=== PATIENT | female | born 1955 | race Caucasian/White ===

== ENCOUNTER → 2020-03-07 09:16 | Outpatient (CLI) | payer SELFPAY ==
--- NOTE | 2020-03-07 09:31 | RAD_ITS ---
EXAMINATION: UPPER GI SERIES INDICATION: Female, 64 years dysphagia. Recent thyroidectomy. FLUOROSCOPY TIME (if supplied): (0:41) minutes/seconds TECHNIQUE: Radiographic and fluoroscopic images of the distal esophagus, stomach, and proximal small intestine were obtained following the oral ingestion of barium. COMPARISON: None. FINDINGS: There is no evidence for organomegaly, abnormal calcifications, or abnormal bowel gas pattern. The psoas margins and flank stripes are normal. The patient is status post fusion in the lower cervical spine. The mucosa of the esophagus, stomach and duodenum is normal in appearance without evidence for stricture, ulceration, mass or diverticulum. There is no evidence for hiatal hernia or gastroesophageal reflux. IMPRESSION: 1. Normal upper gastrointestinal study. Electronically Signed: Alberto Huston, at 12:42 EST , Service support , STUDY: X-RAY - ESOPHAGUS (BARIUM SWALLOW) WITH FLUOROSCOPY REASON FOR EXAM: Female, 64 years old. THYROIDECTOMY 1 YR AGO, HAS TIGHT FEELING WHEN SWALLOWING LIQUIDS AND FOODS, DIFFICULT TO CLEAR THROAT AFTER TECHNIQUE: 6 view(s) of the esophagus were obtained following swallowing of barium. FLUOROSCOPY TIME (if supplied): (0:01) minutes/seconds COMPARISON: None. FINDINGS: There is no demonstrated esophageal foreign body. There is no demonstrated stricture or mucosal abnormality. Normal gastroesophageal junction, without a demonstrated hiatal hernia. Normal visualized aortic arch and descending thoracic aorta. Normal visualized pulmonary parenchyma. Normal visualized osseous structures of the thorax. RAD/Upper GI w/BA Swallow IMPRESSION: Normal plain film x-ray examination (barium swallow) of the esophagus. Electronically Signed: Alberto Huston, at 12:42 EST , Service support ,
== END ==
PROVIDERS: PCP Nurse Practitioner; Referring Provider Nurse Practitioner; Visit Provider Nurse Practitioner
DX: R05 Cough (principal)
CPT/HCPCS: 74246

== ENCOUNTER → 2020-05-04 18:21 | Outpatient (CLI) | payer SELFPAY ==
--- NOTE | 2020-05-04 18:27 | US_ITS ---
STUDY: SOFT TISSUE ULTRASOUND : REASON FOR EXAM: Female, 64 years old. NECK MASS BELOW AREA OF SCAR- S/P THYROIDECTOMY TECHNIQUE: Real-time exam with harris scale image documentation. COMPARISON: None. FINDINGS: No visualized thyroid tissue. In the left paratracheal area, thyroid fossa there is a 1.2 x 0.7 x 0.8 cm nonvascular solid nodule. US/Head/Neck Soft Tissue IMPRESSION: Solid 1.2 x 0.7 x 0.8 cm nonvascular nodule in the bed of the left thyroid status post thyroidectomy. No cystic component, calcification or other distinguishing features. Does not appear to have normal lymph node anatomy. Electronically Signed: Lisa Ng MD at 20:29 EST , Service support ,
== END ==
PROVIDERS: PCP Nurse Practitioner; Referring Provider Otolaryngology; Visit Provider Otolaryngology
DX: R22.1 Localized swelling, mass and lump, neck (principal)
CPT/HCPCS: 76536

== ENCOUNTER 2020-07-05 10:50 | Outpatient (RCR) | payer MEDICARE, SELFPAY ==
[2020-07-05] MEDS: COVID-19 VACC, MRNA(PFIZER)/PF 30 MCG/0.3 ML SYRINGE IM (15:30)
[2020-07-26] MEDS: COVID-19 VACC, MRNA(PFIZER)/PF 30 MCG/0.3 ML SYRINGE IM (15:00)
== END 2020-07-05 23:59 ==
LOC: IMMUN 10:50
PROVIDERS: PCP Nurse Practitioner; Visit Provider Family Medicine
DX: Z23 Encounter for immunization (principal)
CPT/HCPCS: 0001A; 0002A; 91300

== ENCOUNTER 2021-10-12 14:49 | Emergency (ER) | payer SELFPAY ==
[2021-10-12 14:50] VITALS: BP 158/106; PULSE 77; RESP 16; TEMP 36.6; O2SAT 98; BMI 21.9
[2021-10-12] MEDS: 0.9% Normal Saline 1,000 ML 1000 ML IV (16:11)
[2021-10-12] MEDS: DiphenhydrAMINE 50 MG/ML Syringe 25 MG IV (16:11)
[2021-10-12] MEDS: Ketorolac 30 MG/ML Syringe IV (16:11)
[2021-10-12] MEDS: Metoclopramide 10 MG/2 ML Vial IV (16:12)
[2021-10-12 16:27] LABS: Absolute Lymphocyte Count 0.46 X10^3/uL (0.83-4.51); Absolute Neutrophil Count 3.7 X10^3/uL (2.0-7.7); Basophil# 0.02 X10^3/uL; Basophil% 0.4 % (0-1); Hematocrit 39.8 % (37-47); Hemoglobin 13.5 g/dL (12.0-15.0); Lymphocyte # 0.46 X10^3/ul (0.83-4.51); Lymphocyte % 9.5 % (19-41); Mean Corp Hgb Conc 33.9 g/dL (32-36); Mean Corpuscular Hgb 31.5 pg (27.0-32.0); Mean Platelet Vol. 10.7 fl (6.2-12.0); Monocyte# 0.62 X10^3/uL; Monocyte% 12.8 % (0-10); NRBC Flagged by Analyzer 0 % (0-5); Neutrophil # 3.72 X10^3/uL (2.7-7.7); Neutrophil % 76.7 % (47-70); POSITIVE DIFFERENTIAL YES; Platelet Count 181 K/mm3 (150-450); RBC Distribution Width CV 12.1 % (11.6-14.6); RBC Distribution Width SD 41.5 fl (35.1-43.9); Red Blood Count 4.28 M/mm3 (4.2-5.4); White Blood Count 4.9 K/mm3 (4.4-11.0)
[2021-10-12 16:39] LABS: Differential Indicated SCAN CRITERIA MET
[2021-10-12 16:46] LABS: AST(SGOT) 21 U/L (15-37); Alanine Aminotransfer ALT/SGPT 26 U/L (13-56); Alkaline Phosphatase 74 U/L (45-117); Anion Gap 9 (5-15); BUN 10 mg/dL (7-18); BUN/Creat Ratio 12.3 RATIO (10-20); Bilirubin, Direct 0.14 mg/dL (0.00-0.30); Calcium,Total 8.3 mg/dL (8.5-10.1); Chloride 101 mmol/L (98-107); Creatinine, Serum 0.82 mg/dL (0.55-1.02); EST Glomerular Filtration Rate 75 mL/min (>60); Est Glom Filt Rate - Afr Amer 91 mL/min (>60); Estimated Creatinine Clearance 54.82 ml/min; Globulin 3.4 g/dL (2.2-4.2); Glucose 115 mg/dL (74-106); Potassium 3.6 mmol/L (3.5-5.1); Protein, Total 7.4 g/dL (6.4-8.2); Sodium Level 134 mmol/L (136-145)
--- NOTE | 2021-10-12 17:11 | EX.ED.DYSGE1 ---
HPI History of Present Illness Chief Complaint: Nausea/Vomiting Informant: patient Onset/Context/Timing Onset: Yesterday Context: Gradual Onset Current Severity: Mild Maximum Severity: Moderate Narrative Narrative: Patient presents with nausea and vomiting as well as muscle cramps. She tested positive for COVID yesterday after waking yesterday morning with mild symptoms. They progressed throughout the day. Her had been diagnosed with COVID earlier in the week. She states her doctor called in a prescription for Paxlovid. After taking the first dose she developed nausea and vomiting. She complains of a headache and myalgias. She has had a temperature up to mid 99 range. No diarrhea. [facility] Medical History Anxiety Back pain Breast lump GERD (gastroesophageal reflux disease) Headache Hyperlipidemia Hypernatremia Hypertension Hypoglycemia IBS (irritable bowel syndrome) Postoperative primary hypothyroidism Seasonal allergies UTI (urinary tract infection) Home Medications cholecalciferol (vitamin D3) 25 mcg (1,000 unit) capsule 25 mcg PO DAILY 10/25/20 [History Last Taken Unknown] diphenhydramine HCl 25 mg tablet (Benadryl Allergy) 25 mg PO .prn PRN Headache 10/25/20 [History Last Taken Unknown] gabapentin 300 mg capsule 300 mg PO QHS 10/25/20 [History Last Taken Unknown] ibuprofen 400 mg tablet 400 mg PO Q8H PRN Pain 10/25/20 [History Last Taken Unknown] levothyroxine 88 mcg tablet 88 mcg PO DAILY 10/25/20 [History Last Taken Unknown] trazodone 50 mg tablet 150 mg PO QHS 10/25/20 [History Last Taken Unknown] alprazolam 0.5 mg tablet (Xanax) 0.5 mg PO .as needed for flying #7 tabs 12/14/20 [Rx Last Taken Unknown] losartan 25 mg tablet 25 mg PO DAILY #30 tabs 06/26/21 [Rx Last Taken Unknown] benzonatate 200 mg capsule 200 mg PO TID PRN cough #30 caps 08/11/21 [Rx Last Taken Unknown] Allergy/AdvReac Type Severity Reaction Status Date / Time amoxicillin [From Augmentin] AdvReac Intermediate diarrhea Verified 10/12/21 14:52 clavulanic acid AdvReac Intermediate diarrhea Verified 10/12/21 14:52 [From Augmentin] Family History Grandmother Anxiety Diabetes High cholesterol CVA (cerebral vascular accident) Mother Cancer Father Depression Hypertension Kidney disease Sister Depression Hypertension Brother Depression Aunt Ovarian cancer Grandfather Myocardial infarction Surgical History H/O dilation and curettage H/O removal of cyst H/O shoulder surgery H/O spinal fusion H/O thyroidectomy Social History Smoking Status: Never smoker alcohol intake: current alcohol intake frequency: a few times a week substance use type: does not use what type of physical activity do you participate in: walking ROS ROS ED Constitutional Constitutional ED: Denies chills or fever(s) Eyes Eyes: Denies change in vision or discharge from eye(s) ENT ENT ED: Denies discharge from eye(s), rhinorrhea or sore throat Cardiovascular Cardiovascular: Denies chest pain or palpitations Respiratory/Chest Respiratory/Chest: Reports cough; Denies dyspnea Gastrointestinal Gastrointestinal: Reports nausea and vomiting; Denies diarrhea Genitourinary Genitourinary ED: Denies difficulty urinating or dysuria Musculoskeletal Musculoskeletal: Reports myalgias Integumentary Denies Abrasions or rash Neurologic Neurologic: Reports headache(s) and weakness Allergic/Immunologic Allergic/Immunologic ED: Denies lip swelling or urticaria EXAM Physical Exam Const Vital Signs: 10/12/21 14:50 Temperature 97.9 F Temperature Source Temporal Pulse Rate 77 Respiratory Rate 16 Blood Pressure 158/106 H Blood Pressure Mean 123 Pulse Ox 98 Oxygen Delivery Method Room Air Positive well nourished and well developed General Appearance ED: well developed HEENT Reports normocephalic and head/scalp atraumatic Eyes PERRL and EOMs intact bilaterally Neck supple Chest Wall inspection of chest normal and palpation of chest normal Resp normal respiratory effort and clear to auscultation bilaterally Cardio regular rate and regular rhythm GI non-tender and non-distended Auscultation: hypoactive bowel sounds Palpation: soft Extremity normal to inspection Neuro oriented x3 and no sensory deficits noted Sensorium / Orientation: alert Motor Exam: strength 5/5 throughout Psych mental status grossly normal Skin no rashes or lesions noted MDM MDM MDM Narrative Medical decision making narrative: Patient given IV fluids along with Toradol, Reglan, Benadryl. Lab work obtained. Lab Data Attestation: I reviewed the patient's lab results. Labs: Laboratory Results - last 24 hr 10/12/21 10/12/21 16:18 16:18 WBC 4.9 RBC 4.28 Hgb 13.5 Hct 39.8 MCV 93.0 MCH 31.5 MCHC 33.9 RDW Std Deviation 41.5 RDW Coeff of Kaitlynn 12.1 Plt Count 181 MPV 10.7 Immature Gran % (Auto) 0.600 Neut % (Auto) 76.7 H Lymph % (Auto) 9.5 L [place]yenne % (Auto) 12.8 H Eos % (Auto) 0.0 Baso % (Auto) 0.4 Absolute Neuts (auto) 3.7 Absolute Lymphs (auto) 0.46 L Nucleated RBC % 0 Differential Comment SCANNED Sodium 134 L Potassium 3.6 Chloride 101 Carbon Dioxide 24.0 Anion Gap 9 BUN 10 Creatinine 0.82 Estim Creat Clear Calc 54.82 Est GFR (MDRD) Af Amer 91 Est GFR (MDRD) Non-Af 75 BUN/Creatinine Ratio 12.3 Glucose 115 H Calcium 8.3 L Total Bilirubin 0.30 Direct Bilirubin 0.14 AST 21 ALT 26 Alkaline Phosphatase 74 Total Protein 7.4 Albumin 4.0 Globulin 3.4 Treatment and Re-Evaluation Narrative: On repeat evaluation patient reports feeling much improved. Lab work is unremarkable. She has Zofran at home that she can use as needed for nausea. She states she does not plan to take Paxlovid any further. She will continue with supportive care and return instructions are provided. Discharge Plan Triage Chief Complaint: Nausea/Vomiting ED Provider: Genie Dumont Dx/Rx/DC Orders Clinical Impression: COVID-19, Vomiting, Headache Instructions: Coronavirus Disease 2019 (COVID-19): Overview, Coronavirus Disease 2019 (COVID-19): Caring for Yourself or Others Prescriptions: No Action gabapentin 300 mg capsule 300 mg PO QHS trazodone 50 mg tablet 150 mg PO QHS levothyroxine 88 mcg tablet 88 mcg PO DAILY diphenhydramine HCl [Benadryl Allergy] 25 mg tablet 25 mg PO .prn PRN (Reason: Headache) cholecalciferol (vitamin D3) 25 mcg (1,000 unit) capsule 25 mcg PO DAILY ibuprofen 400 mg tablet 400 mg PO Q8H PRN (Reason: Pain) alprazolam [Xanax] 0.5 mg tablet 0.5 mg PO .as needed for flying Qty: 7 0RF benzonatate 200 mg capsule 200 mg PO TID PRN (Reason: cough) Qty: 30 0RF losartan 25 mg tablet 25 mg PO DAILY Qty: 30 5RF Primary Care Provider: Clarissa Amato NP Referrals: Clarissa Amato NP, [employer]ATOR-[facility] [Primary Care Provider] - 1-2 Weeks Disposition Disposition: Home, Self Care Discharge Date/Time: 10/12/21 17:52
[2021-10-12 17:15] LABS: Differential Comment SCANNED
== END 2021-10-12 17:52 | disposition home or self-care (01) ==
PROVIDERS: Emergency Provider Emergency Medicine; PCP Nurse Practitioner; Visit Provider Emergency Medicine
DX: U07.1 COVID-19 (principal); R11.10 Vomiting, unspecified; R51.9 Headache, unspecified; I10 Essential (primary) hypertension; Z79.899 Other long term (current) drug therapy
CPT/HCPCS: 80048; 80076; 85025; 96361; 96374; 96375; 99285

== ENCOUNTER → 2021-12-25 | Outpatient (CLI) | payer MEDICARE, SELFPAY ==
--- NOTE | 2021-12-25 14:49 | NEURO ---
NCS and/or EMG Patient Report Ordering Doctor: Remy Stiles DATE OF SERVICE: 12/25/21 Lillian presents for electrodiagnostic testing of the left upper limb. She reports pain and weakness in the left hand and arm. Electrodiagnostic findings: Left median motor nerve demonstrates normal distal latency, amplitude and conduction velocity. Normal left ulnar motor response, including conduction across the elbow. Normal median and ulnar F waves. Sensory responses are within normal limits. On needle EMG, all muscles tested in the left upper limb showed no evidence of denervation with normal motor unit action potentials. Electrodiagnostic impression: This is a normal electrodiagnostic study of the left upper limb. There is no electrodiagnostic evidence for peripheral neuropathy, including carpal tunnel syndrome. There is no electrodiagnostic evidence for cervical radiculopathy.
== END | disposition home or self-care (01) ==
PROVIDERS: PCP Family Medicine; Referring Provider Family Medicine; Visit Provider Family Medicine
DX: R20.2 Paresthesia of skin (principal); R20.0 Anesthesia of skin
CPT/HCPCS: 95886; 95910

== ENCOUNTER 2022-02-21 11:25 | Day surgery (SDC) | payer MEDICARE, SELFPAY ==
[2022-02-21 11:55] VITALS: BP 138/73; PULSE 52; RESP 16; TEMP 36.8; O2SAT 99; BMI 21.9
[2022-02-21] MEDS: Lactated Ringers 1,000 ML 15 ML IV (12:00)
[2022-02-21] MEDS: Cefazolin 2 GM in 0.9% Normal Saline 100 ML IV (12:45)
--- NOTE | 2022-02-21 13:00 | NEUR_PTH ---
PATIENT: MICHAEL VELAZQUEZ LOC: [facility] [place] U#:[id number] AGE/SX: 66/F ROOM: RE02/21/[address]: Dr. Anjelica Sanchez DPM : 1955 BED: DIS: 02/21/2022 SPEC #: [id number] RECD: 02/21/22 15:16 STATUS: [place] REMatilda #: [id number] BROOKE: 02/21/22 13:[address]: Anjelica Sanchez DEPT: SURGICAL PATHOLOGY RECD BY: Mary Lou Chaudhry ENTERED: 02/24/22 08:40 SP TYPE: NEUROMA OTHR DR: Dr. Remy Stiles MD Tissues: A - NEUROMA B - NEUROMA Procedures: Surgery Specimen Level III HEADER OPERATION: Excision, neuroma, feet PRE-OP DIAGNOSIS: Neuroma of foot, bilateral TISSUE SUBMITTED: A ? Left foot neuroma, B ? Right foot neuroma MICROSCOPIC DIAGNOSIS A. Soft tissue of left foot, excision: Consistent with neuroma. B. Soft tissue of right foot, excision: Consistent with neuroma. AM:millicent 02/25/2022 MICROSCOPIC DESCRIPTION Slides are reviewed. GROSS DESCRIPTION A - Received in fixative is one container labeled with the patient's name and designated neuroma left foot. The specimen consists of an irregular fragment of yellow-white soft tissue measuring 2.4 x 1 x 0.8 cm. The specimen is sectioned and totally submitted in one cassette. B - Received in fixative is one container labeled with the patient's name and designated neuroma right foot. The specimen consists of two irregular fragments of yellow-white soft tissue measuring in aggregate 2.5 x 1 x 0.8 cm. The specimen is totally submitted in one cassette. / AM:millicent 02/24/2022 TC:5 [facility]: [id number] x2
[2022-02-21] MEDS: Lidocaine 1% (30 ml sdv) 30 ML Vial (13:09)
[2022-02-21 14:10] VITALS: BP 138/73; PULSE 61; RESP 16; TEMP 36.5; O2SAT 96
[2022-02-21 14:15] VITALS: BP 128/72; BP 138/73; PULSE 71; RESP 16; O2SAT 95
[2022-02-21 14:30] VITALS: BP 125/94; BP 136/77; BP 138/73; PULSE 66; PULSE 70; RESP 15; RESP 16; O2SAT 100
--- NOTE | 2022-02-21 14:37 | OP.PCM_ITS ---
Report of Operation Date of Procedure: 02/21/22 Pre-Operative Diagnosis: bilateral neuroma 3rd intermetatarsal spaces Post-Operative Diagnosis: same Surgery/Procedure Performed:: excision bilateral 3rd intermetatarsal spaces Description of Surgical Findings:: large rubbery white/yellow lesions removed consistent with neuromas Surgeon: Anjelica Sanchez combination machine tender: None Type of Anesthesia: General Specimen's removed: neuroma, soft tissue Drains: none Estimated Blood Loss (mL): <5cc's Description of Procedure: 3cm linear longitudinal incision performed dorsal to the left 3rd IM space following general anesthesia and feet being scrubbed, prepped, and draped. Ankle tourniquet inflated to 250 mmHg. Incision deepened through blunt dissection to the neuroma which was dissected free from soft tissue attachments and excised. It was sent to pathology. Wound was flushed with NSS. Deep structured were reapproximated and coapted utilizing 3-0 vicryl sutures. Subcutaneous tissue reapproximately and coapted with same sutures. Skin was reapproximated and coapted with 4-0 monocryl sutures. Incision was reinforced with steri strips. Post operative block consisting of 5 cc's of 1% lidocaine plain was infiltrated. Similar procedure performed to right foot including excision of lesion and closure. Both incisions were then dressed with xeroform, 4x4 gauze, 2 rolled gauze, and kerlix. Shane wraps applied. Tourniquets removed and prompt hyperemic responses seen to all digits of both feet. Shane wraps applied. Pt tolerated anesthesia and procedure well. She was transferred to PACU with vital signs stable and vascular status intact to all toes of both feet. She will follow with Dr. Sanchez for post operative care and any problems. Grafts/Implants Used: none Complications none Admit VTE Documentation VTE Present on Admission: No VTE Pharm Prophylaxis ordered?: No Reason prophylaxis not ordered:: Procedure Not Indicated
[2022-02-21 14:51] VITALS: BP 125/81; BP 138/73; PULSE 70; RESP 16; TEMP 36.4; O2SAT 97
--- NOTE | 2022-02-21 15:20 | CHAPLAIN ---
Type of Pastoral Visit ___ Initial Visit ___ Follow-up Visit ___ On-call Visit ___ General Patient Visit ___ Spiritual Assessment ___ Family Conference ___ Bereavement ___ Rapid Response ___ Code Blue _x__ Other (describe below) Pastoral Care Referral From ___ Patient _x__ Family ___ Nurse ___ Physician ___ Carbonating Stone Cleaner ___ Heel Cementer ___ Other (describe below) Sacrament/Intervention _x__ Active listening ___ Anointing ___ Jehovah'S Witness ___ Bereavement ___ Communion ___ Lizy exploration ___ ___ Life review ___ Prayer ___ Reconciliation ___ Sacrament of Sick _x__ Supportive presence ___ Wedding ___ Other (describe below) Pastoral Comments sat with family member by request during brief portion of surgery for patient; offered presence and support; no other further needs
[2022-02-21 15:50] VITALS: BP 138/73; BP 151/91; PULSE 68; RESP 16; TEMP 36.6; O2SAT 99
== END 2022-02-21 16:14 | disposition home or self-care (01) ==
LOC: SDC 11:28 → AC 11:31
PROVIDERS: PCP Family Medicine; Visit Provider Podiatrist
PROC: (CPT 28080; principal; 2022-02-21 12:50)
DX: G57.63 Lesion of plantar nerve, bilateral lower limbs (principal); I10 Essential (primary) hypertension; E03.9 Hypothyroidism, unspecified; K21.9 Gastro-esophageal reflux disease without esophagitis; F41.9 Anxiety disorder, unspecified; K58.9 Irritable bowel syndrome, unspecified; E78.5 Hyperlipidemia, unspecified; F32.9 Major depressive disorder, single episode, unspecified; G25.81 Restless legs syndrome; G47.00 Insomnia, unspecified; Z78.0 Asymptomatic menopausal state; Z79.899 Other long term (current) drug therapy
CPT/HCPCS: 28080 ×2; 01470; 88304; J7120; J2405

== ENCOUNTER 2022-06-29 13:22 | Emergency (ER) | payer MEDICARE, SELFPAY ==
[2022-06-29 13:23] VITALS: BP 189/103; PULSE 60; RESP 18; TEMP 36.6; O2SAT 100; BMI 25.8
--- NOTE | 2022-06-29 13:47 | CT_ITS ---
EXAM: CT CERVICAL SPINE WITHOUT INTRAVENOUS CONTRAST CLINICAL INDICATION: fall down steps, neck pain TECHNIQUE: Helically acquired images were obtained of the cervical spine without intravenous contrast. 2D reformatted images were reviewed. This CT exam was performed using one or more of the following dose reduction techniques: automated exposure control, adjustment of the mA and/or kV according to patient size, and/or use of iterative reconstruction technique. This report was created using [employer] report generation technology. RADIATION DOSE: CTDIvol = 17.02 mGy, DLP = 343.19 mGy-cm. COMPARISON: None. FINDINGS: VERTEBRAE: Moderate bilateral multilevel vertebral facet arthropathy. No fracture. No traumatic subluxation. No discrete lytic or blastic abnormality. Normal alignment. Normal craniocervical junction and cervicothoracic junction. DISCS/SPINAL CANAL/NEURAL FORAMINA: Anterior cervical fusion C5-C6 and C6-C7 with anterior plate and screws and interbody fixation devices. No critical stenosis. SOFT TISSUES: Unremarkable. No prevertebral soft tissue swelling. LYMPH NODES: Unremarkable. No cervical adenopathy. LUNG APICES: Unremarkable as visualized. Clear. CT/Spine Cervical without Contras IMPRESSION: 1. Anterior cervical fusion C5-C6 and C6-C7 with anterior plate and screws and interbody fixation devices. 2. Moderate bilateral multilevel vertebral facet arthropathy. 3. No acute fractures or subluxations. Electronically Signed: Efraín Martel MD at 14:50 EDT ,
--- NOTE | 2022-06-29 13:47 | RAD_ITS ---
EXAM: XR RIGHT KNEE, 1 OR 2 VIEWS CLINICAL INDICATION: fall, pain TECHNIQUE: Frontal and/or lateral views of the right knee. This report was created using [employer] report generation technology. COMPARISON: None. FINDINGS: BONES/JOINTS: Unremarkable. No acute fracture. No subluxation. Normal alignment. Preservation of the joint space. No sclerotic or destructive changes observed. SOFT TISSUES: Unremarkable. No soft tissue swelling or gas. No radiopaque foreign body. RAD/Knee 1 or 2 Views IMPRESSION: Negative right knee x-rays. Electronically Signed: Efraín Martel MD at 15:10 EDT ,
--- NOTE | 2022-06-29 13:47 | CT_ITS ---
EXAM: CT HEAD WITHOUT INTRAVENOUS CONTRAST CLINICAL INDICATION: fall down steps, hit head TECHNIQUE: Multiple axial images were obtained of the head without intravenous contrast. This CT exam was performed using one or more of the following dose reduction techniques: automated exposure control, adjustment of the mA and/or kV according to patient size, and/or use of iterative reconstruction technique. This report was created using [employer] report generation technology. RADIATION DOSE: CTDIvol = 44.99 mGy, DLP = 779.24 mGy-cm. COMPARISON: None. FINDINGS: BRAIN AND EXTRA-AXIAL SPACES: Mild generalized atrophy. Mild low density bilaterally in the deep white matter. No intra- or extra-axial hemorrhage. No evidence of acute infarct. No intracranial mass or mass effect. There is preservation of the harris/white matter interface. Posterior fossa structures are unremarkable. No hydrocephalus. Basal cisterns are patent. BONES/JOINTS: Unremarkable. No discrete lytic or blastic abnormalities. SINUSES: Unremarkable as visualized. Clear. MASTOID AIR CELLS: Unremarkable. Clear. ORBITS: Visualized globes, extraocular muscles, optic nerves and retrobulbar fat appear unremarkable. CT/Brain/Head without Contrast IMPRESSION: Mild generalized atrophy. Mild low density bilaterally in the deep white matter. This likely represents chronic small vessel ischemic changes in the deep white matter. Electronically Signed: Efraín Martel MD at 14:39 EDT ,
--- NOTE | 2022-06-29 13:47 | RAD_ITS ---
STUDY: X-RAY - UNILATERAL RIBS ( RIGHT ) WITH CHEST REASON FOR EXAM: Female, 66 years old. fall, pain TECHNIQUE - RIBS: 4 view(s) of the ribs. TECHNIQUE - CHEST: Single PA view of the chest. COMPARISON: None. FINDINGS - RIBS: Normal visualized ribs without a demonstrated fracture. FINDINGS - CHEST: Status post anterior cervical discectomy and fusion the lower cervical spine. The lungs are clear and expanded. There is no demonstrated pleural abnormality. Normal size heart. Normal mediastinum and lynnette. Normal visualized pulmonary arteries. Normal visualized aortic arch and descending thoracic aorta. Normal visualized thoracic spine. Normal visualized ribs, clavicles, and shoulders. There is no demonstrated abnormality of the visualized soft tissue structures of the upper abdomen. RAD/Ribs Uni Min 3V w/PA Chest IMPRESSION: RIBS: Normal x-ray examination of the ribs. CHEST: Normal x-ray examination of the chest. Electronically Signed: Cain Sky MD at 15:01 EDT ,
--- NOTE | 2022-06-29 13:47 | RAD_ITS ---
EXAM: XR LUMBOSACRAL SPINE, 4 OR 5 VIEWS CLINICAL INDICATION: fall, pain TECHNIQUE: Frontal, lateral and bilateral oblique views of the lumbar spine. This report was created using [employer] report generation technology. COMPARISON: None. FINDINGS: VERTEBRAE: Unremarkable. Preserved vertebral body height. No fracture. No spondylolisthesis. Preservation of the normal lumbar lordosis. No significant facet arthropathy. DISC SPACES: No acute findings. Disc spaces are maintained. GASTROINTESTINAL TRACT: Unremarkable as visualized. Included bowel gas pattern is non-obstructive. RAD/L/S Spine Min 4 Views IMPRESSION: No evidence of lumbar spinal fracture or spondylolisthesis. Electronically Signed: Efraín Martel MD at 15:11 EDT ,
[2022-06-29 13:55] VITALS: BP 145/96; PULSE 61; RESP 18; O2SAT 100
[2022-06-29] MEDS: Morphine 4 MG/ML Syringe IM (13:57)
--- NOTE | 2022-06-29 13:58 | EX.ED.GENINJ ---
HPI <FRANCES Luciano - Last Filed: 06/29/22 19:11> History of Present Illness Chief Complaint: Fall Narrative Narrative: Patient presenting today after falling down 10 of her basement steps headfirst. She states that she was just getting home from [place] and she walked into her house which is near the entrance of the basement. She noticed that the rug to the entrance of the basement was crooked so she tried to straighten it out with her foot but was very close to the entrance of the basement and she lost her balance and fell. She states she was unable to get up and had her call 911. She denies loss of consciousness, use of blood thinners, any seizure-like activity. She reports pain along the right side of her back, right hip, and right knee. She denies any recent illness, chest pain, head pain, neck pain, shortness of breath, and abdominal pain. [facility] <FRANCES Luciano - Last Filed: 06/29/22 19:11> [facility] Medical History (Updated 06/29/22 @ 23:[address] Villa Youssef MD) Alcohol use Anxiety Back pain Breast lump Depression GERD (gastroesophageal reflux disease) Headache Heartburn Hyperlipidemia Hypernatremia Hypertension Hypoglycemia IBS (irritable bowel syndrome) Leg cramps Non-smoker Post-menopausal Postoperative primary hypothyroidism Restless legs Seasonal allergies Thyroid disease UTI (urinary tract infection) Wears glasses Home Medications cholecalciferol (vitamin D3) 25 mcg (1,000 unit) capsule 25 mcg PO DAILY 10/25/20 [History Last Taken Unknown] diphenhydramine HCl 25 mg tablet (Benadryl Allergy) 25 mg PO .prn PRN Headache 10/25/20 [History Last Taken Unknown] gabapentin 300 mg capsule 300 mg PO QHS 10/25/20 [History Last Taken Unknown] levothyroxine 88 mcg tablet 88 mcg PO DAILY 10/25/20 [History Last Taken Unknown] trazodone 50 mg tablet 150 mg PO QHS 10/25/20 [History Last Taken Unknown] alprazolam 0.5 mg tablet (Xanax) 0.5 mg PO .as needed for flying #7 tabs 12/14/20 [Rx Last Taken Unknown] losartan 25 mg tablet 25 mg PO DAILY #30 tabs 06/26/21 [Rx Last Taken Unknown] benzonatate 200 mg capsule 200 mg PO TID PRN cough #30 caps 08/11/21 [Rx Last Taken Unknown] oxycodone-acetaminophen 5 mg-325 mg tablet (Endocet) 1 tab PO Q8H PRN pain 5 days #14 tabs 06/29/22 [Rx Last Taken Unknown] Allergy/AdvReac Type Severity Reaction Status Date / Time amoxicillin [From Augmentin] AdvReac Intermediate diarrhea Verified 06/29/22 13:23 clavulanic acid AdvReac Intermediate diarrhea Verified 06/29/22 13:23 [From Augmentin] Family History Grandmother Anxiety Diabetes High cholesterol CVA (cerebral vascular accident) Mother Cancer Father Depression Hypertension Kidney disease Sister Depression Hypertension Brother Depression Aunt Ovarian cancer Grandfather Myocardial infarction Surgical History H/O dilation and curettage H/O removal of cyst H/O shoulder surgery H/O spinal fusion H/O thyroidectomy Social History Smoking Status: Never smoker alcohol intake: current alcohol intake frequency: a few times a week substance use type: does not use what type of physical activity do you participate in: walking ROS <FRANCES Luciano - Last Filed: 06/29/22 19:11> ROS ED Constitutional Constitutional ED: Denies chills, fever(s) or sweats Eyes Eyes: Denies blurry vision or diplopia Cardiovascular Cardiovascular: Denies chest pain or palpitations Respiratory/Chest Respiratory/Chest: Denies cough or dyspnea Gastrointestinal Gastrointestinal: Denies abdominal pain, nausea or vomiting Genitourinary Genitourinary ED: Denies dysuria, hematuria or urinary urgency Musculoskeletal Musculoskeletal: Reports arthralgias, back pain and myalgias; Denies neck pain Integumentary Denies abscess, Abrasions or rash Neurologic Neurologic: Denies confusion, dizziness or paresthesias Psychiatric Psychiatric: Denies anxiety or depression EXAM <FRANCES Luciano - Last Filed: 06/29/22 19:11> Physical Exam Const Vital Signs: 06/29/22 13:23 06/29/22 13:55 06/29/22 15:31 Temperature 97.8 F Temperature Source Temporal Pulse Rate 60 61 56 L Respiratory Rate 18 18 18 Blood Pressure 189/103 H 145/96 H 161/102 H Blood Pressure Mean 131 112 121 Pulse Ox 100 100 99 Oxygen Delivery Method Room Air Room Air 06/29/22 17:34 Temperature Temperature Source Pulse Rate 67 Respiratory Rate 18 Blood Pressure 168/104 H Blood Pressure Mean 125 Pulse Ox 98 Oxygen Delivery Method Room Air Positive well nourished and well developed General Appearance ED: well developed HEENT Reports normocephalic and head/scalp atraumatic Mouth ED: Yes moist mucous membranes normal Eyes PERRL and EOMs intact bilaterally Neck full ROM and supple Chest Wall inspection of chest normal Resp normal respiratory effort and clear to auscultation bilaterally Cardio regular rate and regular rhythm GI soft to palpation, non-distended and no masses GI Narrative: Some generalized abdominal tenderness to palpation. Back/Spine normal ROM Back/Spine Narrative: Ecchymosis and edema around the sacral spine. Tenderness to palpation along the lumbar and sacral spine as well as the right lateral rib cage. No tenderness to palpation of the cervical spine. Extremity full ROM Extremity Narrative: Slight ecchymosis to the right knee as well as tender to palpation to the right knee. Patient has tenderness to palpation in her right hip. Negative log roll, full range of motion to the right knee. Neuro oriented x3, CN's II-XII intact bilaterally, moves all extremities, no focal motor deficits and no sensory deficits noted Sensorium / Orientation: awake and alert Psych mental status grossly normal and thought process normal Skin no rashes or lesions noted and no wounds <Dr. Villa Youssef MD - Last Filed: 06/29/22 23:37> Physical Exam Const Vital Signs: 06/29/22 13:23 06/29/22 13:55 06/29/22 15:31 Temperature 97.8 F Temperature Source Temporal Pulse Rate 60 61 56 L Respiratory Rate 18 18 18 Blood Pressure 189/103 H 145/96 H 161/102 H Blood Pressure Mean 131 112 121 Pulse Ox 100 100 99 Oxygen Delivery Method Room Air Room Air 06/29/22 17:34 Temperature Temperature Source Pulse Rate 67 Respiratory Rate 18 Blood Pressure 168/104 H Blood Pressure Mean 125 Pulse Ox 98 Oxygen Delivery Method Room Air MDM <FRANCES Luciano - Last Filed: 03/12/23 19:11> MDM MDM Narrative Medical decision making narrative: Patient presenting after falling down her basement stairs this morning after [place]. It was a mechanical fall as she was trying to straighten a rug with her leg that was in front of the entrance to the basement stairs and was standing too close to the entrance to the basement when she lost her balance and fell. She is complaining of pain to her right lateral rib cage, sacrum, right hip, and right knee. X-rays will be obtained to rule out fracture or dislocation. She has been given pain control. Repeat examination patient did have tenderness to palpation in her abdomen. Because of her abdominal tenderness CT scan of the abdomen and pelvis will be obtained to rule out any abdominal trauma and shows no acute fracture or internal organ laceration. X-ray of the right knee, right hip/pelvis, right rib cage, lumbar/sacral spine, without fracture or dislocation. CBC without any leukocytosis or anemia, BMP unremarkable. Head CT negative for any intracranial bleeding, cervical spine CT negative for any fracture. Patient has a sacral contusion. She has been given additional pain control. She is able to ambulate without difficulty. She will be sent home with a prescription for pain control and RICE instructions. She is to follow-up with her PCP. She has been given return precautions. She will be discharged home in stable condition is comfortable with plan. Pain medication originally sent to [facility] but because it was 5:30 PM on a Thursday, I realized that they were going to close soon so I canceled the transmission to that pharmacy and had it sent to the pharmacy here at the hospital. The pharmacy here would not fill it because [facility] already had even though patient did not pick it up. Therefore, I did resend the prescription to [facility] pharmacy since I had canceled the original one. Patient was given additional pain control prior to leaving the hospital. Lab Data Attestation: I reviewed the patient's lab results. Labs: Laboratory Results - last 24 hr 06/29/22 06/29/22 15:36 15:36 WBC 7.9 RBC 4.13 L Hgb 13.0 Hct 38.3 MCV 92.7 MCH 31.5 MCHC 33.9 RDW Std Deviation 41.6 RDW Coeff of Kaitlynn 12.2 Plt Count 231 MPV 10.0 Immature Gran % (Auto) 0.900 Neut % (Auto) 75.1 H Lymph % (Auto) 16.2 L [place] % (Auto) 5.9 Eos % (Auto) 0.9 Baso % (Auto) 1.0 Absolute Neuts (auto) 5.9 Absolute Lymphs (auto) 1.28 Nucleated RBC % 0 Sodium 145 Potassium 3.7 Chloride 107 Carbon Dioxide 30.0 Anion Gap 8 BUN 12 Creatinine 0.95 Estim Creat Clear Calc 46.69 Est GFR (MDRD) Af Amer 75 Est GFR (MDRD) Non-Af 62 BUN/Creatinine Ratio 12.6 Glucose 104 Calcium 8.9 Radiography Diagnostic Testing: Clinical Impression(s) from Imaging Studies Brain CT 06/29/22 13:47 IMPRESSION: Mild generalized atrophy. Mild low density bilaterally in the deep white matter. This likely represents chronic small vessel ischemic changes in the deep white matter. Electronically Signed: Efraín Martel MD at 14:39 EDT Reading Location ID and State: [employer] [place] / [employer] , Service support , Cervical Spine CT 06/29/22 13:47 IMPRESSION: 1. Anterior cervical fusion C5-C6 and C6-C7 with anterior plate and screws and interbody fixation devices. 2. Moderate bilateral multilevel vertebral facet arthropathy. 3. No acute fractures or subluxations. Electronically Signed: Efraín Martel MD at 14:50 EDT Reading Location ID and State: [employer] [place] / [employer] , Service support , Knee X-Ray 06/29/22 13:47 IMPRESSION: Negative right knee x-rays. Electronically Signed: Efraín Martel MD at 15:10 EDT Reading Location ID and State: [employer] / [employer] , Service support , Lumbar Spine X-Ray 06/29/22 13:47 IMPRESSION: No evidence of lumbar spinal fracture or spondylolisthesis. Electronically Signed: Efraín Martel MD at 15:11 EDT Reading Location ID and State: [employer] / [employer] , Service support , Ribs w/Chest X-Ray 06/29/22 13:47 IMPRESSION: RIBS: Normal x-ray examination of the ribs. CHEST: Normal x-ray examination of the chest. Electronically Signed: Cain Sky MD at 15:01 EDT , Hip/Pelvis X-Ray 06/29/22 14:19 IMPRESSION: No evidence of displaced pelvic or hip fracture. Electronically Signed: Efraín Martel MD at 15:10 EDT , Abdomen/Pelvis CT 06/29/22 15:11 IMPRESSION: No hepatic, splenic or renal laceration. No acute fracture identified. Streaky bruising or scarring within the subcutaneous fat overlying the proximal right femur. Minimal sigmoid diverticulosis without evidence for acute diverticulitis. Electronically Signed: Amos Hollis MD at 16:16 EDT , All imaging reviewed and interpreted by attending ED physician. <Dr. Villa Youssef MD - Last Filed: 06/29/22 23:37> [facility] Lab Data Labs: Laboratory Results - last 24 hr 06/29/22 06/29/22 15:36 15:36 WBC 7.9 RBC 4.13 L Hgb 13.0 Hct 38.3 MCV 92.7 MCH 31.5 MCHC 33.9 RDW Std Deviation 41.6 RDW Coeff of Kaitlynn 12.2 Plt Count 231 MPV 10.0 Immature Gran % (Auto) 0.900 Neut % (Auto) 75.1 H Lymph % (Auto) 16.2 L [place] % (Auto) 5.9 Eos % (Auto) 0.9 Baso % (Auto) 1.0 Absolute Neuts (auto) 5.9 Absolute Lymphs (auto) 1.28 Nucleated RBC % 0 Sodium 145 Potassium 3.7 Chloride 107 Carbon Dioxide 30.0 Anion Gap 8 BUN 12 Creatinine 0.95 Estim Creat Clear Calc 46.69 Est GFR (MDRD) Af Amer 75 Est GFR (MDRD) Non-Af 62 BUN/Creatinine Ratio 12.6 Glucose 104 Calcium 8.9 Radiography Diagnostic Testing: Clinical Impression(s) from Imaging Studies Brain CT 06/29/22 13:47 IMPRESSION: Mild generalized atrophy. Mild low density bilaterally in the deep white matter. This likely represents chronic small vessel ischemic changes in the deep white matter. Electronically Signed: Efraín Martel MD at 14:39 EDT Reading Location ID and State: [employer] [place] / [employer] , Service support , Cervical Spine CT 06/29/22 13:47 IMPRESSION: 1. Anterior cervical fusion C5-C6 and C6-C7 with anterior plate and screws and interbody fixation devices. 2. Moderate bilateral multilevel vertebral facet arthropathy. 3. No acute fractures or subluxations. Electronically Signed: Efraín Martel MD at 14:50 EDT Reading Location ID and State: [employer] [place] / [employer] , Service support , Knee X-Ray 06/29/22 13:47 IMPRESSION: Negative right knee x-rays. Electronically Signed: Efraín Martel MD at 15:10 EDT Reading Location ID and State: [employer] [place] / [employer] , Service support , Lumbar Spine X-Ray 06/29/22 13:47 IMPRESSION: No evidence of lumbar spinal fracture or spondylolisthesis. Electronically Signed: Efraín Martel MD at 15:11 EDT Reading Location ID and State: [employer] / [employer] , Service support , Ribs w/Chest X-Ray 06/29/22 13:47 IMPRESSION: RIBS: Normal x-ray examination of the ribs. CHEST: Normal x-ray examination of the chest. Electronically Signed: Cain Sky MD at 15:01 EDT , Hip/Pelvis X-Ray 06/29/22 14:19 IMPRESSION: No evidence of displaced pelvic or hip fracture. Electronically Signed: Efraín Martel MD at 15:10 EDT , Abdomen/Pelvis CT 06/29/22 15:11 IMPRESSION: No hepatic, splenic or renal laceration. No acute fracture identified. Streaky bruising or scarring within the subcutaneous fat overlying the proximal right femur. Minimal sigmoid diverticulosis without evidence for acute diverticulitis. Electronically Signed: Amos Hollis MD at 16:16 EDT , Treatment and Re-Evaluation Narrative: Seen and evaluated independently and in conjunction with physician sociology research assistant. Agree with notes above unless documented otherwise. Patient with multiple areas of pain and tenderness after falling down a flight of steps accidentally, but no objective signs of injury anywhere. She is not anticoagulated. She has not tried to bear weight before the evaluation here. On exam, GCS 15. Moving all 4 extremities, tender in the posterior aspect of the right hip, no groin pain with internal/external rotation. Mildly tender throughout the lower abdomen without distention or Win sign/Degroot Fitzgerald sign. Tender throughout the right low back as well as the sacrum area. Imaging of all the affected areas are negative including CT of the abdomen/pelvis with IV contrast. I reviewed the images on the CT head, cervical spine, abdomen/pelvis and agree with the radiologist interpretation that these are negative for any acute. There is evidence of soft tissue contusion behind her right hip. Low suspicion for an occult hip fracture. Able to walk, stable for discharge home with supportive care and prescription for analgesics given. Discharge Plan Triage Chief Complaint: Fall ED Midlevel Provider: Chanel Mcconnell ED Provider: Villa Youssef Dx/Rx/DC Orders Clinical Impression: Contusion of sacrum, Contusion of rib on right side, Contusion of knee, right, Contusion of buttock, Accidental fall on or from stairs or steps, Closed head injury without loss of consciousness Instructions: ED RICE Prescriptions: New oxycodone-acetaminophen [Endocet] 5-325 mg tablet 1 tab PO Q8H PRN (Reason: pain) 5 Days Qty: 14 0RF No Action gabapentin 300 mg capsule 300 mg PO QHS trazodone 50 mg tablet 150 mg PO QHS levothyroxine 88 mcg tablet 88 mcg PO DAILY diphenhydramine HCl [Benadryl Allergy] 25 mg tablet 25 mg PO .prn PRN (Reason: Headache) cholecalciferol (vitamin D3) 25 mcg (1,000 unit) capsule 25 mcg PO DAILY alprazolam [Xanax] 0.5 mg tablet 0.5 mg PO .as needed for flying Qty: 7 0RF benzonatate 200 mg capsule 200 mg PO TID PRN (Reason: cough) Qty: 30 0RF losartan 25 mg tablet 25 mg PO DAILY Qty: 30 5RF Primary Care Provider: Remy Stiles Referrals: Remy Stiles MD [Primary Care Provider] - 3-5 Days Activity Restrictions/Additional Instructions: Please follow-up with your PCP in 3 to 5 days. Rest, ice the area several times a day for the next few days. Return for any worsening of symptoms. Disposition Disposition: Home, Self Care Discharge Date/Time: 06/29/22 18:37
--- NOTE | 2022-06-29 14:19 | RAD_ITS ---
EXAM: XR RIGHT HIP WITH PELVIS WHEN PERFORMED, 2 OR 3 VIEWS CLINICAL INDICATION: fall, pain TECHNIQUE: Two or three views of the right hip with pelvis when performed. This report was created using [employer]fy report generation technology. COMPARISON: None. FINDINGS: BONES/JOINTS: Unremarkable. No displaced fracture. No destructive or sclerotic lesions. Note that overlapping bowel shadows may however obscure fine detail. Sacroiliac joint is unremarkable. No widening of the pubic symphysis. The articular structures are unremarkable. SOFT TISSUES: Unremarkable. No soft tissue swelling or gas. RAD/HIP, UNI W/ Pelvis 2-3 Views IMPRESSION: No evidence of displaced pelvic or hip fracture. Electronically Signed: Efraín Martel MD at 15:10 EDT ,
--- NOTE | 2022-06-29 15:11 | CT_ITS ---
EXAM: CT ABDOMEN AND PELVIS WITH INTRAVENOUS CONTRAST CLINICAL INDICATION: abdominal pain, abdominal trauma due to injury TECHNIQUE: Helically acquired images were obtained of the abdomen and pelvis with intravenous contrast. This CT exam was performed using one or more of the following dose reduction techniques: automated exposure control, adjustment of the mA and/or kV according to patient size, and/or use of iterative reconstruction technique. This report was created using [employer] report generation technology. CONTRAST: IV 100mL Isovue-370 RADIATION DOSE: Total DLP: 432.88 mGy-cm. COMPARISON: None. FINDINGS: LOWER THORAX: Minimal dependent atelectasis noted at the lung bases. No significant pericardial effusion. No coronary artery calcification is visualized. ABDOMEN: LIVER: Minimal fatty infiltration of the liver. No hepatic laceration. Portal veins enhance normally. GALLBLADDER AND BILE DUCTS: Unremarkable. No calcified gallstones. No gallbladder distention or wall edema. No intra- or extrahepatic biliary ductal dilation. PANCREAS: Unremarkable. No focal cystic or solid mass. SPLEEN: Unremarkable. No splenic laceration. ADRENALS: Unremarkable. No nodules. KIDNEYS AND URETERS: Unremarkable. Normal renal size and position. No renal laceration or subcapsular hematoma. No renal or obstructing ureteral stones. STOMACH AND BOWEL: Mild sigmoid diverticulosis without evidence for acute diverticulitis. No stomach or bowel distention. No mesenteric edema. PELVIS: APPENDIX: Normal. No evidence of acute appendicitis. BLADDER: Partially distended urinary bladder is unremarkable. REPRODUCTIVE: Atrophic uterus. Normal size ovaries. 1.4 cm simple cyst in the left ovary, which requires no follow-up in patient of this age group. ABDOMEN and PELVIS: INTRAPERITONEAL SPACE: Trace of nonspecific low density free fluid in the dependent portion of the pelvis. No free air. BONES/JOINTS: Mild degenerative disc space narrowing at the L2/3 level with small marginal osteophytes and mild annular bulging. No acute fracture is identified; the visualized lower ribs are intact. No suspicious lytic or blastic abnormality. SOFT TISSUES: Streaky density noted within the subcutaneous fat overlying the proximal right femur due to scarring or bruising. No focal hematoma identified. No discrete abdominal or pelvic wall hernia. VASCULATURE: Normal caliber abdominal aorta. No AAA. LYMPH NODES: Unremarkable. No enlarged lymph nodes. CT/Abdomen/Pelvis W IV Cont ONLY IMPRESSION: No hepatic, splenic or renal laceration. No acute fracture identified. Streaky bruising or scarring within the subcutaneous fat overlying the proximal right femur. Minimal sigmoid diverticulosis without evidence for acute diverticulitis. Electronically Signed: Amos Hollis MD at 16:16 EDT ,
[2022-06-29 15:31] VITALS: BP 161/102; PULSE 56; RESP 18; O2SAT 99
[2022-06-29 15:49] LABS: Absolute Lymphocyte Count 1.28 X10^3/uL (0.83-4.51); Absolute Neutrophil Count 5.9 X10^3/uL (2.0-7.7); Basophil# 0.08 X10^3/uL; Eosinophil# 0.07 X10^3/uL; Eosinophils% 0.9 % (0-5); Hematocrit 38.3 % (37-47); Lymphocyte # 1.28 X10^3/ul (0.83-4.51); Lymphocyte % 16.2 % (19-41); Mean Corp Hgb Conc 33.9 g/dL (32-36); Mean Corpuscular Hgb 31.5 pg (27.0-32.0); Mean Corpuscular Volume 92.7 fL (81-99); Monocyte# 0.47 X10^3/uL; Monocyte% 5.9 % (0-10); NRBC Flagged by Analyzer 0 % (0-5); Neutrophil # 5.94 X10^3/uL (2.7-7.7); Neutrophil % 75.1 % (47-70); Platelet Count 231 K/mm3 (150-450); RBC Distribution Width CV 12.2 % (11.6-14.6); RBC Distribution Width SD 41.6 fl (35.1-43.9); Red Blood Count 4.13 M/mm3 (4.2-5.4); White Blood Count 7.9 K/mm3 (4.4-11.0)
[2022-06-29] MEDS: Morphine 4 MG/ML Syringe IV (16:02)
[2022-06-29 16:05] LABS: Anion Gap 8 (5-15); BUN 12 mg/dL (7-18); BUN/Creat Ratio 12.6 RATIO (10-20); Calcium,Total 8.9 mg/dL (8.5-10.1); Chloride 107 mmol/L (98-107); Creatinine, Serum 0.95 mg/dL (0.55-1.02); EST Glomerular Filtration Rate 62 mL/min (>60); Est Glom Filt Rate - Afr Amer 75 mL/min (>60); Estimated Creatinine Clearance 46.69 ml/min; Glucose 104 mg/dL (74-106); Potassium 3.7 mmol/L (3.5-5.1); Sodium Level 145 mmol/L (136-145)
[2022-06-29 17:34] VITALS: BP 168/104; PULSE 67; RESP 18; O2SAT 98
[2022-06-29] MEDS: oxyCODONE 5 MG Tablet PO (18:20)
== END 2022-06-29 18:37 | disposition home or self-care (01) ==
PROVIDERS: Physician Assistant; Emergency Provider Emergency Medicine; PCP Family Medicine; Visit Provider Emergency Medicine
DX: S30.0XXA Contusion of lower back and pelvis, initial encounter (principal); S20.211A Contusion of right front wall of thorax, initial encounter; S80.01XA Contusion of right knee, initial encounter; S09.90XA Unspecified injury of head, initial encounter; W10.9XXA Fall (on) (from) unspecified stairs and steps, initial encounter
CPT/HCPCS: 70450; 71101; 72110; 72125; 73502; 73560; 74177; 80048; 85025; 96374; 96375; 99284; J7040; Q9967; A4216

== ENCOUNTER → 2024-09-19 | Outpatient (CLI) | payer MEDICARE, SELFPAY ==
[2024-09-19 18:20] LABS: Magnesium 2.4 mg/dL (1.5-2.2)
== END | disposition home or self-care (01) ==
LOC: LAB 15:27
PROVIDERS: PCP Family Medicine; Referring Provider Internal Medicine Cardiovascular Disease; Visit Provider Internal Medicine Cardiovascular Disease
DX: R00.2 Palpitations (principal); R25.2 Cramp and spasm; I47.10 Supraventricular tachycardia, unspecified
CPT/HCPCS: 36415; 83735; 84443

== ENCOUNTER → 2024-10-27 | Outpatient (CLI) | payer MEDICARE, SELFPAY ==
--- NOTE | 2024-10-27 06:47 | ECHOD_ITS ---
Reason For Study Reason For Study: Palpitations Procedure This was a 2D Doppler, Color Flow transthoracic echocardiogram. Myocardial strain analysis was performed in this exam to aid in the assessment of cardiac function. Exam performed in department. Left Ventricle Normal size and thickness. The global longitudinal strain = -21.3 % (normal). The LV ejection fraction is 65 %. Normal diastololic function. Right Ventricle Normal right ventricle. Atria The left and right atria are normal. Mitral Valve Mild (1+) mitral valve insufficiency. Tricuspid Valve Mild tricuspid valve insufficiency. Normal pulmonary artery pressure. Aortic Valve Trisinus/trileaflet aortic valve. Pulmonic Valve The pulmonic valve is not well visualized. Trivial pulmonic valve insufficiency. Great Vessels Normal sized aortic root. Pericardium/Pleural No pericardial effusion. MMode/2D Measurements & Calculations LVIDd: 4.2 cm IVSd: 1.0 cm Ao root diam: 3.3 cm LVIDs: 2.7 cm LVPWd: 0.91 cm RVDd: 3.2 cm FS: 35.6 % LAV(MOD-bp): 34.6 ml LVAd ap4: 22.2 cm2 SV(MOD-sp4): 41.3 ml LAV(MOD-bp) Indexed: 22.7 ml/m2 LVLd ap4: 6.9 cm SI(MOD-sp4): 27.0 ml/m2 LAV(MOD-sp2): 33.9 ml EDV(MOD-sp4): 60.1 ml LAV(MOD-sp4): 33.0 ml EDV(sp4-el): 60.8 ml LVAs ap4: 11.1 cm2 LVLs ap4: 5.7 cm ESV(MOD-sp4): 18.8 ml ESV(sp4-el): 18.4 ml EF(MOD-sp4): 68.7 % EF(sp4-el): 69.8 % SV(sp4-el): 42.4 ml LA A4 area: 14.1 cm2 LA dimension(2D): 3.4 cm RA A4 area: 14.5 cm2 TAPSE: 1.9 cm Time Measurements MV dec time: 0.18 sec Doppler Measurements & Calculations MV E max moses: 85.2 cm/sec Lat Peak E' Moses: 9.8 cm/sec Med Peak E' Moses: 6.7 cm/sec MV A max moses: 70.8 cm/sec E/E' lat: 8.7 E/E' med: 12.8 MV E/A: 1.2 MV V2 max: 108.1 cm/sec MV P1/2t max moses: 108.1 cm/sec Ao V2 max: 118.2 cm/sec MV max P.7 mmHg MV P1/2t: 70.1 msec Ao max P.6 mmHg MV V2 mean: 51.3 cm/sec Ao V2 mean: 83.5 cm/sec MV mean P.3 mmHg MV dec slope: 451.6 cm/sec2 Ao mean P.2 mmHg MV V2 VTI: 37.7 cm MVA(P1/2t): 3.1 cm2 Ao V2 VTI: 29.4 cm AV (velocity ratio): 0.88 LV V1 max: 104.7 cm/sec PA V2 max: 66.9 cm/sec LV V1 max P.4 mmHg PI dec slope: 187.5 cm/sec2 LV V1 mean P.1 mmHg LV V1 mean: 67.8 cm/sec LV V1 VTI: 25.9 cm TR max moses: 246.6 cm/sec TR max P.3 mmHg ECHO/Echo Complete Interpretation Summary The LV ejection fraction is 65 %. Mild (1+) mitral valve insufficiency. Mild tricuspid valve insufficiency. Ordering Physician: Bg Goldstein Referring Physician: Bg Goldstein Performed By: Brayden Marshall RCS
--- OUTSIDE RECORDS SUMMARY | 2024-10-27 06:52 | XMS RPT_ITS | CCD ---
Author Organization [facility]ini[facility] Care Team Providers Care Code Enforcement Supervisor Name Role Phone SaragoodClarissa E Unavailable Johann Woodruff Unavailable Carlos Mon Unavailable Unavailable Unavailable Unavailable Christa Hernandes Unavailable Unavailable Jose Rafael Marc Unavailable Valarie Morrison Unavailable Clarissa Amato CNP Unavailable Dr. Johann Woodruff Unavailable Jose Rafael Marc Unavailable Valarie Morrison Unavailable Carlos Mon LPN Unavailable Unavailable Unavailable Unavailable César Smipson Unavailable Anjelica Sanchez Unavailable Dr. Ja Salinas DO Unavailable Jenn Layne MA Unavailable Unavailable Unavailable Unavailable Nikky Lagunas LPN Unavailable Unavailable Hansela, Clarissa Unavailable Ciesa, Clarissa Unavailable [place] AG[place] AGENT-[place] Clarissa Primary Care Provider [place] AG[place] AGENT-C Clarissa Referring Provider Elenita [place] AGENT, COUNTY AGENT-C Krystal Attending Provider Unavailable Primary Care Provider Unavailabl e Sararanjanabereket Clarissa Unavailable Trisha Lara CNP Unavailable Remy Perez MD Primary Care Provider Remy Perez MD Primary Care Provider Go HEALY, Remy Yuen Primary Care Provider REMY PEREZ A Referring Unavailable OG, REMY A Primary Care Unavailable Go HEALY, Remy A Primary Care Provider Go HEALY, Remy Yuen Primary Care Provider Go HEALY, Remy Yuen Primary Care Provider Unavailable Primary Care Provider Unavailabl e Wolfgang DESIGN DRAFTSMAN.INDUSTRIAL INSULATOR, Rupinder Unavailable Jay VELIZ, Aziza Unavailable Go HEALY, Dr. Alberto Primary Care Provider Go HEALY, Dr. Alberto Referring Provider Dr. Bg Goldstein MD Attending Provider Wolfgang DESIGN DRAFTSMAN.INDUSTRIAL INSULATOR, Rupinder Unavailable Jay VELIZ, Aziza Unavailable Dr. Bg Goldstein MD Referring Provider GO, REMY A Primary Care Unavailable GO, REMY A Referring Unavailable GO, REMY A Primary Care Unavailable AZIZA THOMPSON Attending Unavailable GO, REMY A Primary Care Unavailable THOMPSONAZIZA Referring Unavailable GO, REMY A Primary Care Unavailable GO, REMY A Referring Unavailable NAWAF, QUOC Attending Unavailable GO, REMY A Primary Care Unavailable AZIZA THOMPSON Referring Unavailable NAWAF, QUOC Attending Unavailable GO, REMY A Primary Care Unavailable NAWAF, QUOC Referring Unavailable NAWAF, QUOC Attending Unavailable GO, REMY A Primary Care Unavailable NAWAF, QUOC Referring Unavailable NAWAF, QUOC Attending Unavailable GO, REMY A Primary Care Unavailable AIZZA THOMPSON Referring Unavailable GO, REMY A Primary Care Unavailable GO, REMY A Attending Unavailable GO, REMY A Primary Care Unavailable THOMPSONAZIZA Attending Unavailable GO, REMY A Primary Care Unavailable GO, REMY A Primary Care Unavailable GO, REMY A Referring Unavailable NAWAF, QUOC Attending Unavailable GO, REMY A Primary Care Unavailable GO, REMY A Referring Unavailable GO, REMY A Primary Care Unavailable KOMAL THOMPSONE Referring Unavailable QUOC MCCRACKEN Attending Unavailable DEEPIKA PEREZREY A Primary Care Unavailable AZIZA THOMPSON Attending Unavailable DEEPIKA PEREZREY A Primary Care Unavailable JAY, AZIZA Attending Unavailable GO, REMY A Primary Care Unavailable THOMPSON, AZIZA Referring Unavailable GO, REMY A Primary Care Unavailable KOMAL THOMPSONE Attending Unavailable GO, REMY A Primary Care Unavailable THOMPSON, AZIZA Referring Unavailable GODEEPIKA POPEREY A Primary Care Unavailable THOMPSON, AZIZA Referring Unavailable GO, REMY A Primary Care Unavailable THOMPSON, AZIZA Attending Unavailable GO, REMY A Primary Care Unavailable KOMAL THOMPSONE Attending Unavailable GO, REMY A Primary Care Unavailable JAY, AZIZA Referring Unavailable QUOC MCCRACKEN Attending Unavailable GO, REMY A Primary Care Unavailable REYM PEREZ A Referring Unavailable QUOC MCCRACKEN Attending Unavailable TristonBg dolan Attending Unavailable Remy Perez Referring Unavailable GoRemy pope Primary Care Unavailable TristonBg dolan Attending Unavailable Remy Perez Primary Care Unavailable TristonBg dolan Referring Unavailable Triston, Bg Referring Unavailable TristonBg dolan Attending Unavailable Remy Perez Primary Care Unavailable Allergies Allergy Classification Reported Allergen(s) Allergy Type Date of Onset Reaction(s) Facility Pollen (6 sources) Pollen; Translations: [Pollens] Substance Allergy [facility] Work Phone: (20 sources) Pollen; Translations: [Pollens] Allergy to substance (finding) [facility] Work Phone: (20 sources) Animal Dander; Translations: [Animal Dander] Allergy to substance (finding) [facility] Work Phone: Comment on above: cats (6 sources) Amoxicillin Drug Allergy 2 diarrhea [facility] [place] (6 sources) Clavulanate Drug Allergy 2 diarrhea [facility] [place] (20 sources) Amoxicillin / Clavulanate; Translations: [AMOXICILLIN-PO T CLAVULANATE] Drug Allergy 2 GI Upset [facility] Work Phone: (1 source) Paxlovid *ANTIVIRALS*; Translations: [Paxlovid *ANTIVIRALS*] Allergy to drug (finding) Vomiting [facility]; [facility] Work Phone: (1 source) Amoxicillin Drug Allergy 5 [facility] [place] Repository (1 source) Clavulanate Drug Allergy 5 [facility] [place] Repository Medications Current Medications Medication Drug Class(es) Dates Sig (Normalized) Sig (Original) acetaminophen 325 mg / oxyCODONE hydrochloride 5 mg oral tablet (18 sources) Opioid Agonist Start: 06-29-2022 End: 12-24-2022 take 1 tablet by mouth every eight hours as needed for pain Oxycodone-Acetam inophen (Endocet) 5-325 mg tablet Active 1 {tbl} PO Q8H as needed for pain 14 5 June 29, 2022 Comment on above: Take 1 tablet by ashish th every 8 hours as needed. ALPRAZolam 0.5 mg oral tablet (20 sources) Benzodiazepine Start: 2020 Alprazolam (Xanax) 0.5 mg tablet Active 0.5 mg PO .as needed for flying 2020 12:00am Start: 06-08-2020 End: 06-18-2021 take 1 tablet by mouth once daily as needed for anxiety ALPRAZolam 0.25 MG Oral Tablet 1 (one) Tablet qd prn for anxiety for 0 days Quantity: 30 {Tablet} Refills: 0 Ordered: 18-Jun-2021 Nikky Lagunas LPN Start : 08-Jun-2020 End : 18-Jun-2021 Inactive Comments: Oarrs run thirtyAnxiety F41.9 Comment on above: Oarrs run thirtyAnxi ety F41.9 amLODIPine 5 mg oral tablet (6 sources) Dihydropyridine Calcium Channel Michelle Start: take 1 tablet by mouth once daily amLODIPine (NORVASC) 5 mg tablet Take 1 tablet by mouth once daily. 90 tablet 1 10/17/2024 Active Start: 09-28-2024 End: 10-14-2024 take 1 tablet by mouth once daily amLODIPine (NORVASC) 5 mg tablet Take 1 tablet by mouth once daily. 30 tablet 1 09/28/2024 10/14/2024 Discontinued atorvastatin 10 mg oral tablet (4 sources) HMG-CoA Reductase Inhibitor Start: 06-20-2022 End: 06-20-2023 take 1 tablet by mouth once daily at bedtime for hyperlipidemia atorvastatin (LIPITOR) 10 mg tablet Take 1 tablet by mouth daily at bedtime. For cholesterol. 90 tablet 1 06/20/2022 06/30/2022 Discontinued Comment on above: Take 1 tablet by ashish th daily at bedtime. For cholesterol. azithromycin 250 mg oral tablet (7 sources) Macrolide Antimicrobial Start: 04-08-2023 End: 04-13-2023 azithromycin (ZITHROMAX Z-ANTONIO) 250 mg tablet Take 2 tablets day one, then, 1 tablet daily until gone. 6 tablet 0 04/08/2023 04/13/2023 Active Start: 05-03-2021 End: 06-18-2021 Zithromax Z-Antonio 250 MG Oral Tablet 1 (one) Tablet TAD for 0 days Quantity: 1 {Packet} Refills: 0 Ordered: 18-Jun-2021 Nikky Lagunas LPN Start : 03-May-2021 End : 18-Jun-2021 Inactive Comments: 1 package Comment on above: 1 package Take 2 tablets day o ne, then, 1 tablet daily until gone. benzonatate 100 mg oral capsule (7 sources) Non-narcotic Antitussive Start: 4 End: take 2 capsules by mouth three times daily as needed benzonatate (TESSALON PERLE) 100 mg capsule Indications: Acute cough Take 2 capsules by mouth three times a day as needed for up to 10 days. 60 capsule 03/10/2024 03/20/2024 Active Start: 08-11-2021 End: 09-15-2024 take 1 capsule by mouth three times daily as needed for cough Benzonatate 200 mg capsule Discontinued 200 mg PO THREE TIMES A DAY as needed for cough August 11, 2021 12:00am September 15, 2024 6:21pm betamethasone 0.5 mg/ml topical cream (20 sources) Corticosteroid Start: 09-15-2024 Betamethasone Dipropionate 0.05 % cream Active 1 NMA TOPICAL TWICE A DAY as needed September 15, 2024 12:00am Start: 12-02-2021 betamethasone dipropionate (DIPROSONE) 0.05 % cream Apply to affected area twice daily. 30 g 12/02/2021 Active Comment on above: Apply to affected ar ea twice daily. busPIRone hydrochloride 5 mg oral tablet (20 sources) Start: 09-15-2024 take 1 tablet by mouth three times daily as needed Buspirone 5 mg tablet Active 5 mg PO THREE TIMES A DAY as needed September 15, 2024 12:00am Start: 08-25-2024 End: 10-08-2024 take 0.5 tablet by mouth twice daily, then take 1 tablet by mouth twice daily busPIRone (BUSPAR) 15 mg tablet Take 0.5 tablets by mouth two times a day for 14 days, THEN 1 tablet two times a day. 180 tablet 1 08/25/2024 10/08/2024 Active Start: 07-14-2022 End: 08-25-2024 take 1 tablet by mouth three times daily as needed busPIRone (BUSPAR) 5 mg tablet Indications: Fall (on) (from) unspecified stairs and steps, subsequent encounter Take 1 tablet by mouth three times a day as needed. PRN 90 tablet 1 03/28/2024 08/25/2024 Discontinued (Adjust Sig - Block E-Cancel) Comment on above: Take 1 tablet by ashish th three times daily. Take 1 tablet by ashish th three times a day. cefadroxil 500 mg oral capsule (20 sources) Cephalosporin Antibacterial Start: 06-24-19 End: 07-01-19 take 1 capsule by mouth twice daily cefADROxil (DURICEF) 500 mg capsule Indications: Sinobronchitis Take 1 capsule by mouth two times a day for 7 days. 14 capsule 0 06/24/2023 07/01/2023 Active Start: 06-23-2022 End: 12-24-2022 take 1 capsule by mouth twice daily cefADROxil (DURICEF) 500 mg capsule Take 1 capsule by mouth twice daily. 20 capsule 06/23/2022 12/24/2022 Discontinued Start: 04-04-2022 End: 05-16-2022 take 1 capsule by mouth twice daily cefADROxil (DURICEF) 500 mg capsule Take 1 capsule by mouth twice daily. 20 capsule 0 04/04/2022 05/16/2022 Discontinued Comment on above: Take 1 capsule by mo uth twice daily. Take 1 capsule by mo uth two times a day for 7 days. cholecalciferol 0.025 mg oral capsule (6 sources) Vitamin D Start: 2020 take 1 capsule by mouth once daily Cholecalciferol (Vitamin D3) 25 mcg (1,000 unit) capsule Active 25 ug PO DAILY October 25, 2020 12:00am dicyclomine hydrochloride 10 mg oral capsule (20 sources) Anticholinergic Start: 2022 End: 2023 take 1 capsule by mouth at bedtime dicyclomine (BENTYL) 10 mg capsule Take 1 capsule by mouth before meals and at bedtime. 30 capsule 1 11/19/2023 Active Comment on above: Take 1 capsule by mo uth before meals and at bedtime. diphenhydrAMINE hydrochloride 25 mg oral tablet (6 sources) Histamine-1 Receptor Antagonist Start: 2020 Diphenhydramine Hcl (Benadryl Allergy) 25 mg tablet Active 25 mg PO .prn as needed for Headache October 25, 2020 12:00am Docosahexaenoate (2 sources) Start: 2024 docosahexaenoic acid Active PO DAILY September 15, 2024 12:00am docosahexaenoic acid/epa (FISH OIL ORAL) (20 sources) docosahexaenoic acid/epa (FISH OIL ORAL) Take by mouth as directed. Active doxycycline hyclate 100 mg oral tablet (11 sources) Tetracycline-class Drug Start: 2023 End: 2023 take 1 tablet by mouth twice daily doxycycline (VIBRA-TABS) 100 mg tablet Indications: Sinobronchitis Take 1 tablet by mouth two times a day for 7 days. 14 tablet 03/10/2024 03/17/2024 Active Start: 06-11-2023 End: 06-21-2023 take 1 tablet by mouth twice daily doxycycline (VIBRA-TABS) 100 mg tablet Indications: Bacterial sinusitis Take 1 tablet by mouth two times a day for 10 days. 20 tablet 0 06/11/2023 06/21/2023 Active Start: 04-19-2023 End: 04-24-2023 take 1 tablet by mouth twice daily doxycycline (VIBRA-TABS) 100 mg tablet Indications: Rhinosinusitis Take 1 tablet by mouth two times a day for 5 days. 10 tablet 0 04/19/2023 04/24/2023 Active Start: 05-03-2021 End: 05-10-2021 take 1 tablet by mouth twice daily Doxycycline Hyclate 100 MG Oral Tablet Delayed Release 1 (one) Tablet bid for 7 days Quantity: 14 {Tablet} Refills: 0 Ordered: 03-May-2021 Clarissa Amato Start : 03-May-2021 End : 10-May-2021 Inactive Start: 01-11-2021 End: 01-18-2021 take 1 tablet by mouth twice daily Doxycycline Hyclate 100 MG Oral Tablet Delayed Release 1 (one) Tablet bid for 7 days Quantity: 14 {Tablet} Refills: 0 Ordered: 11-Jan-2021 Clarissa Amato CNP, CNP, Mary E Start : 11-Jan-2021 End : 18-Jan-2021 Inactive Comment on above: Take 1 tablet by ashish th two times a day for 5 days. Take 1 tablet by ashish th two times a day for 10 days. enteric contrast (will be provided with radiology test) (1 source) Start: 05-19-2022 End: 05-20-2022 enteric contrast (will be provided with radiology test) Indications: Bone lesion , Abnormal x-ray For CT PELVIS WO IVCON order Administer, As Directed One Time Only, via Oral, Rectal, both Oral and Rectal, Enteric Tube, Stoma or Indwelling Catheter, Enteric Contrast as designated per enteric contrast guidelines 1 Each 0 05/19/2022 05/20/2022 Active Comment on above: For CT PELVIS WO IVC ON order Administer, As Directed One Time Only, via Oral, Rectal, both Oral and Rectal, Enteric Tube, Stoma or Indwelling Catheter, Enteric Contrast as designated per enteric contrast guidelines gabapentin 300 mg oral capsule (20 sources) Anti-epileptic Agent Start: 09-15-2024 End: 03-14-2025 take 1 capsule by mouth twice daily gabapentin (NEURONTIN) 300 mg capsule Take 1 capsule by mouth two times a day for 180 days. 180 capsule 1 09/15/2024 03/14/2025 Active Start: 11-22-2021 End: 05-27-2023 take 1 capsule by mouth once daily, then take 1 capsule by mouth once daily gabapentin (NEURONTIN) 300 mg capsule Take 1 capsule by mouth once daily for 180 days. Take one tablet daily 90 capsule 1 01/02/2022 06/30/2022 Discontinued Start: 05-16-2021 take 1 capsule by mo [facility] once daily at bedtime Gabapentin 300 MG Oral Capsule 1 (one) Capsule QHS for 0 days Quantity: 90 {Capsule} Refills: 0 Ordered: 16-May-2021 Lima MOLINA Clarissa Zapata Sararanjanabereket MOLINA, Clarissa Zapata Start : 16-May-2021 Active Comments: ninetyOarrs run G25.81 Restless legs Start: 10-25-2020 End: 06-20-2024 take 1 capsule by mouth twice daily gabapentin (NEURONTIN) 300 mg capsule Take 1 capsule by mouth two times a day for 180 days. 180 capsule 1 12/23/2023 Active Start: 01-13-2020 End: 11-22-2021 take 300 mg by mouth at bedtime Gabapentin Active 300 MG PO AT BEDTIME October 25, 2020 12:00am Comment on above: ninetyOarrs run G25. 81 Restless legs ninetyOarrs run G25. 81 Restless legsFill Mar ninetyOarrs run G25. 81 Restless legsFill after July 01, 2020 Take 300 mg by mouth once daily. Take one tablet daily Take 1 capsule by mo [facility] once daily for 180 days. Take one tablet daily Take 1 capsule by [facility] twice daily for 180 days. Take one tablet daily Take 1 capsule by [facility] twice daily for 180 days. Take 1 capsule by mo [facility] two times a day for 180 days. ibuprofen 400 mg oral tablet (2 sources) Nonsteroidal Anti-inflammatory Drug Start: 10-26-19 take 400 mg by mouth every eight hours Ibuprofen Active 400 MG PO Q8H October 25, 2020 12:00am levothyroxine sodium 0.1 mg oral tablet (20 sources) l-Thyroxine Start: 09-22-19 take 1 tablet by mouth once daily levothyroxine (LEVOXYL) 100 mcg tablet Indications: Postoperative hypothyroidism Take 1 tablet by mouth once daily. 90 tablet 1 09/21/2024 Active Start: 01-13-2020 End: 09-21-2024 take 1 tablet by mouth once daily before breakfast, then take 1 tablet by mouth once daily before breakfast levothyroxine (SYNTHROID) 88 mcg tablet Take 1 tablet by mouth daily before breakfast. Take one tablet daily before breakfast 90 tablet 1 09/15/2024 Active Comment on above: Take 88 mcg by mouth daily before breakfast. Take one tablet daily before breakfast Take 1 tablet by ashish th daily before breakfast. Take one tablet daily before breakfast losartan potassium 50 mg oral tablet (20 sources) Angiotensin 2 Receptor Michelle Start: 09-15-2024 take 1 tablet by mouth once daily Losartan 50 mg tablet Active 50 mg PO daily September 15, 2024 12:00am Start: 08-08-2024 End: 08-25-2024 take 1 tablet by mouth once daily, then take 1 tablet by mouth once daily losartan (COZAAR) 50 mg tablet Take 1 tablet by mouth once daily. Take one tablet daily 08/08/2024 08/25/2024 Discontinued (Adjust Sig - Block E-Cancel) Start: 2020 End: 09-28-2024 take 1 tablet by mouth once daily, then take 1 tablet by mouth once daily losartan (COZAAR) 25 mg tablet Take 1 tablet by mouth once daily. Take one tablet daily 08/25/2024 Active Comment on above: per Dr. Simpson Take 25 mg by mouth once daily. Take one tablet daily Take 1 tablet by ashish th once daily. Take one tablet daily 24 hr metoprolol succinate 25 mg extended release oral tablet (7 sources) beta-Adrenergic Michelle Start: 09-19-2024 End: 10-14-2024 take 0.5 tablet by mouth once daily metoprolol succinate ER (TOPROL XL) 25 mg 24 hr tablet Take 0.5 tablets by mouth once daily. 90 tablet 10/14/2024 Active multivit with minerals/lutein (MULTIVITAMIN 50 PLUS ORAL) (20 sources) multivit with minerals/lutein (MULTIVITAMIN 50 PLUS ORAL) Take by mouth once daily. Active mnnfmtng-yii-kktq-FA-v it K-lut (Multivitamin Women 50 Plus) (2 sources) Start: 09-15-2024 etveacgc-ltx-jtrb-F A-vit K-lut (Multivitamin Women 50 Plus) Active PO DAILY September 15, 2024 12:00am polyethylene glycol 3350 809413 mg / potassium chloride 2970 mg / sodium bicarbonate 6740 mg / sodium chloride 5860 mg / sodium sulfate 30486 mg powder for oral solution (2 sources) Osmotic Laxative Start: 12-29-2022 End: 12-29-2022 peg 3350-Electrolytes (GOLYTELY) 236-22.74-6.74 -5.86 gram suspension Take 4,000 mL by mouth one time only for 1 dose. 1 Each 0 12/29/2022 12/29/2022 Active Start: 06-27-2022 End: 06-27-2022 peg 3350-Electrolytes (GOLYT COLIN) 236-22.74-6.74 -5.86 gram suspension Take 4,000 mL by mouth one time only for 1 dose. 1 Each 0 06/27/2022 06/27/2022 Active Comment on above: Take 4,000 mL by ashish th one time only for 1 dose. pravastatin sodium 20 mg oral tablet (20 sources) HMG-CoA Reductase Inhibitor Start: 4 End: 5 take 1 tablet by mouth once daily at bedtime pravastatin (PRAVACHOL) 20 mg tablet Take 1 tablet by mouth daily at bedtime. 90 tablet 1 04/11/2024 Active Start: 06-30-2022 End: 06-26-2023 take 1 tablet by mouth once daily at bedtime pravastatin (PRAVACHOL) 20 mg tablet Take 1 tablet by mouth daily at bedtime. 90 tablet 1 06/30/2022 11/28/2022 Discontinued Comment on above: Take 1 tablet by ashish th daily at bedtime. rosuvastatin calcium 20 mg oral tablet (6 sources) HMG-CoA Reductase Inhibitor Start: 5 End: 5 take 1 tablet by mouth once daily at bedtime rosuvastatin (CRESTOR) 20 mg tablet Take 1 tablet by mouth daily at bedtime. 30 tablet 1 09/28/2024 Active traZODone hydrochloride 150 mg oral tablet (20 sources) Serotonin Reuptake Inhibitor Start: 1 take 150 mg by mouth at bedtime Trazodone Active 150 MG PO AT BEDTIME October 25, 2020 12:00am Start: 08-31-2020 take 3 tablets by mo ut once daily at bedtime traZODone HCl 50 MG Oral Tablet 3 (three) Tablet QHS for 90 days Quantity: 270 {Tablet} Refills: 0 Ordered: 21-Aug-2021 Mallika Garcia DO Start : 21-Aug-2021 Active Comments: Oarrs run Insomnia Start: 06-15-2020 take 3 tablets by mo uth once daily at bedtime traZODone HCl 50 MG Oral Tablet 3 (three) Tablet QHS for 90 days Quantity: 270 {Tablet} Refills: 0 Ordered: 15-Jun-2020 Lima MOLINA, Clarissa Amato CNP, Clarissa Zapata Start : 15-Jun-2020 Active Comments: Oarrs run Insomnia Start: 01-17-2020 take 3 tablets by mo uth once daily at bedtime traZODone HCl 50 MG Oral Tablet 3 (three) Tablet QHS for 90 days Quantity: 270 {Tablet} Refills: 0 Ordered: 28-Feb-2020 Lima MOLINA, Clarissa Amato CNP, Clarissa Zapata Start : 28-Feb-2020 Active Comments: Oarrs run Insomnia Start: 01-13-2020 End: 09-14-2024 take 1 tablet by mouth once daily at bedtime traZODone (DESYREL) 150 mg tablet Take 1 tablet by mouth daily at bedtime. 90 tablet 1 09/15/2024 Active Comment on above: Oarrs run Insomnia Take 150 mg by mouth daily at bedtime. Take 1 tablet by ashish daily at bedtime. Turmeric extract (20 sources) Start: 09-15-2024 turmeric Active PO DAILY September 15, 2024 12:00am TURMERIC ORAL Ta ke by mouth as directed. Active Completed/Discontinued Medications Medication Drug Class(es) Dates Sig (Normalized) Sig (Original) Acetaminophen / HYDROcodone (5 sources) Opioid Agonist End: 05-16-2022 HYDROCODONE-ACETAMI NOPHEN ORAL Take by mouth. As needed for pain 0 05/16/2022 Discontinued HYDROCODONE-ACET AMINOPHEN ORAL Take by mouth. As needed for pain 0 Active Comment on above: Take by mouth. As ne eded for pain [id number] 200 actuat albuterol 0.09 mg/actuat metered dose inhaler (20 sources) beta2-Adrenergic Agonist Start: 05-03-2021 ProAir HFA 108 (90 Base) MCG/ACT Inhalation Aerosol Solution 2 (two) Puff tid or qid for 0 days Quantity: 1 {Each} Refills: 0 Ordered: 03-May-2021 Clarissa Amato Start : 03-May-2021 Active Start: 02-28-2020 ProAir HFA 108 (90 Base) MCG/ACT Inhalation Aerosol Solution 2 (two) Puff tid or qid for 0 days Quantity: 1 {Inhaler} Refills: 0 Ordered: 28-Feb-2020 Christa Hernandes LPN Start : 28-Feb-2020 Active Start: 02-28-2020 ProAir HFA 108 (90 Base) MCG/ACT Inhalation Aerosol Solution 2 (two) Puff tid or qid for 0 days Quantity: 1 {Inhaler} Refills: 0 Ordered: 28-Feb-2020 Christa Hernandes LPN Start : 28-Feb-2020 Active amoxicillin 875 mg oral tablet (6 sources) Penicillin-class Antibacterial Start: 08-11-2021 End: 08-16-2021 take 1 tablet by mouth every twelve hours Amoxicillin 875 mg tablet Discontinued 875 mg PO Q12H 10 5 August 11, 2021 12:00am August 15, 2021 12:00am August 16, 2021 12:04am baclofen 10 mg oral tablet (20 sources) gamma-Aminobutyric Acid-ergic Agonist Start: 02-13-2022 End: 12-24-2022 take 1 tablet by mouth every eight hours as needed baclofen (LIORESAL) 10 mg tablet Take 1 tablet by mouth three times daily as needed (muscle spasms). 30 tablet 02/13/2022 12/24/2022 Discontinued Comment on above: Take 1 tablet by [facility] three times daily as needed (muscle spasms). 12 hr buPROPion hydrochloride 150 mg extended release oral tablet (15 sources) Aminoketone Start: 06-08-2020 End: 09-18-2020 take 1 tablet by mouth once daily buPROPion HCl ER (SR) 150 MG Oral Tablet Extended Release 12 Hour 1 (one) Tablet daily for 30 days Quantity: 30 {Tablet} Refills: 6 Ordered: 18-Sep-2020 Carlos Mon LPN Start : 08-Jun-2020 End : 18-Sep-2020 Inactive cyclobenzaprine hydrochloride 10 mg oral tablet (20 sources) Muscle Relaxant Start: 09-28-2024 End: 06-27-2025 take 1 tablet by mouth every eight hours as needed cyclobenzaprine (FLEXERIL) 10 mg tablet Take 1 tablet by mouth three times a day as needed for muscle spasm. 30 tablet 09/28/2024 10/14/2024 Discontinued Start: 02-11-2023 End: 06-11-2023 take 1 tablet by mouth every eight hours as needed cyclobenzaprine (FLEXERIL) 10 mg tablet Take 1 tablet by mouth three times a day as needed for muscle spasm. 21 tablet 02/11/2023 06/11/2023 Discontinued Start: 05-16-2022 End: 12-24-2022 take 1 tablet by mouth every eight hours as needed cyclobenzaprine (FLEXERIL) 10 mg tablet Take 1 tablet by mouth three times daily as needed for muscle spasm. 30 tablet 05/16/2022 12/24/2022 Discontinued Start: 06-18-2021 take 1 tablet by ashish th once daily at bedtime as needed Cyclobenzaprine HCl 5 MG Oral Tablet 1 (one) Tablet qhs prn for muscle relaxant for 0 days Quantity: 30 {Tablet} Refills: 0 Ordered: 18-Jun-2021 SaraClarissa funk Start : 18-Jun-2021 Active Comment on above: Take 1 tablet by ashish th three times daily as needed for muscle spasm. Take 1 tablet by ashish th three times a day as needed for muscle spasm. diazePAM 5 mg oral tablet (11 sources) Benzodiazepine Start: 11-02-19 End: 12-02-19 take 1 tablet by mouth every twelve hours as needed diazePAM (VALIUM) 5 mg tablet Indications: Left arm pain , Left hand weakness , Numbness and tingling of left upper extremity Take 1 tablet by mouth every 12 hours as needed for up to 30 days. 30 tablet 1 11/01/2021 12/01/2021 Comment on above: Take 1 tablet by ashish th every 12 hours as needed for up to 30 days. estradiol 0.1 mg/ml vaginal cream (20 sources) Estrogen Start: 01-17-20 Estrace 0.1 MG/GM Vaginal Cream as directed for 0 days Quantity: 1 {Tube} Refills: 0 Ordered: 17-Jan-2020 SaraClarissa funk Start : 17-Jan-2020 Active Estrogen Cream (20 sources) Estrogen Cream Inactive Comments: unsure and forgot to bring so will either call with dosage or will bring to next OV Comment on above: unsure and forgot to bring so will either call with dosage or will bring to next OV fluticasone propionate 0.05 mg/actuat metered dose nasal spray (7 sources) Corticosteroid Start: 05-03-19 Flonase Allergy Relief 50 MCG/ACT Nasal Suspension 2 (two) [place] puffs daily for 0 days Quantity: 1 {Each} Refills: 0 Ordered: 03-May-2021 Nikky Lagunas LPN Start : 03-May-2021 Active ketorolac tromethamine 10 mg oral tablet (13 sources) Nonsteroidal Anti-inflammatory Drug, Cyclooxygenase Inhibitor Start: 07-15-19 End: 12-25-19 take 1 tablet by mouth every six hours as needed keTORolac (TORADOL) 10 mg tablet Indications: Fall (on) (from) unspecified stairs and steps, subsequent encounter Take 1 tablet by mouth every 6 hours as needed. 20 tablet 07/14/2022 12/24/2022 Discontinued Start: 05-16-2022 End: 05-16-2022 keTORolac 60 mg injection (T ORADOL) Comment on above: Take 1 tablet by ashish th every 6 hours as needed. lidocaine (PF) 20 mg/mL (2 %) 10 mg, triamcinolone acetonide 30 mg (2 sources) Start: 06-02-2024 End: 06-02-2024 lidocaine (PF) 20 mg/mL (2 %) 10 mg, triamcinolone acetonide 30 mg Start: 06-02-2024 End: 06-02-2024 INTRA-ARTICULAR, ONCE, 1 dos e, On Gilda 06/02/24 at 1130, EXP: lisinopril 10 mg oral tablet (20 sources) Angiotensin Converting Enzyme Inhibitor Start: 02-13-2020 End: 12-17-2020 take 1 tablet by mouth once daily Lisinopril 10 mg tablet Discontinued 10 mg PO DAILY October 25, 2020 12:00am 2020 4:06pm Start: 01-17-2020 take 1 tablet by ashish th once daily Lisinopril 10 MG Oral Tablet 1 (one) Tablet daily for 0 days Quantity: 30 {Tablet} Refills: 0 Ordered: 17-Jan-2020 Clarissa Amato CNP, CNP, Mary E Start : 17-Jan-2020 Active Start: 01-13-2020 take 1 tablet by ashish th once daily Lisinopril 10 MG Oral Tablet 1 (one) Tablet daily for 0 days Quantity: 30 {Tablet} Refills: 0 Ordered: 13-Jan-2020 Clarissa Amato CNP, CNP, Mary E Start : 13-Jan-2020 Active Magnesium (20 sources) End: 08-25-2024 MAGNESIUM ORAL Take by mouth as directed. 08/25/2024 Discontinued MAGNESIUM ORAL T olga by mouth as directed. Active methylPREDNISolone 4 mg oral tablet (8 sources) Corticosteroid Start: 01-11-2021 End: 06-18-2021 take 1 tablet by mouth once at mealtime Medrol 4 MG Oral Tablet Therapy Pack 1 (one) Tablet use as directed per instructions in pack for 0 days Quantity: 1 {Packet} Refills: 0 Ordered: 18-Jun-2021 Nikky Lagunas LPN Start : 11-Jan-2021 End : 18-Jun-2021 Inactive Comments: take with food or generic take with food Comment on above: take with food or ge neric take with food mupirocin 0.02 mg/mg topical ointment (20 sources) RNA Synthetase Inhibitor Antibacterial Start: 11-21-2021 End: 12-24-2022 mupirocin (BACTROBAN) 2 % ointment Apply to affected area three times daily. 15 g 11/21/2021 12/24/2022 Discontinued Comment on above: Apply to affected ar ea three times daily. Paxlovid 20 x 150 MG & 10 x 100MG Oral Tablet Therapy Pack (2 sources) Start: 10-11-2021 Paxlovid 20 x 150 MG & 10 x 100MG Oral Tablet Therapy Pack use as directed per instructions in pack for 0 days Quantity: 1 {Packet} Refills: 0 Ordered: 11-Oct-2021 Nikky Lagunas LPN Start : 11-Oct-2021 Active predniSONE 10 mg oral tablet (20 sources) Start: 05-26-2024 End: 05-26-2024 predniSONE (DELTASONE) 10 mg tablet Take 4 tabs daily for 3 days, then 2 tabs daily for 3 days, then 1 tab daily for 3 days with food. 21 tablet 05/26/2024 05/26/2024 Discontinued Start: 03-10-2024 End: 03-14-2024 take 2 tablets by mouth once daily predniSONE (DELTASONE) 20 mg tablet Indications: Sinobronchitis Take 2 tablets by mouth once daily for 4 days. 8 tablet 03/10/2024 03/14/2024 Active Start: 06-24-2023 End: 07-03-2023 predniSONE (DELTASONE) 10 mg tablet Indications: Sinobronchitis Take 4 tabs daily for 3 days, then 2 tabs daily for 3 days, then 1 tab daily for 3 days with food. 21 tablet 0 06/24/2023 07/03/2023 Start: 02-11-2023 End: 06-11-2023 predniSONE (DELTASONE) 10 mg tablet Take 4 tabs daily for 3 days, then 2 tabs daily for 3 days, then 1 tab daily for 3 days with food. 21 tablet 02/11/2023 06/11/2023 Discontinued (Course of therapy completed) Start: 05-16-2022 End: 05-25-2022 predniSONE (DELTASONE) 10 mg tablet Take 4 tabs daily for 3 days, then 2 tabs daily for 3 days, then 1 tab daily for 3 days with food. 21 tablet 05/16/2022 05/25/2022 Start: 11-01-2021 End: 01-27-2022 predniSONE (DELTASONE) 10 mg tablet Take 6 tabs by mouth for 3 days then 4 tabs a day for 3 days then 2 tabs a day for 3 days and then 1 tab a day for 3 days. 39 tablet 11/01/2021 01/27/2022 Discontinued Start: 06-18-2021 predniSONE 10 MG Oral Tablet 1 (one) Tablet bid x 3 days, 1 daily x 3 days 1/2 daily x 3 days for 0 days Quantity: 12 {Tablet} Refills: 0 Ordered: 18-Jun-2021 Clarissa Amato Start : 18-Jun-2021 Active Comments: with food Comment on above: with food Take 6 tabs by mouth for 3 days then 4 tabs a day for 3 days then 2 tabs a day for 3 days and then 1 tab a day for 3 days. Take 4 tabs daily fo r 3 days, then 2 tabs daily for 3 days, then 1 tab daily for 3 days with food. traMADol hydrochloride 50 mg oral tablet (20 sources) Opioid Agonist Start: 2 End: 3 take 1 tablet by mouth every eight hours as needed for pain traMADol (ULTRAM) 50 mg tablet Indications: Left arm pain , Left hand weakness , Numbness and tingling of left upper extremity Take 1 tablet by mouth every 8 hours as needed for pain. 21 tablet 0 02/17/2022 05/16/2022 Discontinued Start: 11-01-2021 End: 02-15-2022 take 1 tablet by mouth every eight hours as needed for pain traMADol (ULTRAM) 50 mg tablet Indications: Left hand weakness , Left arm pain , Numbness and tingling of left upper extremity Take 1 tablet by mouth every 8 hours as needed for pain. 21 tablet 11/21/2021 12/18/2021 Discontinued Comment on above: Take 1 tablet by ashish every 8 hours as needed for pain. Problems Active Problems Problem Classification Problem Date Documented Da te Episodic/Chronic Abdominal pain (1 source) Finding of sensation of abdomen; Translations: [Unspecified abdominal pain] 01-29-2023 Episodic Anxiety disorders (20 sources) Mixed anxiety and depressive disorder; Translations: [Anxiety and depression] Onset: 5 06-08-2020 Chronic Cardiac dysrhythmias (4 sources) Supraventricular tachycardia; Translations: [Supraventricular tachycardia] 09-19-2024 Chronic Cardiac dysrhythmias (12 sources) Palpitations; Translations: [Palpitations] Onset: 5 08-08-2024 Episodic Complications of surgical procedures or medical care (20 sources) Postoperative hypothyroidism; Translations: [Postprocedural hypothyroidism] Onset: 2 11-01-2021 Chronic Disorders of lipid metabolism (20 sources) Hyperlipidemia; Translations: [Hyperlipidemia] Onset: 3 02-28-2020 Chronic Diverticulosis and diverticulitis (1 source) Diverticular disease; Translations: [Diverticulosis of intestine, part unspecified, without perforation or abscess without bleeding] 01-29-2023 Chronic Esophageal disorders (6 sources) Gastroesophageal reflux disease; Translations: [Gastro-esophageal reflux disease without esophagitis] 12-17-2020 Chronic Essential hypertension (20 sources) Hypertensive disorder; Translations: [Hypertension] Onset: 2 01-17-2020 Chronic Fever of unknown origin (16 sources) Fever; Translations: [Fever] 01-11-2021 Episodic Fluid and electrolyte disorders (20 sources) Hypernatremia; Translations: [Hypernatremia] 09-21-2020 Episodic Genitourinary symptoms and ill-defined conditions (1 source) Microscopic hematuria; Translations: [Other microscopic hematuria] Episodic Headache; including migraine (6 sources) Headache; Translations: [Headache] 10-20-2021 Episodic Joint disorders and dislocations; trauma-related (1 source) Dislocation of shoulder joint; Translations: [Unspecified dislocation of right shoulder joint, subsequent encounter] Episodic Malaise and fatigue (20 sources) Fatigue; Translations: [Fatigue] 09-18-2020 Episodic Miscellaneous mental health disorders (20 sources) Primary insomnia; Translations: [Primary insomnia] Onset: 2 11-01-2021 Chronic Nausea and vomiting (6 sources) Vomiting; Translations: [Vomiting, unspecified] 10-20-2021 Episodic Other and unspecified benign neoplasm (1 source) Neuroma of foot; Translations: [Benign neoplasm of peripheral nerves and autonomic nervous system of lower limb, including hip] Episodic Other and unspecified benign neoplasm (1 source) Hyperplastic polyp of intestine; Translations: [Polyp of colon] 01-29-2023 Episodic Other bone disease and musculoskeletal deformities (2 sources) Disorder of bone, unspecified; Translations: [Disorder of bone and cartilage, unspecified] Episodic Other connective tissue disease (3 sources) Cramp in lower limb; Translations: [Sleep related leg cramps] 08-08-2024 Chronic Other connective tissue disease (1 source) Sleep related leg cramps; Translations: [Nocturnal leg cramps] Onset: Chronic Other connective tissue disease (13 sources) Heel pain; Translations: [Heel pain, chronic, left] 09-18-2020 Episodic Other connective tissue disease (1 source) Weakness of left arm; Translations: [Other symptoms and signs involving the musculoskeletal system] Episodic Other connective tissue disease (1 source) Trochanteric bursitis of left hip; Translations: [Trochanteric bursitis, left hip] Episodic Other connective tissue disease (20 sources) Plantar fasciitis of right foot; Translations: [Plantar fascial fibromatosis] Onset: 5 05-26-2024 Episodic Other connective tissue disease (3 sources) Cramp; Translations: [Cramp and spasm] 08-25-2024 Episodic Other connective tissue disease (1 source) Cramp and spasm; Translations: [Muscle cramp] Onset: 5 Episodic Other connective tissue disease (2 sources) Plantar fascial fibromatosis; Translations: [Plantar fasciitis of right foot] Onset: 5 Episodic Other gastrointestinal disorders (6 sources) Irritable bowel syndrome; Translations: [Irritable bowel syndrome without diarrhea] 12-17-2020 Chronic Other gastrointestinal disorders (1 source) Irregular bowel habits; Translations: [Other specified symptoms and signs involving the digestive system and abdomen] 01-29-2023 Episodic Other gastrointestinal disorders (1 source) Smearing feces; Translations: [Fecal smearing] 01-29-2023 Episodic Other hereditary and degenerative nervous system conditions (20 sources) Restless legs; Translations: [Restless leg] Onset: 2 01-17-2020 Chronic Comment on above: consider sleep study in future Other hereditary and degenerative nervous system conditions (1 source) Restless legs syndrome; Translations: [RLS (restless legs syndrome)] Onset: 2 Chronic Other injuries and conditions due to external causes (20 sources) Effect of exposure to external cause; Translations: [External constriction of neck] 02-28-2020 Episodic Comment on above: feeling of this cons triction since total thyroidectomy feeling of this cons triction since total thyroidectomy in Has had Upper GI Normal on [id number] esophagus (barium swallow) with fluroscopy, Normal no stricture done on 03-07-2020, consider CT of soft tissue Other injuries and conditions due to external causes (2 sources) Closed injury of head; Translations: [Unspecified injury of head, initial encounter] 07-07-2022 Episodic Other lower respiratory disease (20 sources) Cough; Translations: [Cough] 02-28-2020 Episodic Comment on above: asthma as a child asthma as a child, l isinopril DCed Other lower respiratory disease (1 source) Rib pain; Translations: [Pleurodynia] 06-29-2022 Episodic Other lower respiratory disease (1 source) Cough; Translations: [Acute cough] 03-10-2024 Episodic Other lower respiratory disease (1 source) Dyspnea; Translations: [Shortness of breath] 09-20-2024 Episodic Other lower respiratory disease (1 source) Shortness of breath; Translations: [Shortness of breath] Onset: 5 Episodic Other nervous system disorders (2 sources) Other chronic pain; Translations: [Chronic left hip pain] Onset: 4 Chronic Other nervous system disorders (1 source) Paresthesia of hand ; Translations: [Anesthesia of skin] Episodic Other non-traumatic joint disorders (7 sources) Shoulder pain; Translations: [Shoulder pain, left] 06-18-2021 Episodic Other non-traumatic joint disorders (1 source) Multiple joint pain; Translations: [Pain in unspecified joint] Episodic Other non-traumatic joint disorders (3 sources) Pain in right knee; Translations: [Right knee pain] 06-29-2022 Episodic Other non-traumatic joint disorders (3 sources) Hip pain; Translations: [Pain in right hip] 06-29-2022 Episodic Other non-traumatic joint disorders (1 source) Pain in right shoulder; Translations: [Pain in joint, shoulder region] 07-01-2022 Episodic Other screening for suspected conditions (not mental disorders or infectious disease) (2 sources) Plain X-ray result abnormal; Translations: [Abnormal findings on diagnostic imaging of other specified body structures] Chronic Other upper respiratory disease (14 sources) Allergic rhinitis; Translations: [Allergic rhinitis] 05-03-2021 Chronic Other upper respiratory disease (6 sources) Seasonal allergy; Translations: [Other seasonal allergic rhinitis] 10-25-2020 Chronic Other upper respiratory disease (1 source) Rhinitis; Translations: [Chronic rhinitis] 07-23-2023 Chronic Other upper respiratory disease (16 sources) Nasal congestion; Translations: [Nasal congestion] 01-11-2021 Episodic Other upper respiratory disease (8 sources) Pain in throat Episodic Other upper respiratory infections (20 sources) Sinusitis; Translations: [Sinusitis] 05-03-2021 Chronic Other upper respiratory infections (8 sources) Sore throat symptom; Translations: [Sore throat] 01-11-2021 Episodic Peripheral and visceral atherosclerosis (4 sources) Intermittent claudication; Translations: [Peripheral vascular disease, unspecified] Onset: 5 08-08-2024 Chronic Residual codes; unclassified (20 sources) Insomnia; Translations: [Insomnia] 01-17-2020 Episodic Residual codes; unclassified (20 sources) History of thyroidectomy; Translations: [H/O thyroidectomy] 01-17-2020 Episodic Comment on above: from enlarging goite r that affected swallowing and airway October 2018 , labs done in [place] August 2019 Residual codes; unclassified (17 sources) Needs influenza immunization; Translations: [Need for prophylactic vaccination and inoculation against influenza (Renamed from Need for immunization against influenza)] 01-17-2020 Episodic Residual codes; unclassified (20 sources) Postmenopausal state; Translations: [Postmenopausal] 01-17-2020 Episodic Residual codes; unclassified (20 sources) Body mass index 20-24 - normal; Translations: [BMI 21.0-21.9, adult] 06-08-2020 Episodic Residual codes; unclassified (20 sources) Non-smoker; Translations: [Nonsmoker] 06-08-2020 Episodic Residual codes; unclassified (1 source) History of episiotomy; Translations: [Other specified postprocedural states] 01-29-2023 Episodic Screening and history of mental health and substance abuse codes (2 sources) Encounter for screening for depression; Translations: [Encounter for screening examination for other mental health and behavioral disorders] Onset: 5 Episodic Spondylosis; intervertebral disc disorders; other back problems (20 sources) Cervical arthritis; Translations: [Spondylosis without myelopathy or radiculopathy, cervical region] Onset: 2 Resolved: 2 Chronic Superficial injury; contusion (9 sources) Contusion of sacral region; Translations: [Contusion of lower back and pelvis, initial encounter] 06-29-2022 Episodic Systemic lupus erythematosus and connective tissue disorders (1 source) Mucous membrane dryness; Translations: [Sicca syndrome, unspecified] Chronic Thyroid disorders (20 sources) Hypothyroidism; Translations: [Hypothyroid] 01-17-2020 Chronic Unclassified (20 sources) BMI 21.0-21.9, adult; Translations: [Body mass index 20-24 - normal] 01-17-2020 Unclassified (20 sources) Nonsmoker; Translations: [Non-smoker] 01-17-2020 Unclassified (20 sources) Unclassified (13 sources) Heel pain, chronic, left Unclassified (1 source) Lumbar back pain; Translations: [Lumbar back pain] Onset: 3 Unclassified (1 source) Chronic midline low back pain without sciatica; Translations: [Chronic midline low back pain without sciatica] Onset: 4 Unclassified (1 source) Supraventricular tachycardia, unspecified; Translations: [Supraventricular tachycardia, unspecified] Onset: 5 Viral infection (6 sources) Disease caused by 2019-nCoV; Translations: [COVID-19] 10-12-2021 Episodic Past or Other Problems Problem Classification Problem Date Documented Date Episodic/Chronic Administrative/social admission (20 sources) Advance directive discussed with patient; Translations: [Other specified counseling] Onset: 07-23-2023 07-23-2023 Episodic Diabetes mellitus without complication (20 sources) Hyperglycemia; Translations: [Hyperglycemia, unspecified] Onset: 11-19-2021 11-19-2021 Episodic E Codes: Fall (20 sources) Fall; Translations: [Unspecified fall, initial encounter] Onset: 08-29-2022 06-29-2022 Episodic Immunizations and screening for infectious disease (20 sources) Need for prophylactic vaccination and inoculation against influenza; Translations: [Needs influenza immunization] Onset: 11-21-2021 06-08-2020 Episodic Mood disorders (15 sources) Mood disorders Other bone disease and musculoskeletal deformities (20 sources) Senile osteopenia; Translations: [Other specified disorders of bone density and structure, unspecified site] Onset: 08-26-2023 08-26-2023 Episodic Other connective tissue disease (20 sources) Pain in left arm; Translations: [Pain in left arm] Onset: 12-18-2021 Resolved: 02-17-2022 Episodic Other connective tissue disease (20 sources) Weakness of left hand; Translations: [Other symptoms and signs involving the musculoskeletal system] Onset: 12-18-2021 Episodic Other connective tissue disease (20 sources) Pain of left hand; Translations: [Pain in left hand] Onset: 12-18-2021 Episodic Other connective tissue disease (20 sources) Plantar fasciitis; Translations: [Plantar fascial fibromatosis] Onset: 06-02-2024 06-02-2024 Episodic Other infections; including parasitic (20 sources) Personal history of other infectious and parasitic diseases; Translations: [History of COVID-19] Onset: 11-01-2021 11-01-2021 Episodic Other nervous system disorders (20 sources) Paresthesia of upper limb; Translations: [Anesthesia of skin] Onset: 01-01-2022 Resolved: 02-17-2022 Episodic Other nervous system disorders (20 sources) Numbness of upper limb; Translations: [Anesthesia of skin] Onset: 12-18-2021 12-18-2021 Episodic Other nervous system disorders (3 sources) Abnormal reflex; Translations: [Abnormal reflex] Onset: 12-17-2023 11-19-2023 Episodic Other non-traumatic joint disorders (1 source) Pain in left hip; Translations: [Chronic left hip pain] Onset: 05-26-2024 Episodic Other screening for suspected conditions (not mental disorders or infectious disease) (20 sources) Patient encounter status; Translations: [Colon cancer screening (Renamed from Encounter for screening for malignant neoplasm of colon)] Onset: 01-15-2022 06-08-2020 Episodic Spondylosis; intervertebral disc disorders; other back problems (20 sources) Backache; Translations: [Back pain] Onset: 05-21-2022 01-11-2021 Episodic Comment on above: from lifting baby ? like sciatica in past Unclassified (20 sources) Abortions/Miscarriage s; Translations: [Abortions/Miscarriag es] 01-17-2020 Comment on above: Spontaneous . 1. Unclassified (20 sources) Colon cancer screening (Renamed from Encounter for screening for malignant neoplasm of colon); Translations: [Patient encounter status] 01-17-2020 Unclassified (20 sources) Deliveries (Parity); Translations: [Deliveries (Parity)] 01-17-2020 Comment on above: 3 Unclassified (20 sources) Patient encounter status; Translations: [Encounter for screening mammogram for breast cancer (Renamed from Encounter for screening mammogram for malignant neoplasm of breast)] 01-17-2020 Unclassified (20 sources) Restless leg Unclassified (20 sources) Postmenopausal Unclassified (20 sources) Pregnancies (); Translations: [Pregnancies ()] 01-17-2020 Comment on above: 4 Unclassified (20 sources) External constriction of neck Unclassified (11 sources) Elevated serum creatinine Unclassified (16 sources) Unspecified Diagnosis 05-03-2021 Unclassified (4 sources) Shoulder pain, left Results Test Name Value Interpretation Reference Range Facility OV 10-14-2024 [facility] Office Visit ([facility] ) LILLIAN VELAZQUEZ ([id number]) 1955 F Date Time Provider Department 10/14/24 11:40 AM [facility] During your visit today, we recorded the following information about you: Temperature Pulse Respiration Blood pressure 98.4 degrees 53/minute 16/minute 112/78 Weight 53.1 kg Aziza Thompson PA-C 10/14/2024 12:04 PM Signed Chief Complaint Patient presents with: Recheck: Follow up medication HPI Lillian Velazquez is a 68 year old female who presents here today for recheck. Hypertension: - Recently switched from losartan to amlodipine; Lillian reports improved BP control. Bradycardia: - Noted HR in the 40s with associated fatigue. - Television Operator agreed with halving the beta-michelle dose to 12.5 mg, resulting in improved HR. - Scheduled for an echocardiogram and stress test in the next few weeks. - Still experiencing occasional palpitations. Leg Cramps: - Persistent leg cramps, particularly in the right foot, noted upon waking and stretching. - Flexeril provides some relief but causes significant grogginess and depressive symptoms. - Recent factory maintenance technician visit ruled out stump neuromas; factory maintenance technician suggested possible nerve involvement. - Lillian is taking gabapentin 300 mg, previously BID, now only at bedtime due to perceived lack of efficacy during the day. - Tried B-complex vitamins without noticeable improvement; discontinued last week. Past medical history, appointments, medications, allergies reviewed. Previous Medical History PAST MEDICAL HISTORY Diagnosis Date Elevated blood sugar 11/19/2021 History of COVID-19 11/01/2021 10/11/2021 Hyperlipidemia, mixed 12/24/2022 Hypertension, essential 11/01/2021 Lumbar back pain 05/21/2022 Osteopenia, senile 08/26/2023 Plantar fasciitis 06/02/2024 Rt Heel: injected 05/2024 Postoperative hypothyroidism 11/01/2021 Removed due to goiter. Primary insomnia 11/01/2021 RLS (restless legs syndrome) 11/01/2021 On gabapentin Previous Surgical History PAST SURGICAL HISTORY Procedure Laterality Date COLONOSCOPY 01/22/2023 repeat 5 years CYST/MOLE REMOVAL Left 1977 benign cyst- Left breast PAST SURGICAL HISTORY OF 2018 cervical fusion PAST SURGICAL HISTORY OF 2017 right shoulder decompression PAST SURGICAL HISTORY OF Bilateral foot surgery THYROIDECTOMY 10/2018 due to goiter, no cancer TONSILLECTOMY HX 8 yo Family History FAMILY HISTORY Problem Relation Age of Onset Cancer Mother Lung? other (a. fib) Father other (TIA) Father Hyperlipidemia Father Hypertension Father Hypertension Sister Stroke Maternal Grandmother Diabetes Maternal Grandmother Ischemic Heart Disease Maternal Grandfather Heart disease Maternal Grandfather Stroke Paternal Grandmother Heart Attack Paternal Grandfather Ovarian cancer Maternal Aunt Patient Allergies ALLERGIES Allergen Reactions Augmentin [Amoxicil* GI Upset Current Medications Current Outpatient Medications on File Prior to Visit Medication Sig amLODIPine (NORVASC) 5 mg tablet Take 1 tablet by mouth once daily. cyclobenzaprine (FLEXERIL) 10 mg tablet Take 1 tablet by mouth three times a day as needed for muscle spasm. rosuvastatin (CRESTOR) 20 mg tablet Take 1 tablet by mouth daily at bedtime. levothyroxine (LEVOXYL) 100 mcg tablet Take 1 tablet by mouth once daily. gabapentin (NEURONTIN) 300 mg capsule Take 1 capsule by mouth two times a day for 180 days. traZODone (DESYREL) 150 mg tablet Take 1 tablet by mouth daily at bedtime. multivit with minerals/lutein (MULTIVITAMIN 50 PLUS ORAL) Take by mouth once daily. docosahexaenoic acid/epa (FISH OIL ORAL) Take by mouth as directed. TURMERIC ORAL Take by mouth as directed. dicyclomine (BENTYL) 10 mg capsule Take 1 capsule by mouth before meals and at bedtime. betamethasone dipropionate (DIPROSONE) 0.05 % cream Apply to affected area twice daily. No current facility-administered medications on file prior to visit. Social History Social History Tobacco Use Smoking status: Never Smokeless tobacco: Never Vaping Use Vaping status: Never Used Substance Use Topics Alcohol use: Not Currently Comment: occasionally Drug use: Never Review of Symptoms REVIEW OF SYSTEMS SEE HPI EXAM: BP 112/78 (BP Site: Left Arm, BP Position: Sitting, BP Cuff Size: Regular Adult) Pulse (!) 53 Temp 36.9 ?C (98.4 ?F) Resp 16 Wt 53.1 kg (117 lb) SpO2 98% BMI 21.53 kg/m? General Appearance: Well appearing, alert, in no acute distress, well-hydrated, well nourished.. Health Maintenance List DTaP,Tdap,Td Vaccine(1 - Tdap) Never done Shingrix Vaccine(1 of 2) Never done Covid-19 Vaccine( - season) due on 02/07/2025 Mammogram Screening due on 07/18/2025 Depression Screening due on 08/08/2025 Anxiety Screening due on 08/08/2025 Annual PCP Team Chronic (more content not included)... Normal [facility] CNTHERAPYon 10-07-2024 CNTHERAPY OT/PT/Speech Visit ( PTWS) LILLIAN VELAZQUEZ ([id number]) 1955 F Date Time Provider Department 10/07/24 2:15 PM QUOC MCCRACKEN PTWS Date Time Provider Department Center 10/07/2024 2:15 PM [id number], COREY PTWS Sonido Ventura Reason for Visit: PT Discharge [752] Primary Visit Diagnosis:Plantar fasciitis of right foot [M72.2] Allergies As of Date: 10/07/2024 Noted Allergy Reaction AUGMENTIN (AMOXICILLIN-POT CLAVUL*11/01/2021 8 - GI Upset Date Reviewed: 09/28/2024 Reviewed by: New Renee LPN - Fully Assessed Prescriptions as of 10/07/2024 - metoprolol succinate ER (TOPROL XL) 25 mg 24 hr tablet Take 1 tablet by mouth once daily. - amLODIPine (NORVASC) 5 mg tablet Take 1 tablet by mouth once daily. - cyclobenzaprine (FLEXERIL) 10 mg tablet Take 1 tablet by mouth three times a day as needed for muscle spasm. - rosuvastatin (CRESTOR) 20 mg tablet Take 1 tablet by mouth daily at bedtime. - levothyroxine (LEVOXYL) 100 mcg tablet Take 1 tablet by mouth once daily. - gabapentin (NEURONTIN) 300 mg capsule Take 1 capsule by mouth two times a day for 180 days. - traZODone (DESYREL) 150 mg tablet Take 1 tablet by mouth daily at bedtime. - busPIRone (BUSPAR) 15 mg tablet Take 0.5 tablets by mouth two times a day for 14 days, THEN 1 tablet two times a day. - multivit with minerals/lutein (MULTIVITAMIN 50 PLUS ORAL) Take by mouth once daily. - docosahexaenoic acid/epa (FISH OIL ORAL) Take by mouth as directed. - TURMERIC ORAL Take by mouth as directed. - dicyclomine (BENTYL) 10 mg capsule Take 1 capsule by mouth before meals and at bedtime. - betamethasone dipropionate (DIPROSONE) 0.05 % cream Apply to affected area twice daily. Normal [facility] CNOVon 09-28-2024 [facility] Office Visit (FAMPWS ) LILLIAN VELAZQUEZ ([id number]) 1955 F Date Time Provider Department 09/28/24 11:40 AM AZIZA THOMPSON During your visit today, we recorded the following information about you: Temperature Pulse Respiration Blood pressure 98.4 degrees 44/minute 16/minute 120/86 Weight 53.1 kg Aziza Thompson PA-C 09/28/2024 1:04 PM Signed Chief Complaint Patient presents with: Follow Up: Leg cramps HPI Lillian Velazquez is a 68 year old female who presents here today for follow up on leg cramp symptoms. She says she does not get them every night, but when they do occur it is a sharp severe pain in her calf. The cramping rotates between legs and she also experiences foot cramping in both feet that switch from L to R too. 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 She will be seeing her factory maintenance technician next week to evaluate further. She has not noticed much improvement when stopping the pravastatin. She is taking a b complex vitamin which includes vitb6 at 100mg. She denies any reddness, swelling, or warmth in the b/l LE. Patient with a PMHx of HLD, HTN, osteopenia, plantar fasciitis, postoperative hypothyroidism, RLS Past medical history, appointments, medications, allergies reviewed. Previous Medical History PAST MEDICAL HISTORY Diagnosis Date Elevated blood sugar 11/19/2021 History of COVID-19 11/01/2021 10/11/2021 Hyperlipidemia, mixed 12/24/2022 Hypertension, essential 11/01/2021 Lumbar back pain 05/21/2022 Osteopenia, senile 08/26/2023 Plantar fasciitis 06/02/2024 Rt Heel: injected 05/2024 Postoperative hypothyroidism 11/01/2021 Removed due to goiter. Primary insomnia 11/01/2021 RLS (restless legs syndrome) 11/01/2021 On gabapentin Previous Surgical History PAST SURGICAL HISTORY Procedure Laterality Date COLONOSCOPY 01/22/2023 repeat 5 years CYST/MOLE REMOVAL Left 1977 benign cyst- Left breast PAST SURGICAL HISTORY OF 2018 cervical fusion PAST SURGICAL HISTORY OF 2017 right shoulder decompression PAST SURGICAL HISTORY OF Bilateral foot surgery THYROIDECTOMY 10/2018 due to goiter, no cancer TONSILLECTOMY HX 8 yo Family History FAMILY HISTORY Problem Relation Age of Onset Cancer Mother Lung? other (a. fib) Father other (TIA) Father Hyperlipidemia Father Hypertension Father Hypertension Sister Stroke Maternal Grandmother Diabetes Maternal Grandmother Ischemic Heart Disease Maternal Grandfather Heart disease Maternal Grandfather Stroke Paternal Grandmother Heart Attack Paternal Grandfather Ovarian cancer Maternal Aunt Patient Allergies ALLERGIES Allergen Reactions Augmentin [Amoxicil* GI Upset Current Medications Current Outpatient Medications on File Prior to Visit Medication Sig metoprolol succinate ER (TOPROL XL) 25 mg 24 hr tablet Take 1 tablet by mouth once daily. levothyroxine (LEVOXYL) 100 mcg tablet Take 1 tablet by mouth once daily. gabapentin (NEURONTIN) 300 mg capsule Take 1 capsule by mouth two times a day for 180 days. traZODone (DESYREL) 150 mg tablet Take 1 tablet by mouth daily at bedtime. losartan (COZAAR) 25 mg tablet Take 1 tablet by mouth once daily. Take one tablet daily busPIRone (BUSPAR) 15 mg tablet Take 0.5 tablets by mouth two times a day for 14 days, THEN 1 tablet two times a day. multivit with minerals/lutein (MULTIVITAMIN 50 PLUS ORAL) Take by mouth once daily. docosahexaenoic acid/epa (FISH OIL ORAL) Take by mouth as directed. TURMERIC ORAL Take by mouth as directed. dicyclomine (BENTYL) 10 mg capsule Take 1 capsule by mouth before meals and at bedtime. betamethasone dipropionate (DIPROSONE) 0.05 % cream Apply to affected area twice daily. pravastatin (PRAVACHOL) 20 mg tablet Take 1 tablet by mouth daily at bedtime. No current facility-administered medications on file prior to visit. Social History Social History Tobacco Use Smoking status: Never Smokeless tobacco: Never Vaping Use Vaping status: Never Used Substance Use Topics Alcohol use: Not Currently Comment: occasionally Drug use: Never Review of Symptoms REVIEW OF SYSTEMS See hpi EXAM: BP 120/86 (BP Site: Right Arm, BP Position: Sitting, BP Cuff Size: Regular Adult) Pulse (!) 44 Temp 36.9 ?C (98.4 ?F) Resp 16 Wt 53.1 kg (117 lb) SpO2 99% BMI 21.53 kg/m? General Appearance: Well appearing, alert, in no acute distress, well-hydrated, well nourished.. Health Maintenance List DTaP,Tdap,Td Vaccine(1 - Tdap) Never done Shingrix Vaccine(1 of 2) Never done Covid-19 Vaccine() due on 02/07/2025 Mammogram Screening due on 07/18/2025 Depression Screening due on 08/08/2025 Anxiety Screening due on 08/08/2025 Annual PCP Team Chronic Disease Visit due on 08/25/2025 Diabetes Screeni (more content not included)... Normal [facility] PVR ANK PRESS W/EXC [facility] LABon 09-21-2024 PVR ANK PRESS W/EXC [facility] Non-Invasive Vascular Laboratory [facility] Lower Extremity Arterial Physiology Study Bilateral/Complete Date of service/time: 09/21/2024 8:39:38 AM Name: LILLIAN VELAZQUEZ Date of : 1955 Age: 68 years Gender: F Clinical Indication Pain at rest in leg and claudication. TECHNIQUE -------- An arterial physiological examination was performed, including measurement of blood pressures using continuous wave Doppler and recording of plethysmographic with or without Doppler waveforms at the below-mentioned limb segments. FINDINGS -------- RIGHT SIDE AT REST Right Doppler Waveforms Dorsalis pedis: Multiphasic. Post tibial: Multiphasic. Right Pressures Brachial: 132 mmHg Ankle dorsalis pedis: 146 mmHg KOREY: 1.11 Ankle posterior tibial: 155 mmHg KOREY: 1.17 Right PVR Waveforms High thigh: Normal. Low thigh: Normal. Calf: Normal. Ankle: Normal. Transmetatarsal: Normal. Digit: Normal. LEFT SIDE AT REST Left Doppler Waveforms Dorsalis pedis: Multiphasic. Post tibial: Multiphasic. Left Pressures Brachial: 132 mmHg Ankle dorsalis pedis: 148 mmHg KOREY: 1.12 Ankle posterior tibial: 151 mmHg KOREY: 1.14 Left PVR Waveforms High thigh: Normal. Low thigh: Normal. Calf: Normal. Ankle: Normal. Transmetatarsal: Normal. Digit: Normal. POST EXERCISE Toe raises. No symptoms with exercise. Reason test was terminated: end of protocol. Post Exercise: Immediate Right Pressures and Waveform Brachial: 135 mmHg Ankle: 162 mmHg KOREY: 1.20 Ankle waveform: Normal. Left Pressures and Waveform Ankle: 166 mmHg KOREY: 1.23 Ankle waveform: Normal. IMPRESSION RIGHT SIDE Resting right ankle brachial index: 1.17 Post exercise right ankle brachial index: 1.20 Normal ankle brachial index at rest in the right leg. Normal toe brachial index at rest in the right leg. Right ankle: Normal at rest. No significant change in pressure and/or ankle-brachial index with exercise. LEFT SIDE Resting left ankle brachial index: 1.14 Post exercise left ankle brachial index: 1.23 Normal ankle brachial index at rest in the left leg. Normal toe brachial index at rest in the left leg. Left ankle: Normal at rest. No significant change in pressure and/or ankle-brachial index with exercise. Technologist: Valarie Gaming T Ordering physician: AZIZA THOMPSON Interpreting physician: Lance Lee MD, RPVI Final CC [employer] Image : [id number] See Link below for Image Normal [facility] TSH SerPl-aCncon 09-20-2024 TSH Qn 5.240 m[IU]/L High 0.270-4.20 0 [facility] Comment on above: Order Comment: Speci men Type: BLOOD SPECIMENOrdering Facility: [facility] Address: [address] [place] [address] Performed By: #### 3 [id number] ####[facility] [id number] [place] [address] [place] Cardiology Visit Reporton Cardiology Visit Report [facility] [address] [place] [address]. [address] [place], [place] [address] OFFICE VISIT Date of Service: 09/19/24 MR#: [id number] Acct: [id number] Name: LILLIAN VELAZQUEZ [place] Rep #: [id number] : 1955 Provider: Dr. Bg Goldstein MD Age/Sex: 68/F Location[place] [facility] Status: Signed HPI HPI History of Present Illness Details: This lady with past medical history significant for generalized anxiety disorder, hypertension and dyslipidemia is here for establishing cardiac care. Recently she has had event monitoring done for her complaints of palpitations. It showed few brief supraventricular runs. The longest run was 11 beats long. Per patient, she started having palpitations over the last year or so. She feels her heart fluttering for a few seconds at most. Occasionally feels lightheaded with that. No syncope. Question of presyncope. No associated chest pain. Some shortness of breath associated with these. Denies any chest pains at rest or with exertion. Denies orthopnea. No PND. No ankle edema. Patient has history of hypothyroidism and is on thyroid replacement therapy. Admits to drinking couple of cups of coffee every day. Denies EtOH or substance abuse. Intake Vital Signs 06/29/22 13:23 09/15/24 18:27 09/19/24 11:28 Height 5 ft 2 in 5 ft 2 in Weight: 116 lb 118 lb BMI 21.5 BP 149/94 H Blood Pressure Location Lt brachial Position Sitting Respiration 18 Pulse 61 Pulse Source NIBP Intake Visit Reasons: SVT (GO) Registered Representative Required: No Accompanied by: Is patient in pain?: No Allergies amoxicillin (From Augmentin) Adverse Reaction (Intermediate, Verified 09/19/24 14:33) diarrhea clavulanic acid (From Augmentin) Adverse Reaction (Intermediate, Verified 09/19/24 14:33) diarrhea Medications ???Medication ???Instructions ???Recorded ???Confirmed ???Type cholecalciferol (vitamin D3) 25 25 mcg PO DAILY 10/25/20 09/19/24 History mcg (1,000 unit) capsule diphenhydramine HCl 25 mg tablet 25 mg PO .prn PRN Headache 1 09/19/24 History (Benadryl Allergy) gabapentin 300 mg capsule 300 mg PO QHS 10/25/20 09/19/24 Hi story levothyroxine 88 mcg tablet 88 mcg PO DAILY 10/25/20 09/19/24 History trazodone 50 mg tablet 150 mg PO QHS 10/25/20 09/19/24 Hi story alprazolam 0.5 mg tablet (Xanax) 0.5 mg PO .as needed for flying #7 12/14/20 09/19/24 Rx tabs oxycodone-acetaminophen 5 mg-325 1 tab PO Q8H PRN pain 5 days #14 0 06/29/22 09/19/24 Rx mg tablet (Endocet) tabs betamethasone dipropionate 0.05 % 1 applic topical BID PRN 09/15/24 09/19/24 History topical cream buspirone 5 mg tablet 5 mg PO TID PRN 09/15/24 09/19/24 History dicyclomine 10 mg capsule 10 mg PO TID 09/15/24 09/19/24 His tory docosahexaenoic acid PO DAILY 09/15/24 09/19/24 History losartan 50 mg tablet 50 mg PO QDAY 09/15/24 09/19/24 Hi story qjzuroat-jni-jpgr-FA-vit K-lut PO DAILY 09/15/24 09/19/24 History [Multivitamin Women 50 Plus] pravastatin 20 mg tablet 20 mg PO QHS 09/15/24 09/19/24 His tory turmeric PO DAILY 09/15/24 09/19/24 History Have you fallen in the past year?: No PFSH Medical History Alcohol use Anxiety Back pain Breast lump Depression Elevated blood sugar Generalized anxiety disorder GERD (gastroesophageal reflux disease) Headache Heartburn Hyperlipidemia Hyperlipidemia, mixed Hypernatremia Hypertension Hypertension, essential Hypoglycemia IBS (irritable bowel syndrome) Leg cramps Lumbar back pain Non-smoker Osteopenia, senile Palpitations Plantar fasciitis Post-menopausal Postoperative hypothyroidism Postoperative primary hypothyroidism Primary insomnia Restless legs Seasonal allergies Thyroid disease UTI (urinary tract infection) Wears glasses Surgical History H/O dilation and curettage H/O removal of cyst H/O shoulder surgery H/O spinal fusion H/O thyroidectomy Family History Grandmother Anxiety Diabetes High cholesterol CVA (cerebral vascular accident) Mother Cancer Father Depression Hypertension Kidney disease Sister Depression Hypertension Brother Depression Aunt Ovarian cancer Grandfather Myocardial infarction Social History Smoking Status: Never smoker Electronic Cigarette Use: not used alcohol intake: current alcohol intake frequency: a few times a week substance use type: does not use what type of physical activity do you participate in: walking ROS Const Const: Positive for fatigue and weakness (episodic); Negative for headache(s) or weight gain (more content not included)... Normal [facility] Magnesiumon 09-19-2024 Magnesium [Mass/Vol] 2.4 mg/dL High 1.5-2.2 [facility] Comment on above: Performed By: #### L [id number], [id number] #### [facility] Laboratory [address] [place], [address] Magnesium measurement (mass/ volume)Ordered By: Bg Goldstein on 09-19-2024 Magnesium (Unsp spec) [Mass/Vol] 2.4 mg/dL High 1.5-2.2 [facility] TSH (EXTERNAL)on 09-19-2024 Interpretation and review of laboratory results Abnormal [facility] TSH Qn 5.24 m[IU]/L Abnormal [facility] TSH DL <= 0.005 mIU/L QnOrde red By: Bg Goldstein on 09-19-2024 TSH Qn 5.240 uIU/mL High 0.300-4.20 0 [facility] Thyroid Stim Hormone (TSH)on 09-19-2024 TSH 5.240 uIU/mL High 0.300-4.20 0 [facility] Comment on above: Performed By: #### L [id number], [id number] #### [facility] Laboratory [address] [place], [place], [address] CNOVon 08-25-2024 [facility] LILLIAN VELAZQUEZ ([id number]) 1955 F Date Time Provider Department 08/25/24 12:20 PM AZIZA THOMPSON During your visit today, we recorded the following information about you: Temperature Pulse Respiration Blood pressure 98.3 degrees 53/minute 16/minute 132/82 Weight 52.6 kg Aziza Thompson PA-C 08/25/2024 12:51 PM Signed Chief Complaint Patient presents with: Follow Up: Blood pressure HPI Lillian Velazquez is a 68 year old female who presents here today for Above Complaints.. Hypertension: - Home BP readings: 120s-130s/80s. - Reduced losartan from 50 mg to 25 mg x2 weeks due to leg cramps; BP remains stable. - BP previously increased in May-June, with diastolic readings in the 100s; attributed to stress while caring for elderly father. - Pulse typically in the 50s-60s. Leg Cramps: - Increased frequency and severity of leg and foot cramps over the past few months, interfering with sleep. - Noticed improvement after reducing losartan and discontinuing daytime Neurontin. - Scheduled for a blood flow test on September 21 due to leg cramps and pain with walking. Hyperlipidemia: - On pravastatin since 2022 for elevated cholesterol levels. Anxiety: - Experiencing increased anxiety due to 's cancer recurrence and upcoming major surgery. - Reports feeling off, with periods of numbness and desire to isolate. - Taking BuSpar, finds it helpful but unsure if taking it frequently enough. - History of adverse reactions to SSRIs and Effexor; Wellbutrin was ineffective. Past medical history, appointments, medications, allergies reviewed. Previous Medical History PAST MEDICAL HISTORY Diagnosis Date Elevated blood sugar 11/19/2021 History of COVID-19 11/01/2021 10/11/2021 Hyperlipidemia, mixed 12/24/2022 Hypertension, essential 11/01/2021 Lumbar back pain 05/21/2022 Osteopenia, senile 08/26/2023 Plantar fasciitis 06/02/2024 Rt Heel: injected 05/2024 Postoperative hypothyroidism 11/01/2021 Removed due to goiter. Primary insomnia 11/01/2021 RLS (restless legs syndrome) 11/01/2021 On gabapentin Previous Surgical History PAST SURGICAL HISTORY Procedure Laterality Date COLONOSCOPY 01/22/2023 repeat 5 years CYST/MOLE REMOVAL Left 1977 benign cyst- Left breast PAST SURGICAL HISTORY OF 2018 cervical fusion PAST SURGICAL HISTORY OF 2017 right shoulder decompression PAST SURGICAL HISTORY OF Bilateral foot surgery THYROIDECTOMY 10/2018 due to goiter, no cancer TONSILLECTOMY HX 8 yo Family History FAMILY HISTORY Problem Relation Age of Onset Cancer Mother Lung? other (a. fib) Father other (TIA) Father Hyperlipidemia Father Hypertension Father Hypertension Sister Stroke Maternal Grandmother Diabetes Maternal Grandmother Ischemic Heart Disease Maternal Grandfather Heart disease Maternal Grandfather Stroke Paternal Grandmother Heart Attack Paternal Grandfather Ovarian cancer Maternal Aunt Patient Allergies ALLERGIES Allergen Reactions Augmentin [Amoxicil* GI Upset Current Medications Current Outpatient Medications on File Prior to Visit Medication Sig losartan (COZAAR) 50 mg tablet Take 1 tablet by mouth once daily. Take one tablet daily pravastatin (PRAVACHOL) 20 mg tablet Take 1 tablet by mouth daily at bedtime. traZODone (DESYREL) 150 mg tablet Take 1 tablet by mouth daily at bedtime. levothyroxine (SYNTHROID) 88 mcg tablet Take 1 tablet by mouth daily before breakfast. Take one tablet daily before breakfast busPIRone (BUSPAR) 5 mg tablet Take 1 tablet by mouth three times a day as needed. PRN multivit with minerals/lutein (MULTIVITAMIN 50 PLUS ORAL) Take by mouth once daily. docosahexaenoic acid/epa (FISH OIL ORAL) Take by mouth as directed. TURMERIC ORAL Take by mouth as directed. gabapentin (NEURONTIN) 300 mg capsule Take 1 capsule by mouth two times a day for 180 days. dicyclomine (BENTYL) 10 mg capsule Take 1 capsule by mouth before meals and at bedtime. betamethasone dipropionate (DIPROSONE) 0.05 % cream Apply to affected area twice daily. MAGNESIUM ORAL Take by mouth as directed. (Patient not taking: Reported on 08/25/2024) No current facility-administered medications on file prior to visit. Social History Social History Tobacco Use Smoking status: Never Smokeless tobacco: Never Vaping Use Vaping status: Never Used Substance Use Topics Alcohol use: Not Currently Comment: occasionally Drug use: Never Review of Symptoms REVIEW OF SYSTEMS SEE HPI EXAM: BP 132/82 (BP Site: Right Arm, BP Position: Sitting, BP Cuff Size: Regular Adult) Pulse (!) 53 Temp 36.8 ?C (98.3 ?F) Resp 16 Wt 52.6 kg (116 lb) SpO2 98% BMI 21.35 kg/m? General Appearance: Well appearing, alert, in no acute distress, well-hydrated, well nourished.. Health Maintenanc (more content not included)... Normal [facility] [id number] 08-22-2024 [id number] HNO ID: [id number] Author: QUOC MCCRACKEN PT Service: ? Author Type: Physical Therapist Type: [id number] Filed: 08/22/2024 14:41 Note Text: [facility] Physical Therapy Plan of Care Certification Patient Name: Lillian Velazquez : 1955 [facility] #: [id number] Date: 08/22/2024 To: Aziza Thompson PA-C From Therapist: Quoc Mccracken PT RE: Patient Certification/ Recertification Your review, approval and electronic signature are required in order to comply with Payor: [employer] MEDICARE / Plan: [employer] / Product Type: HMO / regulations. The identified Physical Therapy PLAN OF CARE for the patient is as follows: M72.2 Plantar fasciitis of right foot (primary encounter diagnosis) PLAN OF CARE UPDATE: Assessment: Lillian Velazquez demonstrates significant improvement in low back pain and foot pain and lumbar AROM . The patient has progressed toward goals. Patient continues to present with impairments in ADL's and independence in exercise that interfere with nothing . Current prognosis is Good due to: current objective clinical presentation . The patient will benefit from continued skilled therapy services to meet the updated goals for this plan of care as noted below. Goals updated 08/04/2024 Goals for Episode of Care: established 07/18/24 [place] in home exercise program. - MET Perform standing/walking without pain. - MET Improve flexibility of R gastrocnemius to WNL for decreased stress to the R plantar fascia when walking - Nearly met Normal gait.- MET Pt will report being able to do the dishes without pain in 3 weeks or less (NEW) Patient Goals: Help prevent foot pain Time Frame for Goals and Treatment : 08/15/24 Planned Interventions, Frequency, and Duration: 1 visit, Two months Total Number of Visits Planned: 1 Patient to be seen for Therapeutic exercise (93784), Neuromuscular re-education (03712), Manual therapy (88892), Therapeutic activities (98494), Self-skilled nursing management (78797), Patient/Family/Caregiver Education, Body Mechanics Training PLAN FOR NEXT VISIT: For further details regarding this patient refer to the Physical Therapy electronically documented visit dated 08/22/2024. Provider Attestation I have reviewed the treatment plan for Lillian Velazquez, [facility]# [id number] for the period of 08/22/24 -- 10/17/24, established on 08/22/2024. Signature certifies the need for therapy services. Normal [facility] CNTHERAPYon 08-22-2024 CNTHERAPY OT/PT/Speech Visit ( PTWS) LILLIAN VELAZQUEZ ([id number]) 1955 F Date Time Provider Department 08/22/24 2:00 PM QUOC MCCRACKEN PTWS Date Time Provider Department Center 08/22/2024 2:00 PM [id number], COREY PTWS Sonido Ventura Reason for Visit: PT Progress Note [1596] Primary Visit Diagnosis:Plantar fasciitis of right foot [M72.2] Allergies As of Date: 08/22/2024 Noted Allergy Reaction AUGMENTIN (AMOXICILLIN-POT CLAVUL*11/01/2021 8 - GI Upset Date Reviewed: 08/08/2024 Reviewed by: New Renee LPN - Fully Assessed Prescriptions as of 09/09/2024 - losartan (COZAAR) 25 mg tablet Take 1 tablet by mouth once daily. Take one tablet daily - busPIRone (BUSPAR) 15 mg tablet Take 0.5 tablets by mouth two times a day for 14 days, THEN 1 tablet two times a day. - pravastatin (PRAVACHOL) 20 mg tablet Take 1 tablet by mouth daily at bedtime. - traZODone (DESYREL) 150 mg tablet Take 1 tablet by mouth daily at bedtime. - levothyroxine (SYNTHROID) 88 mcg tablet Take 1 tablet by mouth daily before breakfast. Take one tablet daily before breakfast - multivit with minerals/lutein (MULTIVITAMIN 50 PLUS ORAL) Take by mouth once daily. - docosahexaenoic acid/epa (FISH OIL ORAL) Take by mouth as directed. - TURMERIC ORAL Take by mouth as directed. - gabapentin (NEURONTIN) 300 mg capsule Take 1 capsule by mouth two times a day for 180 days. - dicyclomine (BENTYL) 10 mg capsule Take 1 capsule by mouth before meals and at bedtime. - betamethasone dipropionate (DIPROSONE) 0.05 % cream Apply to affected area twice daily. Normal [facility] Comprehensive metabolic 2000 panelon 08-09-2024 Albumin [Mass/Vol] 4.8 g/dL 3.9 - 4.9 g/dL [facility] ALP [Catalytic activity/Vol] 67 U/L 34 - 123 U/L [facility] ALT [Catalytic activity/Vol] 22 U/L 7 - 38 U/L [facility] Anion gap [Moles/Vol] 13 mmol/L 8 - 15 mmol/L [facility] AST [Catalytic activity/Vol] 24 U/L 13 - 35 U/L [facility] Bilirubin [Mass/Vol] 0.3 mg/dL 0.2 - 1.3 mg/dL [facility] Calcium [Mass/Vol] 9.1 mg/dL 8.5 - 10. 2 mg/dL [facility] Chloride [Moles/Vol] 103 mmol/L 98 - 107 mmol/L [facility] CO2 [Moles/Vol] 24 mmol/L 22 - 30 mmol/L [facility] Creatinine [Mass/Vol] 0.83 mg/dL 0.58 - 0.96 mg/dL [facility] GFR/1.73 sq M.predicted among non-blacks MDRD (S/P/Bld) [Vol rate/Area] 77 mL/min/{1.73_m2} - PINF [facility] Comment on above: Estimated Glomerular Filtration Rate (eGFR) is calculated using the 2020 CKD-EPI creatinine equation. This equation utilizes serum creatinine, sex, and age as parameters. The creatinine assay has traceable calibration to isotope dilution-mass spectrometry. Refer to KDIGO guidelines for clinical interpretation. In patients with unstable renal function, e.g. those with acute kidney injury, the eGFR may not accurately reflect actual GFR. Glucose [Mass/Vol] 82 mg/dL 74 - 99 mg/dL [facility] Comment on above: The [place] Diabete s Association (ADA) provides guidance for cutoff values for fasting glucose and random glucose. The ADA defines fasting as no caloric intake for at least 8 hours. Fasting plasma glucose results between 100 to 125 mg/dL indicate increased risk for diabetes (prediabetes). Fasting plasma glucose results greater than or equal to 126 mg/dL meet the criteria for diagnosis of diabetes. In the absence of unequivocal hyperglycemia, results should be confirmed by repeat testing. In a patient with classic symptoms of hyperglycemia or hyperglycemic crisis, random plasma glucose results greater than or equal to 200 mg/dL meet the criteria for diagnosis of diabetes. Reference: Standards of Medical Care in Diabetes 2016, [place] Diabetes Association. Diabetes Care. 2016.39(Suppl 1). Interpretation and review of laboratory results Normal [facility] Potassium [Moles/Vol] 4.7 mmol/L 3.7 - 5.1 mmol/L [facility] Protein [Mass/Vol] 7.6 g/dL 6.3 - 8.0 g/dL [facility] Sodium [Moles/Vol] 140 mmol/L 136 - 144 mmol/L [facility] Urea nitrogen [Mass/Vol] 10 mg/dL 7 - 21 mg/dL [facility] FOLATE, SERUMon 08-09-2024 Folate [Mass/Vol] 19.6 ng/mL 4.7 - PINF ng/mL [facility] HbA1c (Bld)on 08-09-2024 Average glucose Estimated from glycated hemoglobin (Bld) [Mass/Vol] 97 mg/dL [facility] Comment on above: eAG: (Estimated aver age glucose) is a calculated value from HgbA1c and is independent sales representative of the average blood glucose level in the last 2-3 month period. HbA1c (Bld) [Mass fraction] 5 % 4.3 - 5.6 % [facility] Comment on above: [place] Diabetes As sociation guidelines indicate that patients with HgbA1c in the range 5.7-6.4% are at increased risk for development of diabetes, and intervention by lifestyle modification may be beneficial. HgbA1c greater or equal to 6.5% is considered diagnostic of diabetes. [facility] LIPID PANEL, NONFASTINGon Cholesterol [Mass/Vol] 232 mg/dL High NINF - 200 mg/dL [facility] Comment on above: <200 mg/dL, Desirabl e 200-239 mg/dL, Borderline high >239 mg/dL, High HDL Cholesterol, Nonfasting 81 mg/dL 39 - PINF mg/dL [facility] Comment on above: 40-59 mg/dL, Accepta ble >59 mg/dL, High: Negative risk factor for coronary heart disease <40 mg/dL, Low: Positive risk factor for coronary heart disease LDL Cholesterol Calculated, Nonfasting 132 mg/dL High NINF - 100 mg/dL [facility] Comment on above: <100 mg/dL, Optimal 100-129 mg/dL, Near optimal/above optimal 130-159 mg/dL, Borderline high 160-189 mg/dL, High >189 mg/dL, Very high Secondary prevention optimal LDL Cholesterol levels are recommended to be < 70 mg/dL LDL/HDL Ratio, Nonfasting 1.63 mg/dL NINF - 2.54 mg/dL [facility] Comment on above: Reference: 1. National Cholesterol Education Program ATP III Guideline At-A-Glance Quick Desk Reference: National Heart, Lung, and Blood [place]. National Institutes of Health. 2001: NIH Publication No. 01-3305. 2. An International Atherosclerosis Society position paper: global recommendations for the management of dyslipidemia: executive summary, Atherosclerosis. 2014: 232(2):410-413. Non HDL Cholesterol, Nonfasting 151 mg/dL High NINF - 130 mg/dL [facility] Comment on above: <130 mg/dL, Optimal 130-159 mg/dL, Near optimal/above optimal 160-189 mg/dL, Borderline high 190-219 mg/dL, High >219 mg/dL, Very high Secondary prevention optimal non HDL Cholesterol levels are recommended to be <100 mg/dL Total Chol/HDL Ratio, Nonfasting 2.86 mg/dL NINF - 5.10 mg/dL [facility] Triglycerides, Nonfasting 96 mg/dL NINF - 150 mg/dL [facility] Comment on above: <150 mg/dL, Normal 150-199 mg/dL, Borderline high 200-499 mg/dL, High >499 mg/dL, Very high VLDL Cholesterol, Nonfasting 19 mg/dL NINF - 30 mg/dL [facility] MAGNESIUMon 08-09-2024 Magnesium [Mass/Vol] 2.5 mg/dL High 1.7 - 2.3 mg/dL [facility] No Panel Informationon 08-09 Interpretation and review of laboratory results Normal [facility] Interpretation and review of laboratory results Abnormal [facility] THYROID STIMULATING HORMONEo n 08-09-2024 TSH Qn 1.75 m[IU]/L [facility] TSH Qnon 08-09-2024 Interpretation and review of laboratory results Normal [facility] VITAMIN B12on 08-09-2024 Cobalamin (Vitamin B12) [Mass/Vol] 736 pg/mL 232 - 1245 pg/mL [facility] CBC W Auto Differential pane l (Bld)on 08-08-2024 Basophils (Bld) [#/Vol] 0.07 10*3/uL [facility] Basophils/100 WBC (Bld) 0.8 % [facility] Differential cell count method Nom (Bld) Auto [facility] Eosinophils (Bld) [#/Vol] 0.1 10*3/uL [facility] Eosinophils/100 WBC (Bld) 1.2 % [facility] Erythrocyte distribution width (RBC) [Ratio] 12.6 % 11.5 - 15.0 % [facility] Hematocrit (Bld) [Volume fraction] 40 % 36.0 - 46.0 % [facility] Hemoglobin (Bld) [Mass/Vol] 13.2 g/dL 11.5 - 15.5 g/dL [facility] Immature granulocytes (Bld) [#/Vol] 0.03 10*3/uL [facility] Immature granulocytes/100 WBC (Bld) 0.4 % [facility] Lymphocytes (Bld) [#/Vol] 1.42 10*3/uL [facility] Lymphocytes/100 WBC (Bld) 16.7 % [facility] MCH (RBC) [Entitic mass] 31.4 pg 26.0 - 34.0 pg [facility] MCHC (RBC) [Mass/Vol] 33 g/dL 30.5 - 36.0 g/dL [facility] MCV (RBC) [Entitic vol] 95.2 fL 80.0 - 100.0 fL [facility] Monocytes (Bld) [#/Vol] 0.66 10*3/uL [facility] Monocytes/100 WBC (Bld) 7.8 % [facility] Neutrophils (Bld) [#/Vol] 6.23 10*3/uL [facility] Neutrophils/100 WBC (Bld) 73.1 % [facility] Nucleated RBC (Bld) [#/Vol] NINF [facility] Nucleated RBC/100 WBC (Bld) [Ratio] 0 % /100 WBC [facility] Platelet mean volume (Bld) [Entitic vol] 11.6 fL 9.0 - 12.7 fL [facility] Platelets (Bld) [#/Vol] 234 10*3/uL [facility] RBC (Bld) [#/Vol] 4.2 10*6/uL 3.90 - 5.20 m/uL [facility] WBC (Bld) [#/Vol] 8.51 10*3/uL [facility] Basophils (Bld) [#/Vol] 0.07 10*3/uL Normal <0.11 [facility] Comment on above: Order Comment: Speci men Type: BLOOD SPECIMENOrdering Facility: [facility] Address: [address] [place] [address] Performed By: #### 5 7021-8 ####[facility] LABCLIA [id number] [place] [address] [place] Basophils/100 WBC (Bld) 0.8 % Normal [facility] Comment on above: Order Comment: Speci men Type: BLOOD SPECIMENOrdering Facility: [facility] Address: [address] [place] [address] Performed By: #### 5 7021-8 ####[facility] LABCLIA [id number] [place] [address] [place] Differential cell count method Nom (Bld) Auto Normal [facility] Comment on above: Order Comment: Speci men Type: BLOOD SPECIMENOrdering Facility: [facility] Address: [address] [place] [address] Performed By: #### 5 7021-8 ####[facility] LABCLIA [id number] [place] [address] [place] Eosinophils (Bld) [#/Vol] 0.10 10*3/uL Normal <0.46 [facility] Comment on above: Order Comment: Speci men Type: BLOOD SPECIMENOrdering Facility: [facility] Address: [address] [place] [address] Performed By: #### 5 7021-8 ####[facility] LABCLIA [id number] [place] [id number] [place] Eosinophils/100 WBC (Bld) 1.2 % Normal [facility] Comment on above: Order Comment: Speci men Type: BLOOD SPECIMENOrdering Facility: [facility] Address: [address] [place] [address] Performed By: #### 5 7021-8 ####[facility] LABIA [id number] [place] [address] [place] Erythrocyte distribution width (RBC) [Ratio] 12.6 % Normal 11.5-15.0 [facility] Comment on above: Order Comment: Speci men Type: BLOOD SPECIMENOrdering Facility: [facility] Address: [address] [place] [address] Performed By: #### 5 7021-8 ####[facility] LABIA [id number] [place] [address] [place] Hematocrit (Bld) [Volume fraction] 40.0 % Normal 36.0-46.0 [facility] Comment on above: Order Comment: Speci men Type: BLOOD SPECIMENOrdering Facility: [facility] Address: [address] [place] [address] Performed By: #### 5 7021-8 ####[facility] LABIA [id number] [place] [id number] [place] Hemoglobin (Bld) [Mass/Vol] 13.2 g/dL Normal 11.5-15.5 [facility] Comment on above: Order Comment: Speci men Type: BLOOD SPECIMENOrdering Facility: [facility] Address: [address] [place] [address] Performed By: #### 5 7021-8 ####[facility] LABCLIA [id number] [place] [address] [place] Immature granulocytes (Bld) [#/Vol] 0.03 10*3/uL Normal <0.10 [facility] Comment on above: Order Comment: Speci men Type: BLOOD SPECIMENOrdering Facility: [facility] Address: [address] [place] [address] Performed By: #### 5 7021-8 ####[facility] LABCLIA [id number] [place] [address] [place] Immature granulocytes/100 WBC (Bld) 0.4 % Normal [facility] Comment on above: Order Comment: Speci men Type: BLOOD SPECIMENOrdering Facility: [facility] Address: [address] [place] [address] Performed By: #### 5 7021-8 ####[facility] LABCLIA [id number] [place] [address] [place] Lymphocytes (Bld) [#/Vol] 1.42 10*3/uL Normal 1.00-4.00 [facility] Comment on above: Order Comment: Speci men Type: BLOOD SPECIMENOrdering Facility: [facility] Address: [address] [place] [address] Performed By: #### 5 7021-8 ####[facility] LABCLIA [id number] [place] [address] [place] Lymphocytes/100 WBC (Bld) 16.7 % Normal [facility] Comment on above: Order Comment: Speci men Type: BLOOD SPECIMENOrdering Facility: [facility] Address: [address] [place] [address] Performed By: #### 5 7021-8 ####[facility] LABCLIA [id number] [place] [address] [place] MCH (RBC) [Entitic mass] 31.4 pg Normal 26.0-34.0 [facility] Comment on above: Order Comment: Speci men Type: BLOOD SPECIMENOrdering Facility: [facility] Address: [address] [place] [address] Performed By: #### 5 7021-8 ####[facility] LABIA [id number] [place] [address] [place] MCHC (RBC) [Mass/Vol] 33.0 g/dL Normal 30.5-36.0 [facility] Comment on above: Order Comment: Speci men Type: BLOOD SPECIMENOrdering Facility: [facility] Address: [address] [place] [address] Performed By: #### 5 7021-8 ####[facility] LABSOU[facility] [id number] [address], [place] [address] [place] MCV (RBC) [Entitic vol] 95.2 fL Normal 80.0-100.0 [facility] Comment on above: Order Comment: Speci men Type: BLOOD SPECIMENOrdering Facility: [facility] Address: [address] [place] [address] Performed By: #### 5 7021-8 ####[facility] LABIA [id number] [place] [address] [place] Monocytes (Bld) [#/Vol] 0.66 10*3/uL Normal <0.87 [facility] Comment on above: Order Comment: Speci men Type: BLOOD SPECIMENOrdering Facility: [facility] Address: [address] [place] [address] Performed By: #### 5 7021-8 ####[facility] LABIA [id number] [place] [address] [place] Monocytes/100 WBC (Bld) 7.8 % Normal [facility] Comment on above: Order Comment: Speci men Type: BLOOD SPECIMENOrdering Facility: [facility] Address: [address] [place] [address] Performed By: #### 5 7021-8 ####[facility] LABCLIA [id number] [facility] [address], [place] [address] [place] Neutrophils (Bld) [#/Vol] 6.23 10*3/uL Normal 1.45-7.50 [facility] Comment on above: Order Comment: Speci men Type: BLOOD SPECIMENOrdering Facility: [facility] Address: [address] [place] [address] Performed By: #### 5 7021-8 ####[facility] LABCLIA [id number] [facility] [address], [place] [address] [place] Neutrophils/100 WBC (Bld) 73.1 % Normal [facility] Comment on above: Order Comment: Speci men Type: BLOOD SPECIMENOrdering Facility: [facility] Address: [address] [place] [address] Performed By: #### 5 7021-8 ####[facility] LABCLIA [id number] [facility] [address], [place] [address] [place] Nucleated RBC (Bld) [#/Vol] 10*3/uL Normal <0.01 [facility] Comment on above: Order Comment: Speci men Type: BLOOD SPECIMENOrdering Facility: [facility] Address: [address] [place] [address] Performed By: #### 5 7021-8 ####[facility] LABCLIA [id number] [facility] [place] [address] [place] Nucleated RBC/100 WBC (Bld) [Ratio] 0.0 /100 WBC Normal [facility] Comment on above: Order Comment: Speci men Type: BLOOD SPECIMENOrdering Facility: [facility] Address: [address] [place] [address] Performed By: #### 5 7021-8 ####[facility] LABCLIA [id number] [facility] [address], [facility] [place] Platelet mean volume (Bld) [Entitic vol] 11.6 fL Normal 9.0-12.7 [facility] Comment on above: Order Comment: Speci men Type: BLOOD SPECIMENOrdering Facility: [facility] Address: [address] [place] [address] Performed By: #### 5 7021-8 ####[facility] LABIA [id number] [place] [address] [place] Platelets (Bld) [#/Vol] 234 10*3/uL Normal 150-400 [facility] Comment on above: Order Comment: Speci men Type: BLOOD SPECIMENOrdering Facility: [facility] Address: [address] [place] [address] Performed By: #### 5 7021-8 ####[facility] LABIA [id number] [place] [address] [place] RBC (Bld) [#/Vol] 4.20 10*6/uL Normal 3.90-5.20 [facility] Comment on above: Order Comment: Speci men Type: BLOOD SPECIMENOrdering Facility: [facility] Address: [address] [place] [address] Performed By: #### 5 7021-8 ####[facility] LABIA [id number] [place] [address] [place] WBC (Bld) [#/Vol] 8.51 10*3/uL Normal 3.70-11.00 [facility] Comment on above: Order Comment: Speci men Type: BLOOD SPECIMENOrdering Facility: [facility] Address: [address] [place] [address] Performed By: #### 5 7021-8 ####[facility] LABIA [id number] [place] [id number] [place] CNOVon 08-08-2024 CNOV Office Visit (FAMPWS ) LILLIAN VELAZQUEZ ([id number]) 1955 F Date Time Provider Department 08/08/24 1:00 PM AZIZA THOMPSON During your visit today, we recorded the following information about you: Temperature Pulse Respiration Blood pressure 98.4 degrees 58/minute 16/minute 143/85 Weight Height 53.5 kg 1.57 m Aziza Thompson PA-C 08/08/2024 2:45 PM Signed Lillian Velazquez is a 68 year old female here for a Medicare wellness visit. Medicare Health Risk Assessment General Health Good Exercise: Minutes/Day 10 min Exercise: Days/Week 3 days Alcohol: Daily Use 2-3 times a week Alcohol: Drinks/Day 1 or 2 Alcohol: 6 or more drinks Never Feel off balance No Concerns: Teeth/Dentures No Concerns: Sexual function Yes Troubled by feelings Anxious; Stressed; Irritable; Lonely Frequency: Eating healthy diet Nearly every day ADLs requiring help None of the above Safety precautions in home/vehicle Yes Smoke, vape, chews tobacco No Difficulty hearing No Difficulty seeing No Current Providers Specialists: I have reviewed specialist-related care of the patient in the medical record. Medical/Family history review Reviewed and updated problem list, medical/surgical/family/soc ial history, medications, and allergies. Opioid use review Opioid Medications (last 90 days) No data to display Anxiety/Depression screening PHQ-9 Score: 5 (Mild Depression) SHAYLA-7 Score: 7 (Mild Anxiety) Recommendation: continuing current treatment plan Cognitive screening Mini Cog Score: 5 Cognitive screening reviewed and No further action needed (score 3-5). Functional Observation Was the patient's Timed Up AND Go test unsteady or >= 12 seconds? No Advance Care Planning Patient did not wish or was not able to name a surrogate decision maker or provide an advance care plan Measurements BP 130/100 (BP Site: Right Arm, BP Position: Sitting, BP Cuff Size: Regular Adult) Pulse 62 Temp 36.9 ?C (98.4 ?F) Resp 16 Ht 157 cm (5' 1.81) Wt 53.5 kg (118 lb) SpO2 97% BMI 21.71 kg/m? Vision Screening: Follows with optometry/ophthalmology Assessment/Plan Medicare annual wellness visit, subsequent (Z00.00) - Counseled on healthy diet and regular exercise - Fall avoidance information provided - Personalized prevention plan provided Chief Complaint Patient presents with: Medicare Wellness Exam HPI Lillian Velazquez is a 68 year old female who presents here today for extensive exam. Patient with hx of HTN, hyperlipidemia, hypothyroidism, elevated blood sugar, and those as below. Annual Wellness Exam: - No recent medical or surgical changes. - Recent eye exam completed. - No advanced directive completed yet. 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 - History of severe anxiety when was first diagnosed with cancer. - Taking BuSpar PRN for anxiety. - Taking gabapentin BID for restless legs and back pain; reports it improves mood. - Unable to tolerate SSRIs. - Recent injection in heel for plantar fasciitis by Dr. Perez; reports significant improvement and no recurrence of pain. - Performing stretching exercises for plantar fasciitis as advised by physical therapist. - High arches and abnormal gait noted. Hypertension: - Reports elevated blood pressure readings since May-June. - Losartan dosage increased from 25 mg to 50 mg in June by Dr[address] Perez due to elevated readings. - Family history of AFib, hypertension, and CVA in father; heart issues in grandparents; paternal grandfather of a heart attack at a young age. Palpitations: - Palpitations described as pounding and flip-flops in chest, occurring daily, worse after waking up. - Associated with a need to take deep breaths; no associated pain. - Palpitations noticed before and after consuming 2 cups of coffee in the morning. - No history of stress test. Leg Cramps: - Severe leg and foot cramps, especially at night, described as foot drawing down like a claw and extending into the calf. - Cramps occur more frequently, sometimes during the day, particularly after walking and putting groceries in the car. - Taking magnesium at night and using [employer] on calves with uncertain benefit. 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 - Feet are always cold; factory maintenance technician mentioned possible Raynaud's syndrome. - Describes a sensation in calves like worms wiggling around. - Recent incident of right knee pain described as something caught under the kneecap, causing limping; similar incident occurred previously with no abnormalities found on x-ray. Past medical history, appointments, medications, allergies reviewed. Previous (more content not included)... Normal [facility] Comprehensive metabolic 2000 panelon 08-08-2024 Albumin [Mass/Vol] 4.8 g/dL Normal 3.9-4.9 [facility] Comment on above: Order Comment: Speci men Type: BLOOD SPECIMENOrdering Facility: [facility] Address: [address] [place] [address] Performed By: #### 1 9123-9, LIPNF, 3015-3, 37866-6 ####[facility] [id number] [place] [address] [place] ALP [Catalytic activity/Vol] 67 U/L Normal 34-123 [facility] Comment on above: Order Comment: Speci men Type: BLOOD SPECIMENOrdering Facility: [facility] Address: [address] [place] [address] Performed By: #### 1 9123-9, LIPNF, 3015-3, 40195-2 ####[facility] [id number] [address] [address] [place] ALT [Catalytic activity/Vol] 22 U/L Normal 7-38 [facility] Comment on above: Order Comment: Speci men Type: BLOOD SPECIMENOrdering Facility: [facility] Address: [facility] [place] [id number] Performed By: #### 1 9123-9, LIPNF, 3015-3, 55980-0 ####[facility] [id number] [address] [address] [place] Anion gap [Moles/Vol] 13 mmol/L Normal 8-15 [facility] Comment on above: Order Comment: Speci men Type: BLOOD SPECIMENOrdering Facility: [facility] Address: [address] [place], [place] [address] Performed By: #### 1 9123-9, LIPNF, 3, 19849-6 ####[facility]CL[facility] [id number] [address] [address] [place] AST [Catalytic activity/Vol] 24 U/L Normal 13-35 [facility] Comment on above: Order Comment: Speci men Type: BLOOD SPECIMENOrdering Facility: [facility] Address: [address] [place], [place] [address] Performed By: #### 1 9123-9, LIPNF, 3, 88460-8 ####[facility]CL[facility] [id number] [place] [address] [place] Bilirubin [Mass/Vol] 0.3 mg/dL Normal 0.2-1.3 [facility] Comment on above: Order Comment: Speci men Type: BLOOD SPECIMENOrdering Facility: [facility] Address: [address] [place] [address] Performed By: #### 1 9123-9, LIPNF, 3, ####[facility] [id number] [place] [address] [place] Calcium [Mass/Vol] 9.1 mg/dL Normal 8.5-10.2 [facility] Comment on above: Order Comment: Speci men Type: BLOOD SPECIMENOrdering Facility: [facility] Address: [address] [place], [place] [address] Performed By: #### 1 9123-9, LIPNF, 3, 10771-8 ####[facility] [id number] [address] [address] [place] Chloride [Moles/Vol] 103 mmol/L Normal 98-107 [facility] Comment on above: Order Comment: Speci men Type: BLOOD SPECIMENOrdering Facility: [facility] Address: [address] [place] [address] Performed By: #### 1 9123-9, LIPNF, 3015-3, 10492-2 ####[facility] [id number] [place] [address] [place] CO2 [Moles/Vol] 24 mmol/L Normal 22-30 [facility] Comment on above: Order Comment: Speci men Type: BLOOD SPECIMENOrdering Facility: [facility] Address: [address] [place] [address] Performed By: #### 1 9123-9, LIPNF, 6-3, 77309-0 ####[facility] [id number] [place] [address] [place] Creatinine [Mass/Vol] 0.83 mg/dL Normal 0.58-0.96 [facility] Comment on above: Order Comment: Speci men Type: BLOOD SPECIMENOrdering Facility: [facility] Address: [address] [place] [address] Performed By: #### 1 9123-9, LIPNF, 3, 08077-2 ####[facility] [id number] [place] [address] [place] Creatinine and Glomerular filtration rate.predicted panel (S/P/Bld) 77 mL/min/1.73m??? Normal >=60 [facility] Comment on above: Order Comment: Speci men Type: BLOOD SPECIMENOrdering Facility: [facility] Address: [address] [place] [address] Result Comment: Annie mated Glomerular Filtration Rate (eGFR) is calculated using the 2020 CKD-EPI creatinine equation. This equation utilizes serum creatinine, sex, and age as parameters. The creatinine assay has traceable calibration to isotope dilution-mass spectrometry. Refer to KDIGO guidelines for clinical interpretation. In patients with unstable renal function, e.g. those with acute kidney injury, the eGFR may not accurately reflect actual GFR. Performed By: #### 1 9123-9, LIPNF, 3015-3, 89426-9 ####[facility]CL[facility] [id number] [address] [address] [place] Glucose [Mass/Vol] 82 mg/dL Normal 74-99 [facility] Comment on above: Order Comment: Speci men Type: BLOOD SPECIMENOrdering Facility: [facility] Address: [address] [place] [address] Result Comment: The [place] Diabetes Association (ADA) provides guidance for cutoff values for fasting glucose and random glucose. The ADA defines fasting as no caloric intake for at least 8 hours. Fasting plasma glucose results between 100 to 125 mg/dL indicate increased risk for diabetes (prediabetes). Fasting plasma glucose results greater than or equal to 126 mg/dL meet the criteria for diagnosis of diabetes. In the absence of unequivocal hyperglycemia, results should be confirmed by repeat testing. In a patient with classic symptoms of hyperglycemia or hyperglycemic crisis, random plasma glucose results greater than or equal to 200 mg/dL meet the criteria for diagnosis of diabetes. Reference: Standards of Medical Care in Diabetes 2016, [place] Diabetes Association. Diabetes Care. 2016.39(Suppl 1). Performed By: #### 1 9123-9, LIPNF, 3015-, 79961-5 ####[facility] [id number] [place] [address] [place] Potassium [Moles/Vol] 4.7 mmol/L Normal 3.7-5.1 [facility] Comment on above: Order Comment: Speci men Type: BLOOD SPECIMENOrdering Facility: [facility] Address: [address] [place] [address] Performed By: #### 1 9123-9, LIPNF, 3015-, 85872-3 ####[facility] [id number] [place] [address] [place] Protein [Mass/Vol] 7.6 g/dL Normal 6.3-8.0 [facility] Comment on above: Order Comment: Speci men Type: BLOOD SPECIMENOrdering Facility: [facility] Address: [address] [place] [address] Performed By: #### 1 9123-9, LIPNF, 3016-3, 61701-7 ####[facility] [id number] [place] [address] [place] Sodium [Moles/Vol] 140 mmol/L Normal 136-144 [facility] Comment on above: Order Comment: Speci men Type: BLOOD SPECIMENOrdering Facility: [facility] Address: [address] [place] [address] Performed By: #### 1 9123-9, LIPNF, 3016-3, 26867-9 ####[facility] [id number] [place] [address] [place] Urea nitrogen [Mass/Vol] 10 mg/dL Normal 7-21 [facility] Comment on above: Order Comment: Speci men Type: BLOOD SPECIMENOrdering Facility: [facility] Address: [address] [place] [address] Performed By: #### 1 9123-9, LIPNF, 3016-3, 08956-1 ####[facility] [id number] [place] [address] [place] [id number] 08-08-2024 ECG01 Ventricular Rate : 5 4 BPM Atrial Rate : 54 BPM P-R Interval : 156 ms QRS Duration : 82 ms Q-T Interval : 462 ms QTC Calculation(Bazett) : 438 ms Calculated P Acosta : 52 degrees Calculated R Acosta : -19 degrees Calculated T Acosta : 21 degrees SINUS BRADYCARDIA OTHERWISE NORMAL ECG Confirmed by MD TAN QARAB ([id number]) on 08/12/2024 8:30:09 AM NAME : LILLIAN VELAZQUEZ PID : [id number] : 1955 Gender : Female Race : ORD : Procedure Date : Aug 08 2024 14:16:48 Edit Date : Aug 12 2024 08:30:13 Diagnosis: SINUS BRADYCARDIA OTHERWISE NORMAL ECG Confirmed by MD TAN QARAB ([id number]) on 08/12/2024 8:30:09 AM Test Reason : Location : 136 : JESUS MANUEL Overread By : MD BRITNEY,MELECIO Edited By : MD TAN QARAB Referred By : Aziza Thompson Acquired by : Liam no [facility] Folate SerPl-mCncon 08-09-19 25 Folate [Mass/Vol] 19.6 ng/mL Normal >4.7 [facility] Comment on above: Order Comment: Mira sky Type: BLOOD SPECIMENOrdering Facility: [facility] Address: [address] [place] [address] Performed By: #### 2 132-9, 2284-8 ####[facility] LABCLIA [id number] [place] [address] [place] HbA1c (Bld)on 08-08-2024 Average glucose Estimated from glycated hemoglobin (Bld) [Mass/Vol] 97 mg/dL Normal [facility] Comment on above: Order Comment: Mira sky Type: BLOOD SPECIMENOrdering Facility: [facility] Address: [address] [place] [address] Result Comment: eAG: (Estimated average glucose) is a calculated value from HgbA1c and is independent sales representative of the average blood glucose level in the last 2-3 month period. Performed By: #### 5 5454-3 ####[facility] LABCL[facility] [id number] [place] [address] [place] HbA1c (Bld) [Mass fraction] 5.0 % Normal 4.3-5.6 [facility] Comment on above: Order Comment: Mira men Type: BLOOD SPECIMENOrdering Facility: [facility] Address: [address] [place] [address] Result Comment: Amer [place] Diabetes Association guidelines indicate that patients with HgbA1c in the range 5.7-6.4% are at increased risk for development of diabetes, and intervention by lifestyle modification may be beneficial. HgbA1c greater or equal to 6.5% is considered diagnostic of diabetes. Performed By: #### 5 5454-3 ####[facility] LABCL[facility] [id number] [address], [facility]95 [facility] [place] LIPID PANEL, NONFASTINGon Cholesterol [Mass/Vol] 232 mg/dL High <200 [facility] Comment on above: Order Comment: Speci men Type: BLOOD SPECIMENOrdering Facility: [facility] Address: [address] [place] [address] Result Comment: <200 mg/dL, Desirable 200-239 mg/dL, Borderline high >239 mg/dL, High Performed By: #### 1 9123-9, LIPNF, 3016-3, 20477-1 ####[facility] [id number] [address], [place] [address] [place] HDL CHOLESTEROL, NF 81 mg/dL Normal >39 [facility] Comment on above: Order Comment: Speci men Type: BLOOD SPECIMENOrdering Facility: [facility] Address: [address] [place] [address] Result Comment: 40-5 9 mg/dL, Acceptable >59 mg/dL, High: Negative risk factor for coronary heart disease <40 mg/dL, Low: Positive risk factor for coronary heart disease Performed By: #### 1 9123-9, LIPNF, 3016-3, 38736-8 ####[facility]CL[facility] [id number] [address], [address] [place] LDL CHOLESTEROL, NF 132 mg/dL High <100 [facility] Comment on above: Order Comment: Speci men Type: BLOOD SPECIMENOrdering Facility: [facility] Address: [address] [place] [address] Result Comment: <100 mg/dL, Optimal 100-129 mg/dL, Near optimal/above optimal 130-159 mg/dL, Borderline high 160-189 mg/dL, High >189 mg/dL, Very high Secondary prevention optimal LDL Cholesterol levels are recommended to be < 70 mg/dL Performed By: #### 1 9123-9, LIPNF, 3016-3, 06920-3 ####[facility]CL[facility] [id number] [place] LDL/HDL RATIO, NF 1.63 mg/dL Normal <2.54 [facility] Comment on above: Order Comment: Speci men Type: BLOOD SPECIMENOrdering Facility: [facility] Address: [address] [place] [address] Result Comment: Alfredo villavicencio: 1. National Cholesterol Education Program ATP III Guideline At-A-Glance Quick Desk Reference: National Heart, Lung, and Blood [place]. National Institutes of Health. 2001: NIH Publication No. 01-3305. 2. An International Atherosclerosis Society position paper: global recommendations for the management of dyslipidemia: executive summary, Atherosclerosis. 2014: 232(2):410-413. Performed By: #### 1 9123-9, LIPNF, 3015-3, 64719-2 ####[facility] [id number] [place] [address] [place] NON HDL CHOL, NF 151 mg/dL High <130 [facility] Comment on above: Order Comment: Kirki men Type: BLOOD SPECIMENOrdering Facility: [facility] Address: [address] [place] [address] Result Comment: <130 mg/dL, Optimal 130-159 mg/dL, Near optimal/above optimal 160-189 mg/dL, Borderline high 190-219 mg/dL, High >219 mg/dL, Very high Secondary prevention optimal non HDL Cholesterol levels are recommended to be <100 mg/dL Performed By: #### 1 9123-9, LIPNF, 3016-3, 54130-9 ####[facility] [id number] [place] [address] [place] T CHOL/HDL RATIO NF 2.86 mg/dL Normal <5.10 [facility] Comment on above: Order Comment: Kirki men Type: BLOOD SPECIMENOrdering Facility: [facility] Address: [address] [place] [address] Performed By: #### 1 9123-9, LIPNF, 3016-3, 94146-0 ####[facility]CL[facility] [id number] [address] [address] [place] TRIGLYCERIDES, NF 96 mg/dL Normal <150 [facility] Comment on above: Order Comment: Speci men Type: BLOOD SPECIMENOrdering Facility: [facility] Address: [address] [place] [address] Result Comment: <150 mg/dL, Normal 150-199 mg/dL, Borderline high 200-499 mg/dL, High >499 mg/dL, Very high Performed By: #### 1 9123-9, LIPNF, 3016-3, 74117-1 ####[facility] [id number] [place] [address] [place] VLDL CHOLESTEROL, NF 19 mg/dL Normal <30 [facility] Comment on above: Order Comment: Speci men Type: BLOOD SPECIMENOrdering Facility: [facility] Address: [address] [place] [address] Performed By: #### 1 9123-9, LIPNF, 3016-3, 52159-5 ####[facility] [id number] [place] [address] [place] Magnesium SerPl-mCncon 08-08 Magnesium [Mass/Vol] 2.5 mg/dL High 1.7-2.3 [facility] Comment on above: Order Comment: Speci men Type: BLOOD SPECIMENOrdering Facility: [facility] Address: [address] [place] [address] Performed By: #### 1 9123-9, LIPNF, 3016-3, 42083-9 ####[facility] [id number] [place] [address] [place] TSH SerPl-aCncon 08-08-2024 TSH Qn 1.750 m[IU]/L Normal 0.270-4.20 0 [facility] Comment on above: Order Comment: Speci men Type: BLOOD SPECIMENOrdering Facility: [facility] Address: [address] [place] [address] Performed By: #### 1 9123-9, LIPNF, 3016-3, 76701-8 ####[facility]CL[facility] [id number] [place] [address] [place] Urinalysis complete panel (U )on 08-08-2024 Bacteria LM.HPF (Urine sed) [#/Area] Negative Negative /HPF [facility] Bilirubin Ql (U) Negative Negative [facility] Clarity (Unsp spec) Clear Clear [facility] Color (U) Yellow Yellow [facility] Epithelial cells LM.HPF (Urine sed) [#/Area] None Seen /HPF [facility] Glucose Test strip (U) [Mass/Vol] Negative Negative [facility] Hemoglobin Ql (U) Negative Negative [facility] Hyaline casts (Urine sed) [#/Area] 0 /[LPF] 0 /LPF [facility] Ketones Ql (U) Negative Negative [facility] Leukocyte esterase Test strip Ql (U) Negative Negative [facility] Nitrite Ql (U) Negative Negative [facility] pH (U) 6 [pH] NINF - 8.5 [facility] Protein (U) [Mass/Vol] Negative Negative [facility] RBC LM.HPF (Urine sed) [#/Area] 0-2 /HPF 0-2 /HPF [facility] Specific gravity (U) [Rel density] 1.007 1.005 - 1.030 [facility] Urobilinogen Ql (U) 0.2 EU/dL 0.2-1.0 EU/dL [facility] WBC LM.HPF (Urine sed) [#/Area] 0-5 /HPF 0-5 /HPF [facility] This test was devhermelindoo ebonie and its performance characteristics determined by [facility]'s Pj JEvelyne [facility] Pathology and Laboratory Medicine [place] ([facility]). It has not been cleared or approved by the FDA. [facility] is regulated under CLIA as qualified to perform high-complexity testing. This test is used for clinical purposes. It should not be regarded as investigational or for research. [facility] Bacteria LM.HPF (Urine sed) [#/Area] Negative Normal Negative [facility] Comment on above: Order Comment: Speci men Type: URINE SPECIMENOrdering Facility: [facility] Address: [address] [place] [address] Performed By: #### 2 4356-8 ####[facility] [id number] [place] [id number] [place] Bilirubin Ql (U) Negative Normal Negative [facility] Comment on above: Order Comment: Speci men Type: URINE SPECIMENOrdering Facility: [facility] Address: [address] [place] [address] Performed By: #### 2 4356-8 ####[facility] [id number] [place] [address] [place] Clarity (Unsp spec) Clear Normal Clear [facility] Comment on above: Order Comment: Speci men Type: URINE SPECIMENOrdering Facility: [facility] Address: [address] [place] [address] Performed By: #### 2 4356-8 ####[facility] [id number] [place] [address] [place] Color (U) Yellow Normal Yellow [facility] Comment on above: Order Comment: Speci men Type: URINE SPECIMENOrdering Facility: [facility] Address: [address] [place] [address] Performed By: #### 2 4356-8 ####[facility] [id number] [place] [phone] [place] Epithelial cells LM.HPF (Urine sed) [#/Area] None Seen Normal [facility] Comment on above: Order Comment: Speci men Type: URINE SPECIMENOrdering Facility: [facility] Address: [address] [place] [address] Performed By: #### 2 4356-8 ####[facility] [id number] [place] [phone] [place] Glucose Test strip (U) [Mass/Vol] Negative Normal Negative [facility] Comment on above: Order Comment: Speci men Type: URINE SPECIMENOrdering Facility: [facility] Address: [address] [place] [address] Performed By: #### 2 4356-8 ####[facility] [id number] [address] [place] [address] [place] Hemoglobin Ql (U) Negative Normal Negative [facility] Comment on above: Order Comment: Speci men Type: URINE SPECIMENOrdering Facility: [facility] Address: [address] [place] [address] Performed By: #### 2 4356-8 ####[facility] [id number] [address], [place] [address] [place] Hyaline casts (Urine sed) [#/Area] 0 /[LPF] Normal 0 /LPF [facility] Comment on above: Order Comment: Speci men Type: URINE SPECIMENOrdering Facility: [facility] Address: [address] [place] [address] Performed By: #### 2 4356-8 ####[facility] [id number] [place] [address] [place] Ketones Ql (U) Negative Normal Negative [facility] Comment on above: Order Comment: Speci men Type: URINE SPECIMENOrdering Facility: [facility] Address: [address] [place] [address] Performed By: #### 2 4356-8 ####[facility] [id number] [address], [facility]95 [place] Leukocyte esterase Test strip Ql (U) Negative Normal Negative [facility] Comment on above: Order Comment: Speci men Type: URINE SPECIMENOrdering Facility: [facility] Address: [address] [place] [address] Performed By: #### 2 4356-8 ####[facility] [id number] [address] [place] [address] [place] Nitrite Ql (U) Negative Normal Negative [facility] Comment on above: Order Comment: Speci men Type: URINE SPECIMENOrdering Facility: [facility] Address: [address] [place] [address] Performed By: #### 2 4356-8 ####[facility] [id number] [address], [place] [address] [place] pH (U) 6.0 [pH] Normal <8.5 [facility] Comment on above: Order Comment: Speci men Type: URINE SPECIMENOrdering Facility: [facility] Address: [address] [place] [address] Performed By: #### 2 4356-8 ####[facility] [id number] [place] [address] [place] Protein (U) [Mass/Vol] Negative Normal Negative [facility] Comment on above: Order Comment: Speci men Type: URINE SPECIMENOrdering Facility: [facility] Address: [address] [place] [address] Performed By: #### 2 4356-8 ####[facility] [id number] [place] [address] [place] RBC LM.HPF (Urine sed) [#/Area] 0-2 /HPF Normal 0-2 /HPF [facility] Comment on above: Order Comment: Speci men Type: URINE SPECIMENOrdering Facility: [facility] Address: [address] [place] [address] Performed By: #### 2 4356-8 ####[facility] [id number] [place] [phone] [place] Specific gravity (U) [Rel density] 1.007 Normal 1.005-1.03 0 [facility] Comment on above: Order Comment: Speci men Type: URINE SPECIMENOrdering Facility: [facility] Address: [address] [place] [address] Performed By: #### 2 4356-8 ####[facility] [id number] [place] [address] [place] Urobilinogen Ql (U) 0.2 EU/dL Normal 0.2-1.0 EU/dL [facility] Comment on above: Order Comment: Speci men Type: URINE SPECIMENOrdering Facility: [facility] Address: [address] [place] [address] Performed By: #### 2 4356-8 ####[facility] [id number] [place] [address] [place] WBC LM.HPF (Urine sed) [#/Area] 0-5 /HPF Normal 0-5 /HPF [facility] Comment on above: Order Comment: Speci men Type: URINE SPECIMENOrdering Facility: [facility] Address: [address] [place] [address] Performed By: #### 2 4356-8 ####[facility] [id number] [place] [address] [place] Vit B12 SerPl-mCncon 025 Cobalamin (Vitamin B12) [Mass/Vol] 736 pg/mL Normal 232-1245 [facility] Comment on above: Order Comment: Speci men Type: BLOOD SPECIMENOrdering Facility: [facility] Address: [address] [place] [address] Performed By: #### 2 132-9, 2284-8 ####[facility] [id number] [place] [phone] [place] CNTHERAPYon 08-04-2024 CNTHERAPY OT/PT/Speech Visit ( PTWS) LILLIAN VELAZQUEZ ([id number]) 1955 F Date Time Provider Department 08/04/24 2:00 PM QUOC MCCRACKEN PTWS Date Time Provider Department Center 08/04/2024 2:00 PM [id number], COREY PTWS Sonido Ventura Reason for Visit: PT Progress Note [1596] Primary Visit Diagnosis:Plantar fasciitis of right foot [M72.2] Other Visit Diagnoses:Lumbar back pain [M54.50] 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 Take one tablet daily - pravastatin (PRAVACHOL) 20 mg tablet Take 1 tablet by mouth daily at bedtime. - traZODone (DESYREL) 150 mg tablet Take 1 tablet by mouth daily at bedtime. - levothyroxine (SYNTHROID) 88 mcg tablet Take 1 tablet by mouth daily before breakfast. Take one tablet daily before breakfast - busPIRone (BUSPAR) 5 mg tablet Take 1 tablet by mouth three times a day as needed. PRN - multivit with minerals/lutein (MULTIVITAMIN 50 PLUS ORAL) Take by mouth once daily. - docosahexaenoic acid/epa (FISH OIL ORAL) Take by mouth as directed. - MAGNESIUM ORAL Take by mouth as directed. - TURMERIC ORAL Take by mouth as directed. - gabapentin (NEURONTIN) 300 mg capsule Take 1 capsule by mouth two times a day for 180 days. - dicyclomine (BENTYL) 10 mg capsule Take 1 capsule by mouth before meals and at bedtime. - betamethasone dipropionate (DIPROSONE) 0.05 % cream Apply to affected area twice daily. Normal [facility] 07-20-2024 CNPN Telephone (FAMPWS) LILLIAN VELAZQUEZ ([id number]) 1955 F Date Time Provider Department 07/20/24 REMY PEREZ During your visit today, we recorded the following information about you: Gail Posada RN 07/20/2024 3:16 PM Signed Called and spoke with patient regarding her back pain. Patient states that the issues she is having is a chronic issue. Patient states that she has had x ray and MRI testing done that has showed that nothing is wrong. Patient states that previous dry needling has worked previously on her chronic back pain. Patient asking if provider can order PT for her chronic back pain. Patient is aware that Dr. Perez is out of office this week and will wait till Dr. Perez responds to message. JARAD Ryan Jeffrey A, MD 07/24/2024 2:42 PM Signed PHYSICAL THERAPY order placed. 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 Take one tablet daily - pravastatin (PRAVACHOL) 20 mg tablet Take 1 tablet by mouth daily at bedtime. - traZODone (DESYREL) 150 mg tablet Take 1 tablet by mouth daily at bedtime. - levothyroxine (SYNTHROID) 88 mcg tablet Take 1 tablet by mouth daily before breakfast. Take one tablet daily before breakfast - busPIRone (BUSPAR) 5 mg tablet Take 1 tablet by mouth three times a day as needed. PRN - multivit with minerals/lutein (MULTIVITAMIN 50 PLUS ORAL) Take by mouth once daily. - docosahexaenoic acid/epa (FISH OIL ORAL) Take by mouth as directed. - MAGNESIUM ORAL Take by mouth as directed. - TURMERIC ORAL Take by mouth as directed. - gabapentin (NEURONTIN) 300 mg capsule Take 1 capsule by mouth two times a day for 180 days. - dicyclomine (BENTYL) 10 mg capsule Take 1 capsule by mouth before meals and at bedtime. - betamethasone dipropionate (DIPROSONE) 0.05 % cream Apply to affected area twice daily. 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] 11/01/2021 Hypertension, essential [I10] 11/01/2021 RLS (restless legs syndrome) [G25.81] 11/01/2021 History of COVID-19 [Z86.16] 11/01/2021 Elevated blood sugar [R73.9] 11/19/2021 Positive ESTELLA (antinuclear antibody) [R76.8] 11/21/2021 Left upper extremity numbness [R20.0] 12/18/2021 Left hand pain [M79.642] 12/18/2021 Left arm pain [M79.602] 12/18/2021 Left hand weakness [R29.898] 12/18/2021 Cervical arthritis [M47.812] 01/01/2022 02/17/2022 Numbness and tingling in left arm [R20.0, R20.2]01/01/2022 02/17/2022 Pain of left upper extremity [M79.602] 01/01/2022 02/17/2022 Lumbar back pain [M54.50] 05/21/2022 Encounter for Medicare annual wellness exam [Z0*06/19/2022 Special screening for malignant neoplasms, colo*06/19/2022 Fall (on) (from) unspecified stairs and steps, *08/29/2022 Hyperlipidemia, mixed [E78.2] 12/24/2022 Advance directive discussed with patient [Z71.8*07/23/2023 Osteopenia, senile [M85.80] 08/26/2023 Spondylosis of lumbar region without myelopathy*12/23/2023 Plantar fasciitis [M72.2] 06/02/2024 Plantar fasciitis of right foot [M72.2] 07/18/2024 Encounter Status:Closed by ANGI MCGUIRE on 07/25/24 Normal [facility] DBT Breast - bilateral scree priti 07-19-2024 IMPRESSION: There is no mammographic evidence of malignancy in either breast. Routine screening mammogram is recommended. Annual mammogram will be due in 1 year. BI-RADS Category 1: Negative RISK: Based on the Tyrer-Cuzick (TC) risk assessment model, this patient has a 4.3% lifetime risk of developing breast cancer, meaning they are at average risk for developing breast cancer. However, this is only an estimate based on available history provided on the patient's questionnaire. We encourage all patients to talk with their providers about these results, further recommendations for managing breast health, and appropriate supplemental screening options if the patient has dense breast tissue. Interpreting Radiologist: Rachelle Cheatham M.D. Electronically signed on: 07/19/2024 Coding Auditor: KRUNAL Transcrinesha Date/Time: Jul 18 2024 11:26A Dictated by: RACHELLE CHEATHAM MD This examination was interpreted and the report reviewed and electronically signed by: RACHELLE CHEATHAM MD on Jul 19 2024 11:53AM [facility] DIVISION OF RADIOLOGY * * *Final Report* * * DATE OF EXAM: Jul 18 2024 2:18PM [facility] 0582 - [place] SCREENING W HERNANDEZ / PROCEDURE REASON: Encounter for screening mammogram for breast cancer * * * * Physician Interpretation * * * * RESULT: [address] [address] [place] [address] #[id number] - [place] SCREENING W HERNANDEZ HISTORY: 68 year-old patient seen for screening. Patient is asymptomatic in both breasts. Patient states no personal history of breast cancer. The patient has a family history of ovarian cancer. COMPARISON STUDIES: The present examination has been compared to prior imaging studies dated 01/15/2022 (mammogram) and 05/20/2023 (mammogram). MAMMOGRAM TECHNIQUE: The study was acquired using full field digital technology and interpreted from soft copy. Digital Breast Tomosynthesis (DBT) images were obtained and used to assist in the interpretation of this examination. MAMMOGRAM FINDINGS: The breasts are heterogeneously dense, which may obscure small masses. No suspicious masses, calcifications or other abnormalities are seen in either breast. There are no significant interval changes. DIVISION OF RADIOLOGY Provider, [facility] - 07/19/2024 * * *Final Report* * * DATE OF EXAM: Jul 18 2024 2:18PM [facility] 0582 - [facility] SCREENING W HERNANDEZ / PROCEDURE REASON: Encounter for screening mammogram for breast cancer * * * * Physician Interpretation * * * * RESULT: [place] [address] #[id number] - [facility] SCREENING W HERNANDEZ HISTORY: 68 year-old patient seen for screening. Patient is asymptomatic in both breasts. Patient states no personal history of breast cancer. The patient has a family history of ovarian cancer. COMPARISON STUDIES: The present examination has been compared to prior imaging studies dated 01/15/2022 (mammogram) and 05/20/2023 (mammogram). MAMMOGRAM TECHNIQUE: The study was acquired using full field digital technology and interpreted from soft copy. Digital Breast Tomosynthesis (DBT) images were obtained and used to assist in the interpretation of this examination. MAMMOGRAM FINDINGS: The breasts are heterogeneously dense, which may obscure small masses. No suspicious masses, calcifications or other abnormalities are seen in either breast. There are no significant interval changes. IMPRESSION IMPRESSION: There is no mammographic evidence of malignancy in either breast. Routine screening mammogram is recommended. Annual mammogram will be due in 1 year. BI-RADS Category 1: Negative RISK: Based on the Tyrer-Cuzick (TC) risk assessment model, this patient has a 4.3% lifetime risk of developing breast cancer, meaning they are at average risk for developing breast cancer. However, this is only an estimate based on available history provided on the patient's questionnaire. We encourage all patients to talk with their providers about these results, further recommendations for managing breast health, and appropriate supplemental screening options if the patient has dense breast tissue. Interpreting Radiologist: Rachelle Cheatham M.D. Electronically signed on: 07/19/2024 Coding Auditor: KRUNAL Transcribe Date/Time: Jul 18 2024 11:26A Dictated by: RACHELLE CHEATHAM MD This examination was interpreted and the report reviewed and electronically signed by: RACHELLE CHEATHAM MD on Jul 19 2024 11:53AM EST [facility] DBT Breast - bilateral scree ningOrdered By: Ccf Provider on 07-19-2024 [facility] [id number] 07-18-2024 [id number] HNO ID: [id number] Author: QUOC MCCRACKEN PT Service: ? Author Type: Physical Therapist Type: [id number] Filed: 07/18/2024 13:43 Note Text: [facility] Rehabilitation and Sports Therapy Physical Therapy Plan of Care Certification Patient Name: Lillian Velazquez : 1955 [facility] #: [id number] Date: 07/18/2024 To: Aziza Thompson PA-C From Therapist: Quoc Mccracken PT RE: Patient Certification/ Recertification Your review, approval and electronic signature are required in order to comply with Payor: [employer] MEDICARE / Plan: [employer] GOLD PLUS / Product Type: HMO / regulations. The identified Physical Therapy PLAN OF CARE for the patient is as follows: M72.2 Plantar fasciitis of right foot PLAN OF CARE: Assessment: Lillian Velazquez presents with chief complaint of R heel pain that interferes with walking, standing . The patient presents with impairments in flexibility, independence in exercise, and overall function. PROMIS? (Patient-Reported Outcomes Measurement Information System) scores were reviewed and identified as a rehabilitation concern. Prognosis for therapy is Good due to: current objective clinical presentation . The patient will benefit from skilled therapy services to meet the goals established for this plan of care as noted below. Goals for Episode of Care: established 07/18/24 [place] in home exercise program. Perform standing/walking without pain. Improve flexibility of R gastrocnemius to WNL for decreased stress to the R plantar fascia when walking Normal gait. Patient Goals: Help prevent foot pain Time Frame for Goals and Treatment : 08/15/24 Planned Interventions, Frequency, and Duration: Current Frequency: 1x/month Duration: One month Total Number of Visits Planned: 1 Planned Treatment Interventions: Therapeutic exercise (94215), Neuromuscular re-education (37045), Manual therapy (07149), Therapeutic activities (15734), Self-skilled nursing management (23159), Patient/Family/Caregiver Education, Body Mechanics Training PLAN FOR NEXT VISIT: Patient demonstrates good understanding of plan of care and treatment. The above goals and plan of care were discussed and agreed upon by patient/family. For further details regarding this patient refer to the Physical Therapy electronically documented visit dated 07/18/2024. Provider Attestation I have reviewed the treatment plan for Lillian Maren, [facility]# [id number] for the period of 07/18/24 -- 08/22/24, established on 07/18/2024. Signature certifies the need for therapy services. Normal [facility] CNTHERAPYon 07-18-2024 CNTHERAPY OT/PT/Speech Visit ( PTWS) LILLIAN VELAZQUEZ ([id number]) 1955 F Date Time Provider Department 07/18/24 11:30 AM QUOC MCCRACKEN PTWS Date Time Provider Department Center 07/18/2024 11:30 AM [id number], COREY PTWS Sonido Ventura Reason for Visit: PT Eval [747] Visit Diagnosis:Plantar fasciitis of right foot [M72.2] Allergies As of Date: 07/18/2024 Noted Allergy Reaction AUGMENTIN (AMOXICILLIN-POT CLAVUL*11/01/2021 8 - GI Upset Date Reviewed: 06/02/2024 Reviewed by: Ludy Burns MA - Fully Assessed Prescriptions as of 07/18/2024 - losartan (COZAAR) 25 mg tablet Take 1 tablet by mouth once daily. Take one tablet daily - pravastatin (PRAVACHOL) 20 mg tablet Take 1 tablet by mouth daily at bedtime. - traZODone (DESYREL) 150 mg tablet Take 1 tablet by mouth daily at bedtime. - levothyroxine (SYNTHROID) 88 mcg tablet Take 1 tablet by mouth daily before breakfast. Take one tablet daily before breakfast - busPIRone (BUSPAR) 5 mg tablet Take 1 tablet by mouth three times a day as needed. PRN - multivit with minerals/lutein (MULTIVITAMIN 50 PLUS ORAL) Take by mouth once daily. - docosahexaenoic acid/epa (FISH OIL ORAL) Take by mouth as directed. - MAGNESIUM ORAL Take by mouth as directed. - TURMERIC ORAL Take by mouth as directed. - gabapentin (NEURONTIN) 300 mg capsule Take 1 capsule by mouth two times a day for 180 days. - dicyclomine (BENTYL) 10 mg capsule Take 1 capsule by mouth before meals and at bedtime. - betamethasone dipropionate (DIPROSONE) 0.05 % cream Apply to affected area twice daily. Normal [facility] DBT Breast - bilateral scree ningon 07-18-2024 Radiology Study observation (narrative) [facility] SCREENING W TOMOon 07-18 [facility] SCREENING W HERNANDEZ * * *Final Report* * * DATE OF EXAM: Jul 18 2024 2:18PM [facility] 0582 - [facility] SCREENING W HERNANDEZ / PROCEDURE REASON: Encounter for screening mammogram for breast cancer * * * * Physician Interpretation * * * * RESULT: [place] [address] #[id number] - [facility] SCREENING W HERNANDEZ HISTORY: 68 year-old patient seen for screening. Patient is asymptomatic in both breasts. Patient states no personal history of breast cancer. The patient has a family history of ovarian cancer. COMPARISON STUDIES: The present examination has been compared to prior imaging studies dated 01/15/2022 (mammogram) and 05/20/2023 (mammogram). MAMMOGRAM TECHNIQUE: The study was acquired using full field digital technology and interpreted from soft copy. Digital Breast Tomosynthesis (DBT) images were obtained and used to assist in the interpretation of this examination. MAMMOGRAM FINDINGS: The breasts are heterogeneously dense, which may obscure small masses. No suspicious masses, calcifications or other abnormalities are seen in either breast. There are no significant interval changes. IMPRESSION: There is no mammographic evidence of malignancy in either breast. Routine screening mammogram is recommended. Annual mammogram will be due in 1 year. BI-RADS Category 1: Negative RISK: Based on the Tyrer-Cuzick (TC) risk assessment model, this patient has a 4.3% lifetime risk of developing breast cancer, meaning they are at average risk for developing breast cancer. However, this is only an estimate based on available history provided on the patient's questionnaire. We encourage all patients to talk with their providers about these results, further recommendations for managing breast health, and appropriate supplemental screening options if the patient has dense breast tissue. Interpreting Radiologist: Rachelle Cheatham M.D. Electronically signed on: 07/19/2024 Coding Auditor: KRUNAL Transcribe Date/Time: Jul 18 2024 11:26A Dictated by: RACHELLE CHEATHAM MD This examination was interpreted and the report reviewed and electronically signed by: RACHELLE CHEATHAM MD on Jul 19 2024 11:53AM EST [id number] Normal [facility] CNOVon 06-02-2024 CNOV Office Visit (FAMPWS ) MAREN,SUSAN ([id number]) 1955 F Date Time Provider Department 06/02/24 10:40 AM REMY PEREZ FAMPWS During your visit today, we recorded the following information about you: Pulse Blood pressure Weight Height 66/minute 137/87 53.5 kg 1.575 m Remy Perez MD 06/02/2024 11:10 AM Signed Chief Complaint Patient presents with: Plantar Fasciitis: Here for injection in R heel HPI Lillian Greenetinger is a 68 year old female who presents here today for injection in right heel for persistent plantar fascitis pain. Patient with hx of HTN, hyperlipidemia, hypothyroidism, elevated blood sugar, and those as belo Past medical history, appointments, medications, allergies reviewed. Previous Medical History PAST MEDICAL HISTORY Diagnosis Date Elevated blood sugar 11/19/2021 History of COVID-19 11/01/2021 10/11/2021 Hyperlipidemia, mixed 12/24/2022 Hypertension, essential 11/01/2021 Lumbar back pain 05/21/2022 Osteopenia, senile 08/26/2023 Postoperative hypothyroidism 11/01/2021 Removed due to goiter. Primary insomnia 11/01/2021 RLS (restless legs syndrome) 11/01/2021 On gabapentin Previous Surgical History PAST SURGICAL HISTORY Procedure Laterality Date COLONOSCOPY 01/22/2023 repeat 5 years CYST/MOLE REMOVAL Left 1977 benign cyst- Left breast PAST SURGICAL HISTORY OF 2018 cervical fusion PAST SURGICAL HISTORY OF 2017 right shoulder decompression PAST SURGICAL HISTORY OF Bilateral foot surgery THYROIDECTOMY 10/2018 due to goiter, no cancer TONSILLECTOMY HX 8 yo Family History FAMILY HISTORY Problem Relation Age of Onset Cancer Mother Lung? other (a. fib) Father other (TIA) Father Hyperlipidemia Father Hypertension Father Hypertension Sister Stroke Maternal Grandmother Diabetes Maternal Grandmother Ischemic Heart Disease Maternal Grandfather Heart disease Maternal Grandfather Stroke Paternal Grandmother Heart Attack Paternal Grandfather Ovarian cancer Maternal Aunt Patient Allergies ALLERGIES Allergen Reactions Augmentin [Amoxicil* GI Upset Current Medications Current Outpatient Medications on File Prior to Visit Medication Sig losartan (COZAAR) 25 mg tablet Take 1 tablet by mouth once daily. Take one tablet daily pravastatin (PRAVACHOL) 20 mg tablet Take 1 tablet by mouth daily at bedtime. traZODone (DESYREL) 150 mg tablet Take 1 tablet by mouth daily at bedtime. levothyroxine (SYNTHROID) 88 mcg tablet Take 1 tablet by mouth daily before breakfast. Take one tablet daily before breakfast busPIRone (BUSPAR) 5 mg tablet Take 1 tablet by mouth three times a day as needed. PRN multivit with minerals/lutein (MULTIVITAMIN 50 PLUS ORAL) Take by mouth once daily. docosahexaenoic acid/epa (FISH OIL ORAL) Take by mouth as directed. MAGNESIUM ORAL Take by mouth as directed. TURMERIC ORAL Take by mouth as directed. gabapentin (NEURONTIN) 300 mg capsule Take 1 capsule by mouth two times a day for 180 days. dicyclomine (BENTYL) 10 mg capsule Take 1 capsule by mouth before meals and at bedtime. betamethasone dipropionate (DIPROSONE) 0.05 % cream Apply to affected area twice daily. No current facility-administered medications on file prior to visit. Social History Social History Tobacco Use Smoking status: Never Smokeless tobacco: Never Vaping Use Vaping status: Never Used Substance Use Topics Alcohol use: Not Currently Comment: occasionally Drug use: Never Review of Symptoms REVIEW OF SYSTEMS See HPI EXAM: BP 137/87 Pulse 66 Ht 157.5 cm (5' 2) Wt 53.5 kg (118 lb) BMI 21.58 kg/m? General Appearance: Well appearing, alert, in no acute distress, well-hydrated, well nourished.. Musculoskeletal: has tenderness to the plantar heel surface when palpated and when the heel is squeezed from the sides. . Health Maintenance List DTaP,Tdap,Td Vaccine(1 - Tdap) Never done Shingrix Vaccine(1 of 2) Never done Advance Directive Discussion due on 04/20/2024 Mammogram Screening due on 05/20/2024 Covid-19 Vaccine( season) due on 02/07/2025 Depression Screening due on 07/22/2024 Anxiety Screening due on 07/22/2024 BP Controlled (<130/80) due on 07/22/2024 Annual PCP Team Chronic Disease Visit due on 05/26/2025 Diabetes Screening due on 02/07/2027 Colorectal Cancer Screening due on 01/23/2028 Lipid Screening due on 02/07/2029 RSV Vaccine(1 - 1-dose 75+ series) due on 12/15/2031 Bone Density Screening Completed Influenza Vaccine Completed Pneumococcal Vaccine: 50+ Completed Cervical Cancer Screening Discontinued Hepatitis C Screening Discontinued Data reviewed A/P ASSESSMENT/PLAN: 1. Plantar fasciitis - ICD9: 728.71, ICD10: M72.2 - discussed steroid injection since not improving with conservative Tx. Patient in agreement. - see procedure note section. Beck (more content not included)... Normal [facility] CNOVon 05-26-2024 CNOV Office Visit (FAMPWS ) LILLIAN VELAZQUEZ ([id number]) 1955 F Date Time Provider Department 05/26/24 12:00 PM AZIZA THOMPOSN During your visit today, we recorded the following information about you: Temperature Pulse Respiration Blood pressure 97.3 degrees 60/minute 16/minute 130/82 Weight 54.4 kg Aziza Thompson PA-C 05/26/2024 12:19 PM Signed xrayChief Complaint Patient presents with: plantar fascitis: Right foot has gotten worse HPI Lillian Velazquez is a 68 year old female who presents here today for Above Complaints.. Patient with increasing plantar fasciitis pain. Does see podiatry and has tried conservative management, but symptoms are worsening. Specifically in the last month. States she is unable to get a follow up with podiatry any time soon. States she is going on a trip and is very worried about the pain she will experience walking around the airport. She is also noticing left hip pain on and off for years. Has been worse more recently. Past medical history, appointments, medications, allergies reviewed. Previous Medical History PAST MEDICAL HISTORY Diagnosis Date Elevated blood sugar 11/19/2021 History of COVID-19 11/01/2021 10/11/2021 Hyperlipidemia, mixed 12/24/2022 Hypertension, essential 11/01/2021 Lumbar back pain 05/21/2022 Osteopenia, senile 08/26/2023 Postoperative hypothyroidism 11/01/2021 Removed due to goiter. Primary insomnia 11/01/2021 RLS (restless legs syndrome) 11/01/2021 On gabapentin Previous Surgical History PAST SURGICAL HISTORY Procedure Laterality Date COLONOSCOPY 01/22/2023 repeat 5 years CYST/MOLE REMOVAL Left 1977 benign cyst- Left breast PAST SURGICAL HISTORY OF 2018 cervical fusion PAST SURGICAL HISTORY OF 2017 right shoulder decompression PAST SURGICAL HISTORY OF Bilateral foot surgery THYROIDECTOMY 10/2018 due to goiter, no cancer TONSILLECTOMY HX 8 yo Family History FAMILY HISTORY Problem Relation Age of Onset Cancer Mother Lung? other (a. fib) Father other (TIA) Father Hyperlipidemia Father Hypertension Father Hypertension Sister Stroke Maternal Grandmother Diabetes Maternal Grandmother Ischemic Heart Disease Maternal Grandfather Heart disease Maternal Grandfather Stroke Paternal Grandmother Heart Attack Paternal Grandfather Ovarian cancer Maternal Aunt Patient Allergies ALLERGIES Allergen Reactions Augmentin [Amoxicil* GI Upset Current Medications Current Outpatient Medications on File Prior to Visit Medication Sig losartan (COZAAR) 25 mg tablet Take 1 tablet by mouth once daily. Take one tablet daily pravastatin (PRAVACHOL) 20 mg tablet Take 1 tablet by mouth daily at bedtime. traZODone (DESYREL) 150 mg tablet Take 1 tablet by mouth daily at bedtime. levothyroxine (SYNTHROID) 88 mcg tablet Take 1 tablet by mouth daily before breakfast. Take one tablet daily before breakfast busPIRone (BUSPAR) 5 mg tablet Take 1 tablet by mouth three times a day as needed. PRN multivit with minerals/lutein (MULTIVITAMIN 50 PLUS ORAL) Take by mouth once daily. docosahexaenoic acid/epa (FISH OIL ORAL) Take by mouth as directed. MAGNESIUM ORAL Take by mouth as directed. TURMERIC ORAL Take by mouth as directed. gabapentin (NEURONTIN) 300 mg capsule Take 1 capsule by mouth two times a day for 180 days. dicyclomine (BENTYL) 10 mg capsule Take 1 capsule by mouth before meals and at bedtime. betamethasone dipropionate (DIPROSONE) 0.05 % cream Apply to affected area twice daily. No current facility-administered medications on file prior to visit. Social History Social History Tobacco Use Smoking status: Never Smokeless tobacco: Never Vaping Use Vaping status: Never Used Substance Use Topics Alcohol use: Not Currently Comment: occasionally Drug use: Never Review of Symptoms REVIEW OF SYSTEMS See hpi EXAM: BP 130/82 (BP Site: Right Arm, BP Position: Sitting, BP Cuff Size: Regular Adult) Pulse 60 Temp 36.3 ?C (97.3 ?F) Resp 16 Wt 54.4 kg (120 lb) SpO2 99% BMI 21.40 kg/m? General Appearance: Well appearing, alert, in no acute distress, well-hydrated, well nourished.. Musculoskeletal: +pain to palp of right heel and plantar fascia. NVI. Left hip with pain at SI joint and great tuberosity. FROM. NVI. Health Maintenance List DTaP,Tdap,Td Vaccine(1 - Tdap) Never done Shingrix Vaccine(1 of 2) Never done Advance Directive Discussion due on 04/20/2024 Mammogram Screening due on 05/20/2024 Covid-19 Vaccine( season) due on 02/07/2025 Depression Screening due on 07/22/2024 Anxiety Screening due on 07/22/2024 BP Controlled (<130/80) due on 07/22/2024 Annual PCP Team Chronic Disease Visit due on 02/07/2025 Diabetes Screening due on 02/07/2027 Colorectal Cancer Screening due on 01/23/2028 Lipid Screening due on 02/07/2029 RSV Va (more content not included)... Normal [facility] XR FOOT 3V AP/LAT/OBL RTon 0 05-26-2024 XR FOOT 3V AP/LAT/OBL RT * * *Final Report* * * DATE OF EXAM: May 26 2024 12:40PM WOX [id number] - XR FOOT 3V AP/LAT/OBL RT / PROCEDURE REASON: Plantar fasciitis of right foot * * * * Physician Interpretation * * * * HISTORY: Plantar fasciitis of right foot . hx of plantar fasciitis. Pain is worsening. TECHNIQUE: XR FOOT 3V AP/LAT/OBL RT Laterality: RIGHT Number of different views (projections): 3 COMPARISON: None RESULT: No acute fracture or dislocation. Bipartite fibular hallux sesamoid. Joint spaces are maintained. Pes cavus. Plantar calcaneal enthesophyte. Soft tissues are unremarkable. IMPRESSION: Plantar calcaneal enthesophyte. Other findings as described. Coding Auditor: PSCB Transcribe Date/Time: May 28 2024 4:20P Dictated by : LONG MENDOSA MD This examination was interpreted and the report reviewed and electronically signed by: LONG MENDOSA MD on May 28 2024 4:20PM EST [id number] Normal [facility] XR HIP 3V PELV+ AP/LAT LTon 05-26-2024 XR HIP 3V PELV+ AP/LAT LT * * *Final Report* * * DATE OF EXAM: May 26 2024 12:40PM WOX [id number] - XR HIP 3V PELV+ AP/LAT LT / PROCEDURE REASON: multiple diagnoses * * * * Physician Interpretation * * * * HISTORY: Chronic left hip pain Chronic left hip pain . chronic left hip pain. TECHNIQUE: XR HIP 3V PELV+ AP/LAT LT Laterality: LEFT Number of different views (projections): 3 COMPARISON: 06/19/2022 RESULT: No acute fracture or dislocation. Left hip joint space is maintained. Right hip joint space, pubic symphysis, and sacroiliac joints are maintained. Soft tissues are unremarkable. IMPRESSION: No acute osseous abnormality. Coding Auditor: PSCB Transcribe Date/Time: May 28 2024 4:20P Dictated by : LONG MENDOSA MD This examination was interpreted and the report reviewed and electronically signed by: LNOG MENDOSA MD on May 28 2024 4:21PM EST [id number] Normal [facility] CNTHERAPYon 03-24-2024 CNTHERAPY OT/PT/Speech Visit ( PTWS) LILLIAN VELAZQUEZ ([id number]) 1955 F Date Time Provider Department 03/24/24 11:30 AM QUOC MCCRACKEN PTWS Date Time Provider Department Center 03/24/2024 11:30 AM [id number], COREY PTWS Sonido Ventura Reason for Visit: PT Discharge [752] Primary Visit Diagnosis:Lumbar back pain [M54.50] Allergies As of Date: 03/24/2024 Noted Allergy Reaction AUGMENTIN (AMOXICILLIN-POT CLAVUL*11/01/2021 8 - GI Upset Date Reviewed: 03/10/2024 Reviewed by: Sheila Gerber MA - Fully Assessed Prescriptions as of 03/24/2024 - multivit with minerals/lutein (MULTIVITAMIN 50 PLUS ORAL) Take by mouth once daily. - docosahexaenoic acid/epa (FISH OIL ORAL) Take by mouth as directed. - MAGNESIUM ORAL Take by mouth as directed. - TURMERIC ORAL Take by mouth as directed. - pravastatin (PRAVACHOL) 20 mg tablet Take 1 tablet by mouth daily at bedtime. - gabapentin (NEURONTIN) 300 mg capsule Take 1 capsule by mouth two times a day for 180 days. - dicyclomine (BENTYL) 10 mg capsule Take 1 capsule by mouth before meals and at bedtime. - traZODone (DESYREL) 150 mg tablet Take 1 tablet by mouth daily at bedtime. - busPIRone (BUSPAR) 5 mg tablet Take 1 tablet by mouth three times a day as needed. PRN - levothyroxine (SYNTHROID) 88 mcg tablet Take 1 tablet by mouth daily before breakfast. Take one tablet daily before breakfast - losartan (COZAAR) 25 mg tablet Take 1 tablet by mouth once daily. Take one tablet daily - betamethasone dipropionate (DIPROSONE) 0.05 % cream Apply to affected area twice daily. [facility] Office Visit (UCTR ) LILLIAN VELAZQUEZ ([id number]) 1955 F Date Time Provider Department 03/10/24 12:15 PM TANK WATT [facility] During your visit today, we recorded the following information about you: Temperature Pulse Respiration Blood pressure 98 degrees 63/minute 21/minute 140/90 Weight 55.8 kg Tank Watt APRN.[facility] 03/10/2024 12:35 PM Signed Subjective Cough Associated symptoms include headaches, sore throat, myalgias and shortness of breath. Pertinent negatives include no chest pain, no chills and no ear pain. Lillian Velazquez is a 68 year old female who presents with cough, sinus congestion and drainage, sore throat and headache for the past 5 days. Symptoms are worsening and now having sinus pressure and body aches along with some tightness in her throat and chest. . She recently traveled to [place] by car for a . She has not had a fever. Cough is dry. She has been taking benadryl, tessalon perles, and using her inhaler. Review of Systems Constitutional: Positive for malaise/fatigue. Negative for chills and fever. HENT: Positive for congestion, sinus pain and sore throat. Negative for ear pain. Respiratory: Positive for cough and shortness of breath. Negative for sputum production. Cardiovascular: Negative for chest pain. Gastrointestinal: Negative for diarrhea, nausea and vomiting. Musculoskeletal: Positive for myalgias. Neurological: Positive for headaches. BP 140/90 Pulse 63 Temp 36.7 ?C (98 ?F) Resp 21 Wt 55.8 kg (123 lb 0.3 oz) SpO2 99% BMI 21.93 kg/m? PAST MEDICAL HISTORY Diagnosis Date Elevated blood sugar 11/19/2021 History of COVID-19 11/01/2021 10/11/2021 Hyperlipidemia, mixed 12/24/2022 Hypertension, essential 11/01/2021 Lumbar back pain 05/21/2022 Osteopenia, senile 08/26/2023 Postoperative hypothyroidism 11/01/2021 Removed due to goiter. Primary insomnia 11/01/2021 RLS (restless legs syndrome) 11/01/2021 On gabapentin PAST SURGICAL HISTORY Procedure Laterality Date COLONOSCOPY 01/22/2023 repeat 5 years CYST/MOLE REMOVAL Left 1977 benign cyst- Left breast PAST SURGICAL HISTORY OF 2018 cervical fusion PAST SURGICAL HISTORY OF 2017 right shoulder decompression PAST SURGICAL HISTORY OF Bilateral foot surgery THYROIDECTOMY 10/2018 due to goiter, no cancer TONSILLECTOMY HX 8 yo ALLERGIES Augmentin [Amoxicillin-Pot Clavulanate] MEDICATIONS multivit with minerals/lutein (MULTIVITAMIN 50 PLUS ORAL) Take by mouth once daily. docosahexaenoic acid/epa (FISH OIL ORAL) Take by mouth as directed. MAGNESIUM ORAL Take by mouth as directed. TURMERIC ORAL Take by mouth as directed. pravastatin (PRAVACHOL) 20 mg tablet Take 1 tablet by mouth daily at bedtime. gabapentin (NEURONTIN) 300 mg capsule Take 1 capsule by mouth two times a day for 180 days. dicyclomine (BENTYL) 10 mg capsule Take 1 capsule by mouth before meals and at bedtime. traZODone (DESYREL) 150 mg tablet Take 1 tablet by mouth daily at bedtime. busPIRone (BUSPAR) 5 mg tablet Take 1 tablet by mouth three times a day as needed. PRN levothyroxine (SYNTHROID) 88 mcg tablet Take 1 tablet by mouth daily before breakfast. Take one tablet daily before breakfast losartan (COZAAR) 25 mg tablet Take 1 tablet by mouth once daily. Take one tablet daily betamethasone dipropionate (DIPROSONE) 0.05 % cream Apply to affected area twice daily. doxycycline (VIBRA-TABS) 100 mg tablet Take 1 tablet by mouth two times a day for 7 days. predniSONE (DELTASONE) 20 mg tablet Take 2 tablets by mouth once daily for 4 days. benzonatate (TESSALON PERLE) 100 mg capsule Take 2 capsules by mouth three times a day as needed for up to 10 days. FAMILY HISTORY Problem Relation Age of Onset Cancer Mother Lung? other (a. fib) Father other (TIA) Father Hyperlipidemia Father Hypertension Father Hypertension Sister Stroke Maternal Grandmother Diabetes Maternal Grandmother Ischemic Heart Disease Maternal Grandfather Heart disease Maternal Grandfather Stroke Paternal Grandmother Heart Attack Paternal Grandfather Ovarian cancer Maternal Aunt Social History Tobacco Use Smoking status: Never Smokeless tobacco: Never Vaping Use Vaping status: Never Used Substance Use Topics Alcohol use: Not Currently Comment: occasionally Drug use: Never Objective Physical Exam Vitals and nursing note reviewed. Constitutional: General: She is not in acute distress. Appearance: Normal appearance. She is not ill-appearing. HENT: Right Ear: Tympanic membrane, ear canal and external ear normal. Left Ear: Tympanic membrane, ear canal and external ear normal. Nose: Nasal tenderness, mucosal edema, congestion and rhinorrhea present. Mouth/Throat: Mouth: Mucous membranes are moist. Pharynx: Oropharynx is clear. Uvula midline. No oropharyngeal exu (more content not included)... Normal [facility] [id number] 02-25-2024 [id number] HNO ID: [id number] Author: QUOC MCCRACKEN PT Service: ? Author Type: Physical Therapist Type: [id number] Filed: 02/25/2024 17:54 Note Text: [facility] Therapy Physical Therapy Plan of Care Certification Patient Name: Lillian Velazquez : 1955 [facility] #: [id number] Date: 02/25/2024 To: Remy Perez MD From Therapist: Quoc Mccracken PT RE: Patient Certification/ Recertification Your review, approval and electronic signature are required in order to comply with Payor: [employer] MEDICARE / Plan: [employer] GOLD PLUS / Product Type: HMO / regulations. The identified Physical Therapy PLAN OF CARE for the patient is as follows: M54.50 Lumbar back pain (primary encounter diagnosis) PLAN OF CARE UPDATE: Assessment: Lillian Velazquez demonstrates difficulty with none and improvements in lumbar AROM, pain intensity and independence with the HEP. The patient has progressed toward goals. Patient continues to present with impairments in tissue tenderness that interfere with nothing . Current prognosis is Good due to: current objective clinical presentation . The patient will benefit from continued skilled therapy services to meet the updated goals for this plan of care as noted below. Goals updated 02/23/2023 Goals for Episode of Care: created on 08/29/22 through 10/24/22 Pt will demo 4/5 glute med strength on the R for improved gait and decreased pain - Met Pt will be able to perform gardening with 1/10 pain or less in 8 weeks Progressing, will continue - Progressed Pt will demo normal lumbar flexion without symptoms in 8 weeks or less - MET Normal gait. - MET Patient Goals: Decrease the pain Time Frame for Goals and Treatment : 10/24/22 Patient Goals: Decrease her pain Planned Interventions, Frequency, and Duration: 1x/month, One month Total Number of Visits Planned: 1 Patient to be seen for Therapeutic exercise (25418), Neuromuscular re-education (28823), Manual therapy (81350), Therapeutic activities (61203), Self-skilled nursing management (74279), Patient/Family/Caregiver Education, Body Mechanics Training PLAN FOR NEXT VISIT: Possibly DDN and /or DC For further details regarding this patient refer to the Physical Therapy electronically documented visit dated 02/25/2024. Provider Attestation I have reviewed the treatment plan for Lillian Velazquez, [facility]# [id number] for the period of 02/25/24 -- 03/31/24, established on 02/25/2024. Signature certifies the need for therapy services. Normal [facility] CNTHERAPYon 02-25-2024 CNTHERAPY OT/PT/Speech Visit ( PTWS) MARENLILLIAN ([id number]) 1955 F Date Time Provider Department 02/25/24 5:15 PM QUOC MCCRACKEN PTWS Date Time Provider Department Center 02/25/2024 5:15 PM [id number], COREY PTWS Sonido Ventura Reason for Visit: PT Progress Note [8476] Primary Visit Diagnosis:Lumbar back pain [M54.50] Allergies As of Date: 02/25/2024 Noted Allergy Reaction AUGMENTIN (AMOXICILLIN-POT CLAVUL*11/01/2021 8 - GI Upset Date Reviewed: 02/08/2024 Reviewed by: New Renee LPN - Fully Assessed Prescriptions as of 02/25/2024 - multivit with minerals/lutein (MULTIVITAMIN 50 PLUS ORAL) Take by mouth once daily. - docosahexaenoic acid/epa (FISH OIL ORAL) Take by mouth as directed. - MAGNESIUM ORAL Take by mouth as directed. - TURMERIC ORAL Take by mouth as directed. - pravastatin (PRAVACHOL) 20 mg tablet Take 1 tablet by mouth daily at bedtime. - gabapentin (NEURONTIN) 300 mg capsule Take 1 capsule by mouth two times a day for 180 days. - dicyclomine (BENTYL) 10 mg capsule Take 1 capsule by mouth before meals and at bedtime. - traZODone (DESYREL) 150 mg tablet Take 1 tablet by mouth daily at bedtime. - busPIRone (BUSPAR) 5 mg tablet Take 1 tablet by mouth three times a day as needed. PRN - levothyroxine (SYNTHROID) 88 mcg tablet Take 1 tablet by mouth daily before breakfast. Take one tablet daily before breakfast - losartan (COZAAR) 25 mg tablet Take 1 tablet by mouth once daily. Take one tablet daily - betamethasone dipropionate (DIPROSONE) 0.05 % cream Apply to affected area twice daily. Normal [facility] CNTHERAPYon 02-11-2024 CNTHERAPY OT/PT/Speech Visit ( PTWS) LILLIAN VELAZQUEZ ([id number]) 1955 F Date Time Provider Department 02/11/24 10:45 AM QUOC MCCRACKEN PTWS Date Time Provider Department Center 02/11/2024 10:45 AM [id number], COREY PTWS Sonido Ventura Reason for Visit: Physical Therapy [503] Primary Visit Diagnosis:Lumbar back pain [M54.50] Allergies As of Date: 02/11/2024 Noted Allergy Reaction AUGMENTIN (AMOXICILLIN-POT CLAVUL*11/01/2021 8 - GI Upset Date Reviewed: 02/08/2024 Reviewed by: New Renee LPN - Fully Assessed Prescriptions as of 02/23/2024 - multivit with minerals/lutein (MULTIVITAMIN 50 PLUS ORAL) Take by mouth once daily. - docosahexaenoic acid/epa (FISH OIL ORAL) Take by mouth as directed. - MAGNESIUM ORAL Take by mouth as directed. - TURMERIC ORAL Take by mouth as directed. - pravastatin (PRAVACHOL) 20 mg tablet Take 1 tablet by mouth daily at bedtime. - gabapentin (NEURONTIN) 300 mg capsule Take 1 capsule by mouth two times a day for 180 days. - dicyclomine (BENTYL) 10 mg capsule Take 1 capsule by mouth before meals and at bedtime. - traZODone (DESYREL) 150 mg tablet Take 1 tablet by mouth daily at bedtime. - busPIRone (BUSPAR) 5 mg tablet Take 1 tablet by mouth three times a day as needed. PRN - levothyroxine (SYNTHROID) 88 mcg tablet Take 1 tablet by mouth daily before breakfast. Take one tablet daily before breakfast - losartan (COZAAR) 25 mg tablet Take 1 tablet by mouth once daily. Take one tablet daily - betamethasone dipropionate (DIPROSONE) 0.05 % cream Apply to affected area twice daily. [facility] LILLIAN VELAZQUEZ ([id number]) 1955 F Date Time Provider Department 02/09/24 AZIZA THOMPSON [facility] During your visit today, we recorded the following information about you: Aziza Thompson PA-C 02/09/2024 8:52 AM Signed Labs are overall okay. Cholesterol has improved. Thyroid levels are normal. Metabolic panel normal. Thanks. JOSE ALFREDO Shetty Kathryn, MA 02/09/2024 8:58 AM Signed Detailed message left on pt identified VM. Joslyn Dunne MA Allergies As of Date: 02/09/2024 Noted Allergy Reaction AUGMENTIN (AMOXICILLIN-POT CLAVUL*11/01/2021 8 - GI Upset Date Reviewed: 02/08/2024 Reviewed by: New Renee LPN - Fully Assessed Reason for Visit: Results [95] Prescriptions as of 02/09/2024 - multivit with minerals/lutein (MULTIVITAMIN 50 PLUS ORAL) Take by mouth once daily. - docosahexaenoic acid/epa (FISH OIL ORAL) Take by mouth as directed. - MAGNESIUM ORAL Take by mouth as directed. - TURMERIC ORAL Take by mouth as directed. - pravastatin (PRAVACHOL) 20 mg tablet Take 1 tablet by mouth daily at bedtime. - gabapentin (NEURONTIN) 300 mg capsule Take 1 capsule by mouth two times a day for 180 days. - dicyclomine (BENTYL) 10 mg capsule Take 1 capsule by mouth before meals and at bedtime. - traZODone (DESYREL) 150 mg tablet Take 1 tablet by mouth daily at bedtime. - busPIRone (BUSPAR) 5 mg tablet Take 1 tablet by mouth three times a day as needed. PRN - levothyroxine (SYNTHROID) 88 mcg tablet Take 1 tablet by mouth daily before breakfast. Take one tablet daily before breakfast - losartan (COZAAR) 25 mg tablet Take 1 tablet by mouth once daily. Take one tablet daily - betamethasone dipropionate (DIPROSONE) 0.05 % cream Apply to affected area twice daily. Problem List As Of Date 02/09/2024 Noted Resolved Primary insomnia [F51.01] 11/01/2021 Postoperative hypothyroidism [E89.0] 11/01/2021 Hypertension, essential [I10] 11/01/2021 RLS (restless legs syndrome) [G25.81] 11/01/2021 History of COVID-19 [Z86.16] 11/01/2021 Elevated blood sugar [R73.9] 11/19/2021 Positive ESTELLA (antinuclear antibody) [R76.8] 11/21/2021 Left upper extremity numbness [R20.0] 12/18/2021 Left hand pain [M79.642] 12/18/2021 Left arm pain [M79.602] 12/18/2021 Left hand weakness [R29.898] 12/18/2021 Cervical arthritis [M47.812] 01/01/2022 02/17/2022 Numbness and tingling in left arm [R20.0, R20.2]01/01/2022 02/17/2022 Pain of left upper extremity [M79.602] 01/01/2022 02/17/2022 Lumbar back pain [M54.50] 05/21/2022 Encounter for Medicare annual wellness exam [Z0*06/19/2022 Special screening for malignant neoplasms, colo*06/19/2022 Fall (on) (from) unspecified stairs and steps, *08/29/2022 Hyperlipidemia, mixed [E78.2] 12/24/2022 Advance directive discussed with patient [Z71.8*07/23/2023 Osteopenia, senile [M85.80] 08/26/2023 Spondylosis of lumbar region without myelopathy*12/23/2023 Encounter Status:Closed by JOSLYN DUNNE on 02/09/24 Normal [facility] Basic metabolic 2000 panelon 02-08-2024 Anion gap [Moles/Vol] 11 mmol/L Normal 8-15 [facility] Comment on above: Order Comment: Speci men Type: BLOOD SPECIMENOrdering Facility: [facility] Address: [address] [place] [address] Performed By: #### L IPNF, 19656-9, 6-3 ####[facility]CL[facility] [id number] [place] [address] [place] Calcium [Mass/Vol] 9.3 mg/dL Normal 8.5-10.2 [facility] Comment on above: Order Comment: Speci men Type: BLOOD SPECIMENOrdering Facility: [facility] Address: [address] [place] [address] Performed By: #### L IPNF, 34837-5, 3015-3 ####[facility] [id number] [place] [address] [place] Chloride [Moles/Vol] 102 mmol/L Normal 98-107 [facility] Comment on above: Order Comment: Speci men Type: BLOOD SPECIMENOrdering Facility: [facility] Address: [address] [place] [address] Performed By: #### L IPNF, 78203-3, 3015-3 ####[facility] [id number] [place] [id number] [place] CO2 [Moles/Vol] 27 mmol/L Normal 22-30 [facility] Comment on above: Order Comment: Speci men Type: BLOOD SPECIMENOrdering Facility: [facility] Address: [address] [place] [address] Performed By: #### L IPNF, 20665-8, 6-3 ####[facility] [id number] [address] [address] [place] Creatinine [Mass/Vol] 0.96 mg/dL Normal 0.58-0.96 [facility] Comment on above: Order Comment: Mira sky Type: BLOOD SPECIMENOrdering Facility: [facility] Address: [address] [place] [address] Performed By: #### L RASTA, 32266-8, 6-3 ####[facility] [id number] [address] [place] Creatinine and Glomerular filtration rate.predicted panel (S/P/Bld) 65 mL/min/1.73m??? Normal >=60 [facility] Comment on above: Order Comment: Mira sky Type: BLOOD SPECIMENOrdering Facility: [facility] Address: [address] [place] [address] Result Comment: Annie mated Glomerular Filtration Rate (eGFR) is calculated using the 2020 CKD-EPI creatinine equation. This equation utilizes serum creatinine, sex, and age as parameters. The creatinine assay has traceable calibration to isotope dilution-mass spectrometry. Refer to KDIGO guidelines for clinical interpretation. In patients with unstable renal function, e.g. those with acute kidney injury, the eGFR may not accurately reflect actual GFR. Performed By: #### L RASTA, 27543-0, 3 ####[facility] [id number] [place] [address] [place] Glucose [Mass/Vol] 76 mg/dL Normal 74-99 [facility] Comment on above: Order Comment: Mira sky Type: BLOOD SPECIMENOrdering Facility: [facility] Address: [address] [place] [address] Result Comment: The [place] Diabetes Association (ADA) provides guidance for cutoff values for fasting glucose and random glucose. The ADA defines fasting as no caloric intake for at least 8 hours. Fasting plasma glucose results between 100 to 125 mg/dL indicate increased risk for diabetes (prediabetes). Fasting plasma glucose results greater than or equal to 126 mg/dL meet the criteria for diagnosis of diabetes. In the absence of unequivocal hyperglycemia, results should be confirmed by repeat testing. In a patient with classic symptoms of hyperglycemia or hyperglycemic crisis, random plasma glucose results greater than or equal to 200 mg/dL meet the criteria for diagnosis of diabetes. Reference: Standards of Medical Care in Diabetes 2016, [place] Diabetes Association. Diabetes Care. 2016.39(Suppl 1). Performed By: #### L RASTA, 24939-4, 3015-06 ####[facility] [id number] [address] [address] [place] Potassium [Moles/Vol] 4.1 mmol/L Normal 3.7-5.1 [facility] Comment on above: Order Comment: Mira sky Type: BLOOD SPECIMENOrdering Facility: [facility] Address: [address] [place] [address] Performed By: #### L RASTA, , 3015-06 ####[facility]IA [id number] [place] [address] [place] Sodium [Moles/Vol] 140 mmol/L Normal 136-144 [facility] Comment on above: Order Comment: Mira sky Type: BLOOD SPECIMENOrdering Facility: [facility] Address: [address] [place] [address] Performed By: #### L RASTA, , 3015-06 ####[facility] [id number] [place] [address] [place] Urea nitrogen [Mass/Vol] 8 mg/dL Normal 7-21 [facility] Comment on above: Order Comment: Mira sky Type: BLOOD SPECIMENOrdering Facility: [facility] Address: [address] [place] [address] Performed By: #### L IPELI, , 3015-06 ####[facility] LABIA [id number] [place] [id number] [place] CNOVon 02-08-2024 [facility] Office Visit (FAMPWS ) LILLIAN VELAZQUEZ ([id number]) 1955 F Date Time Provider Department 02/08/24 1:20 PM AZIZA THOMPSON During your visit today, we recorded the following information about you: Temperature Pulse Respiration Blood pressure 97.3 degrees 52/minute 16/minute 126/86 Weight 54 kg Aziza Thompson PA-C 02/08/2024 2:07 PM Signed Chief Complaint Patient presents with: 6 Month Exam HPI Lillian Velazquez is a 68 year old female who presents here today for Chronic Medical Conditions.. Patient with hx of HTN, hyperlipidemia, hypothyroidism, elevated blood sugar, and those as below. Overall patient doing well. No specific concerns today. Past medical history, appointments, medications, allergies reviewed. Previous Medical History PAST MEDICAL HISTORY Diagnosis Date Elevated blood sugar 11/19/2021 History of COVID-19 11/01/2021 10/11/2021 Hyperlipidemia, mixed 12/24/2022 Hypertension, essential 11/01/2021 Lumbar back pain 05/21/2022 Osteopenia, senile 08/26/2023 Postoperative hypothyroidism 11/01/2021 Removed due to goiter. Primary insomnia 11/01/2021 RLS (restless legs syndrome) 11/01/2021 On gabapentin Previous Surgical History PAST SURGICAL HISTORY Procedure Laterality Date COLONOSCOPY 01/22/2023 repeat 5 years CYST/MOLE REMOVAL Left 1977 benign cyst- Left breast PAST SURGICAL HISTORY OF 2018 cervical fusion PAST SURGICAL HISTORY OF 2017 right shoulder decompression PAST SURGICAL HISTORY OF Bilateral foot surgery THYROIDECTOMY 10/2018 due to goiter, no cancer TONSILLECTOMY HX 8 yo Family History FAMILY HISTORY Problem Relation Age of Onset Cancer Mother Lung? other (a. fib) Father other (TIA) Father Hyperlipidemia Father Hypertension Father Hypertension Sister Stroke Maternal Grandmother Diabetes Maternal Grandmother Ischemic Heart Disease Maternal Grandfather Heart disease Maternal Grandfather Stroke Paternal Grandmother Heart Attack Paternal Grandfather Ovarian cancer Maternal Aunt Patient Allergies ALLERGIES Allergen Reactions Augmentin [Amoxicil* GI Upset Current Medications Current Outpatient Medications on File Prior to Visit Medication Sig multivit with minerals/lutein (MULTIVITAMIN 50 PLUS ORAL) Take by mouth once daily. docosahexaenoic acid/epa (FISH OIL ORAL) Take by mouth as directed. MAGNESIUM ORAL Take by mouth as directed. TURMERIC ORAL Take by mouth as directed. pravastatin (PRAVACHOL) 20 mg tablet Take 1 tablet by mouth daily at bedtime. gabapentin (NEURONTIN) 300 mg capsule Take 1 capsule by mouth two times a day for 180 days. dicyclomine (BENTYL) 10 mg capsule Take 1 capsule by mouth before meals and at bedtime. traZODone (DESYREL) 150 mg tablet Take 1 tablet by mouth daily at bedtime. busPIRone (BUSPAR) 5 mg tablet Take 1 tablet by mouth three times a day as needed. PRN levothyroxine (SYNTHROID) 88 mcg tablet Take 1 tablet by mouth daily before breakfast. Take one tablet daily before breakfast losartan (COZAAR) 25 mg tablet Take 1 tablet by mouth once daily. Take one tablet daily betamethasone dipropionate (DIPROSONE) 0.05 % cream Apply to affected area twice daily. No current facility-administered medications on file prior to visit. Social History Social History Tobacco Use Smoking status: Never Smokeless tobacco: Never Vaping Use Vaping status: Never Used Substance Use Topics Alcohol use: Not Currently Comment: occasionally Drug use: Never Review of Symptoms REVIEW OF SYSTEMS GENERAL: No weight loss, malaise or fevers NECK: Negative for lumps, goiter, pain and significant neck swelling RESPIRATORY: Negative for cough, hemoptysis, wheezing, COPD, dyspnea or shortness of breath CARDIOVASCULAR: Negative for chest pain, leg swelling, hypertension, CHF or palpitations NEURO: No history of headaches, syncope, paralysis, seizures or tremors EXAM: BP 126/86 (BP Site: Right Arm, BP Position: Sitting, BP Cuff Size: Regular Adult) Pulse (!) 52 Temp 36.3 ?C (97.3 ?F) Resp 16 Wt 54 kg (119 lb) SpO2 99% BMI 21.22 kg/m? General Appearance: Well appearing, alert, in no acute distress, well-hydrated, well nourished.. Neck: Supple, no adenopathy; thyroid symmetric, normal size, no bruits. Lungs: Lungs clear to auscultation. No wheezing, rhonchi, rales.. Heart: RRR without murmur, gallop, or rubs. No ectopy. Extremities: No deformities, edema, skin discoloration, clubbing or cyanosis. Good capillary refill. . Peripheral Pulses: Normal. Health Maintenance List DTaP,Tdap,Td Vaccine(1 - Tdap) Never done Shingrix Vaccine(1 of 2) Never done Influenza Vaccine(1) due on 12/20/2023 Mammogram Screening due on 05/20/2024 Covid-19 Vaccine( season) due on 02/07/2025 Depression Screening due on 07/22/2024 Anxiety Screening due on (more content not included)... Normal [facility] LIPID PANEL, NONFASTINGon Cholesterol [Mass/Vol] 216 mg/dL High <200 [facility] Comment on above: Order Comment: Speci men Type: BLOOD SPECIMENOrdering Facility: [facility] Address: [address] [place] [address] Result Comment: <200 mg/dL, Desirable 200-239 mg/dL, Borderline high >239 mg/dL, High Performed By: #### L IPNF, 76267-4, 3015-3 ####[facility]CL[facility] [id number] [place] [address] [place] HDL CHOLESTEROL, NF 66 mg/dL Normal >39 [facility] Comment on above: Order Comment: Speci men Type: BLOOD SPECIMENOrdering Facility: [facility] Address: [address] [place] [address] Result Comment: 40-5 9 mg/dL, Acceptable >59 mg/dL, High: Negative risk factor for coronary heart disease <40 mg/dL, Low: Positive risk factor for coronary heart disease Performed By: #### L IPNF, 76813-9, 3015-3 ####[facility] [id number] [place] [address] [place] LDL CHOLESTEROL, NF 120 mg/dL High <100 [facility] Comment on above: Order Comment: Speci men Type: BLOOD SPECIMENOrdering Facility: [facility] Address: [address] [place], [place] [id number] Result Comment: <100 mg/dL, Optimal 100-129 mg/dL, Near optimal/above optimal 130-159 mg/dL, Borderline high 160-189 mg/dL, High >189 mg/dL, Very high Secondary prevention optimal LDL Cholesterol levels are recommended to be < 70 mg/dL Performed By: #### L RASTA, 77041-4, 6-3 ####[facility] [id number] [address] [facility] LDL/HDL RATIO, NF 1.82 mg/dL Normal <2.54 [facility] Comment on above: Order Comment: Mira sky Type: BLOOD SPECIMENOrdering Facility: [facility] Address: [address] [place] [address] Result Comment: Refe rence: 1. National Cholesterol Education Program ATP III Guideline At-A-Glance Quick Desk Reference: National Heart, Lung, and Blood [place]. National Institutes of Health. 2001: NIH Publication No. 01-3305. 2. An International Atherosclerosis Society position paper: global recommendations for the management of dyslipidemia: executive summary, Atherosclerosis. 2014: 232(2):410-413. Performed By: #### L RASTA, 33462-7, 3015-3 ####[facility] [id number] [address] NON HDL CHOL, NF 150 mg/dL High <130 [facility] Comment on above: Order Comment: Mira sky Type: BLOOD SPECIMENOrdering Facility: [facility] Address: [address] [place] [address] Result Comment: <130 mg/dL, Optimal 130-159 mg/dL, Near optimal/above optimal 160-189 mg/dL, Borderline high 190-219 mg/dL, High >219 mg/dL, Very high Secondary prevention optimal non HDL Cholesterol levels are recommended to be <100 mg/dL Performed By: #### L RASTA, 77089-7, 6-3 ####[facility] [id number] [address] [place] T CHOL/HDL RATIO NF 3.27 mg/dL Normal <5.10 [facility] Comment on above: Order Comment: Speci men Type: BLOOD SPECIMENOrdering Facility: [facility] Address: [address] [place] [address] Performed By: #### L IPNF, 54484-3, 6-3 ####[facility] [id number] [place] [address] [place] TRIGLYCERIDES, NF 151 mg/dL High <150 [facility] Comment on above: Order Comment: Speci men Type: BLOOD SPECIMENOrdering Facility: [facility] Address: [address] [place] [address] Result Comment: <150 mg/dL, Normal 150-199 mg/dL, Borderline high 200-499 mg/dL, High >499 mg/dL, Very high Performed By: #### L IPNF, 16554-7, 3 ####[facility] [id number] [place] [address] [place] VLDL CHOLESTEROL, NF 30 mg/dL High <30 [facility] Comment on above: Order Comment: Speci men Type: BLOOD SPECIMENOrdering Facility: [facility] Address: [address] [place] [address] Performed By: #### L IPNF, 97792-6, 3015-3 ####[facility] [id number] [place] [address] [place] TSH SerPl-aCncon 02-08-2024 TSH Qn 1.140 m[IU]/L Normal 0.270-4.20 0 [facility] Comment on above: Order Comment: Speci men Type: BLOOD SPECIMENOrdering Facility: [facility] Address: [address] [place] [address] Performed By: #### L IPNF, 05735-9, 3015-3 ####[facility] [id number] [address] [address] [place] [facility] [id number] 01-21-2024 [id number] HNO ID: [id number] Author: QUOC MCCRACKEN PT Service: ? Author Type: Physical Therapist Type: [id number] Filed: 01/21/2024 15:36 Note Text: [facility] Rehabilitation [facility] Sports Therapy Physical Therapy Plan of Care Certification Patient Name: Lillian Velazquez : 1955 [facility] #: [id number] Date: 01/21/2024 To: Remy Perez MD From Therapist: Quoc Mccracken PT RE: Patient Certification/ Recertification Your review, approval and electronic signature are required in order to comply with Payor: [employer] MEDICARE / Plan: [employer] / Product Type: HMO / regulations. The identified Physical Therapy PLAN OF CARE for the patient is as follows: M54.50 Lumbar back pain M47.816 Spondylosis of lumbar region without myelopathy or radiculopathy PLAN OF CARE: Assessment: Lillian Velazquez presents with chief complaint of LBP and SIJ pain that interferes with sitting . The patient presents with impairments in ADL's, independence in exercise, overall function, and strength. PROMIS? (Patient-Reported Outcomes Measurement Information System) scores were reviewed and identified as a rehabilitation concern. Prognosis for therapy is Good due to: current objective clinical presentation . End range pain on the R LB and weakness of the R hip is most notable during this exam. The patient will benefit from skilled therapy services to meet the goals established for this plan of care as noted below. Classification Pain Mechanism Classification: Nociceptive Goals for Episode of Care: established 01/21/24 Independent in home exercises. Pt will demo hip strength of 4+/5 or greater for improved hip stability and decreased SIJ pain and back pain. Pt will demo full lumbar ROM without pain in 12 weeks or less Patient Goals: Decrease her pain Planned Interventions, Frequency, and Duration: Current Frequency: 1x/week Duration: 8 weeks Total Number of Visits Planned: 8 Planned Treatment Interventions: Therapeutic exercise (52105), Neuromuscular re-education (56876), Manual therapy (60659), Therapeutic activities (95661), Self-skilled nursing management (30273), Patient/Family/Caregiver Education, Body Mechanics Training PLAN FOR NEXT VISIT: Hip strengthening. Possible DDN to lumbar spine. Patient demonstrates good understanding of plan of care and treatment. The above goals and plan of care were discussed and agreed upon by patient/family. For further details regarding this patient refer to the Physical Therapy electronically documented visit dated 01/21/2024. Provider Attestation I have reviewed the treatment plan for Lillian Velazquez [facility]# [id number] for the period of 01/21/24 -- 02/25/24, established on 01/21/2024. Signature certifies the need for therapy services. 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 - dicyclomine (BENTYL) 10 mg capsule Take 1 capsule by mouth before meals and at bedtime. - traZODone (DESYREL) 150 mg tablet Take 1 tablet by mouth daily at bedtime. - busPIRone (BUSPAR) 5 mg tablet Take 1 tablet by mouth three times a day as needed. PRN - levothyroxine (SYNTHROID) 88 mcg tablet Take 1 tablet by mouth daily before breakfast. Take one tablet daily before breakfast - losartan (COZAAR) 25 mg tablet Take 1 tablet by mouth once daily. Take one tablet daily - pravastatin (PRAVACHOL) 20 mg tablet Take 1 tablet by mouth daily at bedtime. - betamethasone dipropionate (DIPROSONE) 0.05 % cream Apply to affected area twice daily. Sales And Events Coordinator: Therapy (PT/OT/Speech/Resp) ID: [id number] 01/21/2024 2:56 PM Author: QUOC MCCRACKEN Signed by QUOC MCCRACKEN PT on 01/21/2024 at 2:56 PM Document text: Program_ID:[id number] Access Code: [email or web address] URL: [email or web address]/ Date: 01-21-2024 Prepared By: Quoc Mccracken Program Notes Exercises - Clamshell - 1 x daily - 7 x weekly - 4 sets - 10 reps - Sidelying Hip Abduction - 1 x daily - 7 x weekly - 4 sets - 10 reps - Clamshell - 1 x daily - 7 x weekly - 4 sets - 10 reps - Sidelying Hip Abduction - 1 x daily - 7 x weekly - 4 sets - 10 reps Normal [facility] THERAPY NTon 01-21-2024 THERAPY NT HNO ID: [id number] Author: QUOC MCCRACKEN, PT Service: ? Author Type: Physical Therapist Type: Therapy (PT/OT/Speech/Resp) Filed: 01/21/2024 14:56 Note Text: Program_ID:[id number] Access Code: [email or web address] URL: [email or web address] Date: 01-21-2024 Prepared By: Quoc Mccracken Program Notes Exercises - Clamshell - 1 x daily - 7 x weekly - 4 sets - 10 reps - Sidelying Hip Abduction - 1 x daily - 7 x weekly - 4 sets - 10 reps - Clamshell - 1 x daily - 7 x weekly - 4 sets - 10 reps - Sidelying Hip Abduction - 1 x daily - 7 x weekly - 4 sets - 10 reps Normal [facility] ([id number]) 1955 F Date Time Provider Department 12/17/23 AZIZA THOMPSON During your visit today, we recorded the following information about you: Aziza Thompson PA-C 12/17/2023 10:44 AM Signed Let patient know that her mri of spine was overall normal. Mild arthritic changes. I'd recommend having her do dedicated Physical Therapy for her back if she is willing. JOSE ALFREDO Shetty Sherill A, LPN 12/17/2023 11:45 AM Signed Left message for pt to contact office. ASHOK Clifford Sherill A, LPN 12/22/2023 7:07 AM Signed Sent pt result note via pt's request through My Chart. See My Chart Message. New Renee LPN Allergies As of Date: 12/17/2023 Noted Allergy Reaction AUGMENTIN (AMOXICILLIN-POT CLAVUL*11/01/2021 8 - GI Upset Date Reviewed: 11/19/2023 Reviewed by: New Renee LPN - Fully Assessed Reason for Visit: Results [95] Prescriptions as of 12/22/2023 - dicyclomine (BENTYL) 10 mg capsule Take 1 capsule by mouth before meals and at bedtime. - traZODone (DESYREL) 150 mg tablet Take 1 tablet by mouth daily at bedtime. - busPIRone (BUSPAR) 5 mg tablet Take 1 tablet by mouth three times a day as needed. PRN - levothyroxine (SYNTHROID) 88 mcg tablet Take 1 tablet by mouth daily before breakfast. Take one tablet daily before breakfast - losartan (COZAAR) 25 mg tablet Take 1 tablet by mouth once daily. Take one tablet daily - pravastatin (PRAVACHOL) 20 mg tablet Take 1 tablet by mouth daily at bedtime. - gabapentin (NEURONTIN) 300 mg capsule Take 1 capsule by mouth two times a day for 180 days. - betamethasone dipropionate (DIPROSONE) 0.05 % cream Apply to affected area twice daily. Problem List As Of Date 12/17/2023 Noted Resolved Primary insomnia [F51.01] 11/01/2021 Postoperative hypothyroidism [E89.0] 11/01/2021 Hypertension, essential [I10] 11/01/2021 RLS (restless legs syndrome) [G25.81] 11/01/2021 History of COVID-19 [Z86.16] 11/01/2021 Elevated blood sugar [R73.9] 11/19/2021 Positive ESTELLA (antinuclear antibody) [R76.8] 11/21/2021 Left upper extremity numbness [R20.0] 12/18/2021 Left hand pain [M79.642] 12/18/2021 Left arm pain [M79.602] 12/18/2021 Left hand weakness [R29.898] 12/18/2021 Cervical arthritis [M47.812] 01/01/2022 02/17/2022 Numbness and tingling in left arm [R20.0, R20.2]01/01/2022 02/17/2022 Pain of left upper extremity [M79.602] 01/01/2022 02/17/2022 Lumbar back pain [M54.50] 05/21/2022 Encounter for Medicare annual wellness exam [Z0*06/19/2022 Special screening for malignant neoplasms, colo*06/19/2022 Fall (on) (from) unspecified stairs and steps, *08/29/2022 Hyperlipidemia, mixed [E78.2] 12/24/2022 Advance directive discussed with patient [Z71.8*07/23/2023 Osteopenia, senile [M85.80] 08/26/2023 Encounter Status:Closed by VÍCTOR DARRENBRITTNI Yuen on 12/22/23 Normal [facility] MR Lumbar spine WO contrasto n 12-17-2023 IMPRESSION: Relatively mild degenerative change as noted. Capacious spinal canal. No impingement of the cord or nerve roots of the cauda equina. Minimal left foraminal narrowing at L5-S1. Facet remains visible surrounding the exiting left L5 nerve root. Anatomic Lumbar Variant: None. L4-5 is considered the level of the iliac crest and assume there are 5 lumbar-type vertebrae. Coding Auditor: PSCB Transcribe Date/Time: Dec 17 2023 9:04A Dictated by : REG BARDALES MD This examination was interpreted and the report reviewed and electronically signed by: REG BARDALES MD on Dec 17 2023 9:07AM [facility] DIVISION OF RADIOLOGY * * *Final Report* * * DATE OF EXAM: Dec 17 2023 8:57AM [facility] 0303 - MRI LUMBAR SPINE WO IVCON / PROCEDURE REASON: multiple diagnoses * * * * Physician Interpretation * * * * EXAMINATION: MRI LUMBAR SPINE WO IVCON CLINICAL HISTORY: Radiculopathy of lumbar region Chronic midline low back pain without sciatica Chronic midline low back pain without sciatica Decreased reflex TECHNIQUE: Routine lumbosacral spine MR protocol without gadolinium. MQ: [id number]_3 COMPARISON: Previous lumbar plain films 07/14/2022. RESULT: Counting reference: Lumbosacral junction. For the purposes of this report, L4-5 is considered the level of the iliac crest and assume there are 5 lumbar-type vertebrae. Anatomic variant: None. Localizer images: No paraspinal masses are evident. Alignment: Very subtle curvature convex right in the coronal plane, apex L3-L4. In the sagittal plane, there is 4 mm retrolisthesis of L5 over S1. Bone marrow signal/fracture: No evidence of pathologic marrow infiltration. No evidence of prior fracture. Conus: Distal cord terminates normally at the upper one third of L2. Paraspinal soft tissues: As above. Lower thoracic spine: Visualized lower thoracic canal and foramina are patent. L1-L2: Minor disc bulging. Canal and foramina are patent. L2-L3: Minor disc bulging. Canal and foramina are patent. L3-L4: Minor disc bulging. Mild facet degenerative change. Canal and foramina are patent. L4-L5: Minor disc bulging. Mild facet degenerative change. Canal and foramina are patent. L5-S1: Loss of disc height posteriorly, retrolisthesis, minimal disc bulging, and facet degenerative change. Central thecal sac is patent. No gross compression of either descending S1 nerve root sleeve. Right neural foramen is patent. Left is minimally narrowed. Fat remains visible surrounding the exiting left L5 nerve root. Sacrum and iliac wings: No evidence for fracture. S3 Tarlov cysts. DIVISION OF RADIOLOGY Provider, [facility] - 12/17/2023 * * *Final Report* * * DATE OF EXAM: Dec 17 2023 8:57AM [facility] 0303 - MRI LUMBAR SPINE WO IVCON / PROCEDURE REASON: multiple diagnoses * * * * Physician Interpretation * * * * EXAMINATION: MRI LUMBAR SPINE WO IVCON CLINICAL HISTORY: Radiculopathy of lumbar region Chronic midline low back pain without sciatica Chronic midline low back pain without sciatica Decreased reflex TECHNIQUE: Routine lumbosacral spine MR protocol without gadolinium. MQ: [id number]_3 COMPARISON: Previous lumbar plain films 07/14/2022. RESULT: Counting reference: Lumbosacral junction. For the purposes of this report, L4-5 is considered the level of the iliac crest and assume there are 5 lumbar-type vertebrae. Anatomic variant: None. Localizer images: No paraspinal masses are evident. Alignment: Very subtle curvature convex right in the coronal plane, apex L3-L4. In the sagittal plane, there is 4 mm retrolisthesis of L5 over S1. Bone marrow signal/fracture: No evidence of pathologic marrow infiltration. No evidence of prior fracture. Conus: Distal cord terminates normally at the upper one third of L2. Paraspinal soft tissues: As above. Lower thoracic spine: Visualized lower thoracic canal and foramina are patent. L1-L2: Minor disc bulging. Canal and foramina are patent. L2-L3: Minor disc bulging. Canal and foramina are patent. L3-L4: Minor disc bulging. Mild facet degenerative change. Canal and foramina are patent. L4-L5: Minor disc bulging. Mild facet degenerative change. Canal and foramina are patent. L5-S1: Loss of disc height posteriorly, retrolisthesis, minimal disc bulging, and facet degenerative change. Central thecal sac is patent. No gross compression of either descending S1 nerve root sleeve. Right neural foramen is patent. Left is minimally narrowed. Fat remains visible surrounding the exiting left L5 nerve root. Sacrum and iliac wings: No evidence for fracture. S3 Tarlov cysts. IMPRESSION IMPRESSION: Relatively mild degenerative change as noted. Capacious spinal canal. No impingement of the cord or nerve roots of the cauda equina. Minimal left foraminal narrowing at L5-S1. Facet remains visible surrounding the exiting left L5 nerve root. Anatomic Lumbar Variant: None. L4-5 is considered the level of the iliac crest and assume there are 5 lumbar-type vertebrae. Coding Auditor: SAM Transcribe Date/Time: Dec 17 2023 9:04A Dictated by : REG BARDALES MD This examination was interpreted and the report reviewed and electronically signed by: REG BARDALES MD on Dec 17 2023 9:07AM EST [facility] Radiology Study observation (narrative) [facility] MR Lumbar spine WO contrastO rdered By: [facility] Provider on 12-17-2023 [facility] MRI LUMBAR SPINE WO IVCONon 12-17-2023 MRI LUMBAR SPINE WO IVCON * * *Final Report* * * DATE OF EXAM: Dec 17 2023 8:57AM [facility] 0303 - MRI LUMBAR SPINE WO IVCON / PROCEDURE REASON: multiple diagnoses * * * * Physician Interpretation * * * * EXAMINATION: MRI LUMBAR SPINE WO IVCON CLINICAL HISTORY: Radiculopathy of lumbar region Chronic midline low back pain without sciatica Chronic midline low back pain without sciatica Decreased reflex TECHNIQUE: Routine lumbosacral spine MR protocol without gadolinium. MQ: MRLSPWO_3 COMPARISON: Previous lumbar plain films 07/14/2022. RESULT: Counting reference: Lumbosacral junction. For the purposes of this report, L4-5 is considered the level of the iliac crest and assume there are 5 lumbar-type vertebrae. Anatomic variant: None. Localizer images: No paraspinal masses are evident. Alignment: Very subtle curvature convex right in the coronal plane, apex L3-L4. In the sagittal plane, there is 4 mm retrolisthesis of L5 over S1. Bone marrow signal/fracture: No evidence of pathologic marrow infiltration. No evidence of prior fracture. Conus: Distal cord terminates normally at the upper one third of L2. Paraspinal soft tissues: As above. Lower thoracic spine: Visualized lower thoracic canal and foramina are patent. L1-L2: Minor disc bulging. Canal and foramina are patent. L2-L3: Minor disc bulging. Canal and foramina are patent. L3-L4: Minor disc bulging. Mild facet degenerative change. Canal and foramina are patent. L4-L5: Minor disc bulging. Mild facet degenerative change. Canal and foramina are patent. L5-S1: Loss of disc height posteriorly, retrolisthesis, minimal disc bulging, and facet degenerative change. Central thecal sac is patent. No gross compression of either descending S1 nerve root sleeve. Right neural foramen is patent. Left is minimally narrowed. Fat remains visible surrounding the exiting left L5 nerve root. Sacrum and iliac wings: No evidence for fracture. S3 Tarlov cysts. IMPRESSION: Relatively mild degenerative change as noted. Capacious spinal canal. No impingement of the cord or nerve roots of the cauda equina. Minimal left foraminal narrowing at L5-S1. Facet remains visible surrounding the exiting left L5 nerve root. Anatomic Lumbar Variant: None. L4-5 is considered the level of the iliac crest and assume there are 5 lumbar-type vertebrae. Coding Auditor: [facility] Transcribe Date/Time: Dec 17 2023 9:04A Dictated by : REG BARDALES MD This examination was interpreted and the report reviewed and electronically signed by: REG BARDALES MD on Dec 17 2023 9:07AM EST [id number] Normal [facility] CNOVon 11-19-2023 CNOV Office Visit (FAMPWS ) LILLIAN VELAZQUEZ ([id number]) 1955 F Date Time Provider Department 11/19/23 3:20 PM AZIZA THOMPSON During your visit today, we recorded the following information about you: Temperature Pulse Respiration Blood pressure 99.2 degrees 72/minute 16/minute 106/76 Weight 53.1 kg Aziza Thompson PA-C 11/19/2023 3:39 PM Signed Chief Complaint Patient presents with: Back Pain: On going has been getting worse HPI Lillian Velazquez is a 67 year old female who presents here today for chronic back pain. Patient states she has always had some low back pain but since her fall/injury in june of 2022, she feels like things has been worse. She fell down flight of stairs. Xrays showed mild arthritis. No fractures. Did do therapy. Reports that this spring and summer has been miserable. States that pretty much any activity will cause pain. Even simple movements like twisting to grab something will cause a sharp stabbing pain. Pain feels like it is center and radiates out to right side. No n/t but does get radiating pain into the buttocks/thigh and down into knee. Past medical history, appointments, medications, allergies reviewed. Previous Medical History PAST MEDICAL HISTORY 11/19/2021: Elevated blood sugar 11/01/2021: History of COVID-19 Comment: 10/11/2021 11/01/2021: Hypertension, essential 11/01/2021: Postoperative hypothyroidism Comment: Removed due to goiter. 11/01/2021: Primary insomnia 11/01/2021: RLS (restless legs syndrome) Comment: On gabapentin Previous Surgical History PAST SURGICAL HISTORY 01/22/2023: COLONOSCOPY Comment: repeat 5 years 1977: CYST/MOLE REMOVAL; Left Comment: benign cyst- Left breast 2018: PAST SURGICAL HISTORY OF Comment: cervical fusion 2017: PAST SURGICAL HISTORY OF Comment: right shoulder decompression No date: PAST SURGICAL HISTORY OF; Bilateral Comment: foot surgery 10/2018: THYROIDECTOMY Comment: due to goiter, no cancer No date: TONSILLECTOMY HX Comment: 8 yo Family History FAMILY HISTORY Problem Relation Age of Onset Cancer Mother Lung? other (a. fib) Father other (TIA) Father Hyperlipidemia Father Hypertension Father Hypertension Sister Stroke Maternal Grandmother Diabetes Maternal Grandmother Ischemic Heart Disease Maternal Grandfather Heart disease Maternal Grandfather Stroke Paternal Grandmother Heart Attack Paternal Grandfather Ovarian cancer Maternal Aunt Patient Allergies ALLERGIES Allergen Reactions Augmentin [Amoxicil* GI Upset Current Medications Current Outpatient Medications on File Prior to Visit Medication Sig traZODone (DESYREL) 150 mg tablet Take 1 tablet by mouth daily at bedtime. busPIRone (BUSPAR) 5 mg tablet Take 1 tablet by mouth three times a day as needed. PRN levothyroxine (SYNTHROID) 88 mcg tablet Take 1 tablet by mouth daily before breakfast. Take one tablet daily before breakfast losartan (COZAAR) 25 mg tablet Take 1 tablet by mouth once daily. Take one tablet daily pravastatin (PRAVACHOL) 20 mg tablet Take 1 tablet by mouth daily at bedtime. gabapentin (NEURONTIN) 300 mg capsule Take 1 capsule by mouth two times a day for 180 days. dicyclomine (BENTYL) 10 mg capsule Take 1 capsule by mouth before meals and at bedtime. betamethasone dipropionate (DIPROSONE) 0.05 % cream Apply to affected area twice daily. No current facility-administered medications on file prior to visit. Social History Social History Tobacco Use Smoking status: Never Smokeless tobacco: Never Vaping Use Vaping Use: Never used Substance Use Topics Alcohol use: Not Currently Comment: occasionally Drug use: Never Review of Symptoms REVIEW OF SYSTEMS See hpi EXAM: BP 106/76 (BP Site: Right Arm, BP Position: Sitting, BP Cuff Size: Regular Adult) Pulse 72 Temp 37.3 ?C (99.2 ?F) Resp 16 Wt 53.1 kg (117 lb) SpO2 95% BMI 20.86 kg/m? General Appearance: Well appearing, alert, in no acute distress, well-hydrated, well nourished.. Musculoskeletal: pain to palp of lumbar spine. Pain at SI joints. SLR negative. FROM. Neurologic: gait normal. Patella reflex decreased on R compared to L. Sensation intact. Health Maintenance List DTaP,Tdap,Td Vaccine(1 - Tdap) Never done Shingrix Vaccine(1 of 2) Never done RSV Vaccine(1 - 1-dose 60+ series) Never done Mammogram Screening due on 05/20/2024 Covid-19 Vaccine(4 - 2022- season) due on 07/22/2024 Influenza Vaccine(1) due on 12/20/2023 Depression Screening due on 07/22/2024 Anxiety Screening due on 07/22/2024 BP Controlled (<130/80) due on 07/22/2024 Annual PCP Team Chronic Disease Visit due on 08/25/2024 Diabetes Screening due on 08/02/2026 Colorectal Cancer Screening due on 01/23/2028 Lipid Screening due on 07/23/2028 Bone Density Screening Completed Advance Directive Discussion Completed (more content not included)... Normal [facility] COVID & INFLUENZA A/B & RSV NAAT, ROUTINEon 04-08-2023 FLUAV RNA EZEQUIEL+probe Ql (Unsp spec) Not detected Not Detected [facility] FLUBV RNA EZEQUIEL+probe Ql (Unsp spec) Not detected Not Detected [facility] RSV A RNA EZEQUIEL+probe Ql (Unsp spec) Detected Abnormal Not Detected [facility] SARS-CoV-2 (COVID-19) RNA EZEQUIEL+probe Ql (Resp) Not detected See comment [facility] XR CHEST 2V FRONTAL/LATon [facility] XR Chest PA and Lateralon IMPRESSION: No acute radiographic abnormality. Coding Auditor: [facility] Transcribe Date/Time: Apr 08 2023 11:49A Dictated by : TOYA DEL VALLE MD This examination was interpreted and the report reviewed and electronically signed by: TOYA DEL VALLE MD on Apr 08 2023 11:50AM [facility] DIVISION OF RADIOLOGY * * *Final Report* * * DATE OF EXAM: Apr 08 2023 11:34AM WOX [id number] - XR CHEST 2V FRONTAL/LAT / PROCEDURE REASON: Acute cough * * * * Physician Interpretation * * * * EXAMINATION: CHEST RADIOGRAPH (2 VIEW FRONTAL & LATERAL) CLINICAL HISTORY: Acute cough MQ: XC2_6 EXAM DATE/TIME: 04/08/2023 11:34 AM COMPARISON: No relevant prior studies available. RESULT: Lines, tubes, and devices: None. Lungs and pleura: No consolidation. No lung mass. No pleural effusion. No pneumothorax. Cardiomediastinal silhouette: Normal cardiomediastinal silhouette. Bones and soft tissues: Status post cervical spinal fusion. DIVISION OF RADIOLOGY Provider, [facility] - 04/08/2023 * * *Final Report* * * DATE OF EXAM: Apr 08 2023 11:34AM WOX 5291 - XR CHEST 2V FRONTAL/LAT / PROCEDURE REASON: Acute cough * * * * Physician Interpretation * * * * EXAMINATION: CHEST RADIOGRAPH (2 VIEW FRONTAL & LATERAL) CLINICAL HISTORY: Acute cough MQ: XC2_6 EXAM DATE/TIME: 04/08/2023 11:34 AM COMPARISON: No relevant prior studies available. RESULT: Lines, tubes, and devices: None. Lungs and pleura: No consolidation. No lung mass. No pleural effusion. No pneumothorax. Cardiomediastinal silhouette: Normal cardiomediastinal silhouette. Bones and soft tissues: Status post cervical spinal fusion. IMPRESSION IMPRESSION: No acute radiographic abnormality. Coding Auditor: [facility] Transcribe Date/Time: Apr 08 2023 11:49A Dictated by : TOYA DEL VALLE MD This examination was interpreted and the report reviewed and electronically signed by: TOYA DEL VALLE MD on Apr 08 2023 11:50AM [facility] Radiology Study observation (narrative) [facility] XR Chest PA and LateralOrder ed By: Ccf Provider on 04-08-2023 [facility] XR KNEE GENERAL 4V AP BOTH/P A BOTH/LAT/MERC BILATERALon 02-11-2023 [facility] XR Knee - bilateral 4 Viewso n 02-11-2023 IMPRESSION: No acute osseous abnormality. Small bilateral joint effusions. Coding Auditor: [facility] Transcribe Date/Time: Feb 11 2023 2:01P Dictated by : QUINTEN MORE DO This examination was interpreted and the report reviewed and electronically signed by: QUINTEN MORE DO on Feb 11 2023 2:03PM [facility] DIVISION OF RADIOLOGY * * *Final Report* * * DATE OF EXAM: Feb 11 2023 2:00PM WOX [id number] - XR KNEE 4V AP/PA/LAT/MERCH MARIBEL / PROCEDURE REASON: multiple diagnoses * * * * Physician Interpretation * * * * EXAMINATION: XR KNEE 4V AP/PA/LAT/MERCH MARIBEL PATIENT/TECHNOLOGIST PROVIDED HISTORY: Bilateral diffuse knee pain x 5 days without injury CLINICAL INFORMATION: 67 years old Female with Acute pain of both knees TECHNIQUE: XR KNEE 4V AP/PA/LAT/MERCH MARIBEL Laterality: BILATERAL Number of different views (projections): 4 views of each knee COMPARISON: Radiographs 06/19/2022 RESULT: Joint spaces are maintained. Small bilateral joint effusions. No fracture. DIVISION OF RADIOLOGY Provider, Meliza Brittney Mendez - 02/11/2023 * * *Final Report* * * DATE OF EXAM: Feb 11 2023 2:00PM WOX [id number] - XR KNEE 4V AP/PA/LAT/MERCH MARIBEL / PROCEDURE REASON: multiple diagnoses * * * * Physician Interpretation * * * * EXAMINATION: XR KNEE 4V AP/PA/LAT/MERCH MARIBEL PATIENT/TECHNOLOGIST PROVIDED HISTORY: Bilateral diffuse knee pain x 5 days without injury CLINICAL INFORMATION: 67 years old Female with Acute pain of both knees TECHNIQUE: XR KNEE 4V AP/PA/LAT/MERCH MARIBEL Laterality: BILATERAL Number of different views (projections): 4 views of each knee COMPARISON: Radiographs 06/19/2022 RESULT: Joint spaces are maintained. Small bilateral joint effusions. No fracture. IMPRESSION IMPRESSION: No acute osseous abnormality. Small bilateral joint effusions. Coding Auditor: [facility] Transcribe Date/Time: Feb 11 2023 2:01P Dictated by : QUINTEN MORE DO This examination was interpreted and the report reviewed and electronically signed by: QUINTEN MORE DO on Feb 11 2023 2:03PM [facility] Radiology Study observation (narrative) [facility] XR Knee - bilateral 4 ViewsO rdered By: [facility] Provider on 02-11-2023 [facility] SURGICAL PATHOLOGYon 023 Case Report Surgical Pathology R eport Case: [id number] Authorizing Provider: Hugh Cole MD Collected: 01/22/2023 01:15 PM Ordering Location: Ambulatory Surgery Received: 01/22/2023 03:01 PM Pathologist: Stacey Hunt MD Specimen: SIGMOID COLON BIOPSY [facility] FINAL DIAGNOSIS Sigmoid colon polyp, biopsy: - Hyperplastic polyp. [facility] Gross Description A. SIGMOID COLON BIO PSY Received in formalin are two pieces of hernandez-brown, soft tissue aggregating to 0.7 x 0.2 x 0.2 cm. Totally submitted in one cassette. Gross examination performed at [facility], [address] [place] [address] [place] [address] KK January 23, 2023 1:24 AM [facility] Performing Lab Diagnostic interpret ation performed at [facility], [address] [id number] CLIA# [id number] Software Developer Intern: Syed Gomes M.D. [facility] COLONOSCOPY SCREENINGon 10-0 [facility] CBC W Auto Differential pane l (Bld)on 12-24-2022 Basophils (Bld) [#/Vol] 0.07 10*3/uL <0.11 k/uL [facility] Basophils/100 WBC (Bld) 1.4 % [facility] Differential cell count method Nom (Bld) Auto [facility] Eosinophils (Bld) [#/Vol] 0.09 10*3/uL <0.46 k/uL [facility] Eosinophils/100 WBC (Bld) 1.8 % [facility] Erythrocyte distribution width (RBC) [Ratio] 12.0 % 11.5 - 15.0 % [facility] Hematocrit (Bld) [Volume fraction] 38.4 % 36.0 - 46.0 % [facility] Hemoglobin (Bld) [Mass/Vol] 12.9 g/dL 11.5 - 15.5 g/dL [facility] Immature granulocytes (Bld) [#/Vol] <0.10 k/uL [facility] Immature granulocytes/100 WBC (Bld) 0.2 % [facility] Lymphocytes (Bld) [#/Vol] 1.42 10*3/uL 1.00 - 4.00 k/uL [facility] Lymphocytes/100 WBC (Bld) 27.8 % [facility] MCH (RBC) [Entitic mass] 31.2 pg 26.0 - 34.0 pg [facility] MCHC (RBC) [Mass/Vol] 33.6 g/dL 30.5 - 36.0 g/dL [facility] MCV (RBC) [Entitic vol] 93.0 fL 80.0 - 100.0 fL [facility] Monocytes (Bld) [#/Vol] 0.49 10*3/uL <0.87 k/uL [facility] Monocytes/100 WBC (Bld) 9.6 % [facility] Neutrophils (Bld) [#/Vol] 3.03 10*3/uL 1.45 - 7.50 k/uL [facility] Neutrophils/100 WBC (Bld) 59.2 % [facility] Nucleated RBC (Bld) [#/Vol] <0.01 k/uL [facility] Nucleated RBC/100 WBC (Bld) [Ratio] 0.0 /100 WBC [facility] Platelet mean volume (Bld) [Entitic vol] 11.2 fL 9.0 - 12.7 fL [facility] Platelets (Bld) [#/Vol] 190 10*3/uL 150 - 400 k/uL [facility] RBC (Bld) [#/Vol] 4.13 10*6/uL 3.90 - 5.20 m/uL [facility] WBC (Bld) [#/Vol] 5.11 10*3/uL 3.70 - 11.00 k/uL [facility] HbA1c (Bld)on 12-24-2022 Average glucose Estimated from glycated hemoglobin (Bld) [Mass/Vol] 100 mg/dL [facility] HbA1c (Bld) [Mass fraction] 5.1 % 4.3 - 5.6 % [facility] XR Lumbar spine 3 Viewson IMPRESSION: MILD DEGENERATIVE CHANGE AND SCOLIOSIS Coding Auditor: [facility] Transcribe Date/Time: Jul 17 2022 11:05A Dictated by : SOUMYA RUVALCABA MD This examination was interpreted and the report reviewed and electronically signed by: SOUMYA RUVALCABA MD on Jul 17 2022 11:08AM [facility] DIVISION OF RADIOLOGY * * *Final Report* * * DATE OF EXAM: Jul 14 2022 3:02PM WOX 5228 - XR LUMBAR 3V AP/LAT/L5-S1 / PROCEDURE REASON: Fall (on) (from) unspecified stairs and steps, subsequent encounter * * * * Physician Interpretation * * * * Examination: XR LUMBAR 3V AP/LAT/L5-S1 History: Fall (on) (from) unspecified stairs and steps, subsequent encounter Technique: XR LUMBAR 3V AP/LAT/L5-S1 Comparison: 05/16/2022 RESULT: 5 nonrib-bearing lumbar type vertebrae. For numbering purposes, L4-5 is at the level of the iliac crest. Mild degenerative change involving the posterior elements from L3 through S1. Mild disc space narrowing from L1 through S1. Dextroscoliosis of 12 degrees as measured from inferior L1 to inferior L4 DIVISION OF RADIOLOGY Provider, [facility] [place] - 07/17/2022 * * *Final Report* * * DATE OF EXAM: Jul 14 2022 3:02PM WOX 5228 - XR LUMBAR 3V AP/LAT/L5-S1 / PROCEDURE REASON: Fall (on) (from) unspecified stairs and steps, subsequent encounter * * * * Physician Interpretation * * * * Examination: XR LUMBAR 3V AP/LAT/L5-S1 History: Fall (on) (from) unspecified stairs and steps, subsequent encounter Technique: XR LUMBAR 3V AP/LAT/L5-S1 Comparison: 05/16/2022 RESULT: 5 nonrib-bearing lumbar type vertebrae. For numbering purposes, L4-5 is at the level of the iliac crest. Mild degenerative change involving the posterior elements from L3 through S1. Mild disc space narrowing from L1 through S1. Dextroscoliosis of 12 degrees as measured from inferior L1 to inferior L4 IMPRESSION IMPRESSION: MILD DEGENERATIVE CHANGE AND SCOLIOSIS Coding Auditor: [facility] Transcribe Date/Time: Jul 17 2022 11:05A Dictated by : SOUMYA RUVALCABA MD This examination was interpreted and the report reviewed and electronically signed by: SOUMYA RUVALCABA MD on Jul 17 2022 11:08AM EST [facility] XR Lumbar spine 3 ViewsOrder ed By: Ccf Provider on 07-17-2022 [facility] XR Lumbar spine 3 Viewson Radiology Study observation (narrative) [facility] XR Shoulder - right 3 Viewso n 07-03-2022 IMPRESSION: Question able subluxation of the acromioclavicular joint, with mild degenerative changes. Coding Auditor: [facility] Transcribe Date/Time: Jul 03 2022 8:36A Dictated by : TOYA DEL VALLE MD This examination was interpreted and the report reviewed and electronically signed by: TOYA DEL VALLE MD on Jul 03 2022 8:39AM EST DIVISION OF RADIOLOGY * * *Final Report* * * DATE OF EXAM: Jul 01 2022 4:04PM WOX 5253 - XR SHLDR >/=3V AP/NE AP/OTHR RT / PROCEDURE REASON: Acute pain of right shoulder * * * * Physician Interpretation * * * * EXAM TITLE: XR SHLDR >/=3V AP/NE AP/OTHR RT EXAM DATE/TIME: 07/01/2022 4:04 PM COMPARISON: None. CLINICAL INDICATION/HISTORY: Acute shoulder pain. TECHNIQUE: AP, true AP and Y views of the right shoulder are presented FINDINGS: No acute fractures demonstrated. There is questionable subluxation of the acromioclavicular joint, with mild degenerative changes. Normal appearance of the glenohumeral joint. The acromiohumeral interval is maintained. The mineralization of the bones is normal. There is no significant soft tissue swelling. Others: There are degenerative changes from cervical spinal fusion. DIVISION OF RADIOLOGY Provider, [facility] - 07/03/2022 * * *Final Report* * * DATE OF EXAM: Jul 01 2022 4:04PM WOX 5253 - XR SHLDR >/=3V AP/NE AP/OTHR RT / PROCEDURE REASON: Acute pain of right shoulder * * * * Physician Interpretation * * * * EXAM TITLE: XR SHLDR >/=3V AP/NE AP/OTHR RT EXAM DATE/TIME: 07/01/2022 4:04 PM COMPARISON: None. CLINICAL INDICATION/HISTORY: Acute shoulder pain. TECHNIQUE: AP, true AP and Y views of the right shoulder are presented FINDINGS: No acute fractures demonstrated. There is questionable subluxation of the acromioclavicular joint, with mild degenerative changes. Normal appearance of the glenohumeral joint. The acromiohumeral interval is maintained. The mineralization of the bones is normal. There is no significant soft tissue swelling. Others: There are degenerative changes from cervical spinal fusion. IMPRESSION IMPRESSION: Questionable subluxation of the acromioclavicular joint, with mild degenerative changes. Coding Auditor: [facility] Transcribe Date/Time: Jul 03 2022 8:36A Dictated by : TOYA DEL VALLE MD This examination was interpreted and the report reviewed and electronically signed by: TOYA DEL VALLE MD on Jul 03 2022 8:39AM EST [facility] XR Shoulder - right 3 ViewsO rdered By: Ccf Provider on 07-03-2022 [facility] XR Shoulder - right 3 Viewso n 07-01-2022 Radiology Study observation (narrative) [facility] Absolute lymphocyte countOrd ered By: Chanel Mcconnell on 06-29-2022 Lymphocytes Auto (Unsp spec) [#/Vol] 1.28 10*3/uL 0.83-4.51 [facility] Basophil percentageOrdered B y: Chanel Mcconnell on 06-29-2022 Basophils/100 WBC (Bld) 1.0 % 0-1 [facility] Chloride [Moles/Vol] 107 mmol/L 98-107 [facility] Eosinophils/100 WBC (Bld) 0.9 % 0-5 [facility] Glucose [Mass/Vol] 104 mg/dL 74-106 [facility] Comment on above: Fasting Glucose resu lt from 100 to 125 mg/dL suggests IMPAIRED HOMEOSTASIS per A.D.A. criteria. Neutrophils (Bld) [#/Vol] 5.9 10*3/uL 2.0-7.7 [facility] Neutrophils/100 WBC (Bld) 75.1 % 47-70 [facility] Potassium [Moles/Vol] 3.7 mmol/L 3.5-5.1 [facility] Sodium [Moles/Vol] 145 mmol/L 136-145 [facility] WBC (Bld) [#/Vol] 7.9 10*3/uL 4.4-11.0 [facility] Blood erythrocytes count (nu mber/volume)Ordered By: Chanel Mcconnell on 06-29-2022 RBC (Bld) [#/Vol] 4.13 10*6/uL 4.2-5.4 [facility] Blood hemoglobin measurement (mass/volume)Ordered By: Chanel Mcconnell on 06-29-2022 Hemoglobin (Bld) [Mass/Vol] 13.0 g/dL 12.0-15.0 [facility] Blood lymphocytes/100 leukoc ytesOrdered By: Chanel Mcconnell on 06-29-2022 Lymphocytes/100 WBC (Bld) 16.2 % 19-41 [facility] Blood monocytes/100 leukocyt esOrdered By: Chanel Mcconnell on 06-29-2022 Monocytes/100 WBC (Bld) 5.9 % 0-10 [facility] Blood platelet mean volumeOr dered By: Chanel Mcconnell on 06-29-2022 Platelet mean volume (Bld) [Entitic vol] 10.0 fL 6.2-12.0 [facility] Determination of erythrocyte mean corpuscular volume (MCV)Ordered By: Chanel Mcconnell on 06-29-2022 MCV (RBC) [Entitic vol] 92.7 fL 81-99 [facility] Hematocrit Auto (Bld) [Volum e fraction]Ordered By: Chanel Mcconnell on 06-29-2022 Hematocrit (Bld) [Volume fraction] 38.3 % 37-47 [facility] Laboratory - Chemistry and C hemistry - challengeOrdered By: Chanel Mcconnell on 06-29-2022 CO2 [Moles/Vol] 30.0 mmol/L 21.0-32.0 [facility] Urea nitrogen/Creatinine [Mass ratio] 12.6 mg/mg 10-20 [facility] Laboratory - Hematology and Cell countsOrdered By: Chanel Mcconnell on 06-29-2022 Erythrocyte distribution width (RBC) [Entitic vol] 41.6 fL 35.1-43.9 [facility] Erythrocyte distribution width (RBC) [Ratio] 12.2 % 11.6-14.6 [facility] Immature granulocytes/100 WBC (Bld) 0.900 % 0.0-0.9 [facility] Comment on above: IG% - Immature Granu locytes (promyelocytes, myelocytes and metamyelocytes) > 1% indicates that a LEFT SHIFT is Present. MCH (RBC) [Entitic mass] 31.5 pg 27.0-32.0 [facility] Nucleated RBC/100 WBC (Bld) [Ratio] 0 % 0-5 [facility] MCHC Auto (RBC) [Mass/Vol]Or dered By: Chanel Mcconnell on 06-29-2022 MCHC (RBC) [Mass/Vol] 33.9 g/dL 32-36 [facility] No Panel InformationOrdered By: Chanel Mcconnell on 06-29-2022 Estimated Creatinine Clearance Calc 46.69 ml/min [facility] Estimated GFR (MDRD) Amer 75 mL/min >60 [facility] Comment on above: GFR Calc Estimated GFR (MDRD) Non-Af Amer 62 mL/min >60 [facility] [place] Comment on above: Non- GFR Calc Platelets bldOrdered By: Zack yaozohreh Jayesh on 06-29-2022 Platelets (Bld) [#/Vol] 231 10*3/uL 150-450 [facility] [place] Serum or plasma calcium perez urement (mass/volume)Ordered By: Chanel Mcconnell on 06-29-2022 Calcium [Mass/Vol] 8.9 mg/dL 8.5-10.1 [facility] Serum or plasma creatinine m easurement (mass/volume)Ordered By: Chanel Mcconnell on 06-29-2022 Creatinine [Mass/Vol] 0.95 mg/dL 0.55-1.02 [facility] [place] Comment on above: The validity of the calculated GFR & GFRAA in patients over 70 years has not been determined. Clinical correlation is essential. Serum or plasma urea nitroge n measurement (mass/volume)Ordered By: Chanel Mcconnell on 06-29-2022 Urea nitrogen [Mass/Vol] 12 mg/dL 7-18 [facility] [place] Thin prep Papanicolaou smear with manual screeningOrdered By: Chanel Mcconnell on 06-29-2022 Thin prep Papanicolaou smear with manual screening 8 5-15 [facility] [place] XR Knee - bilateral 4 Viewso n 06-23-2022 IMPRESSION: Mild degenerative changes Coding Auditor: SAM Transcribe Date/Time: Jun 23 2022 5:54A Dictated by : MORE CLEARY MD This examination was interpreted and the report reviewed and electronically signed by: MORE CLEARY MD on Jun 23 2022 5:56AM [facility] DIVISION OF RADIOLOGY * * *Final Report* * * DATE OF EXAM: Jun 19 2022 1:20PM WOX [id number] - XR KNEE 4V AP/PA/LAT/MERCH MARIBEL / PROCEDURE REASON: Positive ESTELLA (antinuclear antibody) * * * * Physician Interpretation * * * * TITLE: XR KNEE 4V AP/PA/LAT/MERCH MARIBLE CLINICAL INDICATION: Positive antinuclear antibody TECHNIQUE: 4 view radiographic study of the bilateral knees COMPARISON: FINDINGS: Right knee: Trace fluid in the right suprapatellar joint space. No acute fracture or dislocation. Minimal medial compartmental joint space narrowing. Sharpening of the tibial spines. Miniscule lateral compartmental osteophyte production. No osseous erosion. Left knee: Trace fluid in the left suprapatellar joint space. No acute fracture or dislocation. Minimal medial compartmental joint space narrowing. Sharpening of the tibial spines. Miniscule lateral compartmental osteophyte production. No osseous erosion. DIVISION OF RADIOLOGY Provider, Meliza Brittney Mendez - 06/23/2022 * * *Final Report* * * DATE OF EXAM: Jun 19 2022 1:20PM WOX 5618 - XR KNEE 4V AP/PA/LAT/MERCH MARIBEL / PROCEDURE REASON: Positive ESTELLA (antinuclear antibody) * * * * Physician Interpretation * * * * TITLE: XR KNEE 4V AP/PA/LAT/MERCH MARIBEL CLINICAL INDICATION: Positive antinuclear antibody TECHNIQUE: 4 view radiographic study of the bilateral knees COMPARISON: FINDINGS: Right knee: Trace fluid in the right suprapatellar joint space. No acute fracture or dislocation. Minimal medial compartmental joint space narrowing. Sharpening of the tibial spines. Miniscule lateral compartmental osteophyte production. No osseous erosion. Left knee: Trace fluid in the left suprapatellar joint space. No acute fracture or dislocation. Minimal medial compartmental joint space narrowing. Sharpening of the tibial spines. Miniscule lateral compartmental osteophyte production. No osseous erosion. IMPRESSION IMPRESSION: Mild degenerative changes Coding Auditor: SAM Transcribe Date/Time: Jun 23 2022 5:54A Dictated by : MORE CLEARY MD This examination was interpreted and the report reviewed and electronically signed by: MORE CLEARY MD on Jun 23 2022 5:56AM EST [facility] XR Knee - bilateral 4 ViewsO rdered By: [facility] Provider on 06-23-2022 [facility] No Panel Informationon 06-19 Radiology Study observation (narrative) [facility] XR Pelvis and Hip - left AP and Lateral frogon 06-19-2022 IMPRESSION: No acute pathology. Coding Auditor: SAM Transcribe Date/Time: Jun 19 2022 4:22P Dictated by : KAY CONNORS DO This examination was interpreted and the report reviewed and electronically signed by: KAY CONNORS DO on Jun 19 2022 4:22PM [facility] DIVISION OF RADIOLOGY * * *Final Report* * * DATE OF EXAM: Jun 19 2022 1:20PM WOX 5351 - XR HIP 3V PELV+ AP/LAT LT / PROCEDURE REASON: Positive ESTELLA (antinuclear antibody) * * * * Physician Interpretation * * * * Pelvis and left hip HISTORY: Indication: Positive ESTELLA (antinuclear antibody) TECHNIQUE: Images: XR HIP 3V PELV+ AP/LAT LT Comparison: None. RESULT: Findings: Pelvis: No fractures or dislocations are seen. Left hip: No fractures or dislocations are seen. DIVISION OF RADIOLOGY Provider, Meliza Brittney [place] - 06/19/2022 * * *Final Report* * * DATE OF EXAM: Jun 19 2022 1:20PM WOX 5351 - XR HIP 3V PELV+ AP/LAT LT / PROCEDURE REASON: Positive ESTELLA (antinuclear antibody) * * * * Physician Interpretation * * * * Pelvis and left hip HISTORY: Indication: Positive ESTELLA (antinuclear antibody) TECHNIQUE: Images: XR HIP 3V PELV+ AP/LAT LT Comparison: None. RESULT: Findings: Pelvis: No fractures or dislocations are seen. Left hip: No fractures or dislocations are seen. IMPRESSION IMPRESSION: No acute pathology. Coding Auditor: SAM Transcribe Date/Time: Jun 19 2022 4:22P Dictated by : KAY CONNORS DO This examination was interpreted and the report reviewed and electronically signed by: KAY CONNORS DO on Jun 19 2022 4:22PM EST [facility] CT PELVIS WO IVCONon 023 [facility] XR Lumbar spine 3 ViewsOrder ed By: [facility] Provider on 05-18-2022 Interpretation and review of laboratory results Abnormal [facility] Radiology Result ACTIONABLE [facility] Comment on above: This report contains an incidental or actionable finding. This finding may be a new finding separate from the reason your provider ordered the imaging test or it may be an already known finding that needs additional or continued follow-up. Because of this incidental or actionable finding, you may need another test (imaging or a different type of test). Please contact your provider for the next steps. [facility] XR Lumbar spine 3 Viewson IMPRESSION: Suggestion of a large area of lucency in the sacrum. This is suspicious for a lytic lesion. Recommendation: CT pelvis with attention to the sacrum recommended ACTIONABLE RESULT: FOLLOW-UP Acuity: Actionable Findings: Musculoskeletal/Rheumatolog ic System Routing Code: MSK_1 Recommendation: Unlisted Recommendation (see report) Time Frame: At the discretion of the clinical team. COMMUNICATION: Results will be communicated with the ordering provider via [employer] staff message or phone message by Imaging Support Services within 2 business days of report finalization. ========= Algorithms for management of incidental imaging findings can be found on the [facility] Intranet Sharepoint site at: http://spo.cc.org/document [email or web address]/[email or web address] %20Incidental%20Findi ngs%20at%20Imaging/Forms/Al lItems.aspx Coding Auditor: SAM Transcribe Date/Time: May 18 2022 8:35P Dictated by : KAY CONNORS DO This examination was interpreted and the report reviewed and electronically signed by: KAY CONNORS DO on May 18 2022 8:39PM [facility] DIVISION OF RADIOLOGY * * *Final Report* * * DATE OF EXAM: May 16 2022 12:27PM WOX 5228 - XR LUMBAR 3V AP/LAT/L5-S1 / PROCEDURE REASON: Lumbar back pain * * * * Physician Interpretation * * * * LUMBAR SPINE: EXAM DATE/TIME: 05/16/2022 12:27 PM HISTORY: 66 years old Indication: Lumbar back pain has had flare ups for many years and is having one now with pain in right posterior hip, did fall a week ago also. TECHNIQUE: Views obtained: XR LUMBAR 3V AP/LAT/L5-S1 Comparison: None. RESULT: Findings: Question of a large area of lucency in the sacrum. No narrowing of the disk spaces is seen. Moderate degenerative changes in the facet joints in the lower lumbar spine. There is mild S-shaped scoliosis with convexity to the RIGHT in the lumbar region. No fractures or dislocations are seen. DIVISION OF RADIOLOGY Provider, [facility] - 05/18/2022 * * *Final Report* * * DATE OF EXAM: May 16 2022 12:27PM WOX 5228 - XR LUMBAR 3V AP/LAT/L5-S1 / PROCEDURE REASON: Lumbar back pain * * * * Physician Interpretation * * * * LUMBAR SPINE: EXAM DATE/TIME: 05/16/2022 12:27 PM HISTORY: 66 years old Indication: Lumbar back pain has had flare ups for many years and is having one now with pain in right posterior hip, did fall a week ago also. TECHNIQUE: Views obtained: XR LUMBAR 3V AP/LAT/L5-S1 Comparison: None. RESULT: Findings: Question of a large area of lucency in the sacrum. No narrowing of the disk spaces is seen. Moderate degenerative changes in the facet joints in the lower lumbar spine. There is mild S-shaped scoliosis with convexity to the RIGHT in the lumbar region. No fractures or dislocations are seen. IMPRESSION IMPRESSION: Suggestion of a large area of lucency in the sacrum. This is suspicious for a lytic lesion. Recommendation: CT pelvis with attention to the sacrum recommended ACTIONABLE RESULT: FOLLOW-UP Acuity: Actionable Findings: Musculoskeletal/Rheumatolog ic System Routing Code: MSK_1 Recommendation: Unlisted Recommendation (see report) Time Frame: At the discretion of the clinical team. COMMUNICATION: Results will be communicated with the ordering provider via [employer] staff message or phone message by Imaging Support Services within 2 business days of report finalization. ========= Algorithms for management of incidental imaging findings can be found on the [facility] Intranet Sharepoint site at: http://spo.[facility].org/document ation/[email or web address] %20Incidental%20Findi ngs%20at%20Imaging/Forms/Al lItems.aspx Coding Auditor: SAM Transcribe Date/Time: May 18 2022 8:35P Dictated by : KAY CONNORS DO This examination was interpreted and the report reviewed and electronically signed by: KAY CONNORS DO on May 18 2022 8:39PM [facility] XR Lumbar spine 3 Viewson Radiology Study observation (narrative) [facility] CBC W Auto Differential pane l (Bld)on 01-27-2022 Abs Immature Gran <0.10 k/uL [facility] Basophils (Bld) [#/Vol] 0.07 10*3/uL <0.11 k/uL [facility] Basophils/100 WBC (Bld) 1.3 % [facility] Differential cell count method Nom (Bld) Auto [facility] Eosinophils (Bld) [#/Vol] 0.11 10*3/uL <0.46 k/uL [facility] Eosinophils/100 WBC (Bld) 2.1 % [facility] Erythrocyte distribution width (RBC) [Ratio] 12.3 % 11.5 - 15.0 % [facility] Hematocrit (Bld) [Volume fraction] 38.9 % 36.0 - 46.0 % [facility] Hemoglobin (Bld) [Mass/Vol] 12.8 g/dL 11.5 - 15.5 g/dL [facility] Immature Gran % 0.2 % [facility] Lymphocytes (Bld) [#/Vol] 1.45 10*3/uL 1.00 - 4.00 k/uL [facility] Lymphocytes/100 WBC (Bld) 27.3 % [facility] MCH (RBC) [Entitic mass] 30.8 pg 26.0 - 34.0 pg [facility] MCHC (RBC) [Mass/Vol] 32.9 g/dL 30.5 - 36.0 g/dL [facility] MCV (RBC) [Entitic vol] 93.7 fL 80.0 - 100.0 fL [facility] Monocytes (Bld) [#/Vol] 0.43 10*3/uL <0.87 k/uL [facility] Monocytes/100 WBC (Bld) 8.1 % [facility] Neutrophils (Bld) [#/Vol] 3.24 10*3/uL 1.45 - 7.50 k/uL [facility] Neutrophils/100 WBC (Bld) 61.0 % [facility] Nucleated RBC (Bld) [#/Vol] <0.01 k/uL [facility] Nucleated RBC/100 WBC (Bld) [Ratio] 0.0 /100 WBC [facility] Platelet mean volume (Bld) [Entitic vol] 11.0 fL 9.0 - 12.7 fL [facility] Platelets (Bld) [#/Vol] 196 10*3/uL 150 - 400 k/uL [facility] RBC (Bld) [#/Vol] 4.15 10*6/uL 3.90 - 5.20 m/uL [facility] WBC (Bld) [#/Vol] 5.31 10*3/uL 3.70 - 11.00 k/uL [facility] Comprehensive metabolic 2000 panelon 01-27-2022 Albumin [Mass/Vol] 4.7 g/dL 3.9 - 4.9 g/dL [facility] ALP [Catalytic activity/Vol] 68 U/L 34 - 123 U/L [facility] ALT [Catalytic activity/Vol] 23 U/L 7 - 38 U/L [facility] Anion gap [Moles/Vol] 11 mmol/L 9 - 18 mmol/L [facility] AST [Catalytic activity/Vol] 22 U/L 13 - 35 U/L [facility] Bilirubin [Mass/Vol] 0.4 mg/dL 0.2 - 1.3 mg/dL [facility] Calcium [Mass/Vol] 9.4 mg/dL 8.5 - 10. 2 mg/dL [facility] Chloride [Moles/Vol] 103 mmol/L 97 - 105 mmol/L [facility] CO2 [Moles/Vol] 26 mmol/L 22 - 30 mmol/L [facility] Creatinine [Mass/Vol] 0.89 mg/dL 0.58 - 0.96 mg/dL [facility] Estimated Glomerular Filtration Rate 72 mL/min/1.73m >=60 mL/min/1.7 3m [facility] Glucose [Mass/Vol] 83 mg/dL 74 - 99 mg/dL [facility] Potassium [Moles/Vol] 4.3 mmol/L 3.7 - 5.1 mmol/L [facility] Protein [Mass/Vol] 7.0 g/dL 6.3 - 8.0 g/dL [facility] Sodium [Moles/Vol] 140 mmol/L 136 - 144 mmol/L [facility] Urea nitrogen [Mass/Vol] 11 mg/dL 7 - 21 mg/dL [facility] HbA1c (Bld)on 01-27-2022 Average glucose Estimated from glycated hemoglobin (Bld) [Mass/Vol] 103 mg/dL [facility] HbA1c (Bld) [Mass fraction] 5.2 % 4.3 - 5.6 % [facility] LIPID PANEL, NONFASTINGon Cholesterol [Mass/Vol] 249 mg/dL High <200 mg/dL [facility] HDL Cholesterol, Nonfasting 56 mg/dL >39 mg/dL [facility] LDL Cholesterol, Nonfasting 166 mg/dL High <100 mg/dL [facility] LDL/HDL Ratio, Nonfasting 2.96 mg/dL High <2.54 mg/dL [facility] Non HDL Cholesterol, Nonfasting 193 mg/dL High <130 mg/dL [facility] Total Chol/HDL Ratio, Nonfasting 4.45 mg/dL <5.10 mg/dL [facility] Triglycerides, Nonfasting 136 mg/dL <150 mg/dL [facility] VLDL Cholesterol, Nonfasting 27 mg/dL <30 mg/dL [facility] TSH BLDon 01-27-2022 TSH Qn 1.850 m[IU]/L 0.270 - 4.200 mIU/L [facility] Urinalysis complete panel (U )on 01-27-2022 Bilirubin Ql (U) Negative Negative [facility] Clarity (Unsp spec) Clear Clear [facility] Color (U) Straw Yellow [facility] Glucose Test strip (U) [Mass/Vol] Negative Negative [facility] Hemoglobin Ql (U) 1+ Abnormal Negative [facility] Ql (U) Negative Negative [facility] Leukocyte esterase Test strip Ql (U) Negative Negative [facility] Nitrite Ql (U) Negative Negative [facility] pH (U) 6.0 [pH] 5.0 - 8.0 [facility] Protein (U) [Mass/Vol] Negative Negative [facility] RBC LM.HPF (Urine sed) [#/Area] 0-3 /HPF 0-3 /HPF [facility] Specific gravity (U) [Rel density] 1.004 Low 1.005 - 1.030 [facility] Urobilinogen Ql (U) Negative Negative [facility] WBC LM.HPF (Urine sed) [#/Area] 0-5 /HPF 0-5 /HPF [facility] LEONORA SCREENINGon 01-15-2022 LEONORA SCREENING * * *Final Report* * * DATE OF EXAM: Jan 15 2022 3:23PM RAY [id number] - LEONORA SCREENING / PROCEDURE REASON: Z12.31-Encounter for screening mammogram for breast cancer * * * * Physician Interpretation * * * * #[id number] - [facility] SCREENING BILATERAL DIGITAL SCREENING MAMMOGRAM WITH CAD: 01/15/2022 HISTORY: Z12.31-Encounter For Screening Mammogram For Breast Cancer /Screening Mammogram-Patient reports NO symptoms. / Patient signed film release to obtain prior imaging from outside facility. RESULT: TECHNIQUE: The study was acquired using full field digital technology and interpreted from soft copy. Current study was also evaluated with a Computer Aided Detection (CAD). No prior exams were available for comparison. The tissue of both breasts is heterogeneously dense. This may lower the sensitivity of mammography. No significant masses, calcifications, or other findings are seen in either breast. IMPRESSION: NEGATIVE There is no mammographic evidence of malignancy. A 1 year screening mammogram is recommended. Lilly shepherd/pepe:01/15/2022 15:29:44 Chute Greaser(s): Nadine Umanzor [facility] letter sent: Normal over 40 Mammogram BI-RADS: 1 Negative Multiple national specialty organizations have released breast cancer screening guidelines for women at average risk for developing breast cancer - guidelines that are based on both evidence and opinion, yet differ on when to start and how often to screen for breast cancer. With representation from Breast Imaging, Internal Medicine, Women's Health, Family Medicine, and Medical/Surgical Oncology, the [facility] has carefully reviewed the data and reached the following consensus: 1) All women should engage in shared decision-making with their providers to decide when to start and how often to screen; 2) All women should have the opportunity to start screening mammography at age 40; 3) For women ages 45-55, we recommend annual screening mammograms; 4) For women ages 55 and over, we support both the transition from an annual to a biennial interval if this aligns more with patient's values and preferences, or continuation with annual screening; 5) All women should discuss with their providers when to stop screening mammograms. Coding Auditor: Pepe Transcribe Date/Time: Jan 15 2022 3:08P Dictated by : LILLY STAFFORD MD This examination was interpreted and the report reviewed and electronically signed by: LILLY STAFFORD MD on Sep 28 2022 3:29PM EST [id number] Normal [facility] XR Hand - left PA and Latera l and Obliqueon 11-22-2021 IMPRESSION: Osteoarthrosis. No acute osseous abnormality identified. Coding Auditor: SAM Transcribe Date/Time: Nov 22 2021 4:25P Dictated by : PAWAN GARDINER MD This examination was interpreted and the report reviewed and electronically signed by: PAWAN GARDINER MD on Nov 22 2021 4:27PM EST [facility]_DO_NOT_USE _DIVISION OF RADIOLOGY * * *Final Report* * * DATE OF EXAM: Nov 21 2021 9:46AM WOX 5345 - XR HAND 3V PA/LAT/OBL LT / PROCEDURE REASON: multiple diagnoses * * * * Physician Interpretation * * * * Left hand radiograph HISTORY: 65 years old Clinical information: Left hand weakness Left hand pain No injury, Left hand pain through the middle, ring , and small finger as well as the bee metacarpal area x 2 weeks TECHNIQUE: Images: XR HAND 3V PA/LAT/OBL LT Comparison: None. RESULT: Findings: Narrowing of the scaphoid trapezial joint space. No fracture or dislocation identified. No soft tissue abnormality identified. [facility]_DO_NOT_USE _DIVISION OF RADIOLOGY Provider, [facility] - 11/22/2021 * * *Final Report* * * DATE OF EXAM: Nov 21 2021 9:46AM WOX 5345 - XR HAND 3V PA/LAT/OBL LT / PROCEDURE REASON: multiple diagnoses * * * * Physician Interpretation * * * * Left hand radiograph HISTORY: 65 years old Clinical information: Left hand weakness Left hand pain No injury, Left hand pain through the middle, ring , and small finger as well as the bee metacarpal area x 2 weeks TECHNIQUE: Images: XR HAND 3V PA/LAT/OBL LT Comparison: None. RESULT: Findings: Narrowing of the scaphoid trapezial joint space. No fracture or dislocation identified. No soft tissue abnormality identified. IMPRESSION IMPRESSION: Osteoarthrosis. No acute osseous abnormality identified. Coding Auditor: [facility] Transcribe Date/Time: Nov 22 2021 4:25P Dictated by : PAWAN GARDINER MD This examination was interpreted and the report reviewed and electronically signed by: PAWAN GARDINER MD on Nov 22 2021 4:27PM EST [facility] XR Hand - left PA and Latera l and ObliqueOrdered By: Ccf Provider on 11-22-2021 [facility] C-REACTIVE PROTEIN (CRP)on 0 11-21-2021 CRP [Mass/Vol] mg/L <0.9 mg/dL [facility] RHEUMATOID FACTOR BLon 11-21 Rheumatoid factor Qn [IU]/mL <16 IU/mL [facility] TSH BLDon 11-21-2021 TSH Qn 3.610 m[IU]/L 0.270 - 4.200 mIU/L [facility] XR Hand - left PA and Latera l and Obliqueon 11-21-2021 Radiology Study observation (narrative) [facility] XR Cervical spine AP and Lat eral and obliqueon 11-04-2021 IMPRESSION: Postoper ative and degenerative changes as detailed in report. Coding Auditor: SAM Transcribe Date/Time: Nov 04 2021 6:09P Dictated by : SIMRAN OZUNA MD This examination was interpreted and the report reviewed and electronically signed by: SIMRAN OZUNA MD on Nov 04 2021 6:12PM EST [facility]_DO_NOT_USE _DIVISION OF RADIOLOGY * * *Final Report* * * DATE OF EXAM: Nov 04 2021 5:35PM WOX 5311 - XR CERVICAL 4V AP/LAT/OBL / PROCEDURE REASON: multiple diagnoses * * * * Physician Interpretation * * * * EXAMINATION: XR CERVICAL 4V AP/LAT/OBL HISTORY: nerve pain going from left hand to left shoulder and neck. Hx of disc herniation and cervical fusion. Left arm pain. Left hand weakness. Numbness and tingling of left upper extremity. TECHNIQUE: XR CERVICAL 4V AP/LAT/OBL Laterality: NOT APPLICABLE Number of different views (projections): 4 M: XB_1 COMPARISON: There are no prior relevant examinations available for comparison within the [facility] Imaging Archives. RESULT: 4 views of the cervical spine demonstrate multilevel degenerative change with vertebral body osteophytosis and disc space narrowing at C7-T1 where there is mild 3 to 4 mm anterolisthesis of C7 on T1 with intact spinolaminal line. There are no vertebral body compression deformities and alignment is well maintained. Postsurgical changes of anterior cervical disc fusion with screw plate device transfixing C5-C7 with metallic interbody grafts at C5-6 and C6-7. Visualized surgical hardware is intact and there is no radiographic evidence for loosening or superimposed fracture. Bilateral obliques demonstrate mild to moderate foraminal narrowing at C2-C3, C4-5, C6-7 and C7-T1 on the left. Severe foraminal narrowing is noted at C3-4 on the right.. The atlantoaxial interval and craniocervical junction are intact. There is no prevertebral soft tissue abnormality. [facility]_DO_NOT_USE _DIVISION OF RADIOLOGY Provider, [facility] - 11/04/2021 * * *Final Report* * * DATE OF EXAM: Nov 04 2021 5:35PM WOX 5311 - XR CERVICAL 4V AP/LAT/OBL / PROCEDURE REASON: multiple diagnoses * * * * Physician Interpretation * * * * EXAMINATION: XR CERVICAL 4V AP/LAT/OBL HISTORY: nerve pain going from left hand to left shoulder and neck. Hx of disc herniation and cervical fusion. Left arm pain. Left hand weakness. Numbness and tingling of left upper extremity. TECHNIQUE: XR CERVICAL 4V AP/LAT/OBL Laterality: NOT APPLICABLE Number of different views (projections): 4 M: XB_1 COMPARISON: There are no prior relevant examinations available for comparison within the [facility] Imaging Archives. RESULT: 4 views of the cervical spine demonstrate multilevel degenerative change with vertebral body osteophytosis and disc space narrowing at C7-T1 where there is mild 3 to 4 mm anterolisthesis of C7 on T1 with intact spinolaminal line. There are no vertebral body compression deformities and alignment is well maintained. Postsurgical changes of anterior cervical disc fusion with screw plate device transfixing C5-C7 with metallic interbody grafts at C5-6 and C6-7. Visualized surgical hardware is intact and there is no radiographic evidence for loosening or superimposed fracture. Bilateral obliques demonstrate mild to moderate foraminal narrowing at C2-C3, C4-5, C6-7 and C7-T1 on the left. Severe foraminal narrowing is noted at C3-4 on the right.. The atlantoaxial interval and craniocervical junction are intact. There is no prevertebral soft tissue abnormality. IMPRESSION IMPRESSION: Postoperative and degenerative changes as detailed in report. Coding Auditor: PSCB Transcribe Date/Time: Nov 04 2021 6:09P Dictated by : SIMRAN OZUNA MD This examination was interpreted and the report reviewed and electronically signed by: SIMRAN OZUNA MD on Nov 04 2021 6:12PM EST [facility] Radiology Study observation (narrative) [facility] XR Cervical spine AP and Lat eral and obliqueOrdered By: Ccf Provider on 11-04-2021 [facility] Absolute lymphocyte counton 10-12-2021 Lymphocytes Auto (Unsp spec) [#/Vol] 0.46 10*3/uL 0.83-4.51 [facility] [place] Work Phone: Basophil percentageon 2021 Basophils/100 WBC (Bld) 0.4 % 0-1 [facility] Work Phone: Bilirubin [Mass/Vol] 0.30 mg/dL 0.20-1.00 [facility] Work Phone: Comment on above: For patients on eltr ombopag therapy, use of Dimension [place] TBIL is not recommended. Chloride [Moles/Vol] 101 mmol/L 98-107 [facility] [place] Work Phone: Eosinophils/100 WBC (Bld) 0.0 % 0-5 [facility] Work Phone: Glucose [Mass/Vol] 115 mg/dL 74-106 [facility] Work Phone: Comment on above: Fasting Glucose resu lt from 100 to 125 mg/dL suggests IMPAIRED HOMEOSTASIS per A.D.A. criteria. Neutrophils (Bld) [#/Vol] 3.7 10*3/uL 2.0-7.7 [facility] [place] Work Phone: Neutrophils/100 WBC (Bld) 76.7 % 47-70 [facility] [place] Work Phone: Potassium [Moles/Vol] 3.6 mmol/L 3.5-5.1 [facility] [place] Work Phone: Comment on above: Slight Hemolysis, Re sult may be falsely increased. Protein [Mass/Vol] 7.4 g/dL 6.4-8.2 [facility] Work Phone: Sodium [Moles/Vol] 134 mmol/L 136-145 [facility] Work Phone: WBC (Bld) [#/Vol] 4.9 10*3/uL 4.4-11.0 [facility] Work Phone: Blood erythrocytes count (nu mber/volume)on 10-12-2021 RBC (Bld) [#/Vol] 4.28 10*6/uL 4.2-5.4 [facility] Work Phone: Blood hemoglobin measurement (mass/volume)on 10-12-2021 Hemoglobin (Bld) [Mass/Vol] 13.5 g/dL 12.0-15.0 [facility] [place] Work Phone: Blood lymphocytes/100 leukoc yteson 10-12-2021 Lymphocytes/100 WBC (Bld) 9.5 % 19-41 [facility] [place] Work Phone: Blood manual differential co mment interpretation (narrative result)on 10-12-2021 Manual differential comment Sergio (Bld) [Interp] SCANNED [facility] Work Phone: Comment on above: LYMPHOPENIA NOTED Blood monocytes/100 leukocyt eson 10-12-2021 Monocytes/100 WBC (Bld) 12.8 % 0-10 [facility] [place] Work Phone: Blood platelet mean volumeon 10-12-2021 Platelet mean volume (Bld) [Entitic vol] 10.7 fL 6.2-12.0 [facility] [place] Work Phone: Determination of erythrocyte mean corpuscular volume (MCV)on 10-12-2021 MCV (RBC) [Entitic vol] 93.0 fL 81-99 [facility] [place] Work Phone: Direct bilirubinon Bilirubin.direct [Mass/Vol] 0.14 mg/dL 0.00-0.30 [facility] [place] Work Phone: Hematocrit Auto (Bld) [Volum e fraction]on 10-12-2021 Hematocrit (Bld) [Volume fraction] 39.8 % 37-47 [facility] [place] Work Phone: Laboratory - Chemistry and C hemistry - challengeon 10-12-2021 ALP [Catalytic activity/Vol] 74 U/L 45-117 [facility] [place] Work Phone: ALT [Catalytic activity/Vol] 26 U/L 13-56 [facility] [place] Work Phone: CO2 [Moles/Vol] 24.0 mmol/L 21.0-32.0 [facility] [place] Work Phone: Globulin (S) [Mass/Vol] 3.4 g/dL 2.2-4.2 [facility] [place] Work Phone: Urea nitrogen/Creatinine [Mass ratio] 12.3 mg/mg 10-20 [facility] [place] Work Phone: Laboratory - Hematology and Cell countson 10-12-2021 Erythrocyte distribution width (RBC) [Entitic vol] 41.5 fL 35.1-43.9 [facility] [place] Work Phone: Erythrocyte distribution width (RBC) [Ratio] 12.1 % 11.6-14.6 [facility] [place] Work Phone: Immature granulocytes/100 WBC (Bld) 0.600 % 0.0-0.9 [facility] [place] Work Phone: Comment on above: IG% - Immature Granu locytes (promyelocytes, myelocytes and metamyelocytes) > 1% indicates that a LEFT SHIFT is Present. MCH (RBC) [Entitic mass] 31.5 pg 27.0-32.0 [facility] [place] Work Phone: Nucleated RBC/100 WBC (Bld) [Ratio] 0 % 0-5 [facility] [place] Work Phone: MCHC Auto (RBC) [Mass/Vol]on 10-12-2021 MCHC (RBC) [Mass/Vol] 33.9 g/dL 32-36 [facility] [place] Work Phone: No Panel Informationon 10-12 Estimated Creatinine Clearance Calc 54.82 ml/min [facility] [place] Work Phone: Estimated GFR (MDRD) Amer 91 mL/min >60 [facility] [place] Work Phone: Comment on above: GFR Calc Estimated GFR (MDRD) Non-Af Amer 75 mL/min >60 [facility] [place] Work Phone: Comment on above: Non- GFR Calc Platelets bldon 10-12-2021 Platelets (Bld) [#/Vol] 181 10*3/uL 150-450 [facility] [place] Work Phone: Serum or plasma albumin perez urement (mass/volume)on 10-12-2021 Albumin [Mass/Vol] 4.0 g/dL 3.2-5.0 [facility] Work Phone: Serum or plasma calcium perez urement (mass/volume)on 10-12-2021 Calcium [Mass/Vol] 8.3 mg/dL 8.5-10.1 [facility] Work Phone: Serum or plasma creatinine m easurement (mass/volume)on 10-12-2021 Creatinine [Mass/Vol] 0.82 mg/dL 0.55-1.02 [facility] Work Phone: Comment on above: The validity of the calculated GFR & GFRAA in patients over 70 years has not been determined. Clinical correlation is essential. Serum or plasma urea nitroge n measurement (mass/volume)on 10-12-2021 Urea nitrogen [Mass/Vol] 10 mg/dL 7-18 [facility] [place] Work Phone: Thin prep Papanicolaou smear with manual screeningon 10-12-2021 Thin prep Papanicolaou smear with manual screening 21 U/L 15-37 [facility] [place] Work Phone: Comment on above: Slight Hemolysis, Re sult may be falsely increased. Thin prep Papanicolaou smear with manual screening 9 5-15 [facility] [place] Work Phone: 2018 Novel Coronavirus (COVI D-19), EZEQUIEL (24034)Ordered By: Cord Tire Builder on 01-11-20212018 Novel Coronavirus (COVID-19), EZEQUIEL ([id number]) Not detected Normal [facility]; [facility] Work Phone: Comment on above: This nucleic acid am plification test was developed and its performancecharacteristics determined by [employer]. Nucleic acidamplification tests include RT-PCR and TMA. This test has not beenFDA cleared or approved. This test has been authorized by FDA underan Emergency Use Authorization (EUA). This test is only authorizedfor the duration of time the declaration that circumstances existjustifying the authorization of the emergency use of in vitrodiagnostic tests for detection of SARS-CoV-2 virus and/or diagnosisof COVID-19 infection under section 564(b)(1) of the Act, 21 U.S.C.360bbb-3(b) (1), unless the authorization is terminated or revokedsooner.When diagnostic testing is negative, the possibility of a falsenegative result should be considered in the context of a patient'srecent exposures and the presence of clinical signs and symptomsconsistent with COVID-19. An individual without symptoms of COVID-19and who is not shedding SARS-CoV-2 virus would expect to have anegative (not detected) result in this assay. PATIENT NOT FASTINGP ERFORMED BY: KAT Hemarina [id number] [facility] [id number] BY: DEBORAH [employer]6370 LearnBoostMartin General Hospital [id number] ESTELLA (ANTINUCLEAR ANTIBODY) ( [id number])Ordered By: Cord Tire Builder on 09-18-2020 Nuclear Ab Ql (S) Negative Normal Compreh ensive [facility]; [facility] Work Phone: Comment on above: PATIENT NOT FASTINGP ERFORMED BY: DEBORAH [employer]6370 Smart[facility] AnalyticsPsychiatric hospital [id number] C-REACTIVE PROTEIN (75959)Or dered By: Cord Tire Builder on 09-18-2020 CRP [Mass/Vol] mg/L Normal 0-10 Comprehens rusty [facility]; [facility] Work Phone: Comment on above: PATIENT NOT FASTINGP ERFORMED BY: DEBORAH Hemarina Ukxjeb4869 SmartZip Analyticsblin [place] [id number] CALCIFIDIOL (05364) VIT D 25 Ordered By: Cord Tire Builder on 09-18-2020 25-hydroxyvitamin D [Mass/Vol] 40.8 ng/mL Normal 30.0-100.0 [facility]; [facility] Work Phone: Comment on above: Vitamin D deficiency has been defined by the [place] and an Endocrine Society practice guideline as alevel of serum 25-OH vitamin D less than 20 ng/mL (1,2).The Endocrine Society went on to further define vitamin Dinsufficiency as a level between 21 and 29 ng/mL (2).1. IOM ([place] [employer]). 2010. Dietary reference intakes for calcium and D. [place]: The National Academies Press.2. Sofia MF, Reba NOONAN, Mindy HSIEH, et al. Evaluation, treatment, and prevention of vitamin D deficiency: an Endocrine Society clinical practice guideline. JCEM. 2010; 96(7):1911-30. PATIENT NOT FASTINGP ERFORMED BY: DEBORAH Hemarina Tkvihn4158 SmartZip Analyticsblin [place] [id number] CBC (AUTO) (80227)Ordered By : Cord Tire Builder on 09-18-2020 Erythrocyte distribution width (RBC) [Ratio] 12.9 % Normal 11.7-15.4 [facility]; [facility] Work Phone: Comment on above: PATIENT NOT FASTINGP ERFORMED BY: [employer] [facility] Fgypoj[address] SpartooDublin [place] [id number] Hematocrit (Bld) [Volume fraction] 36.6 % Normal 34.0-46.6 [facility]; [facility] Work Phone: Comment on above: PATIENT NOT FASTINGP ERFORMED BY: [facility] Kpusnl4[address] SpartooDublin [place] [id number] Hemoglobin (Bld) [Mass/Vol] 12.6 g/dL Normal 11.1-15.9 [facility]; [facility] Work Phone: Comment on above: PATIENT NOT FASTINGP ERFORMED BY: CB [facility] Xbjlby0873 [address] RoadDublin [place] [id number] MCH (RBC) [Entitic mass] 31.8 pg Normal 26.6-33.0 [facility]; [facility] Work Phone: Comment on above: PATIENT NOT FASTINGP ERFORMED BY: CB [facility] Lexoak2377 [address] RoadDublin [place] [id number] MCHC (RBC) [Mass/Vol] 34.4 g/dL Normal 31.5-35.7 [facility]; [facility] Work Phone: Comment on above: PATIENT NOT FASTINGP ERFORMED BY: CB [facility] Lmjcig5776 [address] RoadDublin [place] [id number] MCV (RBC) [Entitic vol] 92 fL Normal 79-97 [facility]; [facility] Work Phone: Comment on above: PATIENT NOT FASTINGP ERFORMED BY: CB [facility] Crlimr5137 [address] RoadDublin [place] [id number] Platelets (Bld) [#/Vol] 221 10*3/uL Normal 150-450 [facility]; [facility] Work Phone: Comment on above: PATIENT NOT FASTINGP ERFORMED BY: CB [facility] Nsokze1630 [address] RoadDublin [place] [id number] RBC (Bld) [#/Vol] 3.96 10*6/uL Normal 3.77-5.28 Compr ehensive [facility]; [facility] Work Phone: Comment on above: PATIENT NOT FASTINGP ERFORMED BY: CB [facility] Prfjia4364 [address] RoadDublin [place] [id number] WBC (Bld) [#/Vol] 5.3 10*3/uL Normal 3.4-10.8 Compre [facility]; [facility] Work Phone: Comment on above: PATIENT NOT FASTINGP ERFORMED BY: CB [facility] Edzegh7190 [address] RoadDublin [place] [id number] Folate ([id number])Ordered By: Sy stem Junior Net Developer on 09-18-2020 Folate [Mass/Vol] 11.7 ng/mL Normal Compreh ensive [facility]; [facility] Work Phone: Comment on above: A serum folate alma ntration of less than 3.1 ng/mL isconsidered to represent clinical deficiency. PATIENT NOT FASTINGP ERFORMED BY: CB [facility] Otfbjy9939 [address] RoadDublin [place] [id number] METABOLIC PANEL, COMPREHENSI VE ([id number])Ordered By: Cord Tire Builder on 09-18-2020 Albumin [Mass/Vol] 4.9 g/dL Abnormal 3.8-4.8 Compre [facility]; [facility] Work Phone: Comment on above: PATIENT NOT FASTINGP ERFORMED BY: CB [facility] Yclhtc4125 [address] RoadDublin [place] [id number] Albumin/Globulin [Mass ratio] 2.3 {ratio} Abnormal 1.2-2.2 [facility]; [facility] Work Phone: Comment on above: PATIENT NOT FASTINGP ERFORMED BY: CB [facility] Aqcaqk1244 [address] RoadDublin [place] [id number] ALP [Catalytic activity/Vol] 72 U/L Normal 48-121 [facility]; [facility] Work Phone: Comment on above: PATIENT NOT FASTINGP ERFORMED BY: CB [facility] Plsbpt1008 [address] RoadDublin [place] [id number] ALT [Catalytic activity/Vol] 17 U/L Normal 0-32 [facility]; [facility] Work Phone: Comment on above: PATIENT NOT FASTINGP ERFORMED BY: CB [facility] Ygtxbe7771 [address] RoadDublin [place] [id number] AST [Catalytic activity/Vol] 16 U/L Normal 0-40 [facility]; [facility] Work Phone: Comment on above: PATIENT NOT FASTINGP ERFORMED BY: CB [facility] Edrnrd0367 [address] RoadDublin [place] [id number] Bilirubin [Mass/Vol] 0.3 mg/dL Normal 0.0-1.2 [facility]; [facility] Work Phone: Comment on above: PATIENT NOT FASTINGP ERFORMED BY: [facility] Ohyfli1284 [address] RoadDublin [place] [id number] Calcium [Mass/Vol] 9.5 mg/dL Normal 8.7-10.3 [facility]; [facility] Work Phone: Comment on above: PATIENT NOT FASTINGP ERFORMED BY: CB [facility] Tyuqwn4001 [address] RoadDublin [place] [id number] Chloride [Moles/Vol] 104 mmol/L Normal 96-106 [facility]; [facility] Work Phone: Comment on above: PATIENT NOT FASTINGP ERFORMED BY: [facility] Izamqp4447 [address] RoadDublin [place] [id number] CO2 [Moles/Vol] 27 mmol/L Normal 20-29 [facility]; [facility] Work Phone: Comment on above: PATIENT NOT FASTINGP ERFORMED BY: [facility] Idcyte6738 [address] Roadblin [place] [id number] Creatinine [Mass/Vol] 1.08 mg/dL Abnormal 0.57-1.00 [facility]; [facility] Work Phone: Comment on above: PATIENT NOT FASTINGP ERFORMED BY: [facility] Awgqrk[address] [facility] Hospitalin [place] [id number] GFR/1.73 sq M.predicted among blacks CKD-EPI (S/P/Bld) [Vol rate/Area] 63 mL/min/1.73 Normal [facility]; [facility] Work Phone: Comment on above: [facility] e[facility] in compliance with the current recommendations of the National Kidney Foundation. [facility] will update reporting as new guidelines are published from the NKF-ASN Task force. PATIENT NOT FASTINGP ERFORMED BY: [facility] Lsjjuy1986 [address]Dublin [place] [id number] GFR/1.73 sq M.predicted among non-blacks CKD-EPI (S/P/Bld) [Vol rate/Area] 55 mL/min/1.73 Abnormal [facility]; [facility] Work Phone: Comment on above: PATIENT NOT FASTINGP ERFORMED BY: DEBORAH [facility] Ehrcon9611 [address] RoadDublin [place] [id number] Globulin (S) [Mass/Vol] 2.1 g/dL Normal 1.5-4.5 [facility]; [facility] Work Phone: Comment on above: PATIENT NOT FASTINGP ERFORMED BY: CB [facility] Onfaad6084 [address] RoadDublin [place] [id number] Glucose [Mass/Vol] 91 mg/dL Normal 65-99 [facility]; [facility] Work Phone: Comment on above: PATIENT NOT FASTINGP ERFORMED BY: DEBORAH LabCohaim Fsaert4028 [address] RoadDuin [place] [id number] Potassium [Moles/Vol] 4.8 mmol/L Normal 3.5-5.2 [facility]; [facility] Work Phone: Comment on above: PATIENT NOT FASTINGP ERFORMED BY: CB [facility] Lszprf8562 [address] RoadDublin [place] [id number] Protein [Mass/Vol] 7.0 g/dL Normal 6.0-8.5 [facility]; [facility] Work Phone: Comment on above: PATIENT NOT FASTINGP ERFORMED BY: CB [facility] Plsmaa5769 [address] RoadDublin [place] [id number] Sodium [Moles/Vol] 145 mmol/L Abnormal 134-144 [facility]; [facility] Work Phone: Comment on above: PATIENT NOT FASTINGP ERFORMED BY: CB [facility] Tzxdfo3640 [address] RoadDublin [place] [id number] Urea nitrogen [Mass/Vol] 13 mg/dL Normal 8-27 [facility]; [facility] Work Phone: Comment on above: PATIENT NOT FASTINGP ERFORMED BY: CB [facility] Upktoj[address] [facility] HospitalDublin [place] [id number] Urea nitrogen/Creatinine [Mass ratio] 12 mg/mg Normal 12-28 [facility]; [facility] Work Phone: Comment on above: PATIENT NOT FASTINGP ERFORMED BY: DEBORAH Johnrp Nbtzoz8538 [address] RoadDublin [place] [id number] RHEUMATOID FACTOR-QUANT (866 31)Ordered By: Cord Tire Builder on 09-18-2020 Rheumatoid factor Qn [IU]/mL Normal 0.0-13.9 [facility]; [facility] Work Phone: Comment on above: PATIENT NOT FASTINGP ERFORMED BY: DEBORAH [facility] Pbzwoz0052 [address] RoadDublin [place] [id number] VITAMIN B-12 (CYANOCOBALAMIN ) ([id number])Ordered By: Cord Tire Builder on 09-18-2020 Cobalamin (Vitamin B12) [Mass/Vol] 752 pg/mL Normal 232-1245 [facility]; [facility] Work Phone: Comment on above: PATIENT NOT FASTINGP ERFORMED BY: DEBORAH [facility] Fpwqej7193 [address] RoadDublin [place] [id number] LIPID PANEL ([id number])Ordered B y: Cord T[employer] Builder on 09-12-2020 Cholesterol [Mass/Vol] 242 mg/dL Abnormal 100-199 [facility]; [facility] Work Phone: Comment on above: August 2020; PATIENT WA S FASTINGPERFORMED BY: DEBORAH LabAtilio Rwjubb2789 [address] RoadDublin [place] [id number]; fu 6-1 [facility] Cholesterol in HDL [Mass/Vol] 58 mg/dL Normal [facility]; [facility] Work Phone: Comment on above: August 2020; PATIENT WA S FASTINGPERFORMED BY: DEBORAH [facility] Uybuut1387 [address] RoadDublin [place] [id number]; fu 6-1 [facility] Triglyceride [Mass/Vol] 115 mg/dL Normal 0-149 [facility]; [facility] Work Phone: Comment on above: August 2020; PATIENT WA S FASTINGPERFORMED BY: DEBORAH [facility] Ovuwxy0453 [address] RoadDublin [place] [id number]; fu 6-1 [facility] LIPID PANEL (54030) 20 mg/dL Normal 5-40 [facility]; [facility] Work Phone: Comment on above: August 2020; PATIENT HUMBERTO S FASTINGPERFORMED BY: CB [facility] Pyiocl5977 [address] RoadDublin [place] [id number]; fu 6-1 [facility] LIPID PANEL (75696) 164 mg/dL Abnormal 0-99 [facility]; [facility] Work Phone: Comment on above: August 2020; PATIENT HUMBERTO S FASTINGPERFORMED BY: DEBORAH [facility] Xffgul7690 [address] Roadblin [place] [id number]; fu 6-1 [facility] LIPID PANEL (94289) 2.8 {ratio} Normal 0.0-3.2 [facility]; [facility] Work Phone: Comment on above: LDL/HDL Ratio Men Wo men 1/2 Avg.Risk 1.0 1.5 Avg.Risk 3.6 3.2 2X Avg.Risk 6.2 5.0 3X Avg.Risk 8.0 6.18 Aug 2020; PATIENT HUMBERTO S FASTINGPERFORMED BY: DEBORAH [facility] Iwwhhl39[address] [facility] [id number]; fu 6-1 [facility] T3, FREE (TRIDOTHYRONINE) ([id number] 8637)Ordered By: Cord Tire Builder on 09-12-2020 Free T3 [Mass/Vol] 2.3 pg/mL Normal 2.0-4.4 [facility]; [facility] Work Phone: Comment on above: august 2020; PATIENT HUMBERTO S FASTINGPERFORMED BY: CB [facility] Bzrpfd2157 [address]bl[address] [place] [id number] T4, FREE (THYROXINE) ([id number]) Ordered By: Cord Tire Builder on 09-12-2020 Free T4 [Mass/Vol] 1.59 ng/dL Normal 0.82-1.77 [facility]; [facility] Work Phone: Comment on above: August 2020; PATIENT WA S FASTINGPERFORMED BY: [facility] Ukqjyy9924 [facility] [id number] TSH (THYROID STIMULATING HOR ALEXEI) ([id number])Ordered By: Cord Tire Builder on 09-12-2020 TSH Qn 2.140 {uIU/mL} Normal 0.450-4.50 0 [facility]; [facility] Work Phone: Comment on above: August 2020; PATIENT WA S FASTINGPERFORMED BY: [facility] Dlivyd1453 [facility] [id number] CBC, Platelets & Auto Diff ( 59581)Ordered By: Cord Tire Builder on 02-20-2020 Basophils (Bld) [#/Vol] 0.1 {x10E3/uL} Normal 0.0-0.2 [facility] Work Phone: Comment on above: Feb 2; PATIENT WAS F ASTINGPERFORMED BY: [facility]Formerly [facility]6370 [facility] [id number] Basophils (Bld) [#/Vol] 0.1 10*3/uL Normal 0.0-0.2 [facility]; [facility] Work Phone: Comment on above: Nov 2; PATIENT WAS F ASTINGPERFORMED BY: [facility] Qqvmoj1545 [facility] [id number] Basophils/100 WBC (Bld) 1 % Normal [facility] Work Phone: Comment on above: Nov 2; PATIENT WAS F ASTINGPERFORMED BY: [facility] Vcowsv7021 [facility] [id number] Eosinophils (Bld) [#/Vol] 0.2 {x10E3/uL} Normal 0.0-0.4 [facility] Work Phone: Comment on above: Nov 2; PATIENT WAS F ASTINGPERFORMED BY: [facility] Csbfdq2336 [facility] [id number] Eosinophils (Bld) [#/Vol] 0.2 10*3/uL Normal 0.0-0.4 [facility]; [facility] Work Phone: Comment on above: Nov 2; PATIENT WAS F ASTINGPERFORMED BY: CB [facility] Vwkaem1011 [address]Dublin [place] [id number] Eosinophils/100 WBC (Bld) 3 % Normal [facility] Work Phone: Comment on above: Nov 2; PATIENT WAS F ASTINGPERFORMED BY: CB [facility] Twnbze9231 [address] RoadDublin [place] [id number] Erythrocyte distribution width (RBC) [Ratio] 13.0 % Normal 11.7-15.4 [facility] Work Phone: Comment on above: Feb 2; PATIENT WAS F ASTINGPERFORMED BY: CB [facility] Krxxdw5097 [address] RoadDublin [place] [id number] Hematocrit (Bld) [Volume fraction] 36.4 % Normal 34.0-46.6 [facility] Work Phone: Comment on above: Nov 2; PATIENT WAS F ASTINGPERFORMED BY: CB [facility] Quzfyf5031 [address] RoadDublin [place] [id number] Hemoglobin (Bld) [Mass/Vol] 12.5 g/dL Normal 11.1-15.9 [facility] Work Phone: Comment on above: Nov 2; PATIENT WAS F ASTINGPERFORMED BY: CB [facility] Lcmmtk0951 [address] RoadDublin [place] [id number] Immature granulocytes (Bld) [#/Vol] 0.0 {x10E3/uL} Normal 0.0-0.1 [facility] Work Phone: Comment on above: Feb 2; PATIENT WAS F ASTINGPERFORMED BY: CB [facility] Frlsay7025 [address] RoadDublin [place] [id number] Immature granulocytes (Bld) [#/Vol] 0.0 10*3/uL Normal 0.0-0.1 [facility]; [facility] Work Phone: Comment on above: Nov 2; PATIENT WAS F ASTINGPERFORMED BY: CB [facility] Ctmkvk0130 [address] RoadDublin [place] [id number] Immature granulocytes/100 WBC (Bld) 0 % Normal [facility] Work Phone: Comment on above: Nov 2; PATIENT WAS F ASTINGPERFORMED BY: CB [facility] Vdjioa0344 [address] RoadDublin [place] [id number] Lymphocytes (Bld) [#/Vol] 1.4 {x10E3/uL} Normal 0.7-3.1 [facility] Work Phone: Comment on above: Nov 2; PATIENT WAS F ASTINGPERFORMED BY: CB [facility] Njrzut5022 [address] RoadDublin [place] [id number] Lymphocytes (Bld) [#/Vol] 1.4 10*3/uL Normal 0.7-3.1 [facility]; [facility] Work Phone: Comment on above: Nov 2; PATIENT WAS F ASTINGPERFORMED BY: [facility] Qamhfv9836 [address] RoadDuin [place] [id number] Lymphocytes/100 WBC (Bld) 24 % Normal [facility] Work Phone: Comment on above: Nov 2; PATIENT WAS F ASTINGPERFORMED BY: [facility] Kgbwca2536 [address] [facility] [place] [id number] MCH (RBC) [Entitic mass] 31.3 pg Normal 26.6-33.0 [facility] Work Phone: Comment on above: Nov 2; PATIENT WAS F ASTINGPERFORMED BY: [facility] Pxmeww3824 [address] [facility] [id number] MCHC (RBC) [Mass/Vol] 34.3 g/dL Normal 31.5-35.7 [facility] Work Phone: Comment on above: Nov 2; PATIENT WAS F ASTINGPERFORMED BY: CB [facility] Aljvev9862 [address] [facility] [place] [id number] MCV (RBC) [Entitic vol] 91 fL Normal 79-97 [facility] Work Phone: Comment on above: Nov 2; PATIENT WAS F ASTINGPERFORMED BY: [facility] Rwgwej9546 [address] RoadDublin [place] [id number] Monocytes (Bld) [#/Vol] 0.5 {x10E3/uL} Normal 0.1-0.9 [facility] Work Phone: Comment on above: Nov 2; PATIENT WAS F ASTINGPERFORMED BY: CB [facility] Qoizjx8905 [address] RoadDublin [place] [id number] Monocytes (Bld) [#/Vol] 0.5 10*3/uL Normal 0.1-0.9 [facility]; [facility] Work Phone: Comment on above: Nov 2; PATIENT WAS F ASTINGPERFORMED BY: CB [facility] Hgfxhu3132 [address] RoadDublin [place] [id number] Monocytes/100 WBC (Bld) 8 % Normal [facility] Work Phone: Comment on above: Nov 2; PATIENT WAS F ASTINGPERFORMED BY: CB [facility] Syuuoh4114 [address] RoadDublin [place] [id number] Neutrophils (Bld) [#/Vol] 3.7 {x10E3/uL} Normal 1.4-7.0 [facility] Work Phone: Comment on above: Nov 2; PATIENT WAS F ASTINGPERFORMED BY: CB [facility] Cmxxiq2344 [address] RoadDublin [place] [id number] Neutrophils (Bld) [#/Vol] 3.7 10*3/uL Normal 1.4-7.0 [facility]; [facility] Work Phone: Comment on above: Nov 2; PATIENT WAS F ASTINGPERFORMED BY: CB [facility] Zznrgl8788 [address] RoadDublin [place] [id number] Neutrophils/100 WBC (Bld) 64 % Normal [facility] Work Phone: Comment on above: Nov 2; PATIENT WAS F ASTINGPERFORMED BY: CB [facility] Rglsyp5942 [address] RoadDublin [place] [id number] Platelets (Bld) [#/Vol] 205 {x10E3/uL} Normal 150-450 [facility] Work Phone: Comment on above: Nov 2; PATIENT WAS F ASTINGPERFORMED BY: CB [facility] Nuyxnj7161 [address] RoadDublin [place] [id number] Platelets (Bld) [#/Vol] 205 10*3/uL Normal 150-450 [facility]; [facility] Work Phone: Comment on above: Nov 2; PATIENT WAS F ASTINGPERFORMED BY: CB [facility] Rngkbv0110 [address] RoadDublin [place] [id number] RBC (Bld) [#/Vol] 4.00 {x10E6/uL} Normal 3.77-5.28 [facility] Work Phone: Comment on above: Feb 2; PATIENT WAS F ASTINGPERFORMED BY: CB [facility] Paygzg1496 [address] RoadDublin [place] [id number] RBC (Bld) [#/Vol] 4.00 10*6/uL Normal 3.77-5.28 [facility]; [facility] Work Phone: Comment on above: Feb 2; PATIENT WAS F ASTINGPERFORMED BY: CB [facility] Uowfey7976 [address] RoadDublin [place] [id number] WBC (Bld) [#/Vol] 5.7 {x10E3/uL} Normal 3.4-10.8 [facility] Medicine Work Phone: Comment on above: Nov 2; PATIENT WAS F ASTINGPERFORMED BY: CB [facility] Zhyqmb0971 [address] RoadDublin [place] [id number] WBC (Bld) [#/Vol] 5.7 10*3/uL Normal 3.4-10.8 [facility]; [facility] Work Phone: Comment on above: Feb 2; PATIENT WAS F ASTINGPERFORMED BY: CB [facility] Rzppbc8903 [address] RoadDublin [place] [id number] LIPID PANEL (30302)Ordered B y: [employer] on 02-20-2020 Cholesterol [Mass/Vol] 257 mg/dL Abnormal 100-199 [facility] Work Phone: Comment on above: Feb 2; PATIENT WAS F ASTINGPERFORMED BY: CB [facility] Efdcvi6868 [address] RoadDublin [place] [id number] Cholesterol in HDL [Mass/Vol] 61 mg/dL Normal [facility] Work Phone: Comment on above: Feb 2; PATIENT WAS F ASTINGPERFORMED BY: CB [facility] Uzzsjg5959 [address] RoadDublin [place] [id number] Cholesterol in LDL/Cholesterol in HDL [Mass ratio] 2.9 {ratio} Normal 0.0-3.2 [facility] Work Phone: Comment on above: LDL/HDL Ratio Men Wo men 1/2 Avg.Risk 1.0 1.5 Avg.Risk 3.6 3.2 2X Avg.Risk 6.2 5.0 3X Avg.Risk 8.0 6.1 Feb 2; PATIENT WAS F ASTINGPERFORMED BY: CB [facility] Aampkj4822 [address] RoadDublin [place] [id number] Triglyceride [Mass/Vol] 101 mg/dL Normal 0-149 [facility] Work Phone: Comment on above: Feb 2; PATIENT WAS F ASTINGPERFORMED BY: CB [facility] Prqoup4187 [address] RoadDublin [place] [id number] LIPID PANEL (22951) 18 mg/dL Normal 5-40 [facility] Work Phone: Comment on above: Feb 2; PATIENT WAS F ASTINGPERFORMED BY: CB [facility] Hthaon0774 [address] RoadDublin [place] [id number] LIPID PANEL (79353) 178 mg/dL Abnormal 0-99 [facility] Work Phone: Comment on above: Feb 2; PATIENT WAS F ASTINGPERFORMED BY: CB [facility] Crqznr2491 [address] RoadDublin [place] [id number] LIPID PANEL (35436) 2.9 {ratio} Normal 0.0-3.2 [facility]erens[facility]; [facility] Work Phone: Comment on above: LDL/HDL Ratio Men Wo men 1/2 Avg.Risk 1.0 1.5 Avg.Risk 3.6 3.2 2X Avg.Risk 6.2 5.0 3X Avg.Risk 8.0 6.1 Nov 2; PATIENT WAS F ASTINGPERFORMED BY: CB [facility] Qusmst8543 [address] RoadDublin [place] [id number] Metabolic Panel, Comprehensi ve (53527)Ordered By: [employer] on 02-20-2020 Albumin [Mass/Vol] 4.5 g/dL Normal 3.8-4.8 [facility] Internal Medicine Work Phone: Comment on above: Feb 2; PATIENT WAS F ASTINGPERFORMED BY: CB [facility] Hujllj3542 [address] RoadDublin [place] [id number] Albumin/Globulin [Mass ratio] 2.1 {ratio} Normal 1.2-2.2 [facility] Work Phone: Comment on above: Feb 2; PATIENT WAS F ASTINGPERFORMED BY: CB [facility] Gvrklo7722 [address] RoadDublin [place] [id number] ALP [Catalytic activity/Vol] 63 [iU]/L Normal 39-117 [facility] Work Phone: Comment on above: Feb 2; PATIENT WAS F ASTINGPERFORMED BY: CB [facility] Gpnspq8969 [address] RoadDublin [place] [id number] ALP [Catalytic activity/Vol] 63 U/L Normal 39-117 [facility]; [facility] Work Phone: Comment on above: Feb 2; PATIENT WAS F ASTINGPERFORMED BY: CB [facility] Giqnuh0482 [address] RoadDublin [place] [id number] ALT [Catalytic activity/Vol] 15 [iU]/L Normal 0-32 [facility] Work Phone: Comment on above: Feb 2; PATIENT WAS F ASTINGPERFORMED BY: CB [facility] Ukjfyb4296 [address] RoadDublin [place] [id number] ALT [Catalytic activity/Vol] 15 U/L Normal 0-32 [facility]; [facility] Work Phone: Comment on above: Nov 2; PATIENT WAS F ASTINGPERFORMED BY: CB [facility] Onzpmw1383 [address] RoadDublin [place] [id number] AST [Catalytic activity/Vol] 15 [iU]/L Normal 0-40 [facility] Work Phone: Comment on above: Nov 2; PATIENT WAS F ASTINGPERFORMED BY: CB [facility] Umueyt3377 [address] RoadDublin [place] [id number] AST [Catalytic activity/Vol] 15 U/L Normal 0-40 [facility]; [facility] Work Phone: Comment on above: Nov 2; PATIENT WAS F ASTINGPERFORMED BY: CB [facility] Gpmtbt0800 [address] RoadDublin [place] [id number] Bilirubin [Mass/Vol] 0.4 mg/dL Normal 0.0-1.2 [facility] Work Phone: Comment on above: Feb 2; PATIENT WAS F ASTINGPERFORMED BY: CB [facility] Jsezna0304 [address] RoadDublin [place] [id number] Calcium [Mass/Vol] 9.1 mg/dL Normal 8.7-10.3 [facility] Internal Medicine Work Phone: Comment on above: Feb 2; PATIENT WAS F ASTINGPERFORMED BY: CB [facility] Ajeazq8922 [address] RoadDublin [place] [id number] Chloride [Moles/Vol] 105 mmol/L Normal 96-106 [facility] Internal Medicine Work Phone: Comment on above: Nov 2; PATIENT WAS F ASTINGPERFORMED BY: CB [facility] Oxtkkn0735 [address] RoadDublin [place] [id number] CO2 [Moles/Vol] 25 mmol/L Normal 20-29 [facility] Internal Medicine Work Phone: Comment on above: Feb 2; PATIENT WAS F ASTINGPERFORMED BY: CB [facility] Fjptcm5243 [address] RoadDublin [place] [id number] Creatinine [Mass/Vol] 0.95 mg/dL Normal 0.57-1.00 [facility] Internal Medicine Work Phone: Comment on above: Nov 2; PATIENT WAS F ASTINGPERFORMED BY: CB [facility] Ouzvgx2488 [address] RoadDublin [place] [id number] GFR/1.73 sq M predicted among blacks CKD-EPI (S/P/Bld) [Vol rate/Area] 74 mL/min/1.73 Normal [facility] Work Phone: Comment on above: Nov 2; PATIENT WAS F ASTINGPERFORMED BY: CB [facility] Ixhokw3903 [address] RoadDublin [place] [id number] GFR/1.73 sq M predicted among non-blacks CKD-EPI (S/P/Bld) [Vol rate/Area] 64 mL/min/1.73 Normal [facility] Work Phone: Comment on above: Feb 2; PATIENT WAS F ASTINGPERFORMED BY: CB [facility] Giydtr7207 [address] RoadDublin [place] [id number] Globulin (S) [Mass/Vol] 2.1 g/dL Normal 1.5-4.5 [facility] Work Phone: Comment on above: Nov 2; PATIENT WAS F ASTINGPERFORMED BY: CB [facility] Olqcbw5623 [address] RoadDublin [place] [id number] Glucose [Mass/Vol] 91 mg/dL Normal 65-99 [facility] Internal Medicine Work Phone: Comment on above: Nov 2; PATIENT WAS F ASTINGPERFORMED BY: CB [facility] Mdyijv3300 [address] RoadDublin [place] [id number] Potassium [Moles/Vol] 4.3 mmol/L Normal 3.5-5.2 [facility] Internal Medicine Work Phone: Comment on above: Nov 2; PATIENT WAS F ASTINGPERFORMED BY: CB [facility] Eduthg7813 [address] RoadDublin [place] [id number] Protein [Mass/Vol] 6.6 g/dL Normal 6.0-8.5 [facility] Internal Medicine Work Phone: Comment on above: Nov 2; PATIENT WAS F ASTINGPERFORMED BY: CB [facility] Ydrdmc1441 [address] RoadDublin [place] [id number] Sodium [Moles/Vol] 143 mmol/L Normal 134-144 [facility] Internal Medicine Work Phone: Comment on above: Feb 19; PATIENT WAS F ASTINGPERFORMED BY: [facility] Dezmed7563 Pat[address] [facility]in [place] [id number] Urea nitrogen [Mass/Vol] 12 mg/dL Normal 8- [facility] Internal Medicine Work Phone: Comment on above: Feb 19; PATIENT WAS F ASTINGPERFORMED BY: [facility] Xetjyg8523 [address] [facility] [id number] Urea nitrogen/Creatinine [Mass ratio] 13 mg/mg Normal 12 [facility] Internal Medicine Work Phone: Comment on above: Feb 19; PATIENT WAS F ASTINGPERFORMED BY: [facility] Bxwzco9594 [facility] [id number] T3, FREE (TRIDOTHYRONINE) ([id number])Ordered By: [employer] on 02-20-2020 Free T3 [Mass/Vol] 2.2 pg/mL Normal 2.0-4.4 [facility] Internal Medicine Work Phone: Comment on above: Feb 20 2020; PATIENT WAS FASTINGPERFORMED BY: [facility] Nkbmar4822 [facility] [id number] T4, FREE (THYROXINE) ([id number]) Ordered By: [employer] on 02-20-2020 Free T4 [Mass/Vol] 1.53 ng/dL Normal 0.82-1.77 [facility] Internal Medicine Work Phone: Comment on above: Feb 20 2020; PATIENT WAS FASTINGPERFORMED BY: [facility] Lvkknd2686 [address] [facility]in [place] [id number] TSH (THYROID STIMULATING HOR ALEXEI) ([id number])Ordered By: [employer] on 02-20-2020 TSH Qn 1.580 {uIU/mL} Normal 0.450-4.50 0 [facility] Internal Medicine Work Phone: Comment on above: Feb 20 2020; PATIENT WAS FASTINGPERFORMED BY: [facility] Fmsynw8041 [facility] [id number] Vital Signs Date Time Vital Sign Value Performing Clinician Facility 10-14-2024 11:25-0400 Body mass index (BMI) [Ratio] 21.53 kg/m2 Aziza Thompson PA-C Work Phone: [facility] 10-14-2024 11:25-0400 Body temperature 98.4 [degF] Aziza Thompson PA-C Work Phone: [facility] 10-14-2024 11:25-0400 Body weight 53.07 kg Aziza Thompson PA-C Work Phone: [facility] 10-14-2024 11:25-0400 Diastolic blood pressure 78 mm[Hg] Aziza Thompson PA-C Work Phone: [facility] 10-14-2024 11:25-0400 Heart rate 53 /min Aziza Thompson PA-C Work Phone: [facility] 10-14-2024 11:25-0400 Respiratory rate 16 /min Aziza Thompson PA-C Work Phone: [facility] 10-14-2024 11:25-0400 SaO2% (BldA) [Mass fraction] 98 % Aziza Thompson PA-C Work Phone: [facility] 10-14-2024 11:25-0400 Systolic blood pressure 112 mm[Hg] Aziza DANIELS-C Work Phone: [facility] 09-28-2024 11:23-0400 Body mass index (BMI) [Ratio] 21.53 kg/m2 Aziza Thompson PA-C Work Phone: [facility] 09-28-2024 11:23-0400 Body temperature 98.4 [degF] Aziza Thompson PA-C Work Phone: [facility] 09-28-2024 11:23-0400 Body weight 53.07 kg Aziza Thompson PA-C Work Phone: [facility] 09-28-2024 11:23-0400 Diastolic blood pressure 86 mm[Hg] Aziza Thompson PA-C Work Phone: [facility] 09-28-2024 11:23-0400 Heart rate 44 /min Aziza Thompson PA-C Work Phone: [facility] 09-28-2024 11:23-0400 Respiratory rate 16 /min Aziza Thompson PA-C Work Phone: [facility] 09-28-2024 11:23-0400 SaO2% (BldA) [Mass fraction] 99 % Aziza Thompson PA-C Work Phone: [facility] 09-28-2024 11:23-0400 Systolic blood pressure 120 mm[Hg] Aziza Thompson PA-C Work Phone: [facility] 09-19-2024 11:28-0400 Body height 157.[address] Remy Perez MD Work Phone: [phone] [place] [address] 09-19-2024 11:28-0400 Body mass index (BMI) [Ratio] 21.5 kg/m2 Dr. Remy Perez MD Work Phone: [phone] [place] [address] 09-19-2024 11:28-0400 Body weight 53.[address] Remy Perez MD Work Phone: [facility] 09-19-2024 11:28-0400 Diastolic blood pressure 94 mm[Hg] Dr. Remy Perez MD Work Phone: [facility] 09-19-2024 11:28-0400 Heart rate 61 /min Dr. Remy Perez MD Work Phone: [phone] [place] [address] 09-19-2024 11:28-0400 Respiratory rate 18 /min Dr. Remy Perez MD Work Phone: [facility] 09-19-2024 11:28-0400 Systolic blood pressure 149 mm[Hg] Dr. Remy Perez MD Work Phone: [phone] [place] [address] 08-25-2024 12:03-0400 Body mass index (BMI) [Ratio] 21.35 kg/m2 Aziza Thompson PA-C Work Phone: [facility] 08-25-2024 12:03-0400 Body temperature 98.29 [degF] Aziza Thompson PA-C Work Phone: [facility] 08-25-2024 12:03-0400 Body weight 52.62 kg Aziza Thompson PA-C Work Phone: [facility] 08-25-2024 12:03-0400 Diastolic blood pressure 82 mm[Hg] Aziza Thompson PA-C Work Phone: [facility] 08-25-2024 12:03-0400 Heart rate 53 /min Aziza Thompson PA-C Work Phone: [facility] 08-25-2024 12:03-0400 Respiratory rate 16 /min Aziza Thompson PA-C Work Phone: [facility] 08-25-2024 12:03-0400 SaO2% (BldA) [Mass fraction] 98 % Aziza Thompson PA-C Work Phone: [facility] 08-25-2024 12:03-0400 Systolic blood pressure 132 mm[Hg] Aziza Thompson PA-C Work Phone: [facility] 08-08-2024 14:38-0400 Diastolic blood pressure 85 mm[Hg] Aziza Thompson PA-C Work Phone: [facility] Comment on above: average with bp machine 08-08-2024 14:38-0400 Heart rate 58 /min Aziza Thompson PA-C Work Phone: [facility] 08-08-2024 14:38-0400 Systolic blood pressure 143 mm[Hg] Aziza Thompson PA-C Work Phone: [facility] Comment on above: average with bp machine 08-08-2024 13:15-0400 Body height 157 cm Aziza Thompson PA-C Work Phone: [facility] 08-08-2024 13:15-0400 Body mass index (BMI) [Ratio] 21.71 kg/m2 Aziza Thompson PA-C Work Phone: [facility] 08-08-2024 13:15-0400 Body temperature 98.4 [degF] Aziza Thompson PA-C Work Phone: [facility] 08-08-2024 13:15-0400 Body weight 53.52 kg Aziza Thompson PA-C Work Phone: [facility] 08-08-2024 13:15-0400 Respiratory rate 16 /min Aziza Thompson PA-C Work Phone: [facility] 08-08-2024 13:15-0400 SaO2% (BldA) [Mass fraction] 97 % Aziza Thompson PA-C Work Phone: [facility] 06-02-2024 10:31-0500 Body height 157.5 cm Remy Perez MD Work Phone: [facility] 06-02-2024 10:31-0500 Body mass index (BMI) [Ratio] 21.58 kg/m2 Remy Perez MD Work Phone: [facility] 06-02-2024 10:31-0500 Body weight 53.52 kg Remy Perez MD Work Phone: [facility] 06-02-2024 10:31-0500 Diastolic blood pressure 87 mm[Hg] Remy Perez MD Work Phone: [facility] 06-02-2024 10:31-0500 Heart rate 66 /min Remy Perez MD Work Phone: [facility] 06-02-2024 10:31-0500 Systolic blood pressure 137 mm[Hg] Remy Perez MD Work Phone: [facility] 05-26-2024 11:33-0500 Body mass index (BMI) [Ratio] 21.4 kg/m2 Aziza Thompson PA-C Work Phone: [facility] 05-26-2024 11:33-0500 Body temperature 97.3 [degF] Aziza Thompson PA-C Work Phone: [facility] 05-26-2024 11:33-0500 Body weight 54.43 kg Aziza Thompson PA-C Work Phone: [facility] 05-26-2024 11:33-0500 Diastolic blood pressure 82 mm[Hg] Aziza Thompson PA-C Work Phone: [facility] 05-26-2024 11:33-0500 Heart rate 60 /min Aziza Thompson PA-C Work Phone: [facility] 05-26-2024 11:33-0500 Respiratory rate 16 /min Aziza Thompson PA-C Work Phone: [facility] 05-26-2024 11:33-0500 SaO2% (BldA) [Mass fraction] 99 % Aziza Thompson PA-C Work Phone: [facility] 05-26-2024 11:33-0500 Systolic blood pressure 130 mm[Hg] Aziza Thompson PA-C Work Phone: [facility] 03-10-2024 12:15-0500 Body mass index (BMI) [Ratio] 21.93 kg/m2 Tank Andrews-Anthony DESIGN DRAFTSMAN.INDUSTRIAL INSULATOR Work Phone: [facility] 03-10-2024 12:15-0500 Body temperature 98.01 [degF] Tank Mullinsler-Anthony DESIGN DRAFTSMAN.INDUSTRIAL INSULATOR Work Phone: [facility] 03-10-2024 12:15-0500 Body weight 55.8 kg Tank Prasarah-Anthony DESIGN DRAFTSMAN.INDUSTRIAL INSULATOR Work Phone: [facility] 03-10-2024 12:15-0500 Diastolic blood pressure 90 mm[Hg] Tank Praladanler-Anthony DESIGN DRAFTSMAN.INDUSTRIAL INSULATOR Work Phone: [facility] 03-10-2024 12:15-0500 Heart rate 63 /min Tank Mullinsler-Anthony DESIGN DRAFTSMAN.INDUSTRIAL INSULATOR Work Phone: [facility] 03-10-2024 12:15-0500 Respiratory rate 21 /min Tank Praisler-Wood DESIGN DRAFTSMAN.INDUSTRIAL INSULATOR Work Phone: [facility] 03-10-2024 12:15-0500 SaO2% (BldA) [Mass fraction] 99 % Tank Praisler-Wood DESIGN DRAFTSMAN.INDUSTRIAL INSULATOR Work Phone: [facility] 03-10-2024 12:15-0500 Systolic blood pressure 140 mm[Hg] Tank Praisler-Wood DESIGN DRAFTSMAN.INDUSTRIAL INSULATOR Work Phone: [facility] 02-08-2024 13:08-0400 Body mass index (BMI) [Ratio] 21.22 kg/m2 Aziza Thompson PA-C Work Phone: [facility] 02-08-2024 13:08-0400 Body temperature 97.3 [degF] Aziza Thompson PA-C Work Phone: [facility] 02-08-2024 13:08-0400 Body weight 53.98 kg Aziza Thompson PA-C Work Phone: [facility] 02-08-2024 13:08-0400 Diastolic blood pressure 86 mm[Hg] Aziza Thompson PA-C Work Phone: [facility] 02-08-2024 13:08-0400 Heart rate 52 /min Aziza Thompson PA-C Work Phone: [facility] 02-08-2024 13:08-0400 Respiratory rate 16 /min Aziza Thompson PA-C Work Phone: [facility] 02-08-2024 13:08-0400 SaO2% (BldA) [Mass fraction] 99 % Aziza Thompson PA-C Work Phone: [facility] 02-08-2024 13:08-0400 Systolic blood pressure 126 mm[Hg] Aziza Thompson PA-C Work Phone: [facility] 11-19-2023 15:11-0400 Body mass index (BMI) [Ratio] 20.86 kg/m2 Aziza Thompson PA-C Work Phone: [facility] 11-19-2023 15:11-0400 Body temperature 99.19 [degF] Aziza Thompson PA-C Work Phone: [facility] 11-19-2023 15:11-0400 Body weight 53.07 kg Aziza Thompson PA-C Work Phone: [facility] 11-19-2023 15:11-0400 Diastolic blood pressure 76 mm[Hg] Aziza Thompson PA-C Work Phone: [facility] 11-19-2023 15:11-0400 Heart rate 72 /min Aziza Thompson PA-C Work Phone: [facility] 11-19-2023 15:11-0400 Respiratory rate 16 /min Aziza Thompson PA-C Work Phone: [facility] 11-19-2023 15:11-0400 SaO2% (BldA) [Mass fraction] 95 % Aziza Thompson PA-C Work Phone: [facility] 11-19-2023 15:11-0400 Systolic blood pressure 106 mm[Hg] Aziza Thompson PA-C Work Phone: [facility] 07-23-2023 12:46-0400 Body height 159.5 cm Aziza Thompson PA-C Work Phone: [facility] 07-23-2023 12:46-0400 Body temperature 98.2 [degF] Aziza Thompson PA-C Work Phone: [facility] 07-23-2023 12:46-0400 Body weight 53.52 kg Aziza Thompson PA-C Work Phone: [facility] 07-23-2023 12:46-0400 Diastolic blood pressure 84 mm[Hg] Aziza Thompson PA-C Work Phone: [facility] 07-23-2023 12:46-0400 Heart rate 69 /min Aziza Thompson PA-C Work Phone: [facility] 07-23-2023 12:46-0400 Respiratory rate 16 /min Aziza KUMARC Work Phone: [facility] 07-23-2023 12:46-0400 SaO2% (BldA) [Mass fraction] 97 % Aziza DANIELS-C Work Phone: [facility] 07-23-2023 12:46-0400 Systolic blood pressure 112 mm[Hg] Aziza KUMARC Work Phone: [facility] 07-03-2023 10:46-0400 Body weight 53.52 kg Remy Perez MD Work Phone: [facility] 07-03-2023 10:46-0400 Diastolic blood pressure 80 mm[Hg] Remy Perez MD Work Phone: [facility] 07-03-2023 10:46-0400 Heart rate 66 /min Remy Perez MD Work Phone: [facility] 07-03-2023 10:46-0400 Respiratory rate 16 /min Remy Perez MD Work Phone: [facility] 07-03-2023 10:46-0400 SaO2% (BldA) [Mass fraction] 98 % Remy Perez MD Work Phone: [facility] 07-03-2023 10:46-0400 Systolic blood pressure 120 mm[Hg] Remy Perez MD Work Phone: [facility] 06-24-2023 13:55-0500 Body temperature 98.29 [degF] Manuel Simpson DESIGN DRAFTSMAN.INDUSTRIAL INSULATOR Work Phone: [facility] 06-24-2023 13:55-0500 Body weight 53.07 kg Manuel Simpson APRN.INDUSTRIAL INSULATOR Work Phone: [facility] 06-24-2023 13:55-0500 Diastolic blood pressure 76 mm[Hg] Manuel Simpson APRN.INDUSTRIAL INSULATOR Work Phone: [facility] 06-24-2023 13:55-0500 Heart rate 67 /min Manuel Calvin DESIGN DRAFTSMAN.INDUSTRIAL INSULATOR Work Phone: [facility] 06-24-2023 13:55-0500 Respiratory rate 18 /min Manuel Calvin DESIGN DRAFTSMAN.INDUSTRIAL INSULATOR Work Phone: [facility] 06-24-2023 13:55-0500 SaO2% (BldA) [Mass fraction] 99 % Manuel Calvin DESIGN DRAFTSMAN.INDUSTRIAL INSULATOR Work Phone: [facility] 06-24-2023 13:55-0500 Systolic blood pressure 118 mm[Hg] Manuel Calvin DESIGN DRAFTSMAN.INDUSTRIAL INSULATOR Work Phone: [facility] 04-08-2023 10:52-0500 Body temperature 98.49 [degF] Sophia Callow DESIGN DRAFTSMAN.INDUSTRIAL INSULATOR Work Phone: [facility] 04-08-2023 10:52-0500 Body weight 53.98 kg Sophia Callow DESIGN DRAFTSMAN.INDUSTRIAL INSULATOR Work Phone: [facility] 04-08-2023 10:52-0500 Diastolic blood pressure 80 mm[Hg] Sophia Callow DESIGN DRAFTSMAN.INDUSTRIAL INSULATOR Work Phone: [facility] 04-08-2023 10:52-0500 Heart rate 68 /min Sophia Callow DESIGN DRAFTSMAN.INDUSTRIAL INSULATOR Work Phone: [facility] 04-08-2023 10:52-0500 Respiratory rate 16 /min Sophia Callow DESIGN DRAFTSMAN.INDUSTRIAL INSULATOR Work Phone: [facility] 04-08-2023 10:52-0500 SaO2% (BldA) [Mass fraction] 99 % Sophia Callow DESIGN DRAFTSMAN.INDUSTRIAL INSULATOR Work Phone: [facility] 04-08-2023 10:52-0500 Systolic blood pressure 134 mm[Hg] Sophia Callow DESIGN DRAFTSMAN.INDUSTRIAL INSULATOR Work Phone: [facility] 02-11-2023 13:27-0400 Body temperature 97.2 [degF] Keely Doll DESIGN DRAFTSMAN.INDUSTRIAL INSULATOR Work Phone: [facility] 02-11-2023 13:27-0400 Body weight 53.98 kg Keely Doll DESIGN DRAFTSMAN.INDUSTRIAL INSULATOR Work Phone: [facility] 02-11-2023 13:27-0400 Diastolic blood pressure 60 mm[Hg] Keely Doll DESIGN DRAFTSMAN.INDUSTRIAL INSULATOR Work Phone: [facility] 02-11-2023 13:27-0400 Heart rate 68 /min Keely Doll DESIGN DRAFTSMAN.INDUSTRIAL INSULATOR Work Phone: [facility] 02-11-2023 13:27-0400 Respiratory rate 16 /min Keely Doll DESIGN DRAFTSMAN.INDUSTRIAL INSULATOR Work Phone: [facility] 02-11-2023 13:27-0400 SaO2% (BldA) [Mass fraction] 98 % Keely Doll DESIGN DRAFTSMAN.INDUSTRIAL INSULATOR Work Phone: [facility] 02-11-2023 13:27-0400 Systolic blood pressure 110 mm[Hg] Keely Doll DESIGN DRAFTSMAN.INDUSTRIAL INSULATOR Work Phone: [facility] 01-29-2023 14:25-0400 Body temperature 97.2 [degF] Louise Orangeburg PA-C Work Phone: [facility] 01-29-2023 14:25-0400 Body weight 53.71 kg Louise Orangeburg PA-C Work Phone: [facility] 01-29-2023 14:25-0400 Diastolic blood pressure 60 mm[Hg] Louise Aman PA-C Work Phone: [facility] 01-29-2023 14:25-0400 Heart rate 71 /min Louise Aman PA-C Work Phone: [facility] 01-29-2023 14:25-0400 SaO2% (BldA) [Mass fraction] 98 % Louise Aman PA-C Work Phone: [facility] 01-29-2023 14:25-0400 Systolic blood pressure 102 mm[Hg] Louise Aman PA-C Work Phone: [facility] 01-22-2023 13:53-0400 Diastolic blood pressure 76 mm[Hg] Hugh Cole MD Work Phone: [facility] 01-22-2023 13:53-0400 Heart rate 55 /min Hugh Cole MD Work Phone: [facility] 01-22-2023 13:53-0400 Respiratory rate 16 /min Hugh Cole MD Work Phone: [facility] 01-22-2023 13:53-0400 SaO2% (BldA) [Mass fraction] 99 % Hugh Cole MD Work Phone: [facility] 01-22-2023 13:53-0400 Systolic blood pressure 157 mm[Hg] Hugh Cole MD Work Phone: [facility] 01-22-2023 11:40-0400 Body temperature 97.5 [degF] Hugh Cole MD Work Phone: [facility] 12-24-2022 12:04-0400 Body temperature 97.7 [degF] Aziza Thompson PA-C Work Phone: [facility] 12-24-2022 12:04-0400 Body weight 53.98 kg Aziza Thompson PA-C Work Phone: [facility] 12-24-2022 12:04-0400 Diastolic blood pressure 80 mm[Hg] Aziza Thompson PA-C Work Phone: [facility] 12-24-2022 12:04-0400 Heart rate 60 /min Aziza Thompson PA-C Work Phone: [facility] 12-24-2022 12:04-0400 Respiratory rate 16 /min Aziza Thompson PA-C Work Phone: [facility] 12-24-2022 12:04-0400 Systolic blood pressure 100 mm[Hg] Aziza Thompson PA-C Work Phone: [facility] 08-18-2022 13:31-0400 Body weight 56.25 kg Rupinder Goss APRN.CNP Work Phone: [facility] 08-18-2022 13:31-0400 Diastolic blood pressure 70 mm[Hg] Rupinder Knoble DESIGN DRAFTSMAN.INDUSTRIAL INSULATOR Work Phone: [facility] 08-18-2022 13:31-0400 Heart rate 86 /min Rupinder Knoble DESIGN DRAFTSMAN.INDUSTRIAL INSULATOR Work Phone: [facility] 08-18-2022 13:31-0400 Respiratory rate 14 /min Rupinder Knoble DESIGN DRAFTSMAN.INDUSTRIAL INSULATOR Work Phone: [facility] 08-18-2022 13:31-0400 Systolic blood pressure 118 mm[Hg] Rupinder Knoble DESIGN DRAFTSMAN.INDUSTRIAL INSULATOR Work Phone: [facility] 07-14-2022 14:04-0400 Body weight 56.25 kg Rupinder Knoble DESIGN DRAFTSMAN.INDUSTRIAL INSULATOR Work Phone: [facility] 07-14-2022 14:04-0400 Diastolic blood pressure 74 mm[Hg] Rupinder Knoble DESIGN DRAFTSMAN.INDUSTRIAL INSULATOR Work Phone: [facility] 07-14-2022 14:04-0400 Heart rate 60 /min Rupinder Knoble DESIGN DRAFTSMAN.INDUSTRIAL INSULATOR Work Phone: [facility] 07-14-2022 14:04-0400 Respiratory rate 14 /min Rupinder Knoble DESIGN DRAFTSMAN.INDUSTRIAL INSULATOR Work Phone: [facility] 07-14-2022 14:04-0400 Systolic blood pressure 120 mm[Hg] Rupinder Knoble DESIGN DRAFTSMAN.INDUSTRIAL INSULATOR Work Phone: [facility] 07-01-2022 15:12-0400 Body weight 56.7 kg Rupinder Knoble DESIGN DRAFTSMAN.INDUSTRIAL INSULATOR Work Phone: [facility] 07-01-2022 15:12-0400 Diastolic blood pressure 76 mm[Hg] Rupinder Knoble DESIGN DRAFTSMAN.INDUSTRIAL INSULATOR Work Phone: [facility] 07-01-2022 15:12-0400 Heart rate 70 /min Rupinder Knoble DESIGN DRAFTSMAN.INDUSTRIAL INSULATOR Work Phone: [facility] 07-01-2022 15:12-0400 Respiratory rate 14 /min Rupinder Knoble DESIGN DRAFTSMAN.INDUSTRIAL INSULATOR Work Phone: [facility] 07-01-2022 15:12-0400 Systolic blood pressure 112 mm[Hg] Rupinder Goss APRN.INDUSTRIAL INSULATOR Work Phone: [facility] 06-29-2022 17:34-0400 Diastolic blood pressure 104 mm[Hg] [facility] 06-29-2022 17:34-0400 Heart rate 67 /min [facility] 06-29-2022 17:34-0400 Respiratory rate 18 /min [facility] 06-29-2022 17:34-0400 SaO2% (BldA) [Mass fraction] 98 % [facility] 06-29-2022 17:34-0400 Systolic blood pressure 168 mm[Hg] [facility] 06-29-2022 13:23-0400 Body height 157.48 cm [facility] 06-29-2022 13:23-0400 Body mass index (BMI) [Ratio] 25.8 kg/m2 [facility] 06-29-2022 13:23-0400 Body temperature 97.8 [degF] [facility] 06-29-2022 13:23-0400 Body weight 64.1 kg [facility] 06-26-2022 11:16-0500 Body height 157.5 cm Louise Aman PA-C Work Phone: [facility] 06-26-2022 11:16-0500 Body temperature 98.49 [degF] Louise Aman PA-C Work Phone: [facility] 06-26-2022 11:16-0500 Body weight 56.7 kg Louise Aman PA-C Work Phone: [facility] 06-26-2022 11:16-0500 Diastolic blood pressure 80 mm[Hg] Louise Aman PA-C Work Phone: [facility] 06-26-2022 11:16-0500 Heart rate 97 /min Louise Aman PA-C Work Phone: [facility] 06-26-2022 11:16-0500 Respiratory rate 14 /min Louise Orangeburg PA-C Work Phone: [facility] 06-26-2022 11:16-0500 SaO2% (BldA) [Mass fraction] 97 % Louise Orangeburg PA-C Work Phone: [facility] 06-26-2022 11:16-0500 Systolic blood pressure 128 mm[Hg] Louise Orangeburg PA-C Work Phone: [facility] 06-19-2022 11:58-0500 Body height 160 cm Aziza Thompson PA-C Work Phone: [facility] 06-19-2022 11:58-0500 Body weight 55.34 kg Aziza Thompson PA-C Work Phone: [facility] 06-19-2022 11:58-0500 Diastolic blood pressure 84 mm[Hg] Aziza Thompson PA-C Work Phone: [facility] 06-19-2022 11:58-0500 Heart rate 75 /min Aziza Thompson PA-C Work Phone: [facility] 06-19-2022 11:58-0500 Respiratory rate 16 /min Aziza Thompson PA-C Work Phone: [facility] 06-19-2022 11:58-0500 SaO2% (BldA) [Mass fraction] 98 % Aziza Thompson PA-C Work Phone: [facility] 06-19-2022 11:58-0500 Systolic blood pressure 126 mm[Hg] Aziza Thompson PA-C Work Phone: [facility] 05-16-2022 11:31-0500 Diastolic blood pressure 98 mm[Hg] Aziza Thompson PA-C Work Phone: [facility] 05-16-2022 11:31-0500 Systolic blood pressure 153 mm[Hg] Aziza Thompson PA-C Work Phone: [facility] 05-16-2022 11:27-0500 Body weight 55.43 kg Aziza Thompson PA-C Work Phone: [facility] 05-16-2022 11:27-0500 Heart rate 61 /min Aziza Thompson PA-C Work Phone: [facility] 05-16-2022 11:27-0500 Respiratory rate 16 /min Aziza Thompson PA-C Work Phone: [facility] 05-16-2022 11:27-0500 SaO2% (BldA) [Mass fraction] 98 % Aziza Thompson PA-C Work Phone: [facility] 03-28-2022 12:06-0500 Body height 157.5 cm Genie Quispe MD Work Phone: [facility] 03-28-2022 12:06-0500 Body temperature 99 [degF] Genie Quispe MD Work Phone: [facility] 03-28-2022 12:06-0500 Body weight 54.43 kg Genie Quispe MD Work Phone: [facility] 03-28-2022 12:06-0500 Diastolic blood pressure 81 mm[Hg] Genie Quispe MD Work Phone: [facility] 03-28-2022 12:06-0500 Heart rate 69 /min Genie Quispe MD Work Phone: [facility] 03-28-2022 12:06-0500 Systolic blood pressure 132 mm[Hg] Genie Quispe MD Work Phone: [facility] 02-21-2022 15:50-0400 Body temperature 97.9 [degF] [facility] Work Phone: 02-21-2022 15:50-0400 Diastolic blood pressure 91 mm[Hg] [facility] Work Phone: 02-21-2022 15:50-0400 Heart rate 68 /min [facility] Work Phone: 02-21-2022 15:50-0400 Respiratory rate 16 /min [facility] Work Phone: 02-21-2022 15:50-0400 SaO2% (BldA) [Mass fraction] 99 % [facility] Work Phone: 02-21-2022 15:50-0400 Systolic blood pressure 151 mm[Hg] [facility] Work Phone: 02-21-2022 11:55-0400 Body height 157.48 cm [facility] Work Phone: 02-21-2022 11:55-0400 Body mass index (BMI) [Ratio] 21.9 kg/m2 [facility] Work Phone: 02-21-2022 11:55-0400 Body weight 54.43 kg [facility] Work Phone: 01-27-2022 10:19-0400 Body temperature 98.01 [degF] Aziza Thompson PA-C Work Phone: [facility] 01-27-2022 10:19-0400 Body weight 55.79 kg Aziza Thompson PA-C Work Phone: [facility] 01-27-2022 10:19-0400 Diastolic blood pressure 78 mm[Hg] Aziza Thompson PA-C Work Phone: [facility] 01-27-2022 10:19-0400 Heart rate 60 /min Aziza Thompson PA-C Work Phone: [facility] 01-27-2022 10:19-0400 Respiratory rate 16 /min Aziza Thompson PA-C Work Phone: [facility] 01-27-2022 10:19-0400 Systolic blood pressure 136 mm[Hg] Aziza Thompson PA-C Work Phone: [facility] 01-02-2022 12:52-0400 Diastolic blood pressure 77 mm[Hg] Mi Nurse Work Phone: [facility] 01-02-2022 12:52-0400 Heart rate 61 /min Mi Nurse Work Phone: [facility] 01-02-2022 12:52-0400 Systolic blood pressure 131 mm[Hg] Mi Nurse Work Phone: [facility] 12-19-2021 15:56-0400 Diastolic blood pressure 76 mm[Hg] Remy Perez MD Work Phone: [facility] 12-19-2021 15:56-0400 Systolic blood pressure 104 mm[Hg] Remy Perez MD Work Phone: [facility] 12-18-2021 15:06-0400 Body weight 54.88 kg Remy Perez MD Work Phone: [facility] 12-18-2021 15:06-0400 Heart rate 68 /min Remy Perez MD Work Phone: [facility] 12-18-2021 15:06-0400 Respiratory rate 14 /min Remy Perez MD Work Phone: [facility] 11-21-2021 08:59-0400 Body temperature 97.39 [degF] Aziza Thompson PA-C Work Phone: [facility] 11-21-2021 08:59-0400 Body weight 54.88 kg Aziza Thompson PA-C Work Phone: [facility] 11-21-2021 08:59-0400 Diastolic blood pressure 82 mm[Hg] Aziza Thompson PA-C Work Phone: [facility] 11-21-2021 08:59-0400 Heart rate 68 /min Aziza Thompson PA-C Work Phone: [facility] 11-21-2021 08:59-0400 Respiratory rate 16 /min Aziza Thompson PA-C Work Phone: [facility] 11-21-2021 08:59-0400 Systolic blood pressure 120 mm[Hg] Aziza Thompson PA-C Work Phone: [facility] 11-01-2021 15:40-0400 Body weight 54.43 kg Remy Perez MD Work Phone: [facility] 11-01-2021 15:40-0400 Diastolic blood pressure 86 mm[Hg] Remy Perez MD Work Phone: [facility] 11-01-2021 15:40-0400 Heart rate 68 /min Remy Perez MD Work Phone: [facility] 11-01-2021 15:40-0400 Respiratory rate 16 /min Remy Perez MD Work Phone: [facility] 11-01-2021 15:40-0400 Systolic blood pressure 132 mm[Hg] Remy Perez MD Work Phone: [facility] 10-12-2021 14:50-0400 Body height 157.48 cm [employer]C Clarissa Amato [employer] Work Phone: [facility] Work Phone: 10-12-2021 14:50-0400 Body mass index (BMI) [Ratio] 21.9 kg/m2 [employer]-C Clarissa Hamma [employer] Work Phone: [facility] Work Phone: 10-12-2021 14:50-0400 Body temperature 97.9 [degF] COUNTY AGENT-C Clarissa Hamma COUNTY AGENT Work Phone: [facility] Work Phone: 10-12-2021 14:50-0400 Body weight 54.43 kg COUNTY [employer]-C Clarissa Hamma COUNTY AGENT Work Phone: [facility] Work Phone: 10-12-2021 14:50-0400 Diastolic blood pressure 106 mm[Hg] COUNTY AGENT-C Clarissa Hamma COUNTY AGENT Work Phone: [facility] Work Phone: 10-12-2021 14:50-0400 Heart rate 77 /min COUNTY AG[employer]-C Clarissa Hamma COUNTY AGENT Work Phone: [facility] Work Phone: 10-12-2021 14:50-0400 Respiratory rate 16 /min COUNTY [employer]-C Clarissa Amato COUNTY AGENT Work Phone: [facility] Work Phone: 10-12-2021 14:50-0400 SaO2% (BldA) [Mass fraction] 98 % COUNTY [employer]-C Clarissa Amato COUNTY AG[employer] Work Phone: [facility] Work Phone: 10-12-2021 14:50-0400 Systolic blood pressure 158 mm[Hg] COUNTY AGENT-C Clarissa Hamma COUNTY AGENT Work Phone: [facility] Work Phone: 08-11-2021 13:25-0400 Body mass index (BMI) [Ratio] 21.6 kg/m2 COUNTY [employer]-C Clarissa Hamma COUNTY AG[employer] Work Phone: [facility] Work Phone: 08-11-2021 13:25-0400 Body temperature 98.9 [degF] COUNTY AGENT-C Clarissa Amato COUNTY AGENT Work Phone: [facility] Work Phone: 08-11-2021 13:25-0400 Body weight 55.33 kg COUNTY AG[employer]-C Clarissa Amato COUNTY AGENT Work Phone: [facility] Work Phone: 08-11-2021 13:25-0400 Diastolic blood pressure 80 mm[Hg] COUNTY AGENT-C Clarissa Hamma COUNTY AGENT Work Phone: [facility] Work Phone: 08-11-2021 13:25-0400 Heart rate 75 /min COUNTY AGENT-C Clarissa Hamma COUNTY AGENT Work Phone: [facility] Work Phone: 08-11-2021 13:25-0400 Respiratory rate 15 /min COUNTY AG[employer]-C Clarissa Hamma COUNTY AGENT Work Phone: [facility] Work Phone: 08-11-2021 13:25-0400 SaO2% (BldA) [Mass fraction] 99 % [employer]-C Clarissa Amato COUNTY [employer] Work Phone: [facility] Work Phone: 08-11-2021 13:25-0400 Systolic blood pressure 160 mm[Hg] COUNTY AGENT-C Clarissa Amato COUNTY AGENT Work Phone: [facility] Work Phone: 06-18-2021 13:29-0500 Body height 157.48 cm Nikky Slarb CITIZEN PARTICIPATION SPECIALIST [facility] Work Phone: 06-18-2021 13:29-0500 Body mass index (BMI) [Ratio] 21.77 kg/m2 Nikky Slarb CITIZEN PARTICIPATION SPECIALIST [facility] Work Phone: 06-18-2021 13:29-0500 Body surface area Derived from formula 1.53 m2 Nikky Slarb CITIZEN PARTICIPATION SPECIALIST [facility] Work Phone: 06-18-2021 13:29-0500 Body temperature 97.1 [degF] Nikky Slarb CITIZEN PARTICIPATION SPECIALIST [facility] Work Phone: 06-18-2021 13:29-0500 Body weight 53.99 kg Nikky Slarb CITIZEN PARTICIPATION SPECIALIST [facility] Work Phone: 06-18-2021 13:29-0500 Diastolic blood pressure 82 mm[Hg] Nikky Slarb CITIZEN PARTICIPATION SPECIALIST [facility] Work Phone: Comment on above: Patient Position: Sitting; Cuff Location : Left Arm; Cuff Size: Standard 06-18-2021 13:29-0500 Heart rate 62 /min Nikky Slarb CITIZEN PARTICIPATION SPECIALIST [facility] Work Phone: Comment on above: Pattern: Regular 06-18-2021 13:29-0500 Respiratory rate 16 /min Nikky Slarb CITIZEN PARTICIPATION SPECIALIST [facility] Work Phone: Comment on above: Pattern: Unlabored 06-18-2021 13:29-0500 SaO2% (BldA) [Mass fraction] 98 % Nikky Slarb CITIZEN PARTICIPATION SPECIALIST [facility] Work Phone: Comment on above: Room air 06-18-2021 13:29-0500 Systolic blood pressure 124 mm[Hg] Nikky Lagunas CITIZEN PARTICIPATION SPECIALIST [facility] Work Phone: Comment on above: Patient Position: Sitting; Cuff Location : Left Arm; Cuff Size: Standard 05-03-2021 12:05-0500 Body height 157.48 cm Carlos Mon LPN [facility] Work Phone: 05-03-2021 12:05-0500 Body mass index (BMI) [Ratio] 21.77 kg/m2 Carlos Mon LPN [facility] Work Phone: 05-03-2021 12:05-0500 Body surface area Derived from formula 1.53 m2 Carlos Mon LPN [facility] Work Phone: 05-03-2021 12:05-0500 Body weight 53.99 kg Carlos Mon LPN [facility] Work Phone: 01-11-2021 10:44-0400 Body height 157.48 cm Jenn Layne MA [facility] Work Phone: Comment on above: unable to do other vitals- telemed 01-11-2021 10:44-0400 Body mass index (BMI) [Ratio] 21.77 kg/m2 Jenn Layne MA [facility] Work Phone: Comment on above: unable to do other vitals- telemed 01-11-2021 10:44-0400 Body surface area Derived from formula 1.53 m2 Jenn Layne MA [facility] Work Phone: Comment on above: unable to do other vitals- telemed 01-11-2021 10:44-0400 Body temperature 97.1 [degF] Jenn Layne MA [facility] Work Phone: Comment on above: unable to do other vitals- telemed 01-11-2021 10:44-0400 Body weight 53.99 kg Jenn Layne MA [facility] Work Phone: Comment on above: unable to do other vitals- telemed 09-21-2020 11:59-0400 Body height 157.48 cm Carlos Mon LPN [facility] Work Phone: 09-21-2020 11:59-0400 Body mass index (BMI) [Ratio] 21.77 kg/m2 Carlos Mon LPN [facility] Work Phone: 09-21-2020 11:59-0400 Body surface area Derived from formula 1.53 m2 Carlos Mon LPN [facility] Work Phone: 09-21-2020 11:59-0400 Body weight 53.99 kg Carlos Mon LPN [facility] Work Phone: 09-18-2020 13:26-0400 Body height 157.48 cm Carlos Mon LPN [facility] Work Phone: 09-18-2020 13:26-0400 Body mass index (BMI) [Ratio] 21.77 kg/m2 Carlos Mon LPN [facility] Work Phone: 09-18-2020 13:26-0400 Body surface area Derived from formula 1.53 m2 Carlos Mon LPN [facility] Work Phone: 09-18-2020 13:26-0400 Body temperature 97.1 [degF] Carlos Mon LPN [facility] Work Phone: Comment on above: Method: Infrared 09-18-2020 13:26-0400 Body weight 53.99 kg Carlos Mon LPN [facility] Work Phone: 09-18-2020 13:26-0400 Diastolic blood pressure 70 mm[Hg] Carlos Mon LPN [facility] Work Phone: Comment on above: Patient Position: Sitting; Cuff Location : Left Arm; Cuff Size: Standard 09-18-2020 13:26-0400 Heart rate 68 /min Carlos Mon LPN [facility] Work Phone: Comment on above: Pattern: Regular 09-18-2020 13:26-0400 Respiratory rate 16 /min Carlos Mon LPN [facility] Work Phone: Comment on above: Pattern: Unlabored 09-18-2020 13:26-0400 SaO2% (BldA) [Mass fraction] 98 % Carlos Mon LPN [facility] Work Phone: Comment on above: Room air 09-18-2020 13:26-0400 Systolic blood pressure 120 mm[Hg] Carlos Mon LPN [facility] Work Phone: Comment on above: Patient Position: Sitting; Cuff Location : Left Arm; Cuff Size: Standard 06-08-2020 12:55-0500 BMI (Body Mass Index) 21.77 kg/m2 Carlos Mon LPN [facility] Work Phone: 06-08-2020 12:55-0500 Body weight 53.98 kg Carlos Mon LPN [facility] Work Phone: 06-08-2020 12:55-0500 BSA (Body Surface Area) 1.53 m2 Carlos Mon LPN [facility] Work Phone: 06-08-2020 12:55-0500 Height 157.48 cm Carlos Mon LPN [facility] Work Phone: 03-21-2020 10:33-0500 BMI (Body Mass Index) 21.77 kg/m2 Christa Hernandes LPN [facility] Work Phone: Comment on above: will report vitals when [facility] calls 03-21-2020 10:33-0500 Body weight 53.98 kg Christa Hernandes LPN [facility] Work Phone: Comment on above: will report vitals when [facility] calls 03-21-2020 10:33-0500 BSA (Body Surface Area) 1.53 m2 Christa Cecilio PULIDO [facility] Work Phone: Comment on above: will report vitals when [facility] calls 03-21-2020 10:33-0500 Height 157.48 cm Christa Cecilio PULIDO [facility] Work Phone: Comment on above: will report vitals when [facility] calls 02-28-2020 08:00-0500 BMI (Body Mass Index) 21.77 kg/m2 Carlos Mon LPN [facility] Work Phone: 02-28-2020 08:00-0500 BMI (Body Mass Index) 21.59 kg/m2 Clarissa Lima [facility] Internal Medicine Work Phone: 02-28-2020 08:00-0500 Body Temperature 96.8 [degF] Carlos Mon LPN [facility] Work Phone: Comment on above: Method: Infrared 02-28-2020 08:00-0500 Body weight 53.99 kg Carlos Mon LPN [facility] Work Phone: 02-28-2020 08:00-0500 Body weight 53.55 kg Clarissa Lima [facility] Work Phone: 02-28-2020 08:00-0500 BP Diastolic 68 mm[Hg] Carlos Mon LPN [facility] Work Phone: Comment on above: Patient Position: Sitting; Cuff Location : Left Arm; Cuff Size: Standard 02-28-2020 08:00-0500 BP Systolic 110 mm[Hg] Carlos Mon LPN [facility] Work Phone: Comment on above: Patient Position: Sitting; Cuff Location : Left Arm; Cuff Size: Standard 02-28-2020 08:00-0500 BSA (Body Surface Area) 1.53 m2 Carlos Mon LPN [facility] Internal [facility] Work Phone: 02-28-2020 08:00-0500 Height 157.48 cm Carlos Mon LPN [facility] Internal Medicine Work Phone: 02-28-2020 08:00-0500 Pulse (Heart Rate) 68 /min Carlos Mon LPN [facility] Work Phone: Comment on above: Pattern: Regular 02-28-2020 08:00-0500 Pulse Oximetry 98 % Clarissa Amato [facility] Internal [facility] Work Phone: Comment on above: Room air 02-28-2020 08:00-0500 Respiratory Rate 16 /min Carlos Mon LPN [facility] Work Phone: Comment on above: Pattern: Unlabored 02-28-2020 08:00-0500 SaO2% (BldA) [Mass fraction] 98 % Carlos Mon LPN [facility] Work Phone: Comment on above: Room air 01-17-2020 09:01-0400 BMI (Body Mass Index) 21.59 kg/m2 Carlos Mon LPN [facility] Internal Medicine Work Phone: 01-17-2020 09:01-0400 Body Temperature 97.8 [degF] Carlos Mon LPN [facility] Work Phone: Comment on above: Method: Infrared 01-17-2020 09:01-0400 Body weight 53.55 kg Carlos Mon LPN [facility] Work Phone: 01-17-2020 09:01-0400 BP Diastolic 78 mm[Hg] Carlos Mon LPN [facility] Work Phone: Comment on above: Patient Position: Sitting; Cuff Location : Left Arm; Cuff Size: Standard 01-17-2020 09:01-0400 BP Systolic 110 mm[Hg] Carlos Mon LPN [facility] Work Phone: Comment on above: Patient Position: Sitting; Cuff Location : Left Arm; Cuff Size: Standard 01-17-2020 09:01-0400 BSA (Body Surface Area) 1.53 m2 Carlos Mon LPN [facility] Internal [facility] Work Phone: 01-17-2020 09:01-0400 Height 157.48 cm Carlos Mon LPN [facility] Internal [facility] Work Phone: 01-17-2020 09:01-0400 Pulse (Heart Rate) 60 /min Carlos Mon LPN [facility] Work Phone: Comment on above: Pattern: Regular 01-17-2020 09:01-0400 Pulse Oximetry 99 % Clarissa Amato [facility] Work Phone: Comment on above: Room air 01-17-2020 09:01-0400 Respiratory Rate 16 /min Carlos Mon LPN [facility] Work Phone: Comment on above: Pattern: Unlabored 01-17-2020 09:01-0400 SaO2% (BldA) [Mass fraction] 99 % Carlos Mon LPN [facility] Work Phone: Comment on above: Room air Encounters Encounter Date Encounter Type Care Provider Facility Start: 10-27-2024 ambulatory [facility] Facility:[facility] Start: 10-14-2024 End: 10-14-2024 Patient encounter procedure Aziza Thompson PA-C Work Phone: [facility] [place] Comment on above: Nocturnal leg cramps (Primary Dx); Hypertension, essential Start: 10-14-2024 End: 10-17-2024 ambulatory REMY PEREZ Facility:[facility] Comment on above: Refill Request Start: 10-11-2024 End: 10-11-2024 Chart abstracting Remy Perez MD Work Phone: [facility] [place] Comment on above: Received Outside Med [facility] Records (Podiatry OV notes) Start: 10-07-2024 End: 10-07-2024 ambulatory Quoc Mccracken PT Work Phone: [facility] Physical Therapy Comment on above: Plantar fasciitis of right foot (Primary Dx) Start: 09-28-2024 End: 09-28-2024 Office outpatient visit 25 minutes Aziza Thompson PA-C Work Phone: [facility] [place] Comment on above: Nocturnal leg cramps (Primary Dx); RLS (restless legs syndrome); Bradycardia, drug induced; Hyperlipidemia, mixed Start: 09-28-2024 End: 09-28-2024 ambulatory REMY PEREZ Facility:[facility] Start: 09-21-2024 End: 09-21-2024 ambulatory Remy Perez MD Work Phone: [facility] Comment on above: Elevated TSH Start: 09-20-2024 End: 09-20-2024 ambulatory REMY PEREZ Facility:[facility] Start: 09-20-2024 End: 09-20-2024 Chart abstracting Remy Perez MD Work Phone: [facility] Comment on above: Outside [id number] Ordered Start: 09-19-2024 End: 09-19-[address] Remy Perez MD Work Phone: [facility] Work Phone: Start: 09-19-2024 End: 09-19-[address] Bg Goldstein MD -Laboratory Work Phone: Start: 09-19-2024 End: 09-19-[address] Bg Goldstein MD -[facility] Work Phone: Start: 09-19-2024 End: 09-19-[address] Remy Perez MD Work Phone: [facility] Work Phone: Start: 09-19-2024 End: 09-19-2024 ambulatory Bg Goldstein Facility:[facility] Start: 09-14-2024 End: 09-15-2024 Refill Remy Perez MD Work Phone: [facility] Comment on above: Refill Request Start: 08-25-2024 End: 08-25-2024 Office outpatient visit 25 minutes Aziza Thompson PA-C Work Phone: [facility] Comment on above: Essential (primary) hypertension (Primary Dx); Palpitations; Muscle cramp; Generalized anxiety disorder Start: 08-25-2024 End: 08-25-2024 ambulatory REMY PEREZ Facility:[facility] Start: 08-22-2024 End: 08-22-2024 ambulatory Quoc Mccracken PT Work Phone: [facility] Physical Therapy Comment on above: Plantar fasciitis of right foot (Primary Dx) Start: 08-09-2024 End: 08-09-2024 Follow-up encounter Aziza Thompson PA-C Work Phone: [facility] [place] Comment on above: Results Start: 08-08-2024 End: 08-08-2024 ambulatory REMY PEREZ Facility:[facility] Start: 08-08-2024 End: 08-08-2024 Patient encounter procedure Aziza Thompson PA-C Work Phone: [facility] [place] Comment on above: Encounter for Medica re annual wellness exam (Primary Dx); Advance directive discussed with patient; Screening for depression; Hypertension, essential; Encounter for screening examination for other mental health and behavioral disorders; Hyperlipidemia, mixed; Postoperative hypothyroidism; Palpitations; Elevated blood sugar; Plantar fasciitis; RLS (restless legs syndrome); Nocturnal leg cramps; Claudication Start: 08-08-2024 End: 08-08-2024 ambulatory REMY PEREZ Facility:[facility] Start: 08-04-2024 End: 08-04-2024 ambulatory Quoc Mccracken PT Work Phone: [facility] Physical [facility] Comment on above: Plantar fasciitis of right foot (Primary Dx); Lumbar back pain; Spondylosis of lumbar region without myelopathy or radiculopathy Start: 07-20-2024 End: 07-20-2024 ambulatory Remy Perez MD Work Phone: [facility] [place] Start: 07-20-2024 End: 07-20-2024 Patient encounter procedure Remy Perez MD Work Phone: [facility] [place] Comment on above: Re: PT/dry needling referral Start: 07-20-2024 End: 07-25-2024 Telephone encounter Remy Perez MD Work Phone: [facility] [place] Comment on above: Patient Question Start: 07-19-2024 End: 07-22-2024 Follow-up encounter Jarad Paredes MD Work Phone: [facility] [place] Comment on above: Results Start: 07-18-2024 End: 07-18-2024 ambulatory REMY PEREZ Facility:[facility] Start: 07-18-2024 End: 07-18-2024 ambulatory Quoc Mccracken PT Work Phone: [facility] Physical Therapy Comment on above: Plantar fasciitis of right foot Start: 07-18-2024 End: 07-18-2024 Subsequent hospital visit by physician Yakelin Mammo [facility] Comment on above: Encounter for screen ing mammogram for breast cancer [Z12.31] Start: 06-28-2024 End: 06-29-2024 ambulatory Remy Perez MD Work Phone: [facility] [place] Comment on above: Blood pressure Start: 06-21-2024 End: 07-22-2024 ambulatory Rmey Perez MD Work Phone: [facility] [place] Comment on above: Heel injection Start: 06-02-2024 End: 06-02-2024 Patient encounter procedure Remy Perez MD Work Phone: [facility] [place] Comment on above: Plantar fasciitis (P rimary Dx) Start: 06-02-2024 End: 06-02-2024 ambulatory REMY PEREZ Facility:[facility] Start: 05-30-2024 End: 05-30-2024 ambulatory Aziza Thompson PA-C Work Phone: [facility] [employer] Comment on above: Imaging result Start: 05-30-2024 End: 05-30-2024 Follow-up encounter Aziza Thompson PA-C Work Phone: [facility] [place] Start: 05-27-2024 End: 05-30-2024 ambulatory Aziza Thompson PA-C Work Phone: [facility] [place] Comment on above: Imaging results? Start: 05-26-2024 End: 05-26-2024 Subsequent hospital visit by physician Autumn [facility] [place] Work Phone: Radiology Comment on above: Chronic left hip charo n [M25.552, G89.29] Start: 05-26-2024 End: 05-26-2024 ambulatory REMY PEREZ Facility:[facility] Start: 05-26-2024 End: 05-26-2024 Patient encounter procedure Aziza Thompson PA-C Work Phone: [facility] Comment on above: Chronic left hip charo n (Primary Dx); Plantar fasciitis of right foot Start: 05-17-2024 End: 05-17-2024 Refill Remy Perez MD Work Phone: [employer] Comment on above: Refill Request Start: 04-11-2024 End: 04-11-2024 Refill Rosalind Portillo MD Work Phone: [facility] Comment on above: Refill Request Start: 03-27-2024 End: 03-28-2024 Refill Rupinder Goss APRN.INDUSTRIAL INSULATOR Work Phone: [facility] Comment on above: Refill Request Start: 03-24-2024 End: 03-24-2024 ambulatory Quoc Mccracken PT Work Phone: [facility] Physical Therapy Comment on above: Lumbar back pain (Pr imary Dx) Start: 03-10-2024 End: 03-10-2024 ambulatory REMY PEREZ Facility:[facility] Start: 03-10-2024 End: 03-10-2024 Patient encounter procedure Tank Watt APRN.INDUSTRIAL INSULATOR Work Phone: [facility] Comment on above: Sinobronchitis (Prim hakan Dx); Acute cough Start: 02-25-2024 End: 02-25-2024 ambulatory Quoc Mccracken PT Work Phone: [facility] Physical [facility] Comment on above: Lumbar back pain (Pr imary Dx) Start: 02-11-2024 End: 02-11-2024 ambulatory Quoc Mccracken PT Work Phone: [facility] Comment on above: Lumbar back pain (Pr imary Dx) Start: 02-09-2024 End: 02-09-2024 Telephone encounter Aziza Thompson PA-C Work Phone: [facility] Comment on above: Results Start: 02-08-2024 End: 02-08-2024 ambulatory REMY PEREZ Facility:[facility] Start: 02-08-2024 End: 02-08-2024 Patient encounter procedure Aziza Thompson PA-C Work Phone: [facility] [place] Comment on above: Hypertension, essent ial (Primary Dx); Hyperlipidemia, mixed; Elevated blood sugar; Postoperative hypothyroidism; RLS (restless legs syndrome); Encounter for immunization Start: 02-03-2024 End: 02-03-2024 Refill Aziza Thompson PA-C Work Phone: [facility] [place] Comment on above: Refill Request Start: 01-21-2024 End: 01-21-2024 ambulatory Quoc Mccracken PT Work Phone: [place] [facility] Physical Therapy Comment on above: Lumbar back pain; Spondylosis of lumbar region without myelopathy or radiculopathy Start: 01-21-2024 End: 01-21-2024 Patient encounter procedure Remy Perez MD Work Phone: [facility] [place] Comment on above: Physical therapy ref errals Start: 01-07-2024 End: 01-07-2024 E-mail encounter from caregiver [facility] Start: 01-07-2024 End: 01-07-2024 Patient encounter procedure [facility] Comment on above: Instructions from yo ur upcoming appointment Start: 12-24-2023 End: 12-24-2023 ambulatory No Pcp DESIGN DRAFTSMAN [facility] Start: 12-24-2023 End: 12-24-2023 Patient encounter procedure No Pcp DESIGN DRAFTSMAN [facility] Start: 12-23-2023 End: 12-23-2023 Refill Aziza Thompson PA-C Work Phone: [facility] [place] Comment on above: Refill Request Start: 12-22-2023 End: 12-23-2023 ambulatory Aziza Thompson PA-C Work Phone: [facility] [place] Comment on above: My mri results Start: 12-18-2023 End: 12-22-2023 ambulatory Aziza Thompson PA-C Work Phone: [facility] [place] Comment on above: Test results Start: 12-17-2023 End: 12-22-2023 Telephone encounter Aziza Thompson PA-C Work Phone: [facility] [place] Comment on above: Results Start: 12-17-2023 End: 12-17-2023 ambulatory REMY PEREZ Facility:[facility] Start: 12-17-2023 End: 12-17-2023 Subsequent hospital visit by physician Mri Radio [facility] (I-Stat/1.5t) Work Phone: Radiology Comment on above: Radiculopathy of lum bar region [M54.16] Start: 11-19-2023 End: 11-19-2023 ambulatory REMY PEREZ Facility:[facility] Start: 11-19-2023 End: 11-19-2023 Patient encounter procedure Aziza Thompson PA-C Work Phone: [facility] [place] Comment on above: Radiculopathy of lum bar region (Primary Dx); Chronic midline low back pain without sciatica; Decreased reflex Start: 11-11-2023 Refill Rosalind Portillo MD Work Phone: [facility] [place] Comment on above: Refill Request Start: 08-26-2023 End: 08-26-2023 ambulatory Aziza Thompson PA-C Work Phone: [facility] [place] Comment on above: Osteopenia, senile ( Primary Dx) Vit D level Start: 08-26-2023 E-mail encounter fro m caregiver Aziza Thompson PA-C Work Phone: [facility] [place] Start: 08-26-2023 End: 08-26-2023 Telemedicine consultation with patient Aziza Thompson PA-C Work Phone: [facility] [place] Start: 08-17-2023 Telephone encounter Aziza freeman PA-C Work Phone: [facility] [place] Comment on above: Results Start: 08-14-2023 End: 08-14-2023 Subsequent hospital visit by physician Bone Density [facility] Work Phone: Radiology Comment on above: Asymptomatic postmen opausal status [Z78.0] Start: 08-06-2023 Refill Rosalind Portillo MD Work Phone: [facility] [place] Comment on above: Refill Request Start: 08-04-2023 Telephone encounter Aziza Phillip lydia PA-C Work Phone: [facility] [place] Comment on above: Results Start: 07-27-2023 ambulatory Aziza yeung PA-C Work Phone: [facility] [place] Comment on above: TSH question Start: 07-27-2023 Telephone encounter Aziza Phillip thigamal PA-C Work Phone: [facility] [place] Comment on above: Results Start: 07-23-2023 End: 07-23-2023 Patient encounter procedure Azizajodi Thompson PA-C Work Phone: [facility] [place] Comment on above: Encounter for Medica re annual wellness exam (Primary Dx); Advance directive discussed with patient; Postoperative hypothyroidism; Hyperlipidemia, mixed; Hypertension, essential; Primary insomnia; SHAYLA (generalized anxiety disorder); Asymptomatic postmenopausal status; RLS (restless legs syndrome); Elevated blood sugar; Rhinitis, unspecified type Start: 07-03-2023 End: 07-03-2023 Patient encounter procedure Remy Perez MD Work Phone: [facility] [place] Comment on above: Bacterial sinusitis (Primary Dx) Start: 06-26-2023 Refill Remy pope MD Work Phone: [facility] [place] Comment on above: Refill Request Start: 06-24-2023 End: 06-24-2023 Patient encounter procedure Manuel Simpson APRN.INDUSTRIAL INSULATOR Work Phone: [facility] Comment on above: Sinobronchitis (Prim hakan Dx) Refill Request Start: 06-11-2023 End: 06-11-2023 ambulatory Dedra Mcnally APRN.INDUSTRIAL INSULATOR Work Phone: [facility] [place] Comment on above: Bacterial sinusitis (Primary Dx) Start: 06-11-2023 End: 06-11-2023 Telemedicine consultation with patient Dedra Mcnally APRN.INDUSTRIAL INSULATOR Work Phone: [facility] [place] Start: 05-21-2023 Documentation procedure Mammography Coordinator [facility] Start: 05-21-2023 Letter encounter Mammography Coordin [facility] Department Start: 04-19-2023 End: 04-19-2023 ambulatory Sherlyn Frazier GIL Work Phone: Telemedicine Comment on above: Rhinosinusitis (Prim hakan Dx) Start: 04-19-2023 End: 04-19-2023 Telemedicine consultation with patient Sherlyn Frazier GIL Work Phone: [facility] Start: 04-08-2023 End: 04-08-2023 Subsequent hospital visit by physician Autumn [facility] [place] Work Phone: Radiology Comment on above: Acute cough [R05.1] Start: 04-08-2023 End: 04-08-2023 Patient encounter procedure Sophia Jin APRN.INDUSTRIAL INSULATOR Work Phone: [facility] Comment on above: Acute cough (Primary Dx) Start: 02-13-2023 Refill Aziza Danielle on PA-C Work Phone: [facility] Comment on above: Refill Request Start: 02-11-2023 End: 02-11-2023 Subsequent hospital visit by physician Autumn [facility] [place] Work Phone: Radiology Comment on above: Acute pain of both k nees [M25.561, M25.562] Start: 02-11-2023 End: 02-11-2023 Patient encounter procedure Keely Doll APRN.INDUSTRIAL INSULATOR Work Phone: [facility] Comment on above: Acute pain of both k nees (Primary Dx); Muscle pain, cervical Start: 01-29-2023 End: 01-29-2023 Patient encounter procedure Louise Newton PA-C Work Phone: General Surgery Comment on above: Diverticulosis (Prim hakan Dx); Hyperplastic polyp of sigmoid colon; Irregular bowel habits; Abdominal cramping; History of episiotomy; Fecal soiling Start: 01-22-2023 End: 01-22-2023 Subsequent hospital visit by physician Hugh Cole MD Work Phone: Ambulatory Surgery Comment on above: Special screening fo r malignant neoplasms, colon [Z12.11] Start: 01-15-2023 End: 01-15-2023 ambulatory Quoc Mccracken PT Work Phone: [facility] Physical Therapy Comment on above: Fall (on) (from) uns pecified stairs and steps, subsequent encounter (Primary Dx) Start: 12-29-2022 Refill Louise Hayes Work Phone: General Surgery Comment on above: Refill Request Start: 12-26-2022 Telephone encounter Aziza DANIELS-C Work Phone: [facility] [place] Comment on above: Medication Problem Start: 12-25-2022 Telephone encounter Aziza DANIELS-C Work Phone: [facility] [place] Comment on above: Results Start: 12-24-2022 End: 12-24-2022 Patient encounter procedure Aziza Thompson PA-C Work Phone: [facility] [place] Comment on above: Postoperative hypoth yroidism (Primary Dx); Elevated blood sugar; Hypertension, essential; Primary insomnia; Hyperlipidemia, mixed Start: 12-16-2022 End: 12-16-2022 ambulatory Bisi Mcnair DISCOTHEQUE DANCER Work Phone: [facility] Physical Therapy Comment on above: Fall (on) (from) uns pecified stairs and steps, subsequent encounter (Primary Dx) Start: 12-11-2022 End: 12-11-2022 ambulatory Quoc Mccracken PT Work Phone: [facility] Comment on above: Fall (on) (from) uns pecified stairs and steps, subsequent encounter (Primary Dx) Start: 11-28-2022 Get Medical Advice Remy Perez MD Work Phone: [facility] Comment on above: Medication refills Start: 10-14-2022 End: 10-14-2022 ambulatory Quoc Mccracken PT Work Phone: [facility] Physical [facility] Comment on above: Fall (on) (from) uns pecified stairs and steps, subsequent encounter (Primary Dx) Start: 09-23-2022 End: 09-23-2022 ambulatory Bisi Mcnair DISCOTHEQUE DANCER Work Phone: [facility] Comment on above: Fall (on) (from) uns pecified stairs and steps, subsequent encounter (Primary Dx) Start: 08-29-2022 End: 08-29-2022 ambulatory Quoc Mccracken PT Work Phone: [facility] Comment on above: Fall (on) (from) uns pecified stairs and steps, subsequent encounter (Primary Dx) Start: 08-18-2022 End: 08-18-2022 Patient encounter procedure Rupinder Goss APRN.INDUSTRIAL INSULATOR Work Phone: [facility] Comment on above: Fall (on) (from) uns pecified stairs and steps, subsequent encounter (Primary Dx) Start: 07-17-2022 Telephone encounter Rupinder philip APRN.INDUSTRIAL INSULATOR Work Phone: [facility] Comment on above: Results Start: 07-14-2022 End: 07-14-2022 Subsequent hospital visit by physician Xr [facility] Work Phone: Radiology Comment on above: Fall (on) (from) uns pecified stairs and steps, subsequent encounter [W10.9XXD] Start: 07-14-2022 End: 07-14-2022 Patient encounter procedure Rupinder Goss APRN.INDUSTRIAL INSULATOR Work Phone: [facility] Comment on above: Fall (on) (from) uns pecified stairs and steps, subsequent encounter (Primary Dx); Anxiety with fear Start: 07-14-2022 Telephone encounter Angelique CHILEL Work Phone: Adult Psychology Comment on above: Behavioral Health So cial Work Start: 07-07-2022 End: 07-07-2022 Patient encounter procedure Villa Montoya MD Work Phone: Orthopaedics Comment on above: Trochanteric bursiti s of left hip (Primary Dx); Acute pain of right shoulder Start: 07-04-2022 ambulatory Aziza Danielle on PA-C Work Phone: [facility] Comment on above: Pain medication Start: 07-03-2022 Telephone encounter Rupinder philip APRN.INDUSTRIAL INSULATOR Work Phone: [facility] Comment on above: Results Start: 07-02-2022 Chart abstracting Remy allen MD Work Phone: [facility] Comment on above: ER F/U Start: 07-01-2022 End: 07-01-2022 Subsequent hospital visit by physician Xr [facility] [place] Work Phone: Radiology Comment on above: Acute pain of right shoulder [M25.511] Start: 07-01-2022 End: 07-01-2022 Patient encounter procedure Rupinder Goss APRN.INDUSTRIAL INSULATOR Work Phone: [facility] Comment on above: Fall (on) (from) uns pecified stairs and steps, subsequent encounter (Primary Dx); Acute pain of right shoulder Start: 07-01-2022 ambulatory Azizamikhail Millardins on PA-C Work Phone: [facility] Start: 07-01-2022 Follow-up encounter Aziza freeman PA-C Work Phone: [facility] Comment on above: Follow up on Thursday ER visit Start: 06-30-2022 Refill Aziza Millardins on PA-C Work Phone: [facility] Comment on above: Refill Request Start: 06-29-2022 End: 06-29-2022 [facility] Start: 06-27-2022 ambulatory Aziza Laredo on PA-C Work Phone: [facility] Comment on above: Lipitor Start: 06-26-2022 End: 06-26-2022 Patient encounter procedure Louise Newton PA-C Work Phone: General Surgery Comment on above: Screening for colon cancer Start: 06-22-2022 ambulatory Aziza Laredo on PA-C Work Phone: [facility] Comment on above: Ear pain Start: 06-20-2022 ambulatory Aziza yeung PA-C Work Phone: [facility] Comment on above: Creatinine/bloodwork question Start: 06-19-2022 End: 06-19-2022 Subsequent hospital visit by physician Autumn [facility] [place] Work Phone: Radiology Comment on above: Positive ESTELLA (antinu clear antibody) [R76.8] Start: 06-19-2022 End: 06-19-2022 Patient encounter procedure Aziza KUMARC Work Phone: [facility] Comment on above: Encounter for Medica re annual wellness exam (Primary Dx); Advanced care planning/counseling discussion; Hyperlipidemia, mixed; Hypertension, essential; Postoperative hypothyroidism; Elevated blood sugar; RLS (restless legs syndrome); Screening for colon cancer; Primary insomnia; Encounter for gynecological examination without abnormal finding Start: 06-19-2022 End: 06-19-2022 Patient encounter status Aziza Thompson PA-C Work Phone: [facility] Start: 06-09-2022 Telephone encounter Aziza DANIELS-C Work Phone: [facility] Comment on above: Results Start: 06-05-2022 End: 06-05-2022 Subsequent hospital visit by physician Tali [facility] (I-Stat) Work Phone: Cat Scan Comment on above: Bone lesion [M89.9] Start: 05-21-2022 End: 05-21-2022 ambulatory Jeyson Head [facility] Physical [facility] Comment on above: Lumbar back pain (Pr imary Dx) Start: 05-19-2022 Telephone encounter Aziza DANIELS-C Work Phone: [facility] Comment on above: Results Start: 05-16-2022 End: 05-16-2022 Subsequent hospital visit by physician Autumn [facility] [place] Work Phone: Radiology Comment on above: Lumbar back pain [M5 4.50] Start: 05-16-2022 End: 05-16-2022 Office outpatient visit 25 minutes Aziza Thompson PA-C Work Phone: [facility] Comment on above: Lumbar back pain (Pr imary Dx) Start: 05-07-2022 Telephone encounter Genie sutherland MD Work Phone: [facility] [place] Comment on above: Follow Up Start: 04-24-2022 Get Medical Advice Remy Perez MD Work Phone: [facility] Comment on above: Medication refills Start: 04-04-2022 End: 04-04-2022 Patient encounter procedure Remy Perez MD Work Phone: [facility] Comment on above: Bacterial sinusitis (Primary Dx) Start: 03-28-2022 End: 03-28-2022 Patient encounter procedure Genie Quispe MD Work Phone: Rheumatology Comment on above: Positive ESTELLA (antinu clear antibody) (Primary Dx); Left upper extremity numbness; Left hand pain; Left hand weakness; Sicca syndrome (HCC); Malaise and fatigue; Pain in joint, multiple sites; Encounter for screening for osteoporosis Start: 02-21-2022 End: 02-21-2022 Admission to same day surgery center [facility] Start: 02-21-2022 End: 02-21-2022 ambulatory [facility] Work Phone: Start: 02-17-2022 ambulatory Remy pope MD Work Phone: [facility] Comment on above: Tramadol Start: 02-15-2022 Refill Remy pope MD Work Phone: [facility] Comment on above: Refill Request Start: 02-13-2022 ambulatory Aziza DANIELS-C Work Phone: [facility] Comment on above: shoulder pain Start: 01-31-2022 Telephone encounter Remy Perez MD Work Phone: [facility] Comment on above: Results Referral Information Refill Request Start: 01-28-2022 Telephone encounter Aziza KUMARC Work Phone: [facility] Comment on above: Results Start: 01-27-2022 End: 01-27-2022 Patient encounter procedure Aziza Thompson PA-C Work Phone: [facility] [place] Comment on above: Preop examination (P rimary Dx); Neuroma of foot; Hypertension, essential; Postoperative hypothyroidism; Elevated blood sugar; Encounter for lipid screening for cardiovascular disease; Need for influenza vaccination; Need for vaccination Start: 01-27-2022 End: 01-27-2022 Preprocedural examination done Aziza Thompson PA-C Work Phone: [facility] [place] Start: 01-15-2022 ambulatory REMY PEREZ Facili ty:[facility] Start: 01-15-2022 End: 01-15-2022 Subsequent hospital visit by physician Screen/Diagnostic Mammo 2 [facility] Work Phone: Mammography Comment on above: Encounter for screen ing mammogram for breast cancer [Z12.31] Start: 01-15-2022 Documentation procedure Mammography Coordinator [facility] Start: 01-15-2022 Letter encounter Mammography Coordin ator [facility] Department Start: 01-15-2022 Telephone encounter Remy Perez MD Work Phone: [facility] [place] Comment on above: Results Start: 01-11-2022 Refill Remy pope MD Work Phone: [facility] [place] Comment on above: Refill Request Start: 01-02-2022 Telephone encounter Remy Perez MD Work Phone: [facility] [place] Comment on above: Blood Pressure Check Start: 01-02-2022 End: 01-02-2022 Nursing evaluation of patient and report Mi Nurse Work Phone: Family [facility] [place] Comment on above: Hypertension, essent ial (Primary Dx) Start: 12-27-2021 ambulatory Remy pope MD Work Phone: [facility] [place] Comment on above: Ongoing pain Start: 12-26-2021 Telephone encounter Remy Perez MD Work Phone: [facility] [place] Comment on above: Results (EMG) Start: 12-25-2021 End: 12-25-2021 ambulatory [facility] Work Phone: Start: 12-25-2021 End: 12-25-2021 Patient encounter procedure [facility]Pulmonary Services/Neurology Start: 12-19-2021 ambulatory Remy pope MD Work Phone: [facility] Comment on above: Blood pressure numbe rs Start: 12-18-2021 End: 12-18-2021 Patient encounter procedure Remy Perez MD Work Phone: [facility] Comment on above: Left upper extremity numbness; Left hand pain; Left arm pain; Left hand weakness; Numbness and tingling of left upper extremity Start: 11-30-2021 ambulatory Aziza yeung PA-C Work Phone: [facility] Comment on above: Question/request for Rx Start: 11-25-2021 Telephone encounter Aziza KUMARC Work Phone: [facility] Comment on above: Results Start: 11-22-2021 ambulatory Remy pope MD Work Phone: [facility] Start: 11-22-2021 Telephone encounter Aziza freeman PA-C Work Phone: [facility] Comment on above: Results Need prescription re fills Start: 11-21-2021 ambulatory Remy pope MD Work Phone: [facility] Comment on above: Nerve study Start: 11-21-2021 End: 11-21-2021 Subsequent hospital visit by physician Xr [facility] [place] Work Phone: Radiology Comment on above: Left hand weakness [ R29.898] Start: 11-21-2021 End: 11-21-2021 Patient encounter procedure Aziza Thompson PA-C Work Phone: [facility] [place] Comment on above: Left hand weakness ( Primary Dx); Left hand pain; Positive ESTELLA (antinuclear antibody); Numbness and tingling in left hand; Left arm pain; Numbness and tingling of left upper extremity Start: 11-20-2021 ambulatory Remy pope MD Work Phone: [facility] [place] Start: 11-06-2021 ambulatory Remy pope MD Work Phone: [facility] [place] Comment on above: Physical therapy Start: 11-04-2021 End: 11-04-2021 Subsequent hospital visit by physician Autumn [facility] [place] Work Phone: Radiology Comment on above: Left arm pain [M79.6 02] Start: 11-04-2021 Telephone encounter Remy Perez MD Work Phone: [facility] [place] Comment on above: Results Start: 11-02-2021 ambulatory Remy pope MD Work Phone: [facility] [place] Comment on above: Nerve pain Start: 11-01-2021 End: 11-01-2021 Patient encounter procedure Remy Perez MD Work Phone: Family [facility] [place] Comment on above: Left arm pain (Prima ry Dx); Left hand weakness; Numbness and tingling of left upper extremity; Upper back pain Start: 10-14-2021 End: 10-14-2021 Patient encounter procedure Clarissa Amato Work Phone: [facility] Start: 10-14-2021 Review Clarissa Amato Work Phone: [facility] Start: 10-12-2021 End: 10-12-2021 Emergency department patient visit COUNTY AGENT-C Clarissa Amato COUNTY AGENT Work Phone: [facility]-Emergency Department Start: 10-11-2021 End: 10-11-2021 Annotation/Addendum Clarissa Hanselbereket Work Phone: [facility] Start: 08-11-2021 End: 08-11-2021 Patient encounter procedure COUNTY AGENT-C Clarissa Amato COUNTY AGENT Work Phone: [facility] Start: 06-18-2021 End: 06-18-2021 Office outpatient visit 15 minutes Clarissa Amato INDUSTRIAL INSULATOR Work Phone: [facility] Start: 05-03-2021 End: 05-03-2021 Annotation/Addendum Clarissa Amato INDUSTRIAL INSULATOR Work Phone: [facility] Start: 05-03-2021 Review Clarissa Amato INDUSTRIAL INSULATOR Work Phone: [facility] Start: 05-03-2021 End: 05-03-2021 Office outpatient visit 15 minutes Clarissa Amato INDUSTRIAL INSULATOR Work Phone: [facility] Start: 03-26-2021 Review Clarissa Amato INDUSTRIAL INSULATOR Work Phone: [facility] Start: 01-11-2021 End: 01-11-2021 Office outpatient visit 10 minutes Clarissa Amato INDUSTRIAL INSULATOR Work Phone: [facility] Start: 12-17-2020 End: 12-17-2020 Annotation/Addendum Clarissa Amato INDUSTRIAL INSULATOR Work Phone: [facility] Start: 09-21-2020 End: 09-21-2020 Office outpatient visit 10 minutes Clarissa Amato INDUSTRIAL INSULATOR Work Phone: [facility] Start: 09-18-2020 End: 09-18-2020 Office outpatient visit 15 minutes Clarissa Amato INDUSTRIAL INSULATOR Work Phone: [facility] Start: 06-08-2020 End: 06-08-2020 Office outpatient visit 15 minutes Clarissa Amato [facility] Start: 05-01-2020 End: 05-01-2020 Annotation/Addendum Clarissa Amato [facility] Start: 03-21-2020 End: 03-21-2020 Office outpatient visit 25 minutes Clarissa Lima [facility] Start: 02-28-2020 End: 02-28-2020 Office outpatient visit 25 minutes Clarissa Amato [facility] Start: 02-28-2020 Review Clarissa Amato [facility] Start: 01-17-2020 Review Clarissa Amato [facility]prehens [facility] Start: 01-17-2020 End: 01-13-2020 Annotation/Addendum Clarissa Amato [facility] Start: 01-17-2020 End: 01-17-2020 Office outpatient new 45 minutes Clarissa Ruizgood [facility] Procedures Date Procedure Procedure Detail Performing Clinician Start: 09-28-2024 Follow-up visit Follow Up AZIZA THOMPSON Start: 09-19-2024 Thyrotropin [Units/volume] in Serum or Plasma [facility] Provider Start: 08-08-2024 Adult depression screening assessment Aziza Jay VELIZ Work Phone: Start: 08-08-2024 Lipid 1996 panel - Serum or Plasma Aziza Jay VELIZ Work Phone: Start: 02-08-2024 Lipid 1995 panel - Serum or Plasma Aziza Jay VELIZ Work Phone: Start: 12-17-2023 Mri spinal canal lumbar w/o contrast material Aziza Jay VELIZ Work Phone: Start: 07-24-2023 Lipid 1996 panel - Serum or Plasma Aziza Jay VELIZ Work Phone: Start: 07-23-2023 Adult depression screening assessment Rosalind Portillo MD Work Phone: Start: 04-08-2023 COVID & INFLUENZA A/B & RSV NAAT, ROUTINE Sophia Jin DESIGN DRAFTSMAN.INDUSTRIAL INSULATOR Work Phone: Start: 04-08-2023 Radiologic exam chest 2 views Sophia Jin DESIGN DRAFTSMAN.INDUSTRIAL INSULATOR Work Phone: Start: 02-11-2023 Radiologic exam knee complete 4/more views Keely Doll DESIGN DRAFTSMAN.INDUSTRIAL INSULATOR Work Phone: Start: 01-22-2023 Level iv surg pathology gross&microscopic exam Hugh Cole MD Work Phone: Start: 01-22-2023 Colonoscopy flx dx w/collj spec when pfrmd Louise Newton PA-C Work Phone: Start: 01-22-2023 Colonoscopy Louise Newton PA-C Work Phone: Start: 12-24-2022 Lipid 1995 panel - Serum or Plasma Quoc Mccracken PT Work Phone: Start: 07-14-2022 Radex spine lumbosacral 2/3 views Rupinder Goss DESIGN DRAFTSMAN.INDUSTRIAL INSULATOR Work Phone: Start: 07-01-2022 Radex shoulder complete minimum 2 views Rupinder Goss APRN.INDUSTRIAL INSULATOR Work Phone: Start: 06-29-2022 Computed tomography of abdomen and pelvis with intravenous contrast Start: 06-29-2022 Plain x-ray of pelvis and lower extremity Start: 06-29-2022 CT cervical spine without contrast Start: 06-29-2022 CT of head without contrast Start: 06-29-2022 Radiologic examination of knee Start: 06-29-2022 X-ray of chest posteroanterior view Start: 06-29-2022 X-ray of lumbosacral spine Start: 06-19-2022 Radex hip unilateral with pelvis 2-3 views Genie Quispe MD Work Phone: Start: 06-05-2022 Ct pelvis w/o contrast material Aziza Thompson PA-C Work Phone: Start: 05-16-2022 Radex spine lumbosacral 2/3 views Aziza Thompson PA-C Work Phone: Start: 02-21-2022 Excision Start: 01-27-2022 INFLUENZA SEASONAL QUADRIVALENT HIGH DOSE AGE 65+ Aziza Thompson PA-C Work Phone: Start: 01-15-2022 End: 01-15-2022 Screening mammography bi 2-view breast inc cad Bulk Order Provider Start: 11-21-2021 Radex hand minimum 3 views Aziza Thompson PA-C Work Phone: Start: 11-21-2021 Adult depression screening assessment Aziza Thompson PA-C Work Phone: Start: 11-04-2021 Radex spine cervical 4 or 5 views Remy Perez MD Work Phone: Start: 10-12-2021 End: 10-12-2021 Emergency Department Summary Comments: See Note; NOTES: [facility] Medical Records Department [address] [place] [address] Emergency Department Summary 10/12/21 MR#: [id number] Acct: [id number] Name: MARENLILLIAN REDDY Rep #: [id number] : [id number] From: Genie Dumont MD PCP: MARGUERITE Sebastian Status:DEP ER Location: ED HPI History of Present Illness Chief Complaint: Nausea/Vomiting Informant: patient Onset/Context/Timing Onset: Yesterday Context: Gradual Onset Current Severity: Mild Maximum Severity: Moderate Narrative Narrative: Patient presents with nausea and vomiting as well as muscle cramps. She tested positive for COVID yesterday after waking yesterday morning with mild symptoms. They progressed throughout the day. Her had been diagnosed with COVID earlier in the week. She states her doctor called in a prescription for Paxlovid. After taking the first dose she developed nausea and vomiting. She complains of a headache and myalgias. She has had a temperature up to mid 99 range. No diarrhea. [facility] Medical History Anxiety Back pain Breast lump GERD (gastroesophageal reflux disease) Headache Hyperlipidemia Hypernatremia Hypertension Hypoglycemia IBS (irritable bowel syndrome) Postoperative primary hypothyroidism Seasonal allergies UTI (urinary tract infection) Home Medications cholecalciferol (vitamin D3) 25 mcg (1,000 unit) capsule 25 mcg PO DAILY 10/25/20 [History Last Taken Unknown] diphenhydramine HCl 25 mg tablet (Benadryl Allergy) 25 mg PO .prn PRN Headache 10/25/20 [History Last Taken Unknown] gabapentin 300 mg capsule 300 mg PO QHS 10/25/20 [History Last Taken Unknown] ibuprofen 400 mg tablet 400 mg PO Q8H PRN Pain 10/25/20 [History Last Taken Unknown] levothyroxine 88 mcg tablet 88 mcg PO DAILY 10/25/20 [History Last Taken Unknown] trazodone 50 mg tablet 150 mg PO QHS 10/25/20 [History Last Taken Unknown] alprazolam 0.5 mg tablet (Xanax) 0.5 mg PO .as needed for flying #7 tabs 12/14/20 [Rx Last Taken Unknown] losartan 25 mg tablet 25 mg PO DAILY #30 tabs 06/26/21 [Rx Last Taken Unknown] benzonatate 200 mg capsule 200 mg PO TID PRN cough #30 caps 08/11/21 [Rx Last Taken Unknown] Allergy/AdvReac Type Severity Reaction Status Date / Time amoxicillin [From Augmentin] AdvReac Intermediate diarrhea Verified 10/12/21 14:52 clavulanic acid AdvReac Intermediate diarrhea Verified 10/12/21 14:52 [From Augmentin] Family History Grandmother Anxiety Diabetes High cholesterol CVA (cerebral vascular accident) Mother Cancer Father Depression Hypertension Kidney disease Sister Depression Hypertension Brother Depression Aunt Ovarian cancer Grandfather Myocardial infarction Surgical History H/O dilation and curettage H/O removal of cyst H/O shoulder surgery H/O spinal fusion H/O thyroidectomy Social History Smoking Status: Never smoker alcohol intake: current alcohol intake frequency: a few times a week substance use type: does not use what type of physical activity do you participate in: walking ROS ROS ED Constitutional Constitutional ED: Denies chills or fever(s) Eyes Eyes: Denies change in vision or discharge from eye(s) ENT ENT ED: Denies discharge from eye(s), rhinorrhea or sore throat Cardiovascular Cardiovascular: Denies chest pain or palpitations Respiratory/Chest Respiratory/Chest: Reports cough; Denies dyspnea Gastrointestinal Gastrointestinal: Reports nausea and vomiting; Denies diarrhea Genitourinary Genitourinary ED: Denies difficulty urinating or dysuria Musculoskeletal Musculoskeletal: Reports myalgias Integumentary Denies Abrasions or rash Neurologic Neurologic: Reports headache(s) and weakness Allergic/Immunologic Allergic/Immunologic ED: Denies lip swelling or urticaria EXAM Physical Exam Const Vital Signs: 10/12/21 14:50 Temperature 97.9 F Temperature Source Temporal Pulse Rate 77 Respiratory Rate 16 Blood Pressure 158/106 H Blood Pressure Mean 123 Pulse Ox 98 Oxygen Delivery Method Room Air Positive well nourished and well developed General Appearance ED: well developed HEENT Reports normocephalic and head/scalp atraumatic Eyes PERRL and EOMs intact bilaterally Neck supple Chest Wall inspection of chest normal and palpation of chest normal Resp normal respiratory effort and clear to auscultation bilaterally Cardio regular rate and regular rhythm GI non-tender and non-distended Auscultation: hypoactive bowel sounds Palpation: soft Extremity normal to inspection Neuro oriented x3 and no sensory deficits noted Sensorium / Orientation: alert Motor Exam: strength 5/5 throughout Psych mental status grossly normal Skin no rashes or lesions noted MDM MDM MDM Narrative Medical decision making narrative: Patient given IV fluids along with Toradol, Reglan, Benadryl. Lab work obtained. Lab Data Attestation: I reviewed the patient's lab results. Labs: Laboratory Results - last 24 hr 10/12/21 10/12/21 16:18 16:18 WBC 4.9 RBC 4.28 Hgb 13.5 Hct 39.8 MCV 93.0 MCH 31.5 MCHC 33.9 RDW Std Deviation 41.5 RDW Coeff of Kaitlynn 12.1 Plt Count 181 MPV 10.7 Immature Gran % (Auto) 0.600 Neut % (Auto) 76.7 H Lymph % (Auto) 9.5 L Rosebud % (Auto) 12.8 H Eos % (Auto) 0.0 Baso % (Auto) 0.4 Absolute Neuts (auto) 3.7 Absolute Lymphs (auto) 0.46 L Nucleated RBC % 0 Differential Comment SCANNED Sodium 134 L Potassium 3.6 Chloride 101 Carbon Dioxide 24.0 Anion Gap 9 BUN 10 Creatinine 0.82 Estim Creat Clear Calc 54.82 Est GFR (MDRD) Af Amer 91 Est GFR (MDRD) Non-Af 75 BUN/Creatinine Ratio 12.3 Glucose 115 H Calcium 8.3 L Total Bilirubin 0.30 Direct Bilirubin 0.14 AST 21 ALT 26 Alkaline Phosphatase 74 Total Protein 7.4 Albumin 4.0 Globulin 3.4 Treatment and Re-Evaluation Narrative: On repeat evaluation patient reports feeling much improved. Lab work is unremarkable. She has Zofran at home that she can use as needed for nausea. She states she does not plan to take Paxlovid any further. She will continue with supportive care and return instructions are provided. Discharge Plan Triage Chief Complaint: Nausea/Vomiting ED Provider: Genie Dumont Dx/Rx/DC Orders Clinical Impression: COVID-19, Vomiting, Headache Instructions: Coronavirus Disease 2019 (COVID-19): Overview, Coronavirus Disease 2019 (COVID-19): Caring for Yourself or Others Prescriptions: No Action gabapentin 300 mg capsule 300 mg PO QHS trazodone 50 mg tablet 150 mg PO QHS levothyroxine 88 mcg tablet 88 mcg PO DAILY diphenhydramine HCl [Benadryl Allergy] 25 mg tablet 25 mg PO .prn PRN (Reason: Headache) cholecalciferol (vitamin D3) 25 mcg (1,000 unit) capsule 25 mcg PO DAILY ibuprofen 400 mg tablet 400 mg PO Q8H PRN (Reason: Pain) alprazolam [Xanax] 0.5 mg tablet 0.5 mg PO .as needed for flying Qty: 7 0RF benzonatate 200 mg capsule 200 mg PO TID PRN (Reason: cough) Qty: 30 0RF losartan 25 mg tablet 25 mg PO DAILY Qty: 30 5RF Primary Care Provider: Clarissa Amato NP Referrals: Clarissa Amato NP, COUNTY [facility] [Primary Care Provider] - 1-2 Weeks Disposition Disposition: Home, Self Care Discharge Date/Time: 10/12/21 17:52 What to do if you have Problems For any increased pain, shortness of breath, bleeding, nausea or vomiting, chest pain, or any unexpected problems, contact your Primary Care Provider. Call [facility] ([phone]) or report to the closest Emergency Room. Call 911 if necessary. 10/12/212004 <Electronically signed by Genie Dumont MD> Cosigner Signature (if applicable): CC: MARGUERITE Amato Signed Clarissa Amato Work Phone: Start: 08-11-2021 End: 08-11-2021 Urgent Care Visit Report Comments: See Note; NOTES: [facility] [address] [place] [address] OFFICE VISIT Date of Service: 08/11/21 MR#: [id number] Acct: [id number] Name: MARENLILLIAN LOUIS Rep #: [id number] : 1955 Provider: MARGUERITE matthews Age/Sex: 65/F Location: [facility] Status: Signed Intake Vital Signs 08/11/21 13:25 Height 5 ft 3 in Weight: 122 lb BMI 21.6 BP 160/80 H Blood Pressure Location Lt brachial Position Sitting Respiration 15 Pulse 75 Pulse Source Monitor Temp 98.9 F Temp Source Temporal Pulse Oximetry (%) 99 Oxygen Delivery Method room air Intake Visit Reasons: SINUS/COUGHING Allergies amoxicillin [From Augmentin] Adverse Reaction (Intermediate, Verified 08/11/21 13:26) diarrhea clavulanic acid [From Augmentin] Adverse Reaction (Intermediate, Verified 08/11/21 13:26) diarrhea Medications cholecalciferol (vitamin D3) 25 mcg (1,000 unit) capsule 25 mcg PO DAILY 10/25/20 [History Confirmed 08/11/21] diphenhydramine HCl 25 mg tablet 25 mg PO .prn PRN tab 10/25/20 [History Confirmed 08/11/21] gabapentin 300 mg capsule 300 mg PO QHS 10/25/20 [History Confirmed 08/11/21] ibuprofen 400 mg tablet 400 mg PO Q8H PRN 10/25/20 [History Confirmed 08/11/21] levothyroxine 88 mcg tablet 88 mcg PO DAILY 10/25/20 [History Confirmed 08/11/21] trazodone 50 mg tablet 150 mg PO QHS tab 10/25/20 [History Confirmed 08/11/21] alprazolam 0.5 mg tablet 0.5 mg PO .as needed for flying #7 tab 12/14/20 [Rx Confirmed 08/11/21] losartan 25 mg tablet 25 mg PO DAILY #30 tab 06/26/21 [Rx Confirmed 08/11/21] amoxicillin 875 mg tablet 875 mg PO Q12H 5 Days #10 tab 08/11/21 [Rx Confirmed 08/11/21] benzonatate 200 mg capsule 200 mg PO TID PRN #30 cap 08/11/21 [Rx Confirmed 08/11/21] PFSH Medical History Anxiety Back pain Breast lump GERD (gastroesophageal reflux disease) Headache Hyperlipidemia Hypernatremia Hypertension Hypoglycemia IBS (irritable bowel syndrome) Postoperative primary hypothyroidism Seasonal allergies UTI (urinary tract infection) Surgical History H/O dilation and curettage H/O removal of cyst H/O shoulder surgery H/O spinal fusion H/O thyroidectomy Family History Grandmother Anxiety Diabetes High cholesterol CVA (cerebral vascular accident) Mother Cancer Father Depression Hypertension Kidney disease Sister Depression Hypertension Brother Depression Aunt Ovarian cancer Grandfather Myocardial infarction Social History Smoking Status: Never smoker alcohol intake: current alcohol intake frequency: a few times a week substance use type: does not use what type of physical activity do you participate in: walking HPI HPI Details: LILLIAN VELAZQUEZ, is a 65 F who presents to the office today for illness. Started with cold symptoms about a week ago, noticed improvement then last day or so worsening nasal congestion, sinus pressure, tooth pain, headache. Ongoing cough, dry. Denies fever. Took 2 home COVID test, both negative. ROS Const Constitutional: Positive for fatigue and headache(s); No body ache, chills or fever(s) Eyes Eyes: No change in vision ENT ENT: Positive for nasal congestion, sinus pressure, nasal discharge, post nasal drip, headache(s) and facial pain; No ear or mastoid pain, ear discharge, dizziness/vertigo or sore throat Resp Respiratory: Positive for cough Cough: Yes non-productive; No shortness of breath Cardio Cardiology: No chest pain at rest Gastro GI: No diarrhea or vomiting Neuro Neurology: Positive for headache(s) Endo Endocrine: Positive for fatigue Cody/Lymp Hematologic/Lymphatic: No enlarged lymph nodes Exam Const General: cooperative, no acute distress and well hydrated Nutritional Appearance: average body habitus Orientation: alert [facility] Head: normal to inspection Ears: hearing grossly normal bilaterally and TM's normal bilaterally Nose: external nose normal Face and sinus: no erythema, no edema and sinus tenderness frontal and maxillary Mouth: oral mucosae normal Throat: posterior oropharynx normal Eyes Eyelids: eyelids normal Pupils: PERRL EOM: EOM intact bilaterally Neck Neck: normal visual inspection Lymphatic: no lymphadenopathy noted Resp Effort Inspection: normal respiratory effort Auscultation: Bilateral: Clear to Auscultation Cardio Rate: regular rate Rhythm: regular rhythm Coding Level of Care Code Off vis,est,level 3 Diagnoses Sinusitis J01.90 Chronicity: acute Sinusitis location: unspecified location Recurrence: not specified as recurrent Cough R05.9 Assessment and Plan Assessment and Plan (1) Sinusitis: Status: Acute Qualifiers: Chronicity: acute Sinusitis location: unspecified location Recurrence: not specified as recurrent Qualified Code(s): J01.90 - Acute sinusitis, unspecified (2) Cough: Status: Acute Medications: New: amoxicillin 875 mg PO Q12H 5 days 10 tabs 0RF J01.90 benzonatate 200 mg PO TID PRN 30 caps 0RF cough R05.9 08/11/21 1343 <Electronically signed by Krystal Kwong [facility]> Date Krystal Kwong [facility] Cosigner Signature: Date (if applicable) CC: Clarissa Amato Work Phone: Start: 2020 End: 12-17-2020 Endocrinology Visit Report Comments: See Note; NOTES: [facility] [address] [place] [address]. [address] [place] [address] OFFICE VISIT Date of Service: 12/14/20 MR#: [id number] Acct: [id number] Name: LILLIAN VELAZQUEZ Rep #: [id number] : 1955 Provider: Jairo Ba Age/Sex: 65/F Location[place] [facility] [place] Status: Signed Intake Vital Signs 12/14/20 14:55 Height 5 ft 2 in Weight: 122 lb 2 oz BMI 22.3 BP 122/80 H Blood Pressure Location Lt brachial Position Sitting Respiration 16 Pulse 64 Pulse Source Monitor Temp 97.9 F Temp Source Temporal Pulse Oximetry (%) 99 Oxygen Delivery Method room air Intake Visit Reasons: [id number] MA[facility] Registered Representative Required: No Accompanied by: Self Is patient in pain?: No Allergies amoxicillin [From Augmentin] Adverse Reaction (Intermediate, Verified 12/14/20 15:00) diarrhea clavulanic acid [From Augmentin] Adverse Reaction (Intermediate, Verified 12/14/20 15:00) diarrhea Medications cholecalciferol (vitamin D3) 25 mcg (1,000 unit) capsule 25 mcg PO DAILY 10/25/20 [History Confirmed 10/25/20] diphenhydramine HCl 25 mg tablet 25 mg PO .prn PRN tab 10/25/20 [History Confirmed 10/25/20] gabapentin 300 mg capsule 300 mg PO QHS 10/25/20 [History Confirmed 10/25/20] ibuprofen 400 mg tablet 400 mg PO Q8H PRN 10/25/20 [History Confirmed 10/25/20] levothyroxine 88 mcg tablet 88 mcg PO DAILY 10/25/20 [History Confirmed 10/25/20] trazodone 50 mg tablet 150 mg PO QHS tab 10/25/20 [History Confirmed 10/25/20] alprazolam 0.5 mg tablet 0.5 mg PO .as needed for flying #7 tab 12/14/20 [Rx Confirmed 12/14/20] losartan 25 mg tablet 25 mg PO DAILY #30 tab 12/14/20 [Rx Confirmed 12/14/20] PFSH Medical History (Updated 12/17/20 @ 07:[address] César Simpson MD) Anxiety Back pain Breast lump GERD (gastroesophageal reflux disease) Headache Hyperlipidemia Hypernatremia Hypertension Hypoglycemia IBS (irritable bowel syndrome) Postoperative primary hypothyroidism Seasonal allergies UTI (urinary tract infection) Surgical History H/O dilation and curettage H/O removal of cyst H/O shoulder surgery H/O spinal fusion H/O thyroidectomy Family History Grandmother Anxiety Diabetes High cholesterol CVA (cerebral vascular accident) Mother Cancer Father Depression Hypertension Kidney disease Sister Depression Hypertension Brother Depression Aunt Ovarian cancer Grandfather Myocardial infarction Social History Smoking Status: Never smoker alcohol intake: current alcohol intake frequency: a few times a week substance use type: does not use what type of physical activity do you participate in: walking HPI HPI Details: LILLIAN VELAZQUEZ, is a 65 F who presents to the office today for evaluation and management of thyroid disease. She reports that she presented in October, with goiter and compression symptoms. She had thyroidectomy in September,. Pathology revealed lymphocytic thyroiditis. She then moved to [place] from [place] and her was diagnosed with cancer. She states she originally felt improved after the surgery but now feels terrible. Symptoms include: fatigue, brain fog, anxiety, depression, forgetfulness, IBS symptoms. She is frustrated that everyone tells her that her thyroid levels are normal when she feels so terrible. She also complains of chronic cough. She has been on Lisinopril for the past year or so. Exam Const General: cooperative, healthy appearing, comfortable, no acute distress, well developed and not cushingoid Nutritional Appearance: well nourished Orientation: alert, awake and oriented x3 HENMT Head: normal to inspection Ears: hearing grossly normal bilaterally Nose: external nose normal Mouth: oral mucosae normal Eyes General: appearance normal, both eyes and all related structures Alignment and Position: alignment normal Periorbital: periorbital findings normal Eyelids: eyelids normal Conjunctivae: conjunctivae normal Neck Neck: normal visual inspection Neck mass: No Thyroid: other (thyroidecomy scar well healed, no palp tissue) Carotids: no bruits Lymphatic: no lymphadenopathy noted Chest Chest palpation inspection: normal inspection of the chest Resp Effort Inspection: normal respiratory effort, able to speak in complete sentences, symmetric chest movement, no audible wheezes and no cough Auscultation: Bilateral: Clear to Auscultation Cardio Rate: regular rate Rhythm: regular rhythm Pulses: posterior tibial pulses present GI Inspection: normal to inspection Auscultation: normal bowel sounds Palpation: soft and no hepatosplenomegaly Skin General: no rashes or lesions noted Neuro General: patient alert, patient awake and patient oriented x3 Cranial Nerves: CN's II-XI intact bilaterally Cognition: normal cognition Speech: speech normal Gait: normal gait Motor: muscle tone normal throughout Extrem General: no edema Psych Appearance: grossly normal Mental Status: mental status grossly normal Mood: congruent mood Affect: normal affect Speech and Movement: speech and movement normal Attitude: cooperative Thought Process: normal Thought Content: normal Judgment: judgment good Coding Level of Care Code Off vis,new,level 5 Diagnoses Postoperative primary hypothyroidism E89.0 GERD (gastroesophageal reflux disease) K21.9 Esophagitis presence: esophagitis presence not specified IBS (irritable bowel syndrome) K58.2 Irritable bowel syndrome type: with both diarrhea and constipation Anxiety F41.9 Hypertension I10 Hypertension type: primary hypertension Assessment and Plan Assessment and Plan (1) Postoperative primary hypothyroidism: Status: Acute Plan - Dr. César Simpson MD: I explained to her that I am not convinced that her original symptoms were from her goiter. She has classic globus which is a symptom of anxiety, and she is under a lot of stress. I explained the difference between thyroid symptoms and hypothyroidism. Take levothyroxine on an empty stomach with water at least four hours after eating. Then wait 30-60 minutes before consuming any other food or beverage, especially coffee. Separate levothyroxine from vitamins by at least 4 hours. Stop taking any biotin supplement 4 days prior to having labs drawn. (2) GERD (gastroesophageal reflux disease): Status: Acute Qualifiers: Esophagitis presence: esophagitis presence not specified Qualified Code(s): K21.9 - Gastro- esophageal reflux disease without esophagitis Plan - Dr. César Simpson MD: She stopped her GERD therapy and I encouraged her to restart it. (3) IBS (irritable bowel syndrome): Status: Acute Qualifiers: Irritable bowel syndrome type: with both diarrhea and constipation Qualified Code(s): K58.2 - Mixed irritable bowel syndrome Plan - Dr. César Simpson MD: I suggested that she try a gluten free diet as gluten sensitivity is associated with Merle's. (4) Anxiety: Status: Acute Plan - Dr. César Simpson MD: She has experienced a lot of major life events in the past 2 years. I encouraged her to get treatment for her anxiety including trying meditation. (5) Hypertension: Status: Chronic Qualifiers: Hypertension type: primary hypertension Qualified Code(s): I10 - Essential (primary) hypertension Plan - Dr. César Simpson MD: I changed her lisinopril to losartan due to her chronic cough. I have spent [64] minutes today reviewing labs, records and history. Time includes coordinating care, interpretation of tests, discussion with patient's other health care providers via telephone. This also includes time I spent with the patient for exam, treatment plan and education as well as documenting clinical information. Plan Details Other Medications: New: losartan 25 mg PO DAILY 30 tabs 5RF alprazolam (Xanax) 0.5 mg PO .as needed for flying 7 tabs 0RF Discontinued: lisinopril Discontinued Reason: Order Changed 10 mg PO DAILY 08/30/21 0758 <Electronically signed by César Simpson MD> Date César Simpson MD Cosigner Signature: Date (if applicable) CC: COUNTY AGENTAbigail Amato INDUSTRIAL INSULATOR Work Phone: Start: 05-04-2020 End: 05-04-2020 Head/Neck Soft Tissue Comments: See Note; NOTES: [facility] Imaging Services [address] [place] [address] Head/Neck Soft Tissue MR#: [id number] Acct: [id number] Name: LILLIAN VELAZQUEZ Rep #: [id number] : 1955 F 64 From: Lisa Ng MD PCP: MARGUERITE Sebastian Status: REG CLI Study: Head/Neck Soft Tissue Date of Exam: 05/04/20 Exam# [id number] Ordering Dr: Jose Rafael Marc MD STUDY: SOFT TISSUE ULTRASOUND : REASON FOR EXAM: Female, 64 years old. NECK MASS BELOW AREA OF SCAR- S/P THYROIDECTOMY TECHNIQUE: Real-time exam with harris scale image documentation. COMPARISON: None. FINDINGS: No visualized thyroid tissue. In the left paratracheal area, thyroid fossa there is a 1.2 x 0.7 x 0.8 cm nonvascular solid nodule. US/Head/Neck Soft Tissue IMPRESSION: Solid 1.2 x 0.7 x 0.8 cm nonvascular nodule in the bed of the left thyroid status post thyroidectomy. No cystic component, calcification or other distinguishing features. Does not appear to have normal lymph node anatomy. Electronically Signed: Lisa Ng MD at 20:29 EST , Service support , CC: COUNTY AGENTAbigail Amato; Dr. Jose Rafael Marc MD Coding Auditor: Signed Jose Rafael Marc Work Phone: Start: 03-07-2020 End: 03-07-2020 Upper GI w/BA Swallow Comments: See Note; NOTES: [facility] Imaging Services [address] [place] [address] Upper GI w/BA Swallow MR#: [id number] Acct: [id number] Name: LILLIAN VELAZQUEZ Rep #: [id number] : 1955 F 64 From: Alberto villafuerte MD PCP: MARGUERITE Sebastian Status: REG CLI Study: Upper GI w/BA Swallow Date of Exam: 03/07/20 Exam# [id number] Ordering Dr: Clarissa Amato NP EXAMINATION: UPPER GI SERIES INDICATION: Female, 64 years dysphagia. Recent thyroidectomy. FLUOROSCOPY TIME (if supplied): (0:41) minutes/seconds TECHNIQUE: Radiographic and fluoroscopic images of the distal esophagus, stomach, and proximal small intestine were obtained following the oral ingestion of barium. COMPARISON: None. FINDINGS: There is no evidence for organomegaly, abnormal calcifications, or abnormal bowel gas pattern. The psoas margins and flank stripes are normal. The patient is status post fusion in the lower cervical spine. The mucosa of the esophagus, stomach and duodenum is normal in appearance without evidence for stricture, ulceration, mass or diverticulum. There is no evidence for hiatal hernia or gastroesophageal reflux. IMPRESSION: 1. Normal upper gastrointestinal study. Electronically Signed: Alberto Huston, at 12:42 EST , Service support , STUDY: X-RAY - ESOPHAGUS (BARIUM SWALLOW) WITH FLUOROSCOPY REASON FOR EXAM: Female, 64 years old. THYROIDECTOMY 1 YR AGO, HAS TIGHT FEELING WHEN SWALLOWING LIQUIDS AND FOODS, DIFFICULT TO CLEAR THROAT AFTER TECHNIQUE: 6 view(s) of the esophagus were obtained following swallowing of barium. FLUOROSCOPY TIME (if supplied): (0:01) minutes/seconds COMPARISON: None. FINDINGS: There is no demonstrated esophageal foreign body. There is no demonstrated stricture or mucosal abnormality. Normal gastroesophageal junction, without a demonstrated hiatal hernia. Normal visualized aortic arch and descending thoracic aorta. Normal visualized pulmonary parenchyma. Normal visualized osseous structures of the thorax. RAD/Upper GI w/BA Swallow IMPRESSION: Normal plain film x-ray examination (barium swallow) of the esophagus. Electronically Signed: Alberto Dickbrandt, at 12:42 EST , Service support , CC: MARGUERITE Amato Coding Auditor: Signed Clarissa Amato Work Phone: Breast- cyst removal Carlos Mon Comment on above: 1977 Breast- cyst removal Carlos Mon Comment on above: 1977 Breast- cyst removal Christa kirkpatrick Comment on above: 1977 Breast- cyst removal Carlos Mon Comment on above: 1977 Breast- cyst removal Carlos Mon LPN Comment on above: 1977 Breast- cyst removal Carlos Mon LPN Comment on above: 1977 Breast- cyst removal Jenn Layne MA Comment on above: 1977 Breast- cyst removal Carlos Mon LPN Comment on above: 1977 Breast- cyst removal Nikky Lagunas LPN Comment on above: 1977 Cervical Disc Fusion Carlos Mon Comment on above: 2017 Cervical Disc Fusion Carlos Mon Comment on above: 2017 Cervical Disc Fusion Christa kirkpatrick Comment on above: 2018 Cervical Disc Fusion Carlos Mon Comment on above: 2018 Cervical Disc Fusion Carlos Mon CITIZEN PARTICIPATION SPECIALIST Comment on above: 2018 Cervical Disc Fusion Carlos Mon CITIZEN PARTICIPATION SPECIALIST Comment on above: 2017 Cervical Disc Fusion Jenn Layne MA Comment on above: 2017 Cervical Disc Fusion Carlos Mon CITIZEN PARTICIPATION SPECIALIST Comment on above: 2017 Cervical Disc Fusion Nikky Slarb CITIZEN PARTICIPATION SPECIALIST Comment on above: 2017 D&C Carlos Mon Comment on above: 1982- after [facility] D&C Carlos Mon Comment on above: 1982- after MC D&C Christa Hernandes Comment on above: 1982- after MC D&C Carlos Mon Comment on above: 1982- after MC D&C Carlos Mon LP N Comment on above: 1982- after MC D&C Carlos Mon LP N Comment on above: 1982- after MC D&C Jenn Yuen Comment on above: 1982- after MC D&C Carlos Mon LP N Comment on above: 1982- after MC D&C Nikky Slarb LP N Comment on above: 1982- after MC History of thyroidectomy H/O thyroidectom y Carlos Mon CITIZEN PARTICIPATION SPECIALIST Comment on above: from enlarging goiter that affected swal lowing and airway October 2018 , labs done in [place] August 2019 History of thyroidectomy H/O thyroidectom y Clarissa Hamma INDUSTRIAL INSULATOR Work Phone: History of thyroidectomy H/O thyroidectom y Clarissa Hamma INDUSTRIAL INSULATOR Work Phone: History of thyroidectomy H/O thyroidectom y Clarissa Ruizesa INDUSTRIAL INSULATOR Work Phone: History of thyroidectomy H/O thyroidectom y Clarissa Ruizesa INDUSTRIAL INSULATOR Work Phone: History of thyroidectomy H/O thyroidectom y Clarissa Zapata Ciesa INDUSTRIAL INSULATOR Work Phone: Comment on above: from enlarging goiter that affected swal lowing and airway October 2018 , labs done in [place] August 2019 History of thyroidectomy H/O thyroidectom y Clarissa Zapata Ciranjanaa INDUSTRIAL INSULATOR Work Phone: Comment on above: from enlarging goiter that affected swal lowing and airway October 2018 , labs done in [place] August 2019 History of thyroidectomy H/O thyroidectom y Clarissa Hamma INDUSTRIAL INSULATOR Work Phone: History of thyroidectomy H/O thyroidectom y Jenn Layne MA Comment on above: from enlarging goiter that affected swal lowing and airway October 2018 , labs done in August 2019 History of thyroidectomy H/O thyroidectom y Carlos Mon CITIZEN PARTICIPATION SPECIALIST Comment on above: from enlarging goiter that affected swal lowing and airway October 2018 , labs done in August 2019 History of thyroidectomy H/O thyroidectom y Nikky Calderonrb CITIZEN PARTICIPATION SPECIALIST Comment on above: from enlarging goiter that affected swal lowing and airway October 2018 , labs done in [place] August 2019 Shoulder decompression Ryder Mon Comment on above: 2016 Shoulder decompression Ryder Mon Comment on above: 2016 Shoulder decompression Christa Hernandes Comment on above: 2016 Shoulder decompression Ryder Mon Comment on above: 2016 Shoulder decompression Ryder Mon CITIZEN PARTICIPATION SPECIALIST Comment on above: 2016 Shoulder decompression Ryder Mon CITIZEN PARTICIPATION SPECIALIST Comment on above: 2016 Shoulder decompression Michael Layne MA Comment on above: 2016 Shoulder decompression Ryder Mon CITIZEN PARTICIPATION SPECIALIST Comment on above: 2016 Shoulder decompression Cameron bereket Calderonrb CITIZEN PARTICIPATION SPECIALIST Comment on above: 2016 Thyroidectomy Carlos Mon Comment on above: 2018 Thyroidectomy Carlos Mon Comment on above: 2018 Thyroidectomy Christa Hernandes Comment on above: 2018 Thyroidectomy Carlos Mon Comment on above: 2018 Thyroidectomy Carlos Mon L PN Comment on above: 2018 Thyroidectomy Carlos Mon L PN Comment on above: 2018 Thyroidectomy Jenn Layne MA Comment on above: 2018 Thyroidectomy Carlos Mon L PN Comment on above: 2018 Thyroidectomy Nikky Slarb L PN Comment on above: 2018 Tonsillectomy Carlos Mon Comment on above: 1963 Tonsillectomy Carlos Mon Comment on above: 1963 Tonsillectomy Christa Hernandes Comment on above: 1963 Tonsillectomy Carlos Mon Comment on above: 1963 Tonsillectomy Carlos Mon L PN Comment on above: 1963 Tonsillectomy Carlos Mon L PN Comment on above: 1963 Tonsillectomy Jenn Layne MA Comment on above: 1963 Tonsillectomy Carlos Mno L PN Comment on above: 1963 Tonsillectomy Nikky Slarb L PN Comment on above: 1963 Plan of Treatment Date Care Activity Detail Author Start: 12-15-2031 RSV Vaccine (1 - 1-dose 75+ series) RSV Vaccine (1 - 1-dose 75+ series) [facility] Start: 08-08-2029 Lipid panel Lipid Screening [facility] Start: 02-07-2029 Lipid panel Lipid Screening [facility] Start: 07-23-2028 Lipid panel Lipid Screening [facility] Start: 01-23-2028 Screening for malignant neoplasm of colon [facility] Start: 12-25-2027 Lipid 1996 panel - Serum or Plasma Lipid Screening [facility] Start: 12-25-2027 Lipid panel Lipid Screening [facility] Start: 12-25-2027 LIPID SCREEN LIPID SCREEN [facility] Start: 08-09-2027 Diabetes Screening Diabetes Screening [facility] Start: 06-20-2027 LIPID SCREEN LIPID SCREEN [facility] Start: 02-07-2027 Diabetes Screening Diabetes Screening [facility] Start: 01-27-2027 LIPID SCREEN LIPID SCREEN [facility] Start: 08-02-2026 Diabetes Screening Diabetes Screening [facility] Start: 07-23-2026 Diabetes Screening Diabetes Screening [facility] Start: 12-24-2025 DIABETES SCREEN DIABETES SCREEN [facility] Start: 12-24-2025 Diabetes Screening Diabetes Screening [facility] Start: 10-14-2025 Annual PCP Team Chronic Disease Visit Annual PCP Team Chronic Disease Visit [facility] Start: 09-28-2025 Annual PCP Team Chronic Disease Visit Annual PCP Team Chronic Disease Visit [facility] Start: 08-25-2025 Annual PCP Team Chronic Disease Visit Annual PCP Team [facility] Disease Visit [facility] [facility] Start: 08-08-2025 Annual PCP Team Chronic Disease Visit Annual PCP Team Chronic Disease Visit [facility] Start: 08-08-2025 Anxiety Screening Anxiety Screening [facility] Start: 08-08-2025 Depression Screening Depression Screening [facility] Start: 07-18-2025 Screening for malignant neoplasm of breast Mammogram Screening [facility] Start: 06-19-2025 DIABETES SCREEN DIABETES SCREEN [facility] Start: 06-02-2025 Annual PCP Team Chronic Disease Visit Annual PCP Team Chronic Disease Visit [facility] Start: 05-26-2025 Annual PCP Team Chronic Disease Visit Annual PCP Team Chronic Disease Visit [facility] Start: 03-31-2025 DIABETES SCREEN DIABETES SCREEN [facility] Start: 02-08-2025 End: 02-08-2025 Patient encounter procedure 02/08/2025 1:40 PM EDT Office Visit [facility] [address] [place] [id number] Aziza Thompson PA-C [address] [facility] [place] [id number] 6 month f/u Family [facility] Comment on above: 6 month f/u Start: 02-07-2025 Annual PCP Team Chronic Disease Visit Annual PCP Team Chronic Disease Visit [facility] Start: 02-07-2025 Covid-19 Vaccine ( season) Covid-19 Vaccine ( season) [facility] Comment on above: Postponed from 12/20/2023 (Declined at t his time) Start: 01-27-2025 DIABETES SCREEN DIABETES SCREEN [facility] Start: 01-02-2025 End: 01-02-2025 Patient encounter procedure 01/02/2025 9:20 AM EDT Office Visit Cardiology [address] [place] [address] [place] [address] [place], [place] [id number] SVT (supraventricular tachycardia) (HCC) [I47.10] Cardiology Comment on above: SVT (supraventricular tachycardia) (HCC) [I47.10] Start: 11-21-2024 End: 02-20-2025 Thyrotropin [Units/volume] in Serum or Plasma THYROID STIMULATING HORMONE Lab Routine Postoperative hypothyroidism Expected: 11/21/2024, Expires: 02/20/2025 [facility] Work Phone: Comment on above: Expected: 11/21/2024, Expires: Start: 11-21-2024 End: 11-21-2024 ambulatory 11/21/2024 1:00 PM EDT Results Only [place] [address] [place] [address] [place] [facility] Start: 11-18-2024 Annual PCP Team Chronic Disease Visit Annual PCP Team Chronic Disease Visit [facility] Start: 11-18-2024 BP Controlled (<130/80) BP Controlled (<130/80) [facility] in Start: 11-14-2024 End: 11-14-2024 Nursing evaluation of patient and report 11/14/2024 2:40 PM EDT Nurse Visit Cardiology [address] [place] [address] Wstr, Nurse Card [address] [place] [address] Palpitations [R00.2] Cardiology Comment on above: Palpitations [R00.2] Start: 10-14-2024 End: 10-14-2024 Patient encounter procedure 10/14/2024 11:40 AM EDT Office Visit Family Medicine [place] [address] [place] [place] [address] Aziza Thompson PA-C [address] [place] [address] 2 week med f/u [facility] [place] Comment on above: 2 week med f/u Start: 09-29-2024 End: 09-29-2024 ambulatory 09/29/2024 4:30 PM EDT OT/PT/Speech Visit [facility] [address] [place] [address] Quoc Mccracken, PT [address] [place] [address] Lumbar back pain / Dry needling PT [facility] Comment on above: Lumbar back pain / Dry needling PT Start: 09-21-2024 End: 09-21-2024 Patient encounter procedure Vasculary Surgery Comment on above: Claudication [I73.9] Start: 09-20-2024 End: 09-20-2024 ambulatory 09/20/2024 3:00 PM EDT Results Only [facility] [address] [place] [place] [address] [facility] Start: 09-20-2024 End: 12-20-2024 Thyrotropin [Units/volume] in Serum or Plasma THYROID STIMULATING HORMONE Lab Routine Postoperative hypothyroidism Expected: 09/20/2024, Expires: 12/20/2024 [facility] Work Phone: Comment on above: Expected: 09/20/2024, Expires: Start: 08-25-2024 Annual PCP Team Chronic Disease Visit Annual PCP Team Chronic Disease Visit [facility] Start: 08-25-2024 End: 08-25-2024 Patient encounter procedure 08/25/2024 12:20 PM EDT Office Visit Family Medicine [place] [address] [place] [address] Aziza Thompson PA-C [address] [place] [address] bp recheck [facility] [place] Comment on above: bp recheck Start: 08-22-2024 End: 08-22-2024 ambulatory 08/22/2024 2:00 PM EDT OT/PT/Speech Visit [facility] [address] [place] [address] Quoc Mccracken, PT [address] [facility] [place] [id number] Lumbar back pain [M54.50] [facility] Comment on above: Lumbar back pain [M54.50] Start: 08-08-2024 End: 08-08-2024 Patient encounter procedure 08/08/2024 1:00 PM EDT Office Visit Family Medicine [place] [address] [place] [place] [address] Aziza Thompson PA-C [address] [place] [address] medicare wellness [facility] [place] Comment on above: medicare wellness Start: 08-04-2024 End: 08-04-2024 Follow-up encounter 08/04/2024 2:00 PM EDT OT/PT/Speech Visit [facility] [address] [place] [address] Quoc Mccracken, PT [address] [facility] [place] [id number] Follow up [facility] Comment on above: Follow up Start: 07-22-2024 Annual PCP Team Chronic Disease Visit Annual PCP Team Chronic Disease Visit [facility] Start: 07-22-2024 Anxiety Screening Anxiety Screening [facility] Start: 07-22-2024 BP Controlled (<130/80) BP Controlled (<130/80) [facility] Start: 07-22-2024 Covid-19 Vaccine () Covid-19 Vaccine () [facility] Comment on above: Postponed from 12/19/2022 (Declined at t his time) Start: 07-22-2024 Depression Screening Depression Screening [facility] Start: 07-18-2024 End: 07-18-2024 Patient encounter procedure 07/18/2024 2:10 PM EDT Appointment Mammogram [address] [place] [address] Mammogram Start: 07-07-2024 End: 07-07-2024 ambulatory 07/07/2024 2:00 PM EDT OT/PT/Speech Visit [facility] [address] [place] [address] Quoc Mccracken, PT [address] [place] [address] Foot pain. Plantar fascsiitis [facility] Comment on above: Foot pain. Plantar fascsiitis Start: 07-02-2024 Annual PCP Team Chronic Disease Visit Annual PCP Team Chronic Disease Visit [facility] Start: 06-23-2024 BP Controlled (<130/80) BP Controlled (<130/80) [facility] Start: 06-11-2024 Annual PCP Team Chronic Disease Visit Annual PCP Team Chronic Disease Visit [facility] Start: 06-02-2024 End: 06-02-2024 Patient encounter procedure 06/02/2024 10:40 AM EST Office Visit [facility] [address] [place] [address] Remy Perez MD [address] [facility] [place] [address] Injection R heel [facility] [place] Comment on above: Injection R heel Start: 05-20-2024 Screening for malignant neoplasm of breast Mammogram Screening [facility] Start: 04-20-2024 Advance Directive Discussion Advance Directive Discussion [facility] Start: 03-24-2024 End: 03-24-2024 ambulatory 03/24/2024 11:30 AM EST OT/PT/Speech Visit [facility] [address] [place] [address] Quoc Mccracken, PT [address] [place], [place] [address] M54.50 (ICD-10-CM) - Lumbar back pain [facility] Comment on above: M54.50 (ICD-10-CM) - Lumbar back pain Start: 02-25-2024 End: 02-25-2024 ambulatory 02/25/2024 5:15 PM EST OT/PT/Speech Visit [facility] [address] [place] [address] Quoc Mccracken, PT [address] [place], [place] [id number] M54.50 (ICD-10-CM) - Lumbar back pain [facility] Comment on above: M54.50 (ICD-10-CM) - Lumbar back pain Start: 02-17-2024 End: 02-17-2024 Patient encounter procedure 02/17/2024 2:00 PM EDT Office Visit Pain Management [address] [id number] Jamaal Beaver MD [address] [facility] [place], [place] [phone] Lumbar back pain [M54.50] Pain Management Comment on above: Lumbar back pain [M54.50] Start: 02-12-2024 BP Controlled (<130/80) BP Controlled (<130/80) [facility] in Start: 02-11-2024 End: 02-11-2024 ambulatory 02/11/2024 10:45 AM EDT OT/PT/Speech Visit [facility] [address] [place] [address] Quoc Mccracken, PT [address] [facility] [place] [id number] back pain [facility] Comment on above: back pain Start: 02-08-2024 End: 05-09-2024 Basic metabolic 2000 panel - Serum or Plasma [facility] Work Phone: Comment on above: Expected: 02/08/2024, Expires: Start: 02-08-2024 End: 05-09-2024 LIPID PANEL, NONFASTING [facility] Comment on above: Expected: 02/08/2024, Expires: Start: 02-08-2024 End: 05-09-2024 Thyrotropin [Units/volume] in Serum or Plasma [facility] Comment on above: Expected: 02/08/2024, Expires: 5 Start: 02-08-2024 End: 02-08-2024 Patient encounter procedure Pain Management Comment on above: Lumbar back pain [M54.50] 6 month FU Start: 02-04-2024 End: 02-04-2024 Patient encounter procedure 02/04/2024 1:20 PM EDT Office Visit Family [facility] [place] [address] [place] [address] Aziza Thompson PA-C [address] [facility] [place] [address] 6 month FU Family [facility] [place] Comment on above: 6 month FU Start: 01-30-2024 BP Controlled (<130/80) BP Controlled (<130/80) [facility] Start: 01-28-2024 End: 01-28-2024 Patient encounter procedure 01/28/2024 12:40 PM EDT Office Visit [facility] [address] [place] [address] Aziza Thompson PA-C [address] [facility] [place] [address] 6 month FU Family [facility] [place] Comment on above: 6 month FU Start: 01-23-2024 Colonoscopy Colonoscopy [facility] Start: 01-23-2024 Colorectal Cancer Screening Colorectal Cancer Screening [facility] Start: 01-21-2024 End: 01-21-2024 ambulatory 01/21/2024 2:00 PM EDT OT/PT/Speech Visit [place] [address] [place] [address] Quoc Mccracken, PT [address] [place] [address] Continuing low back pain [facility] Comment on above: Continuing low back pain Start: 01-13-2024 End: 01-13-2024 Patient encounter procedure 01/13/2024 10:00 AM EDT Office Visit Pain Management [address] [facility] [address] [place] [address] Jamaal Beaver MD [address] [facility] [address] [place] [address] Lumbar back pain [M54.50] Pain Management Comment on above: Lumbar back pain [M54.50] Start: 12-25-2023 ANNUAL PCP TEAM CHRONIC DISEASE VISIT ANNUAL PCP TEAM CHRONIC DISEASE VISIT [facility] Start: 12-20-2023 Covid-19 Vaccine ( season) Covid-19 Vaccine ( season) [facility] Start: 12-20-2023 Covid-19 Vaccine ( season) Covid-19 Vaccine ( season) [facility] Start: 12-20-2023 Influenza vaccination Influenza Vaccine (#1) [facility] Start: 12-17-2023 End: 12-17-2023 Patient encounter procedure 12/17/2023 8:40 AM EDT Appointment Radiology [address] [place] [address] Radiculopathy of lumbar region [M54.16]; Radiology Comment on above: Radiculopathy of lumbar region [M54.16]; Start: 11-16-2023 End: 11-16-2023 Patient encounter procedure 11/16/2023 10:20 AM EDT Office Visit [facility] [address] [place] [phone] Aziza Thompson PA-C [address] [facility] [place] [address] Ongoing low back pain [facility] [place] Comment on above: Ongoing low back pain Start: 10-02-2023 BP CONTROLLED (<130/80) BP CONTROLLED (<130/80) [facility] Start: 08-27-2023 End: 08-27-2023 ambulatory 08/27/2023 2:00 PM EDT Results Only [place] [facility] [address] [place] [address] [place] [facility] Start: 08-26-2023 End: 11-25-2023 25-hydroxyvitamin D3 [Mass/volume] in Serum or Plasma VITAMIN D 25 HYDROXY Lab Routine Osteopenia, senile Expected: 08/26/2023, Expires: 11/25/2023 [facility] Work Phone: Comment on above: Expected: 08/26/2023, Expires: Start: 08-26-2023 End: 08-26-2023 ambulatory 08/26/2023 1:20 PM EDT [facility] [place] [address] [facility] [place] [address] Aziza Thompson PA-C [address] [place] [address] Discuss options for osteopenia [facility] [place] Comment on above: Discuss options for osteopenia Start: 08-19-2023 ANNUAL PCP TEAM CHRONIC DISEASE VISIT ANNUAL PCP TEAM CHRONIC DISEASE VISIT [facility] Start: 08-19-2023 BP CONTROLLED (<130/80) BP CONTROLLED (<130/80) [facility] Start: 08-10-2023 End: 11-09-2023 Basic metabolic 2000 panel - Serum or Plasma BASIC METABOLIC PNL Lab Routine Elevated serum creatinine Expected: 08/10/2023, Expires: 11/09/2023 [facility] Work Phone: Comment on above: Expected: 08/10/2023, Expires: Start: 07-27-2023 End: 10-26-2023 CBC W Auto Differential panel - Blood CBC + DIFF Lab Routine Fatigue, unspecified type Expected: 07/27/2023, Expires: 10/26/2023 [facility] Work Phone: Comment on above: Expected: 07/27/2023, Expires: Start: 07-27-2023 End: 10-26-2023 Cobalamin (Vitamin B12) [Mass/volume] in Serum or Plasma VITAMIN B12 BLOOD Lab Routine Fatigue, unspecified type Expected: 07/27/2023, Expires: 10/26/2023 [facility] Work Phone: Comment on above: Expected: 07/27/2023, Expires: Start: 07-27-2023 End: 10-26-2023 Folate [Mass/volume] in Serum or Plasma FOLATE SERUM Lab Routine Fatigue, unspecified type Expected: 07/27/2023, Expires: 10/26/2023 [facility] Work Phone: Comment on above: Expected: 07/27/2023, Expires: Start: 07-27-2023 End: 10-26-2023 Iron and Iron binding capacity panel - Serum or Plasma IRON + TIBC Lab Routine Fatigue, unspecified type Expected: 07/27/2023, Expires: 10/26/2023 [facility] Work Phone: Comment on above: Expected: 07/27/2023, Expires: Start: 07-23-2023 End: 10-22-2023 Comprehensive metabolic 2000 panel - Serum or Plasma COMP METABOLIC PANEL Lab Routine Hypertension, essential Expected: 07/23/2023, Expires: 10/22/2023 [facility] Work Phone: Comment on above: Expected: 07/23/2023, Expires: Start: 07-23-2023 End: 10-22-2023 Hemoglobin A1c in Blood HGB A1C Lab Routine Elevated blood sugar Expected: 07/23/2023, Expires: 10/22/2023 [facility] Work Phone: Comment on above: Expected: 07/23/2023, Expires: Start: 07-23-2023 End: 10-22-2023 LIPID PANEL, NONFASTING LIPID PANEL, NONFASTING Lab Routine Hyperlipidemia, mixed Expected: 07/23/2023, Expires: 10/22/2023 [facility] Work Phone: Comment on above: Expected: 07/23/2023, Expires: 4 Start: 07-23-2023 End: 10-22-2023 Thyrotropin [Units/volume] in Serum or Plasma TSH BLD Lab Routine Postoperative hypothyroidism Expected: 07/23/2023, Expires: 10/22/2023 [facility] Work Phone: Comment on above: Expected: 07/23/2023, Expires: 4 Start: 07-23-2023 End: 10-22-2023 Urinalysis complete panel - Urine URINALYSIS, WITH MICROSCOPIC Lab Routine Hypertension, essential Expected: 07/23/2023, Expires: 10/22/2023 [facility] Work Phone: Comment on above: Expected: 07/23/2023, Expires: Start: 07-15-2023 ANNUAL PCP TEAM CHRONIC DISEASE VISIT ANNUAL PCP TEAM CHRONIC DISEASE VISIT [facility] Start: 07-15-2023 BP CONTROLLED (<130/80) BP CONTROLLED (<130/80) [facility] Start: 07-02-2023 ANNUAL PCP TEAM CHRONIC DISEASE VISIT ANNUAL PCP TEAM CHRONIC DISEASE VISIT [facility] Start: 07-02-2023 BP CONTROLLED (<130/80) BP CONTROLLED (<130/80) [facility] Start: 06-20-2023 ANNUAL PCP TEAM CHRONIC DISEASE VISIT ANNUAL PCP TEAM CHRONIC DISEASE VISIT [facility] Start: 06-20-2023 BP CONTROLLED (<130/80) BP CONTROLLED (<130/80) [facility] Start: 06-20-2023 COVID-19 VACCINE (4 - Booster for Pfizer series) COVID-19 VACCINE (4 - Booster for Pfizer series) [facility] Comment on above: Postponed from 05/23/2021 (Declined at t his time) Start: 06-20-2023 COVID-19 VACCINE (4 - Pfizer series) COVID-19 VACCINE (4 - Pfizer series) [facility] Comment on above: Postponed from 05/23/2021 (Declined at t his time) Start: 06-20-2023 SHINGRIX VACCINE (1 of 2) SHINGRIX VACCINE (1 of 2) [facility] Comment on above: Postponed from 2006 (Declined at t his time) Start: 05-16-2023 ANNUAL PCP TEAM CHRONIC DISEASE VISIT ANNUAL PCP TEAM CHRONIC DISEASE VISIT [facility] Start: 04-20-2023 Advance Directive Discussion Advance Directive Discussion [facility] Start: 04-20-2023 Depression Assessment Depression Assessment [facility] Start: 04-04-2023 ANNUAL PCP TEAM CHRONIC DISEASE VISIT ANNUAL PCP TEAM CHRONIC DISEASE VISIT [facility] Start: 01-27-2023 ANNUAL PCP TEAM CHRONIC DISEASE VISIT ANNUAL PCP TEAM CHRONIC DISEASE VISIT [facility] Start: 01-15-2023 Mammography [facility] Start: 01-15-2023 Screening for malignant neoplasm of breast Mammogram Screening [facility] Start: 12-24-2022 End: 02-23-2023 Comprehensive metabolic 2000 panel - Serum or Plasma [facility] Work Phone: Comment on above: Expected: 12/24/2022, Expires: 3 Start: 12-24-2022 End: 02-23-2023 LIPID PANEL, NONFASTING [facility] Work Phone: Comment on above: Expected: 12/24/2022, Expires: 3 Start: 12-24-2022 End: 02-23-2023 Thyrotropin [Units/volume] in Serum or Plasma [facility] Work Phone: Comment on above: Expected: 12/24/2022, Expires: 3 Start: 12-24-2022 End: 02-23-2023 Urinalysis complete panel - Urine [facility] Work Phone: Comment on above: Expected: 12/24/2022, Expires: 3 Start: 12-19-2022 BP CONTROLLED (<130/80) BP CONTROLLED (<130/80) [facility] Start: 12-19-2022 Covid-19 Vaccine () Covid-19 Vaccine () [facility] Start: 12-19-2022 Influenza vaccination [facility] Start: 12-18-2022 ANNUAL PCP TEAM CHRONIC DISEASE VISIT ANNUAL PCP TEAM CHRONIC DISEASE VISIT [facility] Start: 11-21-2022 Adult depression screening assessment DEPRESSION SCREENING [facility] Start: 11-21-2022 ANNUAL PCP TEAM CHRONIC DISEASE VISIT ANNUAL PCP TEAM CHRONIC DISEASE VISIT [facility] Start: 11-01-2022 ANNUAL PCP TEAM CHRONIC DISEASE VISIT ANNUAL PCP TEAM CHRONIC DISEASE VISIT [facility] Start: 06-19-2022 End: 08-19-2022 Basic metabolic 2000 panel - Serum or Plasma [facility] Work Phone: Comment on above: Expected: 06/19/2022, Expires: 3 Start: 06-19-2022 End: 08-19-2022 LIPID PANEL, NONFASTING [facility] Work Phone: Comment on above: Expected: 06/19/2022, Expires: 3 Start: 06-19-2022 End: 08-19-2022 Thyrotropin [Units/volume] in Serum or Plasma [facility] Work Phone: Comment on above: Expected: 06/19/2022, Expires: 3 Start: 04-20-2022 ADVANCE DIRECTIVE DISCUSSION ADVANCE DIRECTIVE DISCUSSION [facility] Start: 04-20-2022 DEPRESSION ASSESSMENT DEPRESSION ASSESSMENT [facility] Start: 03-28-2022 End: 05-28-2022 ESTELLA BY IFA WITH REFLEX ESTELLA BY IFA WITH REFLEX Lab Routine Positive ESTELLA (antinuclear antibody) Expected: 03/28/2022, Expires: 05/28/2022 [facility] Work Phone: Comment on above: Expected: 03/28/2022, Expires: 3 Start: 03-28-2022 End: 05-28-2022 C reactive protein [Mass/volume] in Serum or Plasma C-REACTIVE PROTEIN (CRP) Lab Routine Positive ESTELLA (antinuclear antibody) Expected: 03/28/2022, Expires: 05/28/2022 [facility] Work Phone: Comment on above: Expected: 03/28/2022, Expires: 3 Start: 03-28-2022 End: 05-28-2022 CBC W Auto Differential panel - Blood CBC + DIFF Lab Routine Positive ESTELLA (antinuclear antibody) Expected: 03/28/2022, Expires: 05/28/2022 [facility] Work Phone: Comment on above: Expected: 03/28/2022, Expires: 3 Start: 03-28-2022 End: 05-28-2022 Complement C3 [Mass/volume] in Serum or Plasma C3 COMPLEMENT BLD Lab Routine Positive ESTELLA (antinuclear antibody) Expected: 03/28/2022, Expires: 05/28/2022 [facility] Work Phone: Comment on above: Expected: 03/28/2022, Expires: 3 Start: 03-28-2022 End: 05-28-2022 Complement C4 [Mass/volume] in Serum or Plasma C4 COMPLEMENT BLD Lab Routine Positive ESTELLA (antinuclear antibody) Expected: 03/28/2022, Expires: 05/28/2022 [facility] Work Phone: Comment on above: Expected: 03/28/2022, Expires: 3 Start: 03-28-2022 End: 05-28-2022 Comprehensive metabolic 2000 panel - Serum or Plasma COMP METABOLIC PANEL Lab Routine Positive ESTELLA (antinuclear antibody) Expected: 03/28/2022, Expires: 05/28/2022 [facility] Work Phone: Comment on above: Expected: 03/28/2022, Expires: 3 Start: 03-28-2022 End: 05-28-2022 Cyclic citrullinated peptide IgG Ab [Units/volume] in Serum or Plasma CCP ANTIBODY IGG Lab Routine Positive ESTELLA (antinuclear antibody) Expected: 03/28/2022, Expires: 05/28/2022 [facility] Work Phone: Comment on above: Expected: 03/28/2022, Expires: 3 Start: 03-28-2022 End: 05-28-2022 Erythrocyte sedimentation rate SED RATE WESTERGREN Lab Routine Positive ESTELLA (antinuclear antibody) Expected: 03/28/2022, Expires: 05/28/2022 [facility] Work Phone: Comment on above: Expected: 03/28/2022, Expires: 3 Start: 03-28-2022 End: 05-28-2022 Extractable nuclear Ab panel - Serum ANTI JAMAL ID Lab Routine Positive ESTELLA (antinuclear antibody) Expected: 03/28/2022, Expires: 05/28/2022 [facility] Work Phone: Comment on above: Expected: 03/28/2022, Expires: 3 Start: 03-28-2022 End: 05-28-2022 IMMUNOFIXATION SCREEN, SERUM IMMUNOFIXATION SCREEN, SERUM Lab Routine Positive ESTELLA (antinuclear antibody) Expected: 03/28/2022, Expires: 05/28/2022 [facility] Work Phone: Comment on above: Expected: 03/28/2022, Expires: 3 Start: 03-28-2022 End: 05-28-2022 KAPPA/STARKS,FREE,SER KAPPA/STARKS,FREE,SER Lab Routine Positive ESTELLA (antinuclear antibody) Expected: 03/28/2022, Expires: 05/28/2022 [facility] Work Phone: Comment on above: Expected: 03/28/2022, Expires: 3 Start: 03-28-2022 End: 05-28-2022 MONOCLONAL PROT UR W/INTERP MONOCLONAL PROT UR W/INTERP Lab Routine Positive ESTELLA (antinuclear antibody) Expected: 03/28/2022, Expires: 05/28/2022 [facility] Work Phone: Comment on above: Expected: 03/28/2022, Expires: 3 Start: 03-28-2022 End: 05-28-2022 PROTEIN ELECT RND UR W/INTERP PROTEIN ELECT RND UR W/INTERP Lab Routine Positive ESTELLA (antinuclear antibody) Expected: 03/28/2022, Expires: 05/28/2022 [facility] Work Phone: Comment on above: Expected: 03/28/2022, Expires: 3 Start: 03-28-2022 End: 05-28-2022 PROTEIN ELECTROPHORESIS SERUM W/INTERP PROTEIN ELECTROPHORESIS SERUM W/INTERP Lab Routine Positive ESTELLA (antinuclear antibody) Expected: 03/28/2022, Expires: 05/28/2022 [facility] Work Phone: Comment on above: Expected: 03/28/2022, Expires: 3 Start: 03-28-2022 End: 05-28-2022 Protein/Creatinine [Mass Ratio] in Urine PROTEIN CREATININE RATIO Lab Routine Positive ESTELLA (antinuclear antibody) Expected: 03/28/2022, Expires: 05/28/2022 [facility] Work Phone: Comment on above: Expected: 03/28/2022, Expires: 3 Start: 03-28-2022 End: 05-28-2022 Rheumatoid factor [Units/volume] in Serum or Plasma RHEUMATOID FACTOR BL Lab Routine Positive ESTELLA (antinuclear antibody) Expected: 03/28/2022, Expires: 05/28/2022 [facility] Work Phone: Comment on above: Expected: 03/28/2022, Expires: 3 Start: 03-28-2022 End: 05-28-2022 Urinalysis complete panel - Urine URINALYSIS WITH MICROSCOPIC, REFLEX CULTURE Lab Routine Positive ESTELLA (antinuclear antibody) Expected: 03/28/2022, Expires: 05/28/2022 [facility] Work Phone: Comment on above: Expected: 03/28/2022, Expires: 3 Start: 02-21-2022 [facility] Work Phone: Start: 02-21-2022 Application of ice collar, cap or bag [facility] Work Phone: Start: 02-21-2022 Patient discharge [facility] Work Phone: Start: 02-21-2022 Wound care [facility] Work Phone: Start: 01-28-2022 End: 03-30-2022 Bacteria identified in Urine by Culture URINE CULTURE Microbiology Routine Microscopic hematuria Expected: 01/28/2022, Expires: 03/30/2022 [facility] Work Phone: Comment on above: Expected: 01/28/2022, Expires: 2 Start: 12-19-2021 Influenza vaccination INFLUENZA (#1) [facility] Start: 2021 ADVANCE DIRECTIVE DISCUSSION ADVANCE DIRECTIVE DISCUSSION [facility] Start: 2021 BONE DENSITY BONE DENSITY [facility] Start: 2021 Bone Density Screening Bone Density Screening [facility] Start: 2021 PNEUMOCOCCAL: 65+ (1 - PCV) PNEUMOCOCCAL: 65+ (1 - PCV) [facility] Start: 2021 Screening for osteoporosis Bone Density Screening [facility] Start: 11-21-2021 End: 01-21-2022 ESTELLA BY IFA SCREEN [facility] Work Phone: Comment on above: Expected: 11/21/2021, Expires: 2 Start: 11-21-2021 End: 01-21-2022 Erythrocyte sedimentation rate [facility] Work Phone: Comment on above: Expected: 11/21/2021, Expires: 2 Start: 10-12-2021 [facility] Work Phone: Start: 07-27-2021 COVID-19 VACCINE (4 - Booster for Pfizer series) COVID-19 VACCINE (4 - Booster for Pfizer series) [facility] Start: 06-18-2021 Procedure Education Eprescribed prescriptions (G8553) [facility] Work Phone: Start: 06-18-2021 Provider Instructions for Treatment Follow up in 3 days virtual [facility] Work Phone: Start: 05-23-2021 COVID-19 VACCINE (4 - Booster for Pfizer series) COVID-19 VACCINE (4 - Booster for Pfizer series) [facility] Start: 05-03-2021 Procedure Education Eprescribed prescriptions (G8553) [facility]; [facility] Work Phone: Start: 04-20-2021 DEPRESSION ASSESSMENT DEPRESSION ASSESSMENT [facility] Start: 01-11-2021 Procedure Education Eprescribed prescriptions (G8553) [facility]; [facility] Work Phone: Start: 10-23-2020 Renal function panel RENAL FUNCTION PANEL (79996) [facility]; [facility] Work Phone: Start: 09-21-2020 Procedure Education Eprescribed prescriptions (G8553) [facility]; [facility] Work Phone: Start: 09-21-2020 Provider Instructions for Treatment [facility] Work Phone: Start: 09-18-2020 C-reactive protein C-REACTIVE PROTEIN (64692) [facility]; [facility] Work Phone: Start: 09-18-2020 Antinuclear antibodies estella ESTELLA (ANTINUCLEAR ANTIBODY) (40397) [facility]; [facility] Work Phone: Start: 09-18-2020 Rheumatoid factor quantitative RHEUMATOID FACTOR-QUANT (69896) [facility]; [facility] Work Phone: Start: 09-18-2020 Comprehensive metabolic panel METABOLIC PANEL, COMPREHENSIVE (83397) [facility]; [facility] Work Phone: Start: 09-18-2020 Blood count complete automated CBC (AUTO) (73467) [facility]; [facility] Work Phone: Start: 09-18-2020 25 hydroxy includes fractions if performed CALCIFIDIOL (37935) VIT D 25 [facility]; [facility] Work Phone: Start: 09-18-2020 Assay of folic acid serum Folate (68899) [facility]; [facility] Work Phone: Start: 09-18-2020 Cyanocobalamin vitamin b-12 VITAMIN B-12 (CYANOCOBALAMIN) (45437) [facility]; [facility] Work Phone: Start: 09-18-2020 Procedure Education Eprescribed prescriptions (G8553) [facility]; [facility] Work Phone: Start: 09-18-2020 Provider Instructions for Treatment [facility]; [facility] Work Phone: Start: 06-08-2020 Procedure Education Eprescribed prescriptions (G8553) [facility]; [facility] Work Phone: Start: 06-08-2020 Provider Instructions for Treatment Follow up in 6 weeks front counter attendant to arrange, virtually if needed [facility] Work Phone: Start: 03-21-2020 Procedure Education Eprescribed prescriptions (G8553) [facility] Work Phone: Start: 02-28-2020 Procedure Education Eprescribed prescriptions (G8553) [facility] Work Phone: Start: 02-28-2020 Provider Instructions for Treatment [facility] Work Phone: Start: 02-28-2020 Assay of thyroid stimulating hormone tsh TSH (THYROID STIMULATING HORMONE) (93226) [facility]; [facility] Work Phone: Comment on above: August 2020 Start: 02-28-2020 TSH Qn TSH (THYROID STIMULATING HORMONE) (72171) [facility] Work Phone: Comment on above: August 2020 Start: 02-28-2020 Assay of triiodothyronine t3 free T3, FREE (TRIDOTHYRONINE) (32482) [facility]; [facility] Work Phone: Comment on above: august 2020 Start: 02-28-2020 Free T3 [Mass/Vol] T3, FREE (TRIDOTHYRONINE) (38792) [facility] Work Phone: Comment on above: august 2020 Start: 02-28-2020 Assay of free thyroxine T4, FREE (THYROXINE) (03697) [facility]; [facility] Work Phone: Comment on above: August 2020 Start: 02-28-2020 Free T4 [Mass/Vol] T4, FREE (THYROXINE) (94557) [facility] Work Phone: Comment on above: August 2020 Start: 02-28-2020 Lipid panel LIPID PANEL (39231) [facility] Work Phone: Comment on above: August 2020 Start: 01-17-2020 Procedure Education Eprescribed prescriptions (G8553) [facility] Work Phone: Start: 01-17-2020 Provider Instructions for Treatment Follow up in 6 weeks [facility] Work Phone: Start: 01-17-2020 Comprehensive metabolic panel Metabolic Panel, Comprehensive (64591) [facility] Work Phone: Comment on above: Feb 19 Start: 01-17-2020 Blood count complete auto&auto difrntl wbc CBC, Platelets & Auto Diff (04953) [facility] Work Phone: Comment on above: Feb 19 Start: 01-17-2020 Lipid panel LIPID PANEL (96671) [facility] Work Phone: Comment on above: Feb 19 Start: 01-17-2020 Free T4 [Mass/Vol] T4, FREE (THYROXINE) (09629) [facility] Work Phone: Comment on above: Feb 20 2020 Start: 01-17-2020 Free T3 [Mass/Vol] T3, FREE (TRIDOTHYRONINE) (83060) [facility] Work Phone: Comment on above: Feb 20 2020 Start: 01-17-2020 TSH Qn TSH (THYROID STIMULATING HORMONE) (65277) [facility] Work Phone: Comment on above: Feb 20 2020 Start: 2016 RSV Vaccine (1 - 1-dose 60+ series) RSV Vaccine (1 - 1-dose 60+ series) [facility] Start: 2006 SHINGRIX VACCINE (1 of 2) SHINGRIX VACCINE (1 of 2) [facility] Start: 2001 COLOGUARD (FIT-DNA) COLOGUARD (FIT-DNA) [facility] Start: 2001 Colonoscopy COLONOSCOPY [facility] Start: 2001 COLORECTAL CANCER SCREENING COLORECTAL CANCER SCREENING [facility] Start: [address] COLONOGRAPHY [facility] Start: 2001 DIABETES SCREEN DIABETES SCREEN [facility] Start: 2001 FECAL OCCULT BLOOD FECAL OCCULT BLOOD [facility] Start: 2001 LIPID SCREEN LIPID SCREEN [facility] Start: 2001 Screening for malignant neoplasm of colon [facility] Start: 2001 SIGMOIDOSCOPY SIGMOIDOSCOPY [facility] Start: 1996 Mammography MAMMOGRAM [facility] Start: 1986 HPV TESTING HPV TESTING [facility] Start: 1977 PAP TESTING PAP TESTING [facility] Start: 12-15-1975 Urine microalbumin profile [facility] Start: 1974 BP CONTROLLED (<130/80) BP CONTROLLED (<130/80) [facility] in Start: 1974 HEPATITIS C SCREENING HEPATITIS C SCREENING [facility] Start: 1974 HIV SCREENING HIV SCREENING [facility] Start: 1968 Adult depression screening assessment DEPRESSION SCREENING [facility] End: 08-21-2024 BD DXA TRABECULAR BONE SCORE (TBS) BD DXA TRABECULAR BONE SCORE (TBS) Radiology Routine Asymptomatic postmenopausal status 1 Occurrences starting 07/23/2023 until 08/21/2024 [facility] Work Phone: Comment on above: 1 Occurrences starting 07/23/2023 until 08/21/2024 BD DXA TRABECULAR OSIEL NE SCORE (TBS) BD DXA TRABECULAR BONE SCORE (TBS) Radiology Routine Asymptomatic postmenopausal status 08/14/2023 2:23 PM EDT [facility] End: 06-18-2023 Ct pelvis w/o contrast material CT PELVIS WO IVCON Radiology Routine Bone lesion Abnormal x-ray 1 Occurrences starting 05/19/2022 until 06/18/2023 [facility] Work Phone: Comment on above: 1 Occurrences starting 05/19/2022 until 06/18/2023 DBT Breast - bilater al screening LEONORA SCREENING W HERNANDEZ Radiology Routine Encounter for screening mammogram for breast cancer 07/18/2024 2:18 PM EDT [facility] Work Phone: End: 08-21-2024 DXA Skeletal system.axial Views for bone density DXA-AXIAL SKELETON Radiology Routine Asymptomatic postmenopausal status 1 Occurrences starting 07/23/2023 until 08/21/2024 [facility] Work Phone: Comment on above: 1 Occurrences starting 07/23/2023 until 08/21/2024 DXA Skeletal system. axial Views for bone density DXA-AXIAL SKELETON Radiology Routine Asymptomatic postmenopausal status 08/14/2023 2:23 PM EDT [facility] Work Phone: End: 04-27-2023 DXA-AXIAL SKELETON DXA-AXIAL SKELETON Radiology Routine Positive ESTELLA (antinuclear antibody) 1 Occurrences starting 03/28/2022 until 04/27/2023 [facility] Work Phone: Comment on above: 1 Occurrences starting 03/28/2022 until 04/27/2023 End: 01-27-2023 ECG COMPLETE ECG COMPLETE ECG Routine Preop examination 1 Occurrences starting 01/27/2022 until 01/27/2023 [facility] Work Phone: Comment on above: 1 Occurrences starting 01/27/2022 until 01/27/2023 ECG COMPLETE ECG COMPLETE ECG Routine Palpitations Ordered: 08/08/2024 [facility] Work Phone: Comment on above: Ordered: 08/08/2024 End: 08-08-2025 EXERCISE STRESS ECG (WITHOUT IMAGING) EXERCISE STRESS ECG (WITHOUT IMAGING) Cardiology Routine Palpitations Hypertension, essential 1 Occurrences starting 08/08/2024 until 08/08/2025 [facility] Comment on above: 1 Occurrences starting 08/08/2024 until 08/08/2025 End: 12-18-2024 MR Lumbar spine WO contrast MRI LUMBAR SPINE WO IVCON Radiology Routine Radiculopathy of lumbar region Chronic midline low back pain without sciatica Decreased reflex 1 Occurrences starting 11/19/2023 until 12/18/2024 [facility] Work Phone: Comment on above: 1 Occurrences starting 11/19/2023 until 12/18/2024 OUTSIDE VENDOR CARDI AC OUTPATIENT EXTENDED RHYTHM RECORDING (WITHOUT TELEMETRY) OUTSIDE VENDOR CARDIAC OUTPATIENT EXTENDED RHYTHM RECORDING (WITHOUT TELEMETRY) Holter Routine Palpitations Hypertension, essential Ordered: 08/08/2024 [facility] Comment on above: Ordered: 08/08/2024 Patient Education [facility] Work Phone: Patient referral [facility] Work Phone: PT PLAN OF CARE CERTIFICATION PT PLAN OF CARE CERTIFICATION Procedures Routine Lumbar back pain Ordered: 05/21/2022 [facility] Comment on above: Ordered: 05/21/2022 PT PLAN OF CARE CERTIFICATION PT PLAN OF CARE CERTIFICATION Procedures Routine Fall (on) (from) unspecified stairs and steps, subsequent encounter Ordered: 08/29/2022 [facility] Work Phone: Comment on above: Ordered: 08/29/2022 End: 12-01-2022 Radex spine cervical 4 or 5 views XR CERV OTHER 4V AP/LAT/OBL Radiology Routine Left arm pain Left hand weakness Numbness and tingling of left upper extremity 1 Occurrences starting 11/01/2021 until 12/01/2022 [facility] Work Phone: Comment on above: 1 Occurrences starting 11/01/2021 until 12/01/2022 End: 06-15-2023 Radex spine lumbosacral 2/3 views XR LUMBAR GENERAL 3V AP/LAT/L5-S1 Radiology Routine Lumbar back pain 1 Occurrences starting 05/16/2022 until 06/15/2023 [facility] Work Phone: Comment on above: 1 Occurrences starting 05/16/2022 until 06/15/2023 Radex spine lumbosac ral 2/3 views XR LUMBAR GENERAL 3V AP/LAT/L5-S1 Radiology Routine Lumbar back pain 05/16/2022 12:36 PM EST [facility] Anne Fogarty Work Phone: End: 08-13-2023 Radex spine lumbosacral 2/3 views XR LUMBAR GENERAL 3V AP/LAT/L5-S1 Radiology Routine Fall (on) (from) unspecified stairs and steps, subsequent encounter 1 Occurrences starting 07/14/2022 until 08/13/2023 [facility] Work Phone: Comment on above: 1 Occurrences starting 07/14/2022 until 08/13/2023 Radex spine lumbosac ral 2/3 views XR LUMBAR GENERAL 3V AP/LAT/L5-S1 Radiology Routine Fall (on) (from) unspecified stairs and steps, subsequent encounter 07/14/2022 3:07 PM EDT [facility] Work Phone: Radionuclide imaging of perfusion of myocardium under exercise stress [facility] End: 12-20-2022 Screening mammography bi 2-view breast inc cad LEONORA SCREENING Radiology Routine Encounter for screening mammogram for breast cancer 1 Occurrences starting 11/20/2021 until 12/20/2022 [facility] Work Phone: Comment on above: 1 Occurrences starting 11/20/2021 until 12/20/2022 End: 04-27-2023 US HAND/WRIST SYNOVIAL SCREEN RT [facility] Work Phone: Comment on above: 1 Occurrences starting 03/28/2022 until 04/27/2023 US Heart [facility] End: 08-08-2025 US.doppler Extremity arteries - bilateral for physiologic artery study PVR ANK PRESS [facility] Vascular Lab Routine Claudication 1 Occurrences starting 08/08/2024 until 08/08/2025 [facility] Comment on above: 1 Occurrences starting 08/08/2024 until 08/08/2025 End: 08-08-2025 US.doppler Extremity arteries - bilateral for physiologic artery study at rest and with exercise PVR ANK PRESS W/EXC [facility] Vascular Lab Routine Claudication 1 Occurrences starting 08/08/2024 until 08/08/2025 [facility] Comment on above: 1 Occurrences starting 08/08/2024 until 08/08/2025 End: 06-25-2025 XR Foot - right AP and Lateral and oblique XR FOOT GENERAL 3V AP/LAT/OBL RIGHT Radiology Routine Plantar fasciitis of right foot 1 Occurrences starting 05/26/2024 until 06/25/2025 [facility] Comment on above: 1 Occurrences starting 05/26/2024 until 06/25/2025 XR Foot - right AP a nd Lateral and oblique XR FOOT GENERAL 3V AP/LAT/OBL RIGHT Radiology Routine Plantar fasciitis of right foot 05/26/2024 12:40 PM EST [facility] XR HAND GENERAL 3V PA/LAT/OBL LEFT XR HAND GENERAL 3V PA/LAT/OBL LEFT Radiology Routine Left hand weakness Left hand pain 11/21/2021 9:47 AM EDT [facility] Work Phone: End: 04-27-2023 XR HIP GENERAL 3V PELV/AP/LAT LEFT XR HIP GENERAL 3V PELV/AP/LAT LEFT Radiology Routine Positive ESTELLA (antinuclear antibody) 1 Occurrences starting 03/28/2022 until 04/27/2023 [facility] Work Phone: Comment on above: 1 Occurrences starting 03/28/2022 until 04/27/2023 End: 04-27-2023 XR KNEE GENERAL 4V AP BOTH/PA BOTH/LAT/MERC BILATERAL XR KNEE GENERAL 4V AP BOTH/PA BOTH/LAT/MERC BILATERAL Radiology Routine Positive ESTELLA (antinuclear antibody) 1 Occurrences starting 03/28/2022 until 04/27/2023 [facility] Work Phone: Comment on above: 1 Occurrences starting 03/28/2022 until 04/27/2023 End: 06-25-2025 XR Pelvis and Hip - left AP and Lateral frog XR HIP GENERAL 3V PELV/AP/LAT LEFT Radiology Routine Chronic left hip pain 1 Occurrences starting 05/26/2024 until 06/25/2025 [facility] Work Phone: Comment on above: 1 Occurrences starting 05/26/2024 until 06/25/2025 XR Pelvis and Hip - left AP and Lateral frog XR HIP GENERAL 3V PELV/AP/LAT LEFT Radiology Routine Chronic left hip pain 05/26/2024 12:40 PM [facility] End: 07-31-2023 XR SHOULDER GENERAL 3V OR MORE AP/TRUE AP/OTHER RIGHT XR SHOULDER GENERAL 3V OR MORE AP/TRUE AP/OTHER RIGHT Radiology Routine Acute pain of right shoulder 1 Occurrences starting 07/01/2022 until 07/31/2023 [facility] Work Phone: Comment on above: 1 Occurrences starting 07/01/2022 until 07/31/2023 XR SHOULDER GENERAL 3V OR MORE AP/TRUE AP/OTHER RIGHT XR SHOULDER GENERAL 3V OR MORE AP/TRUE AP/OTHER RIGHT Radiology Routine Acute pain of right shoulder 07/01/2022 4:04 PM EDT [facility] Work Phone: [facility] Work Phone: [facility] Work Phone: [facility] Work Phone: [facility] Work Phone: [facility] Immunizations Immunization Date Immunization Notes Care Provider [facility] 02-08-2024 influenza, high dose seasonal, preservative-free Aziza Thompson PA-C Work Phone: [facility] 01-30-2023 influenza virus vaccine, unspecified formulation Rosalind Portillo MD Work Phone: [facility] 01-27-2022 influenza, high-dose , quadrivalent vaccine (FLUZONE HIGH DOSE QUADRIVALENT) Aziza Thompson PA-C Work Phone: [facility] 01-27-2022 pneumococcal (PCV20) vaccine, 20 valent (PREVNAR 20) Aziza Thompson PA-C Work Phone: [facility] 01-27-2022 pneumococcal Conjugate, unspecified formulation Aziza Thompson PA-C Work Phone: [facility] Work Phone: 01-27-2022 influenza virus vaccine, unspecified formulation Quoc Mccracken PT Work Phone: [facility] 07-26-2020 COVID-19 (Pfizer) Clarissa Hanselbereket INDUSTRIAL INSULATOR Work Phone: [facility] Work Phone: 07-05-2020 COVID-19 (Pfizer) Clarissa Amato INDUSTRIAL INSULATOR Work Phone: [facility] Work Phone: Payers Date Payer Category Payer Self-pay [id number] 2021 Medicare HUMANA MEDICARE HU[employer]NA GOLD PLUS [id number] 2021-Present [phone] [address] [place], [place] [address] O [id number] 2021 Medicare HUMANA MEDICARE HUMANA GOLD PLUS [id number] 2021-Present [phone] [place], [place] [address] O [id number] 2021 Medicare (Managed Care) HUMANA G OLD PLUS [id number] 2021 Private Health Insurance [id number] Private Health Insurance [facility] *DONOTUSE [id number] Private Health Insurance [facility] *DONOTUSE [id number] Unknown UNINSURED [id number] RELATED [id number] Unknown [id number] Unknown [id number] Unknown [id number] Social History Date Type Detail Facility Alcohol Use: Alcohol Use: [facility] Work Phone: Start: 01-27-2022 End: 08-29-2022 Caffeine Use Caffeine Use [facility] Work Phone: Comment on above: 2cups/day Living Situation: Living Situation: [facility] Work Phone: Alcohol Use: Alcohol Use: [facility] Work Phone: Living Situation: Living Situation: [facility] Work Phone: Start: 10-12-2021 End: 06-29-2022 Tobacco smoking status NHIS Unknown if ever smoked [facility] Start: 1955 Sex Assigned At Female C [facility] Start: 11-01-2021 End: 12-18-2021 Tobacco smoking status NHIS Never smoked tobacco [facility] Start: 11-01-2021 End: 12-18-2021 Tobacco use and exposure Smokeless tobacco non-user [facility] Start: 11-01-2021 End: 06-12-2022 History SDOH Alcohol Frequency 5 [facility] Start: 11-01-2021 End: 06-12-2022 History SDOH Alcohol Std Drinks 1 [facility] Start: 11-01-2021 End: 06-12-2022 History SDOH Social Connections Get Together 2 [facility] Start: 11-01-2021 History SDOH Social Connections Confucianist 3 [facility] Start: 11-01-2021 End: 06-12-2022 History SDOH Financial 4 [facility] Start: 10-22-2021 End: 01-27-2022 Exposure to SARS-CoV-2 (event) Not sure [facility] Start: 01-27-2022 End: 06-27-2022 Alcohol intake Current drinker of alcohol (finding) [facility] Start: 10-31-2021 End: 08-29-2022 Social connection and isolation panel [facility] Do you belong to any clubs or organizations such as christian groups, unions, fraternal or athletic groups, or school groups? Yes [facility] Are you now , , , , never or living with a partner? [facility] How often to you hav e a drink containing alcohol? 2-3 time sa week [facility] How many standard drinks containing alcohol do you have on a typical day? 1 or 2 [facility] How often do you hav e 6 or more drinks on 1 occasion? Never [facility] How hard is it for y ou to pay for the very basics like food, housing, medical care, and heating Not hard at all [facility] Do you feel stress - tense, restless, nervous, or anxious, or unable to sleep at night because your mind is troubled all the time - these days [OSQ] To some extent [facility] (I/We) worried wheth er (my/our) food would run out before (I/we) got money to buy more. Never true [facility] In the past 12 month s, was there a time when you were not able to pay the mortgage or rent on time? No [facility] Start: 10-29-2021 Gender identity Identifies as female gender (finding) [facility] Start: 10-29-2021 Sexual orientation Heterosexual (shea craig) [facility] Start: 01-29-2023 End: 09-28-2024 Alcohol intake Ex-drinker (finding) [facility] Start: 01-22-2023 Alcohol Comment occasionally [facility] How often to you hav e a drink containing alcohol? 4 or more times a week [facility] How hard is it for y ou to pay for the very basics like food, housing, medical care, and heating Not very hard [facility] Do you feel stress - tense, restless, nervous, or anxious, or unable to sleep at night because your mind is troubled all the time - these days [OSQ] Rather much [facility] Goals Date Patient Goal Desired Activity /State Mental Status Date Assessment Result Facility 02-21-2022 Cognitive function Touch/Shaking [facility] [place] Work Phone: 02-21-2022 Cognitive function Patient Carol mauricio Person;Place;Time [facility] [place] Work Phone: Clinical Notes 11-01-2021 to 10-17-2024 Telephone Encounter - New Renee LPN - 10/17/2024 7:34 AM EDTTelephone Encounter - New Renee LPN - 10/17/2024 7:34 AM EDTPatient Larissa Amaya MA - 10/11/2024 9:26 AM EDT Note Date & Type Note Facility 10-17-2024 Telephone encounter Note Pt is requesting to have a 90 day supply. Pt had ov 10/14/24 and has f/u appointment 02/08/25. New Renee LPN [facility] 10-17-2024 Miscellaneous Notes Pt is requesting to have a 90 day supply. Pt had ov 10/14/24 and has f/u appointment 02/08/25. New Renee LPN documented in this encounter [facility] 10-14-2024 Instructions Aziza Thompson PA-C - 10/14/2024 11:44 AM EDT Vit E 800units at night 6oz of tonic water at night. If not improving we could either start baclofen at bedtime or increase gabapentin. Let me know in 2-4 weeks how things are going and how you would like to proceed. documented in this encounter [facility] 10-14-2024 Note HNO ID: [id number] Author: AZIZA THOMPSON PA-C Service: ? Author Type: Physician Clin Tech Type: Progress Notes Filed: 10/14/2024 12:04 Note Text: Chief Complaint Patient presents with: Recheck: Follow up medication HPI Lillian Velazquez is a 68 year old female who presents here today for recheck. Hypertension: - Recently switched from losartan to amlodipine; Lillian reports improved BP control. Bradycardia: - Noted HR in the 40s with associated fatigue. - Television Operator agreed with halving the beta-michelle dose to 12.5 mg, resulting in improved HR. - Scheduled for an echocardiogram and stress test in the next few weeks. - Still experiencing occasional palpitations. Leg Cramps: - Persistent leg cramps, particularly in the right foot, noted upon waking and stretching. - Flexeril provides some relief but causes significant grogginess and depressive symptoms. - Recent factory maintenance technician visit ruled out stump neuromas; factory maintenance technician suggested possible nerve involvement. - Lillian is taking gabapentin 300 mg, previously BID, now only at bedtime due to perceived lack of efficacy during the day. - Tried B-complex vitamins without noticeable improvement; discontinued last week. Past medical history, appointments, medications, allergies reviewed. Previous Medical History PAST MEDICAL HISTORY Diagnosis Date Elevated blood sugar 11/19/2021 History of COVID-19 11/01/2021 10/11/2021 Hyperlipidemia, mixed 12/24/2022 Hypertension, essential 11/01/2021 Lumbar back pain 05/21/2022 Osteopenia, senile 08/26/2023 Plantar fasciitis 06/02/2024 Rt Heel: injected 05/2024 Postoperative hypothyroidism 11/01/2021 Removed due to goiter. Primary insomnia 11/01/2021 RLS (restless legs syndrome) 11/01/2021 On gabapentin Previous Surgical History PAST SURGICAL HISTORY Procedure Laterality Date COLONOSCOPY 01/22/2023 repeat 5 years CYST/MOLE REMOVAL Left 1977 benign cyst- Left breast PAST SURGICAL HISTORY OF 2018 cervical fusion PAST SURGICAL HISTORY OF 2017 right shoulder decompression PAST SURGICAL HISTORY OF Bilateral foot surgery THYROIDECTOMY 10/2018 due to goiter, no cancer TONSILLECTOMY HX 8 yo Family History FAMILY HISTORY Problem Relation Age of Onset Cancer Mother Lung? other (a. fib) Father other (TIA) Father Hyperlipidemia Father Hypertension Father Hypertension Sister Stroke Maternal Grandmother Diabetes Maternal Grandmother Ischemic Heart Disease Maternal Grandfather Heart disease Maternal Grandfather Stroke Paternal Grandmother Heart Attack Paternal Grandfather Ovarian cancer Maternal Aunt Patient Allergies ALLERGIES Allergen Reactions Augmentin [Amoxicil* GI Upset Current Medications Current Outpatient Medications on File Prior to Visit Medication Sig amLODIPine (NORVASC) 5 mg tablet Take 1 tablet by mouth once daily. cyclobenzaprine (FLEXERIL) 10 mg tablet Take 1 tablet by mouth three times a day as needed for muscle spasm. rosuvastatin (CRESTOR) 20 mg tablet Take 1 tablet by mouth daily at bedtime. levothyroxine (LEVOXYL) 100 mcg tablet Take 1 tablet by mouth once daily. gabapentin (NEURONTIN) 300 mg capsule Take 1 capsule by mouth two times a day for 180 days. traZODone (DESYREL) 150 mg tablet Take 1 tablet by mouth daily at bedtime. multivit with minerals/lutein (MULTIVITAMIN 50 PLUS ORAL) Take by mouth once daily. docosahexaenoic acid/epa (FISH OIL ORAL) Take by mouth as directed. TURMERIC ORAL Take by mouth as directed. dicyclomine (BENTYL) 10 mg capsule Take 1 capsule by mouth before meals and at bedtime. betamethasone dipropionate (DIPROSONE) 0.05 % cream Apply to affected area twice daily. No current facility-administered medications on file prior to visit. Social History Social History Tobacco Use Smoking status: Never Smokeless tobacco: Never Vaping Use Vaping status: Never Used Substance Use Topics Alcohol use: Not Currently Comment: occasionally Drug use: Never Review of Symptoms REVIEW OF SYSTEMS SEE HPI EXAM: BP 112/78 (BP Site: Left Arm, BP Position: Sitting, BP Cuff Size: Regular Adult) Pulse (!) 53 Temp 36.9 ?C (98.4 ?F) Resp 16 Wt 53.1 kg (117 lb) SpO2 98% BMI 21.53 kg/m? General Appearance: Well appearing, alert, in no acute distress, well-hydrated, well nourished.. Health Maintenance List DTaP,Tdap,Td Vaccine(1 - Tdap) Never done Shingrix Vaccine(1 of 2) Never done Covid-19 Vaccine( - season) due on 02/07/2025 Mammogram Screening due on 07/18/2025 Depression Screening due on 08/08/2025 Anxiety Screening due on 08/08/2025 Annual PCP Team Chronic Disease Visit due on 10/14/2025 Diabetes Screening due on 08/09/2027 Colorectal Cancer Screening due on 01/23/2028 Lipid Screening due on 08/08/2029 RSV Vaccine(1 - 1-dose 75+ series) due on 12/15/2031 Bone Density Screening Completed Influenza Vaccine Completed Advance Directive (more content not included)... [facility] 10-14-2024 History of Presen t illness Narrative Chief Complaint Patient presents with: Recheck: Follow up medication HPI Lillian Velazquez is a 68 year old female who presents here today for recheck. Hypertension: - Recently switched from losartan to amlodipine; Lillian reports improved BP control. Bradycardia: - Noted HR in the 40s with associated fatigue. - Television Operator agreed with halving the beta-michelle dose to 12.5 mg, resulting in improved HR. - Scheduled for an echocardiogram and stress test in the next few weeks. - Still experiencing occasional palpitations. Leg Cramps: - Persistent leg cramps, particularly in the right foot, noted upon waking and stretching. - Flexeril provides some relief but causes significant grogginess and depressive symptoms. - Recent factory maintenance technician visit ruled out stump neuromas; factory maintenance technician suggested possible nerve involvement. - Lillian is taking gabapentin 300 mg, previously BID, now only at bedtime due to perceived lack of efficacy during the day. - Tried B-complex vitamins without noticeable improvement; discontinued last week. Past medical history, appointments, medications, allergies reviewed. Previous Medical History PAST MEDICAL HISTORY Diagnosis Date Elevated blood sugar 11/19/2021 History of COVID-19 11/01/2021 10/11/2021 Hyperlipidemia, mixed 12/24/2022 Hypertension, essential 11/01/2021 Lumbar back pain 05/21/2022 Osteopenia, senile 08/26/2023 Plantar fasciitis 06/02/2024 Rt Heel: injected 05/2024 Postoperative hypothyroidism 11/01/2021 Removed due to goiter. Primary insomnia 11/01/2021 RLS (restless legs syndrome) 11/01/2021 On gabapentin Previous Surgical History PAST SURGICAL HISTORY Procedure Laterality Date COLONOSCOPY 01/22/2023 repeat 5 years CYST/MOLE REMOVAL Left 1977 benign cyst- Left breast PAST SURGICAL HISTORY OF 2018 cervical fusion PAST SURGICAL HISTORY OF 2017 right shoulder decompression PAST SURGICAL HISTORY OF Bilateral foot surgery THYROIDECTOMY 10/2018 due to goiter, no cancer TONSILLECTOMY HX 8 yo Family History FAMILY HISTORY Problem Relation Age of Onset Cancer Mother Lung? other (a. fib) Father other (TIA) Father Hyperlipidemia Father Hypertension Father Hypertension Sister Stroke Maternal Grandmother Diabetes Maternal Grandmother Ischemic Heart Disease Maternal Grandfather Heart disease Maternal Grandfather Stroke Paternal Grandmother Heart Attack Paternal Grandfather Ovarian cancer Maternal Aunt Patient Allergies ALLERGIES Allergen Reactions Augmentin [Amoxicil* GI Upset Current Medications Current Outpatient Medications on File Prior to Visit Medication Sig amLODIPine (NORVASC) 5 mg tablet Take 1 tablet by mouth once daily. cyclobenzaprine (FLEXERIL) 10 mg tablet Take 1 tablet by mouth three times a day as needed for muscle spasm. rosuvastatin (CRESTOR) 20 mg tablet Take 1 tablet by mouth daily at bedtime. levothyroxine (LEVOXYL) 100 mcg tablet Take 1 tablet by mouth once daily. gabapentin (NEURONTIN) 300 mg capsule Take 1 capsule by mouth two times a day for 180 days. traZODone (DESYREL) 150 mg tablet Take 1 tablet by mouth daily at bedtime. multivit with minerals/lutein (MULTIVITAMIN 50 PLUS ORAL) Take by mouth once daily. docosahexaenoic acid/epa (FISH OIL ORAL) Take by mouth as directed. TURMERIC ORAL Take by mouth as directed. dicyclomine (BENTYL) 10 mg capsule Take 1 capsule by mouth before meals and at bedtime. betamethasone dipropionate (DIPROSONE) 0.05 % cream Apply to affected area twice daily. No current facility-administered medications on file prior to visit. Social History Social History Tobacco Use Smoking status: Never Smokeless tobacco: Never Vaping Use Vaping status: Never Used Substance Use Topics Alcohol use: Not Currently Comment: occasionally Drug use: Never Review of Symptoms REVIEW OF SYSTEMS SEE HPI EXAM: BP 112/78 (BP Site: Left Arm, BP Position: Sitting, BP Cuff Size: Regular Adult) Pulse (!) 53 Temp 36.9 C (98.4 F) Resp 16 Wt 53.1 kg (117 lb) SpO2 98% BMI 21.53 kg/m General Appearance: Well appearing, alert, in no acute distress, well-hydrated, well nourished.. Health Maintenance List DTaP,Tdap,Td Vaccine(1 - Tdap) Never done Shingrix Vaccine(1 of 2) Never done Covid-19 Vaccine(4 - season) due on 02/07/2025 Mammogram Screening due on 07/18/2025 Depression Screening due on 08/08/2025 Anxiety Screening due on 08/08/2025 Annual PCP Team Chronic Disease Visit due on 10/14/2025 Diabetes Screening due on 08/09/2027 Colorectal Cancer Screening due on 01/23/2028 Lipid Screening due on 08/08/2029 RSV Vaccine(1 - 1-dose 75+ series) due on 12/15/2031 Bone Density Screening Completed Influenza Vaccine Completed Advance Directive Discussion Completed Medicare Advantage Annual Wellness Visit Completed Pneumococcal Vaccine: 50+ Completed Cervical Cancer Screening Discontinued Hepatitis C Screening Discontinued Assessment and Plan 1. Nocturnal leg cramps (G47.62) - Symptoms persist despite current treatment with Flexeril and gabapentin 300 mg at bedtime. - Discontinue Flexeril due to sedation and depressive side effects. - Initiate vitamin E 800 units at bedtime. - Add tonic water 6 oz at bedtime; reduce to minimum effective dose if symptoms improve. - Monitor symptoms over the next 2-4 weeks; patient to send [employer] message with updates. - If no improvement, consider starting baclofen or increasing gabapentin dosage. 2. Hypertension, essential (I10) - Blood pressure remains stable on current regimen of amlodipine. - Stay off of losartan - Continue monitoring blood pressure. - Follow-up scheduled in January. Aziza Thompson PA-C Recording using [employer] software for draft documentation of the visit was discussed with the patient/authorized independent sales representative; all questions welcomed and answered. Patient/authorized independent sales representative agreed to proceed documented in this encounter [facility] 10-11-2024 Note HNO ID: [id number] Author: LARISSA WAKEFIELD MA Service: ? Author Type: Floor Broker Type: Progress Notes Filed: 10/11/2024 09:27 Note Text: Scan on 10/11/2024 7:56 AM by ProviderFelicita PA-C: Consultation - Podiatry [facility] 10-11-2024 History of Presen t illness Narrative Scan on 10/11/2024 7:56 AM by Felicita Vargas PA-C: Consultation - Podiatry documented in this encounter [facility] 10-07-2024 Note HNO ID: [id number] Author: QUOC MCCRACKEN PT Service: ? Author Type: Physical Therapist Type: Progress Notes Filed: 10/07/2024 14:56 Note Text: Episode Visit Count: 4 Therapist That Will Accept/Oversee The Plan Of Care: Quoc Mccracken PT Start of Care Date: 07/18/24 Onset Date: 06/17/24 Plan of Care Certification Date: 08/22/24 Next Certification Due Date: 10/17/24 Patient Identified by Name and Date of : Yes REHABILITATION AND SPORTS THERAPY PHYSICAL THERAPY DISCONTINUANCE OF CARE PLAN OF CARE UPDATE: Assessment: Lillian Velazquez is discontinued from Physical Therapy services due to Patient/Client declining further intervention.. Patient was seen for 4 visits from Start of Care Date: 07/18/24 to 10/07/2024 and treatment included: Therapeutic exercise, Manual therapy, and Self-skilled nursing management. Goals updated 08/22/2024 Goals for Episode of Care: established 07/18/24 [place] in home exercise program. - MET Perform standing/walking without pain. - MET Improve flexibility of R gastrocnemius to WNL for decreased stress to the R plantar fascia when walking - MET Normal gait.- MET Pt will report being able to do the dishes without pain in 3 weeks or less Not assessed Patient Goals: Help prevent foot pain SUBJECTIVE: Has been stressed lately. Usually after she travels a lot she gets pain into the back. Patient Goals: Help prevent foot pain Functional Limitations: nothing Prior Level of Function: Independent without limitations Intake Information: Prescription present Pain: PROMIS Scales 07/16/2024 03/24/2024 02/24/2024 Higher is Better Phys Func - T Score 45 (within normal limits) 51 (within normal limits) 48 (within normal limits) Phys Func - Percentile 31 54 42 Self-Eff Symptom - T Score 42 (Average) 51 (Average) Self-Eff Symptom - Percentile 21 54 08/26/2022 05/20/2022 03/28/2022 Lower is Better Pain Interference - T Score 58 (mild) 60 (mild) 62 (moderate) Pain Interference - Percentile 21 16 12 T-scores: mean of general population = 50. 5 points is clinically meaningfully difference Percentiles provide an indication of how the patient's score ranks in relation to the general population. Higher percentile rankings indicate better function/quality of life. 50th percentile is the average of the general population and indicates half of respondents had a worse score. OBJECTIVE MEASURES WITH LEVEL OF FUNCTION: Spine Observations R Lumbar Spine Palpation Tenderness: Paraspinals LE AROM R LE AROM: WNL L LE AROM: WNL LE Flexibility Flexibility: Gastrocnemius Flexibility R Gastrocnemius Flexibility: WNL L Gastrocnemius Flexibility: WNL Spine Joint Mobility Joint Mobility - L5: Hypermobile (with R UPA compared to L) Lumbar extension causes aching pain in the back TREATMENT: Manual Therapy: 2: STM bowstringing R lumbar paraspinals minimal pressure 3: Gliding palm inferiorly over paraspinals of lumbar spine 4: DDN in prone Dry needling to following Trigger points: B lumbar paraspinals Needle length: 50mm 2.0 in . Gabriels used 2, needles removed 2. Dry needling technique used: Pistoning, Fanning, and Deep needling. Patient education on purpose, precautions, safety, risks, and other treatment options regarding dry needling. Verbal consent received. Therapeutic Exercise: 1: All objective measures taken 2: Paloff lvl 3 band 2 x 10 Skilled Intervention: Patient was educated in proper exercise technique and purpose for exercises. Skilled Intervention: Manual skills to improve joint mobility, ROM, and decrease pain. Utilized anatomy knowledge of the clinician, and assessment of patient's response to intervention. Billing Therapeutic Exercise Treatment Minutes: 19 Manual TherapyTreatment Minutes: 20 Skilled Treatment Time Minutes (timed and untimed codes): 39 Total Session Time (minutes): 39 Session Start Time : 1416 Session Stop Time : 1455 Quoc Mccracken PT [facility] 10-07-2024 History of Presen t illness Narrative Images from the original note were not included. Episode Visit Count: 4 Therapist That Will Accept/Oversee The Plan Of Care: Quoc Mccracken PT Start of Care Date: 07/18/24 Onset Date: 06/17/24 Plan of Care Certification Date: 08/22/24 Next Certification Due Date: 10/17/24 Patient Identified by Name and Date of : Yes REHABILITATION AND SPORTS THERAPY PHYSICAL THERAPY DISCONTINUANCE OF CARE PLAN OF CARE UPDATE: Assessment: Lillian Velazquez is discontinued from Physical Therapy services due to Patient/Client declining further intervention.. Patient was seen for 4 visits from Start of Care Date: 07/18/24 to 10/07/2024 and treatment included: Therapeutic exercise, Manual therapy, and Self-skilled nursing management. Goals updated 08/22/2024 Goals for Episode of Care: established 07/18/24 [place] in home exercise program. - MET Perform standing/walking without pain. - MET Improve flexibility of R gastrocnemius to WNL for decreased stress to the R plantar fascia when walking - MET Normal gait.- MET Pt will report being able to do the dishes without pain in 3 weeks or less Not assessed Patient Goals: Help prevent foot pain SUBJECTIVE: Has been stressed lately. Usually after she travels a lot she gets pain into the back. Patient Goals: Help prevent foot pain Functional Limitations: nothing Prior Level of Function: Independent without limitations Intake Information: Prescription present Pain: PROMIS Scales 07/16/2024 03/24/2024 02/24/2024 Higher is Better Phys Func - T Score 45 (within normal limits) 51 (within normal limits) 48 (within normal limits) Phys Func - Percentile 31 54 42 Self-Eff Symptom - T Score 42 (Average) 51 (Average) Self-Eff Symptom - Percentile 21 54 08/26/2022 05/20/2022 03/28/2022 Lower is Better Pain Interference - T Score 58 (mild) 60 (mild) 62 (moderate) Pain Interference - Percentile 21 16 12 T-scores: mean of general population = 50. 5 points is clinically meaningfully difference Percentiles provide an indication of how the patient's score ranks in relation to the general population. Higher percentile rankings indicate better function/quality of life. 50th percentile is the average of the general population and indicates half of respondents had a worse score. OBJECTIVE MEASURES WITH LEVEL OF FUNCTION: Spine Observations R Lumbar Spine Palpation Tenderness: Paraspinals LE AROM R LE AROM: WNL L LE AROM: WNL LE Flexibility Flexibility: Gastrocnemius Flexibility R Gastrocnemius Flexibility: WNL L Gastrocnemius Flexibility: WNL Spine Joint Mobility Joint Mobility - L5: Hypermobile (with R UPA compared to L) Lumbar extension causes aching pain in the back TREATMENT: Manual Therapy: 2: STM bowstringing R lumbar paraspinals minimal pressure 3: Gliding palm inferiorly over paraspinals of lumbar spine 4: DDN in prone Dry needling to following Trigger points: B lumbar paraspinals Needle length: 50mm 2.0 in . Gabriels used 2, needles removed 2. Dry needling technique used: Pistoning, Fanning, and Deep needling. Patient education on purpose, precautions, safety, risks, and other treatment options regarding dry needling. Verbal consent received. Therapeutic Exercise: 1: All objective measures taken 2: Paloff lvl 3 band 2 x 10 Skilled Intervention: Patient was educated in proper exercise technique and purpose for exercises. Skilled Intervention: Manual skills to improve joint mobility, ROM, and decrease pain. Utilized anatomy knowledge of the clinician, and assessment of patient's response to intervention. Billing Therapeutic Exercise Treatment Minutes: 19 Manual TherapyTreatment Minutes: 20 Skilled Treatment Time Minutes (timed and untimed codes): 39 Total Session Time (minutes): 39 Session Start Time : 1416 Session Stop Time : 1455 Quoc Mccracken PT documented in this encounter [facility] 09-28-2024 Instructions Aziza Thompson PA-C - 09/28/2024 11:57 AM EDT We will stop losartan to see if it helps decrease the leg cramps. Can use cyclobenzaprine to help with leg cramps as needed. Make sure to stay hydrated. Start amlodipine for BP control. Monitor BP You can decrease metoprolol to 12.5 and contact cardiology about your low HR and associated symptoms of fatigue. We are replace pravastatin with crestor (rosuvastatin). Follow up in 2 weeks. documented in this encounter [facility] 09-28-2024 Note HNO ID: [id number] Author: AZIZA THOMPSON PA-C Service: ? Author Type: Physician Clin Tech Type: Progress Notes Filed: 09/28/2024 13:04 Note Text: Chief Complaint Patient presents with: Follow Up: Leg cramps HPI Lillian Velazquez is a 68 year old female who presents here today for follow up on leg cramp symptoms. She says she does not get them every night, but when they do occur it is a sharp severe pain in her calf. The cramping rotates between legs and she also experiences foot cramping in both feet that switch from L to R too. 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 She will be seeing her factory maintenance technician next week to evaluate further. She has not noticed much improvement when stopping the pravastatin. She is taking a b complex vitamin which includes vitb6 at 100mg. She denies any reddness, swelling, or warmth in the b/l LE. Patient with a PMHx of HLD, HTN, osteopenia, plantar fasciitis, postoperative hypothyroidism, RLS Past medical history, appointments, medications, allergies reviewed. Previous Medical History PAST MEDICAL HISTORY Diagnosis Date Elevated blood sugar 11/19/2021 History of COVID-19 11/01/2021 10/11/2021 Hyperlipidemia, mixed 12/24/2022 Hypertension, essential 11/01/2021 Lumbar back pain 05/21/2022 Osteopenia, senile 08/26/2023 Plantar fasciitis 06/02/2024 Rt Heel: injected 05/2024 Postoperative hypothyroidism 11/01/2021 Removed due to goiter. Primary insomnia 11/01/2021 RLS (restless legs syndrome) 11/01/2021 On gabapentin Previous Surgical History PAST SURGICAL HISTORY Procedure Laterality Date COLONOSCOPY 01/22/2023 repeat 5 years CYST/MOLE REMOVAL Left 1977 benign cyst- Left breast PAST SURGICAL HISTORY OF 2018 cervical fusion PAST SURGICAL HISTORY OF 2017 right shoulder decompression PAST SURGICAL HISTORY OF Bilateral foot surgery THYROIDECTOMY 10/2018 due to goiter, no cancer TONSILLECTOMY HX 8 yo Family History FAMILY HISTORY Problem Relation Age of Onset Cancer Mother Lung? other (a. fib) Father other (TIA) Father Hyperlipidemia Father Hypertension Father Hypertension Sister Stroke Maternal Grandmother Diabetes Maternal Grandmother Ischemic Heart Disease Maternal Grandfather Heart disease Maternal Grandfather Stroke Paternal Grandmother Heart Attack Paternal Grandfather Ovarian cancer Maternal Aunt Patient Allergies ALLERGIES Allergen Reactions Augmentin [Amoxicil* GI Upset Current Medications Current Outpatient Medications on File Prior to Visit Medication Sig metoprolol succinate ER (TOPROL XL) 25 mg 24 hr tablet Take 1 tablet by mouth once daily. levothyroxine (LEVOXYL) 100 mcg tablet Take 1 tablet by mouth once daily. gabapentin (NEURONTIN) 300 mg capsule Take 1 capsule by mouth two times a day for 180 days. traZODone (DESYREL) 150 mg tablet Take 1 tablet by mouth daily at bedtime. losartan (COZAAR) 25 mg tablet Take 1 tablet by mouth once daily. Take one tablet daily busPIRone (BUSPAR) 15 mg tablet Take 0.5 tablets by mouth two times a day for 14 days, THEN 1 tablet two times a day. multivit with minerals/lutein (MULTIVITAMIN 50 PLUS ORAL) Take by mouth once daily. docosahexaenoic acid/epa (FISH OIL ORAL) Take by mouth as directed. TURMERIC ORAL Take by mouth as directed. dicyclomine (BENTYL) 10 mg capsule Take 1 capsule by mouth before meals and at bedtime. betamethasone dipropionate (DIPROSONE) 0.05 % cream Apply to affected area twice daily. pravastatin (PRAVACHOL) 20 mg tablet Take 1 tablet by mouth daily at bedtime. No current facility-administered medications on file prior to visit. Social History Social History Tobacco Use Smoking status: Never Smokeless tobacco: Never Vaping Use Vaping status: Never Used Substance Use Topics Alcohol use: Not Currently Comment: occasionally Drug use: Never Review of Symptoms REVIEW OF SYSTEMS See hpi EXAM: BP 120/86 (BP Site: Right Arm, BP Position: Sitting, BP Cuff Size: Regular Adult) Pulse (!) 44 Temp 36.9 ?C (98.4 ?F) Resp 16 Wt 53.1 kg (117 lb) SpO2 99% BMI 21.53 kg/m? General Appearance: Well appearing, alert, in no acute distress, well-hydrated, well nourished.. Health Maintenance List DTaP,Tdap,Td Vaccine(1 - Tdap) Never done Shingrix Vaccine(1 of 2) Never done Covid-19 Vaccine( season) due on 02/07/2025 Mammogram Screening due on 07/18/2025 Depression Screening due on 08/08/2025 Anxiety Screening due on 08/08/2025 Annual PCP Team Chronic Disease Visit due on 08/25/2025 Diabetes Screening due on 08/09/2027 Colorectal Cancer Screening due on 01/23/2028 Lipid Screening due on 08/08/2029 RSV Vaccine(1 - 1-dose 75+ series) due on 12/15/2031 Bone Density Screening Completed Influenza Vaccine Completed Advance Directive Discussion Completed Medicare Advantage Annual We (more content not included)... [facility] 09-28-2024 History of Presen t illness Narrative Chief Complaint Patient presents with: Follow Up: Leg cramps HPI Lillian Velazquez is a 68 year old female who presents here today for follow up on leg cramp symptoms. She says she does not get them every night, but when they do occur it is a sharp severe pain in her calf. The cramping rotates between legs and she also experiences foot cramping in both feet that switch from L to R too. 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 She will be seeing her factory maintenance technician next week to evaluate further. She has not noticed much improvement when stopping the pravastatin. She is taking a b complex vitamin which includes vitb6 at 100mg. She denies any reddness, swelling, or warmth in the b/l LE. Patient with a PMHx of HLD, HTN, osteopenia, plantar fasciitis, postoperative hypothyroidism, RLS Past medical history, appointments, medications, allergies reviewed. Previous Medical History PAST MEDICAL HISTORY Diagnosis Date Elevated blood sugar 11/19/2021 History of COVID-19 11/01/2021 10/11/2021 Hyperlipidemia, mixed 12/24/2022 Hypertension, essential 11/01/2021 Lumbar back pain 05/21/2022 Osteopenia, senile 08/26/2023 Plantar fasciitis 06/02/2024 Rt Heel: injected 05/2024 Postoperative hypothyroidism 11/01/2021 Removed due to goiter. Primary insomnia 11/01/2021 RLS (restless legs syndrome) 11/01/2021 On gabapentin Previous Surgical History PAST SURGICAL HISTORY Procedure Laterality Date COLONOSCOPY 01/22/2023 repeat 5 years CYST/MOLE REMOVAL Left 1977 benign cyst- Left breast PAST SURGICAL HISTORY OF 2018 cervical fusion PAST SURGICAL HISTORY OF 2017 right shoulder decompression PAST SURGICAL HISTORY OF Bilateral foot surgery THYROIDECTOMY 10/2018 due to goiter, no cancer TONSILLECTOMY HX 8 yo Family History FAMILY HISTORY Problem Relation Age of Onset Cancer Mother Lung? other (a. fib) Father other (TIA) Father Hyperlipidemia Father Hypertension Father Hypertension Sister Stroke Maternal Grandmother Diabetes Maternal Grandmother Ischemic Heart Disease Maternal Grandfather Heart disease Maternal Grandfather Stroke Paternal Grandmother Heart Attack Paternal Grandfather Ovarian cancer Maternal Aunt Patient Allergies ALLERGIES Allergen Reactions Augmentin [Amoxicil* GI Upset Current Medications Current Outpatient Medications on File Prior to Visit Medication Sig metoprolol succinate ER (TOPROL XL) 25 mg 24 hr tablet Take 1 tablet by mouth once daily. levothyroxine (LEVOXYL) 100 mcg tablet Take 1 tablet by mouth once daily. gabapentin (NEURONTIN) 300 mg capsule Take 1 capsule by mouth two times a day for 180 days. traZODone (DESYREL) 150 mg tablet Take 1 tablet by mouth daily at bedtime. losartan (COZAAR) 25 mg tablet Take 1 tablet by mouth once daily. Take one tablet daily busPIRone (BUSPAR) 15 mg tablet Take 0.5 tablets by mouth two times a day for 14 days, THEN 1 tablet two times a day. multivit with minerals/lutein (MULTIVITAMIN 50 PLUS ORAL) Take by mouth once daily. docosahexaenoic acid/epa (FISH OIL ORAL) Take by mouth as directed. TURMERIC ORAL Take by mouth as directed. dicyclomine (BENTYL) 10 mg capsule Take 1 capsule by mouth before meals and at bedtime. betamethasone dipropionate (DIPROSONE) 0.05 % cream Apply to affected area twice daily. pravastatin (PRAVACHOL) 20 mg tablet Take 1 tablet by mouth daily at bedtime. No current facility-administered medications on file prior to visit. Social History Social History Tobacco Use Smoking status: Never Smokeless tobacco: Never Vaping Use Vaping status: Never Used Substance Use Topics Alcohol use: Not Currently Comment: occasionally Drug use: Never Review of Symptoms REVIEW OF SYSTEMS See hpi EXAM: BP 120/86 (BP Site: Right Arm, BP Position: Sitting, BP Cuff Size: Regular Adult) Pulse (!) 44 Temp 36.9 C (98.4 F) Resp 16 Wt 53.1 kg (117 lb) SpO2 99% BMI 21.53 kg/m General Appearance: Well appearing, alert, in no acute distress, well-hydrated, well nourished.. Health Maintenance List DTaP,Tdap,Td Vaccine(1 - Tdap) Never done Shingrix Vaccine(1 of 2) Never done Covid-19 Vaccine( - season) due on 02/07/2025 Mammogram Screening due on 07/18/2025 Depression Screening due on 08/08/2025 Anxiety Screening due on 08/08/2025 Annual PCP Team Chronic Disease Visit due on 08/25/2025 Diabetes Screening due on 08/09/2027 Colorectal Cancer Screening due on 01/23/2028 Lipid Screening due on 08/08/2029 RSV Vaccine(1 - 1-dose 75+ series) due on 12/15/2031 Bone Density Screening Completed Influenza Vaccine Completed Advance Directive Discussion Completed Medicare [employer] Annual Wellness Visit Completed Pneumococcal Vaccine: 50+ Completed Cervical Cancer Screening Discontinued Hepatitis C Screening Discontinued Data reviewed N/a ASSESSMENT/PLAN: 1. Nocturnal leg cramps - ICD9: 327.52, ICD10: G47.62 (primary diagnosis) We discussed stopping losartan and replacing this with amlodipine for BP control to see if this has any effect on her leg cramping symptoms. Flexaril 10mg was also prescribed. Encouraged increased hydration. 2. RLS (restless legs syndrome) - ICD9: 333.94, ICD10: G25.81 Patient states this is stable. 3. Bradycardia, drug induced - ICD9: 427.89, E947.9, ICD10: R00.1, T50.905A Patient was recently put on metoprolol 25mg per cardiology. Due to her symptoms of fatigue, occasional lightheadedness and pulse today in the low 40s at 44BPM, advised patient to cut dose in half and contact cardiology for further management. 4. Hyperlipidemia, mixed - ICD9: 272.2, ICD10: E78.2 Patient was started on rosuvastatin 20mg daily. Pravastatin was discontinued. Patient to follow up in 2 weeks for follow up and med check. She will contact us sooner if any issues. Svetlana PLEITEZ I have personally seen and examined the patient and performed the medical-decision making components. I have reviewed the Physician Clin Tech (PA) student's documentation and verified the findings in the note as written. Any additions or changes are noted in bold/italics. Aziza Thompson PA-C documented in this encounter [facility] 09-21-2024 Miscellaneous Notes The following approved medication requests have been transmitted electronically. Requested Prescriptions Signed Prescriptions Disp Refills levothyroxine (LEVOXYL) 100 mcg tablet 90 tablet 1 Sig: Take 1 tablet by mouth once daily. Remy Perez MD documented in this encounter [facility] 09-21-2024 Telephone encounter Note The following approved medication requests have been transmitted electronically. Requested Prescriptions Signed Prescriptions Disp Refills levothyroxine (LEVOXYL) 100 mcg tablet 90 tablet 1 Sig: Take 1 tablet by mouth once daily. Remy Perez MD [facility] 09-20-2024 Note HNO ID: [id number] Author: NEW RENEE LPN Service: ? Author Type: LICENSED NURSE Type: Progress Notes Filed: 09/20/2024 13:20 Note Text: Pt notified of same. Verbalizes understanding of instructions. Pt advises that she has already made an appointment with the lab for this this afternoon. New Renee LPN [facility] 09-20-2024 Note Addended by: REMY PEREZ on: 09/20/2024 09:00 AM Modules accepted: Orders [facility] 09-20-2024 Miscellaneous Notes Addended by: REMY PEREZ on: 09/20/2024 09:00 AM Modules accepted: Orders documented in this encounter [facility] 09-20-2024 Note HNO ID: [id number] Author: REMY PEREZ MD Service: ? Author Type: Physician Type: Progress Notes Filed: 09/20/2024 09:00 Note Text: Let patient know I received a copy of her resent labs from [facility] and seen that her TSh was elevated. I placed orders to repeat this at our lab so it's being done on the same machine as usual for her. I have found a discrepancy between [facility] labs and our labs at times. [facility] 09-20-2024 History of Presen t illness Narrative Let patient know I received a copy of her resent labs from Cardio and seen that her TSh was elevated. I placed orders to repeat this at our lab so it's being done on the same machine as usual for her. I have found a discrepancy between [facility] labs and our labs at times. Scan on 09/19/2024 6:35 PM by ProviderFelicita PA-C: Chemistry documented in this encounter [facility] 09-20-2024 Note HNO ID: [id number] Author: NEW RENEE LPN Service: ? Author Type: LICENSED NURSE Type: Progress Notes Filed: 09/20/2024 08:28 Note Text: Scan on 09/19/2024 6:35 PM by ProviderFelicita PA-C: Chemistry [facility] 09-19-2024 Evaluation note Diagnosis Onset Date Resolution Dyslipidemia chronic September 19 1:58pm Generalized anxiety disorder chronic September 19, 2024 1 :58pm Hypertension, essential chronic J 2024 1:58pm Palpitations chronic September 19 1:58pm SVT (supraventricular tachycardia) chronic September 19, 2024 1 :58pm [facility] Work Phone: [phone] 261-239406-02-2025 Progress [facility] [address] [place], [place] [address] OFFICE VISIT Date of Service: 09/19/24 MR#: [id number] Acct: [id number] Name: LILLIAN VELAZQUEZ Rep #: [id number] : 1955 Provider: Dr. Regis Goldstein MD Age/Sex: 68/F Location: [facility] Status: Signed HPI HPI History of Present Illness Details: This lady with past medical history significant for generalized anxiety disorder, hypertension and dyslipidemia is here for establishing cardiac care. Recently she has had event monitoring done for her complaints of palpitations. It showed few brief supraventricular runs. The longest run was 11 beats long. Per patient, she started having palpitations over the last year or so. She feels her heart fluttering for a few seconds at most. Occasionally feels lightheaded with that. No syncope. Question of presyncope. No associated chest pain. Some shortness of breath associated with these. Denies any chest pains at rest or with exertion. Denies orthopnea. No PND. Noankle edema. Patient has history of hypothyroidism and is on thyroid replacement therapy. Admits to drinking couple of cups of coffee every day. Denies EtOH or substanceabuse. Intake Vital Signs 06/29/22 13:23 09/15/24 18:27 09/19/24 11:28 Height 5 ft 2 in 5 ft 2 in Weight: 116 lb 118 lb BMI 21.5 BP 149/94 H Blood Pressure Location Lt brachial Position Sitting Respiration 18 Pulse 61 Pulse Source NIBP Intake Visit Reasons: SVT (GO) Registered Representative Required: No Accompanied by: Is patient in pain?: No Allergies amoxicillin (From Augmentin) Adverse Reaction (Intermediate, Verified 09/19/24 14:33) diarrhea clavulanic acid (From Augmentin) Adverse Reaction (Intermediate, Verified 09/19/24 14:33) diarrhea Medications ?Medication ?Instructions ?Recorded ?Confirmed ?Type cholecalciferol (vitamin D3) 25 25 mcg PO DAILY 09/19/24 History mcg (1,000 unit) capsule diphenhydramine HCl 25 mg tablet 25 mg PO .prn PRN Hea dache 10/25/20 09/19/24 History (Benadryl Allergy) gabapentin 300 mg capsule 300 mg PO QHS 10/25/2009/19 History levothyroxine 88 mcg tablet 88 mcg PO DAILY 10/25/20 0 09/19/24 History trazodone 50 mg tablet 150 mg PO QHS 10/25/2009/19 History alprazolam 0.5 mg tablet (Xanax) 0.5 mg PO .as needed for flying #7 12/14/20 09/19/24 Rx tabs oxycodone-acetaminophen 5 mg-325 1 tab PO Q8H PRN pain 5 days #14 06/29/22 09/19/24 Rx mg tablet (Endocet) tabs betamethasone dipropionate 0.05 % 1 applic topical BID PRN 09/15/24 09/19/24 History topical cream buspirone 5 mg tablet 5 mg PO TID PRN 09/15/2406/14 History dicyclomine 10 mg capsule 10 mg PO TID 09/15/24 History docosahexaenoic acid PO DAILY 09/15/24 09/19/24 H istory losartan 50 mg tablet 50 mg PO QDAY 09/15/2409/19 History ffrjnyqe-duo-ptpw-FA-vit K-lut PO DAILY 09/15/2409/19 History [Multivitamin Women 50 Plus] pravastatin 20 mg tablet 20 mg PO QHS 09/15/24 History turmeric PO DAILY 09/15/24 09/19/24 H istory Have you fallen in the past year?: No PFSH Medical History Alcohol use Anxiety Back pain Breast lump Depression Elevated blood sugar Generalized anxiety disorder GERD (gastroesophageal reflux disease) Headache Heartburn Hyperlipidemia Hyperlipidemia, mixed Hypernatremia Hypertension Hypertension, essential Hypoglycemia IBS (irritable bowel syndrome) Leg cramps Lumbar back pain Non-smoker Osteopenia, senile Palpitations Plantar fasciitis Post-menopausal Postoperative hypothyroidism Postoperative primary hypothyroidism Primary insomnia Restless legs Seasonal allergies Thyroid disease UTI (urinary tract infection) Wears glasses Surgical History H/O dilation and curettage H/O removal of cyst H/O shoulder surgery H/O spinal fusion H/O thyroidectomy Family History Grandmother Anxiety Diabetes High cholesterol CVA (cerebral vascular accident) Mother Cancer Father Depression Hypertension Kidney disease Sister Depression Hypertension Brother Depression Aunt Ovarian cancer Grandfather Myocardial infarction Social History Smoking Status: Never smoker Electronic Cigarette Use: not used alcohol intake: current alcohol intake frequency: a few times a week substance use type: does not use what type of physical activity do you participate in: walking ROS Const Const: Positive for fatigue and weakness (episodic); Negative for headache(s) or weight gain ENT ENT: Positive for dizziness and balance problems; Negative for headache(s) or Nosebleed/epistaxis Cardio Chest Pain: No Palpitations: Yes Edema: None Muscle aches with walking: None Resp Respiratory: Positive for SOB with activity and SOB at rest; Negative for SOB orthopneaundefinedSOB lying down GI GI: Negative nausea, vomiting or heartburn Musc Musc: Positive for muscle aches/ myalgia (BLE) and balance problems; Negative for muscle weakness or joint pain Neuro Neuro: Positive for dizziness and weakness (episodic); Negative for lightheadedness, near syncope, syncope or headache(s) Endo Endo: Positive for fatigue Cardiology Exam Const Appearance: comfortable and no acute distress Nutritional Appearance: well nourished Neck Neck: no JVD Carotids: Negative bruit Chest Auscultation: Bilateral: Clear to Auscultation Cardio Rate: regular rate Rhythm: regular rhythm Heart sounds: S1 normal and S2 normal Neuro General: patient alert, patient awake and patient oriented x3 Extremities Lower Extremity Edema: None: Bilateral Supplemental Info Supplemental Information 14-Day Cardiac Event Monitor 09/02/2024: Preliminary Findings: Patient had a min HR of 38 bpm, max HR of 185 bpm, and avg HR of 62 bpm. Predominant underlying rhythm was Sinus Rhythm. 17 Supraventricular Tachycardia runs occurred, the run with the fastest interval lasting 11 beats with a max rate of 185 bpm, the longest lasting 15 beats with an avg rate of 111bpm. Supraventricular Tachycardia was detected within +/- 45 seconds of symptomatic patient event(s). Isolated SVEs were rare (<1%). Isolated VEs were rare (<1%), and no VE Couplets or VE Triplets were present. Ventricular Bigeminy was present. Assessment and Plan Assessment and Plan (1) Palpitations: Status: Chronic Plan: Very brief supraventricular runs noted on event monitoring. Patient symptomatic. Start on metoprolol extended release 25 mg daily. Check echocardiogram. Check exercise stress Myoview. Check TSH, magnesium. Reduce or preferably eliminate caffeine intake. Patient counseled. (2) SVT (supraventricular tachycardia): Status: Chronic Plan: See #1 above. Start on metoprolol ER 25 mg daily. Check echocardiogram. Checkexercise stress Myoview. (3) Hypertension, essential: Status: Chronic Plan: Blood pressure above goal. Continue losartan. Start on metoprolol. (4) Dyslipidemia: Status: Chronic Plan: On pravastatin. PCP managing. (5) Generalized anxiety disorder: Status: Chronic Plan: As per psychiatry/PCP. Plan Details Follow Up: 3 Months Coding Level of Care Code Off vis,new,level 4 Diagnoses Palpitations R00.2 SVT (supraventricular tachycardia) I47.10 Hypertension, essential I10 Dyslipidemia E78.5 Generalized anxiety disorder F41.1 Coding Level of Care Code Off vis,new,level 4 Diagnoses Palpitations R00.2 SVT (supraventricular tachycardia) I47.10 Hypertension, essential I10 Dyslipidemia E78.5 Generalized anxiety disorder F41.1 Clinical Quality Measures Falls Risk Screening/Assistive Devices Have you fallen in the past year?: No 09/19/24 1508 > Date _ Bg Goldstein MD Cosigner Signature: Date (if applicable) CC: ~ [facility]06-02-2025 Progress note Author Bg Goldstein [facility] Note Date/Time September 19, 2024 3:08p [facility] [address] [place], [place] [address] OFFICE VISIT Date of Service: 09/19/24 MR#: [id number] Acct: [id number] Name: LILLIAN VELAZQUEZ Rep #: [id number] : 1955 Provider: Dr. Regis Goldstein MD Age/Sex: 68/F Location[place] [facility] Status: Signed HPI HPI History of Present Illness Details: This lady with past medical history significant for generalized anxiety disorder, hypertension and dyslipidemia is here for establishing cardiac care. Recently she has had event monitoring done for her complaints of palpitations. It showed few brief supraventricular runs. The longest run was 11 beats long. Per patient, she started having palpitations over the last year or so. She feels her heart fluttering for a few seconds at most. Occasionally feels lightheaded with that. No syncope. Question of presyncope. No associated chest pain. Some shortness of breath associated with these. Denies any chest pains at rest or with exertion. Denies orthopnea. No PND. Noankle edema. Patient has history of hypothyroidism and is on thyroid replacement therapy. Admits to drinking couple of cups of coffee every day. Denies EtOH or substanceabuse. Intake Vital Signs 06/29/22 13:23 09/15/24 18:27 09/19/24 11:28 Height 5 ft 2 in 5 ft 2 in Weight: 116 lb 118 lb BMI 21.5 BP 149/94 H Blood Pressure Location Lt brachial Position Sitting Respiration 18 Pulse 61 Pulse Source NIBP Intake Visit Reasons: SVT (GO) Registered Representative Required: No Accompanied by: Is patient in pain?: No Allergies amoxicillin (From Augmentin) Adverse Reaction (Intermediate, Verified 09/19/24 14:33) diarrhea clavulanic acid (From Augmentin) Adverse Reaction (Intermediate, Verified 09/19/24 14:33) diarrhea Medications ?Medication ?Instructions ?Recorded ?Confirmed ?Type cholecalciferol (vitamin D3) 25 25 mcg PO DAILY 09/19/24 History mcg (1,000 unit) capsule diphenhydramine HCl 25 mg tablet 25 mg PO .prn PRN Hea deneen 10/25/20 09/19/24 History (Benadryl Allergy) gabapentin 300 mg capsule 300 mg PO QHS 10/25/2009/19 History levothyroxine 88 mcg tablet 88 mcg PO DAILY 10/25/20 0 09/19/24 History trazodone 50 mg tablet 150 mg PO QHS 10/25/2009/19 History alprazolam 0.5 mg tablet (Xanax) 0.5 mg PO .as needed for flying #7 12/14/20 09/19/24 Rx tabs oxycodone-acetaminophen 5 mg-325 1 tab PO Q8H PRN pain 5 days #14 06/29/22 09/19/24 Rx mg tablet (Endocet) tabs betamethasone dipropionate 0.05 % 1 applic topical BID PRN 09/15/24 09/19/24 History topical cream buspirone 5 mg tablet 5 mg PO TID PRN 09/15/2406/14 History dicyclomine 10 mg capsule 10 mg PO TID 09/15/24 History docosahexaenoic acid PO DAILY 09/15/24 09/19/24 H istory losartan 50 mg tablet 50 mg PO QDAY 09/15/2409/19 History mzkfcnyr-jvl-pcgt-FA-vit K-lut PO DAILY 09/15/2409/19 History [Multivitamin Women 50 Plus] pravastatin 20 mg tablet 20 mg PO QHS 09/15/24 History turmeric PO DAILY 09/15/24 09/19/24 H istory Have you fallen in the past year?: No PFSH Medical History Alcohol use Anxiety Back pain Breast lump Depression Elevated blood sugar Generalized anxiety disorder GERD (gastroesophageal reflux disease) Headache Heartburn Hyperlipidemia Hyperlipidemia, mixed Hypernatremia Hypertension Hypertension, essential Hypoglycemia IBS (irritable bowel syndrome) Leg cramps Lumbar back pain Non-smoker Osteopenia, senile Palpitations Plantar fasciitis Post-menopausal Postoperative hypothyroidism Postoperative primary hypothyroidism Primary insomnia Restless legs Seasonal allergies Thyroid disease UTI (urinary tract infection) Wears glasses Surgical History H/O dilation and curettage H/O removal of cyst H/O shoulder surgery H/O spinal fusion H/O thyroidectomy Family History Grandmother Anxiety Diabetes High cholesterol CVA (cerebral vascular accident) Mother Cancer Father Depression Hypertension Kidney disease Sister Depression Hypertension Brother Depression Aunt Ovarian cancer Grandfather Myocardial infarction Social History Smoking Status: Never smoker Electronic Cigarette Use: not used alcohol intake: current alcohol intake frequency: a few times a week substance use type: does not use what type of physical activity do you participate in: walking ROS Const Const: Positive for fatigue and weakness (episodic); Negative for headache(s) or weight gain ENT ENT: Positive for dizziness and balance problems; Negative for headache(s) or Nosebleed/epistaxis Cardio Chest Pain: No Palpitations: Yes Edema: None Muscle aches with walking: None Resp Respiratory: Positive for SOB with activity and SOB at rest; Negative for SOB orthopneaundefinedSOB lying down GI GI: Negative nausea, vomiting or heartburn Musc Musc: Positive for muscle aches/ myalgia (BLE) and balance problems; Negative for muscle weakness or joint pain Neuro Neuro: Positive for dizziness and weakness (episodic); Negative for lightheadedness, near syncope, syncope or headache(s) Endo Endo: Positive for fatigue Cardiology Exam Const Appearance: comfortable and no acute distress Nutritional Appearance: well nourished Neck Neck: no JVD Carotids: Negative bruit Chest Auscultation: Bilateral: Clear to Auscultation Cardio Rate: regular rate Rhythm: regular rhythm Heart sounds: S1 normal and S2 normal Neuro General: patient alert, patient awake and patient oriented x3 Extremities Lower Extremity Edema: None: Bilateral Supplemental Info Supplemental Information 14-Day Cardiac Event Monitor 09/02/2024: Preliminary Findings: Patient had a min HR of 38 bpm, max HR of 185 bpm, and avg HR of 62 bpm. Predominant underlying rhythm was Sinus Rhythm. 17 Supraventricular Tachycardia runs occurred, the run with the fastest interval lasting 11 beats with a max rate of 185 bpm, the longest lasting 15 beats with an avg rate of 111 bpm. Supraventricular Tachycardia was detected within +/- 45 seconds of symptomatic patient event(s). Isolated SVEs were rare (<1%). Isolated VEs were rare (<1%), and no VE Couplets or VE Triplets were present. Ventricular Bigeminy was present. Assessment and Plan Assessment and Plan (1) Palpitations: Status: Chronic Plan: Very brief supraventricular runs noted on event monitoring. Patient symptomatic. Start on metoprolol extended release 25 mg daily. Check echocardiogram. Check exercise stress Myoview. Check TSH, magnesium. Reduce or preferably eliminate caffeine intake. Patient counseled. (2) SVT (supraventricular tachycardia): Status: Chronic Plan: See #1 above. Start on metoprolol ER 25 mg daily. Check echocardiogram. Checkexercise stress Myoview. (3) Hypertension, essential: Status: Chronic Plan: Blood pressure above goal. Continue losartan. Start on metoprolol. (4) Dyslipidemia: Status: Chronic Plan: On pravastatin. PCP managing. (5) Generalized anxiety disorder: Status: Chronic Plan: As per psychiatry/PCP. Plan Details Follow Up: 3 Months Coding Level of Care Code Off vis,new,level 4 Diagnoses Palpitations R00.2 SVT (supraventricular tachycardia) I47.10 Hypertension, essential I10 Dyslipidemia E78.5 Generalized anxiety disorder F41.1 Coding Level of Care Code Off vis,new,level 4 Diagnoses Palpitations R00.2 SVT (supraventricular tachycardia) I47.10 Hypertension, essential I10 Dyslipidemia E78.5 Generalized anxiety disorder F41.1 Clinical Quality Measures Falls Risk Screening/Assistive Devices Have you fallen in the past year?: No 09/19/24 0172 <Electronically signed by Bg Goldstein MD> Date _ Bg Goldstein MD Cosigner Signature: Date (if applicable) CC: ~ [place] [facility] Work Phone: [phone] 744-940605-29-2025 Telephone encounter Note* Telephone Encounter - New Renee LPN - 09/15/2024 9:42 AM EDT Prescription Refill Information The patient has been identified by name and date of : Yes Caregiver verified no other encounters exist for this prescription request: Yes Caregiver confirmed with patient/requestor that no other refills are due, in the near future, with this provider at this time: Yes The last office visit in the department: 08/25/24 Does the patient have a future office visit with this provider/department: Yes Requested Prescriptions Pending Prescriptions Disp Refills traZODone (DESYREL) 150 mg tablet 90 tablet 1 Sig: Take 1 tablet by mouth daily at bedtime. levothyroxine (SYNTHROID) 88 mcg tablet 90 tablet 1 Sig: Take 1 tablet by mouth daily before breakfast. Take one tablet daily before breakfast New Renee LPN September 15, 2024 9:42 AM [facility]05-29-2025 Miscellaneous Notes* Telephone Encounter - New Renee LPN - 09/15/2024 9:42 AM EDT Prescription Refill Information The patient has been identified by name and date of : Yes Caregiver verified no other encounters exist for this prescription request: Yes Caregiver confirmed with patient/requestor that no other refills are due, in the near future, with this provider at this time: Yes The last office visit in the department: 08/25/24 Does the patient have a future office visit with this provider/department: Yes Requested Prescriptions Pending Prescriptions Disp Refills traZODone (DESYREL) 150 mg tablet 90 tablet 1 Sig: Take 1 tablet by mouth daily at bedtime. levothyroxine (SYNTHROID) 88 mcg tablet 90 tablet 1 Sig: Take 1 tablet by mouth daily before breakfast. Take one tablet daily before breakfast New Renee LPN September 15, 2024 9:42 AM documented in [facility] encounter[facility] Telephone encounter Note * Telephone Encounter - New Renee LPN - 09/15/2024 9:41 AM EDT Prescription Refill Information The patient has been identified by name and date of : Yes Caregiver verified no other encounters exist for this prescription request: Yes Caregiver confirmed with patient/requestor that no other refills are due, in the near future, with this provider at this time: Yes The last office visit in the department: 08/25/24 Does the patient have a future office visit with this provider/department: Yes Requested Prescriptions Pending Prescriptions Disp Refills gabapentin (NEURONTIN) 300 mg capsule 180 capsule 1 Sig: Take 1 capsule by mouth two times a day for 180 days. New Renee LPN September 15, 2024 9:41 AM [facility]05-29-2025 Miscellaneous Notes* Telephone Encounter - New Renee LPN - 09/15/2024 9:41 AM EDT Prescription Refill Information The patient has been identified by name and date of : Yes Caregiver verified no other encounters exist for this prescription request: Yes Caregiver confirmed with patient/requestor that no other refills are due, in the near future, with this provider at this time: Yes The last office visit in the department: 08/25/24 Does the patient have a future office visit with this provider/department: Yes Requested Prescriptions Pending Prescriptions Disp Refills gabapentin (NEURONTIN) 300 mg capsule 180 capsule 1 Sig: Take 1 capsule by mouth two times a day for 180 days. New Renee LPN September 15, 2024 9:41 AM documented in this encounterK[facility] Instructions* Patient Instructions* Aziza Thompson PA-C - 08/25/2024 12:43 PM EDT Discontinue your pravastatin for the next 1-2 weeks to see if your leg and foot cramps improve. Please send a GOVECS message after 2 weeks with an update on your symptoms. Continue taking your current blood pressure medication (losartan) as prescribed since your blood pressure remains stable (around 130/80). Keep monitoring your blood pressure at home and record your readings. For your anxiety, adjust your BuSpar dosing by switching to the 15 mg tablets - take half a tablet twice daily initially. If you tolerate this well and symptoms persist, you may later increase to onetablet twice daily, as discussed. Attend your scheduled blood flow test on September 21, which will help evaluate your leg pain with walking. Continue using the Zio monitoring device until it is removed on Thursday. Keep your upcoming January follow-up appointment; if any new concerns arise with your blood pressure or cramps before then, please contact us via GOVECS. documented in this encounterK[facility]05-[facility]25 NoteHNO ID: [id number] Author: AZIZA THOMPSON PA-C Service: ? Author Type: Physician Clin Tech Type: Progress Notes Filed: 08/25/2024 12:51 Note Text: Chief Complaint Patient presents with: Follow Up: Blood pressure HPI Lillian Velazquez is a 68 year old female who presents here today for Above Complaints.. Hypertension: - Home BP readings: 120s-130s/80s. - Reduced losartan from 50 mg to 25 mg x2 weeks due to leg cramps; BP remains stable. - BP previously increased in May-June, with diastolic readings in the 100s; attributed to stress while caring for elderly father. - Pulse typically in the 50s-60s. Leg Cramps: - Increased frequency and severity of leg and foot cramps over the past few months, interfering with sleep. - Noticed improvement after reducing losartan and discontinuing daytime Neurontin. - Scheduled for a blood flow test on September 21 due to leg cramps and pain with walking. Hyperlipidemia: - On pravastatin since 2022 for elevated cholesterol levels. Anxiety: - Experiencing increased anxiety due to 's cancer recurrence and upcoming major surgery. - Reports feeling off, with periods of numbness and desire to isolate. - Taking BuSpar, finds it helpful but unsure if taking it frequently enough. - History of adverse reactions to SSRIs and Effexor; Wellbutrin was ineffective. Past medical history, appointments, medications, allergies reviewed. Previous Medical History PAST MEDICAL HISTORY Diagnosis Date Elevated blood sugar 11/19/2021 History of COVID-19 11/01/2021 10/11/2021 Hyperlipidemia, mixed 12/24/2022 Hypertension, essential 11/01/2021 Lumbar back pain 05/21/2022 Osteopenia, senile 08/26/2023 Plantar fasciitis 06/02/2024 Rt Heel: injected 05/2024 Postoperative hypothyroidism 11/01/2021 Removed due to goiter. Primary insomnia 11/01/2021 RLS (restless legs syndrome) 11/01/2021 On gabapentin Previous Surgical History PAST SURGICAL HISTORY Procedure Laterality Date COLONOSCOPY 01/22/2023 repeat 5 years CYST/MOLE REMOVAL Left 1977 benign cyst- Left breast PAST SURGICAL HISTORY OF 2018 cervical fusion PAST SURGICAL HISTORY OF 2017 right shoulder decompression PAST SURGICAL HISTORY OF Bilateral foot surgery THYROIDECTOMY 10/2018 due to goiter, no cancer TONSILLECTOMY HX 8 yo Family History FAMILY HISTORY Problem Relation Age of Onset Cancer Mother Lung? other (a. fib) Father other (TIA) Father Hyperlipidemia Father Hypertension Father Hypertension Sister Stroke Maternal Grandmother Diabetes Maternal Grandmother Ischemic Heart Disease Maternal Grandfather Heart disease Maternal Grandfather Stroke Paternal Grandmother Heart Attack Paternal Grandfather Ovarian cancer Maternal Aunt Patient Allergies ALLERGIES Allergen Reactions Augmentin [Amoxicil* GI Upset Current Medications Current Outpatient Medications on File Prior to Visit Medication Sig losartan (COZAAR) 50 mg tablet Take 1 tablet by mouth once daily. Take one tablet daily pravastatin (PRAVACHOL) 20 mg tablet Take 1 tablet by mouth daily at bedtime. traZODone (DESYREL) 150 mg tablet Take 1 tablet by mouth daily at bedtime. levothyroxine (SYNTHROID) 88 mcg tablet Take 1 tablet by mouth daily before breakfast. Take one tablet daily before breakfast busPIRone (BUSPAR) 5 mg tablet Take 1 tablet by mouth three times a day as needed. PRN multivit with minerals/lutein (MULTIVITAMIN 50 PLUS ORAL) Take by mouth once daily. docosahexaenoic acid/epa (FISH OIL ORAL) Take by mouth as directed. TURMERIC ORAL Take by mouth as directed. gabapentin (NEURONTIN) 300 mg capsule Take 1 capsule by mouth two times a day for 180 days. dicyclomine (BENTYL) 10 mg capsule Take 1 capsule by mouth before meals and at bedtime. betamethasone dipropionate (DIPROSONE) 0.05 % cream Apply to affected area twice daily. MAGNESIUM ORAL Take by mouth as directed. (Patient not taking: Reported on 08/25/2024) No current facility-administered medications on file prior to visit. Social History Social History Tobacco Use Smoking status: Never Smokeless tobacco: Never Vaping Use Vaping status: Never Used Substance Use Topics Alcohol use: Not Currently Comment: occasionally Drug use: Never Review of Symptoms REVIEW OF SYSTEMS SEE HPI EXAM: BP 132/82 (BP Site: Right Arm, BP Position: Sitting, BP Cuff Size: Regular Adult) Pulse (!) 53 Temp 36.8 ?C (98.3 ?F) Resp 16 Wt 52.6 kg (116 lb) SpO2 98% BMI 21.35 kg/m? General Appearance: Well appearing, alert, in no acute distress, well-hydrated, well nourished.. Health Maintenance List DTaP,Tdap,Td Vaccine(1 - Tdap) Never done Shingrix Vaccine(1 of 2) Never done BP Controlled (<130/80) due on 07/22/2024 Covid-19 Vaccine( season) due on 02/07/2025 Mammogram Screening due on 07/18/2025 Depression Screening due on 08/08/2025 Anxiety Screening du (more content not included)...[facility] 08-25-2024 History of Present illness Narrative* Aziza Thompson PA-C - 08/25/2024 12:18 PM EDT Chief Complaint Patient presents with: Follow Up: Blood pressure HPI Lillian Velazquez is a 68 year old female who presents here today for Above Complaints.. Hypertension: - Home BP readings: 120s-130s/80s. - Reduced losartan from 50 mg to 25 mg x2 weeks due to leg cramps; BP remains stable. - BP previously increased in May-June, with diastolic readings in the 100s; attributed to stress while caring for elderly father. - Pulse typically in the 50s-60s. Leg Cramps: - Increased frequency and severity of leg and foot cramps over the past few months, interfering with sleep. - Noticed improvement after reducing losartan and discontinuing daytime Neurontin. - Scheduled for a blood flow test on September 21 due to leg cramps and pain with walking. Hyperlipidemia: - On pravastatin since 2022 for elevated cholesterol levels. Anxiety: - Experiencing increased anxiety due to 's cancer recurrence and upcoming major surgery. - Reports feeling off, with periods of numbness and desire to isolate. - Taking BuSpar, finds it helpful but unsure if taking it frequently enough. - History of adverse reactions to SSRIs and Effexor; Wellbutrin was ineffective. Past medical history, appointments, medications, allergies reviewed. Previous Medical History PAST MEDICAL HISTORY Diagnosis Date Elevated blood sugar 11/19/2021 History of COVID-19 11/01/2021 10/11/2021 Hyperlipidemia, mixed 12/24/2022 Hypertension, essential 11/01/2021 Lumbar back pain 05/21/2022 Osteopenia, senile 08/26/2023 Plantar fasciitis 06/02/2024 Rt Heel: injected 05/2024 Postoperative hypothyroidism 11/01/2021 Removed due to goiter. Primary insomnia 11/01/2021 RLS (restless legs syndrome) 11/01/2021 On gabapentin Previous Surgical History PAST SURGICAL HISTORY Procedure Laterality Date COLONOSCOPY 01/22/2023 repeat 5 years CYST/MOLE REMOVAL Left 1977 benign cyst- Left breast PAST SURGICAL HISTORY OF 2018 cervical fusion PAST SURGICAL HISTORY OF 2017 right shoulder decompression PAST SURGICAL HISTORY OF Bilateral foot surgery THYROIDECTOMY 10/2018 due to goiter, no cancer TONSILLECTOMY HX 8 yo Family History FAMILY HISTORY Problem Relation Age of Onset Cancer Mother Lung? other (a. fib) Father other (TIA) Father Hyperlipidemia Father Hypertension Father Hypertension Sister Stroke Maternal Grandmother Diabetes Maternal Grandmother Ischemic Heart Disease Maternal Grandfather Heart disease Maternal Grandfather Stroke Paternal Grandmother Heart Attack Paternal Grandfather Ovarian cancer Maternal Aunt Patient Allergies ALLERGIES Allergen Reactions Augmentin [Amoxicil* GI Upset Current Medications Current Outpatient Medications on File Prior to Visit Medication Sig losartan (COZAAR) 50 mg tablet Take 1 tablet by mouth once daily. Take one tablet daily pravastatin (PRAVACHOL) 20 mg tablet Take 1 tablet by mouth daily at bedtime. traZODone (DESYREL) 150 mg tablet Take 1 tablet by mouth daily at bedtime. levothyroxine (SYNTHROID) 88 mcg tablet Take 1 tablet by mouth daily before breakfast. Take one tablet daily before breakfast busPIRone (BUSPAR) 5 mg tablet Take 1 tablet by mouth three times a day as needed. PRN multivit with minerals/lutein (MULTIVITAMIN 50 PLUS ORAL) Take by mouth once daily. docosahexaenoic acid/epa (FISH OIL ORAL) Take by mouth as directed. TURMERIC ORAL Take by mouth as directed. gabapentin (NEURONTIN) 300 mg capsule Take 1 capsule by mouth two times a day for 180 days. dicyclomine (BENTYL) 10 mg capsule Take 1 capsule by mouth before meals and at bedtime. betamethasone dipropionate (DIPROSONE) 0.05 % cream Apply to affected area twice daily. MAGNESIUM ORAL Take by mouth as directed. (Patient not taking: Reported on 08/25/2024) No current facility-administered medications on file prior to visit. Social History Social History Tobacco Use Smoking status: Never Smokeless tobacco: Never Vaping Use Vaping status: Never Used Substance Use Topics Alcohol use: Not Currently Comment: occasionally Drug use: Never Review of Symptoms REVIEW OF SYSTEMS SEE HPI EXAM: BP 132/82 (BP Site: Right Arm, BP Position: Sitting, BP Cuff Size: Regular Adult) Pulse (!) 53 Temp 36.8 C (98.3 F) Resp 16 Wt 52.6 kg (116 lb) SpO2 98% BMI 21.35 kg/m General Appearance: Well appearing, alert, in no acute distress, well-hydrated, well nourished.. Health Maintenance List DTaP,Tdap,Td Vaccine(1 - Tdap) Never done Shingrix Vaccine(1 of 2) Never done BP Controlled (<130/80) due on 07/22/2024 Covid-19 Vaccine() due on 02/07/2025 Mammogram Screening due on 07/18/2025 Depression Screening due on 08/08/2025 Anxiety Screening due on 08/08/2025 Annual PCP Team Chronic Disease Visit due on 08/25/2025 Diabetes Screening due on 08/09/2027 Colorectal Cancer Screening due on 01/23/2028 Lipid Screening due on 08/08/2029 RSV Vaccine(1 - 1-dose 75+ series) due on 12/15/2031 Bone Density Screening Completed Influenza Vaccine Completed Advance Directive Discussion Completed Pneumococcal Vaccine: 50+ Completed Cervical Cancer Screening Discontinued Hepatitis C Screening Discontinued Data reviewed N/a Assessment and Plan 1. Essential (primary) hypertension (I10) - Blood pressure readings at home are stable, averaging in the low 130s/80s. - Previously increased losartan to 50 mg due to elevated BP readings; patient reduced dose to 25 mgtwo weeks ago due to concerns about leg cramps. - Current BP readings remain stable on the lower dose. - Continue losartan 25 mg daily; monitor BP closely. - If BP remains stable, consider maintaining current dosage. - Follow-up appointment scheduled for January; will adjust treatment if necessary. 2. Palpitations (R00.2) - Patient wearing Zio monitor; scheduled to be removed on Thursday. - Awaiting results to assess for any arrhythmias or concerning findings. - Discussed that palpitations may be benign; monitor for any significant changes. 3. Muscle cramp (R25.2) - Leg and foot cramps have improved but are not completely resolved. - Discussed potential side effects of current medications, including losartan and pravastatin. - Discontinue pravastatin for 1-2 weeks to assess if it is contributing to muscle cramps. - Scheduled blood flow test on September 21 to evaluate for peripheral vascular disease. - If cramps persist, consider trial of a different antihypertensive medication. - we discussed switch to crestor for HLP control. 4. Generalized anxiety disorder (F41.1) - Experiencing increased anxiety due to personal stressors, including 's upcoming surgery. - Currently taking Buspar 5 mg as needed; advised to take it regularly. - Prescribed Buspar 15 mg tablets; instructed to start with 7.5 mg twice daily, increasing to 15 mgtwice daily as needed. - Prescription sent to [facility]. - Discussed potential need for additional antidepressant therapy if anxiety remains uncontrolled. Aziza Thompson PA-C Recording using [employer] software for draft documentation of the visit was discussed with the patient/authorized independent sales representative; all questions welcomed and answered. Patient/authorized independent sales representative agreed to proceed documented in this encounterK[facility] NoteHNO ID: [id number] Author: QUOC MCCRACKEN PT Service: ? Author Type: Physical Therapist Type: Progress Notes Filed: 08/22/2024 14:42 Note Text: Episode Visit Count: 5 Therapist That Will Accept/Oversee The Plan Of Care: Quoc Mccracken PT Start of Care Date: 07/18/24 Onset Date: 06/17/24 Plan of Care Certification Date: 08/22/24 Next Certification Due Date: 10/17/24 Patient Identified by Name and Date of : Yes REHABILITATION AND SPORTS THERAPY PHYSICAL THERAPY PROGRESS REPORT PLAN OF CARE UPDATE: Assessment: Lillian Velazquez demonstrates significant improvement in low back pain and foot pain and lumbar AROM . The patient has progressed toward goals. Patient continues to present with impairments in ADL's and independence in exercise that interfere with nothing . Current prognosis is Good due to: current objective clinical presentation . The patient will benefit from continued skilled therapy services to meet the updated goals for this plan of care as noted below. Goals updated 08/22/2024 Goals for Episode of Care: established 07/18/24 [place] in home exercise program. - MET Perform standing/walking without pain. - MET Improve flexibility of R gastrocnemius to WNL for decreased stress to the R plantar fascia when walking - MET Normal gait.- MET Pt will report being able to do the dishes without pain in 3 weeks or less Not assessed Patient Goals: Help prevent foot pain Time Frame for Goals and Treatment : 08/15/24 Patient Goals: Help prevent foot pain Planned Interventions, Frequency, and Duration: 1 visit, Two months Total Number of Visits Planned: 1 Patient to be seen for Therapeutic exercise (54890), Neuromuscular re-education (82043), Manual therapy (01525), Therapeutic activities (23079), Self-skilled nursing management (87608), Patient/Family/Caregiver Education, Body Mechanics Training PLAN FOR NEXT VISIT: Classification Pain Mechanism Classification: Nociceptive Low Back Pain Classification: Functional Optimization SUBJECTIVE: Pt states she felt good after the DN. She was doing a lot of vaccuuming and she rebounded quickly. No issues with the foot now. No issues with walking. Patient Goals: Help prevent foot pain Functional Limitations: nothing Prior Level of Function: Independent without limitations Intake Information: Prescription present Pain: Pain Additional Pain Information : Location 2 Pain Level 2: 0 Pain Location 2: Low Back/Lumbar Spine- Midline PROMIS Scales 07/16/2024 03/24/2024 02/24/2024 Higher is Better Phys Func - T Score 45 (within normal limits) 51 (within normal limits) 48 (within normal limits) Phys Func - Percentile 31 54 42 Self-Eff Symptom - T Score 42 (Average) 51 (Average) Self-Eff Symptom - Percentile 21 54 08/26/2022 05/20/2022 03/28/2022 Lower is Better Pain Interference - T Score 58 (mild) 60 (mild) 62 (moderate) Pain Interference - Percentile 21 16 12 T-scores: mean of general population = 50. 5 points is clinically meaningfully difference Percentiles provide an indication of how the patient's score ranks in relation to the general population. Higher percentile rankings indicate better function/quality of life. 50th percentile is the average of the general population and indicates half of respondents had a worse score. OBJECTIVE MEASURES WITH LEVEL OF FUNCTION: Spine Observations R Lumbar Spine Palpation Tenderness: Paraspinals Lumbar Spine AROM Lumbar Flexion: Normal Lumbar Extension: Normal Lumbar R Side Verdigre: Normal Lumbar L Side Verdigre: Normal Lumbar R Side-Bend: Normal Lumbar L Side-Bend: Normal LE AROM R LE AROM: WNL L LE AROM: WNL LE Flexibility Flexibility: Gastrocnemius Flexibility R Gastrocnemius Flexibility: WNL L Gastrocnemius Flexibility: WNL TREATMENT: Manual Therapy: 1: All objective measures taken 2: STM bowstringing R lumbar paraspinals minimal pressure 3: Gliding palm inferiorly over paraspinals of lumbar spine 4: DDN in prone (see note for details) Dry needling to following Trigger points: lumbar paraspinals Needle length: 50mm 2.0 in . Gabriels used 2, needles removed 2. Dry needling technique used: Coning and Pistoning. Patient education on purpose, precautions, safety, risks, and other treatment options regarding dry needling. Verbal consent received. Skilled Intervention: Manual skills to improve joint mobility, ROM, and decrease pain. Utilized anatomy knowledge of the clinician, and assessment of patient's response to intervention. Billing Manual TherapyTreatment Minutes: 44 Skilled Treatment Time Minutes (timed and untimed codes): 44 Total Session Time (minutes): 44 Session Start Time : 1351 Session Stop Time : 1435 Quoc Mccracken [facility]05-05-2025 History of Present illness Narrative* Quoc Mccracken PT - 08/22/2024 1:51 PM EDT Images from the original note were not included. Episode Visit Count: 5 Therapist That Will Accept/Oversee The Plan Of Care: Quoc Mccracken PT Start of Care Date: 07/18/24 Onset Date: 06/17/24 Plan of Care Certification Date: 08/22/24 Next Certification Due Date: 10/17/24 Patient Identified by Name and Date of : Yes [facility] PHYSICAL THERAPY PROGRESS REPORT PLAN OF CARE UPDATE: Assessment: Lillian Velazquez demonstrates significant improvement in low back pain and foot pain and lumbar AROM. The patient has progressed toward goals. Patient continues to present with impairments in ADL's and independence in exercise that interfere with nothing . Current prognosis is Good due to: current objective clinical presentation . The patient will benefit from continued skilled therapy services to meet the updated goals for this plan of care as noted below. Goals updated 08/22/2024 Goals for Episode of Care: established 07/18/24 [place] in home exercise program. - MET Perform standing/walking without pain. - MET Improve flexibility of R gastrocnemius to WNL for decreased stress to the R plantar fascia when walking - MET Normal gait.- MET Pt will report being able to do the dishes without pain in 3 weeks or less Not assessed Patient Goals: Help prevent foot pain Time Frame for Goals and Treatment : 08/15/24 Patient Goals: Help prevent foot pain Planned Interventions, Frequency, and Duration: 1 visit, Two months Total Number of Visits Planned: 1 Patient to be seen for Therapeutic exercise (28848), Neuromuscular re-education (51589), Manual therapy (60332), Therapeutic activities (19237), Self-skilled nursing management (35687), Patient/Family/Caregiver Education, Body Mechanics Training PLAN FOR NEXT VISIT: Classification Pain Mechanism Classification: Nociceptive Low Back Pain Classification: Functional Optimization SUBJECTIVE: Pt states she felt good after the DN. She was doing a lot of vaccuuming and she rebounded quickly. No issues with the foot now. No issues with walking. Patient Goals: Help prevent foot pain Functional Limitations: nothing Prior Level of Function: Independent without limitations Intake Information: Prescription present Pain: Pain Additional Pain Information : Location 2 Pain Level 2: 0 Pain Location 2: Low Back/Lumbar Spine- Midline PROMIS Scales 07/16/2024 03/24/2024 02/24/2024 Higher is Better Phys Func - T Score 45 (within normal limits) 51 (within normal limits) 48 (within normal limits) Phys Func - Percentile 31 54 42 Self-Eff Symptom - T Score 42 (Average) 51 (Average) Self-Eff Symptom - Percentile 21 54 08/26/2022 05/20/2022 03/28/2022 Lower is Better Pain Interference - T Score 58 (mild) 60 (mild) 62 (moderate) Pain Interference - Percentile 21 16 12 T-scores: mean of general population = 50. 5 points is clinically meaningfully difference Percentiles provide an indication of how the patient's score ranks in relation to the general population. Higher percentile rankings indicate better function/quality of life. 50th percentile is the average of the general population and indicates half of respondents had a worse score. OBJECTIVE MEASURES WITH LEVEL OF FUNCTION: Spine Observations R Lumbar Spine Palpation Tenderness: Paraspinals Lumbar Spine AROM Lumbar Flexion: Normal Lumbar Extension: Normal Lumbar R Side Verdigre: Normal Lumbar L Side Verdigre: Normal Lumbar R Side-Bend: Normal Lumbar L Side-Bend: Normal LE AROM R LE AROM: WNL L LE AROM: WNL LE Flexibility Flexibility: Gastrocnemius Flexibility R Gastrocnemius Flexibility: WNL L Gastrocnemius Flexibility: WNL TREATMENT: Manual Therapy: 1: All objective measures taken 2: STM bowstringing R lumbar paraspinals minimal pressure 3: Gliding palm inferiorly over paraspinals of lumbar spine 4: DDN in prone (see note for details) Dry needling to following Trigger points: lumbar paraspinals Needle length: 50mm 2.0 in . Gabriels used 2, needles removed 2. Dry needling technique used: Coning and Pistoning. Patient education on purpose, precautions, safety, risks, and other treatment options regarding dry needling. Verbal consent received. Skilled Intervention: Manual skills to improve joint mobility, ROM, and decrease pain. Utilized anatomy knowledge of the clinician, and assessment of patient's response to intervention. Billing Manual TherapyTreatment Minutes: 44 Skilled Treatment Time Minutes (timed and untimed codes): 44 Total Session Time (minutes): 44 Session Start Time : 1351 Session Stop Time : 1435 Quoc Mccracken PT [facility] Tele[facility] encounter Note * Telephone Encounter - GERI PAZ - 08/09/2024 11:11 AM EDT Patient notified of results, verbalizes understanding of instructions. Geri Paz LPN [facility]04-22-2025 Miscellaneous Notes* Telephone Encounter - GERI PAZ - 08/09/2024 11:11 AM EDT Patient notified of results, verbalizes understanding of instructions. Geri Paz LPN * Telephone Encounter - Aziza Thompson PA-C - 08/09/2024 10:32 AM EDT Let patient know that her labs are overall stable. LDL went up some to 132. Maryellen to see these closerto 100. Magnesium is slightly elevated. If she is taking magnesium supplement, she could decrease. Rest of labs are all normal. Aziza Thompson PA-C [facility] Telephone encounter Note * Telephone Encounter - Aziza Thompson PA-C - 08/09/2024 10:32 AM EDT Let patient know that her labs are overall stable. LDL went up some to 132. Maryellen to see these closerto 100. Magnesium is slightly elevated. If she is taking magnesium supplement, she could decrease. Rest of labs are all normal. Aziza Thompson PA-C [facility]04-21-2025 Instructions* Patient Instructions* Aziza Thompson PA-C - 08/08/2024 1:53 PM EDT Take a Vitamin B complex (with atleast 30mg of B6) 3 times a day for nocturnal leg cramps. Screening schedule The following prevention plan is recommended: DTaP,Tdap,Td Vaccine(1 - Tdap) Never done Shingrix Vaccine(1 of 2) Never done BP Controlled (<130/80) due on 07/22/2024 WHAT YOU CAN DO TO PREVENT FALLS Many falls can be prevented. By making some changes, you can lower your chances of falling. Four things YOU can do to prevent falls for you* and your caregiver 1. Begin a regular exercise program Exercise is one of the most important ways to lower your chances of falling. It makes you stronger and helps you feel better. Exercises that improve balance and coordination (like Jose Chi) are the most helpful. Lack of exercise leads to weakness and increases your chances of falling. Ask your doctor or health care provider about the best type of exercise program for you. 2. Have your health care provider review your medicines Have your doctor or pharmacist review all the medicines you take, even [id number] medicines. As you get older, the way medicines work in your body can change. Some medicines, or combinations of medicines, can make you sleepy or dizzy andcan cause you to fall. 3. Have your vision checked Have your eyes checked by an eye doctor at least once a year. You may be wearing the wrong glasses or have a condition like glaucoma or cataracts that limits your vision. Poor vision can increase your chances of falling. 4. Make your home safer About half of all falls happen at home. To make your home safer: Remove things you can trip over (like papers, books, clothes, and shoes) from stairs and places where you walk. Remove small throw rugs or use double-sided tape to keep the rugs from slipping. Keep items you use often in cabinets you can reach easily without using a step stool. Have grab bars put in next to your toilet and in the tub or shower. Use non-slip mats in the bathtub and on shower floors. Improve the lighting in your home. As you get older, you need brighter lights to see well. Hang light-weight curtains or shades to reduce glare. Have handrails and lights put in on all staircases. Wear shoes both inside and outside the house. Avoid going barefoot or wearing slippers. For more information, contact: Centers for Disease Control and Prevention www.cdc.gov/injury * This information may not apply if you have certain medical conditions. documented in this encounterK[facility]04[facility]25 NoteHNO ID: [id number] Author: AZIZA THOMPSON PA-C Service: ? Author Type: Physician Clin Tech Type: Progress Notes Filed: 08/08/2024 14:45 Note Text: Lillian Velazquez is a 68 year old female here for a Medicare wellness visit. Medicare Health Risk Assessment General Health Good Exercise: Minutes/Day 10 min Exercise: Days/Week 3 days Alcohol: Daily Use 2-3 times a week Alcohol: Drinks/Day 1 or 2 Alcohol: 6 or more drinks Never Feel off balance No Concerns: Teeth/Dentures No Concerns: Sexual function Yes Troubled by feelings Anxious; Stressed; Irritable; Lonely Frequency: Eating healthy diet Nearly every day ADLs requiring help None of the above Safety precautions in home/vehicle Yes Smoke, vape, chews tobacco No Difficulty hearing No Difficulty seeing No Current Providers Specialists: I have reviewed specialist-related care of the patient in the medical record. Medical/Family history review Reviewed and updated problem list, medical/surgical/family/social history, medications, and allergies. Opioid use review Opioid Medications (last 90 days) No data to display Anxiety/Depression screening PHQ-9 Score: 5 (Mild Depression) SHAYLA-7 Score: 7 (Mild Anxiety) Recommendation: continuing current treatment plan Cognitive screening Mini Cog Score: 5 Cognitive screening reviewed and No further action needed (score 3-5). Functional Observation Was the patient's Timed Up AND Go test unsteady or >= 12 seconds? No Advance Care Planning Patient did not wish or was not able to name a surrogate decision maker or provide an advance care plan Measurements BP 130/100 (BP Site: Right Arm, BP Position: Sitting, BP Cuff Size: Regular Adult) Pulse 62 Temp 36.9 ?C (98.4 ?F) Resp 16 Ht 157 cm (5' 1.81) Wt 53.5 kg (118 lb) SpO2 97% BMI 21.71 kg/m? Vision Screening: Follows with optometry/ophthalmology Assessment/Plan Medicare annual wellness visit, subsequent (Z00.00) - Counseled on healthy diet and regular exercise - Fall avoidance information provided - Personalized prevention plan provided Chief Complaint Patient presents with: Medicare Wellness Exam HPI Lillian Velazquez is a 68 year old female who presents here today for extensive exam. Patient with hx of HTN, hyperlipidemia, hypothyroidism, elevated blood sugar, and those as below. Annual Wellness Exam: - No recent medical or surgical changes. - Recent eye exam completed. - No advanced directive completed yet. 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 - History of severe anxiety when was first diagnosed with cancer. - Taking BuSpar PRN for anxiety. - Taking gabapentin BID for restless legs and back pain; reports it improves mood. - Unable to tolerate SSRIs. - Recent injection in heel for plantar fasciitis by Dr. Perez; reports significant improvement and no recurrence of pain. - Performing stretching exercises for plantar fasciitis as advised by physical therapist. - High arches and abnormal gait noted. Hypertension: - Reports elevated blood pressure readings since May-June. - Losartan dosage increased from 25 mg to 50 mg in June by Dr. Perez due to elevated readings. - Family history of AFib, hypertension, and CVA in father; heart issues in grandparents; paternal grandfather of a heart attack at a young age. Palpitations: - Palpitations described as pounding and flip-flops in chest, occurring daily, worse after waking up. - Associated with a need to take deep breaths; no associated pain. - Palpitations noticed before and after consuming 2 cups of coffee in the morning. - No history of stress test. Leg Cramps: - Severe leg and foot cramps, especially at night, described as foot drawing down like a claw and extending into the calf. - Cramps occur more frequently, sometimes during the day, particularly after walking and putting groceries in the car. - Taking magnesium at night and using TheraWorks on calves with uncertain benefit. 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 - Feet are always cold; factory maintenance technician mentioned possible Raynaud's syndrome. - Describes a sensation in calves like worms wiggling around. - Recent incident of right knee pain described as something caught under the kneecap, causing limping; similar incident occurred previously with no abnormalities found on x-ray. Past medical history, appointments, medications, allergies reviewed. Previous Medical History PAST MEDICAL HISTORY Diagnosis Date Elevated blood sugar 11/19/2021 History of COVID-19 11/01/2021 10/11/2021 Hyperlipidemia, mixed 12/24/2022 Hypertension, essential 11/01/2021 Lumbar back pain 05/21/2022 Osteopenia, senile 08/26/2023 Plantar fasciitis 06/02/2024 Rt He (more content not included)...[facility]04-21-2025 History of Present illness Narrative* Aziza Thompson PA-C - 08/08/2024 1:29 PM EDT Images from the original note were not included. Lillian Velazquez is a 68 year old female here for a Medicare wellness visit. Medicare Health Risk Assessment General Health Good Exercise: Minutes/Day 10 min Exercise: Days/Week 3 days Alcohol: Daily Use 2-3 times a week Alcohol: Drinks/Day 1 or 2 Alcohol: 6 or more drinks Never Feel off balance No Concerns: Teeth/Dentures No Concerns: Sexual function Yes Troubled by feelings Anxious; Stressed; Irritable; Lonely Frequency: Eating healthy diet Nearly every day ADLs requiring help None of the above Safety precautions in home/vehicle Yes Smoke, vape, chews tobacco No Difficulty hearing No Difficulty seeing No Current Providers Specialists: I have reviewed specialist-related care of the patient in the medical record. Medical/Family history review Reviewed and updated problem list, medical/surgical/family/social history, medications, and allergies. Opioid use review Opioid Medications (last 90 days) No data to display Anxiety/Depression screening PHQ-9 Score: 5 (Mild Depression) SHAYLA-7 Score: 7 (Mild Anxiety) Recommendation: continuing current treatment plan Cognitive screening Mini Cog Score: 5 Cognitive screening reviewed and No further action needed (score 3-5). Functional Observation Was the patient's Timed Up & Go test unsteady or >= 12 seconds? No Advance Care Planning Patient did not wish or was not able to name a surrogate decision maker or provide an advance care plan Measurements BP 130/100 (BP Site: Right Arm, BP Position: Sitting, BP Cuff Size: Regular Adult) Pulse 62 Temp 36.9 C (98.4 F) Resp 16 Ht 157 cm (5' 1.81) Wt 53.5 kg (118 lb) SpO2 97% BMI 21.71 kg/m Vision Screening: Follows with optometry/ophthalmology Assessment/Plan Medicare annual wellness visit, subsequent (Z00.00) - Counseled on healthy diet and regular exercise - Fall avoidance information provided - Personalized prevention plan provided Chief Complaint Patient presents with: Medicare Wellness Exam HPI Lillian Velazquez is a 68 year old female who presents here today for extensive exam. Patient with hx of HTN, hyperlipidemia, hypothyroidism, elevated blood sugar, and those as below. Annual Wellness Exam: - No recent medical or surgical changes. - Recent eye exam completed. - No advanced directive completed yet. 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 - History of severe anxiety when was first diagnosed with cancer. - Taking BuSpar PRN for anxiety. - Taking gabapentin BID for restless legs and back pain; reports it improves mood. - Unable to tolerate SSRIs. - Recent injection in heel for plantar fasciitis by Dr. Perez; reports significant improvement andno recurrence of pain. - Performing stretching exercises for plantar fasciitis as advised by physical therapist. - High arches and abnormal gait noted. Hypertension: - Reports elevated blood pressure readings since May-June. - Losartan dosage increased from 25 mg to 50 mg in June by Dr. Perez due to elevated readings. - Family history of AFib, hypertension, and CVA in father; heart issues in grandparents; paternal grandfather of a heart attack at a young age. Palpitations: - Palpitations described as pounding and flip-flops in chest, occurring daily, worse after waking up. - Associated with a need to take deep breaths; no associated pain. - Palpitations noticed before and after consuming 2 cups of coffee in the morning. - No history of stress test. Leg Cramps: - Severe leg and foot cramps, especially at night, described as foot drawing down like a claw andextending into the calf. - Cramps occur more frequently, sometimes during the day, particularly after walking and putting groceries in the car. - Taking magnesium at night and using TheraWorks on calves with uncertain benefit. 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 - Feet are always cold; factory maintenance technician mentioned possible Raynaud's syndrome. - Describes a sensation in calves like worms wiggling around. - Recent incident of right knee pain described as something caught under the kneecap, causing limping; similar incident occurred previously with no abnormalities found on x-ray. Past medical history, appointments, medications, allergies reviewed. Previous Medical History PAST MEDICAL HISTORY Diagnosis Date Elevated blood sugar 11/19/2021 History of COVID-19 11/01/2021 10/11/2021 Hyperlipidemia, mixed 12/24/2022 Hypertension, essential 11/01/2021 Lumbar back pain 05/21/2022 Osteopenia, senile 08/26/2023 Plantar fasciitis 06/02/2024 Rt Heel: injected 05/2024 Postoperative hypothyroidism 11/01/2021 Removed due to goiter. Primary insomnia 11/01/2021 RLS (restless legs syndrome) 11/01/2021 On gabapentin Previous Surgical History PAST SURGICAL HISTORY Procedure Laterality Date COLONOSCOPY 01/22/2023 repeat 5 years CYST/MOLE REMOVAL Left 1978 benign cyst- Left breast PAST SURGICAL HISTORY OF 2018 cervical fusion PAST SURGICAL HISTORY OF 2017 right shoulder decompression PAST SURGICAL HISTORY OF Bilateral foot surgery THYROIDECTOMY 10/2018 due to goiter, no cancer TONSILLECTOMY HX 8 yo Family History FAMILY HISTORY Problem Relation Age of Onset Cancer Mother Lung? other (a. fib) Father other (TIA) Father Hyperlipidemia Father Hypertension Father Hypertension Sister Stroke Maternal Grandmother Diabetes Maternal Grandmother Ischemic Heart Disease Maternal Grandfather Heart disease Maternal Grandfather Stroke Paternal Grandmother Heart Attack Paternal Grandfather Ovarian cancer Maternal Aunt Patient Allergies ALLERGIES Allergen Reactions Augmentin [Amoxicil* GI Upset Current Medications Current Outpatient Medications on File Prior to Visit Medication Sig pravastatin (PRAVACHOL) 20 mg tablet Take 1 tablet by mouth daily at bedtime. traZODone (DESYREL) 150 mg tablet Take 1 tablet by mouth daily at bedtime. levothyroxine (SYNTHROID) 88 mcg tablet Take 1 tablet by mouth daily before breakfast. Take one tablet daily before breakfast busPIRone (BUSPAR) 5 mg tablet Take 1 tablet by mouth three times a day as needed. PRN multivit with minerals/lutein (MULTIVITAMIN 50 PLUS ORAL) Take by mouth once daily. docosahexaenoic acid/epa (FISH OIL ORAL) Take by mouth as directed. MAGNESIUM ORAL Take by mouth as directed. TURMERIC ORAL Take by mouth as directed. gabapentin (NEURONTIN) 300 mg capsule Take 1 capsule by mouth two times a day for 180 days. dicyclomine (BENTYL) 10 mg capsule Take 1 capsule by mouth before meals and at bedtime. betamethasone dipropionate (DIPROSONE) 0.05 % cream Apply to affected area twice daily. losartan (COZAAR) 25 mg tablet Take 1 tablet by mouth once daily. Take one tablet daily No current facility-administered medications on file prior to visit. Social History Social History Tobacco Use Smoking status: Never Smokeless tobacco: Never Vaping Use Vaping status: Never Used Substance Use Topics Alcohol use: Not Currently Comment: occasionally Drug use: Never Review of Symptoms REVIEW OF SYSTEMS Cardiovascular: (+) palpitations, (-) chest pain Respiratory: (+) shortness of breath Musculoskeletal: (+) foot cramps, (+) calf cramps, (+) right knee pain Neurological: (+) restless legs Psychiatric: (+) anxiety SEE HPI EXAM: BP 130/100 (BP Site: Right Arm, BP Position: Sitting, BP Cuff Size: Regular Adult) Pulse 62 Temp 36.9 C (98.4 F) Resp 16 Ht 157 cm (5' 1.81) Wt 53.5 kg (118 lb) SpO2 97% BMI 21.71 kg/m BP 143/85 (BP Site: Right Arm, BP Position: Sitting, BP Cuff Size: Regular Adult) Pulse (!) 58 Temp 36.9 C (98.4 F) Resp 16 Ht 157 cm (5' 1.81) Wt 53.5 kg (118 lb) SpO2 97% BMI 21.71 kg/m General Appearance: Well appearing, alert, in no acute distress, well-hydrated, well nourished.. Skin: Skin color, texture, turgor normal, no suspicious rashes or lesions. Head: Normocephalic, no masses, lesions, tenderness or abnormalities. Eyes: Anicteric sclera. Pupils are equally round and reactive to light. Extraocular movements are intact. . Ears: External ears normal, canals clear, TMs pearly marks. Nose/Sinuses: Nares normal, septum midline, mucosa normal, no drainage or sinus tenderness. Oropharynx: Lips, mucosa, and tongue normal, teeth and gums normal, oropharynx normal. Neck: Supple, no adenopathy; thyroid symmetric, normal size, no bruits. Lungs: Lungs clear to auscultation. No wheezing, rhonchi, rales.. Heart: RRR without murmur, gallop, or rubs. No ectopy. Abdomen: Normal abdominal exam, Abdomen soft, non-tender. Bowel sounds normal. No masses, organomegaly. Extremities: No deformities, edema, skin discoloration, clubbing or cyanosis. Good capillary refill. . Musculoskeletal: No joint swelling, deformity, or tenderness. Peripheral Pulses: Normal. Neurologic: Gait normal. Reflexes normal and symmetric. Sensation grossly intact.. Health Maintenance List DTaP,Tdap,Td Vaccine(1 - Tdap) Never done Shingrix Vaccine(1 of 2) Never done BP Controlled (<130/80) due on 07/22/2024 Covid-19 Vaccine() due on 02/07/2025 Mammogram Screening due on 07/18/2025 Annual PCP Team Chronic Disease Visit due on 08/08/2025 Depression Screening due on 08/08/2025 Anxiety Screening due on 08/08/2025 Diabetes Screening due on 02/07/2027 Colorectal Cancer Screening due on 01/23/2028 Lipid Screening due on 02/07/2029 RSV Vaccine(1 - 1-dose 75+ series) due on 12/15/2031 Bone Density Screening Completed Influenza Vaccine Completed Advance Directive Discussion Completed Pneumococcal Vaccine: 50+ Completed Cervical Cancer Screening Discontinued Hepatitis C Screening Discontinued Data reviewed ECG: sinus linwood. Otherwise normal. Assessment and Plan 1. Encounter for Medicare annual wellness exam (Z00.00) - Completed Medicare annual wellness exam. - No significant medical or surgical changes in the past 6 months.. - Follow-up with eye doctor recently completed. 2. Advance directive discussed with patient (Z71.89) - Discussed the importance of completing an advance directive; patient has paperwork at home and plans to complete it. 3. Screening for depression (Z13.31) - Screening completed; no changes to current management. 4. Hypertension, essential (I10) - Blood pressure has been elevated more than usual since . - Currently on Losartan 50 mg daily; dosage was increased from 25 mg in June due to elevated readings. forgot to take rx today. - Will recheck blood pressure before patient leaves. - if still elevated, repeat in 3-4 weeks. 5. Encounter for screening examination for other mental health and behavioral disorders (Z13.39) - Currently managed with BuSpar as needed for anxiety. - Taking gabapentin twice daily, which has been noted to improve mood. - Discussed potential mood-stabilizing effects of gabapentin. - Unable to tolerate SSRIs. 6. Hyperlipidemia, mixed (E78.2) - No changes discussed. 7. Postoperative hypothyroidism (E89.0) - Ordered labs to assess thyroid function. 8. Palpitations (R00.2) - Palpitations occurring daily, worse after waking and throughout the day. - Family history of AFib and other cardiac issues. - Ordered EKG to be performed today.- this was normal - Discussed potential causes including caffeine, stress, and anxiety. - Ordered stress test and Holter monitor (zio patch) for 2 weeks to monitor cardiac activity. - Will also get stress test completed. 9. Elevated blood sugar (R73.9) await labs 10. Plantar fasciitis (M72.2) - Recent heel injection by Dr. Perez with significant improvement. - Continuing with stretching exercises as advised by physical therapist. 11. RLS (restless legs syndrome) (G25.81) - Managed with gabapentin at night. - Discussed potential relation to nocturnal leg cramps. 12. Nocturnal leg cramps (G47.62) - Severe leg and foot cramps, especially at night, increasing in frequency and intensity. - Taking magnesium at night and using [employer] topical foam. - Ordered labs to assess for potential deficiencies or contributing factors. - Recommended starting a B-complex vitamin with at least 30 mg of B6, three times a day; can titrate up from once daily. 13. Claudication (I73.9) - Experiencing leg cramps during and after walking, particularly in the right leg. - Ordered vascular studies to assess blood flow to the feet, including exercise testing. Aziza Thompson PA-C I spent a total of 45 minutes on the date of the service which included preparing to see the patient, [id number] patient care, completing clinical documentation, obtaining and/or reviewing separately obtained history, performing a medically appropriate examination, counseling and educating the pat ient/family/caregiver, ordering medications, tests, or procedures, and communicating results to thepatient/family/caregiver. Recording using [employer] software for draft documentation of the visit was discussed with the patient/authorized independent sales representative; all questions welcomed and answered. Patient/authorized independent sales representative agreed to proceed documented in this encounterK[facility]04[facility] NoteHNO ID: [id number] Author: ASHOK DESAI MD Service: ? Author Type: Physician Type: Procedures Filed: 09/06/2024 16:10 Note Text: Patient Name: Lillian Velazquez : 1955 Ordering Provider: Aziza Thompson Indication: R00.2 Palpitations Type of Monitor: Extended Monitoring-Zio Patch Enrollment Dates: 08/15/2024-08/29/2024 IRHYTHM FINDINGS: Patient had a min HR of 38 bpm, max HR of 185 bpm, and avg HR of 62 bpm. Predominant underlying rhythm was Sinus Rhythm. 17 Supraventricular Tachycardia runs occurred, the run with the fastest interval lasting 11 beats with a max rate of 185 bpm, the longest lasting 15 beats with an avg rate of 111 bpm. Supraventricular Tachycardia was detected within +/- 45 seconds of symptomatic patient event(s). Isolated SVEs were rare (< 1.0%), SVE Couplets were rare (<1.0%), and SVE Triplets were rare (<1.0%). Isolated VEs were rare (<1.0%), and no VE Couplets or VE Triplets were present. Ventricular Bigeminy was present.[facility]04-17-2025 NoteHNO ID: [id number] Author: QUOC MCCRACKEN PT Service: ? Author Type: Physical Therapist Type: Progress Notes Filed: 08/22/2024 13:53 Note Text: Episode Visit Count: 2 Therapist That Will Accept/Oversee The Plan Of Care: Quoc Mccracken PT Start of Care Date: 07/18/24 Onset Date: 06/17/24 Plan of Care Certification Date: 07/18/24 Next Certification Due Date: 08/22/24 Patient Identified by Name and Date of : Yes REHABILITATION AND SPORTS THERAPY PHYSICAL THERAPY PROGRESS REPORT PLAN OF CARE UPDATE: Assessment: Lillian Velazquez demonstrates improvements in heel pain and lumbar pain. The patient has demonstrated good tolerance to DDN without any bleeding or unexpected issues. Patient continues to present with impairments in flexibility, independence in exercise, range of motion, and tissue tenderness that interfere with walking, standing . Current prognosis is Good due to: current objective clinical presentation . The patient will benefit from continued skilled therapy services to meet the updated goals for this plan of care as noted below. Goals updated 08/04/2024 Goals for Episode of Care: established 07/18/24 [place] in home exercise program. - MET Perform standing/walking without pain. - MET Improve flexibility of R gastrocnemius to WNL for decreased stress to the R plantar fascia when walking - Nearly met Normal gait.- MET Pt will report being able to do the dishes without pain in 3 weeks or less (NEW) Patient Goals: Help prevent foot pain Time Frame for Goals and Treatment : 08/15/24 Patient Goals: Help prevent foot pain Planned Interventions, Frequency, and Duration: 1x/month, One month Total Number of Visits Planned: 1 Patient to be seen for Therapeutic exercise (88410), Neuromuscular re-education (12557), Manual therapy (46861), Therapeutic activities (77821), Self-skilled nursing management (19301), Patient/Family/Caregiver Education, Body Mechanics Training PLAN FOR NEXT VISIT: DDN as needed. Classification Pain Mechanism Classification: Nociceptive Low Back Pain Classification: Movement Control SUBJECTIVE: Hoping to get some needling in the low back. Got back from a drive and is hurting from that. Last night she was fixing dinner and was in a lot of pain. She was doing the dishes and had quite a bit of low back pain. Patient Goals: Help prevent foot pain Functional Limitations: walking, standing Pain: Pain Pain Level: 0 Description: Sore Additional Pain Information : Location 2 Pain Level 2: 6 (Last night wne cooking) Pain Location 2: Low Back/Lumbar Spine- Midline PROMIS Scales 07/16/2024 03/24/2024 02/24/2024 Higher is Better Phys Func - T Score 45 (within normal limits) 51 (within normal limits) 48 (within normal limits) Phys Func - Percentile 31 54 42 Self-Eff Symptom - T Score 42 (Average) 51 (Average) Self-Eff Symptom - Percentile 21 54 08/26/2022 05/20/2022 03/28/2022 Lower is Better Pain Interference - T Score 58 (mild) 60 (mild) 62 (moderate) Pain Interference - Percentile 21 16 12 T-scores: mean of general population = 50. 5 points is clinically meaningfully difference Percentiles provide an indication of how the patient's score ranks in relation to the general population. Higher percentile rankings indicate better function/quality of life. 50th percentile is the average of the general population and indicates half of respondents had a worse score. OBJECTIVE MEASURES WITH LEVEL OF FUNCTION: Spine Observations R Lumbar Spine Palpation Tenderness: Paraspinals (Very tender from L3-L5) Lumbar Spine AROM Lumbar Flexion: Normal Lumbar Extension: Minimal limitation, Increased pain Lumbar R Side Verdigre: Normal Lumbar L Side Verdigre: Minimal limitation Lumbar R Side-Bend: Normal Lumbar L Side-Bend: Minimal limitation LE AROM R LE AROM: WNL L LE AROM: WNL LE Flexibility Flexibility: Gastrocnemius Flexibility R Gastrocnemius Flexibility: Minimal tightness L Gastrocnemius Flexibility: Minimal tightness Lumbar AROM improved to WNL in all directions without pain post DDN TREATMENT: Manual Therapy: 1: All objective measures taken 2: STM bowstringing R lumbar paraspinals minimal pressure 3: DDN R lumbar paraspinals in prone (See note for details) Dry needling to following Trigger points: R lumbar paraspinals Needle length: 50mm 2.0 in . Gabriels used 2, needles removed 2. Dry needling technique used: Coning, Pistoning, and Deep needling. Patient education on purpose, precautions, safety, risks, and other treatment options regarding dry needling. Verbal consent received. Skilled Intervention: Manual skills to improve joint mobility, ROM, and decrease pain. Utilized anatomy knowledge of the therapist, and assessment of patient's response to intervention. Billing Manual TherapyTreatment Minutes: 34 Skilled Treatment Time Minutes (timed and untimed codes): 34 Total Session Time (minutes): 34 Session Sta (more content not included)...[facility]04-17-2025 History of Present illness Narrative* Quoc Mccracken PT - 08/04/2024 1:58 PM EDT Images from the original note were not included. Episode Visit Count: 2 Therapist That Will Accept/Oversee The Plan Of Care: Quoc Mccracken PT Start of Care Date: 07/18/24 Onset Date: 06/17/24 Plan of Care Certification Date: 07/18/24 Next Certification Due Date: 08/22/24 Patient Identified by Name and Date of : Yes REHABILITATION AND SPORTS THERAPY PHYSICAL THERAPY PROGRESS REPORT PLAN OF CARE UPDATE: Assessment: Lillian Maren demonstrates improvements in heel pain and lumbar pain. The patient has demonstrated good tolerance to DDN without any bleeding or unexpected issues. Patient continues to present withimpairments in flexibility, independence in exercise, range of motion, and tissue tenderness that interfere with walking, standing . Current prognosis is Good due to: current objective clinical presentation . The patient will benefit from continued skilled therapy services to meet the updated goalsfor this plan of care as noted below. Goals updated 08/04/2024 Goals for Episode of Care: established 07/18/24 [place] in home exercise program. - MET Perform standing/walking without pain. - MET Improve flexibility of R gastrocnemius to WNL for decreased stress to the R plantar fascia when walking - Nearly met Normal gait.- MET Pt will report being able to do the dishes without pain in 3 weeks or less (NEW) Patient Goals: Help prevent foot pain Time Frame for Goals and Treatment : 08/15/24 Patient Goals: Help prevent foot pain Planned Interventions, Frequency, and Duration: 1x/month, One month Total Number of Visits Planned: 1 Patient to be seen for Therapeutic exercise (06304), Neuromuscular re-education (05076), Manual therapy (77852), Therapeutic activities (48302), Self-skilled nursing management (41745), Patient/Family/Caregiver Education, Body Mechanics Training PLAN FOR NEXT VISIT: DDN as needed. Classification Pain Mechanism Classification: Nociceptive Low Back Pain Classification: Movement Control SUBJECTIVE: Hoping to get some needling in the low back. Got back from a drive and is hurting from that. Last night she was fixing dinner and was in a lot of pain. She was doing the dishes and had quite a bit of low back pain. Patient Goals: Help prevent foot pain Functional Limitations: walking, standing Pain: Pain Pain Level: 0 Description: Sore Additional Pain Information : Location 2 Pain Level 2: 6 (Last night wne cooking) Pain Location 2: Low Back/Lumbar Spine- Midline PROMIS Scales 07/16/2024 03/24/2024 02/24/2024 Higher is Better Phys Func - T Score 45 (within normal limits) 51 (within normal limits) 48 (within normal limits) Phys Func - Percentile 31 54 42 Self-Eff Symptom - T Score 42 (Average) 51 (Average) Self-Eff Symptom - Percentile 21 54 08/26/2022 05/20/2022 03/28/2022 Lower is Better Pain Interference - T Score 58 (mild) 60 (mild) 62 (moderate) Pain Interference - Percentile 21 16 12 T-scores: mean of general population = 50. 5 points is clinically meaningfully difference Percentiles provide an indication of how the patient's score ranks in relation to the general population. Higher percentile rankings indicate better function/quality of life. 50th percentile is the average of the general population and indicates half of respondents had a worse score. OBJECTIVE MEASURES WITH LEVEL OF FUNCTION: Spine Observations R Lumbar Spine Palpation Tenderness: Paraspinals (Very tender from L3-L5) Lumbar Spine AROM Lumbar Flexion: Normal Lumbar Extension: Minimal limitation, Increased pain Lumbar R Side Verdigre: Normal Lumbar L Side Verdigre: Minimal limitation Lumbar R Side-Bend: Normal Lumbar L Side-Bend: Minimal limitation LE AROM R LE AROM: WNL L LE AROM: WNL LE Flexibility Flexibility: Gastrocnemius Flexibility R Gastrocnemius Flexibility: Minimal tightness L Gastrocnemius Flexibility: Minimal tightness Lumbar AROM improved to WNL in all directions without pain post DDN TREATMENT: Manual Therapy: 1: All objective measures taken 2: STM bowstringing R lumbar paraspinals minimal pressure 3: DDN R lumbar paraspinals in prone (See note for details) Dry needling to following Trigger points: R lumbar paraspinals Needle length: 50mm 2.0 in . Needlesused 2, needles removed 2. Dry needling technique used: Coning, Pistoning, and Deep needling. Patient education on purpose, precautions, safety, risks, and other treatment options regarding dry needling. Verbal consent received. Skilled Intervention: Manual skills to improve joint mobility, ROM, and decrease pain. Utilized anatomy knowledge of the therapist, and assessment of patient's response to intervention. Billing Manual TherapyTreatment Minutes: 34 Skilled Treatment Time Minutes (timed and untimed codes): 34 Total Session Time (minutes): 34 Session Start Time : 1358 Session Stop Time : 1432 Quoc Mccracken PT documented in this encounterK[facility]04-[facility] Telephone encounter Note * Telephone Encounter - Remy Perez MD - 07/24/2024 2:42 PM EDT PHYSICAL THERAPY order placed. [facility]04-06-2025 Miscellaneous Notes* Telephone Encounter - Remy Perez MD - 07/24/2024 2:42 PM EDT PHYSICAL THERAPY order placed. * Telephone Encounter - Gail Poasda RN - 07/20/2024 3:11 PM EDT Called and spoke with patient regarding her back pain. Patient states that the issues she is havingis a chronic issue. Patient states that she has had x ray and MRI testing done that has showed thatnothing is wrong. Patient states that previous dry needling has worked previously on her chronic back pain. Patient asking if provider can order PT for her chronic back pain. Patient is aware that Dr. Perez is out of office this week and will wait till Dr. Perez responds to message. Gail Posada RN documented in this encounterK[facility]04-02-2025 Telephone encounter Note * Telephone Encounter - Gail Posada RN - 07/20/2024 3:11 PM EDT Called and spoke with patient regarding her back pain. Patient states that the issues she is havingis a chronic issue. Patient states that she has had x ray and MRI testing done that has showed thatnothing is wrong. Patient states that previous dry needling has worked previously on her chronic back pain. Patient asking if provider can order PT for her chronic back pain. Patient is aware that Dr. Perez is out of office this week and will wait till Dr. Perez responds to message. Gail Posada RN [facility]04-02-2025 Telephone encounter Note* Telephone Encounter - Jarad Paredes MD - 07/20/2024 11:20 AM EDT This question was addressed on mychart message from 07/18. See other message and close this encounter please to avoid confusion/duplication. [facility] Work Phone: [phone] Miscellaneous Notes* Telephone Encounter - Jarad Paredes MD - 07/20/2024 11:20 AM EDT This question was addressed on [employer] message from 07/18. See other message and close this encounter please to avoid confusion/duplication. documented in this encounterK[facility]04-01-2025 Telephone encounter Note * Telephone Encounter - Aniyah Ramon LPN - 07/19/2024 4:29 PM EDT ----- Message from Jarad Paredes MD sent at 07/19/2024 1:14 PM EDT ----- Negative mammogram. Repeat in 1 year. [facility]04-01-2025 Miscellaneous Notes* Telephone Encounter - Aniyah Ramon LPN - 07/19/2024 4:29 PM EDT ----- Message from Jarad Paredes MD sent at 07/19/2024 1:14 PM EDT ----- Negative mammogram. Repeat in 1 year. documented in this encounterK[facility]03-31-2025 History of Present illness Narrative* Padmini Espinoza Mammo Tech - 07/18/2024 2:10 PM EDT Radiology Service Progress Note PATIENT NAME: Lillian Velazquez DATE OF SERVICE: July 18, 2024 TIME: 2:19 PM PATIENT IDENTITY VERIFICATION COMPLETED USING TWO (2) IDENTIFIERS: Name and Date of confirmedby patient verbally. FALL SCREENING: Has the patient had 2 falls in the last year or 1 fall with injury or currently using an Ambulatory Assistive Device (Walker, Cane, Wheelchair, Crutches, etc.)? No PATIENT GENDER DATA: Assigned female at . status: : No status:NO. PATIENT RELEVANT IMPLANT DATA REVIEWED: Not Applicable PATIENT PRESENTS WITH AN IMPLANTABLE OR ATTACHED CORRESPONDENCE REVIEW CLERK: No RADIOLOGY DEPARTMENT: Mammography PERIPHERAL IV DATA: Not applicable SIGNED BY: Kwesi Layton July 18, 2024 2:19 PM documented in this encounterK[facility]03-31-2025 NoteHNO ID: [id number] Author: PADMINI ESPINOZA Mammo Tech Service: ? Author Type: Roll Tension Tester Type: Progress Notes Filed: 07/18/2024 14:19 Note Text: Radiology Service Progress Note PATIENT NAME: Lillian Velazquez DATE OF SERVICE: July 18, 2024 TIME: 2:19 PM PATIENT IDENTITY VERIFICATION COMPLETED USING TWO (2) IDENTIFIERS: Name and Date of confirmed by patient verbally. FALL SCREENING: Has the patient had 2 falls in the last year or 1 fall with injury or currently using an Ambulatory Assistive Device (Walker, Cane, Wheelchair, Crutches, etc.)? No PATIENT GENDER DATA: Assigned female at . status: : No status: NO. PATIENT RELEVANT IMPLANT DATA REVIEWED: Not Applicable PATIENT PRESENTS WITH AN IMPLANTABLE OR ATTACHED CORRESPONDENCE REVIEW CLERK: No RADIOLOGY DEPARTMENT: Mammography PERIPHERAL IV DATA: Not applicable SIGNED BY: Kwesi Layton July 18, 2024 2:19 [facility]03-31-2025 NoteHNO ID: [id number] Author: QUOC MCCRACKEN PT Service: ? Author Type: Physical Therapist Type: Progress Notes Filed: 07/18/2024 13:43 Note Text: Episode Visit Count: 1 Therapist That Will Accept/Oversee The Plan Of Care: Quoc Mccracken PT Start of Care Date: 07/18/24 Onset Date: 06/17/24 Plan of Care Certification Date: 07/18/24 Next Certification Due Date: 08/22/24 Patient Identified by Name and Date of : Yes REHABILITATION AND SPORTS THERAPY PHYSICAL THERAPY EVALUATION PLAN OF CARE: Assessment: Lillian Velazquez presents with chief complaint of R heel pain that interferes with walking, standing . The patient presents with impairments in flexibility, independence in exercise, and overall function. PROMIS? (Patient-Reported Outcomes Measurement Information System) scores were reviewed and identified as a rehabilitation concern. Prognosis for therapy is Good due to: current objective clinical presentation . The patient will benefit from skilled therapy services to meet the goals established for this plan of care as noted below. Goals for Episode of Care: established 07/18/24 [place] in home exercise program. Perform standing/walking without pain. Improve flexibility of R gastrocnemius to WNL for decreased stress to the R plantar fascia when walking Normal gait. Patient Goals: Help prevent foot pain Time Frame for Goals and Treatment : 08/15/24 Planned Interventions, Frequency, and Duration: Current Frequency: 1x/month Duration: One month Total Number of Visits Planned: 1 Planned Treatment Interventions: Therapeutic exercise (24939), Neuromuscular re-education (85527), Manual therapy (76930), Therapeutic activities (94433), Self-skilled nursing management (63168), Patient/Family/Caregiver Education, Body Mechanics Training PLAN FOR NEXT VISIT: Patient demonstrates good understanding of plan of care and treatment. The above goals and plan of care were discussed and agreed upon by patient/family. SUBJECTIVE: Has been having some plantar fasciitis pain. The heel is very painful. Pt reports she had an injection in the heel and this really helped her pain. The pain has been ongoing for years. Patient Goals: Help prevent foot pain Functional Limitations: walking, standing Prior Level of Function: Independent without limitations Intake Information: Prescription present Previous Treatment: Injections Pain: Pain Pain Level: 0 Pain Location: Foot - Right, Heel - Right Description: Sore PROMIS Scales 07/16/2024 03/24/2024 02/24/2024 Higher is Better Phys Func - T Score 45 (within normal limits) 51 (within normal limits) 48 (within normal limits) Phys Func - Percentile 31 54 42 Self-Eff Symptom - T Score 42 (Average) 51 (Average) Self-Eff Symptom - Percentile 21 54 08/26/2022 05/20/2022 03/28/2022 Lower is Better Pain Interference - T Score 58 (mild) 60 (mild) 62 (moderate) Pain Interference - Percentile 21 16 12 T-scores: mean of general population = 50. 5 points is clinically meaningfully difference Percentiles provide an indication of how the patient's score ranks in relation to the general population. Higher percentile rankings indicate better function/quality of life. 50th percentile is the average of the general population and indicates half of respondents had a worse score. OBJECTIVE MEASURES WITH LEVEL OF FUNCTION: Posture / Alignment R LE Anatomical Alignment Weight-Bearing: R Pes cavus, R Pes planus R LE Anatomical Alignment Non Weight-Bearing: R Pes cavus L LE Anatomical Alignment Non Weight-Bearing: L Pes cavus Ankle Observations R Ankle Palpation Tenderness: Plantar fascia LE AROM R LE AROM: WNL L LE AROM: WNL LE Flexibility Flexibility: Gastrocnemius Flexibility R Gastrocnemius Flexibility: Tight L Gastrocnemius Flexibility: Tight LE Strength R Ankle Inversion: 5/5 L Ankle Inversion: 5/5 Gait Gait Observation: R foot is more externally rotated than the L side. R foot pronate more than the L. Education: Education Learning Preferences: Demonstration, Explanation, Performance, Printed Materials Barriers: None Learning/educational needs: Home exercise program, Plan of Care, Changes in Plan of Care Education Provided: Yes, see treatment interventions for education provided Education Provided To: Patient Education Mode/Type: Demonstration, Explanation/Discussion, Literature/Printed Materials, Performance Response to Education/Teach Back: States/Identifies, Return Demonstration TREATMENT: PT Treatment Interventions: Self-Group Home Management Evaluation Self-Group Home Management: 1: Discussed anatomy of the foot and ankles, focusing on the plantar fascia. Explained the windlas mechanism of the plantar fascia. Discussed the mechanics of the foot and ankle in a perfect scenario and discussed how wearing shoes with arch support can improve pt's mechanics and decrease pain with standing/walking. Jenna (more content not included)...[facility]03-31-2025 History of Present illness Narrative* Quoc Mccracken, PT - 07/18/2024 11:35 AM EDT Images from the original note were not included. Episode Visit Count: 1 Therapist That Will Accept/Oversee The Plan Of Care: Quoc Mccracken PT Start of Care Date: 07/18/24 Onset Date: 06/17/24 Plan of Care Certification Date: 07/18/24 Next Certification Due Date: 08/22/24 Patient Identified by Name and Date of : Yes REHABILITATION AND SPORTS THERAPY PHYSICAL THERAPY EVALUATION PLAN OF CARE: Assessment: Lillian Velazquez presents with chief complaint of R heel pain that interferes with walking, standing . The patient presents with impairments in flexibility, independence in exercise, and overall function. PROMIS (Patient- Reported Outcomes Measurement Information System) scores were reviewed and identified as a rehabilitation concern. Prognosis for therapy is Good due to: current objective clinical presentation . The patient will benefit from skilled therapy services to meet the goalsestablished for this plan of care as noted below. Goals for Episode of Care: established 07/18/24 [place] in home exercise program. Perform standing/walking without pain. Improve flexibility of R gastrocnemius to WNL for decreased stress to the R plantar fascia when walking Normal gait. Patient Goals: Help prevent foot pain Time Frame for Goals and Treatment : 08/15/24 Planned Interventions, Frequency, and Duration: Current Frequency: 1x/month Duration: One month Total Number of Visits Planned: 1 Planned Treatment Interventions: Therapeutic exercise (11685), Neuromuscular re- education (24203), Manual therapy (64851), Therapeutic activities (79890), Self- skilled nursing management (51490), Patient/Family/Caregiver Education, Body Mechanics Training PLAN FOR NEXT VISIT: Patient demonstrates good understanding of plan of care and treatment. The above goals and plan of care were discussed and agreed upon by patient/family. SUBJECTIVE: Has been having some plantar fasciitis pain. The heel is very painful. Pt reports she had an injection in the heel and this really helped her pain. The pain has been ongoing for years. Patient Goals: Help prevent foot pain Functional Limitations: walking, standing Prior Level of Function: Independent without limitations Intake Information: Prescription present Previous Treatment: Injections Pain: Pain Pain Level: 0 Pain Location: Foot - Right, Heel - Right Description: Sore PROMIS Scales 07/16/2024 03/24/2024 02/24/2024 Higher is Better Phys Func - T Score 45 (within normal limits) 51 (within normal limits) 48 (within normal limits) Phys Func - Percentile 31 54 42 Self-Eff Symptom - T Score 42 (Average) 51 (Average) Self-Eff Symptom - Percentile 21 54 08/26/2022 05/20/2022 03/28/2022 Lower is Better Pain Interference - T Score 58 (mild) 60 (mild) 62 (moderate) Pain Interference - Percentile 21 16 12 T-scores: mean of general population = 50. 5 points is clinically meaningfully difference Percentiles provide an indication of how the patient's score ranks in relation to the general population. Higher percentile rankings indicate better function/quality of life. 50th percentile is the average of the general population and indicates half of respondents had a worse score. OBJECTIVE MEASURES WITH LEVEL OF FUNCTION: Posture / Alignment R LE Anatomical Alignment Weight-Bearing: R Pes cavus, R Pes planus R LE Anatomical Alignment Non Weight-Bearing: R Pes cavus L LE Anatomical Alignment Non Weight-Bearing: L Pes cavus Ankle Observations R Ankle Palpation Tenderness: Plantar fascia LE AROM R LE AROM: WNL L LE AROM: WNL LE Flexibility Flexibility: Gastrocnemius Flexibility R Gastrocnemius Flexibility: Tight L Gastrocnemius Flexibility: Tight LE Strength R Ankle Inversion: 5/5 L Ankle Inversion: 5/5 Gait Gait Observation: R foot is more externally rotated than the L side. R foot pronate more than the L. Education: Education Learning Preferences: Demonstration, Explanation, Performance, Printed Materials Barriers: None Learning/educational needs: Home exercise program, Plan of Care, Changes in Plan of Care Education Provided: Yes, see treatment interventions for education provided Education Provided To: Patient Education Mode/Type: Demonstration, Explanation/Discussion, Literature/Printed Materials, Performance Response to Education/Teach Back: States/Identifies, Return Demonstration TREATMENT: PT Treatment Interventions: Self-Group Home Management Evaluation Self-Group Home Management: 1: Discussed anatomy of the foot and ankles, focusing on the plantar fascia. Explained the windlas mechanism of the plantar fascia. Discussed the mechanics of the foot and ankle in a perfect scenarioand discussed how wearing shoes with arch support can improve pt's mechanics and decrease pain withstanding/walking. Hogan, Hokas, Vionic shoes were given as examples for high quality shoes with good arch support. Pt's questions answered to the best of this PT's ability. 2: *Seated gastrocnemius stretch discussed for proper form and duration of stretch Skilled Intervention: Skilled judgment in the selection of proper modification for activity of daily living/home management based on clinical presentation, deficits, and needs. Billing * Evaluation Low Complexity: 1 Unit Self-Care/Home Management Treatment Minutes: 24 Skilled Treatment Time Minutes (timed and untimed codes): 41 Total Session Time (minutes): 41 Session Start Time : 1134 Session Stop Time : 1215 Quoc Mccracken PT documented [facility] NotePatient Outreach (FAMPWS) LILLIAN VELAZQUEZ ([id number]) 1955 F Date Time Provider Department 06/21/24 REMY PEREZ FAMPWS During your visit today, we recorded the following information about you: Allergies As of Date: 06/21/2024 Noted Allergy Reaction AUGMENTIN (AMOXICILLIN-POT CLAVUL*11/01/2021 8 - GI Upset Date Reviewed: 06/02/2024 Reviewed by: Ludy Burns MA - Fully Assessed Visit Diagnosis:Encounter for screening mammogram for breast cancer [Z12.31] Order(s):[facility] SCREENING W HERNANDEZ [[id number]] Order #: [id number] FUTURE Prescriptions as of 07/22/2024 - losartan (COZAAR) 25 mg tablet Take 1 tablet by mouth once daily. Take one tablet daily - pravastatin (PRAVACHOL) 20 mg tablet Take 1 tablet by mouth daily at bedtime. - traZODone (DESYREL) 150 mg tablet Take 1 tablet by mouth daily at bedtime. - levothyroxine (SYNTHROID) 88 mcg tablet Take 1 tablet by mouth daily before breakfast. Take one tablet daily before breakfast - busPIRone (BUSPAR) 5 mg tablet Take 1 tablet by mouth three times a day as needed. PRN - multivit with minerals/lutein (MULTIVITAMIN 50 PLUS ORAL) Take by mouth once daily. - docosahexaenoic acid/epa (FISH OIL ORAL) Take by mouth as directed. - MAGNESIUM ORAL Take by mouth as directed. - TURMERIC ORAL Take by mouth as directed. - gabapentin (NEURONTIN) 300 mg capsule Take 1 capsule by mouth two times a day for 180 days. - dicyclomine (BENTYL) 10 mg capsule Take 1 capsule by mouth before meals and at bedtime. - betamethasone dipropionate (DIPROSONE) 0.05 % cream Apply to affected area twice daily. Problem List As Of Date 06/21/2024 Noted Resolved Primary insomnia [F51.01] 11/01/2021 Postoperative hypothyroidism [E89.0] 11/01/2021 Hypertension, essential [I10] 11/01/2021 RLS (restless legs syndrome) [G25.81] 11/01/2021 History of COVID-19 [Z86.16] 11/01/2021 Elevated blood sugar [R73.9] 11/19/2021 Positive ESTELLA (antinuclear antibody) [R76.8] 11/21/2021 Left upper extremity numbness [R20.0] 12/18/2021 Left hand pain [M79.642] 12/18/2021 Left arm pain [M79.602] 12/18/2021 Left hand weakness [R29.898] 12/18/2021 Cervical arthritis [M47.812] 01/01/2022 02/17/2022 Numbness and tingling in left arm [R20.0, R20.2]01/01/2022 02/17/2022 Pain of left upper extremity [M79.602] 01/01/2022 02/17/2022 Lumbar back pain [M54.50] 05/21/2022 Encounter for Medicare annual wellness exam [Z0*06/19/2022 Special screening for malignant neoplasms, colo*06/19/2022 Fall (on) (from) unspecified stairs and steps, *08/29/2022 Hyperlipidemia, mixed [E78.2] 12/24/2022 Advance directive discussed with patient [Z71.8*07/23/2023 Osteopenia, senile [M85.80] 08/26/2023 Spondylosis of lumbar region without myelopathy*12/23/2023 Plantar fasciitis [M72.2] 06/02/2024 Encounter Status:Closed by RADHA, PRODUSER on 07/22/24[facility] 06-02-2024 NoteHNO ID: [id number] Author: REMY PEREZ MD Service: ? Author Type: Physician Type: Procedures Filed: 06/02/2024 11:10 Note Text: UNIVERSAL PROTOCOL / SAFETY CHECKLIST Procedure to be Performed: plantar fascitis steroid injection. Sign In: A Moment of CARE was completed. Personnel directly involved with the procedure wore the appropriate PPE (Personal Protective Equipment). Patient/Surrogate Stated/Verified: PATIENT VERIFIED(optional for EMERGENT procedures): Patient name, Date of , Relevant allergies, and The intended procedure Time Out Communication: Intended patient and procedure match the source documents. Consent documented and matches the intended procedure. Correct side/site marked and visible. Medications required for procedure verified. Sign Out: SIGN OUT (optional for EMERGENT procedures): No specimen collected. Post-procedure follow-up management communicated and Plan of Care Visit completed when applicable. The right medial heel was cleansed with betadine and alcohol. A 21 brissa 1 1/2 needle was inserted into the right medial heel. Aspiration attempted with no blood return. Medication was then injected without any difficulty. Patient tolerated well. Med: 0.75 cc Kenalog with 0.5 ml 2% Lido without Epi Remy Perez, [facility]02-13-2025 Procedure note* Remy Perez MD - 06/02/2024 10:46 AM EST UNIVERSAL PROTOCOL / SAFETY CHECKLIST Procedure to be Performed: plantar fascitis steroid injection. Sign In: A Moment of CARE was completed. Personnel directly involved with the procedure wore the appropriate PPE (Personal Protective Equipment). Patient/Surrogate Stated/Verified: PATIENT VERIFIED(optional for EMERGENT procedures): Patient name, Date of , Relevant allergies, and The intended procedure Time Out Communication: Intended patient and procedure match the source documents. Consent documented and matches the intended procedure. Correct side/site marked and visible. Medications required for procedure verified. Sign Out: SIGN OUT (optional for EMERGENT procedures): No specimen collected. Post-procedure follow-up management communicated and Plan of Care Visit completed when applicable. The right medial heel was cleansed with betadine and alcohol. A 21 brissa 1 1/2 needle was inserted into the right medial heel. Aspiration attempted with no blood return. Medication was then injected without any difficulty. Patient tolerated well. Med: 0.75 cc Kenalog with 0.5 ml 2% Lido without Epi Remy Perez MD [facility]02-13-2025 Procedure note* Remy Perez MD - 06/02/2024 10:46 AM EST UNIVERSAL PROTOCOL / SAFETY CHECKLIST Procedure to be Performed: plantar fascitis steroid injection. Sign In: A Moment of CARE was completed. Personnel directly involved with the procedure wore the appropriate PPE (Personal Protective Equipment). Patient/Surrogate Stated/Verified: PATIENT VERIFIED(optional for EMERGENT procedures): Patient name, Date of , Relevant allergies, and The intended procedure Time Out Communication: Intended patient and procedure match the source documents. Consent documented and matches the intended procedure. Correct side/site marked and visible. Medications required for procedure verified. Sign Out: SIGN OUT (optional for EMERGENT procedures): No specimen collected. Post-procedure follow-up management communicated and Plan of Care Visit completed when applicable. The right medial heel was cleansed with betadine and alcohol. A 21 brissa 1 1/2 needle was inserted into the right medial heel. Aspiration attempted with no blood return. Medication was then injected without any difficulty. Patient tolerated well. Med: 0.75 cc Kenalog with 0.5 ml 2% Lido without Epi Remy Perez MD documented in this encounterK[facility]02-[facility] History of Present illness Narrative* Remy Perez MD - 06/02/2024 10:40 AM EST Chief Complaint Patient presents with: Plantar Fasciitis: Here for injection in R heel HPI Lillian Velazquez is a 68 year old female who presents here today for injection in right heel for persistent plantar fascitis pain. Patient with hx of HTN, hyperlipidemia, hypothyroidism, elevated blood sugar, and those as belo Past medical history, appointments, medications, allergies reviewed. Previous Medical History PAST MEDICAL HISTORY Diagnosis Date Elevated blood sugar 11/19/2021 History of COVID-19 11/01/2021 10/11/2021 Hyperlipidemia, mixed 12/24/2022 Hypertension, essential 11/01/2021 Lumbar back pain 05/21/2022 Osteopenia, senile 08/26/2023 Postoperative hypothyroidism 11/01/2021 Removed due to goiter. Primary insomnia 11/01/2021 RLS (restless legs syndrome) 11/01/2021 On gabapentin Previous Surgical History PAST SURGICAL HISTORY Procedure Laterality Date COLONOSCOPY 01/22/2023 repeat 5 years CYST/MOLE REMOVAL Left 1978 benign cyst- Left breast PAST SURGICAL HISTORY OF 2018 cervical fusion PAST SURGICAL HISTORY OF 2017 right shoulder decompression PAST SURGICAL HISTORY OF Bilateral foot surgery THYROIDECTOMY 10/2018 due to goiter, no cancer TONSILLECTOMY HX 8 yo Family History FAMILY HISTORY Problem Relation Age of Onset Cancer Mother Lung? other (a. fib) Father other (TIA) Father Hyperlipidemia Father Hypertension Father Hypertension Sister Stroke Maternal Grandmother Diabetes Maternal Grandmother Ischemic Heart Disease Maternal Grandfather Heart disease Maternal Grandfather Stroke Paternal Grandmother Heart Attack Paternal Grandfather Ovarian cancer Maternal Aunt Patient Allergies ALLERGIES Allergen Reactions Augmentin [Amoxicil* GI Upset Current Medications Current Outpatient Medications on File Prior to Visit Medication Sig losartan (COZAAR) 25 mg tablet Take 1 tablet by mouth once daily. Take one tablet daily pravastatin (PRAVACHOL) 20 mg tablet Take 1 tablet by mouth daily at bedtime. traZODone (DESYREL) 150 mg tablet Take 1 tablet by mouth daily at bedtime. levothyroxine (SYNTHROID) 88 mcg tablet Take 1 tablet by mouth daily before breakfast. Take one tablet daily before breakfast busPIRone (BUSPAR) 5 mg tablet Take 1 tablet by mouth three times a day as needed. PRN multivit with minerals/lutein (MULTIVITAMIN 50 PLUS ORAL) Take by mouth once daily. docosahexaenoic acid/epa (FISH OIL ORAL) Take by mouth as directed. MAGNESIUM ORAL Take by mouth as directed. TURMERIC ORAL Take by mouth as directed. gabapentin (NEURONTIN) 300 mg capsule Take 1 capsule by mouth two times a day for 180 days. dicyclomine (BENTYL) 10 mg capsule Take 1 capsule by mouth before meals and at bedtime. betamethasone dipropionate (DIPROSONE) 0.05 % cream Apply to affected area twice daily. No current facility-administered medications on file prior to visit. Social History Social History Tobacco Use Smoking status: Never Smokeless tobacco: Never Vaping Use Vaping status: Never Used Substance Use Topics Alcohol use: Not Currently Comment: occasionally Drug use: Never Review of Symptoms REVIEW OF SYSTEMS See HPI EXAM: BP 137/87 Pulse 66 Ht 157.5 cm (5' 2) Wt 53.5 kg (118 lb) BMI 21.58 kg/m General Appearance: Well appearing, alert, in no acute distress, well-hydrated, well nourished.. Musculoskeletal: has tenderness to the plantar heel surface when palpated and when the heel is squeezed from the sides. . Health Maintenance List DTaP,Tdap,Td Vaccine(1 - Tdap) Never done Shingrix Vaccine(1 of 2) Never done Advance Directive Discussion due on 04/20/2024 Mammogram Screening due on 05/20/2024 Covid-19 Vaccine() due on 02/07/2025 Depression Screening due on 07/22/2024 Anxiety Screening due on 07/22/2024 BP Controlled (<130/80) due on 07/22/2024 Annual PCP Team Chronic Disease Visit due on 05/26/2025 Diabetes Screening due on 02/07/2027 Colorectal Cancer Screening due on 01/23/2028 Lipid Screening due on 02/07/2029 RSV Vaccine(1 - 1-dose 75+ series) due on 12/15/2031 Bone Density Screening Completed Influenza Vaccine Completed Pneumococcal Vaccine: 50+ Completed Cervical Cancer Screening Discontinued Hepatitis C Screening Discontinued Data reviewed A/P ASSESSMENT/PLAN: 1. Plantar fasciitis - ICD9: 728.71, ICD10: M72.2 - discussed steroid injection since not improving with conservative Tx. Patient in agreement. - see procedure note section. Remy Perez MD documented in this encounterK[facility]02-[facility]25 NoteHNO ID: [id number] Author: REMY PEREZ MD Service: ? Author Type: Physician Type: Progress Notes Filed: 06/02/2024 11:10 Note Text: Chief Complaint Patient presents with: Plantar Fasciitis: Here for injection in R heel HPI Lillian Velazquez is a 68 year old female who presents here today for injection in right heel for persistent plantar fascitis pain. Patient with hx of HTN, hyperlipidemia, hypothyroidism, elevated blood sugar, and those as belo Past medical history, appointments, medications, allergies reviewed. Previous Medical History PAST MEDICAL HISTORY Diagnosis Date Elevated blood sugar 11/19/2021 History of COVID-19 11/01/2021 10/11/2021 Hyperlipidemia, mixed 12/24/2022 Hypertension, essential 11/01/2021 Lumbar back pain 05/21/2022 Osteopenia, senile 08/26/2023 Postoperative hypothyroidism 11/01/2021 Removed due to goiter. Primary insomnia 11/01/2021 RLS (restless legs syndrome) 11/01/2021 On gabapentin Previous Surgical History PAST SURGICAL HISTORY Procedure Laterality Date COLONOSCOPY 01/22/2023 repeat 5 years CYST/MOLE REMOVAL Left 1977 benign cyst- Left breast PAST SURGICAL HISTORY OF 2018 cervical fusion PAST SURGICAL HISTORY OF 2017 right shoulder decompression PAST SURGICAL HISTORY OF Bilateral foot surgery THYROIDECTOMY 10/2018 due to goiter, no cancer TONSILLECTOMY HX 8 yo Family History FAMILY HISTORY Problem Relation Age of Onset Cancer Mother Lung? other (a. fib) Father other (TIA) Father Hyperlipidemia Father Hypertension Father Hypertension Sister Stroke Maternal Grandmother Diabetes Maternal Grandmother Ischemic Heart Disease Maternal Grandfather Heart disease Maternal Grandfather Stroke Paternal Grandmother Heart Attack Paternal Grandfather Ovarian cancer Maternal Aunt Patient Allergies ALLERGIES Allergen Reactions Augmentin [Amoxicil* GI Upset Current Medications Current Outpatient Medications on File Prior to Visit Medication Sig losartan (COZAAR) 25 mg tablet Take 1 tablet by mouth once daily. Take one tablet daily pravastatin (PRAVACHOL) 20 mg tablet Take 1 tablet by mouth daily at bedtime. traZODone (DESYREL) 150 mg tablet Take 1 tablet by mouth daily at bedtime. levothyroxine (SYNTHROID) 88 mcg tablet Take 1 tablet by mouth daily before breakfast. Take one tablet daily before breakfast busPIRone (BUSPAR) 5 mg tablet Take 1 tablet by mouth three times a day as needed. PRN multivit with minerals/lutein (MULTIVITAMIN 50 PLUS ORAL) Take by mouth once daily. docosahexaenoic acid/epa (FISH OIL ORAL) Take by mouth as directed. MAGNESIUM ORAL Take by mouth as directed. TURMERIC ORAL Take by mouth as directed. gabapentin (NEURONTIN) 300 mg capsule Take 1 capsule by mouth two times a day for 180 days. dicyclomine (BENTYL) 10 mg capsule Take 1 capsule by mouth before meals and at bedtime. betamethasone dipropionate (DIPROSONE) 0.05 % cream Apply to affected area twice daily. No current facility-administered medications on file prior to visit. Social History Social History Tobacco Use Smoking status: Never Smokeless tobacco: Never Vaping Use Vaping status: Never Used Substance Use Topics Alcohol use: Not Currently Comment: occasionally Drug use: Never Review of Symptoms REVIEW OF SYSTEMS See HPI EXAM: BP 137/87 Pulse 66 Ht 157.5 cm (5' 2) Wt 53.5 kg (118 lb) BMI 21.58 kg/m? General Appearance: Well appearing, alert, in no acute distress, well-hydrated, well nourished.. Musculoskeletal: has tenderness to the plantar heel surface when palpated and when the heel is squeezed from the sides. . Health Maintenance List DTaP,Tdap,Td Vaccine(1 - Tdap) Never done Shingrix Vaccine(1 of 2) Never done Advance Directive Discussion due on 04/20/2024 Mammogram Screening due on 05/20/2024 Covid-19 Vaccine( season) due on 02/07/2025 Depression Screening due on 07/22/2024 Anxiety Screening due on 07/22/2024 BP Controlled (<130/80) due on 07/22/2024 Annual PCP Team Chronic Disease Visit due on 05/26/2025 Diabetes Screening due on 02/07/2027 Colorectal Cancer Screening due on 01/23/2028 Lipid Screening due on 02/07/2029 RSV Vaccine(1 - 1-dose 75+ series) due on 12/15/2031 Bone Density Screening Completed Influenza Vaccine Completed Pneumococcal Vaccine: 50+ Completed Cervical Cancer Screening Discontinued Hepatitis C Screening Discontinued Data reviewed A/P ASSESSMENT/PLAN: 1. Plantar fasciitis - ICD9: 728.71, ICD10: M72.2 - discussed steroid injection since not improving with conservative Tx. Patient in agreement. - see procedure note section. Remy Perez, [facility]02-10-2025 Telephone encounter Note* Telephone Encounter - New Renee LPN - 05/30/2024 8:23 AM EST Left vm of same on pt's identified vm. Also sent results via [facility] to pt. New Renee LPN [facility]02-10-2025 Miscellaneous Notes* Telephone Encounter - New Renee LPN - 05/30/2024 8:23 AM EST Left vm of same on pt's identified vm. Also sent results via [facility] to pt. New Renee LPN * Telephone Encounter - Aziza Thompson PA-C - 05/30/2024 8:05 AM EST Xray does show bone spur as we suspected. documented in this encounterK[facility]02-[facility] Telephone encounter Note * Telephone Encounter - Aziza Thompson PA-C - 05/30/2024 8:05 AM EST Xray does show bone spur as we suspected. [facility]02-07-2025 Telephone encounter Note* Telephone Encounter - Yinka Messina LPN - 05/27/2024 10:59 AM EST See pt message. Xray's still in process. [facility]02-07-2025 Miscellaneous Notes* Telephone Encounter - Yinka Messina LPN - 05/27/2024 10:59 AM EST See pt message. Xray's still in process. documented in this encounterK[facility]02-[facility] History of Present illness Narrative* Arabella Lr Tech - 05/26/2024 12:20 PM EST Radiology Service Progress Note PATIENT NAME: Lillian Velazquez DATE OF SERVICE: May 26, 2024 TIME: 12:40 PM PATIENT IDENTITY VERIFICATION COMPLETED USING TWO (2) IDENTIFIERS: Name and Date of confirmedby patient verbally. FALL SCREENING: Has the patient had 2 falls in the last year or 1 fall with injury or currently using an Ambulatory Assistive Device (Walker, Cane, Wheelchair, Crutches, etc.)? No PATIENT GENDER DATA: Assigned female at . status: : No status:NO. PATIENT RELEVANT IMPLANT DATA REVIEWED: Not Applicable PATIENT PRESENTS WITH AN IMPLANTABLE OR ATTACHED CORRESPONDENCE REVIEW CLERK: No RADIOLOGY DEPARTMENT: General X-ray: Exam(s) Completed: Pelvis X-Ray: Pelvis with Hip Left Lower Extremity X-Ray(s): Foot, Right PERIPHERAL IV DATA: Not applicable SIGNED BY: Dilan Velasquez May 26, 2024 12:40 PM documented in this encounterKet[facility]02-[facility]25 NoteHNO ID: [id number] Author: ARABELLA LR Tech Service: ? Author Type: Technologist Type: Progress Notes Filed: 05/26/2024 12:40 Note Text: Radiology Service Progress Note PATIENT NAME: Lillian Velazquez DATE OF SERVICE: May 26, 2024 TIME: 12:40 PM PATIENT IDENTITY VERIFICATION COMPLETED USING TWO (2) IDENTIFIERS: Name and Date of confirmed by patient verbally. FALL SCREENING: Has the patient had 2 falls in the last year or 1 fall with injury or currently using an Ambulatory Assistive Device (Walker, Cane, Wheelchair, Crutches, etc.)? No PATIENT GENDER DATA: Assigned female at . status: : No status: NO. PATIENT RELEVANT IMPLANT DATA REVIEWED: Not Applicable PATIENT PRESENTS WITH AN IMPLANTABLE OR ATTACHED CORRESPONDENCE REVIEW CLERK: No RADIOLOGY DEPARTMENT: General X-ray: Exam(s) Completed: Pelvis X-Ray: Pelvis with Hip Left Lower Extremity X-Ray(s): Foot, Right PERIPHERAL IV DATA: Not applicable SIGNED BY: Dilan Velasquez May 26, 2024 12:40 [facility]02-06-2025 NoteHNO ID: [id number] Author: AZIZA THOMPSON PA-C Service: ? Author Type: Physician Clin Tech Type: Progress Notes Filed: 05/26/2024 12:19 Note Text: xrayChief Complaint Patient presents with: plantar fascitis: Right foot has gotten worse HPI Lillian Velazquez is a 68 year old female who presents here today for Above Complaints.. Patient with increasing plantar fasciitis pain. Does see podiatry and has tried conservative management, but symptoms are worsening. Specifically in the last month. States she is unable to get a follow up with podiatry any time soon. States she is going on a trip and is very worried about the pain she will experience walking around the airport. She is also noticing left hip pain on and off for years. Has been worse more recently. Past medical history, appointments, medications, allergies reviewed. Previous Medical History PAST MEDICAL HISTORY Diagnosis Date Elevated blood sugar 11/19/2021 History of COVID-19 11/01/2021 10/11/2021 Hyperlipidemia, mixed 12/24/2022 Hypertension, essential 11/01/2021 Lumbar back pain 05/21/2022 Osteopenia, senile 08/26/2023 Postoperative hypothyroidism 11/01/2021 Removed due to goiter. Primary insomnia 11/01/2021 RLS (restless legs syndrome) 11/01/2021 On gabapentin Previous Surgical History PAST SURGICAL HISTORY Procedure Laterality Date COLONOSCOPY 01/22/2023 repeat 5 years CYST/MOLE REMOVAL Left 1977 benign cyst- Left breast PAST SURGICAL HISTORY OF 2018 cervical fusion PAST SURGICAL HISTORY OF 2017 right shoulder decompression PAST SURGICAL HISTORY OF Bilateral foot surgery THYROIDECTOMY 10/2018 due to goiter, no cancer TONSILLECTOMY HX 8 yo Family History FAMILY HISTORY Problem Relation Age of Onset Cancer Mother Lung? other (a. fib) Father other (TIA) Father Hyperlipidemia Father Hypertension Father Hypertension Sister Stroke Maternal Grandmother Diabetes Maternal Grandmother Ischemic Heart Disease Maternal Grandfather Heart disease Maternal Grandfather Stroke Paternal Grandmother Heart Attack Paternal Grandfather Ovarian cancer Maternal Aunt Patient Allergies ALLERGIES Allergen Reactions Augmentin [Amoxicil* GI Upset Current Medications Current Outpatient Medications on File Prior to Visit Medication Sig losartan (COZAAR) 25 mg tablet Take 1 tablet by mouth once daily. Take one tablet daily pravastatin (PRAVACHOL) 20 mg tablet Take 1 tablet by mouth daily at bedtime. traZODone (DESYREL) 150 mg tablet Take 1 tablet by mouth daily at bedtime. levothyroxine (SYNTHROID) 88 mcg tablet Take 1 tablet by mouth daily before breakfast. Take one tablet daily before breakfast busPIRone (BUSPAR) 5 mg tablet Take 1 tablet by mouth three times a day as needed. PRN multivit with minerals/lutein (MULTIVITAMIN 50 PLUS ORAL) Take by mouth once daily. docosahexaenoic acid/epa (FISH OIL ORAL) Take by mouth as directed. MAGNESIUM ORAL Take by mouth as directed. TURMERIC ORAL Take by mouth as directed. gabapentin (NEURONTIN) 300 mg capsule Take 1 capsule by mouth two times a day for 180 days. dicyclomine (BENTYL) 10 mg capsule Take 1 capsule by mouth before meals and at bedtime. betamethasone dipropionate (DIPROSONE) 0.05 % cream Apply to affected area twice daily. No current facility-administered medications on file prior to visit. Social History Social History Tobacco Use Smoking status: Never Smokeless tobacco: Never Vaping Use Vaping status: Never Used Substance Use Topics Alcohol use: Not Currently Comment: occasionally Drug use: Never Review of Symptoms REVIEW OF SYSTEMS See hpi EXAM: BP 130/82 (BP Site: Right Arm, BP Position: Sitting, BP Cuff Size: Regular Adult) Pulse 60 Temp 36.3 ?C (97.3 ?F) Resp 16 Wt 54.4 kg (120 lb) SpO2 99% BMI 21.40 kg/m? General Appearance: Well appearing, alert, in no acute distress, well-hydrated, well nourished.. Musculoskeletal: +pain to palp of right heel and plantar fascia. NVI. Left hip with pain at SI joint and great tuberosity. FROM. NVI. Health Maintenance List DTaP,Tdap,Td Vaccine(1 - Tdap) Never done Shingrix Vaccine(1 of 2) Never done Advance Directive Discussion due on 04/20/2024 Mammogram Screening due on 05/20/2024 Covid-19 Vaccine() due on 02/07/2025 Depression Screening due on 07/22/2024 Anxiety Screening due on 07/22/2024 BP Controlled (<130/80) due on 07/22/2024 Annual PCP Team Chronic Disease Visit due on 02/07/2025 Diabetes Screening due on 02/07/2027 Colorectal Cancer Screening due on 01/23/2028 Lipid Screening due on 02/07/2029 RSV Vaccine(1 - 1-dose 75+ series) due on 12/15/2031 Bone Density Screening Completed Influenza Vaccine Completed Pneumococcal Vaccine: 50+ Completed Cervical Cancer Screening Discontinued Hepatitis C Screening Discontinued Data reviewed ASSESSMENT/PLAN: 1. Chronic left hip pain - I (more content not included)...[facility]02-06-2025 History of Present illness Narrative* Aziza Thompson PA- C - 05/26/2024 11:45 AM EST xrayChief Complaint Patient presents with: plantar fascitis: Right foot has gotten worse HPI Lillian Velazquez is a 68 year old female who presents here today for Above Complaints.. Patient with increasing plantar fasciitis pain. Does see podiatry and has tried conservative management, but symptoms are worsening. Specifically in the last month. States she is unable to get a follow up with podiatry any time soon. States she is going on a trip and is very worried about the pain she [place] experience walking aroundthe airport. She is also noticing left hip pain on and off for years. Has been worse more recently. Past medical history, appointments, medications, allergies reviewed. Previous Medical History PAST MEDICAL HISTORY Diagnosis Date Elevated blood sugar 11/19/2021 History of COVID-19 11/01/2021 10/11/2021 Hyperlipidemia, mixed 12/24/2022 Hypertension, essential 11/01/2021 Lumbar back pain 05/21/2022 Osteopenia, senile 08/26/2023 Postoperative hypothyroidism 11/01/2021 Removed due to goiter. Primary insomnia 11/01/2021 RLS (restless legs syndrome) 11/01/2021 On gabapentin Previous Surgical History PAST SURGICAL HISTORY Procedure Laterality Date COLONOSCOPY 01/22/2023 repeat 5 years CYST/MOLE REMOVAL Left 1977 benign cyst- Left breast PAST SURGICAL HISTORY OF 2018 cervical fusion PAST SURGICAL HISTORY OF 2017 right shoulder decompression PAST SURGICAL HISTORY OF Bilateral foot surgery THYROIDECTOMY 10/2018 due to goiter, no cancer TONSILLECTOMY HX 8 yo Family History FAMILY HISTORY Problem Relation Age of Onset Cancer Mother Lung? other (a. fib) Father other (TIA) Father Hyperlipidemia Father Hypertension Father Hypertension Sister Stroke Maternal Grandmother Diabetes Maternal Grandmother Ischemic Heart Disease Maternal Grandfather Heart disease Maternal Grandfather Stroke Paternal Grandmother Heart Attack Paternal Grandfather Ovarian cancer Maternal Aunt Patient Allergies ALLERGIES Allergen Reactions Augmentin [Amoxicil* GI Upset Current Medications Current Outpatient Medications on File Prior to Visit Medication Sig losartan (COZAAR) 25 mg tablet Take 1 tablet by mouth once daily. Take one tablet daily pravastatin (PRAVACHOL) 20 mg tablet Take 1 tablet by mouth daily at bedtime. traZODone (DESYREL) 150 mg tablet Take 1 tablet by mouth daily at bedtime. levothyroxine (SYNTHROID) 88 mcg tablet Take 1 tablet by mouth daily before breakfast. Take one tablet daily before breakfast busPIRone (BUSPAR) 5 mg tablet Take 1 tablet by mouth three times a day as needed. PRN multivit with minerals/lutein (MULTIVITAMIN 50 PLUS ORAL) Take by mouth once daily. docosahexaenoic acid/epa (FISH OIL ORAL) Take by mouth as directed. MAGNESIUM ORAL Take by mouth as directed. TURMERIC ORAL Take by mouth as directed. gabapentin (NEURONTIN) 300 mg capsule Take 1 capsule by mouth two times a day for 180 days. dicyclomine (BENTYL) 10 mg capsule Take 1 capsule by mouth before meals and at bedtime. betamethasone dipropionate (DIPROSONE) 0.05 % cream Apply to affected area twice daily. No current facility-administered medications on file prior to visit. Social History Social History Tobacco Use Smoking status: Never Smokeless tobacco: Never Vaping Use Vaping status: Never Used Substance Use Topics Alcohol use: Not Currently Comment: occasionally Drug use: Never Review of Symptoms REVIEW OF SYSTEMS See hpi EXAM: BP 130/82 (BP Site: Right Arm, BP Position: Sitting, BP Cuff Size: Regular Adult) Pulse 60 Temp36.3 C (97.3 F) Resp 16 Wt 54.4 kg (120 lb) SpO2 99% BMI 21.40 kg/m General Appearance: Well appearing, alert, in no acute distress, well-hydrated, well nourished.. Musculoskeletal: +pain to palp of right heel and plantar fascia. NVI. Left hip with pain at SI joint and great tuberosity. FROM. NVI. Health Maintenance List DTaP,Tdap,Td Vaccine(1 - Tdap) Never done Shingrix Vaccine(1 of 2) Never done Advance Directive Discussion due on 04/20/2024 Mammogram Screening due on 05/20/2024 Covid-19 Vaccine( season) due on 02/07/2025 Depression Screening due on 07/22/2024 Anxiety Screening due on 07/22/2024 BP Controlled (<130/80) due on 07/22/2024 Annual PCP Team Chronic Disease Visit due on 02/07/2025 Diabetes Screening due on 02/07/2027 Colorectal Cancer Screening due on 01/23/2028 Lipid Screening due on 02/07/2029 RSV Vaccine(1 - 1-dose 75+ series) due on 12/15/2031 Bone Density Screening Completed Influenza Vaccine Completed Pneumococcal Vaccine: 50+ Completed Cervical Cancer Screening Discontinued Hepatitis C Screening Discontinued Data reviewed ASSESSMENT/PLAN: 1. Chronic left hip pain - ICD9: 719.45, 338.29, ICD10: M25.552, G89.29 (primary diagnosis) Check xray - XR HIP GENERAL 3V PELV/AP/LAT LEFT 2. Plantar fasciitis of right foot - ICD9: 728.71, ICD10: M72.[address] Perez who agrees. Will schedule Check xray to rule out acute fractures. - CONSULT TO PHYSICAL THERAPY - XR FOOT GENERAL 3V AP/LAT/OBL RIGHT Aziza Thompson PA-C [facility] Tele[facility] encounter Note * Telephone Encounter - Gen Marcelle - 05/17/2024 9:49 AM EST Patient reviewed for Population Health Medication Adherence Pended the following prescription(s) for review. Requested Prescriptions Pending Prescriptions Disp Refills losartan (COZAAR) 25 mg tablet 90 tablet 1 Sig: Take 1 tablet by mouth once daily. Take one tablet daily Future Appointments Date Time Provider Department Center 08/08/2024 1:00 PM Aziza Thompson PA-C [facility] [place] Please review and refill if appropriate. Thank you. Marcelle Blevins May 17, 2024 9:49 AM [facility]01-28-2025 Miscellaneous Notes* Telephone Encounter - Marcelle Blevins - 05/17/2024 9:49 AM EST Patient reviewed for Population Health Medication Adherence Pended the following prescription(s) for review. Requested Prescriptions Pending Prescriptions Disp Refills losartan (COZAAR) 25 mg tablet 90 tablet 1 Sig: Take 1 tablet by mouth once daily. Take one tablet daily Future Appointments Date Time Provider Department Center 08/08/2024 1:00 PM Aziza Thompson PA-C [facility] [place] Please review and refill if appropriate. Thank you. Marcelle Blevins May 17, 2024 9:49 AM [facility] Telephone encounter Note * Telephone Encounter - Rajwinder Low APRN.CNP - 04/11/2024 12:58 PM EST The following approved medication requests have been transmitted electronically. Requested Prescriptions Pending Prescriptions Disp Refills traZODone (DESYREL) 150 mg tablet 90 tablet 1 Sig: Take 1 tablet by mouth daily at bedtime. levothyroxine (SYNTHROID) 88 mcg tablet 90 tablet 1 Sig: Take 1 tablet by mouth daily before breakfast. Take one tablet daily before breakfast Signed Prescriptions Disp Refills pravastatin (PRAVACHOL) 20 mg tablet 90 tablet 1 Sig: Take 1 tablet by mouth daily at bedtime. Authorizing Provider: ROSALIND PORTILLO APRN.CNP [facility]12-23-2024 Miscellaneous Notes* Telephone Encounter - Rajwinder Low APRN.CNP - 04/11/2024 12:58 PM EST The following approved medication requests have been transmitted electronically. Requested Prescriptions Pending Prescriptions Disp Refills traZODone (DESYREL) 150 mg tablet 90 tablet 1 Sig: Take 1 tablet by mouth daily at bedtime. levothyroxine (SYNTHROID) 88 mcg tablet 90 tablet 1 Sig: Take 1 tablet by mouth daily before breakfast. Take one tablet daily before breakfast Signed Prescriptions Disp Refills pravastatin (PRAVACHOL) 20 mg tablet 90 tablet 1 Sig: Take 1 tablet by mouth daily at bedtime. Authorizing Provider: ROSALIND PORTILLO APRN.INDUSTRIAL INSULATOR * Telephone Encounter - Anabelle López MA - 04/11/2024 12:49 PM EST 2 additional refill requests. Last filled: Trazodone 11/12/23 with 90 and 1 refills Levothyroxine with 08/07/23 with 90 and 1 refills Anabelle López MA * Telephone Encounter - Angi Mcguire MA - 04/11/2024 12:07 PM EST Prescription Refill Information The patient has been identified by name and date of : Yes Caregiver verified no other encounters exist for this prescription request: Yes Caregiver confirmed with patient/requestor that no other refills are due, in the near future, with this provider at this time: Yes The last office visit in the department: 01/2024 Does the patient have a future office visit with this provider/department: Yes 07/2024 Requested Prescriptions Pending Prescriptions Disp Refills pravastatin (PRAVACHOL) 20 mg tablet 90 tablet 1 Sig: Take 1 tablet by mouth daily at bedtime. Angi Mcguire MA April 11, 2024 12:09 PM [facility] Telephone encounter Note * Telephone Encounter - Anabelle López MA - 04/11/2024 12:49 PM EST 2 additional refill requests. Last filled: Trazodone 7/25/24 with 90 and 1 refills Levothyroxine with 08/07/23 with 90 and 1 refills Anabelle López MA [facility]12-23-2024 Telephone encounter Note* Telephone Encounter - Angi Mcguire MA - 04/11/2024 12:07 PM EST Prescription Refill Information The patient has been identified by name and date of : Yes Caregiver verified no other encounters exist for this prescription request: Yes Caregiver confirmed with patient/requestor that no other refills are due, in the near future, with this provider at this time: Yes The last office visit in the department: 01/2024 Does the patient have a future office visit with this provider/department: Yes 07/2024 Requested Prescriptions Pending Prescriptions Disp Refills pravastatin (PRAVACHOL) 20 mg tablet 90 tablet 1 Sig: Take 1 tablet by mouth daily at bedtime. Angi Mcguire MA April 11, 2024 12:09 PM [facility]12-09-2024 Telephone encounter Note* Telephone Encounter - Remy Perez MD - 03/28/2024 9:55 AM EST The following approved medication requests have been transmitted electronically. Requested Prescriptions Signed Prescriptions Disp Refills busPIRone (BUSPAR) 5 mg tablet 90 tablet 1 Sig: Take 1 tablet by mouth three times a day as needed. PRN Authorizing Provider: REMY PEREZ MD [facility]12-09-2024 Miscellaneous Notes* Telephone Encounter - Remy Perez MD - 03/28/2024 9:55 AM EST The following approved medication requests have been transmitted electronically. Requested Prescriptions Signed Prescriptions Disp Refills busPIRone (BUSPAR) 5 mg tablet 90 tablet 1 Sig: Take 1 tablet by mouth three times a day as needed. PRN Authorizing Provider: REMY PEREZ MD * Telephone Encounter - Angi Mcguire MA - 03/28/2024 9:04 AM EST Prescription Refill Information The patient has been identified by name and date of : Yes Caregiver verified no other encounters exist for this prescription request: Yes Caregiver confirmed with patient/requestor that no other refills are due, in the near future, with this provider at this time: Yes The last office visit in the department: 01/2024 Does the patient have a future office visit with this provider/department: Yes 07/2024 Requested Prescriptions Pending Prescriptions Disp Refills busPIRone (BUSPAR) 5 mg tablet 90 tablet 0 Sig: Take 1 tablet by mouth three times a day as needed. PRGretta Mcguire MA March 28, 2024 9:04 AM documented [facility]12[facility] Telephone encounter Note * Telephone Encounter - Angi Mcguire MA - 03/28/2024 9:04 AM EST Prescription Refill Information The patient has been identified by name and date of : Yes Caregiver verified no other encounters exist for this prescription request: Yes Caregiver confirmed with patient/requestor that no other refills are due, in the near future, with this provider at this time: Yes The last office visit in the department: 01/2024 Does the patient have a future office visit with this provider/department: Yes 07/2024 Requested Prescriptions Pending Prescriptions Disp Refills busPIRone (BUSPAR) 5 mg tablet 90 tablet 0 Sig: Take 1 tablet by mouth three times a day as needed. SARA Mcguire MA March 28, 2024 9:04 AM [facility]12-05-2024 NoteHNO ID: [id number] Author: QUOC MCCRACKEN PT Service: ? Author Type: Physical Therapist Type: Progress Notes Filed: 03/24/2024 12:19 Note Text: Episode Visit Count: 4 Therapist That Will Accept/Oversee The Plan Of Care: Quoc Mccracken PT Start of Care Date: 01/21/24 Onset Date: 06/29/22 Plan of Care Certification Date: 02/25/24 Next Certification Due Date: 03/31/24 Patient Identified by Name and Date of : Yes REHABILITATION AND SPORTS THERAPY PHYSICAL THERAPY DISCONTINUANCE OF CARE PLAN OF CARE UPDATE: Assessment: Lillian Velazquez is discontinued from Physical Therapy services due to goal achievement. and maximal benefit.. Patient was seen for 4 visits from Start of Care Date: 01/21/24 to 03/24/2024 and treatment included: Therapeutic exercise and Manual therapy. Goals updated 02/23/2023 Goals for Episode of Care: created on 08/29/22 through 10/24/22 Pt will demo 4/5 glute med strength on the R for improved gait and decreased pain - Met Pt will be able to perform gardening with 1/10 pain or less in 8 weeks Progressing, will continue - Progressed Pt will demo normal lumbar flexion without symptoms in 8 weeks or less - MET Normal gait. - MET Patient Goals: Decrease the pain SUBJECTIVE: Has been doing pretty good overall. The past few days were painful. Has done another trip since she last saw me. Pain: 0 Low back PROMIS Scales 02/24/2024 01/20/2024 01/15/2023 Higher is Better Phys Func - Score 48 (within normal limits) 41 (mild dysfunction) 50 (within normal limits) Phys Func - Percentile 42 18 50 Self-Eff Symptom - Score 51 (Average) 41 (Average) 51 (Average) Self-Eff Symptom - Percentile 54 18 54 T-scores: mean of general population = 50. 5 points is clinically meaningfully difference Percentiles provide an indication of how the patient's score ranks in relation to the general population. Higher percentile rankings indicate better function/quality of life. 50th percentile is the average of the general population and indicates half of respondents had a worse score. OBJECTIVE MEASURES WITH LEVEL OF FUNCTION: Lumbar Spine AROM Lumbar Flexion: Normal Lumbar Extension: Normal Lumbar R Side Verdigre: Normal Lumbar L Side Verdigre: Minimal limitation Lumbar R Side-Bend: Normal Lumbar L Side-Bend: Normal Lumbar R Rotation: Normal Lumbar L Rotation: Normal Gait Gait Observation: WNL TREATMENT: Manual Therapy: 1: All objective measures taken 2: DDN (see note for details) Dry needling to following Trigger points: Lumbar paraspinals and multifidi Needle length: 50mm 2.0 in . Gabriels used 3, needles removed 3. Dry needling technique used: Pistoning, Fanning, and Deep needling. Patient education on purpose, precautions, safety, risks, and other treatment options regarding dry needling. Verbal consent received. Skilled Intervention: Manual skills to improve joint mobility, ROM, and decrease pain. Utilized anatomy knowledge of the therapist, and assessment of patient's response to intervention. Self-Group Home Management: 1: Discussed modifying the amount of work that she is doing at home and the duration that the patient uses her back musculature at one time. Discussed taking more breaks and resting her back for 3-5 minutes. Skilled Intervention: Skilled judgment in the selection of proper modification for activity of daily living/home management based on clinical presentation, deficits, and needs. Billing Manual TherapyTreatment Minutes: 13 Self-Care/Home Management Treatment Minutes: 26 Skilled Treatment Time Minutes (timed and untimed codes): 39 Total Session Time (minutes): 39 Session Start Time : 1132 Session Stop Time : 1211 Quoc Mccracken [facility]12-05-2024 History of Present illness Narrative* Quoc Mccracken, PT - 03/24/2024 11:32 AM EST Images from the original note were not included. Episode Visit Count: 4 Therapist That Will Accept/Oversee The Plan Of Care: Quoc Mccracken PT Start of Care Date: 01/21/24 Onset Date: 06/29/22 Plan of Care Certification Date: 02/25/24 Next Certification Due Date: 03/31/24 Patient Identified by Name and Date of : Yes REHABILITATION AND SPORTS THERAPY PHYSICAL THERAPY DISCONTINUANCE OF CARE PLAN OF CARE UPDATE: Assessment: Lillian Velazquez is discontinued from Physical Therapy services due to goal achievement.and maximal benefit.. Patient was seen for 4 visits from Start of Care Date: 01/21/24 to 03/24/2024 and treatment included: Therapeutic exercise and Manual therapy. Goals updated 02/23/2023 Goals for Episode of Care: created on 08/29/22 through 10/24/22 Pt will demo 4/5 glute med strength on the R for improved gait and decreased pain - Met Pt will be able to perform gardening with 1/10 pain or less in 8 weeks Progressing, will continue -Progressed Pt will demo normal lumbar flexion without symptoms in 8 weeks or less - MET Normal gait. - MET Patient Goals: Decrease the pain SUBJECTIVE: Has been doing pretty good overall. The past few days were painful. Has done another trip since she last saw me. Pain: 0 Low back PROMIS Scales 02/24/2024 01/20/2024 01/15/2023 Higher is Better Phys Func - Score 48 (within normal limits) 41 (mild dysfunction) 50 (within normal limits) Phys Func - Percentile 42 18 50 Self-Eff Symptom - Score 51 (Average) 41 (Average) 51 (Average) Self-Eff Symptom - Percentile 54 18 54 T-scores: mean of general population = 50. 5 points is clinically meaningfully difference Percentiles provide an indication of how the patient's score ranks in relation to the general population. Higher percentile rankings indicate better function/quality of life. 50th percentile is the average of the general population and indicates half of respondents had a worse score. OBJECTIVE MEASURES WITH LEVEL OF FUNCTION: Lumbar Spine AROM Lumbar Flexion: Normal Lumbar Extension: Normal Lumbar R Side Verdigre: Normal Lumbar L Side Verdigre: Minimal limitation Lumbar R Side-Bend: Normal Lumbar L Side-Bend: Normal Lumbar R Rotation: Normal Lumbar L Rotation: Normal Gait Gait Observation: WNL TREATMENT: Manual Therapy: 1: All objective measures taken 2: DDN (see note for details) Dry needling to following Trigger points: Lumbar paraspinals and multifidi Needle length: 50mm 2.0 in . Gabriels used 3, needles removed 3. Dry needling technique used: Pistoning, Fanning, and Deep needling. Patient education on purpose, precautions, safety, risks, and other treatment options regarding dry needling. Verbal consent received. Skilled Intervention: Manual skills to improve joint mobility, ROM, and decrease pain. Utilized anatomy knowledge of the therapist, and assessment of patient's response to intervention. Self-Group Home Management: 1: Discussed modifying the amount of work that she is doing at home and the duration that the patient uses her back musculature at one time. Discussed taking more breaks and resting her back for 3-5 minutes. Skilled Intervention: Skilled judgment in the selection of proper modification for activity of daily living/home management based on clinical presentation, deficits, and needs. Billing Manual TherapyTreatment Minutes: 13 Self-Care/Home Management Treatment Minutes: 26 Skilled Treatment Time Minutes (timed and untimed codes): 39 Total Session Time (minutes): 39 Session Start Time : 1132 Session Stop Time : 1211 Quoc Mccracken PT documented [facility] encounterK[facility]11[facility] Instructions* Patient Instructions* Tank Watt APRN.TRACY - 03/10/2024 12:35 PM EST Images from the original note were not included. ASSESSMENT/PLAN: 1. Sinobronchitis - ICD9: 473.9, 490, ICD10: J32.9, J40 (primary diagnosis) - Will begin treatment with as per antibiotic as written, see orders - Supportive care with plenty of fluids, rest, and analgesia prn. - DOXYCYCLINE HYCLATE 100 MG TABLET - PREDNISONE 20 MG TABLET - continue using your inhaler as needed 2. Acute cough - ICD9: 786.2, ICD10: R05.1 - BENZONATATE 100 MG CAPSULE - Follow-up with your PCP in 3-5 days if symptoms have not improved or sooner if symptoms worsen - Discussed red flags and need for immediate medical evaluation if any occur. - Discussed supportive care treatment with fluids, rest and analgesia. - Discussed expected course of illness Tank Watt APRN.INDUSTRIAL INSULATOR Adult Sinusitis Patient Education What is Sinusitis? Sinusitis [[id number]-[id number]] is inflammation of the sinuses or swelling of the lining of the sinus cavity or nose. During an infection the sinuses become blocked with fluid causing swelling of the lining of the sinuses. Symptoms: (viral and bacterial infections) Stuffy nose Runny nose Postnasal drip Fever Toothache Headache Tiredness Cough Sore throat Face and head pressure and or pain Common causes: 98% of sinus infections are viral caused by viruses. Risk Factors of Sinusitis Include: Allergies, air pollution, indoor humidity and outdoor temperature changes, andstructural changes inthe nose may contribute to sinus pain, pressure and congestion. When to get help? Temperature greater than 100.4 F Symptoms lasting more than 10 days or worsening symptoms greater than 7-10 days. If you do not improve or worsen after a course of antibiotics, you should be re-examined. Diagnosis and Treatment: Your healthcare provider will ask a number of questions about your symptoms and how long they have occurred. If symptoms of sinusitis persist greater than 10 days, it is possible you have a bacterial sinus infection and an antibiotic is prescribed. If it is viral, antibiotics will not help. You may be instructed to take [id number] medications for symptoms. including fever reducers acetaminophen or ibuprofen, nasal saline spray, cough and cold preparations and decongestants as prescribed by the physician, nurse practitioner or physician project construction assistant manager. Self-Care and Prevention: Rest Fluids for hydration Good hand washing Humidifier Avoid smoking and exposure to second hand smoke Avoid sick contacts [facility] NoteHNO ID: [id number] Author: TANK WATT APRN.INDUSTRIAL INSULATOR Service: ? Author Type: Nurse Practitioner Type: Progress Notes Filed: 03/10/2024 12:35 Note Text: Subjective Cough Associated symptoms include headaches, sore throat, myalgias and shortness of breath. Pertinent negatives include no chest pain, no chills and no ear pain. Lillian Velazquez is a 68 year old female who presents with cough, sinus congestion and drainage, sore throat and headache for the past 5 days. Symptoms are worsening and now having sinus pressure and body aches along with some tightness in her throat and chest. . She recently traveled to [place] by car for a . She has not had a fever. Cough is dry. She has been taking benadryl, tessalon perles, and using her inhaler. Review of Systems Constitutional: Positive for malaise/fatigue. Negative for chills and fever. HENT: Positive for congestion, sinus pain and sore throat. Negative for ear pain. Respiratory: Positive for cough and shortness of breath. Negative for sputum production. Cardiovascular: Negative for chest pain. Gastrointestinal: Negative for diarrhea, nausea and vomiting. Musculoskeletal: Positive for myalgias. Neurological: Positive for headaches. BP 140/90 Pulse 63 Temp 36.7 ?C (98 ?F) Resp 21 Wt 55.8 kg (123 lb 0.3 oz) SpO2 99% BMI 21.93 kg/m? PAST MEDICAL HISTORY Diagnosis Date Elevated blood sugar 11/19/2021 History of COVID-19 11/01/2021 10/11/2021 Hyperlipidemia, mixed 12/24/2022 Hypertension, essential 11/01/2021 Lumbar back pain 05/21/2022 Osteopenia, senile 08/26/2023 Postoperative hypothyroidism 11/01/2021 Removed due to goiter. Primary insomnia 11/01/2021 RLS (restless legs syndrome) 11/01/2021 On gabapentin PAST SURGICAL HISTORY Procedure Laterality Date COLONOSCOPY 01/22/2023 repeat 5 years CYST/MOLE REMOVAL Left 1977 benign cyst- Left breast PAST SURGICAL HISTORY OF 2018 cervical fusion PAST SURGICAL HISTORY OF 2017 right shoulder decompression PAST SURGICAL HISTORY OF Bilateral foot surgery THYROIDECTOMY 10/2018 due to goiter, no cancer TONSILLECTOMY HX 8 yo ALLERGIES Augmentin [Amoxicillin-Pot Clavulanate] MEDICATIONS multivit with minerals/lutein (MULTIVITAMIN 50 PLUS ORAL) Take by mouth once daily. docosahexaenoic acid/epa (FISH OIL ORAL) Take by mouth as directed. MAGNESIUM ORAL Take by mouth as directed. TURMERIC ORAL Take by mouth as directed. pravastatin (PRAVACHOL) 20 mg tablet Take 1 tablet by mouth daily at bedtime. gabapentin (NEURONTIN) 300 mg capsule Take 1 capsule by mouth two times a day for 180 days. dicyclomine (BENTYL) 10 mg capsule Take 1 capsule by mouth before meals and at bedtime. traZODone (DESYREL) 150 mg tablet Take 1 tablet by mouth daily at bedtime. busPIRone (BUSPAR) 5 mg tablet Take 1 tablet by mouth three times a day as needed. PRN levothyroxine (SYNTHROID) 88 mcg tablet Take 1 tablet by mouth daily before breakfast. Take one tablet daily before breakfast losartan (COZAAR) 25 mg tablet Take 1 tablet by mouth once daily. Take one tablet daily betamethasone dipropionate (DIPROSONE) 0.05 % cream Apply to affected area twice daily. doxycycline (VIBRA-TABS) 100 mg tablet Take 1 tablet by mouth two times a day for 7 days. predniSONE (DELTASONE) 20 mg tablet Take 2 tablets by mouth once daily for 4 days. benzonatate (TESSALON PERLE) 100 mg capsule Take 2 capsules by mouth three times a day as needed for up to 10 days. FAMILY HISTORY Problem Relation Age of Onset Cancer Mother Lung? other (a. fib) Father other (TIA) Father Hyperlipidemia Father Hypertension Father Hypertension Sister Stroke Maternal Grandmother Diabetes Maternal Grandmother Ischemic Heart Disease Maternal Grandfather Heart disease Maternal Grandfather Stroke Paternal Grandmother Heart Attack Paternal Grandfather Ovarian cancer Maternal Aunt Social History Tobacco Use Smoking status: Never Smokeless tobacco: Never Vaping Use Vaping status: Never Used Substance Use Topics Alcohol use: Not Currently Comment: occasionally Drug use: Never Objective Physical Exam Vitals and nursing note reviewed. Constitutional: General: She is not in acute distress. Appearance: Normal appearance. She is not ill-appearing. HENT: Right Ear: Tympanic membrane, ear canal and external ear normal. Left Ear: Tympanic membrane, ear canal and external ear normal. Nose: Nasal tenderness, mucosal edema, congestion and rhinorrhea present. Mouth/Throat: Mouth: Mucous membranes are moist. Pharynx: Oropharynx is clear. Uvula midline. No oropharyngeal exudate or posterior oropharyngeal erythema. Cardiovascular: Rate and Rhythm: Normal rate and regular rhythm. Heart sounds: Normal heart sounds. Pulmonary: Effort: Pulmonary effort is normal. No respiratory distress. Breath sounds: Normal breath sounds. No wheezing or rales. Musculoske (more content not included)...[facility]11-21-2024 History of Present illness Narrative* Tank Watt APRN.[facility] - 03/10/2024 12:32 PM EST Subjective Cough Associated symptoms include headaches, sore throat, myalgias and shortness of breath. Pertinent negatives include no chest pain, no chills and no ear pain. Lillian Velazquez is a 68 year old female who presents with cough, sinus congestion and drainage, sore throat and headache for the past 5 days. Symptoms are worsening and now having sinus pressure and body aches along with some tightness in her throat and chest. . She recently traveled to [place] by car for a . She has not had a fever. Cough is dry. She has been taking benadryl, tessalon perles, and using her inhaler. Review of Systems Constitutional: Positive for malaise/fatigue. Negative for chills and fever. HENT: Positive for congestion, sinus pain and sore throat. Negative for ear pain. Respiratory: Positive for cough and shortness of breath. Negative for sputum production. Cardiovascular: Negative for chest pain. Gastrointestinal: Negative for diarrhea, nausea and vomiting. Musculoskeletal: Positive for myalgias. Neurological: Positive for headaches. BP 140/90 Pulse 63 Temp 36.7 C (98 F) Resp 21 Wt 55.8 kg (123 lb 0.3 oz) SpO2 99% BMI 21.93 kg/m PAST MEDICAL HISTORY Diagnosis Date Elevated blood sugar 11/19/2021 History of COVID-19 11/01/2021 10/11/2021 Hyperlipidemia, mixed 12/24/2022 Hypertension, essential 11/01/2021 Lumbar back pain 05/21/2022 Osteopenia, senile 08/26/2023 Postoperative hypothyroidism 11/01/2021 Removed due to goiter. Primary insomnia 11/01/2021 RLS (restless legs syndrome) 11/01/2021 On gabapentin PAST SURGICAL HISTORY Procedure Laterality Date COLONOSCOPY 01/22/2023 repeat 5 years CYST/MOLE REMOVAL Left 1977 benign cyst- Left breast PAST SURGICAL HISTORY OF 2018 cervical fusion PAST SURGICAL HISTORY OF 2017 right shoulder decompression PAST SURGICAL HISTORY OF Bilateral foot surgery THYROIDECTOMY 10/2018 due to goiter, no cancer TONSILLECTOMY HX 8 yo ALLERGIES Augmentin [Amoxicillin-Pot Clavulanate] MEDICATIONS multivit with minerals/lutein (MULTIVITAMIN 50 PLUS ORAL) Take by mouth once daily. docosahexaenoic acid/epa (FISH OIL ORAL) Take by mouth as directed. MAGNESIUM ORAL Take by mouth as directed. TURMERIC ORAL Take by mouth as directed. pravastatin (PRAVACHOL) 20 mg tablet Take 1 tablet by mouth daily at bedtime. gabapentin (NEURONTIN) 300 mg capsule Take 1 capsule by mouth two times a day for 180 days. dicyclomine (BENTYL) 10 mg capsule Take 1 capsule by mouth before meals and at bedtime. traZODone (DESYREL) 150 mg tablet Take 1 tablet by mouth daily at bedtime. busPIRone (BUSPAR) 5 mg tablet Take 1 tablet by mouth three times a day as needed. PRN levothyroxine (SYNTHROID) 88 mcg tablet Take 1 tablet by mouth daily before breakfast. Take one tablet daily before breakfast losartan (COZAAR) 25 mg tablet Take 1 tablet by mouth once daily. Take one tablet daily betamethasone dipropionate (DIPROSONE) 0.05 % cream Apply to affected area twice daily. doxycycline (VIBRA-TABS) 100 mg tablet Take 1 tablet by mouth two times a day for 7 days. predniSONE (DELTASONE) 20 mg tablet Take 2 tablets by mouth once daily for 4 days. benzonatate (TESSALON PERLE) 100 mg capsule Take 2 capsules by mouth three times a day as needed for up to 10 days. FAMILY HISTORY Problem Relation Age of Onset Cancer Mother Lung? other (a. fib) Father other (TIA) Father Hyperlipidemia Father Hypertension Father Hypertension Sister Stroke Maternal Grandmother Diabetes Maternal Grandmother Ischemic Heart Disease Maternal Grandfather Heart disease Maternal Grandfather Stroke Paternal Grandmother Heart Attack Paternal Grandfather Ovarian cancer Maternal Aunt Social History Tobacco Use Smoking status: Never Smokeless tobacco: Never Vaping Use Vaping status: Never Used Substance Use Topics Alcohol use: Not Currently Comment: occasionally Drug use: Never Objective Physical Exam Vitals and nursing note reviewed. Constitutional: General: She is not in acute distress. Appearance: Normal appearance. She is not ill-appearing. HENT: Right Ear: Tympanic membrane, ear canal and external ear normal. Left Ear: Tympanic membrane, ear canal and external ear normal. Nose: Nasal tenderness, mucosal edema, congestion and rhinorrhea present. Mouth/Throat: Mouth: Mucous membranes are moist. Pharynx: Oropharynx is clear. Uvula midline. No oropharyngeal exudate or posterior oropharyngeal erythema. Cardiovascular: Rate and Rhythm: Normal rate and regular rhythm. Heart sounds: Normal heart sounds. Pulmonary: Effort: Pulmonary effort is normal. No respiratory distress. Breath sounds: Normal breath sounds. No wheezing or rales. Musculoskeletal: Cervical back: Neck supple. Lymphadenopathy: Cervical: No cervical adenopathy. Skin: General: Skin is warm and dry. Findings: No erythema or rash. Neurological: Mental Status: She is alert. ASSESSMENT/PLAN: 1. Sinobronchitis - ICD9: 473.9, 490, ICD10: J32.9, J40 (primary diagnosis) - Will begin treatment with as per antibiotic as written, see orders - Supportive care with plenty of fluids, rest, and analgesia prn. - DOXYCYCLINE HYCLATE 100 MG TABLET - PREDNISONE 20 MG TABLET - continue using your inhaler as needed 2. Acute cough - ICD9: 786.2, ICD10: R05.1 - BENZONATATE 100 MG CAPSULE - Follow-up with your PCP in 3-5 days if symptoms have not improved or sooner if symptoms worsen - Discussed red flags and need for immediate medical evaluation if any occur. - Discussed supportive care treatment with fluids, rest and analgesia. - Discussed expected course of illness Tank Watt APRN.INDUSTRIAL INSULATOR [facility] NoteHNO ID: [id number] Author: QUOC MCCRACKEN PT Service: ? Author Type: Physical Therapist Type: Progress Notes Filed: 02/25/2024 17:54 Note Text: Episode Visit Count: 3 Therapist That Will Accept/Oversee The Plan Of Care: Quoc Mccracken PT Start of Care Date: 01/21/24 Onset Date: 06/29/22 Plan of Care Certification Date: 02/25/24 Next Certification Due Date: 03/31/24 Patient Identified by Name and Date of : Yes REHABILITATION AND SPORTS THERAPY PHYSICAL THERAPY PROGRESS REPORT PLAN OF CARE UPDATE: Assessment: Lillian Velazquez demonstrates difficulty with none and improvements in lumbar AROM, pain intensity and independence with the HEP. The patient has progressed toward goals. Patient continues to present with impairments in tissue tenderness that interfere with nothing . Current prognosis is Good due to: current objective clinical presentation . The patient will benefit from continued skilled therapy services to meet the updated goals for this plan of care as noted below. Goals updated 02/23/2023 Goals for Episode of Care: created on 08/29/22 through 10/24/22 Pt will demo 4/5 glute med strength on the R for improved gait and decreased pain - Met Pt will be able to perform gardening with 1/10 pain or less in 8 weeks Progressing, will continue - Progressed Pt will demo normal lumbar flexion without symptoms in 8 weeks or less - MET Normal gait. - MET Patient Goals: Decrease the pain Time Frame for Goals and Treatment : 10/24/22 Patient Goals: Decrease her pain Planned Interventions, Frequency, and Duration: 1x/month, One month Total Number of Visits Planned: 1 Patient to be seen for Therapeutic exercise (23155), Neuromuscular re-education (83466), Manual therapy (34404), Therapeutic activities (47873), Self-skilled nursing management (07544), Patient/Family/Caregiver Education, Body Mechanics Training PLAN FOR NEXT VISIT: Possibly DDN and /or DC Classification Pain Mechanism Classification: Nociceptive Low Back Pain Classification: Functional Optimization SUBJECTIVE: Feels a lot better since the dry needling. It is amazing! Has been doing great. Feels 80-90% improvement overall.. Patient Goals: Decrease her pain Functional Limitations: nothing Prior Level of Function: Independent without limitations Intake Information: Prescription present Pain: Pain Pain Level: 0 Pain Location: Low Back/Lumbar Spine - Left PROMIS Scales 02/24/2024 01/20/2024 01/15/2023 Higher is Better Phys Func - Score 48 (within normal limits) 41 (mild dysfunction) 50 (within normal limits) Phys Func - Percentile 42 18 50 Self-Eff Symptom - Score 51 (Average) 41 (Average) 51 (Average) Self-Eff Symptom - Percentile 54 18 54 T-scores: mean of general population = 50. 5 points is clinically meaningfully difference Percentiles provide an indication of how the patient's score ranks in relation to the general population. Higher percentile rankings indicate better function/quality of life. 50th percentile is the average of the general population and indicates half of respondents had a worse score. OBJECTIVE MEASURES WITH LEVEL OF FUNCTION: Spine Observations R Lumbar Spine Palpation Tenderness: Paraspinals Lumbar Spine AROM Lumbar Flexion: Normal Lumbar Extension: Normal, End range pain (R side) Lumbar R Side-Bend: Normal, End range pain Lumbar L Side-Bend: Normal Lumbar R Rotation: Normal Lumbar L Rotation: Normal Pt demo'd all lumbar AROM without pain and ROM was WNL TREATMENT: Therapeutic Exercise: 1: All objective measures taken 2: Child's pose arm offset to the left x 10 holding 5-10 sec Skilled Intervention: Patient was educated in proper exercise technique and purpose for exercises. Provided written instruction for home exercise program to facilitate proper performance and compliance. Correct performance of therapeutic exercises was facilitated with verbal and visual cuing. Manual Therapy: 1: DDN (See note for details) 2: Bowstringing R lumbar paraspinals Skilled Intervention: Manual skills to improve joint mobility, ROM, and decrease pain. Utilized anatomy knowledge of the therapist, and assessment of patient's response to intervention. Billing Therapeutic Exercise Treatment Minutes: 15 Manual TherapyTreatment Minutes: 23 Skilled Treatment Time Minutes (timed and untimed codes): 38 Total Session Time (minutes): 38 Session Start Time : 1714 Session Stop Time : 175 Quoc Mccracken [facility]11-07-2024 History of Present illness Narrative* Quoc Mccracken, PT - 02/25/2024 5:16 PM EST Images from the original note were not included. Episode Visit Count: 3 Therapist That Will Accept/Oversee The Plan Of Care: Quoc Mccracken PT Start of Care Date: 01/21/24 Onset Date: 06/29/22 Plan of Care Certification Date: 02/25/24 Next Certification Due Date: 03/31/24 Patient Identified by Name and Date of : Yes REHABILITATION AND SPORTS THERAPY PHYSICAL THERAPY PROGRESS REPORT PLAN OF CARE UPDATE: Assessment: Lillian Velazquez demonstrates difficulty with none and improvements in lumbar AROM, pain intensity and independence with the HEP. The patient has progressed toward goals. Patient continues to present with impairments in tissue tenderness that interfere with nothing . Current prognosis is Good due to: current objective clinical presentation . The patient will benefit from continued skilled therapy services to meet the updated goals for this plan of care as noted below. Goals updated 02/23/2023 Goals for Episode of Care: created on 08/29/22 through 10/24/22 Pt will demo 4/5 glute med strength on the R for improved gait and decreased pain - Met Pt will be able to perform gardening with 1/10 pain or less in 8 weeks Progressing, will continue -Progressed Pt will demo normal lumbar flexion without symptoms in 8 weeks or less - MET Normal gait. - MET Patient Goals: Decrease the pain Time Frame for Goals and Treatment : 10/24/22 Patient Goals: Decrease her pain Planned Interventions, Frequency, and Duration: 1x/month, One month Total Number of Visits Planned: 1 Patient to be seen for Therapeutic exercise (07766), Neuromuscular re-education (66349), Manual therapy (53118), Therapeutic activities (26407), Self-skilled nursing management (76786), Patient/Family/Caregiver Education, Body Mechanics Training PLAN FOR NEXT VISIT: Possibly DDN and /or DC Classification Pain Mechanism Classification: Nociceptive Low Back Pain Classification: Functional Optimization SUBJECTIVE: Feels a lot better since the dry needling. It is amazing! Has been doing great. Feels 80-90% improvement overall.. Patient Goals: Decrease her pain Functional Limitations: nothing Prior Level of Function: Independent without limitations Intake Information: Prescription present Pain: Pain Pain Level: 0 Pain Location: Low Back/Lumbar Spine - Left PROMIS Scales 02/24/2024 01/20/2024 01/15/2023 Higher is Better Phys Func - Score 48 (within normal limits) 41 (mild dysfunction) 50 (within normal limits) Phys Func - Percentile 42 18 50 Self-Eff Symptom - Score 51 (Average) 41 (Average) 51 (Average) Self-Eff Symptom - Percentile 54 18 54 T-scores: mean of general population = 50. 5 points is clinically meaningfully difference Percentiles provide an indication of how the patient's score ranks in relation to the general population. Higher percentile rankings indicate better function/quality of life. 50th percentile is the average of the general population and indicates half of respondents had a worse score. OBJECTIVE MEASURES WITH LEVEL OF FUNCTION: Spine Observations R Lumbar Spine Palpation Tenderness: Paraspinals Lumbar Spine AROM Lumbar Flexion: Normal Lumbar Extension: Normal, End range pain (R side) Lumbar R Side-Bend: Normal, End range pain Lumbar L Side-Bend: Normal Lumbar R Rotation: Normal Lumbar L Rotation: Normal Pt demo'd all lumbar AROM without pain and ROM was WNL TREATMENT: Therapeutic Exercise: 1: All objective measures taken 2: Child's pose arm offset to the left x 10 holding 5-10 sec Skilled Intervention: Patient was educated in proper exercise technique and purpose for exercises. Provided written instruction for home exercise program to facilitate proper performance and compliance. Correct performance of therapeutic exercises was facilitated with verbal and visual cuing. Manual Therapy: 1: DDN (See note for details) 2: Bowstringing R lumbar paraspinals Skilled Intervention: Manual skills to improve joint mobility, ROM, and decrease pain. Utilized anatomy knowledge of the therapist, and assessment of patient's response to intervention. Billing Therapeutic Exercise Treatment Minutes: 15 Manual TherapyTreatment Minutes: 23 Skilled Treatment Time Minutes (timed and untimed codes): 38 Total Session Time (minutes): 38 Session Start Time : 1713 Session Stop Time : 1751 Quoc Mccracken PT documented in this encounter[facility] NoteHNO ID: [id number] Author: QUOC MCCRACKEN PT Service: ? Author Type: Physical Therapist Type: Progress Notes Filed: 02/23/2024 16:23 Note Text: Episode Visit Count: 2 Therapist That Will Accept/Oversee The Plan Of Care: Quoc Mccracken PT Start of Care Date: 01/21/24 Onset Date: 06/29/22 Plan of Care Certification Date: 01/21/24 Next Certification Due Date: 02/25/24 Patient Identified by Name and Date of : Yes REHABILITATION AND SPORTS THERAPY PHYSICAL THERAPY TREATMENT NOTE ASSESSMENT: Lillian Velazquez tolerated the session with expected muscle soreness and improved lumbar ROM. She demonstrated a favorable response to DDN without bleeding or any negative reactions. The patient will continue to benefit from ongoing skilled physical therapy to progress toward set goals. PLAN FOR NEXT VISIT: DDN PRN. Hip strengthening. SUBJECTIVE: Woke up in pain this morning. Over did it with the grandkids. Feels so stiff in the low back right now. She was working in the kitchen when she felt that something was going to go. Pain: Pain Pain Level: 4 Pain Location: Low Back/Lumbar Spine - Left OBJECTIVE MEASURES WITH LEVEL OF FUNCTION: Pain with lumbar flexion and extension with normal ROM Limited L SG of hips After DDN all Lumbar AROM improved in pain/ROM TREATMENT: Therapeutic Exercise: 1: Sidelying clamshell x 10 each side 2: Sidelying hip abduction x 10 3: Sidelying clamshell lvl 2 band x 10 (reuced ROM but lvl 2 band vended) Skilled Intervention: Patient was educated in proper exercise technique and purpose for exercises. Correct performance of therapeutic exercises was facilitated with verbal and visual cuing. Manual Therapy: 1: STM over lumbar paraspinals 2: DDN (See note for details) Dry needling to following Trigger points: lumbar paraspinals and multifidi Needle length: 50mm 2.0 in . Gabriels used 4, needles removed 4. Dry needling technique used: Pistoning, Fanning, and Deep needling. Patient education on purpose, precautions, safety, risks, and other treatment options regarding dry needling. Verbal consent received. Skilled Intervention: Manual skills to improve joint mobility, ROM, and decrease pain. Utilized anatomy knowledge of the therapist, and assessment of patient's response to intervention. Billing Therapeutic Exercise Treatment Minutes: 16 Manual TherapyTreatment Minutes: 29 Skilled Treatment Time Minutes (timed and untimed codes): 45 Total Session Time (minutes): 45 Session Start Time : 1044 Session Stop Time : 1129 Quoc Mccracken [facility]10-24-2024 History of Present illness Narrative* Nancy Mccrackeny, PT - 02/11/2024 10:44 AM EDT Episode Visit Count: 2 Therapist That Will Accept/Oversee The Plan Of Care: Quoc Mccracken PT Start of Care Date: 01/21/24 Onset Date: 06/29/22 Plan of Care Certification Date: 01/21/24 Next Certification Due Date: 02/25/24 Patient Identified by Name and Date of : Yes REHABILITATION AND SPORTS THERAPY PHYSICAL THERAPY TREATMENT NOTE ASSESSMENT: Lillian Velazquez tolerated the session with expected muscle soreness and improved lumbarROM. She demonstrated a favorable response to DDN without bleeding or any negative reactions. The patient will continue to benefit from ongoing skilled physical therapy to progress toward set goals. PLAN FOR NEXT VISIT: DDN PRN. Hip strengthening. SUBJECTIVE: Woke up in pain this morning. Over did it with the grandkids. Feels so stiff in the lowback right now. She was working in the kitchen when she felt that something was going to go. Pain: Pain Pain Level: 4 Pain Location: Low Back/Lumbar Spine - Left OBJECTIVE MEASURES WITH LEVEL OF FUNCTION: Pain with lumbar flexion and extension with normal ROM Limited L SG of hips After DDN all Lumbar AROM improved in pain/ROM TREATMENT: Therapeutic Exercise: 1: Sidelying clamshell x 10 each side 2: Sidelying hip abduction x 10 3: Sidelying clamshell lvl 2 band x 10 (reuced ROM but lvl 2 band vended) Skilled Intervention: Patient was educated in proper exercise technique and purpose for exercises. Correct performance of therapeutic exercises was facilitated with verbal and visual cuing. Manual Therapy: 1: STM over lumbar paraspinals 2: DDN (See note for details) Skilled Intervention: Manual skills to improve joint mobility, ROM, and decrease pain. Utilized anatomy knowledge of the therapist, and assessment of patient's response to intervention. Billing Therapeutic Exercise Treatment Minutes: 16 Manual TherapyTreatment Minutes: 29 Skilled Treatment Time Minutes (timed and untimed codes): 45 Total Session Time (minutes): 45 Session Start Time : 1044 Session Stop Time : 1129 Quoc Mccracken PT [facility] Tele[facility] encounter Note * Telephone Encounter - Joslyn Dunne MA - 02/09/2024 8:58 AM EDT Detailed message left on pt identified VM. Joslyn Dunne MA [facility]10-22-[facility]24 Miscellaneous Notes* Telephone Encounter - Joslyn Dunne MA - 02/09/2024 8:58 AM EDT Detailed message left on pt identified VM. Joslyn Dunne MA * Telephone Encounter - Aziza Thompson PA-C - 02/09/2024 8:51 AM EDT Labs are overall okay. Cholesterol has improved. Thyroid levels are normal. Metabolic panel normal. Thanks. Aziza Thompson PA-C documented in this encounter[facility] Telephone encounter Note * Telephone Encounter - Aziza Thompson PA-C - 02/09/2024 8:51 AM EDT Labs are overall okay. Cholesterol has improved. Thyroid levels are normal. Metabolic panel normal. Thanks. Aziza Thompson PA-C [facility]10-21-2024 NoteHNO ID: [id number] Author: AZIZA THOMPSON PA-C Service: ? Author Type: Physician Clin Tech Type: Progress Notes Filed: 02/08/2024 14:07 Note Text: Chief Complaint Patient presents with: 6 Month Exam HPI Lillian Velazquez is a 68 year old female who presents here today for Chronic Medical Conditions.. Patient with hx of HTN, hyperlipidemia, hypothyroidism, elevated blood sugar, and those as below. Overall patient doing well. No specific concerns today. Past medical history, appointments, medications, allergies reviewed. Previous Medical History PAST MEDICAL HISTORY Diagnosis Date Elevated blood sugar 11/19/2021 History of COVID-19 11/01/2021 10/11/2021 Hyperlipidemia, mixed 12/24/2022 Hypertension, essential 11/01/2021 Lumbar back pain 05/21/2022 Osteopenia, senile 08/26/2023 Postoperative hypothyroidism 11/01/2021 Removed due to goiter. Primary insomnia 11/01/2021 RLS (restless legs syndrome) 11/01/2021 On gabapentin Previous Surgical History PAST SURGICAL HISTORY Procedure Laterality Date COLONOSCOPY 01/22/2023 repeat 5 years CYST/MOLE REMOVAL Left 1977 benign cyst- Left breast PAST SURGICAL HISTORY OF 2018 cervical fusion PAST SURGICAL HISTORY OF 2017 right shoulder decompression PAST SURGICAL HISTORY OF Bilateral foot surgery THYROIDECTOMY 10/2018 due to goiter, no cancer TONSILLECTOMY HX 8 yo Family History FAMILY HISTORY Problem Relation Age of Onset Cancer Mother Lung? other (a. fib) Father other (TIA) Father Hyperlipidemia Father Hypertension Father Hypertension Sister Stroke Maternal Grandmother Diabetes Maternal Grandmother Ischemic Heart Disease Maternal Grandfather Heart disease Maternal Grandfather Stroke Paternal Grandmother Heart Attack Paternal Grandfather Ovarian cancer Maternal Aunt Patient Allergies ALLERGIES Allergen Reactions Augmentin [Amoxicil* GI Upset Current Medications Current Outpatient Medications on File Prior to Visit Medication Sig multivit with minerals/lutein (MULTIVITAMIN 50 PLUS ORAL) Take by mouth once daily. docosahexaenoic acid/epa (FISH OIL ORAL) Take by mouth as directed. MAGNESIUM ORAL Take by mouth as directed. TURMERIC ORAL Take by mouth as directed. pravastatin (PRAVACHOL) 20 mg tablet Take 1 tablet by mouth daily at bedtime. gabapentin (NEURONTIN) 300 mg capsule Take 1 capsule by mouth two times a day for 180 days. dicyclomine (BENTYL) 10 mg capsule Take 1 capsule by mouth before meals and at bedtime. traZODone (DESYREL) 150 mg tablet Take 1 tablet by mouth daily at bedtime. busPIRone (BUSPAR) 5 mg tablet Take 1 tablet by mouth three times a day as needed. PRN levothyroxine (SYNTHROID) 88 mcg tablet Take 1 tablet by mouth daily before breakfast. Take one tablet daily before breakfast losartan (COZAAR) 25 mg tablet Take 1 tablet by mouth once daily. Take one tablet daily betamethasone dipropionate (DIPROSONE) 0.05 % cream Apply to affected area twice daily. No current facility-administered medications on file prior to visit. Social History Social History Tobacco Use Smoking status: Never Smokeless tobacco: Never Vaping Use Vaping status: Never Used Substance Use Topics Alcohol use: Not Currently Comment: occasionally Drug use: Never Review of Symptoms REVIEW OF SYSTEMS GENERAL: No weight loss, malaise or fevers NECK: Negative for lumps, goiter, pain and significant neck swelling RESPIRATORY: Negative for cough, hemoptysis, wheezing, COPD, dyspnea or shortness of breath CARDIOVASCULAR: Negative for chest pain, leg swelling, hypertension, CHF or palpitations NEURO: No history of headaches, syncope, paralysis, seizures or tremors EXAM: BP 126/86 (BP Site: Right Arm, BP Position: Sitting, BP Cuff Size: Regular Adult) Pulse (!) 52 Temp 36.3 ?C (97.3 ?F) Resp 16 Wt 54 kg (119 lb) SpO2 99% BMI 21.22 kg/m? General Appearance: Well appearing, alert, in no acute distress, well-hydrated, well nourished.. Neck: Supple, no adenopathy; thyroid symmetric, normal size, no bruits. Lungs: Lungs clear to auscultation. No wheezing, rhonchi, rales.. Heart: RRR without murmur, gallop, or rubs. No ectopy. Extremities: No deformities, edema, skin discoloration, clubbing or cyanosis. Good capillary refill. . Peripheral Pulses: Normal. Health Maintenance List DTaP,Tdap,Td Vaccine(1 - Tdap) Never done Shingrix Vaccine(1 of 2) Never done Influenza Vaccine(1) due on 12/20/2023 Mammogram Screening due on 05/20/2024 Covid-19 Vaccine() due on 02/07/2025 Depression Screening due on 07/22/2024 Anxiety Screening due on 07/22/2024 BP Controlled (<130/80) due on 11/18/2024 Annual PCP Team Chronic Disease Visit due on 02/07/2025 Diabetes Screening due on 08/02/2026 Colorectal Cancer Screening due on 01/23/2028 Lipid Screening due on 07/23/2028 RSV Vaccine(1 - 1-dose 75+ series) due on 12/15/2031 (more content not included)...[facility]10-21-2024 History of Present illness Narrative* Aziza Thompson PA-C - 02/08/2024 1:18 PM EDT Chief Complaint Patient presents with: 6 Month Exam HPI Lillian Velazquez is a 68 year old female who presents here today for Chronic Medical Conditions.. Patient with hx of HTN, hyperlipidemia, hypothyroidism, elevated blood sugar, and those as below. Overall patient doing well. No specific concerns today. Past medical history, appointments, medications, allergies reviewed. Previous Medical History PAST MEDICAL HISTORY Diagnosis Date Elevated blood sugar 11/19/2021 History of COVID-19 11/01/2021 10/11/2021 Hyperlipidemia, mixed 12/24/2022 Hypertension, essential 11/01/2021 Lumbar back pain 05/21/2022 Osteopenia, senile 08/26/2023 Postoperative hypothyroidism 11/01/2021 Removed due to goiter. Primary insomnia 11/01/2021 RLS (restless legs syndrome) 11/01/2021 On gabapentin Previous Surgical History PAST SURGICAL HISTORY Procedure Laterality Date COLONOSCOPY 01/22/2023 repeat 5 years CYST/MOLE REMOVAL Left 1977 benign cyst- Left breast PAST SURGICAL HISTORY OF 2018 cervical fusion PAST SURGICAL HISTORY OF 2017 right shoulder decompression PAST SURGICAL HISTORY OF Bilateral foot surgery THYROIDECTOMY 10/2018 due to goiter, no cancer TONSILLECTOMY HX 8 yo Family History FAMILY HISTORY Problem Relation Age of Onset Cancer Mother Lung? other (a. fib) Father other (TIA) Father Hyperlipidemia Father Hypertension Father Hypertension Sister Stroke Maternal Grandmother Diabetes Maternal Grandmother Ischemic Heart Disease Maternal Grandfather Heart disease Maternal Grandfather Stroke Paternal Grandmother Heart Attack Paternal Grandfather Ovarian cancer Maternal Aunt Patient Allergies ALLERGIES Allergen Reactions Augmentin [Amoxicil* GI Upset Current Medications Current Outpatient Medications on File Prior to Visit Medication Sig multivit with minerals/lutein (MULTIVITAMIN 50 PLUS ORAL) Take by mouth once daily. docosahexaenoic acid/epa (FISH OIL ORAL) Take by mouth as directed. MAGNESIUM ORAL Take by mouth as directed. TURMERIC ORAL Take by mouth as directed. pravastatin (PRAVACHOL) 20 mg tablet Take 1 tablet by mouth daily at bedtime. gabapentin (NEURONTIN) 300 mg capsule Take 1 capsule by mouth two times a day for 180 days. dicyclomine (BENTYL) 10 mg capsule Take 1 capsule by mouth before meals and at bedtime. traZODone (DESYREL) 150 mg tablet Take 1 tablet by mouth daily at bedtime. busPIRone (BUSPAR) 5 mg tablet Take 1 tablet by mouth three times a day as needed. PRN levothyroxine (SYNTHROID) 88 mcg tablet Take 1 tablet by mouth daily before breakfast. Take one tablet daily before breakfast losartan (COZAAR) 25 mg tablet Take 1 tablet by mouth once daily. Take one tablet daily betamethasone dipropionate (DIPROSONE) 0.05 % cream Apply to affected area twice daily. No current facility-administered medications on file prior to visit. Social History Social History Tobacco Use Smoking status: Never Smokeless tobacco: Never Vaping Use Vaping status: Never Used Substance Use Topics Alcohol use: Not Currently Comment: occasionally Drug use: Never Review of Symptoms REVIEW OF SYSTEMS GENERAL: No weight loss, malaise or fevers NECK: Negative for lumps, goiter, pain and significant neck swelling RESPIRATORY: Negative for cough, hemoptysis, wheezing, COPD, dyspnea or shortness of breath CARDIOVASCULAR: Negative for chest pain, leg swelling, hypertension, CHF or palpitations NEURO: No history of headaches, syncope, paralysis, seizures or tremors EXAM: BP 126/86 (BP Site: Right Arm, BP Position: Sitting, BP Cuff Size: Regular Adult) Pulse (!) 52 Temp 36.3 C (97.3 F) Resp 16 Wt 54 kg (119 lb) SpO2 99% BMI 21.22 kg/m General Appearance: Well appearing, alert, in no acute distress, well-hydrated, well nourished.. Neck: Supple, no adenopathy; thyroid symmetric, normal size, no bruits. Lungs: Lungs clear to auscultation. No wheezing, rhonchi, rales.. Heart: RRR without murmur, gallop, or rubs. No ectopy. Extremities: No deformities, edema, skin discoloration, clubbing or cyanosis. Good capillary refill. . Peripheral Pulses: Normal. Health Maintenance List DTaP,Tdap,Td Vaccine(1 - Tdap) Never done Shingrix Vaccine(1 of 2) Never done Influenza Vaccine(1) due on 12/20/2023 Mammogram Screening due on 05/20/2024 Covid-19 Vaccine( season) due on 02/07/2025 Depression Screening due on 07/22/2024 Anxiety Screening due on 07/22/2024 BP Controlled (<130/80) due on 11/18/2024 Annual PCP Team Chronic Disease Visit due on 02/07/2025 Diabetes Screening due on 08/02/2026 Colorectal Cancer Screening due on 01/23/2028 Lipid Screening due on 07/23/2028 RSV Vaccine(1 - 1-dose 75+ series) due on 12/15/2031 Bone Density Screening Completed Advance Directive Discussion Completed Pneumococcal Vaccine: 65+ Completed Cervical Cancer Screening Discontinued Hepatitis C Screening Discontinued Data reviewed ASSESSMENT/PLAN: 1. Hypertension, essential - ICD9: 401.9, ICD10: I10 (primary diagnosis) - Controlled - Continue current medications - Recommend home blood pressure monitoring, to bring results to next visit - Encouraged sodium restriction, DASH or Mediterranean diet - Recommend regular aerobic exercise - BASIC METABOLIC PANEL 2. Hyperlipidemia, mixed - ICD9: 272.2, ICD10: E78.2 - Control undetermined, due for labs - Continue current medications - Counseled on healthy diet and regular exercise - LIPID PANEL, NONFASTING 3. Elevated blood sugar - ICD9: 790.29, ICD10: R73.9 Await labs 4. Postoperative hypothyroidism - ICD9: 244.0, ICD10: E89.0 - THYROID STIMULATING HORMONE 5. RLS (restless legs syndrome) - ICD9: 333.94, ICD10: G25.81 stable 6. Encounter for immunization - ICD9: V03.89, ICD10: Z23 - INFLUENZA VACCINE, PRSV FREE, AGE 65+ YR, HIGH DOSE, TRIVALENT (FLUZONE HIGH-DOSE) Aziza Thompson PA-C documented [facility]10[facility] Telephone encounter Note * Telephone Encounter - New Renee LPN - 02/03/2024 2:00 PM EDT Prescription Refill Information The patient has been identified by name and date of : Yes Caregiver verified no other encounters exist for this prescription request: Yes Caregiver confirmed with patient/requestor that no other refills are due, in the near future, with this provider at this time: Yes The last office visit in the department: 11/19/23 Does the patient have a future office visit with this provider/department: Yes Requested Prescriptions Pending Prescriptions Disp Refills pravastatin (PRAVACHOL) 20 mg tablet 90 tablet 1 Sig: Take 1 tablet by mouth daily at bedtime. New Renee LPN February 03, 2024 2:00 PM [facility]10-16-2024 Miscellaneous Notes* Telephone Encounter - New Renee LPN - 02/03/2024 2:00 PM EDT Prescription Refill Information The patient has been identified by name and date of : Yes Caregiver verified no other encounters exist for this prescription request: Yes Caregiver confirmed with patient/requestor that no other refills are due, in the near future, with this provider at this time: Yes The last office visit in the department: 11/19/23 Does the patient have a future office visit with this provider/department: Yes Requested Prescriptions Pending Prescriptions Disp Refills pravastatin (PRAVACHOL) 20 mg tablet 90 tablet 1 Sig: Take 1 tablet by mouth daily at bedtime. New Renee LPN February 03, 2024 2:00 PM documented in this encounterK[facility]10-[facility] History of Present illness Narrative* Quoc Mccracken, PT - 01/21/2024 2:56 PM EDT Program_ID:[id number] Access Code: [email or web address] URL: [email or web address] Date: 01-21-2024 Prepared By: Quoc Mccracken Program Notes Exercises - Clamshell - 1 x daily - 7 x weekly - 4 sets - 10 reps - Sidelying Hip Abduction - 1 x daily - 7 x weekly - 4 sets - 10 reps - Clamshell - 1 x daily - 7 x weekly - 4 sets - 10 reps - Sidelying Hip Abduction - 1 x daily - 7 x weekly - 4 sets - 10 reps * Quoc Mccracken, PT - 01/21/2024 1:59 PM EDT Images from the original note were not included. Episode Visit Count: 1 Therapist That Will Accept/Oversee The Plan Of Care: Quoc Mccracken PT Start of Care Date: 01/21/24 Onset Date: 06/29/22 Plan of Care Certification Date: 01/21/24 Next Certification Due Date: 02/25/24 Patient Identified by Name and Date of : Yes REHABILITATION AND SPORTS THERAPY PHYSICAL THERAPY EVALUATION PLAN OF CARE: Assessment: Lillian Velazquez presents with chief complaint of LBP and SIJ pain that interferes with sitting . The patient presents with impairments in ADL's, independence in exercise, overall function, and strength. PROMIS (Patient- Reported Outcomes Measurement Information System) scores were reviewed and identified as a rehabilitation concern. Prognosis for therapy is Good due to: current objective clinical presentation . End range pain on the R LB and weakness of the R hip is most notable during this exam. The patient will benefit from skilled therapy services to meet the goals established for this plan of care as noted below. Classification Pain Mechanism Classification: Nociceptive Goals for Episode of Care: established 01/21/24 Independent in home exercises. Pt will demo hip strength of 4+/5 or greater for improved hip stability and decreased SIJ pain and back pain. Pt will demo full lumbar ROM without pain in 12 weeks or less Patient Goals: Decrease her pain Planned Interventions, Frequency, and Duration: Current Frequency: 1x/week Duration: 8 weeks Total Number of Visits Planned: 8 Planned Treatment Interventions: Therapeutic exercise (80175), Neuromuscular re- education (16092), Manual therapy (02789), Therapeutic activities (83870), Self- skilled nursing management (19863), Patient/Family/Caregiver Education, Body Mechanics Training PLAN FOR NEXT VISIT: Hip strengthening. Possible DDN to lumbar spine. Patient demonstrates good understanding of plan of care and treatment. The above goals and plan of care were discussed and agreed upon by patient/family. SUBJECTIVE: LBP. Was in PT here 1 year ago. [place] she was doing better. But the past 6 months she has been doingwith ongoing LB issues. The original back pain was from a fall. Today she is not having too much pain. Working in the yard, traveling in the car, lifting her grandchildren causes things to worsen. The severe pain is more from getting out of a car and trying to get up straight. No N/T. Coughing doesnot make anything worse. Waks up feeling stiff. Cannot sleep on her back. Patient Goals: Decrease her pain Functional Limitations: sitting Prior Level of Function: Independent without limitations Intake Information: Prescription present Pain: Pain Pain Level: 0 (At its worst it can be 8-10/10) Pain Location: Low Back/Lumbar Spine - Left Description: Dull, Aching, Throbbing PROMIS Scales 01/20/2024 01/15/2023 12/01/2022 Higher is Better Phys Func - Score 41 (mild dysfunction) 50 (within normal limits) 42 (mild dysfunction) Phys Func - Percentile 18 50 21 Self-Eff Symptom - Score 41 (Average) 51 (Average) 43 (Average) Self-Eff Symptom - Percentile 18 54 24 T-scores: mean of general population = 50. 5 points is clinically meaningfully difference Percentiles provide an indication of how the patient's score ranks in relation to the general population. Higher percentile rankings indicate better function/quality of life. 50th percentile is the average of the general population and indicates half of respondents had a worse score. OBJECTIVE MEASURES WITH LEVEL OF FUNCTION: Spine Observations R Lumbar Spine Palpation Tenderness: Paraspinals Lumbar Spine AROM Lumbar Flexion: Normal, End range pain Lumbar Extension: Normal, End range pain (R side) Lumbar R Side-Bend: Normal, End range pain Lumbar L Side-Bend: Normal Lumbar R Rotation: Minimal limitation, End range pain Lumbar L Rotation: Normal (stretching pain on the R) Spine Joint Mobility Spine Joint Mobility : Lumbar/Thoracic Joint Mobility - L1: WNL Joint Mobility - L2: WNL Joint Mobility - L3: WNL Joint Mobility - L4: Hypomobile Joint Mobility - L5: Hypomobile (Increased familiar pain) LE Strength R Hip Flexion (L2): 4/5 R Hip ABduction: 3/5 R Hip External Rotation: 3+/5 L Hip Flexion (L2): 4+/5 L Hip ABduction: 3+/5 Special Tests - Hip and Spine Hip and Spine Special Tests: SI Palpation Tests, SI Cluster Tests SI Distraction Test: Right Positive SI Compression Test: Right Positive Sacral Thrust: Right Negative Education: Education Learning Preferences: Demonstration, Explanation, Performance, Printed Materials Barriers: None Learning/educational needs: Home exercise program, Plan of Care, Changes in Plan of Care Education Provided: Yes, see treatment interventions for education provided Education Provided To: Patient Education Mode/Type: Demonstration, Explanation/Discussion, Literature/Printed Materials, Performance Response to Education/Teach Back: States/Identifies, Return Demonstration TREATMENT: PT Treatment Interventions: Therapeutic Exercise Evaluation Therapeutic Exercise: 1: Discussed exam findings, purpose of the HEP and the HEP handout was provided to the pt. HEP discussed in detail with how to safely and properly perform each therapeutic exercise. 2: Sidelying hip abduction 2 x 10 (VC's for proper form and tactile cues to maintain proper hip extension) 3: Sidelying clamshell 2 x 10 Skilled Intervention: Patient was educated in proper exercise technique and purpose for exercises. Provided written instruction for home exercise program to facilitate proper performance and compliance. Correct performance of therapeutic exercises was facilitated with verbal and visual cuing. Billing * Evaluation Low Complexity: 1 Unit Therapeutic Exercise Treatment Minutes: 25 Skilled Treatment Time Minutes (timed and untimed codes): 65 Total Session Time (minutes): 65 Session Start Time : 1357 Session Stop Time : 1502 Quoc Mccracken PT documented in this encounterK[facility]10-[facility] NoteHNO ID: [id number] Author: QUOC MCCRACKEN PT Service: ? Author Type: Physical Therapist Type: Progress Notes Filed: 01/21/2024 15:38 Note Text: Episode Visit Count: 1 Therapist That Will Accept/Oversee The Plan Of Care: Quoc Mccracken PT Start of Care Date: 01/21/24 Onset Date: 06/29/22 Plan of Care Certification Date: 01/21/24 Next Certification Due Date: 02/25/24 Patient Identified by Name and Date of : Yes REHABILITATION AND SPORTS THERAPY PHYSICAL THERAPY EVALUATION PLAN OF CARE: Assessment: Lillian Velazquez presents with chief complaint of LBP and SIJ pain that interferes with sitting . The patient presents with impairments in ADL's, independence in exercise, overall function, and strength. PROMIS? (Patient-Reported Outcomes Measurement Information System) scores were reviewed and identified as a rehabilitation concern. Prognosis for therapy is Good due to: current objective clinical presentation . End range pain on the R LB and weakness of the R hip is most notable during this exam. The patient will benefit from skilled therapy services to meet the goals established for this plan of care as noted below. Classification Pain Mechanism Classification: Nociceptive Goals for Episode of Care: established 01/21/24 Independent in home exercises. Pt will demo hip strength of 4+/5 or greater for improved hip stability and decreased SIJ pain and back pain. Pt will demo full lumbar ROM without pain in 12 weeks or less Patient Goals: Decrease her pain Planned Interventions, Frequency, and Duration: Current Frequency: 1x/week Duration: 8 weeks Total Number of Visits Planned: 8 Planned Treatment Interventions: Therapeutic exercise (97561), Neuromuscular re-education (90016), Manual therapy (10950), Therapeutic activities (70938), Self-skilled nursing management (90957), Patient/Family/Caregiver Education, Body Mechanics Training PLAN FOR NEXT VISIT: Hip strengthening. Possible DDN to lumbar spine. Patient demonstrates good understanding of plan of care and treatment. The above goals and plan of care were discussed and agreed upon by patient/family. SUBJECTIVE: LBP. Was in PT here 1 year ago. [place] she was doing better. But the past 6 months she has been doing with ongoing LB issues. The original back pain was from a fall. Today she is not having too much pain. Working in the yard, traveling in the car, lifting her grandchildren causes things to worsen. The severe pain is more from getting out of a car and trying to get up straight. No N/T. Coughing does not make anything worse. Waks up feeling stiff. Cannot sleep on her back. Patient Goals: Decrease her pain Functional Limitations: sitting Prior Level of Function: Independent without limitations Intake Information: Prescription present Pain: Pain Pain Level: 0 (At its worst it can be 8-10/10) Pain Location: Low Back/Lumbar Spine - Left Description: Dull, Aching, Throbbing PROMIS Scales 01/20/2024 01/15/2023 12/01/2022 Higher is Better Phys Func - Score 41 (mild dysfunction) 50 (within normal limits) 42 (mild dysfunction) Phys Func - Percentile 18 50 21 Self-Eff Symptom - Score 41 (Average) 51 (Average) 43 (Average) Self-Eff Symptom - Percentile 18 54 24 T-scores: mean of general population = 50. 5 points is clinically meaningfully difference Percentiles provide an indication of how the patient's score ranks in relation to the general population. Higher percentile rankings indicate better function/quality of life. 50th percentile is the average of the general population and indicates half of respondents had a worse score. OBJECTIVE MEASURES WITH LEVEL OF FUNCTION: Spine Observations R Lumbar Spine Palpation Tenderness: Paraspinals Lumbar Spine AROM Lumbar Flexion: Normal, End range pain Lumbar Extension: Normal, End range pain (R side) Lumbar R Side-Bend: Normal, End range pain Lumbar L Side-Bend: Normal Lumbar R Rotation: Minimal limitation, End range pain Lumbar L Rotation: Normal (stretching pain on the R) Spine Joint Mobility Spine Joint Mobility : Lumbar/Thoracic Joint Mobility - L1: WNL Joint Mobility - L2: WNL Joint Mobility - L3: WNL Joint Mobility - L4: Hypomobile Joint Mobility - L5: Hypomobile (Increased familiar pain) LE Strength R Hip Flexion (L2): 4/5 R Hip ABduction: 3/5 R Hip External Rotation: 3+/5 L Hip Flexion (L2): 4+/5 L Hip ABduction: 3+/5 Special Tests - Hip and Spine Hip and Spine Special Tests: SI Palpation Tests, SI Cluster Tests SI Distraction Test: Right Positive SI Compression Test: Right Positive Sacral Thrust: Right Negative Education: Education Learning Preferences: Demonstration, Explanation, Performance, Printed Materials Barriers: None Learning/educational needs: Home exercise program, Plan of Care, Changes in Plan of Care Education Provided: Yes, see treatment interventions for education provided Education Provided To: Sade (more content not included)...[facility]09-05-2024 NoteHNO ID: [id number] Author: ?, ?, ? Service: ? Author Type: ? Type: Progress Notes Filed: 12/24/2023 09:49 Note Text: POPULATION HEALTH NAVIGATION OUTREACH Action/[facility] Support: Called pt to schedule an appt in Pain Management. Lvm for pt to call [phone]. Reason for Outreach Care Gap/HCC or Scheduling Wellness Visits Care Gaps due: N/A Patient Contacted: Unable or unnecessary to reach patient: Left message GOVECS message sent Navigation Signature: Iain Walker December 24, 2023 9:48 [facility]09-05-2024 History of Present illness Narrative* Iain Walker - 12/24/2023 9:48 AM EDT POPULATION HEALTH NAVIGATION OUTREACH Action/[facility] Support: Called pt to schedule an appt in Pain Management. Lvm for pt to call [phone]. Reason for Outreach Care Gap/HCC or Scheduling Wellness Visits Care Gaps due: N/A Patient Contacted: Unable or unnecessary to reach patient: Left message GOVECS message sent Navigation Signature: Iain Walker December 24, 2023 9:48 AM documented in [facility] encounter[facility] NotePatient Outreach (NETNAV) LILLIAN VELAZQUEZ ([id number]) 1955 F Date Time Provider Department 12/24/23 NO PCP NETNAV During your visit today, we recorded the following information about you: Iain Walker 12/24/2023 9:49 AM Signed POPULATION HEALTH NAVIGATION OUTREACH Action/[facility] Support: Called pt to schedule an appt in Pain Management. Lvm for pt to call [phone]. Reason for Outreach Care Gap/HCC or Scheduling Wellness Visits Care Gaps due: N/A Patient Contacted: Unable or unnecessary to reach patient: Left message GOVECS message sent Navigation Signature: Iain Walker December 24, 2023 9:48 AM Allergies As of Date: 12/24/2023 Noted Allergy Reaction AUGMENTIN (AMOXICILLIN-POT CLAVUL*11/01/2021 8 - GI Upset Date Reviewed: 11/19/2023 Reviewed by: New Renee LPN - Fully Assessed Prescriptions as of 12/24/2023 - gabapentin (NEURONTIN) 300 mg capsule Take 1 capsule by mouth two times a day for 180 days. - dicyclomine (BENTYL) 10 mg capsule Take 1 capsule by mouth before meals and at bedtime. - traZODone (DESYREL) 150 mg tablet Take 1 tablet by mouth daily at bedtime. - busPIRone (BUSPAR) 5 mg tablet Take 1 tablet by mouth three times a day as needed. PRN - levothyroxine (SYNTHROID) 88 mcg tablet Take 1 tablet by mouth daily before breakfast. Take one tablet daily before breakfast - losartan (COZAAR) 25 mg tablet Take 1 tablet by mouth once daily. Take one tablet daily - pravastatin (PRAVACHOL) 20 mg tablet Take 1 tablet by mouth daily at bedtime. - betamethasone dipropionate (DIPROSONE) 0.05 % cream Apply to affected area twice daily. Problem List As Of Date 12/24/2023 Noted Resolved Primary insomnia [F51.01] 11/01/2021 Postoperative hypothyroidism [E89.0] 11/01/2021 Hypertension, essential [I10] 11/01/2021 RLS (restless legs syndrome) [G25.81] 11/01/2021 History of COVID-19 [Z86.16] 11/01/2021 Elevated blood sugar [R73.9] 11/19/2021 Positive ESTELLA (antinuclear antibody) [R76.8] 11/21/2021 Left upper extremity numbness [R20.0] 12/18/2021 Left hand pain [M79.642] 12/18/2021 Left arm pain [M79.602] 12/18/2021 Left hand weakness [R29.898] 12/18/2021 Cervical arthritis [M47.812] 01/01/2022 02/17/2022 Numbness and tingling in left arm [R20.0, R20.2]01/01/2022 02/17/2022 Pain of left upper extremity [M79.602] 01/01/2022 02/17/2022 Lumbar back pain [M54.50] 05/21/2022 Encounter for Medicare annual wellness exam [Z0*06/19/2022 Special screening for malignant neoplasms, colo*06/19/2022 Fall (on) (from) unspecified stairs and steps, *08/29/2022 Hyperlipidemia, mixed [E78.2] 12/24/2022 Advance directive discussed with patient [Z71.8*07/23/2023 Osteopenia, senile [M85.80] 08/26/2023 Spondylosis of lumbar region without myelopathy*12/23/2023 Encounter Status:Closed by IAIN WALKER on 12/24/23[facility]-04[facility] Telephone encounter Note* Telephone Encounter - Remy Perez MD - 12/23/2023 7:44 PM EDT The following approved medication requests have been transmitted electronically. Requested Prescriptions Signed Prescriptions Disp Refills gabapentin (NEURONTIN) 300 mg capsule 180 capsule 1 Sig: Take 1 capsule by mouth two times a day for 180 days. Authorizing Provider: REMY PEREZ MD [facility]09-04-2024 Miscellaneous Notes* Telephone Encounter - Remy Perez MD - 12/23/2023 7:44 PM EDT The following approved medication requests have been transmitted electronically. Requested Prescriptions Signed Prescriptions Disp Refills gabapentin (NEURONTIN) 300 mg capsule 180 capsule 1 Sig: Take 1 capsule by mouth two times a day for 180 days. Authorizing Provider: REMY PEREZ MD * Telephone Encounter - Yinka Messina LPN - 12/23/2023 4:50 PM EDT Prescription Refill Information The patient has been identified by name and date of : Yes Caregiver verified no other encounters exist for this prescription request: Yes Caregiver confirmed with patient/requestor that no other refills are due, in the near future, with this provider at this time: Yes The last office visit in the department: 11/19/23 Does the patient have a future office visit with this provider/department: Yes, 01/28/24 Requested Prescriptions Pending Prescriptions Disp Refills gabapentin (NEURONTIN) 300 mg capsule 180 capsule 1 Sig: Take 1 capsule by mouth two times a day for 180 days. Yinka Messina LPN December 23, 2023 4:50 PM documented in this encounterK[facility]09-[facility] Telephone encounter Note * Telephone Encounter - Yinka Messina LPN - 12/23/2023 4:50 PM EDT Prescription Refill Information The patient has been identified by name and date of : Yes Caregiver verified no other encounters exist for this prescription request: Yes Caregiver confirmed with patient/requestor that no other refills are due, in the near future, with this provider at this time: Yes The last office visit in the department: 11/19/23 Does the patient have a future office visit with this provider/department: Yes, 01/28/24 Requested Prescriptions Pending Prescriptions Disp Refills gabapentin (NEURONTIN) 300 mg capsule 180 capsule 1 Sig: Take 1 capsule by mouth two times a day for 180 days. Yinka Messina LPN December 23, 2023 4:50 PM [facility]09-04-2024 Telephone encounter Note* Telephone Encounter - Remy Perez MD - 12/23/2023 4:42 PM EDT Consult orders placed for pain management and PHYSICAL THERAPY. [facility]09-04-2024 Miscellaneous Notes* Telephone Encounter - Remy Perez MD - 12/23/2023 4:42 PM EDT Consult orders placed for pain management and PHYSICAL THERAPY. documented in this encounterK[facility]09-[facility] Telephone encounter Note * Telephone Encounter - New Renee LPN - 12/22/2023 7:07 AM EDT Sent pt result note via pt's request through My Chart. See My Chart Message. New Renee LPN [facility]09-03-2024 Miscellaneous Notes* Telephone Encounter - New Renee LPN - 12/22/2023 7:07 AM EDT Sent pt result note via pt's request through My Chart. See My Chart Message. New Renee LPN * Telephone Encounter - New Renee LPN - 12/17/2023 11:43 AM EDT Left message for pt to contact office. New Renee LPN * Telephone Encounter - Aziza Thompson PA-C - 12/17/2023 10:43 AM EDT Let patient know that her mri of spine was overall normal. Mild arthritic changes. I'd recommend having her do dedicated Physical Therapy for her back if she is willing. Aziza Thompson PA-C documented in this encounterK[facility]08-29-[facility]24 Telephone encounter Note * Telephone Encounter - New Renee LPN - 12/17/2023 11:43 AM EDT Left message for pt to contact office. New Renee LPN [facility]08-29-2024 Telephone encounter Note* Telephone Encounter - Aziza Thompson PA-C - 12/17/2023 10:43 AM EDT Let patient know that her mri of spine was overall normal. Mild arthritic changes. I'd recommend having her do dedicated Physical Therapy for her back if she is willing. Aziza Thompson PA-C [facility]08-29-2024 History of Present illness Narrative* Cyndie Damon RT(R) - 12/17/2023 8:40 AM EDT Radiology Service Progress Note PATIENT NAME: Lillian Velazquez DATE OF SERVICE: December 17, 2023 TIME: 8:43 AM PATIENT IDENTITY VERIFICATION COMPLETED USING TWO (2) IDENTIFIERS: Name and Date of confirmedby patient verbally. FALL SCREENING: Has the patient had 2 falls in the last year or 1 fall with injury or currently using an Ambulatory Assistive Device (Walker, Cane, Wheelchair, Crutches, etc.)? No PATIENT GENDER DATA: Female. status: : No status: NO. PATIENT RELEVANT IMPLANT DATA REVIEWED: Yes PATIENT PRESENTS WITH AN IMPLANTABLE OR ATTACHED CORRESPONDENCE REVIEW CLERK: No RADIOLOGY DEPARTMENT: MR; Exam(s) Completed: Spine: Lumbar spine PERIPHERAL IV DATA: Not applicable SIGNED BY: COLE Hernandez) December 17, 2023 8:43 AM documented in this encounterK[facility]08-29-2024 NoteHNO ID: [id number] Author: CYDNIE DAMON RT(R) Service: ? Author Type: Technologist Type: Progress Notes Filed: 12/17/2023 08:44 Note Text: Radiology Service Progress Note PATIENT NAME: Lillian Velazquez DATE OF SERVICE: December 17, 2023 TIME: 8:43 AM PATIENT IDENTITY VERIFICATION COMPLETED USING TWO (2) IDENTIFIERS: Name and Date of confirmed by patient verbally. FALL SCREENING: Has the patient had 2 falls in the last year or 1 fall with injury or currently using an Ambulatory Assistive Device (Walker, Cane, Wheelchair, Crutches, etc.)? No PATIENT GENDER DATA: Female. status: : No status: NO. PATIENT RELEVANT IMPLANT DATA REVIEWED: Yes PATIENT PRESENTS WITH AN IMPLANTABLE OR ATTACHED CORRESPONDENCE REVIEW CLERK: No RADIOLOGY DEPARTMENT: MR; Exam(s) Completed: Spine: Lumbar spine PERIPHERAL IV DATA: Not applicable SIGNED BY: RT David(R) December 17, 2023 8:43 [facility]08-01-2024 NoteHNO ID: [id number] Author: AZIZA THOMPSON PA-C Service: ? Author Type: Physician Clin Tech Type: Progress Notes Filed: 11/19/2023 15:39 Note Text: Chief Complaint Patient presents with: Back Pain: On going has been getting worse HPI Lillian Velazquez is a 67 year old female who presents here today for chronic back pain. Patient states she has always had some low back pain but since her fall/injury in june of 2022, she feels like things has been worse. She fell down flight of stairs. Xrays showed mild arthritis. No fractures. Did do therapy. Reports that this spring and summer has been miserable. States that pretty much any activity will cause pain. Even simple movements like twisting to grab something will cause a sharp stabbing pain. Pain feels like it is center and radiates out to right side. No n/t but does get radiating pain into the buttocks/thigh and down into knee. Past medical history, appointments, medications, allergies reviewed. Previous Medical History PAST MEDICAL HISTORY 11/19/2021: Elevated blood sugar 11/01/2021: History of COVID-19 Comment: 10/11/2021 11/01/2021: Hypertension, essential 11/01/2021: Postoperative hypothyroidism Comment: Removed due to goiter. 11/01/2021: Primary insomnia 11/01/2021: RLS (restless legs syndrome) Comment: On gabapentin Previous Surgical History PAST SURGICAL HISTORY 01/22/2023: COLONOSCOPY Comment: repeat 5 years 1978: CYST/MOLE REMOVAL; Left Comment: benign cyst- Left breast 2018: PAST SURGICAL HISTORY OF Comment: cervical fusion 2017: PAST SURGICAL HISTORY OF Comment: right shoulder decompression No date: PAST SURGICAL HISTORY OF; Bilateral Comment: foot surgery 10/2018: THYROIDECTOMY Comment: due to goiter, no cancer No date: TONSILLECTOMY HX Comment: 8 yo Family History FAMILY HISTORY Problem Relation Age of Onset Cancer Mother Lung? other (a. fib) Father other (TIA) Father Hyperlipidemia Father Hypertension Father Hypertension Sister Stroke Maternal Grandmother Diabetes Maternal Grandmother Ischemic Heart Disease Maternal Grandfather Heart disease Maternal Grandfather Stroke Paternal Grandmother Heart Attack Paternal Grandfather Ovarian cancer Maternal Aunt Patient Allergies ALLERGIES Allergen Reactions Augmentin [Amoxicil* GI Upset Current Medications Current Outpatient Medications on File Prior to Visit Medication Sig traZODone (DESYREL) 150 mg tablet Take 1 tablet by mouth daily at bedtime. busPIRone (BUSPAR) 5 mg tablet Take 1 tablet by mouth three times a day as needed. PRN levothyroxine (SYNTHROID) 88 mcg tablet Take 1 tablet by mouth daily before breakfast. Take one tablet daily before breakfast losartan (COZAAR) 25 mg tablet Take 1 tablet by mouth once daily. Take one tablet daily pravastatin (PRAVACHOL) 20 mg tablet Take 1 tablet by mouth daily at bedtime. gabapentin (NEURONTIN) 300 mg capsule Take 1 capsule by mouth two times a day for 180 days. dicyclomine (BENTYL) 10 mg capsule Take 1 capsule by mouth before meals and at bedtime. betamethasone dipropionate (DIPROSONE) 0.05 % cream Apply to affected area twice daily. No current facility-administered medications on file prior to visit. Social History Social History Tobacco Use Smoking status: Never Smokeless tobacco: Never Vaping Use Vaping Use: Never used Substance Use Topics Alcohol use: Not Currently Comment: occasionally Drug use: Never Review of Symptoms REVIEW OF SYSTEMS See hpi EXAM: BP 106/76 (BP Site: Right Arm, BP Position: Sitting, BP Cuff Size: Regular Adult) Pulse 72 Temp 37.3 ?C (99.2 ?F) Resp 16 Wt 53.1 kg (117 lb) SpO2 95% BMI 20.86 kg/m? General Appearance: Well appearing, alert, in no acute distress, well-hydrated, well nourished.. Musculoskeletal: pain to palp of lumbar spine. Pain at SI joints. SLR negative. FROM. Neurologic: gait normal. Patella reflex decreased on R compared to L. Sensation intact. Health Maintenance List DTaP,Tdap,Td Vaccine(1 - Tdap) Never done Shingrix Vaccine(1 of 2) Never done RSV Vaccine(1 - 1-dose 60+ series) Never done Mammogram Screening due on 05/20/2024 Covid-19 Vaccine(4 - season) due on 07/22/2024 Influenza Vaccine(1) due on 12/20/2023 Depression Screening due on 07/22/2024 Anxiety Screening due on 07/22/2024 BP Controlled (<130/80) due on 07/22/2024 Annual PCP Team Chronic Disease Visit due on 08/25/2024 Diabetes Screening due on 08/02/2026 Colorectal Cancer Screening due on 01/23/2028 Lipid Screening due on 07/23/2028 Bone Density Screening Completed Advance Directive Discussion Completed Pneumococcal Vaccine: 65+ Completed Cervical Cancer Screening Discontinued Hepatitis C Screening Discontinued Data reviewed ASSESSMENT/PLAN: 1. Radiculopathy of lumbar region - ICD9: 724.4, ICD10: M54.16 (primary diagnosis) Chronic low back pain - MRI- see orders - MRI SAM (more content not included)...[facility]08-01-2024 History of Present illness Narrative* Aziza Thompson PA-C - 11/19/2023 3:18 PM EDT Chief Complaint Patient presents with: Back Pain: On going has been getting worse HPI Lillian Velazquez is a 67 year old female who presents here today for chronic back pain. Patient states she has always had some low back pain but since her fall/injury in june of 2022, she feels like things has been worse. She fell down flight of stairs. Xrays showed mild arthritis. No fractures. Did do therapy. Reports that this spring and summer has been miserable. States that pretty much any activity will cause pain. Even simple movements like twisting to grab something will cause a sharp stabbing pain. Pain feels like it is center and radiates out to right side. No n/t but does get radiating pain into the buttocks/thigh and down into knee. Past medical history, appointments, medications, allergies reviewed. Previous Medical History PAST MEDICAL HISTORY 11/19/2021: Elevated blood sugar 11/01/2021: History of COVID-19 Comment: 10/11/2021 11/01/2021: Hypertension, essential 11/01/2021: Postoperative hypothyroidism Comment: Removed due to goiter. 11/01/2021: Primary insomnia 11/01/2021: RLS (restless legs syndrome) Comment: On gabapentin Previous Surgical History PAST SURGICAL HISTORY 01/22/2023: COLONOSCOPY Comment: repeat 5 years 1977: CYST/MOLE REMOVAL; Left Comment: benign cyst- Left breast 2018: PAST SURGICAL HISTORY OF Comment: cervical fusion 2017: PAST SURGICAL HISTORY OF Comment: right shoulder decompression No date: PAST SURGICAL HISTORY OF; Bilateral Comment: foot surgery 10/2018: THYROIDECTOMY Comment: due to goiter, no cancer No date: TONSILLECTOMY HX Comment: 8 yo Family History FAMILY HISTORY Problem Relation Age of Onset Cancer Mother Lung? other (a. fib) Father other (TIA) Father Hyperlipidemia Father Hypertension Father Hypertension Sister Stroke Maternal Grandmother Diabetes Maternal Grandmother Ischemic Heart Disease Maternal Grandfather Heart disease Maternal Grandfather Stroke Paternal Grandmother Heart Attack Paternal Grandfather Ovarian cancer Maternal Aunt Patient Allergies ALLERGIES Allergen Reactions Augmentin [Amoxicil* GI Upset Current Medications Current Outpatient Medications on File Prior to Visit Medication Sig traZODone (DESYREL) 150 mg tablet Take 1 tablet by mouth daily at bedtime. busPIRone (BUSPAR) 5 mg tablet Take 1 tablet by mouth three times a day as needed. PRN levothyroxine (SYNTHROID) 88 mcg tablet Take 1 tablet by mouth daily before breakfast. Take one tablet daily before breakfast losartan (COZAAR) 25 mg tablet Take 1 tablet by mouth once daily. Take one tablet daily pravastatin (PRAVACHOL) 20 mg tablet Take 1 tablet by mouth daily at bedtime. gabapentin (NEURONTIN) 300 mg capsule Take 1 capsule by mouth two times a day for 180 days. dicyclomine (BENTYL) 10 mg capsule Take 1 capsule by mouth before meals and at bedtime. betamethasone dipropionate (DIPROSONE) 0.05 % cream Apply to affected area twice daily. No current facility-administered medications on file prior to visit. Social History Social History Tobacco Use Smoking status: Never Smokeless tobacco: Never Vaping Use Vaping Use: Never used Substance Use Topics Alcohol use: Not Currently Comment: occasionally Drug use: Never Review of Symptoms REVIEW OF SYSTEMS See hpi EXAM: BP 106/76 (BP Site: Right Arm, BP Position: Sitting, BP Cuff Size: Regular Adult) Pulse 72 Temp37.3 C (99.2 F) Resp 16 Wt 53.1 kg (117 lb) SpO2 95% BMI 20.86 kg/m General Appearance: Well appearing, alert, in no acute distress, well-hydrated, well nourished.. Musculoskeletal: pain to palp of lumbar spine. Pain at SI joints. SLR negative. FROM. Neurologic: gait normal. Patella reflex decreased on R compared to L. Sensation intact. Health Maintenance List DTaP,Tdap,Td Vaccine(1 - Tdap) Never done Shingrix Vaccine(1 of 2) Never done RSV Vaccine(1 - 1-dose 60+ series) Never done Mammogram Screening due on 05/20/2024 Covid-19 Vaccine( - season) due on 07/22/2024 Influenza Vaccine(1) due on 12/20/2023 Depression Screening due on 07/22/2024 Anxiety Screening due on 07/22/2024 BP Controlled (<130/80) due on 07/22/2024 Annual PCP Team Chronic Disease Visit due on 08/25/2024 Diabetes Screening due on 08/02/2026 Colorectal Cancer Screening due on 01/23/2028 Lipid Screening due on 07/23/2028 Bone Density Screening Completed Advance Directive Discussion Completed Pneumococcal Vaccine: 65+ Completed Cervical Cancer Screening Discontinued Hepatitis C Screening Discontinued Data reviewed ASSESSMENT/PLAN: 1. Radiculopathy of lumbar region - ICD9: 724.4, ICD10: M54.16 (primary diagnosis) Chronic low back pain - MRI- see orders - MRI LUMBAR SPINE WO IVCON 2. Chronic midline low back pain without sciatica - ICD9: 724.2, 338.29, ICD10: M54.50, G89.29 As above - MRI LUMBAR SPINE WO IVCON 3. Decreased reflex - ICD9: 796.1, ICD10: R29.2 As above - MRI LUMBAR SPINE WO IVCON Aziza Thompson PA-C documented in [facility] encounter[facility] Telephone encounter Note * Telephone Encounter - Joslyn Dunne MA - 11/12/2023 8:50 AM EDT Prescription Refill Information The patient has been identified by name and date of : Yes Caregiver verified no other encounters exist for this prescription request: Yes Caregiver confirmed with patient/requestor that no other refills are due, in the near future, with this provider at this time: No The last office visit in the department: 08/26/23 Distance Visit Does the patient have a future office visit with this provider/department: Yes 11/16/23 Requested Prescriptions Pending Prescriptions Disp Refills traZODone (DESYREL) 150 mg tablet 90 tablet 1 Sig: Take 1 tablet by mouth daily at bedtime. Joslyn Dunne MA November 12, 2023 8:50 AM [facility]07-25-2024 Miscellaneous Notes* Telephone Encounter - Joslyn Dunne MA - 11/12/2023 8:50 AM EDT Prescription Refill Information The patient has been identified by name and date of : Yes Caregiver verified no other encounters exist for this prescription request: Yes Caregiver confirmed with patient/requestor that no other refills are due, in the near future, with this provider at this time: No The last office visit in the department: 08/26/23 Distance Visit Does the patient have a future office visit with this provider/department: Yes 11/16/23 Requested Prescriptions Pending Prescriptions Disp Refills traZODone (DESYREL) 150 mg tablet 90 tablet 1 Sig: Take 1 tablet by mouth daily at bedtime. Joslyn Dunne MA November 12, 2023 8:50 AM documented in this encounterK[facility] Telephone encounter Note * Telephone Encounter - Joslyn Dunne MA - 11/12/2023 8:47 AM EDT Prescription Refill Information The patient has been identified by name and date of : Yes Caregiver verified no other encounters exist for this prescription request: Yes Caregiver confirmed with patient/requestor that no other refills are due, in the near future, with this provider at this time: no The last office visit in the department: 08/26/23 Distance Visit Does the patient have a future office visit with this provider/department: Yes 11/16/23 Requested Prescriptions Pending Prescriptions Disp Refills busPIRone (BUSPAR) 5 mg tablet 90 tablet 0 Sig: Take 1 tablet by mouth three times a day. Joslyn Dunne MA November 12, 2023 8:47 AM [facility]07-25-2024 Miscellaneous Notes* Telephone Encounter - Joslyn Dunne MA - 11/12/2023 8:47 AM EDT Prescription Refill Information The patient has been identified by name and date of : Yes Caregiver verified no other encounters exist for this prescription request: Yes Caregiver confirmed with patient/requestor that no other refills are due, in the near future, with this provider at this time: no The last office visit in the department: 08/26/23 Distance Visit Does the patient have a future office visit with this provider/department: Yes 11/16/23 Requested Prescriptions Pending Prescriptions Disp Refills busPIRone (BUSPAR) 5 mg tablet 90 tablet 0 Sig: Take 1 tablet by mouth three times a day. Joslyn Dunne MA November 12, 2023 8:47 AM documented in this [facility] History of Present illness Narrative* Aziza Thompson PA-C - 08/26/2023 1:14 PM EDT DISTANCE HEALTH VISIT MyChart Zoom Video Visit was used for evaluation of this patient. Patient consents to visit. Patient's location: [place] I have communicated my name and active licensure. The patient's identity and physical location wereverified at the time of this visit. Either the patient or their legal independent sales representative has been informed of the risks and benefits of -- and alternatives to -- treatment through a remote evaluation andconsents to proceed with the evaluation remotely. Chief Complaint No chief complaint on file. VANIA Velazquez is a 67 year old female who presents here today via virtual for discussion on test results. Patient recently had bone density test that showed osteopenia bordering on osteoporosis. No other concerns. Past medical history, appointments, medications, allergies reviewed. 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 Primary insomnia 11/01/2021 RLS (restless legs syndrome) 11/01/2021 On gabapentin Previous Surgical History PAST SURGICAL HISTORY Procedure Laterality Date COLONOSCOPY 01/22/2023 repeat 5 years CYST/MOLE REMOVAL Left 1977 benign cyst- Left breast PAST SURGICAL HISTORY OF 2018 cervical fusion PAST SURGICAL HISTORY OF 2017 right shoulder decompression PAST SURGICAL HISTORY OF Bilateral foot surgery THYROIDECTOMY 10/2018 due to goiter, no cancer TONSILLECTOMY HX 8 yo Family History FAMILY HISTORY Problem Relation Age of Onset Cancer Mother Lung? other (a. fib) Father other (TIA) Father Hyperlipidemia Father Hypertension Father Hypertension Sister Stroke Maternal Grandmother Diabetes Maternal Grandmother Ischemic Heart Disease Maternal Grandfather Heart disease Maternal Grandfather Stroke Paternal Grandmother Heart Attack Paternal Grandfather Ovarian cancer Maternal Aunt Patient Allergies ALLERGIES Allergen Reactions Augmentin [Amoxicil* GI Upset Current Medications Current Outpatient Medications on File Prior to Visit Medication Sig levothyroxine (SYNTHROID) 88 mcg tablet Take 1 tablet by mouth daily before breakfast. Take one tablet daily before breakfast losartan (COZAAR) 25 mg tablet Take 1 tablet by mouth once daily. Take one tablet daily pravastatin (PRAVACHOL) 20 mg tablet Take 1 tablet by mouth daily at bedtime. gabapentin (NEURONTIN) 300 mg capsule Take 1 capsule by mouth two times a day for 180 days. busPIRone (BUSPAR) 5 mg tablet Take 1 tablet by mouth three times a day. (Patient taking differently: Take 5 mg by mouth three times a day. PRN) traZODone (DESYREL) 150 mg tablet Take 1 tablet by mouth daily at bedtime. dicyclomine (BENTYL) 10 mg capsule Take 1 capsule by mouth before meals and at bedtime. betamethasone dipropionate (DIPROSONE) 0.05 % cream Apply to affected area twice daily. No current facility-administered medications on file prior to visit. Social History Social History Tobacco Use Smoking status: Never Smokeless tobacco: Never Vaping Use Vaping Use: Never used Substance Use Topics Alcohol use: Not Currently Comment: occasionally Drug use: Never Review of Symptoms REVIEW OF SYSTEMS GENERAL: No weight loss, malaise or fevers EXAM: There were no vitals taken for this visit. Any vital signs collected today were done so using patient's home equipment, otherwise no vital signs due to distant health visit. PHYSICAL EXAMINATION: VIDEO EXAM: (if done, performed via video enabled technology) GENERAL: alert and appropriate, in no distress, well-hydrated, well nourished, and happy, smiling, interactive Health Maintenance List DTaP,Tdap,Td Vaccine(1 - Tdap) Never done Shingrix Vaccine(1 of 2) Never done RSV Vaccine(1 - 1-dose 60+ series) Never done Covid-19 Vaccine(2022- season) due on 07/22/2024 Mammogram Screening due on 05/20/2024 Annual PCP Team Chronic Disease Visit due on 07/22/2024 BP Controlled (<130/80) due on 07/22/2024 Diabetes Screening due on 08/02/2026 Colorectal Cancer Screening due on 01/23/2028 Lipid Screening due on 07/23/2028 Bone Density Screening Completed Influenza Vaccine Completed Advance Directive Discussion Completed Behavioral Health Screening Completed Pneumococcal Vaccine: 65+ Completed Pap Testing Discontinued Hepatitis C Screening Discontinued Data reviewed DXA results Lumbar spine (L1, L2, L3, L4): 0.856 g/cm2, T-score -1.7, Z-score 0.1 Right Femoral Neck: 0.603 g/cm2, T-score -2.2, Z-score -0.6 Right Total Hip: 0.804 g/cm2, T-score -1.1, Z-score 0.2 Left Femoral Neck: 0.582 g/cm2, T-score -2.4, Z-score -0.8 Left Total Hip: 0.823 g/cm2, T-score -1.0, Z-score 0.3 FRACTURE RISK (Based on TBS adjusted FRAX): 10-year absolute fracture risk: - major osteoporotic fracture = 11 % - hip fracture = 2 % TRABECULAR BONE ASSESSMENT TBS score: 1.285 ASSESSMENT/PLAN: 1. Osteopenia, senile - ICD9: 733.90, ICD10: M85.80 - Reviewed the need for Calcium and Vitamin D supplements and weight bearing exercise as tolerated -discussed options. Given that patient's scores are almost at osteoporosis level, we could considerfosamax. Patient will continue to consider and will contact me with her decision - either way, repeat in 2 years. Aziza Thompson PA-C documented in this encounterK[facility]04-30-[facility] Telephone encounter Note * Telephone Encounter - Aniyah Washburn LPN - 08/18/2023 8:54 AM EDT Pt was given options & states she is not sure she wants to start medication just yet, she wouldlike to discuss with provider. VV scheduled for 08/26/23 to discuss per pt's request. Aniyah Washburn LPN [facility]04-30-2024 Miscellaneous Notes* Telephone Encounter - Aniyah Washburn LPN - 08/18/2023 8:54 AM EDT Pt was given options & states she is not sure she wants to start medication just yet, she wouldlike to discuss with provider. VV scheduled for 08/26/23 to discuss per pt's request. Aniyah Washburn LPN * Telephone Encounter - Aziza Thompson PA-C - 08/17/2023 1:48 PM EDT Let patient know that Bone density scan shows osteopenia with a T-score in left hip at -2.4. -2.5 is considered osteoporosis. We have the option to monitor this and recheck in 2 years. However, I recommend we start an medication to start treating this. Fosamax once a week. Which does she prefer? Can schedule a VV to discuss options if she prefers or has questions. Aziza Thompson PA-C documented in this encounterK[facility]04-29-[facility] Telephone encounter Note * Telephone Encounter - Aziza Thompson PA-C - 08/17/2023 1:48 PM EDT Let patient know that Bone density scan shows osteopenia with a T-score in left hip at -2.4. -2.5 is considered osteoporosis. We have the option to monitor this and recheck in 2 years. However, I recommend we start an medication to start treating this. Fosamax once a week. Which does she prefer? Can schedule a VV to discuss options if she prefers or has questions. Aziza Thompson PA-C [facility]04-26-[facility] History of Present illness Narrative* Nura Rodriguez RT(Rea) - 08/14/2023 2:15 PM EDT Radiology Service Progress Note PATIENT NAME: Lillian Velazquez DATE OF SERVICE: August 14, 2023 TIME: 2:02 PM PATIENT IDENTITY VERIFICATION COMPLETED USING TWO (2) IDENTIFIERS: Name and Date of confirmedby patient verbally. FALL SCREENING: Has the patient had 2 falls in the last year or 1 fall with injury or currently using an Ambulatory Assistive Device (Walker, Cane, Wheelchair, Crutches, etc.)? No PATIENT GENDER DATA: Female. status: : No status: NO. PATIENT RELEVANT IMPLANT DATA REVIEWED: Not Applicable PATIENT PRESENTS WITH AN IMPLANTABLE OR ATTACHED CORRESPONDENCE REVIEW CLERK: No RADIOLOGY DEPARTMENT: Bone Density PERIPHERAL IV DATA: Not applicable SIGNED BY: RT Jewell(Rea) August 14, 2023 2:02 PM documented in this encounterHigginsville [id number] Miscellaneous Notes* Telephone Encounter - Aniyah Washburn LPN - 08/07/2023 8:43 AM EDT Pt requested a refill for pravastatin however she has a prescription at [facility]. Pt notified via Ope[employer]. Aniyah Washburn LPN documented in this [facility]04[facility] Miscellaneous Notes* Telephone Encounter - Kelly Coley LPN - 08/07/2023 8:29 AM EDT Patient has been identified by name and date of : Yes Requested Prescriptions Pending Prescriptions Disp Refills levothyroxine (SYNTHROID) 88 mcg tablet 90 tablet 1 Sig: Take 1 tablet by mouth daily before breakfast. Take one tablet daily before breakfast losartan (COZAAR) 25 mg tablet 90 tablet 1 Sig: Take 1 tablet by mouth once daily. Take one tablet daily RX INSTRUCTIONS: Patient aware RX will be sent to pharmacy. No need to notify patient. WESLY 07/23/23 Medicare wellness Scheduled 01/28/24 Kelly Coley LPN documented in this [facility]04[facility] Miscellaneous Notes* Telephone Encounter - Aniyah Washburn LPN - 08/04/2023 8:54 AM EDT Results left on pt's voice mail that identifies her by her full name. Aniyah Washburn LPN * Telephone Encounter - Aziza Thompson PA-C - 08/04/2023 8:09 AM EDT Labs are all normal. Repeat kidney function is much better. Aziza Thompson PA-C documented in this encounterK[facility]04-08-2024 Miscellaneous Notes* Telephone Encounter - Louise Red RN - 07/27/2023 11:01 AM EDT Pt called and is notified of providers results and instructions. Pt voices understanding. Louise Red RN * Telephone Encounter - Aziza Thompson PA-C - 07/27/2023 10:33 AM EDT If she had a lot of butter sauces with the shrimp, it is possible that it caused levels to go up some. We will just monitor. With age, our renal function tends to decline slightly. This happens in a lot of patients. It's notalways hereditary but can be. * Telephone Encounter - Juana Baum OCCA - 07/27/2023 10:24 AM EDT TC to patient who states she is taking medication consistently and is wanting to avoid taking a higher dose. Patient states [place] and is asking if this could have affected the results. Patient agreeable to repeat renal function labs. Asking that provider be made aware that her fatherhas had kidney problems most of his adult life and is asking if this could be hereditary. TAB [place] * Telephone Encounter - Aziza Thompson PA-C - 07/27/2023 10:02 AM EDT Let patient know that her labs show elevated cholesterol compared to last year. Did she stop her statin or take a break from it? If not, then we have 2 options. 1. We increase dose or 2. Keep dose the same and have her watch her diet better. Her renal function. Is slightly decreased. Let's recheck in a couple weeks. Hydrate well prior. documented in this encounterK[facility]04-[facility]-2024 Miscellaneous Notes* Telephone Encounter - Larissa Wakefield MA - 07/27/2023 10:57 AM EDT Please review pt message and advise. Larissa Wakefield MA documented in this encounterK[facility]04-04-2024 Instructions* Patient Instructions* Aziza Thompson PA-C - 07/23/2023 1:03 PM EDT [place] [facility] - Insurance Therapy/Counseling [facility] [address] [place] [address] [facility] [address] [place] [address] [employer] [address] [address] [facility] [address] [place] [address] Jaimee Simental [facility] [address] [place] [address] [facility], [facility]. [address], [place] [address] [employer] [address] [place] [address] [facility] [address] [place] [address] WHAT YOU CAN DO TO PREVENT FALLS Many falls can be prevented. By making some changes, you can lower your chances of falling. Four things YOU can do to prevent falls for you* and your caregiver 1. Begin a regular exercise program Exercise is one of the most important ways to lower your chances of falling. It makes you stronger and helps you feel better. Exercises that improve balance and coordination (like Jose Chi) are the most helpful. Lack of exercise leads to weakness and increases your chances of falling. Ask your doctor or health care provider about the best type of exercise program for you. 2. Have your health care provider review your medicines Have your doctor or pharmacist review all the medicines you take, even xiqy-phk-eufrqte medicines. As you get older, the way medicines work in your body can change. Some medicines, or combinations of medicines, can make you sleepy or dizzy andcan cause you to fall. 3. Have your vision checked Have your eyes checked by an eye doctor at least once a year. You may be wearing the wrong glasses or have a condition like glaucoma or cataracts that limits your vision. Poor vision can increase your chances of falling. 4. Make your home safer About half of all falls happen at home. To make your home safer: Remove things you can trip over (like papers, books, clothes, and shoes) from stairs and places where you walk. Remove small throw rugs or use double-sided tape to keep the rugs from slipping. Keep items you use often in cabinets you can reach easily without using a step stool. Have grab bars put in next to your toilet and in the tub or shower. Use non-slip mats in the bathtub and on shower floors. Improve the lighting in your home. As you get older, you need brighter lights to see well. Hang light-weight curtains or shades to reduce glare. Have handrails and lights put in on all staircases. Wear shoes both inside and outside the house. Avoid going barefoot or wearing slippers. For more information, contact: Centers for Disease Control and Prevention www.cdc.gov/injury * This information may not apply if you have certain medical conditions. BONE MINERAL DENSITY PATIENT INSTRUCTIONS Bone mineral density testing measures the amount of calcium in certain parts of your bones. This information determines how strong your bones are. The test is used to detect osteoporosis, a disease in which the bone's mineral content and density are low, increasing a person's risk of fractures. Thelumbar spine (lower back) and the hip are the skeletal sites usually examined. For the test, remember that: 1. You cannot take this test if you are . 2. Eat a normal diet on the day of the test. 3. Take your medications as you normally would. 4. DO NOT take calcium supplements (such as Tums) for 24 hours before the test. 5. On the day of the test, leave valuables (jewelry or credit cards) at home. 6. The test should be performed prior to oral, rectal or IV contrast studies, or at least 7 days after any of these studies. For the test, you may be asked to wear a hospital gown. You will lie on your back, on a padded table, in a comfortable position. Generally, you can resume your usual activities immediately. documented in this encounterK[facility]04-04-[facility] History of Present illness Narrative* Aziza Thompson PA-C - 07/23/2023 1:02 PM EDT Images from the original note were not included. Lillian Velazquez is a 67 year old female here for a Medicare wellness visit. Medicare Health Risk Assessment General Health Good Exercise: Minutes/Day 20min Exercise: Days/Week 4 Alcohol: Daily Use 2-3 times a week Alcohol: Drinks/Day 1 or 2 Alcohol: 6 or more drinks Never Feel off balance no Concerns: Teeth/Dentures no Concerns: Sexual function no Troubled by feelings Sometimes- family stress Frequency: Eating healthy diet yes ADLs requiring help no Safety precautions in home/vehicle yes Smoke, vape, chews tobacco no Difficulty hearing no Difficulty seeing no Current Providers Specialists: I have reviewed specialist-related care of the patient in the medical record. Medical/Family history review Reviewed and updated problem list, medical/surgical/family/social history, medications, and allergies. Opioid use review Opioid Medications (last 90 days) No data to display Depression screening Depression Screening PHQ-2 Score 07/23/2023 2 Depression screening tool completed and reviewed. Based on score and interview, patient is not at risk for depression. Screening tool discussed with patient, and I recommended no further interventionat this time. Cognitive screening Mini Cog Score: 5 Cognitive screening reviewed and no further action needed (score 3-5) Functional Observation Was the patient's Timed Up & Go test unsteady or ? 12 seconds? No Advance Care Planning Patient did not wish or was not able to name a surrogate decision maker or provide an advance care plan Measurements BP 112/84 Pulse 69 Temp (Src) 98.2 (Left Tympanic) Resp 16 Ht 5' 2.795 (1.60m) Wt 118 lb(53.5kg) SpO2 97% BMI 21.04 kg/(m^2). Vision Screening: Follows with optometry/ophthalmology Assessment/Plan Medicare annual wellness visit, subsequent (Z00.00) - Counseled on healthy diet and regular exercise - Fall avoidance information provided - Personalized prevention plan provided Chief Complaint Patient presents with: Medicare Wellness Exam HPI Lillian Velazquez is a 67 year old female who presents here today for extensive exam Patient with hx of HTN, hyperlipidemia, elevated blood sugar, hypothyroidism, RLS, insomnia and those as below. Over the past 2 weeks patient has been starting to note sinus pressure again. Some coughing. Has taken benadryl at night. Also uses flonase. Also is noticing more anxiety recently due to some family dynamics. Only taking buspar prn currently. May be interested in counseling. Past medical history, appointments, medications, allergies reviewed. 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 Primary insomnia 11/01/2021 RLS (restless legs syndrome) 11/01/2021 On gabapentin Previous Surgical History PAST SURGICAL HISTORY Procedure Laterality Date COLONOSCOPY 01/22/2023 repeat 5 years CYST/MOLE REMOVAL Left 1977 benign cyst- Left breast PAST SURGICAL HISTORY OF 2018 cervical fusion PAST SURGICAL HISTORY OF 2017 right shoulder decompression PAST SURGICAL HISTORY OF Bilateral foot surgery THYROIDECTOMY 10/2018 due to goiter, no cancer TONSILLECTOMY HX 8 yo Family History FAMILY HISTORY Problem Relation Age of Onset Cancer Mother Lung? other (a. fib) Father other (TIA) Father Hyperlipidemia Father Hypertension Father Hypertension Sister Stroke Maternal Grandmother Diabetes Maternal Grandmother Ischemic Heart Disease Maternal Grandfather Heart disease Maternal Grandfather Stroke Paternal Grandmother Heart Attack Paternal Grandfather Ovarian cancer Maternal Aunt Patient Allergies ALLERGIES Allergen Reactions Augmentin [Amoxicil* GI Upset Current Medications Current Outpatient Medications on File Prior to Visit Medication Sig pravastatin (PRAVACHOL) 20 mg tablet Take 1 tablet by mouth daily at bedtime. gabapentin (NEURONTIN) 300 mg capsule Take 1 capsule by mouth two times a day for 180 days. busPIRone (BUSPAR) 5 mg tablet Take 1 tablet by mouth three times a day. (Patient taking differently: Take 5 mg by mouth three times a day. PRN) levothyroxine (SYNTHROID) 88 mcg tablet Take 1 tablet by mouth daily before breakfast. Take one tablet daily before breakfast traZODone (DESYREL) 150 mg tablet Take 1 tablet by mouth daily at bedtime. losartan (COZAAR) 25 mg tablet Take 1 tablet by mouth once daily. Take one tablet daily dicyclomine (BENTYL) 10 mg capsule Take 1 capsule by mouth before meals and at bedtime. betamethasone dipropionate (DIPROSONE) 0.05 % cream Apply to affected area twice daily. No current facility-administered medications on file prior to visit. Social History Social History Tobacco Use Smoking status: Never Smokeless tobacco: Never Vaping Use Vaping Use: Never used Substance Use Topics Alcohol use: Not Currently Comment: occasionally Drug use: Never Review of Symptoms REVIEW OF SYSTEMS GENERAL: No weight loss, malaise or fevers HEENT: +sinus drainage for 1-2 weeks. No changes in hearing or vision, no nose bleeds or other nasal problems NECK: Negative for lumps, goiter, pain and significant neck swelling RESPIRATORY: Negative for cough, hemoptysis, wheezing, COPD, dyspnea or shortness of breath CARDIOVASCULAR: Negative for chest pain, leg swelling, CHF or palpitations GI: Negative for abdominal discomfort, blood in stools or black stools, change in bowel habit, heart burn, nausea, vomiting : No history of dysuria, frequency or incontinence MUSCULOSKELETAL: Negative for joint pain or swelling, back pain or muscle pain SKIN: Negative for lesions, rash, and itching PSYCH: See HPI HEMATOLOGY/LYMPHOLOGY: Negative for prolonged bleeding, bruising easily or swollen nodes ENDOCRINE: Negative for cold or heat intolerance, polyuria, polydipsia and goiter NEURO: No history of headaches, syncope, paralysis, seizures or tremors EXAM: BP 112/84 (BP Site: Left Arm, BP Position: Sitting, BP Cuff Size: Regular Adult) Pulse 69 Temp 36.8 C (98.2 F) (Left Tympanic) Resp 16 Ht 159.5 cm (5' 2.8) Wt 53.5 kg (118 lb) SpO2 97% BMI 21.04 kg/m General Appearance: Well appearing, alert, in no acute distress, well-hydrated, well nourished.. Skin: Skin color, texture, turgor normal, no suspicious rashes or lesions. Head: Normocephalic, no masses, lesions, tenderness or abnormalities. Eyes: Anicteric sclera. Pupils are equally round and reactive to light. Extraocular movements are intact. . Ears: External ears normal, canals clear, TMs pearly marks. Nose/Sinuses: Nares normal, septum midline, mucosa normal, no drainage or sinus tenderness. Oropharynx: Lips, mucosa, and tongue normal, teeth and gums normal, oropharynx normal. Neck: Supple, no adenopathy; thyroid symmetric, normal size, no bruits. Lungs: Lungs clear to auscultation. No wheezing, rhonchi, rales.. Heart: RRR without murmur, gallop, or rubs. No ectopy. Abdomen: Normal abdominal exam, Abdomen soft, non-tender. Bowel sounds normal. No masses, organomegaly. Extremities: No deformities, edema, skin discoloration, clubbing or cyanosis. Good capillary refill. . Peripheral Pulses: Normal. Neurologic: Gait normal. Reflexes normal and symmetric. Sensation grossly intact.. Health Maintenance List DTaP,Tdap,Td Vaccine(1 - Tdap) Never done Shingrix Vaccine(1 of 2) Never done RSV Vaccine(1 - 1-dose 60+ series) Never done Bone Density Screening Never done Advance Directive Discussion due on 04/20/2023 Behavioral Health Screening Never done BP Controlled (<130/80) due on 06/20/2023 Covid-19 Vaccine( season) due on 07/22/2024 Mammogram Screening due on 05/20/2024 Annual PCP Team Chronic Disease Visit due on 07/02/2024 Diabetes Screening due on 12/24/2025 Lipid Screening due on 12/25/2027 Colorectal Cancer Screening due on 01/23/2028 Influenza Vaccine Completed Pneumococcal Vaccine: 65+ Completed Pap Testing Discontinued Hepatitis C Screening Discontinued Data reviewed ASSESSMENT/PLAN: 1. Encounter for Medicare annual wellness exam - ICD9: V70.0, ICD10: Z00.00 (primary diagnosis) - Counseled on healthy diet and regular exercise - Calcium intake with supplements or by diet of 1000 mg/day for under 50, 1200- 1500 mg/day for 50+ - Bone mineral density ordered - discussed routine vaccines/ patient will check with insurance 2. Advance directive discussed with patient - ICD9: V65.49, ICD10: Z71.89 Papers given 3. Postoperative hypothyroidism - ICD9: 244.0, ICD10: E89.0 - Instructed patient on importance of taking on an empty stomach either first thing in the morning or at bedtime. - continue current dose of Synthroid - TSH BLD 4. Hyperlipidemia, mixed - ICD9: 272.2, ICD10: E78.2 - Control undetermined, due for labs - Counseled on healthy diet and regular exercise - LIPID PANEL, NONFASTING 5. Hypertension, essential - ICD9: 401.9, ICD10: I10 - Controlled - Continue current medications - Recommend home blood pressure monitoring, to bring results to next visit - Encouraged sodium restriction, DASH or Mediterranean diet - Recommend regular aerobic exercise - URINALYSIS, WITH MICROSCOPIC - COMP METABOLIC PANEL 6. Primary insomnia - ICD9: 307.42, ICD10: F51.01 stable 7. SHAYLA (generalized anxiety disorder) - ICD9: 300.02, ICD10: F41.1 Discussed taking buspar daily vs prn. Patient will check with insurance for coverage on counseling. - CONSULT TO PSYCHOLOGY 8. Asymptomatic postmenopausal status - ICD9: V49.81, ICD10: Z78.0 Set up bone density scan - DXA-AXIAL SKELETON - BD DXA TRABECULAR BONE SCORE (TBS) 9. RLS (restless legs syndrome) - ICD9: 333.94, ICD10: G25.81 stable 10. Elevated blood sugar - ICD9: 790.29, ICD10: R73.9 Await labs - HGB A1C 11. Rhinitis, unspecified type - ICD9: 472.0, ICD10: J31.0 Will have patient try zyrtec or claritin OTC If not improving, will set up with ENT Follow up in 6 months. Aziza Thompson PA-C I spent a total of 45 minutes on the date of the service which included preparing to see the patient, [id number] patient care, completing clinical documentation, obtaining and/or reviewing separately obtained history, performing a medically appropriate examination, and ordering medications, tests, or procedures. documented in this encounterK[facility]03-[facility] History of Present illness Narrative* Remy Perez MD - 07/03/2023 10:44 AM EDT Chief Complaint Patient presents with: Follow Up HPI Lillian Velazquez is a 67 year old female who presents here today for follow up on sinus. Patient was seen in the [facility] care 06/24/2023 and diagnosed with sinobronchitis. Was placed on cefadroxil 500 mg twice a day for 7 days and prednisone. Patient is feeling better. She was seen in the [facility] care on 04/08/2023 and placed on a z-pack. She had distance health on 04/19/2023 and placed on doxy for 7 days, then again had a distance [facility] on 06/11/2023 and treated with doxy twice a day for 10 days. Then seen 06/24/2023 as above. Patient currently feels better then after the last two courses of previous antibiotics (doxy) No more facial pressure. Cough is much less. No headache's or fevers. Just has clear rhinorrhea now. Patient is improving. Just finished her last predisone yesterday Past medical history, appointments, medications, allergies reviewed. 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 Primary insomnia 11/01/2021 RLS (restless legs syndrome) 11/01/2021 On gabapentin Previous Surgical History PAST SURGICAL HISTORY Procedure Laterality Date COLONOSCOPY 01/22/2023 repeat 5 years CYST/MOLE REMOVAL Left 1977 benign cyst- Left breast PAST SURGICAL HISTORY OF 2018 cervical fusion PAST SURGICAL HISTORY OF 2017 right shoulder decompression PAST SURGICAL HISTORY OF Bilateral foot surgery THYROIDECTOMY 10/2018 due to goiter, no cancer TONSILLECTOMY HX 8 yo Family History FAMILY HISTORY Problem Relation Age of Onset Cancer Mother Lung? other (a. fib) Father other (TIA) Father Hyperlipidemia Father Hypertension Father Hypertension Sister Stroke Maternal Grandmother Diabetes Maternal Grandmother Ischemic Heart Disease Maternal Grandfather Heart disease Maternal Grandfather Stroke Paternal Grandmother Heart Attack Paternal Grandfather Ovarian cancer Maternal Aunt Patient Allergies ALLERGIES Allergen Reactions Augmentin [Amoxicil* GI Upset Current Medications Current Outpatient Medications on File Prior to Visit Medication Sig pravastatin (PRAVACHOL) 20 mg tablet Take 1 tablet by mouth daily at bedtime. gabapentin (NEURONTIN) 300 mg capsule Take 1 capsule by mouth two times a day for 180 days. busPIRone (BUSPAR) 5 mg tablet Take 1 tablet by mouth three times a day. (Patient taking differently: Take 5 mg by mouth three times a day. PRN) levothyroxine (SYNTHROID) 88 mcg tablet Take 1 tablet by mouth daily before breakfast. Take one tablet daily before breakfast traZODone (DESYREL) 150 mg tablet Take 1 tablet by mouth daily at bedtime. losartan (COZAAR) 25 mg tablet Take 1 tablet by mouth once daily. Take one tablet daily dicyclomine (BENTYL) 10 mg capsule Take 1 capsule by mouth before meals and at bedtime. betamethasone dipropionate (DIPROSONE) 0.05 % cream Apply to affected area twice daily. predniSONE (DELTASONE) 10 mg tablet Take 4 tabs daily for 3 days, then 2 tabs daily for 3 days, then 1 tab daily for 3 days with food. (Patient not taking: Reported on 07/03/2023) No current facility-administered medications on file prior to visit. Social History Social History Tobacco Use Smoking status: Never Smokeless tobacco: Never Vaping Use Vaping Use: Never used Substance Use Topics Alcohol use: Not Currently Comment: occasionally Drug use: Never Review of Symptoms REVIEW OF SYSTEMS See HPI EXAM: BP 120/80 (BP Site: Right Arm, BP Position: Sitting, BP Cuff Size: Regular Adult) Pulse 66 Resp16 Wt 53.5 kg (118 lb) SpO2 98% BMI 21.58 kg/m General Appearance: Well appearing, alert, in no acute distress, well-hydrated, well nourished.. Ears: External ears normal, canals clear. Nose/Sinuses: Nares normal, septum midline, mucosa normal, no drainage or sinus tenderness. Oropharynx: Lips, mucosa, and tongue normal, teeth and gums normal, oropharynx normal. Neck: Supple, no adenopathy; thyroid symmetric, normal size, no bruits. Lungs: Lungs clear to auscultation. No wheezing, rhonchi, rales.. Heart: RRR without murmur, gallop, or rubs. No ectopy. Health Maintenance List DTaP,Tdap,Td Vaccine(1 - Tdap) Never done Shingrix Vaccine(1 of 2) Never done RSV Vaccine(1 - 1-dose 60+ series) Never done Bone Density Screening Never done Covid-19 Vaccine( season) due on 12/19/2022 Advance Directive Discussion due on 04/20/2023 Depression Assessment due on 04/20/2023 Mammogram Screening due on 05/20/2024 Annual PCP Team Chronic Disease Visit due on 06/11/2024 BP Controlled (<130/80) due on 06/23/2024 Diabetes Screening due on 12/24/2025 Lipid Screening due on 12/25/2027 Colorectal Cancer Screening due on 01/23/2028 Influenza Vaccine Completed Pneumococcal Vaccine: 65+ Completed Pap Testing Discontinued Hepatitis C Screening Discontinued Data reviewed A/P ASSESSMENT/PLAN: 1. Bacterial sinusitis - ICD9: 473.9, 041.9, ICD10: J32.9, B96.89 - patient to complete her current course of Tx and seems to have improved. If has a recurrence thenwould pursue an ENT eval. F/u next routine Remy Perez MD documented in this encounterK[facility]03-11-[facility] Miscellaneous Notes* Telephone Encounter - New Renee LPN - 06/29/2023 10:55 AM EDT Patient has been identified by name and date of : Yes, Provider Dr Perez Date 06/28/22 Time 11:12 am Patient phones for refill(s): Requested Prescriptions Pending Prescriptions Disp Refills pravastatin (PRAVACHOL) 20 mg tablet 90 tablet 1 Sig: Take 1 tablet by mouth daily at bedtime. gabapentin (NEURONTIN) 300 mg capsule 180 capsule 1 Sig: Take 1 capsule by mouth two times a day for 180 days. Date of last office visit in primary care: 12/24/2022 Date of next office visit in primary care: 07/03/2023 Please advise. Thank you. New Renee LPN. documented in this encounterK[facility]03-06-2024 Miscellaneous Notes* Telephone Encounter - Remy Perez MD - 06/24/2023 6:53 PM EST The following approved medication requests have been transmitted electronically. Requested Prescriptions Signed Prescriptions Disp Refills busPIRone (BUSPAR) 5 mg tablet 90 tablet 0 Sig: Take 1 tablet by mouth three times a day. Authorizing Provider: REMY PEREZ MD * Telephone Encounter - Yinka Messina LPN - 06/24/2023 6:07 PM EST Patient has been identified by name and date of : Yes Patient phones for refill(s): Requested Prescriptions Pending Prescriptions Disp Refills busPIRone (BUSPAR) 5 mg tablet 90 tablet 0 Sig: Take 1 tablet by mouth three times a day. Date of last office visit in primary care: 12/24/2022 Date of next office visit in primary care: 07/01/2023 Please advise. Thank you. Yinka Messina LPN. documented in this encounterK[facility]03-06-[facility] History of Present illness Narrative* Manuel Simpson APRN.INDUSTRIAL INSULATOR - 06/24/2023 2:30 PM EST Subjective HPI HPI Lillian Velazquez is a 67 year old female who presents today for CC of sinus pressure, cough. This started 2-3 weeks. Has tried otc medication and round of doxycycline. Symptoms are worsened by nothing. Risk factors hx of sinusitis. .Patient presents with: Pain, Sinus: Sinus pain and pressure, cough x 2 weeks PAST MEDICAL HISTORY Diagnosis Date Elevated blood sugar 11/19/2021 History of COVID-19 11/01/2021 10/11/2021 Hypertension, essential 11/01/2021 Postoperative hypothyroidism 11/01/2021 Removed due to goiter. Primary insomnia 11/01/2021 RLS (restless legs syndrome) 11/01/2021 On gabapentin PAST SURGICAL HISTORY Procedure Laterality Date COLONOSCOPY 01/22/2023 repeat 5 years CYST/MOLE REMOVAL Left 1978 benign cyst- Left breast PAST SURGICAL HISTORY OF 2018 cervical fusion PAST SURGICAL HISTORY OF 2017 right shoulder decompression PAST SURGICAL HISTORY OF Bilateral foot surgery THYROIDECTOMY 10/2018 due to goiter, no cancer TONSILLECTOMY HX 8 yo ALLERGIES Augmentin [Amoxicillin-Pot Clavulanate] MEDICATIONS levothyroxine (SYNTHROID) 88 mcg tablet Take 1 tablet by mouth daily before breakfast. Take one tablet daily before breakfast traZODone (DESYREL) 150 mg tablet Take 1 tablet by mouth daily at bedtime. losartan (COZAAR) 25 mg tablet Take 1 tablet by mouth once daily. Take one tablet daily dicyclomine (BENTYL) 10 mg capsule Take 1 capsule by mouth before meals and at bedtime. gabapentin (NEURONTIN) 300 mg capsule Take 1 capsule by mouth twice daily for 180 days. pravastatin (PRAVACHOL) 20 mg tablet Take 1 tablet by mouth daily at bedtime. busPIRone (BUSPAR) 5 mg tablet Take 1 tablet by mouth three times daily. betamethasone dipropionate (DIPROSONE) 0.05 % cream Apply to affected area twice daily. predniSONE (DELTASONE) 10 mg tablet Take 4 tabs daily for 3 days, then 2 tabs daily for 3 days, then 1 tab daily for 3 days with food. cefADROxil (DURICEF) 500 mg capsule Take 1 capsule by mouth two times a day for 7 days. FAMILY HISTORY Problem Relation Age of Onset Cancer Mother Lung? other (a. fib) Father other (TIA) Father Hyperlipidemia Father Hypertension Father Hypertension Sister Stroke Maternal Grandmother Diabetes Maternal Grandmother Ischemic Heart Disease Maternal Grandfather Heart disease Maternal Grandfather Stroke Paternal Grandmother Heart Attack Paternal Grandfather Ovarian cancer Maternal Aunt Social History Tobacco Use Smoking status: Never Smokeless tobacco: Never Vaping Use Vaping Use: Never used Substance Use Topics Alcohol use: Not Currently Comment: occasionally Drug use: Never Review of Systems Constitutional: Negative for fever. HENT: Positive for congestion, ear pain and sinus pain. Negative for nosebleeds and sore throat. Respiratory: Positive for cough. Negative for shortness of breath and wheezing. Musculoskeletal: Negative for neck pain. Objective Blood pressure 118/76, pulse 67, temperature 36.8 C (98.3 F), temperature source Tympanic, resp. rate 18, weight 53.1 kg (117 lb), SpO2 99%. Physical Exam Constitutional: General: She is not in acute distress. Appearance: She is not toxic-appearing or diaphoretic. HENT: Head: Normocephalic and atraumatic. Right Ear: Hearing, tympanic membrane, ear canal and external ear normal. Left Ear: Hearing, tympanic membrane, ear canal and external ear normal. Nose: Right Sinus: Maxillary sinus tenderness present. Left Sinus: Maxillary sinus tenderness present. Mouth/Throat: Pharynx: Uvula midline. No pharyngeal swelling, oropharyngeal exudate, posterior oropharyngeal erythema or uvula swelling. Eyes: General: Lids are normal. No scleral icterus. Right eye: No discharge. Left eye: No discharge. Conjunctiva/sclera: Conjunctivae normal. Pupils: Pupils are equal, round, and reactive to light. Neck: Trachea: Trachea normal. Cardiovascular: Rate and Rhythm: Normal rate and regular rhythm. Heart sounds: Normal heart sounds. Pulmonary: Effort: Pulmonary effort is normal. Breath sounds: Normal breath sounds. Musculoskeletal: Cervical back: Normal range of motion and neck supple. Lymphadenopathy: Cervical: No cervical adenopathy. Right cervical: No superficial cervical adenopathy. Left cervical: No superficial cervical adenopathy. Skin: Findings: No rash. Neurological: Mental Status: She is alert and oriented to person, place, and time. ASSESSMENT/PLAN: 1. Sinobronchitis - ICD9: 473.9, 490, ICD10: J32.9, J40 - Will begin treatment with as per antibiotic as written, see orders - Supportive care with plenty of fluids, rest, and analgesia prn. - Follow up in 3-5 days if symptoms persist or worsen. Will schedule f/u recheck with pcp - PREDNISONE 10 MG TABLET - CEFADROXIL 500 MG CAPSULE Manuel Simpsno APRN.INDUSTRIAL INSULATOR documented in this encounterK[facility]02-22-2024 Instructions* Patient Instructions* Dedra Mcnally APRN.TRACY - 06/11/2023 1:48 PM EST Start doxycycline, take with food. Continue supportive care at home. May use [id number] cold and cough medications as needed. May ask the pharmacist for high-doseSudafed if needed for nasal congestion. Stay well-hydrated. Follow-up if no improvement. documented in this encounterK[facility]02-22-[facility]24 History of Present illness Narrative* Dedra Mcnally APRN.CNP - 06/11/2023 1:40 PM EST Chief Complaint Patient presents with: Sinus Problem This Team Access Model encounter involved medical decision making outside of a scheduled office visit. Patient was offered a virtual/telemedicine appointment in lieu of an office visit due to recommendations to reduce patient exposure to COVID-19. Video was used for evaluation of this patient. Patient agrees to the visit: Yes Patient Location: [place] I have communicated my name and active licensure. The patient's identity and physical location wereverified at the time of this visit. Either the patient or their legal independent sales representative has been informed of the risks and benefits of -- and alternatives to -- treatment through a remote evaluation andconsents to proceed with the evaluation remotely. VANIA Velazquez is a 67 year old female who is contacted today for a virtual visit This is an established patient of Dr. Remy Perez MD Reports: Patient of Dr. Perez. Currently out of State in [place] taking care of her father.Refers she started to feel like she was getting a cold starting on Thursday. Drove to see her dad yesterday and felt like symptoms are progressing. Sinus pressure, pain in the jaw/Upper teeth, head pressure, chills, and left ear pain. Tried motrin and tylenol, flonase, and decongestants. No fever. Past medical history, appointments, medications, allergies reviewed 06/11/2023 Previous Medical History PAST MEDICAL HISTORY Diagnosis Date Elevated blood sugar 11/19/2021 History of COVID-19 11/01/2021 10/11/2021 Hypertension, essential 11/01/2021 Postoperative hypothyroidism 11/01/2021 Removed due to goiter. Primary insomnia 11/01/2021 RLS (restless legs syndrome) 11/01/2021 On gabapentin Previous Surgical History PAST SURGICAL HISTORY Procedure Laterality Date COLONOSCOPY 01/22/2023 repeat 5 years CYST/MOLE REMOVAL Left 1977 benign cyst- Left breast PAST SURGICAL HISTORY OF 2018 cervical fusion PAST SURGICAL HISTORY OF 2017 right shoulder decompression PAST SURGICAL HISTORY OF Bilateral foot surgery THYROIDECTOMY 10/2018 due to goiter, no cancer TONSILLECTOMY HX 8 yo Family History FAMILY HISTORY Problem Relation Age of Onset Cancer Mother Lung? other (a. fib) Father other (TIA) Father Hyperlipidemia Father Hypertension Father Hypertension Sister Stroke Maternal Grandmother Diabetes Maternal Grandmother Ischemic Heart Disease Maternal Grandfather Heart disease Maternal Grandfather Stroke Paternal Grandmother Heart Attack Paternal Grandfather Ovarian cancer Maternal Aunt Patient Allergies ALLERGIES Allergen Reactions Augmentin [Amoxicil* GI Upset Current Medications Current Outpatient Medications on File Prior to Visit Medication Sig levothyroxine (SYNTHROID) 88 mcg tablet Take 1 tablet by mouth daily before breakfast. Take one tablet daily before breakfast traZODone (DESYREL) 150 mg tablet Take 1 tablet by mouth daily at bedtime. losartan (COZAAR) 25 mg tablet Take 1 tablet by mouth once daily. Take one tablet daily cyclobenzaprine (FLEXERIL) 10 mg tablet Take 1 tablet by mouth three times a day as needed for muscle spasm. (Patient not taking: Reported on 04/08/2023) predniSONE (DELTASONE) 10 mg tablet Take 4 tabs daily for 3 days, then 2 tabs daily for 3 days, then 1 tab daily for 3 days with food. (Patient not taking: Reported on 04/08/2023) dicyclomine (BENTYL) 10 mg capsule Take 1 capsule by mouth before meals and at bedtime. gabapentin (NEURONTIN) 300 mg capsule Take 1 capsule by mouth twice daily for 180 days. pravastatin (PRAVACHOL) 20 mg tablet Take 1 tablet by mouth daily at bedtime. busPIRone (BUSPAR) 5 mg tablet Take 1 tablet by mouth three times daily. betamethasone dipropionate (DIPROSONE) 0.05 % cream Apply to affected area twice daily. No current facility-administered medications on file prior to visit. Social History Social History Tobacco Use Smoking status: Never Smokeless tobacco: Never Vaping Use Vaping Use: Never used Substance Use Topics Alcohol use: Not Currently Comment: occasionally Drug use: Never Review of Symptoms GENERAL: + Chills HEENT: Negative for headaches No eye discharge or redness + Ear pain No sore throat Nose + Sinus pressure NECK: Negative for pain or swelling. No lumps RESPIRATORY: No wheezing, SOB, Difficulty breathing. No cough CARDIOVASCULAR: Negative for chest pain GI: No nausea, vomiting, or diarrhea MUSCULOSKELETAL: Negative for bodyaches SKIN: Negative for rash or itching Neuro: No lightheadedness or dizziness EXAM: There were no vitals taken for this visit. Limited exam as visit was completed over the virtual platform. Virtual visit completed using video, limited exam completed. Patient sounds or appears ill: Yes General Appearance: Well appearing, alert, in no acute distress, well-hydrated, well nourished. Skin: Skin color normal Head: Normocephalic. No facial swelling or redness. EENT: Eyes nonreddened. No discharge. External ears nonreddened and no swelling. Neck: No mass or lesions. No swelling. FROM Patient is not able to speak in complete sentences: N/A Patient has labored breathing: No. Patient is audibly coughing: Yes Psych: Attitude - cooperative, easily engaged in conversation Affect - Euthymic, normal mood Mental status: Alert. Speech is clear and fluent with good repetition, comprehension Appearance - Normal hygiene and grooming appropriate Coordination: No abnormal or extraneous movements. Gait/Stance: Posture is normal. Health Maintenance List DTaP,Tdap,Td Vaccine(1 - Tdap) Never done RSV Vaccine(1 - 1-dose 60+ series) Never done Bone Density Screening Never done Covid-19 Vaccine(2022- season) due on 12/19/2022 Advance Directive Discussion due on 04/20/2023 Depression Assessment due on 04/20/2023 Shingrix Vaccine(1 of 2) due on 06/20/2023 BP Controlled (<130/80) due on 06/20/2023 Annual PCP Team Chronic Disease Visit due on 12/25/2023 Mammogram Screening due on 05/20/2024 Diabetes Screening due on 12/24/2025 Lipid Screening due on 12/25/2027 Colorectal Cancer Screening due on 01/23/2028 Influenza Vaccine Completed Pneumococcal Vaccine: 65+ Completed Pap Testing Discontinued Hepatitis C Screening Discontinued Data reviewed Last 5 Encounter BP Readings: Date: BP: 04/08/2023 134/80 02/11/2023 110/60 01/29/2023 102/60 01/22/2023 157/76 12/24/2022 100/80 BMI Readings from Last 5 Encounters: 04/08/23 : 21.77 kg/m 02/11/23 : 21.77 kg/m 01/29/23 : 21.66 kg/m 12/24/22 : 21.77 kg/m 10/01/22 : 21.95 kg/m Last 5 Encounter Wt Readings: Date: Wt: 04/08/2023 54 kg (119 lb) 02/11/2023 54 kg (119 lb) 01/29/2023 53.7 kg (118 lb 6.4 oz) 12/24/2022 54 kg (119 lb) 10/01/2022 54.4 kg (120 lb) Medication and allergy list reviewed, reconciled and updated 06/11/2023 ASSESSMENT/PLAN: 1. Bacterial sinusitis - ICD9: 473.9, 041.9, ICD10: J32.9, B96.89 - Will begin treatment with Doxycycline - Supportive care with plenty of fluids, rest, and analgesia prn. - May use [id number] cold and cough medications as needed for symptom management. - DOXYCYCLINE HYCLATE 100 MG TABLET Follow-up if no improvement. Discussed treatment plan and patient voices understanding. Patient's questions answered appropriately. Medications and potential side effects were discussed and patient voices understanding. Dedra Mcnally APRN.TRACY Total appointment time on virtual with patient = 21-30 minutes This note was partially generated using [employer] voice recognition system. Note was reviewed for accuracy. There may be minor misspellings or grammar miscues with [employer] voice recognition. documented in this encounterK[facility]02-01-2024 Miscellaneous Notes* Letter - Coordinator, Julio C - 05/21/2023 3:04 PM EST May 22, 2023 PID: [id number] Lillian Velazquez [address] [place] [address] Dear Ms. Velazquez, We are pleased to inform you that the results of your recent breast imaging exam on 05/20/2023 are normal. Your mammogram demonstrates that you have dense breast tissue, which could hide abnormalities. Dense breast tissue, in and of itself, is a relatively common condition. Therefore, this information is not provided to cause undue concern; rather, it is to raise your awareness and promote discussion with your health care provider regarding the presence of dense breast tissue in addition to other riskfactors. Early detection of cancer is very important. We also understand recommendations regarding breast cancer screening are controversial. Please discuss with your primary care provider which strategy is best for you and whether a mammogram is right for you. Your imaging studies and report will be [facility] on [facility] at [facility] as part of your permanent medical record and are available for your continuing care. Thank you for allowing us to help in meeting your health care needs. Sincerely, Dr. Patterson Interpreting Radiologist [facility] (Normal over 40) documented in this encounterKettering [facility]12-31-2023 Instructions* Patient Instructions* Sherlyn Frazier APRN.INDUSTRIAL INSULATOR - 04/19/2023 3:15 PM EST [facility] PATIENT INFO ACUTE SINUSITIS OVERVIEW Rhinosinusitis, or more commonly sinusitis, is the medical term for inflammation (swelling) of the lining of the sinuses and nose. The sinuses are the hollow areas within the facial bones that are connected to the nasal openings. The sinuses are lined with mucous membranes, similar to the inside ofthe nose. There are two main types of sinusitis: acute and chronic. Acute sinusitis is inflammation that lasts for less than four weeks while chronic sinusitis lasts for more than 12 weeks. Acute sinusitis is common, affecting approximately one million people per year in the [place]. ACUTE SINUSITIS CAUSES The most common cause of acute sinusitis is a viral infection associated with the common cold. Bacterial sinusitis occurs much less commonly, in only 0.5 to 2 percent of cases, usually as a complication of viral sinusitis. Because antibiotics are effective only against bacterial, and not viral, infections, most people donot need antibiotics for acute sinusitis. ACUTE SINUSITIS SYMPTOMS Symptoms of acute sinusitis include: Nasal congestion or blockage Thick, yellow to green discharge from the nose Pain in the teeth Pain or pressure in the face that is worse when bending forwards Other acute sinusitis symptoms can include fever (temperature greater than 100.4 F or 38 C), fatigue, cough, difficulty or inability to smell, ear pressure or fullness, headache, and bad breath. In most cases, these symptoms develop over the course of one day and begin to improve within seven to 10 days. DO I NEED TO BE EXAMINED? It is difficult to know if you have a viral or bacterial sinus infection initially. However, most people with a viral infection improve without treatment within seven to 10 days after symptoms begin.Bacterial sinusitis also sometimes improves without treatment, although it can also worsen and require treatment. If one or more of the following bothersome symptoms last more than seven days, an examination by a healthcare provider is recommended: Thick, yellow to green discharge from the nose Face or tooth pain, especially if it is only on one side Tenderness over the maxillary sinuses (located on the left and right side of the nose, inside the cheekbones) Symptoms that initially improve and then worsen When to seek immediate help -- If you have one or more of the following symptoms, you should seek medical attention immediately (even if symptoms have been present for less than seven days): High fever (>102.5 F or 39.2 C) Sudden, severe pain in the face or head Double vision or difficulty seeing Confusion or difficulty thinking clearly Swelling or redness around one or both eyes Stiff neck, shortness of breath ACUTE SINUSITIS TREATMENT Initial treatment of a sinus infection aims to relieve symptoms since almost everyone will improve within the first seven to 10 days. Experts recommend avoiding antibiotics during this time unless there is clear evidence of a severe bacterial infection. Initial treatment Pain relief -- Non-prescription pain medications, such as acetaminophen (eg, Tylenol ) or ibuprofen(eg, Motrin , Advil ) are recommended for pain. Nasal irrigation and saline sprays -- Rinsing the nose with a salt-water (saline) solution is called nasal irrigation or nasal lavage. Saline is also available in a standard nasal spray, although this is not as effective as using larger amounts of water in an irrigation. Nasal irrigation is particularly useful for treating drainage down the back of the throat, sneezing, nasal dryness, and congestion. The treatment helps by rinsing out allergens and irritants from thenose. Saline rinses also clean the nasal lining and can be used before applying sprays containing medications, to get a better effect from the medication. Nasal lavage with warmed saline can be performed as needed, once per day, or twice daily for increased symptoms. Nasal lavage carries few risks when performed correctly. Saline nasal sprays and irrigation kits can be purchased [id number]. Saline mixes can also be purchased or patients can make their own solution. A variety of devices, including bulb syringes, Neti pots, and bottle sprayers, may be used to perform nasal lavage; instructions for nasal lavage are provided in the table. At least 200 mL (about 3/4cup) of fluid is recommended for each nostril. Nasal decongestants -- Nasal decongestant sprays, including oxymetazoline (Afrin ) and phenylephrine (Rizwan-synephrine ) can be used to temporarily treat congestion. However, these sprays should not beused for more than two to three days due to the risk of rebound congestion (when the nose is congested constantly unless the medication is used repeatedly). Other treatments -- Other treatments for congestion, such as oral antihistamines (such as diphenhydramine/Benadryl ) or zinc supplements are not proven to improve symptoms of sinusitis and can have unwanted side effects. Medications to thin secretions (such as guaifenesin) may help to clear mucus. Secondline treatment -- If symptoms have not improved in seven to ten days, you should arrange for medical evaluation. You may need further treatment. Nasal glucocorticoids -- Nasal glucocorticoids (steroids delivered by a nasal spray) can help to reduce swelling inside the nose, usually within two to three days. These drugs have few side effects and dramatically relieve symptoms in most people. There are a number of nasal glucocorticoids available by prescription. These drugs are all effective, but differ in how frequently they must be used and how much they cost. You may need to use a nasal decongestant for a few days before starting a nasal glucocorticoid to reduce nasal swelling; this will allow the nasal glucocorticoid to reach more areas of the nasal passages Do I need an antibiotic? -- If bothersome symptoms of sinusitis persist for 10 or more days, it is possible that you have bacterial sinusitis. The need for antibiotics depends upon the severity of your symptoms. Mild symptoms -- There are two possible treatment options if you have mild sinusitis symptoms: treat with antibiotics or continue to watch and wait for one week. Watching and waiting is a reasonable option because up to 75 percent of people with bacterial sinusitis improve within one month without antibiotics. During the watch and wait period, treatments to improve symptoms are recommended. If symptoms worsen or do not improve after watching and waiting, treatment with an antibiotic is usually recommended. Treatments to relieve symptoms are recommended while using antibiotics. Moderate or severe symptoms -- Most healthcare providers will prescribe an antibiotic for moderate to severe symptoms (temperature >38.3 C or 101 F and/or severe pain that interferes with usual activities). Treatments to relieve symptoms are also recommended during antibiotic treatment. One of the least expensive and most effective antibiotics for sinusitis is amoxicillin. An alternate antibiotic will be prescribed if you are allergic to penicillin. Regardless of which antibiotic isprescribed, it is important to follow the dosing instructions carefully and to finish the entire course of treatment. Taking the medication less often than prescribed or stopping the medication earlycan lead to complications, such as a recurrent infection. What if I do not improve with treatment? -- If you do not improve or worsen after a course of antibiotics, you should be re-examined. In some cases, symptoms of sinusitis improve but then recur. This is usually because the infection was not completely eliminated by the antibiotic. An alternate antibiotic, extended antibiotic treatment, and/or further testing may be recommended, depending upon your individual situation. [facility] History of Present illness Narrative* Sherlyn Frazier APRN.CNP - 04/19/2023 3:02 PM EST Telemedicine Visit - Distance Health Virtual Visit Note Patient seen on [employer] Video Visit platform. Location of patient: [place] I have communicated my name and active licensure. The patient's identity and physical location wereverified at the time of this visit. Either the patient or their legal independent sales representative has been informed of the risks and benefits of -- and alternatives to -- treatment through a remote evaluation andconsents to proceed with the evaluation remotely. History of Present Illness Lillian Velazquez is a 67 year old year old female who presents for the past 12 days with symptoms that are:waxing and waning. Symptoms include: Positive for Cough, Nasal congestion, Face pain/pressure, and Teeth pain , Negative for Fever, Chills/Sweats, SOB, Wheezing, Sore throat, Nausea, Emesis, and Diarrhea Oral intake: adequate Sick contacts: no Recent travel: no OTC meds/remedies that patient has tried: mucinex, NSAID and tessalon perles. Patient had RSV 04/08 she has been getting better She has pressure and pain in sinus that started today She will be going on trip tomorrow and feel she has sinus infections PAST MEDICAL HISTORY Diagnosis Date Elevated blood sugar 11/19/2021 History of COVID-19 11/01/2021 10/11/2021 Hypertension, essential 11/01/2021 Postoperative hypothyroidism 11/01/2021 Removed due to goiter. Primary insomnia 11/01/2021 RLS (restless legs syndrome) 11/01/2021 On gabapentin PAST SURGICAL HISTORY Procedure Laterality Date COLONOSCOPY 01/22/2023 repeat 5 years CYST/MOLE REMOVAL Left 1977 benign cyst- Left breast PAST SURGICAL HISTORY OF 2018 cervical fusion PAST SURGICAL HISTORY OF 2017 right shoulder decompression PAST SURGICAL HISTORY OF Bilateral foot surgery THYROIDECTOMY 10/2018 due to goiter, no cancer TONSILLECTOMY HX 8 yo FAMILY HISTORY Problem Relation Age of Onset Cancer Mother Lung? other (a. fib) Father other (TIA) Father Hyperlipidemia Father Hypertension Father Hypertension Sister Stroke Maternal Grandmother Diabetes Maternal Grandmother Ischemic Heart Disease Maternal Grandfather Heart disease Maternal Grandfather Stroke Paternal Grandmother Heart Attack Paternal Grandfather Ovarian cancer Maternal Aunt Social History Tobacco Use Smoking status: Never Smokeless tobacco: Never Vaping Use Vaping Use: Never used Substance Use Topics Alcohol use: Not Currently Comment: occasionally Drug use: Never Current Outpatient Medications Medication Sig levothyroxine (SYNTHROID) 88 mcg tablet Take 1 tablet by mouth daily before breakfast. Take one tablet daily before breakfast traZODone (DESYREL) 150 mg tablet Take 1 tablet by mouth daily at bedtime. losartan (COZAAR) 25 mg tablet Take 1 tablet by mouth once daily. Take one tablet daily cyclobenzaprine (FLEXERIL) 10 mg tablet Take 1 tablet by mouth three times a day as needed for muscle spasm. (Patient not taking: Reported on 04/08/2023) predniSONE (DELTASONE) 10 mg tablet Take 4 tabs daily for 3 days, then 2 tabs daily for 3 days, then 1 tab daily for 3 days with food. (Patient not taking: Reported on 04/08/2023) dicyclomine (BENTYL) 10 mg capsule Take 1 capsule by mouth before meals and at bedtime. gabapentin (NEURONTIN) 300 mg capsule Take 1 capsule by mouth twice daily for 180 days. pravastatin (PRAVACHOL) 20 mg tablet Take 1 tablet by mouth daily at bedtime. busPIRone (BUSPAR) 5 mg tablet Take 1 tablet by mouth three times daily. betamethasone dipropionate (DIPROSONE) 0.05 % cream Apply to affected area twice daily. No current facility-administered medications for this visit. ALLERGIES Allergen Reactions Augmentin [Amoxicil* GI Upset Video Exam (Examination performed via Video enabled technology) General appearance: Alert, oriented, pleasant, in NAD :Yes Ill appearing :No Lethargic appearing :No Eyes: Sclera clear :Yes Conjunctiva without erythema :Yes Ears: Tragus / outer ear tenderness by self palpation :No Frontal sinus tenderness by self palpation;Yes Maxillary sinus tenderness by self palpation :Yes Tender cervical adenopathy by self palpation :No Respiratory distress :No Coughing noted :No Audible wheezing noted :No (J32.9) Rhinosinusitis (primary encounter diagnosis) + RSV . NAD Sinus sx worsening OTC therapies not working Will try sudafed OTC Will wait and try other therapies first Start ATB if no improvement as she will be leaving on trip Increase fluids and rest Orders Placed This Encounter doxycycline (VIBRA-TABS) 100 mg tablet Sig: Take 1 tablet by mouth two times a day for 5 days. Dispense: 10 tablet Refill: 0 -Tylenol (generic acetaminophen) 500 mg-2 tabs every 8 hrs. as needed for fever and aches -Sudafed (generic is fine), behind the counter, 2x30 mg tabs twice daily as needed for congestion -Mucinex (generic is fine) 1200 mg twice daily to help with cough and to thin out mucus -[email or web address]/[email or web address] This link shares information about when antibiotics may help and when they may not. - Red flags discussed for need for in person care - All questions answered Sherlyn Frazier APRN.CNP documented in this encounterK[facility]12-20-[facility] History of Present illness Narrative* Jennifer Pa RT(R) - 04/08/2023 11:10 AM EST Radiology Service Progress Note PATIENT NAME: Lillian Velazquez DATE OF SERVICE: April 08, 2023 TIME: 11:28 AM PATIENT IDENTITY VERIFICATION COMPLETED USING TWO (2) IDENTIFIERS: Name and Date of confirmedby patient verbally. FALL SCREENING: Has the patient had 2 falls in the last year or 1 fall with injury or currently using an Ambulatory Assistive Device (Walker, Cane, Wheelchair, Crutches, etc.)? No PATIENT GENDER DATA: Female. status: : No status: NO. PATIENT RELEVANT IMPLANT DATA REVIEWED: Yes RADIOLOGY DEPARTMENT: General X-ray: Exam(s) Completed: Chest X-Ray PERIPHERAL IV DATA: Not applicable SIGNED BY: RT Destin(Rea) April 08, 2023 11:28 AM documented in this encounterK[facility]12-20-[facility] History of Present illness Narrative* Sophia Jin APRN.CNP - 04/08/2023 11:09 AM EST Subjective HPI Lillian presents today with 4 days hx of sinus congestion and cough, she states last night she neededto use her inhailer. She is not sure if she has had a fever, she is not aware of sick contacts. Sheis going out of town and wants to recover before trip. PAST MEDICAL HISTORY Diagnosis Date Elevated blood sugar 11/19/2021 History of COVID-19 11/01/2021 10/11/2021 Hypertension, essential 11/01/2021 Postoperative hypothyroidism 11/01/2021 Removed due to goiter. Primary insomnia 11/01/2021 RLS (restless legs syndrome) 11/01/2021 On gabapentin PAST SURGICAL HISTORY Procedure Laterality Date COLONOSCOPY 01/22/2023 repeat 5 years CYST/MOLE REMOVAL Left 1977 benign cyst- Left breast PAST SURGICAL HISTORY OF 2018 cervical fusion PAST SURGICAL HISTORY OF 2017 right shoulder decompression PAST SURGICAL HISTORY OF Bilateral foot surgery THYROIDECTOMY 10/2018 due to goiter, no cancer TONSILLECTOMY HX 8 yo ALLERGIES Augmentin [Amoxicillin-Pot Clavulanate] MEDICATIONS levothyroxine (SYNTHROID) 88 mcg tablet Take 1 tablet by mouth daily before breakfast. Take one tablet daily before breakfast traZODone (DESYREL) 150 mg tablet Take 1 tablet by mouth daily at bedtime. losartan (COZAAR) 25 mg tablet Take 1 tablet by mouth once daily. Take one tablet daily dicyclomine (BENTYL) 10 mg capsule Take 1 capsule by mouth before meals and at bedtime. gabapentin (NEURONTIN) 300 mg capsule Take 1 capsule by mouth twice daily for 180 days. pravastatin (PRAVACHOL) 20 mg tablet Take 1 tablet by mouth daily at bedtime. busPIRone (BUSPAR) 5 mg tablet Take 1 tablet by mouth three times daily. betamethasone dipropionate (DIPROSONE) 0.05 % cream Apply to affected area twice daily. cyclobenzaprine (FLEXERIL) 10 mg tablet Take 1 tablet by mouth three times a day as needed for muscle spasm. (Patient not taking: Reported on 04/08/2023) predniSONE (DELTASONE) 10 mg tablet Take 4 tabs daily for 3 days, then 2 tabs daily for 3 days, then 1 tab daily for 3 days with food. (Patient not taking: Reported on 04/08/2023) FAMILY HISTORY Problem Relation Age of Onset Cancer Mother Lung? other (a. fib) Father other (TIA) Father Hyperlipidemia Father Hypertension Father Hypertension Sister Stroke Maternal Grandmother Diabetes Maternal Grandmother Ischemic Heart Disease Maternal Grandfather Heart disease Maternal Grandfather Stroke Paternal Grandmother Heart Attack Paternal Grandfather Ovarian cancer Maternal Aunt Social History Tobacco Use Smoking status: Never Smokeless tobacco: Never Vaping Use Vaping Use: Never used Substance Use Topics Alcohol use: Not Currently Comment: occasionally Drug use: Never Review of Systems HENT: Positive for congestion. Respiratory: Positive for cough. All other systems reviewed and are negative. Objective Physical Exam Vitals and nursing note reviewed. Constitutional: Appearance: Normal appearance. HENT: Head: Normocephalic and atraumatic. Right Ear: Tympanic membrane, ear canal and external ear normal. Left Ear: Tympanic membrane, ear canal and external ear normal. Nose: Congestion present. Mouth/Throat: Mouth: Mucous membranes are moist. Pharynx: Oropharynx is clear. Eyes: Conjunctiva/sclera: Conjunctivae normal. Pupils: Pupils are equal, round, and reactive to light. Cardiovascular: Rate and Rhythm: Normal rate and regular rhythm. Pulses: Normal pulses. Heart sounds: Normal heart sounds. Pulmonary: Effort: Pulmonary effort is normal. No respiratory distress. Breath sounds: No stridor. No rhonchi or rales. Chest: Chest wall: No tenderness. Abdominal: General: Abdomen is flat. Palpations: Abdomen is soft. Musculoskeletal: General: No swelling. Normal range of motion. Cervical back: Normal range of motion and neck supple. No rigidity. Lymphadenopathy: Cervical: No cervical adenopathy. Skin: General: Skin is warm and dry. Capillary Refill: Capillary refill takes less than 2 seconds. Neurological: General: No focal deficit present. Mental Status: She is alert and oriented to person, place, and time. ASSESSMENT/PLAN: 1. Acute cough - ICD9: 786.2, ICD10: R05.1 Increase fluids Zpack if symptoms do not resolve Result in my chart tomorrow - XR CHEST 2V FRONTAL/LAT - COVID & INFLUENZA A/B & RSV NAAT, ROUTINE Sophia Jin APRN.INDUSTRIAL INSULATOR documented in this encounterK[facility]10-27-[facility] Miscellaneous Notes* Telephone Encounter - Taya Bryant - 02/13/2023 11:30 AM EDT Patient has been identified by name and date of : Yes Requested Prescriptions Pending Prescriptions Disp Refills levothyroxine (SYNTHROID) 88 mcg tablet 90 tablet 1 Sig: Take 1 tablet by mouth daily before breakfast. Take one tablet daily before breakfast traZODone (DESYREL) 150 mg tablet 90 tablet 1 Sig: Take 1 tablet by mouth daily at bedtime. losartan (COZAAR) 25 mg tablet 90 tablet 1 Sig: Take 1 tablet by mouth once daily. Take one tablet daily WESLY:12/24/22 NOV:07/02/23 RX INSTRUCTIONS: Patient aware RX will be sent to pharmacy. No need to notify patient. Taya Bryant documented in this encounterK[facility]10-25-[facility] History of Present illness Narrative* Jennifer Pa RT(R) - 02/11/2023 1:50 PM EDT Radiology Service Progress Note PATIENT NAME: Lillian Velazquez DATE OF SERVICE: February 11, 2023 TIME: 1:47 PM PATIENT IDENTITY VERIFICATION COMPLETED USING TWO (2) IDENTIFIERS: Name and Date of confirmedby patient verbally. FALL SCREENING: Has the patient had 2 falls in the last year or 1 fall with injury or currently using an Ambulatory Assistive Device (Walker, Cane, Wheelchair, Crutches, etc.)? No PATIENT GENDER DATA: Female. status: : No status: NO. PATIENT RELEVANT IMPLANT DATA REVIEWED: Yes RADIOLOGY DEPARTMENT: General X-ray: Exam(s) Completed: Lower Extremity X- Ray(s): Knee, AP / Lat / Tunne / Merchant Bilateral and Wt. Bearing PERIPHERAL IV DATA: Not applicable SIGNED BY: RT Destin(R) February 11, 2023 1:47 PM documented in this encounterK[facility]10-25-[facility] History of Present illness Narrative* Keely Doll APRN.INDUSTRIAL INSULATOR - 02/11/2023 1:32 PM EDT This note was created using NoteWriter. Subjective Lillian Velazquez is a 67 year old female. 67 year old female with PMH insomnia, RLS, HTN, hyperlipidemia, hypothyroid presents for multiple complaints of pain. Neck Pain X 1 month Has been seen for same Had PT via [facility] States that over the past week the pain has increased. Denies known trauma or injury Of note she was in [place] for the past week. States that she was visiting family and lifting a 2 year old and 2 month old History of disc fusion. Knee Pain Bilateral Right greater than left Catching and stabbing Denies knee surgeries States she had a lot of walking in [place] Dancing @ wedding Up and down stairs Playing with grandchildren Denies fever or chills Denies skin rash or lesions. Denies CP. Denies SOB. Denies dyspnea The history is provided by the patient. No end worker was used. Left knee injury: No Right knee condition: Acute Left knee condition: Acute Right knee severity: Moderate Left knee severity: Mild Right knee progression: Stable Left knee progression: Stable Patient reports that right knee feels stable. Patient reports that left knee feels stable. Patient reports feeling right knee catching. Patient reports feeling right knee not locking and not popping. Patient reports feeling left knee not locking, not popping and not catching. Right job related: No Left job related: No Right knee aggravating factors: Deep squatting, change in inclines, bending or twisting, rapid change of direction and regular daily ambulation. Left knee aggravating factors: Regular daily ambulation, change in inclines, bending of twisting, deep squatting and rapid change of direction. Right knee alleviating factors: Rest. Left knee alleviating factors: Rest. Neck Pain This is a chronic problem. The current episode started 1 to 4 weeks ago. The problem occurs constantly. The problem has been unchanged. The pain is associated with lifting a heavy object. The pain ispresent in the left side. The quality of the pain is described as cramping. The pain is at a severity of 5/10. The pain is moderate. The symptoms are aggravated by position, bending and twisting. Thepain is Same all the time. Stiffness is present All day. Pertinent negatives include no chest pain,fever, headaches, leg pain, numbness, pain with swallowing, paresis, photophobia, syncope, tingling, trouble swallowing, visual change, weakness or weight loss. She has tried acetaminophen for the symptoms. The treatment provided no relief. PAST MEDICAL HISTORY Diagnosis Date Elevated blood sugar 11/19/2021 History of COVID-19 11/01/2021 10/11/2021 Hypertension, essential 11/01/2021 Postoperative hypothyroidism 11/01/2021 Removed due to goiter. Primary insomnia 11/01/2021 RLS (restless legs syndrome) 11/01/2021 On gabapentin PAST SURGICAL HISTORY Procedure Laterality Date COLONOSCOPY 01/22/2023 CYST/MOLE REMOVAL Left 1977 benign cyst- Left breast PAST SURGICAL HISTORY OF 2018 cervical fusion PAST SURGICAL HISTORY OF 2017 right shoulder decompression PAST SURGICAL HISTORY OF Bilateral foot surgery THYROIDECTOMY 10/2018 due to goiter, no cancer TONSILLECTOMY HX 8 yo ALLERGIES Augmentin [Amoxicillin-Pot Clavulanate] MEDICATIONS dicyclomine (BENTYL) 10 mg capsule Take 1 capsule by mouth before meals and at bedtime. gabapentin (NEURONTIN) 300 mg capsule Take 1 capsule by mouth twice daily for 180 days. pravastatin (PRAVACHOL) 20 mg tablet Take 1 tablet by mouth daily at bedtime. levothyroxine (SYNTHROID) 88 mcg tablet Take 1 tablet by mouth daily before breakfast. Take one tablet daily before breakfast traZODone (DESYREL) 150 mg tablet Take 1 tablet by mouth daily at bedtime. losartan (COZAAR) 25 mg tablet Take 1 tablet by mouth once daily. Take one tablet daily busPIRone (BUSPAR) 5 mg tablet Take 1 tablet by mouth three times daily. betamethasone dipropionate (DIPROSONE) 0.05 % cream Apply to affected area twice daily. cyclobenzaprine (FLEXERIL) 10 mg tablet Take 1 tablet by mouth three times a day as needed for muscle spasm. predniSONE (DELTASONE) 10 mg tablet Take 4 tabs daily for 3 days, then 2 tabs daily for 3 days, then 1 tab daily for 3 days with food. FAMILY HISTORY Problem Relation Age of Onset Cancer Mother Lung? other (a. fib) Father other (TIA) Father Hyperlipidemia Father Hypertension Father Hypertension Sister Stroke Maternal Grandmother Diabetes Maternal Grandmother Ischemic Heart Disease Maternal Grandfather Heart disease Maternal Grandfather Stroke Paternal Grandmother Heart Attack Paternal Grandfather Ovarian cancer Maternal Aunt Social History Tobacco Use Smoking status: Never Smokeless tobacco: Never Vaping Use Vaping Use: Never used Substance Use Topics Alcohol use: Not Currently Comment: occasionally Drug use: Never Review of Systems Constitutional: Negative for activity change, appetite change, chills, fever and weight loss. HENT: Negative for trouble swallowing. Eyes: Negative for photophobia, pain, discharge and itching. Respiratory: Negative for apnea, cough, choking, chest tightness and shortness of breath. Cardiovascular: Negative for chest pain and syncope. Gastrointestinal: Negative for abdominal pain, diarrhea, nausea and vomiting. Musculoskeletal: Positive for neck pain. Knee pain Skin: Negative for color change, pallor, rash and wound. Allergic/Immunologic: Negative for environmental allergies, food allergies and immunocompromised state. Neurological: Negative for dizziness, tingling, facial asymmetry, weakness, numbness and headaches. Hematological: Negative for adenopathy. Does not bruise/bleed easily. Psychiatric/Behavioral: Negative for agitation and behavioral problems. Objective BP 110/60 Pulse 68 Temp 36.2 C (97.2 F) Resp 16 Wt 54 kg (119 lb) SpO2 98% BMI 21.77 kg/m Physical Exam Vitals and nursing note reviewed. Constitutional: General: She is not in acute distress. Appearance: Normal appearance. She is normal weight. She is not ill-appearing, toxic-appearing or diaphoretic. HENT: Head: Normocephalic and atraumatic. Right Ear: Ear canal and external ear normal. Left Ear: Ear canal and external ear normal. Nose: Nose normal. No congestion or rhinorrhea. Mouth/Throat: Mouth: Mucous membranes are moist. Pharynx: No oropharyngeal exudate or posterior oropharyngeal erythema. Eyes: General: Right eye: No discharge. Left eye: No discharge. Extraocular Movements: Extraocular movements intact. Conjunctiva/sclera: Conjunctivae normal. Pupils: Pupils are equal, round, and reactive to light. Cardiovascular: Rate and Rhythm: Normal rate and regular rhythm. Pulses: Normal pulses. Heart sounds: Normal heart sounds. No murmur heard. No friction rub. Pulmonary: Effort: Pulmonary effort is normal. No respiratory distress. Breath sounds: Normal breath sounds. No stridor. No wheezing, rhonchi or rales. Chest: Chest wall: No tenderness. Abdominal: General: Abdomen is flat. There is no distension. Palpations: Abdomen is soft. There is no mass. Tenderness: There is no abdominal tenderness. There is no right CVA tenderness, left CVA tenderness, guarding or rebound. Hernia: No hernia is present. Musculoskeletal: General: Swelling and tenderness present. No deformity or signs of injury. Normal range of motion. Cervical back: Normal range of motion and neck supple. No rigidity. Right lower leg: No edema. Left lower leg: No edema. Comments: Left paraspinal cervical muscle TTP. No midline No step off No crepitus Full active and passive ROM. +neuro +sensation 5/5 strength upper and lower Bilateral legs with pain with ROM and activity Right knee mild effusion noted 5/5 strength No rash or lesions. Ambulatory +neuro +sensation Lymphadenopathy: Cervical: No cervical adenopathy. Skin: General: Skin is warm and dry. Capillary Refill: Capillary refill takes less than 2 seconds. Coloration: Skin is not jaundiced or pale. Findings: No bruising, erythema, lesion or rash. Neurological: General: No focal deficit present. Mental Status: She is alert and oriented to person, place, and time. Cranial Nerves: No cranial nerve deficit. Sensory: No sensory deficit. Motor: No weakness. Coordination: Coordination normal. Gait: Gait normal. Psychiatric: Mood and Affect: Mood normal. Behavior: Behavior normal. Thought Content: Thought content normal. Judgment: Judgment normal. Assessment and Plan ASSESSMENT/PLAN: 1. Acute pain of both knees - ICD9: 338.19, 719.46, ICD10: M25.561, M25.562 (primary diagnosis) No trauma or injury NO red flags - XR KNEE GENERAL 4V AP BOTH/PA BOTH/LAT/MERC BILATERAL- No acute osseous abnormality. Small bilateral joint effusions. RICE therapy RX Prednisone RX Flexeril F/U with PCP 2. Muscle pain, cervical - ICD9: 723.1, ICD10: M54.2 Chronic No trauma or injury No red flags RX Prednisone RX Flexeril Keely Doll APRN.INDUSTRIAL INSULATOR [facility] Instructions* Patient Instructions* Louise Newton PA-C - 01/29/2023 3:12 PM EDT Trial of bentyl for episodes of abdominal cramping. Note that this medication can make you sleepy, do not take with alcohol or any other meds that can be sedating Food diary GI referral if symptoms persist Recommend probiotic, fiber If issues w/stool leakage persist, would recommend referral to anorectal specialist The following instructions are important for you related to your office visit today with the [facility] General Surgeons. INSTRUCTIONS FOLLOWING A POLYP FOUND AT COLONOSCOPY You were found to have a hyperplastic colon polyp, completely benign. I recommend you undergo repeat endoscopy in 5-10 years (based on bowel prep quality). If you note bleeding, change in bowel habits, or other suspicious colon related symptoms before that time, those symptoms should be evaluated as necessary. If you have any difficulties or concerns, you should contact our office immediately. If you note any additional difficulties, questions, or concerns, you should contact our office immediately @ [phone] and ask to be transferred to the General Surgery department. documented in this encounterK[facility]10-12-[facility] History of Present illness Narrative* Louise Newton PA-C - 01/29/2023 2:33 PM EDT FOLLOW UP VISIT - ENDOSCOPY NAME: Lillian [facility] NO.: [id number] DATE OF SERVICE: 01/29/2023 : 1955 REFERRING PHYSICIAN: Remy Perez MD Lillian is a patient I am following for screening colonoscopy. Dr. Cole performed lower endoscopy on 01/22/23. The patient was found to have diverticulosis and hemorrhoids, and well as a small sigmoid colon polyp which was removed. Pathology demonstrated: FINAL DIAGNOSIS Sigmoid colon polyp, biopsy: - Hyperplastic polyp. The patient notes a long-standing history of GI issues. States has had issues with looser stools and urgency x several years, per patient seems to be getting worse with getting older. Has been trying to watch diet as certain foods do tend to aggravate her symptoms, as well as stress. Will get significant abdominal cramping during episodes of stress. Notes a few rare episodes of stool leakage. Patient does report that she had a large episiotomy with her first delivery and had wound healing issues with this. Patient notes she is interested in any advice for helping to manage her bowel complaints long-term. VITALS: Blood pressure 102/60, pulse 71, temperature 36.2 C (97.2 F), weight 53.7 kg (118 lb 6.4 oz), SpO2 98 %. General: patient is alert, cooperative, pleasant and in no acute distress On examination, the abdomen is benign. Assessment IMPRESSION: s/p colonoscopy with polypectomy-benign hyperplastic polyp. Long- term bowel irregularity PLAN: The operative findings and pathology report were reviewed with the patient, and the patient has hadthe opportunity to ask questions and have questions answered. If the patient notes any problems or changes in bowel function, the patient should contact me immediately. Repeat colonoscopy in 5-10 years (based on prep quality) Trial of bentyl for episodes of abdominal cramping. Note that this medication can make you sleepy, do not take with alcohol or any other meds that can be sedating Food diary GI referral if symptoms persist Recommend probiotic, fiber If issues w/stool leakage persist, would recommend referral to anorectal specialist Patient verbalized understanding of all above and agreed with the plan Diagnoses: (K57.90) Diverticulosis (primary encounter diagnosis) (K63.5) Hyperplastic polyp of sigmoid colon (R19.8) Irregular bowel habits (R10.9) Abdominal cramping (Z98.890) History of episiotomy (R15.1) Fecal soiling I spent a total of 25 minutes on the date of the service which included preparing to see the patient, [id number] patient care, completing clinical documentation, obtaining and/or reviewing separately obtained history, counseling and educating the patient/family/caregiver, independently interpretin g results (not separately reported), and communicating results to the patient/family/caregiver. Louise Newton PA-C documented in this encounterK[facility]10-[facility] Nurse Note* Linda Cox RN - 01/22/2023 1:30 PM EDT Patient arrived laying on left side. Patient does not appear to be in any pain at this time. Abdomen appears to be nondistended and soft to palpation. Patient encouraged to belch and pass gas as needed. documented in this encounterK[facility]10-05-[facility]23 History and physical note * Hugh Cole MD - 01/22/2023 1:15 PM EDT Lillian Velazquez is a 67 year old female who presents here today for Chronic Medical Conditions.. Patient with hx of HTN, hypothyroidism, hyperlipidemia, elevated glucose, and those as below. Patient overall doing okay. Fell back in june and still has ongoing intermittent pains related to that. Mostly R sided low back pain with radiation into leg. still doing Physical Therapy. Past medical history, appointments, medications, allergies reviewed. Previous Medical History PAST MEDICAL HISTORY PAST MEDICAL HISTORY Diagnosis Date Elevated blood sugar 11/19/2021 History of COVID-19 11/01/2021 10/11/2021 Hypertension, essential 11/01/2021 Postoperative hypothyroidism 11/01/2021 Removed due to goiter. Primary insomnia 11/01/2021 RLS (restless legs syndrome) 11/01/2021 On gabapentin Previous Surgical History PAST SURGICAL HISTORY PAST SURGICAL HISTORY Procedure Laterality Date CYST/MOLE REMOVAL Left 1977 benign cyst- Left breast PAST SURGICAL HISTORY OF 2018 cervical fusion PAST SURGICAL HISTORY OF 2017 right shoulder decompression PAST SURGICAL HISTORY OF Bilateral foot surgery THYROIDECTOMY 10/2018 due to goiter, no cancer TONSILLECTOMY HX 8 yo Family History FAMILY HISTORY FAMILY HISTORY Problem Relation Age of Onset Cancer Mother Lung? other (a. fib) Father other (TIA) Father Hyperlipidemia Father Hypertension Father Hypertension Sister Stroke Maternal Grandmother Diabetes Maternal Grandmother Ischemic Heart Disease Maternal Grandfather Heart disease Maternal Grandfather Stroke Paternal Grandmother Heart Attack Paternal Grandfather Ovarian cancer Maternal Aunt Patient Allergies ALLERGIES ALLERGIES Allergen Reactions Augmentin [Amoxicil* GI Upset Current Medications Current Outpatient Medications on File Prior to Visit Medication Sig pravastatin (PRAVACHOL) 20 mg tablet Take 1 tablet by mouth daily at bedtime. gabapentin (NEURONTIN) 300 mg capsule Take 1 capsule by mouth once daily for 180 days. Take one tablet daily levothyroxine (SYNTHROID) 88 mcg tablet Take 1 tablet by mouth daily before breakfast. Take one tablet daily before breakfast traZODone (DESYREL) 150 mg tablet Take 1 tablet by mouth daily at bedtime. losartan (COZAAR) 25 mg tablet Take 1 tablet by mouth once daily. Take one tablet daily busPIRone (BUSPAR) 5 mg tablet Take 1 tablet by mouth three times daily. betamethasone dipropionate (DIPROSONE) 0.05 % cream Apply to affected area twice daily. No current facility-administered medications on file prior to visit. Social History SOCIAL HISTORY Social History Tobacco Use Smoking status: Never Smokeless tobacco: Never Vaping Use Vaping Use: Never used Substance Use Topics Alcohol use: Yes Alcohol/week: 5.0 standard drinks of alcohol Types: 5 Cans of beer per week Drug use: Never Review of Symptoms REVIEW OF SYSTEMS GENERAL: No weight loss, malaise or fevers NECK: Negative for lumps, goiter, pain and significant neck swelling RESPIRATORY: Negative for cough, hemoptysis, wheezing, COPD, dyspnea or shortness of breath CARDIOVASCULAR: Negative for chest pain, leg swelling, hypertension, CHF or palpitations NEURO: No history of headaches, syncope, paralysis, seizures or tremors EXAM: BP 100/80 (BP Site: Right Arm, BP Position: Sitting, BP Cuff Size: Regular Adult) Pulse 60 Temp36.5 C (97.7 F) Resp 16 Wt 54 kg (119 lb) BMI 21.77 kg/m General Appearance: Well appearing, alert, in no acute distress, well-hydrated, well nourished.. Neck: Supple, no adenopathy; thyroid symmetric, normal size, no bruits. Lungs: Lungs clear to auscultation. No wheezing, rhonchi, rales.. Heart: RRR without murmur, gallop, or rubs. No ectopy. Extremities: No deformities, edema, skin discoloration, clubbing or cyanosis. Good capillary refill. . Peripheral Pulses: Normal. Health Maintenance List DTAP,TDAP,TD(1 - Tdap) Never done COLORECTAL CANCER SCREENING Never done BONE DENSITY Never done INFLUENZA(1) due on 12/19/2022 MAMMOGRAM due on 01/15/2023 SHINGRIX VACCINE(1 of 2) due on 06/20/2023 COVID-19 VACCINE(4 - Pfizer series) due on 06/20/2023 BP CONTROLLED (<130/80) due on 06/20/2023 ANNUAL PCP TEAM CHRONIC DISEASE VISIT due on 12/25/2023 DIABETES SCREEN due on 06/19/2025 LIPID SCREEN due on 06/20/2027 ADVANCE DIRECTIVE DISCUSSION Completed DEPRESSION ASSESSMENT Completed PNEUMOCOCCAL: 65+ Completed PAP TESTING Discontinued HEPATITIS C SCREENING Discontinued Data reviewed Component Latest Ref Rng & Units 06/19/2022 Glucose 74 - 99 mg/dL 94 BUN 7 - 21 mg/dL 11 Creatinine 0.58 - 0.96 mg/dL 0.97 (H) Sodium 136 - 144 mmol/L 141 Potassium 3.7 - 5.1 mmol/L 4.0 Chloride 97 - 105 mmol/L 102 CO2 22 - 30 mmol/L 28 Anion Gap 9 - 18 mmol/L 11 Calcium 8.5 - 10.2 mg/dL 9.3 eGFR >=60 mL/min/1.73m 65 Total Cholesterol, Nonfasting <200 mg/dL 261 (H) Triglycerides, Nonfasting <150 mg/dL 164 (H) HDL Cholesterol, Nonfasting >39 mg/dL 62 LDL Cholesterol, Nonfasting <100 mg/dL 166 (H) Non HDL Cholesterol, Nonfasting <130 mg/dL 199 (H) VLDL Cholesterol, Nonfasting <30 mg/dL 33 (H) Total Chol/HDL Ratio, Nonfasting <5.10 mg/dL 4.21 LDL/HDL Ratio, Nonfasting <2.54 mg/dL 2.68 (H) TSH 0.270 - 4.200 mIU/L 1.940 ASSESSMENT/PLAN: 1. Postoperative hypothyroidism - ICD9: 244.0, ICD10: E89.0 (primary diagnosis) - Instructed patient on importance of taking on an empty stomach either first thing in the morning or at bedtime. - check TSH today - continue current dose of Synthroid - CBC + DIFF - LIPID PANEL, NONFASTING - TSH BLD 2. Elevated blood sugar - ICD9: 790.29, ICD10: R73.9 Check: - HGB A1C - CBC + DIFF - URINALYSIS, WITH MICROSCOPIC - LIPID PANEL, NONFASTING 3. Hypertension, essential - ICD9: 401.9, ICD10: I10 - Controlled - Continue current medications - Recommend home blood pressure monitoring, to bring results to next visit - Encouraged sodium restriction, DASH or Mediterranean diet - Recommend regular aerobic exercise - CBC + DIFF - URINALYSIS, WITH MICROSCOPIC - COMP METABOLIC PANEL 4. Primary insomnia - ICD9: 307.42, ICD10: F51.01 stable - CBC + DIFF 5. Hyperlipidemia, mixed - ICD9: 272.2, ICD10: E78.2 - Control undetermined, due for labs - Continue current medications - Counseled on healthy diet and regular exercise Follow up in 6 months for wellness. Sooner prn. Aziza Thompson PA-C UPDATED HISTORY AND PHYSICAL EXAMINATION SERVICE DATE: 01/22/2023 SERVICE TIME: 12:51 PM PHYSICAL EXAM MUST BE COMPLETED ON ADMISSION The History and Physical (completed in the past 30 days) has been reviewed and the patient has beenexamined. The contents accurately reflect the patient's condition with the following additions or revisions since the H&P was completed. Examination indicates no changes. This H&P can be found in the attached. SIGNATURE: Hugh Cole III, MD PATIENT NAME: Lillian Velazquez DATE: January 22, 2023 TIME: 12:51 PM documented in this encounterK[facility]09-28-[facility] History of Present illness Narrative* Quoc Mccracken, PT - 01/15/2023 2:57 PM EDT Episode Visit Count: 8 Therapist That Will Accept/Oversee The Plan Of Care: Quoc Mccracken Start of Care Date: 08/29/22 Onset Date: 06/29/22 Plan of Care Certification Date: 12/11/22 Next Certification Due Date: 01/22/23 Patient Identified by Name and Date of : Yes REHABILITATION AND SPORTS THERAPY PHYSICAL THERAPY DISCONTINUANCE OF CARE PLAN OF CARE UPDATE: Assessment: Lillian Velazquez is discontinued from Physical Therapy services due to Patient/Clinicianmutual decision to discontinue current plan of care.. Patient was seen for 8 visits from Start of Care Date: 08/29/22 to 01/15/2023 and treatment included: Therapeutic exercise, Self-skilled nursing management, and Patient/Family/Caregiver Education. Goals updated 01/15/2023 Goals for Episode of Care: created on 08/29/22 through 10/24/22 Pt will demo 4/5 glute med strength on the R for improved gait and decreased pain - Met Pt will be able to perform gardening with 1/10 pain or less in 8 weeks Progressing, will continue -Progressed Pt will demo normal lumbar flexion without symptoms in 8 weeks or less - Progressing, will continue Normal gait. - MET Patient Goals: Decrease the pain SUBJECTIVE: Feel that she has been able to recover quickly. More good days vs bad. Sitting for a long period of time she can get stiff. Patient Goals: Decrease the pain Functional Limitations: sleeping Prior Level of Function: Independent without limitations Intake Information: Prescription present Previous Treatment: Physical Therapy , Heat , NSAIDs Pain: Pain Pain Location: Low Back/Lumbar Spine- Midline Post Treatment Pain Post Treatment Pain Location: Low Back/Lumbar Spine - Right PROMIS Scales Higher is Better 01/15/2023 12/01/2022 10/07/2022 Phys Func - Score 50 (within normal limits) 42 (mild dysfunction) - Phys Func - Percentile 50 % 21 % - Self-Eff Symptom - Score 51 (Average) 43 (Average) 46 (Average) Self-Eff Symptom - Percentile 54 % 24 % 34 % T-scores: mean of general population = 50. 5 points is clinically meaningfully difference Percentiles provide an indication of how the patient's score ranks in relation to the general population. Higher percentile rankings indicate better function/quality of life. 50th percentile is the average of the general population and indicates half of respondents had a worse score. OBJECTIVE MEASURES WITH LEVEL OF FUNCTION: Lumbar Spine AROM Lumbar Flexion: Normal Lumbar Extension: Normal Lumbar R Side-Bend: Normal, Increased pain Lumbar L Side-Bend: Normal, End range pain Lumbar R Rotation: Normal Lumbar L Rotation: Normal LE AROM R LE AROM: WNL L LE AROM: WNL LE Strength R LE Strength: 4+/5 L LE Strength: 4+/5 Taught R levator scapulae TREATMENT: Therapeutic Exercise: 1: All objective measures taken this session 2: Discussed finalized HEP moving forward 3: Levator scapula stretch 2 x 30 sec Skilled Intervention: Patient was educated in proper exercise technique and purpose for exercises. Skilled judgment was provided in selection of appropriate interventions. Provided written instruction for home exercise program to facilitate proper performance and compliance. Correct performance of therapeutic exercises was facilitated with verbal and visual cuing. Billing Total Session Time (minutes): 44 Session Start Time : 1459 Session Stop Time : 1543 Quoc Mccracken PT documented in this encounterK[facility]09-11-2023 Miscellaneous Notes* Telephone Encounter - Clarissa Feliciano LPN - 12/29/2022 11:05 AM EDT Patient was rescheduled multiple times, please resend script Pended, Thank you. Clarissa Feliciano LPN documented in this encounterK[facility]09-08-2023 Miscellaneous Notes* Telephone Encounter - Aziza Thompson PA-C - 12/26/2022 11:55 AM EDT The following approved medication requests have been transmitted electronically. Requested Prescriptions Signed Prescriptions Disp Refills gabapentin (NEURONTIN) 300 mg capsule 180 capsule 1 Sig: Take 1 capsule by mouth twice daily for 180 days. Authorizing Provider: AZIZA THOMPSON PA-C * Telephone Encounter - New Renee LPN - 12/26/2022 7:41 AM EDT Received fax from [facility] stating there are tow sets of instructions on pt's rx for gabapentin 300 mg. One spenser 1 capsule twice daily for 180 days and the other says one tablet daily. Fax on your desk. Spoke with pt and she confirms that dosage was upped to twice daily at ov d/t her back pain. Please review pended rx. New Renee LPN documented in this encounterKet[facility]09-07-2023 Miscellaneous Notes* Telephone Encounter - Cayla Ni RN - 12/25/2022 8:29 AM EDT Pt called and is notified of providers results and instructions. Pt voices understanding. Cayla Ni RN * Telephone Encounter - Aziza Thompson PA-C - 12/25/2022 8:00 AM EDT Let patient know that her labs all look really good. Ldl is down to 104 from 166. Goal is under 100. I'm not going to make changes with medication yet. Continue with good diet. All other labs were normal. Thanks. Aziza Thompson PA-C documented in this encounterKettering [facility]09-06-2023 History of Present illness Narrative* Aziza Thompson PA-C - 12/24/2022 12:20 PM EDT Chief Complaint Patient presents with: Recheck HPI Lillian Velazquez is a 67 year old female who presents here today for Chronic Medical Conditions.. Patient with hx of HTN, hypothyroidism, hyperlipidemia, elevated glucose, and those as below. Patient overall doing okay. Fell back in june and still has ongoing intermittent pains related to that. Mostly R sided low back pain with radiation into leg. still doing Physical Therapy. Past medical history, appointments, medications, allergies reviewed. 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 Primary insomnia 11/01/2021 RLS (restless legs syndrome) 11/01/2021 On gabapentin Previous Surgical History PAST SURGICAL HISTORY Procedure Laterality Date CYST/MOLE REMOVAL Left 1977 benign cyst- Left breast PAST SURGICAL HISTORY OF 2018 cervical fusion PAST SURGICAL HISTORY OF 2017 right shoulder decompression PAST SURGICAL HISTORY OF Bilateral foot surgery THYROIDECTOMY 10/2018 due to goiter, no cancer TONSILLECTOMY HX 8 yo Family History FAMILY HISTORY Problem Relation Age of Onset Cancer Mother Lung? other (a. fib) Father other (TIA) Father Hyperlipidemia Father Hypertension Father Hypertension Sister Stroke Maternal Grandmother Diabetes Maternal Grandmother Ischemic Heart Disease Maternal Grandfather Heart disease Maternal Grandfather Stroke Paternal Grandmother Heart Attack Paternal Grandfather Ovarian cancer Maternal Aunt Patient Allergies ALLERGIES Allergen Reactions Augmentin [Amoxicil* GI Upset Current Medications Current Outpatient Medications on File Prior to Visit Medication Sig pravastatin (PRAVACHOL) 20 mg tablet Take 1 tablet by mouth daily at bedtime. gabapentin (NEURONTIN) 300 mg capsule Take 1 capsule by mouth once daily for 180 days. Take one tablet daily levothyroxine (SYNTHROID) 88 mcg tablet Take 1 tablet by mouth daily before breakfast. Take one tablet daily before breakfast traZODone (DESYREL) 150 mg tablet Take 1 tablet by mouth daily at bedtime. losartan (COZAAR) 25 mg tablet Take 1 tablet by mouth once daily. Take one tablet daily busPIRone (BUSPAR) 5 mg tablet Take 1 tablet by mouth three times daily. betamethasone dipropionate (DIPROSONE) 0.05 % cream Apply to affected area twice daily. No current facility-administered medications on file prior to visit. Social History Social History Tobacco Use Smoking status: Never Smokeless tobacco: Never Vaping Use Vaping Use: Never used Substance Use Topics Alcohol use: Yes Alcohol/week: 5.0 standard drinks of alcohol Types: 5 Cans of beer per week Drug use: Never Review of Symptoms REVIEW OF SYSTEMS GENERAL: No weight loss, malaise or fevers NECK: Negative for lumps, goiter, pain and significant neck swelling RESPIRATORY: Negative for cough, hemoptysis, wheezing, COPD, dyspnea or shortness of breath CARDIOVASCULAR: Negative for chest pain, leg swelling, hypertension, CHF or palpitations NEURO: No history of headaches, syncope, paralysis, seizures or tremors EXAM: BP 100/80 (BP Site: Right Arm, BP Position: Sitting, BP Cuff Size: Regular Adult) Pulse 60 Temp36.5 C (97.7 F) Resp 16 Wt 54 kg (119 lb) BMI 21.77 kg/m General Appearance: Well appearing, alert, in no acute distress, well-hydrated, well nourished.. Neck: Supple, no adenopathy; thyroid symmetric, normal size, no bruits. Lungs: Lungs clear to auscultation. No wheezing, rhonchi, rales.. Heart: RRR without murmur, gallop, or rubs. No ectopy. Extremities: No deformities, edema, skin discoloration, clubbing or cyanosis. Good capillary refill. . Peripheral Pulses: Normal. Health Maintenance List DTAP,TDAP,TD(1 - Tdap) Never done COLORECTAL CANCER SCREENING Never done BONE DENSITY Never done INFLUENZA(1) due on 12/19/2022 MAMMOGRAM due on 01/15/2023 SHINGRIX VACCINE(1 of 2) due on 06/20/2023 COVID-19 VACCINE(4 - Pfizer series) due on 06/20/2023 BP CONTROLLED (<130/80) due on 06/20/2023 ANNUAL PCP TEAM CHRONIC DISEASE VISIT due on 12/25/2023 DIABETES SCREEN due on 06/19/2025 LIPID SCREEN due on 06/20/2027 ADVANCE DIRECTIVE DISCUSSION Completed DEPRESSION ASSESSMENT Completed PNEUMOCOCCAL: 65+ Completed PAP TESTING Discontinued HEPATITIS C SCREENING Discontinued Data reviewed Component Latest Ref Rng & Units 06/19/2022 Glucose 74 - 99 mg/dL 94 BUN 7 - 21 mg/dL 11 Creatinine 0.58 - 0.96 mg/dL 0.97 (H) Sodium 136 - 144 mmol/L 141 Potassium 3.7 - 5.1 mmol/L 4.0 Chloride 97 - 105 mmol/L 102 CO2 22 - 30 mmol/L 28 Anion Gap 9 - 18 mmol/L 11 Calcium 8.5 - 10.2 mg/dL 9.3 eGFR >=60 mL/min/1.73m 65 Total Cholesterol, Nonfasting <200 mg/dL 261 (H) Triglycerides, Nonfasting <150 mg/dL 164 (H) HDL Cholesterol, Nonfasting >39 mg/dL 62 LDL Cholesterol, Nonfasting <100 mg/dL 166 (H) Non HDL Cholesterol, Nonfasting <130 mg/dL 199 (H) VLDL Cholesterol, Nonfasting <30 mg/dL 33 (H) Total Chol/HDL Ratio, Nonfasting <5.10 mg/dL 4.21 LDL/HDL Ratio, Nonfasting <2.54 mg/dL 2.68 (H) TSH 0.270 - 4.200 mIU/L 1.940 ASSESSMENT/PLAN: 1. Postoperative hypothyroidism - ICD9: 244.0, ICD10: E89.0 (primary diagnosis) - Instructed patient on importance of taking on an empty stomach either first thing in the morning or at bedtime. - check TSH today - continue current dose of Synthroid - CBC + DIFF - LIPID PANEL, NONFASTING - TSH BLD 2. Elevated blood sugar - ICD9: 790.29, ICD10: R73.9 Check: - HGB A1C - CBC + DIFF - URINALYSIS, WITH MICROSCOPIC - LIPID PANEL, NONFASTING 3. Hypertension, essential - ICD9: 401.9, ICD10: I10 - Controlled - Continue current medications - Recommend home blood pressure monitoring, to bring results to next visit - Encouraged sodium restriction, DASH or Mediterranean diet - Recommend regular aerobic exercise - CBC + DIFF - URINALYSIS, WITH MICROSCOPIC - COMP METABOLIC PANEL 4. Primary insomnia - ICD9: 307.42, ICD10: F51.01 stable - CBC + DIFF 5. Hyperlipidemia, mixed - ICD9: 272.2, ICD10: E78.2 - Control undetermined, due for labs - Continue current medications - Counseled on healthy diet and regular exercise Follow up in 6 months for wellness. Sooner prn. Aziza Thompson PA-C documented in this encounter[facility] History of Present illness Narrative* Quoc Mccracken, PT - 12/16/2022 2:53 PM EDT Episode Visit Count: 6 Therapist That Will Accept/Oversee The Plan Of Care: Quoc Mccracken Start of Care Date: 08/29/22 Onset Date: 06/29/22 Plan of Care Certification Date: 12/11/22 Next Certification Due Date: 01/22/23 Patient Identified by Name and Date of : Yes REHABILITATION AND SPORTS THERAPY PHYSICAL THERAPY TREATMENT NOTE ASSESSMENT: Lillian Velazquez tolerated the session with fatigue and expected muscle soreness. She demonstrated improvements in flexibility of lumbar spine after mobilizations. The patient will continue to benefit from ongoing skilled physical therapy to progress toward set goals. PLAN FOR NEXT VISIT: Asses mobility of hips. Consider neutral spine strengthening SUBJECTIVE: Pt reports that she is hurting today. Pt reports that she makes some progress and then takes some steps backwards. Pt was working in garden last night and not sure if she did something wrong. Pt did some stretches last night and unsure if they helped. Pt states bringing RLE into chest really feels good. Pain: Pain Pain Level: 5 Pain Location: Low Back/Lumbar Spine- Midline Post Treatment Pain Post Treatment Pain Level: No Change Post Treatment Pain Location: Low Back/Lumbar Spine - Right OBJECTIVE MEASURES WITH LEVEL OF FUNCTION: TTP L4-L5 TREATMENT: Therapeutic Exercise: 2: SKTC 3x30 seconds R 3: Supine figure 4 stretch 3x30 seconds RLE 4: QL stretch 3x30 seconds 5: *extensive review of HEP and what exercises are apporpriate at this time. Skilled Intervention: Patient was educated in proper exercise technique and purpose for exercises. Reviewed and educated patient on additions/changes for home exercise program as above (*). Skilled judgment was provided in selection of appropriate interventions. Correct performance of therapeutic exercises was facilitated with verbal and visual cuing. Manual Therapy: 1: PA grade II mobs at L4 and L5 3x10 2: Lateral mobilization to the R at L4 5x10 Skilled Intervention: Manual skills to improve joint mobility, ROM, and decrease pain. Utilized anatomy knowledge of the therapist, and assessment of patient's response to intervention. Self-Group Home Management: 1: *Education on use of lumbar towel roll for increased postural awareness, but not making towell roll too big so it doesn't make her go into too much lumbar extension Skilled Intervention: Skilled judgment in the selection of proper modification for activity of daily living/home management based on clinical presentation, deficits, and needs. Billing Therapeutic Exercise Treatment Minutes: 23 Manual TherapyTreatment Minutes: 14 Self-Care/Home Management Treatment Minutes: 3 Total Treatment Time Minutes (timed/untimed): 40 Session Start Time : 1450 Session Stop Time : 1530 TAIWO Truong PT documented in this encounterK[facility]08-24-[facility] History of Present illness Narrative* Quoc Mccracken PT - 12/11/2022 1:59 PM EDT Episode Visit Count: 5 Therapist That Will Accept/Oversee The Plan Of Care: Quoc Mccracken Start of Care Date: 08/29/22 Onset Date: 06/29/22 Plan of Care Certification Date: 12/11/22 Next Certification Due Date: 01/22/23 Patient Identified by Name and Date of : Yes REHABILITATION AND SPORTS THERAPY PHYSICAL THERAPY PROGRESS REPORT PLAN OF CARE UPDATE: Assessment: Lillian Velazquez demonstrates difficulty with prolonged sitting, vacuuming and mopping. . She has progressed toward goals. Patient continues to present with impairments in independence in exercise, joint mobility, overall function, and range of motion that interfere with sleeping . Current prognosisis Good due to: current objective clinical presentation, good overall health status . Hypomobility in the L-spine. She will benefit from continued skilled therapy services to meet the updated goals for this plan of care as noted below. Goals updated 12/11/2022 Goals for Episode of Care: created on 08/29/22 through 10/24/22 Pt will demo 4/5 glute med strength on the R for improved gait and decreased pain - Not assessed Pt will be able to perform gardening with 1/10 pain or less in 8 weeks Progressing, will continue Pt will demo normal lumbar flexion without symptoms in 8 weeks or less - Progressing, will continue Normal gait. - Progressing will continue Patient Goals: Decrease the pain Patient Goals: Decrease the pain Planned Interventions, Frequency, and Duration: 1x/week, 4 weeks Total Number of Visits Planned: 4 Patient to be seen for Therapeutic exercise (51293), Neuromuscular re-education (22175), Manual therapy (79616), Therapeutic activities (53879), Self-skilled nursing management ([id number]), Patient/Family/Caregiver Education, Body Mechanics Training PLAN FOR NEXT VISIT: Assess mobility of the hips. Could trial bridges maintaining a nuetral spine as ext in the back can aggravate symptoms. SUBJECTIVE: Would like to continue with therapy. Has made about 50-60% improvement. If laying on the back it can make the pain worse. Doing the exercises sporadically because she has been so busy. Patient Goals: Decrease the pain Functional Limitations: sleeping Prior Level of Function: Independent without limitations Intake Information: Prescription present Previous Treatment: Physical Therapy , Heat , NSAIDs Pain: Pain Pain Location: Low Back/Lumbar Spine- Midline PROMIS Scales Higher is Better 12/01/2022 10/07/2022 09/22/2022 Phys Func - Score 42 (mild dysfunction) - 41 (mild dysfunction) Phys Func - Percentile 21 % - 18 % Self-Eff Symptom - Score 43 (Average) 46 (Average) - Self-Eff Symptom - Percentile 24 % 34 % - T-scores: mean of general population = 50. 5 points is clinically meaningfully difference Percentiles provide an indication of how the patient's score ranks in relation to the general population. Higher percentile rankings indicate better function/quality of life. 50th percentile is the average of the general population and indicates half of respondents had a worse score. OBJECTIVE MEASURES WITH LEVEL OF FUNCTION: Lumbar Spine AROM Lumbar Flexion: Normal (Feels stiff) Lumbar Extension: Normal Lumbar R Side-Bend: Minimal limitation, End range pain Lumbar L Side-Bend: Minimal limitation, End range pain Lumbar R Rotation: Normal Lumbar L Rotation: Normal LE AROM Tested?: Yes Spine Joint Mobility Joint Mobility - L2: Hypomobile Joint Mobility - L3: Hypomobile Joint Mobility - L4: Hypomobile TREATMENT: Therapeutic Exercise: 2: Basking seal x 5 holding 5 sec 3: Prone opp arm/leg lift 3 x 10 4: Quadruped hip ext alternating 2 x 10 reps used a yard stick on lower spine for biofeedback Skilled Intervention: Patient was educated in proper exercise technique and purpose for exercises. Provided written instruction for home exercise program to facilitate proper performance and compliance. Correct performance of therapeutic exercises was facilitated with verbal and visual cuing. Manual Therapy: 1: PA grade 3 mobs at L1 2 x 20 2: Opening grade 4 x 10 in sidelying of L L4/5 Skilled Intervention: Manual skills to improve joint mobility, ROM, and decrease pain. Utilized anatomy knowledge of the therapist, and assessment of patient's response to intervention. Billing Therapeutic Exercise Treatment Minutes: 24 Manual TherapyTreatment Minutes: 30 Total Treatment Time Minutes (timed/untimed): 54 Session Start Time : 1400 Session Stop Time : 1454 Quoc Mccracken PT documented in this encounterK[facility]08-11-2023 Miscellaneous Notes* Telephone Encounter - Remy Perez MD - 11/28/2022 12:51 PM EDT The following approved medication requests have been transmitted electronically. Requested Prescriptions Signed Prescriptions Disp Refills pravastatin (PRAVACHOL) 20 mg tablet 90 tablet 1 Sig: Take 1 tablet by mouth daily at bedtime. gabapentin (NEURONTIN) 300 mg capsule 90 capsule 1 Sig: Take 1 capsule by mouth once daily for 180 days. Take one tablet daily Remy Perez MD * Telephone Encounter - New Renee LPN - 11/28/2022 11:23 AM EDT Pt requesting refills. Via Last refill gabapentin 09/12/22 Qty: 90 with 1 refill Last refill 06/30/22 Qty: 90 with 1 refill [facility] 08/18/22 NOV 12/24/22 New Renee LPN documented in this encounterK[facility]06-27-2023 History of Present illness Narrative* Quoc Mccracken PT - 10/14/2022 3:02 PM EDT Episode Visit Count: 4 Therapist That Will Accept/Oversee The Plan Of Care: Quoc Mccracken Start of Care Date: 08/29/22 Onset Date: 06/29/22 Plan of Care Certification Date: 10/07/22 Next Certification Due Date: 11/11/22 Patient Identified by Name and Date of : Yes REHABILITATION AND SPORTS THERAPY PHYSICAL THERAPY TREATMENT NOTE ASSESSMENT: Lillian Velazquez tolerated the session with no issues. She demonstrated improvements in lumbar ROM after MT performed. The patient will continue to benefit from ongoing skilled physical therapy to progress toward set goals. PLAN FOR NEXT VISIT: Lumbar mobility exercise and extensor strengthening SUBJECTIVE: Patient Reason for Visit: Pt thinks she is doing a lot better. Still some tightness in the one area. The stretches are helping. She is not doing them extremely consistently but she can feel they are helpful. Pain: Pain Pain Level: 0 Pain Location: Low Back/Lumbar Spine- Midline OBJECTIVE MEASURES WITH LEVEL OF FUNCTION: Pain with end range ext improved with MT TREATMENT: Therapeutic Exercise: 2: Cat pose x 15 reps 3: Prone opp arm/leg lift 3 x 10 Skilled Intervention: Patient was educated in proper exercise technique and purpose for exercises. Correct performance of therapeutic exercises was facilitated with verbal and visual cuing. Manual Therapy: 1: PA grade 3 mobs at L1 2 x 20 2: PA mobs at L2 grade 3 x 20 x 2 3: Distraction with forearms at L spine after STM over lumbar paraspinals x 3 min each side Skilled Intervention: Manual skills to improve joint mobility, ROM, and decrease pain. Utilized anatomy knowledge of the therapist, and assessment of patient's response to intervention. Billing Therapeutic Exercise Treatment Minutes: 18 Manual TherapyTreatment Minutes: 25 Total Treatment Time Minutes (timed/untimed): 43 Quoc Mccracken PT documented in this encounterK[facility]06-06-[facility] History of Present illness Narrative* Quoc Mccracken PT - 09/23/2022 2:54 PM EDT Episode Visit Count: 2 Therapist That Will Accept/Oversee The Plan Of Care: Quoc Mccracken Start of Care Date: 08/29/22 Onset Date: 06/29/22 Plan of Care Certification Date: 08/29/22 Next Certification Due Date: 10/03/22 Patient Identified by Name and Date of : Yes REHABILITATION AND SPORTS THERAPY PHYSICAL THERAPY TREATMENT NOTE ASSESSMENT: Lillian Velazquez tolerated the session with decreased symptoms and expected muscle soreness. She demonstrated improvements in technique with bridging. The patient will continue to benefit from ongoing skilled physical therapy to progress toward set goals. PLAN FOR NEXT VISIT: Continue with STM as needed SUBJECTIVE: Patient Reason for Visit: Pt reports that she is lagging behind on some of the movement. Pt reports that bridging feels good. Pt states trrying self massage with ball at home and feels that she aggrevated a nerve and discontinued the self massage. Pt states that doing housewokr and gardening make symptoms worse and are painful. Pain: Pain Pain Level: 6 Pain Location: Low Back/Lumbar Spine- Midline Frequency: With movement Post Treatment Pain Post Treatment Pain Level: Better Post Treatment Pain Location: Low Back/Lumbar Spine - Right, Low Back/Lumbar Spine- Midline OBJECTIVE MEASURES WITH LEVEL OF FUNCTION: TREATMENT: Therapeutic Exercise: 1: Supine SKTC 3x30 seconds RLE 2: Supine piriformis stretch 3x30 seconds R 3: Bridging 2x10 Skilled Intervention: Patient was educated in proper exercise technique and purpose for exercises. Skilled judgment was provided in selection of appropriate interventions. Correct performance of therapeutic exercises was facilitated with verbal and visual cuing. Manual Therapy: 1: STM with foam roller to R glute and low back x 12 minutes 2: *Reviewed self massage with lacrosse ball in pillow case 3: Trigger point release to R piriformis 5 x 20-30 second holds Skilled Intervention: Manual skills to improve joint mobility, ROM, and decrease pain. Utilized anatomy knowledge of the therapist, and assessment of patient's response to intervention. Billing Therapeutic Exercise Treatment Minutes: 25 Manual TherapyTreatment Minutes: 20 Total Treatment Time Minutes (timed/untimed): 45 TAIWO Truong PT documented in this encounterK[facility]05-12-20[facility] History of Present illness Narrative* Quoc Mccracken PT - 08/29/2022 1:42 PM EDT Episode Visit Count: 1 Therapist That Will Accept/Oversee The Plan Of Care: Quoc Mccracken Start of Care Date: 08/29/22 Onset Date: 06/29/22 Plan of Care Certification Date: 08/29/22 Next Certification Due Date: 10/03/22 Patient Identified by Name and Date of : Yes REHABILITATION AND SPORTS THERAPY PHYSICAL THERAPY EVALUATION PLAN OF CARE: Assessment: Lillian Velazquez presents with chief complaint of LBP that interferes with sleeping . She presents with impairments in independence in exercise, strength, and symptom management. PROMIS (Patient-Reported Outcomes Measurement Information System) scores were reviewed and all domains identified as within normal limits. Prognosis for therapy is Good due to: current objective clinical presentation, good overall health status . Pt demonstrates pain with palpation to the R glute med which refers pain down the RLE. She will benefit from skilled therapy services to meet the goals established for this plan of care as noted below. Goals for Episode of Care: created on 08/29/22 through 10/24/22 Pt will demo 4/5 glute med strength on the R for improved gait and decreased pain Pt will demo normal lumbar flexion without symptoms in 8 weeks or less Normal gait. Patient Goals: Decrease the pain Planned Interventions, Frequency, and Duration: Current Frequency: 1x/week Duration: 4 weeks Total Number of Visits Planned: 4 Planned Treatment Interventions: Therapeutic exercise (58341), Neuromuscular re- education (77694), Manual therapy (54437), Therapeutic activities (52935), Self- skilled nursing management (13715), Patient/Family/Caregiver Education, Body Mechanics Training PLAN FOR NEXT VISIT: STM over R glute max and med. Gluteal loading as tolerated. Patient demonstrates good understanding of plan of care and treatment. The above goals and plan of care were discussed and agreed upon by patient/family. SUBJECTIVE: Lillian Velazquez is a 66 year old female seen today for Fall 2 months ago. The fall has really increased the LBP. Difficulty sleeping. Fell backwards, did not hit head. Sitting still is okbut moving around is painful. Bending forward is a problem and can get a catch. Patient Goals: Decrease the pain Functional Limitations: sleeping Prior Level of Function: Independent without limitations Intake Information: Prescription present Previous Treatment: Physical Therapy , Heat , NSAIDs Pain: Pain Pain Level: 8 Pain Location: Low Back/Lumbar Spine- Midline PROMIS Scales Higher is Better 08/26/2022 05/20/2022 03/23/2022 Phys Func - Score 45 (within normal limits) 41 (mild dysfunction) 39 (moderate dysfunction) Phys Func - Percentile 31 % 18 % 14 % Self-Eff Symptom - Score 41 (Average) 41 (Average) - Self-Eff Symptom - Percentile 18 % 18 % - T-scores: mean of general population = 50. 5 points is clinically meaningfully difference Percentiles provide an indication of how the patient's score ranks in relation to the general population. Higher percentile rankings indicate better function/quality of life. 50th percentile is the average of the general population and indicates half of respondents had a worse score. OBJECTIVE MEASURES WITH LEVEL OF FUNCTION: Spine Observations R Lumbar Spine Palpation Tenderness: Gluteals (R glute med which refers pain down the RLE) Lumbar Spine AROM Lumbar Flexion: Increased pain, Moderate limitation Lumbar Extension: Increased pain, Normal Lumbar R Side-Bend: Normal LE AROM Tested?: Yes LE AROM R LE AROM: WNL L LE AROM: WNL LE Flexibility Flexibility: Hamstring Flexibility R Hamstring Flexibility: WNL LE Strength R Hip ABduction: 3-/5 (Unable due to pain and weakness) R Hip External Rotation: 3+/5 L Hip External Rotation: 4/5 Functional Strength Trendelenburg: Positive on the R side Positive [place] finger on the R Education: Education Learning Preferences: Demonstration, Explanation, Performance, Printed Materials Barriers: None Learning/educational needs: Home exercise program, Plan of Care Education Provided: Yes, see treatment interventions for education provided Education Provided To: Patient Education Mode/Type: Demonstration, Explanation/Discussion, Literature/Printed Materials, Performance Response to Education/Teach Back: States/Identifies, Return Demonstration TREATMENT: PT Treatment Interventions: Therapeutic Exercise, Manual Therapy Evaluation Therapeutic Exercise: 1: Discussed therapy goals, exam findings, purpose of the HEP and anatomy of the gluteals. 2: Bridge x 10 3: Prone hip abd against belt (iso) x 10 reps Skilled Intervention: Patient was educated in proper exercise technique and purpose for exercises. Correct performance of therapeutic exercises was facilitated with verbal and visual cuing. Manual Therapy: 1: Discussed self massage with technique of ball vs wall. Discussed proper duration and pressure. 2: Self massage on wall with tennis ball x 3 min then with lacrosse ball x 3 min (lacrosse ball preferred) Skilled Intervention: Manual skills to improve joint mobility, ROM, and decrease pain. Utilized anatomy knowledge of the therapist, and assessment of patient's response to intervention. Billing * Evaluation Low Complexity: 1 Unit Therapeutic Exercise Treatment Minutes: 15 Manual TherapyTreatment Minutes: 8 Total Treatment Time Minutes (timed/untimed): 48 Quoc Mccracken PT documented in this encounterK[facility]05-01-2023 Instructions* Patient Instructions* Rupinder Goss APRN.CNP - 08/18/2022 1:44 PM EDT Schedule with PT Follow up with Aziza as scheduled. documented in this encounterK[facility]05-01-2023 History of Present illness Narrative* Rupinder Goss APRN.CNP - 08/18/2022 1:33 PM EDT Chief Complaint Patient presents with: Follow Up HPI Lillian Velazquez is a 66 year old female who presents here today for Above Complaints.. Patient presents for medication follow up. Patient fell down the steps in her home approximately 6 weeks ago. After recovering from her fall patient voiced anxiety regarding her home and going down or near the steps she fell down. Patient was initiated on buspar 5mg TID as needed and encouraged to seek out counseling. Patient reports that she is currently feeling better and is much improved from prior visit. Patientreports she has been talking to her friends which has been helpful. Patient reports she has not been taking the Buspar regularly and feels good without it. Past medical history, appointments, medications, allergies reviewed. 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 Primary insomnia 11/01/2021 RLS (restless legs syndrome) 11/01/2021 On gabapentin Previous Surgical History PAST SURGICAL HISTORY Procedure Laterality Date CYST/MOLE REMOVAL Left 1977 benign cyst- Left breast PAST SURGICAL HISTORY OF 2018 cervical fusion PAST SURGICAL HISTORY OF 2017 right shoulder decompression PAST SURGICAL HISTORY OF Bilateral foot surgery THYROIDECTOMY 10/2018 due to goiter, no cancer TONSILLECTOMY HX 8 yo Family History FAMILY HISTORY Problem Relation Age of Onset Cancer Mother Lung? other (a. fib) Father other (TIA) Father Hyperlipidemia Father Hypertension Father Hypertension Sister Stroke Maternal Grandmother Diabetes Maternal Grandmother Ischemic Heart Disease Maternal Grandfather Heart disease Maternal Grandfather Stroke Paternal Grandmother Heart Attack Paternal Grandfather Ovarian cancer Maternal Aunt Patient Allergies ALLERGIES Allergen Reactions Augmentin [Amoxicil* GI Upset Current Medications Current Outpatient Medications on File Prior to Visit Medication Sig keTORolac (TORADOL) 10 mg tablet Take 1 tablet by mouth every 6 hours as needed. busPIRone (BUSPAR) 5 mg tablet Take 1 tablet by mouth three times daily. oxyCODONE-acetaminophen (PERCOCET) 5-325 mg tablet Take 1 tablet by mouth every 8 hours as needed. gabapentin (NEURONTIN) 300 mg capsule Take 1 capsule by mouth once daily for 180 days. Take one tablet daily pravastatin (PRAVACHOL) 20 mg tablet Take 1 tablet by mouth daily at bedtime. cefADROxil (DURICEF) 500 mg capsule Take 1 capsule by mouth twice daily. cyclobenzaprine (FLEXERIL) 10 mg tablet Take 1 tablet by mouth three times daily as needed for muscle spasm. levothyroxine (SYNTHROID) 88 mcg tablet Take 1 tablet by mouth daily before breakfast. Take one tablet daily before breakfast traZODone (DESYREL) 150 mg tablet Take 1 tablet by mouth daily at bedtime. losartan (COZAAR) 25 mg tablet Take 1 tablet by mouth once daily. Take one tablet daily baclofen (LIORESAL) 10 mg tablet Take 1 tablet by mouth three times daily as needed (muscle spasms). betamethasone dipropionate (DIPROSONE) 0.05 % cream Apply to affected area twice daily. mupirocin (BACTROBAN) 2 % ointment Apply to affected area three times daily. (Patient taking differently: Apply to affected area three times daily. As needed) No current facility-administered medications on file prior to visit. Social History Social History Tobacco Use Smoking status: Never Smokeless tobacco: Never Vaping Use Vaping Use: Never used Substance Use Topics Alcohol use: Yes Alcohol/week: 5.0 standard drinks Types: 5 Cans of beer per week Drug use: Never Review of Symptoms REVIEW OF SYSTEMS SEE HPI EXAM: BP 118/70 Pulse 86 Resp 14 Wt 56.2 kg (124 lb) BMI 22.68 kg/m General Appearance: Well appearing, alert, in no acute distress, well-hydrated, well nourished.. Health Maintenance List DTAP,TDAP,TD(1 - Tdap) Never done COLORECTAL CANCER SCREENING Never done BONE DENSITY Never done SHINGRIX VACCINE(1 of 2) due on 06/20/2023 COVID-19 VACCINE(4 - Booster for Pfizer series) due on 06/20/2023 MAMMOGRAM due on 01/15/2023 ANNUAL PCP TEAM CHRONIC DISEASE VISIT due on 07/15/2023 BP CONTROLLED (<130/80) due on 07/15/2023 DIABETES SCREEN due on 06/19/2025 LIPID SCREEN due on 06/20/2027 INFLUENZA Completed ADVANCE DIRECTIVE DISCUSSION Completed DEPRESSION ASSESSMENT Completed PNEUMOCOCCAL: 65+ Completed HEPATITIS C SCREENING Discontinued HIV SCREENING Discontinued ASSESSMENT/PLAN: 1. Fall (on) (from) unspecified stairs and steps, subsequent encounter - ICD9: V58.89, E880.9, ICD10: W10.9XXD -D/C buspar, no anxiety symptoms at this time. -CONSULT TO PT Rupinder Goss APRN.CNP documented in this encounterK[facility]30[facility]23 Miscellaneous Notes* Telephone Encounter - Anabelle Gomes Cma - 07/17/2022 12:01 PM EDT Patient active on [employer]- message sent Anabelle Goems Cma * Telephone Encounter - Rupinder Goss APRN.CNP - 07/17/2022 11:19 AM EDT Please let patient know her lumbar xray shows degenerative changes. There are no fractures or acutefindings noted. documented in this encounterK[facility]03-27-2023 Miscellaneous Notes* Telephone Encounter - RANJANA Miramontes - 07/14/2022 2:54 PM EDT Behavioral Health Social Work Progress Note Patient identified for [facility] from: PCP Reason for referral: Resources Behavioral Health Resources: Psychology - talk therapy [facility] encounter type: Telephone Encounter, [facility] Message Attempts to Outreach: 1 attempt Referral made: Psychology - External, Psychology - Internal Psychology-Internal referral type: Therapy Psychology-External referral type: Therapy Reason for external referral: Wait times at [facility] too long Final Disposition: Resources given Patient Discharged?: Yes Patient reported that caregiver was able to meet their needs today?: Yes [facility] placed telephone call at the request of the PCP to discuss behavioral health needs and providereferrals for outpatient support. Patient looking for counseling resources due to anxiety. Will send the following to her MyChart for review: [facility] [address] [place] [address] [facility] [address] [place] [address] *counseling and psychiatry [facility] [employer] [facility] [address] [place] [address] [id number] [place] [address] [facility] [address] [place] [address] [facility] [address] [place] [address] RANJANA Miramontes, ACM-SW July 14, 2022 documented in this encounterKet[facility]03-27-2023 History of Present illness Narrative* Mari Alicea, RT(R) - 07/14/2022 2:50 PM EDT Radiology Service Progress Note PATIENT NAME: Lillian Velaqzuez DATE OF SERVICE: July 14, 2022 TIME: 2:59 PM PATIENT IDENTITY VERIFICATION COMPLETED USING TWO (2) IDENTIFIERS: Name and Date of confirmedby patient verbally. FALL SCREENING: Has the patient had 2 falls in the last year or 1 fall with injury or currently using an Ambulatory Assistive Device (Walker, Cane, Wheelchair, Crutches, etc.)? No PATIENT GENDER DATA: Female. status: : No status: NO. PATIENT RELEVANT IMPLANT DATA REVIEWED: Not Applicable RADIOLOGY DEPARTMENT: General X-ray: Exam(s) Completed: Spine X-Ray(s): Lumbar AP / LAT / L5-S1 PERIPHERAL IV DATA: Not applicable SIGNED BY: RT Marybeth(R) July 14, 2022 2:59 PM documented in this encounterKettering [facility]03-27-2023 Instructions* Patient Instructions* Rupinder Goss APRN.CNP - 07/14/2022 2:29 PM EDT Start buspar Complete lumbar xr Start toradol Follow up in 4 weeks documented in this encounterKet[facility]03-27-2023 History of Present illness Narrative* Rupinder Goss APRN.CNP - 07/14/2022 2:07 PM EDT Chief Complaint Patient presents with: Follow Up HPI Lillian Velazquez is a 66 year old female who presents here today for Above Complaints.. Patient presents for follow up for fall. Patient was seen 07/01 following an ER visit for a fall down the steps. Patient was seen by orthopedics due to shoulder xray that showed dislocation however she had surgery on this shoulder and was told her shoulder was not dislocated. Patient presents today for continued right lumbar pain over the inferior posterior rib cage. Past medical history, appointments, medications, allergies reviewed. 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 Primary insomnia 11/01/2021 RLS (restless legs syndrome) 11/01/2021 On gabapentin Previous Surgical History PAST SURGICAL HISTORY Procedure Laterality Date CYST/MOLE REMOVAL Left 1977 benign cyst- Left breast PAST SURGICAL HISTORY OF 2018 cervical fusion PAST SURGICAL HISTORY OF 2017 right shoulder decompression PAST SURGICAL HISTORY OF Bilateral foot surgery THYROIDECTOMY 10/2018 due to goiter, no cancer TONSILLECTOMY HX 8 yo Family History FAMILY HISTORY Problem Relation Age of Onset Cancer Mother Lung? other (a. fib) Father other (TIA) Father Hyperlipidemia Father Hypertension Father Hypertension Sister Stroke Maternal Grandmother Diabetes Maternal Grandmother Ischemic Heart Disease Maternal Grandfather Heart disease Maternal Grandfather Stroke Paternal Grandmother Heart Attack Paternal Grandfather Ovarian cancer Maternal Aunt Patient Allergies ALLERGIES Allergen Reactions Augmentin [Amoxicil* GI Upset Current Medications Current Outpatient Medications on File Prior to Visit Medication Sig oxyCODONE-acetaminophen (PERCOCET) 5-325 mg tablet Take 1 tablet by mouth every 8 hours as needed. gabapentin (NEURONTIN) 300 mg capsule Take 1 capsule by mouth once daily for 180 days. Take one tablet daily pravastatin (PRAVACHOL) 20 mg tablet Take 1 tablet by mouth daily at bedtime. cefADROxil (DURICEF) 500 mg capsule Take 1 capsule by mouth twice daily. cyclobenzaprine (FLEXERIL) 10 mg tablet Take 1 tablet by mouth three times daily as needed for muscle spasm. levothyroxine (SYNTHROID) 88 mcg tablet Take 1 tablet by mouth daily before breakfast. Take one tablet daily before breakfast traZODone (DESYREL) 150 mg tablet Take 1 tablet by mouth daily at bedtime. losartan (COZAAR) 25 mg tablet Take 1 tablet by mouth once daily. Take one tablet daily baclofen (LIORESAL) 10 mg tablet Take 1 tablet by mouth three times daily as needed (muscle spasms). betamethasone dipropionate (DIPROSONE) 0.05 % cream Apply to affected area twice daily. mupirocin (BACTROBAN) 2 % ointment Apply to affected area three times daily. (Patient taking differently: Apply to affected area three times daily. As needed) No current facility-administered medications on file prior to visit. Social History Social History Tobacco Use Smoking status: Never Smokeless tobacco: Never Vaping Use Vaping Use: Never used Substance Use Topics Alcohol use: Yes Alcohol/week: 5.0 standard drinks Types: 5 Cans of beer per week Drug use: Never Review of Symptoms REVIEW OF SYSTEMS SEE HPI EXAM: BP 120/74 Pulse 60 Resp 14 Wt 56.2 kg (124 lb) BMI 22.68 kg/m General Appearance: Well appearing, alert, in no acute distress, well-hydrated, well nourished.. Back:no pain to palpation of vertebrae, no muscle tenderness, reflexes are 2+ and symmetric, motor and sensory appear to be normal, negative SLR test, Pain with palpation over right 11th and 12th posterior rib. Health Maintenance List DTAP,TDAP,TD(1 - Tdap) Never done COLORECTAL CANCER SCREENING Never done BONE DENSITY Never done SHINGRIX VACCINE(1 of 2) due on 06/20/2023 COVID-19 VACCINE(4 - Booster for Pfizer series) due on 06/20/2023 MAMMOGRAM due on 01/15/2023 ANNUAL PCP TEAM CHRONIC DISEASE VISIT due on 07/02/2023 BP CONTROLLED (<130/80) due on 07/02/2023 DIABETES SCREEN due on 06/19/2025 LIPID SCREEN due on 06/20/2027 INFLUENZA Completed ADVANCE DIRECTIVE DISCUSSION Completed DEPRESSION ASSESSMENT Completed PNEUMOCOCCAL: 65+ Completed HEPATITIS C SCREENING Discontinued HIV SCREENING Discontinued ASSESSMENT/PLAN: 1. Fall (on) (from) unspecified stairs and steps, subsequent encounter - ICD9: V58.89, E880.9, ICD10: W10.9XXD - CONSULT TO PRIMARY CARE BEHAVIORAL HEALTH ADULT - KETOROLAC 10 MG TABLET - XR LUMBAR GENERAL 3V AP/LAT/L5-S1 - BUSPIRONE 5 MG TABLET Rupinder Goss APRN.INDUSTRIAL INSULATOR documented in this encounterKettering [facility]03-20-2023 History of Present illness Narrative* Villa Montoya MD - 07/07/2022 1:12 PM EDT Villa Montoya MD Department of Orthopaedics Orthopaedics [address] [facility] [address] Dept: [phone] Dept July 07, 2022 CHIEF COMPLAINT: Dislocation, New, and Pain of the Right Shoulder HPI Patient present to office 1 week 1 day following fall down 9 steps on to concrete. Patient present to ED at the time she was not complain of shoulder pain. Patient present to PCP for follow up Xray'swere taken Of right shoulder. AMB ROOMING INTAKE FLOWSHEET DATA Pain Pain Level: 6 Pain Location: Shoulder-Right Description: Aching, Stiffness Duration Amount of Time: 1 Duration Units: Weeks Frequency: Intermittent Intervention/Comfort measure: Medication Patient presents with: Right Shoulder - Dislocation, New, Pain iMssy HermanASHOK ASSESSMENT: M70.62 Trochanteric bursitis of left hip (primary encounter diagnosis) M25.511 Acute pain of right shoulder PLAN: She is already doing a bit better not really having much pain in the shoulder, furthermore her hip pain has been giving her more trouble. She had prior distal clavicle excision which makes her x-rayslook like a possible separation but is not. We will try an anti-inflammatory for the hip. FOLLOW UP INSTRUCTIONS: As needed Ms. Lillian Velazquez was advised as to contrast therapies and/or to take analgesics/anti-inflammatories as needed and all contraindications were reviewed. OBJECTIVE: Ms. Lillian Velazquez is a pleasant 66 year old in no apparent distress. Gen:There were no vitals taken for this visit. nl development, non obese, no deformities ENT: Normocephalic, normal hearing, moist mucosa CV: Pulses:Radial= 2+ and symmetric, capillary refill < 2 secs, no peripheral edema/varicosities Skin: no rash, bruising or lesions. Good turgor. Psych: cooperative and appropriate, alert and oriented x 3, good mood and affect. Musculoskeletal: Right shoulder with some very mild tenderness but not specifically at the AC joint rather over the anterior lateral corner of the shoulder. Mildly positive Neer and Wynne and signs. Good range of motion overall. Neurovascular exam intact. Some tenderness over the lateral hip. IMAGING: IMPRESSION: Questionable subluxation of the acromioclavicular joint, with mild degenerative changes. Coding Auditor: SAM Transcribe Date/Time: Jul 03 2022 8:36A Dictated by : TOYA DEL VALLE MD This examination was interpreted and the report reviewed and electronically signed by: TOYA DEL VALLE MD on Jul 03 2022 8:39AM EST Results-Findings * * *Final Report* * * DATE OF EXAM: Jul 01 2022 4:04PM WOX [id number] - XR SHLDR >/=3V AP/NE AP/OTHR RT / PROCEDURE REASON: Acute pain of right shoulder * * * * Physician Interpretation * * * * EXAM TITLE: XR SHLDR >/=3V AP/NE AP/OTHR RT EXAM DATE/TIME: 07/01/2022 4:04 PM COMPARISON: None. CLINICAL INDICATION/HISTORY: Acute shoulder pain. TECHNIQUE: AP, true AP and Y views of the right shoulder are presented FINDINGS: No acute fractures demonstrated. There is questionable subluxation of the acromioclavicular joint, with mild degenerative changes. Normal appearance of the glenohumeral joint. The acromiohumeral interval is maintained. The mineralization of the bones is normal. There is no significant soft tissue swelling. Others: There are degenerative changes from cervical spinal fusion. Supporting Subjective Information Below: Past Medical History: PAST MEDICAL HISTORY Diagnosis Date Elevated blood sugar 11/19/2021 History of COVID-19 11/01/2021 10/11/2021 Hypertension, essential 11/01/2021 Postoperative hypothyroidism 11/01/2021 Removed due to goiter. Primary insomnia 11/01/2021 RLS (restless legs syndrome) 11/01/2021 On gabapentin Past Surgical History: PAST SURGICAL HISTORY Procedure Laterality Date CYST/MOLE REMOVAL Left 1977 benign cyst- Left breast PAST SURGICAL HISTORY OF 2018 cervical fusion PAST SURGICAL HISTORY OF 2017 right shoulder decompression PAST SURGICAL HISTORY OF Bilateral foot surgery THYROIDECTOMY 10/2018 due to goiter, no cancer TONSILLECTOMY HX 8 yo Family History: FAMILY HISTORY Problem Relation Age of Onset Cancer Mother Lung? other (a. fib) Father other (TIA) Father Hyperlipidemia Father Hypertension Father Hypertension Sister Stroke Maternal Grandmother Diabetes Maternal Grandmother Ischemic Heart Disease Maternal Grandfather Heart disease Maternal Grandfather Stroke Paternal Grandmother Heart Attack Paternal Grandfather Ovarian cancer Maternal Aunt Social History: Social History Tobacco Use Smoking status: Never Smokeless tobacco: Never Vaping Use Vaping Use: Never used Substance Use Topics Alcohol use: Yes Alcohol/week: 5.0 standard drinks Types: 5 Cans of beer per week Drug use: Never Medications: Current Outpatient Medications Medication Sig oxyCODONE-acetaminophen (PERCOCET) 5-325 mg tablet Take 1 tablet by mouth every 8 hours as needed. gabapentin (NEURONTIN) 300 mg capsule Take 1 capsule by mouth once daily for 180 days. Take one tablet daily pravastatin (PRAVACHOL) 20 mg tablet Take 1 tablet by mouth daily at bedtime. cefADROxil (DURICEF) 500 mg capsule Take 1 capsule by mouth twice daily. cyclobenzaprine (FLEXERIL) 10 mg tablet Take 1 tablet by mouth three times daily as needed for muscle spasm. levothyroxine (SYNTHROID) 88 mcg tablet Take 1 tablet by mouth daily before breakfast. Take one tablet daily before breakfast traZODone (DESYREL) 150 mg tablet Take 1 tablet by mouth daily at bedtime. losartan (COZAAR) 25 mg tablet Take 1 tablet by mouth once daily. Take one tablet daily baclofen (LIORESAL) 10 mg tablet Take 1 tablet by mouth three times daily as needed (muscle spasms). betamethasone dipropionate (DIPROSONE) 0.05 % cream Apply to affected area twice daily. mupirocin (BACTROBAN) 2 % ointment Apply to affected area three times daily. (Patient taking differently: Apply to affected area three times daily. As needed) No current facility-administered medications for this visit. Allergies: Augmentin [Amoxicillin-Pot Clavulanate] ROS: General (negative for fatigue, malaise, weight loss/gain) HEENT (negative for headache, earache, recent vision changes, sinus pain, sore throat) Respiratory (no recent shortness of breath, hemoptysis) CV (negative for chest tightness, palpitations) Musculoskeletal (see HPI) Psych (no depression, anxiety) REFERRING PHYSICIAN: Consultation requested by Rupinder Goss for an opinion regarding Right shoulder injury. My final recommendations will be communicated back to the requesting physician by way of shared Medical record or letter to requesting physician via US mail. Rupinder Goss [address] [place] [address] Remy Perez MD [address] [facility] [address] Villa Montoya MD documented in this encounterKettering [facility]03-17-2023 Miscellaneous Notes* Telephone Encounter - Larissa Wakefield Ma - 07/04/2022 11:30 AM EDT Patient seen by Rupinder Goss on 07/01/22 for ED follow up. Routed to her to review and advise. Larissa Wakefield Ma documented in this encounterKettering [facility]03-16-2023 Miscellaneous Notes* Telephone Encounter - Anabelle Gomes Cma - 07/03/2022 12:36 PM EDT Patient notified and verbalized understanding Patient would like schedulers to call her to set up ortho appointment Anabelle Gomes Cma * Telephone Encounter - Rupinder Goss APRN.CNP - 07/03/2022 10:07 AM EDT Please let patient know that her xray does not show fracture but does show a misalignment. I would recommend follow up with orthopedics simba. documented in this encounterKettering [facility]03-15-2023 History of Present illness Narrative* Angi Mcguire MA - 07/02/2022 7:24 PM EDT Scan on 06/26/2022 1:26 PM by Alyssa Cullen: GEN SURG SURG KAROL PAPER Scan on 06/29/2022 2:44 PM by External Provider: CT Scan Scan on 06/29/2022 2:57 PM by External Provider: CT Scan Scan on 06/29/2022 3:11 PM by External Provider: X-ray Scan on 06/29/2022 3:14 PM by External Provider: X-ray Scan on 06/29/2022 3:15 PM by External Provider: X-ray Scan on 06/29/2022 3:16 PM by External Provider: X-ray Scan on 06/29/2022 4:22 PM by External Provider: CT Scan Scan on 06/29/2022 11:49 PM by External Provider: Consultation - Emergency Medicine Angi Mcguire MA documented in this encounterKettering [facility]03-14-2023 Instructions* Patient Instructions* Rupinder Goss APRN.CNP - 07/01/2022 3:42 PM EDT Continue current medications and treatments Follow up if no improvement or worsening symptoms documented in this encounterKettering [facility]03-14-2023 History of Present illness Narrative* Rupinder Goss APRN.CNP - 07/01/2022 3:16 PM EDT Chief Complaint Patient presents with: ER F/U HPI Lillian Velazquez is a 66 year old female who presents here today for Above Complaints.. Patient presents for ER follow up. Patient fell down the steps 06/29/[address] [facility]. All xray and CT imaging negative for acute findings. Patient states that she is very sore and stiff and feels worse today than yesterday in that respect. Patient states that she has right shoulder pain which she did not immediately notice. Past medical history, appointments, medications, allergies reviewed. 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 Primary insomnia 11/01/2021 RLS (restless legs syndrome) 11/01/2021 On gabapentin Previous Surgical History PAST SURGICAL HISTORY Procedure Laterality Date CYST/MOLE REMOVAL Left 1977 benign cyst- Left breast PAST SURGICAL HISTORY OF 2018 cervical fusion PAST SURGICAL HISTORY OF 2017 right shoulder decompression PAST SURGICAL HISTORY OF Bilateral foot surgery THYROIDECTOMY 10/2018 due to goiter, no cancer TONSILLECTOMY HX 8 yo Family History FAMILY HISTORY Problem Relation Age of Onset Cancer Mother Lung? other (a. fib) Father other (TIA) Father Hyperlipidemia Father Hypertension Father Hypertension Sister Stroke Maternal Grandmother Diabetes Maternal Grandmother Ischemic Heart Disease Maternal Grandfather Heart disease Maternal Grandfather Stroke Paternal Grandmother Heart Attack Paternal Grandfather Ovarian cancer Maternal Aunt Patient Allergies ALLERGIES Allergen Reactions Augmentin [Amoxicil* GI Upset Current Medications Current Outpatient Medications on File Prior to Visit Medication Sig gabapentin (NEURONTIN) 300 mg capsule Take 1 capsule by mouth once daily for 180 days. Take one tablet daily pravastatin (PRAVACHOL) 20 mg tablet Take 1 tablet by mouth daily at bedtime. cefADROxil (DURICEF) 500 mg capsule Take 1 capsule by mouth twice daily. cyclobenzaprine (FLEXERIL) 10 mg tablet Take 1 tablet by mouth three times daily as needed for muscle spasm. levothyroxine (SYNTHROID) 88 mcg tablet Take 1 tablet by mouth daily before breakfast. Take one tablet daily before breakfast traZODone (DESYREL) 150 mg tablet Take 1 tablet by mouth daily at bedtime. losartan (COZAAR) 25 mg tablet Take 1 tablet by mouth once daily. Take one tablet daily baclofen (LIORESAL) 10 mg tablet Take 1 tablet by mouth three times daily as needed (muscle spasms). betamethasone dipropionate (DIPROSONE) 0.05 % cream Apply to affected area twice daily. mupirocin (BACTROBAN) 2 % ointment Apply to affected area three times daily. (Patient taking differently: Apply to affected area three times daily. As needed) No current facility-administered medications on file prior to visit. Social History Social History Tobacco Use Smoking status: Never Smokeless tobacco: Never Vaping Use Vaping Use: Never used Substance Use Topics Alcohol use: Yes Alcohol/week: 5.0 standard drinks Types: 5 Cans of beer per week Drug use: Never Review of Symptoms REVIEW OF SYSTEMS SEE HPI EXAM: BP 112/76 Pulse 70 Resp 14 Wt 56.7 kg (125 lb) BMI 22.86 kg/m General Appearance: Well appearing, alert, in no acute distress, well-hydrated, well nourished.. Extremities: Positive findings: joint location: on right shoulder painful movement, loss of ROM, stiffness, and injury, on right knee swelling, painful movement, loss of ROM, and injury, on right hipswelling, painful movement, loss of ROM, injury, and ecchymosis . Health Maintenance List DTAP,TDAP,TD(1 - Tdap) Never done COLORECTAL CANCER SCREENING Never done BONE DENSITY Never done SHINGRIX VACCINE(1 of 2) due on 06/20/2023 COVID-19 VACCINE(4 - Booster for Pfizer series) due on 06/20/2023 MAMMOGRAM due on 01/15/2023 ANNUAL PCP TEAM CHRONIC DISEASE VISIT due on 06/20/2023 BP CONTROLLED (<130/80) due on 06/20/2023 DIABETES SCREEN due on 06/19/2025 LIPID SCREEN due on 06/20/2027 INFLUENZA Completed ADVANCE DIRECTIVE DISCUSSION Completed DEPRESSION ASSESSMENT Completed PNEUMOCOCCAL: 65+ Completed HEPATITIS C SCREENING Discontinued HIV SCREENING Discontinued ASSESSMENT/PLAN: 1. Fall (on) (from) unspecified stairs and steps, subsequent encounter - ICD9: V58.89, E880.9, ICD10: W10.9XXD (primary diagnosis) -Continue percocet and ibuprofen -Continue ice and heat as needed -Recommend epsom salt soaks to help with soreness and swelling. 2. Acute pain of right shoulder - ICD9: 719.41, ICD10: M25.511 - XR SHOULDER GENERAL 3V OR MORE AP/TRUE AP/OTHER RIGHT Rupinder Goss APRN.TRACY documented in this encounterKettering [facility]03-14-2023 Miscellaneous Notes* Telephone Encounter - Larissa Wakefield Ma - 07/01/2022 10:11 AM EDT [employer] message sent to pt notifying her of Providers response. Wait pt response if wanting to schedule. Larissa Wakefield Ma * Telephone Encounter - Aziza Thompson PA-C - 07/01/2022 9:59 AM EDT Would need a ER follow up for us to address. [facility] has plenty of availability today * Telephone Encounter - Larissa Wakefield Ma - 07/01/2022 9:04 AM EDT See pt message. Pt given Percocet 5-325 mg #12 on 06/29/22. No OV scheduled for a hospital f/u. Larissa Wakefield Ma documented in this encounterKettering Health [facility]03-14-2023 Miscellaneous Notes* Telephone Encounter - Aniyah Washburn LPN - 07/01/2022 7:16 AM EDT Patient requests via MyChart refills as follows: Requested Prescriptions Pending Prescriptions Disp Refills gabapentin (NEURONTIN) 300 mg capsule 90 capsule 1 Sig: Take 1 capsule by mouth once daily for 180 days. Take one tablet daily WESLY: 06/19/22 NOV: 12/24/22 Last Refill: 01/02/22 #90 1 refill Aniyah Washburn LPN documented in this encounterKettering [facility]03-12-2023 Hospital Discharge instructions Additional Instructions Please follow-up with your PCP in 3 to 5 days. Rest, ice the area several times a day for the next few days. Return for any worsening of symptoms.[facility] Work Phone: [phone] Nurse Note* Leonela Enriquez ASHOK - 06/26/2022 11:22 AM EST REVIEW OF SYSTEMS: General: The patient NOTES fatigue, denies weight loss, denies weight gain, denies feeling hot, andNOTES feelings of cold. Eyes: The patient denies glaucoma, denies eye injury/surgery, wears glasses or contacts. Ear/Nose/Throat: The patient NOTES allergies, denies hayfever, denies ear infections, and denies bloody noses. Cardiovascular: The patient denies chest pain, denies heart disease, NOTES high blood pressure,denies cardiac stent, denies prior heart attack, NOTES irregular heart beat, NOTES high cholesterol, denies poor circulation, denies heart failure, other cardiac issues, denies claudication, NOTES cold feet, denies peripheral arterial stent. Respiratory: The patient denies tuberculosis, denies pneumonia, denies frequent cough, denies pulmonary embolism, denies shortness of breath, and denies coughing up blood. Gastrointestinal: The patient denies difficulty swallowing, denies acid reflux, denies ulcers, denies vomiting, denies jaundice/hepatitis, denies gallbladder problems, denies black or tarry stools, denies hemorrhoids, denies bleeding from rectum, denies diverticulitis, NOTES constipation, NOTES diarrhea, denies loss of stool control, and denies hernias. Kidney/Bladder: The patient denies kidney stones, denies urine infections, and denies bloody urine. Skin: The patient denies a history of skin cancer, denies bleeding/changing moles, and NOTES a history of skin rash. Neurologic: The patient denies a history of epilepsy/convulsions, denies headaches, denies head/spinal injuries, and denies stroke/TIA. Psychiatric: The patient NOTES psychiatric medications, NOTES depression, and denies voices, deniessubstance abuse. Endocrine: The patient NOTES thyroid disorders, denies diabetes, and denies hormonal problems. Hematologic: The patient denies a history of bruising, denies bleeding, and denies anemia, denies blood clots. Infections: The patient denies a history of measles and mumps, denies rheumatic fever, and denies sexually transmitted diseases. Musculoskeletal: The patient NOTES back pain/injury, NOTES back problems, denies sciatica, NOTES knee/foot trouble, denies arthritis, or denies gout. When was patient's last Mammogram screening? 01/15/2022 Last Colonoscopy: 2004? Leonela Enriquez LPN [facility] History of Present illness Narrative* Louise Newton PA-C - 06/26/2022 10:47 AM EST HISTORY AND PHYSICAL Lillian Velazquez 1955 REFERRING PHYSICIAN: Aziza Thompson PA-C CHIEF COMPLAINT: No chief complaint on file. HPI: The patient is a 66 year old female referred for endoscopy. Lillian notes no new colon complaints. Patient denies any change in bowel habits, weight changes, blood in stools, black tarry stools orabdominal pain. Denies family history of colon issues. The patient notes no upper GI complaints. Lillian has undergone prior endoscopy-unsure of exact date but greater than 10 years ago per patient. Patient denies chest pain, shortness of breath or recent hospitalizations. Denies problems with sedation in the past. PAST MEDICAL HISTORY Diagnosis Date Elevated blood sugar 11/19/2021 History of COVID-19 11/01/2021 10/11/2021 Hypertension, essential 11/01/2021 Postoperative hypothyroidism 11/01/2021 Removed due to goiter. Primary insomnia 11/01/2021 RLS (restless legs syndrome) 11/01/2021 On gabapentin PAST SURGICAL HISTORY Procedure Laterality Date CYST/MOLE REMOVAL Left 1977 benign cyst- Left breast PAST SURGICAL HISTORY OF 2018 cervical fusion PAST SURGICAL HISTORY OF 2017 right shoulder decompression PAST SURGICAL HISTORY OF Bilateral foot surgery THYROIDECTOMY 10/2018 due to goiter, no cancer TONSILLECTOMY HX 8 yo Current Outpatient Medications Medication Sig cefADROxil (DURICEF) 500 mg capsule Take 1 capsule by mouth twice daily. atorvastatin (LIPITOR) 10 mg tablet Take 1 tablet by mouth daily at bedtime. For cholesterol. cyclobenzaprine (FLEXERIL) 10 mg tablet Take 1 tablet by mouth three times daily as needed for muscle spasm. levothyroxine (SYNTHROID) 88 mcg tablet Take 1 tablet by mouth daily before breakfast. Take one tablet daily before breakfast traZODone (DESYREL) 150 mg tablet Take 1 tablet by mouth daily at bedtime. losartan (COZAAR) 25 mg tablet Take 1 tablet by mouth once daily. Take one tablet daily baclofen (LIORESAL) 10 mg tablet Take 1 tablet by mouth three times daily as needed (muscle spasms). gabapentin (NEURONTIN) 300 mg capsule Take 1 capsule by mouth once daily for 180 days. Take one tablet daily betamethasone dipropionate (DIPROSONE) 0.05 % cream Apply to affected area twice daily. mupirocin (BACTROBAN) 2 % ointment Apply to affected area three times daily. No current facility-administered medications for this visit. ALLERGIES: Augmentin [Amoxicillin-Pot Clavulanate] PERSONAL HISTORY: Social History Tobacco Use Smoking status: Never Smokeless tobacco: Never Vaping Use Vaping Use: Never used Substance Use Topics Alcohol use: Yes Alcohol/week: 5.0 standard drinks Types: 5 Cans of beer per week Drug use: Never FAMILY HISTORY: FAMILY HISTORY Problem Relation Age of Onset Cancer Mother Lung? other (a. fib) Father other (TIA) Father Hyperlipidemia Father Hypertension Father Hypertension Sister Stroke Maternal Grandmother Diabetes Maternal Grandmother Ischemic Heart Disease Maternal Grandfather Heart disease Maternal Grandfather Stroke Paternal Grandmother Heart Attack Paternal Grandfather Ovarian cancer Maternal Aunt REVIEW OF SYMPTOMS: The review of systems data was entered by the nurse and reviewed by nj Nursing Notes: Leonela Enriquez LPN 06/26/2022 11:28 AM Signed REVIEW OF SYSTEMS: General: The patient NOTES fatigue, denies weight loss, denies weight gain, denies feeling hot, andNOTES feelings of cold. Eyes: The patient denies glaucoma, denies eye injury/surgery, wears glasses or contacts. Ear/Nose/Throat: The patient NOTES allergies, denies hayfever, denies ear infections, and denies bloody noses. Cardiovascular: The patient denies chest pain, denies heart disease, NOTES high blood pressure,denies cardiac stent, denies prior heart attack, NOTES irregular heart beat, NOTES high cholesterol, denies poor circulation, denies heart failure, other cardiac issues, denies claudication, NOTES cold feet, denies peripheral arterial stent. Respiratory: The patient denies tuberculosis, denies pneumonia, denies frequent cough, denies pulmonary embolism, denies shortness of breath, and denies coughing up blood. Gastrointestinal: The patient denies difficulty swallowing, denies acid reflux, denies ulcers, denies vomiting, denies jaundice/hepatitis, denies gallbladder problems, denies black or tarry stools, denies hemorrhoids, denies bleeding from rectum, denies diverticulitis, NOTES constipation, NOTES diarrhea, denies loss of stool control, and denies hernias. Kidney/Bladder: The patient denies kidney stones, denies urine infections, and denies bloody urine. Skin: The patient denies a history of skin cancer, denies bleeding/changing moles, and NOTES a history of skin rash. Neurologic: The patient denies a history of epilepsy/convulsions, denies headaches, denies head/spinal injuries, and denies stroke/TIA. Psychiatric: The patient NOTES psychiatric medications, NOTES depression, and denies voices, deniessubstance abuse. Endocrine: The patient NOTES thyroid disorders, denies diabetes, and denies hormonal problems. Hematologic: The patient denies a history of bruising, denies bleeding, and denies anemia, denies blood clots. Infections: The patient denies a history of measles and mumps, denies rheumatic fever, and denies sexually transmitted diseases. Musculoskeletal: The patient NOTES back pain/injury, NOTES back problems, denies sciatica, NOTES knee/foot trouble, denies arthritis, or denies gout. When was patient's last Mammogram screening? 01/15/2022 Last Colonoscopy: 2004? Leonela Enriquez LPN I have confirmed and edited as necessary, the PFSH and ROS obtained by others. Louise Newton PA-C PHYSICAL EXAMINATION: General: The patient is 66 year old female, well nourished, well hydrated in no acute distress. Thepatient is oriented to time, place, and person. VITALS: Blood pressure 128/80, pulse 97, temperature 36.9 C (98.5 F), temperature source Temporal, resp. rate 14, height 157.5 cm (5' 2), weight 56.7 kg (125 lb), SpO2 97 %. Body mass index is 22.86kg/m . HEENT: Normal cephalic, ataumatic, pupils are equally round, sclera are anicteric, mucous membranesare moist, oropharynx is clear. Neck has no masses, asymmetry or lymphadenopathy. Respiratory: Clear to auscultation and percussion. Normal respiratory excursion and pattern. Cardiac: Examination is regular rate and rhythm. Normal S1/S2 Abdominal exam: Soft, nontender, with no palpable masses. No hepatosplenomegaly. No palpable hernias. Extremities: no clubbing, cyanosis or edema. No adenopathy. LABORATORY VALUES: As Noted RADIOLOGIC STUDIES: As Noted Assessment IMPRESSION: encounter for screening colonoscopy PLAN: I have reviewed my findings with the surgeon. Will plan for lower endoscopy. We discussed therisks and benefits of the planned endoscopy. I have informed the patient that complications can occur including failure to complete the endoscopy and perforation. The patient had the opportunity to ask questions concerning the planned endoscopy. My staff has also explained the procedure to the patient in understandable terms and has given the patient printed material concerning the procedure. Thepatient freely consents to surgery. The patient was offered a surgery/procedure at a [facility]. I have counseled the patient regarding the risk of exposure to and/or potential harm posed by the COVID-19 virus with having a surgery/procedure at this time versus the risk of delaying the surgery/procedure. It is not possible to know either the risk of delaying the surgery or procedure or chance of getting an infection with perfect accuracy, but a joint decision was made between the patient and myself to proceed at this time with endoscopy. I plan to use Golytely bowel preparation I have explained to the patient the difference between IV conscious sedation and MAC anesthesia - and I have offered either, according to the patient's wishes. I have explained that with IV conscioussedation there is no anesthesia provider available and therefore there is a limitation of the amount of IV medications that can be given and that the patient may wake up in the middle of the procedure and/or experience pain/discomfort during the procedure. Further discussion was done and the patient was given the opportunity to ask questions and all questions were answered. The patient chooses IVconscious sedation Diagnoses: (Z12.11) Screening for colon cancer Consultation requested by Aziza Thompson PA-C for an opinion regarding screening colonoscopy. Myfinal recommendations will be communicated back to the requesting physician by way of shared Medical record or letter to requesting physician via US mail. Louise Newton PA-C documented in this encounter[facility] Miscellaneous Notes* Telephone Encounter - Remy Perez MD - 06/23/2022 11:10 AM EST The following approved medication requests have been transmitted electronically. Requested Prescriptions Signed Prescriptions Disp Refills cefADROxil (DURICEF) 500 mg capsule 20 capsule 0 Sig: Take 1 capsule by mouth twice daily. Remy Perez MD documented in this encounterK[facility] Miscellaneous Notes* Telephone Encounter - Aziza Thompson PA-C - 06/20/2022 1:28 PM EST At time of this message, PingMe is not allowing me to respond directly to patient by [employer] message.It states another user is replying to patient. Try again later however I can't tell who's in the chart/message and it's been this way for over 10 minutes. Therefore, please let patient know that the 1/100th of a point elevation is not a concern for me. Her renal function, GFR, was normal at greater than 60. She may have been mildly dehydrated at time of lab draw. But to prevent kidney disease stress limiting NSAIDs and staying hydrated.. Aziza Thompson PA-C documented in this encounterK[facility]03[facility] History of Present illness Narrative* Jennifer Pa RT(R) - 06/19/2022 1:20 PM EST Radiology Service Progress Note PATIENT NAME: Lillian Velazquez DATE OF SERVICE: June 19, 2022 TIME: 12:59 PM PATIENT IDENTITY VERIFICATION COMPLETED USING TWO (2) IDENTIFIERS: Name and Date of confirmedby patient verbally. FALL SCREENING: Has the patient had 2 falls in the last year or 1 fall with injury or currently using an Ambulatory Assistive Device (Walker, Cane, Wheelchair, Crutches, etc.)? No PATIENT GENDER DATA: Female. status: : No status: NO. PATIENT RELEVANT IMPLANT DATA REVIEWED: Yes RADIOLOGY DEPARTMENT: General X-ray: Exam(s) Completed: Pelvis X-Ray: Pelvis with Hip Left Lower Extremity X-Ray(s): Knee, AP / Lat / Tunne / Merchant Bilateral and Wt. Bearing PERIPHERAL IV DATA: Not applicable SIGNED BY: RT Destin(R) June 19, 2022 12:59 PM documented in this encounterK[facility]03-[facility] Instructions* Patient Instructions* Aziza Thompson PA-C - 06/19/2022 12:19 PM EST Please schedule your bone density scan. Advise Derm Consult- let us know if you need a referral sent anywhere. documented in this encounterK[facility]03[facility] History of Present illness Narrative* Aziza Thompson PA-C - 06/19/2022 12:05 PM EST Medicare Yearly Visit Medical B eligibilty date 8/1/22 Date of last exam n/a PAST MEDICAL HISTORY Diagnosis Date Elevated blood sugar 11/19/2021 History of COVID-19 11/01/2021 10/11/2021 Hypertension, essential 11/01/2021 Postoperative hypothyroidism 11/01/2021 Removed due to goiter. Primary insomnia 11/01/2021 RLS (restless legs syndrome) 11/01/2021 On gabapentin PAST SURGICAL HISTORY Procedure Laterality Date CYST/MOLE REMOVAL Left 1977 benign cyst- Left breast PAST SURGICAL HISTORY OF 2018 cervical fusion PAST SURGICAL HISTORY OF 2017 right shoulder decompression THYROIDECTOMY 10/2018 due to goiter, no cancer TONSILLECTOMY HX 8 yo ALLERGIES: Augmentin [Amoxicillin-Pot Clavulanate] Medications reviewed: Yes FAMILY HISTORY Problem Relation Age of Onset Cancer Mother Lung? other (a. fib) Father other (TIA) Father Hyperlipidemia Father Hypertension Father Hypertension Sister Stroke Maternal Grandmother Diabetes Maternal Grandmother Ischemic Heart Disease Maternal Grandfather Heart disease Maternal Grandfather Stroke Paternal Grandmother Heart Attack Paternal Grandfather Ovarian cancer Maternal Aunt SOCIAL HISTORY: Social History Tobacco Use Smoking status: Never Smokeless tobacco: Never Vaping Use Vaping Use: Never used Substance Use Topics Alcohol use: Yes Alcohol/week: 5.0 standard drinks Types: 5 Cans of beer per week Drug use: Never Lillian gets sporadic irregular exercise. She watches her diet for sodium, low fat and low cholesterol most of the time. List of current specialists seen: Podiatry. End of Live Planning discussed including patients advanced directive wishes: Yes I am willing to follow Lillian's advanced directives. Depression Screening 11/21/2021 03/28/2022 06/19/2022 PHQ-2 Score 2 2 1 Depression screening tool completed and reviewed. Based on score and interview, patient is not at risk for depression. Screening tool discussed with patient, and I recommended no further interventionat this time. Functional Ability/Safety Screen 1. Was the patient's timed Up and Go test unsteady or longer than 30 seconds? No 2. Does the patient need help with the phone, transportation, shopping,preparing meals, housework, laundry, medications or managing money? No 3. Does your home have rugs in the hallway, lack of grab bars in the bathroom, lack of handrails onthe stairs or have poor lighting? No Hearing Evaluation: normal PHYSICAL EXAM BP 126/84 (BP Site: Left Arm, BP Position: Sitting, BP Cuff Size: Regular Adult) Pulse 75 Resp 16 Ht 160 cm (5' 2.99) Wt 55.3 kg (122 lb) SpO2 98% BMI 21.62 kg/m Alert and oriented X 3: YES Body mass index is 21.62 kg/m . Visual acuity: sees Ophthalmology ASSESSMENT/PLAN: 66 year old female The following prevention plan was discussed during the office visit and provided to the patient: See below. Aziza Thompson PA-C Chief Complaint Patient presents with: Yearly Exam HPI Lillian Velazquez is a 66 year old female who presents here today for extensive exam. Patient with hx of insomnia, RLS, HTN, elevated glucose, hyperlipidemia, post surgical hypothyroidism, and those as below. She denies any specific concerns today. Past medical history, appointments, medications, allergies reviewed. 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 Primary insomnia 11/01/2021 RLS (restless legs syndrome) 11/01/2021 On gabapentin Previous Surgical History PAST SURGICAL HISTORY Procedure Laterality Date CYST/MOLE REMOVAL Left 1977 benign cyst- Left breast PAST SURGICAL HISTORY OF 2018 cervical fusion PAST SURGICAL HISTORY OF 2017 right shoulder decompression THYROIDECTOMY 10/2018 due to goiter, no cancer TONSILLECTOMY HX 8 yo Family History FAMILY HISTORY Problem Relation Age of Onset Cancer Mother Lung? other (a. fib) Father other (TIA) Father Hyperlipidemia Father Hypertension Father Hypertension Sister Stroke Maternal Grandmother Diabetes Maternal Grandmother Ischemic Heart Disease Maternal Grandfather Heart disease Maternal Grandfather Stroke Paternal Grandmother Heart Attack Paternal Grandfather Ovarian cancer Maternal Aunt Patient Allergies ALLERGIES Allergen Reactions Augmentin [Amoxicil* GI Upset Current Medications Current Outpatient Medications on File Prior to Visit Medication Sig cyclobenzaprine (FLEXERIL) 10 mg tablet Take 1 tablet by mouth three times daily as needed for muscle spasm. levothyroxine (SYNTHROID) 88 mcg tablet Take 1 tablet by mouth daily before breakfast. Take one tablet daily before breakfast traZODone (DESYREL) 150 mg tablet Take 1 tablet by mouth daily at bedtime. losartan (COZAAR) 25 mg tablet Take 1 tablet by mouth once daily. Take one tablet daily baclofen (LIORESAL) 10 mg tablet Take 1 tablet by mouth three times daily as needed (muscle spasms). gabapentin (NEURONTIN) 300 mg capsule Take 1 capsule by mouth once daily for 180 days. Take one tablet daily betamethasone dipropionate (DIPROSONE) 0.05 % cream Apply to affected area twice daily. mupirocin (BACTROBAN) 2 % ointment Apply to affected area three times daily. No current facility-administered medications on file prior to visit. Social History Social History Tobacco Use Smoking status: Never Smokeless tobacco: Never Vaping Use Vaping Use: Never used Substance Use Topics Alcohol use: Yes Alcohol/week: 5.0 standard drinks Types: 5 Cans of beer per week Drug use: Never Review of Symptoms REVIEW OF SYSTEMS GENERAL: No weight loss, malaise or fevers HEENT: No changes in hearing or vision, no nose bleeds or other nasal problems NECK: Negative for lumps, goiter, pain and significant neck swelling RESPIRATORY: Negative for cough, hemoptysis, wheezing, COPD, dyspnea or shortness of breath CARDIOVASCULAR: +palpitations at times but stable. Negative for chest pain, leg swelling, CHF or palpitations GI: Negative for abdominal discomfort, blood in stools or black stools, change in bowel habit, heart burn, nausea, vomiting : No history of dysuria, frequency or incontinence MUSCULOSKELETAL: chronic back pain SKIN: Negative for lesions, rash, and itching PSYCH: Negative for sleep disturbance, mood disorder and recent psychosocial stressors HEMATOLOGY/LYMPHOLOGY: Negative for prolonged bleeding, bruising easily or swollen nodes ENDOCRINE: Negative for cold or heat intolerance, polyuria, polydipsia and goiter NEURO: No history of headaches, syncope, paralysis, seizures or tremors EXAM: BP 126/84 (BP Site: Left Arm, BP Position: Sitting, BP Cuff Size: Regular Adult) Pulse 75 Resp 16 Ht 160 cm (5' 2.99) Wt 55.3 kg (122 lb) SpO2 98% BMI 21.62 kg/m General Appearance: Well appearing, alert, in no acute distress, well-hydrated, well nourished.. Head: Normocephalic, no masses, lesions, tenderness or abnormalities. Eyes: Anicteric sclera. Pupils are equally round and reactive to light. Extraocular movements are intact. . Ears: External ears normal, canals clear, TMs pearly marks. Some fluid bubbles noted. Neck: Supple, no adenopathy; thyroid symmetric, normal size, no bruits. Lungs: Lungs clear to auscultation. No wheezing, rhonchi, rales.. Heart: RRR without murmur, gallop, or rubs. No ectopy. Abdomen: Normal abdominal exam, Abdomen soft, non-tender. Bowel sounds normal. No masses, organomegaly. Extremities: No deformities, edema, skin discoloration, clubbing or cyanosis. Good capillary refill. . Peripheral Pulses: Normal. Neurologic: Gait normal. Reflexes normal and symmetric. Sensation grossly intact.. Health Maintenance List HEPATITIS C SCREENING Never done HIV SCREENING Never done BP CONTROLLED (<130/80) Never done DTAP,TDAP,TD(1 - Tdap) Never done COLORECTAL CANCER SCREENING Never done BONE DENSITY Never done ADVANCE DIRECTIVE DISCUSSION Never done DEPRESSION ASSESSMENT Never done SHINGRIX VACCINE(1 of 2) due on 06/20/2023 COVID-19 VACCINE(4 - Booster for Pfizer series) due on 06/20/2023 MAMMOGRAM due on 01/15/2023 ANNUAL PCP TEAM CHRONIC DISEASE VISIT due on 05/16/2023 DIABETES SCREEN due on 03/31/2025 LIPID SCREEN due on 01/27/2027 INFLUENZA Completed PNEUMOCOCCAL: 65+ Completed Data reviewed N/a ASSESSMENT/PLAN: 1. Encounter for Medicare annual wellness exam - ICD9: V70.0, ICD10: Z00.00 (primary diagnosis) - Counseled on healthy diet and regular exercise - Calcium intake with supplements or by diet of 1000 mg/day for under 50, 1200- 1500 mg/day for 50+ 2. Advanced care planning/counseling discussion - ICD9: V65.49, ICD10: Z71.89 Patient is looking into this 3. Hyperlipidemia, mixed - ICD9: 272.2, ICD10: E78.2 - to be determined upon return of lab results - Encouraged following a low carbohydrate, healthy oil intake diet. - Continue current therapy. - LIPID PANEL, NONFASTING 4. Hypertension, essential - ICD9: 401.9, ICD10: I10 - good control - Continue current medication(s) - Recommended regular aerobic exercise. - Recommend home blood pressure monitoring, to bring results in on next visit - Goal of BP <130/80 - BASIC METABOLIC PNL 5. Postoperative hypothyroidism - ICD9: 244.0, ICD10: E89.0 - Instructed patient on importance of taking on an empty stomach either first thing in the morning or at bedtime. - TSH BLD 6. Elevated blood sugar - ICD9: 790.29, ICD10: R73.9 check 7. RLS (restless legs syndrome) - ICD9: 333.94, ICD10: G25.81 stable 8. Screening for colon cancer - ICD9: V76.51, ICD10: Z12.11 - CONSULT TO GENERAL SURGERY 9. Primary insomnia - ICD9: 307.42, ICD10: F51.01 Stable. 10. Encounter for gynecological examination without abnormal finding - ICD9: V72.31, ICD10: Z01.419 - set up with rope walker - CONSULT TO GYNECOLOGY Aziza Thompson PA-C documented in this encounterK[facility] Miscellaneous Notes* Telephone Encounter - Vi Olson LPN - 06/09/2022 11:45 AM EST Pt notified of results and provider message. Vi Olson LPN * Telephone Encounter - Aziza Thompson PA-C - 06/09/2022 8:01 AM EST Let patient know that her CT was okay. Suspect the finding on xray was artifact from overlapping bowel gas. Aziza Thompson PA-C documented in this encounterK[facility] History of Present illness Narrative* Reef Leonela Briones, RT(R) - 06/05/2022 9:20 AM EST Radiology Service Progress Note PATIENT NAME: Lillian Velazquez DATE OF SERVICE: June 05, 2022 TIME: 10:27 AM PATIENT IDENTITY VERIFICATION COMPLETED USING TWO (2) IDENTIFIERS: Name and Date of confirmedby patient verbally. FALL SCREENING: Has the patient had 2 falls in the last year or 1 fall with injury or currently using an Ambulatory Assistive Device (Walker, Cane, Wheelchair, Crutches, etc.)? No PATIENT GENDER DATA: Female. status: : No status: NO. PATIENT RELEVANT IMPLANT DATA REVIEWED: Yes RADIOLOGY DEPARTMENT: CT; Exam(s) Completed: Pelvis PERIPHERAL IV DATA: Not applicable SIGNED BY: RT Shaq(R) June 05, 2022 10:27 AM documented in this encounterK[facility] History of Present illness Narrative* Jeyson Norman, PT - 05/21/2022 12:57 PM EST Episode Visit Count: 1 Therapist That Will Accept/Oversee The Plan Of Care: Jeyson Norman Start of Care Date: 05/21/22 Onset Date: 05/14/22 Plan of Care Certification Date: 05/21/22 Next Certification Due Date: 08/18/22 Patient Identified by Name and Date of : Yes REHABILITATION AND SPORTS THERAPY PHYSICAL THERAPY EVALUATION PLAN OF CARE: Assessment: Lillian Velazquez presents with chief complaint of LBP that interferes with lifting, bending, heavy exertion, cooking, cleaning . She presents with impairments in ADL's, overall function, range of motion, strength , and symptom management. PROMIS (Patient-Reported Outcomes Measurement Information System) scores were reviewed and physical function domain and self efficacy domain identified as a rehabilitation concern. Prognosis for therapy is Good due to: current objective clinical presentation, good overall health status, acuteness of condition, positive past response to therapy, within-session changes, good support system/ coping skills . She will benefit from skilled therapy services to meet the goals established for this plan of care as noted below. Classification Low Back Pain Subgroup Classification: Specific exercise subgroup: recommended visits 8. Specific Exercies Subgroup Classification based on: directional preference Goals for Episode of Care: created on 05/21/22 through 07/19/22 [place] in home exercise program. Patient will decrease pain rating by 2 points to meet minimal clinical important difference for numeric pain rating scale. Patient will increase active ROM of lumbar spine to pain free and WNL to allow pt to to improve postural alignment and to improve performance of ADLs. Patient will demonstrate increase in trunk/core strength to 4+/5 during manual muscle testing in order to improve function for basic self-care tasks, home management tasks, leisure / recreation skills, light functional tasks, and prior functional tasks. Perform bending, lifting with decreased report of symptoms/pain in 6-8 weeks. Perform sleeping and ADLs without pain. Improve postural awareness. Planned Interventions, Frequency, and Duration: Current Frequency: 1x/week Duration: 8 weeks Total Number of Visits Planned: 8 Planned Treatment Interventions: Therapeutic exercise (34449), Neuromuscular re- education (81684), Manual therapy (24714), Therapeutic activities (88495), Self- skilled nursing management (11810), Patient/Family/Caregiver Education, Body Mechanics Training PLAN FOR NEXT VISIT: Continue flexion bias for pain relief, neutral spine strengthening. May also perform traction if needed for symptom management Patient demonstrates good understanding of plan of care and treatment. The above goals and plan of care were discussed and agreed upon by patient/family. SUBJECTIVE: Lillian Velazquez is a 66 year old female seen today for LBP for about a week now with pain radiating from the tailbone, and wrapping around the hips into each groin R>L. Pt also gets a more vertical pain in the mid back when standing/cooking/doing dishes. In general bending over tendsto set it off, but also lying flat on her back in bed can too Functional Limitations: lifting, bending, heavy exertion, cooking, cleaning Prior Level of Function: Independent without limitations Intake Information: Prescription present Pain: Pain Pain Level: 6 Pain Location: Back Description: Aching, Sore, Radiating Frequency: Continuous Post Treatment Pain Post Treatment Pain Level: 3 Post Treatment Pain Location: Back Post Treatment Pain Description: Sore PROMIS Scales Higher is Better 03/23/2022 03/28/2022 05/20/2022 Phys Func - Score 39 (moderate dysfunction) - 41 (mild dysfunction) Phys Func - Percentile 14 % - 18 % GH Physical - Score - 39.8 (Fair) - GH Physical - Percentile - 15 % - GH Mental - Score - 38.8 (Fair) - GH Mental - Percentile - 13 % - Self-Eff Symptom - Score - - 41 (Average) Self-Eff Symptom - Percentile - - 18 % T-scores: mean of general population = 50. 5 points is clinically meaningfully difference Percentiles provide an indication of how the patient's score ranks in relation to the general population. Higher percentile rankings indicate better function/quality of life. 50th percentile is the average of the general population and indicates half of respondents had a worse score. Lower is Better 03/28/2022 Fatigue - Score 64 (moderate) Fatigue - Percentile 8 % T-scores: mean of general population = 50. 5 points is clinically meaningfully difference Percentiles provide an indication of how the patient's score ranks in relation to the general population. Higher percentile rankings indicate better function/quality of life. 50th percentile is the average of the general population and indicates half of respondents had a worse score. OBJECTIVE MEASURES WITH LEVEL OF FUNCTION: Lumbar Spine AROM Lumbar Flexion: Normal Lumbar Extension: Minimal limitation, Increased pain Lumbar R Side-Bend: Minimal limitation, Increased pain Lumbar L Side-Bend: Normal Lumbar R Rotation: Normal Lumbar L Rotation: Normal Repeated Test Movements - Lumbar RFIL - Symptoms During: decreases RFIL - Symptoms After: better LE Strength Trunk Strength: 3+/5 R LE Strength: 4+/5 L LE Strength: 4+/5 Special Tests - Hip and Spine Hip and Spine Special Tests: SLR Test SLR Test: Right Positive, Left Positive Education: Education Learning/educational needs: Home exercise program, Plan of Care, Changes in Plan of Care, Posture, Body Mechanics TREATMENT: PT Treatment Interventions: Therapeutic Exercise, Self-Group Home Management Evaluation Therapeutic Exercise: 1: *SKC 3x30 sec/side 2: *DKC 3x30 sec 3: *R fig 4 piriformis stretch 3x30 sec 4: *TA bracing 3x10, 5 sec holds 5: *TA bracing plus hip hikes 3x10 6: *TA bracing plus BKFO 3x10/side Skilled Intervention: Patient was educated in proper exercise technique and purpose for exercises. Skilled judgment was provided in selection of appropriate interventions. Provided written instruction for home exercise program to facilitate proper performance and compliance. Correct performance of therapeutic exercises was facilitated with verbal, visual, and tactile cuing. Self-Group Home Management: 1: Reviewed imaging and discussed rehab implications, discussed theories and rationale for treatment and exercises today Skilled Intervention: Skilled judgment in the selection of proper modification for activity of daily living/home management based on clinical presentation, deficits, and needs. Reviewed patient specific diagnosis in relation to activities of daily living/home management. Activity progression based on professional judgement. Billing * Evaluation Low Complexity: 1 Unit Therapeutic Exercise Treatment Minutes: 20 Self-Care/Home Management Treatment Minutes: 20 Total Treatment Time Minutes (timed/untimed): 55 Jeyson Norman PT documented in this encounterK[facility]01-30-[facility]23 Miscellaneous Notes* Telephone Encounter - Aziza Thompson PA-C - 05/19/2022 2:21 PM EST Patient is scheduled 06/05. Aziza Thompson PA-C * Telephone Encounter - Louise Red RN - 05/19/2022 10:47 AM EST Called and left a detailed voicemail notifying patient of providers message. Hospital phone number was left in case patient had any questions and to schedule CT. Louise Red RN * Telephone Encounter - Aziza Thompson PA-C - 05/19/2022 7:41 AM EST Let patient know that there's an area on xray that is concerning for a lesion. We need to get a CT scan of this area to better view this. documented in this encounterK[facility]01-27-[facility] History of Present illness Narrative* Aniyah Washburn LPN - 05/16/2022 12:30 PM EST Pt was given toradol 60mg then observed X 15mins. Pt reports pain has improved from a 7 to a 5 on pain scale. Pt states she is feeling fine after injection. No reaction noted. Aniyah Washburn LPN * Aziza Thompson PA-C - 05/16/2022 11:34 AM EST Chief Complaint Patient presents with: Back Pain: Lower back pain X 1 wk HPI Lillian Velazquez is a 66 year old female who presents here today for above concerns. Patient states that at the beginning of the week she started to have low back pain. She is having her bathroom remodeled and so her house is a little chaotic. She is not sure if she may have twisted or picked up something. Pain is mostly mid low back and off to right side. Pain radiates around hip. She has hx of recurring back issues. No numbness or tingling No loss of control of bowel or urine. Past medical history, appointments, medications, allergies reviewed. 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 Primary insomnia 11/01/2021 RLS (restless legs syndrome) 11/01/2021 On gabapentin Previous Surgical History PAST SURGICAL HISTORY Procedure Laterality Date CYST/MOLE REMOVAL Left 1977 benign cyst- Left breast PAST SURGICAL HISTORY OF 2018 cervical fusion PAST SURGICAL HISTORY OF 2017 right shoulder decompression THYROIDECTOMY 10/2018 due to goiter, no cancer TONSILLECTOMY HX 8 yo Family History FAMILY HISTORY Problem Relation Age of Onset Cancer Mother Lung? other (a. fib) Father other (TIA) Father Hyperlipidemia Father Hypertension Father Hypertension Sister Stroke Maternal Grandmother Diabetes Maternal Grandmother Ischemic Heart Disease Maternal Grandfather Heart disease Maternal Grandfather Stroke Paternal Grandmother Heart Attack Paternal Grandfather Ovarian cancer Maternal Aunt Patient Allergies ALLERGIES Allergen Reactions Augmentin [Amoxicil* GI Upset Current Medications Current Outpatient Medications on File Prior to Visit Medication Sig levothyroxine (SYNTHROID) 88 mcg tablet Take 1 tablet by mouth daily before breakfast. Take one tablet daily before breakfast traZODone (DESYREL) 150 mg tablet Take 1 tablet by mouth daily at bedtime. losartan (COZAAR) 25 mg tablet Take 1 tablet by mouth once daily. Take one tablet daily baclofen (LIORESAL) 10 mg tablet Take 1 tablet by mouth three times daily as needed (muscle spasms). gabapentin (NEURONTIN) 300 mg capsule Take 1 capsule by mouth once daily for 180 days. Take one tablet daily betamethasone dipropionate (DIPROSONE) 0.05 % cream Apply to affected area twice daily. mupirocin (BACTROBAN) 2 % ointment Apply to affected area three times daily. cefADROxil (DURICEF) 500 mg capsule Take 1 capsule by mouth twice daily. (Patient not taking: Reported on 05/16/2022) HYDROCODONE-ACETAMINOPHEN ORAL Take by mouth. As needed for pain (Patient not taking: Reported on 05/16/2022) traMADol (ULTRAM) 50 mg tablet Take 1 tablet by mouth every 8 hours as needed for pain. (Patient not taking: Reported on 05/16/2022) No current facility-administered medications on file prior to visit. Social History Social History Tobacco Use Smoking status: Never Smokeless tobacco: Never Vaping Use Vaping Use: Never used Substance Use Topics Alcohol use: Yes Alcohol/week: 5.0 standard drinks Types: 5 Cans of beer per week Drug use: Never Review of Symptoms REVIEW OF SYSTEMS See hpi. EXAM: BP 153/98 Pulse 61 Resp 16 Wt 55.4 kg (122 lb 3.2 oz) SpO2 98% BMI 22.35 kg/m General Appearance: Well appearing, alert, in no acute distress, well-hydrated, well nourished.. Musculoskeletal: pain to palp of lumbar paraspinous muscle and B/l SI joints. Neg SLR. NVI. ROM restricted d/t pain. Peripheral Pulses: Normal. Neurologic: Gait normal. Reflexes normal and symmetric. Sensation grossly intact.. Health Maintenance List HEPATITIS C SCREENING Never done HIV SCREENING Never done BP CONTROLLED (<130/80) Never done DTAP,TDAP,TD(1 - Tdap) Never done COLORECTAL CANCER SCREENING Never done SHINGRIX VACCINE(1 of 2) Never done COVID-19 VACCINE(4 - Booster for Pfizer series) due on 05/23/2021 BONE DENSITY Never done ADVANCE DIRECTIVE DISCUSSION Never done DEPRESSION ASSESSMENT Never done MAMMOGRAM due on 01/15/2023 ANNUAL PCP TEAM CHRONIC DISEASE VISIT due on 04/04/2023 DIABETES SCREEN due on 03/31/2025 LIPID SCREEN due on 01/27/2027 INFLUENZA Completed PNEUMOCOCCAL: 65+ Completed Data reviewed ASSESSMENT/PLAN: 1. Lumbar back pain - ICD9: 724.2, ICD10: M54.50 Toradol today. Check xray Start Physical Therapy Pred taper and prn flexeril given. - KETOROLAC 60 MG/2 ML INTRAMUSCULAR SOLUTION - XR LUMBAR GENERAL 3V AP/LAT/L5-S1 - CONSULT TO PHYSICAL THERAPY Aziza Thompson PA-C documented in this encounterK[facility]01-27-[facility]23 History of Present illness Narrative* Mari Alicea RT(R) - 05/16/2022 12:30 PM EST Radiology Service Progress Note PATIENT NAME: Lillian Velazquez DATE OF SERVICE: May 16, 2022 TIME: 12:25 PM PATIENT IDENTITY VERIFICATION COMPLETED USING TWO (2) IDENTIFIERS: Name and Date of confirmedby patient verbally. FALL SCREENING: Has the patient had 2 falls in the last year or 1 fall with injury or currently using an Ambulatory Assistive Device (Walker, Cane, Wheelchair, Crutches, etc.)? No PATIENT GENDER DATA: Female. status: : No status: NO. PATIENT RELEVANT IMPLANT DATA REVIEWED: Not Applicable RADIOLOGY DEPARTMENT: General X-ray: Exam(s) Completed: Spine X-Ray(s): Lumbar AP / LAT / L5-S1 PERIPHERAL IV DATA: Not applicable SIGNED BY: RT Marybeth(R) May 16, 2022 12:25 PM documented in this encounterK[facility]01-18-2023 Miscellaneous Notes* Telephone Encounter - Anabelle Brantley - 05/07/2022 11:13 AM EST Patient wants to discuss her labwork. Might want a phone call or virtual appointment. documented in this encounterK[facility]01-05-2023 Miscellaneous Notes* Telephone Encounter - Remy Perez MD - 04/24/2022 1:55 PM EST The following approved medication requests have been transmitted electronically. Requested Prescriptions Signed Prescriptions Disp Refills levothyroxine (SYNTHROID) 88 mcg tablet 90 tablet 1 Sig: Take 1 tablet by mouth daily before breakfast. Take one tablet daily before breakfast traZODone (DESYREL) 150 mg tablet 90 tablet 1 Sig: Take 1 tablet by mouth daily at bedtime. losartan (COZAAR) 25 mg tablet 90 tablet 1 Sig: Take 1 tablet by mouth once daily. Take one tablet daily Remy Perez MD * Telephone Encounter - Angi Mcguire MA - 04/24/2022 1:37 PM EST Patient has been identified by name and date of : Yes Requested Prescriptions Pending Prescriptions Disp Refills levothyroxine (SYNTHROID) 88 mcg tablet 90 tablet 1 Sig: Take 1 tablet by mouth daily before breakfast. Take one tablet daily before breakfast traZODone (DESYREL) 150 mg tablet 90 tablet 1 Sig: Take 1 tablet by mouth daily at bedtime. losartan (COZAAR) 25 mg tablet 90 tablet 1 Sig: Take 1 tablet by mouth once daily. Take one tablet daily RX INSTRUCTIONS: Patient aware RX will be sent to pharmacy. No need to notify patient. Angi Mcguire MA Wesly: 03/2022 Nov: 06/2022 Last refill: 11/2021 documented in this encounterK[facility]12-16-2022 History of Present illness Narrative* Remy Perez MD - 04/04/2022 3:08 PM EST Chief Complaint Patient presents with: Sinusitis HPI Lillian Brown is a 66 year old female who presents here today for sinus pressure. Started 1 week ago with sore throat that developed into sinus pressure some pain in left ear. No known exposure to Covid. Did take Covid test on Thursday was negative. Cough; no fever. No N/V no diarrhea. Has pain in her upper teeth. Has post nasal drainage. Has lots of clear to white nasal drainage. Has a dry cough. No shortness of breath or wheezing. Past medical history, appointments, medications, allergies reviewed. 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 Primary insomnia 11/01/2021 RLS (restless legs syndrome) 11/01/2021 On gabapentin Previous Surgical History PAST SURGICAL HISTORY Procedure Laterality Date CYST/MOLE REMOVAL Left 1977 benign cyst- Left breast PAST SURGICAL HISTORY OF 2018 cervical fusion PAST SURGICAL HISTORY OF 2017 right shoulder decompression THYROIDECTOMY 10/2018 due to goiter, no cancer TONSILLECTOMY HX 8 yo Family History FAMILY HISTORY Problem Relation Age of Onset Cancer Mother Lung? other (a. fib) Father other (TIA) Father Hyperlipidemia Father Hypertension Father Hypertension Sister Stroke Maternal Grandmother Diabetes Maternal Grandmother Ischemic Heart Disease Maternal Grandfather Heart disease Maternal Grandfather Stroke Paternal Grandmother Heart Attack Paternal Grandfather Ovarian cancer Maternal Aunt Patient Allergies ALLERGIES Allergen Reactions Augmentin [Amoxicil* GI Upset Current Medications Current Outpatient Medications on File Prior to Visit Medication Sig HYDROCODONE-ACETAMINOPHEN ORAL Take by mouth. As needed for pain traMADol (ULTRAM) 50 mg tablet Take 1 tablet by mouth every 8 hours as needed for pain. baclofen (LIORESAL) 10 mg tablet Take 1 tablet by mouth three times daily as needed (muscle spasms). gabapentin (NEURONTIN) 300 mg capsule Take 1 capsule by mouth once daily for 180 days. Take one tablet daily betamethasone dipropionate (DIPROSONE) 0.05 % cream Apply to affected area twice daily. levothyroxine (SYNTHROID) 88 mcg tablet Take 1 tablet by mouth daily before breakfast. Take one tablet daily before breakfast traZODone (DESYREL) 150 mg tablet Take 1 tablet by mouth daily at bedtime. losartan (COZAAR) 25 mg tablet Take 1 tablet by mouth once daily. Take one tablet daily mupirocin (BACTROBAN) 2 % ointment Apply to affected area three times daily. No current facility-administered medications on file prior to visit. Social History Social History Tobacco Use Smoking status: Never Smokeless tobacco: Never Vaping Use Vaping Use: Never used Substance Use Topics Alcohol use: Yes Alcohol/week: 5.0 standard drinks Types: 5 Cans of beer per week Drug use: Never Review of Symptoms REVIEW OF SYSTEMS See HPI EXAM: BP (P) 148/88 (BP Site: Left Arm, BP Position: Sitting, BP Cuff Size: Regular Adult) Pulse (P) 60 Temp (P) 36.5 C (97.7 F) (Tympanic) Resp (P) 16 Wt (P) 54.9 kg (121 lb) SpO2 (P) 98% BMI (P) 22.13 kg/m General Appearance: Well appearing, alert, in no acute distress, well-hydrated, well nourished.. Eyes: Anicteric sclera. Pupils are equally round. Extraocular movements are intact. . Ears: External ears normal, canals clear, right TM normal., right TM slightly dull light reflex andappearance. . Nose/Sinuses: Negative findings: septum midline with no perforation or bleeding, Positive findings:mucosa swollen, pale, and boggy, clear rhinorrhea. Frontal sinuses slightly tender and maxillary sinuses very tender. Oropharynx: Lips, mucosa, and tongue normal, teeth and gums normal, oropharynx with cobble stoning. Neck: Supple, no adenopathy; thyroid symmetric, normal size, no bruits. Lungs: Lungs clear to auscultation. No wheezing, rhonchi, rales.. Heart: RRR without murmur, gallop, or rubs. No ectopy. Health Maintenance List HEPATITIS C SCREENING Never done HIV SCREENING Never done BP CONTROLLED (<130/80) Never done DTAP,TDAP,TD(1 - Tdap) Never done COLORECTAL CANCER SCREENING Never done SHINGRIX VACCINE(1 of 2) Never done DEPRESSION ASSESSMENT Never done COVID-19 VACCINE(4 - Booster for Pfizer series) due on 05/23/2021 BONE DENSITY Never done ADVANCE DIRECTIVE DISCUSSION Never done MAMMOGRAM due on 01/15/2023 ANNUAL PCP TEAM CHRONIC DISEASE VISIT due on 01/27/2023 DIABETES SCREEN due on 03/31/2025 LIPID SCREEN due on 01/27/2027 INFLUENZA Completed PNEUMOCOCCAL: 65+ Completed Data reviewed A/P ASSESSMENT/PLAN: 1. Bacterial sinusitis - ICD9: 473.9, 041.9, ICD10: J32.9, B96.89 - Will begin treatment with as per antibiotic as written, see orders Requested Prescriptions Signed Prescriptions Disp Refills cefADROxil (DURICEF) 500 mg capsule 20 capsule 0 Sig: Take 1 capsule by mouth twice daily. F/u if no better. Remy Perez MD documented in this encounterK[facility]12-09-2022 Instructions* Patient Instructions* Genie Quispe MD - 03/28/2022 12:59 PM EST Labs and x rays today on first floor Ultrasound of your hands to evaluate for inflammation Bone density scan anytime Physical therapy Talk to your PCP about sleep study and your mood Follow up video to talk about results BONE MINERAL DENSITY PATIENT INSTRUCTIONS Bone mineral density testing measures the amount of calcium in certain parts of your bones. This information determines how strong your bones are. The test is used to detect osteoporosis, a disease in which the bone's mineral content and density are low, increasing a person's risk of fractures. Thelumbar spine (lower back) and the hip are the skeletal sites usually examined. For the test, remember that: 1. You cannot take this test if you are . 2. Eat a normal diet on the day of the test. 3. Take your medications as you normally would. 4. DO NOT take calcium supplements (such as Tums) for 24 hours before the test. 5. On the day of the test, leave valuables (jewelry or credit cards) at home. 6. The test should be performed prior to oral, rectal or IV contrast studies, or at least 7 days after any of these studies. For the test, you may be asked to wear a hospital gown. You will lie on your back, on a padded table, in a comfortable position. Generally, you can resume your usual activities immediately. documented in this encounterK[facility]12-09-2022 History of Present illness Narrative* Genie Quispe MD - 03/28/2022 12:00 PM EST Images from the original note were not included. Rheumatology CONSULTATION Date of Service: 03/28/2022 Patient: Lillian Velazquez Medical Record: [id number] Primary Care Physician: Remy Perez MD [facility] visit: [facility] Referring Provider: Aziza Thompson [id number] [facility] [id number] Chief Complaint: Patient presents with: New Patient Joint Pain Lillian Velazquez is here today at request of JOSE ALFREDO Thompson specifically for consultation of my opinion in regards to the chief complaint listed above. Correspondence will be shared today via the [employer] electronic health record or through regular mail, where applicable. HISTORY OF PRESENT ILLNESS Lillian Velazquez is a 66 year old White female with a history of restless legs, hypertension, hypothyroidism, polymorphous light eruption, COVID recovered 09/2021 who presents rheumatology clinic for evaluation of left upper extremity numbness in the setting of previously positive ESTELLA. Chart review reveals that she was evaluated by her PCP 11/01/2021 for left shoulder pain with numbness up her left hand and arm. She was given steroid taper 60 mg x 3, 40 mg x 3, 20 mg x 3, 10 mg x 3 then off with some improvement. Work-up notable for ESTELLA 1: 160 nuclear homogenous, normal ESR, CRP, negative RF, normal TSH, postop changes from cervical disc fusion on x-ray, left hand x- ray with OA,and EMG completely normal of left upper extremity. Today she presents to clinic with her Rao. She developed COVID in the summer with minimal symptoms including cough, fever, fatigue. She had 1 dose of paxlovid which caused nausea and vomiting. 1 week later she had pain shooting down her left upper extremity. She has a history of neck fusionin 2017 and previously had similar symptoms in her right arm. EMG was negative. After her prednisone she felt much better in the numbness tingling pain went away. She then developed pain and swellingin her left hand second and third MCPs with significant morning stiffness and decreased audit practice intern strength. She also has bilateral knee pain which is worse in the morning. She notes left shoulder pain andleft hip pain on the lateral aspect. She trialed tramadol which was since discontinued. She will intermittently use ibuprofen 400 mg 1-2 times a day which sometimes helps her pain. Rheumatologic view of systems notable for intermittent headaches which have not changed recently. 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 She has intermittent dysphagia. She has intermittent crampy abdominal pain with diarrhea few times a month without blood. She has previously had normal colonoscopies. 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 This does not happen on a regular basis with her hands or feet. She does have a lifelong history of fatigue with sleeping difficulties including snoring and waking up feeling unrefreshed. Her mood is moderate to poor and she always feels a little bit down where most things are chore for here and it is difficult to truly be happy. She has dry eyes using drops are mainly and dry mouth. She denies fevers, chills, night sweats, unintentional weight loss, history of uveitis, sores in her nose or mouth, malar rash, cough, congestion, chest pain, shortness of breath, nausea, vomiting, blood in her urine or stool, or any other red hot swollen joints. Lillian is RF negative - 9 (11/21/2021). Her most recent ESTELLA was positive (11/21/2021). Pain Evaluation Pain Evaluation 11/01/2021 01/01/2022 03/28/2022 Pain Score 9 4 5 Location Shoulder-Left - - Description Throbbing;Radiating Aching Aching;Stiffness Duration (#) 1 - - Duration (Timeframe) Weeks - Years Frequency Continuous - Continuous Intervention - - Declined PATIENT-ENTERED DATA PROMIS Assessments PROMIS Assessments 11/20/2021 03/23/2022 03/28/2022 Physical Health Percentile 31 % - 15 % Mental Health Percentile 43 % - 13 % Pain Score 3 - 3 Pain Interference Percentile - - 12 % Fatigue Percentile - - 8 % Physical Function Percentile - 14 % - RAPID 3 Núñez Activities of Daily Living 03/28/2022 11:46 AM Dress self? With SOME difficulty Get in and out of bed? Without ANY difficulty Walk outdoors? With SOME difficulty Wash and dry body? Without ANY difficulty Get in and out of car? With SOME difficulty RAPID 3 Disease Activity Weighed Score Levels: 0 - 1: Near Remission 1.3 - 2.0: Low Severity 2.3 - 4.0: Moderate Severity 4.3 - 10.0: High Severity RAPID-3 Weighed Score 03/28/2022 RAPID 3 Weighed Score 5.11 (High Severity (HS)) Review of Systems CONSTITUTION: Negative for: Fever and Recent weight change HEENT: Negative for: Nosebleeds, Mouth sores, Trouble swallowing and Dry mouth RESPIRATORY: Negative for: Cough, Shortness of breath and Pain with breathing GASTROINTESTINAL: Positive for: Diarrhea, Heartburn and Abdominal pain Negative for: Melena MUSCULOSKELETAL: Positive for: Arthralgias, Myalgias, Muscle weakness, Joint swelling and Morning Joint Stiffness NEUROLOGICAL: Positive for: Headaches Negative for: Numbness and Memory loss SKIN: Positive for: Hair loss Negative for: Rash, Skin changes and Nail changes EYES: Positive for: Eye pain, Eye dryness and Visual disturbance Negative for: Eye redness CARDIOVASCULAR: Negative for: Chest pain and Leg swelling GENITOURINARY: Negative for: Dysuria and Hematuria HEMATOLOGIC/LYMPHATIC: Negative for: Swollen glands REVIEW OF SYSTEMS Complete ROS (HEENT, respiratory, cardiology, GI, , skin, psych, hematology, endocrine, neuro, musculoskeletal) negativee except as noted in HPI. PAST MEDICAL HISTORY PAST MEDICAL HISTORY Diagnosis Date Elevated blood sugar 11/19/2021 History of COVID-19 11/01/2021 10/11/2021 Hypertension, essential 11/01/2021 Postoperative hypothyroidism 11/01/2021 Removed due to goiter. Primary insomnia 11/01/2021 RLS (restless legs syndrome) 11/01/2021 On gabapentin PAST SURGICAL HISTORY PAST SURGICAL HISTORY Procedure Laterality Date CYST/MOLE REMOVAL Left 1977 benign cyst- Left breast PAST SURGICAL HISTORY OF 2018 cervical fusion PAST SURGICAL HISTORY OF 2017 right shoulder decompression THYROIDECTOMY 10/2018 due to goiter, no cancer TONSILLECTOMY HX 8 yo FAMILY HISTORY: Son with Raynaud's Aunt with unspecified GI issues No other known family history of autoimmune disease FAMILY HISTORY Problem Relation Age of Onset Cancer Mother Lung? other (a. 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 baclofen (LIORESAL) 10 mg tablet Take 1 tablet by mouth three times daily as needed (muscle spasms). gabapentin (NEURONTIN) 300 mg capsule Take 1 capsule by mouth once daily for 180 days. Take one tablet daily betamethasone dipropionate (DIPROSONE) 0.05 % cream Apply to affected area twice daily. levothyroxine (SYNTHROID) 88 mcg tablet Take 1 tablet by mouth daily before breakfast. Take one tablet daily before breakfast traZODone (DESYREL) 150 mg tablet Take 1 tablet by mouth daily at bedtime. losartan (COZAAR) 25 mg tablet Take 1 tablet by mouth once daily. Take one tablet daily mupirocin (BACTROBAN) 2 % ointment Apply to affected area three times daily. HYDROCODONE-ACETAMINOPHEN ORAL Take by mouth. As needed for pain ALLERGIES ALLERGIES Allergen Reactions Augmentin [Amoxicil* GI Upset PHYSICAL EXAM VITAL SIGNS: BP 132/81 Pulse 69 Temp (Src) 99 (Temporal) Ht 5' 2 (1.58m) Wt 120 lb (54.4kg) BMI 21.94 kg/(m^2). GENERAL: Alert and oriented, appears stated age. In no acute distress. EYES: PERRL, EOMI, anicteric sclerae, no conjunctival injection HENT: Normal external examination of the ears and nose, lips, oropharynx and tongue. No oropharyngeal lesions or exudate. No oral or nasal sores. Dry oral mucosa with fissuring of tongue, no cheilitis NECK: No mass or asymmetry. No lymphadenopathy RESPIRATORY: Normal respiratory effort. Clear to auscultation bilaterally CARDIOVASCULAR: Regular in rate and rhythm without murmurs, rubs, or gallops ABDOMEN: Soft, nontender, nondistended NEUROLOGIC: No gross focal neurologic deficits. Cranial nerves II-XII grossly intact. SKIN: No rash, thickening, nodules, discoloration. Normal nails. Normal nailfold capillaries. Healing surgical incisions on bilateral feet MSK: Normal range of motion, no deformities, no swelling, and no tenderness in the hands, wrists, elbows, shoulders, spine, hips, knees, ankles, feet except as noted below: No active dactylitis, enthesitis, synovitis, tendinitis Overall benign joint exam Slight crepitus in knees with range of motion Tenderness palpation of left trochanteric bursa Joint Exam 03/28/2022 Right Left MCP 2 Tender Tender MCP 3 Tender The following joints were examined and normal: Left Sternoclavicular, Right Sternoclavicular, Left Acromioclavicular, Right Acromioclavicular, Left Glenohumeral, Right Glenohumeral, Left Elbow, Right Elbow, Left Wrist, Right Wrist, Left MCP 1, Right MCP 1, Right MCP 3, Left MCP 4, Right MCP 4, Left MCP 5, Right MCP 5, Left IP, Right IP, Left PIP 2, Right PIP 2, Left PIP 3, Right PIP 3, Left PIP 4, Right PIP 4, Left PIP 5, Right PIP 5, Cervical Spine, Thoracic Spine, Lumbar Spine, Left Sacroiliac, Right Sacroiliac, Left Knee, Right Knee, Left Ankle, Right Ankle, Left MTP 1, Right MTP 1, Left MTP 2, Right MTP 2, Left MTP 3, Right MTP 3, Left MTP 4, Right MTP 4, Left MTP 5, Right MTP 5 Joint Exam Data (across time) Joint Exam 03/28/2022 Total Tender 3 Total Swollen 0 LABS Reviewed in [facility], notable for: 01/27/2022 Normal CBC, CMP 11/21/2021: ESTELLA 1: 160 nuclear homogenous CRP less than 0.3 ESR 8 RF less than 10 CBC Latest Ref Rng & Units 01/27/2022 WBC 3.70 - 11.00 k/uL 5.31 HEMOGLOBIN 11.5 - 15.5 g/dL 12.8 HEMATOCRIT 36.0 - 46.0 % 38.9 PLATELETS 150 - 400 k/uL 196 ABS NEUT (ANC) 1.45 - 7.50 k/uL 3.24 ABS LYMPH 1.00 - 4.00 k/uL 1.45 CMP Latest Ref Rng & Units 01/27/2022 SODIUM 136 - 144 mmol/L 140 POTASSIUM 3.7 - 5.1 mmol/L 4.3 CHLORIDE 97 - 105 mmol/L 103 CO2 22 - 30 mmol/L 26 GLUCOSE 74 - 99 mg/dL 83 BUN 7 - 21 mg/dL 11 CREATININE 0.58 - 0.96 mg/dL 0.89 CALCIUM, TOTAL 8.5 - 10.2 mg/dL 9.4 AST 13 - 35 U/L 22 ALT 7 - 38 U/L 23 ALKALINE PHOSPHATASE 34 - 123 U/L 68 ESR, WSR Latest Ref Rng & Units 11/21/2021 WSR 0 - 20 mm/hr 8 CRP Latest Ref Rng & Units 11/21/2021 CRP <0.9 mg/dL <0.3 RF and CCP Latest Ref Rng & Units 11/21/2021 RHEUMATOID FACTOR <16 IU/mL <10 Antibodies Latest Ref Rng & Units 11/21/2021 ESTELLA Negative Positive(A) ESTELLA TITER - 1:160 ESTELLA PATTERN - Nuclear homogenous Urinalysis Latest Ref Rng & Units 01/27/2022 PROTEIN, URINE Negative Negative RBC, URINE 0-3 /HPF 0-3 /HPF IMAGING Reviewed in Epic, notable for: 12/25/2021 EMG left upper extremity: Normal 11/04/2021 cervical x-ray: RESULT: 4 views of the cervical spine demonstrate multilevel degenerative change with vertebral body osteophytosis and disc space narrowing at C7-T1 where there is mild 3 to 4 mm anterolisthesis of C7 on T1 with intact spinolaminal line. There are no vertebral body compression deformities and alignment is well maintained. Postsurgical changes of anterior cervical disc fusion with screw plate device transfixing C5-C7 with metallic interbody grafts at C5-6 and C6-7. Visualized surgical hardware is intact and there is no radiographic evidence for loosening or superimposed fracture. Bilateral obliques demonstrate mild to moderate foraminal narrowing at C2-C3, C4-5, C6-7 and C7-T1 on the left. Severe foraminal narrowing is noted at C3-4 on the right.. The atlantoaxial interval and craniocervical junction are intact. There is no prevertebral soft tissue abnormality. 11/21/2021 x-ray left hand: Narrowing of scaphotrapezial joint space, otherwise normal ASSESSMENT Lillian Velazquez is a 66 year old White female with a history of restless legs, hypertension, hypothyroidism, polymorphous light eruption, COVID recovered 09/2021 who presents rheumatology clinic for evaluation of left upper extremity numbness in the setting of previously positive ESTELLA. Today she is presenting with inflammatory type hand pain in the left as well as polyarthralgia throughout her left side in the setting of positive ESTELLA, COVID recovered, sicca symptoms. Differential includes rheumatoid arthritis, Sjogren's, undifferentiated connective tissue disease, osteoarthritis.She likely has a component of trochanteric bursitis as well. She has this large component of fatigue which is nonspecific however I wonder about sleep apnea given her history of snoring and unrefreshed sleep, she would benefit from a sleep study but will defer to PCP at this time. She also endorseddecades worth of dysthymia with mood dysregulation and always feeling down without overt depression. This could be contributing to her fatigue and can also be worsening any of her pain symptoms. We will do work-up as below. IMPRESSIONS Diagnoses: (R76.8) Positive ESTELLA (antinuclear antibody) (primary encounter diagnosis) (R20.0) Left upper extremity numbness (M79.642) Left hand pain (R29.898) Left hand weakness (M35.00) Sicca syndrome (HCC) (R53.81, R53.83) Malaise and fatigue (M25.50) Pain in joint, multiple sites (Z13.820) Encounter for screening for osteoporosis PLAN 1. Labs and x-rays as below 2. Low threshold to proceed with secondary work-up for Sjogren's including ENT and ophthalmology evaluation 3. Physical therapy for her ongoing aches and pains, trochanteric bursitis, osteoarthritis 4. Request PCP follow-up for her fatigue and sleeping difficulties, highly recommend sleep study 5. Bone density due anytime for regular screening, ordered 6. Request PCP follow-up for mood disorder, dysthymia 7. Follow-up 1 to 3 months to discuss results and next steps Orders this visit: Office Visit on 03/28/22 US HAND/WRIST SYNOVIAL SCREEN RT US HAND/WRIST SYNOVIAL SCREEN LT DXA-AXIAL SKELETON XR KNEE GENERAL 4V AP BOTH/PA BOTH/LAT/MERC BILATERAL XR HIP GENERAL 3V PELV/AP/LAT LEFT C-REACTIVE PROTEIN (CRP) SED RATE WESTERGREN COMP METABOLIC PANEL CBC + DIFF PROTEIN ELECT RND UR W/INTERP PROTEIN CREATININE RATIO URINALYSIS WITH MICROSCOPIC, REFLEX CULTURE KAPPA/STARKS,FREE,SER PROTEIN ELECTROPHORESIS SERUM W/INTERP C4 COMPLEMENT BLD C3 COMPLEMENT BLD SJOGREN ABS SSA/SSB ESTELLA BY IFA WITH REFLEX RHEUMATOID FACTOR BL IMMUNOFIXATION SCREEN, SERUM MONOCLONAL PROT UR W/INTERP CCP ANTIBODY IGG CONSULT TO RHEUM/IMMUN DISEASE CONSULT TO PHYSICAL THERAPY HYDROCODONE-ACETAMINOPHEN ORAL Return in about 4 weeks (around 04/25/2022). I spent a total of 87 minutes on the date of the service which included preparing to see the patient, [id number] patient care, completing clinical documentation, obtaining and/or reviewing separately obtained history, performing a medically appropriate examination, counseling and educating the pat ient/family/caregiver, and ordering medications, tests, or procedures. This note was partially generated with the assistance of [employer] voice recognition software. An attempt was made to correct any dictation errors however there may be some incorrect words, spellings, and punctuation. Genie Quispe MD Rheumatology Date: March 28, 2022 Time: 1:04 PM documented in this [facility] Miscellaneous Notes* Telephone Encounter - Remy Perez MD - 02/17/2022 4:21 PM EDT Noted. * Telephone Encounter - Larissa Wakefield Ma - 02/17/2022 3:46 PM EDT Pt wrote into the office a mychart message after receiving a phone call from Providers office. See mychart message. Larissa Wakefield Ma * Telephone Encounter - Mariela Dang LPN - 02/17/2022 2:54 PM EDT Spoke with pt and information listed below given. Pt verbalizes understanding. Pt was to physical therapy and given exercises to do but not sure they are doing any good. Pt has apt with Rheumatology in March. Mariela Dang LPN * Telephone Encounter - Remy Perez MD - 02/17/2022 8:37 AM EDT Let patient know I have refilled the tramadol one more time only. This was never ment to be a chronic medication. Also she was to be doing therapy and it looks like she only did one visit. After this script she will need to go to using OTC ibuprofen/Alieve or tylenol. The following approved medication requests have been transmitted electronically. Requested Prescriptions Signed Prescriptions Disp Refills traMADol (ULTRAM) 50 mg tablet 21 tablet 0 Sig: Take 1 tablet by mouth every 8 hours as needed for pain. Authorizing Provider: REMY PEREZ MD PDMP website checked and validated. All prescriptions have been APPROPRIATELY filled. No suspiciousactivity was identified. 02/17/2022 by Remy Perez MD * Telephone Encounter - Angi Mcguire MA - 02/17/2022 8:05 AM EDT Patient has been identified by name and date of : Yes Requested Prescriptions Pending Prescriptions Disp Refills traMADol (ULTRAM) 50 mg tablet 21 tablet 0 Sig: Take 1 tablet by mouth every 8 hours as needed for pain. RX INSTRUCTIONS: Patient aware RX will be sent to pharmacy. No need to notify patient. Angi Mcguire MA Wesly: 01/2022 Nov: Last refill: 02/01/2022 21 tablets documented in this [facility]10[facility]31-[facility] Miscellaneous Notes* Telephone Encounter - Larissa Wakefield Ma - 02/17/2022 3:45 PM EDT See message from pt. Pt was updated in TE today. Larissa Wakefield Ma documented in this encounterK[facility]10-27-[facility]22 Miscellaneous Notes* Telephone Encounter - New Renee LPN - 02/13/2022 1:29 PM EDT Please see pt's reply. New Renee LPN documented in this [facility] Miscellaneous Notes* Telephone Encounter - Remy Perez MD - 02/01/2022 10:02 AM EDT The following approved medication requests have been transmitted electronically. Requested Prescriptions Signed Prescriptions Disp Refills traMADol (ULTRAM) 50 mg tablet 21 tablet 0 Sig: Take 1 tablet by mouth every 8 hours as needed for pain. Authorizing Provider: REMY PEREZ MD PDMP website checked and validated. All prescriptions have been APPROPRIATELY filled. No suspiciousactivity was identified. 02/01/2022 by Remy Perez MD * Telephone Encounter - Angi Mcguire MA - 02/01/2022 8:12 AM EDT Patient has been identified by name and date of : Yes Requested Prescriptions Pending Prescriptions Disp Refills traMADol (ULTRAM) 50 mg tablet 21 tablet 0 Sig: Take 1 tablet by mouth every 8 hours as needed for pain. RX INSTRUCTIONS: Patient aware RX will be sent to pharmacy. No need to notify patient. Angi Mcguire MA Wesly: 01/2022 Nov: 06/2022 Last refill: 01/11/2022 21 tablets documented in this [facility]10-[facility] Miscellaneous Notes* Telephone Encounter - Toña Booth LPN - 01/31/2022 11:22 AM EDT Office notes were not included in pre-op clearance forms faxed back to Dr. Sanchez. Info faxed to [phone]. Toña Booth LPN documented in this encounterK[facility]10-14-2022 Miscellaneous Notes* Telephone Encounter - Yinka Messina LPN - 01/31/2022 10:41 AM EDT Preop clearance form completed and faxed. Copy of labs printed and faxed as well. TC to pt, left detailed message on secure voicemail. Pt only to return call to office /c any questions/concerns. Yinka Messina LPN * Telephone Encounter - Yinka Messina LPN - 01/31/2022 10:35 AM EDT ----- Message from Aziza Thompson PA-C sent at 01/31/2022 10:34 AM EDT ----- Urine culture was negative. Will clear for surgery documented in this encounterK[facility]10-11-2022 Miscellaneous Notes* Telephone Encounter - New Renee LPN - 01/28/2022 11:09 AM EDT Pt notified . New Renee LPN * Telephone Encounter - Aziza Thompson PA-C - 01/28/2022 10:54 AM EDT Order placed * Telephone Encounter - Joslyn Dunne Ma - 01/28/2022 10:46 AM EDT Pt notified and voiced understanding. She denies any UTI sx at this time. She is willing to come joshua do urine. Please place order for urine. Joslyn Dunne Ma * Telephone Encounter - Aziza Thompson PA-C - 01/28/2022 10:23 AM EDT Let patient know that overall labs are okay. She has small amount of hemoglobin in her urine but noRBC. Any s/s of UTI? If no, would like get an urine culture completed so that I can send to surgeonfor clearance. Her LDL is high at 166 with goal under 130. Would want her to start working on diet to see if she can get this down on her own vs starting medication. documented in this encounterK[facility]10-10-2022 History of Present illness Narrative* Aziza Thompson PA-C - 01/27/2022 10:23 AM EDT Chief Complaint Patient presents with: Pre-Op Exam Immunizations: Flu vaccination HPI Lillian Velazquez is a 66 year old female who presents here today for preop exam. Patient is scheduled for bilateral neuromas excision on 02/21/[address] Sanchez. She has hx of hypothyroid, HTN, RLS, insomnia, and those as below. Surgical hx as below. No past complications with surgeries. No past hx of CAD, NM, TIA, CVA, She denies any current symptoms of chest pain, shortness of breath, BOO Past medical history, appointments, medications, allergies reviewed. 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 Primary insomnia 11/01/2021 RLS (restless legs syndrome) 11/01/2021 On gabapentin Previous Surgical History PAST SURGICAL HISTORY Procedure Laterality Date CYST/MOLE REMOVAL Left 1977 benign cyst- Left breast PAST SURGICAL HISTORY OF 2018 cervical fusion PAST SURGICAL HISTORY OF 2017 right shoulder decompression THYROIDECTOMY 10/2018 due to goiter, no cancer TONSILLECTOMY HX 8 yo Family History FAMILY HISTORY Problem Relation Age of Onset Cancer Mother Lung? other (a. fib) Father other (TIA) Father Hyperlipidemia Father Hypertension Father Hypertension Sister Stroke Maternal Grandmother Diabetes Maternal Grandmother Ischemic Heart Disease Maternal Grandfather Heart disease Maternal Grandfather Stroke Paternal Grandmother Heart Attack Paternal Grandfather Ovarian cancer Maternal Aunt Patient Allergies ALLERGIES Allergen Reactions Augmentin [Amoxicil* GI Upset Current Medications Current Outpatient Medications on File Prior to Visit Medication Sig traMADol (ULTRAM) 50 mg tablet Take 1 tablet by mouth every 8 hours as needed for pain. gabapentin (NEURONTIN) 300 mg capsule Take 1 capsule by mouth once daily for 180 days. Take one tablet daily betamethasone dipropionate (DIPROSONE) 0.05 % cream Apply to affected area twice daily. levothyroxine (SYNTHROID) 88 mcg tablet Take 1 tablet by mouth daily before breakfast. Take one tablet daily before breakfast traZODone (DESYREL) 150 mg tablet Take 1 tablet by mouth daily at bedtime. losartan (COZAAR) 25 mg tablet Take 1 tablet by mouth once daily. Take one tablet daily mupirocin (BACTROBAN) 2 % ointment Apply to affected area three times daily. predniSONE (DELTASONE) 10 mg tablet Take 6 tabs by mouth for 3 days then 4 tabs a day for 3 days then 2 tabs a day for 3 days and then 1 tab a day for 3 days. (Patient not taking: Reported on 11/21/2021 ) No current facility-administered medications on file prior to visit. Social History Social History Tobacco Use Smoking status: Never Smokeless tobacco: Never Vaping Use Vaping Use: Never used Substance Use Topics Alcohol use: Yes Alcohol/week: 5.0 standard drinks Types: 5 Cans of beer per week Drug use: Never Review of Symptoms REVIEW OF SYSTEMS GENERAL: No weight loss, malaise or fevers HEENT: No changes in hearing or vision, no nose bleeds or other nasal problems NECK: Negative for lumps, goiter, pain and significant neck swelling RESPIRATORY: Negative for cough, hemoptysis, wheezing, COPD, dyspnea or shortness of breath CARDIOVASCULAR: Negative for chest pain, leg swelling, hypertension, CHF or palpitations GI: Negative for abdominal discomfort, blood in stools or black stools, change in bowel habit, heart burn, nausea, vomiting : No history of dysuria, frequency or incontinence MUSCULOSKELETAL: +foot pain SKIN: Negative for lesions, rash, and itching PSYCH: Negative for sleep disturbance, mood disorder and recent psychosocial stressors HEMATOLOGY/LYMPHOLOGY: Negative for prolonged bleeding, bruising easily or swollen nodes ENDOCRINE: Negative for cold or heat intolerance, polyuria, polydipsia and goiter NEURO: No history of headaches, syncope, paralysis, seizures or tremors EXAM: BP 136/78 (BP Site: Left Arm, BP Position: Sitting, BP Cuff Size: Regular Adult) Pulse 60 Temp 36.7 C (98 F) Resp 16 Wt 55.8 kg (123 lb) General Appearance: Well appearing, alert, in no acute distress, well-hydrated, well nourished.. Skin: Skin color, texture, turgor normal, no suspicious rashes or lesions on exposed skin Head: Normocephalic, no masses, lesions, tenderness or abnormalities. Eyes: Anicteric sclera. Pupils are equally round and reactive to light. Extraocular movements are intact. . Ears: External ears normal, canals clear, TMs pearly marks Neck: Supple, no adenopathy; thyroid symmetric, normal size, no bruits. Lungs: Lungs clear to auscultation. No wheezing, rhonchi, rales.. Heart: RRR without murmur, gallop, or rubs. No ectopy. Abdomen: Normal abdominal exam, Abdomen soft, non-tender. Bowel sounds normal. No masses, organomegaly. Extremities: No deformities, edema, skin discoloration, clubbing or cyanosis. Good capillary refill. . Peripheral Pulses: Normal. Neurologic: Gait normal. Reflexes normal and symmetric. Sensation grossly intact.. Health Maintenance List HEPATITIS C SCREENING Never done HIV SCREENING Never done BP CONTROLLED (<130/80) Never done DTAP,TDAP,TD(1 - Tdap) Never done LIPID SCREEN Never done DIABETES SCREEN Never done COLORECTAL CANCER SCREENING Never done SHINGRIX VACCINE(1 of 2) Never done DEPRESSION ASSESSMENT Never done COVID-19 VACCINE(4 - Booster for Pfizer series) due on 05/23/2021 BONE DENSITY Never done ADVANCE DIRECTIVE DISCUSSION Never done PNEUMOCOCCAL: 66+(1 - PCV) Never done INFLUENZA(1) Never done ANNUAL PCP TEAM CHRONIC DISEASE VISIT due on 12/18/2022 MAMMOGRAM due on 01/15/2023 Data reviewed ECG: SINUS BRADYCARDIA OTHERWISE NORMAL ECG Component Latest Ref Rng & Units 01/27/2022 WBC 3.70 - 11.00 k/uL 5.31 RBC 3.90 - 5.20 m/uL 4.15 Hemoglobin 11.5 - 15.5 g/dL 12.8 Hematocrit 36.0 - 46.0 % 38.9 MCV 80.0 - 100.0 fL 93.7 MCH 26.0 - 34.0 pg 30.8 MCHC 30.5 - 36.0 g/dL 32.9 RDW-CV 11.5 - 15.0 % 12.3 Platelet Count 150 - 400 k/uL 196 MPV 9.0 - 12.7 fL 11.0 Neut% % 61.0 Abs Neut (ANC) 1.45 - 7.50 k/uL 3.24 Lymph% % 27.3 Abs Lymph 1.00 - 4.00 k/uL 1.45 Rosebud% % 8.1 Abs Rosebud <0.87 k/uL 0.43 Eosin% % 2.1 Abs Eosin <0.46 k/uL 0.11 Baso% % 1.3 Abs Baso <0.11 k/uL 0.07 Immature Gran % % 0.2 IMMATURE GRANS (ABS) <0.10 k/uL <0.03 NRBC /100 WBC 0.0 Absolute nRBC <0.01 k/uL <0.01 DTYPE Auto Protein, Total 6.3 - 8.0 g/dL 7.0 Albumin 3.9 - 4.9 g/dL 4.7 Calcium 8.5 - 10.2 mg/dL 9.4 Bilirubin, Total 0.2 - 1.3 mg/dL 0.4 Alkaline Phosphatase 34 - 123 U/L 68 AST 13 - 35 U/L 22 ALT 7 - 38 U/L 23 Glucose 74 - 99 mg/dL 83 BUN 7 - 21 mg/dL 11 Creatinine 0.58 - 0.96 mg/dL 0.89 Sodium 136 - 144 mmol/L 140 Potassium 3.7 - 5.1 mmol/L 4.3 Chloride 97 - 105 mmol/L 103 CO2 22 - 30 mmol/L 26 Anion Gap 9 - 18 mmol/L 11 eGFR >=60 mL/min/1.73m 72 Color Yellow Straw Clarity Clear Clear Glucose, Urine Negative Negative Bilirubin, Urine Negative Negative Ketones, Urine Negative Negative Specific [place], Ur 1.005 - 1.030 1.004 (L) Hemoglobin/Blood,Ur Negative 1+ (A) pH, Urine 5.0 - 8.0 6.0 Protein, Urine Negative Negative Urobilinogen Negative Negative Nitrites Negative Negative Leukest Negative Negative WBC, Urine 0-5 /HPF 0-5 /HPF RBC, Urine 0-3 /HPF 0-3 /HPF Total Cholesterol, Nonfasting <200 mg/dL 249 (H) Triglycerides, Nonfasting <150 mg/dL 136 HDL Cholesterol, Nonfasting >39 mg/dL 56 LDL Cholesterol, Nonfasting <100 mg/dL 166 (H) Non HDL Cholesterol, Nonfasting <130 mg/dL 193 (H) VLDL Cholesterol, Nonfasting <30 mg/dL 27 Total Chol/HDL Ratio, Nonfasting <5.10 mg/dL 4.45 LDL/HDL Ratio, Nonfasting <2.54 mg/dL 2.96 (H) Hemoglobin A1C 4.3 - 5.6 % 5.2 Estimated Average Glucose mg/dL 103 TSH 0.270 - 4.200 mIU/L 1.850 ASSESSMENT/PLAN: 1. Preop examination - ICD9: V72.84, ICD10: Z01.818 (primary diagnosis) ECG shows bradycardia, but otherwise normal. HR is patient's baseline. Labs overall okay. UA shows 1+ hematuria but no RBC. Will get culture to rule out infection. If culture is neg. Patient will be cleared for surgery. - ECG COMPLETE - COMP METABOLIC PANEL - URINALYSIS, WITH MICROSCOPIC - CBC + DIFF 2. 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 Hypertension, essential - ICD9: 401.9, ICD10: I10 - fair control - Continue current medication(s) - Recommended regular aerobic exercise. - Recommend home blood pressure monitoring, to bring results in on next visit - Goal of BP <130/80 - LIPID PANEL, NONFASTING 4. Postoperative hypothyroidism - ICD9: 244.0, ICD10: E89.0 - Instructed patient on importance of taking on an empty stomach either first thing in the morning or at bedtime. - check TSH today - TSH BLD 5. Elevated blood sugar - ICD9: 790.29, ICD10: R73.9 Await labs - COMP METABOLIC PANEL - CBC + DIFF - HGB A1C 6. Encounter for lipid screening for cardiovascular disease - ICD9: V77.91, V81.2, ICD10: Z13.220, Z13.6 - LIPID PANEL, NONFASTING 7. Need for influenza vaccination - ICD9: V04.81, ICD10: Z23 - INFLUENZA SEASONAL QUADRIVALENT HIGH DOSE AGE 65+ 8. Need for vaccination - ICD9: V05.9, ICD10: Z23 Aziza Thompson PA-C documented [facility] encounter[facility] Miscellaneous Notes* Telephone Encounter - Angi Mcguire MA - 01/16/2022 8:35 AM EDT Patient notified and voiced understanding. Angi Mcguire MA * Telephone Encounter - Remy Perez MD - 01/15/2022 9:15 PM EDT Let patient know mammogram was ok. documented in this encounterK[facility]09-28-2022 NoteHNO ID: [id number] Author: RT Mazin(Rea) Service: Radiology Author Type: Technologist Type: Progress Notes Filed: 01/15/2022 3:23 PM Note Text: Radiology Service Progress Note PATIENT NAME: Lillian Velazquez DATE OF SERVICE: January 15, 2022 TIME: 3:23 PM PATIENT IDENTITY VERIFICATION COMPLETED USING TWO (2) IDENTIFIERS: Name and Date of confirmed by patient verbally. FALL SCREENING: Has the patient had 2 falls in the last year or 1 fall with injury or currently using an Ambulatory Assistive Device (Walker, Cane, Wheelchair, Crutches, etc.)? No PATIENT GENDER DATA: Female. status: : No status: NO. PATIENT RELEVANT IMPLANT DATA REVIEWED: Not Applicable RADIOLOGY DEPARTMENT: Mammography PERIPHERAL IV DATA: Not applicable SIGNED BY: COLE Retana) January 15, 2022 3:23 PMOhio[facility] [id number] Miscellaneous Notes* Letter - Mammography Coordinator - 01/15/2022 3:29 PM EDT January 15, 2022 PID: [id number] Lillian Velazquez [address] [place] [address] Dear Ms. Velazquez, We are pleased to inform you that the results of your recent breast imaging exam on 01/15/2022 are normal. Your mammogram demonstrates that you have dense breast tissue, which could hide abnormalities. Dense breast tissue, in and of itself, is a relatively common condition. Therefore, this information is not provided to cause undue concern; rather, it is to raise your awareness and promote discussion with your health care provider regarding the presence of dense breast tissue in addition to other riskfactors. Early detection of cancer is very important. We also understand recommendations regarding breast cancer screening are controversial. Please discuss with your primary care provider which strategy is best for you and whether a mammogram is right for you. Your imaging studies and report will be kept on file at [facility] as part of your permanent medical record and are available for your continuing care. Thank you for allowing us to help in meeting your health care needs. Sincerely, Dr. Stafford Interpreting Radiologist [facility] (Normal over 40) documented in this encounterK[facility]09-28-2022 History of Present illness Narrative* COLE Retana) - 01/15/2022 3:20 PM EDT Radiology Service Progress Note PATIENT NAME: Lillian Velazquez DATE OF SERVICE: January 15, 2022 TIME: 3:23 PM PATIENT IDENTITY VERIFICATION COMPLETED USING TWO (2) IDENTIFIERS: Name and Date of confirmedby patient verbally. FALL SCREENING: Has the patient had 2 falls in the last year or 1 fall with injury or currently using an Ambulatory Assistive Device (Walker, Cane, Wheelchair, Crutches, etc.)? No PATIENT GENDER DATA: Female. status: : No status: NO. PATIENT RELEVANT IMPLANT DATA REVIEWED: Not Applicable RADIOLOGY DEPARTMENT: Mammography PERIPHERAL IV DATA: Not applicable SIGNED BY: RT Mazin(Rea) January 15, 2022 3:23 PM documented in this encounterK[facility]09-24-2022 Miscellaneous Notes* Telephone Encounter - Remy Perez MD - 01/11/2022 12:08 PM EDT The following approved medication requests have been transmitted electronically. Requested Prescriptions Signed Prescriptions Disp Refills traMADol (ULTRAM) 50 mg tablet 21 tablet 0 Sig: Take 1 tablet by mouth every 8 hours as needed for pain. Authorizing Provider: REMY PEREZ MD PDMP website checked and validated. All prescriptions have been APPROPRIATELY filled. No suspiciousactivity was identified. 01/11/2022 by Remy Perez MD * Telephone Encounter - Joslyn Dunne Ma - 01/11/2022 11:37 AM EDT Last office visit: 12/18/21 F/u scheduled: 01/27/22 Last refilled on: Tramadol #21 with 0 refill on 12/18/21 Joslyn Dunne Ma documented in this encounterK[facility]09-15-2022 Miscellaneous Notes* Telephone Encounter - Aziza Thompson PA-C - 01/02/2022 1:12 PM EDT Bp okay. * Telephone Encounter - Geri Paz LPN - 01/02/2022 1:04 PM EDT Needs 90 day supply of Gabapentin sent to mail order pharmacy. Geri Paz LPN * Telephone Encounter - Geri Paz LPN - 01/02/2022 12:34 PM EDT Manual Readin/78 Pulse: 62 Home Cuff: 130/84 P: 61 BP Ne average: 131/77 P: 61 Repeat BP Check: 128/78 P57 #1 127/72 P60 #2 132/79 P62 #3 145/81 P63 #4 119/74 P67 #5 134/78 P58 #6 Reason for blood pressure check - Last BP elevated Patient is: Taking medication as prescribed Yes Took medication today Yes If no, date medication last taken N/A Experiencing side effects No BP was elevated at last appt 12/18/21. No BP medication changes were made at that time. Taking all medication as prescribed. Denies any chest pain, shortness of breath, dizziness, or headaches. Daily caffeine use. No personal history of tobacco use; no current exposure. Alert and oriented. Pt has been identified by name and birthdate: Yes Allergies reviewed: Yes Latex allergy: no. Medication - prescribed and OTC reviewed and updated: Yes Do you need any prescription refills prior to your next visit: No Health Maintenance: Reviewed and not up to date and provider notified Patient advised to continue with current medications and would be contacted if any further instructions after review by PCP. Geri Paz LPN documented in this encounterK[facility]09-15-[facility]22 History of Present illness Narrative* Geri Paz LPN - 01/02/2022 12:23 PM EDT Manual Readin/78 Pulse: 62 Home Cuff: 130/84 P: 61 BP Ne average: 131/77 P: 61 Repeat BP Check: 128/78 P57 #1 127/72 P60 #2 132/79 P62 #3 145/81 P63 #4 119/74 P67 #5 134/78 P58 #6 Reason for blood pressure check - Last BP elevated Patient is: Taking medication as prescribed Yes Took medication today Yes If no, date medication last taken N/A Experiencing side effects No BP was elevated at last appt 12/18/21. No BP medication changes were made at that time. Taking all medication as prescribed. Denies any chest pain, shortness of breath, dizziness, or headaches. Daily caffeine use. No personal history of tobacco use; no current exposure. Alert and oriented. Pt has been identified by name and birthdate: Yes Allergies reviewed: Yes Latex allergy: no. Medication - prescribed and OTC reviewed and updated: Yes Do you need any prescription refills prior to your next visit: No Health Maintenance: Reviewed and not up to date and provider notified Patient advised to continue with current medications and would be contacted if any further instructions after review by PCP. Geri Paz LPN documented in this encounterK[facility]09-14-[facility] History of Past illness Narrative* Problem Noted Date Resolved Date Cervical arthritis 01/01/2022 02/17/2022 Numbness and tingling in left arm 01/01/2022 02/17/2022 Pain of left upper extremity 01/01/2022 documented as of this encounter (statuses as of 02/17/2022) [address]14-2022 History of Past illness Narrative* Problem Noted Date Resolved Date Cervical arthritis 01/01/2022 02/17/2022 Numbness and tingling in left arm 01/01/2022 02/17/2022 Pain of left upper extremity 01/01/2022 documented as of this encounter (statuses as of 02/17/2022) [address]14-2022 History of Past illness Narrative* Problem Noted Date Resolved Date Cervical arthritis 01/01/2022 02/17/2022 Numbness and tingling in left arm 01/01/2022 02/17/2022 Pain of left upper extremity 01/01/2022 documented as of this encounter (statuses as of 03/28/2022) [address]14-2022 History of Past illness Narrative* Problem Noted Date Resolved Date Cervical arthritis 01/01/2022 02/17/2022 Numbness and tingling in left arm 01/01/2022 02/17/2022 Pain of left upper extremity 01/01/2022 documented as of this encounter (statuses as of 04/05/2022) [address]14-2022 History of Past illness Narrative* Problem Noted Date Resolved Date Cervical arthritis 01/01/2022 02/17/2022 Numbness and tingling in left arm 01/01/2022 02/17/2022 Pain of left upper extremity 01/01/2022 documented as of this encounter (statuses as of 04/25/2022) [address]14-2022 History of Past illness Narrative* Problem Noted Date Resolved Date Cervical arthritis 01/01/2022 02/17/2022 Numbness and tingling in left arm 01/01/2022 02/17/2022 Pain of left upper extremity 01/01/2022 documented as of this encounter (statuses as of 05/15/2022) [address]14-2022 History of Past illness Narrative* Problem Noted Date Resolved Date Cervical arthritis 01/01/2022 02/17/2022 Numbness and tingling in left arm 01/01/2022 02/17/2022 Pain of left upper extremity 01/01/2022 documented as of this encounter (statuses as of 05/16/2022) [address]14-2022 History of Past illness Narrative* Problem Noted Date Resolved Date Cervical arthritis 01/01/2022 02/17/2022 Numbness and tingling in left arm 01/01/2022 02/17/2022 Pain of left upper extremity 01/01/2022 documented as of this encounter (statuses as of 05/19/2022) [address]14-2022 History of Past illness Narrative* Problem Noted Date Resolved Date Cervical arthritis 01/01/2022 02/17/2022 Numbness and tingling in left arm 01/01/2022 02/17/2022 Pain of left upper extremity 01/01/2022 documented as of this encounter (statuses as of 05/21/2022) [address]14-2022 History of Past illness Narrative* Problem Noted Date Resolved Date Cervical arthritis 01/01/2022 02/17/2022 Numbness and tingling in left arm 01/01/2022 02/17/2022 Pain of left upper extremity 01/01/2022 documented as of this encounter (statuses as of 06/09/2022) [address]14-2022 History of Past illness Narrative* Problem Noted Date Resolved Date Cervical arthritis 01/01/2022 02/17/2022 Numbness and tingling in left arm 01/01/2022 02/17/2022 Pain of left upper extremity 01/01/2022 documented as of this encounter (statuses as of 06/19/2022) [facility] Narrative* Problem Noted Date Resolved Date Cervical arthritis 01/01/2022 02/17/2022 Numbness and tingling in left arm 01/01/2022 02/17/2022 Pain of left upper extremity 01/01/2022 documented as of this encounter (statuses as of 06/23/2022) [facility] Narrative* Problem Noted Date Resolved Date Cervical arthritis 01/01/2022 02/17/2022 Numbness and tingling in left arm 01/01/2022 02/17/2022 Pain of left upper extremity 01/01/2022 documented as of this encounter (statuses as of 06/24/2022) [facility] Narrative* Problem Noted Date Resolved Date Cervical arthritis 01/01/2022 02/17/2022 Numbness and tingling in left arm 01/01/2022 02/17/2022 Pain of left upper extremity 01/01/2022 documented as of this encounter (statuses as of 06/27/2022) [facility] Narrative* Problem Noted Date Resolved Date Cervical arthritis 01/01/2022 02/17/2022 Numbness and tingling in left arm 01/01/2022 02/17/2022 Pain of left upper extremity 01/01/2022 documented as of this encounter (statuses as of 06/30/2022) [address]14-2022 History of Past illness Narrative* Problem Noted Date Resolved Date Cervical arthritis 01/01/2022 02/17/2022 Numbness and tingling in left arm 01/01/2022 02/17/2022 Pain of left upper extremity 01/01/2022 documented as of this encounter (statuses as of 07/01/2022) [address]14-2022 History of Past illness Narrative* Problem Noted Date Resolved Date Cervical arthritis 01/01/2022 02/17/2022 Numbness and tingling in left arm 01/01/2022 02/17/2022 Pain of left upper extremity 01/01/2022 documented as of this encounter (statuses as of 07/01/2022) [address]14-2022 History of Past illness Narrative* Problem Noted Date Resolved Date Cervical arthritis 01/01/2022 02/17/2022 Numbness and tingling in left arm 01/01/2022 02/17/2022 Pain of left upper extremity 01/01/2022 documented as of this encounter (statuses as of 07/01/2022) [address]14-2022 History of Past illness Narrative* Problem Noted Date Resolved Date Cervical arthritis 01/01/2022 02/17/2022 Numbness and tingling in left arm 01/01/2022 02/17/2022 Pain of left upper extremity 01/01/2022 documented as of this encounter (statuses as of 07/03/2022) [address]14-2022 History of Past illness Narrative* Problem Noted Date Resolved Date Cervical arthritis 01/01/2022 02/17/2022 Numbness and tingling in left arm 01/01/2022 02/17/2022 Pain of left upper extremity 01/01/2022 documented as of this encounter (statuses as of 07/03/2022) [address]14-2022 History of Past illness Narrative* Problem Noted Date Resolved Date Cervical arthritis 01/01/2022 02/17/2022 Numbness and tingling in left arm 01/01/2022 02/17/2022 Pain of left upper extremity 01/01/2022 documented as of this encounter (statuses as of 07/04/2022) [address]14-2022 History of Past illness Narrative* Problem Noted Date Resolved Date Cervical arthritis 01/01/2022 02/17/2022 Numbness and tingling in left arm 01/01/2022 02/17/2022 Pain of left upper extremity 01/01/2022 documented as of this encounter (statuses as of 07/14/2022) [address]14-2022 History of Past illness Narrative* Problem Noted Date Resolved Date Cervical arthritis 01/01/2022 02/17/2022 Numbness and tingling in left arm 01/01/2022 02/17/2022 Pain of left upper extremity 01/01/2022 documented as of this encounter (statuses as of 07/14/2022) [address]14-2022 History of Past illness Narrative* Problem Noted Date Resolved Date Cervical arthritis 01/01/2022 02/17/2022 Numbness and tingling in left arm 01/01/2022 02/17/2022 Pain of left upper extremity 01/01/2022 documented as of this encounter (statuses as of 07/17/2022) [address]14-2022 History of Past illness Narrative* Problem Noted Date Resolved Date Cervical arthritis 01/01/2022 02/17/2022 Numbness and tingling in left arm 01/01/2022 02/17/2022 Pain of left upper extremity 01/01/2022 documented as of this encounter (statuses as of 08/11/2022) [address]14-2022 History of Past illness Narrative* Problem Noted Date Resolved Date Cervical arthritis 01/01/2022 02/17/2022 Numbness and tingling in left arm 01/01/2022 02/17/2022 Pain of left upper extremity 01/01/2022 documented as of this encounter (statuses as of 08/19/2022) [address]14-2022 History of Past illness Narrative* Problem Noted Date Resolved Date Cervical arthritis 01/01/2022 02/17/2022 Numbness and tingling in left arm 01/01/2022 02/17/2022 Pain of left upper extremity 01/01/2022 documented as of this encounter (statuses as of 08/29/2022) [address]14-2022 History of Past illness Narrative* Problem Noted Date Resolved Date Cervical arthritis 01/01/2022 02/17/2022 Numbness and tingling in left arm 01/01/2022 02/17/2022 Pain of left upper extremity 01/01/2022 documented as of this encounter (statuses as of 09/24/2022) [address]14-2022 History of Past illness Narrative* Problem Noted Date Resolved Date Cervical arthritis 01/01/2022 02/17/2022 Numbness and tingling in left arm 01/01/2022 02/17/2022 Pain of left upper extremity 01/01/2022 documented as of this encounter (statuses as of 10/15/2022) [address]14-2022 History of Past illness Narrative* Problem Noted Date Diagnosed Date Resolved Date Cervical arthritis 01/01/2022 2 Numbness and tingling in left arm 01/01/2022 02/17/2022 Pain of left upper extremity 01/01/2022 02/17/2022 documented as of this encounter (statuses as of 11/29/2022) [address]14-2022 History of Past illness Narrative* Problem Noted Date Diagnosed Date Resolved Date Cervical arthritis 01/01/2022 2 Numbness and tingling in left arm 01/01/2022 02/17/2022 Pain of left upper extremity 01/01/2022 02/17/2022 documented as of this encounter (statuses as of 12/12/2022) [address]14-2022 History of Past illness Narrative* Problem Noted Date Diagnosed Date Resolved Date Cervical arthritis 01/01/2022 2 Numbness and tingling in left arm 01/01/2022 02/17/2022 Pain of left upper extremity 01/01/2022 02/17/2022 documented as of this encounter (statuses as of 12/17/2022) [address]14-2022 History of Past illness Narrative* Problem Noted Date Diagnosed Date Resolved Date Cervical arthritis 01/01/2022 2 Numbness and tingling in left arm 01/01/2022 02/17/2022 Pain of left upper extremity 01/01/2022 02/17/2022 documented as of this encounter (statuses as of 12/24/2022) [facility] Past illness Narrative* Problem Noted Date Diagnosed Date Resolved Date Cervical arthritis 01/01/2022 2 Numbness and tingling in left arm 01/01/2022 02/17/2022 Pain of left upper extremity 01/01/2022 02/17/2022 documented as of this encounter (statuses as of 12/25/2022) [facility] Narrative* Problem Noted Date Diagnosed Date Resolved Date Cervical arthritis 01/01/2022 2 Numbness and tingling in left arm 01/01/2022 02/17/2022 Pain of left upper extremity 01/01/2022 02/17/2022 documented as of this encounter (statuses as of 12/26/2022) [facility] Narrative* Problem Noted Date Diagnosed Date Resolved Date Cervical arthritis 01/01/2022 2 Numbness and tingling in left arm 01/01/2022 02/17/2022 Pain of left upper extremity 01/01/2022 02/17/2022 documented as of this encounter (statuses as of 12/29/2022) [facility] Narrative* Problem Noted Date Diagnosed Date Resolved Date Cervical arthritis 01/01/2022 2 Numbness and tingling in left arm 01/01/2022 02/17/2022 Pain of left upper extremity 01/01/2022 02/17/2022 documented as of this encounter (statuses as of 01/16/2023) [address]14-2022 History of Past illness Narrative* Problem Noted Date Diagnosed Date Resolved Date Cervical arthritis 01/01/2022 2 Numbness and tingling in left arm 01/01/2022 02/17/2022 Pain of left upper extremity 01/01/2022 02/17/2022 documented as of this encounter (statuses as of 02/03/2023) [address]14-2022 History of Past illness Narrative* Problem Noted Date Diagnosed Date Resolved Date Cervical arthritis 01/01/2022 2 Numbness and tingling in left arm 01/01/2022 02/17/2022 Pain of left upper extremity 01/01/2022 02/17/2022 documented as of this encounter (statuses as of 02/12/2023) [address]14-2022 History of Past illness Narrative* Problem Noted Date Diagnosed Date Resolved Date Cervical arthritis 01/01/2022 2 Numbness and tingling in left arm 01/01/2022 02/17/2022 Pain of left upper extremity 01/01/2022 02/17/2022 documented as of this encounter (statuses as of 02/13/2023) [address]14-2022 History of Past illness Narrative* Problem Noted Date Diagnosed Date Resolved Date Cervical arthritis 01/01/2022 2 Numbness and tingling in left arm 01/01/2022 02/17/2022 Pain of left upper extremity 01/01/2022 02/17/2022 documented as of this encounter (statuses as of 02/23/2023) [address]14-2022 History of Past illness Narrative* Problem Noted Date Diagnosed Date Resolved Date Cervical arthritis 01/01/2022 2 Numbness and tingling in left arm 01/01/2022 02/17/2022 Pain of left upper extremity 01/01/2022 02/17/2022 documented as of this encounter (statuses as of 02/23/2023) [address]14-2022 History of Past illness Narrative* Problem Noted Date Diagnosed Date Resolved Date Cervical arthritis 01/01/2022 2 Numbness and tingling in left arm 01/01/2022 02/17/2022 Pain of left upper extremity 01/01/2022 02/17/2022 documented as of this encounter (statuses as of 02/23/2023) [address]14-2022 History of Past illness Narrative* Problem Noted Date Diagnosed Date Resolved Date Cervical arthritis 01/01/2022 2 Numbness and tingling in left arm 01/01/2022 02/17/2022 Pain of left upper extremity 01/01/2022 02/17/2022 documented as of this encounter (statuses as of 04/09/2023) [address]14-2022 History of Past illness Narrative* Problem Noted Date Diagnosed Date Resolved Date Cervical arthritis 01/01/2022 2 Numbness and tingling in left arm 01/01/2022 02/17/2022 Pain of left upper extremity 01/01/2022 02/17/2022 documented as of this encounter (statuses as of 04/19/2023) [facility] [facility] History of Past illness Narrative* Problem Noted Date Diagnosed Date Resolved Date Cervical arthritis 01/01/2022 2 Numbness and tingling in left arm 01/01/2022 02/17/2022 Pain of left upper extremity 01/01/2022 02/17/2022 documented as of this encounter (statuses as of 05/23/2023) [address]14-2022 History of Past illness Narrative* Problem Noted Date Diagnosed Date Resolved Date Cervical arthritis 01/01/2022 2 Numbness and tingling in left arm 01/01/2022 02/17/2022 Pain of left upper extremity 01/01/2022 02/17/2022 documented as of this encounter (statuses as of 06/11/2023) [address]14-2022 History of Past illness Narrative* Problem Noted Date Diagnosed Date Resolved Date Cervical arthritis 01/01/2022 2 Numbness and tingling in left arm 01/01/2022 02/17/2022 Pain of left upper extremity 01/01/2022 02/17/2022 documented as of this encounter (statuses as of 06/24/2023) [address]14-2022 History of Past illness Narrative* Problem Noted Date Diagnosed Date Resolved Date Cervical arthritis 01/01/2022 2 Numbness and tingling in left arm 01/01/2022 02/17/2022 Pain of left upper extremity 01/01/2022 02/17/2022 documented as of this encounter (statuses as of 06/25/2023) [address]14-2022 History of Past illness Narrative* Problem Noted Date Diagnosed Date Resolved Date Cervical arthritis 01/01/2022 2 Numbness and tingling in left arm 01/01/2022 02/17/2022 Pain of left upper extremity 01/01/2022 02/17/2022 documented as of this encounter (statuses as of 06/29/2023) [address]14-2022 History of Past illness Narrative* Problem Noted Date Diagnosed Date Resolved Date Cervical arthritis 01/01/2022 2 Numbness and tingling in left arm 01/01/2022 02/17/2022 Pain of left upper extremity 01/01/2022 02/17/2022 documented as of this encounter (statuses as of 07/06/2023) [address]14-2022 History of Past illness Narrative* Problem Noted Date Diagnosed Date Resolved Date Cervical arthritis 01/01/2022 2 Numbness and tingling in left arm 01/01/2022 02/17/2022 Pain of left upper extremity 01/01/2022 02/17/2022 documented as of this encounter (statuses as of 07/24/2023) [address]14-2022 History of Past illness Narrative* Problem Noted Date Diagnosed Date Resolved Date Cervical arthritis 01/01/2022 2 Numbness and tingling in left arm 01/01/2022 02/17/2022 Pain of left upper extremity 01/01/2022 02/17/2022 documented as of this encounter (statuses as of 07/27/2023) [address]14-2022 History of Past illness Narrative* Problem Noted Date Diagnosed Date Resolved Date Cervical arthritis 01/01/2022 2 Numbness and tingling in left arm 01/01/2022 02/17/2022 Pain of left upper extremity 01/01/2022 02/17/2022 documented as of this encounter (statuses as of 08/04/2023) [address]14-2022 History of Past illness Narrative* Problem Noted Date Diagnosed Date Resolved Date Cervical arthritis 01/01/2022 2 Numbness and tingling in left arm 01/01/2022 02/17/2022 Pain of left upper extremity 01/01/2022 02/17/2022 documented as of this encounter (statuses as of 08/07/2023) [facility]09-14-2022 History of Past illness Narrative* Problem Noted Date Diagnosed Date Resolved Date Cervical arthritis 01/01/2022 2 Numbness and tingling in left arm 01/01/2022 02/17/2022 Pain of left upper extremity 01/01/2022 02/17/2022 documented as of this encounter (statuses as of 08/07/2023) [facility]09-11-[facility]22 Miscellaneous Notes* Telephone Encounter - Remy Perez MD - 12/29/2021 1:05 PM EDT Please help patient get Rheum appt set up documented in this [facility] Miscellaneous Notes* Telephone Encounter - Anabelle Gomes Cma - 12/27/2021 9:10 AM EDT Patient notified and verbalized understanding Anabelle Gomes Cma * Telephone Encounter - Remy Perez MD - 12/26/2021 8:17 PM EDT Let patient know her nerve studies came back normal. See how PHYSICAL THERAPY goes but if no improvement will need to try to get a MRI of the neck. * Telephone Encounter - New eRnee LPN - 12/26/2021 7:42 AM EDT Received results of pt's EMG. New Renee LPN Scan on 12/25/2021 3:12 PM by External Provider: Neurology documented in this encounterK[facility] History of Present illness Narrative* Remy Perez MD - 12/19/2021 3:56 PM EDT Patient my charted with BP: BP 104/76 Pulse 68 Resp 14 Wt 54.9 kg (121 lb) * Remy Perez MD - 12/18/2021 3:05 PM EDT Chief Complaint Patient presents with: Recheck HPI Lillian Velazquez is a 66 year old female who presents here today for follow up on left arm pain and numbness. Patient has NCS/EMG set up to be done in Dec and just got PHYSICAL THERAPY set up to start. Still having the pain in the left arm and hand along with the numbness that comes and goes. No increase inthe weakness. . Patient's lab work from 11/21/2021 showed CRP, ESR and TSH were all ok. Rheumatoid factor was negative. ESTELLA was 1/160 and has had a past Hx of it being elevated and w/u was normal. Past medical history, appointments, medications, allergies reviewed. 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 Primary insomnia 11/01/2021 RLS (restless legs syndrome) 11/01/2021 On gabapentin Previous Surgical History PAST SURGICAL HISTORY Procedure Laterality Date CYST/MOLE REMOVAL Left 1977 benign cyst PAST SURGICAL HISTORY OF 2018 cervical fusion PAST SURGICAL HISTORY OF 2017 right shoulder decompression THYROIDECTOMY 10/2018 due to goiter, no cancer TONSILLECTOMY HX 8 yo Family History No family history on file. Patient Allergies ALLERGIES Allergen Reactions Augmentin [Amoxicil* GI Upset Current Medications Current Outpatient Medications on File Prior to Visit Medication Sig levothyroxine (SYNTHROID) 88 mcg tablet Take 1 tablet by mouth daily before breakfast. Take one tablet daily before breakfast traZODone (DESYREL) 150 mg tablet Take 1 tablet by mouth daily at bedtime. losartan (COZAAR) 25 mg tablet Take 1 tablet by mouth once daily. Take one tablet daily gabapentin (NEURONTIN) 300 mg capsule Take 1 capsule by mouth once daily for 180 days. Take one tablet daily traMADol (ULTRAM) 50 mg tablet Take 1 tablet by mouth every 8 hours as needed for pain. betamethasone dipropionate (DIPROSONE) 0.05 % cream Apply to affected area twice daily. levothyroxine (SYNTHROID) 88 mcg tablet Take 1 tablet by mouth daily before breakfast. Take one tablet daily before breakfast traZODone (DESYREL) 150 mg tablet Take 1 tablet by mouth daily at bedtime. losartan (COZAAR) 25 mg tablet Take 1 tablet by mouth once daily. Take one tablet daily mupirocin (BACTROBAN) 2 % ointment Apply to affected area three times daily. predniSONE (DELTASONE) 10 mg tablet Take 6 tabs by mouth for 3 days then 4 tabs a day for 3 days then 2 tabs a day for 3 days and then 1 tab a day for 3 days. (Patient not taking: Reported on 11/21/2021 ) No current facility-administered medications on file prior to visit. Social History Social History Tobacco Use Smoking status: Never Smokeless tobacco: Never Review of Symptoms REVIEW OF SYSTEMS See HPI EXAM: BP 160/95 (BP Site: Left Arm, BP Position: Sitting, BP Cuff Size: Regular Adult) Pulse 68 Resp 14 Wt 54.9 kg (121 lb) BP 152/90 Pulse 68 Resp 14 Wt 54.9 kg (121 lb) General Appearance: Well appearing, alert, in no acute distress, well-hydrated, well nourished.. Musculoskeletal: there is mild swelling the the 2nd and 3rd MP joints bilaterally but only tender over the left 3rd MP joint. Elbows maryellen normal. No pain to palpation the cervical spine or muscles intthe shoulder to neck area. Strength testing at the elbow was normal and symmetrical. Magnetometer Operator strength was not symmetrical: 5/5 on the right and 4/5 on the left. Tinel's and phalen's testing was positiveon the left. Peripheral Pulses: Normal. Neurologic: Gait normal. Sensation to light touch and crainal nerves 2-12 intact. Health Maintenance List HEPATITIS C SCREENING Never done HIV SCREENING Never done BP CONTROLLED (<130/80) Never done DTAP,TDAP,TD(1 - Tdap) Never done MAMMOGRAM Never done LIPID SCREEN Never done DIABETES SCREEN Never done COLORECTAL CANCER SCREENING Never done SHINGRIX VACCINE(1 of 2) Never done COVID-19 VACCINE(4 - Booster for Pfizer series) due on 07/27/2021 ADVANCE DIRECTIVE DISCUSSION Never done BONE DENSITY due on 2021 PNEUMOCOCCAL: 65+(1 - PCV) due on 2021 INFLUENZA(1) due on 12/19/2021 ANNUAL PCP TEAM CHRONIC DISEASE VISIT due on 11/21/2022 DEPRESSION SCREENING due on 11/21/2022 Data reviewed Component Latest Ref Rng & Units 11/21/2021 ESTELLA Negative Positive (A) ESTELLA Titer 1:160 ESTELLA Pattern Nuclear homogenous Rheumatoid Factor <16 IU/mL <10 WSR 0 - 20 mm/hr 8 CRP <0.9 mg/dL <0.3 TSH 0.270 - 4.200 mIU/L 3.610 11/22/2021 5:23 PM - Radiology, [place] In Impression IMPRESSION: Osteoarthrosis. No acute osseous abnormality identified. Coding Auditor: PSCB Transcribe Date/Time: Nov 22 2021 4:25P Dictated by : PAWAN GARDINER MD This examination was interpreted and the report reviewed and electronically signed by: PAWAN GARDINER MD on Nov 22 2021 4:27PM EST Results-Findings * * *Final Report* * * DATE OF EXAM: Nov 21 2021 9:46AM WOX [id number] - XR HAND 3V PA/LAT/OBL LT / PROCEDURE REASON: multiple diagnoses * * * * Physician Interpretation * * * * Left hand radiograph HISTORY: 65 years old Clinical information: Left hand weakness Left hand pain No injury, Left hand pain through the middle, ring , and small finger as well as the bee metacarpal area x 2 weeks TECHNIQUE: Images: XR HAND 3V PA/LAT/OBL LT Comparison: None. RESULT: Findings: Narrowing of the scaphoid trapezial joint space. No fracture or dislocation identified. No soft tissue abnormality identified. A/P ASSESSMENT/PLAN: 1. Left upper extremity numbness - ICD9: 782.0, ICD10: R20.0 - awaiting NCS/EMG - patient to proceed with PT 2. Left hand pain - ICD9: 729.5, ICD10: M79.642 - as per #1 3. Left arm pain - ICD9: 729.5, ICD10: M79.602 - as per #1 4. Left hand weakness - ICD9: 728.87, ICD10: R29.898 - as per #1 If nerve studies normal will proceed with Rheum consult. Requested Prescriptions Signed Prescriptions Disp Refills traMADol (ULTRAM) 50 mg tablet 21 tablet 0 Sig: Take 1 tablet by mouth every 8 hours as needed for pain. PDMP website checked and validated. All prescriptions have been APPROPRIATELY filled. No suspiciousactivity was identified. 12/18/2021 by Remy Perez MD F/u 6 months complete PE Remy Perez MD documented in this [facility]08-31-2022 Nurse Note* Angi Mcguire MA - 12/18/2021 4:16 PM EDT 148/103 true BP average 146/106 138/97 156/101 147/102 153/107 Patient was scheduled for a 2 week nurse visit. Instructed to check her blood pressure at home and bring her cuff and those readings to the visit. If she is getting high reading she instructed to contact office before visit. Angi Mcguire MA documented in this [facility]08-15-2022 Miscellaneous Notes* Telephone Encounter - New Renee LPN - 12/02/2021 7:09 AM EDT Please see pt's message. New Renee LPN documented in this [facility]08-08-2022 Miscellaneous Notes* Telephone Encounter - New Renee LPN - 11/25/2021 8:31 AM EDT Pt advised of both results and instructions. Pt verbalizes understanding. New Renee LPN * Telephone Encounter - New Renee LPN - 11/25/2021 8:27 AM EDT ----- Message from Aziza Thompson PA-C sent at 11/24/2021 5:06 PM EDT ----- X-ray shows some arthritis but otherwise okay. Continue as we discussed. Aziza * Telephone Encounter - New Renee LPN - 11/25/2021 8:27 AM EDT ----- Message from Aziza Thompson PA-C sent at 11/24/2021 5:08 PM EDT ----- Estella positive. Given history of this, we can monitor for now. [facility] this [facility] Miscellaneous Notes* Telephone Encounter - Remy Perez MD - 11/22/2021 5:50 PM EDT The following approved medication requests have been transmitted electronically. Signed Prescriptions Disp Refills levothyroxine (SYNTHROID) 88 mcg tablet 90 tablet 1 Sig: Take 1 tablet by mouth daily before breakfast. Take one tablet daily before breakfast GRIFFIN: No traZODone (DESYREL) 150 mg tablet 90 tablet 1 Sig: Take 1 tablet by mouth daily at bedtime. GRIFFIN: No losartan (COZAAR) 25 mg tablet 90 tablet 1 Sig: Take 1 tablet by mouth once daily. Take one tablet daily GRIFFIN: No gabapentin (NEURONTIN) 300 mg capsule 30 capsule 5 Sig: Take 1 capsule by mouth once daily for 180 days. Take one tablet daily GRIFFIN: No Remy Perez MD * Telephone Encounter - Angi Mcguire MA - 11/22/2021 10:27 AM EDT Please see other phone note with short supply. Patient has been identified by name and date of : Yes Pending Prescriptions Disp Refills LEVOTHYROXINE 88 MCG TABLET 90 tablet 3 Sig: Take 1 tablet by mouth daily before breakfast. Take one tablet daily before breakfast GRIFFIN: No TRAZODONE 150 MG TABLET 90 tablet 3 Sig: Take 1 tablet by mouth daily at bedtime. GRIFFIN: No LOSARTAN 25 MG TABLET 90 tablet 3 Sig: Take 1 tablet by mouth once daily. Take one tablet daily GRIFFIN: No GABAPENTIN 300 MG CAPSULE 30 capsule 5 Sig: Take 1 capsule by mouth once daily for 180 days. Take one tablet daily GRIFFIN: No RX INSTRUCTIONS: Patient aware RX will be sent to pharmacy. No need to notify patient. Angi Mcguire MA documented in this [facility]08-05-2022 Miscellaneous Notes* Telephone Encounter - New Renee LPN - 11/22/2021 10:54 AM EDT Patient notified of results and provider's instructions. Patient verbalizes understanding. New Renee LPN * Telephone Encounter - New Renee LPN - 11/22/2021 10:51 AM EDT ----- Message from Aziza Thompson PA-C sent at 11/22/2021 10:39 AM EDT ----- Labs look okay. Continue as we discussed for now. documented in this [facility]08-04-2022 Miscellaneous Notes* Telephone Encounter - New Renee LPN - 11/21/2021 11:30 AM EDT Aziza has been updated of pt's message. New Renee LPN documented in this [facility]08-04-20[facility] History of Present illness Narrative* Jennifer Pa, RT(R) - 11/21/2021 9:50 AM EDT Radiology Service Progress Note PATIENT NAME: Lillian Velazquez DATE OF SERVICE: November 21, 2021 TIME: 9:34 AM PATIENT IDENTITY VERIFICATION COMPLETED USING TWO (2) IDENTIFIERS: Name and Date of confirmedby patient verbally. FALL SCREENING: Has the patient had 2 falls in the last year or 1 fall with injury or currently using an Ambulatory Assistive Device (Walker, Cane, Wheelchair, Crutches, etc.)? No PATIENT GENDER DATA: Female. status: : No status: NO. PATIENT RELEVANT IMPLANT DATA REVIEWED: Yes RADIOLOGY DEPARTMENT: General X-ray: Exam(s) Completed: Upper Extremity X- Ray(s): Hand, left PERIPHERAL IV DATA: Not applicable SIGNED BY: RT Destin(R) November 21, 2021 9:34 AM documented in this encounterK[facility] History of Present illness Narrative* Aziza Thompson PA-C - 11/21/2021 9:03 AM EDT Chief Complaint Patient presents with: Musculoskeletal Problem: left hand and fingers HPI Lillian Velazquez is a 65 year old female who presents here today for Above Complaints.. Patient was seen 1 month ago for hand/arm pain. Hasn't had EMG yet but states she is scheduled for it. Patient did feel like the prednisone helped with her arm pain but she developed worsening hand pain. Pain feels different than previously. Feels more pain in the joints. Currently effecting mostly 3-5th digits. Past medical history, appointments, medications, allergies reviewed. 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 Primary insomnia 11/01/2021 RLS (restless legs syndrome) 11/01/2021 On gabapentin Previous Surgical History PAST SURGICAL HISTORY Procedure Laterality Date CYST/MOLE REMOVAL Left 1977 benign cyst PAST SURGICAL HISTORY OF 2018 cervical fusion PAST SURGICAL HISTORY OF 2017 right shoulder decompression THYROIDECTOMY 10/2018 due to goiter, no cancer TONSILLECTOMY HX 8 yo Family History No family history on file. Patient Allergies ALLERGIES Allergen Reactions Augmentin [Amoxicil* GI Upset Current Medications Current Outpatient Medications on File Prior to Visit Medication Sig levothyroxine (SYNTHROID) 88 mcg tablet Take 88 mcg by mouth daily before breakfast. Take one tablet daily before breakfast gabapentin (NEURONTIN) 300 mg capsule Take 300 mg by mouth once daily. Take one tablet daily traZODone (DESYREL) 150 mg tablet Take 150 mg by mouth daily at bedtime. losartan (COZAAR) 25 mg tablet Take 25 mg by mouth once daily. Take one tablet daily diazePAM (VALIUM) 5 mg tablet Take 1 tablet by mouth every 12 hours as needed for up to 30 days. traMADol (ULTRAM) 50 mg tablet Take 1 tablet by mouth every 8 hours as needed for pain. predniSONE (DELTASONE) 10 mg tablet Take 6 tabs by mouth for 3 days then 4 tabs a day for 3 days then 2 tabs a day for 3 days and then 1 tab a day for 3 days. (Patient not taking: Reported on 11/21/2021 ) No current facility-administered medications on file prior to visit. Social History Social History Tobacco Use Smoking status: Never Smoker Smokeless tobacco: Never Used Substance Use Topics Alcohol use: Not on file Drug use: Not on file Review of Symptoms REVIEW OF SYSTEMS see hpi EXAM: BP 120/82 (BP Site: Left Arm, BP Position: Sitting, BP Cuff Size: Regular Adult) Pulse 68 Temp 36.3 C (97.4 F) Resp 16 Wt 54.9 kg (121 lb) General Appearance: Well appearing, alert, in no acute distress, well-hydrated, well nourished.. MSK: +tenderness to palp of PIP joints. Minimal swelling. FROM. Decreased strength noted. . Health Maintenance List HEPATITIS C SCREENING Never done HIV SCREENING Never done BP CONTROLLED (<130/80) Never done DTAP,TDAP,TD(1 - Tdap) Never done PAP TESTING Never done HPV TESTING Never done MAMMOGRAM Never done LIPID SCREEN Never done DIABETES SCREEN Never done COLORECTAL CANCER SCREENING Never done SHINGRIX VACCINE(1 of 2) Never done COVID-19 VACCINE(4 - Booster for Pfizer series) due on 07/27/2021 INFLUENZA(1) due on 12/19/2021 ANNUAL PCP TEAM CHRONIC DISEASE VISIT due on 11/21/2022 DEPRESSION SCREENING due on 11/21/2022 Data reviewed ASSESSMENT/PLAN: 1. Left hand weakness - ICD9: 728.87, ICD10: R29.898 (primary diagnosis) Await EMG Will also check labs and xray. Refill of tramadol send for prn use. - RHEUMATOID FACTOR BL - SED RATE WESTERGREN - C-REACTIVE PROTEIN (CRP) - ESTELLA BY IFA SCREEN - XR HAND GENERAL 3V PA/LAT/OBL LEFT - TRAMADOL 50 MG TABLET 2. Left hand pain - ICD9: 729.5, ICD10: M79.642 - RHEUMATOID FACTOR BL - SED RATE WESTERGREN - C-REACTIVE PROTEIN (CRP) - ESTELLA BY IFA SCREEN - XR HAND GENERAL 3V PA/LAT/OBL LEFT 3. Positive ESTELLA (antinuclear antibody) - ICD9: 795.79, ICD10: R76.8 4. Numbness and tingling in left hand - ICD9: 782.0, ICD10: R20.0, R20.2 - TSH BLD 5. Left arm pain - ICD9: 729.5, ICD10: M79.602 - TRAMADOL 50 MG TABLET 6. Numbness and tingling of left upper extremity - ICD9: 782.0, ICD10: R20.0, R20.2 - TRAMADOL 50 MG TABLET Aziza Thompson PA-C documented in this [facility] Miscellaneous Notes* Telephone Encounter - New Renee LPN - 11/06/2021 12:39 PM EDT Pt notified of same via My Chart and was advised to call to schedule PT appointment. New Renee LPN * Telephone Encounter - Remy Perez MD - 11/06/2021 12:27 PM EDT PHYSICAL THERAPY orders placed. * Telephone Encounter - Kamilla Romanajacquelin Wilcox - 11/06/2021 10:53 AM EDT Patient sent Vital Systemshart message requesting PT Please place order an will have her call to scheduled Kamilla Mccallangel Brenden * Telephone Encounter - Kamilla Romanajacquelin Wilcox - 11/05/2021 10:11 AM EDT Left message for patient to call office back Kamilla Avendanojacquelin Wilcox * Telephone Encounter - Remy Perez MD - 11/05/2021 10:07 AM EDT Let patient know the next step would be PHYSICAL THERAPY for the neck. If interested I can place the order. * Telephone Encounter - Mariela Dang LPN - 11/05/2021 9:14 AM EDT Spoke with pt and information listed below given. Pt verbalizes understanding. Pt asking if there is anything further she can do regarding the results below. Please advise pt calher or may send my chart message. Mariela Dang LPN * Telephone Encounter - Kamilla Romanajacquelin Wilcox - 11/05/2021 9:00 AM EDT Left vm for patient to call back Kamilla Romanajacquelin Wilcox * Telephone Encounter - Remy Perez MD - 11/04/2021 10:02 PM EDT Let patient know neck x-ray shows no acute issues. There is moderate arthritic changes on the left causing narrowing where the nerve roots come out. documented in this [facility] History of Present illness Narrative* Remy Perez MD - 11/01/2021 3:36 PM EDT Chief Complaint No chief complaint on file. HPI Lillian Velazquez is a 65 year old female who presents here today for Left shoulder pain. Had covid 3weeks ago. 1 week ago starting having pain in left hand that is now radiating into her arm shoulderand shoulder blade. Past medical history, appointments, medications, allergies reviewed. Pain started in the left hand palmar side, feels like a burn. The sensation wraps around to the back of her hand then up the back of the arm. She is also having pain in the left upper back. She will get sharper episodes of pain in the back of the upper arm. She has been awoken at night due to the pain. Has some decreased strength in the hand. No neck pain. Even with her right upper arm pain in the past she had no neck pain and had a right sided cervical disc herniation. This all seemed to startabout 2 weeks after having COVID (tested positive 10/11/2021). No skin rash Previous Medical History PAST MEDICAL HISTORY Diagnosis Date History of COVID-19 11/01/2021 10/11/2021 Hypertension, essential 11/01/2021 Postoperative hypothyroidism 11/01/2021 Removed due to goiter. Primary insomnia 11/01/2021 RLS (restless legs syndrome) 11/01/2021 On gabapentin Previous Surgical History PAST SURGICAL HISTORY Procedure Laterality Date CYST/MOLE REMOVAL Left 1977 benign cyst PAST SURGICAL HISTORY OF 2018 cervical fusion THYROIDECTOMY 10/2018 due to goiter, no cancer TONSILLECTOMY HX 8 yo Family History No family history on file. Patient Allergies ALLERGIES Not on File Current Medications No current outpatient medications on file prior to visit. No current facility-administered medications on file prior to visit. Social History Social History Tobacco Use Smoking status: Not on file Smokeless tobacco: Not on file Substance Use Topics Alcohol use: Not on file Drug use: Not on file Review of Symptoms REVIEW OF SYSTEMS See HPI EXAM: BP 132/86 (BP Site: Right Arm, BP Position: Sitting, BP Cuff Size: Regular Adult) Pulse 68 Resp16 Wt 54.4 kg (120 lb) General Appearance: Well appearing, alert, in no acute distress, well-hydrated, well nourished.. Neck: Supple, no adenopathy; thyroid symmetric, normal size, no bruits, no pain to palpation of thecervical spine. Back:no pain to palpation of vertebrae, good flexion and extension, good range of motion of neck, reflexes are 2+ and symmetric in the right forearm and wrist., sensory to light touch was intact and symmetrical in the upper extremities. Magnetometer Operator strength was just slightly weaker on the left. There is mild pain to palpation of the medial portion of the supraspinatus muscle body on the left. Musculoskeletal: see back section. Tenel's test was negative. Phalen's test was positive on the left. Peripheral Pulses: Normal. Neurologic: Reflexes normal and symmetric in the upper extremities. Sensation to light touch intact.. Health Maintenance List DEPRESSION SCREENING Never done HEPATITIS C SCREENING Never done HIV SCREENING Never done DTAP,TDAP,TD(1 - Tdap) Never done PAP TESTING Never done HPV TESTING Never done MAMMOGRAM Never done LIPID SCREEN Never done DIABETES SCREEN Never done COLORECTAL CANCER SCREENING Never done SHINGRIX VACCINE(1 of 2) Never done COVID-19 VACCINE(4 - Booster for Pfizer series) due on 07/27/2021 INFLUENZA(1) due on 12/19/2021 Data reviewed A/P ASSESSMENT/PLAN: 1. Left arm pain - ICD9: 729.5, ICD10: M79.602 (primary diagnosis) Check - XR CERV OTHER 4V AP/LAT/OBL Patient to increase her gabapentin 300 mg to one twice a day. Will also place on a steroid taper. Will treat prn with - DIAZEPAM 5 MG TABLET - TRAMADOL 50 MG TABLET 2. Left hand weakness - ICD9: 728.87, ICD10: R29.898 Check - XR CERV OTHER 4V AP/LAT/OBL - DIAZEPAM 5 MG TABLET - TRAMADOL 50 MG TABLET 3. Numbness and tingling of left upper extremity - ICD9: 782.0, ICD10: R20.0, R20.2 check - XR CERV OTHER 4V AP/LAT/OBL - DIAZEPAM 5 MG TABLET - TRAMADOL 50 MG TABLET Will get NCS/EMG. 4. Upper back pain - ICD9: 724.5, ICD10: M54.9 - As above PDMP website checked and validated. All prescriptions have been APPROPRIATELY filled. No suspiciousactivity was identified. 11/01/2021 by Remy Perez MD Based on symptoms my assumption is that she may had a cervicle disk herniation on the left. Signed Prescriptions Disp Refills predniSONE (DELTASONE) 10 mg tablet 39 tablet 0 Sig: Take 6 tabs by mouth for 3 days then 4 tabs a day for 3 days then 2 tabs a day for 3 days and then 1 tab a day for 3 days. diazePAM (VALIUM) 5 mg tablet 30 tablet 1 Sig: Take 1 tablet by mouth every 12 hours as needed for up to 30 days. UZIEL Class: C-IV traMADol (ULTRAM) 50 mg tablet 21 tablet 0 Sig: Take 1 tablet by mouth every 8 hours as needed for pain. UZIEL Class: C-IV F/u in 5 weeks re-eval. I spent a total of 40 minutes on the date of the service which included preparing to see the patient, [id number] patient care, completing clinical documentation, performing a medically appropriate examination, counseling and educating the patient/family/caregiver and ordering medications, tests, or procedures. [facility] Diagnosis Onset Date Resolution Status Cough acute Sinusitis acute [facility] [place] Work Phone: Evaluation note* Diagnosis Left arm pain- Primary Pain in limb Left hand weakness Muscle weakness (generalized) Numbness and tingling of left upper extremity [facility] Pain of left upper extremity- Primary Left arm weakness Other musculoskeletal symptoms referable to limbs Left hand weakness Muscle weakness (generalized) Numbness and tingling in left arm Disturbance of skin sensation Cervical arthritis Cervical spondylosis without myelopathy [facility] Diagnosis Left hand weakness- Primary Muscle weakness (generalized) Left hand pain Pain in limb Positive ESTELLA (antinuclear antibody) Other and unspecified nonspecific immunological findings Numbness and tingling in left hand Disturbance of skin sensation Left arm pain Pain in limb Numbness and tingling of left upper extremity [facility] Encounter for screening mammogram for breast cancer [facility] Diagnosis Left upper extremity numbness Disturbance of skin sensation Left hand pain Pain in limb Left arm pain Pain in limb Left hand weakness Muscle weakness (generalized) Numbness and tingling of left upper extremity [facility] Diagnosis Left upper extremity numbness- Primary Disturbance of skin sensation Left hand pain Pain in limb Left hand weakness Muscle weakness (generalized) Positive ESTELLA (antinuclear antibody) Other and unspecified nonspecific immunological findings [facility] noteNo assessment information [facility] Work Phone: Evaluation note* Diagnosis Hypertension, essential- Primary Unspecified essential hypertension [facility]* Diagnosis Left arm pain Pain in limb Left hand weakness Muscle weakness (generalized) Numbness and tingling of left upper extremity [facility] Diagnosis Encounter for screening mammogram for breast cancer [facility] Diagnosis Preop examination- Primary Preoperative examination, unspecified 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, including hip Hypertension, essential Unspecified essential hypertension Postoperative hypothyroidism Postsurgical hypothyroidism Elevated blood sugar Other abnormal glucose Encounter for lipid screening for cardiovascular disease Screening for lipoid disorders Need for influenza vaccination Need for prophylactic vaccination and inoculation against influenza Need for vaccination Need for prophylactic vaccination and inoculation against unspecified single disease [facility] Diagnosis Microscopic hematuria- Primary [facility] Diagnosis Left arm pain Pain in limb Left hand weakness Muscle weakness (generalized) Numbness and tingling of left upper extremity [facility] Diagnosis Left arm pain Pain in limb Left hand weakness Muscle weakness (generalized) Numbness and tingling of left upper extremity [facility]* Diagnosis Positive ESTELLA (antinuclear antibody)- Primary Other and unspecified nonspecific immunological findings Left upper extremity numbness Disturbance of skin sensation Left hand pain Pain in limb Left hand weakness Muscle weakness (generalized) Sicca syndrome (HCC) Sicca syndrome Malaise and fatigue Other malaise and fatigue Pain in joint, multiple sites Encounter for screening for osteoporosis Special screening for osteoporosis [facility]* Diagnosis Bacterial sinusitis- Primary Unspecified sinusitis (chronic) [facility]* Diagnosis Lumbar back pain- Primary Lumbago [facility]* Diagnosis Bone lesion- Primary Disorder of bone and cartilage, unspecified Abnormal x-ray Other nonspecific (abnormal) findings on radiological and other examinations of body structure documented in [facility]* Diagnosis Lumbar back pain- Primary Lumbago [facility]* Diagnosis Encounter for Medicare annual wellness exam- Primary Routine general medical examination at a health care facility Advanced care planning/counseling discussion Other specified counseling Hyperlipidemia, mixed Mixed hyperlipidemia Hypertension, essential Unspecified essential hypertension Postoperative hypothyroidism Postsurgical hypothyroidism Elevated blood sugar Other abnormal glucose RLS (restless legs syndrome) Restless legs syndrome (RLS) Screening for colon cancer Special screening for malignant neoplasms, colon Primary insomnia Persistent disorder of initiating or maintaining sleep Encounter for gynecological examination without abnormal finding Routine gynecological examination documented [facility]* Diagnosis Screening for colon cancer Special screening for malignant neoplasms, colon documented in this encounter [facility] note* Diagnosis Fall (on) (from) unspecified stairs and steps, subsequent encounter- Primary Acute pain of right shoulder documented in [facility]* Diagnosis Acute pain of right shoulder- Primary [facility]* Diagnosis Dislocation of right shoulder joint, subsequent encounter- Primary documented in this encounter [facility]* Diagnosis Fall (on) (from) unspecified stairs and steps, subsequent encounter- Primary Anxiety with fear [facility]* Diagnosis Trochanteric bursitis of left hip- Primary Enthesopathy of hip region Acute pain of right shoulder [facility]* Diagnosis Fall (on) (from) unspecified stairs and steps, subsequent encounter- Primary documented [facility]* Diagnosis Fall (on) (from) unspecified stairs and steps, subsequent encounter- Primary [facility]* Diagnosis Fall (on) (from) unspecified stairs and steps, subsequent encounter- Primary [facility]* Diagnosis Fall (on) (from) unspecified stairs and steps, subsequent encounter- Primary [facility] Diagnosis Fall (on) (from) unspecified stairs and steps, subsequent encounter- Primary [facility]* Diagnosis Fall (on) (from) unspecified stairs and steps, subsequent encounter- Primary [facility]* Diagnosis Postoperative hypothyroidism- Primary Postsurgical hypothyroidism Elevated blood sugar Other abnormal glucose Hypertension, essential Unspecified essential hypertension Primary insomnia Persistent disorder of initiating or maintaining sleep Hyperlipidemia, mixed Mixed hyperlipidemia [facility]* Diagnosis Fall (on) (from) unspecified stairs and steps, subsequent encounter- Primary [facility]* Diagnosis Diverticulosis- Primary Diverticulosis of colon (without mention of hemorrhage) Hyperplastic polyp of sigmoid colon Irregular bowel habits Other specified disorder of intestines Abdominal cramping Abdominal pain, unspecified site History of episiotomy Fecal soiling Fecal smearing [facility]* Diagnosis Acute pain of both knees- Primary Muscle pain, cervical Cervicalgia [facility]* Diagnosis Encounter for screening for malignant neoplasm of colon- Primary Special screening for malignant neoplasms, colon Special screening for malignant neoplasms, colon [facility]* Diagnosis Bone lesion Disorder of bone and cartilage, unspecified Abnormal x-ray Other nonspecific (abnormal) findings on radiological and other examinations of body structure documented [facility]* Diagnosis Acute cough- Primary [facility]* Diagnosis Rhinosinusitis- Primary Unspecified sinusitis (chronic) [facility]* Diagnosis Bacterial sinusitis- Primary Unspecified sinusitis (chronic) [facility]* Diagnosis Sinobronchitis- Primary Unspecified sinusitis (chronic) [facility]* Diagnosis Fall (on) (from) unspecified stairs and steps, subsequent encounter [facility]* Diagnosis Bacterial sinusitis- Primary Unspecified sinusitis (chronic) [facility]* Diagnosis Encounter for Medicare annual wellness exam- Primary Routine general medical examination at a health care facility Advance directive discussed with patient Other specified counseling Postoperative hypothyroidism Postsurgical hypothyroidism Hyperlipidemia, mixed Mixed hyperlipidemia Hypertension, essential Unspecified essential hypertension Primary insomnia Persistent disorder of initiating or maintaining sleep SHAYLA (generalized anxiety disorder) Generalized anxiety disorder Asymptomatic postmenopausal status RLS (restless legs syndrome) Restless legs syndrome (RLS) Elevated blood sugar Other abnormal glucose Rhinitis, unspecified type [facility] Diagnosis Elevated serum creatinine- Primary Other nonspecific findings on examination of blood [facility]* Diagnosis Fatigue, unspecified type- Primary Primary insomnia Persistent disorder of initiating or maintaining sleep SHAYLA (generalized anxiety disorder) Generalized anxiety disorder [facility] Asymptomatic postmenopausal status [facility]* Diagnosis Osteopenia, senile- Primary Disorder of bone and cartilage, unspecified [facility]* Diagnosis Fall (on) (from) unspecified stairs and steps, subsequent encounter [facility]* Diagnosis Radiculopathy of lumbar region- Primary Thoracic or lumbosacral neuritis or radiculitis, unspecified Chronic midline low back pain without sciatica Decreased reflex Abnormal reflex [facility]* Diagnosis Radiculopathy of lumbar region Thoracic or lumbosacral neuritis or radiculitis, unspecified Chronic midline low back pain without sciatica Decreased reflex Abnormal reflex [facility] Diagnosis Lumbar back pain- Primary Lumbago Spondylosis of lumbar region without myelopathy or radiculopathy Lumbosacral spondylosis without myelopathy [facility] Diagnosis Acute cough [facility] Diagnosis Acute pain of both knees [facility]* Diagnosis Fall (on) (from) unspecified stairs and steps, subsequent encounter [facility] Diagnosis Lumbar back pain Lumbago [facility]* Diagnosis Positive ESTELLA (antinuclear antibody) Other and unspecified nonspecific immunological findings [facility]* Diagnosis Acute pain of right shoulder [facility]* Diagnosis Left hand weakness Muscle weakness (generalized) Left hand pain Pain in limb [facility]* Diagnosis Left arm pain Pain in limb Left hand weakness Muscle weakness (generalized) Numbness and tingling of left upper extremity [facility]* Diagnosis Lumbar back pain Lumbago Spondylosis of lumbar region without myelopathy or radiculopathy Lumbosacral spondylosis without myelopathy [facility]* Diagnosis Hypertension, essential- Primary Unspecified essential hypertension Hyperlipidemia, mixed Mixed hyperlipidemia Elevated blood sugar Other abnormal glucose Postoperative hypothyroidism Postsurgical hypothyroidism RLS (restless legs syndrome) Restless legs syndrome (RLS) Encounter for immunization Need for other specified prophylactic vaccination against single bacterial disease [facility]* Diagnosis Lumbar back pain- Primary Lumbago [facility] Diagnosis Sinobronchitis- Primary Unspecified sinusitis (chronic) Acute cough [facility]* Diagnosis Lumbar back pain- Primary Lumbago [facility]* Diagnosis Lumbar back pain- Primary Lumbago [facility] Diagnosis Fall (on) (from) unspecified stairs and steps, subsequent encounter [facility]* Diagnosis Chronic left hip pain- Primary Pain in joint, pelvic region and thigh Plantar fasciitis of right foot Plantar fascial fibromatosis [facility] Diagnosis Chronic left hip pain Pain in joint, pelvic region and thigh Plantar fasciitis of right foot Plantar fascial fibromatosis [facility]* Diagnosis Plantar fasciitis- Primary Plantar fascial fibromatosis [facility]* Diagnosis Plantar fasciitis of right foot Plantar fascial fibromatosis [facility]* Diagnosis Encounter for screening mammogram for breast cancer [facility] Diagnosis Encounter for screening mammogram for breast cancer Encounter for screening mammogram for breast cancer [facility] Diagnosis Lumbar back pain- Primary Lumbago Spondylosis of lumbar region without myelopathy or radiculopathy Lumbosacral spondylosis without myelopathy [facility] Diagnosis Plantar fasciitis of right foot- Primary Plantar fascial fibromatosis Lumbar back pain Lumbago Spondylosis of lumbar region without myelopathy or radiculopathy Lumbosacral spondylosis without myelopathy [facility] Diagnosis Encounter for Medicare annual wellness exam- Primary Routine general medical examination at a health care facility Advance directive discussed with patient Other specified counseling Screening for depression Hypertension, essential Unspecified essential hypertension Encounter for screening examination for other mental health and behavioral disorders Hyperlipidemia, mixed Mixed hyperlipidemia Postoperative hypothyroidism Postsurgical hypothyroidism Palpitations Elevated blood sugar Other abnormal glucose Plantar fasciitis Plantar fascial fibromatosis RLS (restless legs syndrome) Restless legs syndrome (RLS) Nocturnal leg cramps Sleep related leg cramps Claudication Peripheral vascular disease, unspecified [facility] Diagnosis Plantar fasciitis of right foot- Primary Plantar fascial fibromatosis [facility] Diagnosis Essential (primary) hypertension- Primary Unspecified essential hypertension Palpitations Muscle cramp Cramp of limb Generalized anxiety disorder [facility]* Diagnosis Onset Date Resolution Status Admit Date Dyslipidemia chronic September 19 1:58pm Generalized anxiety disorder chronic September 19, 2024 1:58pm Hypertension, essential chronic J 2024 1:58pm Palpitations chronic September 19 1:58pm SVT (supraventricular tachycardia) chronic September 19, 2024 1 :58pm [facility] Work Phone: Evaluation note* Diagnosis Postoperative hypothyroidism- Primary Postsurgical hypothyroidism [facility] Diagnosis Nocturnal leg cramps- Primary Sleep related leg cramps RLS (restless legs syndrome) Restless legs syndrome (RLS) Bradycardia, drug induced Other specified cardiac dysrhythmias Hyperlipidemia, mixed Mixed hyperlipidemia [facility] Diagnosis Postoperative hypothyroidism- Primary Postsurgical hypothyroidism [facility] Diagnosis Plantar fasciitis of right foot- Primary Plantar fascial fibromatosis [facility] Diagnosis Nocturnal leg cramps- Primary Sleep related leg cramps Hypertension, essential Unspecified essential hypertension documented [facility] Discharge instructions Additional Instructions Implant Used?: [facility] Work Phone: Instructions* Name Dates Details Patient Instructions Indication:BMI 21.0-21.9, adult Start:08-Jun-2020 Instruction Type:Provider Instructions for Treatment How to Access Health Informa tion Online using Patient Portal and 3rd [employer] Apps Indication:BMI 21.0-21.9, adult Start:08-Jun-2020 Instruction Type:Patient Education How to access health informa tion online Indication:BMI 21.0-21.9, adult Start:21-Mar-2020 Instruction Type:Patient Education How to access health informa tion online - Detail Indication:BMI 21.0-21.9, adult Start:21-Mar-2020 Instruction Type:Patient Education Patient Instructions Indication:BMI 21.0-21.9, adult Start:21-Mar-2020 Instruction Type:Provider Instructions for Treatment Patient Instructions Indication:Hyperlipidemia Start:28-Feb-2020 Instruction Type:Provider Instructions for Treatment How to access health informa tion online Indication:Nonsmoker Start:28-Feb-2020 Instruction Type:Patient Education How to access health informa tion online - Detail Indication:Nonsmoker Start:28-Feb-2020 Instruction Type:Patient Education Patient Instructions Indication:Nonsmoker Start:28-Feb-2020 Instruction Type:Provider Instructions for Treatment Patient Instructions Indication:Restless leg Start:17-Jan-2020 Instruction Type:Provider Instructions for Treatment How to access health informa tion online Indication:Hypertension Start:17-Jan-2020 Instruction Type:Patient Education How to access health informa tion online - Detail Indication:Hypertension Start:17-Jan-2020 Instruction Type:Patient Education Patient Instructions Indication:Hypertension Start:17-Jan-2020 Instruction Type:Provider Instructions for Treatment [facility] Work Phone: Instructions* Name Dates Details Patient Instructions Indication:Nonsmoker Start:18-Sep-2020 Instruction Type:Provider Instructions for Treatment How to Access Health Informa tion Online using Patient Portal and 3rd [employer] Apps Indication:Nonsmoker Start:18-Sep-2020 Instruction Type:Patient Education Patient Instructions Indication:BMI 21.0-21.9, adult Start:08-Jun-2020 Instruction Type:Provider Instructions for Treatment How to Access Health Informa tion Online using Patient Portal and [employer]rd [employer] Apps Indication:BMI 21.0-21.9, adult Start:08-Jun-2020 Instruction Type:Patient Education How to access health informa tion online Indication:BMI 21.0-21.9, adult Start:21-Mar-2020 Instruction Type:Patient Education How to access health informa tion online - Detail Indication:BMI 21.0-21.9, adult Start:21-Mar-2020 Instruction Type:Patient Education Patient Instructions Indication:BMI 21.0-21.9, adult Start:21-Mar-2020 Instruction Type:Provider Instructions for Treatment Patient Instructions Indication:Hyperlipidemia Start:28-Feb-2020 Instruction Type:Provider Instructions for Treatment How to access health informa tion online Indication:Nonsmoker Start:28-Feb-2020 Instruction Type:Patient Education How to access health informa tion online - Detail Indication:Nonsmoker Start:28-Feb-2020 Instruction Type:Patient Education Patient Instructions Indication:Nonsmoker Start:28-Feb-2020 Instruction Type:Provider Instructions for Treatment Patient Instructions Indication:Restless leg Start:17-Jan-2020 Instruction Type:Provider Instructions for Treatment How to access health informa tion online Indication:Hypertension Start:17-Jan-2020 Instruction Type:Patient Education How to access health informa tion online - Detail Indication:Hypertension Start:17-Jan-2020 Instruction Type:Patient Education Patient Instructions Indication:Hypertension Start:17-Jan-2020 Instruction Type:Provider Instructions for Treatment [facility]; [facility] Work Phone: Instructions* Name Dates Details Patient Instructions Indication:Nonsmoker Start:18-Sep-2020 Instruction Type:Provider Instructions for Treatment How to Access Health Informa tion Online using Patient Portal and [employer]rd [employer] Apps Indication:Nonsmoker Start:18-Sep-2020 Instruction Type:Patient Education Patient Instructions Indication:BMI 21.0-21.9, adult Start:08-Jun-2020 Instruction Type:Provider Instructions for Treatment How to Access Health Informa tion Online using Patient Portal and [employer]rd [employer] Apps Indication:BMI 21.0-21.9, adult Start:08-Jun-2020 Instruction Type:Patient Education How to access health informa tion online Indication:BMI 21.0-21.9, adult Start:21-Mar-2020 Instruction Type:Patient Education How to access health informa tion online - Detail Indication:BMI 21.0-21.9, adult Start:21-Mar-2020 Instruction Type:Patient Education Patient Instructions Indication:BMI 21.0-21.9, adult Start:21-Mar-2020 Instruction Type:Provider Instructions for Treatment Patient Instructions Indication:Hyperlipidemia Start:28-Feb-2020 Instruction Type:Provider Instructions for Treatment How to access health informa tion online Indication:Nonsmoker Start:28-Feb-2020 Instruction Type:Patient Education How to access health informa tion online - Detail Indication:Nonsmoker Start:28-Feb-2020 Instruction Type:Patient Education Patient Instructions Indication:Nonsmoker Start:28-Feb-2020 Instruction Type:Provider Instructions for Treatment Patient Instructions Indication:Restless leg Start:17-Jan-2020 Instruction Type:Provider Instructions for Treatment How to access health informa tion online Indication:Hypertension Start:17-Jan-2020 Instruction Type:Patient Education How to access health informa tion online - Detail Indication:Hypertension Start:17-Jan-2020 Instruction Type:Patient Education Patient Instructions Indication:Hypertension Start:17-Jan-2020 Instruction Type:Provider Instructions for Treatment [facility]; [facility] Work Phone: Instructions* Name Dates Details Patient Instructions Indication:Nonsmoker Start:21-Sep-2020 Instruction Type:Provider Instructions for Treatment How to Access Health Informa tion Online using Patient Portal and [employer] Apps Indication:Nonsmoker Start:21-Sep-2020 Instruction Type:Patient Education Patient Instructions Indication:Nonsmoker Start:18-Sep-2020 Instruction Type:Provider Instructions for Treatment How to Access Health Informa tion Online using Patient Portal and [employer] Apps Indication:Nonsmoker Start:18-Sep-2020 Instruction Type:Patient Education Patient Instructions Indication:BMI 21.0-21.9, adult Start:08-Jun-2020 Instruction Type:Provider Instructions for Treatment How to Access Health Informa tion Online using Patient Portal and [employer]rd [employer] Apps Indication:BMI 21.0-21.9, adult Start:08-Jun-2020 Instruction Type:Patient Education How to access health informa tion online Indication:BMI 21.0-21.9, adult Start:21-Mar-2020 Instruction Type:Patient Education How to access health informa tion online - Detail Indication:BMI 21.0-21.9, adult Start:21-Mar-2020 Instruction Type:Patient Education Patient Instructions Indication:BMI 21.0-21.9, adult Start:21-Mar-2020 Instruction Type:Provider Instructions for Treatment Patient Instructions Indication:Hyperlipidemia Start:28-Feb-2020 Instruction Type:Provider Instructions for Treatment How to access health informa tion online Indication:Nonsmoker Start:28-Feb-2020 Instruction Type:Patient Education How to access health informa tion online - Detail Indication:Nonsmoker Start:28-Feb-2020 Instruction Type:Patient Education Patient Instructions Indication:Nonsmoker Start:28-Feb-2020 Instruction Type:Provider Instructions for Treatment Patient Instructions Indication:Restless leg Start:17-Jan-2020 Instruction Type:Provider Instructions for Treatment How to access health informa tion online Indication:Hypertension Start:17-Jan-2020 Instruction Type:Patient Education How to access health informa tion online - Detail Indication:Hypertension Start:17-Jan-2020 Instruction Type:Patient Education Patient Instructions Indication:Hypertension Start:17-Jan-2020 Instruction Type:Provider Instructions for Treatment [facility]; [facility] Work Phone: Instructions* Name Dates Details Patient Instructions Indication:BMI 21.0-21.9, adult Start:11-Jan-2021 Instruction Type:Provider Instructions for Treatment How to Access Health Informa tion Online using Patient Portal and [employer]rd [employer] Apps Indication:BMI 21.0-21.9, adult Start:11-Jan-2021 Instruction Type:Patient Education Patient Instructions Indication:Nonsmoker Start:21-Sep-2020 Instruction Type:Provider Instructions for Treatment How to Access Health Informa tion Online using Patient Portal and [employer] Apps Indication:Nonsmoker Start:21-Sep-2020 Instruction Type:Patient Education Patient Instructions Indication:Nonsmoker Start:18-Sep-2020 Instruction Type:Provider Instructions for Treatment How to Access Health Informa tion Online using Patient Portal and [employer] Apps Indication:Nonsmoker Start:18-Sep-2020 Instruction Type:Patient Education Patient Instructions Indication:BMI 21.0-21.9, adult Start:08-Jun-2020 Instruction Type:Provider Instructions for Treatment How to Access Health Informa tion Online using Patient Portal and [employer] Apps Indication:BMI 21.0-21.9, adult Start:08-Jun-2020 Instruction Type:Patient Education How to access health informa tion online Indication:BMI 21.0-21.9, adult Start:21-Mar-2020 Instruction Type:Patient Education How to access health informa tion online - Detail Indication:BMI 21.0-21.9, adult Start:21-Mar-2020 Instruction Type:Patient Education Patient Instructions Indication:BMI 21.0-21.9, adult Start:21-Mar-2020 Instruction Type:Provider Instructions for Treatment Patient Instructions Indication:Hyperlipidemia Start:28-Feb-2020 Instruction Type:Provider Instructions for Treatment How to access health informa tion online Indication:Nonsmoker Start:28-Feb-2020 Instruction Type:Patient Education How to access health informa tion online - Detail Indication:Nonsmoker Start:28-Feb-2020 Instruction Type:Patient Education Patient Instructions Indication:Nonsmoker Start:28-Feb-2020 Instruction Type:Provider Instructions for Treatment Patient Instructions Indication:Restless leg Start:17-Jan-2020 Instruction Type:Provider Instructions for Treatment How to access health informa tion online Indication:Hypertension Start:17-Jan-2020 Instruction Type:Patient Education How to access health informa tion online - Detail Indication:Hypertension Start:17-Jan-2020 Instruction Type:Patient Education Patient Instructions Indication:Hypertension Start:17-Jan-2020 Instruction Type:Provider Instructions for Treatment [facility]; [facility] Work Phone: Instructions* Name Dates Details Patient Instructions Indication:Nonsmoker Start:03-May-2021 Instruction Type:Provider Instructions for Treatment How to Access Health Informa tion Online using Patient Portal and [employer] Apps Indication:Nonsmoker Start:03-May-2021 Instruction Type:Patient Education Patient Instructions Indication:BMI 21.0-21.9, adult Start:11-Jan-2021 Instruction Type:Provider Instructions for Treatment How to Access Health Informa tion Online using Patient Portal and [employer] Apps Indication:BMI 21.0-21.9, adult Start:11-Jan-2021 Instruction Type:Patient Education Patient Instructions Indication:Nonsmoker Start:21-Sep-2020 Instruction Type:Provider Instructions for Treatment How to Access Health Informa tion Online using Patient Portal and [employer] Apps Indication:Nonsmoker Start:21-Sep-2020 Instruction Type:Patient Education Patient Instructions Indication:Nonsmoker Start:18-Sep-2020 Instruction Type:Provider Instructions for Treatment How to Access Health Informa tion Online using Patient Portal and [employer] Apps Indication:Nonsmoker Start:18-Sep-2020 Instruction Type:Patient Education Patient Instructions Indication:BMI 21.0-21.9, adult Start:08-Jun-2020 Instruction Type:Provider Instructions for Treatment How to Access Health Informa tion Online using Patient Portal and [employer] Apps Indication:BMI 21.0-21.9, adult Start:08-Jun-2020 Instruction Type:Patient Education How to access health informa tion online Indication:BMI 21.0-21.9, adult Start:21-Mar-2020 Instruction Type:Patient Education How to access health informa tion online - Detail Indication:BMI 21.0-21.9, adult Start:21-Mar-2020 Instruction Type:Patient Education Patient Instructions Indication:BMI 21.0-21.9, adult Start:21-Mar-2020 Instruction Type:Provider Instructions for Treatment Patient Instructions Indication:Hyperlipidemia Start:28-Feb-2020 Instruction Type:Provider Instructions for Treatment How to access health informa tion online Indication:Nonsmoker Start:28-Feb-2020 Instruction Type:Patient Education How to access health informa tion online - Detail Indication:Nonsmoker Start:28-Feb-2020 Instruction Type:Patient Education Patient Instructions Indication:Nonsmoker Start:28-Feb-2020 Instruction Type:Provider Instructions for Treatment Patient Instructions Indication:Restless leg Start:17-Jan-2020 Instruction Type:Provider Instructions for Treatment How to access health informa tion online Indication:Hypertension Start:17-Jan-2020 Instruction Type:Patient Education How to access health informa tion online - Detail Indication:Hypertension Start:17-Jan-2020 Instruction Type:Patient Education Patient Instructions Indication:Hypertension Start:17-Jan-2020 Instruction Type:Provider Instructions for Treatment [facility]; [facility] Work Phone: Instructions* Name Dates Details Patient Instructions Indication:Nonsmoker Start:03-May-2021 Instruction Type:Provider Instructions for Treatment How to Access Health Informa tion Online using Patient Portal and [employer] Apps Indication:Nonsmoker Start:03-May-2021 Instruction Type:Patient Education Patient Instructions Indication:BMI 21.0-21.9, adult Start:11-Jan-2021 Instruction Type:Provider Instructions for Treatment How to Access Health Informa tion Online using Patient Portal and [employer] Apps Indication:BMI 21.0-21.9, adult Start:11-Jan-2021 Instruction Type:Patient Education Patient Instructions Indication:Nonsmoker Start:21-Sep-2020 Instruction Type:Provider Instructions for Treatment How to Access Health Informa tion Online using Patient Portal and [employer] Apps Indication:Nonsmoker Start:21-Sep-2020 Instruction Type:Patient Education Patient Instructions Indication:Nonsmoker Start:18-Sep-2020 Instruction Type:Provider Instructions for Treatment How to Access Health Informa tion Online using Patient Portal and [employer] Apps Indication:Nonsmoker Start:18-Sep-2020 Instruction Type:Patient Education Patient Instructions Indication:BMI 21.0-21.9, adult Start:08-Jun-2020 Instruction Type:Provider Instructions for Treatment How to Access Health Informa tion Online using Patient Portal and [employer] Apps Indication:BMI 21.0-21.9, adult Start:08-Jun-2020 Instruction Type:Patient Education How to access health informa tion online Indication:BMI 21.0-21.9, adult Start:21-Mar-2020 Instruction Type:Patient Education How to access health informa tion online - Detail Indication:BMI 21.0-21.9, adult Start:21-Mar-2020 Instruction Type:Patient Education Patient Instructions Indication:BMI 21.0-21.9, adult Start:21-Mar-2020 Instruction Type:Provider Instructions for Treatment Patient Instructions Indication:Hyperlipidemia Start:28-Feb-2020 Instruction Type:Provider Instructions for Treatment How to access health informa tion online Indication:Nonsmoker Start:28-Feb-2020 Instruction Type:Patient Education How to access health informa tion online - Detail Indication:Nonsmoker Start:28-Feb-2020 Instruction Type:Patient Education Patient Instructions Indication:Nonsmoker Start:28-Feb-2020 Instruction Type:Provider Instructions for Treatment Patient Instructions Indication:Restless leg Start:17-Jan-2020 Instruction Type:Provider Instructions for Treatment How to access health informa tion online Indication:Hypertension Start:17-Jan-2020 Instruction Type:Patient Education How to access health informa tion online - Detail Indication:Hypertension Start:17-Jan-2020 Instruction Type:Patient Education Patient Instructions Indication:Hypertension Start:17-Jan-2020 Instruction Type:Provider Instructions for Treatment [facility]; [facility] Work Phone: Instructions* Name Dates Details Patient Instructions Indication:Nonsmoker Start:03-May-2021 Instruction Type:Provider Instructions for Treatment How to Access Health Informa tion Online using Patient Portal and [employer] Apps Indication:Nonsmoker Start:03-May-2021 Instruction Type:Patient Education Patient Instructions Indication:BMI 21.0-21.9, adult Start:11-Jan-2021 Instruction Type:Provider Instructions for Treatment How to Access Health Informa tion Online using Patient Portal and [employer] Apps Indication:BMI 21.0-21.9, adult Start:11-Jan-2021 Instruction Type:Patient Education Patient Instructions Indication:Nonsmoker Start:21-Sep-2020 Instruction Type:Provider Instructions for Treatment How to Access Health Informa tion Online using Patient Portal and [employer] Apps Indication:Nonsmoker Start:21-Sep-2020 Instruction Type:Patient Education Patient Instructions Indication:Nonsmoker Start:18-Sep-2020 Instruction Type:Provider Instructions for Treatment How to Access Health Informa tion Online using Patient Portal and [employer] Apps Indication:Nonsmoker Start:18-Sep-2020 Instruction Type:Patient Education Patient Instructions Indication:BMI 21.0-21.9, adult Start:08-Jun-2020 Instruction Type:Provider Instructions for Treatment How to Access Health Informa tion Online using Patient Portal and [employer] Apps Indication:BMI 21.0-21.9, adult Start:08-Jun-2020 Instruction Type:Patient Education How to access health informa tion online Indication:BMI 21.0-21.9, adult Start:21-Mar-2020 Instruction Type:Patient Education How to access health informa tion online - Detail Indication:BMI 21.0-21.9, adult Start:21-Mar-2020 Instruction Type:Patient Education Patient Instructions Indication:BMI 21.0-21.9, adult Start:21-Mar-2020 Instruction Type:Provider Instructions for Treatment Patient Instructions Indication:Hyperlipidemia Start:28-Feb-2020 Instruction Type:Provider Instructions for Treatment How to access health informa tion online Indication:Nonsmoker Start:28-Feb-2020 Instruction Type:Patient Education How to access health informa tion online - Detail Indication:Nonsmoker Start:28-Feb-2020 Instruction Type:Patient Education Patient Instructions Indication:Nonsmoker Start:28-Feb-2020 Instruction Type:Provider Instructions for Treatment Patient Instructions Indication:Restless leg Start:17-Jan-2020 Instruction Type:Provider Instructions for Treatment How to access health informa tion online Indication:Hypertension Start:17-Jan-2020 Instruction Type:Patient Education How to access health informa tion online - Detail Indication:Hypertension Start:17-Jan-2020 Instruction Type:Patient Education Patient Instructions Indication:Hypertension Start:17-Jan-2020 Instruction Type:Provider Instructions for Treatment [facility]; [facility] Work Phone: Instructions* Name Dates Details Patient Instructions Indication:Nonsmoker Start:18-Jun-2021 Instruction Type:Provider Instructions for Treatment How to Access Health Informa tion Online using Patient Portal and [employer] Apps Indication:Nonsmoker Start:18-Jun-2021 Instruction Type:Patient Education Patient Instructions Indication:Nonsmoker Start:03-May-2021 Instruction Type:Provider Instructions for Treatment How to Access Health Informa tion Online using Patient Portal and [employer] Apps Indication:Nonsmoker Start:03-May-2021 Instruction Type:Patient Education Patient Instructions Indication:BMI 21.0-21.9, adult Start:11-Jan-2021 Instruction Type:Provider Instructions for Treatment How to Access Health Informa tion Online using Patient Portal and [employer] Apps Indication:BMI 21.0-21.9, adult Start:11-Jan-2021 Instruction Type:Patient Education Patient Instructions Indication:Nonsmoker Start:21-Sep-2020 Instruction Type:Provider Instructions for Treatment How to Access Health Informa tion Online using Patient Portal and [employer] Apps Indication:Nonsmoker Start:21-Sep-2020 Instruction Type:Patient Education Patient Instructions Indication:Nonsmoker Start:18-Sep-2020 Instruction Type:Provider Instructions for Treatment How to Access Health Informa tion Online using Patient Portal and [employer] Apps Indication:Nonsmoker Start:18-Sep-2020 Instruction Type:Patient Education Patient Instructions Indication:BMI 21.0-21.9, adult Start:08-Jun-2020 Instruction Type:Provider Instructions for Treatment How to Access Health Informa tion Online using Patient Portal and [employer] Apps Indication:BMI 21.0-21.9, adult Start:08-Jun-2020 Instruction Type:Patient Education How to access health informa tion online Indication:BMI 21.0-21.9, adult Start:21-Mar-2020 Instruction Type:Patient Education How to access health informa tion online - Detail Indication:BMI 21.0-21.9, adult Start:21-Mar-2020 Instruction Type:Patient Education Patient Instructions Indication:BMI 21.0-21.9, adult Start:21-Mar-2020 Instruction Type:Provider Instructions for Treatment Patient Instructions Indication:Hyperlipidemia Start:28-Feb-2020 Instruction Type:Provider Instructions for Treatment How to access health informa tion online Indication:Nonsmoker Start:28-Feb-2020 Instruction Type:Patient Education How to access health informa tion online - Detail Indication:Nonsmoker Start:28-Feb-2020 Instruction Type:Patient Education Patient Instructions Indication:Nonsmoker Start:28-Feb-2020 Instruction Type:Provider Instructions for Treatment Patient Instructions Indication:Restless leg Start:17-Jan-2020 Instruction Type:Provider Instructions for Treatment How to access health informa tion online Indication:Hypertension Start:17-Jan-2020 Instruction Type:Patient Education How to access health informa tion online - Detail Indication:Hypertension Start:17-Jan-2020 Instruction Type:Patient Education Patient Instructions Indication:Hypertension Start:17-Jan-2020 Instruction Type:Provider Instructions for Treatment [facility]; [facility] Work Phone: Instructions* Name Dates Details Patient Instructions Indication:Nonsmoker Start:18-Jun-2021 Instruction Type:Provider Instructions for Treatment How to Access Health Informa tion Online using Patient Portal and [employer] Apps Indication:Nonsmoker Start:18-Jun-2021 Instruction Type:Patient Education Patient Instructions Indication:Nonsmoker Start:03-May-2021 Instruction Type:Provider Instructions for Treatment How to Access Health Informa tion Online using Patient Portal and [employer] Apps Indication:Nonsmoker Start:03-May-2021 Instruction Type:Patient Education Patient Instructions Indication:BMI 21.0-21.9, adult Start:11-Jan-2021 Instruction Type:Provider Instructions for Treatment How to Access Health Informa tion Online using Patient Portal and [employer] Apps Indication:BMI 21.0-21.9, adult Start:11-Jan-2021 Instruction Type:Patient Education Patient Instructions Indication:Nonsmoker Start:21-Sep-2020 Instruction Type:Provider Instructions for Treatment How to Access Health Informa tion Online using Patient Portal and [employer] Apps Indication:Nonsmoker Start:21-Sep-2020 Instruction Type:Patient Education Patient Instructions Indication:Nonsmoker Start:18-Sep-2020 Instruction Type:Provider Instructions for Treatment How to Access Health Informa tion Online using Patient Portal and [employer] Apps Indication:Nonsmoker Start:18-Sep-2020 Instruction Type:Patient Education Patient Instructions Indication:BMI 21.0-21.9, adult Start:08-Jun-2020 Instruction Type:Provider Instructions for Treatment How to Access Health Informa tion Online using Patient Portal and [employer] Apps Indication:BMI 21.0-21.9, adult Start:08-Jun-2020 Instruction Type:Patient Education How to access health informa tion online Indication:BMI 21.0-21.9, adult Start:21-Mar-2020 Instruction Type:Patient Education How to access health informa tion online - Detail Indication:BMI 21.0-21.9, adult Start:21-Mar-2020 Instruction Type:Patient Education Patient Instructions Indication:BMI 21.0-21.9, adult Start:21-Mar-2020 Instruction Type:Provider Instructions for Treatment Patient Instructions Indication:Hyperlipidemia Start:28-Feb-2020 Instruction Type:Provider Instructions for Treatment How to access health informa tion online Indication:Nonsmoker Start:28-Feb-2020 Instruction Type:Patient Education How to access health informa tion online - Detail Indication:Nonsmoker Start:28-Feb-2020 Instruction Type:Patient Education Patient Instructions Indication:Nonsmoker Start:28-Feb-2020 Instruction Type:Provider Instructions for Treatment Patient Instructions Indication:Restless leg Start:17-Jan-2020 Instruction Type:Provider Instructions for Treatment How to access health informa tion online Indication:Hypertension Start:17-Jan-2020 Instruction Type:Patient Education How to access health informa tion online - Detail Indication:Hypertension Start:17-Jan-2020 Instruction Type:Patient Education Patient Instructions Indication:Hypertension Start:17-Jan-2020 Instruction Type:Provider Instructions for Treatment [facility]; [facility] Work Phone: Instructions* Name Dates Details Patient Instructions Indication:Nonsmoker Start:18-Jun-2021 Instruction Type:Provider Instructions for Treatment How to Access Health Informa tion Online using Patient Portal and [employer] Apps Indication:Nonsmoker Start:18-Jun-2021 Instruction Type:Patient Education Patient Instructions Indication:Nonsmoker Start:03-May-2021 Instruction Type:Provider Instructions for Treatment How to Access Health Informa tion Online using Patient Portal and [employer] Apps Indication:Nonsmoker Start:03-May-2021 Instruction Type:Patient Education Patient Instructions Indication:BMI 21.0-21.9, adult Start:11-Jan-2021 Instruction Type:Provider Instructions for Treatment How to Access Health Informa tion Online using Patient Portal and 3rd [employer] Apps Indication:BMI 21.0-21.9, adult Start:11-Jan-2021 Instruction Type:Patient Education Patient Instructions Indication:Nonsmoker Start:21-Sep-2020 Instruction Type:Provider Instructions for Treatment How to Access Health Informa tion Online using Patient Portal and 3rd [employer] Apps Indication:Nonsmoker Start:21-Sep-2020 Instruction Type:Patient Education Patient Instructions Indication:Nonsmoker Start:18-Sep-2020 Instruction Type:Provider Instructions for Treatment How to Access Health Informa tion Online using Patient Portal and 3rd [employer] Apps Indication:Nonsmoker Start:18-Sep-2020 Instruction Type:Patient Education Patient Instructions Indication:BMI 21.0-21.9, adult Start:08-Jun-2020 Instruction Type:Provider Instructions for Treatment How to Access Health Informa tion Online using Patient Portal and 3rd [employer] Apps Indication:BMI 21.0-21.9, adult Start:08-Jun-2020 Instruction Type:Patient Education How to access health informa tion online Indication:BMI 21.0-21.9, adult Start:21-Mar-2020 Instruction Type:Patient Education How to access health informa tion online - Detail Indication:BMI 21.0-21.9, adult Start:21-Mar-2020 Instruction Type:Patient Education Patient Instructions Indication:BMI 21.0-21.9, adult Start:21-Mar-2020 Instruction Type:Provider Instructions for Treatment Patient Instructions Indication:Hyperlipidemia Start:28-Feb-2020 Instruction Type:Provider Instructions for Treatment How to access health informa tion online Indication:Nonsmoker Start:28-Feb-2020 Instruction Type:Patient Education How to access health informa tion online - Detail Indication:Nonsmoker Start:28-Feb-2020 Instruction Type:Patient Education Patient Instructions Indication:Nonsmoker Start:28-Feb-2020 Instruction Type:Provider Instructions for Treatment Patient Instructions Indication:Restless leg Start:17-Jan-2020 Instruction Type:Provider Instructions for Treatment How to access health informa tion online Indication:Hypertension Start:17-Jan-2020 Instruction Type:Patient Education How to access health informa tion online - Detail Indication:Hypertension Start:17-Jan-2020 Instruction Type:Patient Education Patient Instructions Indication:Hypertension Start:17-Jan-2020 Instruction Type:Provider Instructions for Treatment [facility] Work Phone: Instructions* Name Dates Details Patient Instructions Indication:Nonsmoker Start:18-Jun-2021 Instruction Type:Provider Instructions for Treatment How to Access Health Informa tion Online using Patient Portal and 3rd [employer] Apps Indication:Nonsmoker Start:18-Jun-2021 Instruction Type:Patient Education Patient Instructions Indication:Nonsmoker Start:03-May-2021 Instruction Type:Provider Instructions for Treatment How to Access Health Informa tion Online using Patient Portal and 3rd [employer] Apps Indication:Nonsmoker Start:03-May-2021 Instruction Type:Patient Education Patient Instructions Indication:BMI 21.0-21.9, adult Start:11-Jan-2021 Instruction Type:Provider Instructions for Treatment How to Access Health Informa tion Online using Patient Portal and 3rd [employer] Apps Indication:BMI 21.0-21.9, adult Start:11-Jan-2021 Instruction Type:Patient Education Patient Instructions Indication:Nonsmoker Start:21-Sep-2020 Instruction Type:Provider Instructions for Treatment How to Access Health Informa tion Online using Patient Portal and 3rd [employer] Apps Indication:Nonsmoker Start:21-Sep-2020 Instruction Type:Patient Education Patient Instructions Indication:Nonsmoker Start:18-Sep-2020 Instruction Type:Provider Instructions for Treatment How to Access Health Informa tion Online using Patient Portal and 3rd [employer] Apps Indication:Nonsmoker Start:18-Sep-2020 Instruction Type:Patient Education Patient Instructions Indication:BMI 21.0-21.9, adult Start:08-Jun-2020 Instruction Type:Provider Instructions for Treatment How to Access Health Informa tion Online using Patient Portal and 3rd [employer] Apps Indication:BMI 21.0-21.9, adult Start:08-Jun-2020 Instruction Type:Patient Education How to access health informa tion online Indication:BMI 21.0-21.9, adult Start:21-Mar-2020 Instruction Type:Patient Education How to access health informa tion online - Detail Indication:BMI 21.0-21.9, adult Start:21-Mar-2020 Instruction Type:Patient Education Patient Instructions Indication:BMI 21.0-21.9, adult Start:21-Mar-2020 Instruction Type:Provider Instructions for Treatment Patient Instructions Indication:Hyperlipidemia Start:28-Feb-2020 Instruction Type:Provider Instructions for Treatment How to access health informa tion online Indication:Nonsmoker Start:28-Feb-2020 Instruction Type:Patient Education How to access health informa tion online - Detail Indication:Nonsmoker Start:28-Feb-2020 Instruction Type:Patient Education Patient Instructions Indication:Nonsmoker Start:28-Feb-2020 Instruction Type:Provider Instructions for Treatment Patient Instructions Indication:Restless leg Start:17-Jan-2020 Instruction Type:Provider Instructions for Treatment How to access health informa tion online Indication:Hypertension Start:17-Jan-2020 Instruction Type:Patient Education How to access health informa tion online - Detail Indication:Hypertension Start:17-Jan-2020 Instruction Type:Patient Education Patient Instructions Indication:Hypertension Start:17-Jan-2020 Instruction Type:Provider Instructions for Treatment [facility] Work Phone: reason for referral (narrative)* Diagnostic Procedure Only (Routine) - Pending Review Specialty Diagnoses / Procedures Referred By Shell ortiz Referred To Contact XR IMAGING Diagnoses Left arm pain Left hand weakness Numbness and tingling of left upper extremity Procedures XR CERV OTHER 4V AP/LAT/OBL RADEX SPINE CERVICAL 4 OR 5 VIEWS Remy Perez MD [address] [place] [address] Xr Imaging Referral ID Status Reason Start Date Expiration Date Visits Requested Visits Authorized [id number] Pending Review Auto-Generat ed Referral 11/01/2021 12/01/2022 1 1 [facility] for referral (narrative)* Diagnostic Procedure Only (Routine) - Closed Specialty Diagnoses / Procedures Referred By Contac t Referred To Contact XR IMAGING Diagnoses Left hand weakness Left hand pain Procedures XR HAND GENERAL 3V PA/LAT/OBL LEFT RADEX HAND MINIMUM 3 VIEWS Aziza Thompson PA-C [address] [place] [address] Xr Imaging Referral ID Status Reason Start Date Expiration Date V isits Requested Visits Authorized [id number] Closed Auto-Generate d Referral 11/21/2021 12/21/2022 1 1 [facility] for referral (narrative)* Diagnostic Procedure Only (Routine) - Authorized Specialty Diagnoses / Procedures Referred By Contac t Referred To Contact [facility] Diagnoses Encounter for screening mammogram for breast cancer Procedures LEONORA SCREENING SCREENING MAMMOGRAPHY BI 2-VIEW BREAST INC CAD Remy Perez MD [address] [place] [address] [facility] [address] [place] [address] Referral ID Status Reason Start Date Expiration Date Visits Requested Visits Authorized [id number] Authorized Auto-Generat ed Referral 11/20/2021 12/20/2022 1 1 [facility] for referral (narrative)* Diagnostic Procedure Only (Routine) - Closed Specialty Diagnoses / Procedures Referred By Contac t Referred To Contact [facility] Diagnoses Encounter for screening mammogram for breast cancer Procedures LEONORA SCREENING SCREENING MAMMOGRAPHY BI 2-VIEW BREAST INC CAD Remy Perez MD [address] [place] [address] [facility] [address] [place] [address] Referral ID Status Reason Start Date Expiration Date V isits Requested Visits Authorized [id number] Closed Auto-Generate d Referral 11/20/2021 12/20/2022 1 1 [facility] for referral (narrative)* Outpatient Procedure (Routine) - Closed Specialty Diagnoses / Procedures Referred By Contac t Referred To Contact [facility] Diagnoses Preop examination Procedures ECG COMPLETE ECG ROUTINE ECG W/LEAST 12 LDS W/I&R Aziza Thompson PA-C [address] [place] [address] [facility] [place] [address] [place] [address] Referral ID Status Reason Start Date Expiration Date V isits Requested Visits Authorized [id number] Closed Auto-Generate d Referral 01/27/2022 01/27/2023 1 1 [facility] for referral (narrative)* Diagnostic Procedure Only (Routine) - Closed Specialty Diagnoses / Procedures Referred By Contac t Referred To Contact XR IMAGING Diagnoses Acute pain of right shoulder Procedures XR SHOULDER GENERAL 3V OR MORE AP/TRUE AP/OTHER RIGHT RADEX SHOULDER COMPLETE MINIMUM 2 VIEWS Rupinder Goss APRN.INDUSTRIAL INSULATOR [address] [place] [address] Xr Imaging Referral ID Status Reason Start Date Expiration Date V isits Requested Visits Authorized [id number] Closed Auto-Generate d Referral 07/01/2022 07/31/2023 1 1 [facility] for referral (narrative)* Diagnostic Procedure Only (Routine) - Closed Specialty Diagnoses / Procedures Referred By Contac t Referred To Contact XR IMAGING Diagnoses Fall (on) (from) unspecified stairs and steps, subsequent encounter Procedures XR LUMBAR GENERAL 3V AP/LAT/L5-S1 RADEX SPINE LUMBOSACRAL 2/3 VIEWS Rupinder Goss APRN.INDUSTRIAL INSULATOR [address] [place] [address] Xr Imaging Referral ID Status Reason Start Date Expiration Date V isits Requested Visits Authorized [id number] Closed Auto-Generate d Referral 07/14/2022 08/13/2023 1 1 [facility] for referral (narrative)* Diagnostic Procedure Only (Urgent) - Closed Specialty Diagnoses / Procedures Referred By Contac t Referred To Contact XR IMAGING Diagnoses Acute pain of both knees Procedures XR KNEE GENERAL 4V AP BOTH/PA BOTH/LAT/MERC BILATERAL RADIOLOGIC EXAM KNEE COMPLETE 4/MORE VIEWS Keely Doll APRN.INDUSTRIAL INSULATOR [address] [place] [address] [place] [address] Referral ID Status Reason Start Date Expiration Date V isits Requested Visits Authorized [id number] Closed Auto-Generate d Referral 02/11/2023 03/12/2024 1 1 [facility] for referral (narrative)* Outpatient Procedure (Routine) - Closed Specialty Diagnoses / Procedures Referred By Contac t Referred To Contact [facility] Diagnoses Special screening for malignant neoplasms, colon Procedures COLONOSCOPY SCREENING COLONOSCOPY FLX DX W/COLLJ SPEC WHEN PFRMD Loiuse Newton PA-C [address] [place] [address] Hugh Cole MD [address] [facility] [place] [address] Referral ID Status Reason Start Date Expiration Date V isits Requested Visits Authorized [id number] Closed Auto-Generate d Referral 07/24/2022 10/22/2022 1 1 [facility] for referral (narrative)* Diagnostic Procedure Only (Routine) - Pending Review Specialty Diagnoses / Procedures Referred By Contac t Referred To Contact XR IMAGING Diagnoses Asymptomatic postmenopausal status Procedures DXA-AXIAL SKELETON Aziza Thompson PA-C [address] [place] [address] [place] [address] Referral ID Status Reason Start Date Expiration Date Visits Requested Visits Authorized [id number] Pending Review Auto-Generat ed Referral 07/23/2023 08/21/2024 1 1 * Consult, Test, Treat (Routine) - Pending Review Specialty Diagnoses / Procedures Referred By Contac t Referred To Contact Psychology Diagnoses SHAYLA (generalized anxiety disorder) Procedures CONSULT TO PSYCHOLOGY OFFICE/OUTPATIENT [facility] 60 MINUTES Aziza Thompson PA-C [address] [place] [address] Referral ID Status Reason Start Date Expiration Date Visits Requested Visits Authorized [id number] Pending Review PCP Requested Referral 07/23/2023 07/22/2024 1 1 [facility] for referral (narrative)* Diagnostic Procedure Only (Urgent) - Closed Specialty Diagnoses / Procedures Referred By Contac t Referred To Contact XR IMAGING Diagnoses Acute pain of both knees Procedures XR KNEE GENERAL 4V AP BOTH/PA BOTH/LAT/MERC BILATERAL RADIOLOGIC EXAM KNEE COMPLETE 4/MORE VIEWS Keely Doll APRN.INDUSTRIAL INSULATOR [address] [place] [address] [place] [address] Referral ID Status Reason Start Date Expiration Date V isits Requested Visits Authorized [id number] Closed Auto-Generate d Referral 02/11/2023 03/12/2024 1 1 [facility] for referral (narrative)* Diagnostic Procedure Only (Routine) - Closed Specialty Diagnoses / Procedures Referred By Contac t Referred To Contact XR IMAGING Diagnoses Fall (on) (from) unspecified stairs and steps, subsequent encounter Procedures XR LUMBAR GENERAL 3V AP/LAT/L5-S1 RADEX SPINE LUMBOSACRAL 2/3 VIEWS Rupinder Goss DESIGN DRAFTSMAN.INDUSTRIAL INSULATOR [address] [place] [address] [place] [address] Referral ID Status Reason Start Date Expiration Date V isits Requested Visits Authorized [id number] Closed Auto-Generate d Referral 07/14/2022 08/13/2023 1 1 [facility] for referral (narrative)* Diagnostic Procedure Only (Routine) - Closed Specialty Diagnoses / Procedures Referred By Contac t Referred To Contact XR IMAGING Diagnoses Lumbar back pain Procedures XR LUMBAR GENERAL 3V AP/LAT/L5-S1 RADEX SPINE LUMBOSACRAL 2/3 VIEWS Aziza Thompson PA-C [address] [place] [address] [place] [address] Referral ID Status Reason Start Date Expiration Date V isits Requested Visits Authorized [id number] Closed Auto-Generate d Referral 05/16/2022 06/15/2023 1 1 [facility] for referral (narrative)* Diagnostic Procedure Only (Routine) - Closed Specialty Diagnoses / Procedures Referred By Contac t Referred To Contact XR IMAGING Diagnoses Positive ESTELLA (antinuclear antibody) Procedures XR HIP GENERAL 3V PELV/AP/LAT LEFT RADEX HIP UNILATERAL WITH PELVIS 2-[place] [address] [place] [id number] [place] [address] Referral ID Status Reason Start Date Expiration Date V isits Requested Visits Authorized [id number] Closed Auto-Generate d Referral 03/28/2022 04/27/2023 1 1 * Diagnostic Procedure Only (Routine) - Closed Specialty Diagnoses / Procedures Referred By Contac t Referred To Contact XR IMAGING Diagnoses Positive ESTLELA (antinuclear antibody) Procedures XR KNEE GENERAL 4V AP BOTH/PA BOTH/LAT/MERC BILATERAL RADIOLOGIC EXAM KNEE COMPLETE 4/[place] [address] [place] [address] [place] [address] Referral ID Status Reason Start Date Expiration Date V isits Requested Visits Authorized [id number] Closed Auto-Generate d Referral 03/28/2022 04/27/2023 1 1 [facility] for referral (narrative)* Diagnostic Procedure Only (Routine) - Closed Specialty Diagnoses / Procedures Referred By Contac t Referred To Contact XR IMAGING Diagnoses Acute pain of right shoulder Procedures XR SHOULDER GENERAL 3V OR MORE AP/TRUE AP/OTHER RIGHT RADEX SHOULDER COMPLETE MINIMUM 2 VIEWS Rupinder Goss APRN.[place] [id number] [place] [address] [place] [address] Referral ID Status Reason Start Date Expiration Date V isits Requested Visits Authorized [id number] Closed Auto-Generate d Referral 07/01/2022 07/31/2023 1 1 [facility] for referral (narrative)* Diagnostic Procedure Only (Routine) - Closed Specialty Diagnoses / Procedures Referred By Contac t Referred To Contact XR IMAGING Diagnoses Left hand weakness Left hand pain Procedures XR HAND GENERAL 3V PA/LAT/OBL LEFT RADEX HAND MINIMUM 3 VIEWS Aziza Thompson PA-C [address] [place] [address] [place] [address] Referral ID Status Reason Start Date Expiration Date V isits Requested Visits Authorized [id number] Closed Auto-Generate d Referral 11/21/2021 12/21/2022 1 1 [facility] for referral (narrative)* Diagnostic Procedure Only (Routine) - Closed Specialty Diagnoses / Procedures Referred By Contac t Referred To Contact XR IMAGING Diagnoses Left arm pain Left hand weakness Numbness and tingling of left upper extremity Procedures XR CERV OTHER 4V AP/LAT/OBL RADEX SPINE CERVICAL 4 OR 5 VIEWS Remy Perez MD [address] [place] [address] [place] [address] Referral ID Status Reason Start Date Expiration Date V isits Requested Visits Authorized [id number] Closed Auto-Generate d Referral 11/01/2021 12/01/2022 1 1 [facility] for referral (narrative)* Diagnostic Procedure Only (Routine) - Closed Specialty Diagnoses / Procedures Referred By Contac t Referred To Contact XR IMAGING Diagnoses Plantar fasciitis of right foot Procedures XR FOOT GENERAL 3V AP/LAT/OBL RIGHT RADEX FOOT COMPLETE MINIMUM 3 VIEWS Aziza Thompson PA-C [address] [place] [address] [place] [address] Referral ID Status Reason Start Date Expiration Date V isits Requested Visits Authorized [id number] Closed Auto-Generate d Referral 05/26/2024 06/25/2025 1 1 * Physical Therapy (Routine) - Authorized Specialty Diagnoses / Procedures Referred By Shell t Referred To Contact [facility] Diagnoses Plantar fasciitis of right foot Procedures CONSULT TO PHYSICAL THERAPY PHYSICAL THERAPY EVALUATION HIGH COMPLEX 45 MINS Aziza Thompson PA-C [address] [place] [address] [facility] [place] [address] [place] [address] Referral ID Status Reason Start Date Expiration Date Visits Requested Visits Authorized [id number] Authorized Auto-Generat ed Referral 04/20/2024 04/19/2025 1 1 * Diagnostic Procedure Only (Routine) - Closed Specialty Diagnoses / Procedures Referred By Shell ortiz Referred To Contact XR IMAGING Diagnoses Chronic left hip pain Procedures XR HIP GENERAL 3V PELV/AP/LAT LEFT RADEX HIP UNILATERAL WITH PELVIS 2-3 VIEWS Aziza Thompson PA-C [address] [place] [address] [place] [address] Referral ID Status Reason Start Date Expiration Date V isits Requested Visits Authorized [id number] Closed Auto-Generate d Referral 05/26/2024 06/25/2025 1 1 [facility]No reason for referral information [facility] Work Phone: Rext[facility] for visit Narrative* Diagnostic Procedure Only (Routine) - Closed Specialty Diagnoses / Procedures Referred By Shell ortiz Referred To Contact [facility] Diagnoses Encounter for screening mammogram for breast cancer Procedures LEONORA SCREENING SCREENING MAMMOGRAPHY BI 2-VIEW BREAST INC CAD Rmey Perez MD [address] [place] [address] [facility] [address] [place] [address] Referral ID Status Reason Start Date Expiration Date V isits Requested Visits Authorized [id number] Closed Auto-Generate d Referral 11/20/2021 12/20/2022 1 1 [facility] for visit Narrative* Outpatient Procedure (Routine) - Closed Specialty Diagnoses / Procedures Referred By Contac t Referred To Contact [facility] Diagnoses Special screening for malignant neoplasms, colon Procedures COLONOSCOPY SCREENING COLONOSCOPY FLX DX W/COLLJ SPEC WHEN PFRMD Louise Newton PA-C [address] [place] [address] Hugh Cole MD [address] [place] [address] Referral ID Status Reason Start Date Expiration Date V isits Requested Visits Authorized [id number] Closed Auto-Generate d Referral 07/24/2022 10/22/2022 1 1 [facility] for visit Narrative* Diagnostic Procedure Only (Routine) - Closed Specialty Diagnoses / Procedures Referred By Contac t Referred To Contact XR IMAGING Diagnoses Asymptomatic postmenopausal status Procedures DXA-AXIAL SKELETON Aziza Thompson PA-C [address] [place] [address] [place] [address] Referral ID Status Reason Start Date Expiration Date V isits Requested Visits Authorized [id number] Closed Auto-Generate d Referral 07/23/2023 08/21/2024 1 1 [facility] for visit Narrative* Diagnostic Procedure Only (Urgent) - Closed Specialty Diagnoses / Procedures Referred By Contac t Referred To Contact XR IMAGING Diagnoses Acute pain of both knees Procedures XR KNEE GENERAL 4V AP BOTH/PA BOTH/LAT/MERC BILATERAL RADIOLOGIC EXAM KNEE COMPLETE 4/MORE VIEWS Keely Doll, EVELIN.INDUSTRIAL INSULATOR [address] [place] [address] [place] [address] Referral ID Status Reason Start Date Expiration Date V isits Requested Visits Authorized [id number] Closed Auto-Generate d Referral 02/11/2023 03/12/2024 1 1 [facility] for visit Narrative* Diagnostic Procedure Only (Routine) - Closed Specialty Diagnoses / Procedures Referred By Contac t Referred To Contact XR IMAGING Diagnoses Fall (on) (from) unspecified stairs and steps, subsequent encounter Procedures XR LUMBAR GENERAL 3V AP/LAT/L5-S1 RADEX SPINE LUMBOSACRAL 2/3 VIEWS Rupinder Goss APRN.INDUSTRIAL INSULATOR [address] [place] [address] [place] [address] Referral ID Status Reason Start Date Expiration Date V isits Requested Visits Authorized [id number] Closed Auto-Generate d Referral 07/14/2022 08/13/2023 1 1 [facility] for visit Narrative* Diagnostic Procedure Only (Routine) - Closed Specialty Diagnoses / Procedures Referred By Contac t Referred To Contact XR IMAGING Diagnoses Lumbar back pain Procedures XR LUMBAR GENERAL 3V AP/LAT/L5-S1 RADEX SPINE LUMBOSACRAL 2/3 VIEWS Aziza Thompson PA-C [address] [place] [address] [place] [address] Referral ID Status Reason Start Date Expiration Date V isits Requested Visits Authorized [id number] Closed Auto-Generate d Referral 05/16/2022 06/15/2023 1 1 [facility] for visit Narrative* Diagnostic Procedure Only (Routine) - Closed Specialty Diagnoses / Procedures Referred By Contac t Referred To Contact XR IMAGING Diagnoses Positive ESTELLA (antinuclear antibody) Procedures XR HIP GENERAL 3V PELV/AP/LAT LEFT RADEX HIP UNILATERAL WITH PELVIS 2-[place] [address] [place] [address] [place] [address] Referral ID Status Reason Start Date Expiration Date V isits Requested Visits Authorized [id number] Closed Auto-Generate d Referral 03/28/2022 04/27/2023 1 1 [facility] for visit Narrative* Diagnostic Procedure Only (Routine) - Closed Specialty Diagnoses / Procedures Referred By Contac t Referred To Contact XR IMAGING Diagnoses Acute pain of right shoulder Procedures XR SHOULDER GENERAL 3V OR MORE AP/TRUE AP/OTHER RIGHT RADEX SHOULDER COMPLETE MINIMUM 2 VIEWS Rupinder Goss APRN.INDUSTRIAL INSULATOR [address] [place] [address] [place] [address] Referral ID Status Reason Start Date Expiration Date V isits Requested Visits Authorized [id number] Closed Auto-Generate d Referral 07/01/2022 07/31/2023 1 1 [facility] for visit Narrative* Diagnostic Procedure Only (Routine) - Closed Specialty Diagnoses / Procedures Referred By Contac t Referred To Contact XR IMAGING Diagnoses Left hand weakness Left hand pain Procedures XR HAND GENERAL 3V PA/LAT/OBL LEFT RADEX HAND MINIMUM 3 VIEWS Aziza Thompson PA-C [address] [place] [address] [place] [address] Referral ID Status Reason Start Date Expiration Date V isits Requested Visits Authorized [id number] Closed Auto-Generate d Referral 11/21/2021 12/21/2022 1 1 [facility] for visit Narrative* Diagnostic Procedure Only (Routine) - Closed Specialty Diagnoses / Procedures Referred By Contac t Referred To Contact XR IMAGING Diagnoses Plantar fasciitis of right foot Procedures XR FOOT GENERAL 3V AP/LAT/OBL RIGHT RADEX FOOT COMPLETE MINIMUM 3 VIEWS Aziza Thompson PA-C [address] [place] [address] [place] [address] Referral ID Status Reason Start Date Expiration Date V isits Requested Visits Authorized [id number] Closed Auto-Generate d Referral 05/26/2024 06/25/2025 1 1 [facility] for visit Narrative* Diagnostic Procedure Only (Routine) - Closed Specialty Diagnoses / Procedures Referred By Contac t Referred To Contact [facility] Diagnoses Encounter for screening mammogram for breast cancer Procedures LEONORA SCREENING W HERNANDEZ SCREENING DIGITAL BREAST TOMOSYNTHESIS BI SCREENING MAMMOGRAPHY BI 2-VIEW BREAST INC Remy La MD [address] [place] [address] Phone: tel: fax: [facility] [address] [place] [address] Referral ID Status Reason Start Date Expiration Date V isits Requested Visits Authorized [id number] Closed Auto-Generate d Referral 06/21/2024 07/21/2025 1 1 [facility] Family History No Family History Records FoundUnknown Family Member Name Dates Details AFIB Comments:Father. Status:Active Cancer Comments:mother- lung- non-s moker- in 1985 Status:Active Emotional/Anxiety/Depression Comments:Mother. Father. Bro ther. Sister. grandparent Status:Active Grandparent Comments:DM- type 2 Status:Active HTN Comments:father, grandparent , sister Status:Active Kidney Disease Comments:Father. Status:Active Ovarian Cancer Comments:Maternal Aunt. 2 au nts had Status:Active Stroke Comments:father, grandfather Status:Active Unknown Family Member Name Dates Details AFIB Comments:Father. Status:Active Cancer Comments:mother- lung- non-s moker- in 1985 Status:Active Emotional/Anxiety/Depression Comments:Mother. Father. Bro ther. Sister. grandparent Status:Active Grandparent Comments:DM- type 2 Status:Active HTN Comments:father, grandparent , sister Status:Active Kidney Disease Comments:Father. Status:Active Ovarian Cancer Comments:Maternal Aunt. 2 au nts had Status:Active Stroke Comments:father, grandfather Status:Active Unknown Family Member Name Dates Details AFIB Comments:Father. Status:Active Cancer Comments:mother- lung- non-s moker- in 1985 Status:Active Emotional/Anxiety/Depression Comments:Mother. Father. Bro ther. Sister. grandparent Status:Active Grandparent Comments:DM- type 2 Status:Active HTN Comments:father, grandparent , sister Status:Active Kidney Disease Comments:Father. Status:Active Ovarian Cancer Comments:Maternal Aunt. 2 au nts had Status:Active Stroke Comments:father, grandfather Status:Active Unknown Family Member Name Dates Details AFIB Comments:Father. Status:Active Cancer Comments:mother- lung- non-s moker- in 1985 Status:Active Emotional/Anxiety/Depression Comments:Mother. Father. Bro ther. Sister. grandparent Status:Active Grandparent Comments:DM- type 2 Status:Active HTN Comments:father, grandparent , sister Status:Active Kidney Disease Comments:Father. Status:Active Ovarian Cancer Comments:Maternal Aunt. 2 au nts had Status:Active Stroke Comments:father, grandfather Status:Active Unknown Family Member Name Dates Details AFIB Comments:Father. Status:Active Cancer Comments:mother- lung- non-s moker- in 1985 Status:Active Emotional/Anxiety/Depression Comments:Mother. Father. Bro ther. Sister. grandparent Status:Active Grandparent Comments:DM- type 2 Status:Active HTN Comments:father, grandparent , sister Status:Active Kidney Disease Comments:Father. Status:Active Ovarian Cancer Comments:Maternal Aunt. 2 au nts had Status:Active Stroke Comments:father, grandfather Status:Active Unknown Family Member Name Dates Details AFIB Comments:Father. Status:Active Cancer Comments:mother- lung- non-s moker- in 1985 Status:Active Emotional/Anxiety/Depression Comments:Mother. Father. Bro ther. Sister. grandparent Status:Active Grandparent Comments:DM- type 2 Status:Active HTN Comments:father, grandparent , sister Status:Active Kidney Disease Comments:Father. Status:Active Ovarian Cancer Comments:Maternal Aunt. 2 au nts had Status:Active Stroke Comments:father, grandfather Status:Active Unknown Family Member Name Dates Details AFIB Comments:Father. Status:Active Cancer Comments:mother- lung- non-s moker- in 1985 Status:Active Emotional/Anxiety/Depression Comments:Mother. Father. Bro ther. Sister. grandparent Status:Active Grandparent Comments:DM- type 2 Status:Active HTN Comments:father, grandparent , sister Status:Active Kidney Disease Comments:Father. Status:Active Ovarian Cancer Comments:Maternal Aunt. 2 au nts had Status:Active Stroke Comments:father, grandfather Status:Active Unknown Family Member Name Dates Details AFIB Comments:Father. Status:Active Cancer Comments:mother- lung- non-s moker- in 1985 Status:Active Emotional/Anxiety/Depression Comments:Mother. Father. Bro ther. Sister. grandparent Status:Active Grandparent Comments:DM- type 2 Status:Active HTN Comments:father, grandparent , sister Status:Active Kidney Disease Comments:Father. Status:Active Ovarian Cancer Comments:Maternal Aunt. 2 au nts had Status:Active Stroke Comments:father, grandfather Status:Active Unknown Family Member Name Dates Details AFIB Comments:Father. Status:Active Cancer Comments:mother- lung- non-s moker- in 1985 Status:Active Emotional/Anxiety/Depression Comments:Mother. Father. Bro ther. Sister. grandparent Status:Active Grandparent Comments:DM- type 2 Status:Active HTN Comments:father, grandparent , sister Status:Active Kidney Disease Comments:Father. Status:Active Ovarian Cancer Comments:Maternal Aunt. 2 au nts had Status:Active Stroke Comments:father, grandfather Status:Active Unknown Family Member Name Dates Details AFIB Comments:Father. Status:Active Cancer Comments:mother- lung- non-s moker- in 1985 Status:Active Emotional/Anxiety/Depression Comments:Mother. Father. Bro ther. Sister. grandparent Status:Active Grandparent Comments:DM- type 2 Status:Active HTN Comments:father, grandparent , sister Status:Active Kidney Disease Comments:Father. Status:Active Ovarian Cancer Comments:Maternal Aunt. 2 au nts had Status:Active Stroke Comments:father, grandfather Status:Active Unknown Family Member Name Dates Details AFIB Comments:Father. Status:Active Cancer Comments:mother- lung- non-s tdker- in 1985 Status:Active Emotional/Anxiety/Depression Comments:Mother. Father. Bro ther. Sister. grandparent Status:Active Grandparent Comments:DM- type 2 Status:Active HTN Comments:father, grandparent , sister Status:Active Kidney Disease Comments:Father. Status:Active Ovarian Cancer Comments:Maternal Aunt. 2 au nts had Status:Active Stroke Comments:father, grandfather Status:Active Unknown Family Member Name Dates Details AFIB Comments:Father. Status:Active Cancer Comments:mother- lung- non-s moker- in 1985 Status:Active Emotional/Anxiety/Depression Comments:Mother. Father. Bro ther. Sister. grandparent Status:Active Grandparent Comments:DM- type 2 Status:Active HTN Comments:father, grandparent , sister Status:Active Kidney Disease Comments:Father. Status:Active Ovarian Cancer Comments:Maternal Aunt. 2 au nts had Status:Active Stroke Comments:father, grandfather Status:Active Unknown Family Member Name Dates Details AFIB Comments:Father. Status:Active Cancer Comments:mother- lung- non-s moker- in 1985 Status:Active Emotional/Anxiety/Depression Comments:Mother. Father. Bro ther. Sister. grandparent Status:Active Grandparent Comments:DM- type 2 Status:Active HTN Comments:father, grandparent , sister Status:Active Kidney Disease Comments:Father. Status:Active Ovarian Cancer Comments:Maternal Aunt. 2 au nts had Status:Active Stroke Comments:father, grandfather Status:Active Unknown Family Member Name Dates Details AFIB Comments:Father. Status:Active Cancer Comments:mother- lung- non-s moker- in 1985 Status:Active Emotional/Anxiety/Depression Comments:Mother. Father. Bro ther. Sister. grandparent Status:Active Grandparent Comments:DM- type 2 Status:Active HTN Comments:father, grandparent , sister Status:Active Kidney Disease Comments:Father. Status:Active Ovarian Cancer Comments:Maternal Aunt. 2 au nts had Status:Active Stroke Comments:father, grandfather Status:Active Unknown Family Member Name Dates Details AFIB Comments:Father. Status:Active Cancer Comments:mother- lung- non-s moker- in 1985 Status:Active Emotional/Anxiety/Depression Comments:Mother. Father. Bro ther. Sister. grandparent Status:Active Grandparent Comments:DM- type 2 Status:Active HTN Comments:father, grandparent , sister Status:Active Kidney Disease Comments:Father. Status:Active Ovarian Cancer Comments:Maternal Aunt. 2 au nts had Status:Active Stroke Comments:father, grandfather Status:Active Unknown Family Member Name Dates Details AFIB Comments:Father. Status:Active Cancer Comments:mother- lung- non-s moker- in 1985 Status:Active Emotional/Anxiety/Depression Comments:Mother. Father. Bro ther. Sister. grandparent Status:Active Grandparent Comments:DM- type 2 Status:Active HTN Comments:father, grandparent , sister Status:Active Kidney Disease Comments:Father. Status:Active Ovarian Cancer Comments:Maternal Aunt. 2 au nts had Status:Active Stroke Comments:father, grandfather Status:Active Unknown Family Member Name Dates Details AFIB Comments:Father. Status:Active Cancer Comments:mother- lung- non-s moker- in 1985 Status:Active Emotional/Anxiety/Depression Comments:Mother. Father. Bro ther. Sister. grandparent Status:Active Grandparent Comments:DM- type 2 Status:Active HTN Comments:father, grandparent , sister Status:Active Kidney Disease Comments:Father. Status:Active Ovarian Cancer Comments:Maternal Aunt. 2 au nts had Status:Active Stroke Comments:father, grandfather Status:Active Unknown Family Member Name Dates Details AFIB Comments:Father. Status:Active Cancer Comments:mother- lung- non-s moker- in 1985 Status:Active Emotional/Anxiety/Depression Comments:Mother. Father. Bro ther. Sister. grandparent Status:Active Grandparent Comments:DM- type 2 Status:Active HTN Comments:father, grandparent , sister Status:Active Kidney Disease Comments:Father. Status:Active Ovarian Cancer Comments:Maternal Aunt. 2 au nts had Status:Active Stroke Comments:father, grandfather Status:Active Unknown Family Member Name Dates Details AFIB Comments:Father. Status:Active Cancer Comments:mother- lung- non-s moker- in 1985 Status:Active Emotional/Anxiety/Depression Comments:Mother. Father. Bro ther. Sister. grandparent Status:Active Grandparent Comments:DM- type 2 Status:Active HTN Comments:father, grandparent , sister Status:Active Kidney Disease Comments:Father. Status:Active Ovarian Cancer Comments:Maternal Aunt. 2 au nts had Status:Active Stroke Comments:father, grandfather Status:Active Unknown Family Member Name Dates Details AFIB Comments:Father. Status:Active Cancer Comments:mother- lung- non-s moker- in 1985 Status:Active Emotional/Anxiety/Depression Comments:Mother. Father. Bro ther. Sister. grandparent Status:Active Grandparent Comments:DM- type 2 Status:Active HTN Comments:father, grandparent , sister Status:Active Kidney Disease Comments:Father. Status:Active Ovarian Cancer Comments:Maternal Aunt. 2 au nts had Status:Active Stroke Comments:father, grandfather Status:Active Unknown Family Member Name Dates Details AFIB Comments:Father. Status:Active Cancer Comments:mother- lung- non-s moker- in 1985 Status:Active Emotional/Anxiety/Depression Comments:Mother. Father. Bro ther. Sister. grandparent Status:Active Grandparent Comments:DM- type 2 Status:Active HTN Comments:father, grandparent , sister Status:Active Kidney Disease Comments:Father. Status:Active Ovarian Cancer Comments:Maternal Aunt. 2 au nts had Status:Active Stroke Comments:father, grandfather Status:Active Relationship Condition Age at Onset Recorded Date/[place] grandmother Anxiety Unknown Diabetes mellitus Unknown High blood cholesterol Unknown Cerebrovascular accident (CVA) Unknown mother Malignant neoplasm Unknown father Depression Unknown Hypertension Unknown Kidney disorder Unknown sister Depression Unknown brother Depression Unknown aunt Malignant neoplasm of ovary Unknown grandfather Myocardial infarction Unknown Unknown Family Member Name Dates Details AFIB Comments:Father. Status:Active Cancer Comments:mother- lung- non-s moker- in 1985 Status:Active Emotional/Anxiety/Depression Comments:Mother. Father. Bro ther. Sister. grandparent Status:Active Grandparent Comments:DM- type 2 Status:Active HTN Comments:father, grandparent , sister Status:Active Kidney Disease Comments:Father. Status:Active Ovarian Cancer Comments:Maternal Aunt. 2 au nts had Status:Active Stroke Comments:father, grandfather Status:Active Instructions Name Dates Details Patient Instructions Indication:Restless leg Start:17-Jan-2020 Instruction Type:Provider Instructions for Treatment How to access health informa tion online Indication:Hypertension Start:17-Jan-2020 Instruction Type:Patient Education How to access health informa tion online - Detail Indication:Hypertension Start:17-Jan-2020 Instruction Type:Patient Education Patient Instructions Indication:Hypertension Start:17-Jan-2020 Instruction Type:Provider Instructions for Treatment Name Dates Details Patient Instructions Indication:Restless leg Start:17-Jan-2020 Instruction Type:Provider Instructions for Treatment How to access health informa tion online Indication:Hypertension Start:17-Jan-2020 Instruction Type:Patient Education How to access health informa tion online - Detail Indication:Hypertension Start:17-Jan-2020 Instruction Type:Patient Education Patient Instructions Indication:Hypertension Start:17-Jan-2020 Instruction Type:Provider Instructions for Treatment Name Dates Details Patient Instructions Indication:Restless leg Start:17-Jan-2020 Instruction Type:Provider Instructions for Treatment How to access health informa tion online Indication:Hypertension Start:17-Jan-2020 Instruction Type:Patient Education How to access health informa tion online - Detail Indication:Hypertension Start:17-Jan-2020 Instruction Type:Patient Education Patient Instructions Indication:Hypertension Start:17-Jan-2020 Instruction Type:Provider Instructions for Treatment Name Dates Details Patient Instructions Indication:Hyperlipidemia Start:28-Feb-2020 Instruction Type:Provider Instructions for Treatment How to access health informa tion online Indication:Nonsmoker Start:28-Feb-2020 Instruction Type:Patient Education How to access health informa tion online - Detail Indication:Nonsmoker Start:28-Feb-2020 Instruction Type:Patient Education Patient Instructions Indication:Nonsmoker Start:28-Feb-2020 Instruction Type:Provider Instructions for Treatment Patient Instructions Indication:Restless leg Start:17-Jan-2020 Instruction Type:Provider Instructions for Treatment How to access health informa tion online Indication:Hypertension Start:17-Jan-2020 Instruction Type:Patient Education How to access health informa tion online - Detail Indication:Hypertension Start:17-Jan-2020 Instruction Type:Patient Education Patient Instructions Indication:Hypertension Start:17-Jan-2020 Instruction Type:Provider Instructions for Treatment Name Dates Details Patient Instructions Indication:Hyperlipidemia Start:28-Feb-2020 Instruction Type:Provider Instructions for Treatment How to access health informa tion online Indication:Nonsmoker Start:28-Feb-2020 Instruction Type:Patient Education How to access health informa tion online - Detail Indication:Nonsmoker Start:28-Feb-2020 Instruction Type:Patient Education Patient Instructions Indication:Nonsmoker Start:28-Feb-2020 Instruction Type:Provider Instructions for Treatment Patient Instructions Indication:Restless leg Start:17-Jan-2020 Instruction Type:Provider Instructions for Treatment How to access health informa tion online Indication:Hypertension Start:17-Jan-2020 Instruction Type:Patient Education How to access health informa tion online - Detail Indication:Hypertension Start:17-Jan-2020 Instruction Type:Patient Education Patient Instructions Indication:Hypertension Start:17-Jan-2020 Instruction Type:Provider Instructions for Treatment Name Dates Details How to access health informa tion online Indication:BMI 21.0-21.9, adult Start:21-Mar-2020 Instruction Type:Patient Education How to access health informa tion online - Detail Indication:BMI 21.0-21.9, adult Start:21-Mar-2020 Instruction Type:Patient Education Patient Instructions Indication:BMI 21.0-21.9, adult Start:21-Mar-2020 Instruction Type:Provider Instructions for Treatment Patient Instructions Indication:Hyperlipidemia Start:28-Feb-2020 Instruction Type:Provider Instructions for Treatment How to access health informa tion online Indication:Nonsmoker Start:28-Feb-2020 Instruction Type:Patient Education How to access health informa tion online - Detail Indication:Nonsmoker Start:28-Feb-2020 Instruction Type:Patient Education Patient Instructions Indication:Nonsmoker Start:28-Feb-2020 Instruction Type:Provider Instructions for Treatment Patient Instructions Indication:Restless leg Start:17-Jan-2020 Instruction Type:Provider Instructions for Treatment How to access health informa tion online Indication:Hypertension Start:17-Jan-2020 Instruction Type:Patient Education How to access health informa tion online - Detail Indication:Hypertension Start:17-Jan-2020 Instruction Type:Patient Education Patient Instructions Indication:Hypertension Start:17-Jan-2020 Instruction Type:Provider Instructions for Treatment Name Dates Details How to access health informa tion online Indication:BMI 21.0-21.9, adult Start:21-Mar-2020 Instruction Type:Patient Education How to access health informa tion online - Detail Indication:BMI 21.0-21.9, adult Start:21-Mar-2020 Instruction Type:Patient Education Patient Instructions Indication:BMI 21.0-21.9, adult Start:21-Mar-2020 Instruction Type:Provider Instructions for Treatment Patient Instructions Indication:Hyperlipidemia Start:28-Feb-2020 Instruction Type:Provider Instructions for Treatment How to access health informa tion online Indication:Nonsmoker Start:28-Feb-2020 Instruction Type:Patient Education How to access health informa tion online - Detail Indication:Nonsmoker Start:28-Feb-2020 Instruction Type:Patient Education Patient Instructions Indication:Nonsmoker Start:28-Feb-2020 Instruction Type:Provider Instructions for Treatment Patient Instructions Indication:Restless leg Start:17-Jan-2020 Instruction Type:Provider Instructions for Treatment How to access health informa tion online Indication:Hypertension Start:17-Jan-2020 Instruction Type:Patient Education How to access health informa tion online - Detail Indication:Hypertension Start:17-Jan-2020 Instruction Type:Patient Education Patient Instructions Indication:Hypertension Start:17-Jan-2020 Instruction Type:Provider Instructions for Treatment Name Dates Details Patient Instructions Indication:BMI 21.0-21.9, adult Start:08-Jun-2020 Instruction Type:Provider Instructions for Treatment How to Access Health Informa tion Online using Patient Portal and [employer] Indication:BMI 21.0-21.9, adult Start:08-Jun-2020 Instruction Type:Patient Education How to access health informa tion online Indication:BMI 21.0-21.9, adult Start:21-Mar-2020 Instruction Type:Patient Education How to access health informa tion online - Detail Indication:BMI 21.0-21.9, adult Start:21-Mar-2020 Instruction Type:Patient Education Patient Instructions Indication:BMI 21.0-21.9, adult Start:21-Mar-2020 Instruction Type:Provider Instructions for Treatment Patient Instructions Indication:Hyperlipidemia Start:28-Feb-2020 Instruction Type:Provider Instructions for Treatment How to access health informa tion online Indication:Nonsmoker Start:28-Feb-2020 Instruction Type:Patient Education How to access health informa tion online - Detail Indication:Nonsmoker Start:28-Feb-2020 Instruction Type:Patient Education Patient Instructions Indication:Nonsmoker Start:28-Feb-2020 Instruction Type:Provider Instructions for Treatment Patient Instructions Indication:Restless leg Start:17-Jan-2020 Instruction Type:Provider Instructions for Treatment How to access health informa tion online Indication:Hypertension Start:17-Jan-2020 Instruction Type:Patient Education How to access health informa tion online - Detail Indication:Hypertension Start:17-Jan-2020 Instruction Type:Patient Education Patient Instructions Indication:Hypertension Start:17-Jan-2020 Instruction Type:Provider Instructions for Treatment Name Dates Details How to access health informa tion online Indication:BMI 21.0-21.9, adult Start:21-Mar-2020 Instruction Type:Patient Education How to access health informa tion online - Detail Indication:BMI 21.0-21.9, adult Start:21-Mar-2020 Instruction Type:Patient Education Patient Instructions Indication:BMI 21.0-21.9, adult Start:21-Mar-2020 Instruction Type:Provider Instructions for Treatment Patient Instructions Indication:Hyperlipidemia Start:28-Feb-2020 Instruction Type:Provider Instructions for Treatment How to access health informa tion online Indication:Nonsmoker Start:28-Feb-2020 Instruction Type:Patient Education How to access health informa tion online - Detail Indication:Nonsmoker Start:28-Feb-2020 Instruction Type:Patient Education Patient Instructions Indication:Nonsmoker Start:28-Feb-2020 Instruction Type:Provider Instructions for Treatment Patient Instructions Indication:Restless leg Start:17-Jan-2020 Instruction Type:Provider Instructions for Treatment How to access health informa tion online Indication:Hypertension Start:17-Jan-2020 Instruction Type:Patient Education How to access health informa tion online - Detail Indication:Hypertension Start:17-Jan-2020 Instruction Type:Patient Education Patient Instructions Indication:Hypertension Start:17-Jan-2020 Instruction Type:Provider Instructions for Treatment Name Dates Details How to access health informa tion online Indication:Nonsmoker Start:28-Feb-2020 Instruction Type:Patient Education How to access health informa tion online - Detail Indication:Nonsmoker Start:28-Feb-2020 Instruction Type:Patient Education Patient Instructions Indication:Nonsmoker Start:28-Feb-2020 Instruction Type:Provider Instructions for Treatment Patient Instructions Indication:Restless leg Start:17-Jan-2020 Instruction Type:Provider Instructions for Treatment How to access health informa tion online Indication:Hypertension Start:17-Jan-2020 Instruction Type:Patient Education How to access health informa tion online - Detail Indication:Hypertension Start:17-Jan-2020 Instruction Type:Patient Education Patient Instructions Indication:Hypertension Start:17-Jan-2020 Instruction Type:Provider Instructions for Treatment Chief Complaint and Reason for Visit Chief Complaint Admit Date SVT (GO) September 19, 2024 1:58p m INT LAB ORDERS September 19, 2024 3:26p m Reason for Visit Admit Date Dyslipidemia September 19, 2024 1:58p m Generalized anxiety disorder September 19 025 1:58pm Hypertension, essential September 19, 2024 1 :58pm Palpitations September 19, 2024 1:58p m SVT (supraventricular tachycardia) September 19, 2024 1:58pm Chief Complaint SINUS/COUGHING N/V Reason for Visit Cough Sinusitis Chief Complaint N/V LUE ANESTHESIA/PARESTHESIA Chief Complaint LUE ANESTHESIA/PARES THESIA EXC NEUROMA BILAT FEET Chief Complaint FALL Chief Complaint Admit Date SVT (GO) September 19, 2024 1:58p m Advance Directives No Advanced Directives Records Found Advance Directive Response Recorded Date/ Time Name of Medical Power of Chipper Feeder KRISTEL JUÁREZ October 12, 2021 4:15pm Living Will Yes October 12, 2021 4:15pm Power of Chipper Feeder Yes October 12 4:15pm Advance Directive Response Recorded Date/ Time Living Will Yes October 12, 2021 4:15pm Power of Chipper Feeder Yes October 12 4:15pm Name of Medical Power of Chipper Feeder KRISTEL JUÁREZ October 12, 2021 4:15pm Advance Directive Response Recorded Date/ Time Living Will No January 14, 2022 11:20am Power of Chipper Feeder No December 11:20am Advance Directive Response Recorded Date/ Time Living Will No June 29, 2022 3:33pm Power of Chipper Feeder No June 29 3:33pm Reason for Referral Specialty Diagnoses / Procedures Referred By Contac t Referred To Contact [facility] Diagnoses Pain of left upper extremity Left hand weakness Numbness and tingling in left arm Cervical arthritis Procedures CONSULT TO PHYSICAL THERAPY PHYSICAL THERAPY EVALUATION HIGH COMPLEX 45 MINS Remy Perez MD [address] [place] [address] [facility] [place] [address] [place] [address] Referral ID Status Reason Start Date Expiration Date Visits Requested Visits Authorized [id number] Pending Review Auto-Generat ed Referral 11/06/2021 11/06/2022 1 1 Specialty Diagnoses / Procedures Referred By Contac t Referred To Contact Rheumatology Diagnoses Left upper extremity numbness Left hand pain Left hand weakness Positive ESTELLA (antinuclear antibody) Procedures CONSULT TO RHEUM/IMMUN DISEASE OFFICE/OUTPATIENT [facility] 60-74 MINUTES Aziza Thompson PA-C [address] [place] [address] Referral ID Status Reason Start Date Expiration Date Visits Requested Visits Authorized [id number] Pending Review PCP Requested Referral 12/27/2021 12/27/2022 1 1 Specialty Diagnoses / Procedures Referred By Contac t Referred To Contact [facility] Diagnoses Positive ESTELLA (antinuclear antibody) Procedures CONSULT TO PHYSICAL THERAPY PHYSICAL THERAPY EVALUATION HIGH COMPLEX [place] [address] [place] [address] [facility] [place] [address] [place] [address] Referral ID Status Reason Start Date Expiration Date Visits Requested Visits Authorized [id number] Pending Review Auto-Generat ed Referral 03/28/2022 03/28/2023 1 1 Specialty Diagnoses / Procedures Referred By Contac t Referred To Contact XR IMAGING Diagnoses Positive ESTELLA (antinuclear antibody) Procedures XR HIP GENERAL 3V PELV/AP/LAT LEFT RADEX HIP UNILATERAL WITH PELVIS 2-3 VIEWS Pe[place], [place] [address] [place] [phone] Xr Imaging Referral ID Status Reason Start Date Expiration Date Visits Requested Visits Authorized [id number] Pending Review Auto-Generat ed Referral 03/28/2022 04/27/2023 1 1 Specialty Diagnoses / Procedures Referred By Contac t Referred To Contact XR IMAGING Diagnoses Positive ESTELLA (antinuclear antibody) Procedures XR KNEE GENERAL 4V AP BOTH/PA BOTH/LAT/MERC BILATERAL RADIOLOGIC EXAM KNEE COMPLETE 4/[place] [address] [place] [phone] Xr Imaging Referral ID Status Reason Start Date Expiration Date Visits Requested Visits Authorized [id number] Pending Review Auto-Generat ed Referral 03/28/2022 04/27/2023 1 1 Specialty Diagnoses / Procedures Referred By Contac t Referred To Contact US IMAGING Diagnoses Positive ESTELLA (antinuclear antibody) Procedures US HAND/WRIST SYNOVIAL SCREEN LT US COMPL JOINT R-T W/[place] [address] [place] [phone] Us Imaging Referral ID Status Reason Start Date Expiration Date Visits Requested Visits Authorized [id number] Pending Review Auto-Generat ed Referral 03/28/2022 04/27/2023 1 1 Specialty Diagnoses / Procedures Referred By Contac t Referred To Contact US IMAGING Diagnoses Positive ESTELLA (antinuclear antibody) Procedures US HAND/WRIST SYNOVIAL SCREEN RT US COMPL JOINT R-T W/[place] [address] [place] [address] Us Imaging Referral ID Status Reason Start Date Expiration Date Visits Requested Visits Authorized [id number] Pending Review Auto-Generat ed Referral 03/28/2022 04/27/2023 1 1 Specialty Diagnoses / Procedures Referred By Contac t Referred To Contact [facility] Diagnoses Lumbar back pain Procedures CONSULT TO PHYSICAL THERAPY PHYSICAL THERAPY EVALUATION HIGH COMPLEX 45 MINS Aziza Thompson PA-C [address] [place] [address] [facility] [address] [address] Referral ID Status Reason Start Date Expiration Date Visits Requested Visits Authorized [id number] Pending Review Auto-Generat ed Referral 05/16/2022 05/16/2023 1 1 Specialty Diagnoses / Procedures Referred By Contac t Referred To Contact XR IMAGING Diagnoses Lumbar back pain Procedures XR LUMBAR GENERAL 3V AP/LAT/L5-S1 RADEX SPINE LUMBOSACRAL 2/3 VIEWS Aziza Thompson PA-C [address] [place] [address] Xr Imaging Referral ID Status Reason Start Date Expiration Date V isits Requested Visits Authorized [id number] Closed Auto-Generate d Referral 05/16/2022 06/15/2023 1 1 Specialty Diagnoses / Procedures Referred By Contac t Referred To Contact CT IMAGING Diagnoses Bone lesion Abnormal x-ray Procedures CT PELVIS WO IVCON CT PELVIS W/O CONTRAST MATERIAL Aziza Thompson PA-C [address] [place] [address] Ct Imaging Referral ID Status Reason Start Date Expiration Date Visits Requested Visits Authorized [id number] Authorized Auto-Generat ed Referral 05/19/2022 06/18/2023 1 1 Specialty Diagnoses / Procedures Referred By Contac t Referred To Contact [facility] Diagnoses Lumbar back pain Procedures PT REHAB FOLLOW UP ORDER PT REHAB FOLLOW UP ORDER THERAPEUTIC EXERCISES RE, EA 15 MIN. Jeyson Norman, PT [facility] [place] [address] [place] [address] Referral ID Status Reason Start Date Expiration Date Visits Requested Visits Authorized [id number] Pending Review PCP Requested Referral Auto-Generate d Referral 05/21/2022 08/19/2022 1 1 Specialty Diagnoses / Procedures Referred By Contac t Referred To Contact General Surgery Diagnoses Screening for colon cancer Procedures CONSULT TO GENERAL SURGERY OFFICE/OUTPATIENT NEW HIGH MDM 60-74 MINUTES Aziza Thompson PA-C [address] [place] [address] Referral ID Status Reason Start Date Expiration Date Visits Requested Visits Authorized [id number] Pending Review PCP Requested Referral 06/19/2022 06/19/2023 1 1 Specialty Diagnoses / Procedures Referred By Contac t Referred To Contact Gynecology Diagnoses Encounter for gynecological examination without abnormal finding Procedures CONSULT TO GYNECOLOGY OFFICE/OUTPATIENT [facility] 60-74 MINUTES Aziza Thompson PA-C [address] [place] [address] Referral ID Status Reason Start Date Expiration Date Visits Requested Visits Authorized [id number] Pending Review PCP Requested Referral Auto-Generate d Referral 06/19/2022 06/19/2023 1 1 Specialty Diagnoses / Procedures Referred By Contac t Referred To Contact Orthopedics Diagnoses Acute pain of right shoulder Procedures CONSULT TO ORTHOPAEDICS OFFICE/OUTPATIENT [facility] 60-74 MINUTES Rupinder Goss APRN.[employer]USTRIAL INS[employer]ATOR [address] [place] [address] Referral ID Status Reason Start Date Expiration Date Visits Requested Visits Authorized [id number] Pending Review PCP Requested Referral 07/03/2022 07/03/2023 1 1 Specialty Diagnoses / Procedures Referred By Contac t Referred To Contact [facility] Diagnoses Fall (on) (from) unspecified stairs and steps, subsequent encounter Procedures CONSULT TO PHYSICAL THERAPY PHYSICAL THERAPY EVALUATION HIGH COMPLEX 45 MINS Rupinder Goss APRN.INDUSTRIAL INSULATOR [address] [place] [address] [facility] [address] [address] Referral ID Status Reason Start Date Expiration Date Visits Requested Visits Authorized [id number] Pending Review Auto-Generat ed Referral 08/18/2022 08/18/2023 1 1 Specialty Diagnoses / Procedures Referred By Contac t Referred To Contact [facility] Diagnoses Fall (on) (from) unspecified stairs and steps, subsequent encounter Procedures PT REHAB FOLLOW UP ORDER THERAPEUTIC EXERCISES RE, EA 15 MIN. Quoc Mccracken, PT [address] [place] [address] [facility] [place] [phone] Referral ID Status Reason Start Date Expiration Date Visits Requested Visits Authorized [id number] Pending Review PCP Requested Referral Auto-Generate d Referral 08/29/2022 11/27/2022 1 1 Specialty Diagnoses / Procedures Referred By Contac t Referred To Contact CT IMAGING Diagnoses Bone lesion Abnormal x-ray Procedures CT PELVIS WO IVCON CT PELVIS W/O CONTRAST MATERIAL Aziza Thompson PA-C [address] [place] [address] [place] [address] Referral ID Status Reason Start Date Expiration Date V isits Requested Visits Authorized [id number] Closed Auto-Generate d Referral 05/19/2022 06/18/2023 1 1 Specialty Diagnoses / Procedures Referred By Contac t Referred To Contact MR IMAGING Diagnoses Radiculopathy of lumbar region Chronic midline low back pain without sciatica Decreased reflex Procedures MRI LUMBAR SPINE WO IVCON MRI LUMBAR SPINE WO IVCON MRI SPINAL CANAL LUMBAR W/O CONTRAST MATERIAL Aziza Thompson PA-C [address] [place] [address] [place] [address] Referral ID Status Reason Start Date Expiration Date Visits Requested Visits Authorized [id number] Pending Review Auto-Generat ed Referral 11/19/2023 12/18/2024 1 1 Referral ID Status Reason Start Date Expiration Date V isits Requested Visits Authorized [id number] Closed Auto-Generate d Referral 12/17/2023 02/13/2024 1 1 Specialty Diagnoses / Procedures Referred By Contac t Referred To Contact [facility] Diagnoses Lumbar back pain Spondylosis of lumbar region without myelopathy or radiculopathy Procedures CONSULT TO PHYSICAL THERAPY PHYSICAL THERAPY EVALUATION HIGH COMPLEX 45 MINS Remy Perez MD [address] [place] [address] [facility] [place] [address] [place] [address] Referral ID Status Reason Start Date Expiration Date Visits Requested Visits Authorized [id number] Authorized Auto-Generat ed Referral 04/20/2023 04/19/2024 1 1 Specialty Diagnoses / Procedures Referred By Contac t Referred To Contact Pain Management Diagnoses Lumbar back pain Spondylosis of lumbar region without myelopathy or radiculopathy Procedures CONSULT TO PAIN MGT OFFICE/OUTPATIENT NEW HIGH MDM 60 MINUTES Remy Perez MD [address] [place] [address] Referral ID Status Reason Start Date Expiration Date Visits Requested Visits Authorized [id number] Authorized PCP Requested Referral 12/23/2023 12/22/2024 1 1 Specialty Diagnoses / Procedures Referred By Contac t Referred To Contact [facility] Diagnoses Lumbar back pain Spondylosis of lumbar region without myelopathy or radiculopathy Procedures PT REHAB FOLLOW UP ORDER THERAPEUTIC EXERCISES RE, EA 15 MIN. Quoc Mccracken, PT [address] [place] [address] [facility] [address] [address] Referral ID Status Reason Start Date Expiration Date Visits Requested Visits Authorized [id number] New Request PCP Requested Referral Auto-Generate d Referral 01/21/2024 04/20/2024 1 1 Specialty Diagnoses / Procedures Referred By Contac t Referred To Contact [facility] Diagnoses Lumbar back pain Procedures PT REHAB FOLLOW UP ORDER THERAPEUTIC EXERCISES RE, EA 15 MIN. Quoc Mccracken, PT [address] [place] [address] [facility] [address] [place] [address] Referral ID Status Reason Start Date Expiration Date Visits Requested Visits Authorized [id number] New Request PCP Requested Referral Auto-Generate d Referral 02/25/2024 05/25/2024 1 1 Summary Purpose Medications Administered Section Inactive Administered Medications - up to 3 most recent administrations Medication Order MAR Action Action Date Dose Rate Site keTORolac 60 mg injection (TORADOL) 60 mg, INTRAMUSCULAR, ONCE, 1 dose, On Thu05/16/22 at 1200, Ketorolac (Toradol) is indicated for the short-term (up to 5 days) management of moderately severe acute pain. Continuation of ketorolac (Toradol) beyond 5 days increases the risk of developing serious adverse events. Please verify the duration of therapy for ketorolac (Toradol)., If ordered PRN for pain, patient/guardian may elect to receive this medication for higher pain levels INSTEAD of the opioid, if preferred: Yes Given 05/16/2022 12:20 PM EST 60 mg Buttocks, Right Inactive Administered Medications - up to 3 most recent administrations Medication Order MAR Action Action Date Dose Rate Site diphenhydrAMINE 12.5-50 mg injection (BENADRYL) 12.5-50 mg, INTRAVENOUS, DIRECTED, Starting on Gilda 01/22/23 at 1300, Until Gilda 01/22/23 at 1659, DOSING DIRECTED BY PHYSICIAN FOR PROCEDURAL SEDATION ONLY, Intraprocedure Given 01/22/2023 12:58 PM EDT 50 mg fentaNYL 50 mcg/mL 25-100 mcg injection (SUBLIMAZE) 25-100 mcg, INTRAVENOUS, DIRECTED, Starting on Gilda 01/22/23 at 1300, Until Gilda 01/22/23 at 1659, DOSING DIRECTED BY PHYSICIAN FOR PROCEDURAL SEDATION ONLY, Intraprocedure Given 01/22/2023 1:00 PM EDT 50 mcg Given 01/22/2023 12:56 PM EDT 50 mcg lactated ringers iv infusion 30 mL/hr, INTRAVENOUS, CONTINUOUS, Starting on Gilda 01/22/23 at 1130, Until Gilda 01/22/23 at 1335, Preprocedure New Bag/Syringe/Bottle 01/22/2023 11:42 AM EDT 30 mL/hr 30 mL/hr midazolam 1-5 mg injection (VERSED) 1-5 mg, INTRAVENOUS, DIRECTED, Starting on Gilda 01/22/23 at 1300, Until Gilda 01/22/23 at 1659, DOSING DIRECTED BY PHYSICIAN FOR PROCEDURAL SEDATION ONLY, Intraprocedure Given 01/22/2023 1:04 PM EDT 1 mg Given 01/22/2023 1:00 PM EDT 1 mg Given 01/22/2023 12:56 PM EDT 3 mg Health Concerns Infection Onset Date Last Indicated Resolved Time RSV 04/08/2023 04/08/2023 Additional Source Comments Goals (unrecognized section and content) Goals may be documented in a n alternate sectionGoals may be documented in an alternate sectionGoals may be documented in an alternate sectionGoals may be documented in an alternate sectionGoals may be documented in an alternate section Source Comments (unrecognize d section and content) In the event this informatio n is protected by the [facility] Confidentiality of Alcohol and Drug Abuse Patient Records regulations: The Federal rules restrict any use of the information to criminally investigate or prosecute any alcohol or drug abuse patient.[facility] the event this information is protected by the Federal Confidentiality of Alcohol and Drug Abuse Patient Records regulations: The Federal rules restrict any use of the information to criminally investigate or prosecute any alcohol or drug abuse patient.[facility] CenterIn the event this information is protected by the Federal Confidentiality of Alcohol and Drug Abuse Patient Records regulations: The Federal rules restrict any use of the information to criminally investigate or prosecute any alcohol or drug abuse patient.[facility] CenterIn the event this information is protected by the Federal Confidentiality of Alcohol and Drug Abuse Patient Records regulations: The Federal rules restrict any use of the information to criminally investigate or prosecute any alcohol or drug abuse patient.[facility] CenterIn the event this information is protected by the Federal Confidentiality of Alcohol and Drug Abuse Patient Records regulations: The Federal rules restrict any use of the information to criminally investigate or prosecute any alcohol or drug abuse patient.[facility] CenterIn the event this information is protected by the Federal Confidentiality of Alcohol and Drug Abuse Patient Records regulations: The Federal rules restrict any use of the information to criminally investigate or prosecute any alcohol or drug abuse patient.[facility] CenterIn the event this information is protected by the Federal Confidentiality of Alcohol and Drug Abuse Patient Records regulations: The Federal rules restrict any use of the information to criminally investigate or prosecute any alcohol or drug abuse patient.[facility] CenterIn the event this information is protected by the Federal Confidentiality of Alcohol and Drug Abuse Patient Records regulations: The Federal rules restrict any use of the information to criminally investigate or prosecute any alcohol or drug abuse patient.[facility] CenterIn the event this information is protected by the Federal Confidentiality of Alcohol and Drug Abuse Patient Records regulations: The Federal rules restrict any use of the information to criminally investigate or prosecute any alcohol or drug abuse patient.[facility] CenterIn the event this information is protected by the Federal Confidentiality of Alcohol and Drug Abuse Patient Records regulations: The Federal rules restrict any use of the information to criminally investigate or prosecute any alcohol or drug abuse patient.[facility] CenterIn the event this information is protected by the Federal Confidentiality of Alcohol and Drug Abuse Patient Records regulations: The Federal rules restrict any use of the information to criminally investigate or prosecute any alcohol or drug abuse patient.[facility] CenterIn the event this information is protected by the Federal Confidentiality of Alcohol and Drug Abuse Patient Records regulations: The Federal rules restrict any use of the information to criminally investigate or prosecute any alcohol or drug abuse patient.[facility] CenterIn the event this information is protected by the Federal Confidentiality of Alcohol and Drug Abuse Patient Records regulations: The Federal rules restrict any use of the information to criminally investigate or prosecute any alcohol or drug abuse patient.[facility] CenterIn the event this information is protected by the Federal Confidentiality of Alcohol and Drug Abuse Patient Records regulations: The Federal rules restrict any use of the information to criminally investigate or prosecute any alcohol or drug abuse patient.[facility] CenterIn the event this information is protected by the Federal Confidentiality of Alcohol and Drug Abuse Patient Records regulations: The Federal rules restrict any use of the information to criminally investigate or prosecute any alcohol or drug abuse patient.[facility] CenterIn the event this information is protected by the Federal Confidentiality of Alcohol and Drug Abuse Patient Records regulations: The Federal rules restrict any use of the information to criminally investigate or prosecute any alcohol or drug abuse patient.[facility] CenterIn the event this information is protected by the Federal Confidentiality of Alcohol and Drug Abuse Patient Records regulations: The Federal rules restrict any use of the information to criminally investigate or prosecute any alcohol or drug abuse patient.[facility] CenterIn the event this information is protected by the Federal Confidentiality of Alcohol and Drug Abuse Patient Records regulations: The Federal rules restrict any use of the information to criminally investigate or prosecute any alcohol or drug abuse patient.[facility] CenterIn the event this information is protected by the Federal Confidentiality of Alcohol and Drug Abuse Patient Records regulations: The Federal rules restrict any use of the information to criminally investigate or prosecute any alcohol or drug abuse patient.[facility] CenterIn the event this information is protected by the Federal Confidentiality of Alcohol and Drug Abuse Patient Records regulations: The Federal rules restrict any use of the information to criminally investigate or prosecute any alcohol or drug abuse patient.[facility] CenterIn the event this information is protected by the Federal Confidentiality of Alcohol and Drug Abuse Patient Records regulations: The Federal rules restrict any use of the information to criminally investigate or prosecute any alcohol or drug abuse patient.[facility] CenterIn the event this information is protected by the Federal Confidentiality of Alcohol and Drug Abuse Patient Records regulations: The Federal rules restrict any use of the information to criminally investigate or prosecute any alcohol or drug abuse patient.[facility] CenterIn the event this information is protected by the Federal Confidentiality of Alcohol and Drug Abuse Patient Records regulations: The Federal rules restrict any use of the information to criminally investigate or prosecute any alcohol or drug abuse patient.[facility] CenterIn the event this information is protected by the Federal Confidentiality of Alcohol and Drug Abuse Patient Records regulations: The Federal rules restrict any use of the information to criminally investigate or prosecute any alcohol or drug abuse patient.[facility] CenterIn the event this information is protected by the Federal Confidentiality of Alcohol and Drug Abuse Patient Records regulations: The Federal rules restrict any use of the information to criminally investigate or prosecute any alcohol or drug abuse patient.[facility] CenterIn the event this information is protected by the Federal Confidentiality of Alcohol and Drug Abuse Patient Records regulations: The Federal rules restrict any use of the information to criminally investigate or prosecute any alcohol or drug abuse patient.[facility] CenterIn the event this information is protected by the Federal Confidentiality of Alcohol and Drug Abuse Patient Records regulations: The Federal rules restrict any use of the information to criminally investigate or prosecute any alcohol or drug abuse patient.[facility] CenterIn the event this information is protected by the Federal Confidentiality of Alcohol and Drug Abuse Patient Records regulations: The Federal rules restrict any use of the information to criminally investigate or prosecute any alcohol or drug abuse patient.[facility] CenterIn the event this information is protected by the Federal Confidentiality of Alcohol and Drug Abuse Patient Records regulations: The Federal rules restrict any use of the information to criminally investigate or prosecute any alcohol or drug abuse patient.[facility] CenterIn the event this information is protected by the Federal Confidentiality of Alcohol and Drug Abuse Patient Records regulations: The Federal rules restrict any use of the information to criminally investigate or prosecute any alcohol or drug abuse patient.[facility] CenterIn the event this information is protected by the Federal Confidentiality of Alcohol and Drug Abuse Patient Records regulations: The Federal rules restrict any use of the information to criminally investigate or prosecute any alcohol or drug abuse patient.[facility] CenterIn the event this information is protected by the Federal Confidentiality of Alcohol and Drug Abuse Patient Records regulations: The Federal rules restrict any use of the information to criminally investigate or prosecute any alcohol or drug abuse patient.[facility] CenterIn the event this information is protected by the Federal Confidentiality of Alcohol and Drug Abuse Patient Records regulations: The Federal rules restrict any use of the information to criminally investigate or prosecute any alcohol or drug abuse patient.[facility] CenterIn the event this information is protected by the Federal Confidentiality of Alcohol and Drug Abuse Patient Records regulations: The Federal rules restrict any use of the information to criminally investigate or prosecute any alcohol or drug abuse patient.[facility] CenterIn the event this information is protected by the Federal Confidentiality of Alcohol and Drug Abuse Patient Records regulations: The Federal rules restrict any use of the information to criminally investigate or prosecute any alcohol or drug abuse patient.[facility] CenterIn the event this information is protected by the Federal Confidentiality of Alcohol and Drug Abuse Patient Records regulations: The Federal rules restrict any use of the information to criminally investigate or prosecute any alcohol or drug abuse patient.[facility] CenterIn the event this information is protected by the Federal Confidentiality of Alcohol and Drug Abuse Patient Records regulations: The Federal rules restrict any use of the information to criminally investigate or prosecute any alcohol or drug abuse patient.[facility] CenterIn the event this information is protected by the Federal Confidentiality of Alcohol and Drug Abuse Patient Records regulations: The Federal rules restrict any use of the information to criminally investigate or prosecute any alcohol or drug abuse patient.[facility] CenterIn the event this information is protected by the Federal Confidentiality of Alcohol and Drug Abuse Patient Records regulations: The Federal rules restrict any use of the information to criminally investigate or prosecute any alcohol or drug abuse patient.[facility] CenterIn the event this information is protected by the Federal Confidentiality of Alcohol and Drug Abuse Patient Records regulations: The Federal rules restrict any use of the information to criminally investigate or prosecute any alcohol or drug abuse patient.[facility] CenterIn the event this information is protected by the Federal Confidentiality of Alcohol and Drug Abuse Patient Records regulations: The Federal rules restrict any use of the information to criminally investigate or prosecute any alcohol or drug abuse patient.[facility] CenterIn the event this information is protected by the Federal Confidentiality of Alcohol and Drug Abuse Patient Records regulations: The Federal rules restrict any use of the information to criminally investigate or prosecute any alcohol or drug abuse patient.[facility] CenterIn the event this information is protected by the Federal Confidentiality of Alcohol and Drug Abuse Patient Records regulations: The Federal rules restrict any use of the information to criminally investigate or prosecute any alcohol or drug abuse patient.[facility]In the event this information is protected by the Federal Confidentiality of Alcohol and Drug Abuse Patient Records regulations: The Federal rules restrict any use of the information to criminally investigate or prosecute any alcohol or drug abuse patient.[facility] CenterIn the event this information is protected by the Federal Confidentiality of Alcohol and Drug Abuse Patient Records regulations: The Federal rules restrict any use of the information to criminally investigate or prosecute any alcohol or drug abuse patient.[facility] CenterIn the event this information is protected by the Federal Confidentiality of Alcohol and Drug Abuse Patient Records regulations: The Federal rules restrict any use of the information to criminally investigate or prosecute any alcohol or drug abuse patient.[facility] CenterIn the event this information is protected by the Federal Confidentiality of Alcohol and Drug Abuse Patient Records regulations: The Federal rules restrict any use of the information to criminally investigate or prosecute any alcohol or drug abuse patient.[facility] the event this information is protected by the Federal Confidentiality of Alcohol and Drug Abuse Patient Records regulations: The Federal rules restrict any use of the information to criminally investigate or prosecute any alcohol or drug abuse patient.[facility] CenterIn the event this information is protected by the Federal Confidentiality of Alcohol and Drug Abuse Patient Records regulations: The Federal rules restrict any use of the information to criminally investigate or prosecute any alcohol or drug abuse patient.[facility] CenterIn the event this information is protected by the Federal Confidentiality of Alcohol and Drug Abuse Patient Records regulations: The Federal rules restrict any use of the information to criminally investigate or prosecute any alcohol or drug abuse patient.[facility] CenterIn the event this information is protected by the Federal Confidentiality of Alcohol and Drug Abuse Patient Records regulations: The Federal rules restrict any use of the information to criminally investigate or prosecute any alcohol or drug abuse patient.[facility] CenterIn the event this information is protected by the Federal Confidentiality of Alcohol and Drug Abuse Patient Records regulations: The Federal rules restrict any use of the information to criminally investigate or prosecute any alcohol or drug abuse patient.[facility] CenterIn the event this information is protected by the Federal Confidentiality of Alcohol and Drug Abuse Patient Records regulations: The Federal rules restrict any use of the information to criminally investigate or prosecute any alcohol or drug abuse patient.[facility] CenterIn the event this information is protected by the Federal Confidentiality of Alcohol and Drug Abuse Patient Records regulations: The Federal rules restrict any use of the information to criminally investigate or prosecute any alcohol or drug abuse patient.[facility] CenterIn the event this information is protected by the Federal Confidentiality of Alcohol and Drug Abuse Patient Records regulations: The Federal rules restrict any use of the information to criminally investigate or prosecute any alcohol or drug abuse patient.[facility] CenterIn the event this information is protected by the Federal Confidentiality of Alcohol and Drug Abuse Patient Records regulations: The Federal rules restrict any use of the information to criminally investigate or prosecute any alcohol or drug abuse patient.[facility] CenterIn the event this information is protected by the Federal Confidentiality of Alcohol and Drug Abuse Patient Records regulations: The Federal rules restrict any use of the information to criminally investigate or prosecute any alcohol or drug abuse patient.[facility] CenterIn the event this information is protected by the Federal Confidentiality of Alcohol and Drug Abuse Patient Records regulations: The Federal rules restrict any use of the information to criminally investigate or prosecute any alcohol or drug abuse patient.[facility] CenterIn the event this information is protected by the Federal Confidentiality of Alcohol and Drug Abuse Patient Records regulations: The Federal rules restrict any use of the information to criminally investigate or prosecute any alcohol or drug abuse patient.[facility] CenterIn the event this information is protected by the Federal Confidentiality of Alcohol and Drug Abuse Patient Records regulations: The Federal rules restrict any use of the information to criminally investigate or prosecute any alcohol or drug abuse patient.[facility] CenterIn the event this information is protected by the Federal Confidentiality of Alcohol and Drug Abuse Patient Records regulations: The Federal rules restrict any use of the information to criminally investigate or prosecute any alcohol or drug abuse patient.[facility] CenterIn the event this information is protected by the Federal Confidentiality of Alcohol and Drug Abuse Patient Records regulations: The Federal rules restrict any use of the information to criminally investigate or prosecute any alcohol or drug abuse patient.[facility] CenterIn the event this information is protected by the Federal Confidentiality of Alcohol and Drug Abuse Patient Records regulations: The Federal rules restrict any use of the information to criminally investigate or prosecute any alcohol or drug abuse patient.[facility]In the event this information is protected by the Federal Confidentiality of Alcohol and Drug Abuse Patient Records regulations: The Federal rules restrict any use of the information to criminally investigate or prosecute any alcohol or drug abuse patient.[facility]In the event this information is protected by the Federal Confidentiality of Alcohol and Drug Abuse Patient Records regulations: The Federal rules restrict any use of the information to criminally investigate or prosecute any alcohol or drug abuse patient.[facility] CenterIn the event this information is protected by the Federal Confidentiality of Alcohol and Drug Abuse Patient Records regulations: The Federal rules restrict any use of the information to criminally investigate or prosecute any alcohol or drug abuse patient.[facility] CenterIn the event this information is protected by the Federal Confidentiality of Alcohol and Drug Abuse Patient Records regulations: The Federal rules restrict any use of the information to criminally investigate or prosecute any alcohol or drug abuse patient.[facility] CenterIn the event this information is protected by the Federal Confidentiality of Alcohol and Drug Abuse Patient Records regulations: The Federal rules restrict any use of the information to criminally investigate or prosecute any alcohol or drug abuse patient.[facility] CenterIn the event this information is protected by the Federal Confidentiality of Alcohol and Drug Abuse Patient Records regulations: The Federal rules restrict any use of the information to criminally investigate or prosecute any alcohol or drug abuse patient.[facility] CenterIn the event this information is protected by the Federal Confidentiality of Alcohol and Drug Abuse Patient Records regulations: The Federal rules restrict any use of the information to criminally investigate or prosecute any alcohol or drug abuse patient.[facility] CenterIn the event this information is protected by the Federal Confidentiality of Alcohol and Drug Abuse Patient Records regulations: The Federal rules restrict any use of the information to criminally investigate or prosecute any alcohol or drug abuse patient.[facility] CenterIn the event this information is protected by the Federal Confidentiality of Alcohol and Drug Abuse Patient Records regulations: The Federal rules restrict any use of the information to criminally investigate or prosecute any alcohol or drug abuse patient.[facility] CenterIn the event this information is protected by the Federal Confidentiality of Alcohol and Drug Abuse Patient Records regulations: The Federal rules restrict any use of the information to criminally investigate or prosecute any alcohol or drug abuse patient.[facility]In the event this information is protected by the Federal Confidentiality of Alcohol and Drug Abuse Patient Records regulations: The Federal rules restrict any use of the information to criminally investigate or prosecute any alcohol or drug abuse patient.[facility]In the event this information is protected by the Federal Confidentiality of Alcohol and Drug Abuse Patient Records regulations: The Federal rules restrict any use of the information to criminally investigate or prosecute any alcohol or drug abuse patient.[facility]In the event this information is protected by the Federal Confidentiality of Alcohol and Drug Abuse Patient Records regulations: The Federal rules restrict any use of the information to criminally investigate or prosecute any alcohol or drug abuse patient.[facility]In the event this information is protected by the Federal Confidentiality of Alcohol and Drug Abuse Patient Records regulations: The Federal rules restrict any use of the information to criminally investigate or prosecute any alcohol or drug abuse patient.[facility]In the event this information is protected by the Federal Confidentiality of Alcohol and Drug Abuse Patient Records regulations: The Federal rules restrict any use of the information to criminally investigate or prosecute any alcohol or drug abuse patient.[facility]In the event this information is protected by the Federal Confidentiality of Alcohol and Drug Abuse Patient Records regulations: The Federal rules restrict any use of the information to criminally investigate or prosecute any alcohol or drug abuse patient.[facility]In the event this information is protected by the Federal Confidentiality of Alcohol and Drug Abuse Patient Records regulations: The Federal rules restrict any use of the information to criminally investigate or prosecute any alcohol or drug abuse patient.[facility]In the event this information is protected by the Federal Confidentiality of Alcohol and Drug Abuse Patient Records regulations: The Federal rules restrict any use of the information to criminally investigate or prosecute any alcohol or drug abuse patient.[facility]In the event this information is protected by the Federal Confidentiality of Alcohol and Drug Abuse Patient Records regulations: The Federal rules restrict any use of the information to criminally investigate or prosecute any alcohol or drug abuse patient.[facility]In the event this information is protected by the Federal Confidentiality of Alcohol and Drug Abuse Patient Records regulations: The Federal rules restrict any use of the information to criminally investigate or prosecute any alcohol or drug abuse patient.[facility]In the event this information is protected by the Federal Confidentiality of Alcohol and Drug Abuse Patient Records regulations: The Federal rules restrict any use of the information to criminally investigate or prosecute any alcohol or drug abuse patient.[facility]In the event this information is protected by the Federal Confidentiality of Alcohol and Drug Abuse Patient Records regulations: The Federal rules restrict any use of the information to criminally investigate or prosecute any alcohol or drug abuse patient.[facility]In the event this information is protected by the Federal Confidentiality of Alcohol and Drug Abuse Patient Records regulations: The Federal rules restrict any use of the information to criminally investigate or prosecute any alcohol or drug abuse patient.[facility]In the event this information is protected by the Federal Confidentiality of Alcohol and Drug Abuse Patient Records regulations: The Federal rules restrict any use of the information to criminally investigate or prosecute any alcohol or drug abuse patient.[facility]In the event this information is protected by the Federal Confidentiality of Alcohol and Drug Abuse Patient Records regulations: The Federal rules restrict any use of the information to criminally investigate or prosecute any alcohol or drug abuse patient.[facility]In the event this information is protected by the Federal Confidentiality of Alcohol and Drug Abuse Patient Records regulations: The Federal rules restrict any use of the information to criminally investigate or prosecute any alcohol or drug abuse patient.[facility]In the event this information is protected by the Federal Confidentiality of Alcohol and Drug Abuse Patient Records regulations: The Federal rules restrict any use of the information to criminally investigate or prosecute any alcohol or drug abuse patient.[facility]In the event this information is protected by the Federal Confidentiality of Alcohol and Drug Abuse Patient Records regulations: The Federal rules restrict any use of the information to criminally investigate or prosecute any alcohol or drug abuse patient.[facility]In the event this information is protected by the Federal Confidentiality of Alcohol and Drug Abuse Patient Records regulations: The Federal rules restrict any use of the information to criminally investigate or prosecute any alcohol or drug abuse patient.[facility]In the event this information is protected by the Federal Confidentiality of Alcohol and Drug Abuse Patient Records regulations: The Federal rules restrict any use of the information to criminally investigate or prosecute any alcohol or drug abuse patient.[facility]In the event this information is protected by the Federal Confidentiality of Alcohol and Drug Abuse Patient Records regulations: The Federal rules restrict any use of the information to criminally investigate or prosecute any alcohol or drug abuse patient.[facility]In the event this information is protected by the Federal Confidentiality of Alcohol and Drug Abuse Patient Records regulations: The Federal rules restrict any use of the information to criminally investigate or prosecute any alcohol or drug abuse patient.[facility]In the event this information is protected by the Federal Confidentiality of Alcohol and Drug Abuse Patient Records regulations: The Federal rules restrict any use of the information to criminally investigate or prosecute any alcohol or drug abuse patient.[facility]In the event this information is protected by the Federal Confidentiality of Alcohol and Drug Abuse Patient Records regulations: The Federal rules restrict any use of the information to criminally investigate or prosecute any alcohol or drug abuse patient.[facility] the event this information is protected by the Federal Confidentiality of Alcohol and Drug Abuse Patient Records regulations: The Federal rules restrict any use of the information to criminally investigate or prosecute any alcohol or drug abuse patient.[facility]In the event this information is protected by the Federal Confidentiality of Alcohol and Drug Abuse Patient Records regulations: The Federal rules restrict any use of the information to criminally investigate or prosecute any alcohol or drug abuse patient.[facility]In the event this information is protected by the Federal Confidentiality of Alcohol and Drug Abuse Patient Records regulations: The Federal rules restrict any use of the information to criminally investigate or prosecute any alcohol or drug abuse patient.[facility]In the event this information is protected by the Federal Confidentiality of Alcohol and Drug Abuse Patient Records regulations: The Federal rules restrict any use of the information to criminally investigate or prosecute any alcohol or drug abuse patient.[facility]In the event this information is protected by the Federal Confidentiality of Alcohol and Drug Abuse Patient Records regulations: The Federal rules restrict any use of the information to criminally investigate or prosecute any alcohol or drug abuse patient.[facility]In the event this information is protected by the Federal Confidentiality of Alcohol and Drug Abuse Patient Records regulations: The Federal rules restrict any use of the information to criminally investigate or prosecute any alcohol or drug abuse patient.[facility]In the event this information is protected by the Federal Confidentiality of Alcohol and Drug Abuse Patient Records regulations: The Federal rules restrict any use of the information to criminally investigate or prosecute any alcohol or drug abuse patient.[facility]In the event this information is protected by the Federal Confidentiality of Alcohol and Drug Abuse Patient Records regulations: The Federal rules restrict any use of the information to criminally investigate or prosecute any alcohol or drug abuse patient.[facility]In the event this information is protected by the Federal Confidentiality of Alcohol and Drug Abuse Patient Records regulations: The Federal rules restrict any use of the information to criminally investigate or prosecute any alcohol or drug abuse patient.[facility]In the event this information is protected by the Federal Confidentiality of Alcohol and Drug Abuse Patient Records regulations: The Federal rules restrict any use of the information to criminally investigate or prosecute any alcohol or drug abuse patient.[facility]In the event this information is protected by the Federal Confidentiality of Alcohol and Drug Abuse Patient Records regulations: The Federal rules restrict any use of the information to criminally investigate or prosecute any alcohol or drug abuse patient.[facility]In the event this information is protected by the Federal Confidentiality of Alcohol and Drug Abuse Patient Records regulations: The Federal rules restrict any use of the information to criminally investigate or prosecute any alcohol or drug abuse patient.[facility]In the event this information is protected by the Federal Confidentiality of Alcohol and Drug Abuse Patient Records regulations: The Federal rules restrict any use of the information to criminally investigate or prosecute any alcohol or drug abuse patient.[facility]In the event this information is protected by the Federal Confidentiality of Alcohol and Drug Abuse Patient Records regulations: The Federal rules restrict any use of the information to criminally investigate or prosecute any alcohol or drug abuse patient.[facility]In the event this information is protected by the Federal Confidentiality of Alcohol and Drug Abuse Patient Records regulations: The Federal rules restrict any use of the information to criminally investigate or prosecute any alcohol or drug abuse patient.[facility]In the event this information is protected by the Federal Confidentiality of Alcohol and Drug Abuse Patient Records regulations: The Federal rules restrict any use of the information to criminally investigate or prosecute any alcohol or drug abuse patient.[facility]In the event this information is protected by the Federal Confidentiality of Alcohol and Drug Abuse Patient Records regulations: The Federal rules restrict any use of the information to criminally investigate or prosecute any alcohol or drug abuse patient.[facility]In the event this information is protected by the Federal Confidentiality of Alcohol and Drug Abuse Patient Records regulations: The Federal rules restrict any use of the information to criminally investigate or prosecute any alcohol or drug abuse patient.[facility]In the event this information is protected by the Federal Confidentiality of Alcohol and Drug Abuse Patient Records regulations: The Federal rules restrict any use of the information to criminally investigate or prosecute any alcohol or drug abuse patient.[facility]In the event this information is protected by the Federal Confidentiality of Alcohol and Drug Abuse Patient Records regulations: The Federal rules restrict any use of the information to criminally investigate or prosecute any alcohol or drug abuse patient.[facility]In the event this information is protected by the Federal Confidentiality of Alcohol and Drug Abuse Patient Records regulations: The Federal rules restrict any use of the information to criminally investigate or prosecute any alcohol or drug abuse patient.[facility]In the event this information is protected by the Federal Confidentiality of Alcohol and Drug Abuse Patient Records regulations: The Federal rules restrict any use of the information to criminally investigate or prosecute any alcohol or drug abuse patient.[facility]In the event this information is protected by the Federal Confidentiality of Alcohol and Drug Abuse Patient Records regulations: The Federal rules restrict any use of the information to criminally investigate or prosecute any alcohol or drug abuse patient.[facility]In the event this information is protected by the Federal Confidentiality of Alcohol and Drug Abuse Patient Records regulations: The Federal rules restrict any use of the information to criminally investigate or prosecute any alcohol or drug abuse patient.[facility]In the event this information is protected by the Federal Confidentiality of Alcohol and Drug Abuse Patient Records regulations: The Federal rules restrict any use of the information to criminally investigate or prosecute any alcohol or drug abuse patient.[facility]In the event this information is protected by the Federal Confidentiality of Alcohol and Drug Abuse Patient Records regulations: The Federal rules restrict any use of the information to criminally investigate or prosecute any alcohol or drug abuse patient.[facility]In the event this information is protected by the Federal Confidentiality of Alcohol and Drug Abuse Patient Records regulations: The Federal rules restrict any use of the information to criminally investigate or prosecute any alcohol or drug abuse patient.[facility] CenterIn the event this information is protected by the Federal Confidentiality of Alcohol and Drug Abuse Patient Records regulations: The Federal rules restrict any use of the information to criminally investigate or prosecute any alcohol or drug abuse patient.[facility] CenterIn the event this information is protected by the Federal Confidentiality of Alcohol and Drug Abuse Patient Records regulations: The Federal rules restrict any use of the information to criminally investigate or prosecute any alcohol or drug abuse patient.[facility] CenterIn the event this information is protected by the Federal Confidentiality of Alcohol and Drug Abuse Patient Records regulations: The Federal rules restrict any use of the information to criminally investigate or prosecute any alcohol or drug abuse patient.[facility] CenterIn the event this information is protected by the Federal Confidentiality of Alcohol and Drug Abuse Patient Records regulations: The Federal rules restrict any use of the information to criminally investigate or prosecute any alcohol or drug abuse patient.[facility] CenterIn the event this information is protected by the Federal Confidentiality of Alcohol and Drug Abuse Patient Records regulations: The Federal rules restrict any use of the information to criminally investigate or prosecute any alcohol or drug abuse patient.[facility] CenterIn the event this information is protected by the Federal Confidentiality of Alcohol and Drug Abuse Patient Records regulations: The Federal rules restrict any use of the information to criminally investigate or prosecute any alcohol or drug abuse patient.[facility] CenterIn the event this information is protected by the Federal Confidentiality of Alcohol and Drug Abuse Patient Records regulations: The Federal rules restrict any use of the information to criminally investigate or prosecute any alcohol or drug abuse patient.[facility] CenterIn the event this information is protected by the Federal Confidentiality of Alcohol and Drug Abuse Patient Records regulations: The Federal rules restrict any use of the information to criminally investigate or prosecute any alcohol or drug abuse patient.[facility] CenterIn the event this information is protected by the Federal Confidentiality of Alcohol and Drug Abuse Patient Records regulations: The Federal rules restrict any use of the information to criminally investigate or prosecute any alcohol or drug abuse patient.[facility] CenterIn the event this information is protected by the Federal Confidentiality of Alcohol and Drug Abuse Patient Records regulations: The Federal rules restrict any use of the information to criminally investigate or prosecute any alcohol or drug abuse patient.[facility] CenterIn the event this information is protected by the Federal Confidentiality of Alcohol and Drug Abuse Patient Records regulations: The Federal rules restrict any use of the information to criminally investigate or prosecute any alcohol or drug abuse patient.[facility] CenterIn the event this information is protected by the Federal Confidentiality of Alcohol and Drug Abuse Patient Records regulations: The Federal rules restrict any use of the information to criminally investigate or prosecute any alcohol or drug abuse patient.[facility] CenterIn the event this information is protected by the Federal Confidentiality of Alcohol and Drug Abuse Patient Records regulations: The Federal rules restrict any use of the information to criminally investigate or prosecute any alcohol or drug abuse patient.[facility] CenterIn the event this information is protected by the Federal Confidentiality of Alcohol and Drug Abuse Patient Records regulations: The Federal rules restrict any use of the information to criminally investigate or prosecute any alcohol or drug abuse patient.[facility] CenterIn the event this information is protected by the Federal Confidentiality of Alcohol and Drug Abuse Patient Records regulations: The Federal rules restrict any use of the information to criminally investigate or prosecute any alcohol or drug abuse patient.[facility] CenterIn the event this information is protected by the Federal Confidentiality of Alcohol and Drug Abuse Patient Records regulations: The Federal rules restrict any use of the information to criminally investigate or prosecute any alcohol or drug abuse patient.[facility] CenterIn the event this information is protected by the Federal Confidentiality of Alcohol and Drug Abuse Patient Records regulations: The Federal rules restrict any use of the information to criminally investigate or prosecute any alcohol or drug abuse patient.[facility] CenterIn the event this information is protected by the Federal Confidentiality of Alcohol and Drug Abuse Patient Records regulations: The Federal rules restrict any use of the information to criminally investigate or prosecute any alcohol or drug abuse patient.[facility] CenterIn the event this information is protected by the Federal Confidentiality of Alcohol and Drug Abuse Patient Records regulations: The Federal rules restrict any use of the information to criminally investigate or prosecute any alcohol or drug abuse patient.[facility] CenterIn the event this information is protected by the Federal Confidentiality of Alcohol and Drug Abuse Patient Records regulations: The Federal rules restrict any use of the information to criminally investigate or prosecute any alcohol or drug abuse patient.[facility] CenterIn the event this information is protected by the Federal Confidentiality of Alcohol and Drug Abuse Patient Records regulations: The Federal rules restrict any use of the information to criminally investigate or prosecute any alcohol or drug abuse patient.[facility] CenterIn the event this information is protected by the Federal Confidentiality of Alcohol and Drug Abuse Patient Records regulations: The Federal rules restrict any use of the information to criminally investigate or prosecute any alcohol or drug abuse patient.[facility] CenterIn the event this information is protected by the Federal Confidentiality of Alcohol and Drug Abuse Patient Records regulations: The Federal rules restrict any use of the information to criminally investigate or prosecute any alcohol or drug abuse patient.[facility] CenterIn the event this information is protected by the Federal Confidentiality of Alcohol and Drug Abuse Patient Records regulations: The Federal rules restrict any use of the information to criminally investigate or prosecute any alcohol or drug abuse patient.[facility] Reason for Visit (unrecogniz ed section and content) Reason Comments PT Discharge Specialty Diagnoses / Procedures Referred By Contac t Referred To Contact [facility] Diagnoses Plantar fasciitis of right foot Procedures PT REHAB FOLLOW UP ORDER THERAPEUTIC EXERCISES RE, EA 15 MIN. Aziza Thompson PA-C [address] [place] [address] Phone: tel: fax: [facility] [address] [place] [id number] Referral ID Status Reason Start Date Expiration Date Visits Requested Visits Authorized [id number] Authorized PCP Requested Referral Auto-Generate d Referral 07/21/2024 10/17/2024 3 3 Reason Comments Physical Therapy Specialty Diagnoses / Procedures Referred By Contac t Referred To Contact [facility] Diagnoses Lumbar back pain Spondylosis of lumbar region without myelopathy or radiculopathy Procedures PT REHAB FOLLOW UP ORDER THERAPEUTIC EXERCISES RE, EA 15 MIN. Quoc Mccracken, PT [address] [place] [address] [facility] [place] [address] [place] [address] Referral ID Status Reason Start Date Expiration Date Visits Requested Visits Authorized [id number] Authorized PCP Requested Referral Auto-Generate d Referral 01/26/2024 04/19/2024 8 8 Specialty Diagnoses / Procedures Referred By Puneetac t Referred To Contact PHYSICAL THERAPY Diagnoses Fall (on) (from) unspecified stairs and steps, subsequent encounter [W10.9XXD] Procedures Additional physical therapy approval needed through 02-17-2023 Remy Perez MD [address] [place] [address] Pt [facility] [address] [place] [id number] Referral ID Status Reason Start Date Expiration Date Visits Re quested Visits Authorized [id number] Closed 11/24/2022 02/24/2023 4 4 Referral ID Status Reason Start Date Expiration Date V isits Requested Visits Authorized [id number] Authorized 11/24/2022 02/24/2023 4 4 Reason Comments Results Reason Comments Musculoskeletal Problem left hand and fi ngers Reason Comments Results Reason Comments Recheck Specialty Diagnoses / Procedures Referred By Shell t Referred To Contact [facility] Diagnoses follow up Procedures follow up Remy Perez MD [address] [place] [address] [facility] [address] [place] [address] Referral ID Status Reason Start Date Expiration Date Visits Requested Visits Authorized [id number] Pending Review OON/Self Pay Override 11/01/2021 01/30/2022 1 1 Reason Comments Results EMG Reason Comments Blood Pressure Check Reason Onset Date Comments Refill Request 01/11/2022 Reason Onset Date Comments Pre-Op Exam Immunizations 01/27/2022 Flu vaccination Reason Comments Referral Information Reason Onset Date Comments Refill Request 01/31/2022 Reason Onset Date Comments Refill Request 02/15/2022 Reason Comments New Patient Joint Pain Specialty Diagnoses / Procedures Referred By Puneetac t Referred To Contact Rheumatology Diagnoses Left upper extremity numbness Left hand pain Left hand weakness Positive ESTELLA (antinuclear antibody) Procedures CONSULT TO RHEUM/IMMUN DISEASE OFFICE/OUTPATIENT NEW HIGH MDM 60-74 MINUTES Aziza Thompson PA-C [address] [place] [address] Referral ID Status Reason Start Date Expiration Date Visits Requested Visits Authorized [id number] Pending Review PCP Requested Referral 12/27/2021 12/27/2022 1 1 Reason Comments Sinusitis Reason Comments Follow Up Reason Comments Back Pain Lower back pain X 1 wk Reason Comments PT Eval Specialty Diagnoses / Procedures Referred By Contac t Referred To Contact [facility] Diagnoses Lumbar back pain Procedures CONSULT TO PHYSICAL THERAPY PHYSICAL THERAPY EVALUATION HIGH COMPLEX 45 MINS Aziza Thompson PA-C [address] [place] [address] [facility] [place] [address] [place] [address] Referral ID Status Reason Start Date Expiration Date V isits Requested Visits Authorized [id number] Closed Auto-Generate d Referral 05/21/2022 06/23/2022 1 1 Reason Comments Yearly Exam Reason Comments Consult Screening for colon cancer Specialty Diagnoses / Procedures Referred By Contac t Referred To Contact General Surgery Diagnoses Screening for colon cancer Procedures CONSULT TO GENERAL SURGERY OFFICE/OUTPATIENT [facility] 60-74 MINUTES Aziza Thompson PA-C [address] [place] [address] Referral ID Status Reason Start Date Expiration Date Visits Requested Visits Authorized [id number] Pending Review PCP Requested Referral 06/19/2022 06/19/2023 1 1 Reason Onset Date Comments Refill Request 06/30/2022 Reason Comments ER F/U Reason Comments ER F/U Reason Comments Follow Up Reason Comments Behavioral Health Social Work Reason Comments Dislocation New Pain Specialty Diagnoses / Procedures Referred By Contac t Referred To Contact Orthopedics Diagnoses Acute pain of right shoulder Procedures CONSULT TO ORTHOPAEDICS OFFICE/OUTPATIENT [facility] 60-74 MINUTES Rupinder Goss APRN.[employer] [address] [place] [address] Referral ID Status Reason Start Date Expiration Date Visits Requested Visits Authorized [id number] Pending Review PCP Requested Referral 07/03/2022 07/03/2023 1 1 Specialty Diagnoses / Procedures Referred By Contac t Referred To Contact [facility] Diagnoses Lumbar back pain Procedures PT REHAB FOLLOW UP ORDER PT REHAB FOLLOW UP ORDER THERAPEUTIC EXERCISES RE, EA 15 MIN. Jeyson Norman PT [facility] [place] [address] [place] [address] Referral ID Status Reason Start Date Expiration Date Visits Requested Visits Authorized [id number] Authorized PCP Requested Referral Auto-Generate d Referral 05/22/2022 10/17/2022 8 8 Specialty Diagnoses / Procedures Referred By Contac t Referred To Contact [facility] Diagnoses Lumbar back pain Procedures PT REHAB FOLLOW UP ORDER PT REHAB FOLLOW UP ORDER THERAPEUTIC EXERCISES RE, EA 15 MIN. Jeyson Norman PT [facility] [place] [address] [place] [address] Reason Comments PT Progress Note Reason Comments Medication Problem Reason Onset Date Comments Refill Request 12/29/2022 Reason Comments Follow Up Review colonoscopy r esults. Reason Comments Knee Pain Both knees but mainl y right knee. Also neck pain Reason Onset Date Comments Refill Request 02/13/[address] Specialty Diagnoses / Procedures Referred By Contac t Referred To Contact CT IMAGING Diagnoses Bone lesion Abnormal x-ray Procedures CT PELVIS WO IVCON CT PELVIS W/O CONTRAST MATERIAL Aziza Thompsno PA-C [address] [place] [address] [place] [address] Referral ID Status Reason Start Date Expiration Date V isits Requested Visits Authorized [id number] Closed Auto-Generate d Referral 05/19/2022 06/18/2023 1 1 Reason Comments Sinus Problem sinus pressure, coug h x 4 days Reason Comments Sinus Problem Reason Comments Pain, Sinus Sinus pain and press ure, cough x 2 weeks Reason Onset Date Comments Refill Request 06/24/2023 Reason Onset Date Comments Refill Request 06/26/2023 Reason Comments Medicare Wellness Exam Reason Onset Date Comments Refill Request 08/06/2023 Reason Onset Date Comments Refill Request 11/11/2023 Reason Comments Back Pain On going has been ge tting worse Specialty Diagnoses / Procedures Referred By Contac t Referred To Contact MR IMAGING Diagnoses Radiculopathy of lumbar region Chronic midline low back pain without sciatica Decreased reflex Procedures MRI LUMBAR SPINE WO IVCON MRI LUMBAR SPINE WO IVCON MRI SPINAL CANAL LUMBAR W/O CONTRAST MATERIAL Aziza Thompson PA-C [address] [place] [address] Mr Imaging [facility] Referral ID Status Reason Start Date Expiration Date V isits Requested Visits Authorized [id number] Closed Auto-Generate d Referral 12/17/2023 02/13/2024 1 1 Reason Onset Date Comments Refill Request 12/23/2023 Specialty Diagnoses / Procedures Referred By Contac t Referred To Contact [facility] Diagnoses xray Procedures xray Self [facility] [address] [place] [phone] Referral ID Status Reason Start Date Expiration Date Visits Requested Visits Authorized [id number] Outside PCP OON/Self Pay Override 11/04/2021 02/02/2022 1 1 Specialty Diagnoses / Procedures Referred By Contac t Referred To Contact [facility] Diagnoses Lumbar back pain Spondylosis of lumbar region without myelopathy or radiculopathy Procedures CONSULT TO PHYSICAL THERAPY PHYSICAL THERAPY EVALUATION HIGH COMPLEX 45 MINS Remy Perez MD [address] [place] [phone] [facility] [address] [address] Referral ID Status Reason Start Date Expiration Date V isits Requested Visits Authorized [id number] Closed Auto-Generate d Referral 04/20/2023 04/19/2024 1 1 Reason Onset Date Comments Refill Request 02/03/2024 Reason Comments 6 Month Exam Reason Comments PT Progress Note Specialty Diagnoses / Procedures Referred By Contac t Referred To Contact [facility] Diagnoses Lumbar back pain Spondylosis of lumbar region without myelopathy or radiculopathy Procedures PT REHAB FOLLOW UP ORDER THERAPEUTIC EXERCISES RE, EA 15 MIN. Quoc Mccracken, PT [address] [place] [address] [facility] [place] [phone] Reason Comments Cough Sinus congestion, HSIEH , drainage, sore throat, sinus pressure, left ear pain x 5 days Reason Onset Date Comments Refill Request 03/27/2024 Reason Onset Date Comments Refill Request 04/11/2024 Reason Onset Date Comments Refill Request 05/17/2024 Reason Comments plantar fascitis Right foot has gotte n worse Reason Comments Plantar Fasciitis Here for injection i n R heel Specialty Diagnoses / Procedures Referred By Contac t Referred To Contact [facility] Diagnoses Plantar fasciitis of right foot Procedures CONSULT TO PHYSICAL THERAPY PHYSICAL THERAPY EVALUATION HIGH COMPLEX 45 MINS Aziza Thompson PA-C [address] [place] [address] Phone: tel: fax: [facility] [address] [place] [address] Referral ID Status Reason Start Date Expiration Date V isits Requested Visits Authorized [id number] Closed Auto-Generate d Referral 04/20/2024 04/19/2025 1 1 Reason Onset Date Comments Results 07/19/2024 Reason Comments Patient Question Specialty Diagnoses / Procedures Referred By Contac t Referred To Contact [facility] Diagnoses Lumbar back pain Spondylosis of lumbar region without myelopathy or radiculopathy Procedures CONSULT TO PHYSICAL THERAPY PHYSICAL THERAPY EVALUATION HIGH COMPLEX 45 MINS Remy Perez MD [address] [place] [address] Phone: tel: fax: [facility] [address] [place] [address] Referral ID Status Reason Start Date Expiration Date V isits Requested Visits Authorized [id number] Closed Auto-Generate d Referral 04/20/2024 04/19/2025 1 1 Reason Comments Medicare Wellness Exam Reason Onset Date Comments Results 08/09/2024 Reason Comments Follow Up Blood pressure Reason Onset Date Comments Refill Request 09/14/2024 Reason Comments Follow Up Leg cramps Reason Comments Outside [id number] Ordered Reason Comments Received Outside Medical Records Podiatr y OV notes Reason Comments Recheck Follow up medication Reason Onset Date Comments Refill Request 10/14/2024 Care Teams (unrecognized sec tion and content) Code Enforcement Supervisor Relationship Specialty Start Date End Date Remy Perez MD [address] [place] [address] PCP - General Family Practice 11/15/21 Code Enforcement Supervisor Relationship Specialty Start Date End Date Remy Perez MD [address] [facility] [place] [address] PCP - General Family Practice 11/15/21 Code Enforcement Supervisor Relationship Specialty Start Date End Date Remy Perez MD [facility] [place] [address] PCP - General Family Practice 11/15/21 Code Enforcement Supervisor Relationship Specialty Start Date End Date Remy Perez MD [facility] [place] [address] PCP - General Family Practice 11/15/21 Code Enforcement Supervisor Relationship Specialty Start Date End Date Remy Perez MD [address] [place] [address], [place] [address] PCP - General Family Practice 11/15/21 Code Enforcement Supervisor Relationship Specialty Start Date End Date Remy Perez MD [address] [place] [address], [place] [address] PCP - General Family Practice 11/15/21 Code Enforcement Supervisor Relationship Specialty Start Date End Date Remy Perez MD [address] [place] [address], [place] [address] PCP - General Family Practice 11/15/21 Code Enforcement Supervisor Relationship Specialty Start Date End Date Remy Perez MD [facility] [place] [address] PCP - General Family Practice 11/15/21 Code Enforcement Supervisor Relationship Specialty Start Date End Date Remy Perez MD [facility] [place] [address] PCP - General Family Practice 11/15/21 Code Enforcement Supervisor Relationship Specialty Start Date End Date Remy Perez MD [address] [place] [address], [place] [address] PCP - General Family Practice 11/15/21 Code Enforcement Supervisor Relationship Specialty Start Date End Date Remy Perez MD [address] [facility] [place] [address] PCP - General Family Medicine 11/15/21 Code Enforcement Supervisor Relationship Specialty Start Date End Date Remy Perez MD [address] [facility] [address] PCP - General Family Medicine 11/15/21 Code Enforcement Supervisor Relationship Specialty Start Date End Date Remy Perez MD [facility] [place] [address] PCP - General Family Medicine 11/15/21 Code Enforcement Supervisor Relationship Specialty Start Date End Date Remy Perez MD [address] [place] [address], [place] [address] PCP - General Family Medicine 11/15/21 Code Enforcement Supervisor Relationship Specialty Start Date End Date Remy Perez MD [facility] [place] [address] PCP - General Family Medicine 11/15/21 Code Enforcement Supervisor Relationship Specialty Start Date End Date Remy Perez MD [facility] [place] [address] PCP - General Family Medicine 11/15/21 Code Enforcement Supervisor Relationship Specialty Start Date End Date Remy Perez MD [facility] [place] [address] PCP - General Family Medicine 11/15/21 Code Enforcement Supervisor Relationship Specialty Start Date End Date Remy Perez MD [facility] [place] [address] PCP - General Family Medicine 11/15/21 Code Enforcement Supervisor Relationship Specialty Start Date End Date Remy Perez MD [facility] [place] [address] PCP - General Family Medicine 11/15/21 Code Enforcement Supervisor Relationship Specialty Start Date End Date Remy Perez MD [address] [facility] [address] PCP - General Family Medicine 11/15/21 Code Enforcement Supervisor Relationship Specialty Start Date End Date Remy Perez MD [address] [facility] [address] PCP - General Family Medicine 11/15/21 Code Enforcement Supervisor Relationship Specialty Start Date End Date Remy Perez MD [facility] [place] [address] PCP - General Family Medicine 11/15/21 Code Enforcement Supervisor Relationship Specialty Start Date End Date Remy Perez MD [address] [place] [address], [place] [address] PCP - General Family Medicine 11/15/21 Code Enforcement Supervisor Relationship Specialty Start Date End Date Remy Perez MD [facility] [place] [address] PCP - General Family Medicine 11/15/21 Code Enforcement Supervisor Relationship Specialty Start Date End Date Remy Perez MD [facility] [place] [address] PCP - General Family Medicine 11/15/21 Code Enforcement Supervisor Relationship Specialty Start Date End Date Remy Perez MD [address] [facility] [address] PCP - General Family Medicine 11/15/21 Code Enforcement Supervisor Relationship Specialty Start Date End Date Remy Perez MD [facility] [place] [address] PCP - General Family Medicine 11/15/21 Team Status: Active Member Role Status Dates Dr. Remy Perez MD Primary Care Provider Active Team Status: Inactive Member Role Status Dates Dr. Remy Perez MD Primary Care Provider Active Dr. Villa Youssef MD Emergency Provider Active Code Enforcement Supervisor Relationship Specialty Start Date End Date Remy Perez MD [address] [facility] [place] [address] PCP - General Family Medicine 11/15/21 Code Enforcement Supervisor Relationship Specialty Start Date End Date Remy Perez MD [address] [facility] [address] PCP - General Family Medicine 11/15/21 Code Enforcement Supervisor Relationship Specialty Start Date End Date Remy Perez MD [facility] [place] [address] PCP - General Family Medicine 11/15/21 Code Enforcement Supervisor Relationship Specialty Start Date End Date Remy Perez MD [address] [place] [address], [place] [address] PCP - General Family Medicine 11/15/21 Code Enforcement Supervisor Relationship Specialty Start Date End Date Remy Perez MD [facility] [place] [address] PCP - General Family Medicine 11/15/21 Code Enforcement Supervisor Relationship Specialty Start Date End Date Remy Perez MD [address] [place] [address], [place] [address] PCP - General Family Medicine 11/15/21 Code Enforcement Supervisor Relationship Specialty Start Date End Date Remy Perez MD [facility] [place] [address] PCP - General Family Medicine 11/15/21 Code Enforcement Supervisor Relationship Specialty Start Date End Date Remy Perez MD [address] [place] [address], [place] [address] PCP - General Family Medicine 11/15/21 Code Enforcement Supervisor Relationship Specialty Start Date End Date Remy Perez MD [address] [place] [address], [place] [address] PCP - General Family Medicine 11/15/21 Code Enforcement Supervisor Relationship Specialty Start Date End Date Remy Perez MD [address] [place] [address] PCP - General Family Medicine 11/15/21 Code Enforcement Supervisor Relationship Specialty Start Date End Date Remy Perez MD [address] [place] [address] PCP - General Family Medicine 11/15/21 Code Enforcement Supervisor Relationship Specialty Start Date End Date Remy Perez MD [address] [place] [address] PCP - General Family Medicine 11/15/21 Code Enforcement Supervisor Relationship Specialty Start Date End Date Remy Perez MD [address] [place] [address] PCP - General Family Medicine 11/15/21 Code Enforcement Supervisor Relationship Specialty Start Date End Date Remy Perez MD [address] [place] [address] PCP - General Family Medicine 11/15/21 Code Enforcement Supervisor Relationship Specialty Start Date End Date Remy Perez MD [address] [place] [address] PCP - General Family Medicine 11/15/21 Code Enforcement Supervisor Relationship Specialty Start Date End Date Remy Perez MD [address] [place] [address] PCP - General Family Medicine 11/15/21 Code Enforcement Supervisor Relationship Specialty Start Date End Date Remy Perez MD [address] [facility] [place] [address] PCP - General Family Medicine 11/15/21 Code Enforcement Supervisor Relationship Specialty Start Date End Date Remy Perez MD [address] [facility] [place] [address] PCP - General Family Medicine 11/15/21 Code Enforcement Supervisor Relationship Specialty Start Date End Date Remy Perez MD [address] [place] [address] PCP - General Family Medicine 11/15/21 Code Enforcement Supervisor Relationship Specialty Start Date End Date Remy Perez MD [address] [place] [address] PCP - General Family Medicine 11/15/21 Code Enforcement Supervisor Relationship Specialty Start Date End Date Remy Perez MD [address] [place] [address] PCP - General Family Medicine 11/15/21 Code Enforcement Supervisor Relationship Specialty Start Date End Date Remy Perez MD [address] [place] [address] PCP - General Family Medicine 11/15/21 Code Enforcement Supervisor Relationship Specialty Start Date End Date Remy Perez MD [address] [facility] [place] [address] PCP - General Family Medicine 11/15/21 Code Enforcement Supervisor Relationship Specialty Start Date End Date Remy Perez MD [address] [facility] [place] [address] PCP - General Family Medicine 11/15/21 Code Enforcement Supervisor Relationship Specialty Start Date End Date Remy Perez MD [address] [place] [address] PCP - General Family Medicine 11/15/21 Code Enforcement Supervisor Relationship Specialty Start Date End Date Remy Perez MD [address] [place] [address] PCP - General Family Medicine 11/15/21 Code Enforcement Supervisor Relationship Specialty Start Date End Date Remy Perez MD [address] [place] [address] PCP - General Family Medicine 11/15/21 Code Enforcement Supervisor Relationship Specialty Start Date End Date Remy Perez MD [address] [place] [address] PCP - General Family Medicine 11/15/21 Code Enforcement Supervisor Relationship Specialty Start Date End Date Remy Perez MD [address] [place] [address] PCP - General Family Medicine 11/15/21 Code Enforcement Supervisor Relationship Specialty Start Date End Date Remy Perez MD [address] [place] [address] PCP - General Family Medicine 11/15/21 Code Enforcement Supervisor Relationship Specialty Start Date End Date Remy Perez MD [address] [place] [address] PCP - General Family Medicine 11/15/21 Code Enforcement Supervisor Relationship Specialty Start Date End Date Remy Perez MD [address] [place] [address] PCP - General Family Medicine 11/15/21 Code Enforcement Supervisor Relationship Specialty Start Date End Date Remy Perez MD [address] [place] [address] PCP - General Family Medicine 11/15/21 Code Enforcement Supervisor Relationship Specialty Start Date End Date Remy Perez MD [address] [place] [address] PCP - General Family Medicine 11/15/21 Code Enforcement Supervisor Relationship Specialty Start Date End Date Remy Perez MD [address] [place] [address] PCP - General Family Medicine 11/15/21 Code Enforcement Supervisor Relationship Specialty Start Date End Date Remy Perez MD [address] [place] [address] PCP - General Family Medicine 11/15/21 Code Enforcement Supervisor Relationship Specialty Start Date End Date Remy Perez MD [address] [place] [address] PCP - General Family Medicine 11/15/21 Code Enforcement Supervisor Relationship Specialty Start Date End Date Remy Perez MD [address] [place] [address] PCP - General Family Medicine 11/15/21 Code Enforcement Supervisor Relationship Specialty Start Date End Date Remy Perez MD [address] [place] [address] PCP - General Family Medicine 11/15/21 Code Enforcement Supervisor Relationship Specialty Start Date End Date Remy Perez MD [address] [place] [address] PCP - General Family Medicine 11/15/21 Code Enforcement Supervisor Relationship Specialty Start Date End Date Remy Perez MD [address] [place] [address] PCP - General Family Medicine 11/15/21 Rupinder Goss, EVELIN.INDUSTRIAL INSULATOR [address] [place] [address] [employer] [facility] 03/26/24 Aziza Thompson PA-C [address] [place] [address] [facility] 03/26/24 Code Enforcement Supervisor Relationship Specialty Start Date End Date Remy Perez MD [address] [place] [address] PCP - General Family Medicine 11/15/21 Rupinder Goss, DESIGN DRAFTSMAN.INDUSTRIAL INSULATOR [address] [place] [address] [facility] 03/26/24 Aziza Thompson PA-C [address] [place] [address] [facility] 03/26/24 Code Enforcement Supervisor Relationship Specialty Start Date End Date Remy Perez MD [address] [place] [address] PCP - General Family Medicine 11/15/21 Rupinder Goss, DESIGN DRAFTSMAN.INDUSTRIAL INSULATOR [address] [place] [address] [facility] 03/26/24 Aziza Thompson PA-C [address] [facility] [place] [address] [facility] 03/26/24 Code Enforcement Supervisor Relationship Specialty Start Date End Date Remy Perez MD [address] [facility] [place] [address] PCP - General Family Medicine 11/15/21 Rupinder Goss APRN.INDUSTRIAL INSULATOR [address] [place] [address] [facility] 03/26/24 Aziza Thompson PA-C [address] [place] [address] [employer] [facility] Medicine 03/26/24 Code Enforcement Supervisor Relationship Specialty Start Date End Date Remy Perez MD [address] [place] [address] PCP - General Family Medicine 11/15/21 Rupinder Goss APRN.INDUSTRIAL INSULATOR [address] [place] [address] [facility] 03/26/24 Aziza Thompson PA-C [address] [place] [address] [facility] 03/26/24 Code Enforcement Supervisor Relationship Specialty Start Date End Date Remy Perez MD [address] [place] [address] PCP - General Family Medicine 11/15/21 Rupinder Goss APRN.INDUSTRIAL INSULATOR [facility] [place] [address] [facility] 03/26/24 Aziza Thompson PA-C [address] [place] [address] [facility] 03/26/24 Code Enforcement Supervisor Relationship Specialty Start Date End Date Remy Perez MD [address] [place] [address] PCP - General Family Medicine 11/15/21 Rupinder Goss APRN.INDUSTRIAL INSULATOR [address] [place] [address] [facility] 03/26/24 Aziza Thompson PA-C [address] [place] [address] [facility] 03/26/24 Code Enforcement Supervisor Relationship Specialty Start Date End Date Remy Perez MD [address] [place] [address] PCP - General Family Medicine 11/15/21 Rupinder Goss APRN.INDUSTRIAL INSULATOR [address] [place] [address] [facility] 03/26/24 Aziza Thompson PA-C [address] [place] [address] [facility] 03/26/24 Code Enforcement Supervisor Relationship Specialty Start Date End Date Remy Perez MD [address] [place] [address] PCP - General Family Medicine 11/15/21 Rupinder Goss APRN.INDUSTRIAL INSULATOR [address] [place] [address] [facility] 03/26/24 Aziza Thompson PA-C [address] [place] [address] [facility] 03/26/24 Code Enforcement Supervisor Relationship Specialty Start Date End Date Remy Perez MD [address] [place] [address] PCP - General Family Medicine 11/15/21 Rupinder Goss, EVELIN.INDUSTRIAL INSULATOR [address] [place] [address] [facility] 03/26/24 Aziza Thompson PA-C [address] [place] [address] [facility] 03/26/24 Code Enforcement Supervisor Relationship Specialty Start Date End Date Remy Perez MD [address] [place] [address] PCP - General Family Medicine 11/15/21 Rupinder Goss, DESIGN DRAFTSMAN.INDUSTRIAL INSULATOR [address] [place] [address] [facility] 03/26/24 Aziza Thompson PA-C [address] [place] [address] [facility] 03/26/24 Code Enforcement Supervisor Relationship Specialty Start Date End Date Remy Perez MD [address] [place] [address] PCP - General Family Medicine 11/15/21 Rupinder Goss APRN.INDUSTRIAL INSULATOR [address] [place] [address] [facility] 03/26/24 Aziza Thompson PA-C [address] [place] [address] [facility] 03/26/24 Code Enforcement Supervisor Relationship Specialty Start Date End Date Remy Perez MD [address] [place] [address] PCP - General Family Medicine 11/15/21 Rupinder Goss APRN.INDUSTRIAL INSULATOR [address] [place] [address] [facility] 03/26/24 Aziza Thompson PA-C [address] [place] [address] [facility] 03/26/24 Code Enforcement Supervisor Relationship Specialty Start Date End Date Remy Perez MD [address] [place] [address] PCP - General Family Medicine 11/15/21 Rupinder Goss DESIGN DRAFTSMAN.INDUSTRIAL INSULATOR [address] [place] [address] [facility] 03/26/24 Aziza Thompson PA-C [address] [place] [address] [facility] 03/26/24 Code Enforcement Supervisor Relationship Specialty Start Date End Date Remy Perez MD [address] [place] [address] PCP - General Family Medicine 11/15/21 Rupinder Goss APRN.INDUSTRIAL INSULATOR [address] [place] [address] [facility] 03/26/24 Aziza Thompson PA-C [address] [place] [address] [facility] 03/26/24 Code Enforcement Supervisor Relationship Specialty Start Date End Date Remy Perez MD [address] [place] [address] PCP - General Family Medicine 11/15/21 Rupinder Goss APRN.INDUSTRIAL INSULATOR [address] [place] [address] [facility] 03/26/24 Aziza Thompson PA-C [address] [place] [address] [facility] 03/26/24 Code Enforcement Supervisor Relationship Specialty Start Date End Date Remy Perez MD [address] [place] [address] PCP - General Family Medicine 11/15/21 Rupinder Goss APRN.INDUSTRIAL INSULATOR [address] [place] [address] [facility] 03/26/24 Aziza Thompson PA-C [address] [place] [address] [employer] [facility] 03/26/24 Code Enforcement Supervisor Relationship Specialty Start Date End Date Remy Perez MD [address] [place] [address] PCP - General Family Medicine 11/15/21 Rupinder Goss APRN.INDUSTRIAL INSULATOR [address] [place] [address] [facility] 03/26/24 Aziza Thompson PA-C [address] [place] [address] [employer] [facility] 03/26/24 Code Enforcement Supervisor Relationship Specialty Start Date End Date Remy Perez MD [address] [place] [address] PCP - General Family Medicine 11/15/21 Aziza Thompson PA-C [address] [place] [address] [employer] [facility] 03/26/24 Code Enforcement Supervisor Relationship Specialty Start Date End Date Remy Perez MD [address] [place] [address] PCP - General Family Medicine 11/15/21 Aziza Thompson PA-C [address] [place] [address] [employer] [facility] 03/26/24 Team Status: Inactive Member Role Status Dates Dr. Remy Perez MD Primary Care Provider Active Start: September 19, 2024 End: September 19, 2024 Dr. Remy Perez MD Referring Provider Active Start: September 19, 2024 End: September 19, 2024 Dr. Bg Goldstein MD Attending Provider Active Start: September 19, 2024 End: September 19, 2024 Code Enforcement Supervisor Relationship Specialty Start Date End Date Remy Perez MD [address] [place] [address] PCP - General Family Medicine 11/15/21 Rupinder Goss APRN.INDUSTRIAL INSULATOR [address] [place] [address] [facility] 09/19/24 Aziza Thompson PA-C [address] [place] [address] [facility] 09/19/24 Team Status: Inactive Member Role Status Dates Dr. Remy Perez MD Primary Care Provider Active Start: September 19, 2024 End: September 19, 2024 Dr. Bg Goldstein MD Attending Provider Active Start: September 19, 2024 End: September 19, 2024 Dr. Bg oGldstein MD Referring Provider Active Start: September 19, 2024 End: September 19, 2024 Code Enforcement Supervisor Relationship Specialty Start Date End Date eRmy Perez MD [address] [place] [address] PCP - General Family Medicine 11/15/21 Rupinder Goss, DESIGN DRAFTSMAN.INDUSTRIAL INSULATOR [address] [place] [address] [facility] 09/19/24 Aziza Thompson PA-C [address] [place] [address] [facility] 09/19/24 Code Enforcement Supervisor Relationship Specialty Start Date End Date Remy Perez MD [address] [place] [address] PCP - General Family Medicine 11/15/21 Rupinder Goss APRN.INDUSTRIAL INSULATOR [address] [place] [address] [facility] 09/19/24 Aziza Thompson PA-C [address] [place] [address] [facility] 09/19/24 Code Enforcement Supervisor Relationship Specialty Start Date End Date Remy Perez MD [address] [place] [address] PCP - General Family Medicine 11/15/21 Rupinder Goss APRN.INDUSTRIAL INSULATOR [address] [place] [address] [facility] 09/19/24 Aziza Thompson PA-C [facility] [place] [address] [facility] 09/19/24 Code Enforcement Supervisor Relationship Specialty Start Date End Date Remy Perez MD [address] [place] [address] PCP - General Family Medicine 11/15/21 Rupinder Goss APRN.INDUSTRIAL INSULATOR [facility] [place] [address] [facility] 09/19/24 Aziza Thompson PA-C [address] [place] [address] [facility] 09/19/24 INFORMATION SOURCE (unrecogn ized section and content) DATE CREATED AUTHOR 01/20/2022 [facility] DATE CREATED AUTHOR AUTHOR'S ORGANMANISH ATION 10/15/2024 [facility] DATE CREATED AUTHOR AUTHOR'S ORGANIZ ATION 10/19/2024 [facility] FOR RECORDS PERTAINING TO PATIENTS WHO ARE OR HAVE BEEN ENROLLED IN A CHEMICAL DEPENDENCY/SUBSTANCEABUSE PROGRAM, SOME INFORMATION MAY BE OMITTED. This clinical summary was aggregated from multiple sources. Caution should be exercised in using it in the provision of clinical care. This summary normalizes information from multiple sources, and as a consequence, information in this document may materially change the coding, format and clinical context of patient data. In addition, data may be omitted in some cases. CLINICAL DECISIONS SHOULD BE BASED ON THE PRIMARY CLINICAL RECORDS. [employer] [facility]. provides no warranty or guarantee of the accuracy or completeness of information in this document.
--- NOTE | 2024-10-31 15:31 | STRESSREP_ITS ---
Stress Test Report Date: 10/27/2024 Procedure: Exercise tolerance test/imaging study Indications: Arrhythmia Consent: Per the patient Procedure: The patient exercised on a Jay protocol for 9 minutes achieving a peak heart rate of 126 bpm (82% predicted maximal heart rate) with a peak blood pressure 152/74 mmHg and a peak MET capacity of 10.1 METs. The baseline ECG demonstrated sinus rhythm. The peak exercise ECG showed sinus tachycardia with no ischemic changes. There were no cardiac dysrhythmias pretest, during exercise, or recovery. The functional capacity was considered excellent for age. There was no complaint of chest discomfort during exercise or recovery. The examination was discontinued secondary to target heart rate being achieved. The patient was injected with 11.4 mCi of technetium 99m Cardiolite and subsequently rest SPECT Cardiolite nuclear imaging was obtained in the horizontal long, vertical long, and short axis views. Post-exercise, the patient was injected with 31.9 mCi of technetium 99m Cardiolite and subsequently stress SPECT Cardiolite nuclear imaging was obtained in the horizontal long, vertical long, and short axis views. A gated Cardiolite study at peak stress was obtained. Rest and stress SPECT Cardiolite nuclear imaging status post realignment, normalization, and attenuation correction, demonstrates the appearance of relative uniform tracer uptake and myocardial perfusion appearing within normal limits. There is end systolic thickening and brightening. The gated Cardiolite study demonstrates myocardial thickening and inward wall motion. The reported LVEF is 88%. Impression: 1. Technically adequate exercise tolerance test with excellent functional capacity for age 2. Peak exercise ECG with no diagnostic ischemic changes 3. There were no cardiac dysrhythmias pretest, during exercise, or recovery 4. Rest and stress SPECT Cardiolite nuclear imaging demonstrate relative uniform tracer uptake and myocardial perfusion appearing within normal limits. 5. The gated Cardiolite study reports an LVEF of 88%. This note was generated with [employer] software. It may contain incorrect words, spelling, and punctuation that were not noted in checking the note before signing.
== END | disposition home or self-care (01) ==
LOC: CVS 06:43
PROVIDERS: PCP Family Medicine; Referring Provider Internal Medicine Cardiovascular Disease; Visit Provider Internal Medicine Cardiovascular Disease
DX: R00.2 Palpitations (principal); I47.10 Supraventricular tachycardia, unspecified; R06.02 Shortness of breath
CPT/HCPCS: 78452; 93017; 93306; A9500; A4216

== ENCOUNTER 2024-11-08 19:45 | Emergency (ER) | payer MEDICARE, SELFPAY ==
[2024-11-08 19:45] VITALS: BP 170/117; PULSE 84; RESP 20; TEMP 36.6; O2SAT 98; BMI 22.1
[2024-11-08 20:18] LABS: Hematocrit 40.3 % (37-47); Hemoglobin 14.0 g/dL (12.0-15.0); Immature Granulocytes Count 0.020 X10^3/uL (0.0-0.0); Mean Corp Hgb Conc 34.7 g/dL (32-36); Mean Corpuscular Volume 91.2 fL (81-99); NRBC Flagged by Analyzer 0 % (0-5); POSITIVE COUNT YES; RBC Distribution Width CV 12.3 % (11.6-14.6); RBC Distribution Width SD 40.2 fl (35.1-43.9); Red Blood Count 4.42 M/mm3 (4.2-5.4); White Blood Count 7.3 K/mm3 (4.4-11.0)
[2024-11-08 20:25] LABS: Differential Indicated SCAN CRITERIA MET
[2024-11-08 21:05] LABS: AST(SGOT) 49 U/L (<=31); Alanine Aminotransfer ALT/SGPT 48 U/L (<=34); Albumin, Serum 4.7 g/dL (3.4-4.8); Alkaline Phosphatase 71 U/L (35-104); Anion Gap 15 (5-15); BUN 10 mg/dL (4-19); BUN/Creat Ratio 11.0 RATIO (10-20); Calcium,Total 9.8 mg/dL (7.6-11.0); Carbon Dioxide 21.5 mmol/L (21.0-32.0); Chloride 103 mmol/L (98-108); Estimated Creatinine Clearance 47.45 ml/min (50-250); Globulin 3.2 g/dL (2.2-4.2); Glucose 104 mg/dL (70-99); Lipase 42 U/L (13-75); Potassium 4.3 mmol/L (3.3-5.1)
--- NOTE | 2024-11-08 21:16 | CT_ITS ---
PROCEDURE: ABDOMEN/PELVIS W IV CONT ONLY 11/08/2024 REASON FOR EXAM: LOWER ABD PAIN TECHNIQUE: ABDOMEN/PELVIS W IV CONT ONLY Coronal and Sagittal reconstruction series were provided. CONTRAST: Isovue 300 VOLUME: 75 mL One or more dose reduction techniques were used (e.g., Automated exposure control, adjustment of the mA and/or kV according to patient size, use of iterative reconstruction technique. RADIATION DOSE SUMMARY: CTDlvol: 17 mGy DLP: 353 mGycm COMPARISON: 06/29/2022 FINDINGS: Under aerated lung bases. Normal heart size. Unremarkable liver, gallbladder, pancreas, spleen, adrenal glands, kidneys. No hydronephrosis or ureteral stone. Normal bladder. Normal uterus and ovaries. No retroperitoneal or pelvic adenopathy. Small pelvic free fluid. No free air. Nondistended bowel. Normal appendix. Diverticulosis. No acute large bowel findings. Lumbar spine scoliosis and degeneration. No acute abdominal wall findings. CT/Abdomen/Pelvis W IV Cont ONLY IMPRESSION: No acute findings. Reading Location: [place] [address]
--- NOTE | 2024-11-08 21:17 | EDS_ITS ---
HPI HPI - GI History of Present Illness Chief Complaint: Abd Pain Detail of Chief Complaint: Bilateral lower quadrant abdominal pain. Informant: patient Abdominal Pain/Flank Pain Onset: Today and Yesterday Context: Gradual Onset Timing: Continuous Location: RLQ and LLQ Current Severity: Moderate Maximum Severity: Severe Worsened by: Nothing Relieved by: Nothing Nausea/Vomiting/Emesis GI Symptom: Negative for Nausea or Vomiting Diarrhea/Melena/Hematochezia GI Symptom: Negative for Diarrhea, Melena or Hematochezia Associated Symptoms Associated Symptoms: Negative for Dysuria, Frequency, Hematuria or Urgency Narrative Narrative: 68-year-old female history of hypertension and prior irritable bowel. No prior abdominal or pelvic surgeries. States yesterday evening she started having abdominal pain diffuse now it is more lower quadrants. At times radiates into her back. Denies any nausea, vomiting or diarrhea. Denies any fever or chills. Denies any dysuria. Says the pain is constant. She has never had this before. Nothing particular makes it better or worse. Prior similar symptoms: No Recent Illness/Hospitalization: No PFSH PFSH Medical History Generalized anxiety disorder Palpitations Primary insomnia Postoperative hypothyroidism Plantar fasciitis Osteopenia, senile Hypertension, essential Lumbar back pain Hyperlipidemia, mixed Elevated blood sugar Wears glasses Post-menopausal Depression Alcohol use Thyroid disease Restless legs Heartburn Non-smoker Leg cramps Anxiety GERD (gastroesophageal reflux disease) Postoperative primary hypothyroidism Hypernatremia Hypoglycemia Hyperlipidemia Hypertension Headache IBS (irritable bowel syndrome) Breast lump UTI (urinary tract infection) Back pain Seasonal allergies Home Medications Medication Instructions Recorded Last Taken Type cholecalciferol (vitamin D3) 25 25 mcg PO DAILY Unknown History mcg (1,000 unit) capsule diphenhydramine HCl 25 mg tablet 25 mg PO .prn PRN Hea dache 10/25/20 Unknown History (Benadryl Allergy) gabapentin 300 mg capsule 300 mg PO QHS 10/25/20 Unkno wn History levothyroxine 88 mcg tablet 88 mcg PO DAILY 10/25/20 U nknown History trazodone 50 mg tablet 150 mg PO QHS 10/25/20 Unkno wn History alprazolam 0.5 mg tablet (Xanax) 0.5 mg PO .as needed for flying #7 12/14/20 Unknown Rx tabs oxycodone-acetaminophen 5 mg-325 1 tab PO Q8H PRN pain 5 days #14 06/29/22 Unknown Rx mg tablet (Endocet) tabs betamethasone dipropionate 0.05 % 1 applic topical BID PRN 09/15/24 Unknown History topical cream buspirone 5 mg tablet 5 mg PO TID PRN 09/15/24 Unk nown History dicyclomine 10 mg capsule 10 mg PO TID 09/15/24 Unknow n History docosahexaenoic acid PO DAILY 09/15/24 Unknown Hi story losartan 50 mg tablet 50 mg PO QDAY 09/15/24 Unkno wn History [id number] K-lut PO DAILY 09/15/24 Unkno wn History [Multivitamin Women 50 Plus] pravastatin 20 mg tablet 20 mg PO QHS 09/15/24 Unknow n History turmeric PO DAILY 09/15/24 Unknown Hi story metoprolol succinate 25 mg 25 mg PO QDAY #90 tabs 06/14 Unknown Rx tablet,extended release 24 hr Allergy/AdvReac Type Severity Reaction Status Date / Time amoxicillin (From Augmentin) AdvReac Intermediate diarrhea Verified 09/19/24 14:33 clavulanic acid (From AdvReac Intermediate diarrhea Verified 09/19/24 14:33 Augmentin) Family History Grandmother Anxiety Diabetes High cholesterol CVA (cerebral vascular accident) Mother Cancer Father Depression Hypertension Kidney disease Sister Depression Hypertension Brother Depression Aunt Ovarian cancer Grandfather Myocardial infarction Surgical History H/O thyroidectomy H/O spinal fusion H/O shoulder surgery H/O dilation and curettage H/O removal of cyst Social History Smoking Status: Never smoker Electronic Cigarette Use: not used alcohol intake: current alcohol intake frequency: a few times a week substance use type: does not use what type of physical activity do you participate in: walking ROS ROS ED ROS Narrative Lower abdominal pain. No other symptoms. Constitutional Constitutional ED: Denies chills or fever(s) ENT ENT ED: Denies ear pain Cardiovascular Cardiovascular: Denies chest pain Respiratory/Chest Respiratory/Chest: Denies cough Gastrointestinal Gastrointestinal: Reports abdominal pain; Denies constipation, diarrhea, melena, nausea or vomiting Genitourinary Genitourinary ED: Denies dysuria or hematuria Musculoskeletal Musculoskeletal: Denies arthralgias Integumentary Denies abscess Neurologic Neurologic: Denies headache(s) Psychiatric Psychiatric: Denies anxiety Endocrine Endocrinology: Denies polydipsia Hematologic/Lymphatic Hematologic/Lymphatic: Denies easy bleeding Allergic/Immunologic Allergic/Immunologic ED: Denies mouth swelling, tongue swelling or urticaria EXAM Physical Exam Narrative Exam Narrative: 68-year-old female sitting upright in bed. Vital signs stable afebrile. Elevated blood pressure most likely due to pain. H EENT exam pupils round react light. Moist pink members. Neck nontender. Lungs clear to auscultation bilaterally. Heart regular rhythm no murmur rate about 80. Chest wall ribs nontender. Back nontender. Abdomen soft nondistended normal bowel sounds. She does have tenderness in both lower quadrants. No hernia or mass. No obstruction. No pulsatile mass. Moving all 4 extremities. Nontender no edema. Normal range of motion. Normal strength. Neurologically she is awake alert. No focal motor deficits. at bedside. Const Vital Signs: 11/08/24 19:45 Temperature 97.8 F Temperature Source Oral Pulse Rate 84 Respiratory Rate 20 H Blood Pressure 170/117 H Blood Pressure Mean 134 Pulse Ox 98 Oxygen Delivery Method Room Air Positive well nourished and well developed; Negative for obese, cachectic, con tractures or unkempt General Appearance ED: well developed and NAD; Negative for unkempt, cachectic, contractures or pallor Nutritional Appearance: Negative for cachectic or obese HEENT Reports moist mucous membranes normocephalic and atraumatic Eyes PERRL and EOMs intact bilaterally Neck no lymphadenopathy, supple and no JVD Resp normal respiratory effort and clear to auscultation bilaterally Cardio regular rate, regular rhythm, S1 normal heart sound, S2 normal heart sound and no murmurs GI non-distended and no masses; Negative for non-tender GI Narrative: Primarily tender in both lower quadrants. Inspection: Negative for abdominal distention Auscultation: normoactive bowel sounds Palpation: soft and tender; Negative for guarding, rigid, hepatomegaly, splenomegaly, hernia, mass, pulsatile mass or rebound tenderness present Back/Spine no CVA tenderness General Back: Negative for CVA tenderness Cervical Spine: Negative for cervical spine tenderness Thoracic Spine / Upper Back: Negative for thoracic spinal tenderness Lumbar Spine / Lower Back: Negative for lumbar spinal tenderness Extremity full ROM General Extremety ED: Negative for edema or tenderness General Extremity: Negative for edema Neuro CN's II-XII intact bilaterally and moves all extremities Sensorium / Orientation: alert, oriented to person, oriented to place and oriented to time Motor Exam: strength 5/5 throughout; Negative for general weakness or strength abnormal Psych mental status grossly normal and thought process normal Appearance: Negative for unkempt Attitude: No agitated Mood & Affect: Negative for depressed, anxious or tearful Skin no wounds General Skin Exam: Negative for jaundice or pallor Lesions: no lesions Rashes: no rashes Trauma: Negative for abrasion MDM MDM MDM Narrative Medical decision making narrative: 68-year-old female no prior abdominal surgeries abdominal pain since last night worse today primarily lower quadrants differential include acute diverticulitis, appendicitis, UTI, obstruction excetra. CAT scan and labs are being obtained. She was already given morphine and Zofran for pain. She will also be given additional dose of morphine now. History & Record Review Additional record(s) reviewed:: Prior inpatient record, Prior outpatient record, Prior ED visit and Prior labs Lab Data Attestation: I reviewed the patient's lab results. Lab results narrative: CBC normal. White count of 7. H&H 14 and 40. Chemistry shows sodium 139. Gap 15. Normal BUN and creatinine of 10 and 0.9. Glucose 104. Liver enzymes normal except AST of 49. ALT 48. Lipase normal at 42. Labs: Laboratory Results - last 24 hr 11/08/24 19:58 WBC 7.3 RBC 4.42 Hgb 14.0 Hct 40.3 MCV 91.2 MCH 31.7 MCHC 34.7 RDW Std Deviation 40.2 RDW Coeff of Kaitlynn 12.3 Immature Gran % (Auto) 0.300 Neut % (Auto) 68.4 Lymph % (Auto) 20.1 [place] % (Auto) 7.4 Eos % (Auto) 2.7 Baso % (Auto) 1.1 H Absolute Neuts (auto) 5.0 Absolute Lymphs (auto) 1.47 Nucleated RBC % 0 Sodium 139 Potassium 4.3 Chloride 103 Carbon Dioxide 21.5 Anion Gap 15 BUN 10 Creatinine 0.91 Estim Creat Clear Calc 47.45 L Est GFR (MDRD) Non-Af 69 BUN/Creatinine Ratio 11.0 Glucose 104 H Calcium 9.8 Total Bilirubin 0.36 AST 49 H ALT 48 H Alkaline Phosphatase 71 Total Protein 7.8 Albumin 4.7 Globulin 3.2 Albumin/Globulin Ratio 1.5 Lipase 42 Discharge Plan Triage Chief Complaint: Abd Pain ED Provider: Elier Sandoval Dx/Rx/DC Orders Prescriptions: No Action gabapentin 300 mg capsule 300 mg PO QHS trazodone 50 mg tablet 150 mg PO QHS levothyroxine 88 mcg tablet 88 mcg PO DAILY diphenhydramine HCl [Benadryl Allergy] 25 mg tablet 25 mg PO .prn PRN (Reason: Headache) cholecalciferol (vitamin D3) 25 mcg (1,000 unit) capsule 25 mcg PO DAILY alprazolam [Xanax] 0.5 mg tablet 0.5 mg PO .as needed for flying Qty: 7 0RF losartan 50 mg tablet 50 mg PO QDAY pravastatin 20 mg tablet 20 mg PO QHS buspirone 5 mg tablet 5 mg PO TID PRN [id number] K-lut [Multivitamin Women 50 Plus] PO DAILY docosahexaenoic acid PO DAILY turmeric PO DAILY dicyclomine 10 mg capsule 10 mg PO TID betamethasone dipropionate 0.05 % cream 1 applic topical BID PRN metoprolol succinate 25 mg tablet extended release 24 hr 25 mg PO QDAY Qty: 90 3RF oxycodone-acetaminophen [Endocet] 5-325 mg tablet 1 tab PO Q8H PRN (Reason: pain) 5 Days Qty: 14 0RF Primary Care Provider: Remy Stiles Referrals: Remy Stiles MD [Primary Care Provider] - Print Language: Norwegian
[2024-11-08 21:32] LABS: Differential Comment SCANNED
--- OUTSIDE RECORDS SUMMARY | 2024-11-08 21:41 | XMS RPT_ITS | CCD ---
Author Organization [facility] CliniSyar Care Team Providers Care Chainstitch Seat Joiner Name Role Phone LimaClarissa E Unavailable Johann Woodruff Unavailable Carlos Mon Unavailable Unavailable Unavailable Unavailable Christa Hernandes Unavailable Unavailable Jose Rafael Marc Unavailable Valarie Morrison Unavailable Clarissa Amato CNP Unavailable Dr. Johann Woodruff Unavailable Jose Rafael Marc Unavailable Valarie Morrison Unavailable Carlos Mon LPN Unavailable Unavailable Unavailable Unavailable César Simpson Unavailable Anjelica Sanchez Unavailable Dr. Ja Salinas DO Unavailable [phone] Jenn Layne MA Unavailable Unavailable Unavailable Unavailable Nikky Lagunas LPN Unavailable Unavailable Hansela, Clarissa Unavailable Ciesa, Clarissa Unavailable Lima CARDIOPULMONARY TECHNOLOGIST, CARDIOPULMONARY TECHNOLOGIST-C Clarissa Primary Care Provider iLma CARDIOPULMONARY TECHNOLOGIST, CARDIOPULMONARY TECHNOLOGIST-C Clarissa Referring Provider Elenita CARDIOPULMONARY TECHNOLOGIST, CARDIOPULMONARY TECHNOLOGIST-C Krystal Attending Provider Unavailable Primary Care Provider Unavailabl e Sararanjanaalpa Clarissa Unavailable Trisha Lara CNP Unavailable Remy Perez MD Primary Care Provider Remy Perez MD Primary Care Provider Chris HEALY, Remy Yuen Primary Care Provider REMY PEREZ Referring Unavailable CHRIS, REMY A Primary Care Unavailable Chris HEALY, Remy A Primary Care Provider Chris HEALY, Remy Yuen Primary Care Provider Chris HEALY, Remy Yuen Primary Care Provider Unavailable Primary Care Provider Unavailabl e Wolfgang COMMUNICATION ELECTRONIC TECHNICIAN.PATIENT ACCOUNTS COORDINATOR, Rupinder Unavailable Jay VELIZ, Aziza Unavailable Chris HEALY, Dr. Alberto Primary Care Provider Chris HEALY, Dr. Alberto Referring Provider Triston HEALY, Dr. Pederson Attending Provider Wolfgang COMMUNICATION ELECTRONIC TECHNICIAN.PATIENT ACCOUNTS COORDINATOR, Rupinder Unavailable Jay VELIZ, Aziza Unavailable Triston HEALY, Dr. Pederson Referring Provider Triston HEALY, Dr. Pederson Other Provider Triston, Bg Consulting Unavailable Triston, Bg Attending Unavailable Chris, Remy Primary Care Unavailable Triston, Bg Referring Unavailable Chris, Remy Primary Care Unavailable Triston, Bg Attending Unavailable Triston, Bg Referring Unavailable Chris, Remy Primary Care Unavailable Triston, Bg Attending Unavailable Triston, Bg Referring Unavailable Chris, Remy Primary Care Unavailable Chris, Remy Referring Unavailable Triston, Bg Attending Unavailable Chris, Remy Primary Care Unavailable Triston, Bg Attending Unavailable CHRIS, REMY A Primary Care Unavailable THOMPSON, AZIZA Referring Unavailable CHRIS, REMY A Primary Care Unavailable CHRIS, REMY A Attending Unavailable CHRIS, REMY A Primary Care Unavailable THOMPSON, AZIZA Referring Unavailable QUOC MCCRACKEN Attending Unavailable CHRIS, REMY A Primary Care Unavailable CHRIS, REMY A Referring Unavailable CRHIS, REMY A Primary Care Unavailable THOMPSON, AZIZA Referring Unavailable QUOC MCCRACKEN Attending Unavailable CHRIS, REMY A Primary Care Unavailable CHRIS, REMY A Referring Unavailable QUOC MCCRACKEN Attending Unavailable CHRIS, REMY A Primary Care Unavailable JAY, AZIZA Attending Unavailable CHRIS, REMY A Primary Care Unavailable JAY, AZIZA Attending Unavailable CHRIS, REMY A Primary Care Unavailable THOMPSON, AZIZA Attending Unavailable CHRIS, REMY A Primary Care Unavailable THOMPSON, AZIZA Referring Unavailable CHRIS, REMY A Primary Care Unavailable CHRIS, REMY A Primary Care Unavailable THOMPSON, AZIZA Attending Unavailable CHRIS, REMY A Primary Care Unavailable THOMPSON, AZIZA Referring Unavailable CHRIS, REMY A Primary Care Unavailable THOMPSON, AZIZA Attending Unavailable CHRIS, REMY A Primary Care Unavailable THOMPSON, AZIZA Referring Unavailable CHRIS, REMY A Primary Care Unavailable NAWAF, QUOC Referring Unavailable NAWAF, QUOC Attending Unavailable CHRIS, REMY A Primary Care Unavailable THOMPSON, AZIZA Attending Unavailable CHRIS, REMY A Primary Care Unavailable CHRIS, REMY A Referring Unavailable CHRIS, REMY A Primary Care Unavailable JAY, AZIZA Referring Unavailable CHRIS, REMY A Primary Care Unavailable JAY AZIZA Attending Unavailable CHRIS, REMY A Primary Care Unavailable NAWAFQUOC Referring Unavailable NAWAF, QUOC Attending Unavailable CHRIS, REMY A Primary Care Unavailable THOMPSON, AZIZA Referring Unavailable NAWAF, QUOC Attending Unavailable CHRIS, REMY A Primary Care Unavailable CHRIS, REMY A Referring Unavailable NAWAF, QUOC Attending Unavailable CHRIS, REMY A Primary Care Unavailable CHRIS, REMY A Referring Unavailable NAWAF, QUOC Attending Unavailable Allergies Allergy Classification Reported Allergen(s) Allergy Type Date of Onset Reaction(s) Facility Pollen (6 sources) Pollen; Translations: [Pollens] Substance Allergy [facility] Work Phone: (20 sources) Pollen; Translations: [Pollens] Allergy to substance (finding) [facility] Work Phone: (20 sources) Animal Dander; Translations: [Animal Dander] Allergy to substance (finding) [facility] Work Phone: Comment on above: cats (7 sources) Amoxicillin Drug Allergy 2 diarrhea [facility] (7 sources) Clavulanate Drug Allergy 2 diarrhea [facility] (20 sources) Amoxicillin / Clavulanate; Translations: [AMOXICILLIN-PO T CLAVULANATE] Drug Allergy 2 GI Upset [facility] Work Phone: (1 source) Paxlovid *ANTIVIRALS*; Translations: [Paxlovid *ANTIVIRALS*] Allergy to drug (finding) Vomiting [facility]; [facility] Work Phone: (1 source) Amoxicillin Drug Allergy 5 [facility] Repository (1 source) Clavulanate Drug Allergy 5 [facility] Repository Medications Current Medications Medication Drug Class(es) Dates Sig (Normalized) Sig (Original) acetaminophen 325 mg / oxyCODONE hydrochloride 5 mg oral tablet (19 sources) Opioid Agonist Start: 06-29-2022 End: 12-24-2022 take 1 tablet by mouth every eight hours as needed for pain Oxycodone-Acetam inophen (Endocet) 5-325 mg tablet Active 1 {tbl} PO Q8H as needed for pain 14 5 0 June 29, 2022 Contusion of sacrum Contusion of lower back and pelvis, initial encounter Comment on above: Take 1 tablet by ashish th every 8 hours as needed. ALPRAZolam 0.5 mg oral tablet (20 sources) Benzodiazepine Start: 2020 Alprazolam (Xanax) 0.5 mg tablet Active 0.5 mg PO .as needed for flying 7 0 2020 12:00am Start: 06-08-2020 End: 06-18-2021 take [...] ety F41.9 amLODIPine 5 mg oral tablet (9 sources) Dihydropyridine Calcium Channel Michelle Start: 5 take 1 tablet by mouth once [...] until gone. benzonatate 100 mg oral capsule (8 sources) Non-narcotic Antitussive Start: 4 End: take [...] TIMES A DAY as needed for cough 30 0 August 11, 2021 12:00am September 15, 2024 6:21pm Cough Cough, unspecified betamethasone 0.5 mg/ml topical cream (20 sources) [...] twice daily. Take 1 capsule by mo ut two times a day for 7 days. cholecalciferol 0.025 mg oral capsule (7 sources) Vitamin D Start: 2020 take 1 capsule by mouth once daily Cholecalciferol (Vitamin D3) 25 mcg (1,000 unit) capsule Active 25 ug PO DAILY October 25, 2020 12:00am dicyclomine hydrochloride 10 mg oral capsule (20 sources) Anticholinergic Start: 2022 End: 2023 take 1 capsule by mouth three times daily Dicyclomine 10 mg capsule Active 10 mg PO THREE TIMES A DAY September 15, 2024 12:00am Comment on above: Take 1 capsule by [facility] before meals and at bedtime. diphenhydrAMINE hydrochloride 25 mg oral tablet (7 sources) Histamine-1 Receptor Antagonist Start: 2020 Diphenhydramine Hcl (Benadryl Allergy) 25 mg tablet Active 25 mg PO .prn as needed for Headache October 25, 2020 12:00am Docosahexaenoate (3 sources) Start: 2024 docosahexaenoic acid Active PO [...] Quantity: 14 {Tablet} Refills: 0 Ordered: 03-May-2021 SaraClarissa funk Start : 03-May-2021 End : 10-May-2021 Inactive [...] provided with radiology test) (1 source) Start: 3 End: 3 enteric contrast (will be provided with radiology [...] oral capsule (20 sources) Anti-epileptic Agent Start: 2 End: take 1 capsule by mouth once daily, then take 1 capsule by mouth once daily gabapentin (NEURONTIN) 300 mg capsule Take 1 capsule by mouth once daily for 180 days. Take one tablet daily 90 capsule 1 01/02/2022 06/30/2022 Discontinued Start: 05-16-2021 take 1 capsule by [facility] once daily at bedtime Gabapentin 300 MG Oral Capsule 1 (one) Capsule QHS for 0 days Quantity: 90 {Capsule} Refills: 0 Ordered: 16-May-2021 Clarissa Amato CNP, CNP, Mary E Start : 16-May-2021 Active Comments: ninetyOarrs run G25.81 Restless legs Start: 10-25-2020 End: 03-14-2025 take 1 capsule by mouth twice daily gabapentin (NEURONTIN) 300 mg capsule Take 1 capsule by mouth two times a day for 180 days. 180 capsule 1 09/15/2024 03/14/2025 Active Start: 01-13-2020 End: 11-22-2021 take 300 [...] one tablet daily Take 1 capsule by [facility] once daily for 180 days. Take one tablet daily Take 1 capsule by [facility] twice daily for 180 days. Take one tablet daily Take 1 capsule by [facility] twice daily for 180 days. Take 1 capsule by [facility] two times a day for 180 [...] take 1 tablet by mouth once daily Levothyroxine 88 mcg tablet Active 88 ug PO DAILY October 25, 2020 12:00am Comment on above: Take 88 mcg by [...] 09-28-2024 take 1 tablet by mouth once daily Losartan 25 mg tablet Discontinued 25 mg PO DAILY 16 09June 26, 2021 5:45pm September 15, 2024 6:16pm Comment on above: per Dr. Simpson Take 25 mg by mouth once daily. Take one tablet daily Take 1 tablet by ashish th once daily. Take one tablet daily 24 hr metoprolol succinate 25 mg extended release oral tablet (11 sources) beta-Adrenergic Michelle Start: 09-19-2024 End: 10-14-2024 take 0.5 tablet by mouth once daily metoprolol succinate ER (TOPROL XL) 25 mg 24 hr tablet Take 0.5 tablets by mouth once daily. 90 tablet 10/14/2024 Active multivit with minerals/lutein (MULTIVITAMIN 50 PLUS ORAL) (20 sources) multivit with minerals/lutein (MULTIVITAMIN 50 PLUS ORAL) Take by mouth once daily. Active [id number] it K-lut (Multivitamin Women 50 Plus) (3 sources) Start: 09-15-2024 [id number] A-vit K-lut (Multivitamin Women 50 Plus) Active PO DAILY September 15, 2024 12:00am polyethylene glycol 3350 097524 mg / potassium chloride 2970 mg / sodium bicarbonate 6740 mg / sodium chloride 5860 mg / sodium sulfate 42746 mg powder for oral solution (2 sources) [...] End: 5 take 1 tablet by mouth at bedtime Pravastatin 20 mg tablet Active 20 mg PO AT BEDTIME September 15, 2024 12:00am Start: 06-30-2022 End: 06-26-2023 take 1 tablet by mouth once daily at bedtime pravastatin (PRAVACHOL) 20 mg tablet Take 1 tablet by mouth daily at bedtime. 90 tablet 1 06/30/2022 11/28/2022 Discontinued Comment on above: Take 1 tablet by ashish daily at bedtime. rosuvastatin calcium 20 mg oral tablet (9 sources) HMG-CoA Reductase Inhibitor Start: 5 End: 5 take 1 tablet by mouth once daily at bedtime rosuvastatin (CRESTOR) 20 mg tablet Take 1 tablet by mouth daily at bedtime. 30 tablet 1 09/28/2024 Active traZODone hydrochloride 150 mg oral tablet (20 sources) Serotonin Reuptake Inhibitor Start: take 150 mg by mouth at bedtime Trazodone Active 150 MG PO AT BEDTIME October 25, 2020 12:00am Start: 08-31-2020 take 3 tablets by mo ut at bedtime Trazodone 50 mg tablet Active 150 mg PO AT BEDTIME October 25, 2020 12:00am Start: 06-15-2020 take 3 tablets by mo uth once daily at bedtime traZODone HCl 50 MG Oral Tablet 3 (three) Tablet QHS for 90 days Quantity: 270 {Tablet} Refills: 0 Ordered: 15-Jun-2020 Clarissa Amato CNP, CNP, Mary E Start : 15-Jun-2020 Active Comments: Oarrs run Insomnia Start: 01-17-2020 take 3 tablets by mo uth once daily at bedtime traZODone HCl 50 MG Oral Tablet 3 (three) Tablet QHS for 90 days Quantity: 270 {Tablet} Refills: 0 Ordered: 28-Feb-2020 Clarissa Amato CNP, CNP, Mary E Start : 28-Feb-2020 Active Comments: Oarrs run Insomnia Start: 01-13-2020 End: 09-14-2024 take 1 tablet by mouth once daily at bedtime traZODone (DESYREL) 150 mg tablet Take 1 tablet by mouth daily at bedtime. 90 tablet 1 09/15/2024 Active Comment on above: Oarrs run Insomnia Take 150 mg by mouth daily at bedtime. Take 1 tablet by ashish th daily at bedtime. Turmeric extract (20 sources) [...] by mouth. As ne eded for pain [id number] 200 actuat albuterol 0.09 mg/actuat metered dose [...] 28-Feb-2020 Active amoxicillin 875 mg oral tablet (7 sources) Penicillin-class Antibacterial Start: 08-11-2021 End: 08-16-2021 take 1 tablet by mouth every twelve hours Amoxicillin 875 mg tablet Discontinued 875 mg PO Q12H 10 5 0 August 11, 2021 12:00am August 15, 2021 12:00am August 16, 2021 12:04am Sinusitis Acute sinusitis, unspecified baclofen 10 mg oral tablet (20 sources) gamma-Aminobutyric Acid-ergic Agonist Start: 02-13-2022 End: 12-24-2022 take 1 tablet by mouth every eight hours as needed baclofen (LIORESAL) 10 mg tablet Take 1 tablet by mouth three times daily as needed (muscle spasms). 30 tablet 02/13/2022 12/24/2022 Discontinued Comment on above: Take 1 tablet by ashish th three times daily as needed (muscle spasms). [...] (20 sources) Muscle Relaxant Start: 09-28-2024 End: 10-14-2024 take 1 tablet by mouth every eight [...] Quantity: 30 {Tablet} Refills: 0 Ordered: 18-Jun-2021 Clarissa Amato Start : 18-Jun-2021 Active Comment on above: [...] Quantity: 1 {Tube} Refills: 0 Ordered: 17-Jan-2020 Clarissa Amato Start : 17-Jan-2020 Active Estrogen Cream (20 [...] Relief 50 MCG/ACT Nasal Suspension 2 (two) [place] puffs daily for 0 days Quantity: 1 {Each} Refills: 0 Ordered: 03-May-2021 Bebo PULIDONikky Start : 03-May-2021 Active ketorolac tromethamine 10 [...] Quantity: 30 {Tablet} Refills: 0 Ordered: 13-Jan-2020 Lima MOLINA, Clarissa Amato CNP, Clarissa Zapata Start : 13-Jan-2020 Active Magnesium (20 sources) [...] oral tablet (20 sources) Opioid Agonist Start: End: 3 take 1 tablet by mouth [...] by ashish th every 8 hours as needed for pain. Problems Active Problems Problem Classification Problem Date Documented Da te Episodic/Chronic Abdominal pain (1 source) Finding of sensation of abdomen; Translations: [Unspecified abdominal pain] 01-29-2023 Episodic Administrative/social admission (20 sources) Advance directive discussed with patient; Translations: [Other specified counseling] Onset: 4 07-23-2023 Episodic Anxiety disorders (20 sources) Mixed anxiety and depressive disorder; Translations: [Anxiety and depression] Onset: 5 06-08-2020 Chronic Cardiac dysrhythmias (6 sources) Supraventricular tachycardia; Translations: [Supraventricular tachycardia] 09-19-2024 Chronic Cardiac dysrhythmias (14 sources) Palpitations; Translations: [Palpitations] Onset: 5 08-08-2024 Episodic Complications of surgical procedures or medical care (20 sources) Postoperative hypothyroidism; Translations: [Postprocedural hypothyroidism] Onset: 2 11-01-2021 Chronic Disorders of lipid metabolism (20 sources) Hyperlipidemia; Translations: [Hyperlipidemia] Onset: 3 02-28-2020 Chronic Diverticulosis and diverticulitis (1 source) Diverticular disease; Translations: [Diverticulosis of intestine, part unspecified, without perforation or abscess without bleeding] 01-29-2023 Chronic Esophageal disorders (7 sources) Gastroesophageal reflux disease; Translations: [Gastro-esophageal reflux disease without esophagitis] 12-17-2020 Chronic Essential hypertension (20 sources) Hypertensive disorder; Translations: [Hypertension] Onset: 2 01-17-2020 Chronic Fever of unknown origin (16 sources) Fever; Translations: [Fever] 01-11-2021 Episodic Fluid and electrolyte disorders (20 sources) Hypernatremia; Translations: [Hypernatremia] 09-21-2020 Episodic Genitourinary symptoms and ill-defined conditions (1 source) Microscopic hematuria; Translations: [Other microscopic hematuria] Episodic Headache; including migraine (7 sources) Headache; Translations: [Headache] 10-20-2021 Episodic Joint disorders and dislocations; trauma-related (1 source) Dislocation of shoulder joint; Translations: [Unspecified dislocation of right shoulder joint, subsequent encounter] Episodic Malaise and fatigue (20 sources) Fatigue; Translations: [Fatigue] 09-18-2020 Episodic Miscellaneous mental health disorders (20 sources) Primary insomnia; Translations: [Primary insomnia] Onset: 2 11-01-2021 Chronic Nausea and vomiting (7 sources) Vomiting; Translations: [Vomiting, unspecified] 10-20-2021 Episodic [...] left hip] Episodic Other connective tissue disease (4 sources) Cramp; Translations: [Cramp and spasm] 08-25-2024 Episodic Other connective tissue disease (1 source) Cramp and spasm; Translations: [Muscle cramp] Onset: 5 Episodic Other gastrointestinal disorders (7 sources) Irritable bowel syndrome; Translations: [Irritable bowel [...] in Has had Upper GI Normal on 52-22-01Htxq esophagus (barium swallow) with fluroscopy, Normal no stricture done on 03-07-2020, consider CT of soft tissue Other injuries and conditions due to external causes (3 sources) Closed injury of head; Translations: [Unspecified injury of head, initial encounter] 07-07-2022 Episodic Other injuries and conditions due to external causes (1 source) Other specified injuries of thorax, initial encounter; Translations: [Contusion of rib on right side] 07-07-2022 Episodic Other lower respiratory disease (20 sources) Cough; Translations: [Cough] 02-28-2020 Episodic Comment on above: asthma as a child asthma as a child, l isinopril DCed Other lower respiratory disease (1 source) Rib pain; Translations: [Pleurodynia] 06-29-2022 Episodic Other lower respiratory disease (1 source) Cough; Translations: [Acute cough] 03-10-2024 Episodic Other lower respiratory disease (2 sources) Dyspnea; Translations: [Shortness of breath] 09-20-2024 Episodic Other lower respiratory disease (1 source) Shortness of breath; Translations: [Shortness of breath] Onset: Episodic Other nervous system disorders (2 sources) Other chronic pain; Translations: [Chronic left hip pain] Onset: Chronic Other nervous system disorders (1 source) [...] rhinitis] 05-03-2021 Chronic Other upper respiratory disease (7 sources) Seasonal allergy; Translations: [Other seasonal allergic [...] Translations: [Peripheral vascular disease, unspecified] Onset: 5 04-21-2025 Chronic Residual codes; unclassified (20 sources) Insomnia; Translations: [Insomnia] 01-17-2020 Episodic Residual codes; unclassified (20 sources) History of thyroidectomy; Translations: [H/O thyroidectomy] 01-17-2020 Episodic Comment on above: from enlarging goite r that affected swallowing and airway October 2018 , labs done in [place] August 2019 Residual codes; unclassified (17 sources) [...] 2 Resolved: 2 Chronic Superficial injury; contusion (12 sources) Contusion of sacral region; Translations: [Contusion [...] (13 sources) Heel pain, chronic, left Unclassified (2 sources) Supraventricular tachycardia, unspecified; Translations: [Supraventricular tachycardia, unspecified] Onset: 5 Unclassified (1 source) Lumbar back pain; Translations: [Lumbar back pain] Onset: 3 Unclassified (1 source) Chronic midline low back pain without sciatica; Translations: [Chronic midline low back pain without sciatica] Onset: 4 Viral infection (7 sources) Disease caused by 2019-nCoV; Translations: [COVID-19] 10-12-2021 Episodic Past or Other Problems Problem Classification Problem Date Documented Date Episodic/Chronic Diabetes mellitus without complication (20 sources) Hyperglycemia; [...] right foot; Translations: [Plantar fascial fibromatosis] Onset: 07-18-2024 05-26-2024 Episodic Other connective tissue disease (20 sources) Plantar fasciitis; Translations: [Plantar fascial fibromatosis] Onset: 06-02-2024 06-02-2024 Episodic Other connective tissue disease (2 sources) Plantar fascial fibromatosis; Translations: [Plantar fasciitis of right foot] Onset: 06-02-2024 Episodic Other infections; including parasitic (20 [...] Test Name Value Interpretation Reference Range Facility Cardiovascular stress test r eportOrdered By: Bg Goldstein on 10-31-2024 Study report [facility] [place] [address] MR#: [id number] Acct: [id number] Name: MICHAEL VELAZQUEZ Rep #: [id number] : 1955 68 From: Bg Goldstein MD Primary Care: Dr. Remy Perez MD Stat us: REG CLI Referring Dr: Bg Goldstein MD Sex: F C Stress Test Report Date: 10/27/2024 Procedure: Exercise tolerance test/imaging study Indications: Arrhythmia Consent: Per the patient Procedure: The patient exercised on a Jay protocol for 9 minutes achieving a peak heart rate of 126 bpm (82% predicted maximal heart rate) with a peak blood pressure 152/74 mmHg and a peak MET capacity of 10.1 METs. The baseline ECG demonstrated sinus rhythm. The peak exercise ECG showed sinus tachycardia with no ischemic changes. There were no cardiac dysrhythmias pretest, during exercise, or recovery. The functional capacity was considered excellent for age. There was no complaint of chest discomfort during exercise or recovery. The examination was discontinued secondary to target heart rate being achieved. The patient was injected with 11.4 mCi of technetium 99m Cardiolite and subsequently rest SPECT Cardiolite nuclear imaging was obtained in the horizontal long, vertical long, and short axis views. Post-exercise, the patientwas injected with 31.9 mCi of technetium 99m Cardiolite and subsequently stress SPECT Cardiolite nuclear imaging was obtained in the horizontal long, vertical long, and short axis views. A gated Cardiolite study at peak stress was obtained. Rest and stress SPECT Cardiolite nuclear imaging status post realignment, normalization, and attenuation correction, demonstrates the appearance of relative uniform tracer uptake and myocardial perfusion appearing within normal limits. There is end systolic thickening and brightening. The gated Cardiolitestudy demonstrates myocardial thickening and inward wall motion. The reported LVEF is 88%. Impression: 1. Technically adequate exercise tolerance test with excellent functional capacity for age 2. Peak exercise ECG with no diagnostic ischemic changes 3. There were no cardiac dysrhythmias pretest, during exercise, or recovery 4. Rest and stress SPECT Cardiolite nuclear imaging demonstrate relative uniform tracer uptake and myocardial perfusion appearing within normal limits. 5. The gated Cardiolite study reports an LVEF of 88%. This note was generated with Litheraation software. It may contain incorrectwords, spelling, and punctuation that were not noted in checking the note beforesigning. 10/31/24 1533 Date _ Bg Goldstein MD CC: Dr. Bg Goldstein MD; Dr. Remy Perez MD ~ Date Dictated: 10/31/241530 Date Transcribed: 10/31/241530 Tank Tender: RAFAELA Seals [facility] Work Phone: Echocardiogram study reportO rdered By: Bg Goldstein on 10-31-2024 Study report [facility] [address] [place] [address] Echo Complete 10/26/242103 MR#: [id number] Acct: [id number] Name: MICHAEL VELAZQUEZ Rep #:[id number] : [id number] 68 From: Bg Goldstein MD Attending Dr: Dr. Bg Goldstein MD Status: REG CLI Ordering Dr: Bg Goldstein MD Date: Location: [facility] Sex: F C Admitted: Reason For Study Reason For Study: Palpitations Procedure This was a 2D Doppler, Color Flow transthoracic echocardiogram. Myocardial strain analysis was performed in this exam to aid in the assessment of cardiac function. Exam performed in department. Left Ventricle Normal size and thickness. The global longitudinal strain = -21.3 % (normal). The LV ejection fraction is 65 %. Normal diastololic function. Right Ventricle Normal right ventricle. Atria The left and right atria are normal. Mitral Valve Mild (1+) mitral valve insufficiency. Tricuspid Valve Mild tricuspid valve insufficiency. Normal pulmonary artery pressure. Aortic Valve Trisinus/trileaflet aortic valve. Pulmonic Valve The pulmonic valve is not well visualized. Trivial pulmonic valve insufficiency. Great Vessels Normal sized aortic root. Pericardium/Pleural No pericardial effusion. MMode/2D Measurements & Calculations LVIDd: 4.2 cm IVSd: 1.0 cm Ao root diam: 3.3 cm LVIDs: 2.7 cm LVPWd: 0.91 cm RVDd: 3.2 cm FS: 35.6 % LAV(MOD-bp): 34.6 ml LVAd ap4: 22.2 cm2 SV(MOD-sp4): 41.3 ml LAV(MOD-bp) Indexed: 22.7 ml/m2 LVLd ap4: 6.9 cm SI(MOD-sp4): 27.0 ml/m2 LAV(MOD-sp2): 33.9 ml EDV(MOD-sp4): 60.1 ml LAV(MOD-sp4): 33.0 ml EDV(sp4-el): 60.8 ml LVAs ap4: 11.1 cm2 LVLs ap4: 5.7 cm ESV(MOD-sp4): 18.8 ml ESV(sp4-el): 18.4 ml EF(MOD-sp4): 68.7 % EF(sp4-el): 69.8 % SV(sp4-el): 42.4 ml LA A4 area: 14.1 cm2 LA dimension(2D): 3.4 cm RA A4 area: 14.5 cm2 TAPSE: 1.9 cm Time Measurements MV dec time: 0.18 sec Doppler Measurements & Calculations MV E max tez: 85.2 cm/sec Lat Peak E' Tez: 9.8 cm/sec Med Peak E' Tez: 6.7 cm/sec MV A max tez: 70.8 cm/sec E/E' lat: 8.7 E/E' med: 12.8 MV E/A: 1.2 MV V2 max: 108.1 cm/sec MV P1/2t max tez: 108.1 cm/sec Ao V2 max: 118.2 cm/sec MV max P.7 mmHg MV P1/2t: 70.1 msec Ao max P.6 mmHg MV V2 mean: 51.3 cm/sec Ao V2 mean: 83.5 cm/sec MV mean P.3 mmHg MV dec slope: 451.6 cm/sec2 Ao mean P.2 mmHg MV V2 VTI: 37.7 cm MVA(P1/2t): 3.1 cm2 Ao V2 VTI: 29.4 cm AV (velocity ratio): 0.88 LV V1 max: 104.7 cm/sec PA V2 max: 66.9 cm/sec LV V1 max P.4 mmHg PI dec slope: 187.5 cm/sec2 LV V1 mean P.1 mmHg LV V1 mean: 67.8 cm/sec LV V1 VTI: 25.9 cm TR max tez: 246.6 cm/sec TR max P.3 mmHg ECHO/Echo Complete Interpretation Summary The LV ejection fraction is 65 %. Mild (1+) mitral valve insufficiency. Mild tricuspid valve insufficiency. Ordering Physician: Bg Goldstein Referring Physician: Bg Goldstein Performed By: Brayden Marshall RCS 10/31/241044 Date _ Bg Goldstein MD CC: Dr. Bg Goldstein MD; Dr. Remy Perez MD ~ Date Dictated: 10/26/242103 Date Transcribed: 10/31/24 1045 Tank Tender: Signed [facility] Work Phone: Stress Reporton 10-31-2024 Stress Report [facility] [address] [place] [address] MR#: [id number] Acct: [id number] Name: MICHAEL VELAZQUEZ Rep #: [id number] : 1955 68 From: Bg Goldstein MD Primary Care: Dr. Remy Perez MD Status: REG CLI Referring Dr: Bg Goldstein MD Sex: F C Stress Test Report Date: 10/27/2024 Procedure: Exercise tolerance test/imaging study Indications: Arrhythmia Consent: Per the patient Procedure: The patient exercised on a Jay protocol for 9 minutes achieving a peak heart rate of 126 bpm (82% predicted maximal heart rate) with a peak blood pressure 152/74 mmHg and a peak MET capacity of 10.1 METs. The baseline ECG demonstrated sinus rhythm. The peak exercise ECG showed sinus tachycardia with no ischemic changes. There were no cardiac dysrhythmias pretest, during exercise, or recovery. The functional capacity was considered excellent for age. There was no complaint of chest discomfort during exercise or recovery. The examination was discontinued secondary to target heart rate being achieved. The patient was injected with 11.4 mCi of technetium 99m Cardiolite and subsequently rest SPECT Cardiolite nuclear imaging was obtained in the horizontal long, vertical long, and short axis views. Post-exercise, the patient was injected with 31.9 mCi of technetium 99m Cardiolite and subsequently stress SPECT Cardiolite nuclear imaging was obtained in the horizontal long, vertical long, and short axis views. A gated Cardiolite study at peak stress was obtained. Rest and stress SPECT Cardiolite nuclear imaging status post realignment, normalization, and attenuation correction, demonstrates the appearance of relative uniform tracer uptake and myocardial perfusion appearing within normal limits. There is end systolic thickening and brightening. The gated Cardiolite study demonstrates myocardial thickening and inward wall motion. The reported LVEF is 88%. Impression: 1. Technically adequate exercise tolerance test with excellent functional capacity for age 2. Peak exercise ECG with no diagnostic ischemic changes 3. There were no cardiac dysrhythmias pretest, during exercise, or recovery 4. Rest and stress SPECT Cardiolite nuclear imaging demonstrate relative uniform tracer uptake and myocardial perfusion appearing within normal limits. 5. The gated Cardiolite study reports an LVEF of 88%. This note was generated with Litheraation software. It may contain incorrect words, spelling, and punctuation that were not noted in checking the note before signing. 10/31/24 1533 Date Bg Goldstein MD CC: Dr. Bg Goldstein MD; Dr. Remy Perez MD Date Dictated: 10/31/241530 Date Transcribed: 10/31/241530 Tank Tender: RAFAELA Signed Normal [facility] Echo Completeon 10-27-2024 Echo Complete [facility] [address] [place] [address] Echo Complete 10/26/242103 MR#: [id number] Acct: [id number] Name: MICHAEL VELAZQUEZ Rep #: [id number] : 1955 68 From: Bg Goldstein MD Attending Dr: Dr. Bg Goldstein MD Status: REG CLI Ordering Dr: Bg Goldstein MD Date: 10/27/24 Location: [facility] Sex: F C Admitted: Reason For Study Reason For Study: Palpitations Procedure This was a 2D Doppler, Color Flow transthoracic echocardiogram. Myocardial strain analysis was performed in this exam to aid in the assessment of cardiac function. Exam performed in department. Left Ventricle Normal size and thickness. The global longitudinal strain = -21.3 % (normal). The LV ejection fraction is 65 %. Normal diastololic function. Right Ventricle Normal right ventricle. Atria The left and right atria are normal. Mitral Valve Mild (1+) mitral valve insufficiency. Tricuspid Valve Mild tricuspid valve insufficiency. Normal pulmonary artery pressure. Aortic Valve Trisinus/trileaflet aortic valve. Pulmonic Valve The pulmonic valve is not well visualized. Trivial pulmonic valve insufficiency. Great Vessels Normal sized aortic root. Pericardium/Pleural No pericardial effusion. MMode/2D Measurements Calculations LVIDd: 4.2 cm IVSd: 1.0 cm Ao root diam: 3.3 cm LVIDs: 2.7 cm LVPWd: 0.91 cm RVDd: 3.2 cm FS: 35.6 % LAV(MOD-bp): 34.6 ml LVAd ap4: 22.2 cm2 SV(MOD-sp4): 41.3 ml LAV(MOD-bp) Indexed: 22.7 ml/m2 LVLd ap4: 6.9 cm SI(MOD-sp4): 27.0 ml/m2 LAV(MOD-sp2): 33.9 ml EDV(MOD-sp4): 60.1 ml LAV(MOD-sp4): 33.0 ml EDV(sp4-el): 60.8 ml LVAs ap4: 11.1 cm2 LVLs ap4: 5.7 cm ESV(MOD-sp4): 18.8 ml ESV(sp4-el): 18.4 ml EF(MOD-sp4): 68.7 % EF(sp4-el): 69.8 % SV(sp4-el): 42.4 ml LA A4 area: 14.1 cm2 LA dimension(2D): 3.4 cm RA A4 area: 14.5 cm2 TAPSE: 1.9 cm Time Measurements MV dec time: 0.18 sec Doppler Measurements Calculations MV E max tez: 85.2 cm/sec Lat Peak E' Tez: 9.8 cm/sec Med Peak E' Tez: 6.7 cm/sec MV A max tez: 70.8 cm/sec E/E' lat: 8.7 E/E' med: 12.8 MV E/A: 1.2 MV V2 max: 108.1 cm/sec MV P1/2t max tez: 108.1 cm/sec Ao V2 max: 118.2 cm/sec MV max P.7 mmHg MV P1/2t: 70.1 msec Ao max P.6 mmHg MV V2 mean: 51.3 cm/sec Ao V2 mean: 83.5 cm/sec MV mean P.3 mmHg MV dec slope: 451.6 cm/sec2 Ao mean P.2 mmHg MV V2 VTI: 37.7 cm MVA(P1/2t): 3.1 cm2 Ao V2 VTI: 29.4 cm AV (velocity ratio): 0.88 LV V1 max: 104.7 cm/sec PA V2 max: 66.9 cm/sec LV V1 max P.4 mmHg PI dec slope: 187.5 cm/sec2 LV V1 mean P.1 mmHg LV V1 mean: 67.8 cm/sec LV V1 VTI: 25.9 cm TR max tez: 246.6 cm/sec TR max P.3 mmHg ECHO/Echo Complete Interpretation Summary The LV ejection fraction is 65 %. Mild (1+) mitral valve insufficiency. Mild tricuspid valve insufficiency. Ordering Physician: Bg Goldstein Referring Physician: Bg Goldstein Performed By: Brayden Marshall RCS 10/31/241044 Date Bg Goldstein MD CC: Dr. Bg Goldstein MD; Dr. Remy Perez MD Date Dictated: 10/26/242103 Date Transcribed: 10/31/241044 Tank Tender: [facility] Office Visit (FAMPWS ) MICHAEL VELAZQUEZ ([id number]) 1955 F Date Time Provider Department 10/14/24 11:40 AM AZIZA THOMPSON During your visit today, we recorded the following information about you: Temperature Pulse Respiration Blood pressure 98.4 degrees 53/minute 16/minute 112/78 Weight 53.1 kg Aziza Thompson PA-C 10/14/2024 12:04 PM Signed Chief Complaint Patient presents with: Recheck: Follow up medication HPI Mcihael Velazquez is a 68 year old female who presents here today for recheck. Hypertension: - Recently switched from losartan to amlodipine; Michael reports improved BP control. Bradycardia: - Noted HR in the 40s with associated fatigue. - Report Programmer agreed with halving the beta-michelle dose to 12.5 mg, resulting in improved HR. - Scheduled for an echocardiogram and stress test in the next few weeks. - Still experiencing occasional palpitations. Leg Cramps: - Persistent leg cramps, particularly in the right foot, noted upon waking and stretching. - Flexeril provides some relief but causes significant grogginess and depressive symptoms. - Recent shadowgraph operator visit ruled out stump neuromas; shadowgraph operator suggested possible nerve involvement. - Michael is taking gabapentin 300 mg, previously BID, [...] Team Chronic (more content not included)... Normal [facility] CNTHERAPYon 10-07-2024 CNTHERAPY OT/PT/Speech Visit ( PTWS) MICHAEL VELAZQUEZ ([id number]) 1955 F Date Time Provider Department 10/07/24 2:15 PM QUOC MCCRACKEN PTWS Date Time Provider Department Center 10/07/2024 2:15 PM [id number], COREY PTWS Sonido Ventura Reason for Visit: [...] Apply to affected area twice daily. [facility] CAROLINE,MICHAEL ([id number]) 1955 F Date Time Provider Department 09/28/24 11:40 AM [facility] During your visit today, we recorded the following information about you: Temperature Pulse Respiration Blood pressure 98.4 degrees 44/minute 16/minute 120/86 Weight 53.1 kg Aziza Thompson PA-C 09/28/2024 1:04 PM Signed Chief Complaint Patient presents with: Follow Up: Leg cramps HPI Michael Greenetinger is a 68 year old female [...] a role. She will be seeing her shadowgraph operator next week to evaluate further. She has [...] Diabetes Screeni (more content not included)... Normal [facility] PVR ANK PRESS W/EXC [facility] 09-21-2024 PVR ANK PRESS W/EXC [facility] Non-Invasive Vascular Laboratory [facility] Lower Extremity Arterial Physiology Study Bilateral/Complete Date of service/time: 09/21/2024 8:39:38 AM Name: MICHAEL VELAZQUEZ Date of : 1955 Age: 68 [...] Left Pressures and Waveform Ankle: 166 mmHg OKREY: 1.23 Ankle waveform: Normal. IMPRESSION RIGHT SIDE [...] ankle-brachial index with exercise. Technologist: Valarie Gaming RVT Ordering physician: AZIZA THOMPSON Interpreting physician: Lance Lee MD, ANILA Final CC [employer] Medical Image : [id number] See Link below for Image Normal [facility] TSH SerPl-aCncon 09-20-2024 TSH Qn 5.240 m[IU]/L High 0.270-4.20 0 [facility] Comment on above: Order Comment: Speci men Type: BLOOD SPECIMENOrdering Facility: [facility] Address: [address] [place] [address] Performed By: #### 3 016-3 ####[facility] LABCLIA [id number] [address] Cardiology Visit Reporton Cardiology Visit Report [facility] [address] [place], [place] [id number] OFFICE VISIT Date of Service: 09/19/24 MR#: [id number] Acct: [id number] Name: MICHAEL VELAZQUEZ Rep #: [id number] : 1955 Provider: Dr. Bg Goldstein MD Age/Sex: 68/F Location: [facility] Status: Signed HPI HPI History of Present [...] year or so. She feels her heart "fluttering" for a few seconds at most. Occasionally [...] Pulse Source NIBP Intake Visit Reasons: SVT (CHRIS) School Bus Operator Required: No Accompanied by: Is patient in [...] mg PO QDAY 09/15/24 09/19/24 Hi story qwbljdcp-peb-vwre-FA-vit K-lut PO DAILY 09/15/24 09/19/24 History [Multivitamin [...] weight gain (more content not included)... Normal [facility] Magnesiumon 09-19-2024 Magnesium [Mass/Vol] 2.4 mg/dL High 1.5-2.2 [facility] Comment on above: Performed By: #### L 501.5200, L501.9520 #### [facility] Laboratory [address] [place], [address] Magnesium measurement (mass/ volume)Ordered By: Bg Goldstein on 09-19-2024 Magnesium (Unsp spec) [Mass/Vol] 2.4 mg/dL High 1.5-2.2 [facility] TSH (EXTERNAL)on 09-19-2024 Interpretation and review of laboratory results Abnormal [facility] TSH Qn 5.24 m[IU]/L Abnormal [facility] TSH DL <= 0.005 mIU/L QnOrde red By: Bg Goldstein on 09-19-2024 TSH Qn 5.240 uIU/mL High 0.300-4.20 0 [facility] Thyroid Stim Hormone (TSH)on 09-19-2024 TSH 5.240 uIU/mL High 0.300-4.20 0 [facility] Comment on above: Performed By: #### L 501.5200, L501.9520 #### [facility] [address] [place], [address] CNOVon 08-25-2024 CNOV Office Visit (FAMPWS ) MICHAEL VELAZQUEZ ([id number]) 1955 F Date Time Provider Department 08/25/24 12:20 PM AZIZA THOMPSON FAMPWS During your visit today, we recorded the following information about you: Temperature Pulse Respiration Blood pressure 98.3 degrees 53/minute 16/minute 132/82 Weight 52.6 kg Aziza Thompson PA-C 08/25/2024 12:51 PM Signed Chief Complaint Patient presents with: Follow Up: Blood pressure HPI Michael Greenetinger is a 68 year old female [...] and upcoming major surgery. - Reports feeling "off," with periods of numbness and desire to [...] Health Maintenanc (more content not included)... Normal [facility] [id number] 08-22-2024 [id number] HNO ID: [id number] Author: QUOC MCCRACKEN PT Service: ? Author Type: Physical Therapist Type: [id number] Filed: 08/22/2024 14:41 Note Text: [facility] Physical Therapy Plan of Care Certification Patient Name: Michael Velazquez : 1955 CCF #: [id number] Date: 08/22/2024 To: Aziza Thompson PA-C From Therapist: Quoc Mccracken PT RE: Patient Certification/ Recertification Your review, approval and electronic signature are required in order to comply with Payor: [employer] MEDICARE / Plan: [employer] PLUS / Product Type: HMO / regulations. The identified Physical Therapy PLAN OF CARE for the patient is as follows: M72.2 Plantar fasciitis of right foot (primary encounter diagnosis) PLAN OF CARE UPDATE: Assessment: Michael Velazquez demonstrates significant improvement in low back [...] Goals for Episode of Care: established 07/18/24 Leeper in home exercise program. - MET Perform [...] Patient to be seen for Therapeutic exercise (66889), Neuromuscular re-education (80734), Manual therapy (09740), Therapeutic activities (12315), Self-longterm management (36538), Patient/Family/Caregiver Education, Body Mechanics Training PLAN FOR NEXT VISIT: For further details regarding this patient refer to the Physical Therapy electronically documented visit dated 08/22/2024. Provider Attestation I have reviewed the treatment plan for Michael Velazquez, CCF# [id number] for the period of 08/22/24 -- 10/17/24, established on 08/22/2024. Signature certifies the need for therapy services. Normal [facility] CNTHERAPYon 08-22-2024 CNTHERAPY OT/PT/Speech Visit ( PTWS) CAROLINEMICHAEL HOPKINS ([id number]) 1955 F Date Time Provider Department 08/22/24 2:00 PM QUOC MCCRACKEN PTWS Date Time Provider Department Center 08/22/2024 2:00 PM [id number], COREY PTWS Sonido Ventura Reason for Visit: [...] Apply to affected area twice daily. Normal [facility] Comprehensive metabolic 2000 panelon 08-09-2024 Albumin [Mass/Vol] 4.8 g/dL 3.9 - 4.9 g/dL [facility] ALP [Catalytic activity/Vol] 67 U/L 34 - 123 U/L [facility] ALT [Catalytic activity/Vol] 22 U/L 7 - 38 U/L [facility] Anion gap [Moles/Vol] 13 mmol/L 8 - 15 mmol/L [facility] AST [Catalytic activity/Vol] 24 U/L 13 - 35 U/L [facility] Bilirubin [Mass/Vol] 0.3 mg/dL 0.2 - 1.3 mg/dL [facility] Calcium [Mass/Vol] 9.1 mg/dL 8.5 - 10. 2 mg/dL [facility] Chloride [Moles/Vol] 103 mmol/L 98 - 107 mmol/L [facility] CO2 [Moles/Vol] 24 mmol/L 22 - 30 mmol/L [facility] Creatinine [Mass/Vol] 0.83 mg/dL 0.58 - 0.96 mg/dL [facility] GFR/1.73 sq M.predicted among non-blacks MDRD (S/P/Bld) [Vol rate/Area] 77 mL/min/{1.73_m2} - PINF [facility] Comment on above: Estimated Glomerular Filtration Rate [...] [Mass/Vol] 82 mg/dL 74 - 99 mg/dL [facility] Comment on above: The [place] Diabete s Association (ADA) provides guidance for [...] Standards of Medical Care in Diabetes 2016, [place] Diabetes Association. Diabetes Care. 2016.39(Suppl 1). Interpretation and review of laboratory results Normal [facility] Potassium [Moles/Vol] 4.7 mmol/L 3.7 - 5.1 mmol/L [facility] Protein [Mass/Vol] 7.6 g/dL 6.3 - 8.0 g/dL [facility] Sodium [Moles/Vol] 140 mmol/L 136 - 144 mmol/L [facility] Urea nitrogen [Mass/Vol] 10 mg/dL 7 - 21 mg/dL [facility] FOLATE, SERUMon 08-09-2024 Folate [Mass/Vol] 19.6 ng/mL 4.7 - PINF ng/mL [facility] HbA1c (Bld)on 08-09-2024 Average glucose Estimated from glycated hemoglobin (Bld) [Mass/Vol] 97 mg/dL [facility] Comment on above: eAG: (Estimated aver age glucose) is a calculated value from HgbA1c and is manufacturing sales representative of the average blood glucose level in the last 2-3 month period. HbA1c (Bld) [Mass fraction] 5 % 4.3 - 5.6 % [facility] Comment on above: [place] Diabetes As sociation guidelines indicate that patients with HgbA1c in the range 5.7-6.4% are at increased risk for development of diabetes, and intervention by lifestyle modification may be beneficial. HgbA1c greater or equal to 6.5% is considered diagnostic of diabetes. [facility] LIPID PANEL, NONFASTINGon Cholesterol [Mass/Vol] 232 mg/dL High NINF - 200 mg/dL [facility] Comment on above: <200 mg/dL, Desirabl e 200-239 mg/dL, Borderline high >239 mg/dL, High HDL Cholesterol, Nonfasting 81 mg/dL 39 - PINF mg/dL [facility] Comment on above: 40-59 mg/dL, Accepta ble >59 mg/dL, High: Negative risk factor for coronary heart disease <40 mg/dL, Low: Positive risk factor for coronary heart disease LDL Cholesterol Calculated, Nonfasting 132 mg/dL High NINF - 100 mg/dL [facility] Comment on above: <100 mg/dL, Optimal 100-129 mg/dL, Near optimal/above optimal 130-159 mg/dL, Borderline high 160-189 mg/dL, High >189 mg/dL, Very high Secondary prevention optimal LDL Cholesterol levels are recommended to be < 70 mg/dL LDL/HDL Ratio, Nonfasting 1.63 mg/dL NINF - 2.54 mg/dL [facility] Comment on above: Reference: 1. National Cholesterol Education Program ATP III Guideline At-A-Glance Quick Desk Reference: National Heart, Lung, and Blood Wheeler. National Institutes of Health. 2001: NIH Publication No. 01-3305. 2. An International Atherosclerosis Society position paper: global recommendations for the management of dyslipidemia: executive summary, Atherosclerosis. 2014: 232(2):410-413. Non HDL Cholesterol, Nonfasting 151 mg/dL High NINF - 130 mg/dL [facility] Comment on above: <130 mg/dL, Optimal 130-159 mg/dL, Near optimal/above optimal 160-189 mg/dL, Borderline high 190-219 mg/dL, High >219 mg/dL, Very high Secondary prevention optimal non HDL Cholesterol levels are recommended to be <100 mg/dL Total Chol/HDL Ratio, Nonfasting 2.86 mg/dL NINF - 5.10 mg/dL [facility] Triglycerides, Nonfasting 96 mg/dL NINF - 150 mg/dL [facility] Comment on above: <150 mg/dL, Normal 150-199 mg/dL, Borderline high 200-499 mg/dL, High >499 mg/dL, Very high VLDL Cholesterol, Nonfasting 19 mg/dL NINF - 30 mg/dL [facility] MAGNESIUMon 08-09-2024 Magnesium [Mass/Vol] 2.5 mg/dL High 1.7 - 2.3 mg/dL [facility] No Panel Informationon 08-09 Interpretation and review of laboratory results Normal [facility] Interpretation and review of laboratory results Abnormal [facility] THYROID STIMULATING HORMONEo n 08-09-2024 TSH Qn 1.75 m[IU]/L [facility] TSH Qnon 08-09-2024 Interpretation and review of laboratory results Normal [facility] VITAMIN B12on 08-09-2024 Cobalamin (Vitamin B12) [Mass/Vol] 736 pg/mL 232 - 1245 pg/mL [facility] CBC W Auto Differential pane l (Bld)on 08-08-2024 Basophils (Bld) [#/Vol] 0.07 10*3/uL [facility] Basophils/100 WBC (Bld) 0.8 % [facility] Differential cell count method Nom (Bld) Auto [facility] Eosinophils (Bld) [#/Vol] 0.1 10*3/uL [facility] Eosinophils/100 WBC (Bld) 1.2 % [facility] Erythrocyte distribution width (RBC) [Ratio] 12.6 % 11.5 - 15.0 % [facility] Hematocrit (Bld) [Volume fraction] 40 % 36.0 - 46.0 % [facility] Hemoglobin (Bld) [Mass/Vol] 13.2 g/dL 11.5 - 15.5 g/dL [facility] Immature granulocytes (Bld) [#/Vol] 0.03 10*3/uL [facility] Immature granulocytes/100 WBC (Bld) 0.4 % [facility] Lymphocytes (Bld) [#/Vol] 1.42 10*3/uL [facility] Lymphocytes/100 WBC (Bld) 16.7 % [facility] MCH (RBC) [Entitic mass] 31.4 pg 26.0 - 34.0 pg [facility] MCHC (RBC) [Mass/Vol] 33 g/dL 30.5 - 36.0 g/dL [facility] MCV (RBC) [Entitic vol] 95.2 fL 80.0 - 100.0 fL [facility] Monocytes (Bld) [#/Vol] 0.66 10*3/uL [facility] Monocytes/100 WBC (Bld) 7.8 % [facility] Neutrophils (Bld) [#/Vol] 6.23 10*3/uL [facility] Neutrophils/100 WBC (Bld) 73.1 % [facility] Nucleated RBC (Bld) [#/Vol] [facility] Nucleated RBC/100 WBC (Bld) [Ratio] 0 % /100 WBC [facility] Platelet mean volume (Bld) [Entitic vol] 11.6 fL 9.0 - 12.7 fL [facility] Platelets (Bld) [#/Vol] 234 10*3/uL [facility] RBC (Bld) [#/Vol] 4.2 10*6/uL 3.90 - 5.20 m/uL [facility] WBC (Bld) [#/Vol] 8.51 10*3/uL [facility] Basophils (Bld) [#/Vol] 0.07 10*3/uL Normal <0.11 [facility] Comment on above: Order Comment: Speci men Type: BLOOD SPECIMENOrdering Facility: [facility] Address: [address] [place] [address] Performed By: #### 5 7021-8 ####[facility] LABCLIA [id number] [address], [facility] [place] Basophils/100 WBC (Bld) 0.8 % Normal [facility] Comment on above: Order Comment: Speci men Type: BLOOD SPECIMENOrdering Facility: [facility] Address: [address] [place] [address] Performed By: #### 5 7021-8 ####[facility] LABCLIA [id number] [address], [place] [address] [place] [place] Differential cell count method Nom (Bld) Auto Normal [facility] Comment on above: Order Comment: Speci men Type: BLOOD SPECIMENOrdering Facility: [facility] Address: [address] [place] [address] Performed By: #### 5 7021-8 ####[facility] LABCLIA [id number] [place] [id number] [place] Eosinophils (Bld) [#/Vol] 0.10 10*3/uL Normal <0.46 [facility] Comment on above: Order Comment: Speci men Type: BLOOD SPECIMENOrdering Facility: [facility] Address: [address] [place] [address] Performed By: #### 5 7021-8 ####[facility] LABCLIA [id number] [facility] [address], [facility]95 [place] Eosinophils/100 WBC (Bld) 1.2 % Normal [facility] Comment on above: Order Comment: Speci men Type: BLOOD SPECIMENOrdering Facility: [facility] Address: [address] [place] [address] Performed By: #### 5 7021-8 ####[facility] LABIA [id number] [place] [address] [place] Erythrocyte distribution width (RBC) [Ratio] 12.6 % Normal 11.5-15.0 [facility] Comment on above: Order Comment: Speci men Type: BLOOD SPECIMENOrdering Facility: [facility] Address: [address] [place] [address] Performed By: #### 5 7021-8 ####[facility] LABIA [id number] [place] [address] [place] Hematocrit (Bld) [Volume fraction] 40.0 % Normal 36.0-46.0 [facility] Comment on above: Order Comment: Speci men Type: BLOOD SPECIMENOrdering Facility: [facility] Address: [address] [place] [address] Performed By: #### 5 7021-8 ####[facility] LABIA [id number] [place] [address] [place] Hemoglobin (Bld) [Mass/Vol] 13.2 g/dL Normal 11.5-15.5 [facility] Comment on above: Order Comment: Speci men Type: BLOOD SPECIMENOrdering Facility: [facility] Address: [address] [place] [address] Performed By: #### 5 7021-8 ####[facility] LABIA [id number] [place] [address] [place] Immature granulocytes (Bld) [#/Vol] 0.03 10*3/uL Normal <0.10 [facility] Comment on above: Order Comment: Speci men Type: BLOOD SPECIMENOrdering Facility: [facility] Address: [address] [place] [address] Performed By: #### 5 7021-8 ####[facility] LABCLIA [id number] [place] [address] [place] Immature granulocytes/100 WBC (Bld) 0.4 % Normal [facility] Comment on above: Order Comment: Speci men Type: BLOOD SPECIMENOrdering Facility: [facility] Address: [address] [place] [address] Performed By: #### 5 7021-8 ####[facility] LABIA [id number] [place] [address] [place] Lymphocytes (Bld) [#/Vol] 1.42 10*3/uL Normal 1.00-4.00 [facility] Comment on above: Order Comment: Speci men Type: BLOOD SPECIMENOrdering Facility: [facility] Address: [address] [place] [address] Performed By: #### 5 7021-8 ####[facility] LABIA [id number] [address] [place] Lymphocytes/100 WBC (Bld) 16.7 % Normal [facility] Comment on above: Order Comment: Speci men Type: BLOOD SPECIMENOrdering Facility: [facility] Address: [address] [place] [address] Performed By: #### 5 7021-8 ####[facility] LABIA [id number] [place] [address] [place] MCH (RBC) [Entitic mass] 31.4 pg Normal 26.0-34.0 [facility] Comment on above: Order Comment: Speci men Type: BLOOD SPECIMENOrdering Facility: [facility] Address: [address] [place] [address] Performed By: #### 5 7021-8 ####[facility] LABIA [id number] [place] [address] [place] MCHC (RBC) [Mass/Vol] 33.0 g/dL Normal 30.5-36.0 [facility] Comment on above: Order Comment: Speci men Type: BLOOD SPECIMENOrdering Facility: [facility] Address: [address] [place] [address] Performed By: #### 5 7021-8 ####[facility] LABCLIA [id number] [place] [address] [place] MCV (RBC) [Entitic vol] 95.2 fL Normal 80.0-100.0 [facility] Comment on above: Order Comment: Speci men Type: BLOOD SPECIMENOrdering Facility: [facility] Address: [address] [place] [address] Performed By: #### 5 7021-8 ####[facility] LABIA [id number] [place] [address] [place] Monocytes (Bld) [#/Vol] 0.66 10*3/uL Normal <0.87 [facility] Comment on above: Order Comment: Speci men Type: BLOOD SPECIMENOrdering Facility: [facility] Address: [address] [place] [address] Performed By: #### 5 7021-8 ####[facility] LABIA [id number] [place] [address] [place] Monocytes/100 WBC (Bld) 7.8 % Normal [facility] Comment on above: Order Comment: Speci men Type: BLOOD SPECIMENOrdering Facility: [facility] Address: [address] [place] [address] Performed By: #### 5 7021-8 ####[facility] LABIA [id number] [place] [address] [place] Neutrophils (Bld) [#/Vol] 6.23 10*3/uL Normal 1.45-7.50 [facility] Comment on above: Order Comment: Speci men Type: BLOOD SPECIMENOrdering Facility: [facility] Address: [address] [place] [address] Performed By: #### 5 7021-8 ####[facility] LABCLIA [id number] [place] [address] [place] Neutrophils/100 WBC (Bld) 73.1 % Normal [facility] Comment on above: Order Comment: Speci men Type: BLOOD SPECIMENOrdering Facility: [facility] Address: [address] [place] [address] Performed By: #### 5 7021-8 ####[facility] LABCLIA [id number] [place] [address] [place] Nucleated RBC (Bld) [#/Vol] 10*3/uL Normal <0.01 [facility] Comment on above: Order Comment: Speci men Type: BLOOD SPECIMENOrdering Facility: [facility] Address: [address] [place] [address] Performed By: #### 5 7021-8 ####[facility] LABIA [id number] [place] [address] [place] Nucleated RBC/100 WBC (Bld) [Ratio] 0.0 /100 WBC Normal [facility] Comment on above: Order Comment: Speci men Type: BLOOD SPECIMENOrdering Facility: [facility] Address: [address] [place] [address] Performed By: #### 5 7021-8 ####[facility] LABIA [id number] [place] [address] [place] Platelet mean volume (Bld) [Entitic vol] 11.6 fL Normal 9.0-12.7 [facility] Comment on above: Order Comment: Speci men Type: BLOOD SPECIMENOrdering Facility: [facility] Address: [address] [place] [address] Performed By: #### 5 7021-8 ####[facility] LABIA [id number] [place] [address] [place] Platelets (Bld) [#/Vol] 234 10*3/uL Normal 150-400 [facility] Comment on above: Order Comment: Speci men Type: BLOOD SPECIMENOrdering Facility: [facility] Address: [address] [place] [address] Performed By: #### 5 7021-8 ####[facility] LABIA [id number] [place] [address] [place] RBC (Bld) [#/Vol] 4.20 10*6/uL Normal 3.90-5.20 [facility] Comment on above: Order Comment: Speci men Type: BLOOD SPECIMENOrdering Facility: [facility] Address: [address] [place] [address] Performed By: #### 5 7021-8 ####[facility] LABIA [id number] [place] [address] [place] WBC (Bld) [#/Vol] 8.51 10*3/uL Normal 3.70-11.00 [facility] Comment on above: Order Comment: Speci men Type: BLOOD SPECIMENOrdering Facility: [facility] Address: [address] [place] [address] Performed By: #### 5 7021-8 ####[facility] [id number] [place] [address] [place] [facility] 08-08-20[facility] MICHAEL VELAZQUEZ ([id number]) 1955 F Date Time Provider Department 08/08/24 1:00 PM AZIZA THOMPSON FAMPWS During your visit today, we recorded the following information about you: Temperature Pulse Respiration Blood pressure 98.4 degrees 58/minute 16/minute 143/85 Weight Height 53.5 kg 1.57 m Aziza Thompson PA-C 08/08/2024 2:45 PM Signed Michael Velazquez is a 68 year old female [...] ?F) Resp 16 Ht 157 cm (5' 1.81") Wt 53.5 kg (118 lb) SpO2 97% BMI 21.71 kg/m? Vision Screening: Follows with optometry/ophthalmology Assessment/Plan Medicare annual wellness visit, subsequent (Z00.00) - Counseled on healthy diet and regular exercise - Fall avoidance information provided - Personalized prevention plan provided Chief Complaint Patient presents with: Medicare Wellness Exam HPI Michael Velazquez is a 68 year old female who presents here today for extensive exam. Patient with hx of HTN, hyperlipidemia, hypothyroidism, elevated blood sugar, and those as below. Annual Wellness Exam: - No recent medical or surgical changes. - Recent eye exam completed. - No advanced directive completed yet. - recently received a [employer] message indicating a possible recurrence of a [...] young age. Palpitations: - Palpitations described as "pounding" and "flip-flops" in chest, occurring daily, worse after waking up. - Associated with a need to take deep breaths; no associated pain. - Palpitations noticed before and after consuming 2 cups of coffee in the morning. - No history of stress test. Leg Cramps: - Severe leg and foot cramps, especially at night, described as foot drawing down like a "claw" and extending into the calf. - Cramps occur more frequently, sometimes during the day, particularly after walking and putting groceries in the car. - Taking magnesium at night and using [employer] on calves with uncertain benefit. 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 - Feet are always cold; shadowgraph operator mentioned possible Raynaud's syndrome. - Describes a sensation in calves like "worms wiggling around." - Recent incident of right knee pain described as something "caught" under the kneecap, causing limping; similar incident occurred previously with no abnormalities found on x-ray. Past medical history, appointments, medications, allergies reviewed. Previous (more content not included)... Normal [facility] metabolic 2000 panelon 08-08-2024 Albumin [Mass/Vol] 4.8 g/dL Normal 3.9-4.9 [facility] Comment on above: Order Comment: Speci men Type: BLOOD SPECIMENOrdering Facility: [facility] Address: [address] [place] [address] Performed By: #### 1 9123-9, LIPNF, 3016-3, 57523-9 ####[facility] LABCLIA [id number] [place] [address] [place] ALP [Catalytic activity/Vol] 67 U/L Normal 34-123 [facility] Comment on above: Order Comment: Speci men Type: BLOOD SPECIMENOrdering Facility: [facility] Address: [address] [place] [address] Performed By: #### 1 9123-9, LIPNF, 3016-3, 93772-6 ####[facility] LABCLIA [id number] [place] [address] [place] ALT [Catalytic activity/Vol] 22 U/L Normal 7-38 [facility] Comment on above: Order Comment: Speci men Type: BLOOD SPECIMENOrdering Facility: [facility] Address: [address] [place] [address] Performed By: #### 1 9123-9, LIPNF, 3016-3, 17935-4 ####[facility] LABCLIA [id number] [place] [address] [place] Anion gap [Moles/Vol] 13 mmol/L Normal 8-15 [facility] Comment on above: Order Comment: Speci men Type: BLOOD SPECIMENOrdering Facility: [facility] Address: [address] [place] [address] Performed By: #### 1 9123-9, LIPNF, 3016-3, 83250-4 ####[facility] LABCLIA [id number] [address] [place] [address] [place] AST [Catalytic activity/Vol] 24 U/L Normal 13-35 [facility] Comment on above: Order Comment: Speci men Type: BLOOD SPECIMENOrdering Facility: [facility] Address: [address] [place] [address] Performed By: #### 1 9123-9, LIPNF, 3, 27727-1 ####[facility] LABCLIA [id number] [address] [address] [place] Bilirubin [Mass/Vol] 0.3 mg/dL Normal 0.2-1.3 [facility] Comment on above: Order Comment: Speci men Type: BLOOD SPECIMENOrdering Facility: [facility] Address: [address] [place] [address] Performed By: #### 1 9123-9, LIPNF, 3, 67197-0 ####[facility] LABCLIA [id number] [place] [address] [place] Calcium [Mass/Vol] 9.1 mg/dL Normal 8.5-10.2 [facility] Comment on above: Order Comment: Speci men Type: BLOOD SPECIMENOrdering Facility: [facility] Address: [address] [place] [address] Performed By: #### 1 9123-9, LIPNF, 3015-06, ####[facility] LABCLIA [id number] [place] [address] [place] Chloride [Moles/Vol] 103 mmol/L Normal 98-107 [facility] Comment on above: Order Comment: Speci men Type: BLOOD SPECIMENOrdering Facility: [facility] Address: [address] [place] [address] Performed By: #### 1 9123-9, LIPNF, 3, 16015-6 ####[facility] LABCLIA [id number] [address] [address] [place] CO2 [Moles/Vol] 24 mmol/L Normal 22-30 [facility] Comment on above: Order Comment: Speci men Type: BLOOD SPECIMENOrdering Facility: [facility] Address: [address] [place] [address] Performed By: #### 1 9123-9, LIPELI, 3015-3, 17937-3 ####[facility] LABCLIA [id number] [address] [address] [place] Creatinine [Mass/Vol] 0.83 mg/dL Normal 0.58-0.96 [facility] Comment on above: Order Comment: Speci men Type: BLOOD SPECIMENOrdering Facility: [facility] Address: [address] [place] [address] Performed By: #### 1 9123-9, LIPELI, 3015-3, 53467-9 ####[facility] LABCLIA [id number] [address] [address] [place] Creatinine and Glomerular filtration rate.predicted panel (S/P/Bld) 77 mL/min/1.73m??? Normal >=60 [facility] Comment on above: Order Comment: Speci men Type: BLOOD SPECIMENOrdering Facility: [facility] Address: [address] [place] [address] Result Comment: Annie mated Glomerular Filtration Rate [...] actual GFR. Performed By: #### 1 9123-9, LIPELI, 3015-3, 29829-0 ####[facility] LABCLIA [id number] [address] [address] [place] Glucose [Mass/Vol] 82 mg/dL Normal 74-99 [facility] Comment on above: Order Comment: Speci men Type: BLOOD SPECIMENOrdering Facility: [facility] Address: [address] [place] [address] Result Comment: The [place] Diabetes Association (ADA) provides guidance for cutoff [...] Standards of Medical Care in Diabetes 2016, [place] Diabetes Association. Diabetes Care. 2016.39(Suppl 1). Performed By: #### 1 9123-9, BRENDEN, 3015-06, ####[facility] LABCLIA [id number] [place] [address] [place] Potassium [Moles/Vol] 4.7 mmol/L Normal 3.7-5.1 [facility] Comment on above: Order Comment: Speci men Type: BLOOD SPECIMENOrdering Facility: [facility] Address: [address] [place] [address] Performed By: #### 1 9123-9, BRENDEN, 3015-06, ####[facility] LABIA [id number] [place] [address] [place] Protein [Mass/Vol] 7.6 g/dL Normal 6.3-8.0 [facility] Comment on above: Order Comment: Speci men Type: BLOOD SPECIMENOrdering Facility: [facility] Address: [address] [place] [address] Performed By: #### 1 9123-9, LIPELI, 3015-06, ####[facility] LABCLIA [id number] [place] [address] [place] Sodium [Moles/Vol] 140 mmol/L Normal 136-144 [facility] Comment on above: Order Comment: Speci men Type: BLOOD SPECIMENOrdering Facility: [facility] Address: [address] [place] [address] Performed By: #### 1 9123-9, LIPNF, 3016-3, 97127-0 ####[facility] LABCLIA [id number] [place] [address] [place] Urea nitrogen [Mass/Vol] 10 mg/dL Normal 7-21 [facility] Comment on above: Order Comment: Speci men Type: BLOOD SPECIMENOrdering Facility: [facility] Address: [address] [place] [address] Performed By: #### 1 9123-9, LIPNF, 3016-3, 79047-5 ####[facility] LABCLIA [id number] [address] [place] [id number] 08-08-2024 ECG01 Ventricular Rate : 5 4 BPM Atrial Rate : 54 BPM P-R Interval : 156 ms QRS Duration : 82 ms Q-T Interval : 462 ms QTC Calculation(Bazett) : 438 ms Calculated P [place] : 52 degrees Calculated R [place] : -19 degrees Calculated T [place] : 21 degrees SINUS BRADYCARDIA OTHERWISE NORMAL ECG Confirmed by MD TAN QARAB ([id number]) on 08/12/2024 8:30:09 AM NAME : MICHAEL VELAZQUEZ PID : [id number] : 1955 Gender : Female Race : ORD : Procedure Date : Aug 08 2024 14:16:48 Edit Date : Aug 12 2024 08:30:13 Diagnosis: SINUS BRADYCARDIA OTHERWISE NORMAL ECG Confirmed by MD TAN QARAB ([id number]) on 08/12/2024 8:30:09 AM Test Reason : Location : 136 : [place] Overread By : MD TAN QARAB Edited By : MD TAN QARAB Referred By : Aziza Thompson Acquired by : Liam no [facility] Folate SerPl-mCncon 08-09-19 25 Folate [Mass/Vol] 19.6 ng/mL Normal >4.7 [facility] Comment on above: Order Comment: Speci men Type: BLOOD SPECIMENOrdering Facility: [facility] Address: [address] [place] [address] Performed By: #### 2 132-9, 2284-8 ####[facility] LABCLIA [id number] [facility] [address] [address] [facility] [place] HbA1c (Bld)on 08-08-2024 Average glucose Estimated from glycated hemoglobin (Bld) [Mass/Vol] 97 mg/dL Normal [facility] Comment on above: Order Comment: [facility] Type: BLOOD SPECIMENOrdering Facility: [facility] Address: [address] [place] [address] Result Comment: eAG: (Estimated average glucose) is a calculated value from HgbA1c and is manufacturing sales representative of the average blood glucose level in the last 2-3 month period. Performed By: #### 5 5454-3 ####[facility] LABIA [id number] [address] [place] HbA1c (Bld) [Mass fraction] 5.0 % Normal 4.3-5.6 [facility] Comment on above: Order Comment: [facility] Type: BLOOD SPECIMENOrdering Facility: [facility] Address: [address] [place] [address] Result Comment: [place] Diabetes Association guidelines indicate that patients with HgbA1c in the range 5.7-6.4% are at increased risk for development of diabetes, and intervention by lifestyle modification may be beneficial. HgbA1c greater or equal to 6.5% is considered diagnostic of diabetes. Performed By: #### 5 5454-3 ####[facility] LABIA [id number] [address] [address] [place] LIPID PANEL, NONFASTINGon Cholesterol [Mass/Vol] 232 mg/dL High <200 [facility] Comment on above: Order Comment: [facility] Type: BLOOD SPECIMENOrdering Facility: [facility] Address: [address] [place] [address] Result Comment: <200 mg/dL, Desirable 200-239 mg/dL, Borderline high >239 mg/dL, High Performed By: #### 1 9123-9, LIPNF, 3016-3, 22045-6 ####[facility] LABCLIA [id number] [address] [address] [place] HDL CHOLESTEROL, NF 81 mg/dL Normal >39 [facility] Comment on above: Order Comment: Speci men Type: BLOOD SPECIMENOrdering Facility: [facility] Address: [address] [place] [address] Result Comment: 40-5 9 mg/dL, Acceptable >59 mg/dL, High: Negative risk factor for coronary heart disease <40 mg/dL, Low: Positive risk factor for coronary heart disease Performed By: #### 1 9123-9, LIPNF, 3015-3, 09969-6 ####[facility] LABCLIA [id number] [place] [address] [place] LDL CHOLESTEROL, NF 132 mg/dL High <100 [facility] Comment on above: Order Comment: Speci men Type: BLOOD SPECIMENOrdering Facility: [facility] Address: [address] [place] [address] Result Comment: <100 mg/dL, Optimal 100-129 mg/dL, Near optimal/above optimal 130-159 mg/dL, Borderline high 160-189 mg/dL, High >189 mg/dL, Very high Secondary prevention optimal LDL Cholesterol levels are recommended to be < 70 mg/dL Performed By: #### 1 9123-9, LIPNF, 3015-3, 19908-0 ####[facility] LABCLIA [id number] [address] [address] [place] LDL/HDL RATIO, NF 1.63 mg/dL Normal <2.54 [facility] Comment on above: Order Comment: Speci men Type: BLOOD SPECIMENOrdering Facility: [facility] Address: [address] [place] [address] Result Comment: Refe rence: 1. National Cholesterol Education Program ATP III Guideline At-A-Glance Quick Desk Reference: National Heart, Lung, and Blood Wheeler. National Institutes of Health. 2001: NIH Publication No. 01-3305. 2. An International Atherosclerosis Society position paper: global recommendations for the management of dyslipidemia: executive summary, Atherosclerosis. 2014: 232(2):410-413. Performed By: #### 1 9123-9, LIPNF, 3016-3, 57604-3 ####[facility] LABCLIA [id number] [address] [address] [place] NON HDL CHOL, NF 151 mg/dL High <130 [facility] Comment on above: Order Comment: Speci men Type: BLOOD SPECIMENOrdering Facility: [facility] Address: [address] [place] [address] Result Comment: <130 mg/dL, Optimal 130-159 mg/dL, Near optimal/above optimal 160-189 mg/dL, Borderline high 190-219 mg/dL, High >219 mg/dL, Very high Secondary prevention optimal non HDL Cholesterol levels are recommended to be <100 mg/dL Performed By: #### 1 9123-9, LIPNF, 3016-3, 83966-6 ####[facility] LABCLIA [id number] [address] [address] [place] T CHOL/HDL RATIO NF 2.86 mg/dL Normal <5.10 [facility] Comment on above: Order Comment: Speci men Type: BLOOD SPECIMENOrdering Facility: [facility] Address: [address] [place] [address] Performed By: #### 1 9123-9, LIPNF, 3016-3, 63666-4 ####[facility] LABCLIA [id number] [place] [address] [place] TRIGLYCERIDES, NF 96 mg/dL Normal <150 [facility] Comment on above: Order Comment: Speci men Type: BLOOD SPECIMENOrdering Facility: [facility] Address: [address] [place], [place] [id number] Result Comment: <150 mg/dL, Normal 150-199 mg/dL, Borderline high 200-499 mg/dL, High >499 mg/dL, Very high Performed By: #### 1 9123-9, LIPNF, 3015-3, 91468-0 ####[facility] LABIA [id number] [place] [address] [place] VLDL CHOLESTEROL, NF 19 mg/dL Normal <30 [facility] Comment on above: Order Comment: Speci men Type: BLOOD SPECIMENOrdering Facility: [facility] Address: [address] [place] [address] Performed By: #### 1 9123-9, LIPNF, 3, 75150-6 ####[facility] LABIA [id number] [place] [address] [place] Magnesium SerPl-mCncon 08-08 Magnesium [Mass/Vol] 2.5 mg/dL High 1.7-2.3 [facility] Comment on above: Order Comment: Speci men Type: BLOOD SPECIMENOrdering Facility: [facility] Address: [address] [place] [address] Performed By: #### 1 9123-9, LIPNF, 3, ####[facility] LABIA [id number] [place] [address] [place] TSH SerPl-aCncon 08-08-2024 TSH Qn 1.750 m[IU]/L Normal 0.270-4.20 0 [facility] Comment on above: Order Comment: Speci men Type: BLOOD SPECIMENOrdering Facility: [facility] Address: [address] [place] [address] Performed By: #### 1 9123-9, LIPNF, 3015-3, ####[facility] LABIA [id number] [place] [address] [place] Urinalysis complete panel (U )on 08-08-2024 Bacteria LM.HPF (Urine sed) [#/Area] Negative Negative /HPF [facility] Bilirubin Ql (U) Negative Negative [facility] Clarity (Unsp spec) Clear Clear [facility] Color (U) Yellow Yellow [facility] Epithelial cells LM.HPF (Urine sed) [#/Area] None Seen /HPF [facility] Glucose Test strip (U) [Mass/Vol] Negative Negative [facility] Hemoglobin Ql (U) Negative Negative [facility] Hyaline casts (Urine sed) [#/Area] 0 /[LPF] 0 /LPF [facility] Ketones Ql (U) Negative Negative [facility] Leukocyte esterase Test strip Ql (U) Negative Negative [facility] Nitrite Ql (U) Negative Negative [facility] pH (U) 6 [pH] NINF - 8.5 [facility] Protein (U) [Mass/Vol] Negative Negative [facility] RBC LM.HPF (Urine sed) [#/Area] 0-2 /HPF 0-2 /HPF [facility] Specific gravity (U) [Rel density] 1.007 1.005 - 1.030 [facility] Urobilinogen Ql (U) 0.2 EU/dL 0.2-1.0 EU/dL [facility] WBC LM.HPF (Urine sed) [#/Area] 0-5 /HPF 0-5 /HPF [facility] This test was jt loomis and its performance characteristics determined by [facility]'s [facility] Pathology and Laboratory Medicine Wheeler (-PLMI). It has not been cleared or approved by the FDA. -[facility] is regulated under CLIA as qualified to perform high-complexity testing. This test is used for clinical purposes. It should not be regarded as investigational or for research. [facility] Bacteria LM.HPF (Urine sed) [#/Area] Negative Normal Negative [facility] Comment on above: Order Comment: Speci men Type: URINE SPECIMENOrdering Facility: [facility] Address: [address] [place] [address] Performed By: #### 2 4356-8 ####[facility] LABCLIA [id number] [place] [address] [place] Bilirubin Ql (U) Negative Normal Negative [facility] Comment on above: Order Comment: Speci men Type: URINE SPECIMENOrdering Facility: [facility] Address: [address] [place] [address] Performed By: #### 2 4356-8 ####[facility] LABCLIA [id number] [address] [place] [address] [place] Clarity (Unsp spec) Clear Normal Clear [facility] Comment on above: Order Comment: Speci men Type: URINE SPECIMENOrdering Facility: [facility] Address: [address] [place] [address] Performed By: #### 2 4356-8 ####[facility] LABCLIA [id number] [place] [address] [place] Color (U) Yellow Normal Yellow [facility] Comment on above: Order Comment: Speci men Type: URINE SPECIMENOrdering Facility: [facility] Address: [address] [place] [address] Performed By: #### 2 4356-8 ####[facility] LABCLIA [id number] [address], [facility] [place] Epithelial cells LM.HPF (Urine sed) [#/Area] None Seen Normal [facility] Comment on above: Order Comment: Speci men Type: URINE SPECIMENOrdering Facility: [facility] Address: [address] [place] [address] Performed By: #### 2 4356-8 ####[facility] LABCLIA [id number] [address] [place] [address] [place] Glucose Test strip (U) [Mass/Vol] Negative Normal Negative [facility] Comment on above: Order Comment: Speci men Type: URINE SPECIMENOrdering Facility: [facility] Address: [address] [place] [address] Performed By: #### 2 4356-8 ####[facility] LABCLIA [id number] [address], [facility] [place] Hemoglobin Ql (U) Negative Normal Negative [facility] Comment on above: Order Comment: Speci men Type: URINE SPECIMENOrdering Facility: [facility] Address: [address] [place] [address] Performed By: #### 2 4356-8 ####[facility] LABCLIA [id number] [address] [place] [address] [place] Hyaline casts (Urine sed) [#/Area] 0 /[LPF] Normal 0 /LPF [facility] Comment on above: Order Comment: Speci men Type: URINE SPECIMENOrdering Facility: [facility] Address: [address] [place] [address] Performed By: #### 2 4356-8 ####[facility] LABCLIA [id number] [address], [place] [address] [place] Ketones Ql (U) Negative Normal Negative [facility] Comment on above: Order Comment: Speci men Type: URINE SPECIMENOrdering Facility: [facility] Address: [address] [place] [address] Performed By: #### 2 4356-8 ####[facility] LABCLIA [id number] [address], [place] [address] [place] Leukocyte esterase Test strip Ql (U) Negative Normal Negative [facility] Comment on above: Order Comment: Speci men Type: URINE SPECIMENOrdering Facility: [facility] Address: [address] [place] [address] Performed By: #### 2 4356-8 ####[facility] LABCLIA [id number] [place] [address] [place] Nitrite Ql (U) Negative Normal Negative [facility] Comment on above: Order Comment: Speci men Type: URINE SPECIMENOrdering Facility: [facility] Address: [address] [place] [address] Performed By: #### 2 4356-8 ####[facility] LABCLIA [id number] [place] [address] [place] pH (U) 6.0 [pH] Normal <8.5 [facility] Comment on above: Order Comment: Speci men Type: URINE SPECIMENOrdering Facility: [facility] Address: [address] [place] [address] Performed By: #### 2 4356-8 ####[facility] LABIA [id number] [place] [address] [place] Protein (U) [Mass/Vol] Negative Normal Negative [facility] Comment on above: Order Comment: Speci men Type: URINE SPECIMENOrdering Facility: [facility] Address: [address] [place] [address] Performed By: #### 2 4356-8 ####[facility] LABIA [id number] [place] [address] [place] RBC LM.HPF (Urine sed) [#/Area] 0-2 /HPF Normal 0-2 /HPF [facility] Comment on above: Order Comment: Speci men Type: URINE SPECIMENOrdering Facility: [facility] Address: [address] [place] [address] Performed By: #### 2 4356-8 ####[facility] LABIA [id number] [place] [address] [place] Specific gravity (U) [Rel density] 1.007 Normal 1.005-1.03 0 [facility] Comment on above: Order Comment: Speci men Type: URINE SPECIMENOrdering Facility: [facility] Address: [address] [place] [address] Performed By: #### 2 4356-8 ####[facility] LABIA [id number] [place] [address] [place] Urobilinogen Ql (U) 0.2 EU/dL Normal 0.2-1.0 EU/dL [facility] Comment on above: Order Comment: Speci men Type: URINE SPECIMENOrdering Facility: [facility] Address: [address] [place] [address] Performed By: #### 2 4356-8 ####[facility] [id number] [place] [address] [place] WBC LM.HPF (Urine sed) [#/Area] 0-5 /HPF Normal 0-5 /HPF [facility] Comment on above: Order Comment: Speci men Type: URINE SPECIMENOrdering Facility: [facility] Address: [address] [place] [address] Performed By: #### 2 4356-8 ####[facility] [id number] [place] [address] [place] Vit B12 SerPl-mCncon 08-08-2 025 Cobalamin (Vitamin B12) [Mass/Vol] 736 pg/mL Normal 232-1245 [facility] Comment on above: Order Comment: Speci men Type: BLOOD SPECIMENOrdering Facility: [facility] Address: [address] [place] [address] Performed By: #### 2 132-9, 2284-8 ####[facility] [id number] [place] [address] [place] CNTHERAPYon 08-04-2024 CNTHERAPY OT/PT/Speech Visit ( PTWS) MICHAEL VELAZQUEZ ([id number]) 1955 F Date Time Provider Department 08/04/24 2:00 PM QUOC MCCRACKEN PTWS Date Time Provider Department Center 08/04/2024 2:00 PM [id number], COREY PTWS Sonido Ventura Reason for Visit: [...] Apply to affected area twice daily. Normal [facility] [place] 07-20-2024 CNPN Telephone (FAMPWS) MICHAEL VELAZQUEZ ([id number]) 1955 F Date Time Provider Department 07/20/24 [...] Order(s):CONSULT TO PHYSICAL THERAPY [9032] Order #: [id number]: 1 FUTURE Prescriptions as of 07/25/2024 - [...] 11/01/2021 Elevated blood sugar [R73.9] 11/19/2021 Positive FELICIA (antinuclear antibody) [R76.8] 11/21/2021 Left upper extremity [...] Status:Closed by ANGI MCGUIRE on 07/25/24 Normal [facility] DBT Breast - bilateral joe marcos 07-19-2024 IMPRESSION: There is no mammographic evidence [...] Rachelle Cheatham M.D. Electronically signed on: 07/19/2024 Tank Tender: KRUNAL Transcribe Date/Time: Jul 18 2024 11:26A Dictated by: RACHELLE CHEATHAM MD This examination was interpreted and the report reviewed and electronically signed by: RACHELLE CHEATHAM MD on Jul 19 2024 11:53AM [facility] DIVISION OF RADIOLOGY * * *Final Report* * * DATE OF EXAM: Jul 18 2024 2:18PM [facility] 0582 - [facility] SCREENING W HERNANDEZ / PROCEDURE REASON: Encounter for screening mammogram for breast cancer * * * * Physician Interpretation * * * * RESULT: [place] [address] #[id number] - [facility] SCREENING W HERNANDEZ HISTORY: 68 year-old patient [...] significant interval changes. DIVISION OF RADIOLOGY Provider, Doron Mendez - 07/19/2024 * * *Final Report* * * DATE OF EXAM: Jul 18 2024 2:18PM [facility] 0582 - [facility] SCREENING W HERNANDEZ / PROCEDURE REASON: Encounter for screening mammogram for breast cancer * * * * Physician Interpretation * * * * RESULT: [place] [address] #[id number] - [facility] SCREENING W HERNANDEZ HISTORY: 68 year-old patient [...] Rachelle Cheatham M.D. Electronically signed on: 07/19/2024 Tank Tender: KRUNAL Transcribe Date/Time: Jul 18 2024 11:26A Dictated by: RACHELLE CHEATHAM MD This examination was interpreted and the report reviewed and electronically signed by: RACHELLE CHEATHAM MD on Jul 19 2024 11:53AM EST [facility] DBT Breast - bilateral scree ningOrdered By: Ccf Provider on 07-19-2024 [facility] [id number] 07-18-2024 [id number] HNO ID: [id number] Author: QUOC MCCRACKEN PT Service: ? Author Type: Physical Therapist Type: [id number] Filed: 07/18/2024 13:43 Note Text: [facility] Rehabilitation and Sports Therapy Physical Therapy Plan of Care Certification Patient Name: Michael Velazquez : 1955 [facility] #: [id number] Date: 07/18/2024 To: Aziza Thompson PA-C From Therapist: Quoc Mccracken PT RE: Patient Certification/ Recertification Your review, approval and electronic signature are required in order to comply with Payor: [employer] MEDICARE / Plan: [facility] / Product Type: HMO / regulations. The identified Physical Therapy PLAN OF CARE for the patient is as follows: M72.2 Plantar fasciitis of right foot PLAN OF CARE: Assessment: Michael Velazquez presents with chief complaint of R [...] Goals for Episode of Care: established 07/18/24 Lee[place] in home exercise program. Perform standing/walking without pain. Improve flexibility of R gastrocnemius to WNL for decreased stress to the R plantar fascia when walking Normal gait. Patient Goals: Help prevent foot pain Time Frame for Goals and Treatment : 08/15/24 Planned Interventions, Frequency, and Duration: Current Frequency: 1x/month Duration: One month Total Number of Visits Planned: 1 Planned Treatment Interventions: Therapeutic exercise (72458), Neuromuscular re-education (06112), Manual therapy (41709), Therapeutic activities (94241), Self-longterm management (23843), Patient/Family/Caregiver Education, Body Mechanics Training PLAN FOR NEXT VISIT: Patient demonstrates good understanding of plan of care and treatment. The above goals and plan of care were discussed and agreed upon by patient/family. For further details regarding this patient refer to the Physical Therapy electronically documented visit dated 07/18/2024. Provider Attestation I have reviewed the treatment plan for Michael Velazquez, CC# [id number] for the period of 07/18/24 -- 08/22/24, established on 07/18/2024. Signature certifies the need for therapy services. Normal [facility] CNTHERAPYon 07-18-2024 CNTHERAPY OT/PT/Speech Visit ( PTWS) CAROLINERENÉMICHAEL ([id number]) 1955 F Date Time Provider Department 07/18/24 11:30 AM QUOC MCCRACKEN PTWS Date Time Provider Department Center 07/18/2024 11:30 AM [id number], COREY PTWS Sonido Ventura Reason for Visit: [...] Apply to affected area twice daily. Normal [facility] DBT Breast - bilateral scree ningon 07-18-2024 Radiology Study observation (narrative) [facility] SCREENING W TOMOon 07-18 [facility] SCREENING W HERNANDEZ * * *Final Report* * * DATE OF EXAM: Jul 18 2024 2:18PM [facility] 0582 - [facility] SCREENING W HERNANDEZ / PROCEDURE REASON: Encounter for screening mammogram for breast cancer * * * * Physician Interpretation * * * * RESULT: [place] [address] #[id number] - [facility] SCREENING W HERNANDEZ HISTORY: 68 [...] Rachelle Cheatham M.D. Electronically signed on: 07/19/2024 Tank Tender: KRUNAL Transcribe Date/Time: Jul 18 2024 11:26A Dictated by: RACHELLE CHEATHAM MD This examination was interpreted and the report reviewed and electronically signed by: RACHELLE CHEATHAM MD on Jul 19 2024 11:53AM EST [id number] Normal [facility] CNOVon 06-02-2024 CNOV Office Visit (FAMPWS ) MICHAEL VELAZQUEZ ([id number]) 1955 F Date Time Provider Department 06/02/24 10:40 AM REMY PEREZSHOAIB During your visit today, we recorded the following information about you: Pulse Blood pressure Weight Height 66/minute 137/87 53.5 kg 1.575 m Remy Perez MD 06/02/2024 11:10 AM Signed Chief Complaint Patient presents with: Plantar Fasciitis: Here for injection in R heel HPI Michael Velazquez is a 68 year old female [...] 137/87 Pulse 66 Ht 157.5 cm (5' 2") Wt 53.5 kg (118 lb) BMI 21.58 [...] in agreement. - see procedure note section. Je (more content not included)... Normal [facility] CNOVon 05-26-2024 CNOV Office Visit (FAMPWS ) MICHAEL VELAZQUEZ ([id number]) 1955 F Date Time Provider Department 2/6/25 12:00 PM AZIZA THOMPSON During your visit today, we recorded the following information about you: Temperature Pulse Respiration Blood pressure 97.3 degrees 60/minute 16/minute 130/82 Weight 54.4 kg Aziza Thompson PA-C 05/26/2024 12:19 PM Signed xrayChief Complaint Patient presents with: plantar fascitis: Right foot has gotten worse HPI Michael Velazquez is a 68 year old female [...] on 01/23/2028 Lipid Screening due on 02/07/2029 [facility] (more content not included)... Normal [facility] XR FOOT 3V AP/LAT/OBL RTon 0 [...] Plantar calcaneal enthesophyte. Other findings as described. [facility] Transcribe Date/Time: May 28 2024 4:20P Dictated by : LONG MENDOSA MD This examination was interpreted and the report reviewed and electronically signed by: LONG MENDOSA MD on May 28 2024 4:20PM EST [id number] Normal [facility] XR HIP 3V PELV+ AP/LAT LTon [...] are unremarkable. IMPRESSION: No acute osseous abnormality. Tank Tender: PSCB Transcribe Date/Time: May 28 2024 4:20P Dictated by : LONG MENDOSA MD This examination was interpreted and the report reviewed and electronically signed by: LONG MENDOSA MD on May 28 2024 4:21PM EST [id number] Normal [facility] CNTHERAPYon 03-24-2024 CNTHERAPY OT/PT/Speech Visit ( PTWS) MICHAEL VELAZQUEZ ([id number]) 1955 F Date Time Provider Department 03/24/24 11:30 AM QUOC MCCRACKEN PTWS Date Time Provider Department [place] 03/24/2024 11:30 AM [id number], COREY PTWS Sonido Ventura Reason for Visit: [...] Apply to affected area twice daily. Normal [facility] CNOVon 03-10-2024 CNOV Office Visit (UCWSTR ) MICHAEL VELAZQUEZ ([id number]) 1955 F Date Time Provider Department 03/10/24 12:15 PM VALE WATT [facility] During your visit today, we recorded the following information about you: Temperature Pulse Respiration Blood pressure 98 degrees 63/minute 21/minute 140/90 Weight 55.8 kg Vale Watt APRN.PATIENT ACCOUNTS COORDINATOR 03/10/2024 12:35 PM Signed Subjective Cough Associated symptoms include headaches, sore throat, myalgias and shortness of breath. Pertinent negatives include no chest pain, no chills and no ear pain. Michael Velazquez is a 68 year old female who presents with cough, sinus congestion and drainage, sore throat and headache for the past 5 days. Symptoms are worsening and now having sinus pressure and body aches along with some tightness in her throat and chest. . She recently traveled to [place] by car for a . She has [...] oropharyngeal exu (more content not included)... Normal [facility] [id number] 02-25-2024 [id number] HNO ID: [id number] Author: QUOC MCCRACKEN PT Service: ? Author Type: Physical Therapist Type: [id number] Filed: 02/25/2024 17:54 Note Text: [facility] Rehabilitation and Sports Therapy Physical Therapy Plan of Care Certification Patient Name: Michael Velazquez : 1955 [facility] #: [id number] Date: 02/25/2024 To: Remy Perez MD From [...] encounter diagnosis) PLAN OF CARE UPDATE: Assessment: Michael Velazquez demonstrates difficulty with none and improvements [...] Patient to be seen for Therapeutic exercise (04889), Neuromuscular re-education (90327), Manual therapy (75862), Therapeutic activities (94645), Self-longterm management (81256), Patient/Family/Caregiver Education, Body Mechanics Training PLAN FOR NEXT VISIT: Possibly DDN and /or DC For further details regarding this patient refer to the Physical Therapy electronically documented visit dated 02/25/2024. Provider Attestation I have reviewed the treatment plan for Michael Velazquez, [facility]# [id number] for the period of 02/25/24 -- 03/31/24, established on 02/25/2024. Signature certifies the need for therapy services. Normal [facility] CNTHERAPYon 02-25-2024 CNTHERAPY OT/PT/Speech Visit ( PTWS) MICHAEL VELAZQUEZ ([id number]) 1955 F Date Time Provider Department 02/25/24 5:15 PM QUOC MCCRACKEN PTWS Date Time Provider Department Center 02/25/2024 5:15 PM [id number], COREY PTWS Sonido Ventura Reason for Visit: PT Progress Note [1596] Primary Visit Diagnosis:Lumbar back pain [M54.50] Allergies [...] Apply to affected area twice daily. Normal [facility] CNTHERAPYon 02-11-2024 CNTHERAPY OT/PT/Speech Visit ( PTWS) MICHAEL VELAZQUEZ ([id number]) 1955 F Date Time Provider Department 02/11/24 10:45 AM QUOC MCCRACKEN PTWS Date Time Provider Department Center 02/11/2024 10:45 AM [id number], COREY PTWS Sonido Ventura Reason for Visit: [...] Apply to affected area twice daily. Normal [facility] [facility] VELAZQUEZ ([id number]) 1955 F Date Time Provider Department 02/09/24 AZIZA THOMPSON During your visit today, we [...] 11/01/2021 Elevated blood sugar [R73.9] 11/19/2021 Positive FELICIA (antinuclear antibody) [R76.8] 11/21/2021 Left upper extremity [...] Status:Closed by JOSLYN DUNNE on 02/09/24 Normal [facility] Basic metabolic 2000 panelon 02-08-2024 Anion gap [Moles/Vol] 11 mmol/L Normal - [facility] Comment on above: Order Comment: Speci men Type: BLOOD SPECIMENOrdering Facility: [facility] Address: [address] [place], [place] [address] [address] Performed By: #### 2 4321-2, LIPNF, 3015-3 ####[facility] LABCLIA [id number] [facility] [place] [id number] [place] Calcium [Mass/Vol] 9.3 mg/dL Normal 8.5-10.2 [facility] Comment on above: Order Comment: Speci men Type: BLOOD SPECIMENOrdering Facility: [facility] Address: [address] [place] [address] Performed By: #### 2 4321-2, LIPNF, 3015-3 ####[facility] LABCLIA [id number] [facility] [address] [place] Chloride [Moles/Vol] 102 mmol/L Normal 98-107 [facility] Comment on above: Order Comment: Speci men Type: BLOOD SPECIMENOrdering Facility: [facility] Address: [address] [place] [address] Performed By: #### 2 4320-2, LIPNF, 3 ####[facility] LABCLIA [id number] [place] [address] [place] CO2 [Moles/Vol] 27 mmol/L Normal 22-30 [facility] Comment on above: Order Comment: Speci men Type: BLOOD SPECIMENOrdering Facility: [facility] Address: [address] [place] [address] Performed By: #### 2 432-2, LIPNF, 3015-3 ####[facility] LABCLIA [id number] [facility] [address] [address] [place] Creatinine [Mass/Vol] 0.96 mg/dL Normal 0.58-0.96 [facility] Comment on above: Order Comment: Speci men Type: BLOOD SPECIMENOrdering Facility: [facility] Address: [address] [place] [address] Performed By: #### 2 4321-2, LIPNF, 3015-3 ####[facility] LABCLIA [id number] [place] [address] [place] Creatinine and Glomerular filtration rate.predicted panel (S/P/Bld) 65 mL/min/1.73m??? Normal >=60 [facility] Comment on above: Order Comment: Mira asya Type: BLOOD SPECIMENOrdering Facility: [facility] Address: [address] [place] [address] Result Comment: Annie mated Glomerular Filtration Rate [...] accurately reflect actual GFR. Performed By: #### 2 4321-2, BRENDEN, 3016-3 ####[facility] LABCLIA [id number] [place] [address] [place] Glucose [Mass/Vol] 76 mg/dL Normal 74-99 [facility] Comment on above: Order Comment: Mira sky Type: BLOOD SPECIMENOrdering Facility: [facility] Address: [address] [place] [address] Result Comment: The [place] Diabetes Association (ADA) provides guidance for cutoff [...] Standards of Medical Care in Diabetes 2016, [place] [employer] Association. Diabetes Care. 2016.39(Suppl 1). Performed By: #### 2 4321-2, LIPNF, 3016-3 ####[facility] LABCLIA [id number] [place] [id number] [place] Potassium [Moles/Vol] 4.1 mmol/L Normal 3.7-5.1 [facility] Comment on above: Order Comment: Speci men Type: BLOOD SPECIMENOrdering Facility: [facility] Address: [address] [place] [address] Performed By: #### 2 4321-2, LIPNF, 6-3 ####[facility] LABIA [id number] [place] [address] [place] Sodium [Moles/Vol] 140 mmol/L Normal 136-144 [facility] Comment on above: Order Comment: Speci men Type: BLOOD SPECIMENOrdering Facility: [facility] Address: [address] [place] [address] Performed By: #### 2 4321-2, LIPNF, 6-3 ####[facility] LABCLIA [id number] [place] [address] [place] Urea nitrogen [Mass/Vol] 8 mg/dL Normal 7-21 [facility] Comment on above: Order Comment: Speci men Type: BLOOD SPECIMENOrdering Facility: [facility] Address: [address] [place] [address] Performed By: #### 2 4321-2, LIPNF, 6-3 ####[facility] LABIA [id number] [address] [place] CNOVon 02-08-2024 CNOV Office Visit (FAMPWS ) MICHAEL VELAZQUEZ ([id number]) 1955 F Date Time Provider Department 02/08/24 1:20 PM AZIZA THOMPSON FAMPWS During your visit today, we recorded the following information about you: Temperature Pulse Respiration Blood pressure 97.3 degrees 52/minute 16/minute 126/86 Weight 54 kg Aziza Thompson PA-C 02/08/2024 2:07 PM Signed Chief Complaint Patient presents with: 6 Month Exam HPI Micahel Velazquez is a 68 year old female [...] 12/20/2023 Mammogram Screening due on 05/20/2024 Covid-19 Vaccine(4 - 2024-25 season) due on 02/07/2025 Depression Screening due on 07/22/2024 Anxiety Screening due on (more content not included)... Normal [facility] LIPID PANEL, NONFASTINGon Cholesterol [Mass/Vol] 216 mg/dL High <200 [facility] Comment on above: Order Comment: Speci men Type: BLOOD SPECIMENOrdering Facility: [facility] Address: [address] [place] [address] Result Comment: <200 mg/dL, Desirable 200-239 mg/dL, Borderline high >239 mg/dL, High Performed By: #### 2 4321-2, LIPNF, 3016-3 ####[facility] LABCLIA [id number] [place] [address] [place] HDL CHOLESTEROL, NF 66 mg/dL Normal >39 [facility] Comment on above: Order Comment: Speci men Type: BLOOD SPECIMENOrdering Facility: [facility] Address: [address] [place] [address] Result Comment: 40-5 9 mg/dL, Acceptable >59 mg/dL, High: Negative risk factor for coronary heart disease <40 mg/dL, Low: Positive risk factor for coronary heart disease Performed By: #### 2 4321-2, LIPNF, 3016-3 ####[facility] LABCLIA [id number] [place] [address] [place] LDL CHOLESTEROL, NF 120 mg/dL High <100 [facility] Comment on above: Order Comment: Speci men Type: BLOOD SPECIMENOrdering Facility: [facility] Address: [address] [place] [address] Result Comment: <100 mg/dL, Optimal 100-129 mg/dL, Near optimal/above optimal 130-159 mg/dL, Borderline high 160-189 mg/dL, High >189 mg/dL, Very high Secondary prevention optimal LDL Cholesterol levels are recommended to be < 70 mg/dL Performed By: #### 2 4321-2, LIPNF, 3016-3 ####[facility] LABCLIA [id number] [place] [address] [place] LDL/HDL RATIO, NF 1.82 mg/dL Normal <2.54 [facility] Comment on above: Order Comment: Speci men Type: BLOOD SPECIMENOrdering Facility: [facility] Address: [address] [place] [address] Result Comment: Refe rence: 1. National Cholesterol Education Program ATP III Guideline At-A-Glance Quick Desk Reference: National Heart, Lung, and Blood Wheeler. National Institutes of Health. 2001: NIH Publication No. 01-3305. 2. An International Atherosclerosis Society position paper: global recommendations for the management of dyslipidemia: executive summary, Atherosclerosis. 2014: 232(2):410-413. Performed By: #### 2 4321-2, LIPNF, 3015-3 ####[facility] LABCLIA [id number] [place] [address] [place] NON HDL CHOL, NF 150 mg/dL High <130 [facility] Comment on above: Order Comment: Speci men Type: BLOOD SPECIMENOrdering Facility: [facility] Address: [address] [place] [address] Result Comment: <130 mg/dL, Optimal 130-159 mg/dL, Near optimal/above optimal 160-189 mg/dL, Borderline high 190-219 mg/dL, High >219 mg/dL, Very high Secondary prevention optimal non HDL Cholesterol levels are recommended to be <100 mg/dL Performed By: #### 2 4321-2, LIPNF, 6-3 ####[facility] LABCLIA [id number] [place] [address] [place] T CHOL/HDL RATIO NF 3.27 mg/dL Normal <5.10 [facility] Comment on above: Order Comment: Speci men Type: BLOOD SPECIMENOrdering Facility: [facility] Address: [address] [place] [address] Performed By: #### 2 4321-2, LIPNF, 6-3 ####[facility] LABCLIA [id number] [place] [address] [place] TRIGLYCERIDES, NF 151 mg/dL High <150 [facility] Comment on above: Order Comment: Speci men Type: BLOOD SPECIMENOrdering Facility: [facility] Address: [address] [place] [address] Result Comment: <150 mg/dL, Normal 150-199 mg/dL, Borderline high 200-499 mg/dL, High >499 mg/dL, Very high Performed By: #### 2 4321-2, LIPNF, 3016-3 ####[facility] LABCLIA [id number] [place] [address] [place] VLDL CHOLESTEROL, NF 30 mg/dL High <30 [facility] Comment on above: Order Comment: Speci men Type: BLOOD SPECIMENOrdering Facility: [facility] Address: [address] [place] [address] Performed By: #### 2 4321-2, LIPNF, 3016-3 ####[facility] LABCLIA [id number] [place] [address] [place] TSH SerPl-aCncon 02-08-2024 TSH Qn 1.140 m[IU]/L Normal 0.270-4.20 0 [facility] Comment on above: Order Comment: Speci men Type: BLOOD SPECIMENOrdering Facility: [facility] Address: [address] [place] [address] Performed By: #### 2 4321-2, LIPNF, 6-3 ####[facility] LABIA [id number] [place] [id number] [place] [id number] 01-21-2024 [id number] HNO ID: [id number] Author: QUOC MCCRACKEN PT Service: ? Author Type: Physical Therapist Type: [id number] Filed: 01/21/2024 15:36 Note Text: [facility] Physical Therapy Plan of Care Certification Patient Name: Michael Velazquez : 1955 [facility] #: [id number] Date: 01/21/2024 To: Remy Perez MD From [...] myelopathy or radiculopathy PLAN OF CARE: Assessment: Michael Velazquez presents with chief complaint of LBP [...] Planned: 8 Planned Treatment Interventions: Therapeutic exercise (03931), Neuromuscular re-education (65645), Manual therapy (83438), Therapeutic activities (54763), Self-longterm management (82424), Patient/Family/Caregiver Education, Body Mechanics Training PLAN FOR [...] I have reviewed the treatment plan for Michael Velazquez, CC# [id number] for the period of 01/21/24 -- 02/25/24, established on 01/21/2024. Signature certifies the need for therapy services. Normal [facility] CNTHERAPYon 01-21-2024 CNTHERAPY OT/PT/Speech Visit ( PTWS) CAROLINEMICHAEL ([id number]) 1955 F Date Time Provider Department 01/21/24 2:00 PM QUOC MCCRACKEN PTWS Date Time Provider Department Center 01/21/2024 2:00 PM [id number], COREY PTWS Sonido Ventura Reason for Visit: [...] cream Apply to affected area twice daily. Plastics Production Machine Operator: Therapy (PT/OT/Speech/Resp) ID: [id number] 01/21/2024 2:56 PM Author: QUOC MCCRACKEN Signed by QUOC MCCRACKEN PT on 01/21/2024 at 2:56 PM Document text: Program_ID:[id number] Access Code: [email or web address] URL: [email or web address]/ Date: 01-21-2024 Prepared By: Quoc Mccracken Program [...] - 4 sets - 10 reps Normal [facility] THERAPY NTon 01-21-2024 THERAPY NT HNO ID: [id number] Author: QUOC MCCRACKEN PT Service: ? Author Type: Physical Therapist Type: Therapy (PT/OT/Speech/Resp) Filed: 01/21/2024 14:56 Note Text: Program_ID:[id number] Access Code: [email or web address] URL: [email or web address] Date: 01-21-2024 Prepared By: Quoc Mccracken Program [...] - 4 sets - 10 reps Normal [facility] CNPNon 12-17-2023 CNPN Telephone (FAMPWS) MICHAEL VELAZQUEZ ([id number]) 1955 F Date Time Provider Department 12/17[facility] visit today, we recorded the [...] 11/01/2021 Elevated blood sugar [R73.9] 11/19/2021 Positive FELICIA (antinuclear antibody) [R76.8] 11/21/2021 Left upper extremity [...] Osteopenia, senile [M85.80] 08/26/2023 Encounter Status:Closed by [place] on 12/22/23 Normal [facility] MR Lumbar spine WO contrasto n [...] and assume there are 5 lumbar-type vertebrae. Tank Tender: SAM Transcribe Date/Time: Dec 17 2023 9:04A Dictated by : REG BARDALES MD This examination was interpreted and the report reviewed and electronically signed by: REG BARDALES MD on Dec 17 2023 9:07AM [facility] DIVISION OF RADIOLOGY * * *Final Report* * * DATE OF EXAM: Dec 17 2023 8:57AM [facility] 0303 - MRI LUMBAR SPINE WO IVCON [...] S3 Tarlov cysts. DIVISION OF RADIOLOGY Provider, Doron Lugo [facility] - 12/17/2023 * * *Final Report* * [...] and assume there are 5 lumbar-type vertebrae. Tank Tender: PSCB Transcribe Date/Time: Dec 17 2023 9:04A Dictated by : REG BARDALES MD This examination was interpreted and the report reviewed and electronically signed by: REG BARDALES MD on Dec 17 2023 9:07AM EST [facility] Radiology Study observation (narrative) [facility] MR Lumbar spine WO contrastO rdered By: Ccf Provider on 12-17-2023 [facility] MRI LUMBAR SPINE WO IVCONon 12-17-2023 MRI LUMBAR SPINE WO IVCON * * *Final Report* * * DATE OF EXAM: Dec 17 2023 8:57AM [facility] 0303 - MRI LUMBAR SPINE WO IVCON [...] and assume there are 5 lumbar-type vertebrae. [facility] Transcribe Date/Time: Dec 17 2023 9:04A Dictated by : REG BARDALES MD This examination was interpreted and the report reviewed and electronically signed by: REG BARDALES MD on Dec 17 2023 9:07AM EST [id number] Normal [facility] CNOVon 11-19-2023 CNOV Office Visit (FAMPWS ) MICHAEL VELAZQUEZ ([id number]) 1955 F Date Time Provider Department 11/19/23 3:20 PM AZIZA THOMPSON FAMPWS During your visit today, we recorded the following information about you: Temperature Pulse Respiration Blood pressure 99.2 degrees 72/minute 16/minute 106/76 Weight 53.1 kg Aziza Thompson PA-C 11/19/2023 3:39 PM Signed Chief Complaint Patient presents with: Back Pain: On going has been getting worse HPI Michael Velazquez is a 67 year old female [...] on 05/20/2024 Covid-19 Vaccine( season) due on 07/22/2024 Influenza Vaccine(1) due on 12/20/2023 Depression Screening due on 07/22/2024 Anxiety Screening due on 07/22/2024 BP Controlled (<130/80) due on 07/22/2024 Annual PCP Team Chronic Disease Visit due on 08/25/2024 Diabetes Screening due on 08/02/2026 Colorectal Cancer Screening due on 01/23/2028 Lipid Screening due on 07/23/2028 Bone Density Screening Completed Advance Directive Discussion Completed (more content not included)... Normal [facility] COVID & INFLUENZA A/B & RSV NAAT, ROUTINEon 04-08-2023 FLUAV RNA EZEQUIEL+probe Ql (Unsp spec) Not detected Not Detected [facility] FLUBV RNA EZEQUIEL+probe Ql (Unsp spec) Not detected Not Detected [facility] RSV A RNA EZEQUIEL+probe Ql (Unsp spec) Detected Abnormal Not Detected [facility] SARS-CoV-2 (COVID-19) RNA EZEQUIEL+probe Ql (Resp) Not detected See comment [facility] XR CHEST 2V FRONTAL/LATon [facility] XR Chest PA and Lateralon IMPRESSION: No acute radiographic abnormality. Tank Tender: PSCB Transcribe Date/Time: Apr 08 2023 11:49A Dictated by : TOYA DEL VALLE MD This examination was interpreted and the report reviewed and electronically signed by: TOYA DEL VALLE MD on Apr 08 2023 11:50AM [facility] DIVISION OF RADIOLOGY * * *Final Report* [...] cervical spinal fusion. DIVISION OF RADIOLOGY Provider, [facility] - 04/08/2023 * * *Final Report* * [...] fusion. IMPRESSION IMPRESSION: No acute radiographic abnormality. Tank Tender: SAM Transcribe Date/Time: Apr 08 2023 11:49A Dictated by : TOYA DEL VALLE MD This examination was interpreted and the report reviewed and electronically signed by: TOYA DEL VALLE MD on Apr 08 2023 11:50AM EST [facility] Radiology Study observation (narrative) [facility] XR Chest PA and LateralOrder ed By: Ccf Provider on 04-08-2023 [facility] XR KNEE GENERAL 4V AP BOTH/P A BOTH/LAT/MERC BILATERALon 02-11-2023 [facility] XR Knee - bilateral 4 Viewso n 02-11-2023 IMPRESSION: No acute osseous abnormality. Small bilateral joint effusions. Tank Tender[facility] Transcribe Date/Time: Feb 11 2023 2:01P Dictated by : QUINTEN MORE DO This examination was interpreted and the report reviewed and electronically signed by: QUINTEN MORE DO on Feb 11 2023 2:03PM [facility] DIVISION OF RADIOLOGY * * *Final Report* [...] effusions. No fracture. DIVISION OF RADIOLOGY Provider, [facility] - 02/11/2023 * * *Final Report* * [...] acute osseous abnormality. Small bilateral joint effusions. Tank Tender: PSCB Transcribe Date/Time: Feb 11 2023 2:01P Dictated by : QUINTEN MORE DO This examination was interpreted and the report reviewed and electronically signed by: QUINTEN MORE DO on Feb 11 2023 2:03PM EST [facility] Radiology Study observation (narrative) [facility] XR Knee - bilateral 4 ViewsO rdered By: Ccf Provider on 02-11-2023 [facility] SURGICAL PATHOLOGYon 023 Case Report Surgical Pathology R eport Case: [id number] Authorizing Provider: Hugh Cole MD Collected: 01/22/2023 01:15 PM Ordering Location: Ambulatory Surgery Received: 01/22/2023 03:01 PM Pathologist: Stacey Hunt MD Specimen: SIGMOID COLON BIOPSY [facility] FINAL DIAGNOSIS Sigmoid colon polyp, biopsy: - Hyperplastic polyp. [facility] Gross Description A. SIGMOID COLON BIO PSY Received in formalin are two pieces of hernandez-brown, soft tissue aggregating to 0.7 x 0.2 x 0.2 cm. Totally submitted in one cassette. Gross examination performed at [facility], [facility] [place] [address] KK January 23, 2023 1:24 AM [facility] Performing Lab Diagnostic interpret ation performed at [facility], [facility] [place] [id number] CLIA# [id number] Manager Contract: Syed Gomes M.D. [facility] COLONOSCOPY SCREENINGon 100 [facility] CBC W Auto Differential pane l (Bld)on 12-24-2022 Basophils (Bld) [#/Vol] 0.07 10*3/uL <0.11 k/uL [facility] Basophils/100 WBC (Bld) 1.4 % [facility] Differential cell count method Nom (Bld) Auto [facility] Eosinophils (Bld) [#/Vol] 0.09 10*3/uL <0.46 k/uL [facility] Eosinophils/100 WBC (Bld) 1.8 % [facility] Erythrocyte distribution width (RBC) [Ratio] 12.0 % 11.5 - 15.0 % [facility] Hematocrit (Bld) [Volume fraction] 38.4 % 36.0 - 46.0 % [facility] Hemoglobin (Bld) [Mass/Vol] 12.9 g/dL 11.5 - 15.5 g/dL [facility] Immature granulocytes (Bld) [#/Vol] <0.10 k/uL [facility] Immature granulocytes/100 WBC (Bld) 0.2 % [facility] Lymphocytes (Bld) [#/Vol] 1.42 10*3/uL 1.00 - 4.00 k/uL [facility] Lymphocytes/100 WBC (Bld) 27.8 % [facility] MCH (RBC) [Entitic mass] 31.2 pg 26.0 - 34.0 pg [facility] MCHC (RBC) [Mass/Vol] 33.6 g/dL 30.5 - 36.0 g/dL [facility] MCV (RBC) [Entitic vol] 93.0 fL 80.0 - 100.0 fL [facility] Monocytes (Bld) [#/Vol] 0.49 10*3/uL <0.87 k/uL [facility] Monocytes/100 WBC (Bld) 9.6 % [facility] Neutrophils (Bld) [#/Vol] 3.03 10*3/uL 1.45 - 7.50 k/uL [facility] Neutrophils/100 WBC (Bld) 59.2 % [facility] Nucleated RBC (Bld) [#/Vol] <0.01 k/uL [facility] Nucleated RBC/100 WBC (Bld) [Ratio] 0.0 /100 WBC [facility] Platelet mean volume (Bld) [Entitic vol] 11.2 fL 9.0 - 12.7 fL [facility] Platelets (Bld) [#/Vol] 190 10*3/uL 150 - 400 k/uL [facility] RBC (Bld) [#/Vol] 4.13 10*6/uL 3.90 - 5.20 m/uL [facility] WBC (Bld) [#/Vol] 5.11 10*3/uL 3.70 - 11.00 k/uL [facility] HbA1c (Bld)on 12-24-2022 Average glucose Estimated from glycated hemoglobin (Bld) [Mass/Vol] 100 mg/dL [facility] HbA1c (Bld) [Mass fraction] 5.1 % 4.3 - 5.6 % [facility] XR Lumbar spine 3 Viewson IMPRESSION: MILD DEGENERATIVE CHANGE AND SCOLIOSIS Tank Tender: SAM Transcribe Date/Time: Jul 17 2022 11:05A Dictated by : SOUMYA RUVALCABA MD This examination was interpreted and the report reviewed and electronically signed by: SOUMYA RUVALCABA MD on Jul 17 2022 11:08AM [facility] DIVISION OF RADIOLOGY * * *Final Report* [...] to inferior L4 DIVISION OF RADIOLOGY Provider, [facility] Brittney [facility] - 07/17/2022 * * *Final Report* * [...] IMPRESSION IMPRESSION: MILD DEGENERATIVE CHANGE AND SCOLIOSIS Tank Tender: [facility] Transcribe Date/Time: Jul 17 2022 11:05A Dictated by : SOUMYA RUVALCABA MD This examination was interpreted and the report reviewed and electronically signed by: SOUMYA RUVALCABA MD on Jul 17 2022 11:08AM EST [facility] XR Lumbar spine 3 ViewsOrder ed By: Ccf Provider on 07-17-2022 [facility] XR Lumbar spine 3 Viewson Radiology Study observation (narrative) [facility] XR Shoulder - right 3 Viewso n 07-03-2022 IMPRESSION: Question able subluxation of the acromioclavicular joint, with mild degenerative changes. Tank Tender: [facility] Transcribe Date/Time: Jul 03 2022 8:36A Dictated by : TOYA DEL VALLE MD This examination was interpreted and the report reviewed and electronically signed by: TOYA DEL VALLE MD on Jul 03 2022 8:39AM [facility] DIVISION OF RADIOLOGY * * *Final Report* [...] cervical spinal fusion. DIVISION OF RADIOLOGY Provider, Doron Lugo [facility] - 07/03/2022 * * *Final Report* * [...] the acromioclavicular joint, with mild degenerative changes. Tank Tender: SAM Transcribe Date/Time: Jul 03 2022 8:36A Dictated by : TOYA DEL VALLE MD This examination was interpreted and the report reviewed and electronically signed by: OTYA DEL VALLE MD on Jul 03 2022 8:39AM EST [facility] XR Shoulder - right 3 ViewsO rdered By: Ccf Provider on 07-03-2022 [facility] XR Shoulder - right 3 Viewso n 07-01-2022 Radiology Study observation (narrative) [facility] Absolute lymphocyte countOrd ered By: Chanel Mcconnell on 06-29-2022 Lymphocytes Auto (Unsp spec) [#/Vol] 1.28 10*3/uL 0.83-4.51 [facility] Basophil percentageOrdered B y: Chanel Mcconnell on 06-29-2022 Basophils/100 WBC (Bld) 1.0 % 0-1 [facility] Chloride [Moles/Vol] 107 mmol/L 98-107 [facility] Eosinophils/100 WBC (Bld) 0.9 % 0-5 [facility] Glucose [Mass/Vol] 104 mg/dL 74-106 [facility] Comment on above: Fasting Glucose resu lt from 100 to 125 mg/dL suggests IMPAIRED HOMEOSTASIS per A.D.A. criteria. Neutrophils (Bld) [#/Vol] 5.9 10*3/uL 2.0-7.7 [facility] Neutrophils/100 WBC (Bld) 75.1 % 47-70 [facility] Potassium [Moles/Vol] 3.7 mmol/L 3.5-5.1 [facility] Sodium [Moles/Vol] 145 mmol/L 136-145 [facility] WBC (Bld) [#/Vol] 7.9 10*3/uL 4.4-11.0 [facility] Blood erythrocytes count (nu mber/volume)Ordered By: Chanel Mcconnell on 06-29-2022 RBC (Bld) [#/Vol] 4.13 10*6/uL 4.2-5.4 [facility] Blood hemoglobin measurement (mass/volume)Ordered By: Chanel Mcconnell on 06-29-2022 Hemoglobin (Bld) [Mass/Vol] 13.0 g/dL 12.0-15.0 [facility] Blood lymphocytes/100 leukoc ytesOrdered By: Chanel Mcconnell on 06-29-2022 Lymphocytes/100 WBC (Bld) 16.2 % 19-41 [facility] Blood monocytes/100 leukocyt esOrdered By: Chanel Mcconnell on 06-29-2022 Monocytes/100 WBC (Bld) 5.9 % 0-10 [facility] Blood platelet mean volumeOr dered By: Chanel Mcconnell on 06-29-2022 Platelet mean volume (Bld) [Entitic vol] 10.0 fL 6.2-12.0 [facility] Determination of erythrocyte mean corpuscular volume (MCV)Ordered By: Chanel Mcconnell on 06-29-2022 MCV (RBC) [Entitic vol] 92.7 fL 81-99 [facility] Hematocrit Auto (Bld) [Volum e fraction]Ordered By: Chanel Mcconnell on 06-29-2022 Hematocrit (Bld) [Volume fraction] 38.3 % 37-47 [facility] Laboratory - Chemistry and C hemistry - challengeOrdered By: Chanel Mcconnell on 06-29-2022 CO2 [Moles/Vol] 30.0 mmol/L 21.0-32.0 [facility] Urea nitrogen/Creatinine [Mass ratio] 12.6 mg/mg 10-20 [facility] Laboratory - Hematology and Cell countsOrdered By: Chanel Mcconnell on 06-29-2022 Erythrocyte distribution width (RBC) [Entitic vol] 41.6 fL 35.1-43.9 [facility] Erythrocyte distribution width (RBC) [Ratio] 12.2 % 11.6-14.6 [facility] Immature granulocytes/100 WBC (Bld) 0.900 % 0.0-0.9 [facility] Comment on above: IG% - Immature Granu locytes (promyelocytes, myelocytes and metamyelocytes) > 1% indicates that a LEFT SHIFT is Present. MCH (RBC) [Entitic mass] 31.5 pg 27.0-32.0 [facility] Nucleated RBC/100 WBC (Bld) [Ratio] 0 % 0-5 [facility] MCHC Auto (RBC) [Mass/Vol]Or dered By: Chanel Mcconnell on 06-29-2022 MCHC (RBC) [Mass/Vol] 33.9 g/dL 32-36 [facility] No Panel InformationOrdered By: Chanel Mcconnell on 06-29-2022 Estimated Creatinine Clearance Calc 46.69 ml/min [facility] Estimated GFR (MDRD) Amer 75 mL/min >60 [facility] Comment on above: GFR Calc Estimated GFR (MDRD) Non-Af Amer 62 mL/min >60 [facility] Comment on above: Non- GFR Calc Platelets bldOrdered By: Zack Mcconnell on 06-29-2022 Platelets (Bld) [#/Vol] 231 10*3/uL 150-450 [facility] Serum or plasma calcium perez urement (mass/volume)Ordered By: Chanel Mcconnell on 06-29-2022 Calcium [Mass/Vol] 8.9 mg/dL 8.5-10.1 [facility] Serum or plasma creatinine m easurement (mass/volume)Ordered By: Chanel Mcconnell on 06-29-2022 Creatinine [Mass/Vol] 0.95 mg/dL 0.55-1.02 [facility] Comment on above: The validity of the calculated GFR & GFRAA in patients over 70 years has not been determined. Clinical correlation is essential. Serum or plasma urea nitroge n measurement (mass/volume)Ordered By: Chanel Mcconnell on 06-29-2022 Urea nitrogen [Mass/Vol] 12 mg/dL 7-18 [facility] Thin prep Papanicolaou smear with manual screeningOrdered By: Chanel Mcconnell on 06-29-2022 Thin prep Papanicolaou smear with manual screening 8 5-15 [facility] XR Knee - bilateral 4 Viewso n 06-23-2022 IMPRESSION: Mild degenerative changes Tank Tender: SAM Transcribe Date/Time: Jun 23 2022 5:54A Dictated by : MORE CLEARY MD This examination was interpreted and the report reviewed and electronically signed by: MORE CLEARY MD on Jun 23 2022 5:56AM [facility] DIVISION OF RADIOLOGY * * *Final Report* * * DATE OF EXAM: Jun 19 2022 1:20PM WOX [id number] - XR KNEE 4V AP/PA/LAT/MERCH MARIBEL / PROCEDURE REASON: Positive FELICIA (antinuclear antibody) * * * * Physician [...] No osseous erosion. DIVISION OF RADIOLOGY Provider, [facility] Brittney g Wheeler - 06/23/2022 * * *Final Report* * * DATE OF EXAM: Jun 19 2022 1:20PM WOX [id number] - XR KNEE 4V AP/PA/LAT/MERCH MARIBEL / PROCEDURE REASON: Positive FELICIA (antinuclear antibody) * * * * Physician [...] osseous erosion. IMPRESSION IMPRESSION: Mild degenerative changes Tank Tender: SAM Transcribe Date/Time: Jun 23 2022 5:54A Dictated by : MORE CLEARY MD This examination was interpreted and the report reviewed and electronically signed by: MORE CLEARY MD on Jun 23 2022 5:56AM EST [facility] XR Knee - bilateral 4 ViewsO rdered By: [facility] Provider on 06-23-2022 [facility] No Panel Informationon 06-19 Radiology Study observation (narrative) [facility] XR Pelvis and Hip - left AP and Lateral frogon 06-19-2022 IMPRESSION: No acute pathology. Tank Tender: SAM Transcribe Date/Time: Jun 19 2022 4:22P Dictated by : KAY CONNORS DO This examination was interpreted and the report reviewed and electronically signed by: KAY CONNORS DO on Jun 19 2022 4:22PM [facility] DIVISION OF RADIOLOGY * * *Final Report* * * DATE OF EXAM: Jun 19 2022 1:20PM WOX 5351 - XR HIP 3V PELV+ AP/LAT LT / PROCEDURE REASON: Positive FELICIA (antinuclear antibody) * * * * Physician Interpretation * * * * Pelvis and left hip HISTORY: Indication: Positive FELICIA (antinuclear antibody) TECHNIQUE: Images: XR HIP 3V PELV+ AP/LAT LT Comparison: None. RESULT: Findings: Pelvis: No fractures or dislocations are seen. Left hip: No fractures or dislocations are seen. DIVISION OF RADIOLOGY Provider, Doron Mendez - 06/19/2022 * * *Final Report* * * DATE OF EXAM: Jun 19 2022 1:20PM WOX 5351 - XR HIP 3V PELV+ AP/LAT LT / PROCEDURE REASON: Positive FELICIA (antinuclear antibody) * * * * Physician Interpretation * * * * Pelvis and left hip HISTORY: Indication: Positive FELICIA (antinuclear antibody) TECHNIQUE: Images: XR HIP 3V PELV+ AP/LAT LT Comparison: None. RESULT: Findings: Pelvis: No fractures or dislocations are seen. Left hip: No fractures or dislocations are seen. IMPRESSION IMPRESSION: No acute pathology. Tank Tender: SAM Transcribe Date/Time: Jun 19 2022 4:22P Dictated by : KAY CONNORS DO This examination was interpreted and the report reviewed and electronically signed by: KAY CONNORS DO on Jun 19 2022 4:22PM EST [facility] CT PELVIS WO IVCONon 023 [facility] XR Lumbar spine 3 ViewsOrder ed By: [facility] Provider on 05-18-2022 Interpretation and review of laboratory results Abnormal [facility] Radiology Result ACTIONABLE Abnormal [facility] Comment on above: This report contains [...] contact your provider for the next steps. [facility] XR Lumbar spine 3 Viewson IMPRESSION: Suggestion [...] be communicated with the ordering provider via Q-Bot staff message or phone message by Imaging Support Services within 2 business days of report finalization. ========= Algorithms for management of incidental imaging findings can be found on the [facility] Intranet Sharepoint site at: [email or web address]/document ation/mychartlinks/Managing %20Incidental%20Findi ngs%20at%20Imaging/Forms/Al lItems.aspx Tank Tender: SAM Transcribe Date/Time: May 18 2022 8:35P Dictated by : KAY CONNORS DO This examination was interpreted and the report reviewed and electronically signed by: KAY CONNORS DO on May 18 2022 8:39PM [facility] DIVISION OF RADIOLOGY * * *Final Report* [...] dislocations are seen. DIVISION OF RADIOLOGY Provider, [facility] - 05/18/2022 * * *Final Report* * [...] be communicated with the ordering provider via Q-Bot staff message or phone message by [facility] within 2 business days of report finalization. ========= Algorithms for management of incidental imaging findings can be found on the [facility] Intranet Sharepoint site at: http://spo.[email or web address]/document ation/mychartlinks/Managing %20Incidental%20Findi ngs%20at%20Imaging/Forms/Al lItems.aspx Tank Tender: SAM Transcribe Date/Time: May 18 2022 8:35P Dictated by : KAY CONNORS DO This examination was interpreted and the report reviewed and electronically signed by: KAY CONNORS DO on May 18 2022 8:39PM EST [facility] XR Lumbar spine 3 Viewson Radiology Study observation (narrative) [facility] CBC W Auto Differential pane l (Bld)on 01-27-2022 Abs Immature Gran <0.10 k/uL [facility] Basophils (Bld) [#/Vol] 0.07 10*3/uL <0.11 k/uL [facility] Basophils/100 WBC (Bld) 1.3 % [facility] Differential cell count method Nom (Bld) Auto [facility] Eosinophils (Bld) [#/Vol] 0.11 10*3/uL <0.46 k/uL [facility] Eosinophils/100 WBC (Bld) 2.1 % [facility] Erythrocyte distribution width (RBC) [Ratio] 12.3 % 11.5 - 15.0 % [facility] Hematocrit (Bld) [Volume fraction] 38.9 % 36.0 - 46.0 % [facility] Hemoglobin (Bld) [Mass/Vol] 12.8 g/dL 11.5 - 15.5 g/dL [facility] Immature Gran % 0.2 % [facility] Lymphocytes (Bld) [#/Vol] 1.45 10*3/uL 1.00 - 4.00 k/uL [facility] Lymphocytes/100 WBC (Bld) 27.3 % [facility] MCH (RBC) [Entitic mass] 30.8 pg 26.0 - 34.0 pg [facility] MCHC (RBC) [Mass/Vol] 32.9 g/dL 30.5 - 36.0 g/dL [facility] MCV (RBC) [Entitic vol] 93.7 fL 80.0 - 100.0 fL [facility] Monocytes (Bld) [#/Vol] 0.43 10*3/uL <0.87 k/uL [facility] Monocytes/100 WBC (Bld) 8.1 % [facility] Neutrophils (Bld) [#/Vol] 3.24 10*3/uL 1.45 - 7.50 k/uL [facility] Neutrophils/100 WBC (Bld) 61.0 % [facility] Nucleated RBC (Bld) [#/Vol] <0.01 k/uL [facility] Nucleated RBC/100 WBC (Bld) [Ratio] 0.0 /100 WBC [facility] Platelet mean volume (Bld) [Entitic vol] 11.0 fL 9.0 - 12.7 fL [facility] Platelets (Bld) [#/Vol] 196 10*3/uL 150 - 400 k/uL [facility] RBC (Bld) [#/Vol] 4.15 10*6/uL 3.90 - 5.20 m/uL [facility] WBC (Bld) [#/Vol] 5.31 10*3/uL 3.70 - 11.00 k/uL [facility] Comprehensive metabolic 2000 panelon 01-27-2022 Albumin [Mass/Vol] 4.7 g/dL 3.9 - 4.9 g/dL [facility] ALP [Catalytic activity/Vol] 68 U/L 34 - 123 U/L [facility] ALT [Catalytic activity/Vol] 23 U/L 7 - 38 U/L [facility] Anion gap [Moles/Vol] 11 mmol/L 9 - 18 mmol/L [facility] AST [Catalytic activity/Vol] 22 U/L 13 - 35 U/L [facility] Bilirubin [Mass/Vol] 0.4 mg/dL 0.2 - 1.3 mg/dL [facility] Calcium [Mass/Vol] 9.4 mg/dL 8.5 - 10. 2 mg/dL [facility] Chloride [Moles/Vol] 103 mmol/L 97 - 105 mmol/L [facility] CO2 [Moles/Vol] 26 mmol/L 22 - 30 mmol/L [facility] Creatinine [Mass/Vol] 0.89 mg/dL 0.58 - 0.96 mg/dL [facility] Estimated Glomerular Filtration Rate 72 mL/min/1.73m >=60 mL/min/1.7 3m [facility] Glucose [Mass/Vol] 83 mg/dL 74 - 99 mg/dL [facility] Potassium [Moles/Vol] 4.3 mmol/L 3.7 - 5.1 mmol/L [facility] Protein [Mass/Vol] 7.0 g/dL 6.3 - 8.0 g/dL [facility] Sodium [Moles/Vol] 140 mmol/L 136 - 144 mmol/L [facility] Urea nitrogen [Mass/Vol] 11 mg/dL 7 - 21 mg/dL [facility] HbA1c (Bld)on 01-27-2022 Average glucose Estimated from glycated hemoglobin (Bld) [Mass/Vol] 103 mg/dL [facility] HbA1c (Bld) [Mass fraction] 5.2 % 4.3 - 5.6 % [facility] LIPID PANEL, NONFASTINGon Cholesterol [Mass/Vol] 249 mg/dL High <200 mg/dL [facility] HDL Cholesterol, Nonfasting 56 mg/dL >39 mg/dL [facility] LDL Cholesterol, Nonfasting 166 mg/dL High <100 mg/dL [facility] LDL/HDL Ratio, Nonfasting 2.96 mg/dL High <2.54 mg/dL [facility] Non HDL Cholesterol, Nonfasting 193 mg/dL High <130 mg/dL [facility] Total Chol/HDL Ratio, Nonfasting 4.45 mg/dL <5.10 mg/dL [facility] Triglycerides, Nonfasting 136 mg/dL <150 mg/dL [facility] VLDL Cholesterol, Nonfasting 27 mg/dL <30 mg/dL [facility] TSH BLDon 01-27-2022 TSH Qn 1.850 m[IU]/L 0.270 - 4.200 mIU/L [facility] Urinalysis complete panel (U )on 01-27-2022 Bilirubin Ql (U) Negative Negative [facility] Clarity (Unsp spec) Clear Clear [facility] Color (U) Straw Yellow [facility] Glucose Test strip (U) [Mass/Vol] Negative Negative [facility] Hemoglobin Ql (U) 1+ Abnormal Negative [facility] Ketones Ql (U) Negative Negative [facility] Leukocyte esterase Test strip Ql (U) Negative Negative [facility] Nitrite Ql (U) Negative Negative [facility] pH (U) 6.0 [pH] 5.0 - 8.0 [facility] Protein (U) [Mass/Vol] Negative Negative [facility] RBC LM.HPF (Urine sed) [#/Area] 0-3 /HPF 0-3 /HPF [facility] Specific gravity (U) [Rel density] 1.004 Low 1.005 - 1.030 [facility] Urobilinogen Ql (U) Negative Negative [facility] WBC LM.HPF (Urine sed) [#/Area] 0-5 /HPF 0-5 /HPF [facility] LEONORA SCREENINGon 01-15-2022 [facility] SCREENING * * *Final Report* * * DATE OF EXAM: Jan 15 2022 3:23PM RAY Mcclure81 - [facility] SCREENING / PROCEDURE REASON: Z.-Encounter for screening mammogram for breast cancer * * * * Physician Interpretation * * * * #[id number] - [facility] SCREENING BILATERAL DIGITAL SCREENING MAMMOGRAM WITH CAD: [...] A 1 year screening mammogram is recommended. Maddi shepherd/sherlyn:01/15/2022 15:29:44 [employer] Worker(s): Nadine Umanzor [facility] letter sent: Normal over 40 Mammogram BI-RADS: [...] Health, Family Medicine, and Medical/Surgical Oncology, the [facility] has carefully reviewed the data and reached [...] their providers when to stop screening mammograms. Tank Tender: Sherlyn Transcribe Date/Time: Jan 15 2022 3:08P Dictated by : MADDI STAFFORD MD This examination was interpreted and the report reviewed and electronically signed by: MDADI STAFFORD MD on Jan 15 2022 3:29PM EST [id number] Normal [facility] XR Hand - left PA and Latera l and Obliqueon 11-22-2021 IMPRESSION: Osteoarthrosis. No acute osseous abnormality identified. Tank Tender: SAM Transcribe Date/Time: Nov 22 2021 4:25P [...] abnormality identified. ZZZ_DO_NOT_USE _DIVISION OF RADIOLOGY Provider, [facility] - 11/22/2021 * * *Final Report* * [...] IMPRESSION: Osteoarthrosis. No acute osseous abnormality identified. Tank Tender: [employer] Transcribe Date/Time: Nov 22 2021 4:25P Dictated by : PAWAN GARDINER MD This examination was interpreted and the report reviewed and electronically signed by: PAWAN GARDINER MD on Nov 22 2021 4:27PM EST [facility] XR Hand - left PA and Latera l and ObliqueOrdered By: [facility] Provider on 11-22-2021 [facility] C-REACTIVE PROTEIN (CRP)on 0 11-21-2021 CRP [Mass/Vol] mg/L <0.9 mg/dL [facility] RHEUMATOID FACTOR BLon 11-21 Rheumatoid factor Qn [IU]/mL <16 IU/mL [facility] TSH BLDon 11-21-2021 TSH Qn 3.610 m[IU]/L 0.270 - 4.200 mIU/L [facility] XR Hand - left PA and Latera l and Obliqueon 11-21-2021 Radiology Study observation (narrative) [facility] XR Cervical spine AP and Lat eral and obliqueon 11-04-2021 IMPRESSION: Postoper ative and degenerative changes as detailed in report. Tank Tender: PSCB Transcribe Date/Time: Nov 04 2021 6:09P Dictated by : SIMRAN OZUNA MD This examination was interpreted and the report reviewed and electronically signed by: SIMRAN OZUNA MD on Nov 04 2021 6:12PM EST GRACIE_DO_NOT_USE _DIVISION OF RADIOLOGY * * *Final Report* [...] relevant examinations available for comparison within the [facility] Imaging Archives. RESULT: 4 views of the [...] tissue abnormality. ZZZ_DO_NOT_USE _DIVISION OF RADIOLOGY Provider, [facility] Brittney [facility] - 11/04/2021 * * *Final Report* * [...] relevant examinations available for comparison within the [facility] Imaging Archives. RESULT: 4 views of the [...] and degenerative changes as detailed in report. Tank Tender: PSCB Transcribe Date/Time: Nov 04 2021 6:09P Dictated by : SIMRAN OZUNA MD This examination was interpreted and the report reviewed and electronically signed by: SIMRAN OZUNA MD on Nov 04 2021 6:12PM EST [facility] Radiology Study observation (narrative) [facility] XR Cervical spine AP and Lat eral and obliqueOrdered By: Ccf Provider on 11-04-2021 [facility] Absolute lymphocyte counton 10-12-2021 Lymphocytes Auto (Unsp spec) [#/Vol] 0.46 10*3/uL 0.83-4.51 [facility] Work Phone: Basophil percentageon 2021 Basophils/100 WBC (Bld) 0.4 % 0-1 [facility] Work Phone: Bilirubin [Mass/Vol] 0.30 mg/dL 0.20-1.00 [facility] Work Phone: Comment on above: For patients on eltr ombopag therapy, use of Dimension Jayess TBIL is not recommended. Chloride [Moles/Vol] 101 mmol/L 98-107 [facility] Work Phone: Eosinophils/100 WBC (Bld) 0.0 % 0-5 [facility] Work Phone: Glucose [Mass/Vol] 115 mg/dL 74-106 [facility] Work Phone: Comment on above: Fasting Glucose resu lt from 100 to 125 mg/dL suggests IMPAIRED HOMEOSTASIS per A.D.A. criteria. Neutrophils (Bld) [#/Vol] 3.7 10*3/uL 2.0-7.7 [facility] Work Phone: Neutrophils/100 WBC (Bld) 76.7 % 47-70 [facility] Work Phone: Potassium [Moles/Vol] 3.6 mmol/L 3.5-5.1 [facility] Work Phone: Comment on above: Slight Hemolysis, Re sult may be falsely increased. Protein [Mass/Vol] 7.4 g/dL 6.4-8.2 [facility] Work Phone: Sodium [Moles/Vol] 134 mmol/L 136-145 [facility] Work Phone: WBC (Bld) [#/Vol] 4.9 10*3/uL 4.4-11.0 [facility] Work Phone: Blood erythrocytes count (nu mber/volume)on 10-12-2021 RBC (Bld) [#/Vol] 4.28 10*6/uL 4.2-5.4 [facility] Work Phone: Blood hemoglobin measurement (mass/volume)on 10-12-2021 Hemoglobin (Bld) [Mass/Vol] 13.5 g/dL 12.0-15.0 [facility] Work Phone: Blood lymphocytes/100 leukoc yteson 10-12-2021 Lymphocytes/100 WBC (Bld) 9.5 % 19-41 [facility] Work Phone: Blood manual differential co mment interpretation (narrative result)on 10-12-2021 Manual differential comment Sergio (Bld) [Interp] SCANNED [facility] Work Phone: Comment on above: LYMPHOPENIA NOTED Blood monocytes/100 leukocyt eson 10-12-2021 Monocytes/100 WBC (Bld) 12.8 % 0-10 [facility] Work Phone: Blood platelet mean volumeon 10-12-2021 Platelet mean volume (Bld) [Entitic vol] 10.7 fL 6.2-12.0 [facility] Work Phone: Determination of erythrocyte mean corpuscular volume (MCV)on 10-12-2021 MCV (RBC) [Entitic vol] 93.0 fL 81-99 [facility] Work Phone: Direct bilirubinon 2 Bilirubin.direct [Mass/Vol] 0.14 mg/dL 0.00-0.30 [facility] Work Phone: Hematocrit Auto (Bld) [Volum e fraction]on 10-12-2021 Hematocrit (Bld) [Volume fraction] 39.8 % 37-47 [facility] Work Phone: Laboratory - Chemistry and C hemistry - challengeon 10-12-2021 ALP [Catalytic activity/Vol] 74 U/L 45-117 [facility] Work Phone: ALT [Catalytic activity/Vol] 26 U/L 13-56 [facility] Work Phone: CO2 [Moles/Vol] 24.0 mmol/L 21.0-32.0 [facility] Work Phone: Globulin (S) [Mass/Vol] 3.4 g/dL 2.2-4.2 [facility] Work Phone: Urea nitrogen/Creatinine [Mass ratio] 12.3 mg/mg 10-20 [facility] Work Phone: Laboratory - Hematology and Cell countson 10-12-2021 Erythrocyte distribution width (RBC) [Entitic vol] 41.5 fL 35.1-43.9 [facility] Work Phone: Erythrocyte distribution width (RBC) [Ratio] 12.1 % 11.6-14.6 [facility] Work Phone: Immature granulocytes/100 WBC (Bld) 0.600 % 0.0-0.9 [facility] Work Phone: Comment on above: IG% - Immature Granu locytes (promyelocytes, myelocytes and metamyelocytes) > 1% indicates that a LEFT SHIFT is Present. MCH (RBC) [Entitic mass] 31.5 pg 27.0-32.0 [facility] Work Phone: Nucleated RBC/100 WBC (Bld) [Ratio] 0 % 0-5 [facility] Work Phone: MCHC Auto (RBC) [Mass/Vol]on 10-12-2021 MCHC (RBC) [Mass/Vol] 33.9 g/dL 32-36 [facility] Work Phone: No Panel Informationon 10-12 Estimated Creatinine Clearance Calc 54.82 ml/min [facility] Work Phone: Estimated GFR (MDRD) Amer 91 mL/min >60 [facility] Work Phone: Comment on above: GFR Calc Estimated GFR (MDRD) Non-Af Amer 75 mL/min >60 [facility] Work Phone: Comment on above: Non- GFR Calc Platelets bldon 10-12-2021 Platelets (Bld) [#/Vol] 181 10*3/uL 150-450 [facility] Work Phone: Serum or plasma albumin perez urement (mass/volume)on 10-12-2021 Albumin [Mass/Vol] 4.0 g/dL 3.2-5.0 [facility] Work Phone: Serum or plasma calcium perez urement (mass/volume)on 10-12-2021 Calcium [Mass/Vol] 8.3 mg/dL 8.5-10.1 [facility] Work Phone: Serum or plasma creatinine m easurement (mass/volume)on 10-12-2021 Creatinine [Mass/Vol] 0.82 mg/dL 0.55-1.02 [facility] Work Phone: Comment on above: The validity of the calculated GFR & GFRAA in patients over 70 years has not been determined. Clinical correlation is essential. Serum or plasma urea nitroge n measurement (mass/volume)on 10-12-2021 Urea nitrogen [Mass/Vol] 10 mg/dL 7-18 [facility] Work Phone: Thin prep Papanicolaou smear with manual screeningon 10-12-2021 Thin prep Papanicolaou smear with manual screening 21 U/L 15-37 [facility] Work Phone: Comment on above: Slight Hemolysis, Re sult may be falsely increased. Thin prep Papanicolaou smear with manual screening 9 5-15 [facility] Work Phone: 2018 Novel Coronavirus (COVI D-19), EZEQUIEL ([id number])Ordered By: Environmental Technology Professor on 01-11-20212018 Novel Coronavirus (COVID-19), EZEQUIEL ([id number]) Not detected Normal [facility]; [facility] Work Phone: Comment on above: This nucleic acid am plification test was developed and its performancecharacteristics determined by [employer]. Nucleic acidamplification tests include RT-PCR and TMA. [...] this assay. PATIENT NOT FASTINGP ERFORMED BY: [employer] [id number] Ion DriveRGEISINGER-[facility]WISTOWN HOSPITAL [id number] BY: [employer] [place] [id number] FELICIA (ANTINUCLEAR ANTIBODY) ( [id number])Ordered By: Environmental Technology Professor on 09-18-2020 Nuclear Ab Ql (S) Negative Normal [facility]; [facility] Work Phone: Comment on above: PATIENT NOT FASTINGP ERFORMED BY: [facility] [id number] C-REACTIVE PROTEIN ([id number])Or dered By: Environmental Technology Professor on 09-18-2020 CRP [Mass/Vol] mg/L Normal 0-10 [facility]; [facility] Work Phone: Comment on above: PATIENT NOT FASTINGP ERFORMED BY: [employer] [id number] CALCIFIDIOL ([id number]) VIT D 25 Ordered By: Environmental Technology Professor on 09-18-2020 25-hydroxyvitamin D [Mass/Vol] 40.8 ng/mL Normal 30.0-100.0 [facility]; [facility] Work Phone: Comment on above: Vitamin D deficiency has been defined by the [place] ofMedicine and an Endocrine Society practice guideline as alevel of serum 25-OH vitamin D less than 20 ng/mL (1,2).The Endocrine Society went on to further define vitamin Dinsufficiency as a level between 21 and 29 ng/mL (2).1. IOM ([place] of Medicine). 2010. Dietary reference intakes for calcium and D. [place]: The National Academies Press.2. Sofia MF, Reba NOONAN, Mindy HSIEH, et al. Evaluation, treatment, and prevention of vitamin D deficiency: an Endocrine Society clinical practice guideline. JCEM. 2010; 96(7):1911-30. PATIENT NOT FASTINGP ERFORMED BY: [employer] [id number] Patel RoadDublin [place] [id number] CBC (AUTO) ([id number])Ordered By : Environmental Technology Professor on 09-18-2020 Erythrocyte distribution width (RBC) [Ratio] 12.9 % Normal 11.7-15.4 [facility]; [facility] Internal Medicine Work Phone: Comment on above: PATIENT NOT FASTINGP ERFORMED BY: CB [facility] Wvbsxl8612 [address] RoadDublin [place] [id number] Hematocrit (Bld) [Volume fraction] 36.6 % Normal 34.0-46.6 [facility]; [facility] Work Phone: Comment on above: PATIENT NOT FASTINGP ERFORMED BY: CB [facility] Qtxwsu1821 [address] RoadDublin [place] [id number] Hemoglobin (Bld) [Mass/Vol] 12.6 g/dL Normal 11.1-15.9 [facility]; [facility] Work Phone: Comment on above: PATIENT NOT FASTINGP ERFORMED BY: CB [facility] Rlcuet5428 [address] RoadDublin [place] [id number] MCH (RBC) [Entitic mass] 31.8 pg Normal 26.6-33.0 [facility]; [facility] Work Phone: Comment on above: PATIENT NOT FASTINGP ERFORMED BY: DEBORAH [facility] Xwggei7900 [address] RoadDublin [place] [id number] MCHC (RBC) [Mass/Vol] 34.4 g/dL Normal 31.5-35.7 [facility]; [facility] Work Phone: Comment on above: PATIENT NOT FASTINGP ERFORMED BY: CB [facility] Jgaama4823 [address] RoadDublin [place] [id number] MCV (RBC) [Entitic vol] 92 fL Normal 79-97 [facility]; [facility] Work Phone: Comment on above: PATIENT NOT FASTINGP ERFORMED BY: CB [facility] Aebdhk4848 [address] RoadDublin [place] [id number] Platelets (Bld) [#/Vol] 221 10*3/uL Normal 150-450 [facility]; [facility] Work Phone: Comment on above: PATIENT NOT FASTINGP ERFORMED BY: CB [facility] Venfid1805 [address] RoadDublin [place] [id number] RBC (Bld) [#/Vol] 3.96 10*6/uL Normal 3.77-5.28 Compr ehensive Internal Medicine; [facility] Work Phone: Comment on above: PATIENT NOT FASTINGP ERFORMED BY: CB [facility] Wrqwhd5531 [address] RoadDublin [place] [id number] WBC (Bld) [#/Vol] 5.3 10*3/uL Normal 3.4-10.8 Compre hensive Internal Medicine; [facility] Work Phone: Comment on above: PATIENT NOT FASTINGP ERFORMED BY: CB [facility] Slwrxd1792 [address] RoadDublin [place] [id number] Folate (73700)Ordered By: Delfin stem Architecture Professor on 09-18-2020 Folate [Mass/Vol] 11.7 ng/mL Normal Compreh ensive Internal Medicine; [facility] Work Phone: Comment on above: A serum folate alma ntration of less than 3.1 ng/mL isconsidered to represent clinical deficiency. PATIENT NOT FASTINGP ERFORMED BY: CB [facility] Ionivp0190 [address] RoadDublin [place] [id number] METABOLIC PANEL, COMPREHENSI VE (80297)Ordered By: Environmental Technology Professor on 09-18-2020 Albumin [Mass/Vol] 4.9 g/dL Abnormal 3.8-4.8 [facility] Internal Medicine; [facility] Work Phone: Comment on above: PATIENT NOT FASTINGP ERFORMED BY: CB [facility] Aqdwul7454 [address] RoadDublin [place] [id number] Albumin/Globulin [Mass ratio] 2.3 {ratio} Abnormal 1.2-2.2 [facility]; [facility] Work Phone: Comment on above: PATIENT NOT FASTINGP ERFORMED BY: DEBORAH [facility] Jxdgez4881 [address] RoadDublin [place] [id number] ALP [Catalytic activity/Vol] 72 U/L Normal 48-121 [facility]; [facility] Work Phone: Comment on above: PATIENT NOT FASTINGP ERFORMED BY: CB [facility] Obwwxd3958 [address] RoadDublin [place] [id number] ALT [Catalytic activity/Vol] 17 U/L Normal 0-32 [facility]; [facility] Work Phone: Comment on above: PATIENT NOT FASTINGP ERFORMED BY: DEBORAH [facility] Gkixjy5306 [address] RoadDublin [place] [id number] AST [Catalytic activity/Vol] 16 U/L Normal 0-40 [facility]; [facility] Work Phone: Comment on above: PATIENT NOT FASTINGP ERFORMED BY: CB [facility] Koceuh6027 [address] RoadDublin [place] [id number] Bilirubin [Mass/Vol] 0.3 mg/dL Normal 0.0-1.2 [facility]; [facility] Work Phone: Comment on above: PATIENT NOT FASTINGP ERFORMED BY: CB [facility] Ftnopu9886 [address] RoadDublin [place] [id number] Calcium [Mass/Vol] 9.5 mg/dL Normal 8.7-10.3 [facility] Internal Medicine; [facility] Work Phone: Comment on above: PATIENT NOT FASTINGP ERFORMED BY: [facility] Iksfsu3876 [address] [facility] [place] [id number] Chloride [Moles/Vol] 104 mmol/L Normal 96-106 [facility]; [facility] Work Phone: Comment on above: PATIENT NOT FASTINGP ERFORMED BY: [facility] Fhdtsg4363 [address] [facility] [id number] CO2 [Moles/Vol] 27 mmol/L Normal 20-29 [facility] Internal Medicine; [facility] Work Phone: Comment on above: PATIENT NOT FASTINGP ERFORMED BY: [facility] Jksvby2101 [address] [facility] [id number] Creatinine [Mass/Vol] 1.08 mg/dL Abnormal 0.57-1.00 [facility]; [facility] Work Phone: Comment on above: PATIENT NOT FASTINGP ERFORMED BY: [facility] Yutgfz2166 [facility] [id number] GFR/1.73 sq M.predicted among blacks CKD-EPI (S/P/Bld) [Vol rate/Area] 63 mL/min/1.73 Normal [facility]; [facility] Work Phone: Comment on above: [facility] currently reports eGFR in compliance with the current recommendations of the [employer] Kid[employer]. [facility] will update reporting as new guidelines are published from the NKF-ASN Task force. PATIENT NOT FASTINGP ERFORMED BY: LabSalem [facility] HospitalPmbbby4620 [facility] [id number] GFR/1.73 sq M.predicted among non-blacks CKD-EPI (S/P/Bld) [Vol rate/Area] 55 mL/min/1.73 Abnormal [facility]; [facility] Work Phone: Comment on above: PATIENT NOT FASTINGP ERFORMED BY: [facility] Mxwina1185 [facility] [id number] Globulin (S) [Mass/Vol] 2.1 g/dL Normal 1.5-4.5 [facility]; [facility] Work Phone: Comment on above: PATIENT NOT FASTINGP ERFORMED BY: DEBORAH [facility] Xghuea8525 [address] RoadDublin [place] [id number] Glucose [Mass/Vol] 91 mg/dL Normal 65-99 [facility] Internal Medicine; [facility] Work Phone: Comment on above: PATIENT NOT FASTINGP ERFORMED BY: CB [facility] Izikrn5451 [address] RoadDublin [place] [id number] Potassium [Moles/Vol] 4.8 mmol/L Normal 3.5-5.2 [facility]; [facility] Work Phone: Comment on above: PATIENT NOT FASTINGP ERFORMED BY: CB [facility] Dunnlt4100 [address] RoadDublin [place] [id number] Protein [Mass/Vol] 7.0 g/dL Normal 6.0-8.5 [facility] Internal Medicine; [facility] Work Phone: Comment on above: PATIENT NOT FASTINGP ERFORMED BY: CB [facility] Remkgy2158 [address] RoadDublin [place] [id number] Sodium [Moles/Vol] 145 mmol/L Abnormal 134-144 [facility] Internal Medicine; [facility] Work Phone: Comment on above: PATIENT NOT FASTINGP ERFORMED BY: CB [facility] Pwkbzr8457 [address] RoadDublin [place] [id number] Urea nitrogen [Mass/Vol] 13 mg/dL Normal 8-27 [facility]; [facility] Work Phone: Comment on above: PATIENT NOT FASTINGP ERFORMED BY: CB [facility] Vddtdh6491 [address] RoadDublin [place] [id number] Urea nitrogen/Creatinine [Mass ratio] 12 mg/mg Normal 12-28 [facility]; [facility] Work Phone: Comment on above: PATIENT NOT FASTINGP ERFORMED BY: CB [facility] Mpendo5395 [address] RoadDublin [place] [id number] RHEUMATOID FACTOR-QUANT (864 31)Ordered By: Environmental Technology Professor on 09-18-2020 Rheumatoid factor Qn [IU]/mL Normal 0.0-13.9 [facility]; [facility] Work Phone: Comment on above: PATIENT NOT FASTINGP ERFORMED BY: DEBORAH [facility] Bhopjv7049 [address] RoadDublin [place] [id number] VITAMIN B-12 (CYANOCOBALAMIN ) (32004)Ordered By: Environmental Technology Professor on 09-18-2020 Cobalamin (Vitamin B12) [Mass/Vol] 752 pg/mL Normal 232-1245 [facility]; [facility] Work Phone: Comment on above: PATIENT NOT FASTINGP ERFORMED BY: DEBORAH [facility] Rbdpmp0580 [address] RoadDublin [place] [id number] LIPID PANEL (07440)Ordered B y: Environmental Technology Professor on 09-12-2020 Cholesterol [Mass/Vol] 242 mg/dL Abnormal 100-199 [facility]; [facility] Work Phone: Comment on above: August 2020; PATIENT WA S FASTINGPERFORMED BY: CB [facility] Wsdumk0467 [address] RoadDublin [place] [id number]; fu 6-1 [facility] Cholesterol in HDL [Mass/Vol] 58 mg/dL Normal [facility]; [facility] Work Phone: Comment on above: August 2020; PATIENT WA S FASTINGPERFORMED BY: CB [facility] Jmioyo5517 [address] RoadDublin [place] [id number]; fu 6-1 [facility] Triglyceride [Mass/Vol] 115 mg/dL Normal 0-149 [facility]; [facility] Work Phone: Comment on above: August 2020; PATIENT WA S FASTINGPERFORMED BY: CB [facility] Wdmepg7253 [address] RoadDublin [place] [id number]; fu 6-1 [facility] LIPID PANEL (55469) 20 mg/dL Normal 5-40 [facility]; [facility] Work Phone: Comment on above: August 2020; PATIENT WA S FASTINGPERFORMED BY: CB [facility] Knxjgr9233 [address] RoadDublin [place] [id number]; fu 6-1 [facility] LIPID PANEL (28189) 164 mg/dL Abnormal 0-99 [facility] Internal Medicine; [facility] Work Phone: Comment on above: August 2020; PATIENT HUMBERTO S FASTINGPERFORMED BY: Lab[facility] Wgnlew3658 [facility] [id number]; fu 6-1 [facility] LIPID PANEL (13129) 2.8 {ratio} Normal 0.0-3.2 [facility] Internal Medicine; [facility] Work Phone: Comment on above: LDL/HDL Ratio Men Wo men 1/2 Avg.Risk 1.0 1.5 Avg.Risk 3.6 3.2 2X Avg.Risk 6.2 5.0 3X Avg.Risk 8.0 6.18 Aug 2020; PATIENT HUMBERTO Hart FASTINGPERFORMED BY: DEBORAH [facility] Uidrrs9098 [facility] [id number]; fu 6-1 [facility] T3, FREE (TRIDOTHYRONINE) (8 1228)Ordered By: Environmental Technology Professor on 09-12-2020 Free T3 [Mass/Vol] 2.3 pg/mL Normal 2.0-4.4 [facility] Internal Medicine; [facility] Work Phone: Comment on above: august 2020; PATIENT HUMBERTO Hart FASTINGPERFORMED BY: [employer] Stfmom6004 [facility] [id number] T4, FREE (THYROXINE) (15429) Ordered By: Environmental Technology Professor on 09-12-2020 Free T4 [Mass/Vol] 1.59 ng/dL Normal 0.82-1.77 [facility] Internal Medicine; [facility] Work Phone: Comment on above: August 2020; PATIENT HUMBERTO S FASTINGPERFORMED BY: [facility] Qkghfl5243 [facility] [id number] TSH (THYROID STIMULATING HOR ALEXEI) (73321)Ordered By: Environmental Technology Professor on 09-12-2020 TSH Qn 2.140 {uIU/mL} Normal 0.450-4.50 0 [facility]; [facility] Work Phone: Comment on above: August 2020; PATIENT WA S FASTINGPERFORMED BY: CB [facility] Ihauwk4631 [address] [facility] [place] [facility]blin [place] [id number] CBC, Platelets & Auto Diff ( 32358)Ordered By: Environmental Technology Professor on 02-20-2020 Basophils (Bld) [#/Vol] 0.1 {x10E3/uL} Normal 0.0-0.2 [facility] Work Phone: Comment on above: Feb 2; PATIENT WAS F ASTINGPERFORMED BY: CB [facility] Tewjmu5411 [address]Dublin [place] [id number] Basophils (Bld) [#/Vol] 0.1 10*3/uL Normal 0.0-0.2 [facility]; [facility] Work Phone: Comment on above: Nov 2; PATIENT WAS F ASTINGPERFORMED BY: CB [facility] Bskfcv8873 [address] RoadCritical access hospital [id number] Basophils/100 WBC (Bld) 1 % Normal [facility] Work Phone: Comment on above: Nov 2; PATIENT WAS F ASTINGPERFORMED BY: CB [facility] Ynshfv5460 [address] [facility] [id number] Eosinophils (Bld) [#/Vol] 0.2 {x10E3/uL} Normal 0.0-0.4 [facility] Work Phone: Comment on above: Nov 2; PATIENT WAS F ASTINGPERFORMED BY: CB [facility] Zmactd5335 [address] RoadWake [facility] Hospitalin [place] [id number] Eosinophils (Bld) [#/Vol] 0.2 10*3/uL Normal 0.0-0.4 [facility]; [facility] Work Phone: Comment on above: Nov 2; PATIENT WAS F ASTINGPERFORMED BY: CB [facility] Ctvamy5464 [address] RoadDublin [place] [id number] Eosinophils/100 WBC (Bld) 3 % Normal [facility] Work Phone: Comment on above: Nov 2; PATIENT WAS F ASTINGPERFORMED BY: [facility] Ripmby8707 [address] [facility] [place] [id number] Erythrocyte distribution width (RBC) [Ratio] 13.0 % Normal 11.7-15.4 [facility] Work Phone: Comment on above: Nov 2; PATIENT WAS F ASTINGPERFORMED BY: CB [facility] Eawwxf6894 [address] RoadDublin [place] [id number] Hematocrit (Bld) [Volume fraction] 36.4 % Normal 34.0-46.6 [facility] Work Phone: Comment on above: Nov 2; PATIENT WAS F ASTINGPERFORMED BY: CB [facility] Loxovw1448 [address] RoadWake Forest [facility] Hospitalin [place] [id number] Hemoglobin (Bld) [Mass/Vol] 12.5 g/dL Normal 11.1-15.9 [facility] Work Phone: Comment on above: Nov 2; PATIENT WAS F ASTINGPERFORMED BY: [facility] Queuyz5650 [address] RoadDublin [place] [id number] Immature granulocytes (Bld) [#/Vol] 0.0 {x10E3/uL} Normal 0.0-0.1 [facility] Work Phone: Comment on above: Nov 2; PATIENT WAS F ASTINGPERFORMED BY: [facility] Jlvyvq4045 [address] RoadDublin [place] [id number] Immature granulocytes (Bld) [#/Vol] 0.0 10*3/uL Normal 0.0-0.1 [facility]; [facility] Work Phone: Comment on above: Nov 2; PATIENT WAS F ASTINGPERFORMED BY: CB [facility] Flhlpk5988 [address] RoadDublin [place] [id number] Immature granulocytes/100 WBC (Bld) 0 % Normal [facility] Work Phone: Comment on above: Nov 2; PATIENT WAS F ASTINGPERFORMED BY: CB [facility] Mhlrhs3530 [address] RoadDublin [place] [id number] Lymphocytes (Bld) [#/Vol] 1.4 {x10E3/uL} Normal 0.7-3.1 [facility] Work Phone: Comment on above: Nov 2; PATIENT WAS F ASTINGPERFORMED BY: CB [facility] Lngbaq0134 [address] RoadDublin [place] [id number] Lymphocytes (Bld) [#/Vol] 1.4 10*3/uL Normal 0.7-3.1 [facility]; [facility] Work Phone: Comment on above: Nov 2; PATIENT WAS F ASTINGPERFORMED BY: CB [facility] Adinfa2785 [address] RoadDublin [place] [id number] Lymphocytes/100 WBC (Bld) 24 % Normal [facility] Work Phone: Comment on above: Nov 2; PATIENT WAS F ASTINGPERFORMED BY: CB [facility] Qnnhge2570 [address] RoadDublin [place] [id number] MCH (RBC) [Entitic mass] 31.3 pg Normal 26.6-33.0 [facility] Work Phone: Comment on above: Nov 2; PATIENT WAS F ASTINGPERFORMED BY: CB [facility] Ppjpxr5693 [address] RoadDublin [place] [id number] MCHC (RBC) [Mass/Vol] 34.3 g/dL Normal 31.5-35.7 [facility] Work Phone: Comment on above: Nov 2; PATIENT WAS F ASTINGPERFORMED BY: CB [facility] Spkmhy9727 [address] RoadDublin [place] [id number] MCV (RBC) [Entitic vol] 91 fL Normal 79-97 [facility] Work Phone: Comment on above: Nov 2; PATIENT WAS F ASTINGPERFORMED BY: CB [facility] Mfgbpo9225 [address] RoadDublin [place] [id number] Monocytes (Bld) [#/Vol] 0.5 {x10E3/uL} Normal 0.1-0.9 [facility] Work Phone: Comment on above: Nov 2; PATIENT WAS F ASTINGPERFORMED BY: CB [facility] Mlcwfb8839 [address] RoadDublin [place] [id number] Monocytes (Bld) [#/Vol] 0.5 10*3/uL Normal 0.1-0.9 [facility]; [facility] Work Phone: Comment on above: Nov 2; PATIENT WAS F ASTINGPERFORMED BY: CB [facility] Qvcjyb2268 [address] RoadDublin [place] [id number] Monocytes/100 WBC (Bld) 8 % Normal [facility] Work Phone: Comment on above: Nov 2; PATIENT WAS F ASTINGPERFORMED BY: CB [facility] Tmltcy4829 [address] RoadDublin [place] [id number] Neutrophils (Bld) [#/Vol] 3.7 {x10E3/uL} Normal 1.4-7.0 [facility] Work Phone: Comment on above: Nov 2; PATIENT WAS F ASTINGPERFORMED BY: DEBORAH [facility] Gxgqay5706 [address] RoadDublin [place] [id number] Neutrophils (Bld) [#/Vol] 3.7 10*3/uL Normal 1.4-7.0 [facility]; [facility] Work Phone: Comment on above: Nov 2; PATIENT WAS F ASTINGPERFORMED BY: DEBORAH [facility] Zvknks2638 [address] RoadDublin [place] [id number] Neutrophils/100 WBC (Bld) 64 % Normal [facility] Work Phone: Comment on above: Nov 2; PATIENT WAS F ASTINGPERFORMED BY: CB [facility] Fmcmsq1501 [address] RoadDublin [place] [id number] Platelets (Bld) [#/Vol] 205 {x10E3/uL} Normal 150-450 [facility] Work Phone: Comment on above: Nov 2; PATIENT WAS F ASTINGPERFORMED BY: CB [facility] Ybykya0210 [address] RoadDublin [place] [id number] Platelets (Bld) [#/Vol] 205 10*3/uL Normal 150-450 [facility]; [facility] Work Phone: Comment on above: Nov 2; PATIENT WAS F ASTINGPERFORMED BY: CB [facility] Hcfqyz0150 [address] RoadDublin [place] [id number] RBC (Bld) [#/Vol] 4.00 {x10E6/uL} Normal 3.77-5.28 [facility] Internal Medicine Work Phone: Comment on above: Nov 2; PATIENT WAS F ASTINGPERFORMED BY: CB [facility] Qzarcj4090 [address] RoadDublin [place] [id number] RBC (Bld) [#/Vol] 4.00 10*6/uL Normal 3.77-5.28 [facility] Internal Medicine; [facility] Work Phone: Comment on above: Nov 2; PATIENT WAS F ASTINGPERFORMED BY: CB [facility] Oyfecu8883 [address] RoadDublin [place] [id number] WBC (Bld) [#/Vol] 5.7 {x10E3/uL} Normal 3.4-10.8 [facility] Internal Medicine Work Phone: Comment on above: Nov 2; PATIENT WAS F ASTINGPERFORMED BY: CB [facility] Glqsif7166 [address] RoadDublin [place] [id number] WBC (Bld) [#/Vol] 5.7 10*3/uL Normal 3.4-10.8 [facility] Internal Medicine; [facility] Work Phone: Comment on above: Nov 2; PATIENT WAS F ASTINGPERFORMED BY: CB [facility] Rtkyuw6573 [address] RoadDublin [place] [id number] LIPID PANEL (50632)Ordered B y: Environmental Technology Professor on 02-20-2020 Cholesterol [Mass/Vol] 257 mg/dL Abnormal 100-199 [facility] Work Phone: Comment on above: Nov 2; PATIENT WAS F ASTINGPERFORMED BY: CB [facility] Cqbeao5001 [address] RoadDublin [place] [id number] Cholesterol in HDL [Mass/Vol] 61 mg/dL Normal [facility] Work Phone: Comment on above: Nov 2; PATIENT WAS F ASTINGPERFORMED BY: CB [facility] Catkzy9552 [address] RoadDublin [place] [id number] Cholesterol in LDL/Cholesterol in HDL [Mass ratio] 2.9 {ratio} Normal 0.0-3.2 [facility] Work Phone: Comment on above: LDL/HDL Ratio Men Wo men 1/2 Avg.Risk 1.0 1.5 Avg.Risk 3.6 3.2 2X Avg.Risk 6.2 5.0 3X Avg.Risk 8.0 6.1 Feb 19; PATIENT WAS F ASTINGPERFORMED BY: CB [facility] Kcdpmn1374 [address] RoadDublin [place] [id number] Triglyceride [Mass/Vol] 101 mg/dL Normal 0-149 [facility] Work Phone: Comment on above: Feb 19; PATIENT WAS F ASTINGPERFORMED BY: CB [facility] Tlfnpi2128 [address] RoadDublin [place] [id number] LIPID PANEL (96122) 18 mg/dL Normal 5-40 [facility] Internal Medicine Work Phone: Comment on above: Feb 19; PATIENT WAS F ASTINGPERFORMED BY: CB [facility] Yznsjf6048 [address] RoadDublin [place] [id number] LIPID PANEL (09188) 178 mg/dL Abnormal 0-99 [facility] Internal Medicine Work Phone: Comment on above: Feb 19; PATIENT WAS F ASTINGPERFORMED BY: CB [facility] Xuwuzx7931 [address] RoadDublin [place] [id number] LIPID PANEL (86195) 2.9 {ratio} Normal 0.0-3.2 [facility] Internal Medicine; [facility] Work Phone: Comment on above: LDL/HDL Ratio Men Wo men 1/2 Avg.Risk 1.0 1.5 Avg.Risk 3.6 3.2 2X Avg.Risk 6.2 5.0 3X Avg.Risk 8.0 6.1 Feb 19; PATIENT WAS F ASTINGPERFORMED BY: CB [facility] Ebfyxt1075 [address] RoadDublin [place] [id number] Metabolic Panel, Comprehensi ve (90209)Ordered By: Environmental Technology Professor on 02-20-2020 Albumin [Mass/Vol] 4.5 g/dL Normal 3.8-4.8 [facility] Internal Medicine Work Phone: Comment on above: Nov 2; PATIENT WAS F ASTINGPERFORMED BY: CB [facility] Qmzoho5364 [address] RoadDublin [place] [id number] Albumin/Globulin [Mass ratio] 2.1 {ratio} Normal 1.2-2.2 [facility] Work Phone: Comment on above: Nov 2; PATIENT WAS F ASTINGPERFORMED BY: CB [facility] Mkyivp4882 [address] RoadDublin [place] [id number] ALP [Catalytic activity/Vol] 63 [iU]/L Normal 39-117 [facility] Work Phone: Comment on above: Nov 2; PATIENT WAS F ASTINGPERFORMED BY: CB [facility] Izlytd8982 [address] RoadDublin [place] [id number] ALP [Catalytic activity/Vol] 63 U/L Normal 39-117 [facility]; [facility] Work Phone: Comment on above: Nov 2; PATIENT WAS F ASTINGPERFORMED BY: CB [facility] Jafake7127 [address] RoadDublin [place] [id number] ALT [Catalytic activity/Vol] 15 [iU]/L Normal 0-32 [facility] Work Phone: Comment on above: Nov 2; PATIENT WAS F ASTINGPERFORMED BY: CB [facility] Gwycat2064 [address] RoadDublin [place] [id number] ALT [Catalytic activity/Vol] 15 U/L Normal 0-32 [facility]; [facility] Work Phone: Comment on above: Nov 2; PATIENT WAS F ASTINGPERFORMED BY: CB [facility] Qdrney6934 [address] RoadDublin [place] [id number] AST [Catalytic activity/Vol] 15 [iU]/L Normal 0-40 [facility] Work Phone: Comment on above: Nov 2; PATIENT WAS F ASTINGPERFORMED BY: CB [facility] Cgqeiv0980 [address] RoadDublin [place] [id number] AST [Catalytic activity/Vol] 15 U/L Normal 0-40 [facility]; [facility] Work Phone: Comment on above: Nov 2; PATIENT WAS F ASTINGPERFORMED BY: CB [facility] Khninu5057 [address] RoadDublin [place] [id number] Bilirubin [Mass/Vol] 0.4 mg/dL Normal 0.0-1.2 [facility] Internal Medicine Work Phone: Comment on above: Nov 2; PATIENT WAS F ASTINGPERFORMED BY: CB [facility] Hjxgxh3616 [address] RoadDublin [place] [id number] Calcium [Mass/Vol] 9.1 mg/dL Normal 8.7-10.3 [facility] Internal Medicine Work Phone: Comment on above: Feb 2; PATIENT WAS F ASTINGPERFORMED BY: CB [facility] Gqeldd0201 [address] RoadDublin [place] [id number] Chloride [Moles/Vol] 105 mmol/L Normal 96-106 [facility] Internal Medicine Work Phone: Comment on above: Nov 2; PATIENT WAS F ASTINGPERFORMED BY: CB [facility] Ahzkhy9097 [address] RoadDublin [place] [id number] CO2 [Moles/Vol] 25 mmol/L Normal 20-29 [facility] Internal Medicine Work Phone: Comment on above: Nov 2; PATIENT WAS F ASTINGPERFORMED BY: CB [facility] Qcdlmy2810 [address] RoadDublin [place] [id number] Creatinine [Mass/Vol] 0.95 mg/dL Normal 0.57-1.00 [facility] Internal Medicine Work Phone: Comment on above: Feb 2; PATIENT WAS F ASTINGPERFORMED BY: CB [facility] Rvqvhr9418 [address] RoadDublin [place] [id number] GFR/1.73 sq M predicted among blacks CKD-EPI (S/P/Bld) [Vol rate/Area] 74 mL/min/1.73 Normal [facility] Internal Medicine Work Phone: Comment on above: Nov 2; PATIENT WAS F ASTINGPERFORMED BY: CB [facility] Axxpre3098 [address]Dublin [place] [id number] GFR/1.73 sq M predicted among non-blacks CKD-EPI (S/P/Bld) [Vol rate/Area] 64 mL/min/1.73 Normal [facility] Work Phone: Comment on above: Nov 2; PATIENT WAS F ASTINGPERFORMED BY: CB [facility] Exdvfd5605 [address] RoadDublin [place] [id number] Globulin (S) [Mass/Vol] 2.1 g/dL Normal 1.5-4.5 [facility] [facility] Internal Medicine Work Phone: Comment on above: Feb 2; PATIENT WAS F ASTINGPERFORMED BY: CB [facility] [id number] [address]Dublin [place] [id number] Glucose [Mass/Vol] 91 mg/dL Normal 65-99 [facility] Internal Medicine Work Phone: Comment on above: Nov 2; PATIENT WAS F ASTINGPERFORMED BY: CB [facility] [id number] [address]Dublin [place] [id number] Potassium [Moles/Vol] 4.3 mmol/L Normal 3.5-5.2 [facility] Internal Medicine Work Phone: Comment on above: Feb 2; PATIENT WAS F ASTINGPERFORMED BY: CB [facility] [id number] [address]Dublin [place] [id number] Protein [Mass/Vol] 6.6 g/dL Normal 6.0-8.5 [facility] Internal Medicine Work Phone: Comment on above: Feb 2; PATIENT WAS F ASTINGPERFORMED BY: CB [facility] [id number] [address]Dublin [place] [id number] Sodium [Moles/Vol] 143 mmol/L Normal 134-144 [facility] Internal Medicine Work Phone: Comment on above: Nov 2; PATIENT WAS F ASTINGPERFORMED BY: CB [facility] [id number]Dublin [place] [id number] Urea nitrogen [Mass/Vol] 12 mg/dL Normal 8-27 [facility] Work Phone: Comment on above: Feb 19; PATIENT WAS F ASTINGPERFORMED BY: CB [facility] [id number] [place] [id number] Urea nitrogen/Creatinine [Mass ratio] 13 mg/mg Normal 12 [facility] Internal Medicine Work Phone: Comment on above: Feb 19; PATIENT WAS F ASTINGPERFORMED BY: CB [facility] [id number] Pat[address]blin [place] [id number] T3, FREE (TRIDOTHYRONINE) ([id number])Ordered By: Environmental Technology Professor on 02-20-2020 Free T3 [Mass/Vol] 2.2 pg/mL Normal 2.0-4.4 [facility] Internal Medicine Work Phone: Comment on above: Feb 20 2020; PATIENT WAS FASTINGPERFORMED BY: [facility] [id number] [place] [id number] T4, FREE (THYROXINE) ([id number]) Ordered By: Environmental Technology Professor on 02-20-2020 Free T4 [Mass/Vol] 1.53 ng/dL Normal 0.82-1.77 [facility] Internal Medicine Work Phone: Comment on above: Feb 20 2020; PATIENT WAS FASTINGPERFORMED BY: CB [facility] [id number] [place] [id number] TSH (THYROID STIMULATING HOR ALEXEI) ([id number])Ordered By: Environmental Technology Professor on 02-20-2020 TSH Qn 1.580 {uIU/mL} Normal 0.450-4.50 0 [facility] Internal Medicine Work Phone: Comment on above: Feb 20 2020; PATIENT WAS FASTINGPERFORMED BY: [facility] [id number] [place] [id number] Vital Signs Date Time Vital Sign Value Performing Clinician Facility 10-14-2024 11:25-0400 Body mass index (BMI) [Ratio] 21.53 kg/m2 Aziza Thompson PA-C Work Phone: [facility] 10-14-2024 11:25-0400 Body temperature 98.4 [degF] Aziza Thompson PA-C Work Phone: [facility] 10-14-2024 11:25-0400 Body weight 53.07 kg Aziza Thompson PA-C Work Phone: [facility] 10-14-2024 11:25-0400 Diastolic blood pressure 78 mm[Hg] Aziza Thompson PA-C Work Phone: [facility] 10-14-2024 11:25-0400 Heart rate 53 /min Aziza Thompson PA-C Work Phone: [facility] 10-14-2024 11:25-0400 Respiratory rate 16 /min Aziza Thompson PA-C Work Phone: [facility] 10-14-2024 11:25-0400 SaO2% (BldA) [Mass fraction] 98 % Aziza Thompson PA-C Work Phone: [facility] 10-14-2024 11:25-0400 Systolic blood pressure 112 mm[Hg] Aziza Thompson PA-C Work Phone: [facility] 09-28-2024 11:23-0400 Body mass index (BMI) [Ratio] 21.53 kg/m2 Aziza Thompson PA-C Work Phone: [facility] 09-28-2024 11:23-0400 Body temperature 98.4 [degF] Aziza Thompson PA-C Work Phone: [facility] 09-28-2024 11:23-0400 Body weight 53.07 kg Aziza Thompson PA-C Work Phone: [facility] 09-28-2024 11:23-0400 Diastolic blood pressure 86 mm[Hg] Aziza Thompson PA-C Work Phone: [facility] 09-28-2024 11:23-0400 Heart rate 44 /min Aziza Thompson PA-C Work Phone: [facility] 09-28-2024 11:23-0400 Respiratory rate 16 /min Aziza Thompson PA-C Work Phone: [facility] 09-28-2024 11:23-0400 SaO2% (BldA) [Mass fraction] 99 % Aziza Thompson PA-C Work Phone: [facility] 09-28-2024 11:23-0400 Systolic blood pressure 120 mm[Hg] Aziza DANIELS-C Work Phone: [facility] 09-19-2024 11:28-0400 Body height 157.[address] Remy Perez MD Work Phone: [facility] 09-19-2024 11:28-0400 Body mass index (BMI) [Ratio] 21.5 kg/m2 Dr. Remy Perez MD Work Phone: [facility] 09-19-2024 11:28-0400 Body weight 53.[address] Remy Perez MD Work Phone: [facility] 09-19-2024 11:28-0400 Diastolic blood pressure 94 mm[Hg] Dr. Remy Perez MD Work Phone: [phone] [place] [address] 09-19-2024 11:28-0400 Heart rate 61 /min Dr. Remy Perez MD Work Phone: [facility] 09-19-2024 11:28-0400 Respiratory rate 18 /min Dr. Remy Perez MD Work Phone: [facility] 09-19-2024 11:28-0400 Systolic blood pressure 149 mm[Hg] Dr. Remy Perez MD Work Phone: [facility] 08-25-2024 12:03-0400 Body mass index (BMI) [Ratio] 21.35 kg/m2 Aziza Thompson PA-C Work Phone: [facility] 08-25-2024 12:03-0400 Body temperature 98.29 [degF] Aziza KUMARC Work Phone: [facility] 08-25-2024 12:03-0400 Body weight 52.62 kg Aziza Thompson PA-C Work Phone: [facility] 08-25-2024 12:03-0400 Diastolic blood pressure 82 mm[Hg] Aziza Thompson PA-C Work Phone: [facility] 08-25-2024 12:03-0400 Heart rate 53 /min Aziza Thompson PA-C Work Phone: [facility] 08-25-2024 12:03-0400 Respiratory rate 16 /min Aziza Thompson PA-C Work Phone: [facility] 08-25-2024 12:03-0400 SaO2% (BldA) [Mass fraction] 98 % Aziza Thompson PA-C Work Phone: [facility] 08-25-2024 12:03-0400 Systolic blood pressure 132 mm[Hg] Aziza Thompson PA-C Work Phone: [facility] 08-08-2024 14:38-0400 Diastolic blood pressure 85 mm[Hg] Aziza Thompson PA-C Work Phone: [facility] Comment on above: average with bp machine 08-08-2024 14:38-0400 Heart rate 58 /min Azizamikhail Thompson PA-C Work Phone: [facility] 08-08-2024 14:38-0400 Systolic blood pressure 143 mm[Hg] Aziza Thompson PA-C Work Phone: [facility] Comment on above: average with bp machine 08-08-2024 13:15-0400 Body height 157 cm Aziza Thompson PA-C Work Phone: [facility] 08-08-2024 13:15-0400 Body mass index (BMI) [Ratio] 21.71 kg/m2 Aziza Thompson PA-C Work Phone: [facility] 08-08-2024 13:15-0400 Body temperature 98.4 [degF] Aziza Thompson PA-C Work Phone: [facility] 08-08-2024 13:15-0400 Body weight 53.52 kg Aziza Thompson PA-C Work Phone: [facility] 08-08-2024 13:15-0400 Respiratory rate 16 /min Aziza Thompson PA-C Work Phone: [facility] 08-08-2024 13:15-0400 SaO2% (BldA) [Mass fraction] 97 % Aziza Thompson PA-C Work Phone: [facility] 06-02-2024 10:31-0500 Body height 157.5 cm Remy Perez MD Work Phone: [facility] 06-02-2024 10:31-0500 Body mass index (BMI) [Ratio] 21.58 kg/m2 Remy Perez MD Work Phone: [facility] 06-02-2024 10:31-0500 Body weight 53.52 kg Remy Perez MD Work Phone: [facility] 06-02-2024 10:31-0500 Diastolic blood pressure 87 mm[Hg] Remy Perez MD Work Phone: [facility] 06-02-2024 10:31-0500 Heart rate 66 /min Remy Perez MD Work Phone: [facility] 06-02-2024 10:31-0500 Systolic blood pressure 137 mm[Hg] Remy Perez MD Work Phone: [facility] 05-26-2024 11:33-0500 Body mass index (BMI) [Ratio] 21.4 kg/m2 Aziza Thompson PA-C Work Phone: [facility] 05-26-2024 11:33-0500 Body temperature 97.3 [degF] Aziza Thompson PA-C Work Phone: [facility] 05-26-2024 11:33-0500 Body weight 54.43 kg Aziza Thompson PA-C Work Phone: [facility] 05-26-2024 11:33-0500 Diastolic blood pressure 82 mm[Hg] Aziza Thompson PA-C Work Phone: [facility] 05-26-2024 11:33-0500 Heart rate 60 /min Aziza Thompson PA-C Work Phone: [facility] 05-26-2024 11:33-0500 Respiratory rate 16 /min Aziza Thompson PA-C Work Phone: [facility] 05-26-2024 11:33-0500 SaO2% (BldA) [Mass fraction] 99 % Aziza Thompson PA-C Work Phone: [facility] 05-26-2024 11:33-0500 Systolic blood pressure 130 mm[Hg] Aziza Thompson PA-C Work Phone: [facility] 03-10-2024 12:15-0500 Body mass index (BMI) [Ratio] 21.93 kg/m2 Vale Praisler-Wood COMMUNICATION ELECTRONIC TECHNICIAN.PATIENT ACCOUNTS COORDINATOR Work Phone: [facility] 03-10-2024 12:15-0500 Body temperature 98.01 [degF] Vale Praisler-Wood COMMUNICATION ELECTRONIC TECHNICIAN.PATIENT ACCOUNTS COORDINATOR Work Phone: [facility] 03-10-2024 12:15-0500 Body weight 55.8 kg Vale Praisler-Wood COMMUNICATION ELECTRONIC TECHNICIAN.PATIENT ACCOUNTS COORDINATOR Work Phone: [facility] 03-10-2024 12:15-0500 Diastolic blood pressure 90 mm[Hg] Vale Praisler-Wood COMMUNICATION ELECTRONIC TECHNICIAN.PATIENT ACCOUNTS COORDINATOR Work Phone: [facility] 03-10-2024 12:15-0500 Heart rate 63 /min Vale Praisler-Wood COMMUNICATION ELECTRONIC TECHNICIAN.PATIENT ACCOUNTS COORDINATOR Work Phone: [facility] 03-10-2024 12:15-0500 Respiratory rate 21 /min Vale Praisler-Wood COMMUNICATION ELECTRONIC TECHNICIAN.PATIENT ACCOUNTS COORDINATOR Work Phone: [facility] 03-10-2024 12:15-0500 SaO2% (BldA) [Mass fraction] 99 % Avle Praisler-Wood COMMUNICATION ELECTRONIC TECHNICIAN.PATIENT ACCOUNTS COORDINATOR Work Phone: [facility] 03-10-2024 12:15-0500 Systolic blood pressure 140 mm[Hg] Vale Shukri CORDERO Work Phone: [facility] 02-08-2024 13:08-0400 Body mass index (BMI) [Ratio] 21.22 kg/m2 Aziza Thompson PA-C Work Phone: [facility] 02-08-2024 13:08-0400 Body temperature 97.3 [degF] Aziza Thompson PA-C Work Phone: [facility] 02-08-2024 13:08-0400 Body weight 53.98 kg Aziza Thompson PA-C Work Phone: [facility] 02-08-2024 13:08-0400 Diastolic blood pressure 86 mm[Hg] Aziza Thompson PA-C Work Phone: [facility] 02-08-2024 13:08-0400 Heart rate 52 /min Aziza Thompson PA-C Work Phone: [facility] 02-08-2024 13:08-0400 Respiratory rate 16 /min Aziza Thompson PA-C Work Phone: [facility] 02-08-2024 13:08-0400 SaO2% (BldA) [Mass fraction] 99 % Aziza Thompson PA-C Work Phone: [facility] 02-08-2024 13:08-0400 Systolic blood pressure 126 mm[Hg] Aziza DANIELS-C Work Phone: [facility] 11-19-2023 15:11-0400 Body mass index (BMI) [Ratio] 20.86 kg/m2 Aziza Thompson PA-C Work Phone: [facility] 11-19-2023 15:11-0400 Body temperature 99.19 [degF] Aziza Thompson PA-C Work Phone: [facility] 11-19-2023 15:11-0400 Body weight 53.07 kg Aziza Thompson PA-C Work Phone: [facility] 11-19-2023 15:11-0400 Diastolic blood pressure 76 mm[Hg] Aziza Thompson PA-C Work Phone: [facility] 11-19-2023 15:11-0400 Heart rate 72 /min Azizamikhail Thompson PA-C Work Phone: [facility] 11-19-2023 15:11-0400 Respiratory rate 16 /min Aziza Thompson PA-C Work Phone: [facility] 11-19-2023 15:11-0400 SaO2% (BldA) [Mass fraction] 95 % Aziza Thompson PA-C Work Phone: [facility] 11-19-2023 15:11-0400 Systolic blood pressure 106 mm[Hg] Aziza Thompson PA-C Work Phone: [facility] 07-23-2023 12:46-0400 Body height 159.5 cm Aziza Thompson PA-C Work Phone: [facility] 07-23-2023 12:46-0400 Body temperature 98.2 [degF] Aziza Thompson PA-C Work Phone: [facility] 07-23-2023 12:46-0400 Body weight 53.52 kg Aziza Thompson PA-C Work Phone: [facility] 07-23-2023 12:46-0400 Diastolic blood pressure 84 mm[Hg] Aziza Thompson PA-C Work Phone: [facility] 07-23-2023 12:46-0400 Heart rate 69 /min Aziza Thompson PA-C Work Phone: [facility] 07-23-2023 12:46-0400 Respiratory rate 16 /min Aziza Thompson PA-C Work Phone: [facility] 07-23-2023 12:46-0400 SaO2% (BldA) [Mass fraction] 97 % Aziza Thompson PA-C Work Phone: [facility] 07-23-2023 12:46-0400 Systolic blood pressure 112 mm[Hg] Aziza Thompson PA-C Work Phone: [facility] 07-03-2023 10:46-0400 Body weight 53.52 kg Remy Perez MD Work Phone: [facility] 07-03-2023 10:46-0400 Diastolic blood pressure 80 mm[Hg] Remy Perez MD Work Phone: [facility] 07-03-2023 10:46-0400 Heart rate 66 /min Remy Perez MD Work Phone: [facility] 07-03-2023 10:46-0400 Respiratory rate 16 /min Remy Perez MD Work Phone: [facility] 07-03-2023 10:46-0400 SaO2% (BldA) [Mass fraction] 98 % Remy Perez MD Work Phone: [facility] 07-03-2023 10:46-0400 Systolic blood pressure 120 mm[Hg] Remy Perez MD Work Phone: [facility] 06-24-2023 13:55-0500 Body temperature 98.29 [degF] Manuel Calvin COMMUNICATION ELECTRONIC TECHNICIAN.PATIENT ACCOUNTS COORDINATOR Work Phone: [facility] 06-24-2023 13:55-0500 Body weight 53.07 kg Manuel Calvin COMMUNICATION ELECTRONIC TECHNICIAN.PATIENT ACCOUNTS COORDINATOR Work Phone: [facility] 06-24-2023 13:55-0500 Diastolic blood pressure 76 mm[Hg] Manuel Calvin COMMUNICATION ELECTRONIC TECHNICIAN.PATIENT ACCOUNTS COORDINATOR Work Phone: [facility] 06-24-2023 13:55-0500 Heart rate 67 /min Manuel Calvin COMMUNICATION ELECTRONIC TECHNICIAN.PATIENT ACCOUNTS COORDINATOR Work Phone: [facility] 06-24-2023 13:55-0500 Respiratory rate 18 /min Manuel Calvin COMMUNICATION ELECTRONIC TECHNICIAN.PATIENT ACCOUNTS COORDINATOR Work Phone: [facility] 06-24-2023 13:55-0500 SaO2% (BldA) [Mass fraction] 99 % Manuel Calvin COMMUNICATION ELECTRONIC TECHNICIAN.PATIENT ACCOUNTS COORDINATOR Work Phone: [facility] 06-24-2023 13:55-0500 Systolic blood pressure 118 mm[Hg] Manuel Simpson COMMUNICATION ELECTRONIC TECHNICIAN.PATIENT ACCOUNTS COORDINATOR Work Phone: [facility] 04-08-2023 10:52-0500 Body temperature 98.49 [degF] Sophia Callow COMMUNICATION ELECTRONIC TECHNICIAN.PATIENT ACCOUNTS COORDINATOR Work Phone: [facility] 04-08-2023 10:52-0500 Body weight 53.98 kg Sophia Callow COMMUNICATION ELECTRONIC TECHNICIAN.PATIENT ACCOUNTS COORDINATOR Work Phone: [facility] 04-08-2023 10:52-0500 Diastolic blood pressure 80 mm[Hg] Sophia Callow COMMUNICATION ELECTRONIC TECHNICIAN.PATIENT ACCOUNTS COORDINATOR Work Phone: [facility] 04-08-2023 10:52-0500 Heart rate 68 /min Sophia Callow COMMUNICATION ELECTRONIC TECHNICIAN.PATIENT ACCOUNTS COORDINATOR Work Phone: [facility] 04-08-2023 10:52-0500 Respiratory rate 16 /min Sophia Callow COMMUNICATION ELECTRONIC TECHNICIAN.PATIENT ACCOUNTS COORDINATOR Work Phone: [facility] 04-08-2023 10:52-0500 SaO2% (BldA) [Mass fraction] 99 % Sophia Callow COMMUNICATION ELECTRONIC TECHNICIAN.PATIENT ACCOUNTS COORDINATOR Work Phone: [facility] 04-08-2023 10:52-0500 Systolic blood pressure 134 mm[Hg] Sophia Callow COMMUNICATION ELECTRONIC TECHNICIAN.PATIENT ACCOUNTS COORDINATOR Work Phone: [facility] 02-11-2023 13:27-0400 Body temperature 97.2 [degF] Keely Doll COMMUNICATION ELECTRONIC TECHNICIAN.PATIENT ACCOUNTS COORDINATOR Work Phone: [facility] 02-11-2023 13:27-0400 Body weight 53.98 kg Keely Doll COMMUNICATION ELECTRONIC TECHNICIAN.PATIENT ACCOUNTS COORDINATOR Work Phone: [facility] 02-11-2023 13:27-0400 Diastolic blood pressure 60 mm[Hg] Keely Doll COMMUNICATION ELECTRONIC TECHNICIAN.PATIENT ACCOUNTS COORDINATOR Work Phone: [facility] 02-11-2023 13:27-0400 Heart rate 68 /min Keely Doll COMMUNICATION ELECTRONIC TECHNICIAN.PATIENT ACCOUNTS COORDINATOR Work Phone: [facility] 02-11-2023 13:27-0400 Respiratory rate 16 /min Keely Doll COMMUNICATION ELECTRONIC TECHNICIAN.PATIENT ACCOUNTS COORDINATOR Work Phone: [facility] 02-11-2023 13:27-0400 SaO2% (BldA) [Mass fraction] 98 % Keely Doll COMMUNICATION ELECTRONIC TECHNICIAN.PATIENT ACCOUNTS COORDINATOR Work Phone: [facility] 02-11-2023 13:27-0400 Systolic blood pressure 110 mm[Hg] Keely Doll COMMUNICATION ELECTRONIC TECHNICIAN.PATIENT ACCOUNTS COORDINATOR Work Phone: [facility] 01-29-2023 14:25-0400 Body temperature 97.2 [degF] Louise Louann PA-C Work Phone: [facility] 01-29-2023 14:25-0400 Body weight 53.71 kg Louise Louann PA-C Work Phone: [facility] 01-29-2023 14:25-0400 Diastolic blood pressure 60 mm[Hg] Louise Aman PA-C Work Phone: [facility] 01-29-2023 14:25-0400 Heart rate 71 /min Louise Louann PA-C Work Phone: [facility] 01-29-2023 14:25-0400 SaO2% (BldA) [Mass fraction] 98 % Louise Louann PA-C Work Phone: [facility] 01-29-2023 14:25-0400 Systolic blood pressure 102 mm[Hg] Louise Louann PA-C Work Phone: [facility] 01-22-2023 13:53-0400 Diastolic blood pressure 76 mm[Hg] Hugh Cole MD Work Phone: [facility] 01-22-2023 13:53-0400 Heart rate 55 /min Hugh Cole MD Work Phone: [facility] 01-22-2023 13:53-0400 Respiratory rate 16 /min Hugh Cole MD Work Phone: [facility] 01-22-2023 13:53-0400 SaO2% (BldA) [Mass fraction] 99 % Hugh Cole MD Work Phone: [facility] 01-22-2023 13:53-0400 Systolic blood pressure 157 mm[Hg] Hugh Cole MD Work Phone: [facility] 01-22-2023 11:40-0400 Body temperature 97.5 [degF] Hugh Cole MD Work Phone: [facility] 12-24-2022 12:04-0400 Body temperature 97.7 [degF] Aziza Thompson PA-C Work Phone: [facility] 12-24-2022 12:04-0400 Body weight 53.98 kg Aziza Thompson PA-C Work Phone: [facility] 12-24-2022 12:04-0400 Diastolic blood pressure 80 mm[Hg] Aziza Thompson PA-C Work Phone: [facility] 12-24-2022 12:04-0400 Heart rate 60 /min Aziza Thompson PA-C Work Phone: [facility] 12-24-2022 12:04-0400 Respiratory rate 16 /min Aziza Thompson PA-C Work Phone: [facility] 12-24-2022 12:04-0400 Systolic blood pressure 100 mm[Hg] Aziza Thompson PA-C Work Phone: [facility] 08-18-2022 13:31-0400 Body weight 56.25 kg Rupinder Goss COMMUNICATION ELECTRONIC TECHNICIAN.PATIENT ACCOUNTS COORDINATOR Work Phone: [facility] 08-18-2022 13:31-0400 Diastolic blood pressure 70 mm[Hg] Rupinder Goss APRN.PATIENT ACCOUNTS COORDINATOR Work Phone: [facility] 08-18-2022 13:31-0400 Heart rate 86 /min Rupinder Goss COMMUNICATION ELECTRONIC TECHNICIAN.PATIENT ACCOUNTS COORDINATOR Work Phone: [facility] 08-18-2022 13:31-0400 Respiratory rate 14 /min Rupinder Knoble COMMUNICATION ELECTRONIC TECHNICIAN.PATIENT ACCOUNTS COORDINATOR Work Phone: [facility] 08-18-2022 13:31-0400 Systolic blood pressure 118 mm[Hg] Rupinder Knoble COMMUNICATION ELECTRONIC TECHNICIAN.PATIENT ACCOUNTS COORDINATOR Work Phone: [facility] 07-14-2022 14:04-0400 Body weight 56.25 kg Rupinder Knoble COMMUNICATION ELECTRONIC TECHNICIAN.PATIENT ACCOUNTS COORDINATOR Work Phone: [facility] 07-14-2022 14:04-0400 Diastolic blood pressure 74 mm[Hg] Rupinder Knoble COMMUNICATION ELECTRONIC TECHNICIAN.PATIENT ACCOUNTS COORDINATOR Work Phone: [facility] 07-14-2022 14:04-0400 Heart rate 60 /min Rupinder Knoble COMMUNICATION ELECTRONIC TECHNICIAN.PATIENT ACCOUNTS COORDINATOR Work Phone: [facility] 07-14-2022 14:04-0400 Respiratory rate 14 /min Rupinder Knoble COMMUNICATION ELECTRONIC TECHNICIAN.PATIENT ACCOUNTS COORDINATOR Work Phone: [facility] 07-14-2022 14:04-0400 Systolic blood pressure 120 mm[Hg] Rupinder Knoble COMMUNICATION ELECTRONIC TECHNICIAN.PATIENT ACCOUNTS COORDINATOR Work Phone: [facility] 07-01-2022 15:12-0400 Body weight 56.7 kg Rupinder Knoble COMMUNICATION ELECTRONIC TECHNICIAN.PATIENT ACCOUNTS COORDINATOR Work Phone: [facility] 07-01-2022 15:12-0400 Diastolic blood pressure 76 mm[Hg] Rupinder Knoble COMMUNICATION ELECTRONIC TECHNICIAN.PATIENT ACCOUNTS COORDINATOR Work Phone: [facility] 07-01-2022 15:12-0400 Heart rate 70 /min Rupinder Knoble COMMUNICATION ELECTRONIC TECHNICIAN.PATIENT ACCOUNTS COORDINATOR Work Phone: [facility] 07-01-2022 15:12-0400 Respiratory rate 14 /min Rupinder Knoble COMMUNICATION ELECTRONIC TECHNICIAN.PATIENT ACCOUNTS COORDINATOR Work Phone: [facility] 07-01-2022 15:12-0400 Systolic blood pressure 112 mm[Hg] Rupnider Knoble COMMUNICATION ELECTRONIC TECHNICIAN.PATIENT ACCOUNTS COORDINATOR Work Phone: [facility] 06-29-2022 17:34-0400 Diastolic blood pressure 104 mm[Hg] [facility] 06-29-2022 17:34-0400 Heart rate 67 /min [facility] 06-29-2022 17:34-0400 Respiratory rate 18 /min [facility] 06-29-2022 17:34-0400 SaO2% (BldA) [Mass fraction] 98 % [facility] 06-29-2022 17:34-0400 Systolic blood pressure 168 mm[Hg] [facility] 06-29-2022 13:23-0400 Body height 157.[address] [facility] 06-29-2022 13:23-0400 Body mass index (BMI) [Ratio] 25.8 kg/m2 [facility] 06-29-2022 13:23-0400 Body temperature 97.8 [degF] [facility] 06-29-2022 13:23-0400 Body weight 64.[address] [facility] 06-26-2022 11:16-0500 Body height 157.5 cm Louise Louann PA-C Work Phone: [facility] 06-26-2022 11:16-0500 Body temperature 98.49 [degF] Louise Aman PA-C Work Phone: [facility] 06-26-2022 11:16-0500 Body weight 56.7 kg Louise Aman PA-C Work Phone: [facility] 06-26-2022 11:16-0500 Diastolic blood pressure 80 mm[Hg] Louise Louann PA-C Work Phone: [facility] 06-26-2022 11:16-0500 Heart rate 97 /min Louise Aman PA-C Work Phone: [facility] 06-26-2022 11:16-0500 Respiratory rate 14 /min Louise Aman PA-C Work Phone: [facility] 06-26-2022 11:16-0500 SaO2% (BldA) [Mass fraction] 97 % Louise Louann PA-C Work Phone: [facility] 06-26-2022 11:16-0500 Systolic blood pressure 128 mm[Hg] Louise Aman PA-C Work Phone: [facility] 06-19-2022 11:58-0500 Body height 160 cm Aziza Thompson PA-C Work Phone: [facility] 06-19-2022 11:58-0500 Body weight 55.34 kg Aziza Thompson PA-C Work Phone: [facility] 06-19-2022 11:58-0500 Diastolic blood pressure 84 mm[Hg] Aziza Thompson PA-C Work Phone: [facility] 06-19-2022 11:58-0500 Heart rate 75 /min Aziza Thompson PA-C Work Phone: [facility] 06-19-2022 11:58-0500 Respiratory rate 16 /min Aziza Thompson PA-C Work Phone: [facility] 06-19-2022 11:58-0500 SaO2% (BldA) [Mass fraction] 98 % Aziza Thompson PA-C Work Phone: [facility] 06-19-2022 11:58-0500 Systolic blood pressure 126 mm[Hg] Aziza Thompson PA-C Work Phone: [facility] 05-16-2022 11:31-0500 Diastolic blood pressure 98 mm[Hg] Aziza Thompson PA-C Work Phone: [facility] 05-16-2022 11:31-0500 Systolic blood pressure 153 mm[Hg] Aziza Thompson PA-C Work Phone: [facility] 05-16-2022 11:27-0500 Body weight 55.43 kg Aziza Thompson PA-C Work Phone: [facility] 05-16-2022 11:27-0500 Heart rate 61 /min Aziza Thompson PA-C Work Phone: [facility] 05-16-2022 11:27-0500 Respiratory rate 16 /min Aziza Thompson PA-C Work Phone: [facility] 05-16-2022 11:27-0500 SaO2% (BldA) [Mass fraction] 98 % Aziza Thompson PA-C Work Phone: [facility] 03-28-2022 12:06-0500 Body height 157.5 cm Genie Quispe MD Work Phone: [facility] 03-28-2022 12:06-0500 Body temperature 99 [degF] Genie Quispe MD Work Phone: [facility] 03-28-2022 12:06-0500 Body weight 54.43 kg Genie Quispe MD Work Phone: [facility] 03-28-2022 12:06-0500 Diastolic blood pressure 81 mm[Hg] Genie Quispe MD Work Phone: [facility] 03-28-2022 12:06-0500 Heart rate 69 /min Genie Quispe MD Work Phone: [facility] 03-28-2022 12:06-0500 Systolic blood pressure 132 mm[Hg] Genie Quispe MD Work Phone: [facility] 02-21-2022 15:50-0400 Body temperature 97.9 [degF] [facility] Work Phone: 02-21-2022 15:50-0400 Diastolic blood pressure 91 mm[Hg] [facility] Work Phone: 02-21-2022 15:50-0400 Heart rate 68 /min [facility] Work Phone: 02-21-2022 15:50-0400 Respiratory rate 16 /min [facility] Work Phone: 02-21-2022 15:50-0400 SaO2% (BldA) [Mass fraction] 99 % [facility] Work Phone: 02-21-2022 15:50-0400 Systolic blood pressure 151 mm[Hg] [facility] Work Phone: 02-21-2022 11:55-0400 Body height 157.[address] [facility] Work Phone: 02-21-2022 11:55-0400 Body mass index (BMI) [Ratio] 21.9 kg/m2 [facility] Work Phone: 02-21-2022 11:55-0400 Body weight 54.[address] [facility] Work Phone: 01-27-2022 10:19-0400 Body temperature 98.01 [degF] Aziza Thompson PA-C Work Phone: [facility] 01-27-2022 10:19-0400 Body weight 55.79 kg Aziza Thompson PA-C Work Phone: [facility] 01-27-2022 10:19-0400 Diastolic blood pressure 78 mm[Hg] Aziza Thompson PA-C Work Phone: [facility] 01-27-2022 10:19-0400 Heart rate 60 /min Aziza Thompson PA-C Work Phone: [facility] 01-27-2022 10:19-0400 Respiratory rate 16 /min Aziza Thompson PA-C Work Phone: [facility] 01-27-2022 10:19-0400 Systolic blood pressure 136 mm[Hg] Aziza Thompson PA-C Work Phone: [facility] 01-02-2022 12:52-0400 Diastolic blood pressure 77 mm[Hg] Mi Nurse Work Phone: [facility] 01-02-2022 12:52-0400 Heart rate 61 /min Mi Nurse Work Phone: [facility] 01-02-2022 12:52-0400 Systolic blood pressure 131 mm[Hg] Mi Nurse Work Phone: [facility] 12-19-2021 15:56-0400 Diastolic blood pressure 76 mm[Hg] Remy Perez MD Work Phone: [facility] 12-19-2021 15:56-0400 Systolic blood pressure 104 mm[Hg] Remy Perez MD Work Phone: [facility] 12-18-2021 15:06-0400 Body weight 54.88 kg Remy Perez MD Work Phone: [facility] 12-18-2021 15:06-0400 Heart rate 68 /min Remy Perez MD Work Phone: [facility] 12-18-2021 15:06-0400 Respiratory rate 14 /min Remy Perez MD Work Phone: [facility] 11-21-2021 08:59-0400 Body temperature 97.39 [degF] Aziza Thompson PA-C Work Phone: [facility] 11-21-2021 08:59-0400 Body weight 54.88 kg Aziza Thompson PA-C Work Phone: [facility] 11-21-2021 08:59-0400 Diastolic blood pressure 82 mm[Hg] Aziza Thompson PA-C Work Phone: [facility] 11-21-2021 08:59-0400 Heart rate 68 /min Aziza Thompson PA-C Work Phone: [facility] 11-21-2021 08:59-0400 Respiratory rate 16 /min Aziza Thompson PA-C Work Phone: [facility] 11-21-2021 08:59-0400 Systolic blood pressure 120 mm[Hg] Aziza Thompson PA-C Work Phone: [facility] 11-01-2021 15:40-0400 Body weight 54.43 kg Remy Perez MD Work Phone: [facility] 11-01-2021 15:40-0400 Diastolic blood pressure 86 mm[Hg] Remy Perez MD Work Phone: [facility] 11-01-2021 15:40-0400 Heart rate 68 /min Remy Perez MD Work Phone: [facility] 11-01-2021 15:40-0400 Respiratory rate 16 /min Remy Perez MD Work Phone: [facility] 11-01-2021 15:40-0400 Systolic blood pressure 132 mm[Hg] Remy Perez MD Work Phone: [facility] 10-12-2021 14:50-0400 Body height 157.48 cm CARDIOPULMONARY TECHNOLOGIST-C Clarissa Hamma CARDIOPULMONARY TECHNOLOGIST Work Phone: [facility] Work Phone: 10-12-2021 14:50-0400 Body mass index (BMI) [Ratio] 21.9 kg/m2 CARDIOPULMONARY TECHNOLOGIST-C Clarissa Saraesa CARDIOPULMONARY TECHNOLOGIST Work Phone: [facility] Work Phone: 10-12-2021 14:50-0400 Body temperature 97.9 [degF] CARDIOPULMONARY TECHNOLOGIST-C Clarissa Ruizesa CARDIOPULMONARY TECHNOLOGIST Work Phone: [facility] Work Phone: 10-12-2021 14:50-0400 Body weight 54.43 kg CARDIOPULMONARY TECHNOLOGIST-C Clarissa Hamma CARDIOPULMONARY TECHNOLOGIST Work Phone: [facility] Work Phone: 10-12-2021 14:50-0400 Diastolic blood pressure 106 mm[Hg] CARDIOPULMONARY TECHNOLOGIST-C Clarissa Ruizesa CARDIOPULMONARY TECHNOLOGIST Work Phone: [facility] Work Phone: 10-12-2021 14:50-0400 Heart rate 77 /min CARDIOPULMONARY TECHNOLOGIST-C Clarissa Ciesa CARDIOPULMONARY TECHNOLOGIST Work Phone: [facility] Work Phone: 10-12-2021 14:50-0400 Respiratory rate 16 /min CARDIOPULMONARY TECHNOLOGIST-C Clarissa Ciesa CARDIOPULMONARY TECHNOLOGIST Work Phone: [facility] Work Phone: 10-12-2021 14:50-0400 SaO2% (BldA) [Mass fraction] 98 % CARDIOPULMONARY TECHNOLOGIST-C Clarissa Ciesa CARDIOPULMONARY TECHNOLOGIST Work Phone: [facility] Work Phone: 10-12-2021 14:50-0400 Systolic blood pressure 158 mm[Hg] CARDIOPULMONARY TECHNOLOGIST-C Clarissa Hamma CARDIOPULMONARY TECHNOLOGIST Work Phone: [facility] Work Phone: 08-11-2021 13:25-0400 Body mass index (BMI) [Ratio] 21.6 kg/m2 CARDIOPULMONARY TECHNOLOGIST-C Clarissa Hamma CARDIOPULMONARY TECHNOLOGIST Work Phone: [facility] Work Phone: 08-11-2021 13:25-0400 Body temperature 98.9 [degF] CARDIOPULMONARY TECHNOLOGIST-C Clarissa Hamma CARDIOPULMONARY TECHNOLOGIST Work Phone: [facility] Work Phone: 08-11-2021 13:25-0400 Body weight 55.33 kg CARDIOPULMONARY TECHNOLOGIST-C Clarissa Hamma CARDIOPULMONARY TECHNOLOGIST Work Phone: [facility] Work Phone: 08-11-2021 13:25-0400 Diastolic blood pressure 80 mm[Hg] CARDIOPULMONARY TECHNOLOGIST-C Clarissa Hamma CARDIOPULMONARY TECHNOLOGIST Work Phone: [facility] Work Phone: 08-11-2021 13:25-0400 Heart rate 75 /min CARDIOPULMONARY TECHNOLOGIST-C Clarissa Hamma CARDIOPULMONARY TECHNOLOGIST Work Phone: [facility] Work Phone: 08-11-2021 13:25-0400 Respiratory rate 15 /min CARDIOPULMONARY TECHNOLOGIST-C Clarissa Hamma CARDIOPULMONARY TECHNOLOGIST Work Phone: [facility] Work Phone: 08-11-2021 13:25-0400 SaO2% (BldA) [Mass fraction] 99 % CARDIOPULMONARY TECHNOLOGIST-C Clarissa Hamma CARDIOPULMONARY TECHNOLOGIST Work Phone: [facility] Work Phone: 08-11-2021 13:25-0400 Systolic blood pressure 160 mm[Hg] CARDIOPULMONARY TECHNOLOGIST-C Clarissa Hamma CARDIOPULMONARY TECHNOLOGIST Work Phone: [facility] Work Phone: 06-18-2021 13:29-0500 Body height 157.48 cm Nikky Lagunas MERCHANDISE PRESENTATION ASSOCIATE [facility] Work Phone: 06-18-2021 13:29-0500 Body mass index (BMI) [Ratio] 21.77 kg/m2 Nikky Calderonrb MERCHANDISE PRESENTATION ASSOCIATE [facility] Work Phone: 06-18-2021 13:29-0500 Body surface area Derived from formula 1.53 m2 Nikky Calderonrb MERCHANDISE PRESENTATION ASSOCIATE [facility]; [facility] Work Phone: 06-18-2021 13:29-050 Body temperature 97.1 [degF] Nikky Slarb MERCHANDISE PRESENTATION ASSOCIATE [facility]; [facility] Work Phone: 06-18-2021 13:29-0500 Body weight 53.99 kg Nikky Yumikorb MERCHANDISE PRESENTATION ASSOCIATE [facility]; [facility] Work Phone: 06-18-2021 13:29-0500 Diastolic blood pressure 82 mm[Hg] Nikky Yumikorb MERCHANDISE PRESENTATION ASSOCIATE [facility]; [facility] Work Phone: Comment on above: Patient Position: Sitting; Cuff Location : Left Arm; Cuff Size: Standard 06-18-2021 13:29-0500 Heart rate 62 /min Nikky Calderonrb MERCHANDISE PRESENTATION ASSOCIATE [facility]; [facility] Work Phone: Comment on above: Pattern: Regular 06-18-2021 13:29-0500 Respiratory rate 16 /min Nikky Lagunas MERCHANDISE PRESENTATION ASSOCIATE [facility]; [facility] Work Phone: Comment on above: Pattern: Unlabored 06-18-2021 13:29-0500 SaO2% (BldA) [Mass fraction] 98 % Nikky Slarb MERCHANDISE PRESENTATION ASSOCIATE [facility]; [facility] Work Phone: Comment on above: Room air 06-18-2021 13:29-0500 Systolic blood pressure 124 mm[Hg] Nikky Slarb MERCHANDISE PRESENTATION ASSOCIATE [facility]; [facility] Work [...] Phone: 09-18-2020 13:26-0400 Body temperature 97.1 [degF] Carols Mon LPN [facility] [...] Comment on above: will report vitals when [facility] calls 03-21-2020 10:33-0500 Body weight 53.98 kg Christa Hernandes LPN [facility] Work Phone: Comment on above: will report vitals when [facility] calls 03-21-2020 10:33-0500 BSA (Body Surface Area) 1.53 m2 Christa Hernandes MERCHANDISE PRESENTATION ASSOCIATE [facility] Work Phone: Comment on above: will report vitals when [facility] calls 03-21-2020 10:33-0500 Height 157.48 cm Christa Hernandes LPN [facility] Work Phone: Comment on above: will report vitals when [facility] calls 02-28-2020 08:00-0500 BMI (Body Mass Index) 21.77 kg/m2 Carlos Mon LPN [facility] Work Phone: 02-28-2020 08:00-0500 BMI (Body Mass Index) 21.59 kg/m2 Clarissa Amato [facility] Work Phone: 02-28-2020 08:00-0500 Body Temperature 96.8 [degF] Carlos Mon LPN [facility] Work Phone: Comment on above: Method: Infrared 02-28-2020 08:00-0500 Body weight 53.99 kg Carlos Mon LPN [facility] Work Phone: 02-28-2020 08:00-0500 Body weight 53.55 kg Clarissa Amato [facility] Work Phone: 02-28-2020 08:00-0500 BP Diastolic 68 mm[Hg] Carlos Mon LPN [facility] Work Phone: Comment on above: Patient Position: Sitting; Cuff Location : Left Arm; Cuff Size: Standard 02-28-2020 08:00-0500 BP Systolic 110 mm[Hg] Carlos Mon LPN [facility] Work Phone: Comment on above: Patient Position: Sitting; Cuff Location : Left Arm; Cuff Size: Standard 02-28-2020 08:00-0500 BSA (Body Surface Area) 1.53 m2 Carlos Mon LPN [facility] Work Phone: 02-28-2020 08:00-0500 Height 157.48 cm Carlos Mon LPN [facility] Work Phone: 02-28-2020 08:00-0500 Pulse (Heart Rate) 68 /min Carlos Mon LPN [facility] Work Phone: Comment on above: Pattern: Regular 02-28-2020 08:00-0500 Pulse Oximetry 98 % Clarissa Amato [facility] Work Phone: Comment on above: Room air 02-28-2020 08:00-0500 Respiratory Rate 16 /min Carlos Mon LPN [facility] Work Phone: Comment on above: Pattern: Unlabored 02-28-2020 08:00-0500 SaO2% (BldA) [Mass fraction] 98 % Carlos Mon LPN [facility]; [facility] Work Phone: Comment on above: Room air 01-17-2020 09:01-0400 BMI (Body Mass Index) 21.59 kg/m2 Carlos Mon LPN [facility] Work Phone: 01-17-2020 09:01-0400 Body Temperature 97.8 [degF] Carlos Mon LPN [facility] Work Phone: Comment on above: Method: Infrared 01-17-2020 09:01-0400 Body weight 53.55 kg Carlos Mon LPN [facility] Work Phone: 01-17-2020 09:01-0400 BP Diastolic 78 mm[Hg] Carlos Mon LPN [facility] Work Phone: Comment on above: Patient Position: Sitting; Cuff Location : Left Arm; Cuff Size: Standard 01-17-2020 09:01-0400 BP Systolic 110 mm[Hg] Carlos Mon LPN [facility] Work Phone: Comment on above: Patient Position: Sitting; Cuff Location : Left Arm; Cuff Size: Standard 01-17-2020 09:01-0400 BSA (Body Surface Area) 1.53 m2 Carlos Mon LPN [facility] Work Phone: 01-17-2020 09:01-0400 Height 157.48 cm Carlos Mon LPN [facility] Work Phone: 01-17-2020 09:01-0400 Pulse (Heart Rate) 60 /min Carlos Mon LPN [facility] Work Phone: Comment on above: Pattern: Regular 01-17-2020 09:01-0400 Pulse Oximetry 99 % Clarissa Amato [facility] Work Phone: Comment on above: Room air 01-17-2020 09:01-0400 Respiratory Rate 16 /min Carlos Mon LPN [facility] Work Phone: Comment on above: Pattern: Unlabored 01-17-2020 09:01-0400 SaO2% (BldA) [Mass fraction] 99 % Carlos Mon LPN [facility] Work Phone: Comment on above: Room air Encounters Encounter Date Encounter Type Care Provider Facility Start: 11-02-2024 End: 11-02-2024 ambulatory [facility]y [facility] Start: 11-02-2024 End: 11-02-2024 Patient encounter procedure Remy Perez MD Work Phone[facility] Comment on above: Population Health Na [facility]igation Outreach [facility] Start: 11-01-2024 End: 11-01-2024 Chart abstracting Remy Perez MD Work Phone: [facility] Comment on above: Outside Stress Test Start: 10-31-2024 ambulatory Bg Goldstein Facility:[facility] Start: 10-31-2024 Non-patient / Non-visit Dr. Bg lund MD -[facility] Start: 10-31-2024 End: 10-31-2024 Chart abstracting Remy Perez MD Work Phone: [facility] Comment on above: Outside Testing Start: 10-27-2024 End: 10-27-[address] Remy Perez MD Work Phone: [facility] Start: 10-27-2024 End: 10-27-[address] Bg Goldstein MD -[facility] Work Phone: Start: 10-26-2024 End: 10-27-2024 ambulatory Remy Perez Facility:[facility] Start: 10-26-2024 Non-patient / Non-visit Dr. Bg lund MD -[facility] Start: 10-14-2024 End: 10-17-2024 Patient encounter procedure Aziza Thompson PA-C Work Phone: [facility] Comment on above: Nocturnal leg cramps (Primary Dx); Hypertension, essential Refill Request Start: 10-14-2024 End: 10-14-2024 ambulatory REMY PEREZ Facility:[facility] Start: 10-11-2024 End: 10-11-2024 Chart abstracting Remy Perez MD Work Phone: [facility] Comment on above: Received Outside Med ical Records (Podiatry OV notes) Start: 10-07-2024 End: 10-07-2024 ambulatory Quoc Mccracken PT Work Phone: [facility] Comment on above: Plantar fasciitis of right foot (Primary Dx) Start: 09-28-2024 End: 09-28-2024 Office outpatient visit 25 minutes Aziza Thompson PA-C Work Phone: [facility] Comment on above: Nocturnal leg cramps (Primary Dx); RLS (restless legs syndrome); Bradycardia, drug induced; Hyperlipidemia, mixed Start: 09-28-2024 End: 09-28-2024 ambulatory REMY PEREZ Facility:[facility] Start: 09-21-2024 End: 09-21-2024 ambulatory Remy Perez MD Work Phone: [facility] Comment on above: Elevated TSH Start: 09-20-2024 End: 09-20-2024 ambulatory REMY PEREZ Facility:[facility] Start: 09-20-2024 End: 09-20-2024 Chart abstracting Remy Perez MD Work Phone: [facility] Comment on above: Outside Ghmx-Qlm-HAI Ordered Start: 09-19-2024 End: 09-19-[address] Remy Perez MD Work Phone: [facility] Work Phone: Start: 09-19-2024 End: 09-19-[address] Bg Goldstein MD -Laboratory Work Phone: Start: 09-19-2024 End: 09-19-[address] Bg Goldstein MD -[facility] Work Phone: Start: 09-19-2024 End: 09-19-[address] Remy Perez MD Work Phone: [facility] Work Phone: Start: 09-19-2024 End: 09-19-2024 ambulatory Remy Perez Facility:[facility] Start: 09-14-2024 End: 09-15-2024 Refill Remy Perez MD Work Phone: [facility] Comment on above: Refill Request Start: 08-25-2024 End: 08-25-2024 Office outpatient visit 25 minutes Aziza Thompson PA-C Work Phone: [facility] Comment on above: Essential (primary) hypertension (Primary Dx); Palpitations; Muscle cramp; Generalized anxiety disorder Start: 08-25-2024 End: 08-[facility] Start: 08-22-2024 End: 08-22-2024 ambulatory Quoc Mccracken PT Work Phone: [facility] Comment on above: Plantar fasciitis of right foot (Primary Dx) Start: 08-09-2024 End: 08-09-2024 Follow-up encounter Aziza Thompson PA-C Work Phone: [facility] Comment on above: Results Start: 08-08-2024 End: 08-08-2024 [facility] REMY Yuen [facility] Facility:[facility] Start: 08-08-2024 End: 08-08-2024 Patient encounter procedure Aziza Thompson PA-C Work Phone: [facility] Comment on above: Encounter for Medica re annual wellness exam (Primary Dx); Advance directive discussed with patient; Screening for depression; Hypertension, essential; Encounter for screening examination for other mental health and behavioral disorders; Hyperlipidemia, mixed; Postoperative hypothyroidism; Palpitations; Elevated blood sugar; Plantar fasciitis; RLS (restless legs syndrome); Nocturnal leg cramps; Claudication Start: 08-08-2024 End: 08-08-2024 [facility] Alpa PEREZ Facility:[facility] Start: 08-04-2024 End: 08-04-2024 ambulatory Quoc Mccracken PT Work Phone: [facility] Comment on above: Plantar fasciitis of right foot (Primary Dx); Lumbar back pain; Spondylosis of lumbar region without myelopathy or radiculopathy Start: 07-20-2024 End: 07-20-2024 ambulatory Remy Perez MD Work Phone: [facility] Start: 07-20-2024 End: 07-20-2024 Patient encounter procedure Remy Perez MD Work Phone: [facility] Comment on above: Re: PT/dry needling referral Start: 07-20-2024 End: 07-25-2024 Telephone encounter Remy Perez MD Work Phone: [facility] Comment on above: Patient Question Start: 07-19-2024 End: 07-22-2024 Follow-up encounter Jarad Paredes MD Work Phone: [facility] [place] Comment on above: Results Start: 07-18-2024 End: 07-18-2024 ambulatory REMY PEREZ Facility:[facility] Start: 07-18-2024 End: 07-18-2024 ambulatory Quoc Mccracken PT Work Phone: [facility] Comment on above: Plantar fasciitis of right foot Start: 07-18-2024 End: 07-18-2024 Subsequent hospital visit by physician [facility] Comment on above: Encounter for screen ing mammogram for breast cancer [Z12.31] Start: 06-28-2024 End: 06-29-2024 ambulatory Remy Perez MD Work Phone: [facility] Comment on above: Blood pressure Start: 06-21-2024 End: 07-22-2024 ambulatory Remy Perez MD Work Phone: [facility] Comment on above: Heel injection Start: 06-02-2024 End: 06-02-2024 Patient encounter procedure Remy Perez MD Work Phone: [facility] Comment on above: Plantar fasciitis (P rimary Dx) Start: 06-02-2024 End: 06-02-2024 ambulatory REMY PEREZ Facility:[facility] Start: 05-30-2024 End: 05-30-2024 ambulatory Aziza Thompson PA-C Work Phone: [facility] Comment on above: Imaging result Start: 05-30-2024 End: 05-30-2024 Follow-up encounter Aziza Thompson PA-C Work Phone: [facility] Start: 05-27-2024 End: 05-30-2024 ambulatory Aziza Thompson PA-C Work Phone: [facility] Comment on above: Imaging results? Start: 05-26-2024 End: 05-26-2024 Subsequent hospital visit by physician [facility] Work Phone: Radiology Comment on above: Chronic left hip charo n [M25.552, G89.29] Start: 05-26-2024 End: 05-26-2024 ambulatory REMY PEREZ Facility:[facility] Start: 05-26-2024 End: 05-26-2024 Patient encounter procedure [facility] Comment on above: Chronic left hip charo n (Primary Dx); Plantar fasciitis of right foot Start: 05-17-2024 End: 05-17-2024 Refill Remy Perez MD Work Phone: [employer] [facility] [employer] Comment on above: Refill Request Start: 04-11-2024 End: 04-11-2024 Refill Jose Portillo MD Work Phone: [facility] Comment on above: Refill Request Start: 03-27-2024 End: 03-28-2024 Refill Rupinder Goss APRN.PATIENT ACCOUNTS COORDINATOR Work Phone: [facility] Comment on above: Refill Request Start: 03-24-2024 End: 03-24-2024 ambulatory Quoc Mccracken PT Work Phone: [facility] Comment on above: Lumbar back pain (Pr imary Dx) Start: 03-10-2024 End: 03-10-2024 ambulatory REMY PEREZ Facility:[facility] Start: 03-10-2024 End: 03-10-2024 Patient encounter procedure Vale Watt APRN.PATIENT ACCOUNTS COORDINATOR Work Phone: [facility] Comment on above: Sinobronchitis (Prim [...] Telephone encounter Aziza Thompson PA-C Work Phone: [facility] Comment on above: Results Start: 02-08-2024 End: 02-08-2024 ambulatory REMY PEREZ Facility:[facility] Start: 02-08-2024 End: 02-08-2024 Patient encounter procedure Aziza Thompson PA-C Work Phone: [facility] Comment on above: Hypertension, essent ial (Primary Dx); Hyperlipidemia, mixed; Elevated blood sugar; Postoperative hypothyroidism; RLS (restless legs syndrome); Encounter for immunization Start: 02-03-2024 End: 02-03-2024 Refill Aziza Thompson PA-C Work Phone: [facility] Comment on above: Refill Request Start: 01-21-2024 End: 01-21-2024 ambulatory Quoc Mccracken PT Work Phone: [facility] Comment on above: Lumbar back pain; Spondylosis of lumbar region without myelopathy or radiculopathy Start: 01-21-2024 End: 01-21-2024 Patient encounter procedure Remy Perez MD Work Phone: [facility] Comment on above: Physical therapy ref errals Start: 01-07-2024 End: 01-07-2024 E-mail encounter from caregiver [facility] Start: 01-07-2024 End: 01-07-2024 Patient encounter procedure [facility] Comment on above: Instructions from yo ur upcoming appointment Start: 12-24-2023 End: 12-24-2023 ambulatory No Pcp COMMUNICATION ELECTRONIC TECHNICIAN [facility] Start: 12-24-2023 End: 12-24-2023 Patient encounter procedure No Pcp COMMUNICATION ELECTRONIC TECHNICIAN [facility] Start: 12-23-2023 End: 12-23-2023 Refill Aziza Thompson PA-C Work Phone: [facility] Comment on above: Refill Request Start: 12-22-2023 End: 12-23-2023 ambulatory Aziza DANIELS-Freedom Work Phone: [facility] Comment on above: My mri results Start: 12-18-2023 End: 12-22-2023 ambulatory Aziza Thompson PA-C Work Phone: [facility] Comment on above: Test results Start: 12-17-2023 End: 12-22-2023 Telephone encounter Aziza Thompson PA-C Work Phone: [facility] Comment on above: Results Start: 12-17-2023 End: 12-17-2023 ambulatory REMY PEREZ Facility:[facility] Start: 12-17-2023 End: 12-17-2023 Subsequent hospital visit by physician Mri [facility] (I-Stat/1.5t) Work Phone: Radiology Comment on above: Radiculopathy of lum bar region [M54.16] Start: 11-19-2023 End: 11-19-2023 ambulatory REMY PEREZ Facility:[facility] Start: 11-19-2023 End: 11-19-2023 Patient encounter procedure Aziza Thompson PA-C Work Phone: [facility] Comment on above: Radiculopathy of lum bar region (Primary Dx); Chronic midline low back pain without sciatica; Decreased reflex Start: 11-11-2023 Refill Jose Portillo MD Work Phone: [facility] Comment on above: Refill Request Start: 08-26-2023 End: 08-26-2023 ambulatory Aziza Jay DANIELS-C Work Phone: [facility] Comment on above: Osteopenia, senile ( Primary Dx) Vit D level Start: 08-26-2023 E-mail encounter jhonathan m caregiver Aziza Jay DANIELS-C Work Phone: [facility] Start: 08-26-2023 End: 08-26-2023 Telemedicine consultation with patient Aziza Jay DANIELS-C Work Phone: [facility] Start: 08-17-2023 Telephone encounter Aziza Marjan freeman PA-C Work Phone: [facility] Comment on above: Results Start: 08-14-2023 End: 08-14-2023 Subsequent hospital visit by physician Bone Density [facility] Work Phone: Radiology Comment on above: Asymptomatic postmen opausal status [Z78.0] Start: 08-06-2023 Refill Jose Portillo MD Work Phone: [facility] Comment on above: Refill Request Start: 08-04-2023 Telephone encounter Aziza Marjan freeman PA-C Work Phone: [facility] Comment on above: Results Start: 07-27-2023 ambulatory Aziza Shashi yeung PA-C Work Phone: [facility] Comment on above: TSH question Start: 07-27-2023 Telephone encounter Aziza Marjan freeman PA-C Work Phone: [facility] Comment on above: Results Start: 07-23-2023 End: 07-23-2023 Patient encounter procedure Aziza Jay DANIELS-C Work Phone: [facility] Comment on above: Encounter for Medica re annual wellness exam (Primary Dx); Advance directive discussed with patient; Postoperative hypothyroidism; Hyperlipidemia, mixed; Hypertension, essential; Primary insomnia; SHAYLA (generalized anxiety disorder); Asymptomatic postmenopausal status; RLS (restless legs syndrome); Elevated blood sugar; Rhinitis, unspecified type Start: 07-03-2023 End: 07-03-2023 Patient encounter procedure Remy Perez MD Work Phone: [facility] Comment on above: Bacterial sinusitis (Primary Dx) Start: 06-26-2023 Refill Remy pope MD Work Phone: [facility] Comment on above: Refill Request Start: 06-24-2023 End: 06-24-2023 Patient encounter procedure Manuel Simpson COMMUNICATION ELECTRONIC TECHNICIAN.PATIENT ACCOUNTS COORDINATOR Work Phone: [facility] Comment on above: Sinobronchitis (Prim hakan Dx) Refill Request Start: 06-11-2023 End: 06-11-2023 ambulatory Dedra Mcnally EVELIN.PATIENT ACCOUNTS COORDINATOR Work Phone: [facility] Comment on above: Bacterial sinusitis (Primary Dx) Start: 06-11-2023 End: 06-11-2023 Telemedicine consultation with patient Dedra Mcnally EVELIN.PATIENT ACCOUNTS COORDINATOR Work Phone: [facility] Start: 05-21-2023 Documentation procedure Mammography Coordinator [facility] Start: 05-21-2023 Letter encounter Mammography Coordin [facility] Start: 04-19-2023 End: 04-19-2023 ambulatory Sherlyn Frazier COMMUNICATION ELECTRONIC TECHNICIAN.PATIENT ACCOUNTS COORDINATOR Work Phone: Telemedicine Comment on above: Rhinosinusitis (Prim hakan Dx) Start: 04-19-2023 End: 04-19-2023 Telemedicine consultation with patient Sherlyn Frazier COMMUNICATION ELECTRONIC TECHNICIAN.PATIENT ACCOUNTS COORDINATOR Work Phone: [facility] Start: 04-08-2023 End: 04-08-2023 Subsequent hospital visit by physician Xr [facility] Work Phone: Radiology Comment on above: Acute cough [R05.1] Start: 04-08-2023 End: 04-08-2023 Patient encounter procedure Sophia Jin COMMUNICATION ELECTRONIC TECHNICIAN.PATIENT ACCOUNTS COORDINATOR Work Phone: [facility] Comment on above: Acute cough (Primary Dx) Start: 02-13-2023 Refill Aziza Danielle on PA-C Work Phone: [facility] Comment on above: Refill Request Start: 02-11-2023 End: 02-11-2023 Subsequent hospital visit by physician [facility] Work Phone: Radiology Comment on above: Acute pain of both k nees [M25.561, M25.562] Start: 02-11-2023 End: 02-11-2023 Patient encounter procedure Keely Doll COMMUNICATION ELECTRONIC TECHNICIANEvelynePATIENT ACCOUNTS COORDINATOR Work Phone: [facility] Comment on above: Acute pain [...] encounter (Primary Dx) Start: 12-29-2022 Refill Louise DANIELS -C Work Phone: General Surgery Comment on above: Refill Request Start: 12-26-2022 Telephone encounter Aziza DANIELS-C Work Phone: [facility] Comment on above: Medication Problem Start: 12-25-2022 Telephone encounter Aziza DANIELS-C Work Phone: [facility] Comment on above: Results Start: 12-24-2022 End: 12-24-2022 Patient encounter procedure Aziza KUMARC Work Phone: [facility] Comment on above: Postoperative hypoth yroidism (Primary Dx); Elevated blood sugar; Hypertension, essential; Primary insomnia; Hyperlipidemia, mixed Start: 12-16-2022 End: 12-16-2022 ambulatory Bisi Mcnair SORTER/ASSAY TECH Work Phone: [facility] Physical [...] Medical Advice Remy Perez MD Work Phone: [facility] Comment on above: Medication refills Start: 10-14-2022 End: 10-14-2022 ambulatory Quoc Mccracken PT Work Phone: [facility] Comment on above: Fall (on) (from) uns pecified stairs and steps, subsequent encounter (Primary Dx) Start: 09-23-2022 End: 09-23-2022 ambulatory Bisi Mcnair SORTER/ASSAY TECH Work Phone: [facility] Comment on above: Fall (on) (from) uns pecified stairs and steps, subsequent encounter (Primary Dx) Start: 08-29-2022 End: 08-29-2022 ambulatory Quoc Mccracken PT Work Phone: [facility] Comment on above: Fall (on) (from) uns pecified stairs and steps, subsequent encounter (Primary Dx) Start: 08-18-2022 End: 08-18-2022 Patient encounter procedure Rupinder Goss APRN.PATIENT ACCOUNTS COORDINATOR Work Phone: [facility] Comment on above: Fall (on) (from) uns pecified stairs and steps, subsequent encounter (Primary Dx) Start: 07-17-2022 Telephone encounter Rupinder philip APRN.PATIENT ACCOUNTS COORDINATOR Work Phone: [facility] Comment on above: Results Start: 07-14-2022 End: 07-14-2022 Subsequent hospital visit by physician Xr [facility] Work Phone: Radiology Comment on above: Fall (on) (from) uns pecified stairs and steps, subsequent encounter [W10.9XXD] Start: 07-14-2022 End: 07-14-2022 Patient encounter procedure Rupinder Goss APRN.PATIENT ACCOUNTS COORDINATOR Work Phone: [facility] Comment on above: Fall (on) (from) uns [...] of right shoulder Start: 07-04-2022 ambulatory Aziza [place] on PA-C Work Phone: [facility] Comment on above: Pain medication Start: 07-03-2022 Telephone encounter Rupinder philip APRN.PATIENT ACCOUNTS COORDINATOR Work Phone: [facility] Comment on above: Results Start: 07-02-2022 Chart abstracting Remy allen MD Work Phone: [facility] Comment on above: ER F/U Start: 07-01-2022 End: 07-01-2022 Subsequent hospital visit by physician Xr [facility] Work Phone: Radiology Comment on above: Acute pain of right shoulder [M25.511] Start: 07-01-2022 End: 07-01-2022 Patient encounter procedure Rupinder Goss APRN.PATIENT ACCOUNTS COORDINATOR Work Phone: [facility] Comment on above: Fall (on) (from) uns pecified stairs and steps, subsequent encounter (Primary Dx); Acute pain of right shoulder Start: 07-01-2022 ambulatory Aziza [place] on PA-C Work Phone: [facility] Start: 07-01-2022 Follow-up encounter Aziza freeman PA-C Work Phone: [facility] Comment on above: Follow up on Thursday ER visit Start: 06-30-2022 Refill Aziza Danielle on PA-C Work Phone: [facility] Comment on above: Refill Request Start: 06-29-2022 End: 06-29-2022 [facility] Start: 06-27-2022 ambulatory Aziza Danielle on PA-C Work Phone: [facility] Comment on above: Lipitor Start: 06-26-2022 End: 06-26-2022 Patient encounter procedure Louise Newton PA-C Work Phone: General Surgery Comment on above: Screening for colon cancer Start: 06-22-2022 ambulatory Aziza Danielle on PA-C Work Phone: [facility] Comment on above: Ear pain Start: 06-20-2022 ambulatory Aziza Danielle on PA-C Work Phone: [facility] Comment on above: Creatinine/bloodwork question Start: 06-19-2022 End: 06-19-2022 Subsequent hospital visit by physician Xr [facility] Work Phone: Radiology Comment on above: Positive FELICIA (antinu clear antibody) [R76.8] Start: 06-19-2022 End: 06-19-2022 Patient encounter procedure Aziza Thompson PA-C Work Phone: [facility] Comment on above: Encounter for Medica re annual wellness exam (Primary Dx); Advanced care planning/counseling discussion; Hyperlipidemia, mixed; Hypertension, essential; Postoperative hypothyroidism; Elevated blood sugar; RLS (restless legs syndrome); Screening for colon cancer; Primary insomnia; Encounter for gynecological examination without abnormal finding Start: 06-19-2022 End: 06-19-2022 Patient encounter status Aziza Thompson PA-C Work Phone: [facility] Start: 06-09-2022 Telephone encounter Aziza DANIELS-C Work Phone: [facility] Comment on above: Results Start: 06-05-2022 End: 06-05-2022 Subsequent hospital visit by physician [facility] (I-Stat) Work Phone: Cat Scan Comment on above: Bone lesion [M89.9] Start: 05-21-2022 End: 05-21-2022 ambulatory Jeyson Norman PT [place] Comment on above: Lumbar back pain (Pr imary Dx) Start: 05-19-2022 Telephone encounter Aziza Marjan DANIELS-C Work Phone: [facility] Comment on above: Results Start: 05-16-2022 End: 05-16-2022 Subsequent hospital visit by physician Xr [facility] Work Phone: Radiology Comment on above: Lumbar back pain [M5 4.50] Start: 05-16-2022 End: 05-16-2022 Office outpatient visit 25 minutes Aziza Thompson PA-C Work Phone: [facility] Comment on above: Lumbar back pain (Pr imary Dx) Start: 05-07-2022 Telephone encounter Genie sutherland MD Work Phone: [facility] Comment on above: Follow Up Start: 04-24-2022 Get Medical Advice Remy Perez MD Work Phone: [facility] Comment on above: Medication refills Start: 04-04-2022 End: 04-04-2022 Patient encounter procedure Remy Perez MD Work Phone: [facility] Comment on above: Bacterial sinusitis (Primary Dx) Start: 03-28-2022 End: 03-28-2022 Patient encounter procedure Genie Quispe MD Work Phone: Rheumatology Comment on above: Positive FELICIA (antinu clear antibody) (Primary Dx); Left upper extremity numbness; Left hand pain; Left hand weakness; Sicca syndrome (HCC); Malaise and fatigue; Pain in joint, multiple sites; Encounter for screening for osteoporosis Start: 02-21-2022 End: 02-21-2022 Admission to same day surgery center [facility] Start: 02-21-2022 End: 02-21-2022 ambulatory [facility] Work Phone: Start: 02-17-2022 ambulatory Remy pope MD Work Phone: [facility] Comment on above: Tramadol Start: 02-15-2022 Refill Remy pope MD Work Phone: [facility] Comment on above: Refill Request Start: 02-13-2022 ambulatory Azizalaurence yeung PA-C Work Phone: [facility] Comment on above: shoulder pain Start: 01-31-2022 Telephone encounter Remy Perez MD Work Phone: [facility] Comment on above: Results Referral Information Refill Request Start: 01-28-2022 Telephone encounter Aziza DANIELS-C Work Phone: [facility] Comment on above: Results Start: 01-27-2022 End: 01-27-2022 Patient encounter procedure Aziza DANIELS-C Work Phone: [facility] Comment on above: Preop examination (P rimary Dx); Neuroma of foot; Hypertension, essential; Postoperative hypothyroidism; Elevated blood sugar; Encounter for lipid screening for cardiovascular disease; Need for influenza vaccination; Need for vaccination Start: 01-27-2022 End: 01-27-2022 Preprocedural examination done Aziza Thompson PA-C Work Phone: [facility] Start: 01-15-2022 ambulatory REMY PEREZ Facili ty:[facility] Start: 01-15-2022 End: 01-15-2022 Subsequent hospital visit by physician Screen/Diagnostic Mammo [facility] Work Phone: Mammography Comment on above: Encounter for screen ing mammogram for breast cancer [Z12.31] Start: 01-15-2022 Documentation procedure Mammography Coordinator [facility] Start: 01-15-2022 Letter encounter Mammography Coordin ator [facility] Start: 01-15-2022 Telephone encounter [facility]: Results Start: 01-11-2022 Refill [facility] Comment on above: Refill Request Start: 01-02-2022 Telephone encounter [facility] Comment on above: Blood Pressure Check Start: 01-02-2022 End: 01-02-2022 Nursing evaluation of patient and report Mi Nurse Work Phone: [facility] Comment on above: Hypertension, essent ial (Primary Dx) Start: 12-27-2021 ambulatory Remy pope MD Work Phone: [facility] Comment on above: Ongoing pain Start: 12-26-2021 Telephone encounter Remy Perez MD Work Phone: [facility] Comment on above: Results (EMG) Start: 12-25-2021 End: 12-25-2021 ambulatory [facility] Work Phone: Start: 12-25-2021 End: 12-25-2021 Patient encounter procedure [facility] Start: 12-19-2021 ambulatory Remy pope MD Work Phone: [facility] Comment on above: Blood pressure numbe rs Start: 12-18-2021 End: 12-18-2021 Patient encounter procedure Remy Perez MD Work Phone: [facility] Comment on above: Left upper extremity numbness; Left hand pain; Left arm pain; Left hand weakness; Numbness and tingling of left upper extremity Start: 11-30-2021 ambulatory Aziza yeung PA-C [facility] Comment on above: Question/request for Rx Start: 11-25-2021 Telephone encounter Aziza DANIELS-C [facility] Comment on above: Results Start: 11-22-2021 ambulatory Remy pope MD Work Phone: [facility] Start: 11-22-2021 Telephone encounter Aziza freeman PA-C Work Phone: [facility] Comment on above: Results Need prescription re fills Start: 11-21-2021 ambulatory Remy pope MD Work Phone: [facility] Comment on above: Nerve study Start: 11-21-2021 End: 11-21-2021 Subsequent hospital visit by physician Xr [facility] Work Phone: Radiology Comment on above: Left hand weakness [ R29.898] Start: 11-21-2021 End: 11-21-2021 Patient encounter procedure Aziza Thompson PA-C Work Phone: [facility] Comment on above: Left hand weakness ( Primary Dx); Left hand pain; Positive FELICIA (antinuclear antibody); Numbness and tingling in left hand; Left arm pain; Numbness and tingling of left upper extremity Start: 11-20-2021 ambulatory Remy pope MD Work Phone: [facility] [place] Start: 11-06-2021 ambulatory Remy pope MD Work Phone: [facility] Comment on above: Physical therapy Start: 11-04-2021 End: 11-04-2021 Subsequent hospital visit by physician Xr [facility] Work Phone: Radiology Comment on above: Left arm pain [M79.6 02] Start: 11-04-2021 Telephone encounter Remy Perez MD Work Phone: [facility] Comment on above: Results Start: 11-02-2021 ambulatory Remy pope MD Work Phone: [facility] Comment on above: Nerve pain Start: 11-01-2021 End: 11-01-2021 Patient encounter procedure Remy Perez MD Work Phone: [facility] Comment on above: Left arm pain (Prima ry Dx); Left hand weakness; Numbness and tingling of left upper extremity; Upper back pain Start: 10-14-2021 End: 10-14-2021 Patient encounter procedure Clarissa Amato Work Phone: [facility] Start: 10-14-2021 Review Clarissa Amato Work Phone: [facility] Start: 10-12-2021 End: 10-12-2021 Emergency department patient visit CARDIOPULMONARY TECHNOLOGIST-C Clarissa Amato CARDIOPULMONARY TECHNOLOGIST Work Phone: [facility] Start: 10-11-2021 End: 10-11-2021 Annotation/Addendum Clarissa Amato Work Phone: [facility] Start: 08-11-2021 End: 08-11-2021 Patient encounter procedure CARDIOPULMONARY TECHNOLOGIST-C Clarissa Amato CARDIOPULMONARY TECHNOLOGIST Work Phone: [facility] Start: 06-18-2021 End: 06-18-2021 Office outpatient visit 15 minutes Clarissa Amato PATIENT ACCOUNTS COORDINATOR Work Phone: [facility] Start: 05-03-2021 End: 05-03-2021 Annotation/Addendum Clarissa Amato PATIENT ACCOUNTS COORDINATOR Work Phone: [facility] Start: 05-03-2021 Review Clarissa Amato PATIENT ACCOUNTS COORDINATOR Work Phone: [facility] Start: 05-03-2021 End: 05-03-2021 Office outpatient visit 15 minutes Clarissa Amato PATIENT ACCOUNTS COORDINATOR Work Phone: [facility] Start: 03-26-2021 Review Clarissa Amato PATIENT ACCOUNTS COORDINATOR Work Phone: [facility] Start: 01-11-2021 End: 01-11-2021 Office outpatient visit 10 minutes Clarissa Amato PATIENT ACCOUNTS COORDINATOR Work Phone: [facility] Start: 12-17-2020 End: 12-17-2020 Annotation/Addendum Clarissa Amato PATIENT ACCOUNTS COORDINATOR Work Phone: [facility] Start: 09-21-2020 End: 09-21-2020 Office outpatient visit 10 minutes Clarissa Amato PATIENT ACCOUNTS COORDINATOR Work Phone: [facility] Start: 09-18-2020 End: 09-18-2020 Office outpatient visit 15 minutes Clarissa Amato PATIENT ACCOUNTS COORDINATOR Work Phone: [facility] Start: 06-08-2020 End: 06-08-2020 Office outpatient visit 15 minutes Clarissa Amato [facility] Start: 05-01-2020 End: 05-01-2020 Annotation/Addendum Clarissa Amato [facility] Start: 03-21-2020 End: 03-21-2020 Office outpatient visit 25 minutes Clarissa Amato [facility] Start: 02-28-2020 End: 02-28-2020 Office outpatient visit 25 minutes Clarissa Amato [facility] Start: 02-28-2020 Review Clarissa Amato [facility] Start: 01-17-2020 Review Clarissa Amato [facility] Start: 01-17-2020 End: 01-13-2020 Annotation/Addendum Clarissa Amato [facility] Start: 01-17-2020 End: 01-17-2020 Office outpatient new 45 minutes Clarissa Amato [facility] Internal Medicine Procedures Date Procedure Procedure Detail Performing Clinician Start: 10-27-2024 Radionuclide imaging of perfusion of myocardium under exercise stress Dr. Remy Perez MD Work Phone: Start: 09-28-2024 Follow-up visit Follow Up AZIZA THOMPSON Start: 09-19-2024 Thyrotropin [Units/volume] in Serum or Plasma [facility] Start: 08-08-2024 Adult depression screening assessment Aziza Thompson PA-C Work Phone: Start: 08-08-2024 Lipid 1995 panel - Serum or Plasma Aziza Thompson PA-C Work Phone: Start: 02-08-2024 Lipid 1995 panel - Serum or Plasma Aziza Thompson PA-C Work Phone: Start: 12-17-2023 Mri spinal canal lumbar w/o contrast material Aziza Thompson PA-C Work Phone: Start: 07-24-2023 Lipid 1996 panel - Serum or Plasma Aziza Thompson PA-C Work Phone: Start: 07-23-2023 Adult depression screening assessment Jose Portillo MD Work Phone: Start: 04-08-2023 COVID & INFLUENZA A/B & RSV NAAT, ROUTINE Sophia Jin COMMUNICATION ELECTRONIC TECHNICIAN.PATIENT ACCOUNTS COORDINATOR Work Phone: Start: 04-08-2023 Radiologic exam chest 2 views Sophiacoral Jin COMMUNICATION ELECTRONIC TECHNICIAN.PATIENT ACCOUNTS COORDINATOR Work Phone: Start: 02-11-2023 Radiologic exam knee complete 4/more views Keely Doll COMMUNICATION ELECTRONIC TECHNICIAN.PATIENT ACCOUNTS COORDINATOR Work Phone: Start: 01-22-2023 Level iv surg pathology gross&microscopic exam Hugh Cole MD Work Phone: Start: 01-22-2023 Colonoscopy flx dx w/collj spec when pfrmd Louise Newton PA-C Work Phone: Start: 01-22-2023 Colonoscopy Louise Newton PA-C Work Phone: Start: 12-24-2022 Lipid 1996 panel - Serum or Plasma Quoc Mccracken PT Work Phone: Start: 07-14-2022 Radex spine lumbosacral 2/3 views Rupinder Goss COMMUNICATION ELECTRONIC TECHNICIAN.PATIENT ACCOUNTS COORDINATOR Work Phone: Start: 07-01-2022 Radex shoulder complete minimum 2 views Rupinder Goss COMMUNICATION ELECTRONIC TECHNICIAN.PATIENT ACCOUNTS COORDINATOR Work Phone: Start: 06-29-2022 Computed tomography of [...] Emergency Department Summary Comments: See Note; NOTES: [facility] Medical Records Department [address] [place] [address] Emergency Department Summary 10/12/21 MR#: [id number] Acct: [id number] Name: MICHAEL VELAZQUEZ Rep #: [id number] : 1955 65 From: Genie Dumont MD [...] up to mid 99 range. No diarrhea. [facility] Medical History Anxiety Back pain Breast lump [...] 76.7 H Lymph % (Auto) 9.5 L [place] % (Auto) 12.8 H Eos % (Auto) [...] Clarissa Amato NP Referrals: Clarissa Amato NP, CARDIOPULMONARY TECHNOLOGIST-C [Primary Care Provider] - 1-2 Weeks Disposition Disposition: Home, Self Care Discharge Date/Time: 10/12/21 17:52 What to do if you have Problems For any increased pain, shortness of breath, bleeding, nausea or vomiting, chest pain, or any unexpected problems, contact your Primary Care Provider. Call [facility] ([phone]) or report to the closest Emergency Room. Call 911 if necessary. 10/12/212004 <Electronically signed by Genie Dumont MD> Cosigner Signature (if applicable): CC: MARGUREITE Romo Lima Signed Clarissa Amato Work Phone: Start: 08-11-2021 End: 08-11-2021 Urgent Care Visit Report Comments: See Note; NOTES: [facility] [address] [place] [address] [address] [place] [address] OFFICE VISIT Date of Service: 08/11/21 MR#: [id number] Acct: [id number] Name: MICHAEL VELAZQUEZ Rep #: [id number] : 1955 Provider: MARGUERITE matthews Age/Sex: 65/F Location: [facility] Status: Signed Intake Vital Signs 08/11/21 13:25 [...] you participate in: walking HPI HPI Details: MICHAEL VELAZQUEZ, is a 65 F who presents [...] Nutritional Appearance: average body habitus Orientation: alert HENMT Head: normal to inspection Ears: hearing [...] 08/11/21 1343 <Electronically signed by Krystal Kwong NP, NP-C> Date Krystal AGUDELOC Cosigner Signature: Date (if applicable) CC: Clarissa Amato Work Phone: Start: 2020 End: 12-17-2020 Endocrinology Visit Report Comments: See Note; NOTES: [facility] [address] [place] [address] OFFICE VISIT Date of Service: 12/14/20 MR#: [id number] Acct: [id number] Name: MICHAEL VELAZQUEZ Rep #: [id number] : 1955 Provider: Jairo Ba Age/Sex: 65/F Location: [facility] Status: Signed Intake Vital Signs 12/14/20 14:55 Height 5 ft 2 in Weight: 122 lb 2 oz BMI 22.3 BP 122/80 H Blood Pressure Location Lt brachial Position Sitting Respiration 16 Pulse 64 Pulse Source Monitor Temp 97.9 F Temp Source Temporal Pulse Oximetry (%) 99 Oxygen Delivery Method room air Intake Visit Reasons: [id number]-[id number]-YOT MAILED School Bus Operator Required: No Accompanied by: Self Is patient [...] DAILY #30 tab 12/14/20 [Rx Confirmed 12/14/20] COUNT INCLUDES THE [facility] Medical History (Updated 12/17/20 @ 07:57 by [...] you participate in: walking HPI HPI Details: MICHAEL VELAZQUEZ, is a 65 F who presents to the office today for evaluation and management of thyroid disease. She reports that she presented in October, with goiter and compression symptoms. She had thyroidectomy in September,. Pathology revealed lymphocytic thyroiditis. She then moved to [place] from [place] and her was diagnosed with cancer. She [...] Reason: Order Changed 10 mg PO DAILY 12/17/20 2304 <Electronically signed by César Simpson MD> Date César Simpson MD Cosigner Signature: Date (if applicable) CC: CARDIOPULMONARY TECHNOLOGISTAbigail Ruizranjanaalpa [facility] Work Phone: Start: 05-04-2020 End: 05-04-2020 Head/Neck Soft Tissue Comments: See Note; NOTES: [facility] Imaging Services [address] [place] [address] [place] [address] Head/Neck Soft Tissue MR#: [id number] Acct: [id number] Name: MICHAEL VELAZQUEZ Rep #: [id number] : 1955 F 64 From: Lisa Ng MD PCP: MARGUERITE Sebastian Status: REG CLI Study: Head/Neck Soft Tissue Date of Exam: 05/04/20 Exam# [id number] Ordering Dr: Jose Rafael Marc MD STUDY: [...] 20:29 EST , Service support , CC: CARDIOPULMONARY TECHNOLOGIST-C Clarissa Amato; Dr. Jose Rafael Marc MD Tank Tender: Signed Jose Rafael Marc Work Phone: Start: 03-07-2020 End: 03-07-2020 Upper GI w/BA Swallow Comments: See Note; NOTES: [facility] Imaging Services [address] [place] [address] Upper GI w/BA Swallow MR#: [id number] Acct: [id number] Name: MICHAEL VELAZQUEZ Rep #: [id number] : 1955 F 64 From: Alberto villafuerte MD PCP: MARGUERITE Sebastian Status: REG CLI Study: Upper GI w/BA Swallow Date of Exam: 03/07/20 Exam# [id number] Ordering Dr: Clarissa Amato CARDIOPULMONARY TECHNOLOGIST CARDIOPULMONARY TECHNOLOGIST-C EXAMINATION: UPPER GI SERIES INDICATION: Female, 64 [...] swallow) of the esophagus. Electronically Signed: Alberto Huston, at 12:42 EST , Service support , CC: MARGUERITE Amato Tank Tender: Signed Clarissa Amato Work Phone: Breast- cyst [...] above: 1977 Breast- cyst removal Carlos Mon MERCHANDISE PRESENTATION ASSOCIATE Comment on above: 1977 Breast- cyst removal Nikky Lagunas LPN Comment on above: 1977 Cervical Disc Fusion Carlos Mon Comment on above: 2017 Cervical Disc Fusion Carlos Mon Comment on above: 2017 Cervical Disc Fusion Christa kirkpatrick Comment on above: 2017 Cervical Disc Fusion Carlos Mon Comment on above: 2017 Cervical Disc Fusion Carlos Mon LPN Comment on above: 2017 Cervical Disc Fusion Carlos Mon LPN Comment on above: 2017 Cervical Disc Fusion Jenn Layne MA Comment on above: 2017 Cervical Disc Fusion Carlos Mon MERCHANDISE PRESENTATION ASSOCIATE Comment on above: 2017 Cervical Disc Fusion Nikky Yumikorb MERCHANDISE PRESENTATION ASSOCIATE Comment on above: 2017 D&C Carlos Mon [...] on above: 1982- after [facility] D&C Nikky Lagunas LP N Comment on above: 1982- after History of thyroidectomy H/O thyroidectom y Carlos Mon LPN Comment on above: from enlarging goiter that affected swal lowing and airway October 2018 , labs done in [place] August 2019 History of thyroidectomy H/O thyroidectom y Clarissa Ruizesa PATIENT ACCOUNTS COORDINATOR Work Phone: History of thyroidectomy H/O thyroidectom y Clarissa Ciesa PATIENT ACCOUNTS COORDINATOR Work Phone: History of thyroidectomy H/O thyroidectom y Clarissa Ciesa PATIENT ACCOUNTS COORDINATOR Work Phone: History of thyroidectomy H/O thyroidectom y Clarissa Ciesa PATIENT ACCOUNTS COORDINATOR Work Phone: History of thyroidectomy H/O thyroidectom y Clarissa Zapata Ciesa PATIENT ACCOUNTS COORDINATOR Work Phone: Comment on above: from enlarging goiter that affected swal lowing and airway October 2018 , labs done in [place] August 2019 History of thyroidectomy H/O thyroidectom y Clarissa Hamma PATIENT ACCOUNTS COORDINATOR Work Phone: Comment on above: from enlarging goiter that affected swal lowing and airway October 2018 , labs done in [place] August 2019 History of thyroidectomy H/O thyroidectom y Clarissa Ruizesa PATIENT ACCOUNTS COORDINATOR Work Phone: History of thyroidectomy H/O thyroidectom y Jenn Layne MA Comment on above: from enlarging goiter that affected swal lowing and airway October 2018 , labs done in August 2019 History of thyroidectomy H/O thyroidectom y Carlos Mon LPN Comment on above: from enlarging goiter that affected swal lowing and airway October 2018 , labs done in August 2019 History of thyroidectomy H/O thyroidectom y Nikky Lagunas LPN Comment on above: from enlarging goiter that affected swal lowing and airway October 2018 , labs done in August 2019 Shoulder decompression Ryder Mon Comment on above: 2016 Shoulder decompression Ryder Mon Comment on above: 2016 Shoulder decompression Christa Hernandes Comment on above: 2016 Shoulder decompression Ryder Mon Comment on above: 2016 Shoulder decompression Ryder Mon LPN Comment on above: 2016 Shoulder decompression Ryder Mon LPN Comment on above: 2016 Shoulder decompression Michael Layne MA Comment on above: 2016 Shoulder decompression Ryder Mon LPN Comment on above: 2016 Shoulder decompression Cameron Lagunas LPN Comment on above: 2016 Thyroidectomy Carlos Mon Comment on above: 2019 Thyroidectomy Carlos Mon Comment on above: 2019 Thyroidectomy Christa Hernandes Comment on above: 2019 Thyroidectomy Carlos Mon Comment on above: 2018 [...] Carlos Mon Comment on above: 1963 Tonsillectomy Christawade Hernandes Comment on above: 1963 Tonsillectomy Carlos Mon Comment on above: 1963 Tonsillectomy Carlos Mon L PN Comment on above: 1963 Tonsillectomy Carlos Mon L PN Comment on above: 1963 Tonsillectomy Jenn Layne MA Comment on above: 1963 Tonsillectomy Carlos Mon L PN Comment on above: 1963 Tonsillectomy Nikky Calderonrb L PN Comment on above: 1963 Plan of Treatment Date Care Activity Detail Author Start: 12-15-2031 RSV Vaccine (1 - 1-dose 75+ series) RSV Vaccine (1 - 1-dose 75+ series) [facility] Start: 08-08-2029 Lipid panel Lipid Screening [facility] Start: 02-07-2029 Lipid panel Lipid Screening [facility] Start: 07-23-2028 Lipid panel Lipid Screening [facility] Start: 01-23-2028 Screening for malignant neoplasm of colon [facility] Start: 12-25-2027 Lipid 1996 panel - Serum or Plasma Lipid Screening [facility] Start: 12-25-2027 Lipid panel Lipid Screening [facility] Start: 12-25-2027 LIPID SCREEN LIPID SCREEN [facility] Start: 08-09-2027 Diabetes Screening Diabetes Screening [facility] Start: 06-20-2027 LIPID SCREEN LIPID SCREEN [facility] Start: 02-07-2027 Diabetes Screening Diabetes Screening [facility] Start: 01-27-2027 LIPID SCREEN LIPID SCREEN [facility] Start: 08-02-2026 Diabetes Screening Diabetes Screening [facility] Start: 07-23-2026 Diabetes Screening Diabetes Screening [facility] Start: 12-24-2025 DIABETES SCREEN DIABETES SCREEN [facility] Start: 12-24-2025 Diabetes Screening Diabetes Screening [facility] Start: 10-14-2025 Annual PCP Team Chronic Disease Visit Annual PCP Team Chronic Disease Visit [facility] Start: 09-28-2025 Annual PCP Team Chronic Disease Visit Annual PCP Team Chronic Disease Visit [facility] Start: 08-25-2025 Annual PCP Team Chronic Disease Visit Annual PCP Team Chronic Disease Visit [facility] Start: 08-08-2025 Annual PCP Team Chronic Disease Visit Annual PCP Team Chronic Disease Visit [facility] Start: 08-08-2025 Anxiety Screening Anxiety Screening [facility] Start: 08-08-2025 Depression Screening Depression Screening [facility] Start: 07-18-2025 Screening for malignant neoplasm of breast Mammogram Screening [facility] Start: 06-19-2025 DIABETES SCREEN DIABETES SCREEN [facility] Start: 06-02-2025 Annual PCP Team Chronic Disease Visit Annual PCP Team Chronic Disease Visit [facility] Start: 05-26-2025 Annual PCP Team Chronic Disease Visit Annual PCP Team Chronic Disease Visit [facility] Start: 03-31-2025 DIABETES SCREEN DIABETES SCREEN [facility] Start: 02-08-2025 End: 02-08-2025 Patient encounter procedure 02/08/2025 1:40 PM EDT Office Visit [facility] [address] [place], [place] [address] Aziza Thompson PA-C [address] [place], [place] [address] 6 month f/u [facility] Comment on above: 6 month f/u Start: 02-07-2025 Annual PCP Team Chronic Disease Visit Annual PCP Team Chronic Disease Visit [facility] Start: 02-07-2025 Covid-19 Vaccine () Covid-19 Vaccine () [facility] Comment on above: Postponed from 12/20/2023 (Declined at t his time) Start: 01-27-2025 DIABETES SCREEN DIABETES SCREEN [facility] Start: 01-02-2025 End: 01-02-2025 Patient encounter procedure 01/02/2025 9:20 AM EDT Office Visit Cardiology [address] [place] [address] [place] [address] [place] [address] SVT (supraventricular tachycardia) (HCC) [I47.10] Cardiology Comment on above: SVT (supraventricular tachycardia) ([facility]) [I47.10] Start: 12-19-2024 Influenza vaccination Influenza Vaccine (#1) [facility] Start: 11-21-2024 End: 02-20-2025 Thyrotropin [Units/volume] in Serum or Plasma THYROID STIMULATING HORMONE Lab Routine Postoperative hypothyroidism Expected: 11/21/2024, Expires: 02/20/2025 [facility] Work Phone: Comment on above: Expected: 11/21/2024, Expires: Start: 11-21-2024 End: 11-21-2024 ambulatory 11/21/2024 1:00 PM EDT Results Only [facility] Draw Station [address] [place] [address] [place] [facility] Draw Station Start: 11-18-2024 Annual PCP Team Chronic Disease Visit Annual PCP Team Chronic Disease Visit [facility] Start: 11-18-2024 BP Controlled (<130/80) BP Controlled (<130/80) [facility] Start: 11-14-2024 End: 11-14-2024 Nursing evaluation of patient and report 11/14/2024 2:40 PM EDT Nurse Visit Cardiology [address] [place] [address] Wstr, Nurse Card [address] [place] [address] Palpitations [R00.2] Cardiology Comment on above: Palpitations [R00.2] Start: 10-14-2024 End: 10-14-2024 Patient encounter procedure 10/14/2024 11:40 AM EDT Office Visit [facility] [place] [address] [place] [address] Aziza Thompson PA-C [address] [place] [address] 2 week med f/u [facility] [place] Comment on above: 2 week med f/u Start: 09-29-2024 End: 09-29-2024 ambulatory 09/29/2024 4:30 PM EDT OT/PT/Speech Visit [facility] Physical Therapy [address] [place] [address] Quoc Mccracken, PT [address] [place] [id number] Lumbar back pain / Dry needling PT [facility] Physical Therapy Comment on above: Lumbar back pain / Dry needling PT Start: 09-21-2024 End: 09-21-2024 Patient encounter procedure Vasculary Surgery Comment on above: Claudication [I73.9] Start: 09-20-2024 End: 09-20-2024 ambulatory 09/20/2024 3:00 PM EDT Results Only [facility] Draw Station [address] [place] [address] [facility] Draw Station Start: 09-20-2024 End: 12-20-2024 Thyrotropin [Units/volume] in Serum or Plasma THYROID STIMULATING HORMONE Lab Routine Postoperative hypothyroidism Expected: 09/20/2024, Expires: 12/20/2024 [facility] Work Phone: Comment on above: Expected: 09/20/2024, Expires: Start: 08-25-2024 Annual PCP Team Chronic Disease Visit Annual PCP Team Chronic Disease Visit [facility] Start: 08-25-2024 End: 08-25-2024 Patient encounter procedure 08/25/2024 12:20 PM EDT Office Visit Family [facility] [place] [address] [facility] [place] [address] Aziza Thompson PA-C [address] [facility] [place] [address] bp recheck [facility] [place] Comment on above: bp recheck Start: 08-22-2024 End: 08-22-2024 ambulatory 08/22/2024 2:00 PM EDT OT/PT/Speech Visit [facility] Physical Therapy [address] [place] [address] Quoc Mccracken, PT [address] [place] [id number] Lumbar back pain [M54.50] [facility] Physical Therapy Comment on above: Lumbar back pain [M54.50] Start: 08-08-2024 End: 08-08-2024 Patient encounter procedure 08/08/2024 1:00 PM EDT Office Visit Family [facility] [place] [address] [facility] [place] [address] Aziza Thompson PA-C [address] [facility] [address] medicare wellness Family [facility] [place] Comment on above: medicare wellness Start: 08-04-2024 End: 08-04-2024 Follow-up encounter 08/04/2024 2:00 PM EDT OT/PT/Speech Visit [facility] Physical Therapy [address] [place] [address] Quoc Mccracken PT [address] [place] [id number] Follow up [facility] Physical Therapy Comment on above: Follow up Start: 07-22-2024 Annual PCP Team Chronic Disease Visit Annual PCP Team Chronic Disease Visit [facility] Start: 07-22-2024 Anxiety Screening Anxiety Screening [facility] Start: 07-22-2024 BP Controlled (<130/80) BP Controlled (<130/80) [facility] Start: 07-22-2024 Covid-19 Vaccine () Covid-19 Vaccine () [facility] Comment on above: Postponed from 12/19/2022 (Declined at t his time) Start: 07-22-2024 Depression Screening Depression Screening [facility] Start: 07-18-2024 End: 07-18-2024 Patient encounter procedure 07/18/2024 2:10 PM EDT Appointment Mammogram [address] [place] [address] Mammogram Start: 07-07-2024 End: 07-07-2024 ambulatory 07/07/2024 2:00 PM EDT OT/PT/Speech Visit [facility] Physical Therapy [address] [place] [address] Quoc Mccracken, PT [address] [place], [place] [address] Foot pain. Plantar fascsiitis [facility] Physical Therapy Comment on above: Foot pain. Plantar fascsiitis Start: 07-02-2024 Annual PCP Team Chronic Disease Visit Annual PCP Team Chronic Disease Visit [facility] Start: 06-23-2024 BP Controlled (<130/80) BP Controlled (<130/80) [facility] Start: 06-11-2024 Annual PCP Team Chronic Disease Visit Annual PCP Team Chronic Disease Visit [facility] Start: 06-02-2024 End: 06-02-2024 Patient encounter procedure 06/02/2024 10:40 AM EST Office Visit Family [facility] [place] [address] [facility] [place] [address] Remy Perez MD [address] [facility] [address] Injection R heel [facility] Comment on above: Injection R heel Start: 05-20-2024 Screening for malignant neoplasm of breast Mammogram Screening [facility] Start: 04-20-2024 Advance Directive Discussion Advance Directive Discussion [facility] Start: 03-24-2024 End: 03-24-2024 ambulatory 03/24/2024 11:30 AM EST OT/PT/Speech Visit [facility] Physical Therapy [address] [place] [address] Quoc Mccracken, PT [address] [place] [address] M54.50 (ICD-10-CM) - Lumbar back pain [facility] Physical Therapy Comment on above: M54.50 (ICD-10-CM) - Lumbar back pain Start: 02-25-2024 End: 02-25-2024 ambulatory 02/25/2024 5:15 PM EST OT/PT/Speech Visit [facility] Physical Therapy [address] [place] [address] Quoc Mccracken, PT [address] [facility] [place], [place] [address] M54.50 (ICD-10-CM) - Lumbar back pain [place] [facility] Physical Therapy Comment on above: M54.50 (ICD-10-CM) - Lumbar back pain Start: 02-17-2024 End: 02-17-2024 Patient encounter procedure 02/17/2024 2:00 PM EDT Office Visit Pain Management [address] [facility] [address] [place] [address] Jamaal Beaver MD [address] [facility] [address] [place] [address] Lumbar back pain [M54.50] Pain Management Comment on above: Lumbar back pain [M54.50] Start: 02-12-2024 BP Controlled (<130/80) BP Controlled (<130/80) [facility] Start: 02-11-2024 End: 02-11-2024 ambulatory 02/11/2024 10:45 AM EDT OT/PT/Speech Visit [facility] Physical Therapy [address] [place], [place] [address] Quoc Mccracken, PT [address] [facility], [place] [address] back pain [facility] Physical Therapy Comment on above: back pain Start: 02-08-2024 End: 05-09-2024 Basic metabolic 2000 panel - Serum or Plasma [facility] Work Phone: Comment on above: Expected: 02/08/2024, Expires: Start: 02-08-2024 End: 05-09-2024 LIPID PANEL, NONFASTING [facility] Comment on above: Expected: 02/08/2024, Expires: 5 Start: 02-08-2024 End: 05-09-2024 Thyrotropin [Units/volume] in Serum or Plasma [facility] Comment on above: Expected: 02/08/2024, Expires: Start: 02-08-2024 End: 02-08-2024 Patient encounter procedure Pain Management Comment on above: Lumbar back pain [M54.50] 6 month FU Start: 02-04-2024 End: 02-04-2024 Patient encounter procedure 02/04/2024 1:20 PM EDT Office Visit [facility] [place] [address] [place] [address] Aziza Thompson PA-C [address] [place] [address] 6 month FU Family Medicine [place] Comment on above: 6 month FU Start: 01-30-2024 BP Controlled (<130/80) BP Controlled (<130/80) [facility] Start: 01-28-2024 End: 01-28-2024 Patient encounter procedure 01/28/2024 12:40 PM EDT Office Visit Family Medicine [place] [address] [facility] [place] [address] Aziza Thompson PA-C [address] [place] [address] 6 month FU Family Medicine [place] Comment on above: 6 month FU Start: 01-23-2024 Colonoscopy Colonoscopy [facility] Start: 01-23-2024 Colorectal Cancer Screening Colorectal Cancer Screening [facility] Start: 01-21-2024 End: 01-21-2024 ambulatory 01/21/2024 2:00 PM EDT OT/PT/Speech Visit [facility] Physical Therapy [address] [place] [address] Quoc Mccracken, PT [address] [place], [place] [address] Continuing low back pain [facility] Physical Therapy Comment on above: Continuing low back pain Start: 01-13-2024 End: 01-13-2024 Patient encounter procedure 01/13/2024 10:00 AM EDT Office Visit Pain Management [address] [id number] Jamaal Beaver MD [address] [facility] [place] [address] Lumbar back pain [M54.50] Pain Management Comment on above: Lumbar back pain [M54.50] Start: 12-25-2023 ANNUAL PCP TEAM CHRONIC DISEASE VISIT ANNUAL PCP TEAM CHRONIC DISEASE VISIT [facility] Start: 12-20-2023 Covid-19 Vaccine ( season) Covid-19 Vaccine () [facility] Start: 12-20-2023 Covid-19 Vaccine () Covid-19 Vaccine () [facility] Start: 12-20-2023 Influenza vaccination Influenza Vaccine (#1) [facility] Start: 12-17-2023 End: 12-17-2023 Patient encounter procedure 12/17/2023 8:40 AM EDT Appointment Radiology [address] [place], [place] [address] Radiculopathy of lumbar region [M54.16]; Radiology Comment on above: Radiculopathy of lumbar region [M54.16]; Start: 11-16-2023 End: 11-16-2023 Patient encounter procedure 11/16/2023 10:20 AM EDT Office Visit Family Medicine [place] [address] [place] [address] Aziza Thompson PA-C [address] [place], [place] [id number] Ongoing low back pain Family [facility] [place] Comment on above: Ongoing low back pain Start: 10-02-2023 BP CONTROLLED (<130/80) BP CONTROLLED (<130/80) [facility] in Start: 08-27-2023 End: 08-27-2023 ambulatory 08/27/2023 2:00 PM EDT Results Only [place] [facility] Draw Station [address] [place] [address] [place] [facility] Start: 08-26-2023 End: 11-25-2023 25-hydroxyvitamin D3 [Mass/volume] in Serum or Plasma VITAMIN D 25 HYDROXY Lab Routine Osteopenia, senile Expected: 08/26/2023, Expires: 11/25/2023 [facility] Work Phone: Comment on above: Expected: 08/26/2023, Expires: Start: 08-26-2023 End: 08-26-2023 ambulatory 08/26/2023 1:20 PM EDT [facility] [place] [address] [place] [address] Aziza Thompson PA-C [address] [place] [address] Discuss options for osteopenia [facility] [place] Comment on above: Discuss options for osteopenia Start: 08-19-2023 ANNUAL PCP TEAM CHRONIC DISEASE VISIT ANNUAL PCP TEAM CHRONIC DISEASE VISIT [facility] Start: 08-19-2023 BP CONTROLLED (<130/80) BP CONTROLLED (<130/80) [facility] in Start: 08-10-2023 End: 11-09-2023 Basic metabolic 2000 panel - Serum or Plasma BASIC METABOLIC PNL Lab Routine Elevated serum creatinine Expected: 08/10/2023, Expires: 11/09/2023 [facility] Work Phone: Comment on above: Expected: 08/10/2023, Expires: 4 Start: 07-27-2023 End: 10-26-2023 CBC W Auto Differential panel - Blood CBC + DIFF Lab Routine Fatigue, unspecified type Expected: 07/27/2023, Expires: 10/26/2023 [facility] Work Phone: Comment on above: Expected: 07/27/2023, Expires: Start: 07-27-2023 End: 10-26-2023 Cobalamin (Vitamin B12) [Mass/volume] in Serum or Plasma VITAMIN B12 BLOOD Lab Routine Fatigue, unspecified type Expected: 07/27/2023, Expires: 10/26/2023 [facility] Work Phone: Comment on above: Expected: 07/27/2023, Expires: Start: 07-27-2023 End: 10-26-2023 Folate [Mass/volume] in Serum or Plasma FOLATE SERUM Lab Routine Fatigue, unspecified type Expected: 07/27/2023, Expires: 10/26/2023 [facility] Work Phone: Comment on above: Expected: 07/27/2023, Expires: Start: 07-27-2023 End: 10-26-2023 Iron and Iron binding capacity panel - Serum or Plasma IRON + TIBC Lab Routine Fatigue, unspecified type Expected: 07/27/2023, Expires: 10/26/2023 [facility] Work Phone: Comment on above: Expected: 07/27/2023, Expires: Start: 07-23-2023 End: 10-22-2023 Comprehensive metabolic 2000 panel - Serum or Plasma COMP METABOLIC PANEL Lab Routine Hypertension, essential Expected: 07/23/2023, Expires: 10/22/2023 [facility] Work Phone: Comment on above: Expected: 07/23/2023, Expires: Start: 07-23-2023 End: 10-22-2023 Hemoglobin A1c in Blood HGB A1C Lab Routine Elevated blood sugar Expected: 07/23/2023, Expires: 10/22/2023 [facility] Work Phone: Comment on above: Expected: 07/23/2023, Expires: Start: 07-23-2023 End: 10-22-2023 LIPID PANEL, NONFASTING LIPID PANEL, NONFASTING Lab Routine Hyperlipidemia, mixed Expected: 07/23/2023, Expires: 10/22/2023 [facility] Work Phone: Comment on above: Expected: 07/23/2023, Expires: Start: 07-23-2023 End: 10-22-2023 Thyrotropin [Units/volume] in Serum or Plasma TSH BLD Lab Routine Postoperative hypothyroidism Expected: 07/23/2023, Expires: 10/22/2023 [facility] Work Phone: Comment on above: Expected: 07/23/2023, Expires: Start: 07-23-2023 End: 10-22-2023 Urinalysis complete panel - Urine URINALYSIS, WITH MICROSCOPIC Lab Routine Hypertension, essential Expected: 07/23/2023, Expires: 10/22/2023 [facility] Work Phone: Comment on above: Expected: 07/23/2023, Expires: Start: 07-15-2023 ANNUAL PCP TEAM CHRONIC DISEASE VISIT ANNUAL PCP TEAM CHRONIC DISEASE VISIT [facility] Start: 07-15-2023 BP CONTROLLED (<130/80) BP CONTROLLED (<130/80) [facility] in Start: 07-02-2023 ANNUAL PCP TEAM CHRONIC DISEASE VISIT ANNUAL PCP TEAM CHRONIC DISEASE VISIT [facility] Start: 07-02-2023 BP CONTROLLED (<130/80) BP CONTROLLED (<130/80) [facility] Start: 06-20-2023 ANNUAL PCP TEAM CHRONIC DISEASE VISIT ANNUAL PCP TEAM CHRONIC DISEASE VISIT [facility] Start: 06-20-2023 BP CONTROLLED (<130/80) BP CONTROLLED (<130/80) [facility] Start: 06-20-2023 COVID-19 VACCINE (4 - Booster for Pfizer series) COVID-19 VACCINE (4 - Booster for Pfizer series) [facility] Comment on above: Postponed from 05/23/2021 (Declined at t his time) Start: 06-20-2023 COVID-19 VACCINE (4 - Pfizer series) COVID-19 VACCINE (4 - Pfizer series) [facility] Comment on above: Postponed from 05/23/2021 (Declined at t his time) Start: 06-20-2023 SHINGRIX VACCINE (1 of 2) SHINGRIX VACCINE (1 of 2) [facility] Comment on above: Postponed from 2006 (Declined at t his time) Start: 05-16-2023 ANNUAL PCP TEAM CHRONIC DISEASE VISIT ANNUAL PCP TEAM CHRONIC DISEASE VISIT [facility] Start: 04-20-2023 Advance Directive Discussion Advance Directive Discussion [facility] Start: 04-20-2023 Depression Assessment Depression Assessment [facility] Start: 04-04-2023 ANNUAL PCP TEAM CHRONIC DISEASE VISIT ANNUAL PCP TEAM CHRONIC DISEASE VISIT [facility] Start: 01-27-2023 ANNUAL PCP TEAM CHRONIC DISEASE VISIT ANNUAL PCP TEAM CHRONIC DISEASE VISIT [facility] Start: 01-15-2023 Mammography [facility] Start: 01-15-2023 Screening for malignant neoplasm of breast Mammogram Screening [facility] Start: 12-24-2022 End: 02-23-2023 Comprehensive metabolic 2000 panel - Serum or Plasma [facility] Work Phone: Comment on above: Expected: 12/24/2022, Expires: 3 Start: 12-24-2022 End: 02-23-2023 LIPID PANEL, NONFASTING [facility] Work Phone: Comment on above: Expected: 12/24/2022, Expires: 3 Start: 12-24-2022 End: 02-23-2023 Thyrotropin [Units/volume] in Serum or Plasma [facility] Work Phone: Comment on above: Expected: 12/24/2022, Expires: 3 Start: 12-24-2022 End: 02-23-2023 Urinalysis complete panel - Urine [facility] Work Phone: Comment on above: Expected: 12/24/2022, Expires: 3 Start: 12-19-2022 BP CONTROLLED (<130/80) BP CONTROLLED (<130/80) [facility] Start: 12-19-2022 Covid-19 Vaccine () Covid-19 Vaccine () [facility] Start: 12-19-2022 Influenza vaccination [facility] Start: 12-18-2022 ANNUAL PCP TEAM CHRONIC DISEASE VISIT ANNUAL PCP TEAM CHRONIC DISEASE VISIT [facility] Start: 11-21-2022 Adult depression screening assessment DEPRESSION SCREENING [facility] Start: 11-21-2022 ANNUAL PCP TEAM CHRONIC DISEASE VISIT ANNUAL PCP TEAM CHRONIC DISEASE VISIT [facility] Start: 11-01-2022 ANNUAL PCP TEAM CHRONIC DISEASE VISIT ANNUAL PCP TEAM CHRONIC DISEASE VISIT [facility] Start: 06-19-2022 End: 08-19-2022 Basic metabolic 2000 panel - Serum or Plasma [facility] Work Phone: Comment on above: Expected: 06/19/2022, Expires: 3 Start: 06-19-2022 End: 08-19-2022 LIPID PANEL, NONFASTING [facility] Work Phone: Comment on above: Expected: 06/19/2022, Expires: 3 Start: 06-19-2022 End: 08-19-2022 Thyrotropin [Units/volume] in Serum or Plasma [facility] Work Phone: Comment on above: Expected: 06/19/2022, Expires: 3 Start: 04-20-2022 ADVANCE DIRECTIVE DISCUSSION ADVANCE DIRECTIVE DISCUSSION [facility] Start: 04-20-2022 DEPRESSION ASSESSMENT DEPRESSION ASSESSMENT [facility] Start: 03-28-2022 End: 05-28-2022 FELICIA BY IFA WITH REFLEX FELICIA BY IFA WITH REFLEX Lab Routine Positive FELICIA (antinuclear antibody) Expected: 03/28/2022, Expires: 05/28/2022 [facility] Work Phone: Comment on above: Expected: 03/28/2022, Expires: 3 Start: 03-28-2022 End: 05-28-2022 C reactive protein [Mass/volume] in Serum or Plasma C-REACTIVE PROTEIN (CRP) Lab Routine Positive FELICIA (antinuclear antibody) Expected: 03/28/2022, Expires: 05/28/2022 [facility] Work Phone: Comment on above: Expected: 03/28/2022, Expires: 3 Start: 03-28-2022 End: 05-28-2022 CBC W Auto Differential panel - Blood CBC + DIFF Lab Routine Positive FELICIA (antinuclear antibody) Expected: 03/28/2022, Expires: 05/28/2022 [facility] Work Phone: Comment on above: Expected: 03/28/2022, Expires: 3 Start: 03-28-2022 End: 05-28-2022 Complement C3 [Mass/volume] in Serum or Plasma C3 COMPLEMENT BLD Lab Routine Positive FELICIA (antinuclear antibody) Expected: 03/28/2022, Expires: 05/28/2022 [facility] Work Phone: Comment on above: Expected: 03/28/2022, Expires: 3 Start: 03-28-2022 End: 05-28-2022 Complement C4 [Mass/volume] in Serum or Plasma C4 COMPLEMENT BLD Lab Routine Positive FELICIA (antinuclear antibody) Expected: 03/28/2022, Expires: 05/28/2022 [facility] Work Phone: Comment on above: Expected: 03/28/2022, Expires: 3 Start: 03-28-2022 End: 05-28-2022 Comprehensive metabolic 2000 panel - Serum or Plasma COMP METABOLIC PANEL Lab Routine Positive FELICIA (antinuclear antibody) Expected: 03/28/2022, Expires: 05/28/2022 [facility] Work Phone: Comment on above: Expected: 03/28/2022, Expires: 3 Start: 03-28-2022 End: 05-28-2022 Cyclic citrullinated peptide IgG Ab [Units/volume] in Serum or Plasma CCP ANTIBODY IGG Lab Routine Positive FELICIA (antinuclear antibody) Expected: 03/28/2022, Expires: 05/28/2022 [facility] Work Phone: Comment on above: Expected: 03/28/2022, Expires: 3 Start: 03-28-2022 End: 05-28-2022 Erythrocyte sedimentation rate SED RATE WESTERGREN Lab Routine Positive FELICIA (antinuclear antibody) Expected: 03/28/2022, Expires: 05/28/2022 [facility] Work Phone: Comment on above: Expected: 03/28/2022, Expires: 3 Start: 03-28-2022 End: 05-28-2022 Extractable nuclear Ab panel - Serum ANTI JAMAL ID Lab Routine Positive FELICIA (antinuclear antibody) Expected: 03/28/2022, Expires: 05/28/2022 [facility] Work Phone: Comment on above: Expected: 03/28/2022, Expires: 3 Start: 03-28-2022 End: 05-28-2022 IMMUNOFIXATION SCREEN, SERUM IMMUNOFIXATION SCREEN, SERUM Lab Routine Positive FELICIA (antinuclear antibody) Expected: 03/28/2022, Expires: 05/28/2022 [facility] Work Phone: Comment on above: Expected: 03/28/2022, Expires: 3 Start: 03-28-2022 End: 05-28-2022 KAPPA/STARKS,FREE,SER KAPPA/STARKS,FREE,SER Lab Routine Positive FELICIA (antinuclear antibody) Expected: 03/28/2022, Expires: 05/28/2022 [facility] Work Phone: Comment on above: Expected: 03/28/2022, Expires: 3 Start: 03-28-2022 End: 05-28-2022 MONOCLONAL PROT UR W/INTERP MONOCLONAL PROT UR W/INTERP Lab Routine Positive FELICIA (antinuclear antibody) Expected: 03/28/2022, Expires: 05/28/2022 [facility] Work Phone: Comment on above: Expected: 03/28/2022, Expires: 3 Start: 03-28-2022 End: 05-28-2022 PROTEIN ELECT RND UR W/INTERP PROTEIN ELECT RND UR W/INTERP Lab Routine Positive FELICIA (antinuclear antibody) Expected: 03/28/2022, Expires: 05/28/2022 [facility] Work Phone: Comment on above: Expected: 03/28/2022, Expires: 3 Start: 03-28-2022 End: 05-28-2022 PROTEIN ELECTROPHORESIS SERUM W/INTERP PROTEIN ELECTROPHORESIS SERUM W/INTERP Lab Routine Positive FELICIA (antinuclear antibody) Expected: 03/28/2022, Expires: 05/28/2022 [facility] Work Phone: Comment on above: Expected: 03/28/2022, Expires: 3 Start: 03-28-2022 End: 05-28-2022 Protein/Creatinine [Mass Ratio] in Urine PROTEIN CREATININE RATIO Lab Routine Positive FELICIA (antinuclear antibody) Expected: 03/28/2022, Expires: 05/28/2022 [facility] Work Phone: Comment on above: Expected: 03/28/2022, Expires: 3 Start: 03-28-2022 End: 05-28-2022 Rheumatoid factor [Units/volume] in Serum or Plasma RHEUMATOID FACTOR BL Lab Routine Positive FELICIA (antinuclear antibody) Expected: 03/28/2022, Expires: 05/28/2022 [facility] Work Phone: Comment on above: Expected: 03/28/2022, Expires: 3 Start: 03-28-2022 End: 05-28-2022 Urinalysis complete panel - Urine URINALYSIS WITH MICROSCOPIC, REFLEX CULTURE Lab Routine Positive FELICIA (antinuclear antibody) Expected: 03/28/2022, Expires: 05/28/2022 [facility] Work Phone: Comment on above: Expected: 03/28/2022, Expires: 3 Start: 02-21-2022 [facility] Work Phone: Start: 02-21-2022 Application of ice collar, cap or bag [facility] Work Phone: Start: 02-21-2022 Patient discharge [facility] Work Phone: Start: 02-21-2022 Wound care [facility] Work Phone: Start: 01-28-2022 End: 03-30-2022 Bacteria identified in Urine by Culture URINE CULTURE Microbiology Routine Microscopic hematuria Expected: 01/28/2022, Expires: 03/30/2022 [facility] Work Phone: Comment on above: Expected: 01/28/2022, Expires: 2 Start: 12-19-2021 Influenza vaccination INFLUENZA (#1) [facility] Start: 2021 ADVANCE DIRECTIVE DISCUSSION ADVANCE DIRECTIVE DISCUSSION [facility] Start: 2021 BONE DENSITY BONE DENSITY [facility] Start: 2021 Bone Density Screening Bone Density Screening [facility] Start: 2021 PNEUMOCOCCAL: 65+ (1 - PCV) PNEUMOCOCCAL: 65+ (1 - PCV) [facility] Start: 2021 Screening for osteoporosis Bone Density Screening [facility] Start: 11-21-2021 End: 01-21-2022 FELICIA BY IFA SCREEN [facility] Work Phone: Comment on above: Expected: 11/21/2021, Expires: 2 Start: 11-21-2021 End: 01-21-2022 Erythrocyte sedimentation rate [facility] Work Phone: Comment on above: Expected: 11/21/2021, Expires: 2 Start: 10-12-2021 [facility] Work Phone: Start: 07-27-2021 COVID-19 VACCINE (4 - Booster for Pfizer series) COVID-19 VACCINE (4 - Booster for Pfizer series) [facility] Start: 06-18-2021 Procedure Education Eprescribed prescriptions (G8553) [facility] Work Phone: Start: 06-18-2021 Provider Instructions for Treatment Follow up in 3 days virtual [facility] Work Phone: Start: 05-23-2021 COVID-19 VACCINE (4 - Booster for Pfizer series) COVID-19 VACCINE (4 - Booster for Pfizer series) [facility] Start: 05-03-2021 Procedure Education Eprescribed prescriptions (G8553) [facility]; [facility] Work Phone: Start: 04-20-2021 DEPRESSION ASSESSMENT DEPRESSION ASSESSMENT [facility] Start: 01-11-2021 Procedure Education Eprescribed prescriptions (G8553) [facility]; [facility] Work Phone: Start: 10-23-2020 Renal function panel RENAL FUNCTION PANEL (66175) [facility]; [facility] Work Phone: Start: 09-21-2020 Procedure Education Eprescribed prescriptions (G8553) [facility]; [facility] Work Phone: Start: 09-21-2020 Provider Instructions for Treatment [facility] Work Phone: Start: 09-18-2020 C-reactive protein C-REACTIVE PROTEIN (86143) [facility]; [facility] Work Phone: Start: 09-18-2020 Antinuclear antibodies felicia FELICIA (ANTINUCLEAR ANTIBODY) (04288) [facility]; [facility] Work Phone: Start: 09-18-2020 Rheumatoid factor quantitative RHEUMATOID FACTOR-QUANT (61074) [facility]; [facility] Work Phone: Start: 09-18-2020 Comprehensive metabolic panel METABOLIC PANEL, COMPREHENSIVE (73757) [facility]; [facility] Work Phone: Start: 09-18-2020 Blood count complete automated CBC (AUTO) (49872) [facility]; [facility] Work Phone: Start: 09-18-2020 25 hydroxy includes fractions if performed CALCIFIDIOL (96446) VIT D 25 [facility]; [facility] Work Phone: Start: 09-18-2020 Assay of folic acid serum Folate (71757) [facility]; [facility] Work Phone: Start: 09-18-2020 Cyanocobalamin vitamin b-12 VITAMIN B-12 (CYANOCOBALAMIN) (80286) [facility]; [facility] Work [...] Treatment Follow up in 6 weeks front end developer designer to arrange, virtually if needed [facility] Work Phone: Start: 03-21-2020 Procedure Education Eprescribed prescriptions (G8553) [facility] Work Phone: Start: 02-28-2020 Procedure Education Eprescribed prescriptions (G8553) [facility] Work Phone: Start: 02-28-2020 Provider Instructions for Treatment [facility] Work Phone: Start: 02-28-2020 Assay of thyroid stimulating hormone tsh TSH (THYROID STIMULATING HORMONE) (86212) [facility]; [facility] Work Phone: Comment on above: August 2020 Start: 02-28-2020 TSH Qn TSH (THYROID STIMULATING HORMONE) (30855) [facility] Work Phone: Comment on above: August 2020 Start: 02-28-2020 Assay of triiodothyronine t3 free T3, FREE (TRIDOTHYRONINE) (81954) [facility]; [facility] Work Phone: Comment on above: august 2020 Start: 02-28-2020 Free T3 [Mass/Vol] T3, FREE (TRIDOTHYRONINE) (24677) [facility] Work Phone: Comment on above: august 2020 Start: 02-28-2020 Assay of free thyroxine T4, FREE (THYROXINE) (16645) [facility]; [facility] Work Phone: Comment on above: August 2020 Start: 02-28-2020 Free T4 [Mass/Vol] T4, FREE (THYROXINE) (53448) [facility] Work Phone: Comment on above: August 2020 Start: 02-28-2020 Lipid panel LIPID PANEL (29648) [facility] Work Phone: Comment on above: August 2020 Start: 01-17-2020 Procedure Education Eprescribed prescriptions (G8553) [facility] Work Phone: Start: 01-17-2020 Provider Instructions for Treatment Follow up in 6 weeks [facility] Work Phone: Start: 01-17-2020 Comprehensive metabolic panel Metabolic Panel, Comprehensive (47931) [facility] Work Phone: Comment on above: Feb 19 Start: 01-17-2020 Blood count complete auto&auto difrntl wbc CBC, Platelets & Auto Diff (71803) [facility] Work Phone: Comment on above: Feb 19 Start: 01-17-2020 Lipid panel LIPID PANEL (19715) [facility] Work Phone: Comment on above: Feb 19 Start: 01-17-2020 Free T4 [Mass/Vol] T4, FREE (THYROXINE) (09166) [facility] Work Phone: Comment on above: Feb 20 2020 Start: 01-17-2020 Free T3 [Mass/Vol] T3, FREE (TRIDOTHYRONINE) (88865) [facility] Work Phone: Comment on above: Feb 20 2020 Start: 01-17-2020 TSH Qn TSH (THYROID STIMULATING HORMONE) (61434) [facility] Work Phone: Comment on above: Feb 20 2020 Start: 2016 RSV Vaccine (1 - 1-dose 60+ series) RSV Vaccine (1 - 1-dose 60+ series) [facility] Start: 2006 SHINGRIX VACCINE (1 of 2) SHINGRIX VACCINE (1 of 2) [facility] Start: 2001 COLOGUARD (FIT-DNA) COLOGUARD (FIT-DNA) [facility] Start: 2001 Colonoscopy COLONOSCOPY [facility] Start: 2001 COLORECTAL CANCER SCREENING COLORECTAL CANCER SCREENING [facility] Start: [address] COLONOGRAPHY [facility] Start: 2001 DIABETES SCREEN DIABETES SCREEN [facility] Start: 2001 FECAL OCCULT BLOOD FECAL OCCULT BLOOD [facility] Start: 2001 LIPID SCREEN LIPID SCREEN [facility] Start: 2001 Screening for malignant neoplasm of colon [facility] Start: 2001 SIGMOIDOSCOPY SIGMOIDOSCOPY [facility] Start: 1996 Mammography MAMMOGRAM [facility] Start: 1986 HPV TESTING HPV TESTING [facility] Start: 1977 PAP TESTING PAP TESTING [facility] Start: 12-15-1975 Urine microalbumin profile [facility] Start: 1974 BP CONTROLLED (<130/80) BP CONTROLLED (<130/80) [facility] Start: 1974 HEPATITIS C SCREENING HEPATITIS C SCREENING [facility] Start: 1974 HIV SCREENING HIV SCREENING [facility] Start: 1968 Adult depression screening assessment DEPRESSION SCREENING [facility] End: 08-21-2024 BD DXA TRABECULAR BONE SCORE (TBS) BD DXA TRABECULAR BONE SCORE (TBS) Radiology Routine Asymptomatic postmenopausal status 1 Occurrences starting 07/23/2023 until 08/21/2024 [facility] Work Phone: Comment on above: 1 Occurrences starting 07/23/2023 until 08/21/2024 BD DXA TRABECULAR OSIEL NE SCORE (TBS) BD DXA TRABECULAR BONE SCORE (TBS) Radiology Routine Asymptomatic postmenopausal status 08/14/2023 2:23 PM EDT [facility] End: 06-18-2023 Ct pelvis w/o contrast material CT PELVIS WO IVCON Radiology Routine Bone lesion Abnormal x-ray 1 Occurrences starting 05/19/2022 until 06/18/2023 [facility] Work Phone: Comment on above: 1 Occurrences starting 05/19/2022 until 06/18/2023 DBT Breast - bilater al screening LEONORA SCREENING W HERNANDEZ Radiology Routine Encounter for screening mammogram for breast cancer 07/18/2024 2:18 PM EDT [facility] Work Phone: End: 08-21-2024 DXA Skeletal system.axial Views for bone density DXA-AXIAL SKELETON Radiology Routine Asymptomatic postmenopausal status 1 Occurrences starting 07/23/2023 until 08/21/2024 [facility] Work Phone: Comment on above: 1 Occurrences starting 07/23/2023 until 08/21/2024 DXA Skeletal system. axial Views for bone density DXA-AXIAL SKELETON Radiology Routine Asymptomatic postmenopausal status 08/14/2023 2:23 PM EDT [facility] Work Phone: End: 04-27-2023 DXA-AXIAL SKELETON DXA-AXIAL SKELETON Radiology Routine Positive FELICIA (antinuclear antibody) 1 Occurrences starting 03/28/2022 until 04/27/2023 [facility] Work Phone: Comment on above: 1 Occurrences starting 03/28/2022 until 04/27/2023 End: 10-10-2023 ECG COMPLETE ECG COMPLETE ECG Routine Preop examination 1 Occurrences starting 01/27/2022 until 01/27/2023 [facility] Work Phone: Comment on above: 1 Occurrences starting 01/27/2022 until 01/27/2023 ECG COMPLETE ECG COMPLETE ECG Routine Palpitations Ordered: 08/08/2024 [facility] Work Phone: Comment on above: Ordered: 08/08/2024 End: 08-08-2025 EXERCISE STRESS ECG (WITHOUT IMAGING) EXERCISE STRESS ECG (WITHOUT IMAGING) Cardiology Routine Palpitations Hypertension, essential 1 Occurrences starting 08/08/2024 until 08/08/2025 [facility] Comment on above: 1 Occurrences starting 08/08/2024 until 08/08/2025 End: 12-18-2024 MR Lumbar spine WO contrast MRI LUMBAR SPINE WO IVCON Radiology Routine Radiculopathy of lumbar region Chronic midline low back pain without sciatica Decreased reflex 1 Occurrences starting 11/19/2023 until 12/18/2024 [facility] Work Phone: Comment on above: 1 Occurrences starting 11/19/2023 until 12/18/2024 OUTSIDE VENDOR CARDI AC OUTPATIENT EXTENDED RHYTHM RECORDING (WITHOUT TELEMETRY) OUTSIDE VENDOR CARDIAC OUTPATIENT EXTENDED RHYTHM RECORDING (WITHOUT TELEMETRY) Holter Routine Palpitations Hypertension, essential Ordered: 08/08/2024 [facility] Comment on above: Ordered: 08/08/2024 Patient Education [facility] Work Phone: Patient referral [facility] Work Phone: PT PLAN OF CARE CERTIFICATION PT PLAN OF CARE CERTIFICATION Procedures Routine Lumbar back pain Ordered: 05/21/2022 [facility] Comment on above: Ordered: 05/21/2022 PT PLAN OF CARE CERTIFICATION PT PLAN OF CARE CERTIFICATION Procedures Routine Fall (on) (from) unspecified stairs and steps, subsequent encounter Ordered: 08/29/2022 [facility] Work Phone: Comment on above: Ordered: 08/29/2022 End: 12-01-2022 Radex spine cervical 4 or 5 views XR CERV OTHER 4V AP/LAT/OBL Radiology Routine Left arm pain Left hand weakness Numbness and tingling of left upper extremity 1 Occurrences starting 11/01/2021 until 12/01/2022 [facility] Work Phone: Comment on above: 1 Occurrences starting 11/01/2021 until 12/01/2022 End: 06-15-2023 Radex spine lumbosacral 2/3 views XR LUMBAR GENERAL 3V AP/LAT/L5-S1 Radiology Routine Lumbar back pain 1 Occurrences starting 05/16/2022 until 06/15/2023 [facility] Work Phone: Comment on above: 1 Occurrences starting 05/16/2022 until 06/15/2023 Radex spine lumbosac ral 2/3 views XR LUMBAR GENERAL 3V AP/LAT/L5-S1 Radiology Routine Lumbar back pain 05/16/2022 12:36 PM EST [facility] Work Phone: End: 08-13-2023 Radex spine lumbosacral 2/3 views XR LUMBAR GENERAL 3V AP/LAT/L5-S1 Radiology Routine Fall (on) (from) unspecified stairs and steps, subsequent encounter 1 Occurrences starting 07/14/2022 until 08/13/2023 [facility] Work Phone: Comment on above: 1 Occurrences starting 07/14/2022 until 08/13/2023 Radex spine lumbosac ral 2/3 views XR LUMBAR GENERAL 3V AP/LAT/L5-S1 Radiology Routine Fall (on) (from) unspecified stairs and steps, subsequent encounter 07/14/2022 3:07 PM EDT [facility] Work Phone: Radionuclide imaging of perfusion of myocardium under exercise stress [facility] End: 12-20-2022 Screening mammography bi 2-view breast inc cad LEONORA SCREENING Radiology Routine Encounter for screening mammogram for breast cancer 1 Occurrences starting 11/20/2021 until 12/20/2022 [facility] Work Phone: Comment on above: 1 Occurrences starting 11/20/2021 until 12/20/2022 End: 04-27-2023 US HAND/WRIST SYNOVIAL SCREEN RT [facility] Work Phone: Comment on above: 1 Occurrences starting 03/28/2022 until 04/27/2023 [facility] End: 08-08-2025 US.doppler Extremity arteries - bilateral for physiologic artery study PVR ANK PRESS [facility] Vascular Lab Routine Claudication 1 Occurrences starting 08/08/2024 until 08/08/2025 [facility] Comment on above: 1 Occurrences starting 08/08/2024 until 08/08/2025 End: 08-08-2025 US.doppler Extremity arteries - bilateral for physiologic artery study at rest and with exercise PVR ANK PRESS W/EXC [facility] Vascular Lab Routine Claudication 1 Occurrences starting 08/08/2024 until 08/08/2025 [facility] Comment on above: 1 Occurrences starting 08/08/2024 until 08/08/2025 End: 06-25-2025 XR Foot - right AP and Lateral and oblique XR FOOT GENERAL 3V AP/LAT/OBL RIGHT Radiology Routine Plantar fasciitis of right foot 1 Occurrences starting 05/26/2024 until 06/25/2025 [facility] Comment on above: 1 Occurrences starting 05/26/2024 until 06/25/2025 XR Foot - right AP a nd Lateral and oblique XR FOOT GENERAL 3V AP/LAT/OBL RIGHT Radiology Routine Plantar fasciitis of right foot 05/26/2024 12:40 PM EST [facility] XR HAND GENERAL 3V PA/LAT/OBL LEFT XR HAND GENERAL 3V PA/LAT/OBL LEFT Radiology Routine Left hand weakness Left hand pain 11/21/2021 9:47 AM EDT [facility] Work Phone: End: 04-27-2023 XR HIP GENERAL 3V PELV/AP/LAT LEFT XR HIP GENERAL 3V PELV/AP/LAT LEFT Radiology Routine Positive FELICIA (antinuclear antibody) 1 Occurrences starting 03/28/2022 until 04/27/2023 [facility] Work Phone: Comment on above: 1 Occurrences starting 03/28/2022 until 04/27/2023 End: 04-27-2023 XR KNEE GENERAL 4V AP BOTH/PA BOTH/LAT/MERC BILATERAL XR KNEE GENERAL 4V AP BOTH/PA BOTH/LAT/MERC BILATERAL Radiology Routine Positive FELICIA (antinuclear antibody) 1 Occurrences starting 03/28/2022 until 04/27/2023 [facility] Work Phone: Comment on above: 1 Occurrences starting 03/28/2022 until 04/27/2023 End: 06-25-2025 XR Pelvis and Hip - left AP and Lateral frog XR HIP GENERAL 3V PELV/AP/LAT LEFT Radiology Routine Chronic left hip pain 1 Occurrences starting 05/26/2024 until 06/25/2025 [facility] Work Phone: Comment on above: 1 Occurrences starting 05/26/2024 until 06/25/2025 XR Pelvis and Hip - left AP and Lateral frog XR HIP GENERAL 3V PELV/AP/LAT LEFT Radiology Routine Chronic left hip pain 05/26/2024 12:40 PM EST [facility] End: 07-31-2023 XR SHOULDER GENERAL 3V OR MORE AP/TRUE AP/OTHER RIGHT XR SHOULDER GENERAL 3V OR MORE AP/TRUE AP/OTHER RIGHT Radiology Routine Acute pain of right shoulder 1 Occurrences starting 07/01/2022 until 07/31/2023 [facility] Work Phone: Comment on above: 1 Occurrences starting 07/01/2022 until 07/31/2023 XR SHOULDER GENERAL 3V OR MORE AP/TRUE AP/OTHER RIGHT XR SHOULDER GENERAL 3V OR MORE AP/TRUE AP/OTHER RIGHT Radiology Routine Acute pain of right shoulder 07/01/2022 4:04 PM EDT [facility] Work Phone: [facility] Work Phone: [facility] Work Phone: [facility] Work Phone: [facility] Work Phone: [facility] Immunizations Immunization Date Immunization Notes Care Provider Fa [facility] 02-08-2024 influenza, high dose seasonal, preservative-free Aziza Thompson PA-C Work Phone: [facility] 02-08-2024 influenza virus vaccine, unspecified formulation Remy Perez MD Work Phone: [facility] 01-30-2023 influenza virus vaccine, unspecified formulation Jose Portillo MD Work Phone: [facility] 01-27-2022 influenza, high-dose , quadrivalent vaccine (FLUZONE HIGH DOSE QUADRIVALENT) Aziza Thompson PA-C Work Phone: [facility] 01-27-2022 pneumococcal (PCV20) vaccine, 20 valent (PREVNAR 20) Aziza Thompson PA-C Work Phone: [facility] 01-27-2022 pneumococcal Conjugate, unspecified formulation Aziza Thompson PA-C Work Phone: [facility] Work Phone: 01-27-2022 influenza virus vaccine, unspecified formulation Quoc Mccracken PT Work Phone: [facility] 07-26-2020 COVID-19 (Pfizer) Clarissa Amato PATIENT ACCOUNTS COORDINATOR Work Phone: [facility] Work Phone: 07-05-2020 COVID-19 (Pfizer) Clarissa Amato PATIENT ACCOUNTS COORDINATOR Work Phone: [facility]; [facility] Work Phone: Payers Date Payer Category Payer Self-pay [id number] 2021 Medicare HUMANA MEDICARE HUMANA GOLD PLUS [id number] 2021-Present [id number] [place] [phone] [facility] [id number] 2021 Medicare HUMANA MEDICARE HUMANA GOLD PLUS [id number] 2021-Present [phone] [place] [id number] O [id number] 2021 Medicare (Managed Care) HUMANA G OLD PLUS [id number] 2021 Private Health Insurance [id number] Private Health Insurance [facility] *DONOTUSE [id number] Private Health Insurance [facility] *DONOTUSE [id number] Unknown UNINSURED [id number] RELATED [id number] Unknown [id number] Unknown [id number] Unknown [id number] Unknown [id number] Unknown [id number] Social History Date Type Detail Facility Alcohol Use: Alcohol Use: [facility] Work Phone: Start: 01-27-2022 End: 08-29-2022 Caffeine Use Caffeine Use [facility] Work Phone: Comment on above: 2cups/day Living Situation: Living Situation: [facility] Work Phone: Alcohol Use: Alcohol Use: [facility] Work Phone: [facility] Work Phone: Start: 10-12-2021 End: 06-29-2022 Tobacco smoking status NHIS Unknown if ever smoked [facility] Start: 1955 Sex Assigned At Female C [facility] Start: 11-01-2021 End: 12-18-2021 Tobacco smoking status NHIS Never smoked tobacco [facility] Start: 11-01-2021 End: 12-18-2021 Tobacco use and exposure Smokeless tobacco non-user [facility] Start: 11-01-2021 End: 06-12-2022 History SDOH Alcohol Frequency 5 [facility] Start: 11-01-2021 End: 06-12-2022 History SDOH Alcohol Std Drinks 1 [facility] Start: 11-01-2021 End: 06-12-2022 History SDOH Social Connections Get Together 2 [facility] Start: 11-01-2021 History SDOH Social Connections Synagogue 3 [facility] Start: 11-01-2021 End: 06-12-2022 History SDOH Financial 4 [facility] Start: 10-22-2021 End: 01-27-2022 Exposure to SARS-CoV-2 (event) Not sure [facility] Start: 01-27-2022 End: 06-27-2022 Alcohol intake Current drinker of alcohol (finding) [facility] Start: 10-31-2021 End: 08-29-2022 Social connection and isolation panel [facility] Do you belong to any clubs or organizations such as christian groups, unions, fraternal or athletic groups, or school groups? Yes [facility] Are you now , , , , never or living with a partner? [facility] How often to you hav e a drink containing alcohol? 2-3 time sa week [facility] How many standard drinks containing alcohol do you have on a typical day? 1 or 2 [facility] How often do you hav e 6 or more drinks on 1 occasion? Never [facility] How hard is it for y ou to pay for the very basics like food, housing, medical care, and heating Not hard at all [facility] Do you feel stress - tense, restless, nervous, or anxious, or unable to sleep at night because your mind is troubled all the time - these days [OSQ] To some extent [facility] (I/We) worried jackson er (my/our) food would run out before (I/we) got money to buy more. Never true [facility] In the past 12 month s, was there a time when you were not able to pay the mortgage or rent on time? No [facility] Start: 10-29-2021 Gender identity Identifies as female gender (finding) [facility] Start: 10-29-2021 Sexual orientation Heterosexual (shea craig) [facility] Start: 01-29-2023 End: 09-28-2024 Alcohol intake Ex-drinker (finding) [facility] Start: 01-22-2023 Alcohol Comment occasionally [facility] How often to you hav e a drink containing alcohol? 4 or more times a week [facility] How hard is it for y ou to pay for the very basics like food, housing, medical care, and heating Not very hard [facility] Do you feel stress - tense, restless, nervous, or anxious, or unable to sleep at night because your mind is troubled all the time - these days [OSQ] Rather much [facility] Goals Date Patient Goal Desired Activity /State Mental Status Date Assessment Result Facility 02-21-2022 Cognitive function Touch/Shaking [facility] Work Phone: 02-21-2022 Cognitive function Patient Carol mauricio Person;Place;Time [facility] Work Phone: Clinical Notes 11-01-2021 to 11-02-2024 Genie Carey - 11/02/2024 11:20 AM New Barnes LPN - 11/01/2024 7:13 AM Leeann Espinal MA - 10/31/2024 3:07 PM EDTPatiLeeann Mohan MA - 10/11/2024 9:26 AM EDT Note Date & Type Note Facility 11-02-2024 Note HNO ID: [id number] Author: ?, ?, ? Service: ? Author Type: ? Type: Progress Notes Filed: 11/02/2024 11:21 Note Text: POPULATION HEALTH NAVIGATION OUTREACH Action/FYI Patient was not outreached in 2024. No HCCs. NO HM due. Chart review Reason for Outreach Care Gap/HCC or Scheduling Wellness Visits Care Gaps due: N/A Patient Contacted: Unable or unnecessary to reach patient: Chart Review only Navigation Signature: Genie Cotter November 02, 2024 11:20 AM [facility] 11-02-2024 History of Presen t illness Narrative POPULATION HEALTH NAVIGATION OUTREACH Action/FYI Patient was not outreached in 2024. No HCCs. NO HM due. Chart review Reason for Outreach Care Gap/HCC or Scheduling Wellness Visits Care Gaps due: N/A Patient Contacted: Unable or unnecessary to reach patient: Chart Review only Navigation Signature: Genie Cotter November 02, 2024 11:20 AM documented in this encounter [facility] 11-02-2024 Note Patient Outreach (NE TNAV) MICHAEL VELAZQUEZ ([id number]) 1955 F Date Time Provider Department 11/02/24 REMY PEREZ During your visit today, we recorded the following information about you: Genie Carey 11/02/2024 11:21 AM Signed POPULATION HEALTH NAVIGATION OUTREACH Action/FYI Patient was not outreached in 2024. No HCCs. NO HM due. Chart review Reason for Outreach Care Gap/HCC or Scheduling Wellness Visits Care Gaps due: N/A Patient Contacted: Unable or unnecessary to reach patient: Chart Review only Navigation Signature: Genie Wilkes Pss November 02, 2024 11:20 AM Allergies As of Date: 11/02/2024 Noted Allergy Reaction AUGMENTIN (AMOXICILLIN-POT CLAVUL*11/01/2021 8 - GI Upset Date Reviewed: 10/14/2024 Reviewed by: New Renee LPN - Fully Assessed Reason for Visit: Population Health Navigation Outreach [3910] Cmt: Sharifa Head Prescriptions as of 11/02/2024 - amLODIPine (NORVASC) 5 mg tablet Take 1 tablet by mouth once daily. - metoprolol succinate ER (TOPROL XL) 25 mg 24 hr tablet Take 0.5 tablets by mouth once daily. - rosuvastatin (CRESTOR) 20 mg tablet Take 1 tablet by mouth daily at bedtime. - levothyroxine (LEVOXYL) 100 mcg tablet Take 1 tablet by mouth once daily. - gabapentin (NEURONTIN) 300 mg capsule Take 1 capsule by mouth two times a day for 180 days. - traZODone (DESYREL) 150 mg tablet Take 1 tablet by mouth daily at bedtime. - multivit with minerals/lutein (MULTIVITAMIN 50 PLUS [...] twice daily. Problem List As Of Date 11/02/2024 Noted Resolved Primary insomnia [F51.01] 11/01/2021 Postoperative hypothyroidism [E89.0] 11/01/2021 Hypertension, essential [I10] 11/01/2021 RLS (restless legs syndrome) [G25.81] 11/01/2021 History of COVID-19 [Z86.16] 11/01/2021 Elevated blood sugar [R73.9] 11/19/2021 Positive FELICIA (antinuclear antibody) [R76.8] 11/21/2021 Left upper extremity [...] right foot [M72.2] 07/18/2024 Encounter Status:Closed by GENIE CAREY on 11/02/24 [facility] 11-01-2024 Note HNO ID: [id number] Author: NEW RENEE LPN Service: ? Author Type: LICENSED NURSE Type: Progress Notes Filed: 11/01/2024 07:14 Note Text: Scan on 10/31/2024 3:40 PM by ProviderFelicita PABitaC: Stress Test [facility] 11-01-2024 History of Presen t illness Narrative Scan on 10/31/2024 3:40 PM by ProviderFelicita PA-C: Stress Test documented in this encounter [facility] 10-31-2024 Note HNO ID: [id number] Author: LEEANN WAKEFIELD MA Service: ? Author Type: Broadcast Technician Type: Progress Notes Filed: 10/31/2024 15:08 Note Text: Outside Echo results. View External Cardiology - Echo [ID [id number]] Leeann Wakefield MA [facility] 10-31-2024 History of Presen t illness Narrative Outside Echo results. View External Cardiology - Echo [ID [id number]] Leeann Wakefield MA documented in this encounter [facility] 10-17-2024 Telephone encounter Note Pt is requesting to have a 90 day supply. Pt had ov 10/14/24 and has f/u appointment 02/08/25. New Renee LPN [facility] 10-17-2024 Miscellaneous Notes Pt is requesting to have a 90 day supply. Pt had ov 10/14/24 and has f/u appointment 02/08/25. New Renee LPN documented in this encounter [facility] 10-14-2024 Instructions Aziza Thompson PA-C - 10/14/2024 11:44 AM EDT Vit E 800units at night 6oz of tonic water at night. If not improving we could either start baclofen at bedtime or increase gabapentin. Let me know in 2-4 weeks how things are going and how you would like to proceed. documented in this encounter [facility] 10-14-2024 Note HNO ID: [id number] Author: AZIZA THOMPSON PA-C Service: ? Author Type: Physician Health Concierge Type: Progress Notes Filed: 10/14/2024 12:04 Note Text: Chief Complaint Patient presents with: Recheck: Follow up medication HPI Michael Velazquez is a 68 year old female who presents here today for recheck. Hypertension: - Recently switched from losartan to amlodipine; Michael reports improved BP control. Bradycardia: - Noted HR in the 40s with associated fatigue. - Report Programmer agreed with halving the beta-michelle dose to 12.5 mg, resulting in improved HR. - Scheduled for an echocardiogram and stress test in the next few weeks. - Still experiencing occasional palpitations. Leg Cramps: - Persistent leg cramps, particularly in the right foot, noted upon waking and stretching. - Flexeril provides some relief but causes significant grogginess and depressive symptoms. - Recent shadowgraph operator visit ruled out stump neuromas; shadowgraph operator suggested possible nerve involvement. - Michael is taking gabapentin 300 mg, previously BID, [...] Completed Advance Directive (more content not included)... [facility] 10-14-2024 History of Presen t illness Narrative Chief Complaint Patient presents with: Recheck: Follow up medication HPI Michael Velazquez is a 68 year old female who presents here today for recheck. Hypertension: - Recently switched from losartan to amlodipine; Michael reports improved BP control. Bradycardia: - Noted HR in the 40s with associated fatigue. - Report Programmer agreed with halving the beta-michelle dose to 12.5 mg, resulting in improved HR. - Scheduled for an echocardiogram and stress test in the next few weeks. - Still experiencing occasional palpitations. Leg Cramps: - Persistent leg cramps, particularly in the right foot, noted upon waking and stretching. - Flexeril provides some relief but causes significant grogginess and depressive symptoms. - Recent shadowgraph operator visit ruled out stump neuromas; shadowgraph operator suggested possible nerve involvement. - Michael is taking gabapentin 300 mg, previously BID, [...] the next 2-4 weeks; patient to send [employer] message with updates. - If no improvement, consider starting baclofen or increasing gabapentin dosage. 2. Hypertension, essential (I10) - Blood pressure remains stable on current regimen of amlodipine. - Stay off of losartan - Continue monitoring blood pressure. - Follow-up scheduled in January. Aziza Thompson PA-C Recording using [email or web address] software for draft documentation of the visit was discussed with the patient/authorized manufacturing sales representative; all questions welcomed and answered. Patient/authorized manufacturing sales representative agreed to proceed documented in this encounter [facility] 10-11-2024 Note HNO ID: [id number] Author: LEEANN WAKEFIELD MA Service: ? Author Type: Broadcast Technician Type: Progress Notes Filed: 10/11/2024 09:27 Note Text: Scan on 10/11/2024 7:56 AM by ProviderFelicita PA-C: Consultation - Podiatry [facility] 10-11-2024 History of Presen t illness Narrative Scan on 10/11/2024 7:56 AM by ProviderFelicita PA-C: Consultation - Podiatry documented in this encounter [facility] 10-07-2024 Note HNO ID: [id number] Author: QUOC MCCRACKEN PT Service: ? Author [...] OF CARE PLAN OF CARE UPDATE: Assessment: Michael Velazquez is discontinued from Physical Therapy services due to Patient/Client declining further intervention.. Patient was seen for 4 visits from Start of Care Date: 07/18/24 to 10/07/2024 and treatment included: Therapeutic exercise, Manual therapy, and Self-longterm management. Goals updated 08/22/2024 Goals for Episode of Care: established 07/18/24 Leeper in home exercise program. - MET Perform [...] paraspinals Needle length: 50mm 2.0 in . Otis used 2, needles removed 2. Dry needling [...] Stop Time : 1455 Quoc Mccracken PT [facility] 10-07-2024 History of Presen t illness [...] OF CARE PLAN OF CARE UPDATE: Assessment: Michael Velazquez is discontinued from Physical Therapy services due to Patient/Client declining further intervention.. Patient was seen for 4 visits from Start of Care Date: 07/18/24 to 10/07/2024 and treatment included: Therapeutic exercise, Manual therapy, and Self-longterm management. Goals updated 08/22/2024 Goals for Episode of Care: established 07/18/24 Leeper in home exercise program. - MET Perform [...] paraspinals Needle length: 50mm 2.0 in . Otis used 2, needles removed 2. Dry needling [...] Quoc Mccracken PT documented in this encounter [facility] 09-28-2024 Instructions Aziza Thompson PA-C - 09/28/2024 [...] in 2 weeks. documented in this encounter [facility] 09-28-2024 Note HNO ID: [id number] Author: AZIZA THOMPSON PA-C Service: ? Author Type: Physician Health Concierge Type: Progress Notes Filed: 09/28/2024 13:04 Note Text: Chief Complaint Patient presents with: Follow Up: Leg cramps HPI Michael Velazquez is a 68 year old female [...] a role. She will be seeing her shadowgraph operator next week to evaluate further. She has [...] Advantage Annual We (more content not included)... [facility] 09-28-2024 History of Presen t illness Narrative Chief Complaint Patient presents with: Follow Up: Leg cramps HPI Michael Velazquez is a 68 year old female [...] a role. She will be seeing her shadowgraph operator next week to evaluate further. She has [...] making components. I have reviewed the Physician Health Concierge (PA) student's documentation and verified the findings in the note as written. Any additions or changes are noted in bold/italics. Aziza Thompson PA-C documented in this encounter [facility] 09-21-2024 Miscellaneous Notes The following approved medication requests have been transmitted electronically. Requested Prescriptions Signed Prescriptions Disp Refills levothyroxine (LEVOXYL) 100 mcg tablet 90 tablet 1 Sig: Take 1 tablet by mouth once daily. Remy Perez MD documented in this encounter [facility] 09-21-2024 Telephone encounter Note The following approved medication requests have been transmitted electronically. Requested Prescriptions Signed Prescriptions Disp Refills levothyroxine (LEVOXYL) 100 mcg tablet 90 tablet 1 Sig: Take 1 tablet by mouth once daily. Remy Perez MD [facility] 09-20-2024 Note HNO ID: [id number] Author: NEW RENEE LPN Service: ? Author Type: LICENSED NURSE Type: Progress Notes Filed: 09/20/2024 13:20 Note Text: Pt notified of same. Verbalizes understanding of instructions. Pt advises that she has already made an appointment with the lab for this this afternoon. New Renee LPN [facility] 09-20-2024 Note Addended by: REMY PEREZ on: 09/20/2024 09:00 AM Modules accepted: Orders [facility] 09-20-2024 Miscellaneous Notes Addended by: REMY PEREZ on: 09/20/2024 09:00 AM Modules accepted: Orders documented in this encounter [facility] 09-20-2024 Note HNO ID: [id number] Author: REMY PEREZ MD Service: ? Author [...] her. I have found a discrepancy between [facility] labs and our labs at times. [facility] 09-20-2024 History of Presen t illness Narrative Let patient know I received a copy of her resent labs from [facility] and seen that her TSh was elevated. I placed orders to repeat this at our lab so it's being done on the same machine as usual for her. I have found a discrepancy between [facility] labs and our labs at times. Scan on 09/19/2024 6:35 PM by ProviderFelicita PABitaC: Chemistry documented in this encounter [facility] 09-20-2024 Note HNO ID: [id number] Author: NEW RENEE LPN Service: ? Author Type: LICENSED NURSE Type: Progress Notes Filed: 09/20/2024 08:28 Note Text: Scan on 09/19/2024 6:35 PM by ProviderFelicita PABitaC: Chemistry [facility] 09-19-2024 Evaluation note Diagnosis Onset Date Resolution Dyslipidemia chronic September 19 1:58pm Generalized anxiety disorder chronic September 19, 2024 1 :58pm Hypertension, essential chronic J 2024 1:58pm Palpitations chronic September 19 1:58pm SVT (supraventricular tachycardia) chronic September 19, 2024 1 :58pm [facility] Work Phone: 1(800) 423-850906-02-2025 Progress [facility] [address] [place] [address] OFFICE VISIT Date of Service: 09/19/24 MR#: [id number] Acct: [id number] Name: MICHAEL VELAZQUEZ Rep #: [id number] : 1955 Provider: Dr. Regis Goldstein MD Age/Sex: 68/F Location: [facility] Status: Signed HPI HPI History of Present [...] year or so. She feels her heart "fluttering" for a few seconds at most. Occasionally [...] Pulse Source NIBP Intake Visit Reasons: SVT (CHRIS) School Bus Operator Required: No Accompanied by: Is patient in [...] tablet 50 mg PO QDAY 09/15/2409/19 History bncqgyji-dza-gkts-FA-vit K-lut PO DAILY 09/15/2409/19 History [Multivitamin Women [...] Cosigner Signature: Date (if applicable) CC: ~ [facility]06-02-2025 Progress note Author Bg Goldstein [facility] Note Date/Time September 19, 2024 3:08p m [facility] [address] [place] [address] OFFICE VISIT Date of Service: 09/19/24 MR#: [id number] Acct: [id number] Name: MICHAEL VELAZQUEZ Rep #: [id number] : 1955 Provider: Dr. Regis Goldstein MD Age/Sex: 68/F Location: [facility] [place] Status: Signed HPI HPI History of Present [...] year or so. She feels her heart "fluttering" for a few seconds at most. Occasionally [...] Pulse Source NIBP Intake Visit Reasons: SVT (CHRIS) School Bus Operator Required: No Accompanied by: Is patient in [...] tablet 50 mg PO QDAY 09/15/2409/19 History iksauihh-gpg-wgrg-FA-vit K-lut PO DAILY 09/15/2409/19 History [Multivitamin Women [...] fallen in the past year?: No 09/19/24 4462 <Electronically signed by Bg Goldstein MD> Date _ Bg Goldstein MD Cosigner Signature: Date (if applicable) CC: ~ [facility] Work Phone: 1(964) 527-464705-29-2025 Telephone encounter Note* Telephone Encounter - New [...] Renee LPN September 15, 2024 9:42 AM [facility]05-29-2025 Miscellaneous Notes* Telephone Encounter - New Renee [...] 15, 2024 9:42 AM documented in this encounterL[facility] Telephone encounter Note * Telephone Encounter - [...] Renee LPN September 15, 2024 9:41 AM [facility]05-29-2025 Miscellaneous Notes* Telephone Encounter - New Renee [...] 15, 2024 9:41 AM documented in this encounterL[facility] Instructions* Patient Instructions* Aziza Thompson PA-C - 08/25/2024 12:43 PM EDT Discontinue your pravastatin for the next 1-2 weeks to see if your leg and foot cramps improve. Please send a [employer] message after 2 weeks with an update [...] cramps before then, please contact us via [employer]. documented in this encounterLake [facility]-2025 NoteHNO ID: [id number] Author: AZIZA THOMPSON PA-C Service: ? Author Type: Physician Health Concierge Type: Progress Notes Filed: 08/25/2024 12:51 Note Text: Chief Complaint Patient presents with: Follow Up: Blood pressure HPI Michael Velazquez is a 68 year old female [...] and upcoming major surgery. - Reports feeling "off," with periods of numbness and desire to [...] 08/08/2025 Anxiety Screening du (more content not included)...[facility] 08-25-2024 History of Present illness Narrative* Aziza Thompson PA-C - 08/25/2024 12:18 PM EDT Chief Complaint Patient presents with: Follow Up: Blood pressure HPI Michael Velazquez is a 68 year old female [...] and upcoming major surgery. - Reports feeling "off," with periods of numbness and desire to [...] daily as needed. - Prescription sent to [facility]. - Discussed potential need for additional antidepressant therapy if anxiety remains uncontrolled. Aziza Thompson PA-C Recording using [email or web address] software for draft documentation of the visit was discussed with the patient/authorized manufacturing sales representative; all questions welcomed and answered. Patient/authorized manufacturing sales representative agreed to proceed documented in this encounterLake [facility]25 NoteHNO ID: [id number] Author: QUOC MCCRACKEN PT Service: ? Author [...] PROGRESS REPORT PLAN OF CARE UPDATE: Assessment: Michael Velazquez demonstrates significant improvement in low back [...] Goals for Episode of Care: established 07/18/24 Lee[place] in home exercise program. - MET Perform [...] Patient to be seen for Therapeutic exercise (41934), Neuromuscular re-education (16941), Manual therapy (68227), Therapeutic activities (54419), Self-longterm management (37651), Patient/Family/Caregiver Education, Body Mechanics Training PLAN FOR [...] Normal Lumbar Extension: Normal Lumbar R Side Nicholson: Normal Lumbar L Side Nicholson: Normal Lumbar R Side-Bend: Normal Lumbar L [...] paraspinals Needle length: 50mm 2.0 in . Otis used 2, needles removed 2. Dry needling [...] Session Stop Time : 1435 Quoc Mccracken [facility]05-05-2025 History of Present illness Narrative* Quoc Mccracken, PT - 08/22/2024 1:51 PM EDT Images from the original note were not included. Episode Visit Count: 5 Therapist That Will Accept/Oversee The Plan Of Care: Qouc Mccracken PT Start of Care Date: 07/18/24 Onset Date: 06/17/24 Plan of Care Certification Date: 08/22/24 Next Certification Due Date: 10/17/24 Patient Identified by Name and Date of : Yes [facility] PHYSICAL THERAPY PROGRESS REPORT PLAN OF CARE UPDATE: Assessment: Michael Velazquez demonstrates significant improvement in low back [...] Goals for Episode of Care: established 07/18/24 Leeper in home exercise program. - MET Perform [...] Patient to be seen for Therapeutic exercise (45128), Neuromuscular re-education (20883), Manual therapy (94334), Therapeutic activities (22949), Self-longterm management (76768), Patient/Family/Caregiver Education, Body Mechanics Training PLAN FOR [...] Normal Lumbar Extension: Normal Lumbar R Side Nicholson: Normal Lumbar L Side Nicholson: Normal Lumbar R Side-Bend: Normal Lumbar L [...] paraspinals Needle length: 50mm 2.0 in . Otis used 2, needles removed 2. Dry needling [...] 1435 Quoc Mccracken PT documented in this encounterL[facility] Telephone encounter Note * Telephone Encounter - GERI PAZ - 08/09/2024 11:11 AM EDT Patient notified of results, verbalizes understanding of instructions. Geri Paz LPN [facility]04-22-2025 Miscellaneous Notes* Telephone Encounter - GERI PAZ [...] normal. Aziza Thompson PA-C documented in this encounterLake [facility] Telephone encounter Note * Telephone Encounter - Aziza Thompson PA-C - 08/09/2024 10:32 AM EDT Let patient know that her labs are overall stable. LDL went up some to 132. Maryellen to see these closerto 100. Magnesium is slightly elevated. If she is taking magnesium supplement, she could decrease. Rest of labs are all normal. Aziza Thompson PA-C [facility]04-21-2025 Instructions* Patient Instructions* Aziza Thompson PA-C - [...] review all the medicines you take, even hjac-xvf-edqcrps medicines. As you get older, the way [...] have certain medical conditions. documented in this encounterLake [facility]04-[facility]-2025 NoteHNO ID: [id number] Author: AZIZA THOMPSON PA-C Service: ? Author Type: Physician Health Concierge Type: Progress Notes Filed: 08/08/2024 14:45 Note Text: Michael Velazquez is a 68 year old female [...] ?F) Resp 16 Ht 157 cm (5' 1.81") Wt 53.5 kg (118 lb) SpO2 97% BMI 21.71 kg/m? Vision Screening: Follows with optometry/ophthalmology Assessment/Plan Medicare annual wellness visit, subsequent (Z00.00) - Counseled on healthy diet and regular exercise - Fall avoidance information provided - Personalized prevention plan provided Chief Complaint Patient presents with: Medicare Wellness Exam HPI Michael Velazquez is a 68 year old female who presents here today for extensive exam. Patient with hx of HTN, hyperlipidemia, hypothyroidism, elevated blood sugar, and those as below. Annual Wellness Exam: - No recent medical or surgical changes. - Recent eye exam completed. - No advanced directive completed yet. - recently received a [employer] message indicating a possible recurrence of a [...] young age. Palpitations: - Palpitations described as "pounding" and "flip-flops" in chest, occurring daily, worse after waking up. - Associated with a need to take deep breaths; no associated pain. - Palpitations noticed before and after consuming 2 cups of coffee in the morning. - No history of stress test. Leg Cramps: - Severe leg and foot cramps, especially at night, described as foot drawing down like a "claw" and extending into the calf. - Cramps occur more frequently, sometimes during the day, particularly after walking and putting groceries in the car. - Taking magnesium at night and using The[employer]Works on calves with uncertain benefit. 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 - Feet are always cold; shadowgraph operator mentioned possible Raynaud's syndrome. - Describes a sensation in calves like "worms wiggling around." - Recent incident of right knee pain described as something "caught" under the kneecap, causing limping; similar incident occurred previously with no abnormalities found on x-ray. Past medical history, appointments, medications, allergies reviewed. Previous Medical History PAST MEDICAL HISTORY Diagnosis Date Elevated blood sugar 11/19/2021 History of COVID-19 11/01/2021 10/11/2021 Hyperlipidemia, mixed 12/24/2022 Hypertension, essential 11/01/2021 Lumbar back pain 05/21/2022 Osteopenia, senile 08/26/2023 Plantar fasciitis 06/02/2024 Rt He (more content not included)...[facility]04-21-2025 History of Present illness Narrative* Aziza Thompson PA-C - 08/08/2024 1:29 PM EDT Images from the original note were not included. Michael Velazquez is a 68 year old female [...] F) Resp 16 Ht 157 cm (5' 1.81") Wt 53.5 kg (118 lb) SpO2 97% BMI 21.71 kg/m Vision Screening: Follows with optometry/ophthalmology Assessment/Plan Medicare annual wellness visit, subsequent (Z00.00) - Counseled on healthy diet and regular exercise - Fall avoidance information provided - Personalized prevention plan provided Chief Complaint Patient presents with: Medicare Wellness Exam HPI Michael Velazquez is a 68 year old female who presents here today for extensive exam. Patient with hx of HTN, hyperlipidemia, hypothyroidism, elevated blood sugar, and those as below. Annual Wellness Exam: - No recent medical or surgical changes. - Recent eye exam completed. - No advanced directive completed yet. - recently received a [employer] message indicating a possible recurrence of a [...] young age. Palpitations: - Palpitations described as "pounding" and "flip-flops" in chest, occurring daily, worse after waking up. - Associated with a need to take deep breaths; no associated pain. - Palpitations noticed before and after consuming 2 cups of coffee in the morning. - No history of stress test. Leg Cramps: - Severe leg and foot cramps, especially at night, described as foot drawing down like a "claw" andextending into the calf. - Cramps occur more frequently, sometimes during the day, particularly after walking and putting groceries in the car. - Taking magnesium at night and using TheraWorks on calves with uncertain benefit. 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 - Feet are always cold; shadowgraph operator mentioned possible Raynaud's syndrome. - Describes a sensation in calves like "worms wiggling around." - Recent incident of right knee pain described as something "caught" under the kneecap, causing limping; similar incident [...] F) Resp 16 Ht 157 cm (5' 1.81") Wt 53.5 kg (118 lb) SpO2 97% BMI 21.71 kg/m BP 143/85 (BP Site: Right Arm, BP Position: Sitting, BP Cuff Size: Regular Adult) Pulse (!) 58 Temp 36.9 C (98.4 F) Resp 16 Ht 157 cm (5' 1.81") Wt 53.5 kg (118 lb) SpO2 97% [...] which included preparing to see the patient, yjsh-rx-ipwa patient care, completing clinical documentation, obtaining and/or reviewing separately obtained history, performing a medically appropriate examination, counseling and educating the pat ient/family/caregiver, ordering medications, tests, or procedures, and communicating results to thepatient/family/caregiver. Recording using [email or web address] software for draft documentation of the visit was discussed with the patient/authorized manufacturing sales representative; all questions welcomed and answered. Patient/authorized manufacturing sales representative agreed to proceed documented in this encounterLake County [facility]04-[facility]-2025 NoteHNO ID: [id number] Author: ASHOK DESAI MD Service: ? Author Type: Physician Type: Procedures Filed: 09/06/2024 16:10 Note Text: Patient Name: Michael Velazquez : 1955 Ordering Provider: Aziza Thompson [...] VE Triplets were present. Ventricular Bigeminy was present.[facility]04-17-2025 NoteHNO ID: [id number] Author: QUOC MCCRACKEN PT Service: ? Author [...] PROGRESS REPORT PLAN OF CARE UPDATE: Assessment: Michael Velazquez demonstrates improvements in heel pain and [...] Goals for Episode of Care: established 07/18/24 Leeper in home exercise program. - MET Perform [...] Patient to be seen for Therapeutic exercise (56853), Neuromuscular re-education (58275), Manual therapy (28784), Therapeutic activities (58541), Self-longterm management (72389), Patient/Family/Caregiver Education, Body Mechanics Training PLAN FOR [...] Minimal limitation, Increased pain Lumbar R Side Nicholson: Normal Lumbar L Side Nicholson: Minimal limitation Lumbar R Side-Bend: Normal Lumbar [...] paraspinals Needle length: 50mm 2.0 in . Otis used 2, needles removed 2. Dry needling [...] (minutes): 34 Session Sta (more content not included)...[facility]04-17-2025 History of Present illness Narrative* Quoc [...] PROGRESS REPORT PLAN OF CARE UPDATE: Assessment: Michael Velazquez demonstrates improvements in heel pain and [...] Goals for Episode of Care: established 07/18/24 Leeper in home exercise program. - MET Perform [...] Patient to be seen for Therapeutic exercise (78638), Neuromuscular re-education (56077), Manual therapy (04956), Therapeutic activities (56696), Self-longterm management (09019), Patient/Family/Caregiver Education, Body Mechanics Training PLAN FOR [...] Minimal limitation, Increased pain Lumbar R Side Nicholson: Normal Lumbar L Side Nicholson: Minimal limitation Lumbar R Side-Bend: Normal Lumbar [...] 1432 Quoc Mccracken PT documented in this encounterLake [facility]04-[facility] Telephone encounter Note * Telephone Encounter - Remy Perez MD - 07/24/2024 2:42 PM EDT PHYSICAL THERAPY order placed. [facility]04-06-2025 Miscellaneous Notes* Telephone Encounter - Remy Perez MD - 07/24/2024 2:42 PM EDT PHYSICAL THERAPY order placed. * Telephone Encounter - Gail Posada RN [...] message. Gail Posada RN documented in this encounterLake County [facility]04-02-2025 Telephone encounter Note * Telephone Encounter - [...] Perez responds to message. Gail Posada RN [facility]04-02-2025 Telephone encounter Note* Telephone Encounter - Jarad Paredes MD - 07/20/2024 11:20 AM EDT This question was addressed on [employer] message from 07/18. See other message and close this encounter please to avoid confusion/duplication. [facility] Work Phone: 1(668) 718-522804-02-2025 Miscellaneous Notes* Telephone Encounter - Jarad Paredes MD - 07/20/2024 11:20 AM EDT This question was addressed on [employer] message from 07/18. See other message and close this encounter please to avoid confusion/duplication. documented in this encounterLake County [facility]04-01-2025 Telephone encounter Note * Telephone Encounter - Aniyah Ramon LPN - 07/19/2024 4:29 PM EDT ----- Message from Jarad Paredes MD sent at 07/19/2024 1:14 PM EDT ----- Negative mammogram. Repeat in 1 year. [facility]04-01-2025 Miscellaneous Notes* Telephone Encounter - Aniyha Ramon LPN - 07/19/2024 4:29 PM EDT ----- Message from Jarad Paredes MD sent at 07/19/2024 1:14 PM EDT ----- Negative mammogram. Repeat in 1 year. documented in this encounterLake County [facility]03-31-[facility] History of Present illness Narrative* Enrique Espinoza, Mammo Tech - 07/18/2024 2:10 PM EDT Radiology Service Progress Note PATIENT NAME: Michael Velazquez DATE OF SERVICE: July 18, 2024 [...] PATIENT PRESENTS WITH AN IMPLANTABLE OR ATTACHED SANITOR: No RADIOLOGY DEPARTMENT: Mammography PERIPHERAL IV DATA: Not applicable SIGNED BY: Kwesi Layton July 18, 2024 2:19 PM documented in this encounterLake County [facility]03-31-2025 NoteHNO ID: [id number] Author: ENRIQUE ESPINOZA Mammo Tech Service: ? Author Type: Nursery School Teacher Type: Progress Notes Filed: 07/18/2024 14:19 Note Text: Radiology Service Progress Note PATIENT NAME: Michael Velazquez DATE OF SERVICE: July 18, 2024 [...] PATIENT PRESENTS WITH AN IMPLANTABLE OR ATTACHED SANITOR: No RADIOLOGY DEPARTMENT: Mammography PERIPHERAL IV DATA: Not applicable SIGNED BY: Kwesi Layton July 18, 2024 2:19 [facility]03-31-2025 NoteHNO ID: [id number] Author: QUOC MCCRACKEN PT Service: ? Author [...] PHYSICAL THERAPY EVALUATION PLAN OF CARE: Assessment: Michael Velazquez presents with chief complaint of R [...] Goals for Episode of Care: established 07/18/24 Leeper in home exercise program. Perform standing/walking without pain. Improve flexibility of R gastrocnemius to WNL for decreased stress to the R plantar fascia when walking Normal gait. Patient Goals: Help prevent foot pain Time Frame for Goals and Treatment : 08/15/24 Planned Interventions, Frequency, and Duration: Current Frequency: 1x/month Duration: One month Total Number of Visits Planned: 1 Planned Treatment Interventions: Therapeutic exercise (10619), Neuromuscular re-education (17419), Manual therapy (93638), Therapeutic activities (52335), Self-longterm management (42561), Patient/Family/Caregiver Education, Body Mechanics Training PLAN FOR [...] States/Identifies, Return Demonstration TREATMENT: PT Treatment Interventions: Self-Residential Management Evaluation Self-Residential Management: 1: Discussed anatomy of the foot and ankles, focusing on the plantar fascia. Explained the windlas mechanism of the plantar fascia. Discussed the mechanics of the foot and ankle in a perfect scenario and discussed how wearing shoes with arch support can improve pt's mechanics and decrease pain with standing/walking. Jenna (more content not included)...[facility]03-31-2025 History of Present illness Narrative* Quoc [...] PHYSICAL THERAPY EVALUATION PLAN OF CARE: Assessment: Michael Velazquez presents with chief complaint of R [...] Goals for Episode of Care: established 07/18/24 Leeper in home exercise program. Perform standing/walking without pain. Improve flexibility of R gastrocnemius to WNL for decreased stress to the R plantar fascia when walking Normal gait. Patient Goals: Help prevent foot pain Time Frame for Goals and Treatment : 08/15/24 Planned Interventions, Frequency, and Duration: Current Frequency: 1x/month Duration: One month Total Number of Visits Planned: 1 Planned Treatment Interventions: Therapeutic exercise (62809), Neuromuscular re- education (59109), Manual therapy (95284), Therapeutic activities (56877), Self- longterm management (19035), Patient/Family/Caregiver Education, Body Mechanics Training PLAN FOR [...] States/Identifies, Return Demonstration TREATMENT: PT Treatment Interventions: Self-Residential Management Evaluation Self-Residential Management: 1: Discussed anatomy of the foot [...] 1215 Quoc Mccracken PT documented in this encounterLake County [facility]03-04-2025 NotePatient Outreach (FAMPWS) MICHAEL VELAZQUEZ ([id number]) 1955 F Date Time Provider Department 06/21/24 REMY PEREZ FAMPWS During your visit today, we recorded the following information about you: Allergies As of Date: 06/21/2024 Noted Allergy Reaction AUGMENTIN (AMOXICILLIN-POT CLAVUL*11/01/2021 8 - GI Upset Date Reviewed: 06/02/2024 Reviewed by: Ludy Burns MA - Fully Assessed Visit Diagnosis:Encounter for screening mammogram for breast cancer [Z12.31] Order(s):[facility] SCREENING [facility] HERNANDEZ [2128833] Order #: [id number] FUTURE Prescriptions as of 07/22/2024 - losartan [...] 11/01/2021 Elevated blood sugar [R73.9] 11/19/2021 Positive FELICIA (antinuclear antibody) [R76.8] 11/21/2021 Left upper extremity [...] Plantar fasciitis [M72.2] 06/02/2024 Encounter Status:Closed by EPIC, PRODUSER on 07/22/24[facility] 06-02-2024 NoteHNO ID: [id number] Author: REMY PEREZ MD Service: ? Author [...] betadine and alcohol. A 21 brissa 1 1/2" needle was inserted into the right medial heel. Aspiration attempted with no blood return. Medication was then injected without any difficulty. Patient tolerated well. Med: 0.75 cc Kenalog with 0.5 ml 2% Lido without Epi Remy Perez, [facility]02-13-2025 Procedure note* Remy Perez MD - 06/02/2024 [...] betadine and alcohol. A 21 brissa 1 1/2" needle was inserted into the right medial heel. Aspiration attempted with no blood return. Medication was then injected without any difficulty. Patient tolerated well. Med: 0.75 cc Kenalog with 0.5 ml 2% Lido without Epi Remy Perez MD [facility]02-13-2025 Procedure note* Remy Perez MD - 06/02/2024 [...] betadine and alcohol. A 21 brissa 1 1/2" needle was inserted into the right medial heel. Aspiration attempted with no blood return. Medication was then injected without any difficulty. Patient tolerated well. Med: 0.75 cc Kenalog with 0.5 ml 2% Lido without Epi Remy Perez MD documented in this encounterLake [facility] History of Present illness Narrative* Remy Perez MD - 06/02/2024 10:40 AM EST Chief Complaint Patient presents with: Plantar Fasciitis: Here for injection in R heel HPI Michael Velazquez is a 68 year old female [...] 137/87 Pulse 66 Ht 157.5 cm (5' 2") Wt 53.5 kg (118 lb) BMI 21.58 [...] section. Remy Perez MD documented in this encounterLake [facility]-13-2025 NoteHNO ID: [id number] Author: REMY PEREZ MD Service: ? Author Type: Physician Type: Progress Notes Filed: 06/02/2024 11:10 Note Text: Chief Complaint Patient presents with: Plantar Fasciitis: Here for injection in R heel HPI Michael Velazquez is a 68 year old female [...] 137/87 Pulse 66 Ht 157.5 cm (5' 2") Wt 53.5 kg (118 lb) BMI 21.58 [...] - see procedure note section. Remy Perez, [facility]02-10-2025 Telephone encounter Note* Telephone Encounter - New Renee LPN - 05/30/2024 8:23 AM EST Left vm of same on pt's identified vm. Also sent results via MC to pt. New Renee LPN [facility]02-10-2025 Miscellaneous Notes* Telephone Encounter - New Renee LPN - 05/30/2024 8:23 AM EST Left vm of same on pt's identified vm. Also sent results via MC to pt. New Renee LPN * Telephone Encounter - Aziza Thompson PA-C - 05/30/2024 8:05 AM EST Xray does show bone spur as we suspected. documented in this encounterLake [facility] Telephone encounter Note * Telephone Encounter - Aziza Thompson PA-C - 05/30/2024 8:05 AM EST Xray does show bone spur as we suspected. [facility]02-07-2025 Telephone encounter Note* Telephone Encounter - Yinka Messina LPN - 05/27/2024 10:59 AM EST See pt message. Xray's still in process. [facility]02-07-2025 Miscellaneous Notes* Telephone Encounter - Yinka Messina LPN - 05/27/2024 10:59 AM EST See pt message. Xray's still in process. documented in this encounterLake [facility] History of Present illness Narrative* Sylvia Lr Tech - 05/26/2024 12:20 PM EST Radiology Service Progress Note PATIENT NAME: Michael Velazquez DATE OF SERVICE: May 26, 2024 [...] PATIENT PRESENTS WITH AN IMPLANTABLE OR ATTACHED SANITOR: No RADIOLOGY DEPARTMENT: General X-ray: Exam(s) Completed: Pelvis X-Ray: Pelvis with Hip Left Lower Extremity X-Ray(s): Foot, Right PERIPHERAL IV DATA: Not applicable SIGNED BY: Dilan Velasquez May 26, 2024 12:40 PM documented in this encounterLake County [facility]02-06-2025 NoteHNO ID: [id number] Author: SYLVIA LR Tech Service: ? Author Type: Technologist Type: Progress Notes Filed: 05/26/2024 12:40 Note Text: Radiology Service Progress Note PATIENT NAME: Michael Velazquez DATE OF SERVICE: May 26, 2024 [...] PATIENT PRESENTS WITH AN IMPLANTABLE OR ATTACHED SANITOR: No RADIOLOGY DEPARTMENT: General X-ray: Exam(s) Completed: Pelvis X-Ray: Pelvis with Hip Left Lower Extremity X-Ray(s): Foot, Right PERIPHERAL IV DATA: Not applicable SIGNED BY: Dilan Velasquez May 26, 2024 12:40 [facility]02-06-2025 NoteHNO ID: [id number] Author: AZIZA THOMPSON PA-C Service: ? Author Type: Physician Health Concierge Type: Progress Notes Filed: 05/26/2024 12:19 Note Text: xrayChief Complaint Patient presents with: plantar fascitis: Right foot has gotten worse HPI Michael Velazquez is a 68 year old female [...] hip pain - I (more content not included)...[facility]02-06-2025 History of Present illness Narrative* Aziza Thompson PA- C - 05/26/2024 11:45 AM EST xrayChief Complaint Patient presents with: plantar fascitis: Right foot has gotten worse HPI Michael Velazquez is a 68 year old female [...] RIGHT Aziza Thompson PA-C documented in this encounterLake [facility]-28-2025 Telephone encounter Note * Telephone Encounter - Marcelle Blevins - 05/17/2024 9:49 AM EST Patient reviewed for Population Health Medication Adherence Pended the following prescription(s) for review. Requested Prescriptions Pending Prescriptions Disp Refills losartan (COZAAR) 25 mg tablet 90 tablet 1 Sig: Take 1 tablet by mouth once daily. Take one tablet daily Future Appointments Date Time Provider Department Center 08/08/2024 1:00 PM Aziza Thompson PA-C [facility] Please review and refill if appropriate. Thank you. Marcelle Blevins May 17, 2024 9:49 AM [facility]01-28-2025 Miscellaneous Notes* Telephone Encounter - Marcelle Blevins - 05/17/2024 9:49 AM EST Patient reviewed for Population Health Medication Adherence Pended the following prescription(s) for review. Requested Prescriptions Pending Prescriptions Disp Refills losartan (COZAAR) 25 mg tablet 90 tablet 1 Sig: Take 1 tablet by mouth once daily. Take one tablet daily Future Appointments Date Time Provider Department [place] 08/08/2024 1:00 PM Aziza Thompson PA-C [facility] [place] Please review and refill if appropriate. Thank you. Marcelle Blevins May 17, 2024 9:49 AM documented in this encounterLake County [facility]12-23-2024 Telephone encounter Note * Telephone Encounter - [...] by mouth daily at bedtime. Authorizing Provider: JOSE PORTILLO APRN.CNP [facility]12-23-2024 Miscellaneous Notes* Telephone Encounter - Rajwinder Low [...] by mouth daily at bedtime. Authorizing Provider: JOSE PORTILLO APRN.CNP * Telephone Encounter - Anabelle López MA [...] 11, 2024 12:09 PM documented in this encounterLake County [facility]12-23-2024 Telephone encounter Note * Telephone Encounter - Anabelle López MA - 04/11/2024 12:49 PM EST 2 additional refill requests. Last filled: Trazodone 11/12/23 with 90 and 1 refills Levothyroxine with 08/07/23 with 90 and 1 refills Anabelle López MA [facility]12-23-2024 Telephone encounter Note* Telephone Encounter - Angi [...] Mcguire MA April 11, 2024 12:09 PM [facility]12-09-2024 Telephone encounter Note* Telephone Encounter - Remy Perez MD - 03/28/2024 9:55 AM EST The following approved medication requests have been transmitted electronically. Requested Prescriptions Signed Prescriptions Disp Refills busPIRone (BUSPAR) 5 mg tablet 90 tablet 1 Sig: Take 1 tablet by mouth three times a day as needed. PRN Authorizing Provider: REMY PEREZ MD [facility]12-09-2024 Miscellaneous Notes* Telephone Encounter - Remy Perez [...] three times a day as needed. PRN Angi Mcguire MA March 28, 2024 9:04 AM documented in this encounterLake [facility]12-09-2024 Telephone encounter Note * Telephone Encounter - [...] Mcguire MA March 28, 2024 9:04 AM [facility]12-05-2024 NoteHNO ID: [id number] Author: QUOC MCCRACKEN PT Service: ? Author [...] OF CARE PLAN OF CARE UPDATE: Assessment: Michael Velazquez is discontinued from Physical Therapy services [...] Normal Lumbar Extension: Normal Lumbar R Side Nicholson: Normal Lumbar L Side Nicholson: Minimal limitation Lumbar R Side-Bend: Normal Lumbar L Side-Bend: Normal Lumbar R Rotation: Normal Lumbar L Rotation: Normal Gait Gait Observation: WNL TREATMENT: Manual Therapy: 1: All objective measures taken 2: DDN (see note for details) Dry needling to following Trigger points: Lumbar paraspinals and multifidi Needle length: 50mm 2.0 in . Otis used 3, needles removed 3. Dry needling technique used: Pistoning, Fanning, and Deep needling. Patient education on purpose, precautions, safety, risks, and other treatment options regarding dry needling. Verbal consent received. Skilled Intervention: Manual skills to improve joint mobility, ROM, and decrease pain. Utilized anatomy knowledge of the therapist, and assessment of patient's response to intervention. Self-Residential Management: 1: Discussed modifying the amount of [...] Session Stop Time : 1211 Quoc Mccracken [facility]12-05-2024 History of Present illness Narrative* Quoc Mccracken PT - 03/24/2024 11:32 AM EST Images [...] OF CARE PLAN OF CARE UPDATE: Assessment: Michael Velazquez is discontinued from Physical Therapy services [...] Normal Lumbar Extension: Normal Lumbar R Side Nicholson: Normal Lumbar L Side Nicholson: Minimal limitation Lumbar R Side-Bend: Normal Lumbar L Side-Bend: Normal Lumbar R Rotation: Normal Lumbar L Rotation: Normal Gait Gait Observation: WNL TREATMENT: Manual Therapy: 1: All objective measures taken 2: DDN (see note for details) Dry needling to following Trigger points: Lumbar paraspinals and multifidi Needle length: 50mm 2.0 in . Otis used 3, needles removed 3. Dry needling technique used: Pistoning, Fanning, and Deep needling. Patient education on purpose, precautions, safety, risks, and other treatment options regarding dry needling. Verbal consent received. Skilled Intervention: Manual skills to improve joint mobility, ROM, and decrease pain. Utilized anatomy knowledge of the therapist, and assessment of patient's response to intervention. Self-Residential Management: 1: Discussed modifying the amount of [...] 1211 Quoc Mccracken PT documented in this encounterLake [facility]11-21-2024 Instructions* Patient Instructions* Vale Watt APRN.TRACY - 03/10/2024 12:35 PM EST [...] analgesia. - Discussed expected course of illness Vale Watt APRN.PATIENT ACCOUNTS COORDINATOR Adult Sinusitis Patient Education What is Sinusitis? Sinusitis [qire-qwd-qlej-tis] is inflammation of the sinuses or swelling [...] help. You may be instructed to take bldz-qem-fupddtg medications for symptoms. including fever reducers acetaminophen or ibuprofen, nasal saline spray, cough and cold preparations and decongestants as prescribed by the physician, nurse practitioner or physician housing assistant property manager. Self-Care and Prevention: Rest Fluids for hydration Good hand washing Humidifier Avoid smoking and exposure to second hand smoke Avoid sick contacts documented in this encounterLake County [facility]11-21-2024 NoteHNO ID: [id number] Author: VALE WATT APRN.PATIENT ACCOUNTS COORDINATOR Service: ? Author Type: Nurse Practitioner Type: Progress Notes Filed: 03/10/2024 12:35 Note Text: Subjective Cough Associated symptoms include headaches, sore throat, myalgias and shortness of breath. Pertinent negatives include no chest pain, no chills and no ear pain. Michael Velazquez is a 68 year old female who presents with cough, sinus congestion and drainage, sore throat and headache for the past 5 days. Symptoms are worsening and now having sinus pressure and body aches along with some tightness in her throat and chest. . She recently traveled to [place] by car for a . She has [...] wheezing or rales. Musculoske (more content not included)...[facility]11-21-2024 History of Present illness Narrative* Vale Watt, EVELIN.PATIENT ACCOUNTS COORDINATOR - 03/10/2024 12:32 PM EST Subjective Cough Associated symptoms include headaches, sore throat, myalgias and shortness of breath. Pertinent negatives include no chest pain, no chills and no ear pain. Michael Velazquez is a 68 year old female who presents with cough, sinus congestion and drainage, sore throat and headache for the past 5 days. Symptoms are worsening and now having sinus pressure and body aches along with some tightness in her throat and chest. . She recently traveled to [place] by car for a . She has [...] analgesia. - Discussed expected course of illness Vale Watt APRN.PATIENT ACCOUNTS COORDINATOR documented in this encounterLake County [facility]11-07-2024 NoteHNO ID: [id number] Author: QUOC MCCRACKEN PT Service: ? Author [...] PROGRESS REPORT PLAN OF CARE UPDATE: Assessment: Michael Velazquez demonstrates difficulty with none and improvements [...] Patient to be seen for Therapeutic exercise (33417), Neuromuscular re-education (95716), Manual therapy (36028), Therapeutic activities (94168), Self-longterm management (60552), Patient/Family/Caregiver Education, Body Mechanics Training PLAN FOR [...] Time (minutes): 38 Session Start Time : 171 Session Stop Time : 175 Quoc [facility]ccrack[facility]11-07-2024 History of Present illness Narrative* [...] PROGRESS REPORT PLAN OF CARE UPDATE: Assessment: Michael Velazquez demonstrates difficulty with none and improvements [...] Patient to be seen for Therapeutic exercise (43429), Neuromuscular re-education (72908), Manual therapy (56384), Therapeutic activities (94819), Self-longterm management (52293), Patient/Family/Caregiver Education, Body Mechanics Training PLAN FOR [...] Time : 1714 Session Stop Time : 1751 Quoc Mccracken PT documented in this encounterLake County [facility]10-24-2024 NoteHNO ID: [id number] Author: QUOC MCCRACKEN PT Service: ? Author [...] SPORTS THERAPY PHYSICAL THERAPY TREATMENT NOTE ASSESSMENT: Michael Velazquez tolerated the session with expected muscle [...] kitchen when she felt that something was "going to go". Pain: Pain Pain Level: 4 Pain Location: [...] multifidi Needle length: 50mm 2.0 in . Otis used 4, needles removed 4. Dry needling [...] Session Stop Time : 1129 Quoc Mccrack[facility]10-24-2024 History of Present illness Narrative* Quoc Mccracken, PT - 02/11/2024 10:44 AM EDT Episode Visit Count: 2 Therapist That Will Accept/Oversee The Plan Of Care: Quoc Mccracken PT Start of Care Date: 01/21/24 Onset Date: 06/29/22 Plan of Care Certification Date: 01/21/24 Next Certification Due Date: 02/25/24 Patient Identified by Name and Date of : Yes REHABILITATION AND SPORTS THERAPY PHYSICAL THERAPY TREATMENT NOTE ASSESSMENT: Michael Velazquez tolerated the session with expected muscle [...] kitchen when she felt that something was "going to go". Pain: Pain Pain Level: 4 Pain Location: [...] 1129 Quoc Mccracken PT documented in this encounterLake County [facility]10-22-2024 Telephone encounter Note * Telephone Encounter - Joslyn Dunne MA - 02/09/2024 8:58 AM EDT Detailed message left on pt identified VM. Joslyn Dunne MA [facility]10-22-2024 Miscellaneous Notes* Telephone Encounter - Joslyn Dunne MA - 02/09/2024 8:58 AM EDT Detailed message left on pt identified VM. Joslyn Dunne MA * Telephone Encounter - Aziza Thompson PA-C - 02/09/2024 8:51 AM EDT Labs are overall okay. Cholesterol has improved. Thyroid levels are normal. Metabolic panel normal. Thanks. Aziza Thompson PA-C documented in this encounterLake County [facility]10-22-2024 Telephone encounter Note * Telephone Encounter - Aziza Thompson PA-C - 02/09/2024 8:51 AM EDT Labs are overall okay. Cholesterol has improved. Thyroid levels are normal. Metabolic panel normal. Thanks. Aziza Thompson PA-C [facility]10-21-2024 NoteHNO ID: [id number] Author: AZIZA THOMPSON PA-C Service: ? Author Type: Physician Health Concierge Type: Progress Notes Filed: 02/08/2024 14:07 Note Text: Chief Complaint Patient presents with: 6 Month Exam HPI Michael Velazquez is a 68 year old female [...] series) due on 12/15/2031 (more content not included)...[facility]10-21-2024 History of Present illness Narrative* Aziza Thompson PA-C - 02/08/2024 1:18 PM EDT Chief Complaint Patient presents with: 6 Month Exam HPI Michael Velazquez is a 68 year old female [...] HIGH-DOSE) Aziza Thompson PA-C documented in this encounterLake County [facility]10-16-2024 Telephone encounter Note * Telephone Encounter - [...] Renee LPN February 03, 2024 2:00 PM [facility]10-16-2024 Miscellaneous Notes* Telephone Encounter - New Renee [...] 03, 2024 2:00 PM documented in this encounterLake County [facility]10-03-2024 History of Present illness Narrative* Quoc Mccracken, PT - 01/21/2024 2:56 PM EDT Program_ID:[id number] Access Code: [email or web address] URL: [email or web address] Date: 01-21-2024 Prepared By: Quoc Mccracken Program [...] 4 sets - 10 reps * Quoc Mccracken PT - 01/21/2024 1:59 PM EDT Images [...] PHYSICAL THERAPY EVALUATION PLAN OF CARE: Assessment: Michael Velazquez presents with chief complaint of LBP [...] Planned: 8 Planned Treatment Interventions: Therapeutic exercise (83313), Neuromuscular re- education (10068), Manual therapy (04332), Therapeutic activities (85804), Self- longterm management (42748), Patient/Family/Caregiver Education, Body Mechanics Training PLAN FOR NEXT VISIT: Hip strengthening. Possible DDN to lumbar spine. Patient demonstrates good understanding of plan of care and treatment. The above goals and plan of care were discussed and agreed upon by patient/family. SUBJECTIVE: LBP. Was in PT here 1 year ago. [place] she was doing better. But the past [...] 1502 Quoc Mccracken PT documented in this encounterLake County [facility]10-03-2024 NoteHNO ID: [id number] Author: QUOC MCCRACKEN PT Service: ? Author [...] PHYSICAL THERAPY EVALUATION PLAN OF CARE: Assessment: Michael Velazquez presents with chief complaint of LBP [...] Planned: 8 Planned Treatment Interventions: Therapeutic exercise (97233), Neuromuscular re-education (55850), Manual therapy (91094), Therapeutic activities (21400), Self-longterm management (50875), Patient/Family/Caregiver Education, Body Mechanics Training PLAN FOR NEXT VISIT: Hip strengthening. Possible DDN to lumbar spine. Patient demonstrates good understanding of plan of care and treatment. The above goals and plan of care were discussed and agreed upon by patient/family. SUBJECTIVE: LBP. Was in PT here 1 year ago. [place] she was doing better. But the past [...] Education Provided To: Sade (more content not included)...[facility]09-05-2024 NoteHNO ID: [id number] Author: ?, ?, ? Service: ? Author Type: ? Type: Progress Notes Filed: 12/24/2023 09:49 Note Text: POPULATION HEALTH NAVIGATION OUTREACH Action/[facility] Support: Called pt to schedule an appt in Pain Management. Lvm for pt to call [phone]. Reason for Outreach Care Gap/HCC or Scheduling Wellness Visits Care Gaps due: N/A Patient Contacted: Unable or unnecessary to reach patient: Left message [employer] message sent Navigation Signature: Iain Walker December 24, 2023 9:48 [facility]09-05-2024 History of Present illness Narrative* Iain Walker - 12/24/2023 9:48 AM EDT POPULATION HEALTH NAVIGATION OUTREACH Action/[facility] Support: Called pt to schedule an appt in Pain Management. Lvm for pt to call [phone]. Reason for Outreach Care Gap/HCC or Scheduling Wellness Visits Care Gaps due: N/A Patient Contacted: Unable or unnecessary to reach patient: Left message [employer] message sent Navigation Signature: Iain Walker December 24, 2023 9:48 AM documented in this encounterLake County [facility]09-05-2024 NotePatient Outreach (NETNAV) MICHAEL VELAZQUEZ ([id number]) 1955 F Date Time Provider Department 12/24/23 NO PCP NETNAV During your visit today, we recorded the following information about you: Iain Walker 12/24/2023 9:49 AM Signed POPULATION HEALTH NAVIGATION OUTREACH [facility] Support: Called pt to schedule an appt in Pain Management. Lvm for pt to call [phone]. Reason for Outreach Care Gap/HCC or Scheduling Wellness Visits Care Gaps due: N/A Patient Contacted: Unable or unnecessary to reach patient: Left message Needle HR[employer] message sent Navigation Signature: Iain Walker December [...] 11/01/2021 Elevated blood sugar [R73.9] 11/19/2021 Positive FELICIA (antinuclear antibody) [R76.8] 11/21/2021 Left upper extremity [...] myelopathy*12/23/2023 Encounter Status:Closed by IAIN WALKER on 12/24/23[facility]09-04-[facility]24 Telephone encounter Note* Telephone Encounter - Remy Perez MD - 12/23/2023 7:44 PM EDT The following approved medication requests have been transmitted electronically. Requested Prescriptions Signed Prescriptions Disp Refills gabapentin (NEURONTIN) 300 mg capsule 180 capsule 1 Sig: Take 1 capsule by mouth two times a day for 180 days. Authorizing Provider: REMY PEREZ MD [facility]09-04-2024 Miscellaneous Notes* Telephone Encounter - Remy Perez [...] 23, 2023 4:50 PM documented in this encounterLake County [facility]09-04-2024 Telephone encounter Note * Telephone Encounter - [...] Messina LPN December 23, 2023 4:50 PM [facility]09-04-2024 Telephone encounter Note* Telephone Encounter - Remy ePrez MD - 12/23/2023 4:42 PM EDT Consult orders placed for pain management and PHYSICAL THERAPY. [facility]09-04-2024 Miscellaneous Notes* Telephone Encounter - Remy Perez MD - 12/23/2023 4:42 PM EDT Consult orders placed for pain management and PHYSICAL THERAPY. documented in this encounterLake County [facility]09-03-2024 Telephone encounter Note * Telephone Encounter - New Renee LPN - 12/22/2023 7:07 AM EDT Sent pt result note via pt's request through My Chart. See My Chart Message. New Renee LPN [facility]09-03-2024 Miscellaneous Notes* Telephone Encounter - New Renee [...] willing. Aziza Thompson PA-C documented in this encounterLake County [facility]08-29-2024 Telephone encounter Note * Telephone Encounter - New Renee LPN - 12/17/2023 11:43 AM EDT Left message for pt to contact office. New Renee LPN [facility]08-29-2024 Telephone encounter Note* Telephone Encounter - Aziza Thompson PA-C - 12/17/2023 10:43 AM EDT Let patient know that her mri of spine was overall normal. Mild arthritic changes. I'd recommend having her do dedicated Physical Therapy for her back if she is willing. Aziza Thompson PA-C [facility]08-29-2024 History of Present illness Narrative* Cris Damon RT(R) - 12/17/2023 8:40 AM EDT Radiology Service Progress Note PATIENT NAME: Michael Velazquez DATE OF SERVICE: December 17, 2023 [...] PATIENT PRESENTS WITH AN IMPLANTABLE OR ATTACHED SANITOR: No RADIOLOGY DEPARTMENT: MR; Exam(s) Completed: Spine: Lumbar spine PERIPHERAL IV DATA: Not applicable SIGNED BY: RT David(Rea) December 17, 2023 8:43 AM documented in this encounterLake County Memorial [facility]08-29-2024 NoteHNO ID: [id number] Author: CRIS DAMON RT(R) Service: ? Author Type: Technologist Type: Progress Notes Filed: 12/17/2023 08:44 Note Text: Radiology Service Progress Note PATIENT NAME: Michael Velazquez DATE OF SERVICE: December 17, 2023 [...] PATIENT PRESENTS WITH AN IMPLANTABLE OR ATTACHED SANITOR: No RADIOLOGY DEPARTMENT: MR; Exam(s) Completed: Spine: Lumbar spine PERIPHERAL IV DATA: Not applicable SIGNED BY: RT David(R) December 17, 2023 8:43 [facility]08-01-2024 NoteHNO ID: [id number] Author: AZIZA THOMPSON PA-C Service: ? Author Type: Physician Health Concierge Type: Progress Notes Filed: 11/19/2023 15:39 Note Text: Chief Complaint Patient presents with: Back Pain: On going has been getting worse HPI Michael Velazquez is a 67 year old female [...] orders - MRI SAM (more content not included)...[facility]08-01-2024 History of Present illness Narrative* Aziza Thompson PA-C - 11/19/2023 3:18 PM EDT Chief Complaint Patient presents with: Back Pain: On going has been getting worse HPI Michael Velazquez is a 67 year old female [...] Screening due on 05/20/2024 Covid-19 Vaccine( - 2022- season) due on 07/22/2024 Influenza [...] IVCON Aziza Thompson PA-C documented in this encounterL[facility] Telephone encounter Note * Telephone Encounter - [...] Dunne MA November 12, 2023 8:50 AM [facility]07[facility] Miscellaneous Notes* Telephone Encounter - Joslyn Dunne [...] 12, 2023 8:50 AM documented in this encounterLake County [facility]07-25-2024 Telephone encounter Note * Telephone Encounter - [...] Dunne MA November 12, 2023 8:47 AM [facility]07-25-2024 Miscellaneous Notes* Telephone Encounter - Joslyn Dunne [...] 12, 2023 8:47 AM documented in this encounterLake [facility]05-08-2024 History of Present illness Narrative* Aziza Thompson PA-C - 08/26/2023 1:14 PM EDT DISTANCE HEALTH VISIT MyChart Zoom Video Visit was used for evaluation of this patient. Patient consents to visit. Patient's location: [place] I have communicated my name and active licensure. The patient's identity and physical location wereverified at the time of this visit. Either the patient or their legal manufacturing sales representative has been informed of the risks and benefits of -- and alternatives to -- treatment through a remote evaluation andconsents to proceed with the evaluation remotely. Chief Complaint No chief complaint on file. HPI Michael Velazquez is a 67 year old female [...] - 1-dose 60+ series) Never done Covid-19 Vaccine( - season) due on 07/22/2024 Mammogram Screening due [...] years. Aziza Thompson PA-C documented in this encounterLake [facility]04-30-2024 Telephone encounter Note * Telephone Encounter - Aniyah Washburn LPN - 08/18/2023 8:54 AM EDT Pt was given options & states she is not sure she wants to start medication just yet, she wouldlike to discuss with provider. VV scheduled for 08/26/23 to discuss per pt's request. Aniyah Washburn LPN [facility]04-30-2024 Miscellaneous Notes* Telephone Encounter - Aniyah Washburn [...] questions. Aziza Thompson PA-C documented in this encounterLake County [facility]04-29-2024 Telephone encounter Note * Telephone Encounter - [...] prefers or has questions. Aziza Thompson PA-C [facility]04-26-[facility]24 History of Present illness Narrative* Nura Rodriguez, RT(R) - 08/14/2023 2:15 PM EDT Radiology Service Progress Note PATIENT NAME: Michael Velazquez DATE OF SERVICE: August 14, 2023 [...] PATIENT PRESENTS WITH AN IMPLANTABLE OR ATTACHED SANITOR: No RADIOLOGY DEPARTMENT: Bone Density PERIPHERAL IV DATA: Not applicable SIGNED BY: RT Jewell(R) August 14, 2023 2:02 PM documented in this encounterLake County [facility]04-19-2024 Miscellaneous Notes* Telephone Encounter - Aniyah Washburn LPN - 08/07/2023 8:43 AM EDT Pt requested a refill for pravastatin however she has a prescription at [facility]. Pt notified via [employer]. Aniyah Washburn LPN documented in this encounterLake County [facility]04-19-2024 Miscellaneous Notes* Telephone Encounter - Kelly Coley [...] to pharmacy. No need to notify patient. PENNY 07/23/23 Medicare wellness Scheduled 01/28/24 Kelly Coley LPN documented in this encounterLake County [facility]04-16-2024 Miscellaneous Notes* Telephone Encounter - Aniyah Washburn LPN - 08/04/2023 8:54 AM EDT Results left on pt's voice mail that identifies her by her full name. Aniyah Washburn LPN * Telephone Encounter - Aziza Thompson PA-C - 08/04/2023 8:09 AM EDT Labs are all normal. Repeat kidney function is much better. Aziza Thompson PA-C documented in this encounterLake County [facility]04-08-2024 Miscellaneous Notes* Telephone Encounter - Louise Red [...] weeks. Hydrate well prior. documented in this encounterLake County [facility]04-08-2024 Miscellaneous Notes* Telephone Encounter - Leeann Wakefield MA - 07/27/2023 10:57 AM EDT Please review pt message and advise. Leeann Wakefield MA documented in this encounterLake County Memorial [facility]04-04-2024 Instructions* Patient Instructions* Aziza Thompson PA-C - 07/23/2023 1:03 PM EDT [place] [facility] - Insurance Therapy/Counseling [facility] [address] [place] [address] [facility] [address] [place] [address] [facility] [address] [address] [facility] [address] [place] [address] [facility] [address] [place] [address] [facility] [address] [place] [address] [employer] [address] [facility] [place] [address] [facility] [address] [place] [address] WHAT YOU CAN DO TO PREVENT FALLS [...] review all the medicines you take, even zakc-tga-erjdtue medicines. As you get older, the way [...] your usual activities immediately. documented in this encounterLake County [facility]04-04-2024 History of Present illness Narrative* Aziza Thompson PA-C - 07/23/2023 1:02 PM EDT Images from the original note were not included. Michael Velazquez is a 67 year old female [...] 98.2 (Left Tympanic) Resp 16 Ht 5' 2.795" (1.60m) Wt 118 lb(53.5kg) SpO2 97% BMI 21.04 kg/(m^2). Vision Screening: Follows with optometry/ophthalmology Assessment/Plan Medicare annual wellness visit, subsequent (Z00.00) - Counseled on healthy diet and regular exercise - Fall avoidance information provided - Personalized prevention plan provided Chief Complaint Patient presents with: Medicare Wellness Exam HPI Michael Velazquez is a 67 year old female [...] Tympanic) Resp 16 Ht 159.5 cm (5' 2.8") Wt 53.5 kg (118 lb) SpO2 97% [...] bone density scan - DXA-AXIAL SKELETON - DXA TRABECULAR BONE SCORE (TBS) 9. RLS [...] which included preparing to see the patient, debz-za-rsyu patient care, completing clinical documentation, obtaining and/or reviewing separately obtained history, performing a medically appropriate examination, and ordering medications, tests, or procedures. documented in this encounterLake County [facility]03-15-2024 History of Present illness Narrative* Remy Perez MD - 07/03/2023 10:44 AM EDT Chief Complaint Patient presents with: Follow Up HPI Michael Velazquez is a 67 year old female who presents here today for follow up on sinus. [facility] 06[facility]24/2023 and diagnosed with sinobronchitis. Was placed on cefadroxil 500 mg twice a day for 7 days and prednisone. Patient is feeling better. She was seen [facility] on 04/08/2023 and placed on a z-pack. [...] routine Remy Perez MD documented in this encounterLake County [facility]03-11-2024 Miscellaneous Notes* Telephone Encounter - New Renee [...] you. New Renee LPN. documented in this encounterLake County [facility]03-06-2024 Miscellaneous Notes* Telephone Encounter - Remy Perez [...] you. Yinka Messina LPN. documented in this encounterLake County [facility]03-06-2024 History of Present illness Narrative* Manuel Simpson APRN.PATIENT ACCOUNTS COORDINATOR - 06/24/2023 2:30 PM EST Subjective HPI HPI Michael Velazquez is a 67 year old female [...] TABLET - CEFADROXIL 500 MG CAPSULE Manuel Simpson APRN.PATIENT ACCOUNTS COORDINATOR documented in this encounterLake County Memorial Hospital [facility] West02-22-2024 Instructions* Patient Instructions* Dedra Mcnally APRN.CNP - 06/11/2023 1:48 PM EST Start doxycycline, take with food. Continue supportive care at home. May use fzzq-kwx-zrtupvc cold and cough medications as needed. May ask the pharmacist for high-doseSudafed if needed for nasal congestion. Stay well-hydrated. Follow-up if no improvement. documented in this encounterLake County [facility]02-22-2024 History of Present illness Narrative* Dedra Mcnally [...] agrees to the visit: Yes Patient Location: [place] I have communicated my name and active licensure. The patient's identity and physical location wereverified at the time of this visit. Either the patient or their legal manufacturing sales representative has been informed of the risks and benefits of -- and alternatives to -- treatment through a remote evaluation andconsents to proceed with the evaluation remotely. HPI Michael Velazquez is a 67 year old female who is contacted today for a virtual visit This is an established patient of Dr. Remy Perez MD Reports: Patient of Dr. Perez. Currently out of State in [place] taking care of her father.Refers she started [...] done Bone Density Screening Never done Covid-19 Vaccine(2022-24 season) due on 12/19/2022 Advance Directive Discussion [...] rest, and analgesia prn. - May use vjau-koy-nrhodmg cold and cough medications as needed for symptom management. - DOXYCYCLINE HYCLATE 100 MG TABLET Follow-up if no improvement. Discussed treatment plan and patient voices understanding. Patient's questions answered appropriately. Medications and potential side effects were discussed and patient voices understanding. Dedra Mcnally APRN.CNP Total appointment time on virtual with patient = 21-30 minutes This note was partially generated using SetuServ voice recognition system. Note was reviewed for accuracy. There may be minor misspellings or grammar miscues with SetuServ voice recognition. documented in this encounterLake County Memorial Hospital [facility]02-01-2024 Miscellaneous Notes* Letter - Coordinator, Mammography - 05/21/2023 3:04 PM EST May 22, 2023 PID: [id number] Michael Caroline [address] [place] [address] Dear Ms. Velazquez, We are pleased to [...] report will be [facility] as part of your permanent medical record and are available for your continuing care. Thank you for allowing us to help in meeting your health care needs. Sincerely, Dr. Patterson Interpreting Radiologist [facility] (Normal over 40) documented in this encounterLake County Memorial Hospital [facility] West12-31-2023 Instructions* Patient Instructions* Sherlyn Frazier APRN.PATIENT ACCOUNTS COORDINATOR - 04/19/2023 3:15 PM EST [facility] [...] sprays and irrigation kits can be purchased yauv-cyi-gmmfffm. Saline mixes can also be purchased or [...] upon your individual situation. documented in this encounterLake County Memorial Hospital [facility] West12-31-2023 History of Present illness Narrative* Sherlyn Frazier APRN.CNP - 04/19/2023 3:02 PM EST Telemedicine Visit - Distance Health Virtual Visit Note Patient seen on [employer] Video Visit platform. Location of patient: [place] I have communicated my name and active licensure. The patient's identity and physical location wereverified at the time of this visit. Either the patient or their legal manufacturing sales representative has been informed of the risks and benefits of -- and alternatives to -- treatment through a remote evaluation andconsents to proceed with the evaluation remotely. History of Present Illness Michael Velazquez is a 67 year old year [...] answered Sherlyn Frazier APRN.CNP documented in this encounterLake County Memorial [facility]12-20-2023 History of Present illness Narrative* Jennifer Pa RT(R) - 04/08/2023 11:10 AM EST Radiology Service Progress Note PATIENT NAME: Michael Velazquez DATE OF SERVICE: April 08, 2023 [...] DATA: Not applicable SIGNED BY: RT Destin(R) April 08, 2023 11:28 AM documented in this encounterLake County [facility]12-20-2023 History of Present illness Narrative* Sophia Jin APRN.CNP - 04/08/2023 11:09 AM EST Subjective HPI Michael presents today with 4 days hx of [...] A/B & RSV NAAT, ROUTINE Sophia Jin APRN.PATIENT ACCOUNTS COORDINATOR documented in this encounterLake County Memorial Hospital [facility] West10-27-2023 Miscellaneous Notes* Telephone Encounter - Taya Bryant [...] mouth once daily. Take one tablet daily PENNY:12/24/22 NOV:07/02/23 RX INSTRUCTIONS: Patient aware RX will be sent to pharmacy. No need to notify patient. Taya Bryant documented in this encounterLake County Memorial [facility]10-25-2023 History of Present illness Narrative* Jennifer Pa RT(R) - 02/11/2023 1:50 PM EDT Radiology Service Progress Note PATIENT NAME: Michael Velazquez DATE OF SERVICE: February 11, 2023 [...] 11, 2023 1:47 PM documented in this encounterLake County Memorial Hospital [facility] West10-25-2023 History of Present illness Narrative* Keely Doll APRN.PATIENT ACCOUNTS COORDINATOR - 02/11/2023 1:32 PM EDT This note was created using NoteWriter. Subjective Michael Velazquez is a 67 year old female. 67 year old female with PMH insomnia, RLS, HTN, hyperlipidemia, hypothyroid presents for multiple complaints of pain. Neck Pain X 1 month Has been seen for same Had PT via [facility] States that over the past week the pain has increased. Denies known trauma or injury Of note she was in [place] for the past week. States that she was visiting family and lifting a 2 year old and 2 month old History of disc fusion. Knee Pain Bilateral Right greater than left Catching and stabbing Denies knee surgeries States she had a lot of walking in [place] Dancing @ wedding Up and down stairs Playing with grandchildren Denies fever or chills Denies skin rash or lesions. Denies CP. Denies SOB. Denies dyspnea The history is provided by the patient. No mushroom grower was used. Left knee injury: No Right [...] Laterality Date COLONOSCOPY 01/22/2023 CYST/MOLE REMOVAL Left 1978 benign cyst- Left [...] flags RX Prednisone RX Flexeril Keely Doll APRN.PATIENT ACCOUNTS COORDINATOR documented in this encounterLake County Memorial Hospital [facility] West10-12-2023 Instructions* Patient Instructions* Louise Newton PA-C - [...] your office visit today with the [facility] General Surgeons. INSTRUCTIONS FOLLOWING A [...] you should contact our office immediately @ [phone] and ask to be transferred to the General Surgery department. documented in this encounterLake County Memorial Hospital [facility] West10-12-2023 History of Present illness Narrative* Louise Newton PA-C - 01/29/2023 2:33 PM EDT FOLLOW UP VISIT - ENDOSCOPY NAME: Michael [facility] NO.: [id number] DATE OF SERVICE: 01/29/2023 : 1955 REFERRING PHYSICIAN: Remy Perez MD Michael is a patient I am following for [...] several years, per patient seems to be "getting worse with getting older." Has been trying to watch diet as [...] which included preparing to see the patient, dtvx-aj-yodv patient care, completing clinical documentation, obtaining and/or reviewing separately obtained history, counseling and educating the patient/family/caregiver, independently interpretin g results (not separately reported), and communicating results to the patient/family/caregiver. Louise Newton PA-C documented in this encounterLake County Memorial Hospital [facility]10-05-2023 Nurse Note* Linda Cox RN - 01/22/2023 1:30 PM EDT Patient arrived laying on left side. Patient does not appear to be in any pain at this time. Abdomen appears to be nondistended and soft to palpation. Patient encouraged to belch and pass gas as needed. documented in this encounterLake County Memorial Hospital [facility] West10-05-2023 History and physical note * Hugh Cole MD - 01/22/2023 1:15 PM EDT Michael Velazquez is a 67 year old female [...] SIGNATURE: Hugh Cole III, MD PATIENT NAME: Michael Velazquez DATE: January 22, 2023 TIME: 12:51 PM documented in this encounterLake County Memorial Hospital [facility] West09-28-2023 History of Present illness Narrative* Quoc Mccracken, [...] OF CARE PLAN OF CARE UPDATE: Assessment: Michael Velazquez is discontinued from Physical Therapy services due to Patient/Clinicianmutual decision to discontinue current plan of care.. Patient was seen for 8 visits from Start of Care Date: 08/29/22 to 01/15/2023 and treatment included: Therapeutic exercise, Self-longterm management, and Patient/Family/Caregiver Education. Goals updated 01/15/2023 [...] Time (minutes): 44 Session Start Time : 1458 Session Stop Time : 1542 Quoc Mccracken PT documented in this encounterLake County Memorial Hospital [facility] West09-11-2023 Miscellaneous Notes* Telephone Encounter - Clarissa Feliciano LPN - 12/29/2022 11:05 AM EDT Patient was rescheduled multiple times, please resend script Pended, Thank you. Clarissa Feliciano LPN documented in this encounterLake County Memorial Hospital [facility]09-08-2023 Miscellaneous Notes* Telephone Encounter - Aziza Thompson [...] 12/26/2022 7:41 AM EDT Received fax from [facility] stating there are tow [...] rx. New Renee LPN documented in this encounterLake County Memorial Hospital [facility]09-07-2023 Miscellaneous Notes* Telephone Encounter - Cayla Ni [...] Thanks. Aziza Thompson PA-C documented in this encounterLake County Memorial Hospital [facility] West09-06-2023 History of Present illness Narrative* Aziza Thompson PA-C - 12/24/2022 12:20 PM EDT Chief Complaint Patient presents with: Recheck HPI Michael Velazquez is a 67 year old female [...] prn. Aziza Thompson PA-C documented in this encounterLake County Memorial Hospital - West08-29-2023 History of Present illness Narrative* Nawaf Quoc, PT - 12/16/2022 2:53 PM EDT Episode Visit Count: 6 Therapist That Will Accept/Oversee The Plan Of Care: Quoc Mccracken Start of Care Date: 08/29/22 Onset Date: 06/29/22 Plan of Care Certification Date: 12/11/22 Next Certification Due Date: 01/22/23 Patient Identified by Name and Date of : Yes REHABILITATION AND SPORTS THERAPY PHYSICAL THERAPY TREATMENT NOTE ASSESSMENT: Michael Velazquez tolerated the session with fatigue and [...] and assessment of patient's response to intervention. Self-Residential Management: 1: *Education on use of lumbar [...] 1530 TAIWO Truong PT documented in this encounterLake County Memorial Hospital [facility] West08-24-2023 History of Present illness Narrative* Quoc Mccracken [...] PROGRESS REPORT PLAN OF CARE UPDATE: Assessment: Michael Velazquez demonstrates difficulty with prolonged sitting, vacuuming [...] Patient to be seen for Therapeutic exercise (55120), Neuromuscular re-education (44306), Manual therapy (51117), Therapeutic activities (78377), Self-longterm management (25215), Patient/Family/Caregiver Education, Body Mechanics Training PLAN FOR [...] FUNCTION: Lumbar Spine AROM Lumbar Flexion: Normal ("Feels stiff") Lumbar Extension: Normal Lumbar R Side-Bend: Minimal [...] 1454 Quoc Mccracken PT documented in this encounterLake County Memorial Hospital [facility] West08-11-2023 Miscellaneous Notes* Telephone Encounter - Remy Perez [...] refill 06/30/22 Qty: 90 with 1 refill PENNY 08/18/22 NOV 12/24/22 New Renee LPN documented in this encounterLake County Memorial Hospital [facility] West06-27-2023 History of Present illness Narrative* Quoc Mccracken [...] SPORTS THERAPY PHYSICAL THERAPY TREATMENT NOTE ASSESSMENT: Michael Velazquez tolerated the session with no issues. [...] 43 Quoc Mccracken PT documented in this encounterLake County Memorial Hospital - West06-06-2023 History of Present illness Narrative* Quoc Mccracken [...] SPORTS THERAPY PHYSICAL THERAPY TREATMENT NOTE ASSESSMENT: Michael Velazquez tolerated the session with decreased symptoms [...] 45 TAIWO Truong PT documented in this encounterLake County Memorial Hospital [facility]05-12-2023 History of Present illness Narrative* Quoc Mccracken, PT - 08/29/2022 1:42 PM EDT Episode Visit Count: 1 Therapist That Will Accept/Oversee The Plan Of Care: Quoc Mccracken Start of Care Date: 08/29/22 Onset Date: 06/29/22 Plan of Care Certification Date: 08/29/22 Next Certification Due Date: 10/03/22 Patient Identified by Name and Date of : Yes REHABILITATION AND SPORTS THERAPY PHYSICAL THERAPY EVALUATION PLAN OF CARE: Assessment: Michael Velazquez presents with chief complaint of LBP [...] Planned: 4 Planned Treatment Interventions: Therapeutic exercise (19178), Neuromuscular re- education (62700), Manual therapy (34614), Therapeutic activities (70908), Self- longterm management (02960), Patient/Family/Caregiver Education, Body Mechanics Training PLAN FOR NEXT VISIT: STM over R glute max and med. Gluteal loading as tolerated. Patient demonstrates good understanding of plan of care and treatment. The above goals and plan of care were discussed and agreed upon by patient/family. SUBJECTIVE: Michael Velazquez is a 66 year old female [...] Total Treatment Time Minutes (timed/untimed): 48 Quoc Mccracken, PT documented in this encounterLake County Memorial Hospital [facility]05-01-2023 Instructions* Patient Instructions* Rupinder Goss APRN.CNP - 08/18/2022 1:44 PM EDT Schedule with PT Follow up with Aziza as scheduled. documented in this encounterLake County [facility]05-01-2023 History of Present illness Narrative* Rupinder Goss APRN.CNP - 08/18/2022 1:33 PM EDT Chief Complaint Patient presents with: Follow Up HPI Michael Velazquez is a 66 year old female [...] PT Rupinder Goss APRN.CNP documented in this encounterLake County [facility]03-30-2023 Miscellaneous Notes* Telephone Encounter - Anabelle Gomes Cma - 07/17/2022 12:01 PM EDT Patient active on mychart- message sent Anabelle Gomes Cma * Telephone Encounter - Rupinder Goss APRN.CNP - 07/17/2022 11:19 AM EDT Please let patient know her lumbar xray shows degenerative changes. There are no fractures or acutefindings noted. documented in this encounterLake County Memorial [facility]03-27-2023 Miscellaneous Notes* Telephone Encounter - RANJANA Miramontes - 07/14/2022 2:54 PM EDT Behavioral Health Social Work Progress Note Patient identified for [facility] from: PCP Reason for referral: Resources Behavioral Health Resources: Psychology - talk therapy [facility] encounter type: Telephone Encounter, [employer] Message Attempts to Outreach: 1 attempt Referral made: Psychology - External, Psychology - Internal Psychology-Internal referral type: Therapy Psychology-External referral type: Therapy Reason for external referral: Wait times at [facility] too long Final Disposition: Resources given Patient Discharged?: Yes Patient reported that caregiver was able to meet their needs today?: Yes [facility] placed telephone call at the request of the PCP to discuss behavioral health needs and providereferrals for outpatient support. Patient looking for counseling resources due to anxiety. Will send the following to her Needle HRhart for review: [facility] [address] [place] [address] [facility] [address] [place] [address] *counseling and psychiatry [place] [phone] [id number] [place] [address], [address] [facility] [address] [place] [address], [address] [place] [phone] [facility] [address] [place] [address] RANJANA Miramontes, ACM-SW July 14, 2022 documented in this encounterLake County Memorial [facility]03-27-2023 History of Present illness Narrative* Mari Alicea, RT(R) - 07/14/2022 2:50 PM EDT Radiology Service Progress Note PATIENT NAME: Michael Velazquez DATE OF SERVICE: July 14, 2022 TIME: [...] 14, 2022 2:59 PM documented in this encounterLake County Memorial Hospital [facility]03-27-2023 Instructions* Patient Instructions* Rupinder Goss APRN.CNP - 07/14/2022 2:29 PM EDT Start buspar Complete lumbar xr Start toradol Follow up in 4 weeks documented in this encounterLake County Memorial Hospital [facility]03-27-2023 History of Present illness Narrative* Rupinder Goss APRN.CNP - 07/14/2022 2:07 PM EDT Chief Complaint Patient presents with: Follow Up HPI Michael Velazquez is a 66 year old female [...] - BUSPIRONE 5 MG TABLET Rupinder Goss APRN.PATIENT ACCOUNTS COORDINATOR documented in this encounterLake County Memorial Hospital [facility]03-20-2023 History of Present illness Narrative* Villa Montoya MD - 07/07/2022 1:12 PM EDT Villa Montoya MD Department of Orthopaedics Orthopaedics [address] [facility] [address] Dept: [phone] Dept July 07, 2022 CHIEF COMPLAINT: Dislocation, [...] with: Right Shoulder - Dislocation, New, Pain Missy Herman LPN ASSESSMENT: M70.62 Trochanteric bursitis of left hip [...] hip. FOLLOW UP INSTRUCTIONS: As needed Ms. Michael Velazquez was advised as to contrast therapies and/or to take analgesics/anti-inflammatories as needed and all contraindications were reviewed. OBJECTIVE: Ms. Michael Velazquez is a pleasant 66 year old [...] the acromioclavicular joint, with mild degenerative changes. Tank Tender: SAM Transcribe Date/Time: Jul 03 2022 8:36A Dictated by : OTYA DEL VALLE MD This examination was interpreted [...] physician via US mail. Rupinder Goss [address] [phone] Remy Perez MD [address] [phone] Vlila Montoya MD documented in this encounterL[facility] Miscellaneous Notes* Telephone Encounter - Leeann Wakefield Ma - 07/04/2022 11:30 AM EDT Patient seen by Rupinder Goss on 07/01/22 for ED follow up. Routed to her to review and advise. Leeann Wakefield Ma documented in this encounterLake County [facility]03-16-2023 Miscellaneous Notes* Telephone Encounter - Anabelle Gomes [...] up with orthopedics simba. documented in this encounterLake County [facility]03-15-2023 History of Present illness Narrative* Angi Mcguire [...] Medicine Angi Mcguire MA documented in this encounterLake County [facility]03-14-2023 Instructions* Patient Instructions* Rupinder Goss APRN.CNP - 07/01/2022 3:42 PM EDT Continue current medications and treatments Follow up if no improvement or worsening symptoms documented in this encounterLake County [facility]03-14-2023 History of Present illness Narrative* Rupinder Goss APRN.CNP - 07/01/2022 3:16 PM EDT Chief Complaint Patient presents with: ER F/U HPI Michael Velazquez is a 66 year old female who presents here today for Above Complaints.. Patient presents for ER follow up. Patient fell down the steps 06/29/2022 and was seen at [facility]. All xray and CT imaging negative [...] RIGHT Rupinder Goss APRN.TRACY documented in this encounterLake County [facility]03-14-2023 Miscellaneous Notes* Telephone Encounter - Leeann Wakefield Ma - 07/01/2022 10:11 AM EDT Mychart message sent to pt notifying her of Providers response. Wait pt response if wanting to schedule. Leeann Wakefield Ma * Telephone Encounter - Aziza Thompson PA-C - 07/01/2022 9:59 AM EDT Would need a ER follow up for us to address. [facility] has plenty of availability today * Telephone Encounter - Leeann Wakefield Ma - 07/01/2022 9:04 AM EDT See pt message. Pt given Percocet 5-325 mg #12 on 06/29/22. No OV scheduled for a hospital f/u. Leeann Wakefield Ma documented in this encounterLake County [facility]03-14-2023 Miscellaneous Notes* Telephone Encounter - Aniyah Washburn LPN - 07/01/2022 7:16 AM EDT Patient requests via MyChart refills as follows: Requested Prescriptions Pending Prescriptions Disp Refills gabapentin (NEURONTIN) 300 mg capsule 90 capsule 1 Sig: Take 1 capsule by mouth once daily for 180 days. Take one tablet daily PENNY: 06/19/22 NOV: 12/24/22 Last Refill: 01/02/22 #90 1 refill Aniyah Washburn LPN documented in this encounterLake County [facility]03-12-2023 Hospital Discharge instructions Additional Instructions Please follow-up with your PCP in 3 to 5 days. Rest, ice the area several times a day for the next few days. Return for any worsening of symptoms.[facility] Work Phone: [phone]) 520-486103-09-2023 Nurse Note* Leonela Enriquez LPN - 06/26/2022 11:22 AM EST REVIEW OF [...] 2004? Leonela Enriquez LPN documented in this encounterLake County [facility]03-09-2023 History of Present illness Narrative* Louise Newton PA-C - 06/26/2022 10:47 AM EST HISTORY AND PHYSICAL Michael Caroline 1955 REFERRING PHYSICIAN: Aziza Thompson PA-C CHIEF COMPLAINT: No chief complaint on file. HPI: The patient is a 66 year old female referred for endoscopy. Michael notes no new colon complaints. Patient denies any change in bowel habits, weight changes, blood in stools, black tarry stools orabdominal pain. Denies family history of colon issues. The patient notes no upper GI complaints. Michael has undergone prior endoscopy-unsure of exact date [...] entered by the nurse and reviewed by me Nursing Notes: Leonela Enriquez ASHOK 06/26/2022 11:28 AM Signed REVIEW OF SYSTEMS: [...] resp. rate 14, height 157.5 cm (5' 2"), weight 56.7 kg (125 lb), SpO2 97 [...] patient was offered a [facility]. I have counseled the patient regarding [...] mail. Louise Newton PA-C documented in this encounterLake County [facility]03-06-2023 Miscellaneous Notes* Telephone Encounter - Remy Perez MD - 06/23/2022 11:10 AM EST The following approved medication requests have been transmitted electronically. Requested Prescriptions Signed Prescriptions Disp Refills cefADROxil (DURICEF) 500 mg capsule 20 capsule 0 Sig: Take 1 capsule by mouth twice daily. Remy Perez MD documented in this encounterLake County [facility]03-03-2023 Miscellaneous Notes* Telephone Encounter - Aziza Thompson PA-C - 06/20/2022 1:28 PM EST At time of this message, Compass-EOS is not allowing me to respond directly to patient by Corefinot message.It states "another user is replying to patient. Try again later" however I can't tell who's in the [...] hydrated.. Aziza Thompson PA-C documented in this encounterLake County [facility]03-02-2023 History of Present illness Narrative* Jennifer Pa RT(R) - 06/19/2022 1:20 PM EST Radiology Service Progress Note PATIENT NAME: Michael Velazquez DATE OF SERVICE: June 19, 2022 [...] 19, 2022 12:59 PM documented in this encounterLake County [facility]03-02-2023 Instructions* Patient Instructions* Aziza Thompson PA-C - 06/19/2022 12:19 PM EST Please schedule your bone density scan. Advise Derm Consult- let us know if you need a referral sent anywhere. documented in this encounterLake County [facility]03-02-2023 History of Present illness Narrative* Aziza Thompson PA-C - 06/19/2022 12:05 PM EST Medicare Yearly Visit Medical B eligibilty date 11/18/21 Date of last exam n/a PAST MEDICAL [...] of beer per week Drug use: Never Michael gets sporadic irregular exercise. She watches her diet for sodium, low fat and low cholesterol most of the time. List of current specialists seen: Podiatry. End of Live Planning discussed including patients advanced directive wishes: Yes I am willing to follow Michael's advanced directives. Depression Screening 11/21/2021 03/28/2022 06/19/2022 [...] 75 Resp 16 Ht 160 cm (5' 2.99") Wt 55.3 kg (122 lb) SpO2 98% BMI 21.62 kg/m Alert and oriented X 3: YES Body mass index is 21.62 kg/m . Visual acuity: sees Ophthalmology ASSESSMENT/PLAN: 66 year old female The following prevention plan was discussed during the office visit and provided to the patient: See below. Aziza Thompson PA-C Chief Complaint Patient presents with: Yearly Exam HPI Michael Velazquez is a 66 year old female [...] 75 Resp 16 Ht 160 cm (5' 2.99") Wt 55.3 kg (122 lb) SpO2 98% [...] V72.31, ICD10: Z01.419 - set up with ticket collector - CONSULT TO GYNECOLOGY Aziza Thompson PA-C documented in this encounterLake County [facility]02-20-2023 Miscellaneous Notes* Telephone Encounter - Vi Olson LPN - 06/09/2022 11:45 AM EST Pt notified of results and provider message. Vi Olson LPN * Telephone Encounter - Aziza Thompson PA-C - 06/09/2022 8:01 AM EST Let patient know that her CT was okay. Suspect the finding on xray was artifact from overlapping bowel gas. Aziza Thompson PA-C documented in this encounterLake County [facility]02-16-2023 History of Present illness Narrative* Reef Leonela Briones, RT(R) - 06/05/2022 9:20 AM EST Radiology Service Progress Note PATIENT NAME: Michael Velazquez DATE OF SERVICE: June 05, 2022 [...] 05, 2022 10:27 AM documented in this encounterLake County [facility]02-01-2023 History of Present illness Narrative* Jeyson Norman PT - 05/21/2022 12:57 PM EST Episode Visit Count: 1 Therapist That Will Accept/Oversee The Plan Of Care: Jeyson Norman Start of Care Date: 05/21/22 Onset Date: 05/14/22 Plan of Care Certification Date: 05/21/22 Next Certification Due Date: 08/18/22 Patient Identified by Name and Date of : Yes REHABILITATION AND SPORTS THERAPY PHYSICAL THERAPY EVALUATION PLAN OF CARE: Assessment: Michael Velazquez presents with chief complaint of LBP [...] of Care: created on 05/21/22 through 07/19/22 Lee[place] in home exercise program. Patient will decrease [...] Planned: 8 Planned Treatment Interventions: Therapeutic exercise (98485), Neuromuscular re- education (39777), Manual therapy (67759), Therapeutic activities (55882), Self- longterm management (90124), Patient/Family/Caregiver Education, Body Mechanics Training PLAN FOR NEXT VISIT: Continue flexion bias for pain relief, neutral spine strengthening. May also perform traction if needed for symptom management Patient demonstrates good understanding of plan of care and treatment. The above goals and plan of care were discussed and agreed upon by patient/family. SUBJECTIVE: Michael Velazquez is a 66 year old female [...] Mechanics TREATMENT: PT Treatment Interventions: Therapeutic Exercise, Self-Residential Management Evaluation Therapeutic Exercise: 1: *SKC 3x30 [...] facilitated with verbal, visual, and tactile cuing. Self-Residential Management: 1: Reviewed imaging and discussed rehab [...] 56 Jeyson Norman PT documented in this encounterLake County [facility]01-30-2023 Miscellaneous Notes* Telephone Encounter - Aziza Thompson [...] to better view this. documented in this encounterLake County [facility]01-27-2023 History of Present illness Narrative* Aniyah Washburn [...] Lower back pain X 1 wk HPI Michael Velazquez is a 66 year old female [...] THERAPY Aziza Thompson PA-C documented in this encounterLake County Memorial [facility]01-27-2023 History of Present illness Narrative* Mari Alicea RT(R) - 05/16/2022 12:30 PM EST Radiology Service Progress Note PATIENT NAME: Michael Velazquez DATE OF SERVICE: May 16, 2022 [...] 16, 2022 12:25 PM documented in this encounterLake County [facility]01-18-2023 Miscellaneous Notes* Telephone Encounter - Anabelle Brantley - 05/07/2022 11:13 AM EST Patient wants to discuss her labwork. Might want a phone call or virtual appointment. documented in this encounterLake County [facility]01-05-2023 Miscellaneous Notes* Telephone Encounter - Remy Perez [...] need to notify patient. Angi Mcguire MA Penny: 03/2022 Nov: 06/2022 Last refill: 11/2021 documented in this encounterLake County [facility]12-16-2022 History of Present illness Narrative* Remy Perez MD - 04/04/2022 3:08 PM EST Chief Complaint Patient presents with: Sinusitis HPI Michael Brown is a 66 year old female [...] better. Remy Perez MD documented in this encounterLake County Memorial [facility]12-09-2022 Instructions* Patient Instructions* Genie Quispe MD - [...] your usual activities immediately. documented in this encounterLake County Memorial [facility]12-09-2022 History of Present illness Narrative* Genie Quispe MD - 03/28/2022 12:00 PM EST Images from the original note were not included. Rheumatology CONSULTATION Date of Service: 03/28/2022 Patient: Michael Velazquez Medical Record: [id number] Primary Care Physician: Remy Perez MD Last [facility] visit: [facility] Referring Provider: Aziza Thompson [address] [facility] [place] [address] Chief Complaint: Patient presents with: New Patient Joint Pain Michael Velazquez is here today at request of JOSE ALFREDO Thompson specifically for consultation of my opinion in regards to the chief complaint listed above. Correspondence will be shared today via the Q-Bot electronic health record or through regular mail, where applicable. HISTORY OF PRESENT ILLNESS Michael Velazquez is a 66 year old White female with a history of restless legs, hypertension, hypothyroidism, polymorphous light eruption, COVID recovered 09/2021 who presents rheumatology clinic for evaluation of left upper extremity numbness in the setting of previously positive FELICIA. Chart review reveals that she was evaluated by her PCP 11/01/2021 for left shoulder pain with numbness up her left hand and arm. She was given steroid taper 60 mg x 3, 40 mg x 3, 20 mg x 3, 10 mg x 3 then off with some improvement. Work-up notable for FELICIA 1: 160 nuclear homogenous, normal ESR, CRP, negative RF, normal TSH, postop changes from cervical disc fusion on x-ray, left hand x- ray with OA,and EMG completely normal of left upper extremity. Today she presents to clinic with her Marquita. She developed COVID in the summer with minimal symptoms including cough, fever, fatigue. She had 1 dose of paxlovid which caused nausea and vomiting. 1 week later she had pain shooting down her left upper extremity. She has a history of neck fusionin 2018 and previously had similar symptoms in her right arm. EMG was negative. After her prednisone she felt much better in the numbness tingling pain went away. She then developed pain and swellingin her left hand second and third MCPs with significant morning stiffness and decreased field sales specialist strength. She also has bilateral knee pain [...] or any other red hot swollen joints. Michael is RF negative - 9 (11/21/2021). Her most recent FELICIA was positive (11/21/2021). Pain Evaluation Pain Evaluation [...] to 1 a day, less recently Denies [id number] or illicits other than ibuprofen Social History [...] 69 Temp (Src) 99 (Temporal) Ht 5' 2" (1.58m) Wt 120 lb (54.4kg) BMI 21.94 [...] 3 Total Swollen 0 LABS Reviewed in [facility], notable for: 01/27/2022 Normal CBC, CMP 11/21/2021: FELICIA 1: 160 nuclear homogenous CRP less than [...] Antibodies Latest Ref Rng & Units 11/21/2021 FELICIA Negative Positive(A) FELICIA TITER - 1:160 FELICIA PATTERN - Nuclear homogenous Urinalysis Latest Ref Rng & Units 01/27/2022 PROTEIN, URINE Negative Negative RBC, URINE 0-3 /HPF 0-3 /HPF IMAGING Reviewed in [facility], notable for: 12/25/2021 EMG left upper extremity: [...] of scaphotrapezial joint space, otherwise normal ASSESSMENT Michael Velazquez is a 66 year old White female with a history of restless legs, hypertension, hypothyroidism, polymorphous light eruption, COVID recovered 09/2021 who presents rheumatology clinic for evaluation of left upper extremity numbness in the setting of previously positive FELICIA. Today she is presenting with inflammatory type hand pain in the left as well as polyarthralgia throughout her left side in the setting of positive FELICIA, COVID recovered, sicca symptoms. Differential includes rheumatoid [...] work-up as below. IMPRESSIONS Diagnoses: (R76.8) Positive FELICIA (antinuclear antibody) (primary encounter diagnosis) (R20.0) Left [...] BLD C3 COMPLEMENT BLD SJOGREN ABS SSA/SSB FELICIA BY IFA WITH REFLEX RHEUMATOID FACTOR BL IMMUNOFIXATION SCREEN, SERUM MONOCLONAL PROT UR W/INTERP CCP ANTIBODY IGG CONSULT TO RHEUM/IMMUN DISEASE CONSULT TO PHYSICAL THERAPY HYDROCODONE-ACETAMINOPHEN ORAL Return in about 4 weeks (around 04/25/2022). I spent a total of 87 minutes on the date of the service which included preparing to see the patient, [id number] patient care, completing clinical documentation, obtaining and/or reviewing separately obtained history, performing a medically appropriate examination, counseling and educating the pat ient/family/caregiver, and ordering medications, tests, or procedures. This note was partially generated with the assistance of SetuServ voice recognition software. An attempt was made to correct any dictation errors however there may be some incorrect words, spellings, and punctuation. Genie Quispe MD Rheumatology Date: March 28, 2022 Time: 1:04 PM documented in this encounterLake County [facility]10-31-2022 Miscellaneous Notes* Telephone Encounter - Remy Perez MD - 02/17/2022 4:21 PM EDT Noted. * Telephone Encounter - Leeann Wakefield Ma - 02/17/2022 3:46 PM EDT Pt wrote into the office a mychart message after receiving a phone call from Providers office. See mychart message. Leeann Wakefield Ma * Telephone Encounter - Mariela Dang LPN - 02/17/2022 2:54 PM EDT Spoke with pt and information listed below given. Pt verbalizes understanding. Pt was to physical therapy and given exercises to do but not sure they are doing any good. Pt has apt with Rheumatology in March. Mariela Rosa M Dang LPN * Telephone Encounter - Remy [...] need to notify patient. Angi Mcguire MA Penny: 01/2022 Nov: Last refill: 02/01/2022 21 tablets documented in this encounterLake County [facility]10-31-2022 Miscellaneous Notes* Telephone Encounter - Leeann Wakefield Ma - 02/17/2022 3:45 PM EDT See message from pt. Pt was updated in TE today. Leeann Wakefield Ma documented in this encounterLake County [facility]10-27-2022 Miscellaneous Notes* Telephone Encounter - New Renee LPN - 02/13/2022 1:29 PM EDT Please see pt's reply. New Renee LPN documented in this encounterLake County Memorial Hospital [facility]10-15-2022 Miscellaneous Notes* Telephone Encounter - Remy Perez [...] need to notify patient. Angi Mcguire MA Penny: 01/2022 Nov: 06/2022 Last refill: 01/11/2022 21 tablets documented in this encounterLake County Memorial [facility]10-14-2022 Miscellaneous Notes* Telephone Encounter - Toña Booth LPN - 01/31/2022 11:22 AM EDT Office notes were not included in pre-op clearance forms faxed back to Dr. Sanchez. Info faxed to [phone]. Toña Booth LPN documented in this encounterLake County Memorial Hospital [facility] West10-14-2022 Miscellaneous Notes* Telephone Encounter - Yinka Messina LPN - 01/31/2022 10:41 AM EDT Preop clearance form completed and faxed. Copy of labs printed and faxed as well. TC to pt, left detailed message on secure Prolebritymail. Pt only to return call to office /c any questions/concerns. Yinka Messina LPN * Telephone Encounter - Yinka Messina LPN - 01/31/2022 10:35 AM EDT ----- Message from Aziza Thompson PA-C sent at 01/31/2022 10:34 AM EDT ----- Urine culture was negative. Will clear for surgery documented in this encounterLake County Memorial Hospital [facility]10-11-2022 Miscellaneous Notes* Telephone Encounter - New Renee LPN - 01/28/2022 11:09 AM EDT Pt notified . New Renee LPN * Telephone Encounter - Aziza Thompson PA-C - 01/28/2022 10:54 AM EDT Order placed * Telephone Encounter - Joslyn Sunshine 01/28/2022 10:46 AM EDT Pt notified and [...] own vs starting medication. documented in this encounterLake County Memorial [facility]10-10-2022 History of Present illness Narrative* Aziza Thompson PA-C - 01/27/2022 10:23 AM EDT Chief Complaint Patient presents with: Pre-Op Exam Immunizations: Flu vaccination HPI Michael Velazquez is a 66 year old female who presents here today for preop exam. Patient is scheduled for bilateral neuromas excision on 02/21/[address] Sanchez. She has hx of hypothyroid, HTN, RLS, insomnia, and those as below. Surgical hx as below. No past complications with surgeries. No past hx of CAD, OR, TIA, CVA, She denies any current symptoms [...] Abs Lymph 1.00 - 4.00 k/uL 1.45 [place]% % 8.1 Abs [place] <0.87 k/uL 0.43 [place]% % 2.1 Abs [...] Negative Negative Ketones, Urine Negative Negative Specific [place], Ur 1.005 - 1.030 1.004 (L) Hemoglobin/Blood,Ur [...] Z23 Aziza Thompson PA-C documented in this encounterLake County Memorial Hospital [facility] West09-29-2022 Miscellaneous Notes* Telephone Encounter - Angi Mcguire MA - 01/16/2022 8:35 AM EDT Patient notified and voiced understanding. Angi Mcguire MA * Telephone Encounter - Remy Perez MD - 01/15/2022 9:15 PM EDT Let patient know mammogram was ok. documented in this encounterLake County Memorial Hospital [facility] West09-28-2022 NoteHNO ID: [id number] Author: RT Mazin(R) Service: Radiology Author Type: Technologist Type: Progress Notes Filed: 01/15/2022 3:23 PM Note Text: Radiology Service Progress Note PATIENT NAME: Michael Velazquez DATE OF SERVICE: January 15, 2022 [...] IV DATA: Not applicable SIGNED BY: RT Mazin(R) January 15, 2022 3:23 PMWright-Patterson Medical [id number] Miscellaneous Notes* Letter - Mammography Coordinator - 01/15/2022 3:29 PM EDT January 15, 2022 PID: [id number] Michael Velazquez [address] [place] [address] Dear Ms. Velazquez, We are pleased to [...] report will be [facility] as part of your permanent medical record and are available for your continuing care. Thank you for allowing us to help in meeting your health care needs. Sincerely, Dr. Stafford Interpreting Radiologist [facility] (Normal over 40) documented in this encounterLake County Memorial [facility]09-28-2022 History of Present illness Narrative* RT Mazin(R) - 01/15/2022 3:20 PM EDT Radiology Service Progress Note PATIENT NAME: Michael Velazquez DATE OF SERVICE: January 15, 2022 [...] IV DATA: Not applicable SIGNED BY: RT Mazin(R) January 15, 2022 3:23 PM documented in this encounterLake County [facility]09-24-2022 Miscellaneous Notes* Telephone Encounter - Remy Perez [...] 12/18/21 Joslyn Dunne Ma documented in this encounterLake County Memorial [facility]09-15-2022 Miscellaneous Notes* Telephone Encounter - Aziza Thompson [...] PCP. Geri Paz LPN documented in this encounterLake County Memorial Hospital [facility] West09-15-2022 History of Present illness Narrative* Geri Paz [...] PCP. Geri Paz LPN documented in this encounterLake County Memorial [facility]09-14-2022 History of Past illness Narrative* Problem Noted Date Resolved Date Cervical arthritis 01/01/2022 02/17/2022 Numbness and tingling in left arm 01/01/2022 02/17/2022 Pain of left upper extremity 01/01/2022 documented as of this encounter (statuses as of 02/17/2022) [address]14-2022 History of Past illness Narrative* Problem Noted Date Resolved Date Cervical arthritis 01/01/2022 02/17/2022 Numbness and tingling in left arm 01/01/2022 02/17/2022 Pain of left upper extremity 01/01/2022 documented as of this encounter (statuses as of 02/17/2022) [address]14-2022 History of Past illness Narrative* Problem Noted Date Resolved Date Cervical arthritis 01/01/2022 02/17/2022 Numbness and tingling in left arm 01/01/2022 02/17/2022 Pain of left upper extremity 01/01/2022 documented as of this encounter (statuses as of 03/28/2022) [address]14-2022 History of Past illness Narrative* Problem Noted Date Resolved Date Cervical arthritis 01/01/2022 02/17/2022 Numbness and tingling in left arm 01/01/2022 02/17/2022 Pain of left upper extremity 01/01/2022 documented as of this encounter (statuses as of 04/05/2022) [address]14-2022 History of Past illness Narrative* Problem Noted Date Resolved Date Cervical arthritis 01/01/2022 02/17/2022 Numbness and tingling in left arm 01/01/2022 02/17/2022 Pain of left upper extremity 01/01/2022 documented as of this encounter (statuses as of 04/25/2022) [address]14-2022 History of Past illness Narrative* Problem Noted Date Resolved Date Cervical arthritis 01/01/2022 02/17/2022 Numbness and tingling in left arm 01/01/2022 02/17/2022 Pain of left upper extremity 01/01/2022 documented as of this encounter (statuses as of 05/15/2022) [address]14-2022 History of Past illness Narrative* Problem Noted Date Resolved Date Cervical arthritis 01/01/2022 02/17/2022 Numbness and tingling in left arm 01/01/2022 02/17/2022 Pain of left upper extremity 01/01/2022 documented as of this encounter (statuses as of 05/16/2022) [address]14-2022 History of Past illness Narrative* Problem Noted Date Resolved Date Cervical arthritis 01/01/2022 02/17/2022 Numbness and tingling in left arm 01/01/2022 02/17/2022 Pain of left upper extremity 01/01/2022 documented as of this encounter (statuses as of 05/19/2022) [address]14-2022 History of Past illness Narrative* Problem Noted Date Resolved Date Cervical arthritis 01/01/2022 02/17/2022 Numbness and tingling in left arm 01/01/2022 02/17/2022 Pain of left upper extremity 01/01/2022 documented as of this encounter (statuses as of 05/21/2022) [address]14-2022 History of Past illness Narrative* Problem Noted Date Resolved Date Cervical arthritis 01/01/2022 02/17/2022 Numbness and tingling in left arm 01/01/2022 02/17/2022 Pain of left upper extremity 01/01/2022 documented as of this encounter (statuses as of 06/09/2022) [address]14-2022 History of Past illness Narrative* Problem Noted Date Resolved Date Cervical arthritis 01/01/2022 02/17/2022 Numbness and tingling in left arm 01/01/2022 02/17/2022 Pain of left upper extremity 01/01/2022 documented as of this encounter (statuses as of 06/19/2022) [address]14-2022 History of Past illness Narrative* Problem Noted Date Resolved Date Cervical arthritis 01/01/2022 02/17/2022 Numbness and tingling in left arm 01/01/2022 02/17/2022 Pain of left upper extremity 01/01/2022 documented as of this encounter (statuses as of 06/23/2022) [address]14-2022 History of Past illness Narrative* Problem Noted Date Resolved Date Cervical arthritis 01/01/2022 02/17/2022 Numbness and tingling in left arm 01/01/2022 02/17/2022 Pain of left upper extremity 01/01/2022 documented as of this encounter (statuses as of 06/24/2022) [address]14-2022 History of Past illness Narrative* Problem Noted Date Resolved Date Cervical arthritis 01/01/2022 02/17/2022 Numbness and tingling in left arm 01/01/2022 02/17/2022 Pain of left upper extremity 01/01/2022 documented as of this encounter (statuses as of 06/27/2022) [address]14-2022 History of Past illness Narrative* Problem Noted Date Resolved Date Cervical arthritis 01/01/2022 02/17/2022 Numbness and tingling in left arm 01/01/2022 02/17/2022 Pain of left upper extremity 01/01/2022 documented as of this encounter (statuses as of 06/30/2022) [address]14-2022 History of Past illness Narrative* Problem Noted Date Resolved Date Cervical arthritis 01/01/2022 02/17/2022 Numbness and tingling in left arm 01/01/2022 02/17/2022 Pain of left upper extremity 01/01/2022 documented as of this encounter (statuses as of 07/01/2022) [facility]09[facility]14[facility]2022 History of Past illness Narrative* Problem Noted Date Resolved Date Cervical arthritis 01/01/2022 02/17/2022 Numbness and tingling in left arm 01/01/2022 02/17/2022 Pain of left upper extremity 01/01/2022 documented as of this encounter (statuses as of 07/01/2022) [address]14-2022 History of Past illness Narrative* Problem Noted Date Resolved Date Cervical arthritis 01/01/2022 02/17/2022 Numbness and tingling in left arm 01/01/2022 02/17/2022 Pain of left upper extremity 01/01/2022 documented as of this encounter (statuses as of 07/01/2022) [facility]09-14-2022 History of Past illness Narrative* Problem Noted Date Resolved Date Cervical arthritis 01/01/2022 02/17/2022 Numbness and tingling in left arm 01/01/2022 02/17/2022 Pain of left upper extremity 01/01/2022 documented as of this encounter (statuses as of 07/03/2022) [address]14-2022 History of Past illness Narrative* Problem Noted Date Resolved Date Cervical arthritis 01/01/2022 02/17/2022 Numbness and tingling in left arm 01/01/2022 02/17/2022 Pain of left upper extremity 01/01/2022 documented as of this encounter (statuses as of 07/03/2022) [address]14-2022 History of Past illness Narrative* Problem Noted Date Resolved Date Cervical arthritis 01/01/2022 02/17/2022 Numbness and tingling in left arm 01/01/2022 02/17/2022 Pain of left upper extremity 01/01/2022 documented as of this encounter (statuses as of 07/04/2022) [address]14-2022 History of Past illness Narrative* Problem Noted Date Resolved Date Cervical arthritis 01/01/2022 02/17/2022 Numbness and tingling in left arm 01/01/2022 02/17/2022 Pain of left upper extremity 01/01/2022 documented as of this encounter (statuses as of 07/14/2022) [address]14-2022 History of Past illness Narrative* Problem Noted Date Resolved Date Cervical arthritis 01/01/2022 02/17/2022 Numbness and tingling in left arm 01/01/2022 02/17/2022 Pain of left upper extremity 01/01/2022 documented as of this encounter (statuses as of 07/14/2022) [address]14-2022 History of Past illness Narrative* Problem Noted Date Resolved Date Cervical arthritis 01/01/2022 02/17/2022 Numbness and tingling in left arm 01/01/2022 02/17/2022 Pain of left upper extremity 01/01/2022 documented as of this encounter (statuses as of 07/17/2022) [address]14-2022 History of Past illness Narrative* Problem Noted Date Resolved Date Cervical arthritis 01/01/2022 02/17/2022 Numbness and tingling in left arm 01/01/2022 02/17/2022 Pain of left upper extremity 01/01/2022 documented as of this encounter (statuses as of 08/11/2022) [address]14-2022 History of Past illness Narrative* Problem Noted Date Resolved Date Cervical arthritis 01/01/2022 02/17/2022 Numbness and tingling in left arm 01/01/2022 02/17/2022 Pain of left upper extremity 01/01/2022 documented as of this encounter (statuses as of 08/19/2022) [address]14-2022 History of Past illness Narrative* Problem Noted Date Resolved Date Cervical arthritis 01/01/2022 02/17/2022 Numbness and tingling in left arm 01/01/2022 02/17/2022 Pain of left upper extremity 01/01/2022 documented as of this encounter (statuses as of 08/29/2022) [facility]09[facility]14-2022 History of Past illness Narrative* Problem Noted Date Resolved Date Cervical arthritis 01/01/2022 02/17/2022 Numbness and tingling in left arm 01/01/2022 02/17/2022 Pain of left upper extremity 01/01/2022 documented as of this encounter (statuses as of 09/24/2022) [facility]14[facility]2022 History of Past illness Narrative* Problem Noted Date Resolved Date Cervical arthritis 01/01/2022 02/17/2022 Numbness and tingling in left arm 01/01/2022 02/17/2022 Pain of left upper extremity 01/01/2022 documented as of this encounter (statuses as of 10/15/2022) [facility]20[facility] History of Past illness Narrative* Problem Noted Date Diagnosed Date Resolved Date Cervical arthritis 01/01/2022 2 Numbness and tingling in left arm 01/01/2022 02/17/2022 Pain of left upper extremity 01/01/2022 02/17/2022 documented as of this encounter (statuses as of 11/29/2022) [address]14-2022 History of Past illness Narrative* Problem Noted Date Diagnosed Date Resolved Date Cervical arthritis 01/01/2022 2 Numbness and tingling in left arm 01/01/2022 02/17/2022 Pain of left upper extremity 01/01/2022 02/17/2022 documented as of this encounter (statuses as of 12/12/2022) [address]14-2022 History of Past illness Narrative* Problem Noted Date Diagnosed Date Resolved Date Cervical arthritis 01/01/2022 2 Numbness and tingling in left arm 01/01/2022 02/17/2022 Pain of left upper extremity 01/01/2022 02/17/2022 documented as of this encounter (statuses as of 12/17/2022) [address]14-2022 History of Past illness Narrative* Problem Noted Date Diagnosed Date Resolved Date Cervical arthritis 01/01/2022 2 Numbness and tingling in left arm 01/01/2022 02/17/2022 Pain of left upper extremity 01/01/2022 02/17/2022 documented as of this encounter (statuses as of 12/24/2022) [address]14-2022 History of Past illness Narrative* Problem Noted Date Diagnosed Date Resolved Date Cervical arthritis 01/01/2022 2 Numbness and tingling in left arm 01/01/2022 02/17/2022 Pain of left upper extremity 01/01/2022 02/17/2022 documented as of this encounter (statuses as of 12/25/2022) [address]14-2022 History of Past illness Narrative* Problem Noted Date Diagnosed Date Resolved Date Cervical arthritis 01/01/2022 2 Numbness and tingling in left arm 01/01/2022 02/17/2022 Pain of left upper extremity 01/01/2022 02/17/2022 documented as of this encounter (statuses as of 12/26/2022) [address]14-2022 History of Past illness Narrative* Problem Noted Date Diagnosed Date Resolved Date Cervical arthritis 01/01/2022 2 Numbness and tingling in left arm 01/01/2022 02/17/2022 Pain of left upper extremity 01/01/2022 02/17/2022 documented as of this encounter (statuses as of 12/29/2022) [address]14-2022 History of Past illness Narrative* Problem Noted Date Diagnosed Date Resolved Date Cervical arthritis 01/01/2022 2 Numbness and tingling in left arm 01/01/2022 02/17/2022 Pain of left upper extremity 01/01/2022 02/17/2022 documented as of this encounter (statuses as of 01/16/2023) [address]14-2022 History of Past illness Narrative* Problem Noted Date Diagnosed Date Resolved Date Cervical arthritis 01/01/2022 2 Numbness and tingling in left arm 01/01/2022 02/17/2022 Pain of left upper extremity 01/01/2022 02/17/2022 documented as of this encounter (statuses as of 02/03/2023) [facility]14-2022 History of Past illness Narrative* Problem Noted Date Diagnosed Date Resolved Date Cervical arthritis 01/01/2022 2 Numbness and tingling in left arm 01/01/2022 02/17/2022 Pain of left upper extremity 01/01/2022 02/17/2022 documented as of this encounter (statuses as of 02/12/2023) [facility]09[facility]14-2022 History of Past illness Narrative* Problem Noted Date Diagnosed Date Resolved Date Cervical arthritis 01/01/2022 2 Numbness and tingling in left arm 01/01/2022 02/17/2022 Pain of left upper extremity 01/01/2022 02/17/2022 documented as of this encounter (statuses as of 02/13/2023) [facility]14-2022 History of Past illness Narrative* Problem Noted Date Diagnosed Date Resolved Date Cervical arthritis 01/01/2022 2 Numbness and tingling in left arm 01/01/2022 02/17/2022 Pain of left upper extremity 01/01/2022 02/17/2022 documented as of this encounter (statuses as of 02/23/2023) [address]14-2022 History of Past illness Narrative* Problem Noted Date Diagnosed Date Resolved Date Cervical arthritis 01/01/2022 2 Numbness and tingling in left arm 01/01/2022 02/17/2022 Pain of left upper extremity 01/01/2022 02/17/2022 documented as of this encounter (statuses as of 02/23/2023) [address]14-2022 History of Past illness Narrative* Problem Noted Date Diagnosed Date Resolved Date Cervical arthritis 01/01/2022 2 Numbness and tingling in left arm 01/01/2022 02/17/2022 Pain of left upper extremity 01/01/2022 02/17/2022 documented as of this encounter (statuses as of 02/23/2023) [address]14-2022 History of Past illness Narrative* Problem Noted Date Diagnosed Date Resolved Date Cervical arthritis 01/01/2022 2 Numbness and tingling in left arm 01/01/2022 02/17/2022 Pain of left upper extremity 01/01/2022 02/17/2022 documented as of this encounter (statuses as of 04/09/2023) [address]14-2022 History of Past illness Narrative* Problem Noted Date Diagnosed Date Resolved Date Cervical arthritis 01/01/2022 2 Numbness and tingling in left arm 01/01/2022 02/17/2022 Pain of left upper extremity 01/01/2022 02/17/2022 documented as of this encounter (statuses as of 04/19/2023) [address]14-2022 History of Past illness Narrative* Problem Noted Date Diagnosed Date Resolved Date Cervical arthritis 01/01/2022 2 Numbness and tingling in left arm 01/01/2022 02/17/2022 Pain of left upper extremity 01/01/2022 02/17/2022 documented as of this encounter (statuses as of 05/23/2023) [address]14-2022 History of Past illness Narrative* Problem Noted Date Diagnosed Date Resolved Date Cervical arthritis 01/01/2022 2 Numbness and tingling in left arm 01/01/2022 02/17/2022 Pain of left upper extremity 01/01/2022 02/17/2022 documented as of this encounter (statuses as of 06/11/2023) [address]14-2022 History of Past illness Narrative* Problem Noted Date Diagnosed Date Resolved Date Cervical arthritis 01/01/2022 2 Numbness and tingling in left arm 01/01/2022 02/17/2022 Pain of left upper extremity 01/01/2022 02/17/2022 documented as of this encounter (statuses as of 06/24/2023) [address]14-2022 History of Past illness Narrative* Problem Noted Date Diagnosed Date Resolved Date Cervical arthritis 01/01/2022 2 Numbness and tingling in left arm 01/01/2022 02/17/2022 Pain of left upper extremity 01/01/2022 02/17/2022 documented as of this encounter (statuses as of 06/25/2023) [facility]09[facility]14-2022 History of Past illness Narrative* Problem Noted Date Diagnosed Date Resolved Date Cervical arthritis 01/01/2022 2 Numbness and tingling in left arm 01/01/2022 02/17/2022 Pain of left upper extremity 01/01/2022 02/17/2022 documented as of this encounter (statuses as of 06/29/2023) [facility]09[facility]14-2022 History of Past illness Narrative* Problem Noted Date Diagnosed Date Resolved Date Cervical arthritis 01/01/2022 2 Numbness and tingling in left arm 01/01/2022 02/17/2022 Pain of left upper extremity 01/01/2022 02/17/2022 documented as of this encounter (statuses as of 07/06/2023) [facility]14-2022 History of Past illness Narrative* Problem Noted Date Diagnosed Date Resolved Date Cervical arthritis 01/01/2022 2 Numbness and tingling in left arm 01/01/2022 02/17/2022 Pain of left upper extremity 01/01/2022 02/17/2022 documented as of this encounter (statuses as of 07/24/2023) [address]14-2022 History of Past illness Narrative* Problem Noted Date Diagnosed Date Resolved Date Cervical arthritis 01/01/2022 2 Numbness and tingling in left arm 01/01/2022 02/17/2022 Pain of left upper extremity 01/01/2022 02/17/2022 documented as of this encounter (statuses as of 07/27/2023) [address]14-2022 History of Past illness Narrative* Problem Noted Date Diagnosed Date Resolved Date Cervical arthritis 01/01/2022 2 Numbness and tingling in left arm 01/01/2022 02/17/2022 Pain of left upper extremity 01/01/2022 02/17/2022 documented as of this encounter (statuses as of 08/04/2023) [facility]14[facility]2022 History of Past illness Narrative* Problem Noted Date Diagnosed Date Resolved Date Cervical arthritis 01/01/2022 2 Numbness and tingling in left arm 01/01/2022 02/17/2022 Pain of left upper extremity 01/01/2022 02/17/2022 documented as of this encounter (statuses as of 08/07/2023) [facility]09[facility]14-2022 History of Past illness Narrative* Problem Noted Date Diagnosed Date Resolved Date Cervical arthritis 01/01/2022 2 Numbness and tingling in left arm 01/01/2022 02/17/2022 Pain of left upper extremity 01/01/2022 02/17/2022 documented as of this encounter (statuses as of 08/07/2023) [facility]09-11-2022 Miscellaneous Notes* Telephone Encounter - Remy Perez MD - 12/29/2021 1:05 PM EDT Please help patient get Rheum appt set up documented in [facility] encounterL[facility] Miscellaneous Notes* Telephone Encounter - Anabelle Gomes [...] the neck. * Telephone Encounter - New Renee LPN - 12/26/2021 7:42 AM EDT Received results of pt's EMG. New Renee LPN Scan on 12/25/2021 3:12 PM by External Provider: Neurology documented in this encounterL[facility] History of Present illness Narrative* Remy Perez MD - 12/19/2021 3:56 PM EDT Patient my charted with BP: BP 104/76 Pulse 68 Resp 14 Wt 54.9 kg (121 lb) * Remy Perez MD - 12/18/2021 3:05 PM EDT Chief Complaint Patient presents with: Recheck HPI Michael Velazquez is a 66 year old female [...] were all ok. Rheumatoid factor was negative. FELICIA was 1/160 and has had a past [...] at the elbow was normal and symmetrical. [employer] strength was not symmetrical: 5/5 on the [...] Component Latest Ref Rng & Units 11/21/2021 FELICIA Negative Positive (A) FELICIA Titer 1:160 FELICIA Pattern Nuclear homogenous Rheumatoid Factor <16 IU/mL <10 WSR 0 - 20 mm/hr 8 CRP <0.9 mg/dL <0.3 TSH 0.270 - 4.200 mIU/L 3.610 11/22/2021 5:23 PM - Radiology, Oru In Impression IMPRESSION: Osteoarthrosis. No acute osseous abnormality identified. Tank Tender: [facility] Transcribe Date/Time: Nov 22 2021 [...] PE Remy Perez MD documented in this [facility]08-31-2022 Nurse Note* Angi Mcguire MA - 12/18/2021 [...] visit. Angi Mcguire MA documented [facility] this [facility]08-15-2022 Miscellaneous Notes* Telephone Encounter - New Renee LPN - 12/02/2021 7:09 AM EDT Please see pt's message. New Renee LPN documented [facility] this [facility]08-08-2022 Miscellaneous Notes* Telephone Encounter - New Renee [...] sent at 11/24/2021 5:08 PM EDT ----- Felicia positive. Given history of this, we can monitor for now. documented in this encounterL[facility] Miscellaneous Notes* Telephone Encounter - Remy Perez [...] patient. Angi Mcguire MA documented in this encounterL[facility] Miscellaneous Notes* Telephone Encounter - New Renee LPN - 11/22/2021 10:54 AM EDT Patient notified of results and provider's instructions. Patient verbalizes understanding. New Renee LPN * Telephone Encounter - New Renee LPN - 11/22/2021 10:51 AM EDT ----- Message from Aziza Thompson PA-C sent at 11/22/2021 10:39 AM EDT ----- Labs look okay. Continue as we discussed for now. documented in this encounterL[facility] Miscellaneous Notes* Telephone Encounter - New Renee LPN - 11/21/2021 11:30 AM EDT Aziza has been updated of pt's message. New Renee LPN documented in this encounterL[facility] History of Present illness Narrative* Jennifer Pa RT(R) - 11/21/2021 9:50 AM EDT Radiology Service Progress Note PATIENT NAME: Michael Velazquez DATE OF SERVICE: November 21, 2021 [...] 21, 2021 9:34 AM documented in this encounterL[facility] History of Present illness Narrative* Aziza Thompson PA-C - 11/21/2021 9:03 AM EDT Chief Complaint Patient presents with: Musculoskeletal Problem: left hand and fingers HPI Michael Velazquez is a 65 year old female [...] RATE WESTERGREN - C-REACTIVE PROTEIN (CRP) - FELICIA BY IFA SCREEN - XR HAND GENERAL 3V PA/LAT/OBL LEFT - TRAMADOL 50 MG TABLET 2. Left hand pain - ICD9: 729.5, ICD10: M79.642 - RHEUMATOID FACTOR BL - SED RATE WESTERGREN - C-REACTIVE PROTEIN (CRP) - FELICIA BY IFA SCREEN - XR HAND GENERAL 3V PA/LAT/OBL LEFT 3. Positive FELICIA (antinuclear antibody) - ICD9: 795.79, ICD10: R76.8 4. Numbness and tingling in left hand - ICD9: 782.0, ICD10: R20.0, R20.2 - TSH BLD 5. Left arm pain - ICD9: 729.5, ICD10: M79.602 - TRAMADOL 50 MG TABLET 6. Numbness and tingling of left upper extremity - ICD9: 782.0, ICD10: R20.0, R20.2 - TRAMADOL 50 MG TABLET Aziza Thompson PA-C documented in this encounterL[facility] Miscellaneous Notes* Telephone Encounter - New Renee LPN - 11/06/2021 12:39 PM EDT Pt notified of same via My Chart and was advised to call to schedule PT appointment. New Renee LPN * Telephone Encounter - Remy Perez MD - 11/06/2021 12:27 PM EDT PHYSICAL THERAPY orders placed. * Telephone Encounter - Kamilla Villanueva Ma - 11/06/2021 10:53 AM EDT Patient sent [employer] message requesting PT Please place order an will have her call to scheduled Kamilla Villanueva Ma * Telephone Encounter - Kamilla Villanueva Ma - 11/05/2021 10:11 AM EDT Left message for patient to call office back Kamilla Villanueva Ma * Telephone Encounter - Remy Perez MD [...] Dang LPN * Telephone Encounter - Kamilla Villanueva Ma - 11/05/2021 9:00 AM EDT Left vm for patient to call back Kamilla Villanueva Ma * Telephone Encounter - Remy Perez MD - 11/04/2021 10:02 PM EDT Let patient know neck x-ray shows no acute issues. There is moderate arthritic changes on the left causing narrowing where the nerve roots come out. documented in this encounterL[facility] History of Present illness Narrative* Remy Perez MD - 11/01/2021 3:36 PM EDT Chief Complaint No chief complaint on file. HPI Michael Velazquez is a 65 year old female [...] intact and symmetrical in the upper extremities. [employer] strength was just slightly weaker on the [...] which included preparing to see the patient, [id number] patient care, completing clinical documentation, performing a medically appropriate examination, counseling and educating the patient/family/caregiver and ordering medications, tests, or procedures. Remy Perez MD documented in this encounterL[facility]Evaluation note* Diagnosis Onset Date Resolution Status Cough acute Sinusitis acute [facility] Work Phone: Evaluation note* Diagnosis Left arm pain- Primary Pain in limb Left hand weakness Muscle weakness (generalized) Numbness and tingling of left upper extremity Upper back pain [facility] Pain of left upper extremity- Primary Left arm weakness Other musculoskeletal symptoms referable to limbs Left hand weakness Muscle weakness (generalized) Numbness and tingling in left arm Disturbance of skin sensation Cervical arthritis Cervical spondylosis without myelopathy [facility] Left hand weakness- Primary Muscle weakness (generalized) Left hand pain Pain in limb Positive FELICIA (antinuclear antibody) Other and unspecified nonspecific immunological findings Numbness and tingling in left hand Disturbance of skin sensation Left arm pain Pain in limb Numbness and tingling of left upper extremity documented [facility] this encounter [facility]* Diagnosis Encounter for screening mammogram for breast cancer documented [facility] encounter [facility]* Diagnosis Left upper extremity numbness Disturbance of skin sensation Left hand pain Pain in limb Left arm pain Pain in limb Left hand weakness Muscle weakness (generalized) Numbness and tingling of left upper extremity documented [facility] encounter [facility]* Diagnosis Left upper extremity numbness- Primary Disturbance of skin sensation Left hand pain Pain in limb Left hand weakness Muscle weakness (generalized) Positive FELICIA (antinuclear antibody) Other and unspecified nonspecific immunological findings documented in this encounter [facility]Evaluation noteNo assessment information availableWUK Healthcare Work Phone: Evaluation note* Diagnosis Hypertension, essential- Primary Unspecified essential hypertension documented [facility] this encounter [facility]* Diagnosis Left arm pain Pain in limb Left hand weakness Muscle weakness (generalized) Numbness and tingling of left upper extremity documented [facility] this encounter [facility]* Diagnosis Encounter for screening mammogram for breast cancer [facility] Preop examination- Primary Preoperative examination, [...] unspecified single disease documented [facility] this encounter [facility]* Diagnosis Microscopic hematuria- Primary [facility] Diagnosis Left arm pain Pain in limb Left hand weakness Muscle weakness (generalized) Numbness and tingling of left upper extremity documented [facility] this encounter [facility]* Diagnosis Left arm pain Pain in limb Left hand weakness Muscle weakness (generalized) Numbness and tingling of left upper extremity documented [facility] encounter [facility]* Diagnosis Positive FELICIA (antinuclear antibody)- Primary Other and unspecified nonspecific immunological findings Left upper extremity numbness Disturbance of skin sensation Left hand pain Pain in limb Left hand weakness Muscle weakness (generalized) Sicca syndrome (HCC) Sicca syndrome Malaise and fatigue Other malaise and fatigue Pain in joint, multiple sites Encounter for screening for osteoporosis Special screening for osteoporosis [facility] [facility] Diagnosis Bacterial sinusitis- Primary Unspecified sinusitis (chronic) [facility] Diagnosis Lumbar back pain- Primary Lumbago documented in this encounter [facility]* Diagnosis Bone lesion- Primary Disorder of bone and cartilage, unspecified Abnormal x-ray Other nonspecific (abnormal) findings on radiological and other examinations of body structure documented in this encounter [facility]* Diagnosis Lumbar back pain- Primary Lumbago documented in this encounter [facility]* Diagnosis Encounter for Medicare annual wellness [...] Routine gynecological examination documented in this encounter [facility]* Diagnosis Screening for colon cancer Special screening for malignant neoplasms, colon documented in this encounter [facility]* Diagnosis Fall (on) (from) unspecified stairs and steps, subsequent encounter- Primary Acute pain of right shoulder documented in this encounter [facility]* Diagnosis Acute pain of right shoulder- Primary documented in this encounter [facility]* Diagnosis Dislocation of right shoulder joint, subsequent encounter- Primary documented in this encounter [facility]* Diagnosis Fall (on) (from) unspecified stairs and steps, subsequent encounter- Primary Anxiety with fear documented in this encounter [facility]* Diagnosis Trochanteric bursitis of left hip- Primary Enthesopathy of hip region Acute pain of right shoulder documented in this encounter [facility]* Diagnosis Fall (on) (from) unspecified stairs and steps, subsequent encounter- Primary documented in this encounter [facility]* Diagnosis Fall (on) (from) unspecified stairs and steps, subsequent encounter- Primary documented in this encounter [facility] note* Diagnosis Fall (on) (from) unspecified stairs and steps, subsequent encounter- Primary documented in this encounter [facility] note* Diagnosis Fall (on) (from) unspecified stairs and steps, subsequent encounter- Primary documented in this encounter [facility] note* Diagnosis Fall (on) (from) unspecified stairs and steps, subsequent encounter- Primary documented in this encounter [facility] note* Diagnosis Fall (on) (from) unspecified stairs and steps, subsequent encounter- Primary documented in this encounter [facility] note* Diagnosis Postoperative hypothyroidism- Primary Postsurgical hypothyroidism Elevated blood sugar Other abnormal glucose Hypertension, essential Unspecified essential hypertension Primary insomnia Persistent disorder of initiating or maintaining sleep Hyperlipidemia, mixed Mixed hyperlipidemia documented in this encounter [facility] note* Diagnosis Fall (on) (from) unspecified stairs and steps, subsequent encounter- Primary documented in this encounter [facility] note* Diagnosis Diverticulosis- Primary Diverticulosis of colon (without mention of hemorrhage) Hyperplastic polyp of sigmoid colon Irregular bowel habits Other specified disorder of intestines Abdominal cramping Abdominal pain, unspecified site History of episiotomy Fecal soiling Fecal smearing documented in this encounter [facility] note* Diagnosis Acute pain of both knees- Primary Muscle pain, cervical Cervicalgia documented in this encounter [facility] note* Diagnosis Encounter for screening for malignant neoplasm of colon- Primary Special screening for malignant neoplasms, colon Special screening for malignant neoplasms, colon documented in this encounter [facility] note* Diagnosis Bone lesion Disorder of bone and cartilage, unspecified Abnormal x-ray Other nonspecific (abnormal) findings on radiological and other examinations of body structure documented in this encounter [facility] note* Diagnosis Acute cough- Primary [facility] Diagnosis Rhinosinusitis- Primary Unspecified sinusitis (chronic) documented in this encounter [facility] note* Diagnosis Bacterial sinusitis- Primary Unspecified sinusitis (chronic) documented in this encounter [facility] note* Diagnosis Sinobronchitis- Primary Unspecified sinusitis (chronic) documented [facility]* Diagnosis Fall (on) (from) unspecified stairs and steps, subsequent encounter documented in this encounter [facility]* Diagnosis Bacterial sinusitis- Primary Unspecified sinusitis (chronic) [facility] Diagnosis Encounter for Medicare annual wellness [...] Rhinitis, unspecified type [facility] Diagnosis Elevated serum creatinine- Primary Other nonspecific findings on examination of blood [facility] Diagnosis Fatigue, unspecified type- Primary Primary insomnia Persistent disorder of initiating or maintaining sleep SHAYLA (generalized anxiety disorder) Generalized anxiety disorder [facility]* Diagnosis Asymptomatic postmenopausal status [facility]* Diagnosis Osteopenia, senile- Primary Disorder of bone and cartilage, unspecified [facility]* Diagnosis Fall (on) (from) unspecified stairs and steps, subsequent encounter [facility] Diagnosis Radiculopathy of lumbar region- Primary Thoracic or lumbosacral neuritis or radiculitis, unspecified Chronic midline low back pain without sciatica Decreased reflex Abnormal reflex documented in this encounter [facility]* Diagnosis Radiculopathy of lumbar region Thoracic or lumbosacral neuritis or radiculitis, unspecified Chronic midline low back pain without sciatica Decreased reflex Abnormal reflex [facility]* Diagnosis Lumbar back pain- Primary Lumbago Spondylosis of lumbar region without myelopathy or radiculopathy Lumbosacral spondylosis without myelopathy documented in this encounter [facility]* Diagnosis Acute cough [facility] Diagnosis Acute pain of both knees documented in this encounter [facility]* Diagnosis Fall (on) (from) unspecified stairs and steps, subsequent encounter documented in this encounter [facility]* Diagnosis Lumbar back pain Lumbago documented in this encounter [facility]* Diagnosis Positive FELICIA (antinuclear antibody) Other and unspecified nonspecific immunological findings documented in this encounter [facility]* Diagnosis Acute pain of right shoulder documented in this encounter [facility]* Diagnosis Left hand weakness Muscle weakness (generalized) Left hand pain Pain in limb documented in this encounter [facility]* Diagnosis Left arm pain Pain in limb Left hand weakness Muscle weakness (generalized) Numbness and tingling of left upper extremity documented in this encounter [facility]* Diagnosis Lumbar back pain Lumbago Spondylosis of lumbar region without myelopathy or radiculopathy Lumbosacral spondylosis without myelopathy documented in this encounter [facility]* Diagnosis Hypertension, essential- Primary Unspecified essential hypertension Hyperlipidemia, mixed Mixed hyperlipidemia Elevated blood sugar Other abnormal glucose Postoperative hypothyroidism Postsurgical hypothyroidism RLS (restless legs syndrome) Restless legs syndrome (RLS) Encounter for immunization Need for other specified prophylactic vaccination against single bacterial disease documented in this encounter [facility]* Diagnosis Lumbar back pain- Primary Lumbago documented in this encounter [facility]* Diagnosis Sinobronchitis- Primary Unspecified sinusitis (chronic) Acute cough documented in this encounter [facility]* Diagnosis Lumbar back pain- Primary Lumbago documented in this encounter [facility]* Diagnosis Lumbar back pain- Primary Lumbago documented in this encounter [facility]* Diagnosis Fall (on) (from) unspecified stairs and steps, subsequent encounter documented in this encounter [facility]* Diagnosis Chronic left hip pain- Primary Pain in joint, pelvic region and thigh Plantar fasciitis of right foot Plantar fascial fibromatosis documented in this encounter [facility]* Diagnosis Chronic left hip pain Pain in joint, pelvic region and thigh Plantar fasciitis of right foot Plantar fascial fibromatosis documented in this encounter [facility]* Diagnosis Plantar fasciitis- Primary Plantar fascial fibromatosis documented in this encounter [facility]* Diagnosis Plantar fasciitis of right foot Plantar fascial fibromatosis documented in this encounter [facility]* Diagnosis Encounter for screening mammogram for breast cancer documented in this encounter [facility]* Diagnosis Encounter for screening mammogram for breast cancer Encounter for screening mammogram for breast cancer [facility]* Diagnosis Lumbar back pain- Primary Lumbago Spondylosis of lumbar region without myelopathy or radiculopathy Lumbosacral spondylosis without myelopathy [facility]* Diagnosis Plantar fasciitis of right foot- Primary Plantar fascial fibromatosis Lumbar back pain Lumbago Spondylosis of lumbar region without myelopathy or radiculopathy Lumbosacral spondylosis without myelopathy documented [facility] this [facility]* Diagnosis Encounter for Medicare annual wellness exam- Primary Routine general medical examination at a [facility] Advance directive discussed with patient Other specified [...] vascular disease, unspecified documented in this encounter [facility]* Diagnosis Plantar fasciitis of right foot- Primary Plantar fascial fibromatosis documented in this encounter [facility]* Diagnosis Essential (primary) hypertension- Primary Unspecified essential hypertension Palpitations Muscle cramp Cramp of limb Generalized anxiety disorder documented [facility] this [facility]* Diagnosis Onset Date Resolution Status Admit Date Dyslipidemia chronic September 19 1:58pm Generalized anxiety disorder chronic September 19, 2024 1:58pm Hypertension, essential chronic J 2024 1:58pm Palpitations chronic September 19 1:58pm SVT (supraventricular tachycardia) chronic September 19, 2024 1 :58pm [employer] Work Phone: Evaluation note* Diagnosis Postoperative hypothyroidism- Primary Postsurgical hypothyroidism documented in this encounter [facility]* Diagnosis Nocturnal leg cramps- Primary Sleep related leg cramps RLS (restless legs syndrome) Restless legs syndrome (RLS) Bradycardia, drug induced Other specified cardiac dysrhythmias Hyperlipidemia, mixed Mixed hyperlipidemia documented in this [facility]* Diagnosis Postoperative hypothyroidism- Primary Postsurgical hypothyroidism documented in this [facility]* Diagnosis Plantar fasciitis of right foot- Primary Plantar fascial fibromatosis [facility] Nocturnal leg cramps- Primary Sleep related leg cramps Hypertension, essential Unspecified essential hypertension documented in this encounter [facility] Discharge instructions Additional Instructions Implant Used?: [facility] Work Phone: Instructions* Name Dates Details Patient Instructions Indication:BMI 21.0-21.9, adult Start:08-Jun-2020 Instruction Type:Provider Instructions for Treatment How to Access Health Informa tion Online using Patient Portal and [employer] Apps Indication:BMI 21.0-21.9, adult Start:08-Jun-2020 Instruction Type:Patient [...] Informa tion Online using Patient Portal and [employer] Apps Indication:Nonsmoker Start:18-Sep-2020 Instruction Type:Patient Education Patient Instructions Indication:BMI 21.0-21.9, adult Start:08-Jun-2020 Instruction Type:Provider Instructions for Treatment How to Access Health Informa tion Online using Patient Portal and [employer] Apps Indication:BMI 21.0-21.9, adult Start:08-Jun-2020 Instruction Type:Patient [...] tion Online using Patient Portal and [employer] Apps Indication:Nonsmoker Start:18-Sep-2020 Instruction Type:Patient Education Patient Instructions Indication:BMI 21.0-21.9, adult Start:08-Jun-2020 Instruction Type:Provider Instructions for Treatment How to Access Health Informa tion Online using Patient Portal and [employer] Indication:BMI 21.0-21.9, adult Start:08-Jun-2020 Instruction Type:Patient [...] tion Online using Patient Portal and [employer] Apps Indication:Nonsmoker Start:21-Sep-2020 Instruction Type:Patient Education Patient Instructions Indication:Nonsmoker Start:18-Sep-2020 Instruction Type:Provider Instructions for Treatment How to Access Health Informa tion Online using Patient Portal and [employer] Apps Indication:Nonsmoker Start:18-Sep-2020 Instruction Type:Patient Education Patient Instructions Indication:BMI 21.0-21.9, adult Start:08-Jun-2020 Instruction Type:Provider Instructions for Treatment How to Access Health Informa tion Online using Patient Portal and [employer] Indication:BMI 21.0-21.9, adult Start:08-Jun-2020 Instruction Type:Patient [...] tion Online using Patient Portal and [employer] Indication:BMI 21.0-21.9, adult Start:11-Jan-2021 Instruction Type:Patient Education Patient Instructions Indication:Nonsmoker Start:21-Sep-2020 Instruction Type:Provider Instructions for Treatment How to Access Health Informa tion Online using Patient Portal and [employer] Indication:Nonsmoker Start:21-Sep-2020 Instruction Type:Patient Education Patient Instructions Indication:Nonsmoker Start:18-Sep-2020 Instruction Type:Provider Instructions for Treatment How to Access Health Informa tion Online using Patient Portal and [employer] Apps Indication:Nonsmoker Start:18-Sep-2020 Instruction Type:Patient Education Patient Instructions Indication:BMI 21.0-21.9, adult Start:08-Jun-2020 Instruction Type:Provider Instructions for Treatment How to Access Health Informa tion Online using Patient Portal and [employer] Indication:BMI 21.0-21.9, adult Start:08-Jun-2020 Instruction Type:Patient [...] tion Online using Patient Portal and [employer] Indication:Nonsmoker Start:03-May-2021 Instruction Type:Patient Education Patient Instructions Indication:BMI 21.0-21.9, adult Start:11-Jan-2021 Instruction Type:Provider Instructions for Treatment How to Access Health Informa tion Online using Patient Portal and [employer] Indication:BMI 21.0-21.9, adult Start:11-Jan-2021 Instruction Type:Patient Education Patient Instructions Indication:Nonsmoker Start:21-Sep-2020 Instruction Type:Provider Instructions for Treatment How to Access Health Informa tion Online using Patient Portal and [employer] Indication:Nonsmoker Start:21-Sep-2020 Instruction Type:Patient Education Patient Instructions Indication:Nonsmoker Start:18-Sep-2020 Instruction Type:Provider Instructions for Treatment How to Access Health Informa tion Online using Patient Portal and [employer] Apps Indication:Nonsmoker Start:18-Sep-2020 Instruction Type:Patient Education Patient Instructions Indication:BMI 21.0-21.9, adult Start:08-Jun-2020 Instruction Type:Provider Instructions for Treatment How to Access Health Informa tion Online using Patient Portal and [employer] Indication:BMI 21.0-21.9, adult Start:08-Jun-2020 Instruction Type:Patient [...] tion Online using Patient Portal and [employer] Indication:Nonsmoker Start:03-May-2021 Instruction Type:Patient Education Patient Instructions Indication:BMI 21.0-21.9, adult Start:11-Jan-2021 Instruction Type:Provider Instructions for Treatment How to Access Health Informa tion Online using Patient Portal and [employer] Indication:BMI 21.0-21.9, adult Start:11-Jan-2021 Instruction Type:Patient Education Patient Instructions Indication:Nonsmoker Start:21-Sep-2020 Instruction Type:Provider Instructions for Treatment How to Access Health Informa tion Online using Patient Portal and [employer] Indication:Nonsmoker Start:21-Sep-2020 Instruction Type:Patient Education Patient Instructions Indication:Nonsmoker Start:18-Sep-2020 Instruction Type:Provider Instructions for Treatment How to Access Health Informa tion Online using Patient Portal and [employer] Apps Indication:Nonsmoker Start:18-Sep-2020 Instruction Type:Patient Education Patient Instructions Indication:BMI 21.0-21.9, adult Start:08-Jun-2020 Instruction Type:Provider Instructions for Treatment How to Access Health Informa tion Online using Patient Portal and [employer] Indication:BMI 21.0-21.9, adult Start:08-Jun-2020 Instruction Type:Patient [...] tion Online using Patient Portal and [employer] Apps Indication:Nonsmoker Start:03-May-2021 Instruction Type:Patient Education Patient Instructions Indication:BMI 21.0-21.9, adult Start:11-Jan-2021 Instruction Type:Provider Instructions for Treatment How to Access Health Informa tion Online using Patient Portal and [employer] Apps Indication:BMI 21.0-21.9, adult Start:11-Jan-2021 Instruction Type:Patient Education Patient Instructions Indication:Nonsmoker Start:21-Sep-2020 Instruction Type:Provider Instructions for Treatment How to Access Health Informa tion Online using Patient Portal and [employer] Indication:Nonsmoker Start:21-Sep-2020 Instruction Type:Patient Education Patient Instructions Indication:Nonsmoker Start:18-Sep-2020 Instruction Type:Provider Instructions for Treatment How to Access Health Informa tion Online using Patient Portal and [employer] Apps Indication:Nonsmoker Start:18-Sep-2020 Instruction Type:Patient Education Patient Instructions Indication:BMI 21.0-21.9, adult Start:08-Jun-2020 Instruction Type:Provider Instructions for Treatment How to Access Health Informa tion Online using Patient Portal and [employer] Indication:BMI 21.0-21.9, adult Start:08-Jun-2020 Instruction Type:Patient [...] tion Online using Patient Portal and [employer] Apps Indication:Nonsmoker Start:18-Jun-2021 Instruction Type:Patient Education Patient Instructions Indication:Nonsmoker Start:03-May-2021 Instruction Type:Provider Instructions for Treatment How to Access Health Informa tion Online using Patient Portal and [employer] Apps Indication:Nonsmoker Start:03-May-2021 Instruction Type:Patient Education Patient Instructions Indication:BMI 21.0-21.9, adult Start:11-Jan-2021 Instruction Type:Provider Instructions for Treatment How to Access Health Informa tion Online using Patient Portal and [employer] Apps Indication:BMI 21.0-21.9, adult Start:11-Jan-2021 Instruction Type:Patient Education Patient Instructions Indication:Nonsmoker Start:21-Sep-2020 Instruction Type:Provider Instructions for Treatment How to Access Health Informa tion Online using Patient Portal and [employer] Apps Indication:Nonsmoker Start:21-Sep-2020 Instruction Type:Patient Education Patient Instructions Indication:Nonsmoker Start:18-Sep-2020 Instruction Type:Provider Instructions for Treatment How to Access Health Informa tion Online using Patient Portal and [employer] Apps Indication:Nonsmoker Start:18-Sep-2020 Instruction Type:Patient Education Patient Instructions Indication:BMI 21.0-21.9, adult Start:08-Jun-2020 Instruction Type:Provider Instructions for Treatment How to Access Health Informa tion Online using Patient Portal and [employer] Indication:BMI 21.0-21.9, adult Start:08-Jun-2020 Instruction Type:Patient [...] tion Online using Patient Portal and [employer] Apps Indication:Nonsmoker Start:18-Jun-2021 Instruction Type:Patient Education Patient Instructions Indication:Nonsmoker Start:03-May-2021 Instruction Type:Provider Instructions for Treatment How to Access Health Informa tion Online using Patient Portal and [employer] Apps Indication:Nonsmoker Start:03-May-2021 Instruction Type:Patient Education Patient Instructions Indication:BMI 21.0-21.9, adult Start:11-Jan-2021 Instruction Type:Provider Instructions for Treatment How to Access Health Informa tion Online using Patient Portal and [employer] Indication:BMI 21.0-21.9, adult Start:11-Jan-2021 Instruction Type:Patient Education Patient Instructions Indication:Nonsmoker Start:21-Sep-2020 Instruction Type:Provider Instructions for Treatment How to Access Health Informa tion Online using Patient Portal and [employer] Indication:Nonsmoker Start:21-Sep-2020 Instruction Type:Patient Education Patient Instructions Indication:Nonsmoker Start:18-Sep-2020 Instruction Type:Provider Instructions for Treatment How to Access Health Informa tion Online using Patient Portal and [employer] Indication:Nonsmoker Start:18-Sep-2020 Instruction Type:Patient Education Patient Instructions Indication:BMI 21.0-21.9, adult Start:08-Jun-2020 Instruction Type:Provider Instructions for Treatment How to Access Health Informa tion Online using Patient Portal and [employer] Apps Indication:BMI 21.0-21.9, adult Start:08-Jun-2020 Instruction Type:Patient [...] tion Online using Patient Portal and [employer] Apps Indication:Nonsmoker Start:18-Jun-2021 Instruction Type:Patient Education Patient Instructions Indication:Nonsmoker Start:03-May-2021 Instruction Type:Provider Instructions for Treatment How to Access Health Informa tion Online using Patient Portal and [employer] Apps Indication:Nonsmoker Start:03-May-2021 Instruction Type:Patient Education Patient Instructions Indication:BMI 21.0-21.9, adult Start:11-Jan-2021 Instruction Type:Provider Instructions for Treatment How to Access Health Informa tion Online using Patient Portal and [employer] Apps Indication:BMI 21.0-21.9, adult Start:11-Jan-2021 Instruction Type:Patient Education Patient Instructions Indication:Nonsmoker Start:21-Sep-2020 Instruction Type:Provider Instructions for Treatment How to Access Health Informa tion Online using Patient Portal and [employer] Apps Indication:Nonsmoker Start:21-Sep-2020 Instruction Type:Patient Education Patient Instructions Indication:Nonsmoker Start:18-Sep-2020 Instruction Type:Provider Instructions for Treatment How to Access Health Informa tion Online using Patient Portal and [employer] Apps Indication:Nonsmoker Start:18-Sep-2020 Instruction Type:Patient Education Patient Instructions Indication:BMI 21.0-21.9, adult Start:08-Jun-2020 Instruction Type:Provider Instructions for Treatment How to Access Health Informa tion Online using Patient Portal and [employer] Apps Indication:BMI 21.0-21.9, adult Start:08-Jun-2020 Instruction Type:Patient [...] tion Online using Patient Portal and [employer] Apps Indication:Nonsmoker Start:18-Jun-2021 Instruction Type:Patient Education Patient Instructions Indication:Nonsmoker Start:03-May-2021 Instruction Type:Provider Instructions for Treatment How to Access Health Informa tion Online using Patient Portal and [employer] Apps Indication:Nonsmoker Start:03-May-2021 Instruction Type:Patient Education Patient Instructions Indication:BMI 21.0-21.9, adult Start:11-Jan-2021 Instruction Type:Provider Instructions for Treatment How to Access Health Informa tion Online using Patient Portal and [employer] Apps Indication:BMI 21.0-21.9, adult Start:11-Jan-2021 Instruction Type:Patient Education Patient Instructions Indication:Nonsmoker Start:21-Sep-2020 Instruction Type:Provider Instructions for Treatment How to Access Health Informa tion Online using Patient Portal and [employer] Apps Indication:Nonsmoker Start:21-Sep-2020 Instruction Type:Patient Education Patient Instructions Indication:Nonsmoker Start:18-Sep-2020 Instruction Type:Provider Instructions for Treatment How to Access Health Informa tion Online using Patient Portal and [employer] Apps Indication:Nonsmoker Start:18-Sep-2020 Instruction Type:Patient Education Patient Instructions Indication:BMI 21.0-21.9, adult Start:08-Jun-2020 Instruction Type:Provider Instructions for Treatment How to Access Health Informa tion Online using Patient Portal and [employer] Apps Indication:BMI 21.0-21.9, adult Start:08-Jun-2020 Instruction Type:Patient [...] 4 OR 5 VIEWS Remy Perez MD [address] [place] [address] Xr Imaging Referral ID Status Reason Start Date Expiration Date Visits Requested Visits Authorized [id number] Pending Review Auto-Generat ed Referral 11/01/2021 12/01/2022 1 1 [facility] for referral (narrative)* Diagnostic Procedure Only (Routine) - Closed Specialty Diagnoses / Procedures Referred By Contac t Referred To Contact XR IMAGING Diagnoses Left hand weakness Left hand pain Procedures XR HAND GENERAL 3V PA/LAT/OBL LEFT RADEX HAND MINIMUM 3 VIEWS Aziza Thompson PA-C [address] [place] [address] Xr Imaging Referral ID Status Reason Start Date Expiration Date V isits Requested Visits Authorized [id number] Closed Auto-Generate d Referral 11/21/2021 12/21/2022 1 1 [facility] for referral (narrative)* Diagnostic Procedure Only (Routine) - Authorized Specialty Diagnoses / Procedures Referred By Contac t Referred To Contact [facility] Diagnoses Encounter for screening mammogram for breast cancer Procedures LEONORA SCREENING SCREENING MAMMOGRAPHY BI 2-VIEW BREAST INC CAD Remy Perez MD [address] [place] [address] [facility] [address] [place] [address] Referral ID Status Reason Start Date Expiration Date Visits Requested Visits Authorized [id number] Authorized Auto-Generat ed Referral 11/20/2021 12/20/2022 1 1 [facility] for referral (narrative)* Diagnostic Procedure Only (Routine) - Closed Specialty Diagnoses / Procedures Referred By Contac t Referred To Contact [facility] Diagnoses Encounter for screening mammogram for breast cancer Procedures LEONORA SCREENING SCREENING MAMMOGRAPHY BI 2-VIEW BREAST INC CAD Remy Perez MD [address] [place] [address] [facility] [address] [employer] [place] [address] Referral ID Status Reason Start Date Expiration Date V isits Requested Visits Authorized [id number] Closed Auto-Generate d Referral 11/20/2021 12/20/2022 1 1 [facility] for referral (narrative)* Outpatient Procedure (Routine) - Closed Specialty Diagnoses / Procedures Referred By Contac t Referred To [facility] Diagnoses Preop examination Procedures ECG COMPLETE ECG ROUTINE ECG W/LEAST 12 LDS W/I&R Aziza Thompson PA-C [address] [place] [address] [facility] [address] [place] [address] Referral ID Status Reason Start Date Expiration Date V isits Requested Visits Authorized [id number] Closed Auto-Generate d Referral 01/27/2022 01/27/2023 1 1 [facility] for referral (narrative)* Diagnostic Procedure Only (Routine) - Closed Specialty Diagnoses / Procedures Referred By Contac t Referred To Contact XR IMAGING Diagnoses Acute pain of right shoulder Procedures XR SHOULDER GENERAL 3V OR MORE AP/TRUE AP/OTHER RIGHT RADEX SHOULDER COMPLETE MINIMUM 2 VIEWS Rupinder Goss APRN.CNP [address] [place] [address] Xr Imaging Referral ID Status Reason Start Date Expiration Date V isits Requested Visits Authorized [id number] Closed Auto-Generate d Referral 07/01/2022 07/31/2023 1 1 [facility] for referral (narrative)* Diagnostic Procedure Only (Routine) - Closed Specialty Diagnoses / Procedures Referred By Contac t Referred To Contact XR IMAGING Diagnoses Fall (on) (from) unspecified stairs and steps, subsequent encounter Procedures XR LUMBAR GENERAL 3V AP/LAT/L5-S1 RADEX SPINE LUMBOSACRAL 2/3 VIEWS Rupinder Goss APRN.CNP [address] [place] [address] Xr Imaging Referral ID Status Reason Start Date Expiration Date V isits Requested Visits Authorized [id number] Closed Auto-Generate d Referral 07/14/2022 08/13/2023 1 1 [facility] for referral (narrative)* Diagnostic Procedure Only (Urgent) - Closed Specialty Diagnoses / Procedures Referred By Contac t Referred To Contact XR IMAGING Diagnoses Acute pain of both knees Procedures XR KNEE GENERAL 4V AP BOTH/PA BOTH/LAT/MERC BILATERAL RADIOLOGIC EXAM KNEE COMPLETE 4/MORE VIEWS Keely Doll APRN.CNP [address] [place] [address] [place] [address] Referral ID Status Reason Start Date Expiration Date V isits Requested Visits Authorized [id number] Closed Auto-Generate d Referral 02/11/2023 03/12/2024 1 1 [facility] for referral (narrative)* Outpatient Procedure (Routine) - Closed Specialty Diagnoses / Procedures Referred By Contac t Referred To Contact [facility] Diagnoses Special screening for malignant neoplasms, colon Procedures COLONOSCOPY SCREENING COLONOSCOPY FLX DX W/COLLJ SPEC WHEN PFRMD Louise Newton PA-C [address] [place] [address] Hugh Coel MD [address] [facility] [place] [address] Referral ID Status Reason Start Date Expiration Date V isits Requested Visits Authorized [id number] Closed Auto-Generate d Referral 07/24/2022 10/22/2022 1 1 [facility] for referral (narrative)* Diagnostic Procedure Only (Routine) - Pending Review Specialty Diagnoses / Procedures Referred By Contac t Referred To Contact XR IMAGING Diagnoses Asymptomatic postmenopausal status Procedures DXA-AXIAL SKELETON Aziza Thompson PA-C [address] [place] [address] [place] [address] Referral ID Status Reason Start Date Expiration Date Visits Requested Visits Authorized [id number] Pending Review Auto-Generat ed Referral 07/23/2023 08/21/2024 1 1 * Consult, Test, Treat (Routine) - Pending Review Specialty Diagnoses / Procedures Referred By Contac t Referred To Contact Psychology Diagnoses SHAYLA (generalized anxiety disorder) Procedures CONSULT TO PSYCHOLOGY OFFICE/OUTPATIENT [facility] 60 MINUTES Aziza Thompson PA-C [address] [place] [id number] Referral ID Status Reason Start Date Expiration Date Visits Requested Visits Authorized [id number] Pending Review PCP Requested Referral 07/23/2023 07/22/2024 1 1 [facility] for referral (narrative)* Diagnostic Procedure Only (Urgent) - Closed Specialty Diagnoses / Procedures Referred By Contac t Referred To Contact XR IMAGING Diagnoses Acute pain of both knees Procedures XR KNEE GENERAL 4V AP BOTH/PA BOTH/LAT/MERC BILATERAL RADIOLOGIC EXAM KNEE COMPLETE 4/MORE VIEWS Keely Doll APRN.PATIENT ACCOUNTS COORDINATOR [address] [place] [id number] [place] [address] Referral ID Status Reason Start Date Expiration Date V isits Requested Visits Authorized [id number] Closed Auto-Generate d Referral 02/11/2023 03/12/2024 1 1 [facility] for referral (narrative)* Diagnostic Procedure Only (Routine) - Closed Specialty Diagnoses / Procedures Referred By Contac t Referred To Contact XR IMAGING Diagnoses Fall (on) (from) unspecified stairs and steps, subsequent encounter Procedures XR LUMBAR GENERAL 3V AP/LAT/L5-S1 RADEX SPINE LUMBOSACRAL 2/3 VIEWS Rupinder Goss APRN.PATIENT ACCOUNTS COORDINATOR [address] [place] [address] [place] [address] Referral ID Status Reason Start Date Expiration Date V isits Requested Visits Authorized [id number] Closed Auto-Generate d Referral 07/14/2022 08/13/2023 1 1 [facility] for referral (narrative)* Diagnostic Procedure Only (Routine) - Closed Specialty Diagnoses / Procedures Referred By Contac t Referred To Contact XR IMAGING Diagnoses Lumbar back pain Procedures XR LUMBAR GENERAL 3V AP/LAT/L5-S1 RADEX SPINE LUMBOSACRAL 2/3 VIEWS Aziza Thompson PA-C [address] [place] [address] [place] [address] Referral ID Status Reason Start Date Expiration Date V isits Requested Visits Authorized [id number] Closed Auto-Generate d Referral 05/16/2022 06/15/2023 1 1 [facility] for referral (narrative)* Diagnostic Procedure Only (Routine) - Closed Specialty Diagnoses / Procedures Referred By Contac t Referred To Contact XR IMAGING Diagnoses Positive FELICIA (antinuclear antibody) Procedures XR HIP GENERAL 3V PELV/AP/LAT LEFT RADEX HIP UNILATERAL WITH PELVIS 2-3 [place] [address] [place] [address] [place] [address] Referral ID Status Reason Start Date Expiration Date V isits Requested Visits Authorized [id number] Closed Auto-Generate d Referral 03/28/2022 04/27/2023 1 1 * Diagnostic Procedure Only (Routine) - Closed Specialty Diagnoses / Procedures Referred By Contac t Referred To Contact XR IMAGING Diagnoses Positive FELICIA (antinuclear antibody) Procedures XR KNEE GENERAL 4V AP BOTH/PA BOTH/LAT/MERC BILATERAL RADIOLOGIC EXAM KNEE COMPLETE 4/[place] [address] [place] [id number] [place] [address] Referral ID Status Reason Start Date Expiration Date V isits Requested Visits Authorized [id number] Closed Auto-Generate d Referral 03/28/2022 04/27/2023 1 1 [facility] for referral (narrative)* Diagnostic Procedure Only (Routine) - Closed Specialty Diagnoses / Procedures Referred By Contac t Referred To Contact XR IMAGING Diagnoses Acute pain of right shoulder Procedures XR SHOULDER GENERAL 3V OR MORE AP/TRUE AP/OTHER RIGHT RADEX SHOULDER COMPLETE MINIMUM 2 VIEWS Rupinder Goss APRN.CNP [address] [place] [address] [place] [address] Referral ID Status Reason Start Date Expiration Date V isits Requested Visits Authorized [id number] Closed Auto-Generate d Referral 07/01/2022 07/31/2023 1 1 [facility] for referral (narrative)* Diagnostic Procedure Only (Routine) - Closed Specialty Diagnoses / Procedures Referred By Contac t Referred To Contact XR IMAGING Diagnoses Left hand weakness Left hand pain Procedures XR HAND GENERAL 3V PA/LAT/OBL LEFT RADEX HAND MINIMUM 3 VIEWS Aziza Thompson PA-C [address] [place] [id number] [place] [address] Referral ID Status Reason Start Date Expiration Date V isits Requested Visits Authorized [id number] Closed Auto-Generate d Referral 11/21/2021 12/21/2022 1 1 [facility] for referral (narrative)* Diagnostic Procedure Only (Routine) - Closed Specialty Diagnoses / Procedures Referred By Contac t Referred To Contact XR IMAGING Diagnoses Left arm pain Left hand weakness Numbness and tingling of left upper extremity Procedures XR CERV OTHER 4V AP/LAT/OBL RADEX SPINE CERVICAL 4 OR 5 VIEWS Remy Perez MD [address] [place] [address] [place] [address] Referral ID Status Reason Start Date Expiration Date V isits Requested Visits Authorized [id number] Closed Auto-Generate d Referral 11/01/2021 12/01/2022 1 1 [facility] for referral (narrative)* Diagnostic Procedure Only (Routine) - Closed Specialty Diagnoses / Procedures Referred By Contac t Referred To Contact XR IMAGING Diagnoses Plantar fasciitis of right foot Procedures XR FOOT GENERAL 3V AP/LAT/OBL RIGHT RADEX FOOT COMPLETE MINIMUM 3 VIEWS Aziza Thompson PA-C [address] [place] [address] [place] [address] Referral ID Status Reason Start Date Expiration Date V isits Requested Visits Authorized [id number] Closed Auto-Generate d Referral 05/26/2024 06/25/2025 1 1 * Physical Therapy (Routine) - Authorized Specialty Diagnoses / Procedures Referred By Puneetac t Referred To Contact [facility] Diagnoses Plantar fasciitis of right foot Procedures CONSULT TO PHYSICAL THERAPY PHYSICAL THERAPY EVALUATION HIGH COMPLEX 45 MINS Aziza Thompson PA-C [address] [place] [address] [facility] [address] [place] [address] Referral ID Status Reason Start Date Expiration Date Visits Requested Visits Authorized [id number] Authorized Auto-Generat ed Referral 04/20/2024 04/19/2025 1 1 * Diagnostic Procedure Only (Routine) - Closed Specialty Diagnoses / Procedures Referred By Contac t Referred To Contact XR IMAGING Diagnoses Chronic left hip pain Procedures XR HIP GENERAL 3V PELV/AP/LAT LEFT RADEX HIP UNILATERAL WITH PELVIS 2-3 VIEWS Aziza Thompson PA-C [address] [place] [address] [place] [address] Referral ID Status Reason Start Date Expiration Date V isits Requested Visits Authorized [id number] Closed Auto-Generate d Referral 05/26/2024 06/25/2025 1 1 [facility] for referral (narrative)No reason for [facility] Diagnostic Procedure Only (Routine) - Closed Specialty Diagnoses / Procedures Referred By Shell t Referred To Contact [facility] Diagnoses Encounter for screening mammogram for breast cancer Procedures LEONORA SCREENING SCREENING MAMMOGRAPHY BI 2-VIEW BREAST INC CAD Remy Perez MD [address] [place] [address] [facility] [address] [place] [address] Referral ID Status Reason Start Date Expiration Date V isits Requested Visits Authorized [id number] Closed Auto-Generate d Referral 11/20/2021 12/20/2022 1 1 [facility] for visit Narrative* Outpatient Procedure (Routine) - Closed Specialty Diagnoses / Procedures Referred By Shell ortiz Referred To Contact [facility] Diagnoses Special screening for malignant neoplasms, colon Procedures COLONOSCOPY SCREENING COLONOSCOPY FLX DX W/COLLJ SPEC WHEN PFRMD Louise Newton PA-C [address] [place] [address] Hugh Cole MD [address] [facility] [place] [address] Referral ID Status Reason Start Date Expiration Date V isits Requested Visits Authorized [id number] Closed Auto-Generate d Referral 07/24/2022 10/22/2022 1 1 [facility] for visit Narrative* Diagnostic Procedure Only (Routine) - Closed Specialty Diagnoses / Procedures Referred By Puneetac t Referred To Contact XR IMAGING Diagnoses Asymptomatic postmenopausal status Procedures DXA-AXIAL SKELETON Aziza Thompson PA-C [address] [place] [address] [place] [address] Referral ID Status Reason Start Date Expiration Date V isits Requested Visits Authorized [id number] Closed Auto-Generate d Referral 07/23/2023 08/21/2024 1 1 [facility] for visit Narrative* Diagnostic Procedure Only (Urgent) - Closed Specialty Diagnoses / Procedures Referred By Puneetac t Referred To Contact XR IMAGING Diagnoses Acute pain of both knees Procedures XR KNEE GENERAL 4V AP BOTH/PA BOTH/LAT/MERC BILATERAL RADIOLOGIC EXAM KNEE COMPLETE 4/MORE VIEWS Keely Doll, COMMUNICATION ELECTRONIC TECHNICIAN.PATIENT ACCOUNTS COORDINATOR [address] [place] [address] [place] [address] Referral ID Status Reason Start Date Expiration Date V isits Requested Visits Authorized [id number] Closed Auto-Generate d Referral 02/11/2023 03/12/2024 1 1 [facility] for visit Narrative* Diagnostic Procedure Only (Routine) - Closed Specialty Diagnoses / Procedures Referred By Contac t Referred To Contact XR IMAGING Diagnoses Fall (on) (from) unspecified stairs and steps, subsequent encounter Procedures XR LUMBAR GENERAL 3V AP/LAT/L5-S1 RADEX SPINE LUMBOSACRAL 2/3 VIEWS Rupinder Goss, COMMUNICATION ELECTRONIC TECHNICIAN.PATIENT ACCOUNTS COORDINATOR [address] [place] [address] [place] [address] Referral ID Status Reason Start Date Expiration Date V isits Requested Visits Authorized [id number] Closed Auto-Generate d Referral 07/14/2022 08/13/2023 1 1 [facility] for visit Narrative* Diagnostic Procedure Only (Routine) - Closed Specialty Diagnoses / Procedures Referred By Contac t Referred To Contact [facility] IMAG[facility] Diagnoses Lumbar back pain Procedures XR LUMBAR GENERAL 3V AP/LAT/L5-S1 RADEX SPINE LUMBOSACRAL 2/3 VIEWS Aziza Thompson PA-C [address] [place] [address] [place] [address] Referral ID Status Reason Start Date Expiration Date V isits Requested Visits Authorized [id number] Closed Auto-Generate d Referral 05/16/2022 06/15/2023 1 1 [facility] for visit Narrative* Diagnostic Procedure Only (Routine) - Closed Specialty Diagnoses / Procedures Referred By Contac t Referred To Contact [facility] IMAG[facility] Diagnoses Positive FELICIA (antinuclear antibody) Procedures XR HIP GENERAL 3V PELV/AP/LAT LEFT RADEX HIP UNILATERAL WITH PELVIS 2-[place] [address] [place] [address] [place] [address] Referral ID Status Reason Start Date Expiration Date V isits Requested Visits Authorized [id number] Closed Auto-Generate d Referral 03/28/2022 04/27/2023 1 1 [facility] for visit Narrative* Diagnostic Procedure Only (Routine) - Closed Specialty Diagnoses / Procedures Referred By Contac t Referred To Contact [facility]R IMAGING Diagnoses Acute pain of right shoulder Procedures XR SHOULDER GENERAL 3V OR MORE AP/TRUE AP/OTHER RIGHT RADEX SHOULDER COMPLETE MINIMUM 2 VIEWS Rupinder Goss, EVELIN.PATIENT ACCOUNTS COORDINATOR [address] [place] [address] [place] [address] Referral ID Status Reason Start Date Expiration Date V isits Requested Visits Authorized [id number] Closed Auto-Generate d Referral 07/01/2022 07/31/2023 1 1 [facility] for visit Narrative* Diagnostic Procedure Only (Routine) - Closed Specialty Diagnoses / Procedures Referred By Contac t Referred To Contact XR IMAG[facility] Diagnoses Left hand weakness Left hand pain Procedures XR HAND GENERAL 3V PA/LAT/OBL LEFT RADEX HAND MINIMUM 3 VIEWS Aziza Thompson PA-C [address] [place] [address] [place] [address] Referral ID Status Reason Start Date Expiration Date V isits Requested Visits Authorized [id number] Closed Auto-Generate d Referral 11/21/2021 12/21/2022 1 1 [facility] for visit Narrative* Diagnostic Procedure Only (Routine) - Closed Specialty Diagnoses / Procedures Referred By Contac t Referred To Contact XR IMAGING Diagnoses Plantar fasciitis of right foot Procedures XR FOOT GENERAL 3V AP/LAT/OBL RIGHT RADEX FOOT COMPLETE MINIMUM 3 VIEWS Aziza Thompson PA-C [address] [place] [address] [place] [address] Referral ID Status Reason Start Date Expiration Date V isits Requested Visits Authorized [id number] Closed Auto-Generate d Referral 05/26/2024 06/25/2025 1 1 [facility] for visit Narrative* Diagnostic Procedure Only (Routine) - Closed Specialty Diagnoses / Procedures Referred By Contac t Referred To Contact [facility] Diagnoses Encounter for screening mammogram for breast cancer Procedures LEONORA SCREENING W HERNANDEZ SCREENING DIGITAL BREAST TOMOSYNTHESIS BI SCREENING MAMMOGRAPHY BI 2-VIEW BREAST INC CAD Remy Perez MD [address] [place] [address] Phone: tel: fax: [facility] [address] [place] [address] Referral ID Status Reason Start Date Expiration Date V isits Requested Visits Authorized [id number] Closed Auto-Generate d Referral 06/21/2024 07/21/2025 1 1 [facility] Family History No Family History Records FoundUnknown [...] tion Online using Patient Portal and [employer] Apps Indication:BMI 21.0-21.9, adult Start:08-Jun-2020 Instruction Type:Patient [...] for Visit Chief Complaint Admit Date SVT (CHRIS) September 19, 2024 1:58p m INT LAB ORDERS September 19, 2024 3:26p m Reason for Visit Admit Date Dyslipidemia September 19, 2024 1:58p m Generalized anxiety disorder September 19 1:58pm Hypertension, essential September 19, 2024 1 :58pm Palpitations September 19, 2024 1:58p m SVT (supraventricular tachycardia) September 19, 2024 1:58pm Chief Complaint SINUS/COUGHING N/V Reason for Visit Cough Sinusitis Chief Complaint N/V LUE ANESTHESIA/PARESTHESIA Chief Complaint LUE ANESTHESIA/PARES THESIA EXC NEUROMA BILAT FEET Chief Complaint FALL Chief Complaint Admit Date SVT (CHRIS) September 19, 2024 1:58p m Chief Complaint Admit Date SVT (CHRIS) September 19, 2024 1:58p m INT LAB ORDERS September 19, 2024 3:26p m PALP October 27, 2024 6:41 am PALP October 31, 2024 3:31 pm Advance Directives No Advanced Directives Records Found Advance Directive Response Recorded Date/ Time Name of Medical Power of Blanchard Grinder Operator MARQUITA October 12, 2021 4:15pm Living Will Yes October 12, 2021 4:15pm Power of Blanchard Grinder Operator Yes October 12 4:15pm Advance Directive Response Recorded Date/ Time Living Will Yes October 12, 2021 4:15pm Power of Blanchard Grinder Operator Yes October 12 4:15pm Name of Medical Power of Blanchard Grinder Operator MARQUITA October 12, 2021 4:15pm Advance Directive Response Recorded Date/ Time Living Will No January 14, 2022 11:20am Power of Blanchard Grinder Operator No December 11:20am Advance Directive Response Recorded Date/ Time Living Will No June 29, 2022 3:33pm Power of Blanchard Grinder Operator No June 29 3:33pm Reason for Referral Specialty Diagnoses / Procedures Referred By Contac t Referred To Contact [facility] Diagnoses Pain of left upper extremity Left hand weakness Numbness and tingling in left arm Cervical arthritis Procedures CONSULT TO PHYSICAL THERAPY PHYSICAL THERAPY EVALUATION HIGH COMPLEX 45 MINS Remy Perez MD [address] [place] [address] [facility] [address] [place] [address] Referral ID Status Reason Start Date Expiration Date Visits Requested Visits Authorized [id number] Pending Review Auto-Generat ed Referral 11/06/2021 11/06/2022 1 1 Specialty Diagnoses / Procedures Referred By Contac t Referred To Contact Rheumatology Diagnoses Left upper extremity numbness Left hand pain Left hand weakness Positive FELICIA (antinuclear antibody) Procedures CONSULT TO RHEUM/IMMUN DISEASE OFFICE/OUTPATIENT [facility] [facility] MDM 60-74 MINUTES Aziza Thompson PA-C [address] [place] [address] Referral ID Status Reason Start Date Expiration Date Visits Requested Visits Authorized [id number] Pending Review PCP Requested Referral 12/27/2021 12/27/2022 1 1 Specialty Diagnoses / Procedures Referred By Contac t Referred To Contact [facility] Diagnoses Positive FELICIA (antinuclear antibody) Procedures CONSULT TO PHYSICAL THERAPY PHYSICAL THERAPY EVALUATION HIGH COMPLEX [address] [place] [address] [place] [address] [facility] [address] [address] Referral ID Status Reason Start Date Expiration Date Visits Requested Visits Authorized [id number] Pending Review Auto-Generat ed Referral 03/28/2022 03/28/2023 1 1 Specialty Diagnoses / Procedures Referred By Contac t Referred To Contact XR IMAGING Diagnoses Positive FELICIA (antinuclear antibody) Procedures XR HIP GENERAL 3V PELV/AP/LAT LEFT RADEX HIP UNILATERAL WITH PELVIS 2-3 [place] [address] [place] [address] Xr Imaging Referral ID Status Reason Start Date Expiration Date Visits Requested Visits Authorized [id number] Pending Review Auto-Generat ed Referral 03/28/2022 04/27/2023 1 1 Specialty Diagnoses / Procedures Referred By Contac t Referred To Contact XR IMAGING Diagnoses Positive FELICIA (antinuclear antibody) Procedures XR KNEE GENERAL 4V AP BOTH/PA BOTH/LAT/MERC BILATERAL RADIOLOGIC EXAM KNEE COMPLETE 4/[place] [address] [place] [phone] Xr Imaging Referral ID Status Reason Start Date Expiration Date Visits Requested Visits Authorized [id number] Pending Review Auto-Generat ed Referral 03/28/2022 04/27/2023 1 1 Specialty Diagnoses / Procedures Referred By Contac t Referred To Contact US IMAGING Diagnoses Positive FELICIA (antinuclear antibody) Procedures US HAND/WRIST SYNOVIAL SCREEN LT US COMPL JOINT R-T W/[place] [address] [place] [address] Us Imaging Referral ID Status Reason Start Date Expiration Date Visits Requested Visits Authorized [id number] Pending Review Auto-Generat ed Referral 03/28/2022 04/27/2023 1 1 Specialty Diagnoses / Procedures Referred By Contac t Referred To Contact US IMAGING Diagnoses Positive FELICIA (antinuclear antibody) Procedures US HAND/WRIST SYNOVIAL SCREEN RT US COMPL JOINT R-T W/[place] [id number] [place] [phone] Us Imaging Referral ID Status Reason Start Date Expiration Date Visits Requested Visits Authorized [id number] Pending Review Auto-Generat ed Referral 03/28/2022 04/27/2023 1 1 Specialty Diagnoses / Procedures Referred By Contac t Referred To Contact [facility] Diagnoses Lumbar back pain Procedures CONSULT TO PHYSICAL THERAPY PHYSICAL THERAPY EVALUATION HIGH COMPLEX 45 MINS Aziza Thompson PA-C [address] [place] [address] [facility] [address] [place] [address] Referral ID Status Reason Start Date Expiration Date Visits Requested Visits Authorized [id number] Pending Review Auto-Generat ed Referral 05/16/2022 05/16/2023 1 1 Specialty Diagnoses / Procedures Referred By Contac t Referred To Contact XR IMAGING Diagnoses Lumbar back pain Procedures XR LUMBAR GENERAL 3V AP/LAT/L5-S1 RADEX SPINE LUMBOSACRAL 2/3 VIEWS Aziza Thompson PA-C [address] [place] [address] Xr Imaging Referral ID Status Reason Start Date Expiration Date V isits Requested Visits Authorized [id number] Closed Auto-Generate d Referral 05/16/2022 06/15/2023 1 1 Specialty Diagnoses / Procedures Referred By Contac t Referred To Contact CT IMAGING Diagnoses Bone lesion Abnormal x-ray Procedures CT PELVIS WO IVCON CT PELVIS W/O CONTRAST MATERIAL Aziza Thompson PA-C [address] [place] [address] Ct Imaging Referral ID Status Reason Start Date Expiration Date Visits Requested Visits Authorized [id number] Authorized Auto-Generat ed Referral 05/19/2022 06/18/2023 1 1 Specialty Diagnoses / Procedures Referred By Contac t Referred To Contact [facility] Diagnoses Lumbar back pain Procedures PT REHAB FOLLOW UP ORDER PT REHAB FOLLOW UP ORDER THERAPEUTIC EXERCISES RE, EA 15 MIN. Jeyson Norman, PT [facility] [address] [place] [address] Referral ID Status Reason Start Date Expiration Date Visits Requested Visits Authorized [id number] Pending Review PCP Requested Referral Auto-Generate d Referral 05/21/2022 08/19/2022 1 1 Specialty Diagnoses / Procedures Referred By Contac t Referred To Contact General Surgery Diagnoses Screening for colon cancer Procedures CONSULT TO GENERAL SURGERY OFFICE/OUTPATIENT [facility] 60-74 MINUTES Aziza Thompson PA-C [address] [place] [address] Referral ID Status Reason Start Date Expiration Date Visits Requested Visits Authorized [id number] Pending Review PCP Requested Referral 06/19/2022 06/19/2023 1 1 Specialty Diagnoses / Procedures Referred By Contac t Referred To Contact Gynecology Diagnoses Encounter for gynecological examination without abnormal finding Procedures CONSULT TO GYNECOLOGY OFFICE/OUTPATIENT [facility] 60-74 MINUTES Aziza Thompson PA-C [address] [place] [address] Referral ID Status Reason Start Date Expiration Date Visits Requested Visits Authorized [id number] Pending Review PCP Requested Referral Auto-Generate d Referral 06/19/2022 06/19/2023 1 1 Specialty Diagnoses / Procedures Referred By Contac t Referred To Contact Orthopedics Diagnoses Acute pain of right shoulder Procedures CONSULT TO ORTHOPAEDICS OFFICE/OUTPATIENT [facility] 60-74 MINUTES Rupinder Goss APRN.PATIENT ACCOUNTS COORDINATOR [address] [place] [address] Referral ID Status Reason Start Date Expiration Date Visits Requested Visits Authorized [id number] Pending Review PCP Requested Referral 07/03/2022 07/03/2023 1 1 Specialty Diagnoses / Procedures Referred By Contac t Referred To Contact [facility] Diagnoses Fall (on) (from) unspecified stairs and steps, subsequent encounter Procedures CONSULT TO PHYSICAL THERAPY PHYSICAL THERAPY EVALUATION HIGH COMPLEX 45 MINS Rupinder Goss APRN.PATIENT ACCOUNTS COORDINATOR [address] [place] [address] [facility] [address] [place] [address] Referral ID Status Reason Start Date Expiration Date Visits Requested Visits Authorized [id number] Pending Review Auto-Generat ed Referral 08/18/2022 08/18/2023 1 1 Specialty Diagnoses / Procedures Referred By Contac t Referred To Contact [facility] Diagnoses Fall (on) (from) unspecified stairs and steps, subsequent encounter Procedures PT REHAB FOLLOW UP ORDER THERAPEUTIC EXERCISES RE, EA 15 MIN. Quoc Mccracken, PT [address] [place] [address] [facility] [address] [place] [address] Referral ID Status Reason Start Date Expiration Date Visits Requested Visits Authorized [id number] Pending Review PCP Requested Referral Auto-Generate d Referral 08/29/2022 11/27/2022 1 1 Specialty Diagnoses / Procedures Referred By Contac t Referred To Contact CT IMAGING Diagnoses Bone lesion Abnormal x-ray Procedures CT PELVIS WO IVCON CT PELVIS W/O CONTRAST MATERIAL Aziza Thompson PA-C [address] [place] [address] Ct Imaging [facility] Referral ID Status Reason Start Date Expiration Date V isits Requested Visits Authorized [id number] Closed Auto-Generate d Referral 05/19/2022 06/18/2023 1 1 Specialty Diagnoses / Procedures Referred By Contac t Referred To Contact MR IMAGING Diagnoses Radiculopathy of lumbar region Chronic midline low back pain without sciatica Decreased reflex Procedures MRI LUMBAR SPINE WO IVCON MRI LUMBAR SPINE WO IVCON MRI SPINAL CANAL LUMBAR W/O CONTRAST MATERIAL Aziza Thompson PA-C [address] [place] [address] Mr Imaging [facility] Referral ID Status Reason Start Date Expiration Date Visits Requested Visits Authorized [id number] Pending Review Auto-Generat ed Referral 11/19/2023 12/18/2024 1 1 Referral ID Status Reason Start Date Expiration Date V isits Requested Visits Authorized [id number] Closed Auto-Generate d Referral 12/17/2023 02/13/2024 1 1 Specialty Diagnoses / Procedures Referred By Contac t Referred To Contact [facility] Diagnoses Lumbar back pain Spondylosis of lumbar region without myelopathy or radiculopathy Procedures CONSULT TO PHYSICAL THERAPY PHYSICAL THERAPY EVALUATION HIGH COMPLEX 45 MINS Remy Perez MD [address] [place] [address] [facility] [address] [address] Referral ID Status Reason Start Date Expiration Date Visits Requested Visits Authorized [id number] Authorized Auto-Generat ed Referral 04/20/2023 04/19/2024 1 1 Specialty Diagnoses / Procedures Referred By Contac t Referred To Contact Pain Management Diagnoses Lumbar back pain Spondylosis of lumbar region without myelopathy or radiculopathy Procedures CONSULT TO PAIN MGT OFFICE/OUTPATIENT [facility] MDM 60 MINUTES Remy Perez MD [address] [place] [address] Referral ID Status Reason Start Date Expiration Date Visits Requested Visits Authorized [id number] Authorized PCP Requested Referral 12/23/2023 12/22/2024 1 1 Specialty Diagnoses / Procedures Referred By Contac t Referred To Contact [facility] Diagnoses Lumbar back pain Spondylosis of lumbar region without myelopathy or radiculopathy Procedures PT REHAB FOLLOW UP ORDER THERAPEUTIC EXERCISES RE, EA 15 MIN. Quoc Mccracken, PT [address] [place] [address] [facility] [address] [address] Referral ID Status Reason Start Date Expiration Date Visits Requested Visits Authorized [id number] New Request PCP Requested Referral Auto-Generate d Referral 01/21/2024 04/20/2024 1 1 Specialty Diagnoses / Procedures Referred By Contac t Referred To Contact [facility] Diagnoses Lumbar back pain Procedures PT REHAB FOLLOW UP ORDER THERAPEUTIC EXERCISES RE, EA 15 MIN. Quoc Mccracken, PT [address] [place] [address] [facility] [address] [address] Referral ID Status Reason Start Date Expiration Date Visits Requested Visits Authorized [id number] New Request PCP Requested Referral Auto-Generate d [...] this informatio n is protected by the Federal Confidentiality of Alcohol and Drug Abuse Patient Records regulations: The Federal rules restrict any use of the information to criminally investigate or prosecute any alcohol or drug abuse patient.[facility] the event this information is protected by the Federal Confidentiality of Alcohol and Drug Abuse Patient Records regulations: The Federal rules restrict any use of the information to criminally investigate or prosecute any alcohol or drug abuse patient.[facility] the event this information is protected by the Federal Confidentiality of Alcohol and Drug Abuse Patient Records regulations: The Federal rules restrict any use of the information to criminally investigate or prosecute any alcohol or drug abuse patient.[facility] the event this information is protected by the Federal Confidentiality of Alcohol and Drug Abuse Patient Records regulations: The Federal rules restrict any use of the information to criminally investigate or prosecute any alcohol or drug abuse patient.[facility] the event this information is protected by the Federal Confidentiality of Alcohol and Drug Abuse Patient Records regulations: The Federal rules restrict any use of the information to criminally investigate or prosecute any alcohol or drug abuse patient.[facility] the event this information is protected by the Federal Confidentiality of Alcohol and Drug Abuse Patient Records regulations: The Federal rules restrict any use of the information to criminally investigate or prosecute any alcohol or drug abuse patient.[facility]In the event this information is protected by the Federal Confidentiality of Alcohol and Drug Abuse Patient Records regulations: The Federal rules restrict any use of the information to criminally investigate or prosecute any alcohol or drug abuse patient.[facility]In the event this information is protected by the Federal Confidentiality of Alcohol and Drug Abuse Patient Records regulations: The Federal rules restrict any use of the information to criminally investigate or prosecute any alcohol or drug abuse patient.[facility]In the event this information is protected by the Federal Confidentiality of Alcohol and Drug Abuse Patient Records regulations: The Federal rules restrict any use of the information to criminally investigate or prosecute any alcohol or drug abuse patient.[facility]In the event this information is protected by the Federal Confidentiality of Alcohol and Drug Abuse Patient Records regulations: The Federal rules restrict any use of the information to criminally investigate or prosecute any alcohol or drug abuse patient.[facility]In the event this information is protected by the Federal Confidentiality of Alcohol and Drug Abuse Patient Records regulations: The Federal rules restrict any use of the information to criminally investigate or prosecute any alcohol or drug abuse patient.[facility]In the event this information is protected by the Federal Confidentiality of Alcohol and Drug Abuse Patient Records regulations: The Federal rules restrict any use of the information to criminally investigate or prosecute any alcohol or drug abuse patient.[facility]In the event this information is protected by the Federal Confidentiality of Alcohol and Drug Abuse Patient Records regulations: The Federal rules restrict any use of the information to criminally investigate or prosecute any alcohol or drug abuse patient.[facility]In the event this information is protected by the Federal Confidentiality of Alcohol and Drug Abuse Patient Records regulations: The Federal rules restrict any use of the information to criminally investigate or prosecute any alcohol or drug abuse patient.[facility]In the event this information is protected by the Federal Confidentiality of Alcohol and Drug Abuse Patient Records regulations: The Federal rules restrict any use of the information to criminally investigate or prosecute any alcohol or drug abuse patient.[facility]In the event this information is protected by the Federal Confidentiality of Alcohol and Drug Abuse Patient Records regulations: The Federal rules restrict any use of the information to criminally investigate or prosecute any alcohol or drug abuse patient.[facility]In the event this information is protected by the Federal Confidentiality of Alcohol and Drug Abuse Patient Records regulations: The Federal rules restrict any use of the information to criminally investigate or prosecute any alcohol or drug abuse patient.[facility]In the event this information is protected by the Federal Confidentiality of Alcohol and Drug Abuse Patient Records regulations: The Federal rules restrict any use of the information to criminally investigate or prosecute any alcohol or drug abuse patient.[facility]In the event this information is protected by the Federal Confidentiality of Alcohol and Drug Abuse Patient Records regulations: The Federal rules restrict any use of the information to criminally investigate or prosecute any alcohol or drug abuse patient.[facility]In the event this information is protected by the Federal Confidentiality of Alcohol and Drug Abuse Patient Records regulations: The Federal rules restrict any use of the information to criminally investigate or prosecute any alcohol or drug abuse patient.[facility]In the event this information is protected by the Federal Confidentiality of Alcohol and Drug Abuse Patient Records regulations: The Federal rules restrict any use of the information to criminally investigate or prosecute any alcohol or drug abuse patient.[facility]In the event this information is protected by the Federal Confidentiality of Alcohol and Drug Abuse Patient Records regulations: The Federal rules restrict any use of the information to criminally investigate or prosecute any alcohol or drug abuse patient.[facility]In the event this information is protected by the Federal Confidentiality of Alcohol and Drug Abuse Patient Records regulations: The Federal rules restrict any use of the information to criminally investigate or prosecute any alcohol or drug abuse patient.[facility]In the event this information is protected by the Federal Confidentiality of Alcohol and Drug Abuse Patient Records regulations: The Federal rules restrict any use of the information to criminally investigate or prosecute any alcohol or drug abuse patient.[facility]In the event this information is protected by the Federal Confidentiality of Alcohol and Drug Abuse Patient Records regulations: The Federal rules restrict any use of the information to criminally investigate or prosecute any alcohol or drug abuse patient.[facility]In the event this information is protected by the Federal Confidentiality of Alcohol and Drug Abuse Patient Records regulations: The Federal rules restrict any use of the information to criminally investigate or prosecute any alcohol or drug abuse patient.[facility]In the event this information is protected by the Federal Confidentiality of Alcohol and Drug Abuse Patient Records regulations: The Federal rules restrict any use of the information to criminally investigate or prosecute any alcohol or drug abuse patient.[facility]In the event this information is protected by the Federal Confidentiality of Alcohol and Drug Abuse Patient Records regulations: The Federal rules restrict any use of the information to criminally investigate or prosecute any alcohol or drug abuse patient.[facility]In the event this information is protected by the Federal Confidentiality of Alcohol and Drug Abuse Patient Records regulations: The Federal rules restrict any use of the information to criminally investigate or prosecute any alcohol or drug abuse patient.[facility]In the event this information is protected by the Federal Confidentiality of Alcohol and Drug Abuse Patient Records regulations: The Federal rules restrict any use of the information to criminally investigate or prosecute any alcohol or drug abuse patient.[facility]In the event this information is protected by the Federal Confidentiality of Alcohol and Drug Abuse Patient Records regulations: The Federal rules restrict any use of the information to criminally investigate or prosecute any alcohol or drug abuse patient.[facility]In the event this information is protected by the Federal Confidentiality of Alcohol and Drug Abuse Patient Records regulations: The Federal rules restrict any use of the information to criminally investigate or prosecute any alcohol or drug abuse patient.[facility]In the event this information is protected by the Federal Confidentiality of Alcohol and Drug Abuse Patient Records regulations: The Federal rules restrict any use of the information to criminally investigate or prosecute any alcohol or drug abuse patient.[facility]In the event this information is protected by the Federal Confidentiality of Alcohol and Drug Abuse Patient Records regulations: The Federal rules restrict any use of the information to criminally investigate or prosecute any alcohol or drug abuse patient.[facility]In the event this information is protected by the Federal Confidentiality of Alcohol and Drug Abuse Patient Records regulations: The Federal rules restrict any use of the information to criminally investigate or prosecute any alcohol or drug abuse patient.[facility]In the event this information is protected by the Federal Confidentiality of Alcohol and Drug Abuse Patient Records regulations: The Federal rules restrict any use of the information to criminally investigate or prosecute any alcohol or drug abuse patient.[facility]In the event this information is protected by the Federal Confidentiality of Alcohol and Drug Abuse Patient Records regulations: The Federal rules restrict any use of the information to criminally investigate or prosecute any alcohol or drug abuse patient.[facility]In the event this information is protected by the Federal Confidentiality of Alcohol and Drug Abuse Patient Records regulations: The Federal rules restrict any use of the information to criminally investigate or prosecute any alcohol or drug abuse patient.[facility]In the event this information is protected by the Federal Confidentiality of Alcohol and Drug Abuse Patient Records regulations: The Federal rules restrict any use of the information to criminally investigate or prosecute any alcohol or drug abuse patient.[facility]In the event this information is protected by the Federal Confidentiality of Alcohol and Drug Abuse Patient Records regulations: The Federal rules restrict any use of the information to criminally investigate or prosecute any alcohol or drug abuse patient.[facility]In the event this information is protected by the Federal Confidentiality of Alcohol and Drug Abuse Patient Records regulations: The Federal rules restrict any use of the information to criminally investigate or prosecute any alcohol or drug abuse patient.[facility]In the event this information is protected by the Federal Confidentiality of Alcohol and Drug Abuse Patient Records regulations: The Federal rules restrict any use of the information to criminally investigate or prosecute any alcohol or drug abuse patient.[facility]In the event this information is protected by the Federal Confidentiality of Alcohol and Drug Abuse Patient Records regulations: The Federal rules restrict any use of the information to criminally investigate or prosecute any alcohol or drug abuse patient.[facility]In the event this information is protected by the Federal Confidentiality of Alcohol and Drug Abuse Patient Records regulations: The Federal rules restrict any use of the information to criminally investigate or prosecute any alcohol or drug abuse patient.[facility]In the event this information is protected by the Federal Confidentiality of Alcohol and Drug Abuse Patient Records regulations: The Federal rules restrict any use of the information to criminally investigate or prosecute any alcohol or drug abuse patient.[facility]In the event this information is protected by the Federal Confidentiality of Alcohol and Drug Abuse Patient Records regulations: The Federal rules restrict any use of the information to criminally investigate or prosecute any alcohol or drug abuse patient.[facility] the event this information is protected by the Federal Confidentiality of Alcohol and Drug Abuse Patient Records regulations: The Federal rules restrict any use of the information to criminally investigate or prosecute any alcohol or drug abuse patient.[facility]In the event this information is protected by the Federal Confidentiality of Alcohol and Drug Abuse Patient Records regulations: The Federal rules restrict any use of the information to criminally investigate or prosecute any alcohol or drug abuse patient.[facility] WestIn the event this information is protected by the Federal Confidentiality of Alcohol and Drug Abuse Patient Records regulations: The Federal rules restrict any use of the information to criminally investigate or prosecute any alcohol or drug abuse patient.[facility]In the event this information is protected by the Federal Confidentiality of Alcohol and Drug Abuse Patient Records regulations: The Federal rules restrict any use of the information to criminally investigate or prosecute any alcohol or drug abuse patient.[facility]In the event this information is protected by the Federal Confidentiality of Alcohol and Drug Abuse Patient Records regulations: The Federal rules restrict any use of the information to criminally investigate or prosecute any alcohol or drug abuse patient.[facility]In the event this information is protected by the Federal Confidentiality of Alcohol and Drug Abuse Patient Records regulations: The Federal rules restrict any use of the information to criminally investigate or prosecute any alcohol or drug abuse patient.[facility]In the event this information is protected by the Federal Confidentiality of Alcohol and Drug Abuse Patient Records regulations: The Federal rules restrict any use of the information to criminally investigate or prosecute any alcohol or drug abuse patient.[facility]In the event this information is protected by the Federal Confidentiality of Alcohol and Drug Abuse Patient Records regulations: The Federal rules restrict any use of the information to criminally investigate or prosecute any alcohol or drug abuse patient.[facility]In the event this information is protected by the Federal Confidentiality of Alcohol and Drug Abuse Patient Records regulations: The Federal rules restrict any use of the information to criminally investigate or prosecute any alcohol or drug abuse patient.[facility]In the event this information is protected by the Federal Confidentiality of Alcohol and Drug Abuse Patient Records regulations: The Federal rules restrict any use of the information to criminally investigate or prosecute any alcohol or drug abuse patient.[facility]In the event this information is protected by the Federal Confidentiality of Alcohol and Drug Abuse Patient Records regulations: The Federal rules restrict any use of the information to criminally investigate or prosecute any alcohol or drug abuse patient.[facility]In the event this information is protected by the Federal Confidentiality of Alcohol and Drug Abuse Patient Records regulations: The Federal rules restrict any use of the information to criminally investigate or prosecute any alcohol or drug abuse patient.[facility]In the event this information is protected by the Federal Confidentiality of Alcohol and Drug Abuse Patient Records regulations: The Federal rules restrict any use of the information to criminally investigate or prosecute any alcohol or drug abuse patient.[facility]In the event this information is protected by the Federal Confidentiality of Alcohol and Drug Abuse Patient Records regulations: The Federal rules restrict any use of the information to criminally investigate or prosecute any alcohol or drug abuse patient.[facility]In the event this information is protected by the Federal Confidentiality of Alcohol and Drug Abuse Patient Records regulations: The Federal rules restrict any use of the information to criminally investigate or prosecute any alcohol or drug abuse patient.[facility]In the event this information is protected by the Federal Confidentiality of Alcohol and Drug Abuse Patient Records regulations: The Federal rules restrict any use of the information to criminally investigate or prosecute any alcohol or drug abuse patient.[facility]In the event this information is protected by the Federal Confidentiality of Alcohol and Drug Abuse Patient Records regulations: The Federal rules restrict any use of the information to criminally investigate or prosecute any alcohol or drug abuse patient.[facility]In the event this information is protected by the Federal Confidentiality of Alcohol and Drug Abuse Patient Records regulations: The Federal rules restrict any use of the information to criminally investigate or prosecute any alcohol or drug abuse patient.[facility]In the event this information is protected by the Federal Confidentiality of Alcohol and Drug Abuse Patient Records regulations: The Federal rules restrict any use of the information to criminally investigate or prosecute any alcohol or drug abuse patient.[facility]In the event this information is protected by the Federal Confidentiality of Alcohol and Drug Abuse Patient Records regulations: The Federal rules restrict any use of the information to criminally investigate or prosecute any alcohol or drug abuse patient.[facility]In the event this information is protected by the Federal Confidentiality of Alcohol and Drug Abuse Patient Records regulations: The Federal rules restrict any use of the information to criminally investigate or prosecute any alcohol or drug abuse patient.[facility]In the event this information is protected by the Federal Confidentiality of Alcohol and Drug Abuse Patient Records regulations: The Federal rules restrict any use of the information to criminally investigate or prosecute any alcohol or drug abuse patient.[facility]In the event this information is protected by the Federal Confidentiality of Alcohol and Drug Abuse Patient Records regulations: The Federal rules restrict any use of the information to criminally investigate or prosecute any alcohol or drug abuse patient.[facility]In the event this information is protected by the Federal Confidentiality of Alcohol and Drug Abuse Patient Records regulations: The Federal rules restrict any use of the information to criminally investigate or prosecute any alcohol or drug abuse patient.[facility]In the event this information is protected by the Federal Confidentiality of Alcohol and Drug Abuse Patient Records regulations: The Federal rules restrict any use of the information to criminally investigate or prosecute any alcohol or drug abuse patient.[facility]In the event this information is protected by the Federal Confidentiality of Alcohol and Drug Abuse Patient Records regulations: The Federal rules restrict any use of the information to criminally investigate or prosecute any alcohol or drug abuse patient.[facility]In the event this information is protected by the Federal Confidentiality of Alcohol and Drug Abuse Patient Records regulations: The Federal rules restrict any use of the information to criminally investigate or prosecute any alcohol or drug abuse patient.[facility]In the event this information is protected by the Federal Confidentiality of Alcohol and Drug Abuse Patient Records regulations: The Federal rules restrict any use of the information to criminally investigate or prosecute any alcohol or drug abuse patient.[facility]In the event this information is protected by the Federal Confidentiality of Alcohol and Drug Abuse Patient Records regulations: The Federal rules restrict any use of the information to criminally investigate or prosecute any alcohol or drug abuse patient.[facility]In the event this information is protected by the Federal Confidentiality of Alcohol and Drug Abuse Patient Records regulations: The Federal rules restrict any use of the information to criminally investigate or prosecute any alcohol or drug abuse patient.[facility]In the event this information is protected by the Federal Confidentiality of Alcohol and Drug Abuse Patient Records regulations: The Federal rules restrict any use of the information to criminally investigate or prosecute any alcohol or drug abuse patient.[facility]In the event this information is protected by the Federal Confidentiality of Alcohol and Drug Abuse Patient Records regulations: The Federal rules restrict any use of the information to criminally investigate or prosecute any alcohol or drug abuse patient.[facility]In the event this information is protected by the Federal Confidentiality of Alcohol and Drug Abuse Patient Records regulations: The Federal rules restrict any use of the information to criminally investigate or prosecute any alcohol or drug abuse patient.[facility]In the event this information is protected by the Federal Confidentiality of Alcohol and Drug Abuse Patient Records regulations: The Federal rules restrict any use of the information to criminally investigate or prosecute any alcohol or drug abuse patient.[facility]In the event this information is protected by the Federal Confidentiality of Alcohol and Drug Abuse Patient Records regulations: The Federal rules restrict any use of the information to criminally investigate or prosecute any alcohol or drug abuse patient.[facility]In the event this information is protected by the Federal Confidentiality of Alcohol and Drug Abuse Patient Records regulations: The Federal rules restrict any use of the information to criminally investigate or prosecute any alcohol or drug abuse patient.[facility]In the event this information is protected by the Federal Confidentiality of Alcohol and Drug Abuse Patient Records regulations: The Federal rules restrict any use of the information to criminally investigate or prosecute any alcohol or drug abuse patient.[facility]In the event this information is protected by the Federal Confidentiality of Alcohol and Drug Abuse Patient Records regulations: The Federal rules restrict any use of the information to criminally investigate or prosecute any alcohol or drug abuse patient.[facility]In the event this information is protected by the Federal Confidentiality of Alcohol and Drug Abuse Patient Records regulations: The Federal rules restrict any use of the information to criminally investigate or prosecute any alcohol or drug abuse patient.[facility]In the event this information is protected by the Federal Confidentiality of Alcohol and Drug Abuse Patient Records regulations: The Federal rules restrict any use of the information to criminally investigate or prosecute any alcohol or drug abuse patient.[facility]In the event this information is protected by the Federal Confidentiality of Alcohol and Drug Abuse Patient Records regulations: The Federal rules restrict any use of the information to criminally investigate or prosecute any alcohol or drug abuse patient.[facility]In the event this information is protected by the Federal Confidentiality of Alcohol and Drug Abuse Patient Records regulations: The Federal rules restrict any use of the information to criminally investigate or prosecute any alcohol or drug abuse patient.[facility]In the event this information is protected by the Federal Confidentiality of Alcohol and Drug Abuse Patient Records regulations: The Federal rules restrict any use of the information to criminally investigate or prosecute any alcohol or drug abuse patient.[facility]In the event this information is protected by the Federal Confidentiality of Alcohol and Drug Abuse Patient Records regulations: The Federal rules restrict any use of the information to criminally investigate or prosecute any alcohol or drug abuse patient.[facility]In the event this information is protected by the Federal Confidentiality of Alcohol and Drug Abuse Patient Records regulations: The Federal rules restrict any use of the information to criminally investigate or prosecute any alcohol or drug abuse patient.[facility]In the event this information is protected by the Federal Confidentiality of Alcohol and Drug Abuse Patient Records regulations: The Federal rules restrict any use of the information to criminally investigate or prosecute any alcohol or drug abuse patient.[facility]In the event this information is protected by the Federal Confidentiality of Alcohol and Drug Abuse Patient Records regulations: The Federal rules restrict any use of the information to criminally investigate or prosecute any alcohol or drug abuse patient.[facility]In the event this information is protected by the Federal Confidentiality of Alcohol and Drug Abuse Patient Records regulations: The Federal rules restrict any use of the information to criminally investigate or prosecute any alcohol or drug abuse patient.[facility]In the event this information is protected by the Federal Confidentiality of Alcohol and Drug Abuse Patient Records regulations: The Federal rules restrict any use of the information to criminally investigate or prosecute any alcohol or drug abuse patient.[facility]In the event this information is protected by the Federal Confidentiality of Alcohol and Drug Abuse Patient Records regulations: The Federal rules restrict any use of the information to criminally investigate or prosecute any alcohol or drug abuse patient.[facility] the event this information is protected by the Federal Confidentiality of Alcohol and Drug Abuse Patient Records regulations: The Federal rules restrict any use of the information to criminally investigate or prosecute any alcohol or drug abuse patient.[facility]In the event this information is protected by the Federal Confidentiality of Alcohol and Drug Abuse Patient Records regulations: The Federal rules restrict any use of the information to criminally investigate or prosecute any alcohol or drug abuse patient.[facility]In the event this information is protected by the Federal Confidentiality of Alcohol and Drug Abuse Patient Records regulations: The Federal rules restrict any use of the information to criminally investigate or prosecute any alcohol or drug abuse patient.[facility]In the event this information is protected by the Federal Confidentiality of Alcohol and Drug Abuse Patient Records regulations: The Federal rules restrict any use of the information to criminally investigate or prosecute any alcohol or drug abuse patient.[facility]In the event this information is protected by the Federal Confidentiality of Alcohol and Drug Abuse Patient Records regulations: The Federal rules restrict any use of the information to criminally investigate or prosecute any alcohol or drug abuse patient.[facility]In the event this information is protected by the Federal Confidentiality of Alcohol and Drug Abuse Patient Records regulations: The Federal rules restrict any use of the information to criminally investigate or prosecute any alcohol or drug abuse patient.[facility]In the event this information is protected by the Federal Confidentiality of Alcohol and Drug Abuse Patient Records regulations: The Federal rules restrict any use of the information to criminally investigate or prosecute any alcohol or drug abuse patient.[facility]In the event this information is protected by the Federal Confidentiality of Alcohol and Drug Abuse Patient Records regulations: The Federal rules restrict any use of the information to criminally investigate or prosecute any alcohol or drug abuse patient.[facility]In the event this information is protected by the Federal Confidentiality of Alcohol and Drug Abuse Patient Records regulations: The Federal rules restrict any use of the information to criminally investigate or prosecute any alcohol or drug abuse patient.[facility]In the event this information is protected by the Federal Confidentiality of Alcohol and Drug Abuse Patient Records regulations: The Federal rules restrict any use of the information to criminally investigate or prosecute any alcohol or drug abuse patient.[facility]In the event this information is protected by the Federal Confidentiality of Alcohol and Drug Abuse Patient Records regulations: The Federal rules restrict any use of the information to criminally investigate or prosecute any alcohol or drug abuse patient.[facility]In the event this information is protected by the Federal Confidentiality of Alcohol and Drug Abuse Patient Records regulations: The Federal rules restrict any use of the information to criminally investigate or prosecute any alcohol or drug abuse patient.[facility]In the event this information is protected by the Federal Confidentiality of Alcohol and Drug Abuse Patient Records regulations: The Federal rules restrict any use of the information to criminally investigate or prosecute any alcohol or drug abuse patient.[facility]In the event this information is protected by the Federal Confidentiality of Alcohol and Drug Abuse Patient Records regulations: The Federal rules restrict any use of the information to criminally investigate or prosecute any alcohol or drug abuse patient.[facility]In the event this information is protected by the Federal Confidentiality of Alcohol and Drug Abuse Patient Records regulations: The Federal rules restrict any use of the information to criminally investigate or prosecute any alcohol or drug abuse patient.[facility]In the event this information is protected by the Federal Confidentiality of Alcohol and Drug Abuse Patient Records regulations: The Federal rules restrict any use of the information to criminally investigate or prosecute any alcohol or drug abuse patient.[facility]In the event this information is protected by the Federal Confidentiality of Alcohol and Drug Abuse Patient Records regulations: The Federal rules restrict any use of the information to criminally investigate or prosecute any alcohol or drug abuse patient.[facility]In the event this information is protected by the Federal Confidentiality of Alcohol and Drug Abuse Patient Records regulations: The Federal rules restrict any use of the information to criminally investigate or prosecute any alcohol or drug abuse patient.[facility]In the event this information is protected by the Federal Confidentiality of Alcohol and Drug Abuse Patient Records regulations: The Federal rules restrict any use of the information to criminally investigate or prosecute any alcohol or drug abuse patient.[facility]In the event this information is protected by the Federal Confidentiality of Alcohol and Drug Abuse Patient Records regulations: The Federal rules restrict any use of the information to criminally investigate or prosecute any alcohol or drug abuse patient.[facility]In the event this information is protected by the Federal Confidentiality of Alcohol and Drug Abuse Patient Records regulations: The Federal rules restrict any use of the information to criminally investigate or prosecute any alcohol or drug abuse patient.[facility]In the event this information is protected by the Federal Confidentiality of Alcohol and Drug Abuse Patient Records regulations: The Federal rules restrict any use of the information to criminally investigate or prosecute any alcohol or drug abuse patient.[facility]In the event this information is protected by the Federal Confidentiality of Alcohol and Drug Abuse Patient Records regulations: The Federal rules restrict any use of the information to criminally investigate or prosecute any alcohol or drug abuse patient.[facility]In the event this information is protected by the Federal Confidentiality of Alcohol and Drug Abuse Patient Records regulations: The Federal rules restrict any use of the information to criminally investigate or prosecute any alcohol or drug abuse patient.[facility]In the event this information is protected by the Federal Confidentiality of Alcohol and Drug Abuse Patient Records regulations: The Federal rules restrict any use of the information to criminally investigate or prosecute any alcohol or drug abuse patient.[facility]In the event this information is protected by the Federal Confidentiality of Alcohol and Drug Abuse Patient Records regulations: The Federal rules restrict any use of the information to criminally investigate or prosecute any alcohol or drug abuse patient.[facility]In the event this information is protected by the Federal Confidentiality of Alcohol and Drug Abuse Patient Records regulations: The Federal rules restrict any use of the information to criminally investigate or prosecute any alcohol or drug abuse patient.[facility]In the event this information is protected by the Federal Confidentiality of Alcohol and Drug Abuse Patient Records regulations: The Federal rules restrict any use of the information to criminally investigate or prosecute any alcohol or drug abuse patient.[facility]In the event this information is protected by the Federal Confidentiality of Alcohol and Drug Abuse Patient Records regulations: The Federal rules restrict any use of the information to criminally investigate or prosecute any alcohol or drug abuse patient.[facility]In the event this information is protected by the Federal Confidentiality of Alcohol and Drug Abuse Patient Records regulations: The Federal rules restrict any use of the information to criminally investigate or prosecute any alcohol or drug abuse patient.[facility]In the event this information is protected by the Federal Confidentiality of Alcohol and Drug Abuse Patient Records regulations: The Federal rules restrict any use of the information to criminally investigate or prosecute any alcohol or drug abuse patient.[facility]In the event this information is protected by the Federal Confidentiality of Alcohol and Drug Abuse Patient Records regulations: The Federal rules restrict any use of the information to criminally investigate or prosecute any alcohol or drug abuse patient.[facility]In the event this information is protected by the Federal Confidentiality of Alcohol and Drug Abuse Patient Records regulations: The Federal rules restrict any use of the information to criminally investigate or prosecute any alcohol or drug abuse patient.[facility] WestIn the event this information is protected by the Federal Confidentiality of Alcohol and Drug Abuse Patient Records regulations: The Federal rules restrict any use of the information to criminally investigate or prosecute any alcohol or drug abuse patient.[facility] WestIn the event this information is protected by the Federal Confidentiality of Alcohol and Drug Abuse Patient Records regulations: The Federal rules restrict any use of the information to criminally investigate or prosecute any alcohol or drug abuse patient.[facility] the event this information is protected by the Federal Confidentiality of Alcohol and Drug Abuse Patient Records regulations: The Federal rules restrict any use of the information to criminally investigate or prosecute any alcohol or drug abuse patient.[facility]In the event this information is protected by the Federal Confidentiality of Alcohol and Drug Abuse Patient Records regulations: The Federal rules restrict any use of the information to criminally investigate or prosecute any alcohol or drug abuse patient.[facility] WestIn the event this information is protected by the Federal Confidentiality of Alcohol and Drug Abuse Patient Records regulations: The Federal rules restrict any use of the information to criminally investigate or prosecute any alcohol or drug abuse patient.[facility] WestIn the event this information is protected by the Federal Confidentiality of Alcohol and Drug Abuse Patient Records regulations: The Federal rules restrict any use of the information to criminally investigate or prosecute any alcohol or drug abuse patient.[facility] WestIn the event this information is protected by the Federal Confidentiality of Alcohol and Drug Abuse Patient Records regulations: The Federal rules restrict any use of the information to criminally investigate or prosecute any alcohol or drug abuse patient.[facility] WestIn the event this information is protected by the Federal Confidentiality of Alcohol and Drug Abuse Patient Records regulations: The Federal rules restrict any use of the information to criminally investigate or prosecute any alcohol or drug abuse patient.[facility]In the event this information is protected by the Federal Confidentiality of Alcohol and Drug Abuse Patient Records regulations: The Federal rules restrict any use of the information to criminally investigate or prosecute any alcohol or drug abuse patient.[facility]In the event this information is protected by the Federal Confidentiality of Alcohol and Drug Abuse Patient Records regulations: The Federal rules restrict any use of the information to criminally investigate or prosecute any alcohol or drug abuse patient.[facility]In the event this information is protected by the Federal Confidentiality of Alcohol and Drug Abuse Patient Records regulations: The Federal rules restrict any use of the information to criminally investigate or prosecute any alcohol or drug abuse patient.[facility]In the event this information is protected by the Federal Confidentiality of Alcohol and Drug Abuse Patient Records regulations: The Federal rules restrict any use of the information to criminally investigate or prosecute any alcohol or drug abuse patient.[facility]In the event this information is protected by the Federal Confidentiality of Alcohol and Drug Abuse Patient Records regulations: The Federal rules restrict any use of the information to criminally investigate or prosecute any alcohol or drug abuse patient.[facility]In the event this information is protected by the Federal Confidentiality of Alcohol and Drug Abuse Patient Records regulations: The Federal rules restrict any use of the information to criminally investigate or prosecute any alcohol or drug abuse patient.[facility]In the event this information is protected by the Federal Confidentiality of Alcohol and Drug Abuse Patient Records regulations: The Federal rules restrict any use of the information to criminally investigate or prosecute any alcohol or drug abuse patient.[facility]In the event this information is protected by the Federal Confidentiality of Alcohol and Drug Abuse Patient Records regulations: The Federal rules restrict any use of the information to criminally investigate or prosecute any alcohol or drug abuse patient.[facility]In the event this information is protected by the Federal Confidentiality of Alcohol and Drug Abuse Patient Records regulations: The Federal rules restrict any use of the information to criminally investigate or prosecute any alcohol or drug abuse patient.[facility] the event this information is protected by the Federal Confidentiality of Alcohol and Drug Abuse Patient Records regulations: The Federal rules restrict any use of the information to criminally investigate or prosecute any alcohol or drug abuse patient.[facility]In the event this information is protected by the Federal Confidentiality of Alcohol and Drug Abuse Patient Records regulations: The Federal rules restrict any use of the information to criminally investigate or prosecute any alcohol or drug abuse patient.[facility]In the event this information is protected by the Federal Confidentiality of Alcohol and Drug Abuse Patient Records regulations: The Federal rules restrict any use of the information to criminally investigate or prosecute any alcohol or drug abuse patient.[facility]In the event this information is protected by the Federal Confidentiality of Alcohol and Drug Abuse Patient Records regulations: The Federal rules restrict any use of the information to criminally investigate or prosecute any alcohol or drug abuse patient.[facility]In the event this information is protected by the Federal Confidentiality of Alcohol and Drug Abuse Patient Records regulations: The Federal rules restrict any use of the information to criminally investigate or prosecute any alcohol or drug abuse patient.[facility] Reason for Visit (unrecogniz ed section and content) Reason Comments PT Discharge Specialty Diagnoses / Procedures Referred By Contac t Referred To Contact [facility] Diagnoses Plantar fasciitis of right foot Procedures PT REHAB FOLLOW UP ORDER THERAPEUTIC EXERCISES RE, EA 15 MIN. Aziza Thompson PA-C [address] [place] [address] Phone: tel: fax: [facility] [place] [address] Referral ID Status Reason Start Date Expiration Date Visits Requested Visits Authorized [id number] Authorized PCP Requested Referral Auto-Generate d Referral 07/21/2024 10/17/2024 3 3 Reason Comments Physical Therapy Specialty Diagnoses / Procedures Referred By Contac t Referred To Contact [facility] Diagnoses Lumbar back pain Spondylosis of lumbar region without myelopathy or radiculopathy Procedures PT REHAB FOLLOW UP ORDER THERAPEUTIC EXERCISES RE, EA 15 MIN. Quoc Mccracken, PT [address] [place] [address] [facility] [address] [place] [id number] Referral ID Status Reason Start Date Expiration Date Visits Requested Visits Authorized [id number] Authorized PCP Requested Referral Auto-Generate d Referral 01/26/2024 04/19/2024 8 8 Specialty Diagnoses / Procedures Referred By Contac t Referred To Contact PHYSICAL THERAPY Diagnoses Fall (on) (from) unspecified stairs and steps, subsequent encounter [W10.9XXD] Procedures Additional physical therapy approval needed through 02-17-2023 Remy Perez MD [address] [place] [address] [facility] [address] [place] [address] Referral ID Status Reason Start Date Expiration Date Visits Re quested Visits Authorized [id number] Closed 11/24/2022 02/24/2023 4 4 Referral ID Status Reason Start Date Expiration Date V isits Requested Visits Authorized [id number] Authorized 11/24/2022 02/24/2023 4 4 Reason Comments Results Reason Comments Musculoskeletal Problem left hand and fi ngers Reason Comments Results Reason Comments Recheck Specialty Diagnoses / Procedures Referred By Contac t Referred To Contact [facility] Diagnoses follow up Procedures follow up Remy Perez MD [address] [place] [address] [facility] [address] [place] [address] Referral ID Status Reason Start Date Expiration Date Visits Requested Visits Authorized [id number] Pending Review OON/Self Pay Override 11/01/2021 01/30/2022 [...] Left hand pain Left hand weakness Positive FELICIA (antinuclear antibody) Procedures CONSULT TO RHEUM/IMMUN DISEASE OFFICE/OUTPATIENT NEW HIGH MDM 60-74 MINUTES Aziza Thompson PA-C [address] [place] [address] Referral ID Status Reason Start Date Expiration Date Visits Requested Visits Authorized [id number] Pending Review PCP Requested Referral 12/27/2021 12/27/2022 [...] HIGH COMPLEX 45 MINS Aziza Thompson PA-C [address] [place] [address] [facility] [address] [place] [address] Referral ID Status Reason Start Date Expiration Date V isits Requested Visits Authorized [id number] Closed Auto-Generate d Referral 05/21/2022 06/23/2022 1 1 Reason Comments Yearly Exam Reason Comments Consult Screening for colon cancer Specialty Diagnoses / Procedures Referred By Contac t Referred To Contact General Surgery Diagnoses Screening for colon cancer Procedures CONSULT TO GENERAL SURGERY OFFICE/OUTPATIENT [facility] 60-74 MINUTES Aziza Thompson PA-C [address] [place] [address] Referral ID Status Reason Start Date Expiration Date Visits Requested Visits Authorized [id number] Pending Review PCP Requested Referral 06/19/2022 06/19/2023 1 1 Reason Onset Date Comments Refill Request 06/30/2022 Reason Comments ER F/U Reason Comments ER F/U Reason Comments Follow Up Reason Comments Behavioral Health Social Work Reason Comments Dislocation New Pain Specialty Diagnoses / Procedures Referred By Contac t Referred To Contact Orthopedics Diagnoses Acute pain of right shoulder Procedures CONSULT TO ORTHOPAEDICS OFFICE/OUTPATIENT [facility] 60-74 MINUTES Rupinder Goss APRN.PATIENT ACCOUNTS COORDINATOR [address] [place] [address] Referral ID Status Reason Start Date Expiration Date Visits Requested Visits Authorized [id number] Pending Review PCP Requested Referral 07/03/2022 07/03/2023 1 1 Specialty Diagnoses / Procedures Referred By Contac t Referred To Contact [facility] Diagnoses Lumbar back pain Procedures PT REHAB FOLLOW UP ORDER PT REHAB FOLLOW UP ORDER THERAPEUTIC EXERCISES RE, EA 15 MIN. Jeyson Norman [facility] [address] [place] [address] Referral ID Status Reason Start Date Expiration Date Visits Requested Visits Authorized [id number] Authorized PCP Requested Referral Auto-Generate d Referral 05/22/2022 10/17/2022 8 8 Specialty Diagnoses / Procedures Referred By Contac t Referred To Contact [facility] Diagnoses Lumbar back pain Procedures PT REHAB FOLLOW UP ORDER PT REHAB FOLLOW UP ORDER THERAPEUTIC EXERCISES RE, EA 15 MIN. Jeyson Norman [facility] [address] [place] [address] Reason Comments PT Progress Note Reason Comments [...] W/O CONTRAST MATERIAL Aziza Thompson PA-C [address] [place] [address] Ct [id number] Referral ID Status Reason Start Date Expiration Date V isits Requested Visits Authorized [id number] Closed Auto-Generate d Referral 05/19/2022 06/18/2023 1 [...] W/O CONTRAST MATERIAL Aziza Thompson PA-C [address] [place] [address] [place] [address] Referral ID Status Reason Start Date Expiration Date V isits Requested Visits Authorized [id number] Closed Auto-Generate d Referral 12/17/2023 02/13/2024 1 1 Reason Onset Date Comments Refill Request 12/23/2023 Specialty Diagnoses / Procedures Referred By Contac t Referred To Contact [facility] Diagnoses xray Procedures xray Self [facility] [address] [place] [address] Referral ID Status Reason Start Date Expiration Date Visits Requested Visits Authorized [id number] Outside PCP OON/Self Pay Override 11/04/2021 02/02/2022 1 1 Specialty Diagnoses / Procedures Referred By Contac t Referred To Contact [facility] Diagnoses Lumbar back pain Spondylosis of lumbar region without myelopathy or radiculopathy Procedures CONSULT TO PHYSICAL THERAPY PHYSICAL THERAPY EVALUATION HIGH COMPLEX 45 MINS Remy Perez MD [address] [place] [address] [facility] [address] [address] Referral ID Status Reason Start Date Expiration Date V isits Requested Visits Authorized [id number] Closed Auto-Generate d Referral 04/20/2023 04/19/2024 1 [...] EA 15 MIN. Quoc Mccracken, PT [address] [place] [address] [facility] [address] [address] Reason Comments Cough Sinus congestion, HSIEH , [...] COMPLEX 45 MINS Aziza Thompson PA-C [address] [place] [address] Phone: tel: fax: [facility] [address] [place] [address] Referral ID Status Reason Start Date Expiration Date V isits Requested Visits Authorized [id number] Closed Auto-Generate d Referral 04/20/2024 04/19/2025 1 1 Reason Onset Date Comments Results 07/19/2024 Reason Comments Patient Question Specialty Diagnoses / Procedures Referred By Contac t Referred To Contact [facility] Diagnoses Lumbar back pain Spondylosis of lumbar region without myelopathy or radiculopathy Procedures CONSULT TO PHYSICAL THERAPY PHYSICAL THERAPY EVALUATION HIGH COMPLEX 45 MINS Remy Perez MD [address] [place] [address] Phone: tel: fax: [facility] [address] [place] [address] Referral ID Status Reason Start Date Expiration Date V isits Requested Visits Authorized [id number] Closed Auto-Generate d Referral 04/20/2024 04/19/2025 1 1 Reason Comments Medicare Wellness Exam Reason Onset Date Comments Results 08/09/2024 Reason Comments Follow Up Blood pressure Reason Onset Date Comments Refill Request 09/14/2024 Reason Comments Follow Up Leg cramps Reason Comments Outside [id number] Ordered Reason Comments Received Outside Medical Records Podiatr y OV notes Reason Comments Recheck Follow up medication Reason Onset Date Comments Refill Request 10/14/2024 Reason Comments Outside Testing Reason Comments Outside Stress Test Reason Onset Date Comments Population Health Navigation Outreach 11/02/2024 [facility] (unrecognized sec tion and content) [employer] Relationship Specialty Start Date End Date Remy Perez MD [address] [place] [address] PCP - General Family Practice 11/15/21 [employer] Relationship Specialty Start Date End Date Remy Perez MD [address] [place] [address], [place] [address] PCP - General Family Practice 11/15/21 [employer] Relationship Specialty Start Date End Date Remy Perez MD [address] [place] [address], [place] [address] PCP - General Family Practice 11/15/21 [employer] Relationship Specialty Start Date End Date Remy Perez MD [address] [place] [address], [place] [address] PCP - General Family Practice 11/15/21 [employer] Relationship Specialty Start Date End Date Remy Perez MD [address] [place] [address], [place] [address] PCP - General Family Practice 11/15/21 [employer] Relationship Specialty Start Date End Date Remy Perez MD [address] [place] [address], [place] [address] PCP - General Family Practice 11/15/21 [employer] Se[employer] Relationship Specialty Start Date End Date Remy Perez MD [address] [place] [address] [place] [address] PCP - General Family Practice 11/15/21 [employer] Relationship Specialty Start Date End Date Remy Perez MD [address] [place] [address], [place] [address] PCP - General Family Practice 11/15/21 [employer] Se[employer] Relationship Specialty Start Date End Date Remy Perez MD [address] [place] [address], [place] [address] PCP - General Family Practice 11/15/21 [employer] Relationship Specialty Start Date End Date Remy Perez MD [address] [place] [address] PCP - General Family Practice 11/15/21 [employer] Relationship Specialty Start Date End Date Remy Perez MD [address] [place] [address] PCP - General Family Medicine 11/15/21 [employer] Relationship Specialty Start Date End Date Remy Perez MD [facility] [place] [address] PCP - General Family Medicine 11/15/21 [employer] Relationship Specialty Start Date End Date Remy Perez MD [facility] [place] [address] PCP - General Family Medicine 11/15/21 [employer] Se[employer] Relationship Specialty Start Date End Date Remy Perez MD [facility] [place] [address] PCP - General Family Medicine 11/15/21 [employer] Se[employer]iner Relationship Specialty Start Date End Date Remy Perez MD [facility] [place] [address] PCP - General Family Medicine 11/15/21 [employer] Se[employer] Relationship Specialty Start Date End Date Remy Perez MD [facility] [place] [address] PCP - General Family Medicine 11/15/21 [employer] Se[employer]iner Relationship Specialty Start Date End Date Remy Perez MD [facility] [place] [address] PCP - General Family Medicine 11/15/21 [employer] Se[employer]iner Relationship Specialty Start Date End Date Remy Perez MD [address] [place] [address], [place] [address] PCP - General Family Medicine 11/15/21 [employer] Se[employer] Relationship Specialty Start Date End Date Remy Perez MD [address] [place] [address] PCP - General Family Medicine 11/15/21 [employer] Relationship Specialty Start Date End Date Remy Perez MD [address] [place] [address] PCP - General Family Medicine 11/15/21 [employer] Se[employer] Relationship Specialty Start Date End Date Remy Perez MD [facility] [place] [address] PCP - General Family Medicine 11/15/21 [employer] Se[employer] Relationship Specialty Start Date End Date Remy Perez MD [facility] [place] [address] PCP - General Family Medicine 11/15/21 [employer] Se[employer] Joiner Relationship Specialty Start Date End Date Remy Perez MD [facility] [place] [address] PCP - General Family Medicine 11/15/21 Chain[employer] Se[employer] Joiner Relationship Specialty Start Date End Date Remy Perez MD [facility] [place] [address] PCP - General Family Medicine 11/15/21 [employer] Se[employer] Joiner Relationship Specialty Start Date End Date Remy Perez MD [facility] [place] [address] PCP - General Family Medicine 11/15/21 Chain[employer] Se[employer] Joiner Relationship Specialty Start Date End Date Remy Perez MD [facility] [place] [address] PCP - General Family Medicine 11/15/21 [employer] Relationship Specialty Start Date End Date Remy Perez MD [facility] [place] [address] PCP - General Family Medicine 11/15/21 Team Status: Active Member Role Status Dates Dr. Remy Perez MD Primary Care Provider Active Team Status: Inactive Member Role Status Dates Dr. Remy Perez MD Primary Care Provider Active Dr. Villa Youssef MD Emergency Provider Active [employer] Relationship Specialty Start Date End Date Remy Perez MD [address] [place] [address] PCP - General Family Medicine 11/15/21 [employer] Relationship Specialty Start Date End Date Remy Perez MD [facility] [place] [address] PCP - General Family Medicine 11/15/21 [employer] Se[employer]iner Relationship Specialty Start Date End Date Remy Perez MD [address] [place] [address], [place] [address] PCP - General Family Medicine 11/15/21 Chain[employer] Se[employer] Joiner Relationship Specialty Start Date End Date Remy Perez MD [facility] [place] [address] PCP - General Family Medicine 11/15/21 Chain[employer] Se[employer] Joiner Relationship Specialty Start Date End Date Remy Perez MD [address] [place] [address], [place] [address] PCP - General Family Medicine 11/15/21 Chainstitch Se[employer] Joiner Relationship Specialty Start Date End Date Remy Perez MD [facility] [place] [address] PCP - General Family Medicine 11/15/21 Chainstitch Se[employer] Joiner Relationship Specialty Start Date End Date Remy Perez MD [address] [place] [address], [place] [address] PCP - General Family Medicine 11/15/21 [employer] Se[employer] Joiner Relationship Specialty Start Date End Date Remy Perez MD [address] [place] [address], [place] [address] PCP - General Family Medicine 11/15/21 Chain[employer]ch Se[employer] Joiner Relationship Specialty Start Date End Date Remy Perez MD [address] [place] [address] PCP - General Family Medicine 11/15/21 Chain[employer]ch Se[employer] Joiner Relationship Specialty Start Date End Date Remy Perez MD [address] [place] [address] PCP - General Family Medicine 11/15/21 Chain[employer]ch Se[employer] Joiner Relationship Specialty Start Date End Date Remy Perez MD [address] [place] [address] PCP - General Family Medicine 11/15/21 Chain[employer]ch Se[employer] Joiner Relationship Specialty Start Date End Date Remy Perez MD [address] [place] [address] PCP - General Family Medicine 11/15/21 Chain[employer]ch Se[employer] Joiner Relationship Specialty Start Date End Date Remy Perez MD [address] [place] [address] PCP - General Family Medicine 11/15/21 Chain[employer]ch Se[employer] Joiner Relationship Specialty Start Date End Date Remy Perez MD [address] [place] [address] PCP - General Family Medicine 11/15/21 Chain[employer]ch Se[employer] Joiner Relationship Specialty Start Date End Date Remy Perez MD [address] [place] [address] PCP - General Family Medicine 11/15/21 Chain[employer]ch Se[employer] Joiner Relationship Specialty Start Date End Date Remy Perez MD [address] [place] [address] PCP - General Family Medicine 11/15/21 [employer] Se[employer]iner Relationship Specialty Start Date End Date Remy Perez MD [address] [place] [address] PCP - General Family Medicine 11/15/21 [employer] Se[employer] Joiner Relationship Specialty Start Date End Date Remy Perez MD [address] [place] [address] PCP - General Family Medicine 11/15/21 Chain[employer]ch Se[employer] Joiner Relationship Specialty Start Date End Date Remy Perez MD [address] [place] [address] PCP - General Family Medicine 11/15/21 Chain[employer]ch Se[employer] Joiner Relationship Specialty Start Date End Date Remy Perez MD [address] [place] [address] PCP - General Family Medicine 11/15/21 Chainstitch Se[employer] Joiner Relationship Specialty Start Date End Date Remy Perez MD [address] [place] [address] PCP - General Family Medicine 11/15/21 Chainstitch Seat Joiner Relationship Specialty Start Date End Date Remy Perez MD [address] [place] [address] PCP - General Family Medicine 11/15/21 Chainstitch Seat Joiner Relationship Specialty Start Date End Date Remy Perez MD [address] [place] [address] PCP - General Family Medicine 11/15/21 Chainstitch Seat Joiner Relationship Specialty Start Date End Date Remy Perez MD [address] [place] [address] PCP - General Family Medicine 11/15/21 Chainstitch Seat Joiner Relationship Specialty Start Date End Date Remy Perez MD [address] [place] [address] PCP - General Family Medicine 11/15/21 Chainstitch Se[employer] Joiner Relationship Specialty Start Date End Date Remy Perez MD [address] [place] [address] PCP - General Family Medicine 11/15/21 Chain[employer]ch Se[employer] Joiner Relationship Specialty Start Date End Date Remy Perez MD [address] [place] [address] PCP - General Family Medicine 11/15/21 Chainstitch Se[employer] Joiner Relationship Specialty Start Date End Date Remy Perez MD [address] [place] [address] PCP - General Family Medicine 11/15/21 Chain[employer]ch Se[employer] Joiner Relationship Specialty Start Date End Date Remy Perez MD [address] [place] [address] PCP - General Family Medicine 11/15/21 Chainstitch Se[employer] Joiner Relationship Specialty Start Date End Date Remy Perez MD [address] [place] [address] PCP - General Family Medicine 11/15/21 Chain[employer]ch Se[employer] Joiner Relationship Specialty Start Date End Date Remy Perez MD [address] [place] [address] PCP - General Family Medicine 11/15/21 Chain[employer]ch Seat Joiner Relationship Specialty Start Date End Date Remy Perez MD [address] [place] [address] PCP - General Family Medicine 11/15/21 [employer] Relationship Specialty Start Date End Date Remy Perez MD [address] [place] [address] PCP - General Family Medicine 11/15/21 Chainstitch Seat Joiner Relationship Specialty Start Date End Date Remy Perez MD [address] [place] [address] PCP - General Family Medicine 11/15/21 Chainstitch Seat Joiner Relationship Specialty Start Date End Date Remy Perez MD [address] [place] [address] PCP - General Family Medicine 11/15/21 Chainstitch Seat Joiner Relationship Specialty Start Date End Date Remy Perez MD [address] [place] [address] PCP - General Family Medicine 11/15/21 Chainstitch Seat Joiner Relationship Specialty Start Date End Date Remy Perez MD [address] [place] [address] PCP - General Family Medicine 11/15/21 Chainstitch Seat Joiner Relationship Specialty Start Date End Date Remy Perez MD [address] [place] [address] PCP - General Family Medicine 11/15/21 Chainstitch Seat Joiner Relationship Specialty Start Date End Date Remy Perez MD [address] [place] [address] PCP - General Family Medicine 11/15/21 Chainstitch Seat Joiner Relationship Specialty Start Date End Date Remy Perez MD [address] [place] [address] PCP - General Family Medicine 11/15/21 Chainstitch Seat Joiner Relationship Specialty Start Date End Date Remy Perez MD [address] [place] [address] PCP - General Family Medicine 11/15/21 Rupinder Goss APRN.PATIENT ACCOUNTS COORDINATOR [address] [place] [address] [employer] [facility] Family Medicine 03/26/24 Aziza Thompson PA-C [address] [place] [address] [employer] Safety Leader Family Medicine 03/26/24 Chainstitch Seat Joiner Relationship Specialty Start Date End Date Remy Perez MD [address] [place] [address] PCP - General Family Medicine 11/15/21 Rupinder Goss APRN.PATIENT ACCOUNTS COORDINATOR [address] [place] [address] [employer] Safety Leader Family Medicine 03/26/24 Aziza Thompson PA-C [address] [place] [address] Plant Safety Leader Family Medicine 03/26/24 Chainstitch Seat Joiner Relationship Specialty Start Date End Date Remy Perez MD [address] [place] [address] PCP - General Family Medicine 11/15/21 Rupinder Goss APRN.PATIENT ACCOUNTS COORDINATOR [address] [place] [address] [facility] Safety Leader Family Medicine 03/26/24 Aziza Thompson PA-C [address] [place] [address] [facility] Safety Leader Family Medicine 03/26/24 Chainstitch Seat Joiner Relationship Specialty Start Date End Date Remy Perez MD [address] [place] [address] PCP - General Family Medicine 11/15/21 Rupinder Goss, EVELIN.PATIENT ACCOUNTS COORDINATOR [address] [place] [address] [employer] Safety Leader Family Medicine 03/26/24 Aziza Thompson PA-C [address] [place] [address] Plant Safety Leader Family Medicine 03/26/24 Chainstitch Seat Joiner Relationship Specialty Start Date End Date Remy Perez MD [address] [place] [address] PCP - General Family Medicine 11/15/21 Rupinder Goss, EVELIN.PATIENT ACCOUNTS COORDINATOR [address] [place] [address] Plant Safety Leader Family Medicine 03/26/24 Aziza Thompson PA-C [address] [place] [address] Plant Safety Leader Family Medicine 03/26/24 Chainstitch Seat Joiner Relationship Specialty Start Date End Date Remy Perez MD [address] [place] [address] PCP - General Family Medicine 11/15/21 Rupinder Goss APRN.PATIENT ACCOUNTS COORDINATOR [address] [place] [address] [facility] Safety Leader Family Medicine 03/26/24 Aziza Thompson PA-C [address] [place] [address] Plant Safety Leader Family Medicine 03/26/24 Chainstitch Seat Joiner Relationship Specialty Start Date End Date Remy Perez MD [address] [place] [address] PCP - General Family Medicine 11/15/21 Rupinder Goss APRN.PATIENT ACCOUNTS COORDINATOR [address] [place] [address] Plant Safety Leader Family Medicine 03/26/24 Aziza Thompson PA-C [address] [place] [address] [facility] 03/[facility]/24 Chainstitch Seat Joiner Relationship Specialty Start Date End Date Remy Perez MD [address] [place] [address] PCP - General Family Medicine 11/15/21 Rupinder Goss COMMUNICATION ELECTRONIC TECHNICIAN.PATIENT ACCOUNTS COORDINATOR [address] [place] [address] [facility] Safety Leader Family Medicine 03/26/24 Aziza Thompson PA-C [address] [place] [address] Plant Safety Leader Family Medicine 03/26/24 Chainstitch Seat Joiner Relationship Specialty Start Date End Date Remy Perez MD [address] [place] [address] PCP - General Family Medicine 11/15/21 Rupinder Goss APRN.PATIENT ACCOUNTS COORDINATOR [address] [facility] [place] [address] Plant Safety Leader Family Medicine 03/26/24 Aziza Thompson PA-C [address] [place] [address] Plant Safety Leader Family Medicine 03/26/24 Chainstitch Seat Joiner Relationship Specialty Start Date End Date Remy Perez MD [address] [place] [address] PCP - General Family Medicine 11/15/21 Rupinder Goss APRN.PATIENT ACCOUNTS COORDINATOR [address] [facility] [place] [address] Plant Safety Leader Family Medicine 03/26/24 Aziza Thompson PA-C [address] [place] [address] Plant Safety Leader Family Medicine 03/26/24 Chainstitch Seat Joiner Relationship Specialty Start Date End Date Remy Perez MD [address] [place] [address] PCP - General Family Medicine 11/15/21 Rupinder Goss APRN.PATIENT ACCOUNTS COORDINATOR [address] [facility] [place] [address] Plant Safety Leader Family Medicine 03/26/24 Aziza Thompson PA-C [address] [place] [address] Plant Safety Leader Family Medicine 03/26/24 Chainstitch Seat Joiner Relationship Specialty Start Date End Date Remy Perez MD [address] [place] [address] PCP - General Family Medicine 11/15/21 Rupinder Goss APRN.PATIENT ACCOUNTS COORDINATOR [address] [place] [address] Plant Safety Leader Family Medicine 03/26/24 Aziza Thompson PA-C [address] [place] [address] Plant Safety Leader Family Medicine 03/26/24 Chainstitch Seat Joiner Relationship Specialty Start Date End Date Remy Perez MD [address] [place] [address] PCP - General Family Medicine 11/15/21 Rupinder Goss APRN.PATIENT ACCOUNTS COORDINATOR [address] [place] [address] Plant Safety Leader Family Medicine 03/26/24 Aziza Thompson PA-C [address] [place] [address] Plant Safety Leader Family Medicine 03/26/24 Chainstitch Seat Joiner Relationship Specialty Start Date End Date Remy Perez MD [address] [place] [address] PCP - General Family Medicine 11/15/21 Rupinder Goss APRN.PATIENT ACCOUNTS COORDINATOR [address] [place] [address] Plant Safety Leader Family Medicine 03/26/24 Aziza Thompson PA-C [address] [place] [address] Plant Safety Leader Family Medicine 03/26/24 Chainstitch Seat Joiner Relationship Specialty Start Date End Date Remy Perez MD [address] [place] [address] PCP - General Family Medicine 11/15/21 Rupinder Goss APRN.PATIENT ACCOUNTS COORDINATOR [address] [place] [address] Plant Safety Leader Family Medicine 03/26/24 Aziza Thompson PA-C [address] [place] [address] Plant Safety Leader Family Medicine 03/26/24 Chainstitch Seat Joiner Relationship Specialty Start Date End Date Remy Perez MD [address] [place] [address] PCP - General Family Medicine 11/15/21 Rupinder Goss, EVELIN.PATIENT ACCOUNTS COORDINATOR [address] [place] [address] [facility] Safety Leader Family Medicine 03/26/24 Aziza Thompson PA-C [address] [place] [address] Plant Safety Leader Family Medicine 03/26/24 Chainstitch Seat Joiner Relationship Specialty Start Date End Date Remy Perez MD [address] [place] [address] PCP - General Family Medicine 11/15/21 Rupinder Goss, COMMUNICATION ELECTRONIC TECHNICIAN.PATIENT ACCOUNTS COORDINATOR [address] [place] [address] [facility] Safety Leader Family Medicine 03/26/24 Aziza Thompson PA-C [address] [place] [address] Plant Safety Leader Family Medicine 03/26/24 Chainstitch Seat Joiner Relationship Specialty Start Date End Date Remy Perez MD [address] [place] [address] PCP - General Family Medicine 11/15/21 Rupinder Goss APRN.[facility] [address] [place] [address] Plant Safety Leader Family Medicine 03/26/24 Aziza Thompson PA-C [address] [place] [address] Plant Safety Leader Family Medicine 03/26/24 Chainstitch Seat Joiner Relationship Specialty Start Date End Date Remy Perez MD [address] [place] [address] PCP - General Family Medicine 11/15/21 Aziza Thompson PA-C [address] [place] [address] Plant Safety Leader Family Medicine 03/26/24 Chainstitch Seat Joiner Relationship Specialty Start Date End Date Remy Perez MD [address] [place] [address] PCP - General Family Medicine 11/15/21 Aziza Thompson PA-C [address] [place] [address] [facility] 03/26/24 Team Status: Inactive Member Role Status Dates Dr. Remy Perez MD Primary Care Provider Active Start: September 19, 2024 End: September 19, 2024 Dr. Remy Perez MD Referring Provider Active Start: September 19, 2024 End: September 19, 2024 Dr. Bg Goldstein MD Attending Provider Active Start: September 19, 2024 End: September 19, 2024 Chainstitch Seat Joiner Relationship Specialty Start Date End Date Remy Perez MD [address] [place] [address] PCP - General Family Medicine 11/15/21 Rupinder Goss, EVELIN.PATIENT ACCOUNTS COORDINATOR [address] [place] [address] [facility] 09/19/24 Aziza Thompson PA-C [address] [place] [address] [facility] 09/19/24 Team Status: Inactive Member Role Status Dates Dr. Remy Perez MD Primary Care Provider Active Start: September 19, 2024 End: September 19, 2024 Dr. Bg Goldstein MD Attending Provider Active Start: September 19, 2024 End: September 19, 2024 Dr. Bg Goldstein MD Referring Provider Active Start: September 19, 2024 End: September 19, 2024 Chainstitch Seat Joiner Relationship Specialty Start Date End Date Remy Perez MD [address] [place] [address] PCP - General Family Medicine 11/15/21 Rupinder Goss, EVELIN.PATIENT ACCOUNTS COORDINATOR [address] [place] [id number] [facility] 09/19/24 Aziza Thompson PA-C [address] [place] [address], [place] [address] [facility] 09/19/24 Chainstitch Seat Joiner Relationship Specialty Start Date End Date Remy Perez MD [address] [place] [address] PCP - General Family Medicine 11/15/21 Rupinder Goss APRN.PATIENT ACCOUNTS COORDINATOR [address] [place] [address] [facility] 09/19/24 Aziza Thompson PA-C [address] [place] [address] [facility] Safety [facility] Family Medicine 09/19/24 Chainstitch Seat Joiner Relationship Specialty Start Date End Date Remy Perez MD [address] [place] [address] PCP - General Family Medicine 11/15/21 Rupinder Goss APRN.PATIENT ACCOUNTS COORDINATOR [address] [place] [address] [facility] 09/19/24 Aziza Thompson PA-C [address] [place] [address] [facility] Family Medicine 09/19/24 Chainstitch Seat Joiner Relationship Specialty Start Date End Date Remy Perez MD [address] [place] [address] PCP - General Family Medicine 11/15/21 Rupinder Goss, COMMUNICATION ELECTRONIC TECHNICIAN.PATIENT ACCOUNTS COORDINATOR [address] [place] [address] [facility] 09/19/24 Aziza Thompson PA-C [address] [place], [place] [id number] [facility] 09/19/24 Chainstitch Seat Joiner Relationship Specialty Start Date End Date Remy Perez MD [address] [place], [place] [address] PCP - General Family Medicine 11/15/21 Rupinder Goss APRN.PATIENT ACCOUNTS COORDINATOR [address] [place], [place] [id number] [facility] 09/19/24 Aziza Thompson PA-C [address] [place], [place] [id number] [facility] 09/19/24 Team Status: Active Member Role/Relationship Status Dates Dr. Remy Perez MD Primary Care Provider Active Team Status: Inactive Member Role/Relationship Status Dates Dr. Remy Perez MD Primary Care Provider Active Start: September 19, 2024 End: September 19, 2024 Dr. Remy Perez MD Referring Provider Active Start: September 19, 2024 End: September 19, 2024 Dr. Bg oGldstein MD Attending Provider Active Start: September 19, 2024 End: September 19, 2024 Team Status: Inactive Member Role/Relationship Status Dates Dr. Remy Perez MD Primary Care Provider Active Start: September 19, 2024 End: September 19, 2024 Dr. Bg Goldstein MD Attending Provider Active Start: September 19, 2024 End: September 19, 2024 Dr. Bg Goldstein MD Referring Provider Active Start: September 19, 2024 End: September 19, 2024 Team Status: Active Member Role/Relationship Status Dates Dr. Remy Perez MD Primary Care Provider Active Start: October 26, 2024 Dr. Bg Goldstein MD Attending Provider Active Start: October 26, 2024 Team Status: Inactive Member Role/Relationship Status Dates Dr. Remy Perez MD Primary Care Provider Active Start: October 27, 2024 End: October 27, 2024 Dr. Bg Goldstein MD Attending Provider Active Start: October 27, 2024 End: October 27, 2024 Dr. Bg Goldstein MD Referring Provider Active Start: October 27, 2024 End: October 27, 2024 Team Status: Active Member Role/Relationship Status Dates Dr. Remy Perez MD Primary Care Provider Active Start: October 31, 2024 Dr. Bg Goldstein MD Attending Provider Active Start: October 31, 2024 Dr. Bg Goldstein MD Referring Provider Active Start: October 31, 2024 Dr. Bg Goldstein MD Other Provider Active Star t: October 31, 2024 INFORMATION SOURCE (unrecogn ized section and content) DATE CREATED AUTHOR 01/20/2022 [facility] DATE CREATED AUTHOR AUTHOR'S ORGANIZ ATION 11/03/[address] [facility] DATE CREATED AUTHOR AUTHOR'S ORGANIZ ATION 11/04/2024 [facility] FOR RECORDS PERTAINING TO PATIENTS WHO ARE [...] BE BASED ON THE PRIMARY CLINICAL RECORDS. [employer] provides no warranty or guarantee of the accuracy or completeness of information in this document.
[2024-11-08 21:45] LABS: Mucous, Urine 0 SEEN /hpf (<or=2+)
[2024-11-08 22:08] VITALS: BP 168/110; PULSE 84; RESP 19; TEMP 36.6; O2SAT 99
[2024-11-08 22:25] LABS: Color, Urine Yellow (Yellow); Glucose, Dipstick Normal (Normal); Ketone-Dipstick Negative (Negative); Leukocyte Esterase-Dipstick Negative /ul (Negative); Nitrite-Dipstick Negative (Negative); Occult Blood-Urine 50 /ul (Negative); Protein-Dipstick 30 mg/dl (Negative); Specific Gravity, Urine 1.010 (1.002-1.030); Urine Bilirubin Dipstick Negative (Negative)
[2024-11-08 22:48] LABS: Red Blood Cells-Urine 5-10 SEEN /hpf (0-5); Squamous Epithelial Cells - UA 0-5 SEEN /hpf (5-10)
[2024-11-08 23:39] VITALS: BP 155/106; PULSE 82; RESP 16; TEMP 36.6; O2SAT 99
== END 2024-11-08 23:40 | disposition home or self-care (01) ==
PROVIDERS: Emergency Provider Emergency Medicine; PCP Family Medicine; Visit Provider Emergency Medicine
DX: R10.32 Left lower quadrant pain (principal); R10.31 Right lower quadrant pain; I10 Essential (primary) hypertension; E78.2 Mixed hyperlipidemia; E89.0 Postprocedural hypothyroidism; K21.9 Gastro-esophageal reflux disease without esophagitis; F41.1 Generalized anxiety disorder; F32.A Depression, unspecified; M85.80 Other specified disorders of bone density and structure, unspecified site; G25.81 Restless legs syndrome; Z87.19 Personal history of other diseases of the digestive system; Z79.890 Hormone replacement therapy; Z79.899 Other long term (current) drug therapy
CPT/HCPCS: 74177; 80053; 81001; 83690; 85025; 96374; 96375; 96376; 99282; Q9967; A4216; J2405